=== PATIENT | female | born 1970 ===

== ENCOUNTER 2020-05-31 14:59 | Emergency (ER) | payer OTHER, SELFPAY ==
--- NOTE | 2020-05-31 15:46 | ED.GENADULT ---
HPI - General Adult General Stated complaint: hi bp Time Seen by Provider: 05/31/20 15:46 Related Data Allergies Allergy/AdvReac Type Severity Reaction Status Date / Time Penicillins [PENICILLINS] Allergy Intermediate RE [facility] Unverified 01/28/20 19:25 ING penicillin V Allergy Unknown Verified 01/09/19 00:00 sumatriptan [SUMATRIPTAN] AdvReac Severe PT STATES Unverified 01/28/20 19:25 HEART ATTACK Course Course Course Narrative: 1540-This is a rapid medical exam. 50 yo female to male (transgender) with past medical history of hypertension, intermittent compliance with medications. Since saturday feeling unwell, dizziness, headache, intermittent chest pain, blood pressure running 150-160's and labile at home. Been off hormones for 1 month. Will check labs, EKG, CXR. Additional HPI, ROS, PE to primary provider.
[2020-05-31 15:48] VITALS: BP 144/92; PULSE 70; RESP 18; TEMP 37.1; O2SAT 98; BMI 19.9
--- NOTE | 2020-05-31 15:49 | ECG_ITS ---
Test Reason : CP Blood Pressure : / mmHG Vent. Rate : 055 BPM Atrial Rate : 055 BPM P-R Int : 116 ms QRS Dur : 076 ms QT Int : 394 ms P-R-T Axes : 052 065 048 degrees QTc Int : 376 ms Sinus bradycardia Otherwise normal ECG No previous ECGs available Referred By: Kemi Figueroa Electronically Signed By:MANAS CARRASCO
--- NOTE | 2020-05-31 15:49 | XR_ITS ---
EXAMINATION: XR CHEST CLINICAL INFORMATION: Chest pain COMPARISON: Previous chest x-rays most recent July [address] September 2017 TECHNIQUE: 2 views of the chest were obtained. FINDINGS: The cardiac and mediastinal contours are stable. There is a 7 mm dense nodule at the right lung base that is stable compatible with a calcified granuloma. The lungs are otherwise clear. There is no pleural effusion or pneumothorax. Bony structures are unremarkable. XR/XR chest 2V IMPRESSION: No evidence for acute disease in the chest.
[2020-05-31 16:30] LABS: MANUAL DIFF FLAG NO
[2020-05-31 16:34] LABS: Basophils Absolute Auto 0.1 X10*3/uL (0.0-0.2); Basophils Percent Auto 0.5 % (0-2); Eosinophils Absolute Auto 0.1 X10*3/uL (0.0-0.4); Eosinophils Percent Auto 0.5 % (0-4); Hematocrit 45.8 % (37-47); Hemoglobin 15.5 g/dl (12.0-16.0); Imm Gran Abs Auto 0.03 X10*3/uL (0.00-0.03); Imm Gran Pct Auto 0.2 % (0.0-0.4); Lymphocytes Absolute Auto 4.2 X10*3/uL (1.2-4.9); Lymphocytes Percent Auto 34.1 % (20-40); Mean Corpuscular HGB Conc 33.8 g/dl (31.0-35.0); Mean Corpuscular Hemoglobin 30.6 pg (27.0-33.0); Mean Corpuscular Volume 90.3 fL (80-98); Mean Platelet Volume 9.3 fL (9.4-12.3); Monocytes Absolute Auto 0.8 X10*3/uL (0.1-1.2); Monocytes Percent Auto 6.1 % (2-11); Neutrophils Absolute Auto 7.3 X10*3/uL (2.0-8.3); Neutrophils Percent Auto 58.6 % (45-73); Platelet Count 315 X10*3/uL (160-400); Red Blood Count 5.07 X10*6/uL (4.20-5.50); Red Cell Distribution Width 13.4 % (11.0-16.0); White Blood Count 12.4 X10*3/uL (4.8-10.8)
[2020-05-31 16:37] LABS: INTERNATIONAL NORM RATIO 1.1 (0.9-1.1)
[2020-05-31 17:00] LABS: Anion Gap 13 (12-20); Blood Urea Nitrogen 12 mg/dL (9-16); Calcium 9.6 mg/dL (8.4-10.2); Carbon Dioxide 28 mmol/L (22-29); Chloride 103 mmol/L (96-108); Creatinine Clr Calc Pharmacy 71.7; Estimated Glomerular Filt Rate > 60; Glucose Random 81 mg/dL (60-115); Sodium 140 mmol/L (135-145)
[2020-05-31 17:07] LABS: Troponin-I High Sensitivity < 3.5 ng/L (<3.5-17.0)
== END 2020-05-31 22:38 | disposition left against medical advice (07) ==
PROVIDERS: Nurse Practitioner Family; Emergency Provider Emergency Medicine
DX: I10 Essential (primary) hypertension (principal); R00.2 Palpitations; F64.0 Transsexualism; Z79.899 Other long term (current) drug therapy
CPT/HCPCS: 36415; 71046; 80048; 84484; 85025; 85610; 93005; 99282; 99283

== ENCOUNTER → 2020-08-23 14:08 | Outpatient (BNVA) | payer OTHER, SELFPAY | PROVIDERS: PCP Family Medicine; Visit Provider Student in an Organized Health Care Education/Training Program | DX: M15.4 Erosive (osteo)arthritis (principal); F11.90 Opioid use, unspecified, uncomplicated | CPT/HCPCS: 99212 ==

== ENCOUNTER → 2020-10-17 14:24 | Outpatient (BNVA) | payer OTHER, SELFPAY | PROVIDERS: PCP Family Medicine; Visit Provider Anesthesiology | DX: M15.4 Erosive (osteo)arthritis (principal); F11.90 Opioid use, unspecified, uncomplicated | CPT/HCPCS: 99202 ==

== ENCOUNTER 2021-03-24 12:23 | Outpatient (REF) | payer SELFPAY ==
[2021-03-24 13:54] LABS: COVID-19 Test Negative (Negative)
== END 2021-03-24 12:24 | disposition home or self-care (01) ==
LOC: HO.LAB 12:23
PROVIDERS: Visit Provider Internal Medicine
DX: Z20.822 Contact with and (suspected) exposure to COVID-19 (principal)
CPT/HCPCS: 36415; 87635; C9803

== ENCOUNTER 2021-07-18 14:56 | Outpatient (REF) | payer OTHER, SELFPAY ==
--- NOTE | ~2021-07-18 | XR_ITS ---
EXAMINATION: XR HAND, LEFT CLINICAL INFORMATION: Pain. COMPARISON: None TECHNIQUE: PA, lateral, and oblique views of the left hand. FINDINGS: No fracture or dislocation is seen. There is arthritis at the IP joints, particularly the DIP joints of the 2nd through 5th fingers, PIP joint of the 5th finger and IP joint of the thumb. There is joint space narrowing and osteophyte formation. There may be some erosive changes at the DIP joints of the 2nd and 3rd fingers. There is severe arthritis at the 1st RETIREMENT joint with joint space narrowing and osteophyte formation. There may be ulnar-minus variance. There is slight dorsal angulation of the distal ulna appreciated on the lateral view. Joint spaces are otherwise normal. Soft tissues are normal. XR/XR hand LT min 3V IMPRESSION: Severe osteoarthritis at the IP joints and 1st RETIREMENT joint. There is question of erosive osteoarthritis at the DIP joints of the 2nd and 3rd fingers.
== END 2021-07-18 14:57 | disposition home or self-care (01) ==
LOC: HO.XRAY 14:56
PROVIDERS: Absent Provider Family Medicine; PCP Family Medicine; Visit Provider Nurse Practitioner Primary Care
DX: M19.90 Unspecified osteoarthritis, unspecified site (principal); M79.645 Pain in left finger(s)
CPT/HCPCS: 73130

== ENCOUNTER 2021-07-19 14:30 | Outpatient (REF) | payer OTHER, SELFPAY ==
[2021-07-19 16:46] LABS: TSH reflex Free T4 0.48 uIU/mL (0.32-4.0)
== END 2021-07-19 14:31 | disposition home or self-care (01) ==
LOC: HO.LAB 14:30
PROVIDERS: PCP Family Medicine; Referring Provider Family Medicine; Visit Provider Internal Medicine Cardiovascular Disease
DX: R00.2 Palpitations (principal)
CPT/HCPCS: 36415; 84443; 93005; 99202

== ENCOUNTER → 2021-08-23 13:12 | Outpatient (BNVA) | payer OTHER, SELFPAY | PROVIDERS: PCP Family Medicine; Visit Provider Nurse Practitioner Family | DX: M15.4 Erosive (osteo)arthritis (principal); F11.20 Opioid dependence, uncomplicated | CPT/HCPCS: 99212 ==

== ENCOUNTER → 2021-08-24 08:28 | Outpatient (BNVA) | payer OTHER, SELFPAY | PROVIDERS: PCP Family Medicine; Visit Provider Anesthesiology | DX: F11.20 Opioid dependence, uncomplicated (principal); M15.4 Erosive (osteo)arthritis | CPT/HCPCS: 99212 ==

== ENCOUNTER → 2021-09-04 09:34 | Outpatient (BNVA) | payer OTHER, SELFPAY | PROVIDERS: PCP Physician Assistant; Referring Provider Physician Assistant; Visit Provider Physician Assistant | DX: K21.9 Gastro-esophageal reflux disease without esophagitis (principal); K59.09 Other constipation; R10.9 Unspecified abdominal pain; R13.10 Dysphagia, unspecified; Z90.49 Acquired absence of other specified parts of digestive tract | CPT/HCPCS: 99202 ==

== ENCOUNTER → 2021-09-12 07:31 | Outpatient (REF) | payer OTHER, SELFPAY ==
--- NOTE | 2021-09-12 | HM_ITS ---
TEST PERFORMED: Cardiac event monitoring. REQUESTING PHYSICIAN: Dr. Castanon. ENROLLMENT: 09/12/2021 to 10/12/2021; 30 days. FINDINGS: In the above monitoring period, underlying rhythm was sinus. Heart rates ranged from 67 to 93 beats per minute. There is 1 episode of dizziness described, but that correlated with sinus rhythm. Otherwise, no arrhythmias documented during the above period. CONCLUSION: Study shows sinus rhythm only. No arrhythmias identified. MD SARMAD Tsang/ABDIAZIZ / [id number]
--- NOTE | 2021-09-12 07:37 | CA_ITS ---
Transthoracic Echocardiogram Patient (Last, First, Middle): Harriet Valdez (Deloris), Gender: Female Date of : 1970 Age: 51 Procedure Date: 09/12/2021 Procedure Type: Transthoracic Echocardiogram Location: OP Height: 162.56 cm Weight: 49.9 kg BSA: 1.52 m2 Heart Rate: bpm BP: 124 / 58 mmHg Beverage Manager: SB Referring MD: Fred Castanon MD Symptoms: R00.2 - Palpitations Study Quality: Good ECG Rhythm: Sinus Conclusions: - Normal left ventricular size, thickness, systolic function, and wall motion. The visually estimated ejection fraction is between 55-60%. - Normal right ventricular cavity size and systolic function. Findings Left Ventricle Normal left ventricular size, thickness, systolic function, and wall motion. The visually estimated ejection fraction is between 55-60%. Diastolic function is normal for age. Right Ventricle Normal right ventricular cavity size and systolic function. Atria Both atria are normal in size. Aortic Valve Normal aortic valve structure and function. There is no aortic valve stenosis. There is no aortic valve regurgitation. Mitral Valve Normal mitral valve structure and function. There is no mitral valve regurgitation. There is no mitral valve stenosis. Pulmonic Valve Normal pulmonic valve structure and function. Tricuspid Valve Normal tricuspid valve structure and function. There is no tricuspid valve regurgitation. Normal right atrial pressure. There is no evidence of pulmonary hypertension. Great Vessels All visible segments of the aorta are normal in size. The visualized portions of the pulmonary artery and branches are normal. Venous The inferior vena cava is normal in size and collapses greater than 50% with inspiration. Pericardium/Pleural There is no evidence of pericardial effusion. Prior Study Comparison No significant change compared to prior study dated: 09/17/2017. Measurements 2D Linear Measurements IVSd: 0.55 0.6-0.9/0.6-1.0 cm LVIDd: 4.77 3.9-5.3/4.2-5.9 cm LVIDd Index: 3.14 2.4-3.2/2.2-3.1 cm/m2 LVIDs: 3.32 2.0-3.6 cm LVPWd: 0.58 0.7-1.1 cm LA Diam: 2.60 2.7-3.8/3.0-4.0 cm LAIDs Index: 1.71 1.5-2.3 cm/m2 LV Mass: 100.61 67-162/88-224 g LV Mass Index: 66.19 43-95/49-115 g/m2 LVOT Diam: 2.00 3.0+(-)1.3 cm Mitral Valve MV Pk E: 0.57 MV PK A: 0.75 MV Decel Time: 173.00 E/A: 0.80 E'Lateral: 7.40 E'Medial: 5.11 E/E' Med: 11.10 E/E' Lat: 7.70 PHT: 51.00 MVA PHT: 4.31 Decel Geary: 3.30 Aortic Valve AoV Pk Kiel: 1.24 AoV Mn Kiel: 0.86 AoV VTI: 0.22 AoV Pk Grad: 6.00 Aov Mn Grad: 3.00 SANDI Cont.VTI: 2.48 LVOT LVOT Pk Kiel: 0.91 LVOT Mn Kiel: 0.59 LVOT VTI: 0.17 LVOT Pk Grad: 3.00 LVOT Mn Grad: 2.00 LVOT Diam: 2.00 LVOT Area: 3.14 Diastolic Function MV Pk E: 0.57 MV Pk A: 0.75 E/A: 0.80 E'Medial: 5.11 E/E' Med: 11.10 E' Laterial: 7.40 E/E' Lat: 7.70 Right Ventricle TAPSE (mm): 25.10 TVS' Kiel: 11.70 Tricuspid Valve TR Pk Kiel: 2.00 TR Pk Grad: 16.00 RA Press: 3.00 RVSP: 19.00 Great Vessels Aorta Sinus of Valsalva: 2.63 2.0-3.[address] Ridge: 2.46 1.7-3.4 cm Ao Asc: 2.80 2.1-3.4 cm Pulmonary Veins Pulm Vein S/D 1.70 Pulmonary Valve PV Pk Kiel: 0.75 Peak PV Grad: 2.00 Updated in Other Vendor System with Status of Final Fred Castanon MD electronically signed on 09/17/2021 12:11:55 AM with status of Final
== END ==
LOC: HO.CARD 07:31
PROVIDERS: PCP Physician Assistant; Visit Provider Internal Medicine Cardiovascular Disease
DX: R00.2 Palpitations (principal)
CPT/HCPCS: 93270; 93306

== ENCOUNTER 2021-10-16 07:35 | Outpatient (REF) | payer OTHER, SELFPAY ==
--- NOTE | ~2021-10-16 | MR_ITS ---
EXAMINATION: MR LUMBAR SPINE WITHOUT CONTRAST CLINICAL INFORMATION: 51-year-old with complaints of low back pain and left-sided lumbar radicular symptoms. Spondylosis without myelopathy or radiculopathy. COMPARISON: None TECHNIQUE: MRI of the lumbar spine was obtained using routine sequences without contrast. FINDINGS: Coronal Alignment: Very slight thoracolumbar levocurvature noted. Sagittal Alignment: Normal. Lumbosacral Junction: Normal. 5 nonrib-bearing lumbar-type vertebral bodies. Vertebral Bodies: Normal height. Disc Spaces and Endplates: Moderate disc space height loss at L4-L5 and L3-L4 with mild degrees of spondylosis at these levels. Remaining lumbar intervertebral discs demonstrate normal height and signal. Minimal disc desiccation noted at L4-L5 and L3-L4. Spinal Canal: No abnormal developmental findings. Bone Marrow: No significant marrow-replacing process or bone marrow edema. Conus Medullaris: Terminates at L1-L2. Morphology and signal is normal. Intradural Nerve Roots: Within normal limits. L5-S1: Normal disc contour. Moderate left-sided facet arthropathy. No canal or neuroforaminal stenosis. L4-L5: Mild diffuse disc bulging is noted with a superimposed small central extruded disc herniation with mild caudal migration and mild flattening of the central dural sac. Mild ligamentum flavum thickening is noted. There is a small right foraminal/extra foraminal disc herniation superimposed on disc bulging. No significant spinal canal stenosis. Mild bilateral neuroforaminal narrowing is noted, with right lateral disc protrusion abutting the exiting right L4 nerve root. L3-L4: Mild diffuse disc bulging is noted, with a superimposed left-sided foraminal/extra foraminal disc herniation, which contacts the extra foraminal segment of the exiting left L3 nerve root. Slight flattening of the ventral dural sac is noted with mild facet hypertrophic change on the left without significant central spinal canal stenosis. Mild left-sided neural foraminal narrowing is noted with slight narrowing of the left subarticular zone. L2-L3: No disc bulge or herniation. No significant facet arthrosis, canal or neuroforaminal stenosis. L1-L2: No disc bulge or herniation. No facet arthrosis, canal or neuroforaminal stenosis. T12-L1: Normal disc contour. No facet arthrosis, canal or neuroforaminal stenosis. Paraspinal/Retroperitoneal: The visualized paravertebral soft tissues are grossly unremarkable. MR/MR lumbar spine wo con IMPRESSION: 1. Discogenic degenerative changes at L4-L5 and L3-L4 as discussed above, with mild degrees of spondylosis and disc bulging at these levels, with the right sided foraminal/extraforaminal disc herniation at L4-L5 and small central extruded disc herniation at this level and left-sided foraminal/extra foraminal disc herniation at L3-L4. Slight encroachment on the extraforaminal right L4 nerve root and extraforaminal left L3 nerve root. No significant spinal canal stenosis. 2. Moderate left-sided facet arthropathy at L5-S1 and mild facet arthropathy on the left at L3-L4. Mild left-sided neural foraminal narrowing at L3-L4 and mild bilateral neural foraminal narrowing at L4-L5.
== END 2021-10-16 07:36 | disposition home or self-care (01) ==
LOC: HO.MRI 07:35
PROVIDERS: Visit Provider Anesthesiology
DX: M47.816 Spondylosis without myelopathy or radiculopathy, lumbar region (principal); M51.36 Other intervertebral disc degeneration, lumbar region
CPT/HCPCS: 72148

== ENCOUNTER 2021-10-19 14:00 | Outpatient (RCR) | payer OTHER, SELFPAY ==
--- NOTE | 2021-09-21 09:04 | MHC.OT.EP ---
[address] [phone] Occupational Therapy Plan of Care Date of Evaluation: 09/21/21 Diagnosis: B/L Erosive OA Assessment: 51 yo male (he/him) presents w/ worsening hand pain over the past few months. He has hx of OA and has been seen in OT before in 2019 w/ education and recommendations, but joints have worsened since then and has developed multiple Herberbens and Bouchards nodules on IPs. He reports very high resting pain and this worsens further with movement and even light use of hands. Deloris is very motivated and hopeful to reduce pain. He will benefit from continued OT for further education on joint protecion and activity modification, as well as pain management, edema management and progression of home exercise program. Frequency and Duration: The patient will be seen 2x/wk for 3 weeks Short Term Goals: Ind w/ HEP Ind w/ activity modifications to ease pain with functional use B/L gross grasp >35lb Resting pain <4/10 Pt to demo ease w/ light bimanual tasks (buttons, ties, zippers, etc) Application Assistant Goals: same as above Treatment Plan: Therapeutic Exercise Therapeutic Activity Home Exercise Program Splinting Patient Education Edema Control ADL Training Paraffin Fluidotherapy MHP Cold Packs Joint Mobilization Soft Tissue Mobilization Kinesiotaping Electronically Signed By: Maggie Sanchez OTR/L CHT Please Sign and return to therapist. Thank you once again for your referral.
--- NOTE | 2021-11-07 13:37 | MHC.OT.DC ---
[address] [phone] F: [phone] Occupational Therapy Discharge Note Provider: Thu Chou NP Diagnosis: B/L Erosive OA Date of Evaluation: 09/21/21 Date of Discharge: 11/07/21 Treatments to Date: 5 Cancellations to Date: 2 No Shows to Date: 2 Discharge Status: Independent with HEP Visit Non-compliance Discharge Summary: Deloris has been refered to OT for management of B/L erosive OA. They have done fairly well w/ carry over of joint protection techniques, splinting for comfort and protection, and home exercise to maintain mobility. They have missed their past four appointments and we will be discharging from services at this time. *has compression gloves, home wax unit, CMC orthoses, coban wrap for digits, Volteran cream Electronically Signed By: Maggie Sanchez OTR/L CHT Reviewed/agree with student documentation: Therapist: Please Sign and return to therapist, thank you for your referral.
== END 2021-11-07 13:38 | disposition home or self-care (01) ==
LOC: HO.OT 14:00
PROVIDERS: PCP Family Medicine; Visit Provider Nurse Practitioner Family
DX: M15.4 Erosive (osteo)arthritis (principal)
CPT/HCPCS: 29130; 97018; 97110; 97140; 97165; 97760

== ENCOUNTER 2021-11-24 09:05 | Outpatient (REF) | payer OTHER, SELFPAY ==
--- NOTE | ~2021-11-24 | XR_ITS ---
EXAMINATION: XR HAND, BILATERAL CLINICAL INFORMATION: Hand pain. COMPARISON: 07/18/2021, 09/18/2018, 01/15/2018. TECHNIQUE: 3 views of each hand. FINDINGS: LEFT HAND: There is no evidence of acute fracture or dislocation of the left hand. There is again noted to be severe degenerative change of the 1st carpometacarpal joint with loss of joint space, marginal sclerosis and prominent spurring with subchondral cyst formation. There is severe degenerative change with loss of joint space and articular surface irregularity involving the 2nd through 5th distal interphalangeal joints and the 5th proximal interphalangeal joint. Some spurring is seen about the 1st interphalangeal joint. There is spurring noted about the 4th proximal interphalangeal joint. These findings are unchanged from study of 07/18/2021 but show progression since study of 01/15/2018. RIGHT HAND: Three views of the right hand do not demonstrate any evidence of acute fracture or dislocation. Degenerative change with joint space narrowing and marginal spurring seen involving the 1st carpometacarpal joint. Joint space narrowing with articular irregularity is seen involving the 2nd through 5th proximal interphalangeal joints. There is also noted to be some degenerative spurring about the 5th proximal interphalangeal joint. There is progression in disease involving the 3rd distal interphalangeal joint compared to study of 01/15/2018. XR/XR hand LT min 3V IMPRESSION: Changes of osteoarthritis in both hands as described with primary involvement of the 1st carpometacarpal joint and distal interphalangeal joints.
--- NOTE | ~2021-11-24 | XR_ITS ---
EXAMINATION: XR HAND, BILATERAL CLINICAL INFORMATION: Hand pain. COMPARISON: 07/18/2021, 09/18/2018, 01/15/2018. TECHNIQUE: 3 views of each hand. FINDINGS: LEFT HAND: There is no evidence of acute fracture or dislocation of the left hand. There is again noted to be severe degenerative change of the 1st carpometacarpal joint with loss of joint space, marginal sclerosis and prominent spurring with subchondral cyst formation. There is severe degenerative change with loss of joint space and articular surface irregularity involving the 2nd through 5th distal interphalangeal joints and the 5th proximal interphalangeal joint. Some spurring is seen about the 1st interphalangeal joint. There is spurring noted about the 4th proximal interphalangeal joint. These findings are unchanged from study of 07/18/2021 but show progression since study of 01/15/2018. RIGHT HAND: Three views of the right hand do not demonstrate any evidence of acute fracture or dislocation. Degenerative change with joint space narrowing and marginal spurring seen involving the 1st carpometacarpal joint. Joint space narrowing with articular irregularity is seen involving the 2nd through 5th proximal interphalangeal joints. There is also noted to be some degenerative spurring about the 5th proximal interphalangeal joint. There is progression in disease involving the 3rd distal interphalangeal joint compared to study of 01/15/2018. XR/XR hand RT min 3V IMPRESSION: Changes of osteoarthritis in both hands as described with primary involvement of the 1st carpometacarpal joint and distal interphalangeal joints.
[2021-11-24 12:02] LABS: MANUAL DIFF FLAG NO
[2021-11-24 12:21] LABS: Basophils Percent Auto 0.2 % (0-2); Eosinophils Percent Auto 0.5 % (0-4); Hematocrit 45.5 % (37.0-47.0); Hemoglobin 14.7 g/dl (12.0-16.0); Imm Gran Abs Auto 0.03 X10*3/uL (0.00-0.03); Imm Gran Pct Auto 0.4 % (0.0-0.4); Lymphocytes Absolute Auto 2.1 X10*3/uL (1.2-4.9); Mean Corpuscular HGB Conc 32.3 g/dl (31.0-35.0); Mean Corpuscular Hemoglobin 29.3 pg (27.0-33.0); Mean Corpuscular Volume 90.6 fL (80.0-98.0); Mean Platelet Volume 9.2 fL (9.4-12.3); Monocytes Absolute Auto 0.3 X10*3/uL (0.1-1.2); Monocytes Percent Auto 4.1 % (2-11); Neutrophils Absolute Auto 5.9 x10*3/uL (2.0-8.3); Neutrophils Percent Auto 69.8 % (45-73); Platelet Count 317 X10*3/uL (160-400); Red Blood Count 5.02 X10*6/uL (4.20-5.50); White Blood Count 8.4 X10*3/uL (4.8-10.8)
[2021-11-24 12:36] LABS: Rheumatoid Factor < 15.0 IU/mL (<15.0)
[2021-11-24 12:41] LABS: Alanine Aminotransferase 17 U/L (0-31); Albumin Level 4.4 g/dL (3.5-5.0); Alkaline Phosphatase 78 U/L (39-117); Anion Gap 10 (12-20); Aspartate Amino Transferase 19 U/L (5-31); Bilirubin Total 0.5 mg/dL (0.0-1.0); Blood Urea Nitrogen 12 mg/dL (9-16); C Reactive Protein 0.08 mg/dL (< or = 0.50); Calcium 9.7 mg/dL (8.4-10.2); Carbon Dioxide 29 mmol/L (22-29); Chloride 106 mmol/L (96-108); Estimated Glomerular Filt Rate > 60; Glucose Random 94 mg/dL (60-115); Potassium 4.9 mmol/L (3.3-5.1); Sodium 140 mmol/L (135-145); Total Protein 7.4 g/dL (6.5-8.0)
[2021-11-24 13:06] LABS: Erythrocyte Sedimentation Rate 5 MM/HR (0-20)
[2021-11-28 14:07] LABS: Cyclic Citrullinated Peptide <16 UNITS
== END 2021-11-24 09:06 | disposition home or self-care (01) ==
LOC: HO.LAB 09:05
PROVIDERS: Physician Assistant; PCP Family Medicine; Visit Provider Nurse Practitioner Family
DX: M79.641 Pain in right hand (principal); M79.642 Pain in left hand; M15.4 Erosive (osteo)arthritis; M47.816 Spondylosis without myelopathy or radiculopathy, lumbar region; K21.9 Gastro-esophageal reflux disease without esophagitis; K59.09 Other constipation; R10.9 Unspecified abdominal pain; Z90.49 Acquired absence of other specified parts of digestive tract; K52.9 Noninfective gastroenteritis and colitis, unspecified
CPT/HCPCS: 36415; 73130; 80053; 85025; 85652; 86140; 86200; 86431; 99212

== ENCOUNTER → 2021-12-11 12:25 | Outpatient (BNVA) | payer OTHER, SELFPAY | PROVIDERS: PCP Family Medicine; Visit Provider Nurse Practitioner Family | DX: M15.4 Erosive (osteo)arthritis (principal); M25.512 Pain in left shoulder; M47.816 Spondylosis without myelopathy or radiculopathy, lumbar region | CPT/HCPCS: 99212 ==

== ENCOUNTER 2021-12-28 09:59 | Day surgery (SDC) | payer OTHER, SELFPAY ==
--- NOTE | 2021-12-27 13:03 | HO.ANESPROP2 ---
Documented by User: Soraida Browne NP 12/27/21 13:12 HPI - Anesthesia Eval Consult details Narrative: Deloris TONY transgender (he/him) 51yo M for Upper Endoscopy [facility] Active Problems Active Problems: All Active Problems (Updated 12/25/21 @ 09:23 by Joana Haq, RONALD) Chronic, continuous use of opioids (Acute) Palpitations (Acute) Abdominal pain (Acute) Chronic GERD (Acute) Chronic constipation (Acute) Dysphagia (Acute) History of cholecystectomy (Acute) Disc degeneration, lumbar (Acute) Spondylosis of lumbar spine (Acute) Erosive osteoarthritis of hands, bilateral (Acute) Past Medical History Medical History Arthritis Depression Disc degeneration, lumbar Dysphagia Erosive osteoarthritis of hands, bilateral GERD (gastroesophageal reflux disease) History of palpitations Hyperlipemia Hypertension Past heart attack Spondylosis of lumbar spine Family History Family History Mother Hypertension Breast cancer Maternal Grandmother Myocardial infarct Sister Heart problem Surgical History Surgical History H/O bilateral mastectomy H/O: hysterectomy History of cholecystectomy History of esophagogastroduodenoscopy (EGD) Hx of colonoscopy Social History Social History Alcohol intake: never Patient Tobacco Use Status: Former Tobacco user Use of substances other than those prescribed or required for medical reasons: Yes Substance Use Type: Marijuana Substance Use Frequency: Occasionally Advance Directives: No Advance Directives Information Provided: Yes Patient : No Meds Allergies Allergy/AdvReac Type Severity Reaction Status Date / Time Penicillins [PENICILLINS] Allergy Intermediate HIVES,SWELL Verified 12/11/21 12:35 ING sumatriptan [SUMATRIPTAN] AdvReac Severe PT STATES Verified 12/11/21 12:35 HEART ATTACK Home Medications Medication Instructions Recorded Confirmed Last Taken Type enalapril maleate 10 mg tablet 10 mg PO DAILY 08/23/20 12/11/21 Unknown History omeprazole 20 mg capsule,delayed 20 mg PO DAILY 08/23/20 12/11/21 Unknown History release buspirone 10 mg tablet 10 mg PO TID 12/11/21 12/11/21 Unknown History fluticasone propionate 50 1 spray intranasal DAILY 12/11/21 12/11/21 Unknown History mcg/actuation nasal spray,suspension testosterone cypionate 200 mg/mL 100 mg IM Q2W 12/11/21 12/11/21 Unknown History intramuscular oil Exam Exam Date and Time: December 27, 2021 1303 Pertinent Lab Results Pertinent Lab Results: Laboratory Tests 11/24/21 11/24/21 12:00 12:00 WBC 8.4 Hgb 14.7 Hct 45.5 Plt Count 317 Sodium 140 Potassium 4.9 Chloride 106 Carbon Dioxide 29 BUN 12 Creatinine 0.74 Narrative Narrative: EKG 07/2021 NSR, 67/min, nonspecific T wave abnormality, QTc 412 msec Holter 30 days 09/2021 CONCLUSION:? Study shows sinus rhythm only.? No arrhythmias identified. ECHO 09/2021 Conclusions: - Normal left ventricular size, thickness, systolic function, and wall motion. The visually estimated ejection fraction is between 55-60%.? - Normal right ventricular cavity size and systolic function.? ? Assessment and Plan Assessment Anesthesia Assessment: Chart Reviewed Documented by User: Kasia Hogue MD 12/28/21 12:39 [facility] Past Medical History Medical History Arthritis Depression Disc degeneration, lumbar Dysphagia Erosive osteoarthritis of hands, bilateral GERD (gastroesophageal reflux disease) History of palpitations Hyperlipemia Hypertension Past heart attack Spondylosis of lumbar spine Functional capacity: independent ambulation Patient : No Family History Family History Mother Hypertension Breast cancer Maternal Grandmother Myocardial infarct Sister Heart problem Family history of problems with anesthesia: No Surgical History Surgical History H/O bilateral mastectomy H/O: hysterectomy History of cholecystectomy History of esophagogastroduodenoscopy (EGD) Hx of colonoscopy History of Problems with Anesthesia: No Social History Social History Alcohol intake: never Patient Tobacco Use Status: Former Tobacco user Use of substances other than those prescribed or required for medical reasons: Yes Substance Use Type: Marijuana Substance Use Frequency: Occasionally Advance Directives: No Advance Directives Information Provided: Yes Patient : No Meds Allergies Allergy/AdvReac Type Severity Reaction Status Date / Time Penicillins [PENICILLINS] Allergy Intermediate HIVES,SWELL Verified 12/11/21 12:35 ING sumatriptan [SUMATRIPTAN] AdvReac Severe PT STATES Verified 12/11/21 12:35 HEART ATTACK Home Medications Medication Instructions Recorded Confirmed Last Taken Type enalapril maleate 10 mg tablet 10 mg PO DAILY 08/23/20 12/11/21 Unknown History omeprazole 20 mg capsule,delayed 20 mg PO DAILY 08/23/20 12/11/21 Unknown History release buspirone 10 mg tablet 10 mg PO TID 12/11/21 12/11/21 Unknown History fluticasone propionate 50 1 spray intranasal DAILY 12/11/21 12/11/21 Unknown History mcg/actuation nasal spray,suspension testosterone cypionate 200 mg/mL 100 mg IM Q2W 12/11/21 12/11/21 Unknown History intramuscular oil Exam Airway Mallampati Class: II TM Dist: >3cm Neck ROM: Full Heart: RRR Lungs: CTA Assessment and Plan Final Anesthetic Review Family History of Problems with Anesthesia: No History of Problems with Anesthesia: No ASA Class: II Final Preanesthetic Review: No Changes in Pt Med Stat, Meds/Allgs Chart Reviewed, Consent Obtained/Reviewed and Anes Risks/Benef Reviewed Patient Risk: Low Procedure Risk: Low Anesthetic Plan Anesthetic Plan: MAC: Disposition: Standard PACU
[2021-12-28 10:41] VITALS: BMI 18.3
--- NOTE | 2021-12-28 10:41 | MHC.SHP ---
Pre-Procedural Eval Section A Date of Service: 12/28/21 Section B Chief Complaint: dysphagia Relevant Family History (Specify if Yes): No Relevant Social History: Other (specify) (THC) Present Medications: see Short Stay Collaborative assessment Medical History: Significant History (Arthritis Depression Disc degeneration, lumbar Dysphagia Erosive osteoarthritis of hands, bilateral GERD (gastroesophageal reflux disease) History of palpitations Hyperlipemia Hypertension Past heart attack Spondylosis of lumbar spine) History of Previous Operations: Relevant previous surgery/procedure and date(s) (H/O bilateral mastectomy H/O: hysterectomy History of cholecystectomy History of esophagogastroduodenoscopy (EGD) Hx of colonoscopy) Allergies: Allergies Allergy/AdvReac Type Severity Reaction Status Date / Time Penicillins [PENICILLINS] Allergy Intermediate HIVES,SWELL Verified 12/11/21 12:35 ING sumatriptan [SUMATRIPTAN] AdvReac Severe PT STATES Verified 12/11/21 12:35 HEART ATTACK Review of Systems Sugical H&P ROS: Negative: Constitution, Cardiovascular, Respiratory, Neurological, Psychiatric, Hem-Onc, Allergic/Immunologic, Gastrointestinal, Genitourinary, Musculoskeletal, Integumentary, Endocrine and Eyes/Ears/Nose/Throat Exam Surgical H&P Exam: Normal: HEENT, Normal: Heart, Normal: Lungs, Normal: Extremities, Normal: Abdomen, Normal: Skin and Normal: Neurological Plan Diagnosis/Plan: Unchanged I have reviewed the history and physical and performed a pertinent physical examination on my patient. No changes have occurred unless specified.
[2021-12-28] MEDS: Lactated Ringers 1,000 ML 100 ML IVCONT (10:46)
[2021-12-28 10:48] VITALS: BP 110/70; PULSE 58; RESP 16; TEMP 36.2; O2SAT 99
--- NOTE | 2021-12-28 12:02 | W.PM.OPN ---
Operative Note Operative Note Date of Service: 12/28/21 Narrative: Procedure Description: EGD Indication: dysphagia Anesthesia: MAC FLEXIBLE TRANSORAL UPPER GASTROINTESTINAL ENDOSCOPY UPPER ENDOSCOPY Consent: Indications for the procedure and potential complications of bleeding, perforation, reaction to medications and missed diagnosis were discussed with the patient and informed consent was obtained. Instrument: Olympus GIF H 190 J mid size upper endoscope Monitoring: Vital signs and clinical assessment, continuous EKG monitoring, Pulse oximetry, Carbon Dioxide monitoring and blood pressure monitoring were done throughout the procedure. Procedure: The patient was placed in the left lateral decubitis position and pre-procedure medications were administered and a bite block was placed. The endoscope was inserted into the mouth and advanced under direct vision to the third part of duodenum. A careful inspection was made as the upper endoscope was withdrawn including a retroflexed examination of the proximal stomach; Findings and interventions are described below. Findings: Larynx:normal Esophagus: GE junction at 38 cm, diaphragm hiatus at 38 cm, mild esophagitis. dilation done to 16 mm at LES and UES with resistance felt but no tears seen. Stomach: Patchy gastric erythema. Biopsies were obtained. Grade 2 flap valve on retroflexed examination of the cardia. There was some retained food. The pyloric outlet was tight and dilated to 16 mm where resistance was felt but no tears. Duodenum: Normal bulb and descending duodenum, Intervention: Biopsies as noted above, balloon dilation of esophagus and pylorus Impression/Findings: esophageal dilation pyloric dilation gastritis PLAN: make sure patient is taking PPI, if taking can increase dose and see if helps symptoms
[2021-12-28 12:07] VITALS: BP 82/54; PULSE 86; RESP 16; TEMP 36.3; O2SAT 96
[2021-12-28 12:22] VITALS: BP 107/73; PULSE 55; RESP 16; O2SAT 98
[2021-12-28 12:37] VITALS: BP 117/77; PULSE 58; RESP 18; TEMP 36.3; O2SAT 96
--- NOTE | 2021-12-28 13:26 | HO.POSTANES ---
Post Anesthesia Evaluation Post Anesthesia Evaluation Vital Signs: Vital Signs Temp Pulse Resp BP Pulse Ox O2 Del Method 12/28/21 12:37 97.4 F 58 18 117/77 96 Room Air 12/28/21 12:22 55 16 107/73 98 Room Air 12/28/21 12:07 97.4 F 86 16 82/54 L 96 Room Air 12/28/21 10:48 97.1 F 58 16 110/70 99 Room Air Anesthesia: Monitored Mental Status: Awake Pain Control: Satisfactory Nausea/Vomiting: None Hydration: Adequate Anesthesia-Related Issues: No Anes. Related Issues
== END 2021-12-28 12:45 | disposition home or self-care (01) ==
PROVIDERS: PCP Family Medicine; Visit Provider Internal Medicine Gastroenterology
PROC: 0DJ08ZZ Inspection of Upper Intestinal Tract, Via Natural or Artificial Opening Endoscopic (ICD-10-PCS; CPT 43235; principal; 2021-12-28 11:20)
DX: R13.10 Dysphagia, unspecified (principal); K29.50 Unspecified chronic gastritis without bleeding; K20.80 Other esophagitis without bleeding; K21.9 Gastro-esophageal reflux disease without esophagitis; K44.9 Diaphragmatic hernia without obstruction or gangrene; K31.89 Other diseases of stomach and duodenum; K59.09 Other constipation; E78.5 Hyperlipidemia, unspecified; I10 Essential (primary) hypertension; I25.2 Old myocardial infarction; Z79.899 Other long term (current) drug therapy; Z88.0 Allergy status to penicillin; Z88.8 Allergy status to other drugs, medicaments and biological substances; Z87.891 Personal history of nicotine dependence; F12.90 Cannabis use, unspecified, uncomplicated; Z90.49 Acquired absence of other specified parts of digestive tract
CPT/HCPCS: 43249; 43245; 43239; 88305; 88342; C1726

== ENCOUNTER → 2022-01-22 15:11 | Outpatient (BNVA) | payer OTHER, SELFPAY | PROVIDERS: PCP Family Medicine; Referring Provider Family Medicine; Visit Provider Internal Medicine Cardiovascular Disease | DX: I95.9 Hypotension, unspecified (principal); R00.2 Palpitations | CPT/HCPCS: 93005; 99212 ==

== ENCOUNTER → 2022-02-01 08:43 | Outpatient (BNVA) | payer OTHER, SELFPAY | PROVIDERS: PCP Family Medicine; Referring Provider Family Medicine; Visit Provider Internal Medicine Gastroenterology | DX: Z11.0 Encounter for screening for intestinal infectious diseases (principal) | CPT/HCPCS: 99211 ==

== ENCOUNTER 2022-02-01 19:44 | Outpatient (REF) | payer OTHER, SELFPAY ==
[2022-02-04 14:58] LABS: H Pylori Breath Test Negative (Negative)
== END 2022-02-01 19:45 | disposition home or self-care (01) ==
LOC: HO.LNP 19:44
PROVIDERS: Visit Provider Internal Medicine Gastroenterology
DX: K21.9 Gastro-esophageal reflux disease without esophagitis (principal)
CPT/HCPCS: 83013

== ENCOUNTER → 2022-02-08 09:37 | Outpatient (BNVA) | payer OTHER, SELFPAY | PROVIDERS: PCP Family Medicine; Referring Provider Family Medicine; Visit Provider Physician Assistant | DX: K21.9 Gastro-esophageal reflux disease without esophagitis (principal); K59.09 Other constipation | CPT/HCPCS: 99212 ==

== ENCOUNTER → 2022-04-09 13:59 | Outpatient (BNVA) | payer OTHER, SELFPAY | PROVIDERS: PCP Family Medicine; Referring Provider Family Medicine; Visit Provider Nurse Practitioner Family | DX: M15.4 Erosive (osteo)arthritis (principal); M25.512 Pain in left shoulder; L98.9 Disorder of the skin and subcutaneous tissue, unspecified; M47.816 Spondylosis without myelopathy or radiculopathy, lumbar region | CPT/HCPCS: 99212 ==

== ENCOUNTER → 2022-10-02 14:52 | Outpatient (BNVA) | payer OTHER, SELFPAY | PROVIDERS: PCP Family Medicine; Visit Provider Nurse Practitioner Family | DX: M15.4 Erosive (osteo)arthritis (principal); M47.816 Spondylosis without myelopathy or radiculopathy, lumbar region; M25.561 Pain in right knee; M25.562 Pain in left knee; M51.36 Other intervertebral disc degeneration, lumbar region; M54.50 Low back pain, unspecified | CPT/HCPCS: 99212 ==

== ENCOUNTER 2022-10-11 10:42 | Outpatient (REF) | payer OTHER, SELFPAY ==
--- NOTE | ~2022-10-11 | XR_ITS ---
EXAMINATION: XR KNEE, BILATERAL CLINICAL INFORMATION: Pain. COMPARISON: None available. TECHNIQUE: 3 views of each knee. FINDINGS: RIGHT: Bone alignment is normal. No fracture or dislocation. Small osteophytes at the patellofemoral joint. No joint effusion. Small soft tissue ossifications posterior to the knee joint. Ossified intra-articular loose bodies cannot be excluded. LEFT: Bone alignment is normal. No fracture or dislocation. Small osteophytes at the patellofemoral joint. Small osteophytes at the quadriceps tendon insertion to the patella. No joint effusion. XR/XR knee LT 3V IMPRESSION: Right: Mild degenerative changes at the patellofemoral joint. Question ossified intra-articular loose bodies. No joint effusion. Left: Arthritis at the patellofemoral joint.
--- NOTE | ~2022-10-11 | XR_ITS ---
EXAMINATION: XR KNEE, BILATERAL CLINICAL INFORMATION: Pain. COMPARISON: None available. TECHNIQUE: 3 views of each knee. FINDINGS: RIGHT: Bone alignment is normal. No fracture or dislocation. Small osteophytes at the patellofemoral joint. No joint effusion. Small soft tissue ossifications posterior to the knee joint. Ossified intra-articular loose bodies cannot be excluded. LEFT: Bone alignment is normal. No fracture or dislocation. Small osteophytes at the patellofemoral joint. Small osteophytes at the quadriceps tendon insertion to the patella. No joint effusion. XR/XR knee RT 3V IMPRESSION: Right: Mild degenerative changes at the patellofemoral joint. Question ossified intra-articular loose bodies. No joint effusion. Left: Arthritis at the patellofemoral joint.
== END 2022-10-11 10:43 | disposition home or self-care (01) ==
LOC: HO.XRAY 10:42
PROVIDERS: PCP Family Medicine; Visit Provider Nurse Practitioner Family
DX: M25.561 Pain in right knee (principal); M25.562 Pain in left knee
CPT/HCPCS: 73562

== ENCOUNTER 2022-10-23 15:21 | Outpatient (REF) | payer OTHER, SELFPAY ==
--- NOTE | ~2022-10-23 | US_ITS ---
EXAMINATION: US SOFT TISSUE HEAD/NECK CLINICAL INFORMATION: Dysphagia, submandibular lymphadenopathy. COMPARISON: None available. TECHNIQUE: Linear transducer grayscale and color Doppler examination of the bilateral submandibular area and thyroid. FINDINGS: Sonographic evaluation performed for lymphadenopathy and submandibular region. Right submandibular gland normal with 1.7 x 0.4 x 0.4 cm and 0.8 x 0.3 x 0.4 cm reactive appearing lymph nodes in the vicinity. The left submandibular gland normal. There is single 1.2 x 0.6 x 0.6 cm lymph node adjacent to the gland, reactive appearing. Thyroid gland is unremarkable. US/US soft tiss head and/or neck IMPRESSION: Reactive appearing lymphadenopathy. No abnormalities in the thyroid gland or submandibular glands.
== END 2022-10-23 15:22 | disposition home or self-care (01) ==
LOC: HO.US 15:21
PROVIDERS: PCP Family Medicine; Visit Provider Nurse Practitioner Primary Care
DX: R13.10 Dysphagia, unspecified (principal); R59.0 Localized enlarged lymph nodes
CPT/HCPCS: 76536

== ENCOUNTER 2023-01-01 07:33 | Outpatient (REF) | payer OTHER, SELFPAY ==
--- NOTE | ~2023-01-01 | XR_ITS ---
EXAMINATION: XR LUMBOSACRAL SPINE CLINICAL INFORMATION: Lower back pain and left sciatica. COMPARISON: None available. TECHNIQUE: AP and lateral views of the lumbar spine and lateral view of the lumbosacral junction. FINDINGS: Vertebral body heights are normal. At L3-L4 and L4-L5, there is mild disc space narrowing, with anterior spondylosis. The remaining disc spaces are well-maintained. No acute fracture or spondylolisthesis is seen. There is facet arthropathy at L5-S1. There are aortoiliac atherosclerotic calcifications. A right upper quadrant surgical clip is seen. XR/XR lumbar spine 2-3V IMPRESSION: 1. At L3-L4 and L4-L5, there is mild degenerative disc disease, with spondylosis. 2. There is facet arthropathy at L5-S1.
== END 2023-01-01 07:34 | disposition home or self-care (01) ==
LOC: HO.XRAY 07:33
PROVIDERS: Visit Provider Pediatrics
DX: M54.42 Lumbago with sciatica, left side (principal)
CPT/HCPCS: 72100

== ENCOUNTER 2023-03-22 17:55 | Outpatient (REF) | payer OTHER, SELFPAY ==
[2023-03-25 10:58] LABS: CT PCR NOT DETECTED (Not Detect.); NG PCR NOT DETECTED (Not Detect.)
[2023-03-30 13:43] LABS: HPV mRNA E6/E7 rflx Not Detected (Not Detected)
== END 2023-03-22 17:56 | disposition home or self-care (01) ==
LOC: HO.HHCLNP 17:55
PROVIDERS: Family Medicine; Visit Provider Internal Medicine
DX: Z12.4 Encounter for screening for malignant neoplasm of cervix (principal); Z11.51 Encounter for screening for human papillomavirus (HPV); Z11.3 Encounter for screening for infections with a predominantly sexual mode of transmission
CPT/HCPCS: 0353U; 87480; 87510; 87624; 87660; 88142

== ENCOUNTER 2023-04-13 12:05 | Emergency (ER) | payer OTHER, SELFPAY ==
--- NOTE | 2023-04-13 | ECG_ITS ---
Test Reason : CHEST PAIN Blood Pressure : / mmHG Vent. Rate : 056 BPM Atrial Rate : 061 BPM P-R Int : 000 ms QRS Dur : 086 ms QT Int : 452 ms P-R-T Axes : 027 069 039 degrees QTc Int : 436 ms Normal sinus rhythm with competing junctional rhythm Otherwise normal ECG When compared with ECG of 31-MAY-2020 16:10, Competing junctional rhythm now present QT has lengthened Referred By: Surendra Uribe Electronically Signed By:DAI MCCULLOUGH MD
--- NOTE | ~2023-04-13 | CT_ITS ---
EXAMINATION: CT ABDOMEN AND PELVIS WITH CONTRAST CLINICAL INFORMATION: Left lower quadrant pain COMPARISON: CT abdomen pelvis 01/10/2018., Abdominal ultrasound 09/24/2018. TECHNIQUE: Multidetector volumetric images were obtained from the superior aspect of the liver through the pubic symphysis following administration 85 mL of Omnipaque 350 intravenous contrast. Sagittal and coronal reformatted images were obtained on the technologist's workstation. Oral contrast: No This CT examination was performed using dose optimization techniques as appropriate, variously including the following: *Automated exposure control *Adjustment of mA and/or kV according to patient size (this includes techniques or standardized protocols for targeted exams where dose is matched to indication/reason for exam; i.e. extremities or head) *Use of iterative reconstruction technique DLP: 295 mGy-cm FINDINGS: LUNG BASES: A 5 mm rounded densely calcified nodules present within the right lung base (1500 Hounsfield unit). The basis of dense calcification and in consideration of the Fleischner Society criteria, this finding is benign in appearance and warrants no additional imaging follow-up are LIVER, GALLBLADDER, AND BILIARY TREE: A 7 mm benign calcification is present in the caudate lobe. The liver is normal in size and capsular contour. Cholecystectomy clips are noted. PANCREAS: Unremarkable. SPLEEN: Unremarkable. ADRENAL GLANDS: Unremarkable. KIDNEYS AND URETERS: The kidneys are normal in size, shape, and attenuation. No hydronephrosis, hydroureter, or calculi seen. No perinephric stranding. BLADDER: Unremarkable. GASTROINTESTINAL TRACT: Moderate diverticulosis of the sigmoid colon and descending colon is noted. No colonic inflammatory changes noted. No free intraperitoneal fluid or gas collections visualized. No definitive abnormal mural intestinal mural thickening noted. The appendix is normal in appearance. Normal appearance of the terminal ileum. Normal appearance of the sigmoid and small bowel mesentery is. Normal appearance of the stomach and duodenum. ABDOMINAL WALL: A periumbilical hernia containing omental fat without associated inflammatory changes measures 1.5 cm in diameter. LYMPH NODES: Normal. VASCULAR: Moderate scattered atherosclerosis. PELVIC VISCERA: Uterus is not visualized. Soft tissue density which may represent residual cervix is noted. No adnexal lesions identified. OSSEOUS STRUCTURES: Mild intervertebral disc space narrowing and endplate osteophytosis of L4 and L4-L5 with partial visualization of at least mild posterior broad-based disc bulges at these same levels. CT/CT abdomen pelvis w IV con IMPRESSION: 1. No acute abnormalities identified. 2. Moderate diverticulosis of the descending and sigmoid colon. No evidence of acute diverticulitis. No free intraperitoneal fluid or gas collections. Normal appendix. 3. Status post cholecystectomy.
[2023-04-13 12:11] VITALS: BP 120/81; PULSE 67; RESP 16; TEMP 36.9; O2SAT 99; BMI 19.1
--- NOTE | 2023-04-13 12:11 | ED.ABDPAIN ---
HPI - Abdominal Pain General Chief Complaint: Abdominal Pain Stated Complaint: Abd pain/Nausea/Vomiting Time Seen by Provider: 04/13/23 17:33 Source: patient, RN notes reviewed, old records reviewed and microarray specialist Mode of arrival: ambulatory Limitations: language barrier History of Present Illness HPI narrative: 53-year-old biological l female who identifies as male presents for evaluation of lower abdominal pain, nausea. Patient reports 3 weeks of worsening left lower abdominal pain. He reports taking milk of magnesia with minimal improvement in his discomfort. He has had several small bowel movements. Reports subjective fevers and chills He states that he has seen his primary doctor for this and was reportedly planned for a CT scan which has not been done yet Patient reports a history of cholecystectomy but no other abdominal surgeries Denies any black or bloody stool. Related Data Home Medications Medication Instructions Recorded Confirmed buspirone 10 mg tablet 10 mg PO TID 12/11/21 04/09/22 fluticasone propionate 50 1 spray intranasal DAILY 12/11/21 04/09/22 mcg/actuation nasal spray,suspension testosterone cypionate 200 mg/mL 100 mg IM Q2W 12/11/21 04/09/22 intramuscular oil tramadol 50 mg tablet 50 mg PO TID PRN 04/09/22 04/09/22 baclofen 20 mg tablet 20 mg PO TID 10/02/22 Previous Rx's Medication Instructions Recorded polyethylene glycol 3350 17 17 g PO DAILY #510 grams 09/04/21 gram/dose oral powder (Miralax) dicyclomine 10 mg capsule 10 mg PO ONCE #30 caps 09/28/21 sucralfate 100 mg/mL oral 10 ml PO BID #420 mL 01/16/22 suspension (Carafate) omeprazole 20 mg capsule,delayed 20 mg PO BID 30 days #60 caps 02/08/22 release naproxen 250 mg tablet 250 mg PO BID pain #60 tabs 04/09/22 ondansetron 4 mg disintegrating 4 mg PO Q8H PRN nausea and 04/13/23 tablet vomiting #20 tabs Allergies Allergy/AdvReac Type Severity Reaction Status Date / Time Penicillins [PENICILLINS] Allergy Intermediate HIVES,SWELL Verified 04/13/23 12:11 ING sumatriptan [SUMATRIPTAN] AdvReac Severe PT STATES Verified 04/13/23 12:11 HEART ATTACK Review of Systems Constitutional: Reports chills, Reports fever(s) and Denies headache(s) Eyes: Denies blurry vision Denies headache(s) and Denies sore throat Cardiovascular: Denies chest pain and Denies dyspnea Respiratory: Denies cough and Denies dyspnea Gastrointestinal: Reports abdominal pain, Denies hematochezia, Reports constipation, Reports nausea and Reports vomiting Genitourinary: Denies difficulty voiding Musculoskeletal: Denies back pain Skin/Breast: Denies rash Denies headache(s) [facility] Past Medical History Medical History Arthritis Depression Disc degeneration, lumbar Dysphagia Erosive osteoarthritis of hands, bilateral GERD (gastroesophageal reflux disease) History of palpitations Hyperlipemia Hypertension Past heart attack Spondylosis of lumbar spine Surgical History H/O bilateral mastectomy H/O: hysterectomy History of cholecystectomy History of esophagogastroduodenoscopy (EGD) Hx of colonoscopy Family History Family History Mother Hypertension Breast cancer Maternal Grandmother Myocardial infarct Sister Heart problem Social History Social History Alcohol intake: current Alcohol intake frequency: holidays/special occasions only Patient Tobacco Use Status: Former Tobacco user Smoked in Last 30 Days: No Use of substances other than those prescribed or required for medical reasons: No Substance Use Type: Marijuana Advance Directives: No Advance Directives Information Provided: No Patient : No Physical Exam ED Vital Signs: Vital Signs - 24 hr 04/13/23 12:11 04/13/23 17:24 Temperature 98.5 F 97.7 F Pulse Rate 67 50 Respiratory Rate 16 18 Blood Pressure 120/81 115/79 Pulse Oximetry 99 100 Oxygen Delivery Method Room Air Room Air BMI result Body Mass Index 19.1 Const General: healthy appearing, comfortable, no acute distress, alert and awake Orientation/consciousness: patient oriented x3 HENMT Head: Yes normocephalic and Yes atraumatic Eyes Eyelids: Yes eyelids normal Conjunctivae: conjunctivae normal Sclerae: sclerae normal Corneas: corneas normal Pupils: Equal, round and reactive pupils present EOM: EOMs intact bilaterally Neck Neck: Yes full ROM Resp Effort & Inspection: normal respiratory effort, able to speak in complete sentences and not labored GI Inspection: No distended Palpation (GI): Soft to palpation, not firm, Tenderness to palpation present (GI) in the LLQ, no guarding and not rigid Auscultation: normoactive bowel sounds Skin General skin exam: no rashes or lesions noted and elasticity normal Neuro General: patient oriented x3 Cranial nerves: Yes Equal, round and reactive pupils present and Yes Bilaterally intact EOM present Cognition (Neuro): normal cognition Extrem Other: Moving all extremities well without any obvious deformities Course Course Course Narrative: This is an RME: Additional HPI, ROS, PE not included below will be deferred to primary provider. Patient is a 53-year-old transgender female to male with reported total hysterectomy, who presents emergency department for evaluation of 3 weeks for LLQ intestine pain, nausea, poor appetite. For the past 3 days pain is worse, having a hard time that he is eating and drinking, fevers. He is using medications to allow him to have a bowel movement, but only having very small movements. on exam had LLQ TTP, no rigidity, no guarding Plan: labs, urinalysis 15:30 presented to triage reporting persistent pain, offered Tylenol he however declines, states I need an IV for medicine, and to lay down my doctor says I need and MRI , became agitated and left the triage room. Reevaluation(s) Reevaluation #1: Patient's workup blood she unremarkable including labs and CT scan. She will be discharged to follow-up with GI Time: 20:38 Medical Decision Making Medical Decision Making [facility] Narrative: 53-year-old biological female who identifies as male presents for evaluation of left lower quadrant abdominal pain with nausea and constipation. Patient has a history of chronic constipation, GERD. He reports a history of H pylori which should not explain pain the left lower abdomen. Patient's labs are reassuring, will get a CT scan of the abdomen pelvis to evaluate for colitis/diverticulitis. UA is clear without sign of infection or hematuria Differential Diagnosis Differential Diagnoses: The differential diagnosis associated with the presentation includes Chronic constipation Abdominal pain Colitis Diverticulitis UTI Lab Data [facility] Lab Attestation statement: I reviewed the patient's lab results. No leukocytosis, patient's hemoglobin hematocrit actually slightly elevated at 16.1 48.2 respectively. Normal platelet count. No significant electrolyte abnormalities. 04/13/23 12:25 04/13/23 12:25 Labs: Lab Results 04/13/23 Range/Units 12:25 WBC 8.9 (4.8-10.8) X10*3/uL RBC 5.49 (4.20-5.50) X10*6/uL Hgb 16.1 H (12.0-16.0) g/dl Hct 48.2 H (37.0-47.0) % MCV 87.8 (80.0-98.0) fL MCH 29.3 (27.0-33.0) pg MCHC 33.4 (31.0-35.0) g/dl RDW 13.5 (11.0-16.0) % Plt Count 331 (160-400) X10*3/uL MPV 9.1 L (9.4-12.3) fL Immature Gran % (Auto) 0.2 (0.0-0.4) % Neut % (Auto) 55.6 (45-73) % Lymph % (Auto) 36.6 (20-40) % Trigg % (Auto) 6.3 (2-11) % Eos % (Auto) 0.7 (0-4) % Baso % (Auto) 0.6 (0-2) % Lymph # (Auto) 3.2 (1.2-4.9) X10*3/uL Trigg # (Auto) 0.6 (0.1-1.2) X10*3/uL Eos # (Auto) 0.1 (0.0-0.4) X10*3/uL Baso # (Auto) 0.1 (0.0-0.2) X10*3/uL Abs Immat Gran (auto) 0.02 (0.00-0.03) X10*3/uL Absolute Neuts (auto) 4.9 (2.0-8.3) x10*3/uL Absolute Nucleated RBC 0.000 (0.0-0.012) X10*3/uL Nucleated RBC % (auto) 0.0 (0.0-0.2) /100WBC Sodium 141 (135-145) mmol/L Potassium 4.8 (3.3-5.1) mmol/L Chloride 104 (96-108) mmol/L Carbon Dioxide 30 H (22-29) mmol/L Anion Gap 12 (12-20) BUN 15 (9-16) mg/dL Creatinine 0.87 (0.5-1.4) mg/dL Estim Creat Clear Calc 58.9 Estimated GFR > 60 Random Glucose 96 (60-115) mg/dL Calcium 9.9 (8.4-10.2) mg/dL Total Bilirubin 0.6 (0.0-1.0) mg/dL AST 22 (5-31) U/L ALT 18 (0-31) U/L Alkaline Phosphatase 76 (39-117) U/L Total Protein 8.1 H (6.5-8.0) g/dL Albumin 4.4 (3.5-5.0) g/dL Lipase 56 (8-78) U/L Urine Color Yellow Urine Appearance Clear Urine pH 6.0 (5.0-9.0) Ur Specific [place] 1.020 (1.005-1.025) Urine Protein Negative (Neg-Trace) mg/dL Urine Glucose (UA) Negative (Negative) mg/dL Urine Ketones Negative (Negative) mg/dL Urine Blood Negative (Negative) Urine Nitrite Negative (Negative) Ur Leukocyte Esterase Negative (Negative) Medications Administered Discontinued Medications Generic Name Dose Route Start Last Admin Trade Name Lamineq PRN Reason Stop Dose Admin Sodium Chloride 1,000 mls @ 999 mls/hr 04/13/23 18:00 04/13/23 18:51 Ns IV 04/13/23 19:00 999 mls/hr .Q1H1M KARLI Administration Iohexol 85 ml 04/13/23 19:22 04/13/23 19:22 Iohexol 350 Mg/Ml 100 Ml Infus..Btl IV 04/13/23 19:23 85 ml ONCE ONE Administration Morphine Sulfate 4 mg 04/13/23 17:59 04/13/23 18:51 Morphine Sulfate 4 Mg/Ml Cartridge IVPUSH 04/13/23 18:00 4 mg ONCE ONE Administration Protocol Ondansetron HCl 4 mg 04/13/23 17:59 04/13/23 18:51 Ondansetron Hcl 4 Mg/2 Ml Vial IVPUSH 04/13/23 18:00 4 mg ONCE ONE Administration Discharge Plan Discharge Clinical Impression: Abdominal pain Patient Disposition: Home, Self-Care Instructions: Abdominal Pain (ED) Additional Instructions: Your workup in the emergency room today was reassuring. Next this includes your blood work, CT scan the abdomen pelvis as well as her urine sample that was clear Use Zofran as needed for nausea or vomiting. Follow-up with GI for endoscopy/colonoscopy to evaluate for stomach ulcers Return for new or worsening symptoms Prescriptions: New ondansetron 4 mg tablet,disintegrating 4 mg PO Q8H PRN (Reason: nausea and vomiting) Qty: 20 0RF No Action dicyclomine 10 mg capsule 10 mg PO ONCE Qty: 30 3RF sucralfate [Carafate] 100 mg/mL suspension 10 ml PO BID Qty: 420 0RF buspirone 10 mg tablet 10 mg PO TID testosterone cypionate 200 mg/mL oil 100 mg IM Q2W fluticasone propionate 50 mcg/actuation spray,suspension 1 spray intranasal DAILY tramadol 50 mg tablet 50 mg PO TID PRN naproxen 250 mg tablet 250 mg PO BID Qty: 60 1RF baclofen 20 mg tablet 20 mg PO TID polyethylene glycol 3350 [Miralax] 17 gram/dose powder 17 g PO DAILY Qty: 510 2RF omeprazole 20 mg capsule,delayed release(DR/EC) 20 mg PO BID 30 Days Qty: 60 11RF Referrals: Manish Leone MD [Physician] - (chronic abdominal pain)
[2023-04-13 12:29] LABS: MANUAL DIFF FLAG NO
[2023-04-13 12:34] LABS: Appearance Urine Clear; Color Urine Yellow; Glucose Urine UA Negative (Negative); Leukocyte Esterase Urine Negative (Negative); Nitrite Urine Negative (Negative); Urine Blood Negative (Negative); Urine Ketones Negative (Negative); Urine Protein Negative (Neg-Trace)
[2023-04-13 12:41] LABS: Basophils Absolute Auto 0.1 X10*3/uL (0.0-0.2); Basophils Percent Auto 0.6 % (0-2); Eosinophils Absolute Auto 0.1 X10*3/uL (0.0-0.4); Eosinophils Percent Auto 0.7 % (0-4); Hematocrit 48.2 % (37.0-47.0); Hemoglobin 16.1 g/dl (12.0-16.0); Imm Gran Abs Auto 0.02 X10*3/uL (0.00-0.03); Imm Gran Pct Auto 0.2 % (0.0-0.4); Lymphocytes Absolute Auto 3.2 X10*3/uL (1.2-4.9); Lymphocytes Percent Auto 36.6 % (20-40); Mean Corpuscular HGB Conc 33.4 g/dl (31.0-35.0); Mean Corpuscular Hemoglobin 29.3 pg (27.0-33.0); Mean Corpuscular Volume 87.8 fL (80.0-98.0); Mean Platelet Volume 9.1 fL (9.4-12.3); Monocytes Absolute Auto 0.6 X10*3/uL (0.1-1.2); Monocytes Percent Auto 6.3 % (2-11); Neutrophils Absolute Auto 4.9 x10*3/uL (2.0-8.3); Neutrophils Percent Auto 55.6 % (45-73); Platelet Count 331 X10*3/uL (160-400); Red Blood Count 5.49 X10*6/uL (4.20-5.50); Red Cell Distribution Width 13.5 % (11.0-16.0); White Blood Count 8.9 X10*3/uL (4.8-10.8)
[2023-04-13 12:46] LABS: Alanine Aminotransferase 18 U/L (0-31); Albumin Level 4.4 g/dL (3.5-5.0); Alkaline Phosphatase 76 U/L (39-117); Anion Gap 12 (12-20); Aspartate Amino Transferase 22 U/L (5-31); Bilirubin Total 0.6 mg/dL (0.0-1.0); Blood Urea Nitrogen 15 mg/dL (9-16); Calcium 9.9 mg/dL (8.4-10.2); Carbon Dioxide 30 mmol/L (22-29); Chloride 104 mmol/L (96-108); Creatinine Clr Calc Pharmacy 58.9; Estimated Glomerular Filt Rate > 60; Glucose Random 96 mg/dL (60-115); Lipase 56 U/L (8-78); Potassium 4.8 mmol/L (3.3-5.1); Sodium 141 mmol/L (135-145); Total Protein 8.1 g/dL (6.5-8.0)
--- NOTE | 2023-04-13 16:27 | PC.NURSE ---
pt represented to triage reporting cont'd pain and needing to lie down in a bed, offered tylenol or ibuprofen PO, pt declined.
[2023-04-13 17:24] VITALS: BP 115/79; PULSE 50; RESP 18; TEMP 36.5; O2SAT 100
[2023-04-13] MEDS: ondansetron HCL 4 MG/2 ML VIAL IVPUSH (18:51)
[2023-04-13] MEDS: Morphine Sulfate 4 MG/ML CARTRIDGE IVPUSH (18:51)
[2023-04-13] MEDS: 0.9 % Sodium Chloride 1,000 ML 999 ML IV (18:51)
[2023-04-13] MEDS: iohexoL 350 MG/ML 100 ML INFUS..BTL 85 ML IV (19:22)
--- NOTE | 2023-04-13 19:39 | PC.NURSE ---
pt rang for nurse to ask for water and food; explained that at this time until CT scan results come back unable to provide food and water. pt became very angry yelling at this RN. stating unless you give me something now Im done. I know my body. you guys are doing nothing for me. attempted to speak to patient however he kept yelling over this RN. another staff member entered room and pt was just as verbally aggressive with her. this RN notified PA about what was going on. further explained that due to patient complaint of abd pain, nausea, vomiting and until the results from CT comes back he cannot have anything to eat or drink. pt increase in agitation and yelling at staff. requesting to leave however refused to have IV removed. pt then bypassed this RN and EDT to head for exit. unable to be redirected back to room. security was called however pt went back to room after PA agreed that pt could have ice chip. pt back in his room at this time.
== END 2023-04-13 21:00 | disposition home or self-care (01) ==
PROVIDERS: Nurse Practitioner Family; Emergency Provider Internal Medicine; PCP Family Medicine
DX: R10.32 Left lower quadrant pain (principal); Z90.49 Acquired absence of other specified parts of digestive tract; R11.2 Nausea with vomiting, unspecified; Z87.891 Personal history of nicotine dependence
CPT/HCPCS: 36415; 74177; 80053; 81003; 83690; 85025; 93005; 96374; 96375; 99284; J2270; J2405; Q9967

== ENCOUNTER → 2023-04-13 19:55 | Outpatient (BNV) | payer OTHER, SELFPAY | PROVIDERS: Emergency Provider Internal Medicine; PCP Family Medicine; Visit Provider Internal Medicine Cardiovascular Disease | DX: R07.9 Chest pain, unspecified (principal) | CPT/HCPCS: 93010 ==

== ENCOUNTER 2024-03-18 07:40 | Outpatient (REF) | payer OTHER, SELFPAY ==
[2024-03-18 08:50] LABS: Hematocrit 47.3 % (37.0-47.0); Hemoglobin 16.2 g/dl (12.0-16.0); Mean Corpuscular HGB Conc 34.2 g/dl (31.0-35.0); Mean Corpuscular Hemoglobin 30.3 pg (27.0-33.0); Mean Corpuscular Volume 88.6 fL (80.0-98.0); Mean Platelet Volume 9.5 fL (9.4-12.3); Platelet Count 294 X10*3/uL (160-400); Red Blood Count 5.34 X10*6/uL (4.20-5.50); Red Cell Distribution Width 14.2 % (11.0-16.0); White Blood Count 8.7 X10*3/uL (4.8-10.8)
[2024-03-18 09:43] LABS: Alanine Aminotransferase 23 U/L (0-31); Albumin Level 4.1 g/dL (3.5-5.0); Alkaline Phosphatase 80 U/L (39-117); Aspartate Amino Transferase 24 U/L (5-31); Bilirubin Direct 0.1 mg/dL (0.0-0.5); Bilirubin Total 0.4 mg/dL (0.0-1.0); Cholesterol 169 mg/dL (<200); HDL Cholesterol 56 mg/dL (>40); LDL Cholesterol Calculated 101 mg/dL (<100); Total Protein 7.3 g/dL (6.5-8.0); Triglycerides 61 mg/dL (<150)
[2024-03-18 10:13] LABS: HIV AB/AG Nonreactive (Nonreactive); HIV Num 1 0.05 S/CO (0.00-0.99)
[2024-03-18 10:14] LABS: Syphilis Screen Reactive (Nonreactive)
[2024-03-18 13:58] LABS: CT PCR NOT DETECTED (Not Detect.); NG PCR NOT DETECTED (Not Detect.)
[2024-03-22 15:25] LABS: RPR Quantitative Non-Reactive (Nonreactive); T.Pallidum Particle Agg Test Reactive (Nonreactive)
[2024-03-22 17:49] LABS: Testosterone, Total 1641 ng/dL (2-45)
== END 2024-03-18 07:41 | disposition home or self-care (01) ==
LOC: HO.LAB 07:40
PROVIDERS: PCP Family Medicine; Visit Provider Family Medicine
DX: F64.0 Transsexualism (principal); E78.5 Hyperlipidemia, unspecified; Z11.3 Encounter for screening for infections with a predominantly sexual mode of transmission
CPT/HCPCS: 36415; 80061; 80076; 84403; 85027; 86592; 86780; 87389; 87491; 87591

== ENCOUNTER 2024-04-03 12:54 | Outpatient (REF) | payer OTHER, SELFPAY ==
[2024-04-09 13:03] LABS: Testosterone, Total 142 ng/dL (2-45)
== END 2024-04-03 12:55 | disposition home or self-care (01) ==
LOC: HO.LAB 12:54
PROVIDERS: PCP Family Medicine; Visit Provider Family Medicine
DX: F64.0 Transsexualism (principal)
CPT/HCPCS: 36415; 84403

== ENCOUNTER 2024-04-20 14:11 | Outpatient (REF) | payer OTHER, SELFPAY ==
[2024-04-21 08:38] LABS: HBS Num1 > 1000.00 mIU/mL (0-7.99); HBc Num1 7.27 S/CO (0.00-0.79); HBsAGNum1 0.66 S/CO (0.00-0.99); Hepatitis B Surface Antigen Negative (Negative); ~HepC Num1 2.35 S/CO (0.00-0.79); ~Hepatitis B Surface Antibody REACTIVE (Nonreactive); ~Hepatitis C Antibody Reactive (Nonreactive)
[2024-04-21 13:26] LABS: HBc Num2 7.53 S/CO; HBc Num3 7.17 S/CO; Hepatitis B Core Antibody Reactive (Nonreactive)
[2024-04-21 13:59] LABS: HIV RNA PCR Qn Copies NOT DETECTED copies/mL (NOT DETECTED); HIV RNA PCR Qn Log Copies NOT DETECTED (NOT DETECTED)
[2024-04-24 14:13] LABS: HCV Log PCR <1.18 NOT DETECTED Log IU/mL (NOT DETECTED); HepC Viral Load <15 NOT DETECTED IU/mL (NOT DETECTED)
== END 2024-04-20 14:12 | disposition home or self-care (01) ==
LOC: HO.HHCL 14:11
PROVIDERS: Visit Provider Family Medicine
DX: Z11.4 Encounter for screening for human immunodeficiency virus [HIV] (principal); Z11.3 Encounter for screening for infections with a predominantly sexual mode of transmission; Z79.899 Other long term (current) drug therapy
CPT/HCPCS: 36415; 86704; 86706; 86803; 87340; 87522; 87536

== ENCOUNTER 2024-04-28 08:56 | Outpatient (RCR) | payer OTHER, SELFPAY | END 2024-05-12 15:15 | disposition home or self-care (01) | LOC: HO.PT 08:56 | PROVIDERS: PCP Family Medicine; Visit Provider Family Medicine | DX: M54.42 Lumbago with sciatica, left side (principal) | CPT/HCPCS: 97014; 97110; 97140; 97161 ==

== ENCOUNTER 2024-05-08 07:58 | Outpatient (REF) | payer OTHER, SELFPAY ==
--- NOTE | ~2024-05-08 | CT_ITS ---
CLINICAL HISTORY: Previous CT performed at [facility] showed multiple interdeterminate nodules CT chest without IV contrast. COMPARISON: None FINDINGS: Visualized thyroid is unremarkable. No supraclavicular or axillary lymphadenopathy. Ascending aorta and main pulmonary artery are normal in caliber. Coronary artery calcifications present within the LAD. Aortic annular calcifications. No pericardial effusion. Air-fluid level present within the mid thoracic esophagus. No mediastinal lymphadenopathy. No pleural effusion. No consolidation. Trachea and central airways are clear. No significant bronchial wall thickening. No bronchiectasis. Calcified granulomas present within the right lower lobe and left lower lobe. Mild spondylosis. No acute fracture or suspicious bone lesion. IMPRESSION: 1. No acute intrathoracic findings. Calcified granulomas present bilaterally. No suspicious pulmonary nodule identified. 2. Air-fluid level present within the midthoracic esophagus can be associated with gastroesophageal reflux disease and esophageal dysmotility. 3. Coronary artery atherosclerosis. This document has been electronically signed by: Juan Álvarez MD on 05/11/2024 16:47:03
== END 2024-05-08 07:59 | disposition home or self-care (01) ==
LOC: HO.CT 07:58
PROVIDERS: PCP Family Medicine; Visit Provider Family Medicine
DX: R91.8 Other nonspecific abnormal finding of lung field (principal)
CPT/HCPCS: 71250

== ENCOUNTER → 2024-05-08 08:00 | Outpatient (BNV) | payer OTHER, SELFPAY | PROVIDERS: PCP Family Medicine; Visit Provider Radiology Diagnostic Radiology | DX: J84.10 Pulmonary fibrosis, unspecified (principal) | CPT/HCPCS: 71250 ==

== ENCOUNTER 2024-05-21 15:22 | Outpatient (REF) | payer OTHER, SELFPAY ==
[2024-05-24 13:18] LABS: HIV RNA PCR Qn Copies NOT DETECTED copies/mL (NOT DETECTED); HIV RNA PCR Qn Log Copies NOT DETECTED (NOT DETECTED)
== END 2024-05-21 15:23 | disposition home or self-care (01) ==
LOC: HO.HHCL 15:22
PROVIDERS: Visit Provider Family Medicine
DX: Z79.899 Other long term (current) drug therapy (principal)
CPT/HCPCS: 36415; 87536

== ENCOUNTER 2024-05-26 12:38 | Outpatient (AMB) | payer OTHER, SELFPAY ==
--- NOTE | 2024-05-26 12:44 | A.OFFVIS_ITS ---
Vital Signs 3 05/26/24 12:45 Height 5 ft 4 in Weight 131 lb 13.383 oz BMI 22.6 BP 100/72 Blood Pressure Location Rt brachial Position Sitting Pulse 76 Intake Visit Reasons: Chronic GERD was a [facility] patient 30 mins Intake Note: Patient in office today for chronic GERD. CC: Patient reports that she is swallowing better but everything irritates her stomach. She c/o a lot of acid reflux but is not taking the Omeprazole every day because the Omeprazole is killing the munoz of my stomach . Patient would like to discuss EGD. Product Development Carpenter Required: Yes Product Development Carpenter Language: Algerian Allergies black pepper Allergy (Severe, Verified 05/26/24 12:51) Anaphylaxis Penicillins [PENICILLINS] Allergy (Intermediate, Verified 05/26/24 12:51) HIVES,SWELLING sumatriptan [SUMATRIPTAN] Adverse Reaction (Severe, Verified 05/26/24 12:51) PT STATES HEART ATTACK HPI HPI Chronic GERD was a [facility] patient 30 mins: Details: 54-year-old female here for initial evaluation, although she was seen in the past by Amy Kemp and has not been seen since 2021. Her primary care provider is [facility]. PMX Hypertension High cholesterol Lumbar degenerative disc disease Chronic constipation GERD Continuous use of opioids Erosive osteoarthritis of the hands * SURGICAL HISTORY Cholecystectomy Colonoscopy-2017 Mukesh negative study EGD-2021 her son with dilation; 2018 Mukesh with dilation Bilateral mastectomy Hysterectomy * ALLERGIES Penicillin Triptans * [facility] LABS: Laboratory Tests 03/18/24 08:01 WBC 8.7 Hgb 16.2 H Hct 47.3 H MCV 88.6 MCH 30.3 Plt Count 294 Total Bilirubin 0.4 AST 24 ALT 23 Alkaline Phosphatase 80 AMY LAST NOTE New omeprazole 20 mg PO BID 30 days 60 caps 11RF Patient Instructions: increase omeprazole 20mg bid avoid culprits encourage call questions or concerns EGD Findings: Larynx:normal Esophagus: GE junction at 38 cm, diaphragm hiatus at 38 cm, mild esophagitis. dilation done to 16 mm at LES and UES with resistance felt but no tears seen. Stomach: Patchy gastric erythema. Biopsies were obtained. Grade 2 flap valve on retroflexed examination of the cardia. There was some retained food. The pyloric outlet was tight and dilated to 16 mm where resistance was felt but no tears. Duodenum: Normal bulb and descending duodenum, Intervention: Biopsies as noted above, balloon dilation of esophagus and pylorus Impression/Findings: esophageal dilation pyloric dilation gastritis PLAN: make sure patient is taking PPI, if taking can increase dose and see if helps symptoms Biopsy Received: 12/28/21 Diagnosis Stomach, biopsy: Antral-type and oxyntic mucosa with moderate chronic inactive inflammation; no Helicobacter organisms seen COLONOSCOPY Findings: Terminal Ileum Multiple attempts to intubate the TI were unsuccessful Cecum Normal Ascending Colon Moderate diverticulosis Transverse Colon - Moderate diverticulosis Descending Colon Severe diverticulosis Sigmoid Colon Severe diverticulosis and submucosal brusing noted at 30 cms likely due to scope trauma Rectum Normal Anorectum - Moderate hemorrhoids Colon preparation: Good after flushing and suctioning Impression and Post Procedure Diagnosis: Colonoscopy Findings: No polyps detected Moderate to severe diverticulosis seen in the entire colon Moderate hemorrhoids on retroflexed exam. EGD 03/10/18 Findings: Larynx: Edema of arytenoid cartilages Esophagus: GE junction at 40 cms. No esophagitis or Rojas s. Moderate resistence to passage of the endoscope through LES without obvious stricture - biopsies were obtained. LES was dilated with a CRE Balloon at 15, 16.5 and 18 mm for 16 seconds each. Biopsies obtained from proximal esophagus to check for EOE. Stomach: Mild gastric erythema. Biopsies were obtained. Grade 2 flap valve on retroflexed examination of the cardia. Duodenum: Normal bulb and descending duodenum Intervention: Biopsies and balloon dilation to 53 F as noted above Impression and Post Procedure Diagnosis: Endoscopy Findings: LARYNX: Changes suggestive of LPRD ESOPHAGUS: Dysphagia ? distal esophageal stricture, EOE, motility disorder versus achalasia STOMACH: gastritis DUODENUM: Normal Plan: Await pathology results Continue present medications (Omeprazole at 20 mg PO once daily) BIOPSY 03/10/18 Received: 03/10/18 0 Submitted by: SID HARDEN MD MATERIAL RECEIVED: A. GASTRIC ANTRUM BX'S B. DISTAL ESOPHAGUS BX'S C. PROXIMAL ESOPHAGUS BX'S DIAGNOSIS 0 A. Stomach, antrum, biopsy: Moderate chronic inactive gastritis; no Helicobacter organisms seen. 0 B. Esophagus, distal, biopsy: Squamous epithelium within normal limits. c. Esophagus, proximal, biopsy: Squamous epithelium within normal limits. 0 COMMENT: Diagnostic features of eosinophilic esophagitis are not seen. NOTE: Immunostain for H. pylori is non-reactive. TODAY'S VISIT Algerian #Michelle Jones ([facility] and identifies as male) She initially presented to GI for dysphagia. She says she was told my throat closes involuntarily. She had a dilation that was helpful and this has been sustained. Now she has a very irritated stomach with everything she eats and I have a lot of gases, this is both belching and flatulence. She also has borborygmus. She had trouble gaining weight. She may eat well one day, but then the sx will exacerbate the next day. She has trouble taking the omeprazole r/t the size of the capsule and she feels it increases her nausea although it helps with her HB. Her stools are normal and formed. She has had some relief with the use of bentyl. She says she wants to have an EGD/colonoscopy - but she had an EGD for the same sx in 2018 that was relatively unremarkable, and a colonoscopy that was the same. She says she has a personal history of polyps in [place] and her mother had colon polyps. Her problems seemed to have started in 2013 when she was in [place]. Her sister has similar sx but also has NIDDM. HEr pain is a burning in the epigastrum and esophagus/chest, but in the LLQ she has pain about twice a month with diarrhea - the LLQ pain is described as a squeezing pain. It is helped quite a lot with bentyl, but she was on rx'ed one a day and she would wait until she was in severe pain before taking. She also has extremely good sx control when she was on a short course of sucralfate liquid. This really points towards bile reflux and gastritis. ROV 4 weeks. [facility] Medical History (Updated 05/26/24 @ 13:33 by MIHIR Perez) Chronic GERD Abdominal pain Palpitations Hypotension History of palpitations Dysphagia Disc degeneration, lumbar Spondylosis of lumbar spine Depression Past heart attack Hyperlipemia Erosive osteoarthritis of hands, bilateral Arthritis GERD (gastroesophageal reflux disease) Hypertension Surgical History History of cholecystectomy Hx of colonoscopy History of esophagogastroduodenoscopy (EGD) H/O bilateral mastectomy H/O: hysterectomy Family History Mother Hypertension Breast cancer Maternal Grandmother Myocardial infarct Skin cancer Sister Heart problem Breast cancer Family/Other Esophageal cancer Social History Alcohol intake: current Alcohol intake frequency: holidays/special occasions only Patient Tobacco Use Status: Former Tobacco user Substance Use Type: Marijuana Review of Systems Const Denies fatigue, Denies fever(s), Denies night sweats, Denies poor appetite, Denies weight loss and Reports other (Inability to gain weight) Eyes Details: glasses Reports requires corrective lenses ENT Reports Normal hearing present, Denies dental pain, Denies dysphagia, Denies hearing loss, Denies mouth pain, Denies odynophagia, Denies throat swelling, Denies tongue swelling and Reports other (Dentition adequate) Card Reports no additional complaints Resp Reports no additional complaints GI Details: Reports abdominal pain, Denies melena, Reports bloating, Denies hematochezia, Denies constipation, Denies GI cramping, Denies dysphagia, Denies excessive flatus, Denies early satiety, Reports heartburn, Denies diarrhea, Reports nausea, Denies odynophagia, Denies vomiting and Denies hematemesis Skin/Breast Denies pruritus, Denies lesions, Denies rash and Denies jaundice Neuro Reports Normal hearing present and Denies Abnormal speech present Endo Denies fatigue Aller/Immun Denies throat swelling and Denies tongue swelling Physical Exam Vital Signs: Last Vital Signs Pulse 76 05/26/24 12:45 BP 100/72 05/26/24 12:45 BMI result Body Mass Index 22.6 Const General: cooperative, no acute distress, well developed and well groomed Nutritional Appearance: well nourished and thin Orientation/consciousness: oriented to person, oriented to place and oriented to time Limitations: language barrier HEENT Head: Yes normocephalic and Yes atraumatic Eyes General: appearance normal, both eyes and all related structures Pupils: Equal, round and reactive pupils present Neck Neck: Yes normal visual inspection and Yes no lymphadenopathy Thyroid: Thyroid normal Chest Other: Patient has had gender reassignment surgery with cosmetic breast removal Resp Effort & Inspection: normal respiratory effort and able to speak in complete sentences Auscultation: clear to auscultation bilaterally Cardio Rate: regular rate Rhythm: regular rhythm Heart sounds: Normal, physiologic split S2 sound present Peripheral pulses: radial pulses present and posterior tibial pulses present GI Inspection: No distended and No Abdominal panniculus present Palpation (GI): Soft to palpation, Tenderness to palpation present (GI) in the LLQ, no guarding, not rigid and No hepatosplenomegaly present Percussion: Yes normal to percussion Auscultation: normal bowel sounds Rectal Exam - Female: deferred Abdomen image: 2 1. surgical scar Skin General skin exam: no rashes or lesions noted, turgor normal, skin not dry, no jaundice, No spider nevi and no striae Rashes: no rashes Nails: normal Neuro General: oriented to person, oriented to place and oriented to time Cranial nerves: Yes Equal, round and reactive pupils present and Yes Normal hearing present Speech: No Abnormal speech present Extrem General: Yes normal to inspection, No clubbing, No cyanosis and No edema Psych Appearance: grossly normal and well kempt Mental Status: mental status grossly normal Speech and movement: Normal speech and movement present Affect: normal affect Attitude: cooperative Thought process: Normal thought process present and not confabulating Thought content: Normal thought content present Insight: Fair insight present (Psych) Judgement: Fair judgement present (Psych) Results Reviewed Results Reviewed: Laboratory Tests 03/18/24 08:01 WBC 8.7 Hgb 16.2 H Hct 47.3 H MCV 88.6 MCH 30.3 Plt Count 294 Total Bilirubin 0.4 AST 24 ALT 23 Alkaline Phosphatase 80 AMY LAST NOTE New omeprazole 20 mg PO BID 30 days 60 caps 11RF Patient Instructions: increase omeprazole 20mg bid avoid culprits encourage call questions or concerns EGD Findings: Larynx:normal Esophagus: GE junction at 38 cm, diaphragm hiatus at 38 cm, mild esophagitis. dilation done to 16 mm at LES and UES with resistance felt but no tears seen. Stomach: Patchy gastric erythema. Biopsies were obtained. Grade 2 flap valve on retroflexed examination of the cardia. There was some retained food. The pyloric outlet was tight and dilated to 16 mm where resistance was felt but no tears. Duodenum: Normal bulb and descending duodenum, Intervention: Biopsies as noted above, balloon dilation of esophagus and pylorus Impression/Findings: esophageal dilation pyloric dilation gastritis PLAN: make sure patient is taking PPI, if taking can increase dose and see if helps symptoms Biopsy Received: 12/28/21 Diagnosis Stomach, biopsy: Antral-type and oxyntic mucosa with moderate chronic inactive inflammation; no Helicobacter organisms seen COLONOSCOPY Findings: Terminal Ileum Multiple attempts to intubate the TI were unsuccessful Cecum Normal Ascending Colon Moderate diverticulosis Transverse Colon - Moderate diverticulosis Descending Colon Severe diverticulosis Sigmoid Colon Severe diverticulosis and submucosal brusing noted at 30 cms likely due to scope trauma Rectum Normal Anorectum - Moderate hemorrhoids Colon preparation: Good after flushing and suctioning Impression and Post Procedure Diagnosis: Colonoscopy Findings: No polyps detected Moderate to severe diverticulosis seen in the entire colon Moderate hemorrhoids on retroflexed exam. EGD 03/10/18 Findings: Larynx: Edema of arytenoid cartilages Esophagus: GE junction at 40 cms. No esophagitis or Rojas s. Moderate resistence to passage of the endoscope through LES without obvious stricture - biopsies were obtained. LES was dilated with a CRE Balloon at 15, 16.5 and 18 mm for 16 seconds each. Biopsies obtained from proximal esophagus to check for EOE. Stomach: Mild gastric erythema. Biopsies were obtained. Grade 2 flap valve on retroflexed examination of the cardia. Duodenum: Normal bulb and descending duodenum Intervention: Biopsies and balloon dilation to 53 F as noted above Impression and Post Procedure Diagnosis: Endoscopy Findings: LARYNX: Changes suggestive of LPRD ESOPHAGUS: Dysphagia ? distal esophageal stricture, EOE, motility disorder versus achalasia STOMACH: gastritis DUODENUM: Normal Plan: Await pathology results Continue present medications (Omeprazole at 20 mg PO once daily) BIOPSY 03/10/18 Received: 03/10/18 0 Submitted by: SID HARDEN MD MATERIAL RECEIVED: A. GASTRIC ANTRUM BX'S B. DISTAL ESOPHAGUS BX'S C. PROXIMAL ESOPHAGUS BX'S DIAGNOSIS 0 A. Stomach, antrum, biopsy: Moderate chronic inactive gastritis; no Helicobacter organisms seen. 0 B. Esophagus, distal, biopsy: Squamous epithelium within normal limits. c. Esophagus, proximal, biopsy: Squamous epithelium within normal limits. 0 COMMENT: Diagnostic features of eosinophilic esophagitis are not seen. NOTE: Immunostain for H. pylori is non-reactive. Assessment & Plan Assessment & Plan (1) Bile reflux gastritis: Code(s): K29.60 - Other gastritis without bleeding Category: Medical (2) Bile reflux esophagitis: Code(s): K21.00 - Gastro-esophageal reflux disease with esophagitis, without bleeding Category: Medical (3) Chronic constipation: Code(s): K59.09 - Other constipation Category: Medical (4) Chronic, continuous use of opioids: Code(s): F11.90 - Opioid use, unspecified, uncomplicated Category: Medical Plan Algerian #Michelle Live ([facility] and identifies as male) She initially presented to GI for dysphagia. She says she was told my throat closes involuntarily. She had a dilation that was helpful and this has been sustained. Now she has a very irritated stomach with everything she eats and I have a lot of gases, this is both belching and flatulence. She also has borborygmus. She had trouble gaining weight. She may eat well one day, but then the sx will exacerbate the next day. She has trouble taking the omeprazole r/t the size of the capsule and she feels it increases her nausea although it helps with her HB. Her stools are normal and formed. She has had some relief with the use of bentyl. She says she wants to have an EGD/colonoscopy - but she had an EGD for the same sx in 2018 that was relatively unremarkable, and a colonoscopy that was the same. She says she has a personal history of polyps in [place] and her mother had colon polyps. Her problems seemed to have started in 2013 when she was in [place]. Her sister has similar sx but also has NIDDM. HEr pain is a burning in the epigastrum and esophagus/chest, but in the LLQ she has pain about twice a month with diarrhea - the LLQ pain is described as a squeezing pain. It is helped quite a lot with bentyl, but she was on rx'ed one a day and she would wait until she was in severe pain before taking. She also has extremely good sx control when she was on a short course of sucralfate liquid. This really points towards bile reflux and gastritis. ROV 4 weeks. Medications: New 2 polyethylene glycol 3350 (Miralax) 238 grams PO ONCE 238 grams 0RF colonoscopy prep 1 day bisacodyl (Dulcolax (bisacodyl)) 10 mg (2 x 5 mg) PO BEDTIME 4 tabs 0RF 2 days Changed 2 From dicyclomine 10 mg PO ONCE 30 caps 3RF To dicyclomine 10 mg PO QID 120 caps 3RF From sucralfate (Carafate) 10 mL PO BID 420 mL 0RF K21.00 - Gastro-esophageal reflux disease with esophagitis, without bleeding, K29.60 - Other gastritis without bleeding To sucralfate (Carafate) 20 mL PO QNOON 420 mL 6RF K21.00 - Gastro-esophageal reflux disease with esophagitis, without bleeding, K29.60 - Other gastritis without bleeding Discontinued 2 ondansetron Discontinued Reason: Doctor's Order 4 mg PO Q8H PRN 20 tabs 0RF nausea and vomiting omeprazole Discontinued Reason: Doctor's Order 20 mg PO BID 30 days 60 caps 11RF Coding Level of Care Code Est Pt Level 4 (29698) Diagnoses Bile reflux gastritis K29.60 Bile reflux esophagitis K21.00 Chronic constipation K59.09 Chronic, continuous use of opioids F11.90 Time Spent (min) 40
[2024-05-26 12:45] VITALS: BP 100/72; PULSE 76; BMI 22.6
== END 2024-05-26 13:45 | disposition home or self-care (01) ==
PROVIDERS: PCP Family Medicine; Visit Provider Nurse Practitioner
DX: K29.60 Other gastritis without bleeding (principal); K21.00 Gastro-esophageal reflux disease with esophagitis, without bleeding; K59.09 Other constipation; F11.90 Opioid use, unspecified, uncomplicated
CPT/HCPCS: 99214

== ENCOUNTER → 2024-05-26 12:38 | Outpatient (BNVA) | payer OTHER, SELFPAY | PROVIDERS: PCP Family Medicine; Visit Provider Nurse Practitioner | DX: K29.60 Other gastritis without bleeding (principal); K21.00 Gastro-esophageal reflux disease with esophagitis, without bleeding; K59.09 Other constipation; F11.20 Opioid dependence, uncomplicated | CPT/HCPCS: 99212 ==

== ENCOUNTER 2024-06-04 12:16 | Outpatient (REF) | payer OTHER, SELFPAY ==
--- NOTE | ~2024-06-04 | XR_ITS ---
EXAMINATION: XR HIP, LEFT CLINICAL INFORMATION: chronic left hip pain COMPARISON: None available. TECHNIQUE: Two views of the left hip. FINDINGS: No fracture. Alignment is anatomic. Hip joint space is maintained. Soft tissues are unremarkable. XR/XR hip LT min 2V IMPRESSION: Unremarkable left hip exam Electronically signed by: Jimmy Pedroza MD 06/04/2024 01:04 PM [facility]
== END 2024-06-04 12:17 | disposition home or self-care (01) ==
LOC: HO.HHCX 12:16
PROVIDERS: Visit Provider Family Medicine
DX: M25.552 Pain in left hip (principal); G89.29 Other chronic pain
CPT/HCPCS: 73502

== ENCOUNTER → 2024-06-04 12:17 | Outpatient (BNV) | payer OTHER, SELFPAY | PROVIDERS: Visit Provider Radiology Diagnostic Radiology | DX: M25.552 Pain in left hip (principal) | CPT/HCPCS: 73502 ==

== ENCOUNTER 2024-07-20 09:57 | Outpatient (AMB) | payer OTHER, SELFPAY ==
--- NOTE | 2024-07-20 10:00 | MHC.OFFVIS ---
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, Awning Frame Maker Required: Yes Awning Frame Maker Language: Regulatory Associate Name: Nader/[id number] Accompanied by: Self / Same As Patient Allergies black pepper Allergy (Severe, Verified 05/26/24 12:51) Anaphylaxis Penicillins [PENICILLINS] Allergy (Intermediate, Verified 05/26/24 12:51) HIVES,SWELLING sumatriptan [SUMATRIPTAN] Adverse Reaction (Severe, Verified 05/26/24 12:51) PT STATES HEART ATTACK Medication List - Last Reconciled 07/20/24 by Fred Castanon MD cabotegravir ER (Apretude) 600 mg IM [id number] dicyclomine 10 mg PO QID testosterone cypionate 100 mg IM Q2W HPI Comments Details: 51-year-old transgender male (on Testosterone) who was previously seen in 2021 presenting with a new patient. Deloris was complaining of palpitations and ECHO and cardiac event monitor was normal at that time. There was concern for hypertension and enalapril was stopped at that time. Today Deloris returns for follow-up. He has been experiencing dyspnea on exertion apparently was a CT scan performed in 05/01/2024 which showed coronary calcifications. There were also calcified granulomas present bilaterally. He is a former smoker and quit 9 months ago. Twenty-three pack year smoking. Dyspnea on exertion with activities like going upstairs. No chest discomfort. On antiretrovirals. PENDING SALE TO [facility] Medical History (Updated 07/20/24 @ 10:25 by Fred Castanon MD) Chronic GERD Abdominal pain Palpitations Hypotension History of palpitations Dysphagia Disc degeneration, lumbar Spondylosis of lumbar spine Depression Past heart attack Hyperlipemia Erosive osteoarthritis of hands, bilateral Arthritis GERD (gastroesophageal reflux disease) Hypertension Surgical History History of cholecystectomy Hx of colonoscopy History of esophagogastroduodenoscopy (EGD) H/O bilateral mastectomy H/O: hysterectomy Family History Mother Hypertension Breast cancer Maternal Grandmother Myocardial infarct Skin cancer Sister Heart problem Breast cancer Family/Other Esophageal cancer Social History (Updated 07/20/24 @ 10:06 by Millie Lucas [facility]) Alcohol intake: never Patient Tobacco Use Status: Former Tobacco user Substance Use Type: Marijuana Review of Systems Const Denies chills, Denies fatigue, Denies fever(s), Denies frequent falls, Denies weakness, Denies weight gain and Denies weight loss ENT Denies dizziness Card Denies chest pain, Denies leg edema, Denies lightheadedness, Denies palpitations, Denies dyspnea, Denies dyspnea on exertion and Denies orthopnea Resp Denies cough, Denies dyspnea and Denies dyspnea on exertion GI Denies bloating and Denies change in bowel habits Musc Denies muscle weakness, Denies numbness and Denies tingling Neuro Denies dizziness, Denies frequent falls, Denies numbness, Denies tingling and Denies weakness Endo Denies fatigue and Denies palpitations Physical Exam Vital Signs: Last Vital Signs Pulse 62 07/20/24 10:03 BP 100/62 07/20/24 10:03 BMI result Body Mass Index 19.9 GENERAL APPEARANCE: in no acute distress, pleasant. NECK: no carotid bruit, no jugular venous distention. SKIN: no suspicious lesions, warm and dry. HEART: no murmurs, regular rate and rhythm. LUNGS: clear to auscultation bilaterally. ABDOMEN: soft, nontender. EXTREMITIES: no edema. PERIPHERAL PULSES: equal. NEUROLOGIC: No gross deficits, AAO X 3. Office Procedures EKG Details: Sinus rhythm 62 beats per minute, nonspecific T-wave changes, QTC of 383 milliseconds. [id number], Complete Assessment & Plan Assessment & Plan (1) Coronary artery calcification: Code(s): I25.10 - Atherosclerotic heart disease of [place] coronary artery without angina pectoris Category: Medical (2) LEE (dyspnea on exertion): Code(s): R06.09 - Other forms of dyspnea Category: Medical Plan 54-year-old transgender male here for dyspnea on exertion and coronary calcification noted on CT scan. He has consistent symptoms with activities like going uphill. He is also on antiretrovirals. We will arrange a stress Mibi (baseline ECG is abnormal with nonspecific T-wave changes). We will also arrange a echocardiogram. Will do a fasting lipid panel. We will see him back in 4 months. Thank you for allowing me to participate in the care of your patient. Please feel free to contact me if you have any questions. Orders: Orders NM cardiolite stress test Today R06.09 - Other forms of dyspnea CA echo transthorac w con Today R06.09 - Other forms of dyspnea CA stress test Today R06.09 - Other forms of dyspnea Lipid Panel Today I25.10 - Atherosclerotic heart disease of [place] coronary artery without angina pectoris Coding Level of Care Code New Pt Level 4 (63410) Diagnoses Coronary artery calcification I25.10 LEE (dyspnea on exertion) R06.09 CPT Codes EKG - CPT: 74235-[id number], Complete ([id number])
[2024-07-20 10:03] VITALS: BP 100/62; PULSE 62; BMI 19.9
--- OUTSIDE RECORDS SUMMARY | 2024-07-20 10:57 | XMS_ITS | Encounter Summary ---
Author Organization [employer] Address [address] [facility] [address] 7t [place] [address] Care Team Providers Care Firebrick Layer Name Role Phone [place], Emilie MARISCAL Primary Care Provider +1- [phone] Morales Echavarria Unavailable Unavailable August Unavailable Encounter Details Date Type Department Care Team ([facility] st Contact Info) Description 07/02/2024 Telephone [facility] [address] [place] [address] Medina Lewis RN [address] [place] [address] Social History Tobacco Use Types Packs/Day Years Used Date Smoking Tobacco: Never Passive Smoke Exposure: Never Smokeless Tobacco: Never Alcohol Answer Date Recorded How often do you have a drink containing alcohol ? 1 03/16/2024 Average Number of Drinks Not on file 024 Frequency of Binge Drinking Not on file 08/2023 Depression Answer Date Recorded Patient Health Questionnaire-9 Score 3 04/30/2023 Patient Health Questionnaire-9 Score 3 04/30/2023 Last PHQ-9: Questionnaire Data Not on file 1 07/01/2022 Housing Stability Answer Date Recorded What is your housing situation today? I have brenda ta 03/16/[address] you li ve. Do you have problems with any of the following? None of the above 03/16/2024 Food Insecurity Answer Date Recorded Within the past 12 months, y ou worried that your food would run out before you got money to buy more: Sometimes True 2023 Within the past 12 months,th e food you bought just didn't last and you didn't have enough money to get more: Sometimes True 03/16/2024 Transportation Answer Date Recorded In the past 12 months, has l ack of transportation kept you from medical appts, meetings, work or from getting things needed for daily living? No 03/16/2024 Utilities Answer Date Recorded In the past 12 months, has t he electric, gas, oil or water company threatened to shut off services in your home? 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 RN spoke to Trevor, delivery set up for 07/07/24. documented in this encounter Plan of Treatment Upcoming Encounters Date Type Department Care Team (Late st Contact Info) Description 07/23/2024 1:00 PM EDT Clinical Support [facility] [address] [place] [address] Medina Lewis RN 230 [place] [address] documented as of this encounter Visit Diagnoses Not on filedocumented in this encounter Additional Health Concerns Assessment Noted Time PHQ-9 Depression Total Score: 3 04/30/20 23 9:17 AM EST documented as of this encounter Care Teams Firebrick Layer Relationship Specialty Start Date End Date Emilie Davis MD 230 [place] [address] PCP - General Family Medicine 05/13/18 Morales Echavarria FNP 230 [facility] [place] [address] Nurse Practitioner Family Medicine 04/16/23 Aida Orozco [address] [place] [address] 3rd [place] [address] Gastroenterology 05/26/24 documented as of this encounter
--- OUTSIDE RECORDS SUMMARY | 2024-07-20 10:57 | XMS_ITS | Encounter Summary ---
Author Organization [employer] [facility] Address [address] [facility] 7t [place] [address] Care Team Providers Care Collection Analyst Name Role Phone Emilie Davis MD Primary Care Provider +1- [phone] Morales Echavarria Unavailable Unavailable August Unavailable Reason for Visit * Reason Comments Med Change Request Encounter Details Date Type Department Care Team ([facility] Contact Info) Description 07/08/2024 Refill [facility] 230 [place], [place] [phone] Emilie Davis MD 230 [place], [place] [phone] Social History Tobacco Use Types Packs/Day Years [...] 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 file Not on file documented as of this encounter Plan of Treatment Upcoming Encounters Date Type Department Care Team (Late st Contact Info) Description 07/23/2024 1:00 PM EDT Clinical Support [facility] [address] [place] [address] Medina Lewis RN [address] [place] [address] documented as of this encounter Visit Diagnoses Not on filedocumented in this encounter Additional Health Concerns Assessment Noted Time PHQ-9 Depression Total Score: 3 04/30/20 23 9:17 AM EST documented as of this encounter Care Teams Collection Analyst Relationship Specialty Start Date End Date Emilie Davis MD [address] [place] [address] PCP - General Family Medicine 05/13/18 Morales Echavarria FNP [address] [place] [address] Nurse Practitioner Family Medicine 04/16/23 Pam Aida [address] [place] [address] Drive 3rd [place] [address] Gastroenterology 05/26/24 documented as of this encounter
--- OUTSIDE RECORDS SUMMARY | 2024-07-20 10:57 | XMS_ITS | Encounter Summary ---
Author Organization [employer] Address [address] [facility] 7t [place] [address] Care Team Providers Care Software Testing Specialist Name Role Phone [place], Emilie MARISCAL Primary Care Provider +1- [phone] Morales Echavarria Unavailable Unavailable August Unavailable Reason for Visit * Reason Onset Date Comments Medication Question 07/10/2024 Encounter Details Date Type Department Care Team ([facility] st Contact Info) Description 07/10/[address] 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 Human Development Professor no longer making the multi dose vials that pt was picking up. Pharmacy is requesting that the quantity on pt's prescription be changed to 4mL so that they can fill it properly. All other detailscan remain the same . Queued revised prescription as requested. documented in this encounter Plan of Treatment Upcoming Encounters Date Type Department Care Team (Late st Contact Info) Description 07/23/2024 1:00 PM EDT Clinical Support [facility] 230 [place] [address] Medina Lewis, RN 230 [place] [address] documented as of this encounter Visit Diagnoses Diagnosis Gender dysphoria documented in this encounter Additional Health Concerns Assessment Noted Time PHQ-9 Depression Total Score: 3 04/30/20 23 9:17 AM EST documented as of this encounter Care Teams Software Testing Specialist Relationship Specialty Start Date End Date Emilie Davis MD 230 [place] [address] PCP - General Family Medicine 05/13/18 Morales Echavarria FNP 230 [place] [address] Nurse Practitioner Family Medicine 04/16/23 Pam Aida [address] [place] [address] 3rd [place] [address] Gastroenterology 05/26/24 documented as of this encounter
--- OUTSIDE RECORDS SUMMARY | 2024-07-20 10:57 | XMS_ITS | Encounter Summary ---
Author Organization [employer] Address [address] 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 Pt agrees to POC. documented in this encounter Plan of Treatment Upcoming Encounters Date Type Department Care Team (Late st Contact Info) Description 07/23/2024 1:00 PM EDT Clinical Support [facility] 230 [place] [address] Medina Lewis, RONALD 230 [place] [address] documented as of this encounter Visit Diagnoses Not on filedocumented in this encounter Additional Health Concerns Assessment Noted Time PHQ-9 Depression Total Score: 3 04/30/20 23 9:17 AM EST documented as of this encounter Care Teams Yard Operator Relationship Specialty Start Date End Date Emilie Davis MD 230 [place] [address] PCP - General Family Medicine 05/13/18 Morales Echavarria FNP 230 [place] [address] Nurse Practitioner Family Medicine 04/16/23 Aida Orozco [address] [place] [address] 3rd [place] [address] Gastroenterology 05/26/24 documented as of this encounter
--- OUTSIDE RECORDS SUMMARY | 2024-07-20 10:57 | XMS_ITS | Encounter Summary ---
Author Organization [email or web address] Address [address] [facility] 7t [place] [address] Care Team Providers Care Library Consultant Name Role Phone Emilie Davis MD Primary Care Provider +1- [phone] Morales Echavarria [facility] Unavailable Unavailable August Unavailable Encounter Details Date Type Department Care Team (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 file Not on file documented as of this encounter Plan of Treatment Upcoming Encounters Date Type Department Care Team (Late st Contact Info) Description 07/23/2024 1:00 PM EDT Clinical Support [facility]INE [address] [place] [address] Medina Lewis RN [address] [place] [address] documented as of this encounter Visit Diagnoses Not on filedocumented in this encounter Additional Health Concerns Assessment Noted Time PHQ-9 Depression Total Score: 3 04/30/20 23 9:17 AM EST documented as of this encounter Care Teams Library Consultant Relationship Specialty Start Date End Date Emilie Davis MD [address] [place] [address] PCP - General Family Medicine 05/13/18 Morales Echavarria FNP [address] [place] [address] Nurse Practitioner Family Medicine 04/16/23 Pam August [address] 3rd [place] [address] Gastroenterology 05/26/24 documented as of this encounter
--- OUTSIDE RECORDS SUMMARY | 2024-07-20 10:57 | XMS_ITS | Encounter Summary ---
Author Organization [employer] [facility] Address [address] [place] [address] 7 [place] [address] Care Team Providers Care Client Onboarding Analyst Name Role Phone Emilie Davis MD Primary Care Provider +1- [phone] Morales Echavarria ASPHALT PAVING SUPERVISOR Unavailable Unavailable August Unavailable Reason for Visit * Reason Comments Med Refill Encounter Details Date Type Department Care Team (Late st Contact Info) Description 06/27/2022 Refill [facility] [address] [place] [address] Emilie Davis MD [address] [place] [address] Social History Tobacco Use Types Packs/Day Years Used Date Smoking Tobacco: Never Assessed Comments Unknown Sex and Gender Information Value Date Recorded Sex Assigned at Female 03/12/2022 10:32 AM EDT Legal Sex Male 10:32 AM EDT Gender Identity Transgender Male 03/12/2022 10:3 2 AM EDT Sexual Orientation Choose not to disclose 2021 10:32 AM EDT documented as of this encounter Plan of Treatment Upcoming Encounters Date Type Department Care Team (Late st Contact Info) Description 07/23/2024 1:00 PM EDT Clinical Support [facility] [address] [place] [address] Medina Lewis RN [address] [place] [address] documented as of this encounter Visit Diagnoses Not on filedocumented in this encounter Care Teams Client Onboarding Analyst Relationship Specialty Start Date End Date Emilie Davis MD [address] [place] [address] PCP - General Family Medicine 05/13/18 Morales Echavarria FNP 230 [place] [address] Nurse Practitioner Family Medicine 04/16/23 Aida Orozco [address] [place] [address] 3rd [place] [address] Gastroenterology 05/26/24 documented as of this encounter
--- OUTSIDE RECORDS SUMMARY | 2024-07-20 10:57 | XMS_ITS | Encounter Summary ---
Author Organization [employer] Address 75 [facility] 7t [place] [address] Care Team Providers Care Chemical Engineer Name Role Phone Emilie Davis MD Primary Care Provider +1- [phone] Morales Echavarria [facility] Unavailable Unavailable August Unavailable Encounter Details Date Type Department Care Team ([facility] st Contact Info) Description 03/25/2023 Orders Only [facility] [address] [place], [place] [phone] Emilie Davis MD 230 [place] [address] Social History Tobacco Use Types Packs/Day Years Used Date Smoking Tobacco: Never Passive Smoke Exposure: Never Smokeless Tobacco: Never Depression Answer Date Recorded Patient Health Questionnaire-9 Score 10 02/28/2023 Patient Health Questionnaire-9 Score 10 02/28/2023 Last PHQ-9: Questionnaire Data Not on file 1 Housing Stability Answer Date Recorded What is your housing situation today? I have brenda ta 02/28/[address] you li ve. Do you have problems with any of the following? None of the above 02/28/2023 Food Insecurity Answer Date Recorded Within the past 12 months, y ou worried that your food would run out before you got money to buy more: Never True 02/28/2023 Within the past 12 months,th e food you bought just didn't last and you didn't have enough money to get more: Never True Transportation Answer Date Recorded In the past 12 months, has l ack of transportation kept you from medical appts, meetings, work or from getting things needed for daily living? No 02/28/2023 Utilities Answer Date Recorded In the past 12 months, has t he electric, gas, oil or water company threatened to shut off services in your home? No 02/28/2023 Depression Answer Date Recorded Patient Health Questionnaire-2 Score 4 02/28/2023 Comments Unknown Sex and Gender Information Value [...] Description 07/23/2024 1:00 PM EDT Clinical Support [facility] [address] [place] [address] Medina Lewis, RONALD [address] [place], [place] documented as of this encounter Visit Diagnoses Not on filedocumented in this encounter Additional Health Concerns Assessment Noted Time PHQ-9 Depression Total Score: 10 023 9:08 AM EDT documented as of this encounter Care Teams Chemical Engineer Relationship Specialty Start Date End Date Emilie Davis MD [address] [place] [address] PCP - General Family Medicine 05/13/18 Morales Echavarria FNP [address] [place] [address] Nurse Practitioner Family Medicine 04/16/23August [address] [place] [address] Drive 3rd [place] [address] Gastroenterology 05/26/24 documented as of this encounter
--- OUTSIDE RECORDS SUMMARY | 2024-07-20 10:57 | XMS_ITS | Encounter Summary ---
Author Organization [employer] [facility] Address [address] [place] [address] 7 [place] [address] Care Team Providers Care Tailings Worker Name Role Phone Emilie Davis MD Primary Care Provider +1- [phone] Morales Echavarria WATER TREATMENT OPERATOR Unavailable Unavailable August Unavailable Reason for Visit * Reason Onset Date Comments Referral 07/18/2022 Encounter Details Date Type Department Care Team ([facility] Contact Info) Description 07/18/[address] [facility] [address] [place] [address] Emilie Davis MD 230 [place] [address] Referral Social History Tobacco Use Types Packs/Day Years Used Date Smoking Tobacco: Never Assessed Comments Unknown Sex and Gender Information Value Date Recorded Sex Assigned at Female 03/12/2022 10:32 AM EDT Legal Sex Male 10:32 AM EDT Gender Identity Transgender Male 03/12/2022 10:3 2 AM EDT Sexual Orientation Choose not to disclose 2021 10:32 AM EDT documented as of this encounter Miscellaneous Notes * Telephone Encounter - Yuni Hugo - 07/18/2022 1:44 PM EST Tc from pt requesting a referral for the vision center. Pt states that provider already has done one but referral was sent somewhere else, if Provider could sent it to our vision center. Please contact pt [phone] documented in this encounter Plan of Treatment Upcoming Encounters Date Type Department Care Team ([facility] Contact Info) Description 07/23/2024 1:00 PM EDT Clinical Support [facility] [address] [place] [address] Medina Lewis, RONALD 230 [place] [address] documented as of this encounter Visit Diagnoses Not on filedocumented in this encounter Care Teams Tailings Worker Relationship Specialty Start Date End Date Emilie Davis MD 230 [place] [address] PCP - General Family Medicine 05/13/18 Morales Echavarria FNP [address] [place] [address] Nurse Practitioner Family Medicine 04/16/[address] [place] [address] 3rd [place] [address] Gastroenterology 05/26/24 documented as of this encounter
--- OUTSIDE RECORDS SUMMARY | 2024-07-20 10:57 | XMS_ITS | Encounter Summary ---
Author Organization [employer] [facility] Address [address] [place] [address] 7t [place] [address] Care Team Providers Care Leather Roller Name Role Phone Emilie Davis MD Primary Care Provider +1- [phone] Morales Echavarria TRANSPORT DRIVER Unavailable Unavailable August Unavailable Encounter Details Date Type Department Care Team (Late Contact Info) Description 04/22/2022 Orders Only [facility] [address] [place], [place] [phone] Emilie Davis MD 230 [place] [address] HSV (herpes simplex virus) anogenital infection (Primary Dx) Social History Tobacco Use Types Packs/Day Years [...] Description 07/23/2024 1:00 PM EDT Clinical Support [facility] [address] [place] [address] Medina Lewis, RONALD 230 [place] [address] documented as of this encounter Visit Diagnoses Diagnosis HSV (herpes simplex virus) anogenital infection- Primary Herpes simplex without mention of complication documented in this encounter Care Teams Leather Roller Relationship Specialty Start Date End Date Emilie Davis MD 230 [place] [address] PCP - General Family Medicine 05/13/18 Morales Echavarria FNP [address] [place] [address] Nurse Practitioner Family Medicine 04/16/23 Pam August [address] [place] [address] 3rd [place] [address] Gastroenterology 05/26/24 documented as of this encounter
--- OUTSIDE RECORDS SUMMARY | 2024-07-20 10:57 | XMS_ITS | Encounter Summary ---
Author Organization [employer] Address [address] [facility] [address] 7t [place] [address] Care Team Providers Care Executive Sales Manager Name Role Phone [place], Emilie MARISCAL Primary Care Provider +1- [phone] Morales Echavarria Unavailable Unavailable August Unavailable Encounter Details Date Type Department Care Team ([facility] st Contact Info) Description 07/16/2024 Telephone [facility] MEDICINE 230 [place] [address] Medina Lewis RN [address] [place] [address] Social History Tobacco Use Types Packs/Day Years [...] 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 file Not on file documented as of this encounter Plan of Treatment Upcoming Encounters Date Type Department Care Team (Late st Contact Info) Description 07/23/2024 1:00 PM EDT Clinical Support [facility] MEDICINE [address] [place] [address] Medina Lewis, RONALD [address] [place] [address] documented as of this encounter Visit Diagnoses Not on filedocumented in this encounter Additional Health Concerns Assessment Noted Time PHQ-9 Depression Total Score: 3 04/30/20 23 9:17 AM EST documented as of this encounter Care Teams Executive Sales Manager Relationship Specialty Start Date End Date Emilie Davis MD [address] [place] [address] PCP - General Family Medicine 05/13/18 Morales Echavarria FNP [address] [place] [address] Nurse Practitioner Family Medicine 04/16/23OrozcoAugust [address] [place] [address] Drive 3rd [place] [address] Gastroenterology 05/26/24 documented as of this encounter
--- OUTSIDE RECORDS SUMMARY | 2024-07-20 10:57 | XMS_ITS | Encounter Summary ---
Author Organization [employer] [facility] Address [address] [place] [address] 7 [place] [address] Care Team Providers Care Computational Scientist Name Role Phone Emilie Davis MD Primary Care Provider +1- [phone] Morales Echavarria COAL HIKER Unavailable Unavailable August Unavailable Encounter Details Date Type Department Care Team (Late Contact Info) Description 05/27/2022 Abstract [facility] MEDICINE [address] [place] [address] [phone] Emilie Davis MD [address] [place] [address] [phone] Social History Tobacco Use Types Packs/Day Years [...] Encounters Date Type Department Care Team (Late Contact Info) Description 07/23/2024 1:00 PM EDT Clinical Support [facility] MED[facility]INE [address] [place] [address] [phone] Medina Lewis, RONALD [address] [place] [address] [phone] documented as of this encounter Procedures Procedure Name Priority Date/Time Associated Diagnosis Comments HM COLONOSCOPY Routine 01/30/2018 HPV HIGH RISK PCR Routine 12/06/2017 12: 00 AM EDT PAP SMEAR Routine 12/06/2017 12:00 AM EDT documented in this encounter Results * Hm Colonoscopy (01/30/2018) Colonoscopy normal Historical Provider HEALTH MAINTENANCE Final Result * HPV High Risk PCR (12/06/2017 12:00 AM EDT) Swab Historical Provider LAB MICROBIOLOGY - GENERA L ORDERABLES Final Result IMAGING * Pap Smear (12/06/2017 12:00 AM EDT) Swab Historical Provider LAB CYTOLOGY ORDERABLES F inal Result Performing Organization Address [facility] Co de Phone Number [facility] [address] [place] [address] [phone] documented in this encounter Visit Diagnoses Not on filedocumented in this encounter Care Teams Computational Scientist Relationship Specialty Start Date End Date Emilie Davis MD [address] [place] [address] PCP - General Family Medicine 05/13/18 Morales Echavarria FNP [address] [place] [address] Nurse Practitioner Family Medicine 04/16/[address] 3rd [place] [address] Gastroenterology 05/26/24 documented as of this encounter
--- OUTSIDE RECORDS SUMMARY | 2024-07-20 10:57 | XMS_ITS | Encounter Summary ---
Author Organization [employer] Address [address] [facility] 7t [place] [address] Care Team Providers Care Resident Service Coordinator Name Role Phone Emilie Davis MD Primary Care Provider +1- [phone] Morales Echavarria CUSTOMER SUPPORT REPRESENTATIVE Unavailable Unavailable August Unavailable Reason for Visit * Reason Comments Med Refill Encounter Details Date Type Department Care Team ([facility] st Contact Info) Description 01/17/[address] 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 MEDICINE [address] [place] [phone] Medina Lewis RN [address] [place] [address] documented as of this encounter Visit Diagnoses Diagnosis Gender 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- Primary documented in this encounter Additional Health Concerns Assessment Noted Time PHQ-9 Depression Total Score: 3 04/30/20 23 9:17 AM EST documented as of this encounter Care Teams Resident Service Coordinator Relationship Specialty Start Date End Date Emilie Davis MD [address] [place] [address] PCP - General Family Medicine 05/13/18 Morales Echavarria FNP [address] [place] [address] Nurse Practitioner Family Medicine 04/16/23August [address] [place] [address] [address] [place] [address] Gastroenterology 05/26/24 documented as of this encounter
--- OUTSIDE RECORDS SUMMARY | 2024-07-20 10:57 | XMS_ITS | Encounter Summary ---
Author Organization [employer] Address [address] [facility] 7t [place] [address] Care Team Providers Care Rubber Roller Grinder Name Role Phone Emilie Davis MD Primary Care Provider +1- [phone] Morales Echavarria MACHINE UMBRELLA TIPPER Unavailable Unavailable August Unavailable Reason for Visit * Reason Onset Date Comments May recalls 06/30/2024 Encounter Details Date Type Department Care Team ([facility] st Contact Info) Description 06/30/2024 Telephone [facility] MEDICINE [address] [place] [address] Emilie Davis MD [address] [place] [address] September recalls Social History Tobacco Use Types Packs/Day Years [...] 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 I sent the reminder via mail. documented in this encounter Plan of Treatment Upcoming Encounters Date Type Department Care Team (Late st Contact Info) Description 07/23/2024 1:00 PM EDT Clinical Support [facility] MEDICINE [address] [place] [address] Medina Lewis, RONALD [address] [place] [address] documented as of this encounter Visit Diagnoses Not on filedocumented in this encounter Additional Health Concerns Assessment Noted Time PHQ-9 Depression Total Score: 3 04/30/20 23 9:17 AM EST documented as of this encounter Care Teams Rubber Roller Grinder Relationship Specialty Start Date End Date Emilie Davis MD [address] [place] [address] PCP - General Family Medicine 05/13/18 Morales Echaavrria FNP [address] [place] [address] Nurse Practitioner Family Medicine 04/16/23 Aida Orozco [address] [place] [address] 3rd [place] [address] Gastroenterology 05/26/24 documented as of this encounter
--- OUTSIDE RECORDS SUMMARY | 2024-07-20 10:58 | XMS_ITS | Encounter Summary ---
Author Organization [employer] Address [address] [facility] 7t [place] [address] Care Team Providers Care Car Ferry Captain Name Role Phone Emilie Davis MD Primary Care Provider +1- [phone] Morales Echavarria TOBACCO SAMPLER Unavailable Unavailable August Unavailable Reason for Visit * Reason Onset Date Comments Med Refill 04/22/2024 Encounter Details Date Type Department Care Team ([facility] st Contact Info) Description 04/22/2024 Telephone [facility] MEDICINE [address] [place] [address] Emilie Davis MD [address] [place] [address] Med Refill Social History Tobacco Use Types Packs/Day Years [...] Recorded Patient Health Questionnaire-2 Score 2 04/30/2023 Internet Access Answer Date Recorded Internet Access [...] encounter Miscellaneous Notes * Telephone Encounter - Zoya Perez LPN - 04/22/2024 9:18 AM EST Please review request below.Medication is no longer on current med list * Telephone Encounter - Yasmeen Cordova - 04/22/2024 8:59 AM EST TC from pt requesting medication refill. Medications needing refill : acyclovir (Zovirax) 200 MG/5ML suspension To be sent to: [facility] - [place], [place] - [address] [facility] documented in this encounter Plan of Treatment Upcoming Encounters Date Type Department Care Team ([facility] st Contact Info) Description 07/23/2024 1:00 PM EDT Clinical Support [facility] MEDICINE [address] [place] [address] Medina Lewis, RN [address] [place] [address] documented as of this encounter Visit Diagnoses Not on filedocumented in this encounter Additional Health Concerns Assessment Noted Time PHQ-9 Depression Total Score: 3 04/30/20 23 9:17 AM EST documented as of this encounter Care Teams Car Ferry Captain Relationship Specialty Start Date End Date Emilie Dvais MD [address] [place] [address] PCP - General Family Medicine 05/13/18 Morales Echavarria FNP [address] [place] [address] Nurse Practitioner Family Medicine 04/16/23August [address] [place] [address] 3rd [place] [address] Gastroenterology 05/26/24 documented as of this encounter
--- OUTSIDE RECORDS SUMMARY | 2024-07-20 10:58 | XMS_ITS | Encounter Summary ---
Author Organization [employer] [facility] Address [address] [place] [address] 7t [place] [address] Care Team Providers Care Waste Water Operator Name Role Phone Emilie Davis MD Primary Care Provider +1- [phone] Morales Echavarria MEDICAL RECORD LIBRARIAN Unavailable Unavailable August Unavailable Encounter Details Date Type Department Care Team (Late Contact Info) Description 11/28/2022 Abstract [facility] MEDICINE [address] [place] [phone] Emilie Davis MD [address] [place] [address] [phone] Social History Tobacco Use Types Packs/Day Years Used Date Smoking Tobacco: Never Passive Smoke Exposure: Never Smokeless Tobacco: Never Comments Unknown Sex and Gender Information Value Date Recorded Sex Assigned at Female 03/12/2022 10:32 AM EDT Legal Sex Male 10:32 AM EDT Gender Identity Transgender Male 03/12/2022 10:3 2 AM EDT Sexual Orientation Choose not to disclose 2021 10:32 AM EDT COVID-19 Exposure Response Date Recorded In the last 10 days, have yo u been in contact with someone who was confirmed or suspected to have Coronavirus/COVID-19? No / Unsure 11/19/2022 1:33 PM EDT documented as of this encounter Plan of Treatment Upcoming Encounters Date Type Department Care Team (Late Contact Info) Description 07/23/2024 1:00 PM EDT Clinical Support [facility] MEDICINE [address] [place] [address] Medina Lewis, RONALD [address] [place] [address] documented as of this encounter Visit Diagnoses Not on filedocumented in this encounter Additional Health Concerns Assessment Noted Time PHQ-9 Depression Total Score: 19 023 9:24 AM EDT documented as of this encounter Care Teams Waste Water Operator Relationship Specialty Start Date End Date Emilie Davis MD [address] [place] [address] PCP - General Family Medicine 05/13/18 Morales Echavarria FNP [address] [place] [address] Nurse Practitioner Family Medicine 04/16/23August [address] [place] [address] 3rd [place] [address] Gastroenterology 05/26/24 documented as of this encounter
--- OUTSIDE RECORDS SUMMARY | 2024-07-20 10:58 | XMS_ITS | Encounter Summary ---
Author Organization [employer] [facility] Address [address] [place] [address] 7t [place] [address] Care Team Providers Care Splicing Supervisor Name Role Phone Emilie Davis MD Primary Care Provider +1- [phone] Morales Echavarria Unavailable Unavailable August Unavailable Reason for Visit * Reason Comments Med Refill Encounter Details Date Type Department Care Team ([facility] st Contact Info) Description 01/01/2023 Refill [facility] MEDICINE [address] [place] [address] Emilie Davis MD [address] [place] [address] Social History Tobacco Use Types Packs/Day Years [...] encounter Miscellaneous Notes * Telephone Encounter - Werner Wayne RN - 01/02/2023 8:54 AM EDT T/C to patient via clinical trial educator regarding x-ray result. 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.No fracture.Thanks ----- Message ----- From: Interface, Ris Results In Sent: 01/01/2023 12:03 PM EDT To: Erika Betts MD documented in this encounter Plan of Treatment Upcoming Encounters Date Type Department Care Team (Late st Contact Info) Description 07/23/2024 1:00 PM EDT Clinical Support [facility] MEDICINE [address] [place] [address] Medina Lewis, RONALD [address] [place] [address] documented as of this encounter Visit Diagnoses Not on filedocumented in this encounter Additional Health Concerns Assessment Noted Time PHQ-9 Depression Total Score: 19 023 9:24 AM EDT documented as of this encounter Care Teams Splicing Supervisor Relationship Specialty Start Date End Date Emilie Davis MD [address] [place] [address] PCP - General Family Medicine 05/13/18 Morales Echavarria FNP [address] [place] [address] Nurse Practitioner Family Medicine 04/16/23August [address] [place] [address] 3rd [place] [address] Gastroenterology 05/26/24 documented as of this encounter
--- OUTSIDE RECORDS SUMMARY | 2024-07-20 10:58 | XMS_ITS | Clinical Summary ---
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 communication 04/30/2024 Telephone [facility] [place] [address] Sahil Puente, RN 04/23/2024 Refill [facility] [place] [address] Emilie Davis MD 04/22/2024 Telephone [facility] [address] Sahil Puente, RN PrEP communication 04/22/2024 Orders Only [facility] [place] [address] Emilie Davis MD HSV (herpes simplex virus) anogenital infection 04/22/2024 Telephone [facility] [address] Emilie Davis MD Med Refill from Last 3 Months Immunizations Name Administration Dates Next Due Hep A, Adult 03/16/2024,12/07/2022 Hep B, adult 03/16/2024,01/07/2023,12/07/2022 Influenza injectable quadriv alent IIV4 with preservative 03/31/2018 Influenza injectable quadriv alent preservative free 06/18/2019 Moderna Covid-19 Vaccine 12+ 06/05/2021,10/12/19 21,09/14/2020 Pneumococcal Polysaccharide PPSV23 09/17/2017 Tdap 06/18/2019 Varicella 12/07/2022 Family History Medical History Relation Name Comments Breast cancer Maternal Grandmother Breast cancer Mother Breast cancer Sister 1 Uterine cancer Sister 2 Relation Name Status Comments Maternal Grandmother Mother Sister 1 Sister 2 Alive Social History Tobacco Use Types Packs/Day Years Used Date Smoking Tobacco: Never Passive Smoke Exposure: Never Smokeless Tobacco: Never Tobacco Cessation:Counseling Given: Not Answered Alcohol Answer Date Recorded How often do [...] 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 Not on file Not on file Last Filed Vital Signs Vital Sign Reading Time Taken Comments Blood Pressure 105/73 05/20/2024 4:01 PM EST Pulse 67 05/20/2024 4:01 PM EST Temperature 36.2 ??C (97.1 ??F) 05/20/2024 4:01 PM ES T Respiratory Rate 20 05/20/2024 4:01 PM EST Oxygen Saturation 98% 05/20/2024 4:01 PM EST Inhaled Oxygen Concentration - - Weight 51.2 kg (112 lb 12.8 oz) 05/20/2024 4:01 PM EST Height 161.3 cm (5' 3.5 ) 05/20/2024 4:01 PM EST Body Mass Index 19.67 05/20/2024 4:01 PM EST Plan of Treatment Upcoming Encounters Date Type Department Care Team (Late st Contact Info) Description 07/23/2024 1:00 PM EDT Clinical Support [facility] [address] [place] [address] Medina Lewis, RN [address] [place] [address] Health Maintenance Due Date Last Done Comments CT Colonography 1969 FIT DNA/Cologuard 1970 FIT 1970 FOBT 1970 Sigmoidoscopy 1970 Pneumococcal Vaccine: 50+ Years (2 of 2 - PCV) 09/17/2018 09/17/2017 Colonoscopy 01/30/2023 01/30/2018 Colorectal Cancer Screening 01/30/2023 Zoster Vaccines (1 of 2) 02/01/2023 Influenza Vaccine (#1) 2024 06/18/2019, 2017 Postponed from 01/12/2024 (Patient Refused) COVID-19 Vaccine ( season) 2025 06/05/2021, 10/11/2020, 09/14/2020 Postponed from 01/12/2024 (Patient Refused) SDOH Screening 03/16/2025 03/16/2024 Alcohol/Substance Use Screening 05/20/2025 05/20/2024 Depression Screening 05/20/2025 05/20/2024, 04/30/20 23 Tobacco Screening 05/20/2025 05/20/2024 HPV/Cotest 03/22/2028 03/22/2023, 11/11, 12/06/2017 Pap Smear 03/22/2028 03/22/2023, 12/06/2017 Lipid Panel 03/18/2029 03/18/2024, 12/2022, 05/22/2021 DTaP/Tdap/Td Vaccines (2 - Td or Tdap) 06/18/2029 06/18/2019 RSV Patients and Patients Aged 60 years or older (1 - 1-dose 75+ series) 02/12/2044 Hepatitis A Vaccines Completed 03/16/2024, 12/08/19 23 Hepatitis B Vaccines Completed 03/16/2024, 01/07/2023, 12/07/2022 HIV Screening Completed 05/21/2024, 01/2024, 03/18/2024, Additional history exists HIB Vaccines Aged Out No longer eligi ble based on patient's age to complete this topic HPV Vaccines Aged Out No longer eligi ble based on patient's age to complete this topic IPV Vaccines Aged Out No longer eligi ble based on patient's age to complete this topic Meningococcal Vaccine Aged Out No jose alberto ta eligible based on patient's age to complete this topic RSV under 20 months Aged Out No longe r eligible based on patient's age to complete this topic Rotavirus Vaccines Aged Out No longer eligible based on patient's age to complete this topic Procedures Procedure Name Priority Date/Time Associated Diagnosis Comments XR HIP 2 OR 3 VIEWS LEFT Routine 06/04/2024 12:17 PM EST Chronic left hip pain HIV 1 RNA, QUANTITATIVE REAL TIME PCR Routine 05/21/2024 3:24 PM EST POCT RAPID HIV SCREENING Routine 05/21/2024 3:23 PM EST On pre-exposure prophylaxis for HIV CT CHEST WO CONTRAST Routine 05/11/2024 4:[address] scan, lung LIPID PANEL, STANDARD Routine 03/18/2024 8:01 AM EST Dyslipidemia HPV MRNA E6/E7 REFLEX TO HPV 16, 18/45 Routine 03/22/2023 11:30 AM EST PAP SMEAR Routine 03/22/2023 11:30 AM EST HM COLONOSCOPY Routine 01/30/2018 from Last 3 Months or Most Recently Relevant to Health Maintenance Results * XR Hip 2 or 3 Views Left (06/04/2024 12:17 PM EST) Anatomical Region Laterality Modality Lower Extremities, Hip Left Radiograp hic Imaging 06/04/2024 12:1 7 PM EST Narrative 06/04/2024 1:06 PM EST ?[facility] ?[address] ?[place] [address] ?XRay Report ? Signed ? Patient: Harriet Valdez ?MR#: [id number] ?? [id number] ? : 1970 ?Acct:[id number] ? Age/Sex: 54 / F ?ADM Date: 06/04/24 ? Loc: HO.HHCX ? Attending Dr: Emilie Davis MD ? Ordering Physician: Emilie Davis MD ?? Date of Service: 06/04/24 ?? Procedure(s): XR hip LT min 2V ?? Accession Number(s): [id number] ? cc: Emilie Davis MD ? EXAMINATION: ?? XR HIP, LEFT ? CLINICAL INFORMATION: ?? chronic left hip pain ? COMPARISON: ?? None available. ? TECHNIQUE: ?? Two views of the left hip. ? FINDINGS: ?? No fracture. Alignment is anatomic. Hip joint space is maintained. Soft ?? tissues are unremarkable. ? XR/XR hip LT min 2V ?? IMPRESSION: ?? Unremarkable left hip exam ? Electronically signed by: ??Jimmy Pedroza MD ??06/04/2024 01:04 PM EST RP ? Dictated By: ?Jimmy Pedroza MD ? Signed By: ?<Electronically signed by Jimmy Pedroza MD in OV> ?06/04/24 1304 ? DD/ 1217 ? TD/TT: 06/04/24 1230 ? Nuclear Scientist: MSM ? Procedure Note Donotuseinterpreter, Image - 06/04/2024 [facility] [address] [place] [address] XRay Report Signed Patient: Harriet VadlezMR#: [id number] : 1970Acct:[id number] Age/Sex: 54 / FADM Date: 06/04/24 Loc: HO.HHCX Attending Dr: Emilie Davis MD Ordering Physician: Emilie Davis MD Date of Service: 06/04/24 Procedure(s): XR hip LT min 2V Accession Number(s): [id number] cc: Emilie Davis MD EXAMINATION: XR HIP, LEFT CLINICAL INFORMATION: chronic left hip pain COMPARISON: None available. TECHNIQUE: Two views of the left hip. FINDINGS: No fracture. Alignment is anatomic. Hip joint space is maintained. Soft tissues are unremarkable. XR/XR hip LT min 2V IMPRESSION: Unremarkable left hip exam Electronically signed by: Jimmy Pedroza MD 06/04/2024 01:04 PM EST Dictated By: Jimmy Pedroza MD Signed By: <Electronically signed by Jimmy Pedroza MD in OV> 06/04/24 1304 DD/ 1217 TD/TT: 06/04/24 1230 Nuclear Scientist: MSM Emilie Davis MD IMG XR PROCEDURES Final Re sult * HIV-1 RNA, Quantitative, Real-Time PCR (05/21/2024 3:24 PM EST) HIV RNA PCR Qn Copies NOT DETECTED NOT DETECTED copies/mL [facility] HIV RNA PCR Qn Log Copies NOT DETECTED NOT DETECTED [facility] Comment:Result Units: Log co pies/mLThis test was performed using Real-Time Polymerase ChainReaction.Reportable Range: 20 copies/mL to 10,000,000 copies/mL(1.30 log copies/mL to 7.00 log copies/mL).THIS TEST WAS PERFORMED AT:[facility] [place] [phone] MALDONADO MD 05/21/2024 3:24 PM EST 05/21/2024 4:15 PM EST us Emilie Davis MD LAB BLOOD ORDERABLES Final Result [facility] [address] [place] [phone] * POCT Rapid HIV Screening (05/21/2024 3:23 PM EST) Blood 05/21/2024 3:23 PM EST Narrative Sahil Puente RN - 05/21/2024 3:23 PM EST HIV ag/ab = negative Belkis Rae MD POINT OF CARE TEST ENTER/TRISHA T ORDERABLES Final Result * CT Chest w/o Contrast (05/11/2024 4:47 PM EST) Anatomical Region Laterality Modality Body, Chest Computed Tomogra phy 05/11/2024 4:47 PM EST Narrative 05/11/2024 4:48 PM EST ? [facility] ?[address] ?[place] [address] ? CT Scan Report ? Signed ? Patient: Trace Roberson,Harriet ?MR#: [id number] ?? [id number] ? : 1970 ?Acct:[id number] ? Age/Sex: 54 / F ?ADM Date: 12/27/24 ? Loc: HO.CT ? Attending Dr: Emilie Davis MD ? Ordering Physician: Emilie Davis MD ?? Date of Service: 05/08/24 ?? Procedure(s): CT chest wo IV con ?? Accession Number(s): [id number] ? cc: Emilie Davis MD ? Report Number: ?? [id number]: Total DLP = ?? 80.00 mGy-cm ? CLINICAL HISTORY: Previous CT performed at [facility] showed multiple interdeterminate nodules ? CT chest without IV contrast. ? COMPARISON: None ? FINDINGS: ?? Visualized thyroid is unremarkable. ?? No supraclavicular or axillary lymphadenopathy. ?? Ascending aorta and main pulmonary artery are normal in caliber. Coronary ?? artery calcifications present within the LAD. Aortic annular ?? calcifications. No pericardial effusion. ?? Air-fluid level present within the mid thoracic esophagus. No mediastinal ?? lymphadenopathy. ? No pleural effusion. No consolidation. ?? Trachea and central airways are clear. No significant bronchial wall ?? thickening. No bronchiectasis. ?? Calcified granulomas present within the right lower lobe and left lower ?? lobe. ? Mild spondylosis. No acute fracture or suspicious bone lesion. ? IMPRESSION: ?? 1. No acute intrathoracic findings. Calcified granulomas present ?? bilaterally. No suspicious pulmonary nodule identified. ?? 2. Air-fluid level present within the midthoracic esophagus can be ?? associated with gastroesophageal reflux disease and esophageal ?? dysmotility. ?? 3. Coronary artery atherosclerosis. ? This document has been electronically signed by: Juan Álvarez MD on ?? 05/11/2024 16:47:03 ? Dictated By: ?Juan Álvarez MD ? Signed By: ?<Electronically signed by Juan Álvarez MD in OV> ?05/11/24 1648 ? DD/ 1647 ? TD/TT: 05/11/24 1647 ? Nuclear Scientist: ? Procedure Note Helen, Image - 05/11/[address] [address] [address] Scan Report Signed Patient: Harriet Valdez#: [id number] : 1970Acct:[id number] Age/Sex: 54 / FADM Date: 05/08/24 Loc: HO.CT Attending Dr: Emilie Davis MD Ordering Physician: Emilie Davis MD Date of Service: 05/08/24 Procedure(s): CT chest wo IV con Accession Number(s): [id number] cc: Emilie Davis MD Report Number: [id number]: Total DLP = 80.00 mGy-cm CLINICAL HISTORY: Previous CT performed at [facility] showed multipleinterdeterminate nodules CT chest without IV contrast. COMPARISON: None FINDINGS: Visualized thyroid is unremarkable. No supraclavicular or axillary lymphadenopathy. Ascending aorta and main pulmonary artery are normal in caliber. Coronary artery calcifications present within the LAD. Aortic annular calcifications. No pericardial effusion. Air-fluid level present within the mid thoracic esophagus. No mediastinal lymphadenopathy. No pleural effusion. No consolidation. Trachea and central airways are clear. No significant bronchial wall thickening. No bronchiectasis. Calcified granulomas present within the right lower lobe and left lower lobe. Mild spondylosis. No acute fracture or suspicious bone lesion. IMPRESSION: 1. No acute intrathoracic findings. Calcified granulomas present bilaterally. No suspicious pulmonary nodule identified. 2. Air-fluid level present within the midthoracic esophagus can be associated with gastroesophageal reflux disease and esophageal dysmotility. 3. Coronary artery atherosclerosis. This document has been electronically signed by: Juan Álvarez MD on 05/11/2024 16:47:03 Dictated By: Juan Álvarez MD Signed By: <Electronically signed by Juan Álvarez MD in OV> 05/11/24 1648 DD/ 164 TD/TT: 05/11/241646 Nuclear Scientist: Emilie Davis MD IM CT PROCEDURES Final Re sult * (ABNORMAL) Lipid Panel, Standard (03/18/2024 8:01 AM EST) Triglycerides 61 <150 mg/dL [facility] Comment:Desirable Triglyceri de: less than 150 mg/dLBorderline High Triglyceride 150-199 mg/dLHigh Triglyceride: 200-499 mg/dLVery High Triglyceride: greater than or equal to 5OO mg/dL Cholesterol 169 <200 mg/dL [facility] Comment:Desirable Cholestero l: less than 200 mg/dLBorderline High Cholesterol: 200-239 mg/dLHigh Cholesterol: greater than 239 mg/dL LDL Cholesterol Calculated 101(H) <100 mg/dL [facility] Comment:Desirable LDL: less than 100 mg/dLNear Optimal/Above Optimal LDL: 110- 129 mg/dLBorderline High LDL: 130-159 mg/dLHigh LDL: 160-189 mg/dLVery High LDL: greater than or equal to 190 mg/dL HDL Cholesterol 56 >40 mg/dL [facility] Comment:Desirable HDL: great er than 40 mg/dL Note: This HDL assay may give artificially low results in patients with liver disease. Blood Venous blood specimen / Unknown 03/18/2024 8:01 AM EST 03/18/2024 8:04 AM EST us Emilie Davis MD LAB BLOOD ORDERABLES Final Result [facility] [address] [place] [address] [phone] * HPV mRNA E6/E7 w/Reflex to HPV Genotypes 16, 18/45 (03/22/2023 11:30 AM EST) HPV nRNA E6/E7 Not Detected Not Detected [facility] Comment:Methodology: Transcr iption-Mediated AmplificationThis assay detects E6/E7 viral messenger RNA (mRNA) from 14high-risk HPV types (16,18,31,33,35,39,45,51,52,56,58,59,66,68).Cervical sources are required for HPV testing.If a vaginal source from a patient who has had atotal hysterectomy with removal of cervix wassubmitted, please contact the testing laboratoryfor alternative testing options.For additional information, please refer tohttp://education.Portalarium/faq/WBB949r2(This link if provided for information/educational purposes only.)THIS TEST WAS PERFORMED AT:[facility] [place] [phone] MALDONADO MD HPV mRNA E6/E7 TNP [facility] HPV 16 RNA TNP [facility] HPV 18/45 RNA [facility] 03/22/2023 11:3 0 AM EST 03/25/2023 12:20 PM EST us Emilie Davis MD LAB CYTOLOGY ORDERABLES Fi nal Result [facility] [address] [place] [address] [phone] * Pap Smear (03/22/2023 11:30 AM EST) 03/22/2023 11:3 0 AM EST 03/25/2023 12:20 PM EST Narrative [facility] - 04/11/2023 11:26 AM EST ----- ------- Name: Harriet Valdez ?Age/Sex: 53/F ? : 1970 Unit#: [id number] ?? Attend Dr: RADHA VILLAREAL ?Re03/22/23 ?Status: DEP REF ? Location: HO.HHCLNP ? Disch: ? ----- ------- SPEC : [id number] ?RECD: 03/25/23 ? STATUS: ??SOUT ? REQ NUM: [id number] ? AMBREEN: 03/22/23 ? SUBM DR: Emilie Davis MD ? ENTERED: ??03/25/233154 ?SP TYPE: Pap Smr ?OTHR DR: ? ORDERED: ??Pap Smear ? Interpretation ?? Satisfactory for evaluation. ?? Negative for intraepithelial lesion or malignancy. ?HPV mRNA E6/E7: ?NOT DETECTED ? This assay detects E6/E7 viral messenger RNA (mRNA) from 14 high-risk HPV types (16, 18, ?? 31, 33, 35, 39, 45, 51, 52, 56, 58, 59, 66, 68) ?? HPV testing performed by [facility], [place], [place]. ??See reference laboratory ?? portion of the EMR for entire report. ?Clinical Information LMP: Unknown date Previous PAP test: Unknown date, WNL Other history: Pt on testosterone, surgical post menopause ? Material Received ?? ThinPrep-Cervical ----- ------- Signed (signature on file) SERENA Alejandro ([facility]) 04/11/23 1126 ? ----- ------- ? END OF REPORT ? Emilie Davis MD LAB CYTOLOGY ORDERABLES Fi nal Result [facility] [address] [place] [phone] * Colonoscopy (01/30/2018) Colonoscopy normal Historical Provider HEALTH MAINTENANCE Final Result from Last 3 Months or Most Recently Relevant to Health Maintenance Insurance [facility] * Guarantor: Harriet Valdez Account Type Relation to Patient Date of Phone Billing Address Personal/Family Self Rani [address] [address] * Guarantor: Harriet Valdez Account Type Relation to Patient Date of Phone Billing Address Personal/Family Self Rani [address] [place] [address] * Guarantor: Harriet Valdez Account Type Relation to Patient Date of Phone Billing Address Personal/Family Self Rani [address] Advance Directives Documents on File Type Date Recorded 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
== END 2024-07-20 10:27 | disposition home or self-care (01) ==
PROVIDERS: Visit Provider Internal Medicine Cardiovascular Disease
DX: I25.10 Atherosclerotic heart disease of native coronary artery without angina pectoris (principal); R06.09 Other forms of dyspnea
CPT/HCPCS: 93010; 99214

== ENCOUNTER → 2024-07-20 09:57 | Outpatient (BNVA) | payer OTHER, SELFPAY | PROVIDERS: Visit Provider Internal Medicine Cardiovascular Disease | DX: I25.10 Atherosclerotic heart disease of native coronary artery without angina pectoris (principal); I25.2 Old myocardial infarction; R06.09 Other forms of dyspnea; Z87.891 Personal history of nicotine dependence | CPT/HCPCS: 93005; 99212 ==

== ENCOUNTER 2024-07-24 13:33 | Outpatient (REF) | payer OTHER, SELFPAY ==
--- OUTSIDE RECORDS SUMMARY | 2024-07-24 15:12 | XMS_ITS | Encounter Summary ---
Author Organization [place] Address [address] [facility] 7t [place] [address] Care Team Providers Care Wind Operations Supervisor Name Role Phone Emilie Davis MD Primary Care Provider +1- [phone] Morales Echavarria Unavailable Unavailable August Unavailable Fred Castanon Unavailable Reason for Visit * Reason Comments Med Refill Encounter Details Date Type Department Care Team ([facility] st Contact Info) Description 01/17/2024 Refill [facility] [address] [place] [address] Emilie Davis MD [address] [place], [place] [phone] 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) Social [...] Care Team (Late st Contact Info) Description 09/22/2024 9:00 AM EDT Clinical Support [facility] [address] [place] [address] Medina Lewis RN [address] [place] [address] documented as of this encounter Visit Diagnoses Diagnosis Gender 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- Primary documented in this encounter Additional Health Concerns Assessment Noted Time PHQ-9 Depression Total Score: 3 04/30/20 23 9:17 AM EST documented as of this encounter Care Teams Wind Operations Supervisor Relationship Specialty Start Date End Date Emilie Davis MD [address] [place] [address] PCP - General Family Medicine 05/13/18 Morales Echavarria FNP [address] [place] [address] Nurse Practitioner Family Medicine 04/16/23August [address] [address] Gastroenterology 05/26/24 Fred Castanon [address] [place] [address] 07/21/24 documented as of this encounter
--- OUTSIDE RECORDS SUMMARY | 2024-07-24 15:12 | XMS_ITS | Encounter Summary ---
Author Organization [employer] Address 75 [facility] 7t [place] [address] Care Team Providers Care Production Control Expert Name Role Phone Emilie Davis MD Primary Care Provider +1- [phone] Morales Echavarria Unavailable Unavailable August Unavailable Fred Castanon Unavailable Encounter Details Date Type Department Care Team (Late st Contact Info) Description 03/25/2023 Orders Only [facility] [address] [place], [place] [phone] Emilie Davis MD [address] [place], [place] [phone] Social History Tobacco Use Types Packs/Day Years [...] Description 09/22/2024 9:00 AM EDT Clinical Support [facility] [address] [place] [address] Medina Lewis RN [address] [place] [address] documented as of this encounter Visit Diagnoses Not on filedocumented in this encounter Additional Health Concerns Assessment Noted Time PHQ-9 Depression Total Score: 10 023 9:08 AM EDT documented as of this encounter Care Teams Production Control Expert Relationship Specialty Start Date End Date Emilie Davis MD [address] [place] [phone] PCP - General Family Medicine 05/13/18 Morales Echavarria FNP [address] [place] [address] Nurse Practitioner Family Medicine 04/16/23August [address] [place] [address] Gastroenterology 05/26/24 Fred Castanon [address] [place] [address] 07/21/24 documented as of this encounter
--- OUTSIDE RECORDS SUMMARY | 2024-07-24 15:12 | XMS_ITS | Encounter Summary ---
Author Organization [employer] Address 75 [facility] 7t [place] [address] Care Team Providers Care Lineman Apprentice Name Role Phone Emilie Davis MD Primary Care Provider +1- [phone] 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 Not on file Not on file documented as of this encounter Plan of Treatment Upcoming Encounters Date Type Department Care Team (Late st Contact Info) Description 09/22/2024 9:00 AM EDT Clinical Support [facility] [address] [place] [address] Medina Lewis RN [address] [place] [phone] documented as of this encounter Visit Diagnoses Not on filedocumented in this encounter Additional Health Concerns Assessment Noted Time PHQ-9 Depression Total Score: 3 04/30/20 23 9:17 AM EST documented as of this encounter Care Teams Lineman Apprentice Relationship Specialty Start Date End Date Emilie Davis MD [address] [place] [address] PCP - General Family Medicine 05/13/18 Morales Echavarria FNP [address] [place] [address] Nurse Practitioner Family Medicine 04/16/23 Pam August [address] 3rd [place] [address] Gastroenterology 05/26/24 documented as of this encounter
--- OUTSIDE RECORDS SUMMARY | 2024-07-24 15:12 | XMS_ITS | Encounter Summary ---
Author Organization [employer] [facility] Address [address] [place] [address] 7 [place] [address] Care Team Providers Care Tobacco Sampler Name Role Phone Emilie Davis MD Primary Care Provider +1- [phone] Morales Echavarria Unavailable Unavailable August Unavailable Fred Castanon Unavailable Reason for Visit * Reason Comments Med Refill Encounter Details Date Type Department Care Team (Late st Contact Info) Description 01/01/2023 Refill [facility] MEDICINE [address] [place] [address] Emilie Davis MD 230 [place] [address] Social History Tobacco Use Types Packs/Day Years [...] 8:54 AM EDT T/C to patient via roll winder regarding x-ray result. No answer, message left [...] Description 09/22/2024 9:00 AM EDT Clinical Support [facility] MEDICINE [address] [place] [address] Medina Lewis, RONALD [address] [place] [address] documented as of this encounter Visit Diagnoses Not on filedocumented in this encounter Additional Health Concerns Assessment Noted Time PHQ-9 Depression Total Score: 19 023 9:24 AM EDT documented as of this encounter Care Teams Tobacco Sampler Relationship Specialty Start Date End Date Emilie Davis MD [address] [place] [address] PCP - General Family Medicine 05/13/18 Morales Echavarria FNP [address] [place] [address] Nurse Practitioner Family Medicine 04/16/23August [address] [place] [address] Gastroenterology 05/26/24 Fred Castanon [address] [place] [address] 07/21/24 documented as of this encounter
--- OUTSIDE RECORDS SUMMARY | 2024-07-24 15:12 | XMS_ITS | Encounter Summary ---
Author Organization [employer] [facility] Address [address] [place] [address] 7 [place] [address] Care Team Providers Care Prevention Coordinator Name Role Phone Emilie Davis MD Primary Care Provider +- [phone] Morales Echavarria PLUMBING WAREHOUSE HELPER Unavailable Unavailable August Unavailable Fred Castanon Unavailable Reason for Visit * Reason Comments Med Refill Encounter Details Date Type Department Care Team (Late st Contact Info) Description 06/27/2022 Refill [facility] MEDICINE [address] [place] [address] Emilie Davis MD [address] [place] [address] [phone] Social History Tobacco Use Types Packs/Day Years [...] Description 09/22/2024 9:00 AM EDT Clinical Support [facility] MEDICINE [address] [place] [address] Medina Lewis, RONALD [address] [place] [address] documented as of this encounter Visit Diagnoses Not on filedocumented in this encounter Care Teams Prevention Coordinator Relationship Specialty Start Date End Date Emilie Davis MD 230 [place] [address] PCP - General Family Medicine 05/13/18 Morales Echavarria FNP [address] [place] [address] Nurse Practitioner Family Medicine 04/16/23 Aida Orozco [address] [place] [address] Gastroenterology 05/26/24 Fred Castanon [address] [place] [address] 07/21/24 documented as of this encounter
--- OUTSIDE RECORDS SUMMARY | 2024-07-24 15:12 | XMS_ITS | Encounter Summary ---
Author Organization [facility] Address 75 [facility] 7t [place] [address] Care Team Providers Care Hair Assistant Name Role Phone Emilie Davis MD Primary Care Provider +1- [phone] Morales Echavarria BASIC SCIENCES PROFESSOR Unavailable Unavailable August Unavailable Fred Castanon Unavailable Reason for Visit * Reason Onset Date Comments Med Refill 04/22/2024 Encounter Details Date Type Department Care Team (Late st Contact Info) Description 04/22/2024 Telephone [facility] MEDICINE 230 [place] [address] Emilie Davis MD 230 [place], [place] [phone] Med Refill Social History Tobacco Use Types [...] 200 MG/5ML suspension To be sent to: [facility] - [place], [place] - [address] [facility] documented in this encounter Plan of Treatment Upcoming Encounters Date Type Department Care Team ([facility] st Contact Info) Description 09/22/2024 9:00 AM EDT Clinical Support [facility] MEDICINE 230 [place] [address] Medina Lewis, RONALD 230 [place] [address] documented as of this encounter Visit Diagnoses Not on filedocumented in this encounter Additional Health Concerns Assessment Noted Time PHQ-9 Depression Total Score: 3 04/30/20 23 9:17 AM EST documented as of this encounter Care Teams Hair Assistant Relationship Specialty Start Date End Date Emilie Davis MD [address] [place] [address] PCP - General Family Medicine 05/13/18 Morales Echavarria FNP [address] [place] [address] Nurse Practitioner Family Medicine 04/16/23 Pam Aida [address] [address] Gastroenterology 05/26/24 Fred Castanon [address] [address] 07/21/24 documented as of this encounter
--- OUTSIDE RECORDS SUMMARY | 2024-07-24 15:12 | XMS_ITS | Encounter Summary ---
Author Organization [employer] Address 75 [facility] 7t [place] [address] Care Team Providers Care Pickle Cutter Name Role Phone [place], Emilie MARISCAL Primary Care Provider +1- [phone] Morales Echavarria Unavailable Unavailable August Unavailable Fred Castanon Unavailable Encounter Details Date Type Department Care Team (Latest Contact Info) Description 07/24/2024 1:00 PM EDT Clinical Support [facility] MEDICINE 230 [place] [address] Medina Lewis, RONALD [address] [place] [address] On pre-exposure prophylaxis for HIV (Primary Dx) Social History Tobacco Use Types [...] 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 Reports had R gluteal pain for abouta week after the first injection but wishes to continue. Reviewed and confirmed: Negative 4th generation HIV-1 test within last 7 days. HIV-1 RNA assay test (HIV VL) negative or pending at time of visit. No previous hypersensitivity reaction to cabotegravir. Reviewed medication list; pt is not taking carbamazepine, oxcarbazepine, phenobarbital, phenytoin, rifampin, or rifapentine. Pt weighs over 77 lbs. Pt does not have gluteal implants. Pt is not (or has consulted with a provider). Pt does not have any symptoms of acute HIV (fever, fatigue, myalgia, sore throat, rash). LFTs done within last 6 months, or included in initial labs today. Last LFTs: 03/18/24 Hep B status (if stopping Descovy or Truvada): immune test [if applicable]: N/A pt does not have ovaries or uterus Patient questions answered. Reviewed importance of attending lab and injection appointments. Reviewed that medication is an IM injection in gluteal muscle and cannot be taken out once it is given. 600 mg cabotegravir injected IM into R gluteal muscle. Pt has L hip pain so only wants injections on R side. Pt advised to not rub the injection sites. Pt tolerated well, advised to remain 20 mins after injection, no adverse reaction noted. Pt given phone number for RN and PrEP navigator if they have any questions. Teaching points reviewed: Stop Descovy or Truvada if taking. Importance of adherence to injection and lab monitoring schedule: once monthly for 2 mos, then every 2 mos afterward. Importance of contacting provider/RN for sooner HIV testing: When recent exposures to HIV-1 are suspected or clinical symptoms consistent with acute HIV-1 (eg, fever, fatigue, myalgia, sore throat, rash) are present Upon diagnosis of any other STI Reviewed long ???tail?? effect of medication. Apretude (IM cabotegravir) can be present in the body for up to 12 months after an injection, though not at a level to protect from HIV acquisition. There is a risk that if someone did acquire HIV-1 before, during, or within 12 mos of discontinuation of Apretude, that strain of HIV-1 could be resistant if they are not current on dosing or are not on a different form of PrEP, such as Truvada or Descovy. Counseled on site reaction and side effects (abdominal pain, jaundice, rash, depression etc.) that should be brought to provider attention. PrEP does not protect against STIs other than HIV, or other blood-borne pathogens. If you plan to miss a dose by more than 7 days, let us know as soon as possible so we can plan for this. You can take oral cabotegravir for up to 2 months to cover for 1 missed injection. If you tamela dose by accident, contact us as soon as you can so we can make a plan to re-start PrEP - if desired and appropriate. Plan: PrEP Navigator check - in 1 week Return for HIV, [if applicable] testing in 1 month or 2 months. Ideally this would be less than 7 days from your next injection appointment. It can be done the same day as injection provided 4th gen rapid HIV-1 test is non- reactive before injection and HIV-1 RNA assay has been drawn at lab. Thorough STI testing every other visit (every 4 mos) or sooner if needed in addition to HIV testing. Syphilis done today 07/24/24, swabs 04/20/24. Next due 11/23/24 LFTs 6 months after first injection, then annually: next due 10/16/24 Appointment for 2nd month of injections (1 month and then every 2 mos thereafter w/ 7d russell period): 09/22/24 at 9am documented in this encounter Plan of Treatment Upcoming Encounters Date Type Department Care Team (Late st Contact Info) Description 09/22/2024 9:00 AM EDT Clinical Support [facility] MEDICINE [address] [place] [address] Medina Lewis RN [address] [place] [address] Scheduled Orders Name Type Priority Associated Diagnoses Orde r Schedule HIV-1 RNA, Quantitative, Real-Time PCR Lab Routine On pre-exposure prophylaxis for HIV Expected: 07/24/2024 (Approximate), Expires: 07/24/2025 Syphilis Screen Lab Routine On pre-exposure prophylaxis for HIV Expected: 07/24/2024 (Approximate), Expires: 07/24/2025 documented as of this encounter Procedures Procedure Name Priority Date/Time Associated Diagnosis Comments POCT RAPID HIV SCREENING Routine 07/24/2024 2:17 PM EDT On pre-exposure prophylaxis for HIV documented in this encounter Results * POCT RAPID HIV SCREENING (07/24/2024 2:17 PM EDT) Blood 07/24/2024 2:17 PM EDT Narrative Medina Lewis RN - 07/24/2024 2:17 PM EDT negative Nahun Dyer MD POINT OF CARE TEST ENTER/EDIT ORDERABLES Final Result documented in this encounter Visit Diagnoses Diagnosis On pre-exposure prophylaxis for HIV- Primary documented in this encounter Administered Medications Inactive Administered Medications - up to 3 most recent administrations Medication Order MAR Action Action Date Dose Rate Site Cabotegravir ER Suspension Extended Release 600 mg 600 mg, Intramuscular, Once, On Sat07/24/24 at 1430, For 1 dose, Ventrogluteal.Indication s:On pre-exposure prophylaxis for HIV Given 07/24/2024 2:30 PM EDT 600 mg Left Upper Buttock documented in this encounter Additional Health Concerns Assessment Noted Time PHQ-9 Depression Total Score: 3 04/30/20 23 9:17 AM EST documented as of this encounter Care Teams Pickle Cutter Relationship Specialty Start Date End Date Emilie Davis MD 230 [place] [address] PCP - General Family Medicine 05/13/18 Morales Echavarria FNP [address] [place] [address] Nurse Practitioner Family Medicine 04/16/23August [address] [place] [address] Gastroenterology 05/26/24 Fred Castanon [address] [place] [address] 07/21/24 documented as of this encounter
--- OUTSIDE RECORDS SUMMARY | 2024-07-24 15:12 | XMS_ITS | Encounter Summary ---
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 on file Not on file documented as of this encounter Plan of Treatment Upcoming Encounters Date Type Department Care Team (Late st Contact Info) Description 09/22/2024 9:00 AM EDT Clinical Support [facility] MEDICINE 230 [place] [address] Medina Lewis RN 230 [place] [address] documented as of this encounter Visit Diagnoses Not on filedocumented in this encounter Additional Health Concerns Assessment Noted Time PHQ-9 Depression Total Score: 3 04/30/20 23 9:17 AM EST documented as of this encounter Care Teams Emt/Dispatcher Relationship Specialty Start Date End Date Emilie Davis MD [address] [place] [address] PCP - General Family Medicine 05/13/18 Morales Echavarria FNP [address] [place] [address] Nurse Practitioner Family Medicine 04/16/23 Pam Aida [address] [place] [address] Drive 3rd [place] [address] Gastroenterology 05/26/24 Fred Castanon [address] [place] [address] 07/21/24 documented as of this encounter
--- OUTSIDE RECORDS SUMMARY | 2024-07-24 15:12 | XMS_ITS | Encounter Summary ---
Author Organization [facility] Address [address] [place] [address] 7 [place] [address] Care Team Providers Care Area Safety Manager Name Role Phone Emilie Davis MD Primary Care Provider +- [phone] Morales Echavarria SLAT BASKET MAKER Unavailable Unavailable August Unavailable Fred Castanon Unavailable Encounter Details Date Type Department Care Team (Late st Contact Info) Description 04/22/2022 Orders Only [facility] [address] [place], [place] [phone] Emilie Davis MD [address] [place], [place] [phone] HSV (herpes simplex virus) anogenital infection (Primary [...] Description 09/22/2024 9:00 AM EDT Clinical Support [facility] MEDICINE 230 [place], [place] [phone] Medina Lewis, RONALD [address] [place] [address] documented as of this encounter Visit Diagnoses Diagnosis HSV (herpes simplex virus) anogenital infection- Primary Herpes simplex without mention of complication documented in this encounter Care Teams Area Safety Manager Relationship Specialty Start Date End Date Emilie Davis MD [address] [place] [address] PCP - General Family Medicine 05/13/18 Morales Echavarria FNP [address] [place] [address] Nurse Practitioner Family Medicine 04/16/23 Aida Orozco [address] [place] [address] Gastroenterology 05/26/24 Ferd Castanon [address] [place] [address] 07/21/24 documented as of this encounter
--- OUTSIDE RECORDS SUMMARY | 2024-07-24 15:12 | XMS_ITS | Encounter Summary ---
Author Organization [employer] Address [address] [facility] [address] 7t [place] [address] Care Team Providers Care Manager Community Development Name Role Phone [place], Emilie MARISCAL Primary Care Provider +1- [phone] Morales Echavarria Unavailable Unavailable August Unavailable Encounter Details Date Type Department Care Team (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 file [...] Description 09/22/2024 9:00 AM EDT Clinical Support [facility] MEDICINE [address] [place] [address] Medina Lewis, RONALD [address] [place] [address] documented as of this encounter Visit Diagnoses Not on filedocumented in this encounter Additional Health Concerns Assessment Noted Time PHQ-9 Depression Total Score: 3 04/30/20 23 9:17 AM EST documented as of this encounter Care Teams Manager Community Development Relationship Specialty Start Date End Date Emilie Davis MD [address] [place] [address] PCP - General Family Medicine 05/13/18 Morales Echavarria FNP [address] [place] [address] Nurse Practitioner Family Medicine 04/16/23 Aida Orozco [address] [place] [address] 3rd [place] [address] Gastroenterology 05/26/24 documented as of this encounter
--- OUTSIDE RECORDS SUMMARY | 2024-07-24 15:12 | XMS_ITS | Encounter Summary ---
Author Organization [employer] Address [address] [facility] [address] 7t [place] [address] Care Team Providers Care Php Magento Developer Name Role Phone [place], Emilie MARISCAL Primary Care Provider +1- [phone] Morales EchavarriaP Unavailable Unavailable August Unavailable Encounter Details Date Type Department Care Team ([facility] st Contact Info) Description 07/16/2024 Telephone [facility] MEDICINE 230 [place] [address] Medina Lewis RN 230 [place] [address] Social History Tobacco Use Types Packs/Day Years [...] 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 on file Not on file documented as of this encounter Plan of Treatment Upcoming Encounters Date Type Department Care Team (Late st Contact Info) Description 09/22/2024 9:00 AM EDT Clinical Support [facility] MEDICINE [address] [place] [address] Medina Lewis, RONALD [address] [place] [address] documented as of this encounter Visit Diagnoses Not on filedocumented in this encounter Additional Health Concerns Assessment Noted Time PHQ-9 Depression Total Score: 3 04/30/20 23 9:17 AM EST documented as of this encounter Care Teams Php Magento Developer Relationship Specialty Start Date End Date Emilie Davis MD [address] [place] [address] PCP - General Family Medicine 05/13/18 Morales Echavarria FNP [address] [place] [address] Nurse Practitioner Family Medicine 04/16/23OrozcoAugust [address] [place] [address] Drive 3rd [place] [address] Gastroenterology 05/26/24 documented as of this encounter
--- OUTSIDE RECORDS SUMMARY | 2024-07-24 15:12 | XMS_ITS | Encounter Summary ---
Author Organization [employer] Address 75 [facility] 7t [place] [address] Care Team Providers Care Heel Dipper Name Role Phone Emilie Davis MD Primary Care Provider +1- [phone] Morales Echavarria COUNTERINTELLIGENCE ANALYST Unavailable Unavailable August Unavailable Reason for Visit * Reason Onset Date Comments May recalls 06/30/2024 Encounter Details Date Type Department Care Team (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 file [...] 9:00 AM EDT Clinical Support [facility] MEDICINE 230 [place] [address] Medina Lewis, RONALD [address] [place] [address] documented as of this encounter Visit Diagnoses Not on filedocumented in this encounter Additional Health Concerns Assessment Noted Time PHQ-9 Depression Total Score: 3 04/30/20 23 9:17 AM EST documented as of this encounter Care Teams Heel Dipper Relationship Specialty Start Date End Date Emilie Davis MD [address] [place] [address] PCP - General Family Medicine 05/13/18 Morales Echavarria FNP [address] [place] [address] Nurse Practitioner Family Medicine 04/16/23 Aida Orozco [address] [place] [address] 3rd [place] [address] Gastroenterology 05/26/24 documented as of this encounter
--- OUTSIDE RECORDS SUMMARY | 2024-07-24 15:12 | XMS_ITS | Encounter Summary ---
Author Organization [facility] Address 75 [facility] 7t [place] [address] Care Team Providers Care Manufacturing Millwright Name Role Phone Emilie Davis MD Primary Care Provider +1- [phone] Morales Echavarria Unavailable Unavailable August Unavailable Reason for Visit * Reason Comments Med Change Request Encounter Details Date Type Department Care Team ([facility] Contact Info) Description 07/08/2024 Refill [facility] MEDICINE 230 [place], [place] [phone] Emilie Davis MD 230 [place], [place] [phone] Social History Tobacco Use Types Packs/Day Years [...] 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 Not on file documented as of this encounter Plan of Treatment Upcoming Encounters Date Type Department Care Team (Late st Contact Info) Description 09/22/2024 9:00 AM EDT Clinical Support [facility] MEDICINE [address] [place] [address] Medina Lewis RN [address] [place] [address] documented as of this encounter Visit Diagnoses Not on filedocumented in this encounter Additional Health Concerns Assessment Noted Time PHQ-9 Depression Total Score: 3 04/30/20 23 9:17 AM EST documented as of this encounter Care Teams Manufacturing Millwright Relationship Specialty Start Date End Date Emilie Davis MD [address] [place] [address] PCP - General Family Medicine 05/13/18 Morales Echavarria FNP [address] [place] [address] Nurse Practitioner Family Medicine 04/16/23 Pam Aida [address] [place] [address] Drive 3rd [place] [address] Gastroenterology 05/26/24 documented as of this encounter
--- OUTSIDE RECORDS SUMMARY | 2024-07-24 15:12 | XMS_ITS | Clinical Summary ---
Author Organization [employer] Address [address] [facility] [facility] [address] [place] [address] Care Team Providers Care Field Crop Farming Supervisor Name Role Phone [place]ie moreira MD Primary Care Provider [phone] Morales Echavarria Unavailable Unavailable August Unavailable Fred Castanon Unavailable Allergies Active Allergy Reactions Criticality Noted Date Comments Penicillins Anaphylaxis,Rash High 05/16/2017 Sumatriptan 10/28/2018 Medications * This document contains information received from the source organization and may not represent a complete record from that organization. Needle, Disp, (BD Disp Clear) 25G X 5/8 miscIndication s:Gender 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 USE TO INJECT Testosterone INTRAMUSCULARLY EVERY 2 WEEKS DIRECTED 25 each 3 024 Active Needle, Disp, (BD Hypodermic Needle) 16G [...] adult USE FOR TESTOSTERONE 12 each 3 024 Active omeprazole OTC (PriLOSEC OTC) 20 [...] minutes after 30 capsule 025 2024 Discontinued Hospital, Clinic, or Other Facility Administered Medication Ordered Dose Route Frequency Start Date End Date Status Cabotegravir ER Suspension Extended Release 600 mgIndications:On pre-exposure prophylaxis for HIV 600 mg IM Once 07/24/2024 07/24/2024 Ended Active Problems Problem Noted Date Diagnosed Date [...] XR 05/20/24 Coronary artery disease invo lving [place] heart without angina pectoris 05/20/2024 Acquired syphilis 03/23/2024 Overview (03/23/2024): Lab Results Component Value Date SYPHILISSCRE Reactive (A) 03/18/2024 TREPPALAB Reactive (A) 03/18/2024 RPRQUANT Non-Reactive 03/18/2024 -will call [facility] regarding need for testing 03/23/24 -pt allergic [...] care facilitated by Alessio. -dental home is [facility] -health care proxy filed 03/16/24 Assessment & Plan (03/17/2024 6:12 AM EST): -next physical exam due after 03/16/2025 -eye care facilitated by Alessio. -dental home is [facility] -health care proxy filed 03/16/24 Assessment & Plan (03/22/2023 9:17 AM EST): -next physical exam due after 12/07/2023. -eye care facilitated by Alessio. -dental home is outside of [facility] Assessment & Plan (12/06/2022 10:19 AM EDT): -next physical exam dueafter 12/07/2023. -eye care facilitated by [facility]. -dental home is outside of [facility] Hx of hepatitis C 11/26/2022 Overview (11/26/2022): [...] rays suggests osteoarthritis. Seen by rheumatology in [place]. Ibuprofen and NSAIDs cause gastritis. Minimal relief with acetaminophen. He was referred back to rheumatology in [place] 08/23/2020 but provider left the area. started on Tramadol. Take 3 times per week. He is not taking at this time. Assessment & Plan (03/17/2024 6:08 AM EST): X rays suggests osteoarthritis. Seen by rheumatology in [place]. Ibuprofen and NSAIDs cause gastritis. Minimal relief with acetaminophen. He was referred back to rheumatology in [place] 08/23/2020 but provider left the area. started on Tramadol. Take 3 times per week. He is not taking at this time. Assessment & Plan (03/22/2023 9:15 AM EST): X rays suggests osteoarthritis. Seen by rheumatology in [place]. Ibuprofen and NSAIDs cause gastritis. Minimal relief with acetaminophen. He was referred back to rheumatology in [place] 08/23/2020 but provider left the area. started on Tramadol. Take 3 times per week. Will need COT in the future. Assessment & Plan (12/06/2022 8:54 AM EDT): X rays suggests osteoarthritis. Seen by rheumatology in [place]. Ibuprofen and NSAIDs cause gastritis. Minimal relief with acetaminophen. He was referred back to rheumatology in [place] 08/23/2020 but provider left the area. started on Tramadol. Take 3 times per week. Will need COT in the future. Assessment & Plan (10/11/2022 9:58 AM EDT): X rays suggests osteoarthritis. Seen by rheumatology in [place]. Ibuprofen and NSAIDs cause gastritis. Minimal relief with acetaminophen. He was referred back to rheumatology in [place] 08/23/2020 but provider left the area. started [...] Now with palpitations. 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 Assessment & Plan (03/22/2023 9:16 AM EST): Sinus bradycardia and asymptomatic. Pt states he always has slow heart rate Pt repots heart rate in 40s recorded with home BP monitor with symptoms of dizziness recorded at home. Now with palpitations. 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 Assessment & Plan (12/06/2022 8:54 AM EDT): Sinus bradycardia and asymptomatic. Pt states he always has slow heart rate Pt repots heart rate in 40s recorded with home BP monitor with symptoms of dizziness recorded at home. Now with palpitations. 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 Assessment & Plan (10/11/2022 9:58 AM EDT): Sinus bradycardia and asymptomatic. Pt states he always has slow heart rate Pt repots heart rate in 40s recorded with home BP monitor with symptoms of dizziness recorded at home. Now with palpitations. 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 Generalized abdominal pain 06/25/2021 Overview [...] for GI. Insurance no longer accepted at [facility]. -EGD scheduled for December 2021. Assessment [...] for GI. Insurance no longer accepted at [facility]. -EGD scheduled for December 2021. Assessment [...] for GI. Insurance no longer accepted at [facility]. -EGD scheduled for December 2021. Assessment [...] for GI. Insurance no longer accepted at [facility]. -EGD scheduled for December 2021. Assessment [...] for GI. Insurance no longer accepted at [facility]. -EGD scheduled for December 2021. History of non-ST elevation myocardial infarctio n (NSTEMI) 06/25/2021 Overview (07/21/2024): [place]x NSTE [place] 09/2017 -continue oscar -Stress test without evidence of ischemia 04/08/18 -he held statin and ASA due to GI upset -trial of restarting statin 01/2019 -Recent lung CT on 05/08/24 showed Coronary artery atherosclerosis. Pt wants to get reestablished with cardiology. -seen by William Castanon 07/20/24 a stress Mibi (baseline ECG is abnormal with nonspecific T-wave changes) and echocardiogram ordered, follow up with cardiology 4 months Assessment & Plan (05/20/2024 4:29 PM EST): Hx NSTE [place] 09/2017 -continue oscar -Stress test without evidence of ischemia 04/08/18 -he held statin and ASA due to GI upset -trial of restarting statin 01/[address] on 05/08/24 showed Coronary artery atherosclerosis. Pt wants to get reestablished with cardiology. -referral sent 05/20/24 Assessment & Plan (03/22/2023 9:17 AM EST): Hx NSTE [place] 09/2017 -continue oscar -Stress test without evidence of ischemia 04/08/18 -he held statin and ASA due to GI upset -trial of restarting statin 01/2019 Assessment & Plan (12/06/2022 8:55 AM EDT): Hx NSTE [place] 09/2017 -continue oscar -Stress test without evidence of ischemia 04/08/18 -he held statin and ASA due to GI upset -trial of restarting statin 01/2019 Assessment & Plan (10/11/2022 9:57 AM EDT): Hx NSTE [place] 09/2017 -continue oscar -Stress test without evidence of ischemia 04/08/18 -he held statin and ASA due to GI upset -trial of restarting statin 01/2019 Seasonal allergies 06/25/2021 Gender 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 10/03/2018 Overview (03/26/2024): Pt identifies as male and is changed his name in [place] October 2020. -He restarted testosterone 08/2020 -S/p chest reconstruction 10/2018 -Testosterone was 654 on 10/2022 Lab Results Component Value Date TESTTOTAL 1641 (A) 03/18/2024 HGB 16.2 (H) 03/18/2024 HGB 15.8 10/18/2022 HCT 47.3 (H) 03/18/2024 Goal testosterone levels 350-700ng/dl. Assessment & Plan (03/17/2024 6:12 AM EST): Pt identifies as male and is changing his name in [place] October 2020. He restarted testosterone 08/2020 S/p chest reconstruction 10/2018 Pt would like to switch small needle to subcutaneous instead. 25 gague needles sent 12/06/2022 Testosterone was 654 on 10/2022. Assessment & Plan (03/22/2023 9:16 AM EST): Pt identifies as male and is changing his name in [place] October 2020. He restarted testosterone 08/2020 S/p chest reconstruction 10/2018 Pt would like to switch small needle to subcutaneous instead. 25 gague needles sent 12/06/2022 Testosterone was 654 on 10/2022. Assessment & Plan (12/06/2022 11:18 AM EDT): Pt identifies as male and is changing his name in [place] October 2020. He restarted testosterone 08/2020 S/p chest reconstruction 10/2018 Pt would like to switch small needle to subcutaneous instead. 25 gague needles sent 12/06/2022 Testosterone was 654 on 10/2022. Assessment & Plan (10/11/2022 9:59 AM EDT): Pt identifies as male and is changing his name in [place] October 2020. He restarted testosterone 08/2020 S/p chest reconstruction 10/[address] scan, lung 10/04/2017 Overview (05/20/2024): -Ct scan [facility] on 12/25/2017 showed multiple indeterminate nodules, [...] 11/15/23 and NO SHOW. Pt can call [phone] to schedule mariely. number given to call 03/16/24 -CT 05/08/24 No acute intrathoracic findings. Calcified granulomas present bilaterally. No suspicious pulmonary nodule identified. Air-fluid level present within the midthoracic esophagus can be associated with gastroesophageal reflux disease and esophageal dysmotility. Coronary artery atherosclerosis. Assessment & Plan (05/20/2024 4:05 PM EST): -Ct scan in [place] ER on 12/25/2017 showed multiple indeterminate nodules, [...] 11/15/23 and NO SHOW. Pt can call [phone] to schedule mariely. number given to call 03/16/24 -CT 05/08/24 No acute intrathoracic findings. Calcified granulomas present bilaterally. No suspicious pulmonary nodule identified. Air-fluid level present within the midthoracic esophagus can be associated with gastroesophageal reflux disease and esophageal dysmotility. Coronary artery atherosclerosis. Assessment & Plan (03/17/2024 6:13 AM EST): -Ct scan in [place] ER on 12/25/2017 showed multiple indeterminate nodules, [...] 11/15/23 and NO SHOW. Pt can call [phone] to schedule mariely. number given to call 03/16/24 Assessment & Plan (03/22/2023 9:16 AM EST): -Ct scan in [place] ER on 12/25/2017 showed multiple indeterminate nodules, largest was solid and measured 2mm. -Given that the Pt has a tobacco Hx and quit in 2018 we referrred to pulmonology that was likely distrupted by the pandemic. -Will ordered repeat CT of chest to follow the nodles. Assessment & Plan (12/06/2022 10:18 AM EDT): -Ct scan in [place] ER on 12/25/2017 showed multiple indeterminate nodules, [...] referred for OP services and referral to [facility] Psychopharmacology clinic. Provided Crisis contact number in [...] treatment engagement. PLAN: 1. Follow up with [facility]: Not recommended for follow-up 2. Patient goal is to learn coping mechanisms to manage sxs. 3. Behavioral Recommendations a. Ind. Therapy and Medication Management b. Continue using coping skills c. [facility] support as needed. Mild major depression 06/25/20212023 Encounters Date Type Department Care Team Description 07/24/2024 1:00 PM EDT Clinical Support [address] [address] Medina Lewis, RN On pre-exposure prophylaxis for HIV (Primary Dx) 07/24/2024 Travel 07/20/2024 Orders Only [facility] MEDICINE [address] [place] [phone] Emilie Davis MD Left hip pain (Primary Dx) 07/20/[address] [address] Emilie Davis MD Referral 07/16/2024 Telephone [facility] MEDICINE [address] [place] [phone] Medina Lewis, RONALD 07/13/[address] [address] Medina Lewis, RN 07/10/[address] [address] Bijal Irene, RN Gender dysphoria 07/08/[address] [address] Emilie Davis MD 07/08/2024 Orders Only [facility] [place] [address] Emilie Davis MD 07/02/2024 Telephone [facility] [place] [address] Medina Lewis RN 06/30/2024 Telephone [address] [place] [address] Emilie Davis MD May recalls 06/08/2024 Telephone [facility] [place] [address] Emilie Davis MD 05/21/2024 1:30 PM EST Clinical Support [facility] [place] [address] Sahil Puente, RN On pre-exposure prophylaxis for HIV (Primary Dx) 05/21/2024 Orders Only [facility] [place] [place] [address] Emilie Davis MD 05/21/2024 Refill [facility] [place] [address] Sahil Puente, RONALD Encounter for HIV pre-exposure prophylaxis 05/21/2024 Travel 05/21/2024 Telephone [facility] [place] [address] Emilie Davis MD 05/20/2024 4:00 PM EST Office Visit [facility] [place] [address] Emilie Davis MD Anxiety (Primary Dx); Gender 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; Abnormal CT scan, lung; Family history of breast cancer; Colon cancer screening; History of non-ST elevation myocardial infarction (NSTEMI); Cardiac risk counseling; Coronary artery disease involving [place] heart without angina pectoris, unspecified vessel or lesion type; Chronic left hip pain; Spasm of left trapezius muscle 05/20/2024 Travel 05/04/2024 Telephone [facility] [place] [address] Sahil Puente, RN PrEP communication 04/30/[address] [place] [address] Sahil Puente, RONALD from Last 3 Months Immunizations Name Administration [...] 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 Not on file [...] 9:00 AM EDT Clinical Support [facility] MEDICINE [address] [place] [address] Medina Lewis, RN [address] [place] [address] Health Maintenance Due Date Last Done Comments [...] 05/20/2025 05/20/2024 Depression Screening 05/20/2025 05/20/2024, 04/30/20 Tobacco Screening 05/20/2025 05/20/2024 HPV/Cotest 03/22/2028 03/22/2023, 11/11, 12/06/2017 Pap Smear 03/22/2028 03/22/2023, 12/06/2017 Lipid Panel 03/18/2029 03/18/2024, 06/0 12/2022, 05/22/2021 DTaP/Tdap/Td Vaccines (2 - Td or Tdap) 06/18/2029 06/18/2019 RSV Patients and Patients Aged 60 years or older (1 - 1-dose 75+ series) 02/12/2044 Hepatitis A Vaccines Completed 03/16/2024, 12/08/19 Hepatitis B Vaccines Completed 03/16/2024, 01/07/2023, 12/07/2022 HIV Screening Completed 05/21/2024, 12/0 01/2024, 03/18/2024, Additional history exists HIB Vaccines [...] PM EDT On pre-exposure prophylaxis for HIV XR HIP 2 OR 3 VIEWS LEFT [...] Recently Relevant to Health Maintenance Results * POCT RAPID HIV SCREENING (07/24/2024 2:17 PM EDT) Only the most recent of2 resultswithin the time period is included. Blood 07/24/2024 2:17 PM EDT Narrative Medina Lewis, RONALD - 07/24/2024 2:17 PM EDT negative us Nahun Dyer MD POINT OF CARE TEST ENTER/EDIT ORDERABLES Final Result * XR Hip 2 or 3 Views Left (06/04/2024 12:17 PM EST) Anatomical Region Laterality Modality Lower Extremities, Hip Left Radiograp hic Imaging 06/04/2024 12:1 7 PM EST Narrative 06/04/2024 1:06 PM EST ?[place] [facility] ?[address] ?[place] [address] ?XRay Report ? Signed ? Patient: Trace Roberson,Harriet ?MR#: [id number] ?? [id number] ? : 1970 ?Acct:[id number] ? Age/Sex: 54 / F ?ADM Date: 06/04/24 ? Loc: HO.HHCX ? Attending Dr: Emilie Davis MD ? Ordering Physician: Emilie Davis MD ?? Date of Service: 06/04/24 ?? Procedure(s): XR hip LT min 2V ?? Accession Number(s): [id number] ? cc: Emilie Davis MD ? EXAMINATION: [...] DD/ 1217 ? TD/TT: 06/04/24 1230 ? Operating Theatre Technician: MSM ? Procedure Note Donjose ramon, Image - 06/04/[address] [address] XRay Report Signed Patient: Harriet ValdezMR#: [id number] : 1970Acct:[id number] Age/Sex: 54 / FADM Date: 06/04/24 Loc: HO.HHCX Attending Dr: Emilie Davis MD Ordering Physician: Emilie Davis MD Date of Service: 06/04/24 Procedure(s): XR hip LT min 2V Accession Number(s): [id number] cc: Emilie Davis MD EXAMINATION: XR HIP, LEFT CLINICAL INFORMATION: chronic left hip pain COMPARISON: None available. TECHNIQUE: Two views of the left hip. FINDINGS: No fracture. Alignment is anatomic. Hip joint space is maintained. Soft tissues are unremarkable. XR/XR hip LT min 2V IMPRESSION: Unremarkable left hip exam Electronically signed by: Jimmy Pedroza MD 06/04/2024 01:04 PM EST RP Dictated By: Jimmy Pedroza MD Signed By: <Electronically signed by Jimmy Pedroza MD in OV> 06/04/24 1304 DD/ 1217 TD/TT: 06/04/24 1230 Operating Theatre Technician: [facility] Emilie Davis MD IMG XR PROCEDURES Final Re sult * HIV-1 RNA, Quantitative, Real-Time PCR (05/21/2024 3:24 PM EST) HIV RNA PCR Qn Copies NOT DETECTED NOT DETECTED copies/mL [facility] HIV RNA PCR Qn Log Copies NOT DETECTED NOT DETECTED [facility] Comment:Result Units: Log co pies/mLThis test was performed using Real-Time Polymerase ChainReaction.Reportable Range: 20 copies/mL to 10,000,000 copies/mL(1.30 log copies/mL to 7.00 log copies/mL).THIS TEST WAS PERFORMED AT:[facility] [place] [id number] MALDONADO MD 05/21/2024 3:24 PM EST 05/21/2024 4:15 PM EST Emilie Davis MD LAB BLOOD ORDERABLES Final Result [facility] [address] [place] [phone] * CT Chest w/o Contrast (05/11/2024 4:47 PM EST) Anatomical Region Laterality Modality Body, Chest Computed Tomogra phy 05/11/2024 4:47 PM EST Narrative 05/11/2024 4:48 PM EST ? [facility] ?[address] ?[place] [address] ? CT Scan Report ? Signed ? Patient: Trace Roberson,Harriet ?MR#: [id number] ?? [id number] ? : 1970 ?Acct:[id number] ? Age/Sex: 54 / F ?ADM Date: 05/08/24 ? Loc: HO.CT ? Attending Dr: Emilie Davis MD ? Ordering Physician: Emilie Davis MD ?? Date of Service: 05/08/24 ?? Procedure(s): CT chest wo IV con ?? Accession Number(s): [id number] ? cc: Emilie Davis MD ? Report Number: ?? [id number]: Total DLP = ?? 80.00 mGy-cm ? CLINICAL HISTORY: Previous CT performed at [facility] ER showed multiple interdeterminate [...] signed by Juan Álvarez MD in OV> ?05/11/ 1648 ? DD/DT: 05/11/ 1647 ? TD/TT: 05/11/ 1647 ? Operating Theatre Technician: ? Procedure Note Helen Image - 05/11/[address] [address] [address] Scan Report Signed Patient: Harriet ValdezMR#: [id number] : 1970Acct:[id number] Age/Sex: 54 / FADM Date: 05/08/24 Loc: HO.CT Attending Dr: Emilie Davis MD Ordering Physician: Emilie Davis MD Date of Service: 05/08/24 Procedure(s): CT chest wo IV con Accession Number(s): [id number] cc: Emilie Davis MD Report Number: [id number]: Total DLP = 80.00 mGy-cm CLINICAL HISTORY: Previous CT performed at [facility] ER showed multipleinterdeterminate nodules [...] signed by Juan Álvarez MD in OV> 05/11/241647 DD/ 46 TD/TT: 05/11/241646 Operating Theatre Technician: Emilie Davis MD IMG CT PROCEDURES Final Re sult * (ABNORMAL) Lipid Panel, Standard (03/18/2024 8:01 AM EST) Triglycerides 61 <150 mg/dL [facility] Comment:Desirable Triglyceri de: less than 150 mg/dLBorderline High Triglyceride 150-199 mg/dLHigh Triglyceride: 200-499 mg/dLVery High Triglyceride: greater than or equal to 5OO mg/dL Cholesterol 169 <200 mg/dL [facility] Comment:Desirable Cholestero l: less than 200 mg/dLBorderline High Cholesterol: 200-239 mg/dLHigh Cholesterol: greater than 239 mg/dL LDL Cholesterol Calculated 101(H) <100 mg/dL [facility] Comment:Desirable LDL: less than 100 mg/dLNear Optimal/Above Optimal LDL: 110- 129 mg/dLBorderline High LDL: 130-159 mg/dLHigh LDL: 160-189 mg/dLVery High LDL: greater than or equal to 190 mg/dL HDL Cholesterol 56 >40 mg/dL [facility] Comment:Desirable HDL: great er than 40 mg/dL Note: This HDL assay may give artificially low results in patients with liver disease. Blood Venous blood specimen / Unknown 03/18/2024 8:01 AM EST 03/18/2024 8:04 AM EST Emilie Davis MD LAB BLOOD ORDERABLES Final Result [facility] [address] [place] [phone] * HPV mRNA E6/E7 w/Reflex to HPV Genotypes 16, 18/45 (03/22/2023 11:30 AM EST) HPV nRNA E6/E7 Not Detected Not Detected [facility] Comment:Methodology: Transcr iption-Mediated AmplificationThis assay detects E6/E7 viral messenger RNA (mRNA) from 14high-risk HPV types (16,18,31,33,35,39,45,51,52,56,58,59,66,68).Cervical sources are required for HPV testing.If a vaginal source from a patient who has had atotal hysterectomy with removal of cervix wassubmitted, please contact the testing laboratoryfor alternative testing options.For additional information, please refer tohttp://education.Diary.com/faq/[email or web address](This link if provided for information/educational purposes only.)THIS TEST WAS PERFORMED AT:[facility] [place] [phone] MALDONADO MD HPV mRNA E6/E7 TNP [facility] HPV 16 RNA TNP [facility] HPV 18/45 RNA TNP [facility] 03/22/2023 11:3 0 AM EST 03/25/2023 12:20 PM EST us Emilie Davis MD LAB CYTOLOGY ORDERABLES Fi nal Result Performing Organization Address City/State/[facility] Co de Phone Number [facility] [address] [place] [address] [phone] * Pap Smear (03/22/2023 11:30 AM EST) 03/22/2023 11:3 0 AM EST 03/25/2023 12:20 PM EST Narrative [facility] - 04/11/2023 11:26 AM EST ----- ------- Name: Harriet Valdez ?Age/Sex: 53/F ? : 1970 Unit#: [id number] ?? Attend Dr: RADHA VILLAREAL ?Re03/22/23 ?Status: DEP REF ? Location: HO.HHCLNP ? Disch: ? ----- ------- SPEC : [id number] ?RECD: 03/25/23 ? STATUS: ??SOUT ? REQ NUM: [id number] ? AMBREEN: 03/22/23 ? SUBM DR: Emilie Davis MD ? ENTERED: ??03/25/23-1250 ?SP TYPE: Pap Smr ?OTHR DR: ? ORDERED: ??Pap Smear ? Interpretation ?? Satisfactory for evaluation. ?? Negative for intraepithelial lesion or malignancy. ?HPV mRNA E6/E7: ?NOT DETECTED ? This assay detects E6/E7 viral messenger RNA (mRNA) from 14 high-risk HPV types (16, 18, ?? 31, 33, 35, 39, 45, 51, 52, 56, 58, 59, 66, 68) ?? HPV testing performed by [facility], [place], [place]. ??See reference laboratory ?? portion of the EMR for entire report. ?Clinical Information LMP: Unknown date Previous PAP test: Unknown date, WNL Other history: Pt on testosterone, surgical post menopause ? Material Received ?? ThinPrep-Cervical ----- ------- Signed (signature on file) SERENA Alejandro (ASCP) 04/11/23 1126 ? ----- ------- ? END OF REPORT ? Emilie Davis MD LAB CYTOLOGY ORDERABLES Fi nal Result [facility] [address] [place] [address] [phone] * Hm Colonoscopy (01/30/2018) Colonoscopy normal Historical Provider HEALTH MAINTENANCE Final Result from Last 3 Months or Most Recently Relevant to Health Maintenance Insurance [facility] Advance Directives Documents on File Type Date Recorded Patient Rn Staff Expl anation Advance Directives and Living Will 03/16/2024 Health Care Proxy 03/16/24 Care Teams Field Crop Farming Supervisor Relationship Specialty Start Date End Date [place], [place] Emilie [address] [place] [phone] PCP - General Family Medicine 05/13/18 Morales Echavarria FNP [address] [place] [address] Nurse Practitioner Family Medicine 04/16/23August 11 [facility] [address] [place] [address] Gastroenterology 05/26/24 Fred Castanon [address] [place] [phone] 07/21/24
--- OUTSIDE RECORDS SUMMARY | 2024-07-24 15:12 | XMS_ITS | Encounter Summary ---
Author Organization [employer] Address 75 [facility] 7t [place] [address] Care Team Providers Care Pediatric Care Coordinator Name Role Phone Ray, Emilie MARISCAL Primary Care Provider +1- [phone] Morales Echavarria Unavailable Unavailable August Unavailable Reason for Visit * Reason Onset Date Comments Medication Question 07/10/2024 Encounter Details Date Type Department Care Team ([facility] st Contact Info) Description 07/10/2024 Refill [facility] MED[facility]INE 230 [place] [address] Bijal Irene, RN [address] [place] [address] Gender dysphoria Social History Tobacco Use Types [...] 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 Contact Center Associate no longer making the multi dose vials [...] Description 09/22/2024 9:00 AM EDT Clinical Support [facility]INE [address] [place] [address] Medina Lewis, RN [address] [place] [address] documented as of this encounter Visit Diagnoses Diagnosis Gender dysphoria documented in this encounter Additional Health Concerns Assessment Noted Time PHQ-9 Depression Total Score: 3 04/30/20 23 9:17 AM EST documented as of this encounter Care Teams Pediatric Care Coordinator Relationship Specialty Start Date End Date Emilie Davis MD [address] [place] [address] PCP - General Family Medicine 05/13/18 Morales Echavarria FNP [address] [place] [address] Nurse Practitioner Family Medicine 04/16/23 Pam Aida [address] [place] [address] 3rd [place] [address] Gastroenterology 05/26/24 documented as of this encounter
--- OUTSIDE RECORDS SUMMARY | 2024-07-24 15:12 | XMS_ITS | Encounter Summary ---
Author Organization [employer] Address [address] [facility] 7t [place] [address] Care Team Providers Care Motor Vehicle Or Caravan Salesperson Name Role Phone Ransom, Emilie MARISCAL Primary Care Provider +1- [phone] Morales EchavarriaP Unavailable Unavailable August Unavailable Encounter Details Date Type Department Care Team (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 RN spoke to Trevor, delivery set up for 07/07/24. documented in this encounter Plan of Treatment Upcoming Encounters Date Type Department Care Team (Late st Contact Info) Description 09/22/2024 9:00 AM EDT Clinical Support [facility] [address] [place] [address] Medina Lewis RN [address] [place] [address] documented as of this encounter Visit Diagnoses Not on filedocumented in this encounter Additional Health Concerns Assessment Noted Time PHQ-9 Depression Total Score: 3 04/30/20 23 9:17 AM EST documented as of this encounter Care Teams Motor Vehicle Or Caravan Salesperson Relationship Specialty Start Date End Date Emilie Davis MD 230 [place] [address] PCP - General Family Medicine 05/13/18 Morales Echavarria FNP 230 [place] [address] Nurse Practitioner Family Medicine 04/16/23 Aida Orozco [address] [place] [address] 3rd [place] [address] Gastroenterology 05/26/24 documented as of this encounter
--- OUTSIDE RECORDS SUMMARY | 2024-07-24 15:12 | XMS_ITS | Encounter Summary ---
Author Organization [employer] [facility] Address [address] [place] [address] 7t [place] [address] Care Team Providers Care Supervisor Fusing Room Name Role Phone Emilie Davis MD Primary Care Provider +1- [phone] Morales Echavarria INDUSTRIAL RELATIONS ANALYST Unavailable Unavailable August Unavailable Fred aCstanon Unavailable Encounter Details Date Type Department Care Team (Late st Contact Info) Description 11/28/2022 Abstract [facility] MEDICINE [address] [place] [address] Emilie Davis MD 230 [place] [address] Social History Tobacco Use Types Packs/Day Years [...] Description 09/22/2024 9:00 AM EDT Clinical Support [facility] MEDICINE 230 [place] [address] Medina Lewis RN [address] [place] [address] documented as of this encounter Visit Diagnoses Not on filedocumented in this encounter Additional Health Concerns Assessment Noted Time PHQ-9 Depression Total Score: 19 023 9:24 AM EDT documented as of this encounter Care Teams Supervisor Fusing Room Relationship Specialty Start Date End Date Emilie Davis MD [address] [place] [address] PCP - General Family Medicine 05/13/18 Morales Echavarria FNP [address] [place] [address] Nurse Practitioner Family Medicine 04/16/23 Aida Orozco [address] [place] [address] Gastroenterology 05/26/24 Fred Castanon [address] [place] [address] 07/21/24 documented as of this encounter
--- OUTSIDE RECORDS SUMMARY | 2024-07-24 15:12 | XMS_ITS | Encounter Summary ---
Author Organization [employer] [facility] Address 75 [facility] 7t [place] [address] Care Team Providers Care Camelid Fiber Sorter Name Role Phone Emilie Davis MD Primary Care Provider +1- [phone] Morales Echavarria STORE ASSOCIATE Unavailable Unavailable August Unavailable Fred Castanon Unavailable Reason for Visit * Reason Onset Date Comments Referral 07/20/2024 Encounter Details Date Type Department Care Team (Late st Contact Info) Description 07/20/2024 Telephone [facility] MEDICINE 230 [place] [address] Emilie Davis MD 230 [place] [address] Referral Social History Tobacco Use Types Packs/Day [...] 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 Contact pt at [phone] documented in this encounter Plan of Treatment Upcoming Encounters Date Type Department Care Team (Late st Contact Info) Description 09/22/2024 9:00 AM EDT Clinical Support [facility] MEDICINE 230 [place] [address] Medina Lewis, RONALD 230 [place] [address] documented as of this encounter Visit Diagnoses Not on filedocumented in this encounter Additional Health Concerns Assessment Noted Time PHQ-9 Depression Total Score: 3 04/30/20 23 9:17 AM EST documented as of this encounter Care Teams Camelid Fiber Sorter Relationship Specialty Start Date End Date Emilie Davis MD 230 [place] [address] PCP - General Family Medicine 05/13/18 Morales Echavarria FNP 230 [place] [address] Nurse Practitioner Family Medicine 04/16/[address] [address] Gastroenterology 05/26/24 Fred Castanon [address] [place] [address] 07/21/24 documented as of this encounter
--- OUTSIDE RECORDS SUMMARY | 2024-07-24 15:12 | XMS_ITS | Encounter Summary ---
Author Organization [facility] [facility] Address [address] [place] [address] 7 [place] [address] Care Team Providers Care Geothermal Installer Name Role Phone Emilie Davis MD Primary Care Provider +1- [phone] Morales Echavarria CORPORATE SERVICES MANAGER Unavailable Unavailable August Unavailable Fred Castanon Unavailable Encounter Details Date Type Department Care Team (Late st Contact Info) Description 05/27/2022 Abstract [facility] MEDICINE [address] [place] [address] Emilie Davis MD [address] [place] [address] [phone] Social History Tobacco Use Types Packs/Day Years [...] 9:00 AM EDT Clinical Support [facility] MEDICINE [address] [place] [phone] Medina Lewis, RONALD [address] [place] [address] documented as of this encounter Procedures Procedure [...] ORDERABLES F inal Result Performing Organization Address [facility]/ZIP Co de Phone Number [facility] [address] [place] [address] [phone] documented in this encounter Visit Diagnoses Not on filedocumented in this encounter Care Teams Geothermal Installer Relationship Specialty Start Date End Date Emilie Davis MD 230 [place] [address] PCP - General Family Medicine 05/13/18 Morales Echavarria FNP [address] [place] [address] Nurse Practitioner Family Medicine 04/16/[address] [place] [address] Gastroenterology 05/26/24 Fred Castanon [address] [facility] [address] [place] [address] 07/21/24 documented as of this encounter
--- OUTSIDE RECORDS SUMMARY | 2024-07-24 15:12 | XMS_ITS | Encounter Summary ---
Author Organization [employer] [facility] Address [address] [place] [address] 7 [place] [address] Care Team Providers Care Binder Roller Name Role Phone Emilie Davis MD Primary Care Provider +1- [phone] Morales Echavarria Unavailable Unavailable August Reason for Referral * Consultation (Routine) - Authorized Specialty Diagnoses / Procedures Referred By Contac t Referred To Contact Rheumatology Diagnoses Left hip pain Emilie Davis MD [address] [place] [address] Phone: tel: fax: [facility] [address] [place] [address] Phone: tel: fax: Referral ID Status Reason Start Date Expiration Date Visits Requested Visits Authorized [id number] Authorized Specialty Services Required 07/20/2024 07/20/2025 1 1 Encounter Details Date Type Department Care Team (Late st Contact Info) Description 07/20/2024 Orders Only [facility] MEDICINE [address] [place] [address] [phone] Emilie Davis MD 230 [place] [address] Left hip pain (Primary Dx) Social History Tobacco Use Types [...] 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 on file Not on file documented as of this encounter Plan of Treatment Upcoming Encounters Date Type Department Care Team ([facility] st Contact Info) Description 09/22/2024 9:00 AM EDT Clinical Support [facility]INE 230 [place] [address] Medina Lewis, RONALD 230 [place] [address] Scheduled Referrals Name Type Priority Associated Diagnoses Order Schedule Referral to Rheumatology Outpatient Referral Routine Left hip pain Expected: 07/20/2024 (Approximate), Expires: 07/20/2025 documented as of this encounter Visit Diagnoses Diagnosis Left hip pain- Primary Pain in joint, pelvic region and thigh documented in this encounter Additional Health Concerns Assessment Noted Time PHQ-9 Depression Total Score: 3 04/30/20 23 9:17 AM EST documented as of this encounter Care Teams Binder Roller Relationship Specialty Start Date End Date Emilie Davis MD 230 [place] [address] PCP - General Family Medicine 05/13/18 Morales Echavarria FNP [address] [place] [address] Nurse Practitioner Family Medicine 04/16/23August [address] [place] [address] 3rd [place] [address] Gastroenterology 05/26/24 documented as of this encounter
--- OUTSIDE RECORDS SUMMARY | 2024-07-24 15:12 | XMS_ITS | Encounter Summary ---
Author Organization [employer] [facility] Address [address] [place] [address] 7 [place] [address] Care Team Providers Care Rock Crushing Machine Operator Name Role Phone Emilie Davis MD Primary Care Provider +1- [phone] Morales Echavarria KNITTING MACHINE OPERATOR AUTOMATIC Unavailable Unavailable August Unavailable Fred Castanon Unavailable Reason for Visit * Reason Onset Date Comments Referral 07/18/2022 Encounter Details Date Type Department Care Team (Late st Contact Info) Description 07/18/2022 Telephone [facility] MEDICINE 230 [place] [address] Emilie Davis MD 230 [place] [address] Referral Social History Tobacco Use Types Packs/Day [...] [facility]. Please contact pt [phone] documented in this encounter Plan of Treatment Upcoming Encounters Date Type Department Care Team (Late st Contact Info) Description 09/22/2024 9:00 AM EDT Clinical Support [facility] MEDICINE [address] [place] [address] Medina Lewis, RN [address] [place] [address] documented as of this encounter Visit Diagnoses Not on filedocumented in this encounter Care Teams Rock Crushing Machine Operator Relationship Specialty Start Date End Date Emilie Davis MD [address] [place] [address] PCP - General Family Medicine 05/13/18 Morales Echavarria FNP [address] [place] [address] Nurse Practitioner Family Medicine 04/16/23 Aida Orozco [address] [place] [address] 3rd [place] [address] Gastroenterology 05/26/24 Fred Castanon [address] [place] [address] 07/21/24 documented as of this encounter
[2024-07-24 16:46] LABS: Cholesterol 205 mg/dL (<200); HDL Cholesterol 63 mg/dL (>40); LDL Cholesterol Calculated 114 mg/dL (<100); Triglycerides 141 mg/dL (<150)
[2024-07-25 04:08] LABS: Syphilis Screen Reactive (Nonreactive)
[2024-07-27 15:38] LABS: HIV RNA PCR Qn Copies NOT DETECTED copies/mL (NOT DETECTED); HIV RNA PCR Qn Log Copies NOT DETECTED (NOT DETECTED)
[2024-07-31 13:10] LABS: RPR Quantitative Non-Reactive (Nonreactive); T.Pallidum Particle Agg Test Reactive (Nonreactive)
== END 2024-07-24 13:34 | disposition home or self-care (01) ==
LOC: HO.HHCL 13:33
PROVIDERS: Internal Medicine Cardiovascular Disease; Visit Provider Emergency Medicine
DX: I25.10 Atherosclerotic heart disease of native coronary artery without angina pectoris (principal); Z79.899 Other long term (current) drug therapy
CPT/HCPCS: 36415; 80061; 86592; 86780; 87536

== ENCOUNTER 2024-08-20 12:22 | Outpatient (REF) | payer OTHER, SELFPAY ==
--- NOTE | ~2024-08-20 | XR_ITS ---
EXAMINATION: XR PELVIS CLINICAL INFORMATION: persistent L groin/hip pain COMPARISON: Left hip Radiographs 06/04/2024. TECHNIQUE: AP view of the pelvis. FINDINGS: No fracture, dislocation, or suspicious bone lesion. Normal hip joint alignment. Joint spaces preserved. Femoral heads normal in contour without evidence of AVN. There is amorphous calcification abutting the left greater trochanter, findings suspicious for calcific tendinitis/bursitis. Soft tissues otherwise normal. XR/XR pelvis 1-2V IMPRESSION: 1. Amorphous calcification abutting the left greater trochanter, findings suspicious for calcific tendinitis/bursitis. 2. Otherwise normal examination. Electronically signed by: Micah Hastings MD 08/20/2024 01:42 PM EDT
--- OUTSIDE RECORDS SUMMARY | 2024-08-20 14:51 | XMS_ITS | Encounter Summary ---
Author Organization [employer] [facility] Address [address] [place] [address] 7 [place] [address] Care Team Providers Care Packaging Inspector Name Role Phone Emilie Davis MD Primary Care Provider +- [phone] Morales Echavarria TEASEL GIG OPERATOR Unavailable Unavailable August Unavailable Fred Castanon Unavailable Encounter Details Date Type Department Care Team (Late st Contact Info) Description 04/22/2022 Orders Only [facility] [address] [place], [place] [phone] Emilie Davis MD 230 [place], [place] [phone] HSV (herpes simplex virus) anogenital infection (Primary [...] Description 09/22/2024 9:00 AM EDT Clinical Support [facility]INE 230 [place], [place] [phone] Medina Lewis, RONALD 230 [place] [address] documented as of this encounter Visit Diagnoses Diagnosis HSV (herpes simplex virus) anogenital infection- Primary Herpes simplex without mention of complication documented in this encounter Care Teams Packaging Inspector Relationship Specialty Start Date End Date Emilie Davis MD [address] [place] [address] PCP - General Family Medicine 05/13/18 Morales Echavarria FNP [address] [place] [address] Nurse Practitioner Family Medicine 04/16/23 Aida Orozco [address] [place] [address] Gastroenterology 05/26/24 Fred Castanon [address] [place] [address] 07/21/24 documented as of this encounter
--- OUTSIDE RECORDS SUMMARY | 2024-08-20 14:51 | XMS_ITS | Encounter Summary ---
Author Organization [employer] [facility] Address [address] [place] [address] 7 [place] [address] Care Team Providers Care Ground Operations Crew Member Name Role Phone Emilie Davis MD Primary Care Provider +- [phone] Morales Echavarria DIRECTOR OF STUDENT FINANCIAL AID Unavailable Unavailable August Unavailable Fred Castanon Unavailable Reason for Visit * Reason Comments Med Refill Encounter Details Date Type Department Care Team (Late st Contact Info) Description 06/27/2022 Refill [facility] MEDICINE [address] [place] [address] Emilie Davis MD [address] [place] [address] [phone] Social History Tobacco Use Types Packs/Day Years [...] Description 09/22/2024 9:00 AM EDT Clinical Support [facility] MEDICINE [address] [place] [address] Medina Lewis, RONALD [address] [place] [address] documented as of this encounter Visit Diagnoses Not on filedocumented in this encounter Care Teams Ground Operations Crew Member Relationship Specialty Start Date End Date Emilie Davis MD 230 [place] [address] PCP - General Family Medicine 05/13/18 Morales Echavarria FNP [address] [place] [address] Nurse Practitioner Family Medicine 04/16/23 Aida Orozco [address] [place] [address] Gastroenterology 05/26/24 Fred Castanon [address] [place] [address] 07/21/24 documented as of this encounter
--- OUTSIDE RECORDS SUMMARY | 2024-08-20 14:51 | XMS_ITS | Encounter Summary ---
Author Organization [facility] Address [address] [place] [address] 7 [place] [address] Care Team Providers Care Junior Software Engineer Name Role Phone Emilie Davis MD Primary Care Provider +1- [phone] Morales Echavarria RESIDENT SERVICES MANAGER Unavailable Unavailable August Unavailable Fred Castanon Unavailable Encounter Details Date Type Department Care Team (Late st Contact Info) Description 05/27/2022 Abstract [facility] MEDICINE [address] [place] [address] Emilie Davis MD [address] [place] [address] [phone] Social History Tobacco Use Types Packs/Day Years [...] Description 09/22/2024 9:00 AM EDT Clinical Support [facility] MED[facility]INE [address] [place] [address] Medina Lewis, RONALD [address] [place] [address] documented as of this encounter Procedures Procedure [...] ORDERABLES F inal Result Performing Organization Address [facility]/ZIP Co de Phone Number [facility] [address] [place] [address] [phone] documented in this encounter Visit Diagnoses Not on filedocumented in this encounter Care Teams Junior Software Engineer Relationship Specialty Start Date End Date Emilie Davis MD 230 [place] [address] PCP - General Family Medicine 05/13/18 Morales Echavarria FNP [address] [place] [address] Nurse Practitioner Family Medicine 04/16/[address] [place] [address] Gastroenterology 05/26/24 Fred Castanon [address] [facility] [address] [place] [address] 07/21/24 documented as of this encounter
--- OUTSIDE RECORDS SUMMARY | 2024-08-20 14:51 | XMS_ITS | Encounter Summary ---
Author Organization [employer] Address 75 [facility] 7t [place] [address] Care Team Providers Care Hop Grower Name Role Phone Emilie Davis MD Primary Care Provider +1- [phone] Morales Echavarria Unavailable Unavailable August Unavailable Fred Castanon Unavailable Encounter Details Date Type Department Care Team (Late st Contact Info) Description 03/25/2023 Orders Only [facility] MEDICINE 230 [place], [place] [phone] Emilie Davis MD [address] [place], [place] [phone] Social History Tobacco Use Types Packs/Day Years Used Date Smoking Tobacco: Never Passive Smoke Exposure: Never Smokeless Tobacco: Never Depression Answer Date Recorded Patient Health Questionnaire-9 Score 10 02/28/2023 Patient Health Questionnaire-9 Score 10 02/28/2023 Last PHQ-9: Questionnaire Data Not on file 1 Housing Stability Answer Date Recorded What is your housing situation today? I have rbenda ta 02/28/[address] you [...] Description 09/22/2024 9:00 AM EDT Clinical Support [facility] MEDICINE [address] [place] [address] Medina Lewis RN [address] [place] [address] documented as of this encounter Visit Diagnoses Not on filedocumented in this encounter Additional Health Concerns Assessment Noted Time PHQ-9 Depression Total Score: 10 023 9:08 AM EDT documented as of this encounter Care Teams Hop Grower Relationship Specialty Start Date End Date Emilie Davis MD [address] [place] [address] PCP - General Family Medicine 05/13/18 Morales Echavarria FNP [address] [place] [address] Nurse Practitioner Family Medicine 04/16/23August [address] [place] [address] Gastroenterology 05/26/24 Fred Castanon [address] [place] [address] 07/21/24 documented as of this encounter
--- OUTSIDE RECORDS SUMMARY | 2024-08-20 14:51 | XMS_ITS | Encounter Summary ---
Author Organization [employer] [facility] Address 75 [facility] 7t [place] [address] Care Team Providers Care Home Sales Service Professional Name Role Phone Emilie Davis MD Primary Care Provider +1- [phone] Morales Echavarria SOFTWARE APPLICATIONS DESIGNER Unavailable Unavailable August Unavailable Fred Castanon Unavailable Reason for Visit * Reason Onset Date Comments Referral 07/20/2024 Encounter Details Date Type Department Care Team (Late st Contact Info) Description 07/20/2024 Telephone [facility] MEDICINE [address] [place] [address] Emilie Davis MD 230 [place] [address] Referral Social History Tobacco Use Types Packs/Day [...] 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 Contact pt at [phone] documented in this encounter Plan of Treatment Upcoming Encounters Date Type Department Care Team (Late st Contact Info) Description 09/22/2024 9:00 AM EDT Clinical Support [facility] MEDICINE [address] [place] [address] Medina Lewis, RONALD [address] [place] [address] documented as of this encounter Visit Diagnoses Not on filedocumented in this encounter Additional Health Concerns Assessment Noted Time PHQ-9 Depression Total Score: 3 04/30/20 23 9:17 AM EST documented as of this encounter Care Teams Home Sales Service Professional Relationship Specialty Start Date End Date mEilie Davis MD 230 [place] [address] PCP - General Family Medicine 05/13/18 Morales Echavarria FNP 230 [place] [address] Nurse Practitioner Family Medicine 04/16/23 Aida Orozco [address] [address] Gastroenterology 05/26/24 Fred Castanon [address] [place] [address] 07/21/24 documented as of this encounter
--- OUTSIDE RECORDS SUMMARY | 2024-08-20 14:51 | XMS_ITS | Encounter Summary ---
Author Organization [employer] Address 75 [facility] 7t [place] [address] Care Team Providers Care Pet Care Technician Name Role Phone Emilie Davis MD Primary Care Provider +1- [phone] Morales Echavarria Unavailable Unavailable August Unavailable Fred Castanon Unavailable Reason for Visit * Reason Comments Med Refill Encounter Details Date Type Department Care Team ([facility] st Contact Info) Description 01/17/2024 Refill [facility] MEDICINE [address] [place] [address] Emilie Davis MD 230 [place], [place] [phone] 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) Social [...] 9:00 AM EDT Clinical Support [facility] MEDICINE [address] [place] [address] Medina Lewis RN 230 [place] [address] documented as of this encounter Visit Diagnoses Diagnosis Gender 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- Primary documented in this encounter Additional Health Concerns Assessment Noted Time PHQ-9 Depression Total Score: 3 04/30/20 23 9:17 AM EST documented as of this encounter Care Teams Pet Care Technician Relationship Specialty Start Date End Date Emilie Davis MD [address] [place] [address] PCP - General Family Medicine 05/13/18 Morales Echavarria FNP [address] [place] [address] Nurse Practitioner Family Medicine 04/16/23August [address] [address] Gastroenterology 05/26/24 Fred Castanon [address] [place] [address] 07/21/24 documented as of this encounter
--- OUTSIDE RECORDS SUMMARY | 2024-08-20 14:51 | XMS_ITS | Encounter Summary ---
Author Organization [employer] [facility] Address [address] [place] [address] 7t [place] [address] Care Team Providers Care Hairspring Cutter Name Role Phone Emilie Davis MD Primary Care Provider +1- [phone] Morales Echavarria HISTOLOGY AIDE Unavailable Unavailable August Unavailable Fred Castanon Unavailable Reason for Visit * Reason Onset Date Comments Referral 07/18/2022 Encounter Details Date Type Department Care Team (Late st Contact Info) Description 07/18/[address] [facility] [address] [place] [address] Emilie Davis MD [address] [place] [address] Referral Social History Tobacco Use Types Packs/Day [...] to our [facility]. Please contact pt [phone] documented in this encounter Plan of Treatment Upcoming Encounters Date Type Department Care Team (Late st Contact Info) Description 09/22/2024 9:00 AM EDT Clinical Support [facility] [address] [place] [address] Medina Lewis, RN [address] [place] [address] documented as of this encounter Visit Diagnoses Not on filedocumented in this encounter Care Teams Hairspring Cutter Relationship Specialty Start Date End Date Emilie Davis MD [address] [place] [phone] PCP - General Family Medicine 05/13/18 Morales Echavarria FNP [address] [place] [address] Nurse Practitioner Family Medicine 04/16/23 Aida Orozco [address] [place] [address] [address] [place] [address] Gastroenterology 05/26/24 Fred Castanon [address] [place] [address] 07/21/24 documented as of this encounter
--- OUTSIDE RECORDS SUMMARY | 2024-08-20 14:52 | XMS_ITS | Encounter Summary ---
Author Organization [employer] [facility] Address [address] [facility] 7t [place] [address] Care Team Providers Care Inventory Auditor Name Role Phone Emilie Davis MD Primary Care Provider +1- [phone] Morales Echavarria ASSISTANT LOAN PROCESSOR Unavailable Unavailable August Unavailable Fred Castanon Unavailable Reason for Visit * Reason Onset Date Comments Results 08/20/2024 Encounter Details Date Type Department Care Team (Late st Contact Info) Description 08/20/2024 Telephone [facility] [address] [place] [address] Emilie Davis MD [address] [place] [address] Results Social History Tobacco Use Types Packs/Day Years [...] 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 Advised pt that left hip xray from 05/2024 was normal. Pt reporting severe pain at left hip over the last month, rated it a 20/10 and stated that he can only sleep for 3 hours per night because the pain is so intense. Reports walking with limp. Reports taking tramadol and a cream but these are not helping. Advised pt of need for re-evaluation, informed them of [facility] hours today, pt then reports being at [facility] pharmacy right now, advised ptto go to [facility] now for provider evaluation. Pt in agreement, stated will go to [facility] now. * Telephone Encounter - Yumi Tinajero - 08/20/2024 10:25 AM EDT TC from pt requesting call back regarding Results. Type of results: XR Hip 2 or 3 Views Left Date when done: 06/04/2024 Facility: [facility] documented in this encounter Plan of Treatment Upcoming Encounters Date Type Department Care Team (Late st Contact Info) Description 09/22/2024 9:00 AM EDT Clinical Support [facility] [address] [place] [address] Medina Lewis, RN [address] [place] [address] documented as of this encounter Visit Diagnoses Not on filedocumented in this encounter Additional Health Concerns Assessment Noted Time PHQ-9 Depression Total Score: 3 04/30/20 9:17 AM EST documented as of this encounter Care Teams Inventory Auditor Relationship Specialty Start Date End Date Emilie Davis MD [address] [place] [id number] PCP - General Family Medicine 05/13/18 Morales Echavarria FNP [address] [place] [address] Nurse Practitioner Family Medicine 04/16/23August [address] [place] [address] Gastroenterology 05/26/24 Fred Castanon [address] [place] [address] 07/21/24 documented as of this encounter
--- OUTSIDE RECORDS SUMMARY | 2024-08-20 14:52 | XMS_ITS | Encounter Summary ---
Author Organization [facility] Address [address] [place] [address] 7t [place] [address] Care Team Providers Care Credit Verification Clerk Name Role Phone Emilie Davis MD Primary Care Provider +1- [phone] Morales Echavarria BUSINESS APPLICATIONS DEVELOPER Unavailable Unavailable August Unavailable Fred Castanon Unavailable Encounter Details Date Type Department Care Team (Late st Contact Info) Description 11/28/2022 Abstract [facility] [address] [place] [phone] Emilie Davis MD [address] [place] [address] Social History Tobacco Use Types Packs/Day Years [...] Description 09/22/2024 9:00 AM EDT Clinical Support [facility] [address] [place] [address] Medina Lewis RN [address] [place] [address] documented as of this encounter Visit Diagnoses Not on filedocumented in this encounter Additional Health Concerns Assessment Noted Time PHQ-9 Depression Total Score: 19 023 9:24 AM EDT documented as of this encounter Care Teams Credit Verification Clerk Relationship Specialty Start Date End Date Emilie Davis MD [address] [place] [address] PCP - General Family Medicine 05/13/18 Morales Echavarria FNP [address] [place] [phone] Nurse Practitioner Family Medicine 04/16/23 Aida Orozco [address] [place] [address] Gastroenterology 05/26/24 Fred Castanon [address] [place] [address] 07/21/24 documented as of this encounter
--- OUTSIDE RECORDS SUMMARY | 2024-08-20 14:52 | XMS_ITS | Encounter Summary ---
Author Organization [employer] [facility] Address [address] [facility] 7t [place] [address] Care Team Providers Care Heavy Media Operator Name Role Phone Emilie Davis MD Primary Care Provider +1- [phone] Morales Echavarria NURSE TECHNICIAN Unavailable Unavailable August Unavailable Fred Castanon Unavailable Reason for Visit * Reason Onset Date Comments Med Refill 04/22/2024 Encounter Details Date Type Department Care Team (Late st Contact Info) Description 04/22/2024 Telephone [facility] [address] [place] [address] Emilie Davis MD [address] [place], [place] [phone] Med Refill Social History Tobacco Use Types [...] 200 MG/5ML suspension To be sent to: [facility] - [place], [place] - [address] [facility] documented in this encounter Plan of Treatment Upcoming Encounters Date Type Department Care Team ([facility] st Contact Info) Description 09/22/2024 9:00 AM EDT Clinical Support [facility] [address] [place] [address] Medina Lewis, RONALD [address] [place] [address] documented as of this encounter Visit Diagnoses Not on filedocumented in this encounter Additional Health Concerns Assessment Noted Time PHQ-9 Depression Total Score: 3 04/30/20 23 9:17 AM EST documented as of this encounter Care Teams Heavy Media Operator Relationship Specialty Start Date End Date Emilie Davis MD [address] [place] [address] PCP - General Family Medicine 05/13/18 Morales Echavarria FNP [address] [place] [address] Nurse Practitioner Family Medicine 04/16/23 Pam Aida [address] [address] Gastroenterology 05/26/24 Fred Castanon [address] [address] 07/21/24 documented as of this encounter
--- OUTSIDE RECORDS SUMMARY | 2024-08-20 14:52 | XMS_ITS | Clinical Summary ---
Author Organization [employer] Address [address] [facility] [address] [place] [address] Care Team Providers Care House Piping Inspector Name Role Phone LickingEmilie moreira MD Primary Care Provider [phone] Morales Echavarria Unavailable Unavailable August Unavailable Fred Castanon Unavailable Allergies Active Allergy Reactions Criticality Noted Date Comments Penicillins Anaphylaxis,Rash High 05/16/2017 Sumatriptan 10/28/2018 Medications * This document contains information received from the source organization and may not represent a complete record from that organization. Needle, Disp, (BD Disp [place]) 25G X 5/8 miscIndications :Gender 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 USE TO INJECT Testosterone INTRAMUSCULARLY EVERY 2 WEEKS DIRECTED 25 each 3 03/16/20 24 Active Needle, Disp, (BD Hypodermic Needle) 16G X 1 miscIndications :Gender 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 USE TO DRAW UP testosterone EVERY 2 WEEKS 24 each 1 03/16/20 24 Active Needle, Disp, (B-D HYPODERMIC NEEDLE 22GX1 ) 22G X 1 miscIndications :Gender 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 Use with testosterone 12 each 3 03/16/20 24 Active loratadine (Claritin) 10 MG tabletIndicatio ns:Seasonal allergies Take 1 tablet (10 mg) by mouth if needed each day for allergies. 30 tablet 1 03/16/20 24 Active mirtazapine (Remeron) 15 MG tabletIndicatio ns:Seasonal allergies Take 1 tablet (15 mg) by mouth at bedtime. 90 tablet 1 03/16/20 24 Active BD Plastipak Syringe 3 ML miscIndications :Gender 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 USE FOR TESTOSTERONE 12 each 3 03/16/20 24 Active omeprazole OTC (PriLOSEC OTC) 20 MG EC tabletIndicatio ns:Generalized abdominal pain Take 1 tablet (20 mg) by mouth if needed each day (gerd). Do not crush, chew, or split. 30 tablet 3 03/16/20 24 025 Active Cabotegravir ER (Apretude) 600 MG/3ML Suspension Extended ReleaseIndicati ons:Encounter for HIV pre-exposure prophylaxis Inject monthly IM Ventrogluteal 3 mL 1 04/17/20 24 Active Cabotegravir ER (Apretude) 600 MG/3ML Suspension Extended ReleaseIndicati ons:Encounter for HIV pre-exposure prophylaxis Inject 3 mL every other month IM Ventrogluteal 3 mL 5 05/21/19 25 Active doxycycline (Vibramycin) 100 MG capsule TAKE 2 CAPSULES BY MOUTH DAILY WITHIN 72 HOURS OF unprotected sex. TAKE WITH A FULL GLASS OF WATER AND Do not lie down for 30 minutes after taking. 30 capsule 07/09/19 25 Active testosterone cypionate (Depo-Testoster one) 200 MG/ML injectionIndica tions:Gender dysphoria INJECT 0.5 ML INTRAMUSCULARLY EVERY 2 WEEKS 4 mL 2 07/13/19 25 Active Hospital, Clinic, or Other Facility Administered Medication [...] XR 05/20/24 Coronary artery disease invo lving [place]ahuilla heart without angina pectoris 05/20/2024 Acquired syphilis 03/23/2024 Overview (03/23/2024): Lab Results Component Value Date SYPHILISSCRE Reactive (A) 03/18/2024 TREPPALAB Reactive (A) 03/18/2024 RPRQUANT Non-Reactive 03/18/2024 -will call [facility] regarding need for testing 03/23/24 -pt allergic [...] due after 03/16/2025 -eye care facilitated by [facility]. -dental home is [facility] -health care proxy filed 03/16/24 Assessment & Plan (03/17/2024 6:12 AM EST): -next physical exam due after 03/16/2025 -eye care facilitated by [facility]. -dental home is [facility] -health care proxy filed 03/16/24 Assessment & Plan (03/22/2023 9:17 AM EST): -next physical exam due after 12/07/2023. -eye care facilitated by [facility]. -dental home is outside of [facility] Assessment & Plan (12/06/2022 10:19 AM EDT): -next physical exam dueafter 12/07/2023. -eye care facilitated by [facility]. -dental home is outside of [facility] Hx of hepatitis C 11/26/2022 [...] rays suggests osteoarthritis. Seen by rheumatology in [place]. Ibuprofen and NSAIDs cause gastritis. Minimal relief with acetaminophen. He was referred back to rheumatology in [place] 08/23/2020 but provider left the area. started on Tramadol. Take 3 times per week. He is not taking at this time. Assessment & Plan (03/17/2024 6:08 AM EST): X rays suggests osteoarthritis. Seen by rheumatology in [place]. Ibuprofen and NSAIDs cause gastritis. Minimal relief with acetaminophen. He was referred back to rheumatology in [place] 08/23/2020 but provider left the area. started on Tramadol. Take 3 times per week. He is not taking at this time. Assessment & Plan (03/22/2023 9:15 AM EST): X rays suggests osteoarthritis. Seen by rheumatology in [place]. Ibuprofen and NSAIDs cause gastritis. Minimal relief with acetaminophen. He was referred back to rheumatology in [place] 08/23/2020 but provider left the area. started on Tramadol. Take 3 times per week. Will need COT in the future. Assessment & Plan (12/06/2022 8:54 AM EDT): X rays suggests osteoarthritis. Seen by rheumatology in [place]. Ibuprofen and NSAIDs cause gastritis. Minimal relief with acetaminophen. He was referred back to rheumatology in [place] 08/23/2020 but provider left the area. started on Tramadol. Take 3 times per week. Will need COT in the future. Assessment & Plan (10/11/2022 9:58 AM EDT): X rays suggests osteoarthritis. Seen by rheumatology in [place]. Ibuprofen and NSAIDs cause gastritis. Minimal relief with acetaminophen. He was referred back to rheumatology in [place] 08/23/2020 but provider left the area. started [...] Now with palpitations. Will refer to his motor scooter mechanic for bradycardia. Assessment & Plan (03/22/2023 9:16 AM EST): Sinus bradycardia and asymptomatic. Pt states he always has slow heart rate Pt repots heart rate in 40s recorded with home BP monitor with symptoms of dizziness recorded at home. Now with palpitations. Will refer to his motor scooter mechanic for bradycardia. Assessment & Plan (12/06/2022 8:54 AM EDT): Sinus bradycardia and asymptomatic. Pt states he always has slow heart rate Pt repots heart rate in 40s recorded with home BP monitor with symptoms of dizziness recorded at home. Now with palpitations. Will refer to his motor scooter mechanic for bradycardia. Assessment & Plan (10/11/2022 9:58 AM EDT): Sinus bradycardia and asymptomatic. Pt states he always has slow heart rate Pt repots heart rate in 40s recorded with home BP monitor with symptoms of dizziness recorded at home. Now with palpitations. Will refer to his motor scooter mechanic for bradycardia. Generalized abdominal pain 06/25/2021 Overview [...] for GI. Insurance no longer accepted at [facility]. -EGD scheduled for December 2021. Assessment [...] for GI. Insurance no longer accepted at [facility]. -EGD scheduled for December 2021. Assessment [...] for GI. Insurance no longer accepted at [facility]. -EGD scheduled for December 2021. Assessment [...] for GI. Insurance no longer accepted at [facility]. -EGD scheduled for December 2021. Assessment [...] for GI. Insurance no longer accepted at [facility]. -EGD scheduled for December 2021. History of non-ST elevation myocardial infarctio n (NSTEMI) 06/25/2021 Overview (07/21/2024): Hx NSTE NE 09/2017 -continue oscar -Stress test without evidence [...] Plan (05/20/2024 4:29 PM EST): Hx NSTE NE 09/2017 -continue oscar -Stress test without evidence of ischemia 04/08/18 -he held statin and ASA due to GI upset -trial of restarting statin 01/[address] on 05/08/24 showed Coronary artery atherosclerosis. Pt wants to get reestablished with cardiology. -referral sent 05/20/24 Assessment & Plan (03/22/2023 9:17 AM EST): Hx NSTE NE 09/2017 -continue oscar -Stress test without evidence of ischemia 04/08/18 -he held statin and ASA due to GI upset -trial of restarting statin 01/2019 Assessment & Plan (12/06/2022 8:55 AM EDT): Hx NSTE NE 09/2017 -continue oscar -Stress test without evidence of ischemia 04/08/18 -he held statin and ASA due to GI upset -trial of restarting statin 01/2019 Assessment & Plan (10/11/2022 9:57 AM EDT): Hx NSTE NE 09/2017 -continue oscar -Stress test without evidence of ischemia 04/08/18 -he held statin and ASA due to GI upset -trial of restarting statin 01/2019 Seasonal allergies 06/25/2021 Gender 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 10/03/2018 Overview (03/26/2024): Pt identifies as male and is changed his name in [place] October 2020. -He restarted testosterone 08/2020 -S/p chest reconstruction 10/2018 -Testosterone was 654 on 10/2022 Lab Results Component Value Date TESTTOTAL 1641 (A) 03/18/2024 HGB 16.2 (H) 03/18/2024 HGB 15.8 10/18/2022 HCT 47.3 (H) 03/18/2024 Goal testosterone levels 350-700ng/dl. Assessment & Plan (03/17/2024 6:12 AM EST): Pt identifies as male and is changing his name in [place] October 2020. He restarted testosterone 08/2020 S/p chest reconstruction 10/2018 Pt would like to switch small needle to subcutaneous instead. 25 gague needles sent 12/06/2022 Testosterone was 654 on 10/2022. Assessment & Plan (03/22/2023 9:16 AM EST): Pt identifies as male and is changing his name in [place] October 2020. He restarted testosterone 08/2020 S/p chest reconstruction 10/2018 Pt would like to switch small needle to subcutaneous instead. 25 gague needles sent 12/06/2022 Testosterone was 654 on 10/2022. Assessment & Plan (12/06/2022 11:18 AM EDT): Pt identifies as male and is changing his name in [place] October 2020. He restarted testosterone 08/2020 S/p chest reconstruction 10/2018 Pt would like to switch small needle to subcutaneous instead. 25 gague needles sent 12/06/2022 Testosterone was 654 on 10/2022. Assessment & Plan (10/11/2022 9:59 AM EDT): Pt identifies as male and is changing his name in [place] October 2020. He restarted testosterone 08/2020 S/p chest reconstruction 10/[address] scan, lung 10/04/2017 Overview (05/20/2024): -Ct scan in [facility] on 12/25/2017 showed multiple indeterminate nodules, [...] 11/15/23 and NO SHOW. Pt can call [phone] to schedule mariely. number given to call 03/16/24 -CT 05/08/24 No acute intrathoracic findings. Calcified granulomas present bilaterally. No suspicious pulmonary nodule identified. Air-fluid level present within the midthoracic esophagus can be associated with gastroesophageal reflux disease and esophageal dysmotility. Coronary artery atherosclerosis. Assessment & Plan (05/20/2024 4:05 PM EST): -Ct scan in [place] [facility] on 12/25/2017 showed multiple indeterminate nodules, [...] 11/15/23 and NO SHOW. Pt can call [phone] to schedule mariely. number given to call 03/16/24 -CT 05/08/24 No acute intrathoracic findings. Calcified granulomas present bilaterally. No suspicious pulmonary nodule identified. Air-fluid level present within the midthoracic esophagus can be associated with gastroesophageal reflux disease and esophageal dysmotility. Coronary artery atherosclerosis. Assessment & Plan (03/17/2024 6:13 AM EST): -Ct scan in [place] ER on 12/25/2017 showed multiple indeterminate nodules, [...] 11/15/23 and NO SHOW. Pt can call [phone] to schedule mariely. number given to call 03/16/24 Assessment & Plan (03/22/2023 9:16 AM EST): -Ct scan in [place] ER on 12/25/2017 showed multiple indeterminate nodules, largest was solid and measured 2mm. -Given that the Pt has a tobacco Hx and quit in 2018 we referrred to pulmonology that was likely distrupted by the pandemic. -Will ordered repeat CT of chest to follow the nodles. Assessment & Plan (12/06/2022 10:18 AM EDT): -Ct scan in [place] ER on 12/25/2017 showed multiple indeterminate nodules, [...] referred for OP services and referral to [facility] Psychopharmacology clinic. Provided Crisis contact [...] Therapy and Medication Management. At this time Harrietsalvatore Roberson meets criteria for Visit Diagnoses: Problem List Items Addressed This Visit None Patient ready to address current needs Yes Strengths include vanessa is in action stage of change and the motivation will serve as treatment engagement. PLAN: 1. Follow up with [facility]: Not recommended for follow-up 2. Patient goal is to learn coping mechanisms to manage sxs. 3. Behavioral Recommendations a. Ind. Therapy and Medication Management b. Continue using coping skills c. HC support as needed. Mild major depression 06/25/20212023 Encounters Date Type Department Care Team Description 08/20/2024 11:20 AM EDT Office Visit [facility] [place] [address] Left hip pain (Primary Dx) 08/20/[address] [address] Emilie Davis MD Results 08/04/[address] [address] Nahun Dyer MD 07/24/2024 1:00 PM EDT Clinical Support [address] [address] Medina Lewis, RN On pre-exposure prophylaxis for HIV (Primary Dx) 07/24/2024 Orders Only GENERIC EXTERNAL DATA DEPARTMENT Provider, Generic External Data 07/24/2024 Travel 07/20/2024 Orders Only [address] [address] Emilie Davis MD Left hip pain (Primary Dx) 07/20/[address] [address] Emilie Davis MD Referral 07/16/[address] [address] Medina Lewis, RN 07/13/[address] [address] Medina Lewis, RN 07/10/[address] [address] Bijal Irene, RN Gender dysphoria 07/08/[address] [address] Emilie Davis MD 07/08/2024 Orders Only [facility] MEDICINE [address] [place] [address], [place] [address] Emilie Davis MD 07/02/2024 Telephone [facility] MEDICINE [address] [place] [phone] Medina Lewis RN 06/30/[address] [address] Emilie Davis MD May recalls 06/08/2024 Telephone [facility] MEDICINE [address] [place] [address], [place] [address] Emilie Davis MD from Last 3 Months Immunizations Name Administration [...] Industry Job Start Date Job End Date [employer] Not on file Not on file Not on file Last Filed Vital Signs Vital Sign Reading Time Taken Comments Blood Pressure 94/62 08/20/2024 11:16 AM EDT Pulse 57 08/20/2024 11:16 AM EDT Temperature 36.6 ??C (97.9 ??F) 08/20/2024 11:16 AM E DT Respiratory Rate 17 08/20/2024 11:16 AM EDT Oxygen Saturation 99% 08/20/2024 11:16 AM EDT Inhaled Oxygen Concentration - - Weight 52 kg (114 lb 9.6 oz) 08/20/2024 11:16 AM EDT Height 161.3 cm (5' 3.5 ) 05/20/2024 4:01 PM EST Body Mass Index 19.98 05/20/2024 4:01 PM EST Plan of Treatment Upcoming Encounters Date Type Department Care Team (Late st Contact Info) Description 09/22/2024 9:00 AM EDT Clinical Support [facility] MEDICINE [address] [place] [address] Medina Lewis, RN [address] [place] [address] Health Maintenance Due Date Last Done Comments [...] 11/11, 12/06/2017 Pap Smear 03/22/2028 03/22/2023, 12/06/2017 DTaP/Tdap/Td Vaccines (2 - Td or Tdap) 06/18/2029 06/18/2019 Lipid Panel 07/24/2029 07/24/2024, 10/2023, 10/18/2022, Additional history exists RSV Patients and Patients Aged 60 years or older (1 - 1-dose 75+ series) 02/12/2044 Hepatitis A Vaccines Completed 03/16/2024, 12/08/19 23 Hepatitis B Vaccines Completed 03/16/2024, 01/07/2023, 12/07/2022 HIV Screening Completed 07/24/2024, 01/2025, 04/20/2024, Additional history exists HIB Vaccines Aged Out [...] Name Priority Date/Time Associated Diagnosis Comments XR PELVIS 1-2 VIEWS Routine 08/20/2024 1 2:22 PM EDT Left hip pain POCT RAPID HIV SCREENING Routine 07/24/2024 2:17 PM EDT On pre-exposure prophylaxis for HIV CONFIRMATORY SYPHILIS PROFILE Routine 07/24/2024 1:36 PM EDT HIV 1 RNA, QUANTITATIVE REAL TIME PCR Routine 07/24/2024 1:36 PM EDT SYPHILIS SCREEN Routine 07/24/2024 1:36 PM EDT LIPID PANEL, STANDARD Routine 07/24/2024 1:36 PM EDT XR HIP 2 OR 3 VIEWS LEFT Routine 06/04/2024 12:17 PM EST Chronic left hip pain HPV MRNA E6/E7 REFLEX TO HPV 16, 18/45 Routine 03/22/2023 11:30 AM EST PAP SMEAR Routine 03/22/2023 11:30 AM EST HM COLONOSCOPY Routine 01/30/2018 from Last 3 Months or Most Recently Relevant to Health Maintenance Results * XR Pelvis 1-2 Views (08/20/2024 12:22 PM EDT) Anatomical Region Laterality Modality Body, Pelvis Radiographic Aurora ging 08/20/2024 12:2 2 PM EDT Narrative 08/20/2024 1:45 PM EDT ?[facility] ?[address] ?[place] [address] ?XRay Report ? Signed ? Patient: Trace Roberson,Harriet ?MR#: [id number] ?? [id number] ? : 1970 ?Acct:[id number] ? Age/Sex: 54 / F ?ADM Date: 08/20/24 ? Loc: HO.HHCX ? Attending Dr: Jacquie Garibay DO ? Ordering Physician: Jacquie Garibay DO ?? Date of Service: 08/20/24 ?? Procedure(s): XR pelvis 1-2V ?? Accession Number(s): [id number] ? cc: Jacquie Garibay DO ? EXAMINATION: ?? XR PELVIS ? CLINICAL INFORMATION: ?? persistent L groin/hip pain ? COMPARISON: ?? Left hip Radiographs 06/04/2024. ? TECHNIQUE: ?? AP view of the pelvis. ? FINDINGS: ?? No fracture, dislocation, or suspicious bone lesion. ?? Normal hip joint alignment. ??Joint spaces preserved. Femoral heads ?? normal in contour without evidence of AVN. ?? There is amorphous calcification abutting the left greater trochanter, ?? findings suspicious for calcific tendinitis/bursitis. ? Soft tissues otherwise normal. ? XR/XR pelvis 1-2V ?? IMPRESSION: ?? 1. Amorphous calcification abutting the left greater trochanter, ?? findings suspicious for calcific tendinitis/bursitis. ?? 2. Otherwise normal examination. ? Electronically signed by: ??Micah Hastings MD ??08/20/2024 01:42 PM EDT RP ? Dictated By: ?Micah Hastings MD ? Signed By: ?<Electronically signed by Micah Hastings MD in OV> ?08/20/24 1342 ? DD/ 1222 ? TD/TT: 08/20/24 1256 ? Lawn Care Technician: ? Procedure Note Harvinder Cervantes - 08/20/[address] [facility] [address] [place] [address] XRay Report Signed Patient: Harriet ValdezMR#: [id number] : 1970Acct:[id number] Age/Sex: 54 / FADM Date: 08/20/24 Loc: HO.HHCX Attending Dr: Jacquie Garibay DO Ordering Physician: Jacquie Garibay DO Date of Service: 08/20/24 Procedure(s): XR pelvis 1-2V Accession Number(s): [id number] cc: Jacquie Garibay DO EXAMINATION: XR PELVIS CLINICAL INFORMATION: persistent L groin/hip pain COMPARISON: Left hip Radiographs 06/04/2024. TECHNIQUE: AP view of the pelvis. FINDINGS: No fracture, dislocation, or suspicious bone lesion. Normal hip joint alignment. Joint spaces preserved. Femoral heads normal in contour without evidence of AVN. There is amorphous calcification abutting the left greater trochanter, findings suspicious for calcific tendinitis/bursitis. Soft tissues otherwise normal. XR/XR pelvis 1-2V IMPRESSION: 1. Amorphous calcification abutting the left greater trochanter, findings suspicious for calcific tendinitis/bursitis. 2. Otherwise normal examination. Electronically signed by: Micah Hastings MD 08/20/2024 01:42 PM EDT Dictated By: Micah Hastings MD Signed By: <Electronically signed by Micah Hastings MD in OV> 08/20/24 1342 DD/ 1222 TD/TT: 08/20/24 1256 Lawn Care Technician: us Jacquie Garibay DO IMG XR PROCEDURES Final Resu lt * POCT RAPID HIV SCREENING (07/24/2024 2:17 PM EDT) Blood 07/24/2024 2:17 PM EDT Narrative Medina Lewis RN - 07/24/2024 2:17 PM EDT negative us Nahun Dyer MD POINT OF CARE TEST ENTER/EDIT ORDERABLES Final Result * (ABNORMAL) Confirmatory Syphilis Profile (07/24/2024 1:36 PM EDT) Pathologist [facility] Rapid Plasma Reagin, Quant Non-React jovanny Nonreactive [facility] Treponema pallidum Antibody, Particle Agglutination Reactive( A) Nonreactive [facility] Comment:These results must b e reported by the ordering clinician orclinical facility to the [facility] required by state law.Testing performed at: [address] [address] 07/24/2024 1:36 PM EDT 07/25/2024 4:05 AM EDT Nahun Dyer MD LAB BLOOD ORDERABLES Final Res ult Performing Organization Address City/[facility]/ZIP Co de Phone Number [facility] [address] [place] [phone] * (ABNORMAL) Syphilis Screen (07/24/2024 1:36 PM EDT) [facility] Syphilis Screen Reactive( A) Nonreactive [facility] Comment:Reactive specimens a re sent to the [facility] Labfor confirmatory tests. 07/24/2024 1:36 PM EDT 07/24/2024 4:20 PM EDT Nahun Dyer MD LAB BLOOD ORDERABLES Final Res ult Performing Organization Address City/[facility]/ZIP Co de Phone Number [facility] [address] [place] [phone] * HIV-1 RNA, Quantitative, Real-Time PCR (07/24/2024 1:36 PM EDT) [facility] HIV RNA PCR Qn Copies NOT DETECTED NOT DETECTED copies/mL [facility] HIV RNA PCR Qn Log Copies NOT DETECTED NOT DETECTED [facility] Comment:Result Units: Log co pies/mLThis test was performed using Real-Time Polymerase ChainReaction.Reportable Range: 20 copies/mL to 10,000,000 copies/mL(1.30 log copies/mL to 7.00 log copies/mL).THIS TEST WAS PERFORMED AT:[facility] [place] [phone] MALDONADO MD 07/24/2024 1:36 PM EDT 07/24/2024 4:20 PM EDT Nahun Dyer MD LAB BLOOD ORDERABLES Final Res ult Performing Organization Address [facility] Co de Phone Number [facility] [address] [place] [phone] * (ABNORMAL) Lipid Panel, Standard (07/24/2024 1:36 PM EDT) Triglycerides 141 <150 mg/dL [facility] Comment:Desirable Triglyceri de: less than 150 mg/dLBorderline High Triglyceride 150-199 mg/dLHigh Triglyceride: 200-499 mg/dLVery High Triglyceride: greater than or equal to 5OO mg/dL Cholesterol 205(H) <200 mg/dL [facility] Comment:Desirable Cholestero l: less than 200 mg/dLBorderline High Cholesterol: 200-239 mg/dLHigh Cholesterol: greater than 239 mg/dL LDL Cholesterol Calculated 114(H) <100 mg/dL [facility] Comment:Desirable LDL: less than 100 mg/dLNear Optimal/Above Optimal LDL: 110- 129 mg/dLBorderline High LDL: 130-159 mg/dLHigh LDL: 160-189 mg/dLVery High LDL: greater than or equal to 190 mg/dL HDL Cholesterol 63 >40 mg/dL [facility] Comment:Desirable HDL: great er than 40 mg/dL Note: This HDL assay may give artificially low results in patients with liver disease. 07/24/2024 1:36 PM EDT 07/24/2024 4:20 PM EDT us Generic External Data Provider LAB BLOOD ORDERAB LES Final Result Performing Organization Address [facility]/ZIP Co de Phone Number [facility] [address] [place] [phone] * XR Hip 2 or 3 Views Left (06/04/2024 12:17 PM EST) Anatomical Region Laterality Modality Lower Extremities, Hip Left Radiograp hic Imaging 06/04/2024 12:1 7 PM EST Narrative 06/04/2024 1:06 PM EST ?[facility] ?[address] ?[place] [address] ?XRay Report ? Signed ? Patient: Trace Roberson,Harriet ?MR#: [id number] ?? [id number] ? : 1970 ?Acct:[id number] ? Age/Sex: 54 / F ?ADM Date: 06/04/24 ? Loc: HO.HHCX ? Attending Dr: Emilie Davis MD ? Ordering Physician: Emilie Davis MD ?? Date of Service: 06/04/24 ?? Procedure(s): XR hip LT min 2V ?? Accession Number(s): [id number] ? cc: Emilie Davis MD ? EXAMINATION: [...] 01:04 PM EST RP ? Dictated By: ?Kasia,Jimmy S MD ? Signed By: ?<Electronically signed by Jimmy Pedroza MD in OV> ?06/04/24 1304 ? DD/ 1217 ? TD/TT: 06/04/24 1230 ? Lawn Care Technician: MSM ? Procedure Note Helen, Harvinder - 06/04/[address] [address] XRay Report Signed Patient: Harriet Valdez#: [id number] : 1970Acct:[id number] Age/Sex: 54 / FADM Date: 06/04/24 Loc: HO.HHCX Attending Dr: Emilie Davis MD Ordering Physician: Emilie Davis MD Date of Service: 06/04/24 Procedure(s): XR hip LT min 2V Accession Number(s): [id number] cc: Emilie Davis MD EXAMINATION: XR HIP, [...] 06/04/24 1304 DD/ 1217 TD/TT: 06/04/24 1230 Lawn Care Technician: [facility] Emilie Davis MD IMG XR PROCEDURES Final Re sult * HPV mRNA E6/E7 w/Reflex to HPV Genotypes 16, 18/45 (03/22/2023 11:30 AM EST) HPV nRNA E6/E7 Not Detected Not Detected [facility] Comment:Methodology: Transcr iption-Mediated AmplificationThis assay detects E6/E7 viral messenger RNA (mRNA) from 14high-risk HPV types (16,18,31,33,35,39,45,51,52,56,58,59,66,68).Cervical sources are required for HPV testing.If a vaginal source from a patient who has had atotal hysterectomy with removal of cervix wassubmitted, please contact the testing laboratoryfor alternative testing options.For additional information, please refer tohttp://education.[facility]/faq/UHI211o5(This link if provided for information/educational purposes only.)THIS TEST WAS PERFORMED AT:[facility] [place] [id number] MALDONADO MD HPV mRNA E6/E7 TNP [facility] HPV 16 RNA TNP [facility] HPV 18/45 RNA TNP [facility] 03/22/2023 11:3 0 AM EST 03/25/2023 12:20 PM EST us Emilie Davis MD LAB CYTOLOGY ORDERABLES Fi nal Result [facility] [address] [place] [phone] * Pap Smear (03/22/2023 11:30 AM EST) 03/22/2023 11:3 0 AM EST 03/25/2023 12:20 PM EST Narrative [facility] - 04/11/2023 11:26 AM EST ----- ------- Name: Harriet Valdez ?Age/Sex: 53/F ? : 1970 Unit#: [id number] ?? Attend Dr: RADHA VILLAREAL ?Re03/22/23 ?Status: DEP REF ? Location: HO.HHCLNP ? Disch: ? ----- ------- SPEC : [id number] ?RECD: 03/25/23 ? STATUS: ??SOUT ? REQ NUM: [id number] ? AMBREEN: 03/22/23 ? SUBM DR: Emilie Davis MD ? ENTERED: ??03/25/23 ?SP TYPE: Pap Smr ?OTHR : ? ORDERED: ??Pap Smear ? Interpretation ?? Satisfactory for evaluation. ?? Negative for intraepithelial lesion or malignancy. ?HPV mRNA E6/E7: ?NOT DETECTED ? This assay detects E6/E7 viral messenger RNA (mRNA) from 14 high-risk HPV types (16, 18, ?? 31, 33, 35, 39, 45, 51, 52, 56, 58, 59, 66, 68) ?? HPV testing performed by [facility], [place], [place]. ??See reference laboratory ?? portion of the EMR for entire report. ?Clinical Information LMP: Unknown date Previous PAP test: Unknown date, WNL Other history: Pt on testosterone, surgical post menopause ? Material Received ?? ThinPrep-Cervical ----- ------- Signed (signature on file) SERENA Alejandro ([facility]) 04/11/23 1126 ? ----- ------- ? END OF REPORT ? Emilie Davis MD LAB CYTOLOGY ORDERABLES Fi nal Result [facility] [address] [place] [phone] * Colonoscopy (01/30/2018) Colonoscopy normal Historical Provider HEALTH MAINTENANCE Final Result from Last 3 Months or Most Recently Relevant to Health Maintenance Insurance [facility] Advance Directives Documents on File Type Date Recorded Patient Shaker Tender Expl anation Advance Directives and Living Will 03/16/2024 Health Care Proxy 03/16/24 Care Teams House Piping Inspector Relationship Specialty Start Date End Date [place], MD Emilie [address] [place] [phone] PCP - General Family Medicine 05/13/18 Morales Echavarria FNP [address] [place] [address] Nurse Practitioner Family Medicine 04/16/23 Pam Aida [address] [place] [phone] Gastroenterology 05/26/24 Fred Castanon [address] [place] [phone] 07/21/24
--- OUTSIDE RECORDS SUMMARY | 2024-08-20 14:52 | XMS_ITS | Encounter Summary ---
Author Organization [employer] Address [address] [facility] [address] [place] [address] Care Team Providers Care Electrical Project Engineer Name Role Phone Ryan, Emilie MARSICAL Primary Care Provider [phone] JUSTICE Unavailable Unavailable August Unavailable Fred Castanon Unavailable Reason for Visit * Reason Comments Hip Pain Encounter Details Date Type Department Care Team (Late st Contact Info) Description 08/20/2024 11:20 AM EDT Office Visit [facility] [place] [address] [place] [address] Left hip pain (Primary Dx) Social History [...] your housing situation today? I have brenda at 03/16/[address] you li [...] Job Start Date Job End Date [employer] Not on file Not on file Not on file documented as of this encounter Last Filed Vital Signs Vital Sign Reading [...] 9.6 oz) 08/20/2024 11:16 AM EDT Height - - Body Mass Index 19.98 05/20/2024 4:01 PM EST documented in this encounter Plan of Treatment Upcoming Encounters Date Type Department Care Team (Late st Contact Info) Description 09/22/2024 9:00 AM EDT Clinical Support [facility] [address] [place] [address] Medina Lewis, RN [address] [place] [address] documented as of this encounter Procedures Procedure Name Priority Date/Time Associated Diagnosis Comments XR PELVIS 1-2 VIEWS Routine 08/20/2024 1 2:22 PM EDT Left hip pain documented in this encounter Results * XR Pelvis 1-2 Views (08/20/2024 12:22 PM EDT) Anatomical Region Laterality Modality Body, Pelvis Radiographic Aurora ging 08/20/2024 12:2 2 PM EDT Narrative 08/20/2024 1:45 PM EDT ?[facility] ?[address] ?[place] [address] ?XRay Report ? Signed ? Patient: Harriet Valdez ?MR#: [id number] ?? [id number] ? : 1970 ?Acct:[id number] ? Age/Sex: 54 / F ?ADM Date: 08/20/24 ? Loc: HO.HHCX ? Attending Dr: Jacquie Garibay DO ? Ordering Physician: Jacquie Garibay DO ?? Date of Service: 08/20/24 ?? Procedure(s): XR pelvis 1-2V ?? Accession Number(s): [id number] ? cc: Jacquie Garibay DO ? EXAMINATION: [...] DD/ 1222 ? TD/TT: 08/20/24 1256 ? Emergency Medical Service Coordinator: ? Procedure Note Donotfabienneter, Image - 08/20/2024 [facility] [address] [place] [address] XRay Report Signed Patient: Harriet ValdezMR#: [id number] : 1970Acct:[id number] Age/Sex: 54 / FADM Date: 08/20/24 Loc: HO.HHCX Attending Dr: Jacquie Garibay DO Ordering Physician: Jacquie Garibay DO Date of Service: 08/20/24 Procedure(s): XR pelvis 1-2V Accession Number(s): [id number] cc: Jacquie Garibay DO EXAMINATION: XR PELVIS [...] 08/20/24 1342 DD/ 1222 TD/TT: 08/20/24 1256 Emergency Medical Service Coordinator: Jacquie Garibay DO IMG XR PROCEDURES Final Resu lt documented in this encounter Visit Diagnoses Diagnosis Left hip pain- Primary Pain in joint, pelvic region and thigh documented in this encounter Additional Health Concerns Assessment Noted Time PHQ-9 Depression Total Score: 3 04/30/20 23 9:17 AM EST documented as of this encounter Care Teams Electrical Project Engineer Relationship Specialty Start Date End Date Emilie Davis MD [address] [place] [address] PCP - General Family Medicine 05/13/18 Morales Echavarria FNP [address] [place] [address] Nurse Practitioner Family Medicine 04/16/[address] [place] [address] Gastroenterology 05/26/24 Fred Castanon [address] [place] [phone] 07/21/24 documented as of this encounter
--- OUTSIDE RECORDS SUMMARY | 2024-08-20 14:52 | XMS_ITS | Encounter Summary ---
Author Organization [employer] [facility] Address [address] [place] [address] [address] [place] [address] Care Team Providers Care Park Guide Name Role Phone Emilie Davis MD Primary Care Provider [phone] Morales Echavarria Unavailable Unavailable August Unavailable Fred Castanon Unavailable Reason for Visit * Reason Comments Med Refill Encounter Details Date Type Department Care Team (Late st Contact Info) Description 01/01/2023 Refill [facility] [address] [place] [address] Emilie Davis MD [address] [place] [address] Social History Tobacco Use Types Packs/Day Years [...] 8:54 AM EDT T/C to patient via laboratory cureman regarding x-ray result. No answer, message left [...] EDT Clinical Support [facility] [address] [place] [address] Medina Lewis, RONALD [address] [place] [address] documented as of this encounter Visit Diagnoses Not on filedocumented in this encounter Additional Health Concerns Assessment Noted Time PHQ-9 Depression Total Score: 19 023 9:24 AM EDT documented as of this encounter Care Teams Park Guide Relationship Specialty Start Date End Date Emilie Davis MD [address] [place] [phone] PCP - General Family Medicine 05/13/18 Morales Echavarria FNP [address] [place] [address] Nurse Practitioner Family Medicine 04/16/23August [address] [place] [address] Gastroenterology 05/26/24 Fred Castanon [address] [place] [address] 07/21/24 documented as of this encounter
== END 2024-08-20 12:23 | disposition home or self-care (01) ==
LOC: HO.HHCX 12:22
PROVIDERS: Visit Provider Family Medicine
DX: M25.552 Pain in left hip (principal)
CPT/HCPCS: 72170

== ENCOUNTER → 2024-08-20 12:22 | Outpatient (BNV) | payer OTHER, SELFPAY | PROVIDERS: Visit Provider Radiology Diagnostic Radiology | DX: M61.452 Other calcification of muscle, left thigh (principal) | CPT/HCPCS: 72170 ==

== ENCOUNTER 2024-09-07 10:08 | Emergency (ER) | payer OTHER, SELFPAY ==
--- NOTE | ~2024-09-07 | CT_ITS ---
EXAMINATION: CT HEAD WITHOUT CONTRAST CLINICAL INFORMATION: headache COMPARISON: July 30, 2018. TECHNIQUE: Contiguous axial imaging was performed from the skull base to vertex without intravenous administration of contrast. This CT examination was performed using dose optimization techniques as appropriate, variously including the following: *Automated exposure control *Adjustment of mA and/or kV according to patient size (this includes techniques or standardized protocols for targeted exams where dose is matched to indication/reason for exam; i.e. extremities or head) *Use of iterative reconstruction technique DLP: 518 mGy-cm FINDINGS: There is a 3 mm low position cerebellar tonsils below foramen magnum. No acute intracranial hemorrhage, mass effect or midline shift. No hydrocephalus. Morin-white matter differentiation is normal. Sellar/suprasellar region demonstrated no gross masses or hemorrhage. No air-fluid levels in the paranasal sinuses. Tympanic cavities and mastoid air cells are aerated. 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
[2024-09-07 10:29] VITALS: BP 136/91; PULSE 52; RESP 18; TEMP 36.8; O2SAT 100; BMI 18.6
[2024-09-07 10:54] LABS: MANUAL DIFF FLAG NO
[2024-09-07 11:03] LABS: Basophils Absolute Auto 0.1 X10*3/uL (0.0-0.2); Basophils Percent Auto 0.8 % (0-2); Eosinophils Absolute Auto 0.1 X10*3/uL (0.0-0.4); Eosinophils Percent Auto 0.9 % (0-4); Hemoglobin 15.1 g/dl (12.0-16.0); Imm Gran Abs Auto 0.03 X10*3/uL (0.00-0.03); Imm Gran Pct Auto 0.3 % (0.0-0.4); Lymphocytes Absolute Auto 3.4 X10*3/uL (1.2-4.9); Lymphocytes Percent Auto 36.7 % (20-40); Mean Corpuscular HGB Conc 33.6 g/dl (31.0-35.0); Mean Corpuscular Hemoglobin 29.8 pg (27.0-33.0); Mean Corpuscular Volume 88.9 fL (80.0-98.0); Monocytes Absolute Auto 0.6 X10*3/uL (0.1-1.2); Monocytes Percent Auto 6.5 % (2-11); Neutrophils Absolute Auto 5.1 x10*3/uL (2.0-8.3); Neutrophils Percent Auto 54.8 % (45-73); Platelet Count 338 X10*3/uL (160-400); Red Blood Count 5.06 X10*6/uL (4.20-5.50); Red Cell Distribution Width 13.6 % (11.0-16.0); White Blood Count 9.3 X10*3/uL (4.8-10.8)
[2024-09-07 11:09] LABS: Anion Gap 14 (12-20); Blood Urea Nitrogen 17 mg/dL (9-16); Calcium 9.7 mg/dL (8.4-10.2); Carbon Dioxide 25 mmol/L (22-29); Chloride 107 mmol/L (96-108); Creatinine Clr Calc Pharmacy 66.6; Estimated Glomerular Filt Rate > 60; Glucose Random 85 mg/dL (60-115); Potassium 4.6 mmol/L (3.3-5.1); Sodium 141 mmol/L (135-145)
[2024-09-07 14:02] VITALS: BP 135/77; PULSE 53; RESP 16; TEMP 36.1; O2SAT 100
--- NOTE | 2024-09-07 14:07 | ED_ITS ---
HPI - General Adult General Chief complaint: Headache Stated complaint: headache, eye pain Time Seen by Provider: 09/07/24 16:06 Source: patient, RN notes reviewed and old records reviewed Mode of arrival: ambulatory History of Present Illness ED Provider: Alyssia Noriega PA-C HPI narrative: 54-year-old female with a past medical history GERD, dysphagia, HLD, depression, arthritis, HTN, presenting to the ED complaining of intermittent headache x 1 month worsening yesterday with associated nausea, vomiting, and blurry vision. States pain mostly behind left eye. Admits symptoms are improved at present. Reports generalized fatigue/weakness. Denies vision loss, CP/SOB, headache being maximal at onset, focal weakness, lightheadedness/dizziness. Took Tylenol at home without relief Related Data Home Medications ?Medication ?Instructions ?Recorded ?Confirmed testosterone cypionate 200 mg/mL 100 mg IM Q2W 12/11/21 07/20/24 intramuscular oil cabotegravir 600 mg/3 mL (200 600 mg IM [id number] 05/26/24 07/20/24 mg/mL) IM suspension,extended release (Apretude) Previous Rx's ?Medication ?Instructions ?Recorded dicyclomine 10 mg capsule 10 mg PO QID #120 caps 05/26/24 mxartphovy-yxxvwzbcsyife-qhutcfwo 1 cap PO Q4-6H PRN headache #10 09/07/24 50 mg-300 mg-40 mg capsule caps (Fioricet) Allergies Allergy/AdvReac Type Severity Reaction Status Date / Time black pepper Allergy Severe Anaphylaxis Verified 09/07/24 10:32 Penicillins [PENICILLINS] Allergy Intermediate HIVES,SWELL Verified 09/07/24 10:32 ING sumatriptan [SUMATRIPTAN] AdvReac Severe PT STATES Verified 09/07/24 10:32 HEART ATTACK Review of Systems 2 Review of Systems: Yes all other systems are reviewed and are negative Constitutional: Constitutional: Reports as per HPI Neurologic: Denies Abnormal speech present [facility] Past Medical History Attestation statement: The following information was validated with the patient. Source: old records reviewed Medical History Chronic GERD Abdominal pain Palpitations Hypotension History of palpitations Dysphagia Disc degeneration, lumbar Spondylosis of lumbar spine Depression Past heart attack Hyperlipemia Erosive osteoarthritis of hands, bilateral Arthritis GERD (gastroesophageal reflux disease) Hypertension Surgical History History of cholecystectomy Hx of colonoscopy History of esophagogastroduodenoscopy (EGD) H/O bilateral mastectomy H/O: hysterectomy Family History Family History Mother Hypertension Breast cancer Maternal Grandmother Myocardial infarct Skin cancer Sister Heart problem Breast cancer Family/Other Esophageal cancer Social History Social History Alcohol intake: never Patient Tobacco Use Status: Former Tobacco user Smoked in Last 30 Days: No Use of substances other than those prescribed or required for medical reasons: Yes Substance Use Type: Marijuana Advance Directives: No Advance Directives Information Provided: No Do you have a plan to hurt others: No Plan Patient : No Physical Exam ED Vital Signs: Vital Signs - 24 hr 09/07/24 10:29 09/07/24 14:02 Temperature 98.2 F 97.0 F Pulse Rate 52 53 Respiratory Rate 18 16 Blood Pressure 136/91 H 135/77 Pulse Oximetry 100 100 Oxygen Delivery Method Room Air Room Air BMI result Body Mass Index 18.6 Const General: cooperative, healthy appearing and no acute distress Orientation/consciousness: patient oriented x3 Limitations: no limitations HENMT Head: Yes normal to inspection and Yes atraumatic Ears: hearing grossly normal bilaterally General nose exam: Normal external nose present Face and sinus: Yes normal facial exam Mouth: Normal oral and palatal mucosa present and no drooling Throat: Yes posterior oropharynx normal, Yes tonsils normal and Yes uvula midline Eyes General: appearance normal, both eyes and all related structures Pupils: Equal, round and reactive pupils present EOM: EOMs intact bilaterally Neck Neck: Yes normal visual inspection and Yes no meningeal signs Resp Effort & Inspection: normal respiratory effort, no respiratory distress and no stridor Auscultation: clear to auscultation bilaterally Cardio Rate: regular rate Heart sounds: S1 normal heart sound present and S2 normal heart sound present GI Inspection: Yes normal to inspection Palpation (GI): Soft to palpation, nontender, no guarding and not rigid Skin Rashes: no rashes Wounds: no wounds Neuro General: patient oriented x3, tone normal, moves all extremities, no meningeal signs, no focal motor deficits and CN's II-XI intact bilaterally Cranial nerves: Yes CN's II-XII intact bilaterally, Yes Equal, round and reactive pupils present and Yes Bilaterally intact EOM present Cognition (Neuro): normal cognition Speech: No Abnormal speech present Gait exam (Neuro): Normal gait present Motor exam (neuro): 5/5 motor strength present throughout, Pronator motor function not present and no tremor noted Coordination: uvihal-hy-hfff test normal Romberg Test: Negative Extrem General: Yes normal to inspection Course Course Course Narrative: RME, this is a rapid medical exam performed by Trevor Uribe please refer to primary provider for complete H&P- 54-year-old biological female presents for evaluation of headache. Patient reports history of migraines, has had a CT scan about 9 years ago. Reports that there headaches have been well controlled but yesterday developed a sudden onset headache with ocular aura. Neurologically intact in triage. 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 Viral testing currently pending however will discharge prior to results, will be contacted if results are positive -1800--viral testing negative Results discussed with patient including worrisome signs and symptoms and strict return precautions, and when to return to the emergency department. They verbalized understanding and feel safe for discharge at this time. Medications Administered Discontinued Medications Generic Name Dose Route Start Last Admin Trade Name Lamineq PRN Reason Stop Dose Admin Acetaminophen/Butalbital/Caffeine 1 tab 09/07/24 16:32 09/07/24 16:49 Butalb/Acetamin/Caff 50/325/40 Tablet PO 09/07/24 16:33 1 tab ONCE ONE Administration Ketorolac Tromethamine 30 mg 09/07/24 16:32 09/07/24 16:50 Ketorolac Tromethamine 30 Mg/Ml Vial IM 09/07/24 16:33 30 mg ONCE ONE Administration Medical Decision Making Medical Decision Making [facility] Narrative: 54-year-old female with a past medical history GERD, dysphagia, HLD, depression, arthritis, HTN, presenting to the ED complaining of intermittent headache x 1 month worsening yesterday with associated nausea, vomiting, and blurry vision. Admits symptoms are improved at present. On exam vital signs stable, NAD, nontoxic appearing, no focal neuro deficits, no ataxia. Concern for migraine headache/cluster headache. Lower suspicion for ICH, SAH, CVA/TIA, meningitis/encephalitis. Unlikely CVT. Plan: Labs, head CT, p.o. Fioricet, IM Toradol, re-evaluate Please refer to course for remaining clinical decision making, interpretation of labs/imaging results, and discussions with consultants and/or family members. Differential Diagnosis Differential Diagnoses: The differential diagnosis associated with the presentation includes As above Admission/Observation Consideration of admission/observation: Escalation of care including admission/observation considered Lab Data MDM Lab Attestation statement: I reviewed the patient's lab results. 09/07/24 10:48 09/07/24 10:48 Labs: Lab Results 09/07/24 09/07/24 Range/Units 10:48 17:17 WBC 9.3 (4.8-10.8) X10*3/uL RBC 5.06 (4.20-5.50) X10*6/uL Hgb 15.1 (12.0-16.0) g/dl Hct 45.0 (37.0-47.0) % MCV 88.9 (80.0-98.0) fL MCH 29.8 (27.0-33.0) pg MCHC 33.6 (31.0-35.0) g/dl RDW 13.6 (11.0-16.0) % Plt Count 338 (160-400) X10*3/uL MPV 9.0 L (9.4-12.3) fL Immature Gran % (Auto) 0.3 (0.0-0.4) % Neut % (Auto) 54.8 (45-73) % Lymph % (Auto) 36.7 (20-40) % [place] % (Auto) 6.5 (2-11) % Eos % (Auto) 0.9 (0-4) % Baso % (Auto) 0.8 (0-2) % Lymph # (Auto) 3.4 (1.2-4.9) X10*3/uL [place] # (Auto) 0.6 (0.1-1.2) X10*3/uL Eos # (Auto) 0.1 (0.0-0.4) X10*3/uL Baso # (Auto) 0.1 (0.0-0.2) X10*3/uL Abs Immat Gran (auto) 0.03 (0.00-0.03) X10*3/uL Absolute Neuts (auto) 5.1 (2.0-8.3) x10*3/uL Absolute Nucleated RBC 0.000 (0.0-0.012) X10*3/uL Nucleated RBC % (auto) 0.0 (0.0-0.2) /100WBC Sodium 141 (135-145) mmol/L Potassium 4.6 (3.3-5.1) mmol/L Chloride 107 (96-108) mmol/L Carbon Dioxide 25 (22-29) mmol/L Anion Gap 14 (12-20) BUN 17 H (9-16) mg/dL Creatinine 0.74 (0.5-1.4) mg/dL Estim Creat Clear Calc 66.6 Estimated GFR > 60 Random Glucose 85 (60-115) mg/dL Calcium 9.7 (8.4-10.2) mg/dL Influenza Type A (PCR) NEGATIVE (Negative) Influenza Type B (PCR) NEGATIVE (Negative) RSV RNA Qual (PCR) NEGATIVE (Negative) SARS-CoV-2 RNA (RT-PCR) NEGATIVE (Negative) Independent Interpretation I performed an independent interpretation of an: CT Scan Radiology Impression Discussion of test interpretation with radiology: I have reviewed the radiologist's reading. External Record Review External record reviewed: Inpatient record, Office record, Outpatient record, Prior outpatient labs, Prior outpatient radiology, Primary care record and Outside ED record Tests considered The following testing was considered but not selected: As above Prescription Management I considered prescription management with: Pain Medication Chronic Conditions Patient?s care impacted by: Other Social Determinants Patient?s care significantly limited by Social Determinants of Health including: Other Social Determinant of Health Discharge Plan Discharge Clinical Impression: Headache Patient Disposition: Home, Self-Care Instructions: Acute Headache (DC) Additional Instructions: Your blood work is reassuring. Your head CT shows low position of your cerebellar tonsils, this can cause chronic headaches. You should follow up with your primary care doctor as well as Neurology. Call Neurology to make an appointment You tested negative for COVID, flu, RSV Fioricet is a combination headache medication, take as needed for headaches. Be aware this has Tylenol mixed in, do not exceed 4 g of Tylenol in 1 day If her headache persists, worsens, you have nausea, vomiting, vision change or loss, numbness, tingling or weakness return to the ED Prescriptions: New vlgvuptvxc-adkcrlnzebzky-cgrz [Fioricet] 50-300-40 mg capsule 1 cap PO Q4-6H PRN (Reason: headache) Qty: 10 0RF No Action testosterone cypionate 200 mg/mL oil 100 mg IM Q2W cabotegravir [Apretude] 600 mg/3 mL (200 mg/mL) suspension,extended release 600 mg IM [id number] dicyclomine 10 mg capsule 10 mg PO QID Qty: 120 3RF Referrals: [facility] [place] Group] - 1 week Emilie Davis MD [Primary Care Provider] - 3 days Print Language: Japanese
[2024-09-07] MEDS: Butalb/Acetamin/Caff 50/325/40 TABLET 1 TAB PO (16:49)
[2024-09-07] MEDS: Ketorolac Tromethamine 30 MG/ML VIAL IM (16:50)
[2024-09-07 17:58] LABS: Influenza A PCR NEGATIVE (Negative); Influenza B PCR NEGATIVE (Negative); Resp Syncy Virus RNA Qual PCR NEGATIVE (Negative); SARS COV2 PCR INHOUSE NEGATIVE (Negative)
[2024-09-07 18:06] VITALS: BP 135/77; PULSE 53; RESP 16; TEMP 36.1; O2SAT 100
--- OUTSIDE RECORDS SUMMARY | 2024-09-07 18:27 | XMS_ITS | Encounter Summary ---
Author Organization [facility] Address [address] [place] [address] 7 [place] [address] Care Team Providers Care Program Counselor Name Role Phone Emilie Davis MD Primary Care Provider +- [phone] Morales Echavarria OFFICE SUPPORT SPECIALIST Unavailable Unavailable August Unavailable Fred Castanon Unavailable Encounter Details Date Type Department Care Team (Late st Contact Info) Description 04/22/2022 Orders Only [facility] [address] [place], [place] [id number] Emilie Davis MD [address] [place], [place] [phone] HSV (herpes simplex virus) anogenital infection (Primary [...] Description 09/22/2024 9:00 AM EDT Clinical Support [facility] [address] [place], [place] [phone] Medina Lewis, RONALD [address] [place] [address] documented as of this encounter Visit Diagnoses Diagnosis HSV (herpes simplex virus) anogenital infection- Primary Herpes simplex without mention of complication documented in this encounter Care Teams Program Counselor Relationship Specialty Start Date End Date Emilie Davis MD [address] [place] [address] PCP - General Family Medicine 05/13/18 Morales Echavarria FNP [address] [place] [address] Nurse Practitioner Family Medicine 04/16/23 Aida Orozco [address] [place] [phone] Gastroenterology 05/26/24 Fred Castanon [address] [place] [phone] 07/21/24 documented as of this encounter
--- OUTSIDE RECORDS SUMMARY | 2024-09-07 18:27 | XMS_ITS | Encounter Summary ---
Author Organization [facility] Address [address] [place] [address] [address] [place] [address] Care Team Providers Care Sql Server Architect Name Role Phone Emilie Davis MD Primary Care Provider +1- [phone] Morales Echavarria HOTEL MAINTENANCE ENGINEER Unavailable Unavailable August Unavailable Fred Castanon Unavailable Reason for Visit * Reason Onset Date Comments Referral 07/18/2022 Encounter Details Date Type Department Care Team (Late st Contact Info) Description 07/18/2022 Telephone [facility] [address] [place] [address] Emilie Davis MD [address] [place] [address] Referral Social History Tobacco Use Types Packs/Day [...] to our [facility]. Please contact pt [phone] documented in this encounter Plan of Treatment Upcoming Encounters Date Type Department Care Team (Late st Contact Info) Description 09/22/2024 9:00 AM EDT Clinical Support [facility] [address] [place] [address] Medina Lewis, RN [address] [place] [address] documented as of this encounter Visit Diagnoses Not on filedocumented in this encounter Care Teams Sql Server Architect Relationship Specialty Start Date End Date Emilie Davis MD [address] [place] [phone] PCP - General Family Medicine 05/13/18 Morales Echavarria FNP [address] [place] [phone] Nurse Practitioner Family Medicine 04/16/23 Aida Orozco [address] [place] [address] [address] [place] [address] Gastroenterology 05/26/24 Fred Castanon [address] [place] [phone] 07/21/24 documented as of this encounter
--- OUTSIDE RECORDS SUMMARY | 2024-09-07 18:27 | XMS_ITS | Encounter Summary ---
Author Organization [facility] [employer] [facility] [facility] Address [address] [facility] [address] [place] [address] Care Team Providers Care Office Specialist Name Role Phone Emilie Davis MD Primary Care Provider +1- [phone] Morales Echavarria TECHNICAL SALES SUPPORT MANAGER Unavailable Unavailable August Unavailable Fred Castanon Unavailable Reason for Visit * Reason Onset Date Comments Referral 07/20/2024 Encounter Details Date Type Department Care Team (Late st Contact Info) Description 07/20/2024 Telephone [facility] [address] [place] [address] Emilie Davis MD [address] [place] [address] Referral Social History Tobacco Use Types Packs/Day [...] Industry Job Start Date Job End Date [employer] Not on file Not on file Not on file documented as of this encounter Miscellaneous Notes * Telephone Encounter - Kishore Pichardo - 07/20/2024 11:03 AM EDT Tc from pt requesting a Apt for Rheumatology due to Hip Pain on the Pts left side. Contact pt at [phone] documented in this encounter Plan of Treatment Upcoming Encounters Date Type Department Care Team (Late st Contact Info) Description 09/22/2024 9:00 AM EDT Clinical Support [facility] [address] [place] [address] Medina Lewis, RONALD [address] [place] [address] documented as of this encounter Visit Diagnoses Not on filedocumented in this encounter Additional Health Concerns Assessment Noted Time PHQ-9 Depression Total Score: 3 04/30/20 23 9:17 AM EST documented as of this encounter Care Teams Office Specialist Relationship Specialty Start Date End Date Emilie Davis MD [address] [place] [address] PCP - General Family Medicine 05/13/18 Morales Echavarria FNP [address] [place] [address] Nurse Practitioner Family Medicine 04/16/23 Aida Orozco [address] [address] Gastroenterology 05/26/24 Fred Castanon [address] [place] [id number] 07/21/24 documented as of this encounter
--- OUTSIDE RECORDS SUMMARY | 2024-09-07 18:27 | XMS_ITS | Clinical Summary ---
Author Organization [employer] Address [address] [address] [place] [address] Care Team Providers Care Sack Cleaner Name Role Phone BethelEmilie moreira MD Primary Care Provider [phone] Morales Echavarria Unavailable Unavailable August Unavailable Fred Castanon Unavailable Allergies Active Allergy Reactions Criticality Noted Date Comments Penicillins Anaphylaxis,Rash High 05/16/2017 Sumatriptan 10/28/2018 Medications * This document contains information received from the source organization and may not represent a complete record from that organization. Needle, Disp, (BD Disp Chloride) 25G X 5/8 miscIndication s:Gender dysphoria in [...] INTRAMUSCULARLY EVERY 2 WEEKS 2 mL 2 025 Active testosterone cypionate (Depo-Testoste avi) 200 MG/ML injectionIndic ations:Gender dysphoria INJECT 0.5 ML INTRAMUSCULARLY EVERY 2 WEEKS 4 mL 2 025 2024 Discontinued(R eorder (will not trigger notification to Pharmacy)) testosterone cypionate (Depo-Testoste avi) 200 MG/ML injectionIndic ations:Gender dysphoria INJECT 0.5 ML INTRAMUSCULARLY EVERY 2 WEEKS 1 mL 2 025 2024 Discontinued Active Problems Problem Noted [...] XR 05/20/24 Coronary artery disease invo lving [facility] without angina pectoris 05/20/2024 Acquired syphilis 03/23/2024 Overview (03/23/2024): Lab Results Component Value Date SYPHILISSCRE Reactive (A) 03/18/2024 TREPPALAB Reactive (A) 03/18/2024 RPRQUANT Non-Reactive 03/18/2024 -will call [facility] regarding need for testing 03/23/24 -pt allergic [...] care facilitated by Aless[facility]. -dental home is [facility] -health care proxy filed 03/16/24 Assessment & Plan (03/17/2024 6:12 AM EST): -next physical exam due after 03/16/2025 -eye care facilitated by Alessio. -dental home is [facility] -health care proxy filed 03/16/24 Assessment & Plan (03/22/2023 9:17 AM EST): -next physical exam due after 12/07/2023. -eye care facilitated by [facility]. -dental home is outside of [facility] Assessment & Plan (12/06/2022 10:19 AM EDT): -next physical exam dueafter 12/07/2023. -eye care facilitated by [facility]. -dental home is outside of [facility] Hx of hepatitis C 11/26/2022 [...] rays suggests osteoarthritis. Seen by rheumatology in [place]. Ibuprofen and NSAIDs cause gastritis. Minimal relief with acetaminophen. He was referred back to rheumatology in [place] 08/23/2020 but provider left the area. started on Tramadol. Take 3 times per week. He is not taking at this time. Assessment & Plan (03/17/2024 6:08 AM EST): X rays suggests osteoarthritis. Seen by rheumatology in [place]. Ibuprofen and NSAIDs cause gastritis. Minimal relief with acetaminophen. He was referred back to rheumatology in [place] 08/23/2020 but provider left the area. started on Tramadol. Take 3 times per week. He is not taking at this time. Assessment & Plan (03/22/2023 9:15 AM EST): X rays suggests osteoarthritis. Seen by rheumatology in [place]. Ibuprofen and NSAIDs cause gastritis. Minimal relief with acetaminophen. He was referred back to rheumatology in [place] 08/23/2020 but provider left the area. started on Tramadol. Take 3 times per week. Will need COT in the future. Assessment & Plan (12/06/2022 8:54 AM EDT): X rays suggests osteoarthritis. Seen by rheumatology in [place]. Ibuprofen and NSAIDs cause gastritis. Minimal relief with acetaminophen. He was referred back to rheumatology in [place] 08/23/2020 but provider left the area. started on Tramadol. Take 3 times per week. Will need COT in the future. Assessment & Plan (10/11/2022 9:58 AM EDT): X rays suggests osteoarthritis. Seen by rheumatology in [place]. Ibuprofen and NSAIDs cause gastritis. Minimal relief with acetaminophen. He was referred back to rheumatology in [place] 08/23/2020 but provider left the area. started [...] Now with palpitations. Will refer to his gold stamper for bradycardia. Assessment & Plan (03/22/2023 9:16 AM EST): Sinus bradycardia and asymptomatic. Pt states he always has slow heart rate Pt repots heart rate in 40s recorded with home BP monitor with symptoms of dizziness recorded at home. Now with palpitations. Will refer to his gold stamper for bradycardia. Assessment & Plan (12/06/2022 8:54 AM EDT): Sinus bradycardia and asymptomatic. Pt states he always has slow heart rate Pt repots heart rate in 40s recorded with home BP monitor with symptoms of dizziness recorded at home. Now with palpitations. Will refer to his gold stamper for bradycardia. Assessment & Plan (10/11/2022 9:58 AM EDT): Sinus bradycardia and asymptomatic. Pt states he always has slow heart rate Pt repots heart rate in 40s recorded with home BP monitor with symptoms of dizziness recorded at home. Now with palpitations. Will refer to his gold stamper for bradycardia. Generalized abdominal pain 06/25/2021 Overview [...] for GI. Insurance no longer accepted at [facility]. -EGD scheduled for December 2021. Assessment [...] for GI. Insurance no longer accepted at [facility]. -EGD scheduled for December 2021. Assessment [...] for GI. Insurance no longer accepted at [facility]. -EGD scheduled for December 2021. Assessment [...] for GI. Insurance no longer accepted at [facility]. -EGD scheduled for December 2021. Assessment [...] for GI. Insurance no longer accepted at [facility]. -EGD scheduled for December 2021. History of non-ST elevation myocardial infarctio n (NSTEMI) 06/25/2021 Overview (07/21/2024): Hx NSTE RI 09/2017 -continue oscar -Stress test without evidence [...] Plan (05/20/2024 4:29 PM EST): Hx NSTE RI 09/2017 -continue oscar -Stress test without evidence of ischemia 04/08/18 -he held statin and ASA due to GI upset -trial of restarting statin 01/[address] on 05/08/24 showed Coronary artery atherosclerosis. Pt wants to get reestablished with cardiology. -referral sent 05/20/24 Assessment & Plan (03/22/2023 9:17 AM EST): Hx NSTE RI 09/2017 -continue oscar -Stress test without evidence of ischemia 04/08/18 -he held statin and ASA due to GI upset -trial of restarting statin 01/2019 Assessment & Plan (12/06/2022 8:55 AM EDT): Hx NSTE RI 09/2017 -continue oscar -Stress test without evidence of ischemia 04/08/18 -he held statin and ASA due to GI upset -trial of restarting statin 01/2019 Assessment & Plan (10/11/2022 9:57 AM EDT): Hx NSTE RI 09/2017 -continue oscar -Stress test without evidence of ischemia 04/08/18 -he held statin and ASA due to GI upset -trial of restarting statin 01/2019 Seasonal allergies 06/25/2021 Gender 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 10/03/2018 Overview (03/26/2024): Pt identifies as male and is changed his name in [place] October 2020. -He restarted testosterone 08/2020 -S/p chest reconstruction 10/2018 -Testosterone was 654 on 10/2022 Lab Results Component Value Date TESTTOTAL 1641 (A) 03/18/2024 HGB 16.2 (H) 03/18/2024 HGB 15.8 10/18/2022 HCT 47.3 (H) 03/18/2024 Goal testosterone levels 350-700ng/dl. Assessment & Plan (03/17/2024 6:12 AM EST): Pt identifies as male and is changing his name in [place] October 2020. He restarted testosterone 08/2020 S/p chest reconstruction 10/2018 Pt would like to switch small needle to subcutaneous instead. 25 gague needles sent 12/06/2022 Testosterone was 654 on 10/2022. Assessment & Plan (03/22/2023 9:16 AM EST): Pt identifies as male and is changing his name in [place] October 2020. He restarted testosterone 08/2020 S/p chest reconstruction 10/2018 Pt would like to switch small needle to subcutaneous instead. 25 gague needles sent 12/06/2022 Testosterone was 654 on 10/2022. Assessment & Plan (12/06/2022 11:18 AM EDT): Pt identifies as male and is changing his name in [place] October 2020. He restarted testosterone 08/2020 S/p chest reconstruction 10/2018 Pt would like to switch small needle to subcutaneous instead. 25 gague needles sent 12/06/2022 Testosterone was 654 on 10/2022. Assessment & Plan (10/11/2022 9:59 AM EDT): Pt identifies as male and is changing his name in [place] October 2020. He restarted testosterone 08/2020 S/p chest reconstruction 10/[address] scan, lung 10/04/2017 Overview (05/20/2024): -Ct scan in [facility] on 12/25/2017 showed multiple indeterminate nodules, [...] 11/15/23 and NO SHOW. Pt can call [phone] to schedule mariely. number given to call 03/16/24 -CT 05/08/24 No acute intrathoracic findings. Calcified granulomas present bilaterally. No suspicious pulmonary nodule identified. Air-fluid level present within the midthoracic esophagus can be associated with gastroesophageal reflux disease and esophageal dysmotility. Coronary artery atherosclerosis. Assessment & Plan (05/20/2024 4:05 PM EST): -Ct scan in [place] ER on 12/25/2017 showed multiple indeterminate nodules, [...] 11/15/23 and NO SHOW. Pt can call [phone] to schedule mariely. number given to call 03/16/24 -CT 05/08/24 No acute intrathoracic findings. Calcified granulomas present bilaterally. No suspicious pulmonary nodule identified. Air-fluid level present within the midthoracic esophagus can be associated with gastroesophageal reflux disease and esophageal dysmotility. Coronary artery atherosclerosis. Assessment & Plan (03/17/2024 6:13 AM EST): -Ct scan in [place] ER on 12/25/2017 showed multiple indeterminate nodules, [...] 11/15/23 and NO SHOW. Pt can call [phone] to schedule mariely. number given to call 03/16/24 Assessment & Plan (03/22/2023 9:16 AM EST): -Ct scan in [place] ER on 12/25/2017 showed multiple indeterminate nodules, largest was solid and measured 2mm. -Given that the Pt has a tobacco Hx and quit in 2018 we referrred to pulmonology that was likely distrupted by the pandemic. -Will ordered repeat CT of chest to follow the nodles. Assessment & Plan (12/06/2022 10:18 AM EDT): -Ct scan in [place] ER on 12/25/2017 showed multiple indeterminate nodules, [...] & Plan (10/11/2022 11:32 AM EDT): Assessment: Hiramarielleaparna was engaged with active reflective listening and [...] OP services and referral to [facility] Psychopharmacology clinic. Provided Crisis contact [...] treatment engagement. PLAN: 1. Follow up with [facility]: Not recommended for follow-up 2. Patient goal is to learn coping mechanisms to manage sxs. 3. Behavioral Recommendations a. Ind. Therapy and Medication Management b. Continue using coping skills c. [facility] support as needed. Mild major depression 06/25/20212023 Encounters Date Type Department Care Team Description 09/07/2024 Orders Only GENERIC EXTERNAL DATA DEPARTMENT Provider, Generic External Data 09/07/2024 Telephone [facility] WALK-IN [address] [address] Mike Longo MD 09/02/[address] [address] Emilie Davis MD Gender dysphoria 09/01/2024 Orders Only [address] [address] Emilei Davis MD Gender dysphoria 08/24/[address] [address] Jacquie Garibay DO Results 08/20/2024 11:20 AM EDT Office Visit [facility] WALK-IN [address] [address] Left hip pain (Primary Dx) 08/20/[address] [address] Emilie Davis MD Results 08/04/[address] [address] Nahun Dyer MD 07/24/2024 1:00 PM EDT Clinical Support [address] [address] Medina Lewis, RN On pre-exposure prophylaxis for HIV (Primary Dx) 07/24/2024 Orders Only GENERIC EXTERNAL DATA DEPARTMENT Provider, Generic External Data 07/24/2024 Travel 07/20/2024 Orders Only [facility] MED[facility]INE [address] [facility] [facility] [place] [address] Emilie Davis MD Left hip pain (Primary Dx) 07/20/2024 Telephone [facility] MEDICINE [address] [facility] [place] [address] Emilie Davis MD Referral 07/16/2024 Telephone [facility] MEDICINE [address] [place] [address] Medina Lewis, RONALD 07/13/2024 Telephone [facility] MEDICINE [address] [place] [address] Mednia Lewis, RONALD 07/10/2024 Refill [facility] MEDICINE [address] [place] [address] Bijal Irene RN Gender dysphoria 07/08/2024 Refill [facility] MEDICINE [address] [place] [address] Emilie Davis MD 07/08/2024 Orders Only [facility] MEDICINE [address] [facility] [facility] [place] [address] Emilie Davis MD 07/02/2024 Telephone [facility] MEDICINE [address] [place] [address] Medina Lewis, RONALD 06/30/2024 Telephone [facility] MEDICINE [address] [place] [address] Emilie Davis MD May recalls from Last 3 Months Immunizations Name Administration [...] Industry Job Start Date Job End Date [employer] Not on file Not on file [...] 9:00 AM EDT Clinical Support [facility] MEDICINE [address] [place] [address] Medina Lewis, RN [address] [place] [address] Health Maintenance Due Date Last Done Comments [...] Procedure Name Priority Date/Time Associated Diagnosis Comments SARS COV2/INFLUENZA A/B AND RSV RNA QL NAAT Routine 09/07/2024 5:[address] HEAD WO CONTRAST Routine 09/07/2024 3 :43 PM EDT XR PELVIS 1-2 VIEWS Routine 08/20/2024 1 2:22 PM EDT Left hip pain POCT RAPID HIV SCREENING Routine 07/24/2024 2:17 PM EDT On pre-exposure prophylaxis for HIV CONFIRMATORY SYPHILIS PROFILE Routine 07/24/2024 1:36 PM EDT HIV 1 RNA, QUANTITATIVE REAL TIME PCR Routine 07/24/2024 1:36 PM EDT SYPHILIS SCREEN Routine 07/24/2024 1:36 PM EDT LIPID PANEL, STANDARD Routine 07/24/2024 1:36 PM EDT HPV MRNA E6/E7 REFLEX TO HPV 16, 18/45 Routine 03/22/2023 11:30 AM EST PAP SMEAR Routine 03/22/2023 11:30 AM EST HM COLONOSCOPY Routine 01/30/2018 from Last 3 Months or Most Recently Relevant to Health Maintenance Results * SARS-CoV-2 RNA, Influenza A/B, and RSV RNA, Ql NAAT (09/07/2024 5:17 PM EDT) Influenza A PCR NEGATIVE Negative [facility] Influenza B PCR NEGATIVE Negative [facility] Resp Syncy Virus RNA Qual PCR NEGATIVE Negative [facility] SARS COV2 PCR NEGATIVE Negative [facility] Comment:All test results mus t be correlated with clinical findings.Negative results do not preclude SARS-CoV2, influenza Avirus, influenza B virus and/or RSV infectionand should not be used as the sole basis for treatment orother patient management decisions. Negative results must becombined with clinical observations, patient history, andepidemiological information.This test has not been evaluated for monitoring treatment ofinfection.This test has been authorized by the FDA under an EmergencyUse Authorization (EUA) for use by authorized laboratories.Testing performed on the [employer] GeneXpert utilizingreal-time RT-PCR.All SARS CoV2 and positive influenza A/B results arereported to [facility]. 09/07/2024 5:17 PM EDT 09/07/2024 5:20 PM EDT us Generic External Data Provider LAB MICROBIOLOGY - GENERAL ORDERABLES Final Result [facility] [address] [place] [phone] * CT Head w/o Contrast (09/07/2024 3:43 PM EDT) Anatomical Region Laterality Modality Head, Neck Computed Tomogra phy 09/07/2024 3:43 PM EDT Narrative 09/07/2024 4:06 PM EDT ? [facility] ?[address] ?[place] [address] ? CT Scan Report ? Signed ? Patient: Harriet Valdez ?MR#: [id number] ?? [id number] ? : 1970 ?Acct:[id number] ? Age/Sex: 54 / F ?ADM Date: 09/07/24 ? Loc: HO.ED ? Attending Dr: ? Ordering Physician: Surendra Uribe ?? Date of Service: 09/07/24 ?? Procedure(s): CT head/brain wo IV con ?? Accession Number(s): [id number] ? cc: Emilie Davis MD; Surendra Uribe ? Report Number: ?? [id number]: Total DLP = ??518.00 mGy-cm ?? EXAMINATION: ?? CT HEAD WITHOUT CONTRAST ? CLINICAL INFORMATION: ?? headache ? COMPARISON: ?? July 30, 2018. ? TECHNIQUE: ?? Contiguous axial imaging was performed from the skull base to vertex ?? without intravenous administration of contrast. ? This CT examination was performed using dose optimization techniques as ?? appropriate, variously including the following: ?? *Automated exposure control ?? *Adjustment of mA and/or kV according to patient size (this includes ?? techniques or standardized protocols for targeted exams where dose is ?? matched to indication/reason for exam; i.e. extremities or head) ?? *Use of iterative reconstruction technique ? DLP: ?? 518 mGy-cm ? FINDINGS: ?? There is a 3 mm low position cerebellar tonsils below foramen magnum. ?? No acute intracranial hemorrhage, mass effect or midline shift. No ?? hydrocephalus. ?? Morin-white matter differentiation is normal. ?? Sellar/suprasellar region demonstrated no gross masses or hemorrhage. ?? No air-fluid levels in the paranasal sinuses. Tympanic cavities and ?? mastoid air cells are aerated. ? CT/CT head/brain wo IV con ?? IMPRESSION: ?? 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 Electronically signed by: ??Eric Daley MD ??09/07/2024 04:03 PM ?? EDT RP ? Dictated By: ?Eric Maki MD ? Signed By: ?<Electronically signed by Eric Irene MD in OV> ? 09/07/24 1603 ? DD/ 1543 ? TD/TT: 09/07/24 1557 ? Dredge Pump Operator: ? Procedure Note Helen, Harvinder - 09/07/[address] [place] [address] [address] Scan Report Signed Patient: Harriet ValdezMR#: [id number] : 1970Acct:[id number] Age/Sex: 54 / FADM Date: 09/07/24 Loc: HO.ED Attending Dr: Ordering Physician: Surendra Uribe Date of Service: 09/07/24 Procedure(s): CT head/brain wo IV con Accession Number(s): [id number] cc: Emilie Davis MD; Surendra Uribe Report Number: [id number]: Total DLP = 518.00 mGy-cm EXAMINATION: CT HEAD WITHOUT CONTRAST CLINICAL INFORMATION: headache COMPARISON: July 30, 2018. TECHNIQUE: Contiguous axial imaging was performed from the skull base to vertex without intravenous administration of contrast. This CT examination was performed using dose optimization techniques as appropriate, variously including the following: *Automated exposure control *Adjustment of mA and/or kV according to patient size (this includes techniques or standardized protocols for targeted exams where dose is matched to indication/reason for exam; i.e. extremities or head) *Use of iterative reconstruction technique DLP: 518 mGy-cm FINDINGS: There is a 3 mm low position cerebellar tonsils below foramen magnum. No acute intracranial hemorrhage, mass effect or midline shift. No hydrocephalus. Morin-white matter differentiation is normal. Sellar/suprasellar region demonstrated no gross masses or hemorrhage. No air-fluid levels in the paranasal sinuses. Tympanic cavities and mastoid air cells are aerated. 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 ?[place] [address] ?XRay Report ? Signed ? Patient: Harriet Valdez ?MR#: [id number] ?? [id number] ? : 1970 ?Acct:[id number] ? Age/Sex: 54 / F ?ADM Date: 08/20/24 ? Loc: HO.HHCX ? Attending Dr: Jacquie Garibay DO ? Ordering Physician: Jacquie Garibay DO ?? Date of Service: 08/20/24 ?? Procedure(s): XR pelvis 1-2V ?? Accession Number(s): [id number] ? cc: Jacquie Garibay Dakota DO ? EXAMINATION: ?? XR PELVIS ? [...] DD/ 1222 ? TD/TT: 08/20/24 1256 ? Dredge Pump Operator: ? Procedure Note Donwillardter, Image - 08/20/[address] [address] XRay Report Signed Patient: Harriet ValdezMR#: [id number] : 1970Acct:[id number] Age/Sex: 54 / FADM Date: 08/20/24 Loc: HO.HHCX Attending Dr: Jacquie Garibay DO Ordering Physician: Jacquie Garibay DO Date of Service: 08/20/24 Procedure(s): XR pelvis 1-2V Accession Number(s): [id number] cc: Jacquie Garibay DO EXAMINATION: XR PELVIS [...] Micah Hastings MD 08/20/2024 01:42 PM EDT RP Dictated By: Micah Hastings MD Signed By: <Electronically signed by Micah Hastings MD in OV> 08/20/24 1342 DD/ 1222 TD/TT: 08/20/24 1256 Dredge Pump Operator: Jacquie Garibay DO IMG XR PROCEDURES Final Resu lt * POCT RAPID HIV SCREENING (07/24/2024 2:17 PM EDT) Blood 07/24/2024 2:17 PM EDT Narrative Medina Lewis RN - 07/24/2024 2:17 PM EDT negative Nahun Dyer MD POINT OF CARE TEST ENTER/EDIT ORDERABLES Final Result * (ABNORMAL) Confirmatory Syphilis Profile (07/24/2024 1:36 PM EDT) Pathologist [facility] Rapid Plasma Reagin, Quant Non-React jovanny Nonreactive [facility] Treponema pallidum Antibody, Particle Agglutination Reactive( A) Nonreactive [facility] Comment:These results must b e reported by the ordering clinician orclinical facility to the [facility] required by state law.Testing performed at: [address] [address] 07/24/2024 1:36 PM EDT 07/25/2024 4:05 AM EDT Nahun Dyer MD LAB BLOOD ORDERABLES Final Res ult [facility] [address] [place] [phone] * (ABNORMAL) Syphilis Screen (07/24/2024 1:36 PM EDT) Syphilis Screen Reactive( A) Nonreactive [facility] Comment:Reactive specimens a re sent to the [facility] tests. 07/24/2024 1:36 PM EDT 07/24/2024 4:20 PM EDT Nahun Dyer MD LAB BLOOD ORDERABLES Final Res ult Performing Organization Address [facility]/ZIP Co de Phone Number [facility] [address] [place] [phone] * HIV-1 RNA, Quantitative, Real-Time PCR (07/24/2024 1:36 PM EDT) HIV RNA PCR Qn Copies NOT DETECTED NOT DETECTED copies/mL [facility] HIV RNA PCR Qn Log Copies NOT DETECTED NOT DETECTED [facility] Comment:Result Units: Log co pies/mLThis test was performed using Real-Time Polymerase ChainReaction.Reportable Range: 20 copies/mL to 10,000,000 copies/mL(1.30 log copies/mL to 7.00 log copies/mL).THIS TEST WAS PERFORMED AT:[facility] [place] [phone] MALDONADO MD 07/24/2024 1:36 PM EDT 07/24/2024 4:20 PM EDT Nahun Dyer MD LAB BLOOD ORDERABLES Final Res ult Performing Organization Address [facility] Co de Phone Number [facility] [address] [place] [phone] * (ABNORMAL) Lipid Panel, Standard (07/24/2024 1:36 PM EDT) Triglycerides 141 <150 mg/dL [facility] Comment:Desirable Triglyceri de: less than 150 mg/dLBorderline High Triglyceride 150-199 mg/dLHigh Triglyceride: 200-499 mg/dLVery High Triglyceride: greater than or equal to 5OO mg/dL Cholesterol 205(H) <200 mg/dL [facility] Comment:Desirable Cholestero l: less than 200 mg/dLBorderline High Cholesterol: 200-239 mg/dLHigh Cholesterol: greater than 239 mg/dL LDL Cholesterol Calculated 114(H) <100 mg/dL [facility] Comment:Desirable LDL: less than 100 mg/dLNear Optimal/Above Optimal LDL: 110- 129 mg/dLBorderline High LDL: 130-159 mg/dLHigh LDL: 160-189 mg/dLVery High LDL: greater than or equal to 190 mg/dL HDL Cholesterol 63 >40 mg/dL [facility] Comment:Desirable HDL: great er than 40 mg/dL Note: This HDL assay may give artificially low results in patients with liver disease. 07/24/2024 1:36 PM EDT 07/24/2024 4:20 PM EDT us Generic External Data Provider LAB BLOOD ORDERAB LES Final Result [facility] [address] [place] [phone] * HPV mRNA E6/E7 w/Reflex to HPV Genotypes 16, 18/45 (03/22/2023 11:30 AM EST) HPV nRNA E6/E7 Not Detected Not Detected [facility] Comment:Methodology: Transcr iption-Mediated AmplificationThis assay detects E6/E7 viral messenger RNA (mRNA) from 14high-risk HPV types (16,18,31,33,35,39,45,51,52,56,58,59,66,68).Cervical sources are required for HPV testing.If a vaginal source from a patient who has had atotal hysterectomy with removal of cervix wassubmitted, please contact the testing laboratoryfor alternative testing options.For additional information, please refer tohttp://education.[employer]/faq/DLK408l3(This link if provided for information/educational purposes only.)THIS TEST WAS PERFORMED AT:[facility] [place] [phone] MALDONADO MD HPV mRNA E6/E7 [facility] HPV 16 RNA [facility] HPV 18/45 RNA TNP [facility] 03/22/2023 11:3 0 AM EST 03/25/2023 12:20 PM EST us Emilie Davis MD LAB CYTOLOGY ORDERABLES Fi nal Result [facility] [address] [place] [address] [phone] * Pap Smear (03/22/2023 11:30 AM EST) 03/22/2023 11:3 0 AM EST 03/25/2023 12:20 PM EST Narrative [facility] - 04/11/2023 11:26 AM EST ----- ------- Name: Harriet Valdez ?Age/Sex: 53/F ? : 1970 Unit#: [id number] ?? Attend Dr: RADHA VILLAREAL ?Re03/22/23 ?Status: DEP REF ? Location: HO.HHCLNP ? Disch: ? ----- ------- SPEC : [id number] ?RECD: 03/25/230 ? STATUS: ??SOUT ? REQ NUM: [id number] ? AMBREEN: 03/22/23 ? SUBM DR: Emilie [...] 66, 68) ?? HPV testing performed by [facility], [place], [place]. ??See reference laboratory ?? portion of the EMR for entire report. ?Clinical Information LMP: Unknown date Previous PAP test: Unknown date, WNL Other history: Pt on testosterone, surgical post menopause ? Material Received ?? ThinPrep-Cervical ----- ------- Signed (signature on file) SERENA Alejandro ([facility]) 04/11/23 1126 ? ----- ------- ? END OF REPORT ? Emilie Davis MD LAB CYTOLOGY ORDERABLES Fi nal Result [facility] [address] [place] [phone] * Colonoscopy (01/30/2018) Colonoscopy normal Historical Provider HEALTH MAINTENANCE Final Result from Last 3 Months or Most Recently Relevant to Health Maintenance Insurance [facility] [employer] * Guarantor: Harriet Valdez Account Type Relation to Patient Date of Phone Billing Address Personal/Family Self Rani [address] [place] [address] * Guarantor: Harriet Valdez Account Type Relation to Patient Date of Phone Billing Address Personal/Family Self Rani [address] [place] [address] * Guarantor: Harriet Valdez Account Type Relation to Patient Date of Phone Billing Address Personal/Family Self Rani [address] [place] [address] Advance Directives Documents on File Type Date Recorded 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
--- OUTSIDE RECORDS SUMMARY | 2024-09-07 18:27 | XMS_ITS | Encounter Summary ---
Author Organization [employer] [facility] Address [address] [place] [address] 7 [place] [address] Care Team Providers Care Ct Mri Technologist Name Role Phone Emilie Davis MD Primary Care Provider +1- [phone] Morales Echavarria Unavailable Unavailable August Unavailable Fred Castanon Unavailable Reason for Visit * Reason Comments Med Refill Encounter Details Date Type Department Care Team (Late st Contact Info) Description 01/01/2023 Refill [facility] [address] [place] [address] Emilie Davis MD [address] [place] [address] Social History Tobacco Use Types Packs/Day Years [...] 8:54 AM EDT T/C to patient via science interpreter regarding x-ray result. No answer, message left [...] Description 09/22/2024 9:00 AM EDT Clinical Support [facility] [address] [place] [address] Medina Lewis, RONALD [address] [place] [address] documented as of this encounter Visit Diagnoses Not on filedocumented in this encounter Additional Health Concerns Assessment Noted Time PHQ-9 Depression Total Score: 19 023 9:24 AM EDT documented as of this encounter Care Teams Ct Mri Technologist Relationship Specialty Start Date End Date Emilie Davis MD [address] [place] [address] PCP - General Family Medicine 05/13/18 Morales Echavarria FNP [address] [place] [address] Nurse Practitioner Family Medicine 04/16/23August [address] [place] [address] Gastroenterology 05/26/24 Fred Castanon [address] [place] [address] 07/21/24 documented as of this encounter
--- OUTSIDE RECORDS SUMMARY | 2024-09-07 18:27 | XMS_ITS | Encounter Summary ---
Author Organization [employer] Address 75 [facility] 7t [place] [address] Care Team Providers Care Explosive Operator Bomb Name Role Phone Emilie Davis MD Primary Care Provider +1- [phone] Morales Echavarria Unavailable Unavailable August Unavailable Fred Castanon Unavailable Reason for Visit * Reason Comments Med Refill Encounter Details Date Type Department Care Team ([facility] st Contact Info) Description 01/17/2024 Refill [facility] 230 [place] [address] Emilie Davis MD 230 [place], [place] [phone] 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) Social [...] Clinical Support [facility] 230 [place] [address] Medina Lewis RN 230 [place] [address] documented as of this encounter Visit Diagnoses Diagnosis Gender 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- Primary documented in this encounter Additional Health Concerns Assessment Noted Time PHQ-9 Depression Total Score: 3 04/30/20 23 9:17 AM EST documented as of this encounter Care Teams Explosive Operator Bomb Relationship Specialty Start Date End Date Emilie Davis MD [address] [place] [address] PCP - General Family Medicine 05/13/18 Morales Echavarria FNP [address] [place] [address] Nurse Practitioner Family Medicine 04/16/23August [address] [address] Gastroenterology 05/26/24 Fred Castanon [address] [place] [address] 07/21/24 documented as of this encounter
--- OUTSIDE RECORDS SUMMARY | 2024-09-07 18:27 | XMS_ITS | Encounter Summary ---
Author Organization [employer] [facility] Address [address] [place] [address] 7 [place] [address] Care Team Providers Care Bakery Demonstrator Name Role Phone Emilie Davis MD Primary Care Provider +1- [phone] Morales Echavarria LIFE SKILLS TEACHER Unavailable Unavailable August Unavailable Fred Castanon Unavailable Encounter Details Date Type Department Care Team (Late st Contact Info) Description 05/27/2022 Abstract [facility] MEDICINE [address] [place] [address] Emilie Davis MD [address] [place] [address] [phone] Social History Tobacco Use Types Packs/Day Years [...] 9:00 AM EDT Clinical Support [facility] MEDICINE [address] [place] [address] Medina Lewis, RONALD [address] [place] [address] documented as of this encounter Procedures Procedure [...] ORDERABLES F inal Result Performing Organization Address [facility]/ZIP Co de Phone Number [facility] [address] [place] [address] [phone] documented in this encounter Visit Diagnoses Not on filedocumented in this encounter Care Teams Bakery Demonstrator Relationship Specialty Start Date End Date Emilie Davis MD 230 [place] [address] PCP - General Family Medicine 05/13/18 Morales Echavarria FNP [address] [place] [address] Nurse Practitioner Family Medicine 04/16/[address] [place] [address] Gastroenterology 05/26/24 Fred Castanon [address] [place] [address] 07/21/24 documented as of this encounter
--- OUTSIDE RECORDS SUMMARY | 2024-09-07 18:27 | XMS_ITS | Encounter Summary ---
Author Organization [employer] [facility] Address 75 [facility] 7t [place] [address] Care Team Providers Care Martial Arts Instructor Name Role Phone Emilie Davis MD Primary Care Provider +1- [phone] Morales Echavarria ELECTRICIAN CONSTRUCTOR SUPERVISOR Unavailable Unavailable August Unavailable Fred Castanon Unavailable Reason for Visit * Reason Onset Date Comments Med Refill 04/22/2024 Encounter Details Date Type Department Care Team (Late st Contact Info) Description 04/22/2024 Telephone [facility] MEDICINE [address] [place] [address] Emilie Davis MD 230 [place] [address] Med Refill Social History Tobacco Use Types [...] 200 MG/5ML suspension To be sent to: [facility] [place], [place] - [address] [facility] documented in this encounter Plan of Treatment Upcoming Encounters Date Type Department Care Team ([facility] st Contact Info) Description 09/22/2024 9:00 AM EDT Clinical Support [facility] MEDICINE [address] [place] [address] Medina Lewis, RONALD [address] [place] [address] documented as of this encounter Visit Diagnoses Not on filedocumented in this encounter Additional Health Concerns Assessment Noted Time PHQ-9 Depression Total Score: 3 04/30/20 23 9:17 AM EST documented as of this encounter Care Teams Martial Arts Instructor Relationship Specialty Start Date End Date Emilie Davis MD [address] [place] [address] PCP - General Family Medicine 05/13/18 Morales Echavarria FNP [address] [place] [address] Nurse Practitioner Family Medicine 04/16/23 Pam Aida [address] [address] Gastroenterology 05/26/24 Fred Castanon [address] [address] 07/21/24 documented as of this encounter
--- OUTSIDE RECORDS SUMMARY | 2024-09-07 18:27 | XMS_ITS | Encounter Summary ---
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 Not on file Not on file documented as of this encounter Plan of Treatment Upcoming Encounters Date Type Department Care Team (Late st Contact Info) Description 09/22/2024 9:00 AM EDT Clinical Support [facility] MEDICINE 230 [place] [address] Medina Lewis, RN 230 [place] [address] documented as of this encounter Procedures Procedure Name Priority Date/Time Associated Diagnosis Comments SARS COV2/INFLUENZA A/B AND RSV RNA QL NAAT Routine 09/07/2024 5:17 PM EDT documented in this encounter Results * SARS-CoV-2 RNA, Influenza A/B, and RSV RNA, Ql NAAT (09/07/2024 5:17 PM EDT) Influenza A PCR NEGATIVE Negative [facility] Influenza B PCR NEGATIVE Negative [facility] Resp Syncy Virus RNA Qual PCR NEGATIVE Negative [facility] SARS COV2 PCR NEGATIVE Negative [facility] Comment:All test results mus t [...] use by authorized laboratories.Testing performed on the [employer] GeneXpert utilizingreal-time RT-PCR.All SARS CoV2 and positive influenza A/B results arereported to [facility]. 09/07/2024 5:17 PM EDT 09/07/2024 5:20 PM EDT us Generic External Data Provider LAB MICROBIOLOGY - GENERAL ORDERABLES Final Result [facility] [address] [place] [address] [phone] documented in this encounter Visit Diagnoses Not on filedocumented in this encounter Additional Health Concerns Assessment Noted Time PHQ-9 Depression Total Score: 3 04/30/20 23 9:17 AM EST documented as of this encounter Care Teams Liner Reroll Tender Relationship Specialty Start Date End Date Emilie Davis MD [address] [place] [address] PCP - General Family Medicine 05/13/18 Morales Echavarria FNP [address] [place] [address] Nurse Practitioner Family Medicine 04/16/23 [address] [place] [address] Gastroenterology 05/26/24 Fred Castanon [address] [place] [address] 07/21/24 documented as of this encounter
--- OUTSIDE RECORDS SUMMARY | 2024-09-07 18:27 | XMS_ITS | Encounter Summary ---
Author Organization 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 on file Not on file documented as of this encounter Plan of Treatment Upcoming Encounters Date Type Department Care Team (Late st Contact Info) Description 09/22/2024 9:00 AM EDT Clinical Support [facility] MEDICINE [address] [place] [address] Medina Lewis, RN 230 [place] [address] documented as of this encounter Procedures Procedure Name Priority Date/Time Associated Diagnosis Comments CT HEAD WO CONTRAST Routine 09/07/2024 3 :43 PM EDT documented in this encounter Results * CT Head w/o Contrast (09/07/2024 3:43 PM EDT) Anatomical Region Laterality Modality Head, Neck Computed Tomogra phy 09/07/2024 3:43 PM EDT Narrative 09/07/2024 4:06 PM EDT ? [facility] ?[address] ?[place] [address] ? CT Scan Report ? Signed ? Patient: Trace Roberson,Harriet ?MR#: [id number] ?? [id number] ? : 1970 ?Acct:[id number] ? Age/Sex: 54 / F ?ADM Date: 09/07/24 ? Loc: HO.ED ? Attending Dr: ? Ordering Physician: Surendra Uribe ?? Date of Service: 09/07/24 ?? Procedure(s): CT head/brain wo IV con ?? Accession Number(s): [id number] ? cc: Emilie Davis MD; Surendra Uribe ? Report Number: ?? [id number]: Total DLP = ??518.00 mGy-cm ?? EXAMINATION: [...] by Eric Irene MD in OV> ? 09/07/ 1603 ? DD/DT: 09/07/ 1543 ? TD/TT: 09/07/ 1557 ? Consultant [employer]. Vice President [employer] (Ex ): ? Procedure Note Donotuseinterpreter, Image - 09/07/[address] [address] [address] Scan Report Signed Patient: Harriet ValdezMR#: [id number] : 1970Acct:[id number] Age/Sex: 54 / FADM Date: 09/07/24 Loc: HO.ED Attending Dr: Ordering Physician: Surendra Uribe Date of Service: 09/07/24 Procedure(s): CT head/brain wo IV con Accession Number(s): [id number] cc: Emilie Davis MD; Surendra Uribe Report Number: [id number]: Total DLP = 518.00 mGy-cm EXAMINATION: CT [...] Eric Daley MD 09/07/2024 04:03 PM EDT Dictated By: Eric Maki MD Signed By: <Electronically signed by Eric Irene MDin OV> 09/07/24 1603 DD/ 1543 TD/TT: 09/07/24 1557 Consultant [employer]. Vice President [employer] (Ex ): [facility] External Provider IMG CT PROCEDURES Final Result documented in this encounter Visit Diagnoses Diagnosis Gender dysphoria documented in this encounter Additional Health Concerns Assessment Noted Time PHQ-9 Depression Total Score: 3 04/30/20 23 9:17 AM EST documented as of this encounter Care Teams Adult Literacy Instructor Relationship Specialty Start Date End Date Emilie Davis MD [address] [place] [address] PCP - General Family Medicine 05/13/18 Morales Echavarira FNP [address] [place] [address] Nurse Practitioner Family Medicine 04/16/23 Aida Orozco [address] [place] [address] Gastroenterology 05/26/24 Fred Castanon [address] [place] [address] 07/21/24 documented as of this encounter
--- OUTSIDE RECORDS SUMMARY | 2024-09-07 18:27 | XMS_ITS | Encounter Summary ---
Author Organization [employer] [facility] Address [address] [place] [address] 7 [place] [address] Care Team Providers Care Bobcat Driver/Labor Name Role Phone Emilie Davis MD Primary Care Provider +- [phone] Morales Echavarria PATTERN GENERATOR OPERATOR Unavailable Unavailable August Unavailable Fred Castanon Unavailable Reason for Visit * Reason Comments Med Refill Encounter Details Date Type Department Care Team (Late st Contact Info) Description 06/27/2022 Refill [facility] MEDICINE [address] [place] [address] Emilie Davis MD [address] [place] [address] [phone] Social History Tobacco Use Types Packs/Day Years [...] 9:00 AM EDT Clinical Support [facility] MEDICINE [address] [place] [address] Medina Lewis, RONALD [address] [place] [address] documented as of this encounter Visit Diagnoses Not on filedocumented in this encounter Care Teams Bobcat Driver/Labor Relationship Specialty Start Date End Date Emilie Davis MD 230 [place] [address] PCP - General Family Medicine 05/13/18 Morales Echavarria FNP [address] [place] [address] Nurse Practitioner Family Medicine 04/16/23 Aida Orozco [address] [place] [address] Gastroenterology 05/26/24 Fred Castanon [address] [place] [address] 07/21/24 documented as of this encounter
--- OUTSIDE RECORDS SUMMARY | 2024-09-07 18:27 | XMS_ITS | Encounter Summary ---
Author Organization [employer] [facility] Address [address] [place] [address] 7t [place] [address] Care Team Providers Care Dispute Resolution Analyst Name Role Phone Emilie Davis MD Primary Care Provider +1- [phone] Morales Echavarria OPERATIONS MANAGER/COORDINATOR Unavailable Unavailable August Unavailable Fred Castanon Unavailable Encounter Details Date Type Department Care Team (Late st Contact Info) Description 11/28/2022 Abstract [facility] MEDICINE [address] [place] [address] Emilie Davis MD 230 [place] [address] Social History Tobacco Use Types Packs/Day Years [...] [facility] [address] [place] [address] Medina Lewis RN [address] [place] [address] documented as of this encounter Visit Diagnoses Not on filedocumented in this encounter Additional Health Concerns Assessment Noted Time PHQ-9 Depression Total Score: 19 023 9:24 AM EDT documented as of this encounter Care Teams Dispute Resolution Analyst Relationship Specialty Start Date End Date Emilie Davis MD [address] [place] [address] PCP - General Family Medicine 05/13/18 Morales Echavarria FNP [address] [place] [address] Nurse Practitioner Family Medicine 04/16/23 Aida Orozco [address] [place] [address] Gastroenterology 05/26/24 Fred Castanon [address] [place] [address] 07/21/24 documented as of this encounter
--- OUTSIDE RECORDS SUMMARY | 2024-09-07 18:27 | XMS_ITS | Encounter Summary ---
Author Organization [employer] [facility] Address [address] [place] [address] 7 [place] [address] Care Team Providers Care Family Service Caseworker Name Role Phone Emilie Davis MD Primary Care Provider +1- [phone] Morales Echavarria Unavailable Unavailable August Unavailable Fred Castanon Unavailable Reason for Visit * Reason Comments Med Change Request Encounter Details Date Type Department Care Team (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 Not on file Not on file documented as of this encounter Plan of Treatment Upcoming Encounters Date Type Department Care Team (Late st Contact Info) Description 09/22/2024 9:00 AM EDT Clinical Support [facility] [address] [place] [address] Medina Lewis, RONALD [address] [place] [address] documented as of this encounter Visit Diagnoses Diagnosis Gender dysphoria documented in this encounter Additional Health Concerns Assessment Noted Time PHQ-9 Depression Total Score: 3 04/30/20 23 9:17 AM EST documented as of this encounter Care Teams Family Service Caseworker Relationship Specialty Start Date End Date mEilie Davis MD [address] [place] [address] PCP - General Family Medicine 05/13/18 Morales Echavarria FNP [address] [place] [address] Nurse Practitioner Family Medicine 04/16/[address] [place] [address] Gastroenterology 05/26/24 Fred Castanon [address] [place] [address] Drive 3rd [place] [address] 07/21/24 documented as of this encounter
--- OUTSIDE RECORDS SUMMARY | 2024-09-07 18:27 | XMS_ITS | Encounter Summary ---
Author Organization [employer] Address 75 [facility] 7t [place] [address] Care Team Providers Care Graphic Art Technician Name Role Phone Emilie Davis MD Primary Care Provider +1- [phone] Morales Echavarria Unavailable Unavailable August Unavailable Fred Castanon Unavailable Encounter Details Date Type Department Care Team (Late st Contact Info) Description 03/25/2023 Orders Only [facility] MEDICINE [address] [place], [place] [phone] Emilie Davis MD 230 [place], [place] [phone] Social History Tobacco Use Types Packs/Day Years [...] Clinical Support [facility] MEDICINE [address] [place] [address] Medina Lewis RN [address] [place] [address] documented as of this encounter Visit Diagnoses Not on filedocumented in this encounter Additional Health Concerns Assessment Noted Time PHQ-9 Depression Total Score: 10 023 9:08 AM EDT documented as of this encounter Care Teams Graphic Art Technician Relationship Specialty Start Date End Date Emilie Davis MD [address] [place] [address] PCP - General Family Medicine 05/13/18 Morales Echavarria FNP [address] [place] [address] Nurse Practitioner Family Medicine 04/16/23August [address] [place] [address] Gastroenterology 05/26/24 Fred Castanon [address] [place] [address] 07/21/24 documented as of this encounter
--- OUTSIDE RECORDS SUMMARY | 2024-09-07 18:27 | XMS_ITS | Encounter Summary ---
Author Organization [employer] Address [address] [facility] [address] 7[address] [place] [address] Care Team Providers Care Air Technician Name Role Phone Emilie Davis MD Primary Care Provider +1- [phone] Morales Echavarria Unavailable Unavailable August Unavailable Fred Castanon Unavailable Encounter Details Date Type Department Care Team (Late st Contact Info) Description 09/07/2024 Telephone [facility] [address] [place], [place] [phone] Mike Longo MD 230 [place] [address] Social History Tobacco Use Types Packs/Day Years [...] 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 Pt reporting pain from forehead to left shoulder to left eye that began last night around 9PM when in shower. Pt also reports last night felt dizzy, threw up and laid down. When RN wasinquiring, pt also reporting last night barely breathing ok, tired and slower and left sided tingling. Pt denied chest pain. When RN inquired on current symptoms, pt reported intense pain, left eye heavy...experiencing vision changes, blurry worms moving. No other s/s reported at time of call.Due to pt's medical hx and s/s, RN advised pt to seek medical attention at ED. Pt verbalized understanding and in agreement to go to ED. No further questions at this time. Pt to F/U as needed. RN will forward to PCP as FYI. documented in this encounter Plan of Treatment Upcoming Encounters Date Type Department Care Team (Late st Contact Info) Description 09/22/2024 9:00 AM EDT Clinical Support [facility] [address] [place] [address] Medina Lewis, RONALD [address] [place] [address] documented as of this encounter Visit Diagnoses Not on filedocumented in this encounter Additional Health Concerns Assessment Noted Time PHQ-9 Depression Total Score: 3 04/30/20 23 9:17 AM EST documented as of this encounter Care Teams Air Technician Relationship Specialty Start Date End Date Emilie Davis MD [address] [place] [address] PCP - General Family Medicine 05/13/18 Morales Echavarria FNP [address] [place] [address] Nurse Practitioner Family Medicine 04/16/23August [address] [place] [address] Gastroenterology 05/26/24 Fred Castanon [address] [place] [address] 07/21/24 documented as of this encounter
== END 2024-09-07 18:06 | disposition home or self-care (01) ==
PROVIDERS: Physician Assistant; Emergency Provider Emergency Medicine Emergency Medical Services; PCP Family Medicine
DX: R51.9 Headache, unspecified (principal); R11.2 Nausea with vomiting, unspecified; H53.8 Other visual disturbances; Z03.818 Encounter for observation for suspected exposure to other biological agents ruled out; Z79.899 Other long term (current) drug therapy
CPT/HCPCS: 0241U; 36415; 70450; 80048; 85025; 96372; 99284; J1885

== ENCOUNTER → 2024-09-07 14:06 | Outpatient (BNV) | payer OTHER, SELFPAY | PROVIDERS: Emergency Provider Emergency Medicine Emergency Medical Services; PCP Family Medicine; Visit Provider Radiology Diagnostic Radiology | DX: R51.9 Headache, unspecified (principal); H57.12 Ocular pain, left eye | CPT/HCPCS: 70450 ==

== ENCOUNTER 2024-09-22 09:34 | Outpatient (REF) | payer OTHER, SELFPAY ==
--- OUTSIDE RECORDS SUMMARY | 2024-09-22 10:11 | XMS_ITS | Encounter Summary ---
Author Organization [employer] Address [address] 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 Contact pt at [phone] documented in this encounter Plan of Treatment Not on file documented as of this encounter Visit Diagnoses Not on filedocumented in this encounter Additional Health Concerns Assessment Noted Time PHQ-9 Depression Total Score: 3 04/30/20 23 9:17 AM EST documented as of this encounter Care Teams Hr Receptionist Relationship Specialty Start Date End Date Emilie Davis MD [address] [place] [address] PCP - General Family Medicine 05/13/18 Morales Echavarria FNP [address] [place] [address] Nurse Practitioner Family Medicine 04/16/23OrozcoAugust [address] [facility] 3rd [place] [address] Gastroenterology 05/26/24 Fred Csatanon [address] [place] [address] 3rd [place] [address] 07/21/24 documented as of this encounter
--- OUTSIDE RECORDS SUMMARY | 2024-09-22 10:11 | XMS_ITS | Encounter Summary ---
Author Organization [employer] [facility] Address [address] [facility] 7t [place] [address] Care Team Providers Care Edi Coordinator Name Role Phone Emilie Davis MD Primary Care Provider +1- [phone] Morales Echavarria Unavailable Unavailable August Unavailable Fred Castanon Unavailable Encounter Details Date Type Department Care Team (Late st Contact Info) Description 05/27/2022 Abstract [facility] 230 [place] [address] Emilie Davis MD 230 [place] [address] Social History Tobacco Use Types Packs/Day Years Used Date Smoking Tobacco: Never Assessed Comments Unknown Sex and Gender Information Value Date Recorded Sex Assigned at Female 03/12/2022 10:32 AM EDT Legal Sex Male 10:32 AM EDT Gender Identity Transgender Male 03/12/2022 10:3 2 AM EDT Sexual Orientation Choose not to disclose 2021 10:32 AM EDT documented as of this encounter Plan of Treatment Not on file documented as of this encounter Procedures Procedure Name Priority Date/Time Associated Diagnosis Comments COLONOSCOPY Routine 01/30/2018 HPV HIGH RISK PCR Routine 12/06/2017 12: 00 AM EDT PAP SMEAR Routine 12/06/2017 12:00 AM EDT documented in this encounter Results * Hm Colonoscopy (01/30/2018) Colonoscopy normal Historical Provider HEALTH MAINTENANCE Final Result * HPV High Risk PCR (12/06/2017 12:00 AM EDT) Swab us Historical Provider LAB MICROBIOLOGY - GENERA L ORDERABLES Final Result Performing Organization Address City/[facility]/ZIP Co de Phone Number IMAGING * Pap Smear (12/06/2017 12:00 AM EDT) Swab us Historical Provider MD LAB CYTOLOGY ORDERABLES F inal Result Performing Organization Address City/[facility]/ZIP Co de Phone Number [facility] [address] [place] [address] [phone] documented in this encounter Visit Diagnoses Not on filedocumented in this encounter Care Teams Edi Coordinator Relationship Specialty Start Date End Date Emilie Davis MD [address] [place] [address] PCP - General Family Medicine 05/13/18 Morales Echavarria FNP [address] [place] [address] Nurse Practitioner Family Medicine 04/16/23 Aida Orozco [address] [place] [address] Gastroenterology 05/26/24 Fred Castanon [address] [place] [address] 07/21/24 documented as of this encounter
--- OUTSIDE RECORDS SUMMARY | 2024-09-22 10:11 | XMS_ITS | Encounter Summary ---
Author Organization [employer] Address [address] [facility] 7t [place] [address] Care Team Providers Care Drill Press Set Up Operator Name Role Phone Emilie Davis MD Primary Care Provider + [phone] Morales Echavarria Unavailable Unavailable August Unavailable Fred Castanon Unavailable Encounter Details Date Type Department Care Team (Late st Contact Info) Description 04/22/2022 Orders Only [facility] [address] [place], [place] [phone] Emilie Davis MD [address] [place] [address] [phone] HSV (herpes simplex virus) anogenital infection (Primary [...] complication documented in this encounter Care Teams Drill Press Set Up Operator Relationship Specialty Start Date End Date Emilie Davis MD [address] [place] [address] [phone] PCP - General Family Medicine 05/13/18 Morales Echavarria FNP [address] [place] [address] Nurse Practitioner Family Medicine 04/16/[address] [place] [address] Gastroenterology 05/26/24 Fred Castanon [address] [place] [address] 07/21/24 documented as of this encounter
--- OUTSIDE RECORDS SUMMARY | 2024-09-22 10:11 | XMS_ITS | Encounter Summary ---
Author Organization [employer] Address [address] [facility] 7t [place] [address] Care Team Providers Care Band Singer Name Role Phone Emilie Davis MD Primary Care Provider +1- [phone] Morales Echavarria Unavailable Unavailable August Unavailable Fred Castanon Unavailable Reason for Visit * Reason Comments Med Refill Encounter Details Date Type Department Care Team (Late st Contact Info) Description 01/17/[address] 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
--- OUTSIDE RECORDS SUMMARY | 2024-09-22 10:11 | XMS_ITS | Encounter Summary ---
Author Organization [employer] Address [address] [facility] [address] [facility] [address] 7t [place] [address] Care Team Providers Care Electrical Sign Wirer Name Role Phone Rozel, Emilie MARISCAL Primary Care Provider +1- [phone] Morales Echavarria Unavailable Unavailable August Unavailable Fred Castanon Unavailable Encounter Details Date Type Department Care Team (Latest Contact Info) Description 09/22/2024 9:00 AM EDT Clinical Support [facility] MEDICINE 230 [place] [address] Medina Lewis, RONALD 230 [place] [address] On pre-exposure prophylaxis for HIV Social History Tobacco Use Types Packs/Day Years [...] 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 Gonorrhoeae RNA, TMA, Urogenitial Microbiology Routine On pre-exposure prophylaxis for HIV Ordered: 09/22/2024 Hepatic Function Panel Lab Routine On pre-exposure prophylaxis for HIV Expected: 09/22/2024 (Approximate), Expires: 09/22/2025 documented as of this encounter Procedures Procedure Name Priority Date/Time Associated Diagnosis Comments POCT RAPID HIV SCREENING Routine 09/22/2024 10:10 AM EDT On pre-exposure prophylaxis for HIV documented in this encounter Results * POCT RAPID HIV SCREENING (09/22/2024 10:10 AM EDT) Blood 09/22/2024 10:1 0 AM EDT Narrative Medina Lewis RN - 09/22/2024 10:10 AM EDT NEGATIVE us Nahun Dyer MD POINT OF CARE TEST ENTER/EDIT ORDERABLES Final Result documented in this encounter Visit Diagnoses Diagnosis On pre-exposure prophylaxis for HIV documented in this encounter Administered Medications Inactive Administered Medications - up to 3 most recent administrations Medication Order MAR Action Action Date Dose Rate Site Cabotegravir ER Suspension Extended Release 600 mg 600 mg, Intramuscular, Once, On Sat09/22/24 at 0945, For 1 dose, Ventrogluteal.Indication s:On pre-exposure prophylaxis for HIV Given 09/22/2024 9:45 AM EDT 600 mg Right Upper Buttock documented in this encounter Additional Health Concerns Assessment Noted Time PHQ-9 Depression Total Score: 3 04/30/20 23 9:17 AM EST documented as of this encounter Care Teams Electrical Sign Wirer Relationship Specialty Start Date End Date Emilie Davis MD [address] [place] [address] PCP - General Family Medicine 05/13/18 Morales Echavarria FNP [address] [place] [address] Nurse Practitioner Family Medicine 04/16/23 Pam A[address] [place] [address] Gastroenterology 05/26/24 Fred Castanon [address] [place] [address] 07/21/24 documented as of this encounter
--- OUTSIDE RECORDS SUMMARY | 2024-09-22 10:11 | XMS_ITS | Encounter Summary ---
Author Organization [facility] Address [address] [place] [address] 7t [place] [address] Care Team Providers Care Supervisor Paper Coating Name Role Phone Emilie Davis MD Primary Care Provider + [phone] Morales Echavarria Unavailable Unavailable August Unavailable Fred Castanon Unavailable Reason for Visit * Reason Comments Med Refill Encounter Details Date Type Department Care Team (Late st Contact Info) Description 06/27/2022 Refill [facility] MED[facility] 230 [place] [address] Emilie Davis MD [address] [place], [place] [phone] Social History Tobacco Use Types Packs/Day Years [...] on filedocumented in this encounter Care Teams Supervisor Paper Coating Relationship Specialty Start Date End Date Emilie Davis MD [address] [place], [place] [phone] PCP - General Family Medicine 05/13/18 Morales Echavarria FNP [address] [place] [address] Nurse Practitioner Family Medicine 04/16/23August [address] 3rd Floor [place] [address] Gastroenterology 05/26/[address] 3rd Floor [place] [address] 07/21/24 documented as of this encounter
--- OUTSIDE RECORDS SUMMARY | 2024-09-22 10:11 | XMS_ITS | Encounter Summary ---
Author Organization [employer] [facility] Address 75 [facility] 7t [place] [address] Care Team Providers Care Senior Planning Analyst Name Role Phone Emilie Davis MD Primary Care Provider +1- [phone] Morales Echavarria ONLINE MERCHANDISER Unavailable Unavailable August Unavailable Fred Castanon Unavailable Reason for Visit * Reason Onset Date Comments Referral 07/18/2022 Encounter Details Date Type Department Care Team (Late st Contact Info) Description 07/18/2022 Telephone [facility] 230 [place] [address] Emilie Davis MD 230 [place] [address] Referral Social History Tobacco Use Types Packs/Day [...] [facility]. Please contact pt [phone] documented in this encounter Plan of Treatment Not on file documented as of this encounter Visit Diagnoses Not on filedocumented in this encounter Care Teams Senior Planning Analyst Relationship Specialty Start Date End Date Emilie Davis MD [address] [place] [address] PCP - General Family Medicine 05/13/18 Morales Echavarria FNP [address] [place] [address] Nurse Practitioner Family Medicine 04/16/23August [address] [place] [address] Gastroenterology 05/26/24 Fred Castanon [address] [place] [address] 07/21/24 documented as of this encounter
--- OUTSIDE RECORDS SUMMARY | 2024-09-22 10:11 | XMS_ITS | Encounter Summary ---
Author Organization [employer] Address [address] [facility] [address] 7[address] [place] [address] Care Team Providers Care Compressor Assembler Name Role Phone Emilie Davis MD Primary Care Provider +1- [phone] Morales Echavarria Unavailable Unavailable August Unavailable Fred Castanon Unavailable Encounter Details Date Type Department Care Team (Late st Contact Info) Description 03/25/2023 Orders Only [facility] MEDICINE [address] [place] [address] Emilie Davis MD 230 [place] [address] Social History Tobacco Use Types Packs/Day Years [...] documented as of this encounter Care Teams Compressor Assembler Relationship Specialty Start Date End Date Emilie Davis MD [address] [place] [address] PCP - General Family Medicine 05/13/18 Morales Echavarria FNP [address] [place] [address] Nurse Practitioner Family Medicine 04/16/23August [address] [place] [address] Gastroenterology 05/26/24 Fred Castanon [address] [place] [address] 07/21/24 documented as of this encounter
--- OUTSIDE RECORDS SUMMARY | 2024-09-22 10:12 | XMS_ITS | Encounter Summary ---
Author Organization [employer] [facility] Address [address] [facility] [address] 7t [place] [address] Care Team Providers Care Clipper Machine Name Role Phone Emilie Davis MD Primary Care Provider +1- [phone] Morales Echavarria DEOILING MACHINE OPERATOR Unavailable Unavailable August Unavailable Fred Castanon Unavailable Reason for Visit * Reason Onset Date Comments Med Refill 04/22/2024 Encounter Details Date Type Department Care Team (Late st Contact Info) Description 04/22/2024 Telephone [facility] MEDICINE 230 [place] [address] Emilie Davis MD [address] [place] [address] Med Refill Social History Tobacco Use Types [...] 200 MG/5ML suspension To be sent to: [facility] - [place], [place] - [address] documented in this encounter Plan of Treatment Not on file documented as of this encounter Visit Diagnoses Not on filedocumented in this encounter Additional Health Concerns Assessment Noted Time PHQ-9 Depression Total Score: 3 04/30/20 23 9:17 AM EST documented as of this encounter Care Teams Clipper Machine Relationship Specialty Start Date End Date Emilie Davis MD [address] [place] [address] PCP - General Family Medicine 05/13/18 Morales Echavarria FNP [address] [place] [address] Nurse Practitioner Family Medicine 04/16/23 Aida Orozco [address] [place] [address] Gastroenterology 05/26/24 Fred Castanon [address] [place] [address] 07/21/24 documented as of this encounter
--- OUTSIDE RECORDS SUMMARY | 2024-09-22 10:12 | XMS_ITS | Clinical Summary ---
Author Organization [employer] Address [address] [place] [address] Care Team Providers Care Archives Director Name Role Phone RyanEmilie moreira MD Primary Care Provider [phone] Morales Echavarria Unavailable Unavailable August Unavailable Fred Castanon Unavailable Allergies Active Allergy Reactions Criticality Noted Date Comments Penicillins Anaphylaxis,Rash High 05/16/2017 Sumatriptan 10/28/2018 Medications * This document contains information received from the source organization and may not represent a complete record from that organization. 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 -dental home is [facility] -health care proxy filed 03/16/24 Assessment & Plan (03/17/2024 6:12 AM EST): -next physical exam due after 03/16/2025 -eye care facilitated by Alessio. -dental home is [facility] -health care proxy filed 03/16/24 Assessment & Plan (03/22/2023 9:17 AM EST): -next physical exam due after 12/07/2023. -eye care facilitated by Alessio. -dental home is outside of [facility] Assessment & Plan (12/06/2022 10:19 AM EDT): -next physical exam dueafter 12/07/2023. -eye care facilitated by Alessio. -dental home is outside of [facility] Hx of hepatitis C 11/26/2022 Overview (11/26/2022): [...] rays suggests osteoarthritis. Seen by rheumatology in [place]. Ibuprofen and NSAIDs cause gastritis. Minimal relief with acetaminophen. He was referred back to rheumatology in [place] 08/23/2020 but provider left the area. started on Tramadol. Take 3 times per week. He is not taking at this time. Assessment & Plan (03/17/2024 6:08 AM EST): X rays suggests osteoarthritis. Seen by rheumatology in [place]. Ibuprofen and NSAIDs cause gastritis. Minimal relief with acetaminophen. He was referred back to rheumatology in [place] 08/23/2020 but provider left the area. started on Tramadol. Take 3 times per week. He is not taking at this time. Assessment & Plan (03/22/2023 9:15 AM EST): X rays suggests osteoarthritis. Seen by rheumatology in [place]. Ibuprofen and NSAIDs cause gastritis. Minimal relief with acetaminophen. He was referred back to rheumatology in [place] 08/23/2020 but provider left the area. started on Tramadol. Take 3 times per week. Will need COT in the future. Assessment & Plan (12/06/2022 8:54 AM EDT): X rays suggests osteoarthritis. Seen by rheumatology in [place]. Ibuprofen and NSAIDs cause gastritis. Minimal relief with acetaminophen. He was referred back to rheumatology in [place] 08/23/2020 but provider left the area. started on Tramadol. Take 3 times per week. Will need COT in the future. Assessment & Plan (10/11/2022 9:58 AM EDT): X rays suggests osteoarthritis. Seen by rheumatology in [place]. Ibuprofen and NSAIDs cause gastritis. Minimal relief with acetaminophen. He was referred back to rheumatology in [place] 08/23/2020 but provider left the area. started [...] Now with palpitations. Will refer to his uptwist spinner for bradycardia. Assessment & Plan (03/22/2023 9:16 AM EST): Sinus bradycardia and asymptomatic. Pt states he always has slow heart rate Pt repots heart rate in 40s recorded with home BP monitor with symptoms of dizziness recorded at home. Now with palpitations. Will refer to his uptwist spinner for bradycardia. Assessment & Plan (12/06/2022 8:54 AM EDT): Sinus bradycardia and asymptomatic. Pt states he always has slow heart rate Pt repots heart rate in 40s recorded with home BP monitor with symptoms of dizziness recorded at home. Now with palpitations. Will refer to his uptwist spinner for bradycardia. Assessment & Plan (10/11/2022 9:58 AM EDT): Sinus bradycardia and asymptomatic. Pt states he always has slow heart rate Pt repots heart rate in 40s recorded with home BP monitor with symptoms of dizziness recorded at home. Now with palpitations. Will refer to his uptwist spinner for bradycardia. Generalized abdominal pain 06/25/2021 Overview [...] for GI. Insurance no longer accepted at [facility]. -EGD scheduled for December 2021. Assessment & [...] for GI. Insurance no longer accepted at [facility]. -EGD scheduled for December 2021. Assessment & [...] for GI. Insurance no longer accepted at [facility]. -EGD scheduled for December 2021. Assessment & [...] for GI. Insurance no longer accepted at [facility]. -EGD scheduled for December 2021. Assessment & [...] for GI. Insurance no longer accepted at [facility]. -EGD scheduled for December 2021. History of non-ST elevation myocardial infarctio n (NSTEMI) 06/25/2021 Overview (07/21/2024): Hx NSTE [place] 09/2017 -continue oscar -Stress test without evidence [...] Plan (05/20/2024 4:29 PM EST): Hx NSTE [place] 09/2017 -continue oscar -Stress test without evidence of ischemia 04/08/18 -he held statin and ASA due to GI upset -trial of restarting statin 01/[address] on 05/08/24 showed Coronary artery atherosclerosis. Pt wants to get reestablished with cardiology. -referral sent 05/20/24 Assessment & Plan (03/22/2023 9:17 AM EST): Hx NSTE [place] 09/2017 -continue oscar -Stress test without evidence of ischemia 04/08/18 -he held statin and ASA due to GI upset -trial of restarting statin 01/2019 Assessment & Plan (12/06/2022 8:55 AM EDT): Hx NSTE [place] 09/2017 -continue oscar -Stress test without evidence of ischemia 04/08/18 -he held statin and ASA due to GI upset -trial of restarting statin 01/2019 Assessment & Plan (10/11/2022 9:57 AM EDT): Hx NSTE [place] 09/2017 -continue oscar -Stress test without evidence of ischemia 04/08/18 -he held statin and ASA due to GI upset -trial of restarting statin 01/2019 Seasonal allergies 06/25/2021 Gender 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 10/03/2018 Overview (03/26/2024): Pt identifies as male and is changed his name in [place] October 2020. -He restarted testosterone 08/2020 -S/p chest reconstruction 10/2018 -Testosterone was 654 on 10/2022 Lab Results Component Value Date TESTTOTAL 1641 (A) 03/18/2024 HGB 16.2 (H) 03/18/2024 HGB 15.8 10/18/2022 HCT 47.3 (H) 03/18/2024 Goal testosterone levels 350-700ng/dl. Assessment & Plan (03/17/2024 6:12 AM EST): Pt identifies as male and is changing his name in [place] October 2020. He restarted testosterone 08/2020 S/p chest reconstruction 10/2018 Pt would like to switch small needle to subcutaneous instead. 25 gague needles sent 12/06/2022 Testosterone was 654 on 10/2022. Assessment & Plan (03/22/2023 9:16 AM EST): Pt identifies as male and is changing his name in [place] October 2020. He restarted testosterone 08/2020 S/p chest reconstruction 10/2018 Pt would like to switch small needle to subcutaneous instead. 25 gague needles sent 12/06/2022 Testosterone was 654 on 10/2022. Assessment & Plan (12/06/2022 11:18 AM EDT): Pt identifies as male and is changing his name in [place] October 2020. He restarted testosterone 08/2020 S/p chest reconstruction 10/2018 Pt would like to switch small needle to subcutaneous instead. 25 gague needles sent 12/06/2022 Testosterone was 654 on 10/2022. Assessment & Plan (10/11/2022 9:59 AM EDT): Pt identifies as male and is changing his name in [place] October 2020. He restarted testosterone 08/2020 S/p chest reconstruction 10/[address] scan, lung 10/04/2017 Overview (05/20/2024): -Ct scan in [facility] on 12/25/2017 showed multiple indeterminate nodules, largest [...] 11/15/23 and NO SHOW. Pt can call [phone] to schedule mariely. number given to call 03/16/24 -CT 05/08/24 No acute intrathoracic findings. Calcified granulomas present bilaterally. No suspicious pulmonary nodule identified. Air-fluid level present within the midthoracic esophagus can be associated with gastroesophageal reflux disease and esophageal dysmotility. Coronary artery atherosclerosis. Assessment & Plan (05/20/2024 4:05 PM EST): -Ct scan in [facility] on 12/25/2017 showed multiple indeterminate nodules, largest [...] 11/15/23 and NO SHOW. Pt can call [phone] to schedule mariely. number given to call 03/16/24 -CT 05/08/24 No acute intrathoracic findings. Calcified granulomas present bilaterally. No suspicious pulmonary nodule identified. Air-fluid level present within the midthoracic esophagus can be associated with gastroesophageal reflux disease and esophageal dysmotility. Coronary artery atherosclerosis. Assessment & Plan (03/17/2024 6:13 AM EST): -Ct scan in [place] ER on 12/25/2017 showed multiple indeterminate nodules, [...] 11/15/23 and NO SHOW. Pt can call [phone] to schedule mariely. number given to call 03/16/24 Assessment & Plan (03/22/2023 9:16 AM EST): -Ct scan in [place] ER on 12/25/2017 showed multiple indeterminate nodules, largest was solid and measured 2mm. -Given that the Pt has a tobacco Hx and quit in 2018 we referrred to pulmonology that was likely distrupted by the pandemic. -Will ordered repeat CT of chest to follow the nodles. Assessment & Plan (12/06/2022 10:18 AM EDT): -Ct scan in [place] ER on 12/25/2017 showed multiple indeterminate nodules, [...] referred for OP services and referral to [facility] Psychopharmacology clinic. Provided Crisis contact number in [...] treatment engagement. PLAN: 1. Follow up with [facility]: Not recommended for follow-up 2. Patient goal is to learn coping mechanisms to manage sxs. 3. Behavioral Recommendations a. Ind. Therapy and Medication Management b. Continue using coping skills c. [facility] support as needed. Mild major depression 06/25/20212023 Encounters Date Type Department Care Team Description 09/22/2024 9:00 AM EDT Clinical Support [address] [address] Medina Lewis, RN On pre-exposure prophylaxis for HIV 09/22/2024 Travel 09/09/2024 Orders Only [address] [address] Emilie Davis MD Abnormal brain CT (Primary Dx) 09/09/[address] [address] Emilie Davis MD Referral 09/08/[address] [address] Emilie Davis MD Nurse Triage 09/07/2024 Orders Only GENERIC EXTERNAL DATA DEPARTMENT Provider, Generic External Data 09/07/2024 Telephone [facility] [address] [place] [phone] Mike Longo MD 09/02/2024 Refill [facility] [address] [place] [phone] Emilie Davis MD Gender dysphoria 09/01/2024 Orders Only [facility] [address] [place] [phone] Emilie Davis MD Acute non intractable tension-type headache (Primary Dx); Gender dysphoria 08/24/[address] [address] Jacquie Garibay DO Results 08/20/2024 11:20 AM EDT Office Visit [facility] [address] [place] [phone] Left hip pain (Primary Dx) 08/20/[address] [address] Emiile Davis MD Results 08/04/[address] [address] Nahun Dyer MD 07/24/2024 1:00 PM EDT Clinical Support [address] [address] Medina Lewis, RN On pre-exposure prophylaxis for HIV (Primary Dx) 07/24/2024 Orders Only GENERIC EXTERNAL DATA DEPARTMENT Provider, Generic External Data 07/24/2024 Travel 07/20/2024 Orders Only [address] [address] Emilie Davis MD Left hip pain (Primary Dx) 07/20/[address] [address] Emilie Davis MD Referral 07/16/[address] [address] Medina Lewis, RONALD 07/13/[address] [address] Medina Lewis, RONALD 07/10/[address] [address] Bijal Irene, RN Gender dysphoria 07/08/2024 Refill [facility] [address] [place] [phone] Emilie Davis MD 07/08/2024 Orders Only [facility] [address] [place] [phone] Emilie Davis MD 07/02/[address] [phone] Medina Lewis RN 06/30/[address] [phone] Emilie Davis MD May recalls from Last [...] Industry Job Start Date Job End Date Type [employer] Not on file Not on file [...] 05/20/2024 4:01 PM EST Plan of Treatment Health Maintenance Due Date Last Done Comments CT Colonography 1970 FIT DNA/Cologuard 1970 FIT 1970 FOBT 1970 Sigmoidoscopy 1970 Pneumococcal Vaccine: 50+ Years (2 of 2 - PCV) 09/17/2018 09/17/2017 Colonoscopy 01/30/2023 01/30/2018 Colorectal Cancer Screening 01/30/2023 Zoster Vaccines (1 of 2) 02/01/2023 Influenza Vaccine (#1) 2024 06/18/2019, 2017 Postponed from 01/12/2024 (Patient Refused) COVID-19 Vaccine ( - season) 2025 06/05/2021, 10/11/2020, 09/14/2020 Postponed from [...] AM EDT On pre-exposure prophylaxis for HIV SARS COV2/INFLUENZA A/B AND RSV RNA QL [...] Maintenance Results * POCT RAPID HIV SCREENING (09/22/2024 10:10 AM EDT) Only the most recent of2 resultswithin the time period is included. Blood 09/22/2024 10:1 0 AM EDT Narrative AlfonsoMedina lara, RN - 09/22/2024 10:10 AM EDT NEGATIVE Nahun Dyer MD POINT OF CARE TEST ENTER/EDIT ORDERABLES Final Result * SARS-CoV-2 RNA, Influenza A/B, and RSV RNA, Ql NAAT (09/07/2024 5:17 PM EDT) Influenza A PCR NEGATIVE Negative [facility] Influenza B PCR NEGATIVE Negative [facility] Resp Syncy Virus RNA Qual PCR NEGATIVE Negative [facility] SARS COV2 PCR NEGATIVE Negative [facility] Comment:All test results mus t [...] use by authorized laboratories.Testing performed on the [employer] GeneXpert utilizingreal-time RT-PCR.All SARS CoV2 and positive influenza A/B results arereported to [facility]. 09/07/2024 5:17 PM EDT 09/07/2024 5:20 PM EDT Generic External Data Provider LAB MICROBIOLOGY - GENERAL ORDERABLES Final Result [facility] [address] [place] [phone] * CT Head w/o Contrast (09/07/2024 3:43 PM EDT) Anatomical Region Laterality Modality Head, Neck Computed Tomogra phy 09/07/2024 3:43 PM EDT Narrative 09/07/2024 4:06 PM EDT ? [place] [facility] ?[address] ?[place] [address] ? CT Scan Report ? Signed ? Patient: Trace Roberson,Harriet ?MR#: [id number] ?? [id number] ? : 1970 ?Acct:[id number] ? Age/Sex: 54 / F ?ADM Date: 09/07/24 ? Loc: HO.ED ? Attending Dr: ? Ordering Physician: Surendra Uribe ?? Date of Service: 09/07/24 ?? Procedure(s): CT head/brain wo IV con ?? Accession Number(s): [id number] ? cc: Emilie Davis MD; Surendra Uribe ? Report Number: ?? [id number]: Total DLP = ??518.00 mGy-cm ?? EXAMINATION: [...] DD/ 1543 ? TD/TT: 09/07/24 1557 ? Tavern Keeper: ? Procedure Note Donotuseinterpreter, Image - 09/07/[address] [address] [address] Scan Report Signed Patient: Harriet ValdezMR#: [id number] : 1970Acct:[id number] Age/Sex: 54 / FADM Date: 09/07/24 Loc: HO.ED Attending Dr: Ordering Physician: Surendra Uribe Date of Service: 09/07/24 Procedure(s): CT head/brain wo IV con Accession Number(s): [id number] cc: Emilie Davis MD; Surendra Uribe Report Number: [id number]: Total DLP = 518.00 mGy-cm EXAMINATION: CT [...] Maki MD Signed By: <Electronically signed by Sukhjinder Montilla OV> 09/07/24 1603 DD/ 1543 TD/TT: 09/07/24 1557 Tavern Keeper: [facility] External Provider IMG CT PROCEDURES Final Result * XR Pelvis 1-2 Views (08/20/2024 12:22 PM EDT) Anatomical Region Laterality Modality Body, Pelvis Radiographic Aurora ging 08/20/2024 12:2 2 PM EDT Narrative 08/20/2024 1:45 PM EDT ?[facility] ?[address] ?[place] [address] ?XRay Report ? Signed ? Patient: Trace RobersonHarriet ?MR#: [id number] ?? [id number] ? : 1970 ?Acct:[id number] ? Age/Sex: 54 / F ?ADM Date: 08/20/24 ? Loc: HO.HHCX ? Attending Dr: Jacquie Garibay DO ? Ordering Physician: Jacquie Garibay DO ?? Date of Service: 08/20/24 ?? Procedure(s): XR pelvis 1-2V ?? Accession Number(s): [id number] ? cc: Jacquie Garibay DO ? EXAMINATION: [...] DD/ 1222 ? TD/TT: 08/20/24 1256 ? Tavern Keeper: ? Procedure Note Donotcammieinterpreter, Image - 08/20/[address] [address] XRay Report Signed Patient: Harriet ValdezMR#: [id number] : 1970Acct:[id number] Age/Sex: 54 / FADM Date: 08/20/24 Loc: HO.HHCX Attending Dr: Jacquie Garibay DO Ordering Physician: Jacquie Garibay DO Date of Service: 08/20/24 Procedure(s): XR pelvis 1-2V Accession Number(s): [id number] cc: Jacquie Garibay DO EXAMINATION: XR PELVIS [...] 08/20/24 1342 DD/ 1222 TD/TT: 08/20/24 1256 Tavern Keeper: Jacquie Garibay DO IMG XR PROCEDURES Final Resu lt * (ABNORMAL) Confirmatory Syphilis Profile (07/24/2024 1:36 PM EDT) [facility] Rapid Plasma Reagin, Quant Non-React jovanny Nonreactive [facility] Treponema pallidum Antibody, Particle Agglutination Reactive( A) Nonreactive [facility] Comment:These results must b e reported by the ordering clinician orclinical facility to the [facility] required by state law.Testing performed at: [address] [address] 07/24/2024 1:36 PM EDT 07/25/2024 4:05 AM EDT Nahun Dyer MD LAB BLOOD ORDERABLES Final Res ult [facility] [address] [place] [phone] * (ABNORMAL) Syphilis Screen (07/24/2024 1:36 PM EDT) [facility] Syphilis Screen Reactive( A) Nonreactive [facility] Comment:Reactive specimens a re sent to the [facility] Labfor confirmatory tests. 07/24/2024 1:36 PM EDT 07/24/2024 4:20 PM EDT Nahun Dyer MD LAB BLOOD ORDERABLES Final Res ult [facility] [address] [place] [phone] * HIV-1 RNA, Quantitative, Real-Time PCR (07/24/2024 1:36 PM EDT) [facility] HIV RNA PCR Qn Copies NOT DETECTED NOT DETECTED copies/mL [facility] HIV RNA PCR Qn Log Copies NOT DETECTED NOT DETECTED [facility] Comment:Result Units: Log co pies/mLThis test was performed using Real-Time Polymerase ChainReaction.Reportable Range: 20 copies/mL to 10,000,000 copies/mL(1.30 log copies/mL to 7.00 log copies/mL).THIS TEST WAS PERFORMED AT:[facility] [place] [phone] MALDONADO MD 07/24/2024 1:36 PM EDT 07/24/2024 4:20 PM EDT Nahun Dyer MD LAB BLOOD ORDERABLES Final Res ult Performing Organization Address [facility] Co de Phone Number [facility] [address] [place] [phone] * (ABNORMAL) Lipid Panel, Standard (07/24/2024 1:36 PM EDT) Triglycerides 141 <150 mg/dL [facility] Comment:Desirable Triglyceri de: less than 150 mg/dLBorderline High Triglyceride 150-199 mg/dLHigh Triglyceride: 200-499 mg/dLVery High Triglyceride: greater than or equal to 5OO mg/dL Cholesterol 205(H) <200 mg/dL [facility] Comment:Desirable Cholestero l: less than 200 mg/dLBorderline High Cholesterol: 200-239 mg/dLHigh Cholesterol: greater than 239 mg/dL LDL Cholesterol Calculated 114(H) <100 mg/dL [facility] Comment:Desirable LDL: less than 100 mg/dLNear Optimal/Above Optimal LDL: 110- 129 mg/dLBorderline High LDL: 130-159 mg/dLHigh LDL: 160-189 mg/dLVery High LDL: greater than or equal to 190 mg/dL HDL Cholesterol 63 >40 mg/dL [facility] Comment:Desirable HDL: great er than 40 mg/dL Note: This HDL assay may give artificially low results in patients with liver disease. 07/24/2024 1:36 PM EDT 07/24/2024 4:20 PM EDT us Generic External Data Provider LAB BLOOD ORDERAB LES Final Result Performing Organization Address [facility]/ZIP Co de Phone Number [facility] [address] [place] [phone] * HPV mRNA E6/E7 w/Reflex to HPV Genotypes 16, 18/45 (03/22/2023 11:30 AM EST) HPV nRNA E6/E7 Not Detected Not Detected [facility] Comment:Methodology: Transcr iption-Mediated AmplificationThis assay detects E6/E7 viral messenger RNA (mRNA) from 14high-risk HPV types (16,18,31,33,35,39,45,51,52,56,58,59,66,68).Cervical sources are required for HPV testing.If a vaginal source from a patient who has had atotal hysterectomy with removal of cervix wassubmitted, please contact the testing laboratoryfor alternative testing options.For additional information, please refer tohttp://education.[employer]/faq/TGP803l7(This link if provided for information/educational purposes only.)THIS TEST WAS PERFORMED AT:[facility] [place] [phone] MALDONADO MD HPV mRNA E6/E7 [facility] HPV 16 RNA [facility] HPV 18/45 RNA [facility] 03/22/2023 11:3 0 AM EST 03/25/2023 12:20 PM EST Emilie Davis MD LAB CYTOLOGY ORDERABLES Fi nal Result [facility] [address] [place] [phone] * Pap Smear (03/22/2023 11:30 AM EST) 03/22/2023 11:3 0 AM EST 03/25/2023 12:20 PM EST Narrative [facility] - 04/11/2023 11:26 AM EST ----- ------- Name: Harriet Valdez ?Age/Sex: 53/F ? : 1970 Unit#: [id number] ?? Attend Dr: RADHA VILLAREAL ??MD ?Re03/22/23 ?Status: DEP REF ? [facility] ? Disch: ? ----- ------- SPEC : [id number] ?RECD: 03/25/230 ? STATUS: ??SOUT ? REQ NUM: [id number] ? AMBREEN: 03/22/23 ? SUBM DR: Emilie Davis MD ? ENTERED: ??03/25/23-2854 ?SP TYPE: Pap Smr ?OTHR : ? ORDERED: ??Pap Smear ? Interpretation ?? Satisfactory for evaluation. ?? Negative for intraepithelial lesion or malignancy. ?HPV mRNA E6/E7: ?NOT DETECTED ? This assay detects E6/E7 viral messenger RNA (mRNA) from 14 high-risk HPV types (16, 18, ?? 31, 33, 35, 39, 45, 51, 52, 56, 58, 59, 66, 68) ?? HPV testing performed by [facility], [place], [place]. ??See reference laboratory ?? portion of [...] MD LAB CYTOLOGY ORDERABLES Fi nal Result [facility] [address] [place] [phone] * Colonoscopy (01/30/2018) Colonoscopy normal Historical Provider HEALTH MAINTENANCE Final Result from Last 3 Months or Most Recently Relevant to Health Maintenance Insurance [facility] [id number] [place] Advance Directives Documents on File Type Date Recorded Patient Systems Technologist Expl anation Advance Directives and Living Will 03/16/2024 Health Care Proxy 03/16/24 Care Teams Archives Director Relationship Specialty Start Date End Date Emilie Davis MD [address] [place] [phone] PCP - General Family Medicine 05/13/18 Morales Echavarria FNP [address] [place] [phone] Nurse Practitioner Family Medicine 04/16/23 Aida Orozco [address] [place] [phone] Gastroenterology 05/26/24 Fred Castanon [address] [place] [phone] 07/21/24
--- OUTSIDE RECORDS SUMMARY | 2024-09-22 10:12 | XMS_ITS | Encounter Summary ---
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 Not on file Not on file documented as of this encounter Plan of Treatment Not on file documented as of this encounter Visit Diagnoses Not on filedocumented in this encounter Additional Health Concerns Assessment Noted Time PHQ-9 Depression Total Score: 3 04/30/20 23 9:17 AM EST documented as of this encounter Care Teams Methods Engineer Relationship Specialty Start Date End Date Emilie Davis MD [address] [place] [address] PCP - General Family Medicine 05/13/18 Morales Echavarria FNP [address] [place] [address] Nurse Practitioner Family Medicine 04/16/23August [address] [place] [address] [place] [address] Gastroenterology 05/26/24 Fred Castanon [address] [place] [id number] 07/21/24 documented as of this encounter
--- OUTSIDE RECORDS SUMMARY | 2024-09-22 10:12 | XMS_ITS | Encounter Summary ---
Author Organization [facility] Address [address] [facility] 7t [place] [address] Care Team Providers Care Anodiser Name Role Phone Emilie Davis MD Primary Care Provider [phone]- [phone] Morales Echavarria Unavailable Unavailable August Unavailable Fred Castanon Unavailable Encounter Details Date Type Department Care Team (Late st Contact Info) Description 11/28/2022 Abstract [facility] [address] [place] [address] Emilie Davis MD [address] [place] [address] Social History Tobacco Use Types Packs/Day Years [...] Noted Time PHQ-9 Depression Total Score: 19 10/11/ 023 9:24 AM EDT documented as of this encounter Care Teams Anodiser Relationship Specialty Start Date End Date Emilie Davis MD [address] [place] [address] PCP - General Family Medicine 05/13/18 Morales Echavarria FNP [address] [place] [address] Nurse Practitioner Family Medicine 04/16/23 Pam Aida [address] [address] Gastroenterology 05/26/24 Fred Castanon [address] [place] [phone] 07/21/24 documented as of this encounter
--- OUTSIDE RECORDS SUMMARY | 2024-09-22 10:12 | XMS_ITS | Encounter Summary ---
Author Organization [facility] Address [address] [facility] 7t [place] [address] Care Team Providers Care Insurance Verification Representative Name Role Phone Emilie Davis MD Primary Care Provider [phone]- [phone] Morales Echavarria Unavailable Unavailable August Unavailable Fred Castanon Unavailable Reason for Visit * Reason Comments Med Refill Encounter Details Date Type Department Care Team (Late st Contact Info) Description 01/01/2023 Refill [facility] [address] [place] [address] Emilie Davis MD [address] [place] [address] Social History Tobacco Use Types Packs/Day Years [...] 8:54 AM EDT T/C to patient via medical support specialist regarding x-ray result. No answer, message left [...] documented as of this encounter Care Teams Insurance Verification Representative Relationship Specialty Start Date End Date Emilie Davis MD [address] [place] [id number] PCP - General Family Medicine 05/13/18 Morales Echavarria FNP [address] [place] [address] Nurse Practitioner Family Medicine 04/16/23August [address] [place] [address] Gastroenterology 05/26/24 Fred Castanon [address] [place] [phone] 07/21/24 documented as of this encounter
[2024-09-22 13:02] LABS: Alanine Aminotransferase 18 U/L (0-31); Alkaline Phosphatase 94 U/L (39-117); Aspartate Amino Transferase 22 U/L (5-31); Bilirubin Direct < 0.2 mg/dL (0.0-0.5); Bilirubin Total 0.2 mg/dL (0.0-1.0); Total Protein 7.5 g/dL (6.5-8.0)
[2024-09-22 13:15] LABS: CT PCR NOT DETECTED (Not Detect.); NG PCR NOT DETECTED (Not Detect.)
[2024-09-24 13:13] LABS: HIV RNA PCR Qn Copies NOT DETECTED copies/mL (NOT DETECTED); HIV RNA PCR Qn Log Copies NOT DETECTED (NOT DETECTED)
== END 2024-09-22 09:35 | disposition home or self-care (01) ==
LOC: HO.HHCL 09:34
PROVIDERS: Visit Provider Family Medicine
DX: Z79.899 Other long term (current) drug therapy (principal)
CPT/HCPCS: 80076; 87491; 87536; 87591

== ENCOUNTER 2024-09-23 08:19 | Outpatient (AMB) | payer OTHER, SELFPAY ==
[2024-09-23 08:23] VITALS: BP 110/82; PULSE 72; O2SAT 96; BMI 19.6
--- NOTE | 2024-09-23 08:23 | MHC.OFFVIS ---
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: No Hotel Or Motel Cleaning Supervisor Services: Hotel Or Motel Cleaning Supervisor Offered & Declined Accompanied by: Self / Same As Patient Allergies black pepper Allergy (Severe, Verified 09/23/24 08:27) Anaphylaxis Penicillins [PENICILLINS] Allergy (Intermediate, Verified 09/23/24 08:27) HIVES,SWELLING sumatriptan [SUMATRIPTAN] Adverse Reaction (Severe, Verified 09/23/24 08:27) PT STATES HEART ATTACK Medication List - Last Reconciled 09/24/24 by TRINIDAD Rodríguez atorvastatin 40 mg PO BEDTIME baclofen 20 mg PO TID ygjixljhdm-wofsusciooqgg-yyoc 50-300-40 mg (Fioricet) 1 cap PO Q4-6H PRN cabotegravir ER (Apretude) 600 mg IM [id number] dicyclomine 10 mg PO QID loratadine 10 mg PO DAILY mirtazapine 15 mg PO BEDTIME omeprazole 20 mg PO DAILY testosterone cypionate 100 mg IM Q2W HPI Comments Details: Right-handed 54-yr-old male (born biologically female) presents for new pt evaluation of headache disorder per referral from [facility]. Pt reports he started having a new side lock left-sided headache about a year ago, which he has had a few times. However in the last month, CAD a headache attack which was much more severe and provoked him to go to the ER for evaluation. In the ER,, labs were unremarkable, head CT was unremarkable other than showing low position of cerebellar tonsils. Patient was discharged home on prn Fioricet. Patient states that he otherwise typically does not have headaches. In May 2024, he he developed a holocranial headache (different from the left-sided headache), which was attributed to elevated BP and elevated testosteone level. Thus, his testosterone was been held since May, and his BP has normalized and that headache subsided. He does also endorse a remote history of migraine, which started upon menarche- however has not had this for decades, he is status post hysterectomy. PMH and ROS are notable for:? General: Tiredness Neuro: cognitive difficulties, external spinning and not right in space dizziness. R>L rest tremor- lasts for a few seconds, started about a month ago Musculoskeletal disorders or injury: chronic neck and back and joint pain, leg cramps when standing and at night. Rheumatoid arthritis- not on DMT History of concussion/head injury: many yrs ago- without residual effect Mood d/o: Anxiety, Depression. Feeling more irritable/tinoco in the last few months. Respiratory d/o: denies asthma/copd, but recently some SOBOE CV disease: usually low BP, HLD- tx'd w/ diet Clotting or hematology d/o: denies h/o blood clots, is seeing vascular to consider surgery for LE vein repair Endocrine or metabolic d/o: cold intolerance History of seizure: seizure after . History of syncope: denies : denies GI d/o: Nausea, GERD, Constipation. 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 Has a history of smoking tobacco- stopped within the last year. Exercise:?walking, weight training Employment:?[employer] Headache questionnaire:? Age/time of onset: 1 year ago Preceding causes: Denies preceding infection, accident, travel. Previous work-up: 09/07/2024, head CT without contrast: Low position of the cerebellar tonsils/cerebellar tonsil ectopia Types of headache disorders: 1 Typical headache characteristics: Prodrome symptoms: Aura: Unsure Pain intensity: severe- patient states so severe he wants to hit his head Location, quality, characteristics: Begins as a cold pain running from the left trochlear region up over the head to the left occipital area and becomes a pressure in the left occipital, f/b a stabbing left eye pain. Associated symptoms: blurry vision, swirling and colorful spots and lines, photophobia, osmophobia, N/V, dizziness, left eyelid droop, sweating, restlessness, wanting to hit his head. Postdrome: residual left occipital cold running pain, bilateral temples Triggers: stress Time of day: in the middle of the night, only one occurred during the day. Duration and Frequency: 30-60 minutes How does headache impact your life? During headache patient can not do any usual activities Current acute medication use/interventions: OTC analgesics ineffective Current preventative medication use: None Current non-pharmacological interventions: None [facility] Medical History (Updated 09/24/24 @ 21:29 by TRINIDAD Rodríguez) Chronic, continuous use of opioids Chronic GERD Abdominal pain Palpitations Hypotension History of palpitations Dysphagia Disc degeneration, lumbar Spondylosis of lumbar spine Depression Past heart attack Hyperlipemia Erosive osteoarthritis of hands, bilateral Arthritis GERD (gastroesophageal reflux disease) Hypertension Surgical History History of cholecystectomy Hx of colonoscopy History of esophagogastroduodenoscopy (EGD) H/O bilateral mastectomy H/O: hysterectomy Family History Mother Hypertension Breast cancer Maternal Grandmother Myocardial infarct Skin cancer Sister Heart problem Breast cancer Family/Other Esophageal cancer Social History Alcohol intake: never Patient Tobacco Use Status: Former Tobacco user Substance Use Type: Marijuana Physical Exam Vital Signs: Last Vital Signs Pulse 72 09/23/24 08:23 BP 110/82 09/23/24 08:23 Pulse Ox 96 09/23/24 08:23 Oxygen Delivery Method Room Air 09/23/24 08:23 BMI result Body Mass Index 19.6 Const General: no acute distress Orientation/consciousness: patient oriented x3 HEENT Other: Mallampati stage Resp Effort & Inspection: normal respiratory effort and able to speak in complete sentences Cardio Rate: regular rate Rhythm: regular rhythm Neuro Other: EOM intact but elicits dizziness sensation. Palpable tenderness in left trochlear notch, supraorbital notch, in both left greater and lesser occipital nerve distribution. Bilateral posterior cervical tightness Bilateral Spurling old discomfort from left neck radiating up through occipital region Mild bilateral TMJ tightness without crepitus or disc displacement Signs of lower frontal teeth wearing Mallampati stage IV Sways on Romberg, but no loss of balance. RUE mild postural tremor, more so on wean beat position. Bilateral hands multiple arthritic nodules and deformities. General: patient oriented x3 Cranial nerves: Yes CN's II-XII intact bilaterally Cognition (Neuro): normal cognition Gait exam (Neuro): Normal gait present Motor exam (neuro): 5/5 motor strength present throughout Deep tendon reflexes (DTR's): Right triceps reflex intensity grade: 2+, Left triceps reflex intensity grade: 2+, Rt Biceps (C5, C6): 2+, Left biceps reflex intensity grade: 2+, Right brachioradialis reflex intensity grade: 2+, Left brachioradialis reflex intensity grade: 2+, Right patellar reflex intensity grade: 2+ and Left patellar reflex intensity grade: 2+ Coordination: yakqva-pq-fywa test normal and tandem gait normal Pupils: Normal pupillary reactivity/response: bilateral Psych Appearance: grossly normal Mental Status: mental status grossly normal Speech and movement: Clear speech present Affect: normal affect Attitude: cooperative Thought process: Normal thought process present Assessment & Plan Assessment & Plan (1) Cluster headache: Code(s): G44.009 - Cluster headache syndrome, unspecified, not intractable Category: Medical Qualifiers: Headache chronicity pattern: episodic headache Intractability: not intractable Qualified Code(s): G44.019 - Episodic cluster headache, not intractable (2) Occipital neuralgia of left side: Code(s): M54.81 - Occipital neuralgia Category: Medical (3) Arthritis: Code(s): M19.90 - Unspecified osteoarthritis, unspecified site Category: Medical (4) New onset headache: Code(s): R51.9 - Headache, unspecified Category: Medical (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 Category: Medical (6) Snoring: Code(s): R06.83 - Snoring Category: Medical (7) Sleep difficulties: Code(s): G47.9 - Sleep disorder, unspecified Category: Medical (8) Excessive daytime sleepiness: Comment: ESS 10 Code(s): G47.19 - Other hypersomnia Category: Medical Plan As patient has new onset left-sided side locked headache with autonomic features suggestive of cluster headache phenotype in setting of low cerebellar tonsil seen on recent head CT, it is imperative to assess for secondary mimics/etiologies such as metabolic/hormonal dysfunction, posterior fossa processes, vascular processes, inflammatory process, sleep dysfunction, thus patient is advised to undergo: Lab workup XR C-spine with flexion and extension Brain MRI with and without contrast MR venogram with and without contrast, including MR angiogram without contrast HST to assess for sleep apnea For overall headache management: Optimize good self-care, including but not limited to maintaining a healthy diet, adequate fluid intake, adequate sleep, and engaging in regular physical activity. Track headaches, especially after any treatment regimen changes. Sparks is one of many headache tracking apps. For acute headache treatment: Discussed importance of taking acute medications at the first sign of headache, however stressed importance of avoiding acute medication overuse (especially with combined headache medications). Start home O2 at 15-25 L/min via non-rebreather facemask x's 15-20 minutes at onset of cluster headache attack. ?Patient will require both M tanks and E tanks. Trial Naratriptan 2.5mg tab, 1/2 - 1 tab (1.25-2.5mg) at onset of headache, may repeat in 4 hours. Max of 2 tabs (5mg) per 24 hours. May adjunct with OTC Tylenol 650mg every 4 hours, Ibuprofen (liquigel) 600mg every 6 hours, or Naproxen (liquigel) 440mg every 12 hrs as needed. Potential adverse effects of triptans, include but are not limited to nausea, fatigue, chest tightness/tingling (usually passes within a few minutes), medication overuse headaches. Previous acute headache medication trials: Sumatriptan- cause chest palpitations. Acute migraine headache contraindications: None at this time For headache prevention medication: Start magnesium oxide 400 mg daily at bedtime Previous prevention medication trials: None Headache prevention medication contraindications: Caution with calcium channel blockers due to prone to hypotension. Future considerations: Emgality 300 mg monthly. Pt seen in collaboration w/ Dr Eli Smith. Will follow-up upon review of above and patient to follow-up in clinic in 3 months or sooner prn. Orders: Orders MR cervical spine wo con 09/24/24 E78.5 - Hyperlipidemia, unspecified, G44.009 - Cluster headache syndrome, unspecified, not intractable, I10 - Essential (primary) hypertension, M19.90 - Unspecified osteoarthritis, unspecified site, M54.81 - Occipital neuralgia, Q04.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, R51.9 - Headache, unspecified MR venography head wo/w con 09/24/24 E78.5 - Hyperlipidemia, unspecified, G44.009 - Cluster headache syndrome, unspecified, not intractable, I10 - Essential (primary) hypertension, M19.90 - Unspecified osteoarthritis, unspecified site, 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.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, R51.9 - Headache, unspecified CRISTEL Reflex Titer and Pattern 09/24/24 E78.5 - Hyperlipidemia, unspecified, F32.A - Depression, unspecified, I10 - Essential (primary) hypertension, I25.10 - Atherosclerotic heart disease of [place] coronary artery without angina pectoris, M15.4 - Erosive (osteo)arthritis, R06.09 - Other forms of dyspnea, R51.9 - Headache, unspecified Erythrocyte Sedimentation Rate 09/24/24 E78.5 - Hyperlipidemia, unspecified, F32.A - Depression, unspecified, I10 - Essential (primary) hypertension, I25.10 - Atherosclerotic heart disease of [place] coronary artery without angina pectoris, M15.4 - Erosive (osteo)arthritis, R06.09 - Other forms of dyspnea, R51.9 - Headache, unspecified CRP High Sensitivity 09/24/24 E78.5 - Hyperlipidemia, unspecified, F32.A - Depression, unspecified, I10 - Essential (primary) hypertension, I25.10 - Atherosclerotic heart disease of [place] coronary artery without angina pectoris, M15.4 - Erosive (osteo)arthritis, R06.09 - Other forms of dyspnea, R51.9 - Headache, unspecified Vitamin B12 and Folate 09/24/24 E78.5 - Hyperlipidemia, unspecified, F32.A - Depression, unspecified, I10 - Essential (primary) hypertension, I25.10 - Atherosclerotic heart disease of [place] coronary artery without angina pectoris, M15.4 - Erosive (osteo)arthritis, R06.09 - Other forms of dyspnea, R51.9 - Headache, unspecified Vitamin D 25-OH (D2 and D3) 09/24/24 E78.5 - Hyperlipidemia, unspecified, F32.A - Depression, unspecified, I10 - Essential (primary) hypertension, I25.10 - Atherosclerotic heart disease of [place] coronary artery without angina pectoris, M15.4 - Erosive (osteo)arthritis, R06.09 - Other forms of dyspnea, R51.9 - Headache, unspecified Testosterone, Free/Total 09/24/24 E78.5 - Hyperlipidemia, unspecified, F32.A - Depression, unspecified, I10 - Essential (primary) hypertension, I25.10 - Atherosclerotic heart disease of [place] coronary artery without angina pectoris, M15.4 - Erosive (osteo)arthritis, R06.09 - Other forms of dyspnea, R51.9 - Headache, unspecified MR head/brain wo/w con 09/24/24 E78.5 - Hyperlipidemia, unspecified, G44.009 - Cluster headache syndrome, unspecified, not intractable, I10 - Essential (primary) hypertension, M19.90 - Unspecified osteoarthritis, unspecified site, 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.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, R51.9 - Headache, unspecified XR cervical spine w flex/ext 09/24/24 G44.009 - Cluster headache syndrome, unspecified, not intractable, M54.2 - Cervicalgia, M54.81 - Occipital neuralgia RT home sleep study 09/24/24 G47.19 - Other hypersomnia, G47.9 - Sleep disorder, unspecified, R06.83 - Snoring, R51.9 - Headache, unspecified Rheumatoid Factor 09/24/24 E78.5 - Hyperlipidemia, unspecified, F32.A - Depression, unspecified, I10 - Essential (primary) hypertension, I25.10 - Atherosclerotic heart disease of [place] coronary artery without angina pectoris, M15.4 - Erosive (osteo)arthritis, R06.09 - Other forms of dyspnea, R51.9 - Headache, unspecified TSH reflex Free T4 09/24/24 E78.5 - Hyperlipidemia, unspecified, F32.A - Depression, unspecified, I10 - Essential (primary) hypertension, I25.10 - Atherosclerotic heart disease of [place] coronary artery without angina pectoris, M15.4 - Erosive (osteo)arthritis, R06.09 - Other forms of dyspnea, R51.9 - Headache, unspecified C Reactive Protein 09/24/24 E78.5 - Hyperlipidemia, unspecified, F32.A - Depression, unspecified, I10 - Essential (primary) hypertension, I25.10 - Atherosclerotic heart disease of [place] coronary artery without angina pectoris, M15.4 - Erosive (osteo)arthritis, R06.09 - Other forms of dyspnea, R51.9 - Headache, unspecified Lyme IgG/IgM w/reflex to WB 09/24/24 E78.5 - Hyperlipidemia, unspecified, F32.A - Depression, unspecified, I10 - Essential (primary) hypertension, I25.10 - Atherosclerotic heart disease of [place] coronary artery without angina pectoris, M15.4 - Erosive (osteo)arthritis, R06.09 - Other forms of dyspnea, R51.9 - Headache, unspecified Hemoglobin A1c 09/24/24 E78.5 - Hyperlipidemia, unspecified, F32.A - Depression, unspecified, I10 - Essential (primary) hypertension, I25.10 - Atherosclerotic heart disease of [place] coronary artery without angina pectoris, M15.4 - Erosive (osteo)arthritis, R06.09 - Other forms of dyspnea, R51.9 - Headache, unspecified Medications: New naratriptan take 1/2 - 1 tab at onset of headache; if no relief may repeat 1 tab after at least 4 hrs; max = 2 tabs/24 hrs orally PRN; 30 days 12 tabs 6RF migraine headache Oxygen Home Use Start home O2 at 15-25 L/min via non-rebreather facemask x's 15-20 minutes at onset of cluster headache attack. Patient will require both M tanks and E tanks. 3 ea 0RF G44.009 - Cluster headache syndrome, unspecified, not intractable Oxygen Home Use Start home O2 at 15-25 L/min via non-rebreather facemask x's 15-20 minutes at onset of cluster headache attack. Patient will require both M tanks and E tanks. 3 ea 0RF G44.009 - Cluster headache syndrome, unspecified, not intractable magnesium oxide may hold for loose stools 400 mg PO BEDTIME 30 days 30 tabs 6RF Coding Level of Care Code New Pt Level 4 (83746) Diagnoses Episodic cluster headache, not intractable G44.019 Headache chronicity pattern: episodic headache Intractability: not intractable Occipital neuralgia of left side M54.81 Arthritis M19.90 New onset headache R51.9 Cerebellar tonsillar ectopia Q04.8 Snoring R06.83 Sleep difficulties G47.9 Excessive daytime sleepiness G47.19
--- OUTSIDE RECORDS SUMMARY | 2024-09-23 08:29 | XMS_ITS | Encounter Summary ---
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 GONORRHOEAE RNA, TMA, UROGENITAL Routine 09/22/2024 9:36 AM EDT HEPATIC FUNCTION PANEL Routine 09/22/2024 9:36 AM EDT documented in this encounter Results * Chlamydia/N. Gonorrhoeae RNA, TMA, Urogenitial (09/22/2024 9:36 AM EDT) CT PCR NOT DETECTED Not Detect. [facility] Comment:A not detected test result does not exclude the possibilityof infection because test results can be affected byimproper specimen collection, concurrent antibiotic therapy,or the number of organisms in the specimen which may bebelow the sensitivity of the test. As with many diagnostictests, results from the Xpert CT/NG assay should beinterpreted in conjunction with other laboratory andclinical data available to the clinician.Xpert CT/NG performance has not been evaluated in patientsless than 14 years of age. The assay should not be used forthe evaluationof suspected sexual abuse or for other medico-legalindications. Additional testing is recommended in anycircumstance when false positive or false negative resultscould lead to adverse medical, social or psychologicalconsequences. NG PCR NOT DETECTED Not Detect. [facility] Comment:A not detected test result does not exclude the possibilityof infection because test results can be affected byimproper specimen collection, concurrent antibiotic therapy,or the number of organisms in the specimen which may bebelow the sensitivity of the test. As with many diagnostictests, results from the Xpert CT/NG assay should beinterpreted in conjunction with other laboratory andclinical data available to the clinician.Xpert CT/NG performance has not been evaluated in patientsless than 14 years of age. The assay should not be used forthe evaluationof suspected sexual abuse or for other medico-legalindications. Additional testing is recommended in anycircumstance when false positive or false negative resultscould lead to adverse medical, social or psychologicalconsequences. 09/22/2024 9:36 AM EDT 09/22/2024 11:22 AM EDT Narrative [facility] - 09/22/2024 1:15 PM EDT Urine us Emilie Davis MD LAB MICROBIOLOGY - GENERAL ORDERABLES Final Result [facility] [address] [place] [phone] * Hepatic Function Panel (09/22/2024 9:36 AM EDT) Bilirubin, Total 0.2 0.0 - 1.0 mg/dL [facility] Bilirubin, Direct <0.2 0.0 - 0.5 mg/dL [facility] Aspartate Amino Transferase 22 5 - 31 U/L [facility] Alanine Aminotransferase 18 0 - 31 U/L [facility] Total Protein 7.5 6.5 - 8.0 g/dL [facility] Albumin Level 4.0 3.5 - 5.0 g/dL [facility] Alkaline Phosphatase 94 39 - 117 U/L [facility] 09/22/2024 9:36 AM EDT 09/22/2024 11:23 AM EDT us Emilie Davis MD LAB BLOOD ORDERABLES Final Result [facility] [address] [place] [address] [phone] documented in this encounter Visit Diagnoses Not on filedocumented in this encounter Additional Health Concerns Assessment Noted Time PHQ-9 Depression Total Score: 3 04/30/20 9:17 AM EST documented as of this encounter Care Teams Photo Mask Inspector Relationship Specialty Start Date End Date Emilie Davis MD [address] [place] [address] PCP - General Family Medicine 05/13/18 Morales Echavarria FNP [address] [place] [address] Nurse Practitioner Family Medicine 04/16/23Orozco, Aida [address] [place] [address] Gastroenterology 05/26/24 Fred Castanon [address] [place] [address] 07/21/24 documented as of this encounter
--- OUTSIDE RECORDS SUMMARY | 2024-09-23 08:29 | XMS_ITS | Encounter Summary ---
Author Organization [employer] [facility] Address [address] [facility] 7t [place] [address] Care Team Providers Care Chemical Sales Representative Name Role Phone Emilie Davis MD Primary Care Provider +1- [phone] Morales Echavarria SPECIAL EFFECTS TECHNICIAN Unavailable Unavailable August Unavailable Fred Castanon Unavailable Reason for Visit * Reason Onset Date Comments Referral 07/18/2022 Encounter Details Date Type Department Care Team (Late st Contact Info) Description 07/18/2022 Telephone [facility] MEDICINE [address] [place] [address] Emilie Davis MD [address] [place] [address] Referral Social History Tobacco Use Types Packs/Day [...] [facility]. Please contact pt [phone] documented in this encounter Plan of Treatment Upcoming Encounters Date Type Department Care Team (Late st Contact Info) Description 11/16/2024 1:00 PM EDT Clinical Support [facility] MEDICINE [address] [place] [address] Medina Lewis, RN [address] [place] [address] documented as of this encounter Visit Diagnoses Not on filedocumented in this encounter Care Teams Chemical Sales Representative Relationship Specialty Start Date End Date Emilie Davis MD [address] [place] [address] PCP - General Family Medicine 05/13/18 Morales Echavarria FNP [address] [place] [address] Nurse Practitioner Family Medicine 04/16/23 Aida Orozco [address] [place] [address] 3rd [place] [address] Gastroenterology 05/26/24 Fred Castanon [address] [place] [address] 07/21/24 documented as of this encounter
--- OUTSIDE RECORDS SUMMARY | 2024-09-23 08:29 | XMS_ITS | Encounter Summary ---
Author Organization [employer] Address [address] [facility] 7t [place] [address] Care Team Providers Care Counter Attendant Name Role Phone Emilie Davis MD Primary Care Provider +1- [phone] Morales Echavarria ORTHOTIC FITTER Unavailable Unavailable August Unavailable Fred Castanon Unavailable Encounter Details Date Type Department Care Team (Late st Contact Info) Description 04/22/2022 Orders Only [facility] MED & PEDS [address] [place], [place] [phone] Emilie Davis MD [address], [place] [phone] HSV (herpes simplex virus) anogenital infection (Primary [...] Description 11/16/2024 1:00 PM EDT Clinical Support [facility] MEDICINE [address] [place], [place] [phone] Medina Lewis, RONALD [address] [place] [address] documented as of this encounter Visit Diagnoses Diagnosis HSV (herpes simplex virus) anogenital infection- Primary Herpes simplex without mention of complication documented in this encounter Care Teams Counter Attendant Relationship Specialty Start Date End Date Emilie Davis MD [address] [place] [address] PCP - General Family Medicine 05/13/18 Morales Echavarria FNP [address] [place] [address] Nurse Practitioner Family Medicine 04/16/23 Aida Orozco [address] [place] [address] Gastroenterology 05/26/24 Fred Castanon [address] [place] [address] 07/21/24 documented as of this encounter
--- OUTSIDE RECORDS SUMMARY | 2024-09-23 08:29 | XMS_ITS | Encounter Summary ---
Author Organization [employer] [facility] Address [address] [facility] 7t [place] [address] Care Team Providers Care Mobility Architect Name Role Phone Emilie Davis MD Primary Care Provider +1- [phone] Morales Echavarria MANAGER CASH Unavailable Unavailable August Unavailable Fred Castanon Unavailable Encounter Details Date Type Department Care Team (Late st Contact Info) Description 05/27/2022 Abstract [facility] MEDICINE [address] [place] [address] [phone] Emilie Davis MD [address] [place] [address] [phone] Social History Tobacco Use Types Packs/Day Years [...] Description 11/16/2024 1:00 PM EDT Clinical Support [facility] MEDICINE [address] [place] [address] [phone] Medina Lewis, RONALD [address] [place], [place] [phone] documented as of this encounter Procedures Procedure [...] ORDERABLES F inal Result Performing Organization Address [facility]/ZIP Co de Phone Number [facility] [address] [place] [address] [phone] documented in this encounter Visit Diagnoses Not on filedocumented in this encounter Care Teams Mobility Architect Relationship Specialty Start Date End Date Ryan, MD Emilie [address] [place] [address] PCP - General Family Medicine 05/13/18 Morales Echavarria FNP [address] [place] [address] Nurse Practitioner Family Medicine 04/16/23 Pam Aida [address] [place] [address] [place] [address] Gastroenterology 05/26/24 Fred Castanon [address] [place] [address] [place] [address] 07/21/24 documented as of this encounter
--- OUTSIDE RECORDS SUMMARY | 2024-09-23 08:29 | XMS_ITS | Encounter Summary ---
Author Organization [employer] Address [address] 7t [place] [address] Care Team Providers Care Caterpillar Tractor Operator Name Role Phone Emilie Davis MD Primary Care Provider +1- [phone] Morales Echavarria Unavailable Unavailable August Unavailable Fred Castanon Unavailable Encounter Details Date Type Department Care Team (Late st Contact Info) Description 03/25/2023 Orders Only [facility] MEDICINE [address] [place] [address] Emilie Davis MD [address] [place] [address] Social History Tobacco Use Types Packs/Day Years [...] Description 11/16/2024 1:00 PM EDT Clinical Support [facility] MEDICINE [address] [place] [address] Medina Lewis RN [address] [place] [address] documented as of this encounter Visit Diagnoses Not on filedocumented in this encounter Additional Health Concerns Assessment Noted Time PHQ-9 Depression Total Score: 10 023 9:08 AM EDT documented as of this encounter Care Teams Caterpillar Tractor Operator Relationship Specialty Start Date End Date Emilie Davis MD [address] [place] [address] PCP - General Family Medicine 05/13/18 Morales Echavarria FNP [address] [place] [address] Nurse Practitioner Family Medicine 04/16/23August [address] [place] [address] 3[address] [place] [address] Gastroenterology 05/26/24 Fred Castanon [address] [place] [address] 07/21/24 documented as of this encounter
--- OUTSIDE RECORDS SUMMARY | 2024-09-23 08:29 | XMS_ITS | Encounter Summary ---
Author Organization [facility] Address [address] [facility] 7t [place] [address] Care Team Providers Care Laundry Machine Tender Name Role Phone Emilie Davis MD Primary Care Provider +- [phone] Morales Echavarria KILN WORKER Unavailable Unavailable August Unavailable Fred Castanon Unavailable Reason for Visit * Reason Comments Med Refill Encounter Details Date Type Department Care Team (Late st Contact Info) Description 06/27/2022 Refill [facility] MEDICINE [address] [place] [address] Emilie Davis MD [address] [place] [address] Social History Tobacco Use Types Packs/Day Years [...] Description 11/16/2024 1:00 PM EDT Clinical Support [facility] MEDICINE [address] [place] [address] [phone] Medina Lewis, RONALD [address] [place] [address] documented as of this encounter Visit Diagnoses Not on filedocumented in this encounter Care Teams Laundry Machine Tender Relationship Specialty Start Date End Date Emilie Davis MD [address] [place] [address] PCP - General Family Medicine 05/13/18 Morales Echavarria FNP [address] [place] [address] Nurse Practitioner Family Medicine 04/16/23 Aida Orozco [address] [address] Gastroenterology 05/26/24 Fred Castanon [address] [place] [address] 07/21/24 documented as of this encounter
--- OUTSIDE RECORDS SUMMARY | 2024-09-23 08:30 | XMS_ITS | Encounter Summary ---
Author Organization [employer] Address [address] [facility] [address] 7t [place] [address] Care Team Providers Care Food Products Tester Name Role Phone [place], Emilie MARISCAL Primary Care Provider +1- [phone] Morales Echavarria Unavailable Unavailable August Unavailable Fred Castanon Unavailable Encounter Details Date Type Department Care Team (Latest Contact Info) Description 09/22/2024 9:00 AM EDT Clinical Support [facility] MEDICINE [address] [place] [address] Medina Lewis, RONALD [address] [place] [address] On pre-exposure prophylaxis for HIV Social History [...] 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 Reports had R [...] after first injection, then annually: next due 09/22/25 Appointment for 2nd month of injections (1 month and then every 2 mos thereafter w/ 7d russell period): 11/16/24 @1PM documented in this encounter Plan of Treatment Upcoming Encounters Date Type Department Care Team (Late st Contact Info) Description 11/16/2024 1:00 PM EDT Clinical Support [facility] MEDICINE [address] [place] [address] Medina Lewis, RN [address] [place] [address] Scheduled Orders Name Type Priority Associated Diagnoses [...] 09/22/2024 10:1 0 AM EDT Narrative Medina Lewis, RONALD - 09/22/2024 10:10 AM EDT NEGATIVE Nahun [...] documented as of this encounter Care Teams Food Products Tester Relationship Specialty Start Date End Date Emilie Davis MD [address] [place] [address] PCP - General Family Medicine 05/13/18 Morales Echavarria FNP [address] [place] [address] Nurse Practitioner Family Medicine 04/16/23August [address] [place] [address] Gastroenterology 05/26/24 Fred Castanon [address] [place] [address] 07/21/24 documented as of this encounter
--- OUTSIDE RECORDS SUMMARY | 2024-09-23 08:30 | XMS_ITS | Continuity of Care Document ---
Author Organization [facility] Address [address] [place] [address] [address] [place] [phone] Phone Care Team Providers Care Criminal Justice Faculty Name Role Phone Josue MARISCAL, KATHY, Manish [...] Mi- [place] & [place] [facility], [address] [place] [address] Dr [address], [id number], [place] tel:[phone] CVR - MD - [place] Chronic venous hypertension (idiopathic) without complications of bilateral lower extremityRestle ss legs syndromePruritu s, unspecifiedPain in left legCramp and spasmLocalized edema 5 Josue MARISCAL, KATHY, ANDRE [place]. [address] [facility], [address], [place], [place], [id number] , [place]. tel:[phone] Referring Provider: Emilie Way, [address] [facility], [place], [address]. tel:[phone] [facility], [address], [id number], [place] tel:[phone] CVR - MD - [place] Varicose veins of bilateral lower extremities with pain Josue MARISCAL, RVT, RPVI Manish. [address] [facility], [address], [facility] [place], [id number] , [place]. tel:[phone] Referring Provider: Emilie Way, [address] [place] [address], [place], [address]. tel:[phone] Family History Family Member Type Diagnosis Age At Onset No Information Payers Payer name Insurance type Covered libertarian ID Authormartina patricia(s) [facility] [employer] CI [id number] Social History Type Description Quantity Date Captured [...] Information Instructions Date Instruction Additional Infor mation Pre and post instruc tions reviewed and provided Related to Chronic venous hypertension (idiopathic) without complications of bilateral lower extremity Patient education booklet given Related to Chronic venous hypertension (idiopathic) without complications of bilateral lower extremity Lifestyle education Giving Encouragement to exercise Diet education Assessments Type Assessment Date assessment Localized edema assessment Cramp and spasm assessment Pain in left leg assessment Pruritus, unspecified assessment Chronic venous hyper tension (idiopathic) without complications of bilateral lower extremity assessment Restless legs syndrome Patient Care Teams Name Effective Dates (start - stop) Status Members No Information
--- OUTSIDE RECORDS SUMMARY | 2024-09-23 08:30 | XMS_ITS | Encounter Summary ---
Author Organization [employer] [facility] Address [address] [facility] 7t [place] [address] Care Team Providers Care Commercial Artist Lettering Name Role Phone Emilie Davis MD Primary Care Provider +1- [phone] Morales Echavarria Unavailable Unavailable August Unavailable Fred Castanon Unavailable Reason for Visit * Reason Comments Med Refill Encounter Details Date Type Department Care Team (Late st Contact Info) Description 01/01/2023 Refill [facility] MEDICINE [address] [place] [address] Emilie Davis MD 230 [place] [address] Social History Tobacco Use Types Packs/Day Years [...] 8:54 AM EDT T/C to patient via cow rider regarding x-ray result. No answer, message left [...] Description 11/16/2024 1:00 PM EDT Clinical Support [facility] MEDICINE [address] [place] [address] Medina Lewis, RONALD [address] [place] [address] documented as of this encounter Visit Diagnoses Not on filedocumented in this encounter Additional Health Concerns Assessment Noted Time PHQ-9 Depression Total Score: 19 023 9:24 AM EDT documented as of this encounter Care Teams Commercial Artist Lettering Relationship Specialty Start Date End Date Emilie Davis MD [address] [place] [address] PCP - General Family Medicine 05/13/18 Morales Echavarria FNP [address] [place] [address] Nurse Practitioner Family Medicine 04/16/23August [address] [place] [address] Gastroenterology 05/26/24 Fred Castanon [address] [place] [address] 07/21/24 documented as of this encounter
--- OUTSIDE RECORDS SUMMARY | 2024-09-23 08:30 | XMS_ITS | Encounter Summary ---
Author Organization [employer] Address [address] [facility] [address] 7t [place] [address] Care Team Providers Care Mcat Instructor Name Role Phone Emilie Davis MD Primary Care Provider +1- [phone] Morales Echavarria PARACHUTE FOLDER Unavailable Unavailable August Unavailable Fred Castanon Unavailable Reason for Visit * Reason Onset Date Comments Referral 07/20/2024 Encounter Details Date Type Department Care Team (Late st Contact Info) Description 07/20/2024 Telephone [facility] MEDICINE [address] [place] [address] Emilie Davis MD [address] [place] [address] Referral Social History Tobacco Use Types Packs/Day [...] 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 Contact pt at [phone] documented in this encounter Plan of Treatment Upcoming Encounters Date Type Department Care Team (Late st Contact Info) Description 11/16/2024 1:00 PM EDT Clinical Support [facility] MEDICINE [address] [place] [address] Medina Lewis, RONALD [address] [place] [address] documented as of this encounter Visit Diagnoses Not on filedocumented in this encounter Additional Health Concerns Assessment Noted Time PHQ-9 Depression Total Score: 3 04/30/20 23 9:17 AM EST documented as of this encounter Care Teams Mcat Instructor Relationship Specialty Start Date End Date Emilie Davis MD [address] [place] [address] PCP - General Family Medicine 05/13/18 Morales Echavarria FNP [address] [place] [address] Nurse Practitioner Family Medicine 04/16/23 [facility] [address] [address] Gastroenterology 05/26/24 Fred Castanon [address] [place] [address] 07/21/24 documented as of this encounter
--- OUTSIDE RECORDS SUMMARY | 2024-09-23 08:30 | XMS_ITS | Encounter Summary ---
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 Not on file Not on file documented as of this encounter Plan of Treatment Upcoming Encounters Date Type Department Care Team (Late st Contact Info) Description 11/16/2024 1:00 PM EDT Clinical Support [facility] MEDICINE [address] [place] [address] Medina Lewis, RONALD [address] [place] [address] documented as of this encounter Visit Diagnoses Not on filedocumented in this encounter Additional Health Concerns Assessment Noted Time PHQ-9 Depression Total Score: 3 04/30/20 23 9:17 AM EST documented as of this encounter Care Teams Painter And Decorator Relationship Specialty Start Date End Date Emilie Davis MD [address] [place] [address] PCP - General Family Medicine 05/13/18 Morales Echavarria FNP [address] [place] [address] Nurse Practitioner Family Medicine 04/16/[address] [place] [address] Gastroenterology 05/26/24 Fred Castanon [address] [place] [address] [place] [address] 07/21/24 documented as of this encounter
--- OUTSIDE RECORDS SUMMARY | 2024-09-23 08:30 | XMS_ITS | Encounter Summary ---
Author Organization [employer] [facility] Address [address] [facility] 7t [place] [address] Care Team Providers Care Video Game Programmer Name Role Phone Emilie Davis MD Primary Care Provider +1- [phone] Morales Echavarria CABLE INSTALLATION TECHNICIAN Unavailable Unavailable August Unavailable Fred Castanon Unavailable Encounter Details Date Type Department Care Team (Late Contact Info) Description 11/28/2022 Abstract [facility] MEDICINE [address] [place] [address] Emilie Davis MD 230 [place] [address] Social History Tobacco Use Types Packs/Day Years [...] Department Care Team (Late Contact Info) Description 11/16/2024 1:00 PM EDT Clinical Support [facility] MEDICINE [address] [place] [address] Medina Lewis RN [address] [place] [address] documented as of this encounter Visit Diagnoses Not on filedocumented in this encounter Additional Health Concerns Assessment Noted Time PHQ-9 Depression Total Score: 19 023 9:24 AM EDT documented as of this encounter Care Teams Video Game Programmer Relationship Specialty Start Date End Date Emilie Davis MD [address] [place] [address] PCP - General Family Medicine 05/13/18 Morales Echavarria FNP [address] [place] [address] Nurse Practitioner Family Medicine 04/16/23 Aida Orozco [address] [address] Gastroenterology 05/26/24 Fred Castanon [address] [place] [address] 07/21/24 documented as of this encounter
--- OUTSIDE RECORDS SUMMARY | 2024-09-23 08:30 | XMS_ITS | Clinical Summary ---
Author Organization [employer] Address [address] [facility] [address] [place] [address] Care Team Providers Care Engineer Exhauster Name Role Phone RyanEmilie moreira MD Primary Care Provider [phone] Morales Echavarria Unavailable Unavailable August Unavailable Fred Castanon Unavailable Allergies Active Allergy Reactions Criticality Noted Date Comments Penicillins Anaphylaxis,Rash High 05/16/2017 Sumatriptan 10/28/2018 Medications * This document contains information received from the source organization and may not represent a complete record from that organization. Needle, Disp, (BD Disp Notrees) 25G X 5/8 miscIndication s:Gender dysphoria in [...] XR 05/20/24 Coronary artery disease invo lving eklutna heart without angina pectoris 05/20/2024 Acquired syphilis 03/23/2024 Overview (03/23/2024): Lab Results Component Value Date SYPHILISSCRE Reactive (A) 03/18/2024 TREPPALAB Reactive (A) 03/18/2024 RPRQUANT Non-Reactive 03/18/2024 -[facility] regarding need for testing 03/23/24 -pt allergic [...] care facilitated by Alessio. -dental home is [facility] -health care proxy filed 03/16/24 Assessment & Plan (03/17/2024 6:12 AM EST): -next physical exam due after 03/16/2025 -eye care facilitated by Alessio. -dental home is [facility] -health care proxy filed 03/16/24 Assessment & Plan (03/22/2023 9:17 AM EST): -next physical exam due after 12/07/2023. -eye care facilitated by Alessio. -dental home is outside of [facility] Assessment & Plan (12/06/2022 10:19 AM EDT): -next physical exam dueafter 12/07/2023. -eye care facilitated by Alessio. -dental home is outside of [facility] Hx of hepatitis C 11/26/2022 Overview [...] rays suggests osteoarthritis. Seen by rheumatology in [place]. Ibuprofen and NSAIDs cause gastritis. Minimal relief with acetaminophen. He was referred back to rheumatology in [place] 08/23/2020 but provider left the area. started on Tramadol. Take 3 times per week. He is not taking at this time. Assessment & Plan (03/17/2024 6:08 AM EST): X rays suggests osteoarthritis. Seen by rheumatology in [place]. Ibuprofen and NSAIDs cause gastritis. Minimal relief with acetaminophen. He was referred back to rheumatology in [place] 08/23/2020 but provider left the area. started on Tramadol. Take 3 times per week. He is not taking at this time. Assessment & Plan (03/22/2023 9:15 AM EST): X rays suggests osteoarthritis. Seen by rheumatology in [place]. Ibuprofen and NSAIDs cause gastritis. Minimal relief with acetaminophen. He was referred back to rheumatology in [place] 08/23/2020 but provider left the area. started on Tramadol. Take 3 times per week. Will need COT in the future. Assessment & Plan (12/06/2022 8:54 AM EDT): X rays suggests osteoarthritis. Seen by rheumatology in [place]. Ibuprofen and NSAIDs cause gastritis. Minimal relief with acetaminophen. He was referred back to rheumatology in [place] 08/23/2020 but provider left the area. started on Tramadol. Take 3 times per week. Will need COT in the future. Assessment & Plan (10/11/2022 9:58 AM EDT): X rays suggests osteoarthritis. Seen by rheumatology in [place]. Ibuprofen and NSAIDs cause gastritis. Minimal relief with acetaminophen. He was referred back to rheumatology in [place] 08/23/2020 but provider left the area. started [...] Now with palpitations. Will refer to his delivery coordinator for bradycardia. Assessment & Plan (03/22/2023 9:16 AM EST): Sinus bradycardia and asymptomatic. Pt states he always has slow heart rate Pt repots heart rate in 40s recorded with home BP monitor with symptoms of dizziness recorded at home. Now with palpitations. Will refer to his delivery coordinator for bradycardia. Assessment & Plan (12/06/2022 8:54 AM EDT): Sinus bradycardia and asymptomatic. Pt states he always has slow heart rate Pt repots heart rate in 40s recorded with home BP monitor with symptoms of dizziness recorded at home. Now with palpitations. Will refer to his delivery coordinator for bradycardia. Assessment & Plan (10/11/2022 9:58 AM EDT): Sinus bradycardia and asymptomatic. Pt states he always has slow heart rate Pt repots heart rate in 40s recorded with home BP monitor with symptoms of dizziness recorded at home. Now with palpitations. Will refer to his delivery coordinator for bradycardia. Generalized abdominal pain 06/25/2021 Overview [...] for GI. Insurance no longer accepted at [facility]. -EGD scheduled for December 2021. Assessment [...] for GI. Insurance no longer accepted at [facility]. -EGD scheduled for December 2021. Assessment [...] for GI. Insurance no longer accepted at [facility]. -EGD scheduled for December 2021. Assessment [...] for GI. Insurance no longer accepted at [facility]. -EGD scheduled for December 2021. Assessment [...] for GI. Insurance no longer accepted at [facility]. -EGD scheduled for December 2021. 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 Pt wants to get reestablished with cardiology. 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 -He restarted testosterone 08/2020 -S/p chest reconstruction 10/2018 -Testosterone was 654 on 10/2022 Lab Results Component Value Date TESTTOTAL 1641 (A) 03/18/2024 HGB 16.2 (H) 03/18/2024 HGB 15.8 10/18/2022 HCT 47.3 (H) 03/18/2024 Goal testosterone levels 350-700ng/dl. Assessment & Plan (03/17/2024 6:12 AM EST): Pt identifies as male and is changing his name in [place] October 2020. He restarted testosterone 08/2020 S/p chest reconstruction 10/2018 Pt would like to switch small needle to subcutaneous instead. 25 gague needles sent 12/06/2022 Testosterone was 654 on 10/2022. Assessment & Plan (03/22/2023 9:16 AM EST): Pt identifies as male and is changing his name in [place] October 2020. He restarted testosterone 08/2020 S/p chest reconstruction 10/2018 Pt would like to switch small needle to subcutaneous instead. 25 gague needles sent 12/06/2022 Testosterone was 654 on 10/2022. Assessment & Plan (12/06/2022 11:18 AM EDT): Pt identifies as male and is changing his name in [place] October 2020. He restarted testosterone 08/2020 S/p chest reconstruction 10/2018 Pt would like to switch small needle to subcutaneous instead. 25 gague needles sent 12/06/2022 Testosterone was 654 on 10/2022. Assessment & Plan (10/11/2022 9:59 AM EDT): Pt identifies as male and is changing his name in [place] October 2020. He restarted testosterone 08/2020 S/p chest reconstruction 10/[address] scan, lung 10/04/2017 Overview (05/20/2024): -Ct scan in [facility] on 12/25/2017 showed multiple indeterminate nodules, [...] 11/15/23 and NO SHOW. Pt can call [phone] to schedule mariely. number given to call 03/16/24 -CT 05/08/24 No acute intrathoracic findings. Calcified granulomas present bilaterally. No suspicious pulmonary nodule identified. Air-fluid level present within the midthoracic esophagus can be associated with gastroesophageal reflux disease and esophageal dysmotility. Coronary artery atherosclerosis. Assessment & Plan (05/20/2024 4:05 PM EST): -Ct scan in [facility] on 12/25/2017 showed multiple indeterminate nodules, [...] 11/15/23 and NO SHOW. Pt can call [phone] to schedule mariely. number given to call 03/16/24 -CT 05/08/24 No acute intrathoracic findings. Calcified granulomas present bilaterally. No suspicious pulmonary nodule identified. Air-fluid level present within the midthoracic esophagus can be associated with gastroesophageal reflux disease and esophageal dysmotility. Coronary artery atherosclerosis. Assessment & Plan (03/17/2024 6:13 AM EST): -Ct scan in [place] [facility] on 12/25/2017 showed multiple indeterminate nodules, [...] 11/15/23 and NO SHOW. Pt can call [phone] to schedule mariely. number given to call 03/16/24 Assessment & Plan (03/22/2023 9:16 AM EST): -Ct scan in [place] ER on 12/25/2017 showed multiple indeterminate nodules, largest was solid and measured 2mm. -Given that the Pt has a tobacco Hx and quit in 2018 we referrred to pulmonology that was likely distrupted by the pandemic. -Will ordered repeat CT of chest to follow the nodles. Assessment & Plan (12/06/2022 10:18 AM EDT): -Ct scan in [place] ER on 12/25/2017 showed multiple indeterminate nodules, [...] referred for OP services and referral to [facility] Psychopharmacology clinic. Provided Crisis contact number [...] Description 09/22/2024 9:00 AM EDT Clinical Support [address] [address] Medina Lewis, RN On pre-exposure prophylaxis for HIV 09/22/2024 Orders Only [address] [address] Emilie Davis MD 09/22/2024 Travel 09/09/2024 Orders Only [address] [address] Emilie Davis MD Abnormal brain CT (Primary Dx) 09/09/[address] [place] [address] Emilie Davis MD Referral 09/08/[address] [address] Emilie Davis MD Nurse Triage 09/07/2024 Orders Only GENERIC EXTERNAL DATA DEPARTMENT Provider, Generic External Data 09/07/2024 Telephone [facility]ALK-[facility] [address] [address] Mike Longo MD 09/02/[address] [address] Emilie Davis MD Gender dysphoria 09/01/2024 Orders Only [address] [address] Emilie Davis MD Acute non intractable tension-type headache (Primary Dx); Gender dysphoria 08/24/[address] [address] Jacquie Garibay DO Results 08/20/2024 11:20 AM EDT Office Visit [facility] [address] [address] Left hip pain (Primary Dx) 08/20/[address] [address] Emilie Davis MD Results 08/04/[address] [address] Nahun Dyer MD 07/24/2024 1:00 PM EDT Clinical Support [address] [address] Medina Lewis, RONALD On pre-exposure prophylaxis for HIV (Primary Dx) 07/24/2024 Orders Only GENERIC EXTERNAL DATA DEPARTMENT Provider, Generic External Data 07/24/2024 Travel 07/20/2024 Orders Only [address] [address] Emilie Davis MD Left hip pain (Primary Dx) 07/20/[address] [address] Emilie Davis MD Referral 07/16/[address] [address] Medina Lewis, RN 07/13/[address] [address] Medina Lewis RN 07/10/2024 Refill [facility] [address] [facility] [place] [address] Bijal Irene RN Gender dysphoria 07/08/2024 Refill [facility] [address] [facility] [place] [address] Emilie Davis MD 07/08/2024 Orders Only [facility] [address] [place] [address] Emilie Davis MD 07/02/2024 Telephone [facility] [address] [place] [address] Medina Lewis RN 06/30/2024 Telephone [facility] [address] [place] [address] Emilie Davis MD May recalls from Last 3 Months Immunizations Immunization Administration Dates Next Due Hep A, Adult [...] 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 GONORRHOEAE RNA, TMA, UROGENITAL Routine 09/22/2024 9:36 AM EDT SARS COV2/INFLUENZA A/B AND RSV RNA QL [...] CARE TEST ENTER/EDIT ORDERABLES Final Result * Chlamydia/N. Gonorrhoeae RNA, TMA, Urogenitial (09/22/2024 9:36 AM EDT) Pathologist [facility] CT PCR NOT DETECTED Not Detect. [facility] Comment:A not detected test result [...] psychologicalconsequences. NG PCR NOT DETECTED Not Detect. [facility] Comment:A not detected test result [...] AM EDT 09/22/2024 11:22 AM EDT Narrative [facility] - 09/22/2024 1:15 PM EDT Urine Emilie Davis MD LAB MICROBIOLOGY - GENERAL ORDERABLES Final Result Performing Organization Address City/[facility] Co de Phone Number [facility] [address] [place] [phone] * Hepatic Function Panel (09/22/2024 9:36 AM EDT) Bilirubin, Total 0.2 0.0 - 1.0 mg/dL [facility] Bilirubin, Direct <0.2 0.0 - 0.5 mg/dL [facility] Aspartate Amino Transferase 22 5 - 31 U/L [facility] Alanine Aminotransferase 18 0 - 31 U/L [facility] Total Protein 7.5 6.5 - 8.0 g/dL [facility] Albumin Level 4.0 3.5 - 5.0 g/dL [facility] Alkaline Phosphatase 94 39 - 117 U/L [facility] 09/22/2024 9:36 AM EDT 09/22/2024 11:23 AM EDT Emilie Davis MD LAB BLOOD ORDERABLES Final Result Performing Organization Address City/[facility] de Phone Number [facility] [address] [place] [address] [phone] * SARS-CoV-2 RNA, Influenza A/B, and RSV RNA, Ql NAAT (09/07/2024 5:17 PM EDT) Influenza A PCR NEGATIVE Negative [facility] Influenza B PCR NEGATIVE Negative [facility] Resp Syncy Virus RNA Qual PCR NEGATIVE Negative [facility] SARS COV2 PCR NEGATIVE Negative [facility] Comment:All test results mus t [...] use by authorized laboratories.Testing performed on the [employer] GeneXpert utilizingreal-time RT-PCR.All SARS CoV2 and positive influenza A/B results arereported to [facility]. 09/07/2024 5:17 PM EDT 09/07/2024 5:20 PM EDT Generic External Data Provider LAB MICROBIOLOGY - GENERAL ORDERABLES Final Result Performing Organization Address [facility] de Phone Number [facility] [address] [place] [address] [phone] * CT Head w/o Contrast (09/07/2024 3:43 PM EDT) Anatomical Region Laterality Modality Head, Neck Computed Tomogra phy 09/07/2024 3:43 PM EDT Narrative 09/07/2024 4:06 PM EDT ? [place] [facility] ?[address] ?[place] [address] ? CT Scan Report ? Signed ? Patient: Trace Roberson,Harriet ?MR#: [id number] ?? [id number] ? : 1970 ?Acct:[id number] ? Age/Sex: 54 / F ?ADM Date: 09/07/24 ? Loc: HO.ED ? Attending Dr: ? Ordering Physician: Surendra Uribe ?? Date of Service: 09/07/24 ?? Procedure(s): CT head/brain wo IV con ?? Accession Number(s): [id number] ? cc: Emilie Davis MD; Surendra Uribe ? Report Number: ?? [id number]: Total DLP = ??518.00 mGy-cm ?? EXAMINATION: [...] by Eric Irene MD in OV> ? 28/ 1603 ? DD/DT: /28/25 1543 ? TD/TT: // 1557 ? Website Designer: ? Procedure Note Donotuseinterpreter, Image - 09/07/[address] [address] [address] Scan Report Signed Patient: Harriet ValdezMR#: [id number] : 1970Acct:[id number] Age/Sex: 54 / FADM Date: 09/07/24 Loc: HO.ED Attending Dr: Ordering Physician: Surendra Uribe Date of Service: 09/07/24 Procedure(s): CT head/brain wo IV con Accession Number(s): [id number] cc: Emilie Davis MD; Surendra Uribe Report Number: [id number]: Total DLP = 518.00 mGy-cm EXAMINATION: CT [...] MD Signed By: <Electronically signed by Eric Ireen MDin OV> 09/07/24 1603 DD/ 1543 TD/TT: 09/07/24 1557 Website Designer: us [facility] External Provider IMG CT PROCEDURES Final Result * XR Pelvis 1-2 Views (08/20/2024 12:22 PM EDT) Anatomical Region Laterality Modality Body, Pelvis Radiographic Aurora ging 08/20/2024 12:2 2 PM EDT Narrative 08/20/2024 1:45 PM EDT ?[facility] ?[address] ?[place], [place] [address] ?XRay Report ? Signed ? Patient: Harriet Valdez ?MR#: [id number] ?? [id number] ? : 1970 ?Acct:[id number] ? Age/Sex: 54 / F ?ADM Date: 08/20/24 ? Loc: HO.HHCX ? Attending Dr: Jacquie Garibay DO ? Ordering Physician: Jacquie Garibay DO ?? Date of Service: 08/20/24 ?? Procedure(s): XR pelvis 1-2V ?? Accession Number(s): [id number] ? cc: Jacquie Garibay DO ? EXAMINATION: [...] DD/ 1222 ? TD/TT: 08/20/24 1256 ? Website Designer: ? Procedure Note Donwillardter, Image - 08/20/2024 [facility] [address] [place] [address] XRay Report Signed Patient: Harriet ValdezMR#: [id number] : 1970Acct:[id number] Age/Sex: 54 / FADM Date: 08/20/24 Loc: HO.HHCX Attending Dr: Jacquie Garibay DO Ordering Physician: Jacquie Garibay DO Date of Service: 08/20/24 Procedure(s): XR pelvis 1-2V Accession Number(s): [id number] cc: Jacquie Garibay DO EXAMINATION: XR PELVIS [...] 08/20/24 1342 DD/ 1222 TD/TT: 08/20/24 1256 Website Designer: Jacquie Garibay DO IMG XR PROCEDURES Final Resu lt * (ABNORMAL) Confirmatory Syphilis Profile (07/24/2024 1:36 PM EDT) Rapid Plasma Reagin, Quant Non-React jovanny Nonreactive [facility] Treponema pallidum Antibody, Particle Agglutination Reactive( A) Nonreactive [facility] Comment:These results must b e reported by the ordering clinician orclinical facility to the [facility] required by state law.Testing performed at: [address] [address] 07/24/2024 1:36 PM EDT 07/25/2024 4:05 AM EDT Nahun Dyer MD LAB BLOOD ORDERABLES Final Res ult Performing Organization Address [facility]/ZIP Co de Phone Number [facility] [address] [place] [phone] * (ABNORMAL) Syphilis Screen (07/24/2024 1:36 PM EDT) [facility] Syphilis Screen Reactive( A) Nonreactive [facility] Comment:Reactive specimens a re sent to the [facility] Labfor confirmatory tests. 07/24/2024 1:36 PM EDT 07/24/2024 4:20 PM EDT Nahun Dyer MD LAB BLOOD ORDERABLES Final Res ult Performing Organization Address City/[facility] Co de Phone Number [facility] [address] [place] [phone] * HIV-1 RNA, Quantitative, Real-Time PCR (07/24/2024 1:36 PM EDT) [facility] HIV RNA PCR Qn Copies NOT DETECTED NOT DETECTED copies/mL [facility] HIV RNA PCR Qn Log Copies NOT DETECTED NOT DETECTED [facility] Comment:Result Units: Log co pies/mLThis test was performed using Real-Time Polymerase ChainReaction.Reportable Range: 20 copies/mL to 10,000,000 copies/mL(1.30 log copies/mL to 7.00 log copies/mL).THIS TEST WAS PERFORMED AT:[facility] [address] [id number] MALDONADO MD 07/24/2024 1:36 PM EDT 07/24/2024 4:20 PM EDT us Nahun Dyer MD LAB BLOOD ORDERABLES Final Res ult Performing Organization Address [facility]/ZIP Co de Phone Number [facility] [address] [place] [address] [phone] * (ABNORMAL) Lipid Panel, Standard (07/24/2024 1:36 PM EDT) Triglycerides 141 <150 mg/dL [facility] Comment:Desirable Triglyceri de: less than 150 [...] 190 mg/dL HDL Cholesterol 63 >40 mg/dL [facility] Comment:Desirable HDL: great er than 40 mg/dL Note: This HDL assay may give artificially low results in patients with liver disease. 07/24/2024 1:36 PM EDT 07/24/2024 4:20 PM EDT us Generic External Data Provider LAB BLOOD ORDERAB LES Final Result Performing Organization Address [facility]/ZIP Co de Phone Number [facility] [address] [place] [address] [phone] * HPV mRNA E6/E7 w/Reflex to [...] alternative testing options.For additional information, please refer tohttp://education.[employer]/faq/DKZ981e1(This link if provided for information/educational purposes only.)THIS TEST WAS PERFORMED AT:[facility] [place] [id number] MALDONADO MD HPV mRNA E6/E7 [facility] HPV 16 RNA [facility] HPV 18/45 RNA [facility] 03/22/2023 11:3 0 AM EST 03/25/2023 12:20 PM EST Emilie Davis MD LAB CYTOLOGY ORDERABLES Fi nal Result [facility] [address] [place] [phone] * Pap Smear (03/22/2023 11:30 AM EST) 03/22/2023 11:3 0 AM EST 03/25/2023 12:20 PM EST Narrative [facility] - 04/11/2023 11:26 AM EST ----- ------- Name: Harriet Valdez ?Age/Sex: 53/F ? : 1970 Unit#: [id number] ?? Attend Dr: RADHA VILLAREAL ??MD ?Re03/22/23 ?Status: DEP REF ? Location: HO.HHCLNP ? Disch: ? ----- ------- SPEC : [id number] ?RECD: 03/25/230 ? STATUS: ??SOUT ? REQ NUM: [id number] ? AMBREEN: 03/22/23-5150 ? SUBM DR: Emilie Davis MD ? ENTERED: ??03/25/23-6954 ?SP TYPE: Pap Smr ?OTHR : ? ORDERED: ??Pap Smear ? Interpretation ?? Satisfactory for evaluation. ?? Negative for intraepithelial lesion or malignancy. ?HPV mRNA E6/E7: ?NOT DETECTED ? This assay detects E6/E7 viral messenger RNA (mRNA) from 14 high-risk HPV types (16, 18, ?? 31, 33, 35, 39, 45, 51, 52, 56, 58, 59, 66, 68) ?? HPV testing performed by [facility], [place], [place]. ??See reference laboratory ?? portion of the EMR for entire report. ?Clinical Information LMP: Unknown date Previous PAP test: Unknown date, WNL Other history: Pt on testosterone, surgical post menopause ? Material Received ?? ThinPrep-Cervical ----- ------- Signed (signature on file) SERENA Alejandro (ASCP) 04/11/23 1126 ? ----- ------- ? END OF REPORT ? us Emilie Davis MD LAB CYTOLOGY ORDERABLES Fi nal Result [facility] [address] [place] [phone] [phone] * Hm Colonoscopy (01/30/2018) Colonoscopy normal us Historical Provider HEALTH MAINTENANCE Final Result from Last 3 Months or Most Recently Relevant to Health Maintenance Insurance [employer] Advance Directives Documents on File Type Date Recorded Patient Project Development Coordinator Expl anation Advance Directives and Living Will 03/16/2024 Health Care Proxy 03/16/24 Care Teams Engineer Exhauster Relationship Specialty Start Date End Date Victoria, MD Emilie [address] [place] [address] PCP - General Family Medicine 05/13/18 Morales Echavarria FNP [address] [place] [phone] Nurse Practitioner Family Medicine 04/16/[address] [place] [address] Gastroenterology 05/26/24 Fred Castanon [address] [place] [phone] 07/21/24
--- OUTSIDE RECORDS SUMMARY | 2024-09-23 08:30 | XMS_ITS | Encounter Summary ---
Author Organization [employer] [facility] Address [address] [place] [address] Care Team Providers Care Manufacturing Coordinator Name Role Phone Emilie Davis MD Primary Care Provider +1- [phone] Morales Echavarria DIET CONSULTANT Unavailable Unavailable August Unavailable Fred Castanon Unavailable Reason for Visit * Reason Onset Date Comments Med Refill 04/22/2024 Encounter Details Date Type Department Care Team (Late st Contact Info) Description 04/22/2024 Telephone [facility] MEDICINE [address] [place] [address] Emilie Davis MD [address] [place] [address] Med Refill Social History Tobacco Use Types [...] 200 MG/5ML suspension To be sent to: [facility] - [place], [place] - [address] [facility] documented in this encounter Plan of Treatment Upcoming Encounters Date Type Department Care Team (Late st Contact Info) Description 11/16/2024 1:00 PM EDT Clinical Support [facility] MEDICINE [address] [place] [address] Medina Lewis, RONALD [address] [place] [address] documented as of this encounter Visit Diagnoses Not on filedocumented in this encounter Additional Health Concerns Assessment Noted Time PHQ-9 Depression Total Score: 3 04/30/20 23 9:17 AM EST documented as of this encounter Care Teams Manufacturing Coordinator Relationship Specialty Start Date End Date Emilie Davis MD [address] [place] [id number] PCP - General Family Medicine 05/13/18 Morales Echavarria FNP [address] [place] [address] Nurse Practitioner Family Medicine 04/16/23 Pam Aida [address] [place] [address] Gastroenterology 05/26/24 Fred Castanon [address] [place] [address] 07/21/24 documented as of this encounter
--- OUTSIDE RECORDS SUMMARY | 2024-09-23 08:30 | XMS_ITS | Encounter Summary ---
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) Social [...] Description 11/16/2024 1:00 PM EDT Clinical Support [facility] MEDICINE [address] [place] [address] Medina Lewis RN [address] [place] [address] documented as of this encounter Visit Diagnoses Diagnosis Gender 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- Primary documented in this encounter Additional Health Concerns Assessment Noted Time PHQ-9 Depression Total Score: 3 04/30/20 23 9:17 AM EST documented as of this encounter Care Teams Conference Translator Relationship Specialty Start Date End Date Emilie Davis MD [address] [place] [address] PCP - General Family Medicine 05/13/18 Morales Echavarria FNP [address] [place] [address] Nurse Practitioner Family Medicine 04/16/23August [address] [address] Gastroenterology 05/26/24 Fred Castanon [address] [address] 07/21/24 documented as of this encounter
== END 2024-09-23 09:40 | disposition home or self-care (01) ==
LOC: HO.HSMS 08:19
PROVIDERS: PCP Family Medicine; Visit Provider Nurse Practitioner Family
DX: G44.019 Episodic cluster headache, not intractable (principal); M54.81 Occipital neuralgia; M19.90 Unspecified osteoarthritis, unspecified site; Q04.8 Other specified congenital malformations of brain; R06.83 Snoring; G47.9 Sleep disorder, unspecified; G47.19 Other hypersomnia
CPT/HCPCS: 99204

== ENCOUNTER → 2024-09-23 08:19 | Outpatient (BNVA) | payer OTHER, SELFPAY | PROVIDERS: PCP Family Medicine; Visit Provider Nurse Practitioner Family | DX: G44.019 Episodic cluster headache, not intractable (principal); R51.9 Headache, unspecified; M54.81 Occipital neuralgia; M19.90 Unspecified osteoarthritis, unspecified site; Q04.8 Other specified congenital malformations of brain; R06.83 Snoring; G47.9 Sleep disorder, unspecified; G47.19 Other hypersomnia | CPT/HCPCS: 99202 ==

== ENCOUNTER 2024-09-25 15:01 | Outpatient (AMB) | payer OTHER, SELFPAY ==
--- NOTE | 2024-09-25 15:05 | A.OFFVIS_ITS ---
Vital Signs 09/25/24 15:14 Height 5 ft 4 in Weight 110 lb 3.698 oz BMI 18.9 BMI Reason not done Patient refused/unable Intake Visit Reasons: Follow up dysphagia/GERD Intake Note: Deloris gonzalez in the office as a follow up for GERD and Dysphagia. CC: States that they are still having the issues with the reflux and issues with swallowing. States that there is issues with constipation. Expanded Function Dental Assistant Required: Yes Allergies black pepper Allergy (Severe, Verified 09/25/24 15:15) Anaphylaxis Penicillins [PENICILLINS] Allergy (Intermediate, Verified 09/25/24 15:15) HIVES,SWELLING sumatriptan [SUMATRIPTAN] Adverse Reaction (Severe, Verified 09/25/24 15:15) PT STATES HEART ATTACK Medication List - Last Reconciled 09/25/24 by MIHIR Perez atorvastatin 40 mg PO BEDTIME sonutlgksh-jnihpieoducuv-yxei 50-300-40 mg (Fioricet) 1 cap PO Q4-6H PRN cabotegravir ER (Apretude) 600 mg IM [id number] dicyclomine 10 mg PO QID linaclotide (Linzess) 145 mcg PO QAM loratadine 10 mg PO DAILY magnesium oxide 400 mg PO BEDTIME 30 days mirtazapine 15 mg PO BEDTIME naratriptan take 1/2 - 1 tab at onset of headache; if no relief may repeat 1 tab after at least 4 hrs; max = 2 tabs/24 hrs orally PRN; 30 days Oxygen Home Use Start home O2 at 15-25 L/min via non-rebreather facemask x's 15- 20 minutes at onset of cluster headache attack. Patient will require both M tanks and E tanks. sucralfate 20 mL PO QNOON HPI HPI Follow up dysphagia/GERD: Details: Assessment & Plan (1) Bile reflux gastritis: Code(s): K29.60 - Other gastritis without bleeding Category: Medical (2) Bile reflux esophagitis: Code(s): K21.00 - Gastro-esophageal reflux disease with esophagitis, without bleeding Category: Medical (3) Chronic constipation: Code(s): K59.09 - Other constipation Category: Medical (4) Chronic, continuous use of opioids: Code(s): F11.90 - Opioid use, unspecified, uncomplicated Category: Medical Plan Cymraes #Michelle Live (Jadness and identifies as male) She initially presented to GI for dysphagia. She says she was told my throat closes involuntarily. She had a dilation that was helpful and this has been sustained. Now she has a very irritated stomach with everything she eats and I have a lot of gases, this is both belching and flatulence. She also has borborygmus. She had trouble gaining weight. She may eat well one day, but then the sx will exacerbate the next day. She has trouble taking the omeprazole r/t the size of the capsule and she feels it increases her nausea although it helps with her HB. Her stools are normal and formed. She has had some relief with the use of bentyl. She says she wants to have an EGD/colonoscopy - but she had an EGD for the same sx in 2018 that was relatively unremarkable, and a colonoscopy that was the same. She says she has a personal history of polyps in [place] and her mother had colon polyps. Her problems seemed to have started in 2013 when she was in [place]. Her sister has similar sx but also has NIDDM. HEr pain is a burning in the epigastrum and esophagus/chest, but in the LLQ she has pain about twice a month with diarrhea - the LLQ pain is described as a squeezing pain. It is helped quite a lot with bentyl, but she was on rx'ed one a day and she would wait until she was in severe pain before taking. She also has extremely good sx control when she was on a short course of sucralfate liquid. This really points towards bile reflux and gastritis. ROV 4 weeks. Medications: New polyethylene glycol 3350 (Miralax) 238 grams PO ONCE 238 grams 0RF colonoscopy prep 1 day bisacodyl (Dulcolax (bisacodyl)) 10 mg (2 x 5 mg) PO BEDTIME 4 tabs 0RF 2 days Changed From dicyclomine 10 mg PO ONCE 30 caps 3RF To dicyclomine 10 mg PO QID 120 caps 3RF From sucralfate (Carafate) 10 mL PO BID 420 mL 0RF K21.00 - Gastro-esophageal reflux disease with esophagitis, without bleeding, K29.60 - Other gastritis without bleeding To sucralfate (Carafate) 20 mL PO QNOON 420 mL 6RF K21.00 - Gastro-esophageal reflux disease with esophagitis, without bleeding, K29.60 - Other gastritis without bleeding Discontinued ondansetron Discontinued Reason: Doctor's Order 4 mg PO Q8H PRN 20 tabs 0RF nausea and vomiting omeprazole Discontinued Reason: Doctor's Order 20 mg PO BID 30 days 60 caps 11RF CORRESPONDENCE On 06/09/24 @ 11:23 Aida Orozco Wrote To Aida Orozco (3) I had not ordered any procedures yet as she had and EGD/colonoscopy in the relatively recent past = 2018. Will do this on a future visit. On 06/08/24 @ 15:00 Yasmeen Juarez Wrote To Aida Orozco please advise re: procedure On 06/08/24 @ 14:59 Mayelin Nava Wrote To Aida Orozco (2) patient called today and stated she has a prep for a colonoscopy and she was calling in for instruction for the prep, there is no quick text for this patient to have a colonoscopy done but there is a prep that was sent. Can we please clarify if this patient needs a procedure? She also stated the carafate is in tablet form and she needs it in liquid On 06/03/24 @ 13:28 Yasmeen Juarez Wrote To Aida Orozco sorry, that was my fault! thanks On 06/03/24 @ 13:00 Aida Orozco Wrote To Yasmeen Juarez Oh, good, as I'm not yet certified to do ID consults...... On 06/03/24 @ 12:41 Yasmeen Juarez Wrote To Aida Orozco sorry - yes, its the Carafate. I thought I wrote that on this workload. On 06/03/24 @ 12:36 Aida Orozco Wrote To Rohini Trotter (2) Apretude is an antiviral medication which I would not be ordering. If the medicatioin is carafate, then we can do that, please advise. On 05/28/24 @ 08:35 Yasmeen Juarez Wrote To Aida Orozco spoke w/ pharmacy - they will cover the tablets but not the suspension. please send if you are agreeable TODAY'S VISIT Cymraes #Radha Jones ( idENTIFIES HE) He never received the carafate in the liquid form, this may be insurance driven. He is doing much worse since I last saw him. The chest burning and discomfort continues but he stopped the omeprazole because that made him feel more nauseated and more bloated. We did educate him that he could crush a grind the pill and put it in applesauce or even in juice to make it more palatable since the objection to the pill form was the taste. He has done well in the past on liquid Carafate and that is why we were trying to reinstate this. He is having severe constipation lately. He is using yfrg-rgs-fhsxrxn Dulcolax but even then he is only moving small amounts and having incomplete evacuation. If he did not take anything he would only have a bowel movement every 5 or 6 days and become extremely bloated. While the Dulcolax is moving his bowels a little bit he is having severe cramping with it so this is clearly not an optimal solution. I think will start Linzess 145 micro g and titrate to affect her side effect. This will also help to offset any of the constipating effects of the sucralfate. He is having trouble were food will go down but then will come back up and he will have to vomit it. I am uncertain if this is because it is getting stuck in the esophagus, or whether he might have delayed gastric emptying. While he is not a diabetic this has been going on for some time and there is also something that seems to be contributing to his need for continued esophageal dilation so I think we are going to get both a gastric emptying study and a barium swallow. This will help us see if gastric motility is contributing to the problem and if there is also something like esophageal dysmotility or a large paraesophageal hernia contributing to the dysfunction. He is agreeable to having these tests. He has been researching H pylori as the source of bloating and although all of the upper endoscopies in the past have been negative for this bacteria I will order a stool sample since it is a simple test. I believe that he may have a component of bile gastritis and GERD despite the lack of diarrhea as he is status post cholecystectomy. He says that he is utilizing dicyclomine because he finds that this is helpful with cramping and bloating. He knows it as Bentyl. In the past he had a dilation of both the pyloric outlet and the end of the esophagus with some help with the swallowing. Other than that there was no severe pathology discovered. He says that he has a family history of colon polyps in his mother and that he had a polyp removed when he was in [place] many years ago. Because of this will get an EGD and a colonoscopy. He denies any cardiac or respiratory problems. There are no prior problems with anesthesia or sedation. There are no infectious disease problems. I want to see him back in 3-4 weeks to evaluate the Linzess and titrate it. I will try sending the sucralfate again in the liquid form but if not we will need to send and additional prescription in the tablet form so that he can crush or dissolve it. [facility] Medical History (Updated 09/25/24 @ 15:52 by MIHIR Perez) LEE (dyspnea on exertion) Arthritis Sleep difficulties Occipital neuralgia of left side New onset headache Diverticulosis of colon Chronic, continuous use of opioids Chronic GERD Abdominal pain Palpitations Hypotension History of palpitations Dysphagia Disc degeneration, lumbar Spondylosis of lumbar spine Depression Past heart attack Hyperlipemia Erosive osteoarthritis of hands, bilateral GERD (gastroesophageal reflux disease) Hypertension Surgical History History of cholecystectomy Hx of colonoscopy History of esophagogastroduodenoscopy (EGD) H/O bilateral mastectomy H/O: hysterectomy Family History Mother Hypertension Breast cancer Maternal Grandmother Myocardial infarct Skin cancer Sister Heart problem Breast cancer Family/Other Esophageal cancer Social History Alcohol intake: never Patient Tobacco Use Status: Former Tobacco user Substance Use Type: Marijuana Review of Systems Const Denies fatigue, Denies fever(s), Denies night sweats, Reports poor appetite, Reports snoring and Reports weight loss Eyes Details: glasses Reports requires corrective lenses ENT Reports Normal hearing present, Denies dental pain, Reports dysphagia, Denies hearing loss, Denies mouth pain, Denies odynophagia, Denies throat swelling, Denies tongue swelling and Reports other (Dentition adequate) Card Reports no additional complaints Resp Reports no additional complaints and Reports snoring GI Details: Denies abdominal pain, Denies melena, Reports bloating, Denies hematochezia, Reports constipation, Denies GI cramping, Reports dysphagia, Denies excessive flatus, Reports early satiety, Reports heartburn, Denies diarrhea, Reports nausea, Denies odynophagia, Reports vomiting and Denies hematemesis Musc Reports arthralgias and Reports stiffness Skin/Breast Denies pruritus, Denies lesions, Denies rash and Denies jaundice Neuro Reports Normal hearing present and Denies Abnormal speech present Endo Denies fatigue Aller/Immun Denies throat swelling and Denies tongue swelling Physical Exam Const General: cooperative, no acute distress, well developed and well groomed Nutritional Appearance: well nourished and thin Orientation/consciousness: oriented to person, oriented to place and oriented to time Limitations: language barrier HEENT Head: Yes normocephalic and Yes atraumatic Eyes General: appearance normal, both eyes and all related structures Pupils: Equal, round and reactive pupils present Neck Neck: Yes normal visual inspection and Yes no lymphadenopathy Thyroid: Thyroid normal Resp Effort & Inspection: normal respiratory effort and able to speak in complete sentences Auscultation: clear to auscultation bilaterally Cardio Rate: regular rate Rhythm: regular rhythm Heart sounds: Normal, physiologic split S2 sound present Peripheral pulses: radial pulses present and posterior tibial pulses present GI Inspection: No distended and No Abdominal panniculus present Palpation (GI): Soft to palpation, nontender, no guarding, not rigid and No hepatosplenomegaly present Percussion: Yes normal to percussion Auscultation: normal bowel sounds Rectal Exam - Female: deferred Skin General skin exam: no rashes or lesions noted, turgor normal, skin not dry, no jaundice, No spider nevi and no striae Rashes: no rashes Nails: normal Neuro General: oriented to person, oriented to place and oriented to time Cranial nerves: Yes Equal, round and reactive pupils present and Yes Normal hearing present Speech: No Abnormal speech present Extrem General: Yes normal to inspection, No clubbing, No cyanosis and No edema Psych Appearance: grossly normal and well kempt Mental Status: mental status grossly normal Speech and movement: Normal speech and movement present Affect: normal affect Attitude: cooperative Thought process: Normal thought process present and not confabulating Thought content: Normal thought content present Insight: Limited insight present (Psych) Judgement: Limited judgement present (Psych) Assessment & Plan Assessment & Plan (1) GERD (gastroesophageal reflux disease): Code(s): K21.9 - Gastro-esophageal reflux disease without esophagitis Category: Medical (2) Vomiting: Code(s): R11.10 - Vomiting, unspecified Category: Medical (3) Erosive esophagitis: Code(s): K22.10 - Ulcer of esophagus without bleeding Category: Medical (4) Dysphagia: Comment: History of EGD with dilation x2 Savary(Desilets-2017) dilation as well as balloon dilation(Mukesh-2018) Chew well, eat slowly, EGD possible dilation Code(s): R13.10 - Dysphagia, unspecified Category: Medical (5) Family history of polyps in the colon: Comment: Mother Code(s): Z83.719 - Family history of colon polyps, unspecified Category: Medical (6) Chronic constipation: Code(s): K59.09 - Other constipation Category: Medical (7) Upper abdominal pain: Code(s): R10.10 - Upper abdominal pain, unspecified Category: Medical Plan Cymraes #Radha Jones ( idENTIFIES HE) He never received the carafate in the liquid form, this may be insurance driven. He is doing much worse since I last saw him. The chest burning and discomfort continues but he stopped the omeprazole because that made him feel more nauseated and more bloated. We did educate him that he could crush a grind the pill and put it in applesauce or even in juice to make it more palatable since the objection to the pill form was the taste. He has done well in the past on liquid Carafate and that is why we were trying to reinstate this. He is having severe constipation lately. He is using vosc-lat-[id number] Dulcolax but even then he is only moving small amounts and having incomplete evacuation. If he did not take anything he would only have a bowel movement every 5 or 6 days and become extremely bloated. While the Dulcolax is moving his bowels a little bit he is having severe cramping with it so this is clearly not an optimal solution. I think will start Linzess 145 micro g and titrate to affect her side effect. This will also help to offset any of the constipating effects of the sucralfate. He is having trouble were food will go down but then will come back up and he will have to vomit it. I am uncertain if this is because it is getting stuck in the esophagus, or whether he might have delayed gastric emptying. While he is not a diabetic this has been going on for some time and there is also something that seems to be contributing to his need for continued esophageal dilation so I think we are going to get both a gastric emptying study and a barium swallow. This will help us see if gastric motility is contributing to the problem and if there is also something like esophageal dysmotility or a large paraesophageal hernia contributing to the dysfunction. He is agreeable to having these tests. He has been researching H pylori as the source of bloating and although all of the upper endoscopies in the past have been negative for this bacteria I will o rder a stool sample since it is a simple test. I believe that he may have a component of bile gastritis and GERD despite the lack of diarrhea as he is status post cholecystectomy. He says that he is utilizing dicyclomine because he finds that this is helpful with cramping and bloating. He knows it as Bentyl. In the past he had a dilation of both the pyloric outlet and the end of the esophagus with some help with the swallowing. Other than that there was no severe pathology discovered. He says that he has a family history of colon polyps in his mother and that he had a polyp removed when he was in [place] many years ago. Because of this will get an EGD and a colonoscopy. He denies any cardiac or respiratory problems. There are no prior problems with anesthesia or sedation. There are no infectious disease problems. I want to see him back in 3-4 weeks to evaluate the Linzess and titrate it. I will try sending the sucralfate again in the liquid form but if not we will need to send and additional prescription in the tablet form so that he can crush or dissolve it. Orders: Orders NM gastric emptying study Today K21.9 - Gastro-esophageal reflux disease without esophagitis, R11.10 - Vomiting, unspecified [place] barium swallow Today K21.9 - Gastro-esophageal reflux disease without esophagitis, R11.10 - Vomiting, unspecified H pylori Ag Stool Today R10.10 - Upper abdominal pain, unspecified EGD/Olean Combo - GI Use Only Today R13.10 - Dysphagia, unspecified, Z83.719 - Family history of colon polyps, unspecified Medications: New linaclotide (Linzess) Take first thing in the morning with a full glass of water. 145 mcg PO QAM 30 caps 6RF K58.1 - Irritable bowel syndrome with constipation dicyclomine 10 mg PO QID 120 caps 6RF K21.9 - Gastro-esophageal reflux disease without esophagitis sucralfate 20 mL PO QNOON 1,000 mL 6RF K22.10 - Ulcer of esophagus without bleeding Discontinued dicyclomine Discontinued Reason: Doctor's Order 10 mg PO QID 120 caps 3RF Coding Level of Care Code Est Pt Level 4 (45880) Diagnoses GERD (gastroesophageal reflux disease) K21.9 Vomiting R11.10 Erosive esophagitis K22.10 Dysphagia R13.10 Family history of polyps in the colon Z83.719 Chronic constipation K59.09 Upper abdominal pain R10.10 Time Spent (min) 37
--- OUTSIDE RECORDS SUMMARY | 2024-09-25 15:05 | XMS_ITS | Encounter Summary ---
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) Social [...] EDT Clinical Support [facility] MEDICINE [address] [place] [address] Medina Lewis RN [address] [place] [address] documented as of this encounter Visit Diagnoses Diagnosis Gender 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- Primary documented in this encounter Additional Health Concerns Assessment Noted Time PHQ-9 Depression Total Score: 3 04/30/20 23 9:17 AM EST documented as of this encounter Care Teams Eight Section Blower Relationship Specialty Start Date End Date Emilie Davis MD [address] [place] [phone] PCP - General Family Medicine 05/13/18 Morales Echavarria FNP [address] [place] [address] Nurse Practitioner Family Medicine 04/16/23August [address] [address] Gastroenterology 05/26/24 Fred Castanon [address] [address] 07/21/24 documented as of this encounter
--- OUTSIDE RECORDS SUMMARY | 2024-09-25 15:05 | XMS_ITS | Encounter Summary ---
Author Organization [employer] [facility] Address [address] [facility] 7t [place] [address] Care Team Providers Care Carpet Cleaner Name Role Phone Emilie Davis MD Primary Care Provider +1- [phone] Morales Echavarria CLAIMS DIRECTOR Unavailable Unavailable August Unavailable Fred Castanon Unavailable Reason for Visit * Reason Onset Date Comments Referral 07/18/2022 Encounter Details Date Type Department Care Team (Late st Contact Info) Description 07/18/2022 Telephone [facility] MEDICINE [address] [place] [address] Emilie Davis MD 230 [place] [address] Referral Social History Tobacco Use Types Packs/Day [...] [facility]. Please contact pt [phone] documented in this encounter Plan of Treatment Upcoming Encounters Date Type Department Care Team (Late st Contact Info) Description 11/16/2024 1:00 PM EDT Clinical Support [facility] MEDICINE [address] [place] [address] Medina Lewis, RN [address] [place] [address] documented as of this encounter Visit Diagnoses Not on filedocumented in this encounter Care Teams Carpet Cleaner Relationship Specialty Start Date End Date Emilie Davis MD [address] [place] [address] PCP - General Family Medicine 05/13/18 Morales Echavarria FNP [address] [place] [address] Nurse Practitioner Family Medicine 04/16/23 Aida Orozco [address] [place] [address] 3rd [place] [address] Gastroenterology 05/26/24 Fred Castanon [address] [place] [address] 07/21/24 documented as of this encounter
--- OUTSIDE RECORDS SUMMARY | 2024-09-25 15:05 | XMS_ITS | Encounter Summary ---
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 Not on file Not on file documented as of this encounter Plan of Treatment Upcoming Encounters Date Type Department Care Team (Late st Contact Info) Description 11/16/2024 1:00 PM EDT Clinical Support [facility] MEDICINE [address] [place] [address] Medina Lewis, RONALD [address] [place] [address] documented as of this encounter Visit Diagnoses Not on filedocumented in this encounter Additional Health Concerns Assessment Noted Time PHQ-9 Depression Total Score: 3 04/30/20 23 9:17 AM EST documented as of this encounter Care Teams Party Coordinator Relationship Specialty Start Date End Date Emilie Davis MD [address] [place] [address] PCP - General Family Medicine 05/13/18 Morales Echavarria FNP [address] [place] [address] Nurse Practitioner Family Medicine 04/16/[address] [place] [address] Gastroenterology 05/26/24 Fred Castanon [address] [place] [address] [place] [address] 07/21/24 documented as of this encounter
--- OUTSIDE RECORDS SUMMARY | 2024-09-25 15:05 | XMS_ITS | Clinical Summary ---
Author Organization [employer] Address [address] [place] [address] Care Team Providers Care Activity Manager Name Role Phone RyanEmilie moreira MD Primary Care Provider [phone] Morales Echavarria Unavailable Unavailable August Unavailable Fred Castanon Unavailable Allergies Active Allergy Reactions Criticality Noted Date Comments Penicillins Anaphylaxis,Rash High 05/16/2017 Sumatriptan 10/28/2018 Medications * This document contains information received from the source organization and may not represent a complete record from that organization. Needle, Disp, (BD Disp [place]) 25G X 5/8 miscIndication s:Gender dysphoria in [...] XR 05/20/24 Coronary artery disease invo lving [place] heart without angina pectoris 05/20/2024 Acquired syphilis 03/23/2024 Overview (03/23/2024): Lab Results Component Value Date SYPHILISSCRE Reactive (A) 03/18/2024 TREPPALAB Reactive (A) 03/18/2024 RPRQUANT Non-Reactive 03/18/2024 -will call [facility] regarding need for testing 03/23/24 -pt allergic [...] care facilitated by Alessio. -dental home is [facility] -health care proxy filed 03/16/24 Assessment & Plan (03/17/2024 6:12 AM EST): -next physical exam due after 03/16/2025 -eye care facilitated by Alessio. -dental home is [facility] -health care proxy filed 03/16/24 Assessment & Plan (03/22/2023 9:17 AM EST): -next physical exam due after 12/07/2023. -eye care facilitated by Alessio. -dental home is outside of [facility] Assessment & Plan (12/06/2022 10:19 AM EDT): -next physical exam dueafter 12/07/2023. -eye care facilitated by Alessio. -dental home is outside of [facility] Hx of hepatitis C 11/26/2022 [...] He was referred back to rheumatology in [place] 08/23/2020 but provider left the area. started on Tramadol. Take 3 times per week. He is not taking at this time. Assessment & Plan (03/17/2024 6:08 AM EST): X rays suggests osteoarthritis. Seen by rheumatology in [place]. Ibuprofen and NSAIDs cause gastritis. Minimal relief with acetaminophen. He was referred back to rheumatology in [place] 08/23/2020 but provider left the area. started on Tramadol. Take 3 times per week. He is not taking at this time. Assessment & Plan (03/22/2023 9:15 AM EST): X rays suggests osteoarthritis. Seen by rheumatology in [place]. Ibuprofen and NSAIDs cause gastritis. Minimal relief with acetaminophen. He was referred back to rheumatology in [place] 08/23/2020 but provider left the area. started on Tramadol. Take 3 times per week. Will need COT in the future. Assessment & Plan (12/06/2022 8:54 AM EDT): X rays suggests osteoarthritis. Seen by rheumatology in [place]. Ibuprofen and NSAIDs cause gastritis. Minimal relief with acetaminophen. He was referred back to rheumatology in [place] 08/23/2020 but provider left the area. started on Tramadol. Take 3 times per week. Will need COT in the future. Assessment & Plan (10/11/2022 9:58 AM EDT): X rays suggests osteoarthritis. Seen by rheumatology in [place]. Ibuprofen and NSAIDs cause gastritis. Minimal relief with acetaminophen. He was referred back to rheumatology in [place] 08/23/2020 but provider left the area. started [...] Now with palpitations. Will refer to his jigger artisan for bradycardia. Assessment & Plan (03/22/2023 9:16 AM EST): Sinus bradycardia and asymptomatic. Pt states he always has slow heart rate Pt repots heart rate in 40s recorded with home BP monitor with symptoms of dizziness recorded at home. Now with palpitations. Will refer to his jigger artisan for bradycardia. Assessment & Plan (12/06/2022 8:54 AM EDT): Sinus bradycardia and asymptomatic. Pt states he always has slow heart rate Pt repots heart rate in 40s recorded with home BP monitor with symptoms of dizziness recorded at home. Now with palpitations. Will refer to his jigger artisan for bradycardia. Assessment & Plan (10/11/2022 9:58 AM EDT): Sinus bradycardia and asymptomatic. Pt states he always has slow heart rate Pt repots heart rate in 40s recorded with home BP monitor with symptoms of dizziness recorded at home. Now with palpitations. Will refer to his jigger artisan for bradycardia. Generalized abdominal pain 06/25/2021 Overview [...] for GI. Insurance no longer accepted at [facility]. -EGD scheduled for December 2021. Assessment [...] for GI. Insurance no longer accepted at [facility]. -EGD scheduled for December 2021. Assessment [...] for GI. Insurance no longer accepted at [facility]. -EGD scheduled for December 2021. Assessment [...] for GI. Insurance no longer accepted at [facility]. -EGD scheduled for December 2021. Assessment [...] for GI. Insurance no longer accepted at [facility]. -EGD scheduled for December 2021. History of non-ST elevation myocardial infarctio n (NSTEMI) 06/25/2021 Overview (07/21/2024): Hx NSTE [place] 09/2017 -continue oscar -Stress test without evidence [...] Plan (05/20/2024 4:29 PM EST): Hx NSTE [place] 09/2017 -continue oscar -Stress test without evidence of ischemia 04/08/18 -he held statin and ASA due to GI upset -trial of restarting statin 01/[address] on 05/08/24 showed Coronary artery atherosclerosis. Pt wants to get reestablished with cardiology. -referral sent 05/20/24 Assessment & Plan (03/22/2023 9:17 AM EST): Hx NSTE [place] 09/2017 -continue oscar -Stress test without evidence of ischemia 04/08/18 -he held statin and ASA due to GI upset -trial of restarting statin 01/2019 Assessment & Plan (12/06/2022 8:55 AM EDT): Hx NSTE [place] 09/2017 -continue oscar -Stress test without evidence of ischemia 04/08/18 -he held statin and ASA due to GI upset -trial of restarting statin 01/2019 Assessment & Plan (10/11/2022 9:57 AM EDT): Hx NSTE [place] 09/2017 -continue oscar -Stress test without evidence [...] lung 10/04/2017 Overview (05/20/2024): -Ct scan in [facility] on 12/25/2017 showed multiple indeterminate nodules, [...] 11/15/23 and NO SHOW. Pt can call [phone] to schedule mariely. number given to call 03/16/24 -CT 05/08/24 No acute intrathoracic findings. Calcified granulomas present bilaterally. No suspicious pulmonary nodule identified. Air-fluid level present within the midthoracic esophagus can be associated with gastroesophageal reflux disease and esophageal dysmotility. Coronary artery atherosclerosis. Assessment & Plan (05/20/2024 4:05 PM EST): -Ct scan in [facility] on 12/25/2017 showed multiple indeterminate nodules, [...] 11/15/23 and NO SHOW. Pt can call [phone] to schedule mariely. number given to call 03/16/24 -CT 05/08/24 No acute intrathoracic findings. Calcified granulomas present bilaterally. No suspicious pulmonary nodule identified. Air-fluid level present within the midthoracic esophagus can be associated with gastroesophageal reflux disease and esophageal dysmotility. Coronary artery atherosclerosis. Assessment & Plan (03/17/2024 6:13 AM EST): -Ct scan in [place] ER on 12/25/2017 showed multiple indeterminate nodules, [...] 11/15/23 and NO SHOW. Pt can call [phone] to schedule mariely. number given to call 03/16/24 Assessment & Plan (03/22/2023 9:16 AM EST): -Ct scan in [place] ER on 12/25/2017 showed multiple indeterminate nodules, largest was solid and measured 2mm. -Given that the Pt has a tobacco Hx and quit in 2018 we referrred to pulmonology that was likely distrupted by the pandemic. -Will ordered repeat CT of chest to follow the nodles. Assessment & Plan (12/06/2022 10:18 AM EDT): -Ct scan in [place] ER on 12/25/2017 showed multiple indeterminate nodules, [...] referred for OP services and referral to [facility] Psychopharmacology clinic. Provided Crisis contact [...] treatment engagement. PLAN: 1. Follow up with [facility]: Not recommended for follow-up 2. Patient goal is to learn coping mechanisms to manage sxs. 3. Behavioral Recommendations a. Ind. Therapy and Medication Management b. Continue using coping skills c. [facility] support as needed. Mild major depression 06/25/20212023 Encounters Date Type Department Care Team Description 09/22/2024 9:00 AM EDT Clinical Support [address] [address] Medina Lewis, RN On pre-exposure prophylaxis for HIV 09/22/2024 Orders Only [address] [address] Emilie Davis MD 09/22/2024 Travel 09/09/2024 Orders Only [address] [address] Emilie Davis MD Abnormal brain CT (Primary Dx) 09/09/[address] [place] [address] Emilie Davis MD Referral 09/08/[address] [address] Emilie Davis MD Nurse Triage 09/07/2024 Orders Only GENERIC EXTERNAL DATA DEPARTMENT Provider, Generic External Data 09/07/2024 Telephone [facility] WALK-[facility] [address] [address] Mike Longo MD 09/02/[address] [address] Emilie Davis MD Gender dysphoria 09/01/2024 Orders Only [address] [address] Emilie Davis MD Acute non intractable tension-type headache (Primary Dx); Gender dysphoria 08/24/[address] [address] Jacquie Garibay DO Results 08/20/2024 11:20 AM EDT Office Visit [facility] [address] [address] Left hip pain (Primary Dx) 08/20/[address] [address] Emilie Davis MD Results 08/04/[address] [address] Nahun Dyer MD 07/24/2024 1:00 PM EDT Clinical Support [address] [address] Medina Lewis, RONALD On pre-exposure prophylaxis for HIV (Primary Dx) 07/24/2024 Orders Only GENERIC EXTERNAL DATA DEPARTMENT Provider, Generic External Data 07/24/2024 Travel 07/20/2024 Orders Only [address] [address] Emilie Davis MD Left hip pain (Primary Dx) 07/20/[address] [address] Emilie Davis MD Referral 07/16/[address] [address] Medina Lewis, RN 07/13/[address] [address] Medina Lewis RN 07/10/2024 Refill [facility] MEDIC[facility] [address] [facility] [place] [address] Bijal Irene RN Gender dysphoria 07/08/2024 Refill [facility] MED[facility]INE [address] [facility] [place] [address] Emilie Davis MD 07/08/2024 Orders Only [facility] MED[facility]INE [address] [place] [address] Emilie Davis MD 07/02/2024 Telephone [facility] MEDICINE [address] [place] [address] Medina Lewis RN 06/30/2024 Telephone [facility] MEDICINE [address] [place] [phone] Emilie Davis MD May recalls from Last [...] Industry Job Start Date Job End Date [employer] Not on file Not on file [...] Clinical Support [facility] MEDICINE [address] [place] [address] Medina Lewis, RN [address] [place] [address] Health Maintenance Due Date Last Done Comments [...] Completed 03/16/2024, 01/07/2023, 12/07/2022 HIV Screening Completed 09/22/2024, 07/11, 05/21/2024, Additional history exists HIB Vaccines Aged Out [...] AM EDT On pre-exposure prophylaxis for HIV HIV 1 RNA, QUANTITATIVE REAL TIME PCR Routine 09/22/2024 9:36 AM EDT HEPATIC FUNCTION [...] TMA, Urogenitial (09/22/2024 9:36 AM EDT) Pathologist [facility] CT PCR NOT DETECTED Not Detect. [facility] Comment:A not detected test result [...] psychologicalconsequences. NG PCR NOT DETECTED Not Detect. [facility] Comment:A not detected test result [...] AM EDT 09/22/2024 11:22 AM EDT Narrative [facility] - 09/22/2024 1:15 PM EDT Urine us Emilie Davis MD LAB MICROBIOLOGY - GENERAL ORDERABLES Final Result [facility] [address] [place] [address] [phone] * HIV-1 RNA, Quantitative, Real-Time PCR (09/22/2024 9:36 AM EDT) Only the most recent of2 resultswithin the time period is included. HIV RNA PCR Qn Copies NOT DETECTED NOT DETECTED copies/mL [facility] HIV RNA PCR Qn Log Copies NOT DETECTED NOT DETECTED [facility] Comment:Result Units: Log co pies/mLThis test was performed using Real-Time Polymerase ChainReaction.Reportable Range: 20 copies/mL to 10,000,000 copies/mL(1.30 log copies/mL to 7.00 log copies/mL).THIS TEST WAS PERFORMED AT:[facility] [place] [phone] MALDONADO MD 09/22/2024 9:36 AM EDT 09/22/2024 11:23 AM EDT Emilie Davis MD LAB BLOOD ORDERABLES Final Result Performing Organization Address City/[facility]/ZIP Co de Phone Number [facility] [address] [place] [address] [phone] * Hepatic Function Panel (09/22/2024 9:36 AM EDT) Bilirubin, Total 0.2 0.0 - 1.0 mg/dL [facility] Bilirubin, Direct <0.2 0.0 - 0.5 mg/dL [facility] Aspartate Amino Transferase 22 5 - 31 U/L [facility] Alanine Aminotransferase 18 0 - 31 U/L [facility] Total Protein 7.5 6.5 - 8.0 g/dL [facility] Albumin Level 4.0 3.5 - 5.0 g/dL [facility] Alkaline Phosphatase 94 39 - 117 U/L [facility] 09/22/2024 9:36 AM EDT 09/22/2024 11:23 AM EDT Emilie Davis MD LAB BLOOD ORDERABLES Final Result Performing Organization Address [facility] Co de Phone Number [facility] [address] [place] [phone] * SARS-CoV-2 RNA, Influenza A/B, and RSV RNA, Ql NAAT (09/07/2024 5:17 PM EDT) Influenza A PCR NEGATIVE Negative [facility] Influenza B PCR NEGATIVE Negative [facility] Resp Syncy Virus RNA Qual PCR NEGATIVE Negative [facility] SARS COV2 PCR NEGATIVE Negative [facility] Comment:All test results mus t be [...] use by authorized laboratories.Testing performed on the [facility] GeneXpert utilizingreal-time RT-PCR.All SARS CoV2 and positive influenza A/B results arereported to [facility]. 09/07/2024 5:17 PM EDT 09/07/2024 5:20 PM EDT us Generic External Data Provider LAB MICROBIOLOGY - GENERAL ORDERABLES Final Result [facility] [address] [place] [phone] * CT Head w/o Contrast (09/07/2024 3:43 PM EDT) Anatomical Region Laterality Modality Head, Neck Computed Tomogra phy 09/07/2024 3:43 PM EDT Narrative 09/07/2024 4:06 PM EDT ? [facility] ?[address] ?[place] [address] ? CT Scan Report ? Signed ? Patient: Harriet Valdez ?MR#: [id number] ?? [id number] ? : 1970 ?Acct:[id number] ? Age/Sex: 54 / F ?ADM Date: 09/07/24 ? Loc: HO.ED ? Attending Dr: ? Ordering Physician: Surendra Uribe ?? Date of Service: 09/07/24 ?? Procedure(s): CT head/brain wo IV con ?? Accession Number(s): [id number] ? cc: Emilie Davis MD; Surendra Uribe ? Report Number: ?? [id number]: Total DLP = ??518.00 mGy-cm ?? EXAMINATION: [...] DD/ 1543 ? TD/TT: 09/07/24 1557 ? Human Resources District Manager: ? Procedure Note Helen, Image - 09/07/[address] [place] [address] [address] Scan Report Signed Patient: Harriet ValdezMR#: [id number] : 1970Acct:[id number] Age/Sex: 54 / FADM Date: 09/07/24 Loc: HO.ED Attending Dr: Ordering Physician: Surendra Uribe Date of Service: 09/07/24 Procedure(s): CT head/brain wo IV con Accession Number(s): [id number] cc: Emilie Davis MD; Surendra Uribe Report Number: [id number]: Total DLP = 518.00 mGy-cm EXAMINATION: CT [...] MD Signed By: <Electronically signed by Eric Irnee MDin OV> 09/07/24 1603 DD/ 1543 TD/TT: 09/07/24 1557 Human Resources District Manager: [facility] External Provider IMG CT PROCEDURES Final Result * XR Pelvis 1-2 Views (08/20/2024 12:22 PM EDT) Anatomical Region Laterality Modality Body, Pelvis Radiographic Aurora ging 08/20/2024 12:2 2 PM EDT Narrative 08/20/2024 1:45 PM EDT ?[facility] ?[address] ?[place] [address] ?XRay Report ? Signed ? Patient: Trace Roberson,Harriet ?MR#: [id number] ?? [id number] ? : 1970 ?Acct:[id number] ? Age/Sex: 54 / F ?ADM Date: 04/10/25 ? Loc: HO.HHCX ? Attending Dr: Jacquie Garibay DO ? Ordering Physician: Jacquie Garibay DO ?? Date of Service: 08/20/24 ?? Procedure(s): XR pelvis 1-2V ?? Accession Number(s): [id number] ? cc: Jacquie Garibay DO ? EXAMINATION: [...] DD/ 1222 ? TD/TT: 08/20/24 1256 ? Human Resources District Manager: ? Procedure Note Harvinder Cervantes - 08/20/2024 [facility] [address] [place] [address] XRay Report Signed Patient: Harriet Valdez#: [id number] : 1970Acct:[id number] Age/Sex: 54 / FADM Date: 08/20/24 Loc: HO.HHCX Attending Dr: Jacquie Garibay DO Ordering Physician: Jacquie Garibay DO Date of Service: 08/20/24 Procedure(s): XR pelvis 1-2V Accession Number(s): [id number] cc: Jacquie Garibay DO EXAMINATION: XR PELVIS [...] 08/20/24 1342 DD/ 1222 TD/TT: 08/20/24 1256 Human Resources District Manager: Jacquie Garibay DO IMG XR PROCEDURES Final Resu lt * (ABNORMAL) Confirmatory Syphilis Profile (07/24/2024 1:36 PM EDT) Rapid Plasma Reagin, Quant Non-React jovanny Nonreactive [facility] Treponema pallidum Antibody, Particle Agglutination Reactive( A) Nonreactive [facility] Comment:These results must b e reported by the ordering clinician orclinical facility to the [facility] required by state law.Testing performed at: [address] [address] 07/24/2024 1:3 6 PM EDT 07/25/2024 4:05 AM EDT us Nahun Dyer MD LAB BLOOD ORDERABLES Final Res ult [facility] [address] [place] [phone] * (ABNORMAL) Syphilis Screen (07/24/2024 1:36 PM EDT) Syphilis Screen Reactive( A) Nonreactive [facility] Comment:Reactive specimens a re sent to the [facility] Labfor confirmatory tests. 07/24/2024 1:36 PM EDT 07/24/2024 4:20 PM EDT us Nahun Dyer MD LAB BLOOD ORDERABLES Final Res ult Performing Organization Address City/[facility]/ZIP Co de Phone Number [facility] [address] [place] [address] [phone] * (ABNORMAL) Lipid Panel, Standard (07/24/2024 1:36 PM EDT) Triglycerides 141 <150 mg/dL [facility] Comment:Desirable Triglyceri de: less than 150 mg/dLBorderline High Triglyceride 150-199 mg/dLHigh Triglyceride: 200-499 mg/dLVery High Triglyceride: greater than or equal to 5OO mg/dL Cholesterol 205(H) <200 mg/dL [facility] Comment:Desirable Cholestero l: less than 200 mg/dLBorderline High Cholesterol: 200-239 mg/dLHigh Cholesterol: greater than 239 mg/dL LDL Cholesterol Calculated 114(H) <100 mg/dL [facility] Comment:Desirable LDL: less than 100 mg/dLNear Optimal/Above Optimal LDL: 110- 129 mg/dLBorderline High LDL: 130-159 mg/dLHigh LDL: 160-189 mg/dLVery High LDL: greater than or equal to 190 mg/dL HDL Cholesterol 63 >40 mg/dL [facility] Comment:Desirable HDL: great er than 40 mg/dL Note: This HDL assay may give artificially low results in patients with liver disease. 07/24/2024 1:36 PM EDT 07/24/2024 4:20 PM EDT us Generic External Data Provider LAB BLOOD ORDERAB LES Final Result [facility] [address] [place] [address] [phone] * HPV mRNA E6/E7 w/Reflex to HPV Genotypes 16, 18/45 (03/22/2023 11:30 AM EST) HPV nRNA E6/E7 Not Detected Not Detected [facility] Comment:Methodology: Transcr iption-Mediated AmplificationThis assay detects E6/E7 viral messenger RNA (mRNA) from 14high-risk HPV types (16,18,31,33,35,39,45,51,52,56,58,59,66,68).Cervical sources are required for HPV testing.If a vaginal source from a patient who has had atotal hysterectomy with removal of cervix wassubmitted, please contact the testing laboratoryfor alternative testing options.For additional information, please refer tohttp://education.[employer].com/faq/ZDP123f3(This link if provided for information/educational purposes only.)THIS TEST WAS PERFORMED AT:[facility] [place] [phone] MALDONADO MD HPV mRNA E6/E7 [facility] HPV 16 RNA [facility] HPV 18/45 RNA [facility] 03/22/2023 11:3 0 AM EST 03/25/2023 12:20 PM EST Emilie Davis MD LAB CYTOLOGY ORDERABLES Fi nal Result Performing Organization Address City/[facility]/ZIP Co de Phone Number [facility] [address] [place] [phone] * Pap Smear (03/22/2023 11:30 AM EST) 03/22/2023 11:3 0 AM EST 03/25/2023 12:20 PM EST Narrative [facility] - 04/11/2023 11:26 AM EST ----- ------- Name: Harriet Valdez ?Age/Sex: 53/F ? : 1970 Unit#: [id number] ?? Attend Dr: RADHA VILLAREAL ?Re03/22/23 ?Status: DEP REF ? [facility] ? Disch: ? ----- ------- SPEC : [id number] ?RECD: 03/25/230 ? STATUS: ??SOUT ? REQ NUM: [id number] ? AMBREEN: 03/22/233 ? SUBM DR: Emilie Davis MD ? ENTERED: ??03/25/23-5111 ?SP TYPE: Pap Smr ?OTHR : ? ORDERED: ??Pap Smear ? Interpretation ?? Satisfactory for evaluation. ?? Negative for intraepithelial lesion or malignancy. ?HPV mRNA E6/E7: ?NOT DETECTED ? This assay detects E6/E7 viral messenger RNA (mRNA) from 14 high-risk HPV types (16, 18, ?? 31, 33, 35, 39, 45, 51, 52, 56, 58, 59, 66, 68) ?? HPV testing performed by [facility], [place], [place]. ??See reference laboratory ?? portion of [...] MD LAB CYTOLOGY ORDERABLES Fi nal Result [facility] [address] [place] [address] [phone] * Hm Colonoscopy (01/30/2018) Colonoscopy normal Historical Provider HEALTH MAINTENANCE Final Result from Last 3 Months or Most Recently Relevant to Health Maintenance [facility] Advance Directives Documents on File Type Date Recorded Patient Therapeutic Massage Technician Expl anation Advance Directives and Living Will 03/16/2024 Health Care Proxy 03/16/24 Care Teams Activity Manager Relationship Specialty Start Date End Date Emilie Davis MD [address] [place] [address] PCP - General Family Medicine 05/13/18 Morales Echavarria FNP [address] [place] [address] Nurse Practitioner Family Medicine 04/16/[address] [place] [address] Gastroenterology 05/26/24 Fred Castanon [address] [place] [address] [place] [address] 07/21/24
--- OUTSIDE RECORDS SUMMARY | 2024-09-25 15:05 | XMS_ITS | Encounter Summary ---
Author Organization [employer] [facility] Address [address] [facility] 7t [place] [address] Care Team Providers Care Electrical Installation Supervisor Name Role Phone Emilie Davis MD Primary Care Provider [phone] Morales Echavarria AD SETTER Unavailable Unavailable August Unavailable Fred Castanon Unavailable Reason for Visit * Reason Onset Date Comments Med Refill 04/22/2024 Encounter Details Date Type Department Care Team (Late st Contact Info) Description 04/22/2024 Telephone [facility] MEDICINE [address] [place] [address] Emilie Davis MD [address] [place] [address] Med Refill Social History Tobacco Use Types [...] 200 MG/5ML suspension To be sent to: [facility] [place], [place] - [address] [facility] documented in this encounter Plan of Treatment Upcoming Encounters Date Type Department Care Team (Late st Contact Info) Description 11/16/2024 1:00 PM EDT Clinical Support [facility] MEDICINE [address] [place] [address] Medina Lewis, RONALD [address] [place] [address] documented as of this encounter Visit Diagnoses Not on filedocumented in this encounter Additional Health Concerns Assessment Noted Time PHQ-9 Depression Total Score: 3 04/30/20 23 9:17 AM EST documented as of this encounter Care Teams Electrical Installation Supervisor Relationship Specialty Start Date End Date Emilie Davis MD [address] [place] [address] PCP - General Family Medicine 05/13/18 Morales Echavarria FNP [address] [place] [address] Nurse Practitioner Family Medicine 04/16/23 Pam Aida [address] [place] [address] Gastroenterology 05/26/24 Fred Castanon [address] [place] [address] 07/21/24 documented as of this encounter
--- OUTSIDE RECORDS SUMMARY | 2024-09-25 15:05 | XMS_ITS | Encounter Summary ---
Author Organization [employer] Address [address] [place] [address] Care Team Providers Care Correction Warden Name Role Phone [place], Emilie MARISCAL Primary Care Provider [phone]- [phone] Morales Echavarria Unavailable Unavailable August Unavailable Fred Castanon Unavailable Encounter Details Date Type Department Care Team (Latest Contact Info) Description 09/22/2024 9:00 AM EDT Clinical Support [facility] [address] [place] [address] Medina Lewis, RONALD [address] [place] [address] On pre-exposure prophylaxis for HIV Social History [...] Industry Job Start Date Job End Date [employer] Not on file Not on [...] Description 11/16/2024 1:00 PM EDT Clinical Support [facility] [address] [place] [phone] Medina Lewis, RN [address] [place] [address] Scheduled Orders Name Type Priority Associated Diagnoses [...] documented as of this encounter Care Teams Correction Warden Relationship Specialty Start Date End Date Emilie Davis MD [address] [place] [phone] PCP - General Family Medicine 05/13/18 Morales Echavarria FNP [address] [place] [phone] Nurse Practitioner Family Medicine 04/16/23August [address] [place] [phone] Gastroenterology 05/26/24 Fred Castanon [address] [place] [phone] 07/21/24 documented as of this encounter
--- OUTSIDE RECORDS SUMMARY | 2024-09-25 15:05 | XMS_ITS | Encounter Summary ---
Author Organization [facility] Address [address] [place] [address] Care Team Providers Care Marketing Assistant Manager Name Role Phone Emilie Davis MD Primary Care Provider [phone]- [phone] Morales Echavarria GRID OPERATOR Unavailable Unavailable August Unavailable Fred Castanon Unavailable Encounter Details Date Type Department Care Team (Late st Contact Info) Description 05/27/2022 Abstract [facility] [address] [place] [phone] Emilie Davis MD [address] [place] [address] [phone] Social History Tobacco Use Types Packs/Day Years [...] 1:00 PM EDT Clinical Support [facility] [address] [place] [address] [phone] Medina Lewis, RONALD [address] [place], [place] [phone] documented as of this encounter Procedures Procedure [...] ORDERABLES F inal Result Performing Organization Address [facility]/ZIP Co de Phone Number [facility] [address] [place] [phone] [phone] documented in this encounter Visit Diagnoses Not on filedocumented in this encounter Care Teams Marketing Assistant Manager Relationship Specialty Start Date End Date Ryan, MD Emilie [address] [place] [address] PCP - General Family Medicine 05/13/18 Morales Echavarria FNP [address] [place] [phone] Nurse Practitioner Family Medicine 04/16/23 Pam Aida [address] [place] [address] [place] [phone] Gastroenterology 05/26/24 Fred Castanon [address] [place] [address] [address] [place] [phone] 07/21/24 documented as of this encounter
--- OUTSIDE RECORDS SUMMARY | 2024-09-25 15:05 | XMS_ITS | Encounter Summary ---
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 GONORRHOEAE RNA, TMA, UROGENITAL Routine 09/22/2024 9:36 AM EDT HIV 1 RNA, QUANTITATIVE REAL TIME PCR Routine 09/22/2024 9:36 AM EDT HEPATIC FUNCTION PANEL Routine 09/22/2024 9:36 AM EDT documented in this encounter Results * HIV-1 RNA, Quantitative, Real-Time PCR (09/22/2024 9:36 AM EDT) HIV RNA PCR Qn Copies NOT DETECTED NOT DETECTED copies/mL [facility] HIV RNA PCR Qn Log Copies NOT DETECTED NOT DETECTED [facility] Comment:Result Units: Log co pies/mLThis test was performed using Real-Time Polymerase ChainReaction.Reportable Range: 20 copies/mL to 10,000,000 copies/mL(1.30 log copies/mL to 7.00 log copies/mL).THIS TEST WAS PERFORMED AT:[employer] [place] [phone] MALDONADO MD 09/22/2024 9:36 AM EDT 09/22/2024 11:23 AM EDT Emilie Davis MD LAB BLOOD ORDERABLES Final Result [facility] [address] [place] [address] [phone] * Chlamydia/N. Gonorrhoeae RNA, TMA, Urogenitial (09/22/2024 9:36 AM EDT) CT PCR NOT DETECTED Not Detect. [facility] Comment:A not detected test result does [...] psychologicalconsequences. NG PCR NOT DETECTED Not Detect. [facility] Comment:A not detected test result does [...] AM EDT 09/22/2024 11:22 AM EDT Narrative [facility] - 09/22/2024 1:15 PM EDT Urine Emilie Davis MD LAB MICROBIOLOGY - GENERAL ORDERABLES Final Result Performing Organization Address [facility] Co de Phone Number [facility] [address] [place] [phone] * Hepatic Function Panel (09/22/2024 9:36 AM EDT) Bilirubin, Total 0.2 0.0 - 1.0 mg/dL [facility] Bilirubin, Direct <0.2 0.0 - 0.5 mg/dL [facility] Aspartate Amino Transferase 22 5 - 31 U/L [facility] Alanine Aminotransferase 18 0 - 31 U/L [facility] Total Protein 7.5 6.5 - 8.0 g/dL [facility] Albumin Level 4.0 3.5 - 5.0 g/dL [facility] Alkaline Phosphatase 94 39 - 117 U/L [facility] 09/22/2024 9:36 AM EDT 09/22/2024 11:23 AM EDT Emilie Davis MD LAB BLOOD ORDERABLES Final Result Performing Organization Address [facility] Co de Phone Number [facility] [address] [place] [phone] documented in this encounter Visit Diagnoses Not on filedocumented in this encounter Additional Health Concerns Assessment Noted Time PHQ-9 Depression Total Score: 3 04/30/20 23 9:17 AM EST documented as of this encounter Care Teams Stamp Collector Relationship Specialty Start Date End Date Emilie Davis MD [address] [place] [address] PCP - General Family Medicine 05/13/18 Morales Echavarria FNP [address] [place] [address] Nurse Practitioner Family Medicine 04/16/23August [address] [place] [address] 3[address] [place] [address] Gastroenterology 05/26/24 Fred Castanon [address] [place] [address] 07/21/24 documented as of this encounter
--- OUTSIDE RECORDS SUMMARY | 2024-09-25 15:05 | XMS_ITS | Encounter Summary ---
Author Organization [employer] Address [address] [facility] 7t [place] [address] Care Team Providers Care Actuarial Science Professor Name Role Phone Emilie Davis MD Primary Care Provider +1- [phone] Morales Echavarria EMAIL MARKETING INTERN Unavailable Unavailable August Unavailable Fred Castanon Unavailable Encounter Details Date Type Department Care Team (Late st Contact Info) Description 04/22/2022 Orders Only [facility] [address] [place], [place] [phone] Emilie Davis MD [address] [place], [place] [phone] HSV (herpes simplex virus) anogenital infection (Primary [...] Description 11/16/2024 1:00 PM EDT Clinical Support [facility] MEDICINE 230 [place], [place] [phone] Medina Lewis, RONALD [address] [place] [address] documented as of this encounter Visit Diagnoses Diagnosis HSV (herpes simplex virus) anogenital infection- Primary Herpes simplex without mention of complication documented in this encounter Care Teams Actuarial Science Professor Relationship Specialty Start Date End Date Emilie Davis MD 230 [place] [address] PCP - General Family Medicine 05/13/18 Morales Echavarria FNP [address] [place] [address] Nurse Practitioner Family Medicine 04/16/23 Aida Orozco [address] [place] [address] Gastroenterology 05/26/24 Fred Castanon [address] [place] [address] 07/21/24 documented as of this encounter
--- OUTSIDE RECORDS SUMMARY | 2024-09-25 15:05 | XMS_ITS | Encounter Summary ---
Author Organization [employer] [facility] Address [address] [facility] 7t [place] [address] Care Team Providers Care Redeye Gunner Name Role Phone Emilie Davis MD Primary Care Provider +- [phone] Morales Echavarria CRAFT DEMONSTRATOR Unavailable Unavailable August Unavailable Fred Castanon Unavailable Reason for Visit * Reason Comments Med Refill Encounter Details Date Type Department Care Team (Late st Contact Info) Description 06/27/2022 Refill [facility] MEDICINE [address] [place] [address] Emilie Davis MD [address] [place] [address] Social History Tobacco Use Types Packs/Day Years [...] Description 11/16/2024 1:00 PM EDT Clinical Support [facility] MEDICINE [address] [place] [address] [phone] Medina Lewis, RONALD [address] [place] [address] documented as of this encounter Visit Diagnoses Not on filedocumented in this encounter Care Teams Redeye Gunner Relationship Specialty Start Date End Date Emilie Davis MD 230 [place] [address] PCP - General Family Medicine 05/13/18 Morales Echavarria FNP 230 [place] [address] Nurse Practitioner Family Medicine 04/16/23 Aida Orozco [address] [address] Gastroenterology 05/26/24 Fred Castanon [address] [place] [address] 07/21/24 documented as of this encounter
--- OUTSIDE RECORDS SUMMARY | 2024-09-25 15:05 | XMS_ITS | Encounter Summary ---
Author Organization [employer] [facility] Address [address] [facility] 7t [place] [address] Care Team Providers Care Housing Officer Name Role Phone Emilie Davis MD Primary Care Provider +1- [phone] Morales Echavarria Unavailable Unavailable August Unavailable Fred Castanon Unavailable Reason for Visit * Reason Comments Med Refill Encounter Details Date Type Department Care Team (Late st Contact Info) Description 01/01/2023 Refill [facility] MEDICINE 230 [place] [address] Emilie Davis MD 230 [place] [address] Social History Tobacco Use Types Packs/Day Years [...] 8:54 AM EDT T/C to patient via parakeet raiser regarding x-ray result. No answer, message left [...] Description 11/16/2024 1:00 PM EDT Clinical Support [facility] MEDICINE [address] [place] [address] Medina Lewis, RONALD [address] [place] [address] documented as of this encounter Visit Diagnoses Not on filedocumented in this encounter Additional Health Concerns Assessment Noted Time PHQ-9 Depression Total Score: 19 023 9:24 AM EDT documented as of this encounter Care Teams Housing Officer Relationship Specialty Start Date End Date Emilie Davis MD [address] [place] [address] PCP - General Family Medicine 05/13/18 Morales Echavarria FNP [address] [place] [address] Nurse Practitioner Family Medicine 04/16/23August [address] [place] [address] Gastroenterology 05/26/24 Fred Castanon [address] [place] [address] 07/21/24 documented as of this encounter
--- OUTSIDE RECORDS SUMMARY | 2024-09-25 15:05 | XMS_ITS | Encounter Summary ---
Author Organization [employer] Address [address] [facility] [address] [facility] [address] 7t [place] [address] Care Team Providers Care Concrete Analyst Name Role Phone Emilie Davis MD Primary Care Provider +1- [phone] Morales Echavarria SURGICAL ASSISTANT CERTIFIED Unavailable Unavailable August Unavailable Fred Castanon Unavailable Reason for Visit * Reason Onset Date Comments Referral 07/20/2024 Encounter Details Date Type Department Care Team (Late st Contact Info) Description 07/20/2024 Telephone [facility] MEDICINE 230 [place] [address] Emilie Davis MD [address] [place] [address] Referral Social History Tobacco Use Types Packs/Day [...] 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 Contact pt at [phone] documented in this encounter Plan of Treatment Upcoming Encounters Date Type Department Care Team (Late st Contact Info) Description 11/16/2024 1:00 PM EDT Clinical Support [facility] MEDICINE 230 [place] [address] Medina Lewis, RONALD [address] [place] [address] documented as of this encounter Visit Diagnoses Not on filedocumented in this encounter Additional Health Concerns Assessment Noted Time PHQ-9 Depression Total Score: 3 04/30/20 23 9:17 AM EST documented as of this encounter Care Teams Concrete Analyst Relationship Specialty Start Date End Date Emilie Davis MD 230 [place] [address] PCP - General Family Medicine 05/13/18 Morales Echavarria FNP [address] [place] [address] Nurse Practitioner Family Medicine 04/16/23 [facility] [address] [address] Gastroenterology 05/26/24 Fred Castanon [address] [place] [address] 07/21/24 documented as of this encounter
--- OUTSIDE RECORDS SUMMARY | 2024-09-25 15:05 | XMS_ITS | Continuity of Care Document ---
Author Organization [facility] Address [address] [place] [address] [address] [place] [phone] Phone Care Team Providers Care Oracle Manufacturing Consultant Name Role Phone Josue MARISCAL, KATHY, Manish [...] [place]- [place] & [place] [facility], [address] [place] [address] Dr [address], [id number], [place] tel:[phone] CV[facility] - [place] - [place] Chronic venous hypertension (idiopathic) without complications of bilateral lower extremityRestle ss legs syndromePruritu s, unspecifiedPain in left legCramp and spasmLocalized edema 5 Josue MARISCAL, KATHY, ANDRE Hammond. [address], [address], [place], [place], [id number] , [place]. tel:[phone] Referring Provider: Emilie Wya, [address] [facility], [place], [address]. tel:[phone] [facility], [address], [id number], [place] tel:[phone] [facility] - [place] Varicose veins of bilateral lower extremities with pain Josue MARISCAL, RVT, RPVI Manish. [address], [address], [facility] [place], [id number] , [place]. tel:[phone] Referring Provider: Emilie [place], [address] [place] [address], [place], [address]. tel:[phone] Family History Family Member Type Diagnosis Age At Onset No Information Payers Payer name Insurance type Covered democrat ID Ramiro gomez(s) [facility] [employer] CI [id number] Social History Type Description Quantity Date Captured [...]
--- OUTSIDE RECORDS SUMMARY | 2024-09-25 15:05 | XMS_ITS | Encounter Summary ---
Author Organization [employer] Address [address] [facility] [address] 7t [place] [address] Care Team Providers Care Circuit Board Drafter Name Role Phone Emilie Davis MD Primary Care Provider +1- [phone] Morales Echavarria Unavailable Unavailable August Unavailable Fred Castanon Unavailable Encounter Details Date Type Department Care Team (Late st Contact Info) Description 03/25/2023 Orders Only [facility] MEDICINE [address] [place] [address] Emiile Davis MD 230 [place] [address] Social History Tobacco Use Types Packs/Day Years [...] Description 11/16/2024 1:00 PM EDT Clinical Support [facility] MEDICINE [address] [place] [address] Medina Lewis RN 230 [place] [address] documented as of this encounter Visit Diagnoses Not on filedocumented in this encounter Additional Health Concerns Assessment Noted Time PHQ-9 Depression Total Score: 10 023 9:08 AM EDT documented as of this encounter Care Teams Circuit Board Drafter Relationship Specialty Start Date End Date Emilie Davis MD [address] [place] [address] PCP - General Family Medicine 05/13/18 Morales Echavarria FNP [address] [place] [address] Nurse Practitioner Family Medicine 04/16/23August [address] [place] [address] 3[address] [place] [address] Gastroenterology 05/26/24 Fred Castanon [address] [place] [address] 07/21/24 documented as of this encounter
--- OUTSIDE RECORDS SUMMARY | 2024-09-25 15:05 | XMS_ITS | Encounter Summary ---
Author Organization [facility] Address [address] [facility] 7t [place] [address] Care Team Providers Care Civil Engineering Intern Name Role Phone Emilie Davis MD Primary Care Provider +1- [phone] Morales Echavarria COOK FISH EGGS Unavailable Unavailable August Unavailable Fred Castanon Unavailable Encounter Details Date Type Department Care Team (Late st Contact Info) Description 11/28/2022 Abstract [facility] MEDICINE [address] [place] [address] Emilie Davis MD 230 [place] [address] Social History Tobacco Use Types Packs/Day Years [...] Description 11/16/2024 1:00 PM EDT Clinical Support [facility] MEDICINE [address] [place] [address] Medina Lewis RN [address] [place] [address] documented as of this encounter Visit Diagnoses Not on filedocumented in this encounter Additional Health Concerns Assessment Noted Time PHQ-9 Depression Total Score: 19 023 9:24 AM EDT documented as of this encounter Care Teams Civil Engineering Intern Relationship Specialty Start Date End Date Emilie Davis MD [address] [place] [address] PCP - General Family Medicine 05/13/18 Morales Echavarria FNP [address] [place] [address] Nurse Practitioner Family Medicine 04/16/23 Aida Orozco [address] [address] Gastroenterology 05/26/24 Fred Castanon [address] [place] [address] 07/21/24 documented as of this encounter
[2024-09-25 15:14] VITALS: BMI 18.9
== END 2024-09-25 15:42 | disposition home or self-care (01) ==
LOC: HO.HGI 15:02
PROVIDERS: Visit Provider Nurse Practitioner
DX: K21.9 Gastro-esophageal reflux disease without esophagitis (principal); R11.10 Vomiting, unspecified; K22.10 Ulcer of esophagus without bleeding; R13.10 Dysphagia, unspecified; Z83.719 Family history of colon polyps, unspecified; K59.09 Other constipation; R10.10 Upper abdominal pain, unspecified
CPT/HCPCS: 99214

== ENCOUNTER → 2024-09-25 15:01 | Outpatient (BNVA) | payer OTHER, SELFPAY | PROVIDERS: Visit Provider Nurse Practitioner | DX: K21.9 Gastro-esophageal reflux disease without esophagitis (principal); K22.10 Ulcer of esophagus without bleeding; R11.10 Vomiting, unspecified; K59.09 Other constipation; R13.10 Dysphagia, unspecified; R10.10 Upper abdominal pain, unspecified; Z83.719 Family history of colon polyps, unspecified | CPT/HCPCS: 99212 ==

== ENCOUNTER 2024-09-29 08:15 | Outpatient (RCR) | payer OTHER, SELFPAY | END 2024-12-25 16:24 | disposition home or self-care (01) | LOC: HO.PT 08:15 | PROVIDERS: PCP Family Medicine; Visit Provider Family Medicine | DX: M62.830 Muscle spasm of back (principal) | CPT/HCPCS: 97110; 97161; 97535 ==

== ENCOUNTER 2024-10-02 09:39 | Outpatient (REF) | payer OTHER, SELFPAY ==
--- NOTE | ~2024-10-02 | XR_ITS ---
EXAMINATION: XR ABDOMEN KUB CLINICAL INDICATION: 54 y.u adult with acute left flank pain; concern for renal stone COMPARISON: None available. TECHNIQUE: AP view of the abdomen. FINDINGS: No gross calcifications overlapping the kidney shadow. Vascular clips right upper quadrant abdomen likely related to cholecystectomy. Abundant stool. No intestinal dilatation. Gas throughout the intestine. Multilevel spondylosis, L5-S1. XR/XR KUB IMPRESSION: No obvious calculus, renal shadow. Electronically signed by: Eric Daley MD 10/02/2024 10:34 AM EDT
--- OUTSIDE RECORDS SUMMARY | 2024-10-02 09:53 | XMS_ITS | Encounter Summary ---
Author Organization [facility] Address [address] [facility] 7t [place] [address] Care Team Providers Care Firmware Software Verification Engineer Name Role Phone Emilie Davis MD Primary Care Provider +1- [phone] Morales Echavarria VICE PRESIDENT OF TALENT MANAGEMENT Unavailable Unavailable August Unavailable Fred Castanon Unavailable Reason for Visit * Reason Onset Date Comments Referral 07/18/2022 Encounter Details Date Type Department Care Team (Late st Contact Info) Description 07/18/2022 Telephone [facility] MEDICINE [address] [place] [address] Emilie Davis MD 230 [place] [address] Referral Social History Tobacco Use Types Packs/Day [...] [facility]. Please contact pt [phone] documented in this encounter Plan of Treatment Upcoming Encounters Date Type Department Care Team (Late st Contact Info) Description 11/16/2024 1:00 PM EDT Clinical Support [facility] MEDICINE [address] [place] [address] Medina Lewis, RN [address] [place] [address] documented as of this encounter Visit Diagnoses Not on filedocumented in this encounter Care Teams Firmware Software Verification Engineer Relationship Specialty Start Date End Date Emilie Davis MD [address] [place] [address] PCP - General Family Medicine 05/13/18 Morales Echavarria FNP [address] [place] [address] Nurse Practitioner Family Medicine 04/16/23 Aida Orozco [address] [place] [address] 3rd [place] [address] Gastroenterology 05/26/24 Fred Castanon [address] [place] [address] 07/21/24 documented as of this encounter
[2024-10-02 11:50] LABS: Estimated Average Glucose 111 mg/dL; Hemoglobin A1C 144.4628 umol/L; Hemoglobin A1c % 5.5 % (<6.0); Rheumatoid Factor < 13.0 IU/mL (<15.0)
[2024-10-02 12:06] LABS: C Reactive Protein 0.95 mg/dL (< or = 0.50)
[2024-10-02 12:17] LABS: Erythrocyte Sedimentation Rate 37 MM/HR (0-20)
[2024-10-02 12:25] LABS: TSH reflex Free T4 0.76 uIU/mL (0.32-4.0)
[2024-10-02 12:29] LABS: Vitamin B12 478 pg/mL (200-900)
[2024-10-03 09:19] LABS: Lyme Abs Screen <0.90 index
[2024-10-06 15:28] LABS: CRP High Sensitivity 8.4 mg/L
[2024-10-06 16:22] LABS: Vitamin D 25-OH, D2 <4 ng/mL; Vitamin D 25-OH, D3 25 ng/mL; Vitamin D 25-OH, Total 25 ng/mL (30-100)
== END 2024-10-02 09:40 | disposition home or self-care (01) ==
LOC: HO.HHCX 09:39
PROVIDERS: Nurse Practitioner Family; Visit Provider Registered Nurse
DX: R10.9 Unspecified abdominal pain (principal); M15.4 Erosive (osteo)arthritis; R51.9 Headache, unspecified; R06.09 Other forms of dyspnea; I25.10 Atherosclerotic heart disease of native coronary artery without angina pectoris; E78.5 Hyperlipidemia, unspecified; I10 Essential (primary) hypertension; F32.A Depression, unspecified
CPT/HCPCS: 36415; 74018; 82306; 82607; 82746; 83036; 84402; 84403; 84443; 85652; 86038; 86140; 86141; 86431; 86617; 86618; 87086

== ENCOUNTER → 2024-10-02 09:39 | Outpatient (BNV) | payer OTHER, SELFPAY | PROVIDERS: Visit Provider Radiology Diagnostic Radiology | DX: M47.896 Other spondylosis, lumbar region (principal) | CPT/HCPCS: 74018 ==

== ENCOUNTER 2024-10-02 09:59 | Outpatient (REF) | payer OTHER, SELFPAY | END 2024-10-02 10:00 | disposition home or self-care (01) | LOC: HO.HHCL 09:59 | PROVIDERS: Visit Provider Registered Nurse | DX: Z13.89 Encounter for screening for other disorder (principal) ==

== ENCOUNTER 2024-10-12 16:18 | Outpatient (REF) | payer OTHER, SELFPAY ==
--- NOTE | ~2024-10-12 | MR_ITS ---
CLINICAL HISTORY: R51.9 - Headache, unspecified --- Additional Notes or Special Instructions: Assessi ng for secondary etiologies of new onset left-sided headache c w MR brain with and without IV contrast. COMPARISON: None FINDINGS: No abnormal diffusion restriction in the brain parenchyma or extra-axial spaces. No abnormal enhancement within the brain or meninges. No evidence of mass, mass effect or midline shift. No intracranial hemorrhage or abnormal extra-axial fluid collection. No evidence of hydrocephalus. The basilar cisterns are patent. Few scattered areas of T2/FLAIR hyperintensity within the hernandez radiata in the frontal lobes bilaterally consistent with mild white-matter small-vessel disease. Cerebellar hemispheres and cerebellar vermis are normal. Fourth ventricle is normal. No brainstem abnormality is identified. Intracranial flow voids are patent. The visualized paranasal sinuses and mastoid air-cells are clear. IMPRESSION: 1. No acute intracranial findings. 2. Mild white-matter small-vessel disease. This document has been electronically signed by: Juan Álvarez MD on 10/13/2024 16:52:13
--- NOTE | ~2024-10-12 | MR_ITS ---
CLINICAL HISTORY: R51.9 - Headache, unspecified --- Additional Notes or Special Instructions: Assessi ng for secondary etiologies of new onset left-sided headache c w MR venography of the brain with and without contrast. COMPARISON: MR brain dated 10/12/24 at 16:46 EDT FINDINGS: Normal enhancement within the superior sagittal sinus and straight sinus. There is normal enhancement within the bilateral transverse and sigmoid sinuses. There is normal enhancement within the bilateral proximal internal jugular veins. The visualized cortical venous structures are unremarkable. IMPRESSION: 1. No evidence of dural sinus thrombosis. This document has been electronically signed by: Juan Álvarez MD on 10/13/2024 16:49:41
--- OUTSIDE RECORDS SUMMARY | 2024-10-12 17:07 | XMS_ITS | Encounter Summary ---
Author Organization [employer] [facility] Address [address] [facility] 7t [place] [address] Care Team Providers Care Manager Furniture Name Role Phone Emilie Davis MD Primary Care Provider +1- [phone] Morales Echavarria VALLEZ FILTER OPERATOR Unavailable Unavailable August Unavailable Fred Castanon Unavailable Reason for Visit * Reason Onset Date Comments Referral 07/18/2022 Encounter Details Date Type Department Care Team (Late st Contact Info) Description 07/18/2022 Telephone [facility] MEDICINE 230 [place] [address] Emilie Davis MD 230 [place] [address] Referral Social History Tobacco Use Types Packs/Day [...] to [facility] center. Please contact pt [phone] documented in this encounter Plan of Treatment Upcoming Encounters Date Type Department Care Team (Late st Contact Info) Description 11/16/2024 1:00 PM EDT Clinical Support [facility] MEDICINE [address] [place] [address] Medina Lewis, RN [address] [place] [address] documented as of this encounter Visit Diagnoses Not on filedocumented in this encounter Care Teams Manager Furniture Relationship Specialty Start Date End Date Emilie Davis MD [address] [place] [address] PCP - General Family Medicine 05/13/18 Morales Echavarria FNP [address] [place] [address] Nurse Practitioner Family Medicine 04/16/23 Aida Orozco [address] [place] [address] 3rd [place] [address] Gastroenterology 05/26/24 Fred Castanon [address] [place] [address] 07/21/24 documented as of this encounter
[2024-10-12] MEDS: gadobutroL 10 ML VIAL IVPUSH (17:25)
== END 2024-10-12 16:19 | disposition home or self-care (01) ==
LOC: HO.MRI 16:18
PROVIDERS: PCP Family Medicine; Visit Provider Nurse Practitioner Family
DX: G44.009 Cluster headache syndrome, unspecified, not intractable (principal); I10 Essential (primary) hypertension; E78.5 Hyperlipidemia, unspecified; Q04.8 Other specified congenital malformations of brain
CPT/HCPCS: 70546; 70553; A9585

== ENCOUNTER → 2024-10-12 16:49 | Outpatient (BNV) | payer OTHER, SELFPAY | PROVIDERS: PCP Family Medicine; Visit Provider Radiology Diagnostic Radiology | DX: R51.9 Headache, unspecified (principal) | CPT/HCPCS: 70546; 70553 ==

== ENCOUNTER → 2024-10-13 08:01 | Outpatient (REF) | payer OTHER, SELFPAY ==
--- NOTE | ~2024-10-13 | NM_ITS ---
Lexiscan Myocardial perfusion study Indication: Coronary artery disease Technique: The patient was brought in for a Lexiscan perfusion study on 10/13/2024 and was injected 0.4 mg of Lexiscan intravenously. Within a minute of this injection 25 mCi of sestamibi was given intravenously. Images were obtained using the SPECT gamma camera interlaced with the gating device. Images were obtained in supine position. Resting perfusion study was performed on 10/14/2024. Patient was administered 25 mCi of sestamibi intravenously at rest. Images were then obtained in supine position. Total DLP 64 mGy-cm. Images were processed with the software and compared side to side in short axis, horizontal long axis and vertical long axis views. Findings: Raw aquisition reviewed. The stress perfusion study showed no significant perfusion abnormality. Both uncorrected as well as CT attenuation corrected images were reviewed. The gated study shows normal LV systolic function with calculated LVEF of 49%-visually normal. LV cavity is normal in size. The gated study shows normal wall thickening and contraction of segments. Resting study shows reduced tracer uptake in the distal part of inferior wall. There is improvement with CT attenuation correction and hence suggestive of diaphragmatic attenuation artifact. Gating at rest reveals normal wall motion with ejection fraction at 58%. The findings are consistent with no clear reversible or fixed perfusion defects. NM/NM cardiolite stress test Impression: 1. Myocardial perfusion imaging study shows normal myocardial perfusion. 2. Gated LVEF is 58% during rest; visually normal during stress. 3. Transient ischemic dilatation not present. EKG component of the test reported separately. Electronically signed by: Rasta Gloria MD 10/14/2024 03:53 PM EDT
--- OUTSIDE RECORDS SUMMARY | 2024-10-13 08:05 | XMS_ITS | Encounter Summary ---
Author Organization [facility] Address 75 [facility] 7t [place] [address] Care Team Providers Care Box Covering Machine Operator Name Role Phone Emilie Davis MD Primary Care Provider +1- [phone] Morales Echavarria COMMUNITY SUPPORT SPECIALIST Unavailable Unavailable August Unavailable Fred Castanon Unavailable Reason for Visit * Reason Onset Date Comments Referral 07/18/2022 Encounter Details Date Type Department Care Team (Late st Contact Info) Description 07/18/2022 Telephone [facility] MEDICINE 230 [place] [address] Emilie Davis MD 230 [place] [address] Referral Social History Tobacco Use Types Packs/Day [...] [facility]. Please contact pt [phone] documented in this encounter Plan of Treatment Upcoming Encounters Date Type Department Care Team (Late st Contact Info) Description 11/16/2024 1:00 PM EDT Clinical Support [facility] MEDICINE [address] [place] [address] Medina Lewis, RN [address] [place] [address] documented as of this encounter Visit Diagnoses Not on filedocumented in this encounter Care Teams Box Covering Machine Operator Relationship Specialty Start Date End Date Emilie Davis MD [address] [place] [address] PCP - General Family Medicine 05/13/18 Morales Echavarria FNP [address] [place] [address] Nurse Practitioner Family Medicine 04/16/23 Aida Orozco [address] [place] [address] 3rd [place] [address] Gastroenterology 05/26/24 Fred Castanon [address] [place] [address] 07/21/24 documented as of this encounter
--- NOTE | 2024-10-13 08:08 | CA_ITS ---
Acquisition Time: 2024-10-13 09:39:14 Total Exercise Time: 00:06:15 Test Indications: CAD,Dyspnea Medications: SEE H&P Protocol: MARYANN Max HR: 117 BPM 70% of Pred: 165 BPM Max BP: 132/70 mmHG Max Work Load: 7.3 METS Exercise stress test with exercise 6 mins 15 secs sof Maryann Protocol, achieving 54% MPHR, requesting to stop due to speed. No chest pain. Test switched to Lexiscan. Pharmacological stress test with Lexiscan while pt continued to walk slow on treadmill, with reports of SOB and dizziness, without any arrythmias, with normotensive response to injection. Nondiagnostic EKG for ischemia. In recovery, pt treated with IVP Aminophylline 75 mg to reverse Lexiscan after which pt feeling back to baseline. Nuclear images pending. Test reviewed with Dr. Gloria. Referred By: Fred Castanon Electronically Signed By: Gregg Burgos
--- NOTE | 2024-10-13 08:08 | CA_ITS ---
Transthoracic Echocardiogram Patient (Last, First, Middle): Harriet Valdez, Gender: Female Date of : 1970 Age: 54 Procedure Date: 10/13/2024 Procedure Type: Transthoracic Echocardiogram Location: OP Height: 165.1 cm Weight: 51.71 kg BSA: 1.56 m2 Heart Rate: bpm BP: 110 / 64 mmHg Lunch Cook: TO/RC Referring MD: Fred Castanon MD Symptoms: R06.09 - Other forms of dyspnea Study Quality: Adequate Conclusions: - Normal left ventricular size, thickness, systolic function, and wall motion. The visually estimated ejection fraction is between 55-60%. Diastolic function is normal for age. Normal global longitudinal strain -20%. - Normal right ventricular cavity size and systolic function. - The right atrium is mildly dilated. Findings Left Ventricle Normal left ventricular size, thickness, systolic function, and wall motion. The visually estimated ejection fraction is between 55-60%. Diastolic function is normal for age. Normal global longitudinal strain -20%. Right Ventricle Normal right ventricular cavity size and systolic function. Atria The left atrium is normal in size. The right atrium is mildly dilated. Aortic Valve Normal aortic valve structure and function. There is no aortic valve stenosis. There is no aortic valve regurgitation. Mitral Valve The mitral valve appears normal. There is trace mitral valve regurgitation. There is no mitral valve stenosis. Pulmonic Valve The pulmonic valve is normal. There is trace pulmonic valve regurgitation. Tricuspid Valve Normal tricuspid valve structure. There is trace tricuspid valve regurgitation. Normal right atrial pressure. There is no evidence of pulmonary hypertension. Great Vessels The visualized portions of the pulmonary artery and branches are normal. Venous The inferior vena cava is normal in size and collapses greater than 50% with inspiration. Pericardium/Pleural There is no evidence of pericardial effusion. Prior Study Comparison Changes noted compared to prior study dated: 09/12/2021. RA mildly dilated. Measurements 2D Linear Measurements IVSd: 0.82 0.6-0.9/0.6-1.0 cm LVIDd: 4.31 3.9-5.3/4.2-5.9 cm LVIDd Index: 2.76 2.4-3.2/2.2-3.1 cm/m2 LVIDs: 2.88 2.0-3.6 cm LVPWd: 0.73 0.7-1.1 cm LA Diam: 3.20 2.7-3.8/3.0-4.0 cm LAIDs Index: 2.05 1.5-2.3 cm/m2 LV Mass: 126.66 67-162/88-224 g LV Mass Index: 81.19 43-95/49-115 g/m2 LVOT Diam: 2.00 3.0+(-)1.3 cm 2D Systolic Function EF 4C: 58.40 >55% EF 2C: 55.50 >55% EF BiP: 55.80 >55% Mitral Valve MV Pk E: 0.66 MV PK A: 0.65 MV Decel Time: 304.00 E/A: 1.00 E'Lateral: 8.70 E'Medial: 6.09 E/E' Med: 10.80 E/E' Lat: 7.60 PHT: 89.00 MVA PHT: 2.47 Decel Butts: 2.27 Aortic Valve AoV Pk Kiel: 0.91 AoV Mn Kiel: 0.69 AoV VTI: 0.21 AoV Pk Grad: 3.00 Aov Mn Grad: 2.00 SANDI Cont.VTI: 2.09 LVOT LVOT Pk Kiel: 0.67 LVOT Mn Kiel: 0.43 LVOT VTI: 0.14 LVOT Pk Grad: 2.00 LVOT Mn Grad: 1.00 LVOT Diam: 2.00 LVOT Area: 3.14 Diastolic Function MV Pk E: 0.66 MV Pk A: 0.65 E/A: 1.00 E'Medial: 6.09 E/E' Med: 10.80 E' Laterial: 8.70 E/E' Lat: 7.60 Right Ventricle TAPSE (mm): 22.60 TVS' Kiel: 10.10 Tricuspid Valve TR Pk Kiel: 1.91 TR Pk Grad: 15.00 RA Press: 3.00 RVSP: 18.00 Great Vessels Aorta Sinus of Valsalva: 2.95 2.0-3.5 cm Ao Asc: 3.30 2.1-3.4 cm Updated in Other Vendor System with Status of Final Fred Castanon MD electronically signed on 10/14/2024 1:14:16 PM with status of Final
== END ==
LOC: HO.CARD 08:01
PROVIDERS: PCP Family Medicine; Visit Provider Internal Medicine Cardiovascular Disease
DX: R06.09 Other forms of dyspnea (principal)
CPT/HCPCS: 78452; 93017; 93306; A9500; J0280; J2785

== ENCOUNTER → 2024-10-13 08:08 | Outpatient (BNV) | payer OTHER, SELFPAY | PROVIDERS: PCP Family Medicine | DX: I25.10 Atherosclerotic heart disease of native coronary artery without angina pectoris (principal); R06.02 Shortness of breath | CPT/HCPCS: 78452; 93016; 93018; 93350; 93356 ==

== ENCOUNTER → 2024-10-20 08:06 | Outpatient (REF) | payer OTHER, SELFPAY ==
--- NOTE | ~2024-10-20 | NM_ITS ---
EXAMINATION: NM RADIONUCLIDE SOLID FOOD GASTRIC EMPTYING 4-HOUR STUDY CLINICAL INFORMATION: Vomiting. Right upper quadrant pain. COMPARISON: None TECHNIQUE: A standard meal consisting of 4 oz of Egg Beaters brand tagged with 0.82 microcuries Tc-99m Sulfur Colloid, 8 oz water and 2 slices of toast with jelly was administered orally to the patient. Images were obtained using a dual head gamma camera in the anterior and posterior projections over of the stomach immediately post ingestion and at hourly intervals up to 4 hours post ingestion. The anterior and posterior counts at each time interval were averaged using the geometric mean and expressed as percentage of the immediate post ingestion counts. FINDINGS: There is good visualization of activity in the stomach immediately post ingestion. As the study progresses, there is good clearance of activity from the stomach and visualization of progressively increasing small bowel activity. By the end of the study, there is almost no retention noted in the stomach. Retention in the stomach at each time interval was: 1 hour 87% (normal 37%-90%) 2 hours 58% (normal 30%-60%) 3 hours 16% 4 hours 8% (normal 0%-10%) NM/NM gastric emptying study IMPRESSION: Normal 4-hour solid food gastric emptying study. For solid meal, rapid gastric emptying is less than 30% at 60 minutes. Delayed gastric emptying criteria is more than 60% remaining at 120 minutes or more than 10% at 240 minutes. The 4-hour value is the best discriminator of a normal or abnormal result). Gastric emptying study grading per JNMT Consensus Recommendations in 2008 (https://tech.snmjournals.org/content/36/1/44) Grade 1 (mild retention): 11-20% at 4h Grade 2 (moderate retention): 21-35% at 4h Grade 3 (severe retention): 36-50% at 4h Grade 4 (very severe retention): >50% retention at 4h Electronically signed by: Jimmy Pedroza MD 10/20/2024 01:41 PM EDT
--- OUTSIDE RECORDS SUMMARY | 2024-10-20 08:13 | XMS_ITS | Encounter Summary ---
Author Organization [employer] [facility] Address [address] [place] [address] Care Team Providers Care Lead Furnace Operator Name Role Phone Emilie Davis MD Primary Care Provider [phone] Morales Echavarria ASSISTANT INFANT TODDLER TEACHER Unavailable Unavailable August Unavailable Fred Castanon Unavailable Reason for Visit * Reason Onset Date Comments Referral 07/18/2022 Encounter Details Date Type Department Care Team (Late st Contact Info) Description 07/18/2022 Telephone [facility] [address] [place] [address] Emilie Davis MD [address] [place] [address] Referral Social History Tobacco Use Types Packs/Day [...] to our [facility]. Please contact pt [phone] documented in this encounter Plan of Treatment Upcoming Encounters Date Type Department Care Team (Late st Contact Info) Description 11/16/2024 1:00 PM EDT Clinical Support [facility] [address] [place] [address] Medina Lewis, RN [address] [place] [address] documented as of this encounter Visit Diagnoses Not on filedocumented in this encounter Care Teams Lead Furnace Operator Relationship Specialty Start Date End Date Emilie Davis MD [address] [place] [id number] PCP - General Family Medicine 05/13/18 Morales Echavarria FNP [address] [place] [id number] Nurse Practitioner Family Medicine 04/16/23 Aida Orozco [address] [place] [address] [address] [place] [address] Gastroenterology 05/26/24 Fred Castanon [address] [place] [id number] 07/21/24 documented as of this encounter
== END ==
LOC: HO.NUCMED 08:06
PROVIDERS: PCP Family Medicine; Visit Provider Nurse Practitioner
DX: R10.11 Right upper quadrant pain (principal); K21.9 Gastro-esophageal reflux disease without esophagitis
CPT/HCPCS: 78264; A9541

== ENCOUNTER → 2024-10-20 08:08 | Outpatient (BNV) | payer OTHER, SELFPAY | PROVIDERS: PCP Family Medicine; Visit Provider Radiology Diagnostic Radiology | DX: R11.10 Vomiting, unspecified (principal) | CPT/HCPCS: 78264 ==

== ENCOUNTER 2024-10-22 10:00 | Outpatient (AMB) | payer OTHER, SELFPAY ==
--- NOTE | 2024-10-22 10:04 | MHC.OFFVIS ---
Vital Signs 10/22/24 10:18 Height 5 ft 4 in Weight 114 lb 4 oz BMI 19.6 BP 114/66 Blood Pressure Location Lt brachial Position Sitting Pulse 62 Pulse Source Pulse Oximeter Pulse Oximetry (%) 99 Oxygen Delivery Method Room Air Intake Visit Reasons: eval LInzess, sucralfate Intake Note: Established patient for mgmt of GERD + CIC CC; Pt denies any GI sx or concerns at this time. Comments that they have had a positive response to the new tx. Pv Design And Installation Technician Required: Yes Pv Design And Installation Technician Services: Pv Design And Installation Technician Offered & Declined Accompanied by: Family/Other Allergies black pepper Allergy (Severe, Verified 10/22/24 10:05) Anaphylaxis Penicillins [PENICILLINS] Allergy (Intermediate, Verified 10/22/24 10:05) HIVES,SWELLING sumatriptan [SUMATRIPTAN] Adverse Reaction (Severe, Verified 10/22/24 10:05) PT STATES HEART ATTACK HPI HPI eval LInzess, sucralfate: Details: Assessment & Plan (1) GERD (gastroesophageal reflux disease): Code(s): K21.9 - Gastro-esophageal reflux disease without esophagitis Category: Medical (2) Vomiting: Code(s): R11.10 - Vomiting, unspecified Category: Medical (3) Erosive esophagitis: Code(s): K22.10 - Ulcer of esophagus without bleeding Category: Medical (4) Dysphagia: Comment: History of EGD with dilation x2 Savary(Desilets-2017) dilation as well as balloon dilation(Mukesh-2017) Chew well, eat slowly, EGD possible dilation Code(s): R13.10 - Dysphagia, unspecified Category: Medical (5) Family history of polyps in the colon: Comment: Mother Code(s): Z83.719 - Family history of colon polyps, unspecified Category: Medical (6) Chronic constipation: Code(s): K59.09 - Other constipation Category: Medical (7) Upper abdominal pain: Code(s): R10.10 - Upper abdominal pain, unspecified Category: Medical Plan Vincentian Freddie Jones ( [facility]) He never received the carafate in the liquid form, this may be insurance driven. He is doing much worse since I last saw him. The chest burning and discomfort continues but he stopped the omeprazole because that made him feel more nauseated and more bloated. We did educate him that he could crush a grind the pill and put it in applesauce or even in juice to make it more palatable since the objection to the pill form was the taste. He has done well in the past on liquid Carafate and that is why we were trying to reinstate this. He is having severe constipation lately. He is using [id number] Dulcolax but even then he is only moving small amounts and having incomplete evacuation. If he did not take anything he would only have a bowel movement every 5 or 6 days and become extremely bloated. While the Dulcolax is moving his bowels a little bit he is having severe cramping with it so this is clearly not an optimal solution. I think will start Linzess 145 micro g and titrate to affect her side effect. This will also help to offset any of the constipating effects of the sucralfate. He is having trouble were food will go down but then will come back up and he will have to vomit it. I am uncertain if this is because it is getting stuck in the esophagus, or whether he might have delayed gastric emptying. While he is not a diabetic this has been going on for some time and there is also something that seems to be contributing to his need for continued esophageal dilation so I think we are going to get both a gastric emptying study and a barium swallow. This will help us see if gastric motility is contributing to the problem and if there is also something like esophageal dysmotility or a large paraesophageal hernia contributing to the dysfunction. He is agreeable to having these tests. He has been researching H pylori as the source of bloating and although all of the upper endoscopies in the past have been negative for this bacteria I will order a stool sample since it is a simple test. I believe that he may have a component of bile gastritis and GERD despite the lack of diarrhea as he is status post cholecystectomy. He says that he is utilizing dicyclomine because he finds that this is helpful with cramping and bloating. He knows it as Bentyl. In the past he had a dilation of both the pyloric outlet and the end of the esophagus with some help with the swallowing. Other than that there was no severe pathology discovered. He says that he has a family history of colon polyps in his mother and that he had a polyp removed when he was in [place] many years ago. Because of this will get an EGD and a colonoscopy. He denies any cardiac or respiratory problems. There are no prior problems with anesthesia or sedation. There are no infectious disease problems. I want to see him back in 3-4 weeks to evaluate the Linzess and titrate it. I will try sending the sucralfate again in the liquid form but if not we will need to send and additional prescription in the tablet form so that he can crush or dissolve it. Orders: Orders NM gastric emptying study Today K21.9 - Gastro-esophageal reflux disease without esophagitis, R11.10 - Vomiting, unspecified FL barium swallow Today K21.9 - Gastro-esophageal reflux disease without esophagitis, R11.10 - Vomiting, unspecified H pylori Ag Stool Today R10.10 - Upper abdominal pain, unspecified EGD/Pisek Combo - GI Use Only Today R13.10 - Dysphagia, unspecified, Z83.719 - Family history of colon polyps, unspecified Medications: New linaclotide (Linzess) Take first thing in the morning with a full glass of water. 145 mcg PO QAM 30 caps 6RF K58.1 - Irritable bowel syndrome with constipation dicyclomine 10 mg PO QID 120 caps 6RF K21.9 - Gastro-esophageal reflux disease without esophagitis sucralfate 20 mL PO QNOON 1,000 mL 6RF K22.10 - Ulcer of esophagus without bleeding Discontinued dicyclomine Discontinued Reason: Doctor's Order 10 mg PO QID 120 caps 3RF Labs: THE H PYLORI STOOL HAS NOT BEEN OBTAINED BARIUM SWALLOW 01/14/2025 GASTRIC EMPTYING STUDY 10/20/2024 MPRESSION: Normal 4-hour solid food gastric emptying study. EGD/COLONOSCOPY BIOPSY TODAY'S VISIT Vincentian #[facility] Live He has the LInzess but at 145mcg it is not moving the bowels every day, he was using miralax and (? senna) as well in the interim. I will increase the dose. He is also utilizing the sucralfate about every other day. With this the symptoms of nausea vomiting and severe chest burning are getting much better. In fact he feels greatly relieved. This is very encouraging. I remind him now that the bowels are moving do the H pylori stool. Also the barium swallows coming up in January. The EGD/colonoscopy has not yet been scheduled which is normal for how we are running. Return office visit in 5 weeks to titrate the Linzess. [facility] Medical History LEE (dyspnea on exertion) Arthritis Sleep difficulties Occipital neuralgia of left side New onset headache Diverticulosis of colon Chronic, continuous use of opioids Chronic GERD Abdominal pain Palpitations Hypotension History of palpitations Dysphagia Disc degeneration, lumbar Spondylosis of lumbar spine Depression Past heart attack Hyperlipemia Erosive osteoarthritis of hands, bilateral GERD (gastroesophageal reflux disease) Hypertension Surgical History History of cholecystectomy Hx of colonoscopy History of esophagogastroduodenoscopy (EGD) H/O bilateral mastectomy H/O: hysterectomy Family History Mother Hypertension Breast cancer Maternal Grandmother Myocardial infarct Skin cancer Sister Heart problem Breast cancer Family/Other Esophageal cancer Social History Alcohol intake: never Patient Tobacco Use Status: Former Tobacco user Substance Use Type: Marijuana Review of Systems Const Denies fatigue, Denies fever(s), Denies night sweats, Denies poor appetite and Denies weight loss Eyes Details: Glasses Reports requires corrective lenses ENT Reports Normal hearing present, Denies dental pain, Denies dysphagia, Denies hearing loss, Denies mouth pain, Denies odynophagia, Denies throat swelling, Denies tongue swelling and Reports other (Dentition adequate) Card Reports no additional complaints Resp Reports no additional complaints GI Details: Denies abdominal pain, Denies melena, Denies bloating, Denies hematochezia, Reports constipation, Denies GI cramping, Denies dysphagia, Denies excessive flatus, Denies early satiety, Reports heartburn, Denies diarrhea, Denies nausea, Denies odynophagia, Denies vomiting and Denies hematemesis Skin/Breast Denies pruritus, Denies lesions, Denies rash and Denies jaundice Neuro Reports Normal hearing present and Denies Abnormal speech present Endo Denies fatigue Aller/Immun Denies throat swelling and Denies tongue swelling Physical Exam Vital Signs: Last Vital Signs Pulse 62 10/22/24 10:18 BP 114/66 10/22/24 10:18 Pulse Ox 99 10/22/24 10:18 Oxygen Delivery Method Room Air 10/22/24 10:18 BMI result Body Mass Index 19.6 Const General: cooperative, no acute distress, well developed and well groomed Nutritional Appearance: average body habitus and well nourished Orientation/consciousness: oriented to person, oriented to place and oriented to time Limitations: language barrier HEENT Head: Yes normocephalic and Yes atraumatic Eyes General: appearance normal, both eyes and all related structures Pupils: Equal, round and reactive pupils present Neck Neck: Yes normal visual inspection and Yes no lymphadenopathy Thyroid: Thyroid normal Resp Effort & Inspection: normal respiratory effort and able to speak in complete sentences Auscultation: clear to auscultation bilaterally Cardio Rate: regular rate Rhythm: regular rhythm Heart sounds: Normal, physiologic split S2 sound present Peripheral pulses: radial pulses present and posterior tibial pulses present GI Inspection: No distended and No Abdominal panniculus present Palpation (GI): Soft to palpation, nontender, no guarding, not rigid and No hepatosplenomegaly present Percussion: Yes normal to percussion Auscultation: normal bowel sounds Rectal Exam - Female: deferred Skin General skin exam: no rashes or lesions noted, turgor normal, skin not dry, no jaundice, No spider nevi and no striae Rashes: no rashes Nails: normal Neuro General: oriented to person, oriented to place and oriented to time Cranial nerves: Yes Equal, round and reactive pupils present and Yes Normal hearing present Speech: No Abnormal speech present Extrem General: Yes normal to inspection, No clubbing, No cyanosis and No edema Psych Appearance: grossly normal and well kempt Mental Status: mental status grossly normal Speech and movement: Normal speech and movement present Affect: normal affect Attitude: cooperative Thought process: Normal thought process present and not confabulating Thought content: Normal thought content present Insight: Limited insight present (Psych) Judgement: Limited judgement present (Psych) Results Reviewed Results Reviewed: GASTRIC EMPTYING STUDY 10/20/2024 MPRESSION: Normal 4-hour solid food gastric emptying study. Assessment & Plan Assessment & Plan (1) Chronic constipation: Code(s): K59.09 - Other constipation Category: Medical (2) Upper abdominal pain: Code(s): R10.10 - Upper abdominal pain, unspecified Category: Medical (3) Erosive esophagitis: Code(s): K22.10 - Ulcer of esophagus without bleeding Category: Medical (4) Vomiting: Code(s): R11.10 - Vomiting, unspecified Category: Medical (5) GERD (gastroesophageal reflux disease): Code(s): K21.9 - Gastro-esophageal reflux disease without esophagitis Category: Medical (6) Bile reflux gastritis: Code(s): K29.60 - Other gastritis without bleeding Category: Medical (7) Bile reflux esophagitis: Code(s): K21.00 - Gastro-esophageal reflux disease with esophagitis, without bleeding Category: Medical (8) Dysphagia: Comment: History of EGD with dilation x2 Savary(Alejandro-2017) dilation as well as balloon dilation(Mukesh-2017) Chew well, eat slowly, EGD possible dilation Code(s): R13.10 - Dysphagia, unspecified Category: Medical Plan Vincentian #Michelle Live He has the LInzess but at 145mcg it is not moving the bowels every day, he was using miralax and (? senna) as well in the interim. I will increase the dose. He is also utilizing the sucralfate about every other day. With this the symptoms of nausea vomiting and severe chest burning are getting much better. In fact he feels greatly relieved. This is very encouraging. I remind him now that the bowels are moving do the H pylori stool. Also the barium swallows coming up in January. The EGD/colonoscopy has not yet been scheduled which is normal for how we are running. Return office visit in 5 weeks to titrate the Linzess. Labs: THE H PYLORI STOOL HAS NOT BEEN OBTAINED BARIUM SWALLOW 01/14/2025 EGD/COLONOSCOPY BIOPSY Medications: New linaclotide (Linzess) 290 mcg PO QAM 30 caps 6RF 30 days Discontinued linaclotide (Linzess) Take first thing in the morning with a full glass of water. Discontinued Reason: Doctor's Order 145 mcg PO QAM 30 caps 6RF K58.1 - Irritable bowel syndrome with constipation Coding Level of Care Code Est Pt Level 3 (61156) Diagnoses Chronic constipation K59.09 Upper abdominal pain R10.10 Erosive esophagitis K22.10 Vomiting R11.10 GERD (gastroesophageal reflux disease) K21.9 Bile reflux gastritis K29.60 Bile reflux esophagitis K21.00 Dysphagia R13.10
[2024-10-22 10:18] VITALS: BP 114/66; PULSE 62; O2SAT 99; BMI 19.6
--- OUTSIDE RECORDS SUMMARY | 2024-10-22 11:18 | XMS_ITS | Encounter Summary ---
Author Organization [facility] Address [address] [facility] 7t [place] [address] Care Team Providers Care Air Conditioning Specialist Name Role Phone Emilie Davis MD Primary Care Provider +1- [phone] Morales Echavarria VICE PRESIDENT OF COMPLIANCE Unavailable Unavailable August Unavailable Fred Castanon Unavailable Reason for Visit * Reason Onset Date Comments Referral 07/18/2022 Encounter Details Date Type Department Care Team (Late st Contact Info) Description 07/18/2022 Telephone [facility] MEDICINE [address] [place] [address] Emilie Davis MD [address] [place] [address] Referral Social History Tobacco Use Types Packs/Day [...] to our [facility]. Please contact pt [phone] documented in this encounter Plan of Treatment Upcoming Encounters Date Type Department Care Team (Late st Contact Info) Description 11/16/2024 1:00 PM EDT Clinical Support [facility] MEDICINE [address] [place] [address] Medina Lewis, RN [address] [place] [address] documented as of this encounter Visit Diagnoses Not on filedocumented in this encounter Care Teams Air Conditioning Specialist Relationship Specialty Start Date End Date Emilie Davis MD [address] [place] [address] PCP - General Family Medicine 05/13/18 Morales Echavarria FNP [address] [place] [address] Nurse Practitioner Family Medicine 04/16/23 Aida Orozco [address] [place] [address] 3rd [place] [address] Gastroenterology 05/26/24 Fred Castanon [address] [place] [address] 07/21/24 documented as of this encounter
== END 2024-10-22 10:40 | disposition home or self-care (01) ==
LOC: HO.HGI 10:00
PROVIDERS: PCP Family Medicine; Visit Provider Nurse Practitioner
DX: K59.09 Other constipation (principal); R10.10 Upper abdominal pain, unspecified; K22.10 Ulcer of esophagus without bleeding; R11.10 Vomiting, unspecified; K21.9 Gastro-esophageal reflux disease without esophagitis; K29.60 Other gastritis without bleeding; K21.00 Gastro-esophageal reflux disease with esophagitis, without bleeding; R13.10 Dysphagia, unspecified
CPT/HCPCS: 99213

== ENCOUNTER → 2024-10-22 10:00 | Outpatient (BNVA) | payer OTHER, SELFPAY | PROVIDERS: PCP Family Medicine; Visit Provider Nurse Practitioner | DX: K21.9 Gastro-esophageal reflux disease without esophagitis (principal); R11.10 Vomiting, unspecified; K22.10 Ulcer of esophagus without bleeding; R13.10 Dysphagia, unspecified; Z83.719 Family history of colon polyps, unspecified; K59.09 Other constipation; R10.10 Upper abdominal pain, unspecified | CPT/HCPCS: 99212 ==

== ENCOUNTER 2024-11-26 13:19 | Outpatient (REF) | payer OTHER, SELFPAY ==
--- OUTSIDE RECORDS SUMMARY | 2024-09-07 04:15 | XMS_ITS | Continuity of Care Document ---
Author Organization [facility] Address [address] [place] [address] [address] [place] [address] Phone Care Team Providers Care Patternmaker Wood Name Role Phone Josue MARISCAL, KATHY, Manish [...] Mi- [place] & [place] [facility], [address] [place] [address] Dr [address], [id number], [place] tel:[phone] CVR - [place] - [place] Chronic venous hypertension (idiopathic) without complications of bilateral lower extremityRestle ss legs syndromePruritu s, unspecifiedPain in left legCramp and spasmLocalized edema 5 Josue MARISCAL, KATHY, ANDRE Hammond. [address] [facility], [address], [place], [place], [id number] , [place]. tel:[phone] Referring Provider: Emilie Way, [address] [facility], [place], [address]. tel:[phone] [facility], [address], [id number], [place] tel:[phone] CVR - [place] - [place] Varicose veins of bilateral lower extremities with pain oJsue MARISCAL, RVT, RPVI Manish. [address] [facility], [address], [facility] [place], [id number] , [place]. tel:[phone] Referring Provider: Emilie [place], [address] [place] [address], [place], [address]. tel:[phone] Family History Family Member Type Diagnosis Age At Onset No Information Payers Payer name Insurance type Covered libertarian ID Ramiro gomez(s) [facility] SCO CI [id number] Social History Type Description Quantity Date Captured [...] lower extremity Assessments Type Assessment Date assessment Restless legs syndrome assessment Chronic venous hyper tension (idiopathic) without complications of bilateral lower extremity assessment Pruritus, unspecified assessment Pain in left leg assessment Cramp and spasm assessment Localized edema Patient Care Teams Name Effective Dates (start - stop) Status Members No Information
--- OUTSIDE RECORDS SUMMARY | 2024-11-26 13:49 | XMS_ITS | Encounter Summary ---
Author Organization [facility] Address [address] [facility] 7t [place] [address] Care Team Providers Care Sagger Soak Name Role Phone Emilie Davis MD Primary Care Provider [phone]- [phone] Morales Echavarria FOREIGN LANGUAGE TEACHER Unavailable Unavailable August Unavailable Fred Castanon Unavailable Reason for Visit * Reason Onset Date Comments Referral 07/18/2022 Encounter Details Date Type Department Care Team (Late st Contact Info) Description 07/18/2022 Telephone [facility] MEDICINE [address] [place] [address] Emilie Davis MD [address] [place] [address] Referral Social History Tobacco Use Types Packs/Day [...] to our vision center. Please contact pt [phone] documented in this encounter Plan of Treatment Upcoming Encounters Date Type Department Care Team (Late st Contact Info) Description 01/22/2025 9:00 AM EDT Clinical Support [facility] MEDICINE [address] [place] [address] Medina Lewis, RN [address] [place] [address] documented as of this encounter Visit Diagnoses Not on filedocumented in this encounter Care Teams Sagger Soak Relationship Specialty Start Date End Date Emilie Davis MD [address] [place] [address] PCP - General Family Medicine 05/13/18 Morales Echavarria FNP [address] [place] [address] Nurse Practitioner Family Medicine 04/16/23 Aida Orozco [address] [place] [address] 3rd [place] [address] Gastroenterology 05/26/24 Fred Castanon [address] [place] [phone] 07/21/24 documented as of this encounter
[2024-11-27 03:54] LABS: Syphilis Screen Reactive (Nonreactive)
[2024-11-27 04:19] LABS: ~HepC Num1 1.73 S/CO (0.00-0.79); ~Hepatitis C Antibody Reactive (Nonreactive)
[2024-11-29 10:23] LABS: HIV RNA PCR Qn Copies NOT DETECTED copies/mL (NOT DETECTED); HIV RNA PCR Qn Log Copies NOT DETECTED (NOT DETECTED)
[2024-11-30 12:59] LABS: HCV Log PCR <1.18 NOT DETECTED Log IU/mL (NOT DETECTED); HepC Viral Load <15 NOT DETECTED IU/mL (NOT DETECTED)
[2024-12-02 10:18] LABS: T.Pallidum Particle Agg Test Reactive (Nonreactive)
== END 2024-11-26 13:20 | disposition home or self-care (01) ==
LOC: HO.HHCL 13:19
PROVIDERS: Nurse Practitioner Family; PCP Family Medicine; Visit Provider Family Medicine
DX: Z11.4 Encounter for screening for human immunodeficiency virus [HIV] (principal); E53.8 Deficiency of other specified B group vitamins; Z11.3 Encounter for screening for infections with a predominantly sexual mode of transmission; Z11.59 Encounter for screening for other viral diseases; Z79.899 Other long term (current) drug therapy
CPT/HCPCS: 36415; 83921; 86592; 86780; 86803; 87522; 87536

== ENCOUNTER 2024-12-03 15:47 | Outpatient (AMB) | payer OTHER, SELFPAY ==
--- OUTSIDE RECORDS SUMMARY | 2024-09-07 04:15 | XMS_ITS | Continuity of Care Document ---
Author Organization [facility] Address [address] [place] [address] [address] [place] [address] Phone Care Team Providers Care Sales Architect Name Role Phone Josue MARISCAL, KATHY, Manish POWELL Unavailable U navailable Procedures Procedure Date Offic Cons New/estab Mod 40 Mi- [place] & [place] [facility] CVR Reveal Thigh High Duplex Scan-extrem Veins; Comp- [place] & [place] Advance Directives Directive Yes / No Effective Date File Name No Information Encounters Encounter Description Practice Location Reason(s) For Visit Diagnoses Date Provider Providers Copied on Encounter Offic Cons New/estab Mod 40 Mi- [place] & [place] [facility], [address] [place] [address] Dr [address], [id number], [place] tel:[phone] CVR - [place] - [place] Chronic venous hypertension (idiopathic) without complications of bilateral lower extremityRestle ss legs syndromePruritu s, unspecifiedPain in left legCramp and spasmLocalized edema 5 Josue MARISCAL, KATHY, ANDRE Hammond. [address] [facility], [address], [place], [place], [id number] , [place]. tel:[phone] Referring Provider: Emilie Way, [address] [facility], [place], [address]. tel:[phone] [facility], [address], [id number], [place] tel:[phone] CVR - [place] Varicose veins of bilateral lower extremities with pain Josue MARISCAL, RVT, RPVI Manish. [address] [facility], [address], [facility] [place], [id number] , [place]. tel:[phone] Referring Provider: Emilie [place], [address] [place] [address], [place], [address]. tel:[phone] Family History Family Member Type Diagnosis Age At Onset No Information Payers Payer name Insurance type Covered alliance party ID Ramiro gomez(s) [facility] S[employer] CI [id number] Social History Type Description Quantity Date Captured Comments Alcohol Use Details Unknown Caffeine Use Details Unknown Tobacco Use Status Current non-smoker Smoking Status Never Smoker Non-Smoking Tobacco Use Details : No Details Available : No Details Available Sex Female Gender Identity Male Vital Signs Date / Time: Height Weight BMI Pulse Rate Blood Pressure Temperature Respiratory Rate Body Surface Area Head Circumference Head Circ. Percentile Wt./Lon. Percentile BMI percentile Pulse Ox Inhaled Ox 52.160 kg (115.00 lbs) 19.7 8 kg/m eter (2) 110/72 mm[Hg] Chief Complaint And Reason For Visit No Information Reason For Referral Reason For Referral No Information Plan Of Treatment Date Type Action Status Goal Diet education completed Referral Ordered: Weight management: Referral to physician timeframe: 3 Months ordered Appointment Harriet Woodward BOOKED Appointment Harriet Woodward BOOKED Appointment Harriet Woodward BOOKED Appointment Harriet Woodward BOOKED Appointment Harriet Woodward BOOKED Appointment Harriet Woodward BOOKED Appointment Harriet Woodward BOOKED History Of Present Illness Encounter Date Complaint History Of Prese nt Illness No Information Functional Status Date Functional Assessmen t No Information Instructions Date Instruction Additional Infor mation Diet education Giving Encouragement to exercise Lifestyle education Patient education booklet given Related to Chronic venous hypertension (idiopathic) without complications of bilateral lower extremity Pre and post instruc tions reviewed and provided Related to Chronic venous hypertension (idiopathic) without complications of bilateral lower extremity Assessments Type Assessment Date assessment Localized edema assessment Cramp and spasm assessment Pain in left leg assessment Pruritus, unspecified assessment Chronic venous hyper tension (idiopathic) without complications of bilateral lower extremity assessment Restless legs syndrome Patient Care Teams Name Effective Dates (start - stop) Status Members No Information
--- NOTE | 2024-12-03 15:49 | MHC.OFFVIS ---
Vital Signs 12/03/24 15:56 Height 5 ft 4 in BP 115/73 Blood Pressure Location Lt brachial Position Sitting Pulse 67 Intake Visit Reasons: 5 wks f/u Eval Linzess, CIC Intake Note: Patient in office today in follow up of CIC. Scoring Machine Operator Required: Yes Scoring Machine Operator Language: Mill Operator Name: Nicola Allergies black pepper Allergy (Severe, Verified 12/03/24 15:59) Anaphylaxis Penicillins (PENICILLINS) Allergy (Intermediate, Verified 12/03/24 15:59) HIVES,SWELLING sumatriptan (SUMATRIPTAN) Adverse Reaction (Severe, Verified 12/03/24 15:59) PT STATES HEART ATTACK HPI HPI 5 wks f/u Eval Linzess, CIC: Details: Assessment & Plan (1) Chronic constipation: Code(s): K59.09 - Other constipation Category: Medical (2) Upper abdominal pain: Code(s): R10.10 - Upper abdominal pain, unspecified Category: Medical (3) Erosive esophagitis: Code(s): K22.10 - Ulcer of esophagus without bleeding Category: Medical (4) Vomiting: Code(s): R11.10 - Vomiting, unspecified Category: Medical (5) GERD (gastroesophageal reflux disease): Code(s): K21.9 - Gastro-esophageal reflux disease without esophagitis Category: Medical (6) Bile reflux gastritis: Code(s): K29.60 - Other gastritis without bleeding Category: Medical (7) Bile reflux esophagitis: Code(s): K21.00 - Gastro-esophageal reflux disease with esophagitis, without bleeding Category: Medical (8) Dysphagia: Comment: History of EGD with dilation x2 [place](Desilets-2017) dilation as well as balloon dilation(Mukesh-2018) Chew well, eat slowly, EGD possible dilation Code(s): R13.10 - Dysphagia, unspecified Category: Medical Plan Upper Sorbian #Michelle Live He has the LInzess but at 145mcg it is not moving the bowels every day, he was using miralax and (? senna) as well in the interim. I will increase the dose. He is also utilizing the sucralfate about every other day. With this the symptoms of nausea vomiting and severe chest burning are getting much better. In fact he feels greatly relieved. This is very encouraging. I remind him now that the bowels are moving do the H pylori stool. Also the barium swallows coming up in January. The EGD/colonoscopy has not yet been scheduled which is normal for how we are running. Return office visit in 5 weeks to titrate the Linzess. Medications: New linaclotide (Linzess) 290 mcg PO QAM 30 caps 6RF 30 days Discontinued linaclotide (Linzess) Take first thing in the morning with a full glass of water. Discontinued Reason: Doctor's Order 145 mcg PO QAM 30 caps 6RF K58.1 - Irritable bowel syndrome with constipation Labs: THE H PYLORI STOOL HAS NOT BEEN OBTAINED Ge[facility] 10/2024 IMPRESSION: Normal 4-hour solid food gastric emptying study. BARIUM SWALLOW 01/14/2025 EGD/COLONOSCOPY BIOPSY TODAY'S VISIT AMHARIC #[id number] lIVE He is doing better but the LInzess did not help, instead he is doing metamucil and drinking more water and moving the bowels better. I remind him to get the stool sample. His upper abd pain had improved with better bowel movements and the bentyl. After 01/14 barium swallow [facility] Medical History (Updated 12/03/24 @ 16:28 by MIHIR Perez) Upper abdominal pain Vomiting LEE (dyspnea on exertion) Arthritis Sleep difficulties Occipital neuralgia of left side New onset headache Diverticulosis of colon Chronic, continuous use of opioids Chronic GERD Abdominal pain Palpitations Hypotension History of palpitations Dysphagia Disc degeneration, lumbar Spondylosis of lumbar spine Depression Past heart attack Hyperlipemia Erosive osteoarthritis of hands, bilateral GERD (gastroesophageal reflux disease) Hypertension Surgical History History of cholecystectomy Hx of colonoscopy History of esophagogastroduodenoscopy (EGD) H/O bilateral mastectomy H/O: hysterectomy Family History Mother Hypertension Breast cancer Maternal Grandmother Myocardial infarct Skin cancer Sister Heart problem Breast cancer Family/Other Esophageal cancer Social History Alcohol intake: never Patient Tobacco Use Status: Former Tobacco user Substance Use Type: Marijuana Review of Systems Const Denies fatigue, Denies fever(s), Denies night sweats, Denies poor appetite and Denies weight loss Eyes Details: glasses Reports requires corrective lenses ENT Reports Normal hearing present, Denies dental pain, Denies dysphagia, Denies hearing loss, Denies mouth pain, Denies odynophagia, Denies throat swelling, Denies tongue swelling and Reports other (Dentition adequate) Card Reports no additional complaints Resp Reports no additional complaints GI Details: Denies abdominal pain, Denies melena, Denies bloating, Denies hematochezia, Reports constipation, Denies GI cramping, Denies dysphagia, Denies excessive flatus, Denies early satiety, Reports heartburn, Denies diarrhea, Denies nausea, Denies odynophagia, Denies vomiting and Denies hematemesis Skin/Breast Denies pruritus, Denies lesions, Denies rash and Denies jaundice Neuro Reports Normal hearing present and Denies Abnormal speech present Endo Denies fatigue Aller/Immun Denies throat swelling and Denies tongue swelling Physical Exam Vital Signs: Last Vital Signs Pulse 67 12/03/24 15:56 BP 115/73 12/03/24 15:56 Const General: cooperative, no acute distress, well developed and well groomed Nutritional Appearance: average body habitus and well nourished Orientation/consciousness: oriented to person, oriented to place and oriented to time Limitations: language barrier HEENT Head: Yes normocephalic and Yes atraumatic Eyes General: appearance normal, both eyes and all related structures Pupils: Equal, round and reactive pupils present Neck Neck: Yes normal visual inspection and Yes no lymphadenopathy Thyroid: Thyroid normal Resp Effort & Inspection: normal respiratory effort and able to speak in complete sentences Auscultation: clear to auscultation bilaterally Cardio Rate: regular rate Rhythm: regular rhythm Heart sounds: Normal, physiologic split S2 sound present Peripheral pulses: radial pulses present and posterior tibial pulses present GI Inspection: No distended and No Abdominal panniculus present Palpation (GI): Soft to palpation, nontender, no guarding, not rigid and No hepatosplenomegaly present Percussion: Yes normal to percussion Auscultation: normal bowel sounds Rectal Exam - Female: deferred Skin General skin exam: no rashes or lesions noted, turgor normal, skin not dry, no jaundice, No spider nevi and no striae Rashes: no rashes Nails: normal Neuro General: oriented to person, oriented to place and oriented to time Cranial nerves: Yes Equal, round and reactive pupils present and Yes Normal hearing present Speech: No Abnormal speech present Extrem General: Yes normal to inspection, No clubbing, No cyanosis and No edema Psych Appearance: grossly normal and well kempt Mental Status: mental status grossly normal Speech and movement: Normal speech and movement present Affect: normal affect Attitude: cooperative Thought process: Normal thought process present and not confabulating Thought content: Normal thought content present Insight: Good insight present (Psych) Judgement: Good judgement present (Psych) Assessment & Plan Assessment & Plan (1) GERD (gastroesophageal reflux disease): Code(s): K21.9 - Gastro-esophageal reflux disease without esophagitis Category: Medical (2) Upper abdominal pain: Code(s): R10.10 - Upper abdominal pain, unspecified Category: Medical (3) Bile reflux gastritis: Code(s): K29.60 - Other gastritis without bleeding Category: Medical (4) Bile reflux esophagitis: Code(s): K21.00 - Gastro-esophageal reflux disease with esophagitis, without bleeding Category: Medical (5) Erosive esophagitis: Code(s): K22.10 - Ulcer of esophagus without bleeding Category: Medical (6) Chronic constipation: Code(s): K59.09 - Other constipation Category: Medical Plan AMHARIC #[id number] lIVE He is doing better but the LInzess did not help, instead he is doing metamucil and drinking more water and moving the bowels better. I remind him to get the stool sample. His upper abd pain had improved with better bowel movements and the bentyl. He continues on sucralfate for the erosive/bile esophagitis/gastritis. He also has dicyclomine for cramping. After 01/14 barium swallow Medications: Discontinued linaclotide (Linzess) Discontinued Reason: Patient no longer taking 290 mcg PO QAM 30 days 30 caps 6RF Coding Level of Care Code Est Pt Level 3 (97141) Diagnoses GERD (gastroesophageal reflux disease) K21.9 Upper abdominal pain R10.10 Bile reflux gastritis K29.60 Bile reflux esophagitis K21.00 Erosive esophagitis K22.10 Chronic constipation K59.09
--- OUTSIDE RECORDS SUMMARY | 2024-12-03 15:49 | XMS_ITS | Encounter Summary ---
Author Organization [facility] Address [address] [place] [address] Phone Care Team Providers Care Air Traffic Systems Technician Name Role Phone Emilie Davis MD Primary Care Provi baldomero Encounter Details Date Type Department Care Team (Late st Contact Info) Description 10/28/2018 Procedure Pass OR Admitting Dept - Virtual Department [address] [place] [phone] Social History Tobacco Use Types Packs/Day Years Used Date Smoking Tobacco: Former Cigarettes 2017 Smokeless Tobacco: Current Alcohol Use Standard Drinks/Week Comments Not Currently 0 (1 standard drink = 0.6 oz pur e alcohol) Comments No Sex and Gender Information Value Date Recorded Sex Assigned at Female 08/14/2018 9:54 AM EDT Legal Sex Female 9:17 AM EST Gender Identity Transgender Male 08/14/2018 9:55 AM EDT Sexual Orientation Not on file documented as of this encounter Plan of Treatment Not on file documented as of this encounter Visit Diagnoses Not on filedocumented in this encounter Care Teams Air Traffic Systems Technician Relationship Specialty Start Date End Date Emilie Davis MD [address] [place] [address] PCP - General Family Medicine 06/03/18 documented as of this encounter Additional Source Comments The information contained in this document represents components of the legal health record. It is not the complete legal health record.[facility]
[2024-12-03 15:56] VITALS: BP 115/73; PULSE 67
== END 2024-12-03 16:02 | disposition home or self-care (01) ==
LOC: HO.HGI 15:47
PROVIDERS: PCP Family Medicine; Visit Provider Nurse Practitioner
DX: K21.9 Gastro-esophageal reflux disease without esophagitis (principal); R10.10 Upper abdominal pain, unspecified; K29.60 Other gastritis without bleeding; K21.00 Gastro-esophageal reflux disease with esophagitis, without bleeding; K22.10 Ulcer of esophagus without bleeding; K59.09 Other constipation
CPT/HCPCS: 99213

== ENCOUNTER → 2024-12-03 15:47 | Outpatient (BNVA) | payer OTHER, SELFPAY | PROVIDERS: PCP Family Medicine; Visit Provider Nurse Practitioner | DX: K21.9 Gastro-esophageal reflux disease without esophagitis (principal); R10.10 Upper abdominal pain, unspecified; K29.60 Other gastritis without bleeding; K21.00 Gastro-esophageal reflux disease with esophagitis, without bleeding; K22.10 Ulcer of esophagus without bleeding; K59.09 Other constipation | CPT/HCPCS: 99212 ==

== ENCOUNTER 2024-12-07 09:11 | Outpatient (AMB) | payer OTHER, SELFPAY ==
--- NOTE | 2024-12-07 09:22 | MHC.OFFVIS ---
Vital Signs 12/07/24 09:23 Height 5 ft 4 in Weight 110 lb 3.698 oz BMI 18.9 BP 93/64 Blood Pressure Location Lt brachial Position Sitting Pulse 67 Intake Visit Reasons: 4 mth s/p mibi/ echo/ labs Intake Note: 4 month follow-up after echo and stress feeling good Drive Shaft And Steering Post Repairer Required: Yes Drive Sh[employer] Steering Post Repairer Services: Drive Shaft [employer] Steering Post Repairer Present Drive Shaft [employer] Steering Post Repairer Name: jennifer Louis Sheriff'S Detective: Sheriff'S Detective Present Accompanied by: Friend Allergies black pepper Allergy (Severe, Verified 12/03/24 15:59) Anaphylaxis Penicillins (PENICILLINS) Allergy (Intermediate, Verified 12/03/24 15:59) HIVES,SWELLING sumatriptan (SUMATRIPTAN) Adverse Reaction (Severe, Verified 12/03/24 15:59) PT STATES HEART ATTACK Medication List - Last Reconciled 12/07/24 by Fred Castanon MD atorvastatin 40 mg PO BEDTIME tjakhbjnrb-kqfrlcoiobmry-fggn 50-300-40 mg (Fioricet) 1 cap PO Q4-6H PRN cabotegravir ER (Apretude) 600 mg IM [id number] cholecalciferol (vitamin D3) 1,250 mcg PO QWEEK 12 days dicyclomine 10 mg PO QID loratadine 10 mg PO DAILY magnesium oxide 400 mg PO BEDTIME 30 days mirtazapine 15 mg PO BEDTIME naratriptan take 1/2 - 1 tab at onset of headache; if no relief may repeat 1 tab after at least 4 hrs; max = 2 tabs/24 hrs orally PRN; 30 days Oxygen Home Use Start home O2 at 15-25 L/min via non-rebreather facemask x's 15-20 minutes at onset of cluster headache attack. Patient will require both M tanks and E tanks. sucralfate 20 mL PO QNOON PRN HPI Comments Details: 54-year-old transgender male (on Testosterone) who was previously seen in 2021 presenting with a new patient. Deloris was complaining of palpitations and ECHO and cardiac event monitor was normal at that time. There was concern for hypertension and enalapril was stopped at that time. Today Deloris returns for follow-up. He has been experiencing dyspnea on exertion apparently was a CT scan performed in 05/01/2024 which showed coronary calcifications. There were also calcified granulomas present bilaterally. He is a former smoker and quit 9 months ago. Twenty-three pack year smoking. Dyspnea on exertion with activities like going upstairs. No chest discomfort. On antiretrovirals. 12/07/2024: He is here for follow-up. He underwent stress testing where he was able to exercise for 6 minutes but did not achieve the target heart rate and stopped. He was changed to Lexiscan and is perfusion imaging was normal. Echocardiography also did not show any LV dysfunction, diastolic dysfunction or any valvular disease. He continues to get some shortness of breath with activities. He was a heavy smoker for 20 years and currently smokes marijuana. [facility] Medical History (Updated 12/03/24 @ 16:28 by MIHIR Perez) Upper abdominal pain Vomiting LEE (dyspnea on exertion) Arthritis Sleep difficulties Occipital neuralgia of left side New onset headache Diverticulosis of colon Chronic, continuous use of opioids Chronic GERD Abdominal pain Palpitations Hypotension History of palpitations Dysphagia Disc degeneration, lumbar Spondylosis of lumbar spine Depression Past heart attack Hyperlipemia Erosive osteoarthritis of hands, bilateral GERD (gastroesophageal reflux disease) Hypertension Surgical History History of cholecystectomy Hx of colonoscopy History of esophagogastroduodenoscopy (EGD) H/O bilateral mastectomy H/O: hysterectomy Family History Mother Hypertension Breast cancer Maternal Grandmother Myocardial infarct Skin cancer Sister Heart problem Breast cancer Family/Other Esophageal cancer Social History Alcohol intake: never Patient Tobacco Use Status: Former Tobacco user Substance Use Type: Marijuana Review of Systems Const Denies chills, Denies fatigue, Denies fever(s), Denies frequent falls, Denies weakness, Denies weight gain and Denies weight loss ENT Denies dizziness Card Denies chest pain, Denies leg edema, Denies lightheadedness, Denies palpitations, Denies dyspnea, Denies dyspnea on exertion, Denies orthopnea and Denies other (loss of consciousness) Resp Denies cough, Denies dyspnea and Denies dyspnea on exertion GI Denies hematochezia and Denies change in stool character Musc Denies abnormal gait, Denies muscle weakness, Denies numbness, Denies radiating pain into limb and Denies tingling Neuro Denies abnormal gait, Denies dizziness, Denies frequent falls, Denies numbness, Denies tingling and Denies weakness Endo Denies fatigue and Denies palpitations Physical Exam Vital Signs: Last Vital Signs Pulse 67 12/07/24 09:23 BP 93/64 12/07/24 09:23 BMI result Body Mass Index 18.9 GENERAL APPEARANCE: in no acute distress, pleasant. NECK: no carotid bruit, no jugular venous distention. SKIN: no suspicious lesions, warm and dry. HEART: no murmurs, regular rate and rhythm. LUNGS: clear to auscultation bilaterally. ABDOMEN: soft, nontender. EXTREMITIES: no edema. PERIPHERAL PULSES: equal. NEUROLOGIC: No gross deficits, AAO X 3. Assessment & Plan Assessment & Plan (1) Hypertension: Code(s): I10 - Essential (primary) hypertension Category: Medical (2) Coronary artery calcification: Code(s): I25.10 - Atherosclerotic heart disease of [place] coronary artery without angina pectoris Category: Medical Plan [age] year gentleman who is here for follow-up. He underwent stress testing and echocardiogram. Both are normal currently. He has dyspnea on exertion. He was a heavy smoker and currently smokes marijuana. This also some element of anxiety. He has no anemia on lab work. He will continue to follow up with pulmonology. If dyspnea does not improve or no other cause found then we can consider coronary CTA to rule out any obstructive coronary disease. Currently his workup has not shown any obvious issues in his stress test is normal. Thank you for allowing me to participate in the care of your patient. Please feel free to contact me if you have any questions. Medications: Changed From sucralfate 20 mL PO QNOON 1,000 mL 6RF K22.10 - Ulcer of esophagus without bleeding To sucralfate 20 mL PO QNOON PRN K22.10 - Ulcer of esophagus without bleeding Coding Level of Care Code Est Pt Level 4 (25196) Diagnoses Hypertension I10 Coronary artery calcification I25.10
[2024-12-07 09:23] VITALS: BP 93/64; PULSE 67; BMI 18.9
--- OUTSIDE RECORDS SUMMARY | 2024-12-07 10:10 | XMS_ITS | Encounter Summary ---
Author Organization [facility] Address [address] [place] [address] Phone Care Team Providers Care Occupational Health Manager Name Role Phone Emilie Davis MD Primary Care Provi baldomero Encounter Details Date Type Department Care Team (Late st Contact Info) Description 10/28/2018 Procedure Pass OR Admitting Dept - Virtual Department [address] [place] [address] Social History Tobacco Use Types Packs/Day Years [...] on filedocumented in this encounter Care Teams Occupational Health Manager Relationship Specialty Start Date End Date Emilie Davis MD [address] [place] [address] PCP - General Family Medicine 06/03/18 documented as of this encounter Additional Source Comments The information contained in this document represents components of the legal health record. It is not the complete legal health record.[facility]
--- OUTSIDE RECORDS SUMMARY | 2024-12-07 10:10 | XMS_ITS | Encounter Summary ---
Author Organization [employer] Address [address] [facility] [address] 7[address] [place] [address] Care Team Providers Care Refinery Operator Helper Cracking Unit Name Role Phone Emilie Davis MD Primary Care Provider +1- [phone] Morales Echavarria Unavailable Unavailable August Unavailable Fred Castanon Unavailable Encounter Details Date Type Department Care Team (Late st Contact Info) Description 03/25/2023 Orders Only [facility] MEDICINE [address] [place] [address] Emilie Davis MD [address] [place] [address] Social History Tobacco Use Types Packs/Day Years [...] Description 01/22/2025 9:00 AM EDT Clinical Support [facility] MED[facility]INE [address] [place] [address] Medina Lewis RN [address] [place] [address] documented as of this encounter Visit Diagnoses Not on filedocumented in this encounter Additional Health Concerns Assessment Noted Time PHQ-9 Depression Total Score: 10 023 9:08 AM EDT documented as of this encounter Care Teams Refinery Operator Helper Cracking Unit Relationship Specialty Start Date End Date Emilie Davis MD [address] [place] [address] PCP - General Family Medicine 05/13/18 Morales Echavarrai FNP [address] [place] [address] Nurse Practitioner Family Medicine 04/16/23August [address] [place] [address] [address] [place] [address] Gastroenterology 05/26/24 Fred Castanon [address] [place] [address] 07/21/24 documented as of this encounter
== END 2024-12-07 10:48 | disposition home or self-care (01) ==
LOC: HO.HCS 09:22
PROVIDERS: Visit Provider Internal Medicine Cardiovascular Disease
DX: I10 Essential (primary) hypertension (principal); I25.10 Atherosclerotic heart disease of native coronary artery without angina pectoris
CPT/HCPCS: 99214

== ENCOUNTER → 2024-12-07 09:11 | Outpatient (BNVA) | payer OTHER, SELFPAY | PROVIDERS: Visit Provider Internal Medicine Cardiovascular Disease | DX: I25.10 Atherosclerotic heart disease of native coronary artery without angina pectoris (principal); I10 Essential (primary) hypertension; F12.90 Cannabis use, unspecified, uncomplicated; Z79.899 Other long term (current) drug therapy | CPT/HCPCS: 99212 ==

== ENCOUNTER 2024-12-24 07:13 | Outpatient (AMB) | payer OTHER, SELFPAY ==
--- NOTE | 2024-12-24 07:25 | A.OFFVIS_ITS ---
Vital Signs 12/24/24 07:26 Height 5 ft 4 in Weight 110 lb BMI 18.9 BP 110/70 Blood Pressure Location Rt brachial Position Sitting Pulse 67 Pulse Source Pulse Oximeter Pulse Oximetry (%) 96 Oxygen Delivery Method Room Air Intake Visit Reasons: 3mon follow-up Intake Note: Patient presents follow up headache, MRI's/Labs in chart. No-showed HST 12/02. Patient states migraines differ. 16-20migraines a month. Special Collections Librarian Required: Yes Special Collections Librarian Language: Quill Cleaning Machine Operator Services: Special Collections Librarian Present Special Collections Librarian Name: Lul [id number] Information Interpreted: non-clinical & clinical Accompanied by: Self / Same As Patient Allergies black pepper Allergy (Severe, Verified 12/24/24 07:34) Anaphylaxis Penicillins (PENICILLINS) Allergy (Intermediate, Verified 12/24/24 07:34) HIVES,SWELLING sumatriptan (SUMATRIPTAN) Adverse Reaction (Severe, Verified 12/24/24 07:34) PT STATES HEART ATTACK Medication List - Last Reconciled 12/27/24 by TRINIDAD Rodríguez atorvastatin 40 mg PO BEDTIME wdvzlrssmh-kiqgzixdhfneo-nrtg 50-300-40 mg (Fioricet) 1 cap PO Q4-6H PRN cabotegravir ER (Apretude) 600 mg IM [id number] cholecalciferol (vitamin D3) 1,250 mcg PO QWEEK 12 days dicyclomine 10 mg PO QID loratadine 10 mg PO DAILY magnesium oxide 400 mg PO BEDTIME 30 days mirtazapine 15 mg PO BEDTIME naratriptan take 1/2 - 1 tab at onset of headache; if no relief may repeat 1 tab after at least 4 hrs; max = 2 tabs/24 hrs orally PRN; 30 days Oxygen Home Use Start home O2 at 15-25 L/min via non-rebreather facemask x's 15- 20 minutes at onset of cluster headache attack. Patient will require both M tanks and E tanks. sucralfate 20 mL PO QNOON PRN HPI Comments Details: Right-handed 54-yr-old male (born biologically female) presents for follow-up of headache. 10/13/2024, brain MRI with and without contrast: * No acute intracranial findings. * Mild white-matter small-vessel disease. 10/02/2024, lab results were notable for: ??? Elevated CRP 0.95, CRP high sensitivity 8.4 ??? Low vitamin-D total 25, ??? Normal hemoglobin A1c 5.5%, B12 478, methylmalonic acid level 197, TSH 0.76, total testosterone 7, rheumatoid factor under 13, CRISTEL screen negative Upon review of labs, the patient was started on a vitamin D supplement Patient reports that since the last visit, his headaches have decreased in both frequency and severity. He is now having 2-3 typical headache days per week. He states that naratriptan has been helpful. He did start as needed O2 via a non-rebreather mask; however states he has not had a refill since the initial delivery. He does endorse difficulty sleeping, such as snoring, fatigue, restless sleep, leg cramps, bruxism, and excessive daytime sleepiness. [place] sleepiness scale 10 09/23/2024, initial HPI: Right-handed 54-yr-old male (born biologically female) presents for new pt evaluation of headache disorder per referral from [facility]. Pt reports he started having a new side lock left-sided headache about a year ago, which he has had a few times. However in the last month, CAD a headache attack which was much more severe and provoked him to go to the ER for evaluation. In the ER,, labs were unremarkable, head CT was unremarkable other than showing low position of cerebellar tonsils. Patient was discharged home on prn Fioricet. Patient states that he otherwise typically does not have headaches. In May 2024, he he developed a holocranial headache (different from the left-sided headache), which was attributed to elevated BP and elevated testosteone level. Thus, his testosterone was been held since May, and his BP has normalized and that headache subsided. He does also endorse a remote history of migraine, which started upon menarche- however has not had this for decades, he is status post hysterectomy. PMH and ROS are notable for:? General: Tiredness Neuro: cognitive difficulties, external spinning and not right in space dizziness. R>L rest tremor- lasts for a few seconds, started about a month ago Musculoskeletal disorders or injury: chronic neck and back and joint pain, leg cramps when standing and at night. Rheumatoid arthritis- not on DMT History of concussion/head injury: many yrs ago- without residual effect Mood d/o: Anxiety, Depression. Feeling more irritable/tinoco in the last few months. Respiratory d/o: denies asthma/copd, but recently some SOBOE CV disease: usually low BP, HLD- tx'd w/ diet Clotting or hematology d/o: denies h/o blood clots, is seeing vascular to consi baldomero surgery for LE vein repair Endocrine or metabolic d/o: cold intolerance History of seizure: seizure after . History of syncope: denies : denies GI d/o: Nausea, GERD, Constipation. BACTERIOLOGIST FOOD: hysterectomy 34 yrs ago Family history of migraine or other headache disorder: sister Lifestyle considerations: Sleep routine: Usual bedtime: 11pm and wake-up time: 5pm Sleep difficulties: Endorses: Snoring, Fatigue, Restless sleep, Leg Cramps, Bruxism- not using a mouthguard Caffeine use: 1 cups per day Substance use: Marijuana- once a day. Has a history of smoking tobacco- stopped within the last year. 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 Age/time of onset: 1 year ago Preceding causes: Denies preceding infection, accident, travel. Previous work-up: 09/07/2024, head CT without contrast: Low position of the cerebellar tonsils/cerebellar tonsil ectopia Types of headache disorders: 1 Typical headache characteristics: Prodrome symptoms: Aura: Unsure Pain intensity: severe- patient states so severe he wants to hit his head Location, quality, characteristics: Begins as a cold pain running from the left trochlear region up over the head to the left occipital area and becomes a pressure in the left occipital, f/b a stabbing left eye pain. Associated symptoms: blurry vision, swirling and colorful spots and lines, photophobia, osmophobia, N/V, dizziness, left eyelid droop, sweating, restlessness, wanting to hit his head. Postdrome: residual left occipital cold running pain, bilateral temples Triggers: stress Time of day: in the middle of the night, only one occurred during the day. Duration and Frequency: 30-60 minutes How does headache impact your life? During headache patient can not do any usual activities Current acute medication use/interventions: OTC analgesics ineffective Current preventative medication use: None Current non-pharmacological interventions: None PFSH Medical History Upper abdominal pain Vomiting LEE (dyspnea on exertion) Arthritis Sleep difficulties Occipital neuralgia of left side New onset headache Diverticulosis of colon Chronic, continuous use of opioids Chronic GERD Abdominal pain Palpitations Hypotension History of palpitations Dysphagia Disc degeneration, lumbar Spondylosis of lumbar spine Depression Past heart attack Hyperlipemia Erosive osteoarthritis of hands, bilateral GERD (gastroesophageal reflux disease) Hypertension Surgical History History of cholecystectomy Hx of colonoscopy History of esophagogastroduodenoscopy (EGD) H/O bilateral mastectomy H/O: hysterectomy Family History Mother Hypertension Breast cancer Maternal Grandmother Myocardial infarct Skin cancer Sister Heart problem Breast cancer Family/Other Esophageal cancer Social History Alcohol intake: never Patient Tobacco Use Status: Former Tobacco user Substance Use Type: Marijuana Physical Exam Vital Signs: Last Vital Signs Pulse 67 12/24/24 07:26 BP 110/70 12/24/24 07:26 Pulse Ox 96 12/24/24 07:26 Oxygen Delivery Method Room Air 12/24/24 07:26 BMI result Body Mass Index 18.9 Const General: no acute distress Orientation/consciousness: patient oriented x3 Resp Effort & Inspection: normal respiratory effort and able to speak in complete sentences Cardio Rate: regular rate Rhythm: regular rhythm Neuro General: patient oriented x3 Cranial nerves: Yes CN's II-XII intact bilaterally Cognition (Neuro): normal cognition Gait exam (Neuro): Normal gait present Motor exam (neuro): 5/5 motor strength present throughout Pupils: Normal pupillary reactivity/response: bilateral Psych Appearance: grossly normal Mental Status: mental status grossly normal Speech and movement: Clear speech present Affect: normal affect Attitude: cooperative Thought process: Normal thought process present Assessment & Plan Assessment & Plan (1) Cluster headache: Code(s): G44.009 - Cluster headache syndrome, unspecified, not intractable Category: Medical Qualifiers: Headache chronicity pattern: episodic headache Intractability: not intractable Qualified Code(s): G44.019 - Episodic cluster headache, not intractable (2) Occipital neuralgia of left side: Code(s): M54.81 - Occipital neuralgia Category: Medical (3) Snoring: Code(s): R06.83 - Snoring Category: Medical (4) Sleep difficulties: Code(s): G47.9 - Sleep disorder, unspecified Category: Medical (5) Excessive daytime sleepiness: Comment: ESS 10 Code(s): G47.19 - Other hypersomnia Category: Medical Plan Reviewed 10/13/2024 brain MRI with and without contrast, results showed only nonspecific mild white-matter small-vessel disease, which do not explain patient's left sided side locked headache symptoms. As patient continues to have left-sided side locked headache with autonomic features suggestive of cluster headache phenotype in setting of low cerebellar tonsil seen on recent head CT, it is imperative to assess for secondary mimics/etiologies, thus patient is advised to undergo: * MRA brain without contrast * MRV brain with and without contrast * XR C-spine with flexion and extension as ordered Previous request for MRI C-spine was declined- 6 week trial of PT required. PT eval and treat as ordered Labs to recheck vitamin-D level and inflammatory markers HST to assess for sleep apnea For overall headache management: * Optimize good self-care, including but not limited to maintaining a healthy diet, adequate fluid intake, adequate sleep, and engaging in regular physical activity. * Track headaches, especially after any treatment regimen changes. Migraine [employer] is one of many headache tracking apps. For acute cluster [place] headache treatment: Discussed importance of taking acute medications at the first sign of headache, however stressed importance of avoiding acute medication overuse (especially with combined headache medications). Resume home O2 at 15-25 L/min via non-rebreather facemask x's 15-20 minutes at onset of cluster headache attack. ?Patient will require both M tanks and E tanks. Continue Naratriptan 2.5mg tab, 1/2 - 1 tab (1.25-2.5mg) at onset of headache, may repeat in 4 hours. Max of 2 tabs (5mg) per 24 hours. May adjunct with OTC Tylenol 650mg every 4 hours, Ibuprofen (liquigel) 600mg every 6 hours, or Naproxen (liquigel) 440mg every 12 hrs as needed. Potential adverse effects of triptans, include but are not limited to nausea, fatigue, chest tightness/tingling (usually passes within a few minutes), medication overuse headaches. Previous acute headache medication trials: Sumatriptan- cause chest palpitations. Acute migraine headache contraindications: None at this time For cluster headache prevention medication: Continue magnesium oxide 400 mg daily at bedtime Start Emgality 300mg (3 100 mg/ml syringes) via subcutaneous injection in 3 different sites, monthly until cluster headache cycle breaks, and resume upon return of cluster headache cycle. * Patient requests injection training once Emgality available. * Important considerations: * Emgality will likely require insurance prior authorization prior to receiving it from the pharmacy. * Potential side effects include allergic reaction and injection site reactions. * Emgality injection training educational video is available to view on [employer] * Store Emgality in the refrigerator in it's original packaging in order to protect from light. * Remove Emgality at least 1 hour prior to taking the injection. * Emgality can be left out of the fridge for?up to 7 days at a temperature not above 86?F. If either of these conditions are exceeded, then Emgality must be thrown away. * Once Emgality has been stored out of refrigeration, do not place it back in the refrigerator. Previous prevention medication trials: None Headache prevention medication contraindications: He is not a candidate to try, verapamil or other calcium channel blockers due to risk for hypotension. Will follow-up upon review of above and patient to follow-up in clinic in 3 months or sooner prn. Orders: Orders C Reactive Protein Today E55.9 - Vitamin D deficiency, unspecified, R70.0 - Elevated erythrocyte sedimentation rate, R79.82 - Elevated C-reactive protein (CRP) Vitamin D 25-OH (D2 and D3) Today E55.9 - Vitamin D deficiency, unspecified, R70.0 - Elevated erythrocyte sedimentation rate, R79.82 - Elevated C-reactive protein (CRP) RT home sleep study Today G47.19 - Other hypersomnia, G47.9 - Sleep disorder, unspecified, R06.83 - Snoring Erythrocyte Sedimentation Rate Today E55.9 - Vitamin D deficiency, unspecified, R70.0 - Elevated erythrocyte sedimentation rate, R79.82 - Elevated C-reactive protein (CRP) Medications: New galcanezumab-gnlm (Emgality) administer as three 100 mg injections at separate sites 300 mg (3 mL) subcut QMONTH 3 mL 3RF 30 days G44.019 - Episodic cluster headache, not intractable Coding Level of Care Code Est Pt Level 4 (36749) Diagnoses Episodic cluster headache, not intractable G44.019 Headache chronicity pattern: episodic headache Intractability: not intractable Occipital neuralgia of left side M54.81 Snoring R06.83 Sleep difficulties G47.9 Excessive daytime sleepiness G47.19
[2024-12-24 07:26] VITALS: BP 110/70; PULSE 67; O2SAT 96; BMI 18.9
== END 2024-12-24 08:10 | disposition home or self-care (01) ==
PROVIDERS: PCP Family Medicine; Visit Provider Nurse Practitioner Family
DX: G44.019 Episodic cluster headache, not intractable (principal); M54.81 Occipital neuralgia; R06.83 Snoring; G47.9 Sleep disorder, unspecified; G47.19 Other hypersomnia
CPT/HCPCS: 99214

== ENCOUNTER → 2024-12-24 07:13 | Outpatient (BNVA) | payer OTHER, SELFPAY | PROVIDERS: PCP Family Medicine; Visit Provider Nurse Practitioner Family | DX: G44.019 Episodic cluster headache, not intractable (principal); M54.81 Occipital neuralgia; R06.83 Snoring; G47.9 Sleep disorder, unspecified; G47.19 Other hypersomnia; R40.0 Somnolence | CPT/HCPCS: 99212 ==

== ENCOUNTER 2024-12-29 09:42 | Inpatient (IN) | payer OTHER, SELFPAY ==
--- NOTE | ~2024-12-29 | CT_ITS ---
EXAMINATION: CT ABDOMEN PELVIS WITH IV CONTRAST HISTORY: abdominal pain COMPARISON: There is an is made with the prior examination dated 04/13/2023. TECHNIQUE: CT scan of the abdomen and pelvis was performed following administration of 85 mL Omnipaque 350 using standard departmental protocol. Coronal and sagittal reformatted images were generated and reviewed. Oral contrast material was not administered at the request of the referring physician. This CT exam was performed with one or more of the following dose reduction techniques: automated exposure control, adjustment of the mA and/or kV according to patient size, use of iterative reconstruction technique. DLP: 296 mGy-cm FINDINGS: LOWER CHEST: The visualized lung bases are clear. There is no pleural effusion. CARDIOVASCULATURE: The heart is normal in size. There is no pericardial effusion. LIVER: The liver is normal in size and contour. Tiny subcentimeter hypodensities are noted at the dome of the liver which are too small to accurately characterize. The hepatic and portal veins are patent. GALLBLADDER / BILE DUCTS: The gallbladder is surgically absent. There is no intra or extrahepatic biliary ductal dilatation. SPLEEN: The spleen is normal in size. No focal splenic lesion is identified. PANCREAS: The pancreas is unremarkable in appearance. ADRENAL GLANDS: Within normal limits. KIDNEYS/RETROPERITONEUM: No renal calculi are identified. There is no hydronephrosis. No renal masses are identified. LYMPH NODES: No abdominal or pelvic lymphadenopathy. VASCULATURE: The abdominal aorta is normal in caliber. MESENTERY/PERITONEUM: No free fluid. No masses. There is no free intraperitoneal gas. STOMACH: The stomach is collapsed, limiting evaluation. SMALL BOWEL: The small bowel is normal in caliber. COLON: There is a large amount of stool throughout the colon. There is diverticulosis of the descending and sigmoid colon, without evidence of diverticulitis. APPENDIX: Normal. URINARY BLADDER/PELVIC ORGANS: The urinary bladder is unremarkable. The patient is status post hysterectomy. BONES / SOFT TISSUES: No suspicious bony or soft tissue abnormalities. CT/CT abdomen pelvis w IV con IMPRESSION: Large amount of stool throughout the colon. Diverticulosis of the descending and sigmoid colon, without evidence of diverticulitis. Electronically signed by: Manish Deras MD 12/29/2024 01:40 PM EDT RP
[2024-12-29 09:46] VITALS: BP 170/92; PULSE 100; RESP 18; TEMP 36.1; O2SAT 98; BMI 18.7
[2024-12-29 10:04] LABS: MANUAL DIFF FLAG NO
[2024-12-29 10:10] LABS: Hematocrit 43.0 % (37.0-47.0); Hemoglobin 14.4 g/dl (12.0-16.0); Imm Gran Abs Auto 0.04 X10*3/uL (0.00-0.03); Imm Gran Pct Auto 0.4 % (0.0-0.4); Lymphocytes Absolute Auto 3.3 X10*3/uL (1.2-4.9); Mean Corpuscular HGB Conc 33.5 g/dl (31.0-35.0); Mean Corpuscular Hemoglobin 29.8 pg (27.0-33.0); Mean Corpuscular Volume 89.0 fL (80.0-98.0); NRBC Abs Auto 0.000 X10*3/uL (0.0-0.012); NRBC Pct Auto 0.0 /100WBC (0.0-0.2); Platelet Count 340 X10*3/uL (160-400); Red Blood Count 4.83 X10*6/uL (4.20-5.50); White Blood Count 10.1 X10*3/uL (4.8-10.8)
[2024-12-29 10:42] LABS: Alanine Aminotransferase 19 U/L (0-31); Albumin Level 4.4 g/dL (3.5-5.0); Alkaline Phosphatase 90 U/L (39-117); Anion Gap 9 (12-20); Aspartate Amino Transferase 26 U/L (5-31); Blood Urea Nitrogen 10 mg/dL (9-16); Calcium 9.3 mg/dL (8.4-10.2); Carbon Dioxide 30 mmol/L (22-29); Chloride 107 mmol/L (96-108); Creatinine Clr Calc Pharmacy 66.2; Estimated Glomerular Filt Rate > 60; Lipase 2196 U/L (8-78); Potassium 4.0 mmol/L (3.3-5.1); Sodium 142 mmol/L (135-145); Total Protein 7.6 g/dL (6.5-8.0)
--- NOTE | 2024-12-29 12:16 | ED.GENADULT ---
HPI - General Adult General Chief complaint: Abdominal Pain Stated complaint: Vomiting Time Seen by Provider: 12/29/24 12:16 Source: patient Mode of arrival: ambulatory Limitations: no limitations History of Present Illness ED Provider: Dr. Cobb HPI narrative: This is a 54-year-old transgender female to male preferred to be called [facility] presented to the ER today for sudden onset of epigastric pain radiating to the left upper quadrant. Patient stated that this started around 05:00 this morning. He is having some nausea and vomiting. Patient state he does have history of cholecystectomy in the past. Denies any diarrhea. He does have history of pancreatitis in the past as well. Denies any fever. Denies any history of alcohol usage, denies smoking history. Related Data Home Medications ?Medication ?Instructions ?Recorded ?Confirmed cabotegravir 600 mg/3 mL (200 600 mg IM [id number] 05/26/24 12/27/24 mg/mL) IM suspension,extended release (Apretude) atorvastatin 40 mg tablet 40 mg PO BEDTIME 09/16/24 12/27/24 loratadine 10 mg tablet 10 mg PO DAILY 09/16/24 12/27/24 mirtazapine 15 mg tablet 15 mg PO BEDTIME 09/16/24 12/27/24 sucralfate 100 mg/mL oral 20 ml PO QNOON PRN 12/07/24 12/27/24 suspension Previous Rx's ?Medication ?Instructions ?Recorded ceoqoordht-opywneurumlgu-iexakyen 1 cap PO Q4-6H PRN headache #10 09/07/24 50 mg-300 mg-40 mg capsule caps (Fioricet) Oxygen Home Use #3 ea 09/24/24 naratriptan 2.5 mg tablet See Rx Instructions PO .COMPLEX 09/24/24 PRN migraine headache 30 days #12 tabs dicyclomine 10 mg capsule 10 mg PO QID #120 caps 09/25/24 magnesium oxide 400 mg (241.3 mg 400 mg PO BEDTIME 30 days #30 tabs 09/25/24 magnesium) tablet cholecalciferol (vitamin D3) 1,250 1,250 mcg PO QWEEK 12 days #12 caps 10/16/24 mcg (50,000 unit) capsule galcanezumab-gnlm 300 mg/3 mL (100 300 mg (3 mL) subcut QMONTH 30 12/27/24 mg/mL x 3) subcutaneous syringe days #3 mL (Emgality) Allergies Allergy/AdvReac Type Severity Reaction Status Date / Time black pepper Allergy Severe Anaphylaxis Verified 12/29/24 09:50 Penicillins (PENICILLINS) Allergy Intermediate RE DUKE Verified 12/29/24 09:50 ING sumatriptan (SUMATRIPTAN) AdvReac Severe PT STATES Verified 12/29/24 09:50 HEART ATTACK Review of Systems Review of Systems: Review of system as mentioned in HPI all other review of system are negative. [facility] Past Medical History [facility] Narrative: As mentioned in HPI Medical History (Updated 12/29/24 @ 14:56 by Cheryl Cobb DO) Sleep difficulties Upper abdominal pain Vomiting LEE (dyspnea on exertion) Arthritis Occipital neuralgia of left side New onset headache Diverticulosis of colon Chronic, continuous use of opioids Chronic GERD Abdominal pain Palpitations Hypotension History of palpitations Dysphagia Disc degeneration, lumbar Spondylosis of lumbar spine Depression Past heart attack Hyperlipemia Erosive osteoarthritis of hands, bilateral GERD (gastroesophageal reflux disease) Hypertension Surgical History History of cholecystectomy Hx of colonoscopy History of esophagogastroduodenoscopy (EGD) H/O bilateral mastectomy H/O: hysterectomy Family History Family History Mother Hypertension Breast cancer Maternal Grandmother Myocardial infarct Skin cancer Sister Heart problem Breast cancer Family/Other Esophageal cancer Social History Social History Alcohol intake: never Patient Tobacco Use Status: Former Tobacco user Smoked in Last 30 Days: No Use of substances other than those prescribed or required for medical reasons: No Substance Use Type: Marijuana Advance Directives: No Advance Directives Information Provided: Yes Do you have a plan to hurt others: No Plan Patient : No Physical Exam ED Exam Exam: General: Appears uncomfortable and nauseous. Head: Normacephalic, atraumatic ENT: oral mucosa moist, neck supple, no tracheal deviation Cardiovascular: regular rate, regular rhythm, no murmurs, rubbing, gallops Respiratory: CTAB, no wheeze, rales, rhonchi Gastrointestinal: Epigastric tenderness on palpation of left upper quadrant tenderness on palpation. Neurological: Awake and alert, no facial droop noted Skin: Warm and dry Psychiatric: Appropriate mood and thoughts Vital Signs: Vital Signs - 24 hr 12/29/24 09:46 12/29/24 13:47 Temperature 97 F 98.3 F Pulse Rate 100 50 Respiratory Rate 18 18 Blood Pressure 170/92 H 114/69 Pulse Oximetry 98 100 Oxygen Delivery Method Room Air Room Air BMI result Body Mass Index 18.7 Medications Administered Discontinued Medications Generic Name Dose Route Start Last Admin Trade Name Gamal PRN Reason Stop Dose Admin Lactated Ringer's 1,000 mls @ 999 mls/hr 12/29/24 12:30 12/29/24 13:27 Lr IV 12/29/24 13:30 Infused .Q1H1M KARLI Infusion Morphine Sulfate 4 mg 12/29/24 12:37 12/29/24 13:09 Morphine Sulfate 4 Mg/Ml Cartridge IVPUSH 12/29/24 12:38 4 mg ONCE ONE Administration Protocol Ondansetron HCl 4 mg 12/29/24 09:52 12/29/24 09:55 Ondansetron Odt 4 Mg Tab.Rapdis TRANSLINGU 12/29/24 09:53 4 mg ONCE ONE Administration Ondansetron HCl 4 mg 12/29/24 12:38 12/29/24 13:09 Ondansetron Hcl 4 Mg/2 Ml Vial IVPUSH 12/29/24 12:39 4 mg ONCE ONE Administration Medical Decision Making Medical Decision Making [facility] Narrative: 54-year-old transgender female to male transition history of cholecystectomy, pancreatitis presented hospital today for epigastric pain and left upper quadrant pain. Patient had abdominal lab work performed. No sign of leukocytosis. He does have elevated lipase at 2196 I suspect patient has pancreatitis. We will plan to give patient some IV morphine IV fluid and IV Zofran for his symptoms. Given patient's presentation we will obtain a CT abdomen and pelvis as well to rule out any other Don pathology. Patient does appear to be uncomfortable at this time. Patient's CT abdomen and pelvis shows large stool burden and colon he also has fine of diverticulosis. No diverticulitis. Patient is still complaining of some pain. The pain has improved with IV morphine. We will plan to give patient some IV Reglan, additional dose IV morphine, additional bolus IV fluid. Patient will be admitted to the hospital for pancreatitis. He will need pain control bowel rest. Patient has finding of large stool burden. We will plan to give patient a dose of MiraLax here. Differential Diagnosis Differential Diagnoses: The differential diagnosis associated with the presentation includes Gastritis, pancreatitis, colitis, perforated gastrum Consult Healthcare Provider Management of the patient was discussed with: Hospitalist Lab Data MDM Lab Attestation statement: I reviewed the patient's lab results. 12/29/24 10:00 12/29/24 10:00 Labs: Lab Results 12/29/24 12/29/24 Range/Units 10:00 13:09 WBC 10.1 (4.8-10.8) X10*3/uL RBC 4.83 (4.20-5.50) X10*6/uL Hgb 14.4 (12.0-16.0) g/dl Hct 43.0 (37.0-47.0) % MCV 89.0 (80.0-98.0) fL MCH 29.8 (27.0-33.0) pg MCHC 33.5 (31.0-35.0) g/dl RDW 14.2 (11.0-16.0) % Plt Count 340 (160-400) X10*3/uL MPV 9.0 L (9.4-12.3) fL Immature Gran % (Auto) 0.4 (0.0-0.4) % Neut % (Auto) 60.1 (45-73) % Lymph % (Auto) 32.8 (20-40) % [place] % (Auto) 4.9 (2-11) % Eos % (Auto) 1.2 (0-4) % Baso % (Auto) 0.6 (0-2) % Lymph # (Auto) 3.3 (1.2-4.9) X10*3/uL [place] # (Auto) 0.5 (0.1-1.2) X10*3/uL Eos # (Auto) 0.1 (0.0-0.4) X10*3/uL Baso # (Auto) 0.1 (0.0-0.2) X10*3/uL Abs Immat Gran (auto) 0.04 H (0.00-0.03) X10*3/uL Absolute Neuts (auto) 6.1 (2.0-8.3) x10*3/uL Absolute Nucleated RBC 0.000 (0.0-0.012) X10*3/uL Nucleated RBC % (auto) 0.0 (0.0-0.2) /100WBC Sodium 142 (135-145) mmol/L Potassium 4.0 (3.3-5.1) mmol/L Chloride 107 (96-108) mmol/L Carbon Dioxide 30 H (22-29) mmol/L Anion Gap 9 L (12-20) BUN 10 (9-16) mg/dL Creatinine 0.75 (0.5-1.4) mg/dL Estim Creat Clear Calc 66.2 Estimated GFR > 60 Random Glucose 117 H (60-115) mg/dL Calcium 9.3 (8.4-10.2) mg/dL Total Bilirubin 0.4 (0.0-1.0) mg/dL Direct Bilirubin 0.1 (0.0-0.5) mg/dL AST 26 (5-31) U/L ALT 19 (0-31) U/L Alkaline Phosphatase 90 (39-117) U/L Total Protein 7.6 (6.5-8.0) g/dL Albumin 4.4 (3.5-5.0) g/dL Lipase 2196 H (8-78) U/L Urine Color Yellow Urine Appearance Clear Urine pH 8.0 (5.0-9.0) Ur Specific [place] 1.015 (1.005-1.025) Urine Protein Negative (Neg-Trace) mg/dL Urine Glucose (UA) Negative (Negative) mg/dL Urine Ketones Negative (Negative) mg/dL Urine Blood Negative (Negative) Urine Nitrite Negative (Negative) Ur Leukocyte Esterase Negative (Negative) Urine Opiates Screen Not Detected (Not Detect) Ur Buprenorphine Scrn Not Detected (Not Detect) ng/mL Ur Oxycodone Screen Not Detected (Not Detect) ng/mL Urine Methadone Screen Not Detected (Not Detect) ng/mL Urine Fentanyl Screen Not Detected (Not Detect) Ur Barbiturates Screen Not Detected (Not Detect) Ur Phencyclidine Scrn Not Detected (Not Detect) Ur Amphetamines Screen Not Detected (Not Detect) U Benzodiazepines Scrn Not Detected (Not Detect) Urine Cocaine Screen Not Detected (Not Detect) U Marijuana (THC) Screen POSITIVE H (Not Detect) Independent Interpretation I performed an independent interpretation of an: CT Scan Radiology Impression Discussion of test interpretation with radiology: I have reviewed the radiologist's reading. Discharge Plan Discharge Clinical Impression: Pancreatitis Patient Disposition: Admitted As Inpatient Print Language: Slovenian
[2024-12-29] MEDS: Lactated Ringers 1,000 ML 999 ML IV (12:26)
[2024-12-29 13:20] LABS: Appearance Urine Clear; Glucose Urine UA Negative (Negative); PH 8.0 (5.0-9.0); Specific Gravity - Urine 1.015 (1.005-1.025)
[2024-12-29 13:34] LABS: Cannabinoid Screen Urine POSITIVE (Not Detect)
[2024-12-29 13:47] VITALS: BP 114/69; PULSE 50; RESP 18; TEMP 36.8; O2SAT 100
--- OUTSIDE RECORDS SUMMARY | 2024-12-29 13:56 | XMS_ITS | Encounter Summary ---
Author Organization [employer] [facility] Address [address] [place] [address] Care Team Providers Care Electrical And Instrumentation Manager Name Role Phone Emilie Davis MD Primary Care Provider [phone] Morales Echavarria CLIENT EXECUTIVE Unavailable Unavailable August Unavailable Fred Castanon Unavailable Reason for Visit * Reason Onset Date Comments Referral 07/18/2022 Encounter Details Date Type Department Care Team (Late st Contact Info) Description 07/18/2022 Telephone [facility] [address] [place] [address] Emilie Davis MD [address] [place] [address] Referral Social History Tobacco Use Types Packs/Day [...] to our [facility]. Please contact pt [phone] documented in this encounter Plan of Treatment Upcoming Encounters Date Type Department Care Team (Late st Contact Info) Description 01/22/2025 9:00 AM EDT Clinical Support [facility] [address] [place] [address] Medina Lewis, RN [address] [place] [address] documented as of this encounter Visit Diagnoses Not on filedocumented in this encounter Care Teams Electrical And Instrumentation Manager Relationship Specialty Start Date End Date Emilie Davis MD [address] [place] [phone] PCP - General Family Medicine 05/13/18 Morales Echavarria FNP [address] [place] [phone] Nurse Practitioner Family Medicine 04/16/23 Aida Orozco [address] [place] [address] [address] [place] [address] Gastroenterology 05/26/24 Fred Castanon [address] [place] [phone] 07/21/24 documented as of this encounter
--- NOTE | 2024-12-29 15:23 | PM.IMHP ---
History of Present Illness Date of Service: 12/29/24 Chief Complaint: epigastric pain, n/v 54 transmale H migraines, esophogeal and pyloric stenosis, chronic gastritis, GERD, presented with epigastric pain, nasuea and vomiting, patient reports feeling well 2 days prior to presentation. On day prior to presentation started to feel dull epigastric pain but was still tolerating solids. On day of presentation patient to woke up at about 03:00 with severe epigastric sharp twisting pain radiating to left upper quadrant associated with nausea and vomiting nonbloody material. Denies fever, shortness of breath, diarrhea. No change in meds recently. In ED CT abdomen unremarkable. Labs with mild metabolic alkalosis and lipase of 2196, otherwise LFTs normal. Review of Systems Review of Systems: Yes all other systems are reviewed and are negative [facility] Medical History Sleep difficulties Upper abdominal pain Vomiting LEE (dyspnea on exertion) Arthritis Occipital neuralgia of left side New onset headache Diverticulosis of colon Chronic, continuous use of opioids Chronic GERD Abdominal pain Palpitations Hypotension History of palpitations Dysphagia Disc degeneration, lumbar Spondylosis of lumbar spine Depression Past heart attack Hyperlipemia Erosive osteoarthritis of hands, bilateral GERD (gastroesophageal reflux disease) Hypertension Family History Mother Hypertension Breast cancer Maternal Grandmother Myocardial infarct Skin cancer Sister Heart problem Breast cancer Family/Other Esophageal cancer Surgical History History of cholecystectomy Hx of colonoscopy History of esophagogastroduodenoscopy (EGD) H/O bilateral mastectomy H/O: hysterectomy Social History Alcohol intake: never Patient Tobacco Use Status: Former Tobacco user Smoked in Last 30 Days: No Use of substances other than those prescribed or required for medical reasons: No Substance Use Type: Marijuana Advance Directives: No Advance Directives Information Provided: Yes Do you have a plan to hurt others: No Plan Patient : No Meds Allergies Allergy/AdvReac Type Severity Reaction Status Date / Time black pepper Allergy Severe Anaphylaxis Verified 12/29/24 09:50 Penicillins (PENICILLINS) Allergy Intermediate HIVSHAE,SWELL Verified 12/29/24 09:50 ING sumatriptan (SUMATRIPTAN) AdvReac Severe PT STATES Verified 12/29/24 09:50 HEART ATTACK Active Medications: Current Medications Acetaminophen (Acetaminophen 325 Mg Tablet) 650 mg PO Q6H PRN PRN Reason: Pain, Mild 1-3,fever,headache Calcium Carbonate (Calcium Carbonate 750 Mg Tab.Chew) 750 mg PO Q4H PRN PRN Reason: Heartburn Enoxaparin Sodium (Enoxaparin Sodium 40 Mg/0.4 Ml Syringe) 40 mg SUBCUT Q24H [facility] Hydromorphone HCl (Hydromorphone Hcl 0.5 Mg/0.5 Ml Syringe) 0.5 mg IVPUSH Q4H PRN; Protocol PRN Reason: Pain, Severe (Pain Scale 7-10) Sodium Chloride (Ns) 1,000 mls @ 999 mls/hr IV .Q1H1M KARLI Stop: 12/29/24 16:00 Last Admin: 12/29/24 15:01 Dose: 999 mls/hr Lactated Ringer's (Lr) 1,000 mls @ 100 mls/hr IVCONT .Q10H [facility] Magnesium Hydroxide (Milk Of Magnesia 30 Ml Oral.Susp) 30 ml PO DAILY PRN PRN Reason: Constipation Melatonin (Melatonin 3 Mg Tablet) 6 mg PO BEDTIME PRN PRN Reason: Insomnia Metoclopramide HCl (Metoclopramide Hcl 10 Mg/2 Ml Vial) 5 mg IVPUSH Q6H PRN PRN Reason: Nausea and Vomiting Pantoprazole Sodium (Pantoprazole Sodium 40 Mg/10 Ml Vial) 40 mg IVPUSH BID@0630,1630 [facility] Sodium Chloride (0.9 % Sodium Chloride Flush 3 Ml Syringe) 3 ml IVFLUSH QSHIFT [facility] Sucralfate (Sucralfate Oral Suspension 1 Gm/10 Ml Oral.Susp) 1 gm PO QIDACHS [facility] Home Medications ?Medication ?Instructions ?Recorded ?Confirmed ?Last Taken ?Type cabotegravir 600 mg/3 mL (200 600 mg IM [id number] 05/26/24 12/27/24 Unknown History mg/mL) IM suspension,extended release (Apretude) atorvastatin 40 mg tablet 40 mg PO BEDTIME 09/16/24 12/27/24 Unknown History loratadine 10 mg tablet 10 mg PO DAILY 09/16/24 12/27/24 Unknown History mirtazapine 15 mg tablet 15 mg PO BEDTIME 09/16/24 12/27/24 Unknown History sucralfate 100 mg/mL oral 20 ml PO QNOON PRN 12/07/24 12/27/24 Unknown History suspension Physical Exam Vital Signs and Narrative: Vital Signs: Last Vital Signs Temp 98.3 F 12/29/24 13:47 Pulse 50 12/29/24 13:47 Resp 18 12/29/24 13:47 BP 114/69 12/29/24 13:47 Pulse Ox 100 12/29/24 13:47 O2 Del Method Room Air 12/29/24 13:47 BMI result Body Mass Index 18.7 General: AO X 3, no acute distress Resp: CTA bilateral, no accessory muscles used CVS: S1,S2,RRR GI: soft, non tender, non distended Neuro: motor grossly intact, alert Psych: appropriate affect, appropriate insight Results Labs 12/29/24 10:00 12/29/24 10:00 Labs: Laboratory Results - last 24 hr 12/29/24 12/29/24 10:00 13:09 MCV 89.0 MCH 29.8 MCHC 33.5 RDW 14.2 Plt Count 340 MPV 9.0 L Immature Gran % (Auto) 0.4 Neut % (Auto) 60.1 Lymph % (Auto) 32.8 [place] % (Auto) 4.9 Eos % (Auto) 1.2 Baso % (Auto) 0.6 Lymph # (Auto) 3.3 [place] # (Auto) 0.5 Eos # (Auto) 0.1 Baso # (Auto) 0.1 Abs Immat Gran (auto) 0.04 H Absolute Neuts (auto) 6.1 Absolute Nucleated RBC 0.000 Nucleated RBC % (auto) 0.0 Anion Gap 9 L Estim Creat Clear Calc 66.2 Estimated GFR > 60 Random Glucose 117 H Calcium 9.3 Total Bilirubin 0.4 Direct Bilirubin 0.1 AST 26 ALT 19 Alkaline Phosphatase 90 Total Protein 7.6 Albumin 4.4 Lipase 2196 H Urine Color Yellow Urine Appearance Clear Urine pH 8.0 Ur Specific [place] 1.015 Urine Protein Negative Urine Glucose (UA) Negative Urine Ketones Negative Urine Blood Negative Urine Nitrite Negative Ur Leukocyte Esterase Negative Urine Opiates Screen Not Detected Ur Buprenorphine Scrn Not Detected Ur Oxycodone Screen Not Detected Urine Methadone Screen Not Detected Urine Fentanyl Screen Not Detected Ur Barbiturates Screen Not Detected Ur Phencyclidine Scrn Not Detected Ur Amphetamines Screen Not Detected U Benzodiazepines Scrn Not Detected Urine Cocaine Screen Not Detected U Marijuana (THC) Screen POSITIVE H Imaging Radiologist's Impressions: Impressions Abdomen/Pelvis CT 12/29/24 12:55 IMPRESSION: Large amount of stool throughout the colon. Diverticulosis of the descending and sigmoid colon, without evidence of diverticulitis. Electronically signed by: Manish Deras MD 12/29/2024 01:40 PM EDT RP Assessment and Plan (1) Erosive esophagitis: Status: Acute Plan 54 transmale PMH migraines, esophogeal and pyloric stenosis, chronic gastritis, GERD, presented with epigastric pain, nasuea and vomiting Epigastric abdominal pain with nausea and vomiting gastritis/esophagitis versus pancreatitis IV hydration, Carafate, IV ppi, clear liquids, GI eval Antiemetics Monitor lipase, BMP DVT prophylaxis with Lovenox Full Code Quality Stroke Does the patient have a stroke diagnosis?: No VTE Prior VTE?: No VTE Risk Level:: Medical - moderate - high VTE Device Contraindication: Treatment Not Indicated VTE Drug Contraindication: N/A - Med Ordered
[2024-12-29] MEDS: Sucralfate Oral Suspension 1 GM/10 ML ORAL.SUSP PO ×2 (15:47→22:21)
[2024-12-29] MEDS: 0.9 % Sodium Chloride Flush 3 ML SYRINGE IVFLUSH (15:48)
[2024-12-29] MEDS: Lactated Ringers 1,000 ML 100 ML IVCONT ×2 (15:48→22:23)
[2024-12-29 17:10] VITALS: BP 133/65; PULSE 54; RESP 12; TEMP 36.6; O2SAT 98
[2024-12-29 19:42] VITALS: BP 117/60; PULSE 44; RESP 15; TEMP 36.9; O2SAT 100
--- NOTE | 2024-12-29 19:54 | PHA.MEDREC ---
Addendum entered by Richard Conde, PharmD 12/29/24 21:11: MED REC CHECKED BY [facility] Original Note: Pharmacy Consult ? Medication Reconciliation Pharmacy has completed the medication reconciliation. Spoke with pt and she confirmed her medications. Pt confirmed her Apretude injection once every 2 months (pt last got it about 1 month ago) and Emgality once a month (pt confirmed she got it ~3 weeks ago and is due in January) and confirmed she gets it from her Dr. Pt takes Vitamin D3 50,000 unit once every 2 weeks on either or and took it last 2 weeks ago.
[2024-12-29 21:51] VITALS: BMI 18.7
[2024-12-30 04:00] VITALS: BP 145/76; PULSE 52; RESP 16; TEMP 36.1; O2SAT 99
[2024-12-30 06:13] LABS: Anion Gap 9 (12-20); Blood Urea Nitrogen 7 mg/dL (9-16); Calcium 8.6 mg/dL (8.4-10.2); Carbon Dioxide 28 mmol/L (22-29); Chloride 109 mmol/L (96-108); Cholesterol 160 mg/dL (<200); Creatinine Clr Calc Pharmacy 80.1; Estimated Glomerular Filt Rate > 60; HDL Cholesterol 47 mg/dL (>40); Lipase 139 U/L (8-78); Magnesium 1.7 mg/dL (1.6-2.6); Potassium 4.4 mmol/L (3.3-5.1); Sodium 142 mmol/L (135-145); Triglycerides 65 mg/dL (<150)
[2024-12-30 06:25] LABS: Hematocrit 36.9 % (37.0-47.0); Hemoglobin 12.4 g/dl (12.0-16.0); Mean Corpuscular HGB Conc 33.6 g/dl (31.0-35.0); Mean Corpuscular Hemoglobin 29.5 pg (27.0-33.0); Mean Corpuscular Volume 87.9 fL (80.0-98.0); NRBC Abs Auto 0.000 X10*3/uL (0.0-0.012); NRBC Pct Auto 0.0 /100WBC (0.0-0.2); Platelet Count 248 X10*3/uL (160-400); Red Blood Count 4.20 X10*6/uL (4.20-5.50); White Blood Count 6.2 X10*3/uL (4.8-10.8)
[2024-12-30 07:28] VITALS: BP 109/64; PULSE 60; RESP 12; TEMP 36.5; O2SAT 98
[2024-12-30] MEDS: Sucralfate Oral Suspension 1 GM/10 ML ORAL.SUSP PO ×4 (07:34→20:36)
[2024-12-30] MEDS: Milk of Magnesia 30 ML ORAL.SUSP PO (07:34)
[2024-12-30 11:19] VITALS: BMI 18.7
--- NOTE | 2024-12-30 11:32 | MHC.CLN ---
NUTRITION DIET=CLEAR LIQUIDS. PATIENT IS TRANSGENDER MALE. APPEARS THIN, BUT DOES NOT APPEAR TO BE MALNOURISHED. REVIEW OF WEIGHT HX SHOWS USUAL BODY WEIGHT RANGE 49-53 KG. DISCUSSED FOOD INTOLERANCES WITH PATIENT. DINING SERVICES ALERTED. WILL TRY ENSURE CLEAR TID. PROVIDES 720 KCALS , 24 G PROTEIN. THIN BUT NOT MALNOURISHED. HX CHRONIC GASTRITIS AND DX EROSIVE ESOPHAGITIS IMPACTING PO INTAKE. FOLLOW FOR DIET ADVANCEMENT AND PO TOLERANCE. SEE CLINICAL NUTRITION ASSESSMENT 12/30/24.
--- NOTE | 2024-12-30 14:06 | MHC.CM.PN ---
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
[2024-12-30 15:20] VITALS: BP 129/75; PULSE 54; RESP 18; TEMP 36.6; O2SAT 100
--- NOTE | 2024-12-30 16:03 | PM.GICN ---
History of Present Illness Data of Consult Service Date: 12/30/24 Requesting physician: Frantz Aguillon Primary Care Provider: MD ELENA Valenzuela Reason for consult: Acute interstitial pancreatitis This is a 54-year-old female -> male (preferred pronouns he/him), who presented to the hospital yesterday for sudden onset abdominal pain with nausea and vomiting. Patient seen with the help of translator interpreter. Patient reports that he has had similar episodes at least 2-3 times in the past. Most recent episode of pancreatitis was 2 years ago. Before this he was hospitalized in early for pancreatitis and also had his GB removed during that hospitalization. He does not report drinking alcohol. He is status post cholecystectomy. No family history of pancreatic cancer. Calcium and triglycerides are normal. Initial CT abd/pel without any pancreatic inflammation but initial lipase >2000. Pain is very typical, midepigastrium radiating to his back. Gets worse with food. Patient is sticking to a liquid diet for now. CT personally reviewed- possibly has uncinate process cyst. Review of Systems Review of Systems: Yes all other systems are reviewed and are negative PMFSH Past Medical History Medical History Sleep difficulties Upper abdominal pain Vomiting LEE (dyspnea on exertion) Arthritis Occipital neuralgia of left side New onset headache Diverticulosis of colon Chronic, continuous use of opioids Chronic GERD Abdominal pain Palpitations Hypotension History of palpitations Dysphagia Disc degeneration, lumbar Spondylosis of lumbar spine Depression Past heart attack Hyperlipemia Erosive osteoarthritis of hands, bilateral GERD (gastroesophageal reflux disease) Hypertension Family History Family History Mother Hypertension Breast cancer Maternal Grandmother Myocardial infarct Skin cancer Sister Heart problem Breast cancer Family/Other Esophageal cancer Surgical History Surgical History History of cholecystectomy Hx of colonoscopy History of esophagogastroduodenoscopy (EGD) H/O bilateral mastectomy H/O: hysterectomy Social History Social History Household Members: Family Housing: Apartment Alcohol intake: never Patient Tobacco Use Status: Former Tobacco user Substance Use Type: Marijuana service: No Meds Allergies Allergy/AdvReac Type Severity Reaction Status Date / Time black pepper Allergy Severe Anaphylaxis Verified 12/29/24 09:50 Penicillins (PENICILLINS) Allergy Intermediate HIVES,SWELL Verified 12/29/24 09:50 ING sumatriptan (SUMATRIPTAN) AdvReac Severe PT STATES Verified 12/29/24 09:50 HEART ATTACK Active Medications: Current Medications Acetaminophen (Acetaminophen 325 Mg Tablet) 650 mg PO Q6H PRN PRN Reason: Pain, Mild 1-3,fever,headache Acetaminophen/Butalbital/Caffeine (Butalb/Acetamin/Caff 50/325/40 Tablet) 1 tab PO Q4H PRN PRN Reason: Headache Calcium Carbonate (Calcium Carbonate 750 Mg Tab.Chew) 750 mg PO Q4H PRN PRN Reason: Heartburn Enoxaparin Sodium (Enoxaparin Sodium 40 Mg/0.4 Ml Syringe) 40 mg SUBCUT Q24H FOR[facility]LY [facility], 1928–1983 Last Admin: 12/30/24 11:23 Dose: 40 mg Hydromorphone HCl (Hydromorphone Hcl 0.5 Mg/0.5 Ml Syringe) 0.5 mg IVPUSH Q4H PRN; Protocol PRN Reason: Pain, Severe (Pain Scale 7-10) Last Admin: 12/30/24 03:58 Dose: 0.5 mg Lactated Ringer's (Lr) 1,000 mls @ 100 mls/hr IVCONT .Q10H JODY Last Admin: 12/30/24 12:06 Dose: Not Given Magnesium Hydroxide (Milk Of Magnesia 30 Ml Oral.Susp) 30 ml PO DAILY PRN PRN Reason: Constipation Last Admin: 12/30/24 07:34 Dose: 30 ml Magnesium Oxide (Magnesium Oxide 400 Mg Tablet) 400 mg PO BEDTIME [facility], [facility] Melatonin (Melatonin 3 Mg Tablet) 6 mg PO BEDTIME PRN PRN Reason: Insomnia Last Admin: 12/29/24 22:21 Dose: 6 mg Metoclopramide HCl (Metoclopramide Hcl 10 Mg/2 Ml Vial) 5 mg IVPUSH Q6H PRN PRN Reason: Nausea and Vomiting Last Admin: 12/29/24 23:10 Dose: 5 mg Ondansetron HCl (Ondansetron Hcl 4 Mg/2 Ml Vial) 4 mg IVPUSH Q6H PRN PRN Reason: Nausea and Vomiting Last Admin: 12/30/24 04:35 Dose: 4 mg Pantoprazole Sodium (Pantoprazole Sodium 40 Mg/10 Ml Vial) 40 mg IVPUSH BID@0630,1630 [facility], [facility] Last Admin: 12/30/24 05:30 Dose: 40 mg Sodium Chloride (0.9 % Sodium Chloride Flush 3 Ml Syringe) 3 ml IVFLUSH QSHIFT [facility], [facility] Last Admin: 12/30/24 07:33 Dose: Not Given Sucralfate (Sucralfate Oral Suspension 1 Gm/10 Ml Oral.Susp) 1 gm PO QIDACHS [facility], [facility] Last Admin: 12/30/24 12:06 Dose: 1 gm Home Medications ?Medication ?Instructions ?Recorded ?Confirmed ?Last Taken ?Type cabotegravir 600 mg/3 mL (200 600 mg IM [id number] 05/26/24 12/29/24 1 Month Ago History mg/mL) IM suspension,extended ~11/28/24 release (Apretude) sucralfate 100 mg/mL oral 20 ml PO DAILY PRN ULCERS 12/07/24 12/29/24 Unknown History suspension cholecalciferol (vitamin D3) 1,250 1,250 mcg PO Q2W 12/29/24 12/29/24 2 Weeks Ago History mcg (50,000 unit) capsule ~12/15/24 linaclotide 145 mcg capsule 145 mcg PO DAILY 12/29/24 12/29/24 12/28/24 History (Linzess) omeprazole 20 mg tablet,delayed 20 mg PO DAILY@0630 12/29/24 12/29/24 12/29/24 History release Physical Exam Exam: Exam: Middle-aged gentleman No acute distress Abdomen soft, tender, mildly distended, no guarding No overt respiratory distress No lower extremity edema Vital Signs: Vital Signs: Last Vital Signs Temp 97.8 F 12/30/24 15:20 Pulse 54 12/30/24 15:20 Resp 18 12/30/24 15:20 BP 129/75 12/30/24 15:20 Pulse Ox 100 12/30/24 15:20 O2 Del Method Room Air 12/30/24 15:20 BMI result Body Mass Index 18.7 Results Labs 12/30/24 05:45 12/30/24 05:45 Labs: Short CBC 12/30/24 Range/Units 05:45 WBC 6.2 (4.8-10.8) X10*3/uL Hgb 12.4 (12.0-16.0) g/dl Hct 36.9 L (37.0-47.0) % Plt Count 248 D (160-400) X10*3/uL [facility] 12/30/24 05:45 Sodium 142 Potassium 4.4 Chloride 109 H Carbon Dioxide 28 BUN 7 L Creatinine 0.62 Calcium 8.6 D Assessment and Plan (1) Pancreatitis: Status: Acute Plan Patient presenting with acute interstitial pancreatitis. This is a background of cholecystectomy, no alcohol use, normal triglycerides and calcium. Differentials for etiology for underlying pancreatitis PD obstruction from panc cyst, panc divisum, PD stricture, autoimmune pancreatitis. Based on normal LFTs and nondilated CBD, does not appear to be biliary pancreatitis. Plan: - Cont clears - Advance as tolerated to low fat diet - Pain control with jody tylenol 650 TID and PRN oxy 5 mg TID - Monitor BG and avoid hyperglycemia - Check CRISTEL and IgG4 for autoimmune panc - MRI pancreas protocol Thank you for allowing me to participate in his care. Please do not hesitate to reach out for any questions or concerns. UPDATE - Recv'd msg from Dr Pedroza that unable to do MRI due to [facility] constraints. Will obtain this as outpatient in 1-2 weeks post discharge. Procedures Date of Service Date of Service: 12/30/24
[2024-12-30] MEDS: 0.9 % Sodium Chloride Flush 3 ML SYRINGE IVFLUSH (16:50)
[2024-12-30 19:41] VITALS: BP 135/75; PULSE 56; RESP 16; TEMP 36.4; O2SAT 100
[2024-12-30] MEDS: Butalb/Acetamin/Caff 50/325/40 TABLET 1 TAB PO (21:55)
[2024-12-30] MEDS: Lactated Ringers 1,000 ML 100 ML IVCONT (21:58)
[2024-12-31 03:13] VITALS: BP 109/59; PULSE 51; RESP 17; TEMP 36.3; O2SAT 99
[2024-12-31] MEDS: Lactated Ringers 1,000 ML 100 ML IVCONT (06:16)
[2024-12-31 07:21] VITALS: BP 144/77; PULSE 51; RESP 12; TEMP 36; O2SAT 99
[2024-12-31] MEDS: Sucralfate Oral Suspension 1 GM/10 ML ORAL.SUSP PO ×3 (07:35→15:35)
--- NOTE | 2024-12-31 13:53 | P.PNGI_ITS ---
Subjective Subjective Date of Service: 12/31/24 Interval History: Seen and evaluated at bedside. Reports improvement in pain. Has tolerated solid diet today without any issues. No nausea and vomiting. Critical Care Time (minutes): 0 Physical Exam 2 Exam: Exam: Alert and oriented x3 Abdomen soft, nontender, nondistended, no guarding No respiratory distress Vital Signs: Vital Signs: Last Vital Signs Temp 96.8 F 12/31/24 07:21 Pulse 51 12/31/24 07:21 Resp 12 12/31/24 07:21 BP 144/77 H 12/31/24 07:21 Pulse Ox 99 12/31/24 07:21 O2 Del Method Room Air 12/31/24 07:21 BMI result Body Mass Index 18.7 Objective Data Labs 12/30/24 05:45 12/30/24 05:45 Procedures Date of Service Date of Service: 12/31/24 Progress Note: A&P Assessment and plan (1) Pancreatitis: Status: Acute (2) Abdominal pain: Status: Acute Plan Meets criteria for acute pancreatitis given typical abdominal pain with elevated lipase. Clinically progressing well. Tolerating solid diet today. Differentials for etiology for underlying pancreatitis PD obstruction from panc cyst, panc divisum, PD stricture, autoimmune pancreatitis. Plan: - Stay on low fat diet x 4 weeks - CRISTEL and IgG pending - Outpatient MRI abd pancreas protocol will be ordered. Time Spent With Patient Time: Total time managing care of this patient today ____ minutes. Quality Stroke Does the patient have a stroke diagnosis?: No VTE Prior VTE?: No VTE Risk Level:: Medical - moderate - high VTE Device Contraindication: Treatment Not Indicated VTE Drug Contraindication: N/A - Med Ordered
--- NOTE | 2024-12-31 15:41 | P.DS_ITS ---
DS: Providers Provider Date of Service: 12/31/24 Date of admission: 12/29/24 14:54 Date of discharge: 12/31/24 Primary care physician: Emilie Davis MD Consults: 12/29/24 15:20 Consult to Gastroenterology Routine Consulting Provider: [facility] Reason for consultation: n/v epigastric pain, elevated lipase DS: Diagnosis Discharge Diagnosis (1) Pancreatitis: Status: Acute (2) Abdominal pain: Status: Acute DS: Summary Hospital Course Hospital Course: 54 transmale PMH migraines, esophogeal and pyloric stenosis, chronic gastritis, GERD, presented with epigastric pain, nasuea and vomiting, patient reports feeling well 2 days prior to presentation. On day prior to presentation started to feel dull epigastric pain but was still tolerating solids. On day of presentation patient to woke up at about 03:00 with severe epigastric sharp twisting pain radiating to left upper quadrant associated with nausea and vomiting nonbloody material. Denies fever, shortness of breath, diarrhea. No change in meds recently. In ED CT abdomen unremarkable. Labs with mild metabolic alkalosis and lipase of 2196, otherwise LFTs normal. Hospital Course Patient admitted to general medical floor and kept NPO with IV narcotics. Seen in consultation by GI who recommended advance to low-fat diet for the next 4 weeks. CRISTEL and IgG4 were ordered. MRI of pancreas pancreas protocol we will be done as an outpatient. Patient tolerated advancement of diet and on the day of discharge was tolerating diet without pain. He will be discharged home advance diet as scheduled and follow up with Dr. Mills in the office Time Attestation Discharge Coordination Time (in mins): 35 Quality: Safe Use of Opioids Does Pt have an Active Cancer Diagnosis on the Problem List?: No Quality: Stroke Does the patient have a stroke diagnosis?: No Physical Exam Vital Signs: Vital Signs: Last Vital Signs Temp 96.8 F 12/31/24 07:21 Pulse 51 12/31/24 07:21 Resp 12 12/31/24 07:21 BP 144/77 H 12/31/24 07:21 Pulse Ox 99 12/31/24 07:21 O2 Del Method Room Air 12/31/24 07:21 BMI result Body Mass Index 18.7 Const: Other: Awake alert no acute distress Resp: Other: Clear to auscultation bilaterally no rales rhonchi or wheezes Cardio: Other: No S4; positive S1-S2; no S3 murmurs rubs or gallops GI: Other: Soft nontender nondistended normoactive bowel sounds Extrem: Other: No edema bilaterally Discharge Plan Discharge Anticipated Discharge Date/Time: 12/31/24 15:38 Patient Disposition: Home, Self-Care Discharge Diagnosis: Acute pancreatitis Referrals: Emilie Davis MD [Primary Care Provider, [facility]] - 1 Week Discharge Medications: Continued sjijfekicn-jhqpgcdirscvt-wkoe [Fioricet] 50-300-40 mg capsule 1 cap PO Q4-6H PRN (Reason: headache) Qty: 10 0RF omeprazole 20 mg Tablet,Delayed Release (Dr/Ec) 20 mg PO DAILY@0630 Linzess 145 mcg capsule 145 mcg PO DAILY cholecalciferol (vitamin D3) 1,250 mcg (50,000 unit) capsule 1,250 mcg PO Q2W Rx Instructions: PT TAKES ON Wednesdays OR THURSDAYS naratriptan 2.5 mg tablet See Rx Instructions PO .COMPLEX PRN (Reason: migraine headache) 30 Days Qty: 12 6RF Rx Instructions: take 1/2 - 1 tab at onset of headache; if no relief may repeat 1 tab after at least 4 hrs; max = 2 tabs/24 hrs orally PRN; (DME) Oxygen Home Use Kit See Rx Instructions .Route Qty: 3 0RF Rx Instructions: Start home O2 at 15-25 L/min via non-rebreather facemask x's 15-20 minutes at onset of cluster headache attack. Patient will require both M tanks and E tanks. magnesium oxide 400 mg (241.3 mg magnesium) tablet 400 mg PO BEDTIME 30 Days Qty: 30 6RF Rx Instructions: may hold for loose stools Emgality Syringe 300 mg/3 mL (100 mg/mL x 3) syringe 300 mg subcut QMONTH 30 Days Qty: 3 3RF Rx Instructions: administer as three 100 mg injections at separate sites cabotegravir [Apretude] 600 mg/3 mL (200 mg/mL) suspension,extended release 600 mg IM [id number] sucralfate 100 mg/mL suspension 20 ml PO DAILY PRN (Reason: ULCERS) Discharge Orders: Discharge Order (Routine); Ordered 12/31/24 Ordered By: Julien Hagan Diet: Low fat, low cholesterol Activity on Discharge: As tolerated Stand Alone Forms: Patient Portal Discharge page Print Language: Welsh Care Plan Goals: Resume all meds as taken prior to hospitalization Health Concerns: Low-fat diet for 4 weeks Plan of Treatment: Follow up with Dr. Mills; her office will call with the appointment Assessment: See discharge summary
[2024-12-31 15:43] VITALS: BP 145/78; PULSE 51; RESP 16; TEMP 36.3; O2SAT 100
--- NOTE | 2024-12-31 15:55 | MHC.CM.PN ---
PT TO DC HOME TODAY WITH NO SERVICES VIA PRIVATE TRANSPORT
[2025-01-01 12:28] LABS: Immunoglobulin G Subclass 1 750 mg/dL (382-929); Immunoglobulin G Subclass 2 221 mg/dL (241-700); Immunoglobulin G Subclass 3 54 mg/dL (22-178); Immunoglobulin G Subclass 4 25.4 mg/dL (4-86); Immunoglobulin G Total 1099 mg/dL (600-1640)
[2025-01-04 11:08] LABS: Anti Nuclear Antibody Screen NEGATIVE (NEGATIVE)
== END 2024-12-31 16:20 | disposition home or self-care (01) | DRG 282 ==
LOC: HO.ED 14:56 → HO.EDOVER 15:07 → HO.S3 19:28
PROVIDERS: Internal Medicine; Admitting Provider Internal Medicine; Emergency Provider Student in an Organized Health Care Education/Training Program; PCP Family Medicine; Visit Provider Hospitalist
DX: K85.90 Acute pancreatitis without necrosis or infection, unspecified (principal); E87.3 Alkalosis; Z99.81 Dependence on supplemental oxygen; F64.0 Transsexualism; Z79.899 Other long term (current) drug therapy
CPT/HCPCS: 36415; 74177; 80048; 80061; 80076; 80307; 81003; 82784; 83690; 83735; 85025; 85027; 86038; 99221; 99285; J1171; J1650; J2270; J2405; J2470; J2765; J7120

== ENCOUNTER → 2024-12-29 12:38 | Outpatient (BNV) | payer OTHER, SELFPAY | PROVIDERS: Emergency Provider Student in an Organized Health Care Education/Training Program; PCP Family Medicine; Visit Provider Radiology Diagnostic Radiology | DX: K57.30 Diverticulosis of large intestine without perforation or abscess without bleeding (principal) | CPT/HCPCS: 74177 ==

== ENCOUNTER → 2024-12-29 14:54 | Outpatient (BNV) | payer OTHER, SELFPAY | PROVIDERS: Admitting Provider Internal Medicine; Emergency Provider Student in an Organized Health Care Education/Training Program; PCP Family Medicine; Visit Provider Internal Medicine | DX: K22.10 Ulcer of esophagus without bleeding (principal) | CPT/HCPCS: 99222; 99239 ==

== ENCOUNTER → 2024-12-29 14:54 | Outpatient (BNV) | payer OTHER, SELFPAY | PROVIDERS: Admitting Provider Internal Medicine; Emergency Provider Student in an Organized Health Care Education/Training Program; PCP Family Medicine; Visit Provider Internal Medicine | DX: K85.90 Acute pancreatitis without necrosis or infection, unspecified (principal); R10.9 Unspecified abdominal pain | CPT/HCPCS: 99232 ==

== ENCOUNTER 2025-01-08 09:04 | Outpatient (AMB) | payer OTHER, SELFPAY ==
--- NOTE | 2025-01-08 09:05 | A.OFFVIS_ITS ---
Vital Signs 01/08/25 09:07 Height 5 ft 4 in Weight 113 lb BMI 19.4 BP 105/81 Respiration 16 Pulse 60 Pulse Oximetry (%) 99 Intake Visit Reasons: Bile reflux esophagitis Intake Note: c/o of constipation x 1mo. Vehicle Assembler Required: Yes Vehicle Assembler Language: Safety Aide Services: Vehicle Assembler Present (inn person) Vehicle Assembler Name: Eunice ARENAS Information Interpreted: non-clinical & clinical Accompanied by: Self / Same As Patient Allergies black pepper Allergy (Severe, Verified 02/09/25 13:15) Anaphylaxis Penicillins (PENICILLINS) Allergy (Intermediate, Verified 02/09/25 13:15) HIVES,SWELLING sumatriptan (SUMATRIPTAN) Adverse Reaction (Severe, Verified 02/09/25 13:15) PT STATES HEART ATTACK Post menopausal: Yes HPI HPI Bile reflux esophagitis: Details: Assessment & Plan (1) GERD (gastroesophageal reflux disease): Code(s): K21.9 - Gastro-esophageal reflux disease without esophagitis Category: Medical (2) Upper abdominal pain: Code(s): R10.10 - Upper abdominal pain, unspecified Category: Medical (3) Bile reflux gastritis: Code(s): K29.60 - Other gastritis without bleeding Category: Medical (4) Bile reflux esophagitis: Code(s): K21.00 - Gastro-esophageal reflux disease with esophagitis, without bleeding Category: Medical (5) Erosive esophagitis: Code(s): K22.10 - Ulcer of esophagus without bleeding Category: Medical (6) Chronic constipation: Code(s): K59.09 - Other constipation Category: Medical Plan [place]IZ[id number] He is doing better but the LInzess did not help, instead he is doing metamucil and drinking more water and moving the bowels better. I remind him to get the stool sample. His upper abd pain had improved with better bowel movements and the bentyl. He continues on sucralfate for the erosive/bile esophagitis/gastritis. He also has dicyclomine for cramping. After 01/14 barium swallow Medications: Discontinued linaclotide (Linzess) Discontinued Reason: Patient no longer taking 290 mcg PO QAM 30 days 30 caps 6RF REVIEW OF HOSPITAL ADMISSION FOR PANCREATITIS 12/31/2024 Meets criteria for acute pancreatitis given typical abdominal pain with elevated lipase. Clinically progressing well. Tolerating solid diet today. Differentials for etiology for underlying pancreatitis PD obstruction from panc cyst, panc divisum, PD stricture, autoimmune pancreatitis. Plan: - Stay on low fat diet x 4 weeks - CRISTEL and IgG pending - Outpatient MRI abd pancreas protocol will be ordered. CT ABDOMEN AND PELVIS 12/29/2024 FINDINGS: LOWER CHEST: The visualized lung bases are clear. There is no pleural effusion. CARDIOVASCULATURE: The heart is normal in size. There is no pericardial effusion. LIVER: The liver is normal in size and contour. Tiny subcentimeter hypodensities are noted at the dome of the liver which are too small to accurately characterize. The hepatic and portal veins are patent. GALLBLADDER / BILE DUCTS: The gallbladder is surgically absent. There is no intra or extrahepatic biliary ductal dilatation. SPLEEN: The spleen is normal in size. No focal splenic lesion is identified. PANCREAS: The pancreas is unremarkable in appearance. ADRENAL GLANDS: Within normal limits. KIDNEYS/RETROPERITONEUM: No renal calculi are identified. There is no hydronephrosis. No renal masses are identified. LYMPH NODES: No abdominal or pelvic lymphadenopathy. VASCULATURE: The abdominal aorta is normal in caliber. MESENTERY/PERITONEUM: No free fluid. No masses. There is no free intraperitoneal gas. STOMACH: The stomach is collapsed, limiting evaluation. SMALL BOWEL: The small bowel is normal in caliber. COLON: There is a large amount of stool throughout the colon. There is diverticulosis of the descending and sigmoid colon, without evidence of diverticulitis. APPENDIX: Normal. URINARY BLADDER/PELVIC ORGANS: The urinary bladder is unremarkable. The patient is status post hysterectomy. BONES / SOFT TISSUES: No suspicious bony or soft tissue abnormalities. CT/CT abdomen pelvis w IV con IMPRESSION: Large amount of stool throughout the colon. Diverticulosis of the descending and sigmoid colon, without evidence of diverticulitis. CORRESPONDENCE On 01/05/25 @ 11:12 Cha Mills Wrote To Aida Orozco Jae Parra Saw him inpt for acute pancreatitis. Auto immune labs are negative. MRI ordered as jody for early next month. Happy to answer any questions, thanks On 01/04/25 @ 11:42 System Wrote To Cha Mills Results added. Task updated.le Laboratory Tests 11/26/24 12/29/24 12/30/24 13:24 10:00 05:45 WBC 6.2 Hgb 12.4 Hct 36.9 L MCV 87.9 MCH 29.5 Plt Count 248 D Estimated GFR > 60 Calcium 8.6 D Total Bilirubin 0.4 Direct Bilirubin 0.1 AST 26 ALT 19 Alkaline Phosphatase 90 Triglycerides 65 Lipase 2196 H 139 H Methylmalonic Acid 197 CRISTEL Screen Hepatitis C Ab (EIA) Reactive H Hep C Viral Load <15 NOT DETECTED Hep C Viral Load Log <1.18 NOT DETECTED HIV-1 RNA copies/mL NOT DETECTED 12/31/24 08:09 WBC Hgb Hct MCV MCH Plt Count Estimated GFR Calcium Total Bilirubin Direct Bilirubin AST ALT Alkaline Phosphatase Triglycerides Lipase Methylmalonic Acid CRISTEL Screen NEGATIVE Hepatitis C Ab (EIA) Hep C Viral Load Hep C Viral Load Log HIV-1 RNA copies/mL SPEP was normal [facility] Medical History (Updated 02/03/25 @ 09:20 by MIHIR Perez) Pancreatic mass Erosive esophagitis Abdominal pain Sleep difficulties Upper abdominal pain Vomiting LEE (dyspnea on exertion) Arthritis Occipital neuralgia of left side New onset headache Diverticulosis of colon Chronic, continuous use of opioids Chronic GERD Palpitations Hypotension History of palpitations Dysphagia Disc degeneration, lumbar Spondylosis of lumbar spine Depression Past heart attack Hyperlipemia Erosive osteoarthritis of hands, bilateral GERD (gastroesophageal reflux disease) Hypertension Surgical History History of cholecystectomy Hx of colonoscopy History of esophagogastroduodenoscopy (EGD) H/O bilateral mastectomy H/O: hysterectomy Family History Mother Hypertension Breast cancer Maternal Grandmother Myocardial infarct Skin cancer Sister Heart problem Breast cancer Family/Other Esophageal cancer Social History Household Members: Family Housing: Apartment Are you a primary resident care manager to a significant other at home: No Do you presently have visiting nurse or other home services: No Alcohol intake: never Patient Tobacco Use Status: Former Tobacco user Substance Use Type: Marijuana service: No Review of Systems Const Denies fatigue, Denies fever(s), Denies night sweats, Denies poor appetite and Reports weight loss Eyes Details: glasses Reports requires corrective lenses ENT Reports Normal hearing present, Denies dental pain, Denies dysphagia, Denies hearing loss, Denies mouth pain, Denies odynophagia, Denies throat swelling, Denies tongue swelling and Reports other (Dentition adequate) Card Reports chest pain Resp Reports no additional complaints GI Details: Reports abdominal pain, Denies melena, Reports bloating, Denies hematochezia, Reports constipation, Denies GI cramping, Denies dysphagia, Denies excessive flatus, Denies early satiety, Reports heartburn, Denies diarrhea, Reports nausea, Denies odynophagia, Denies vomiting and Denies hematemesis Skin/Breast Denies pruritus, Denies lesions, Denies rash and Denies jaundice Neuro Reports Normal hearing present and Denies Abnormal speech present Psych Reports anxiety Endo Denies fatigue Aller/Immun Denies throat swelling and Denies tongue swelling Physical Exam Vital Signs: Last Vital Signs Pulse 60 01/08/25 09:07 Resp 16 01/08/25 09:07 BP 105/81 01/08/25 09:07 Pulse Ox 99 01/08/25 09:07 BMI result Body Mass Index 19.4 Const General: cooperative, no acute distress, well developed and well groomed Nutritional Appearance: average body habitus and well nourished Orientation/consciousness: oriented to person, oriented to place and oriented to time Limitations: language barrier HEENT Head: Yes normocephalic and Yes atraumatic Eyes General: appearance normal, both eyes and all related structures Pupils: Equal, round and reactive pupils present Neck Neck: Yes normal visual inspection and Yes no lymphadenopathy Thyroid: Thyroid normal Resp Effort & Inspection: normal respiratory effort and able to speak in complete sentences Auscultation: clear to auscultation bilaterally Cardio Rate: regular rate Rhythm: regular rhythm Heart sounds: Normal, physiologic split S2 sound present Peripheral pulses: radial pulses present and posterior tibial pulses present GI Inspection: No distended and No Abdominal panniculus present Palpation (GI): Soft to palpation, Tenderness to palpation present (GI) in the epigastrum and periumbilically, no guarding, not rigid and No hepatosplenomegaly present Percussion: Yes normal to percussion Auscultation: Hypoactive bowel sounds present Rectal Exam - Female: deferred Skin General skin exam: no rashes or lesions noted, turgor normal, skin not dry, no jaundice, No spider nevi and no striae Rashes: no rashes Nails: normal Neuro General: oriented to person, oriented to place and oriented to time Cranial nerves: Yes Equal, round and reactive pupils present and Yes Normal hearing present Speech: No Abnormal speech present Extrem General: Yes normal to inspection, No clubbing, No cyanosis and No edema Psych Appearance: grossly normal and well kempt Mental Status: mental status grossly normal Speech and movement: Normal speech and movement present Affect: Anxious affect present Attitude: cooperative Thought process: Normal thought process present and not confabulating Thought content: Normal thought content present Insight: Limited insight present (Psych) Judgement: Limited judgement present (Psych) Results Reviewed Results Reviewed: REVIEW OF HOSPITAL ADMISSION FOR PANCREATITIS 12/31/2024 Meets criteria for acute pancreatitis given typical abdominal pain with elevated lipase. Clinically progressing well. Tolerating solid diet today. Differentials for etiology for underlying pancreatitis PD obstruction from panc cyst, panc divisum, PD stricture, autoimmune pancreatitis. Plan: - Stay on low fat diet x 4 weeks - CRISTEL and IgG pending - Outpatient MRI abd pancreas protocol will be ordered. CT ABDOMEN AND PELVIS 12/29/2024 FINDINGS: LOWER CHEST: The visualized lung bases are clear. There is no pleural effusion. CARDIOVASCULATURE: The heart is normal in size. There is no pericardial effusion. LIVER: The liver is normal in size and contour. Tiny subcentimeter hypodensities are noted at the dome of the liver which are too small to accurately characterize. The hepatic and portal veins are patent. GALLBLADDER / BILE DUCTS: The gallbladder is surgically absent. There is no intra or extrahepatic biliary ductal dilatation. SPLEEN: The spleen is normal in size. No focal splenic lesion is identified. PANCREAS: The pancreas is unremarkable in appearance. ADRENAL GLANDS: Within normal limits. KIDNEYS/RETROPERITONEUM: No renal calculi are identified. There is no hydronephrosis. No renal masses are identified. LYMPH NODES: No abdominal or pelvic lymphadenopathy. VASCULATURE: The abdominal aorta is normal in caliber. MESENTERY/PERITONEUM: No free fluid. No masses. There is no free intraperitoneal gas. STOMACH: The stomach is collapsed, limiting evaluation. SMALL BOWEL: The small bowel is normal in caliber. COLON: There is a large amount of stool throughout the colon. There is diverticulosis of the descending and sigmoid colon, without evidence of diverticulitis. APPENDIX: Normal. URINARY BLADDER/PELVIC ORGANS: The urinary bladder is unremarkable. The patient is status post hysterectomy. BONES / SOFT TISSUES: No suspicious bony or soft tissue abnormalities. CT/CT abdomen pelvis w IV con IMPRESSION: Large amount of stool throughout the colon. Diverticulosis of the descending and sigmoid colon, without evidence of diverticulitis. CORRESPONDENCE On 01/05/25 @ 11:12 Cha Mills Wrote To Aida Orozco Jae Parra Saw him inpt for acute pancreatitis. Auto immune labs are negative. MRI ordered as jody for early next month. Happy to answer any questions, thanks On 01/04/25 @ 11:42 System Wrote To Cha Mills Results added. Task updated.le Laboratory Tests 11/26/24 12/29/24 12/30/24 13:24 10:00 05:45 WBC 6.2 Hgb 12.4 Hct 36.9 L MCV 87.9 MCH 29.5 Plt Count 248 D Estimated GFR > 60 Calcium 8.6 D Total Bilirubin 0.4 Direct Bilirubin 0.1 AST 26 ALT 19 Alkaline Phosphatase 90 Triglycerides 65 Lipase 2196 H 139 H Methylmalonic Acid 197 CRISTEL Screen Hepatitis C Ab (EIA) Reactive H Hep C Viral Load <15 NOT DETECTED Hep C Viral Load Log <1.18 NOT DETECTED HIV-1 RNA copies/mL NOT DETECTED 12/31/24 08:09 WBC Hgb Hct MCV MCH Plt Count Estimated GFR Calcium Total Bilirubin Direct Bilirubin AST ALT Alkaline Phosphatase Triglycerides Lipase Methylmalonic Acid CRISTEL Screen NEGATIVE Hepatitis C Ab (EIA) Hep C Viral Load Hep C Viral Load Log HIV-1 RNA copies/mL SPEP was normal Assessment & Plan Assessment & Plan (1) Dysphagia: Comment: History of EGD with dilation x2 Savary(Desilets-2018) dilation as well as balloon dilation(Mukesh-2018) Chew well, eat slowly, EGD possible dilation Code(s): R13.10 - Dysphagia, unspecified Category: Medical (2) Bile reflux gastritis: Code(s): K29.60 - Other gastritis without bleeding Category: Medical (3) Bile reflux esophagitis: Code(s): K21.00 - Gastro-esophageal reflux disease with esophagitis, without bleeding Category: Medical (4) GERD (gastroesophageal reflux disease): Code(s): K21.9 - Gastro-esophageal reflux disease without esophagitis Category: Medical (5) Acute pancreatitis: Code(s): K85.90 - Acute pancreatitis without necrosis or infection, unspecified Category: Medical (6) Chronic constipation: Code(s): K59.09 - Other constipation Category: Medical Plan [place] #Tri Her current GI regimen consists of famotidine, bisacodyl, Linzess 145 micro g and Creon - The patient is a 54-year-old female presenting after an inpatient hospitalization for acute pancreatitis seen by Dr. Mills and also for her severe constipation, GERD and dysphagia. - Acute pancreatitis involved severe abdominal pain and vomiting for three days, and its etiology remains unidentified after ruling out common causes. - Constipation has been persistent and worsening over the last month, with limited relief from medications like Linzess 145 micro g and milk of magnesia. - although the abdominal pain has lessened she continues to have severe heartburn/GERD and severe constipation. She is aware that we have ordered an MRI for further investigation since her pancreatitis is not tied to alcohol consumption nor medications nor gallstones that we can tell. - Surgical history includes recent vein surgery, along with associated narcotic use that may have aggravated bowel symptoms. - Current investigations include an MRI to explore pancreatic duct causes and a barium swallow to diagnose swallowing difficulties. At this point she has a constellation of severe symptoms that I can not entirely explain. I am going to check her amylase and lipase to make sure the pancreatitis is not again exacerbating. I also want to get an x-ray of the abdomen to see if small-bowel obstruction is a possibility. Because she did not have any relief with omeprazole we will stop it, she felt better using famotidine so we will continue this. I am going to start Creon to see if we can support her pancreas until we know an underlying pathology. Because her constipation is so severe I think we should stop her sucralfate. Return office visit in 2 weeks Orders: Orders Amylase 01/08/25 K85.90 - Acute pancreatitis without necrosis or infection, unspecified Lipase 01/08/25 K85.90 - Acute pancreatitis without necrosis or infection, unspecified Medications: New linaclotide (Linzess) 290 mcg PO QAM 30 caps 0RF 30 days tboeii-mrciyzio-leaguvm 3,000-9,500- 15,000 unit (Creon) do not exceed 10,000 unit/kg lipase per 24 hrs 2 caps PO BID 120 caps 6RF 30 days K59.04 - Chronic idiopathic constipation famotidine (Pepcid) 40 mg PO BEDTIME 30 tabs 6RF Patient Instructions: 1. Suspenda el omeprazol. 2. Comience con famotidina antes de acostarse. 3. Aumente la dosis de Linzess a 290 mcg. Por favor, cons?gala en la farmacia y comience. 4. Suspenda el sucralfato. 5. Vaya hoy mismo al laboratorio para an?lisis de georgina y a arelis radiograf?a abdominal. 6. Galeano degluci?n con bario es 01/14 y galeano resonancia magn?shira es 01/19. Por favor, consiga los horarios a mi personal. 7. Comience con arelis nueva medcidina llamada Creon para apoyar el p?ncreas. Louise 2 c?psulas dos veces al d?a. Puede abrirlas y espolvorearlas sobre la comida, postre, etc.8. Quiero verle en 2 semanas Coding Level of Care Code Est Pt Level 4 (40813) Diagnoses Dysphagia R13.10 Bile reflux gastritis K29.60 Bile reflux esophagitis K21.00 GERD (gastroesophageal reflux disease) K21.9 Acute pancreatitis K85.90 Chronic constipation K59.09 Time Spent (min) 38
[2025-01-08 09:07] VITALS: BP 105/81; PULSE 60; RESP 16; O2SAT 99; BMI 19.4
--- OUTSIDE RECORDS SUMMARY | 2025-01-08 09:56 | XMS_ITS | Encounter Summary ---
Author Organization [employer] [facility] Address 75 [facility] 7t [place] [address] Care Team Providers Care Economic Development Director Name Role Phone Emilie Davis MD Primary Care Provider +- [phone] Morales Echavarria POLICY CHANGE CLERK Unavailable Unavailable August Unavailable Fred Castanon Unavailable Encounter Details Date Type Department Care Team (Late st Contact Info) Description 05/27/[address] [address] Emilie Davis MD [address] [place] [address] [phone] Social History Tobacco Use Types Packs/Day Years [...] Care Team (Late st Contact Info) Description 01/12/2025 9:30 AM EDT Office Visit [address] [phone] Lauren Borrero FNP 230 [place], [place] [phone] 01/22/2025 9:00 AM EDT Clinical Support [address] [phone] Medina Lewis, RONALD 230 [place] [address] documented as of this encounter Procedures Procedure Name Priority Date/Time Associated Diagnosis Comments COLONOSCOPY Routine 01/30/2018 HPV HIGH RISK PCR Routine 12/06/2017 12: 00 AM EDT PAP SMEAR Routine 12/06/2017 12:00 AM EDT documented in this encounter Results * Colonoscopy (01/30/2018) Colonoscopy normal Historical Provider HEALTH MAINTENANCE Final Result * HPV High Risk PCR (12/06/2017 12:00 AM EDT) [facility] Provider LAB MICROBIOLOGY - GENERA L ORDERABLES Final Result IMAGING * Pap Smear (12/06/2017 12:00 AM EDT) Swab Historical Provider LAB CYTOLOGY ORDERABLES F inal Result [facility] [address] [place] [phone] documented in this encounter Visit Diagnoses Not on filedocumented in this encounter Care Teams Economic Development Director Relationship Specialty Start Date End Date Emilie Davis MD [address] [place] [address] PCP - General Family Medicine 05/13/18 Morales Echavarria FNP [address] [place] [address] 89263 Nurse Practitioner Family Medicine 04/16/[address] [place] [address] [place] [address] Gastroenterology 05/26/24 Fred Castanon [address] [place] [address] [place] [address] 07/21/24 documented as of this encounter
--- OUTSIDE RECORDS SUMMARY | 2025-01-08 09:56 | XMS_ITS | Encounter Summary ---
Author Organization [employer] Address [address] [facility] [address] 7t [place] [address] Care Team Providers Care Choir Member Name Role Phone Emilie Davis MD Primary Care Provider +1- [phone] Morales Echavarria Unavailable Unavailable August Unavailable Fred Castanon Unavailable Encounter Details Date Type Department Care Team (Late st Contact Info) Description 03/25/2023 Orders Only [facility] 230 [place] [address] Emilie Davis MD 230 [place] [address] Social History Tobacco Use Types Packs/Day Years [...] Description 01/12/2025 9:30 AM EDT Office Visit [facility] MEDICINE [address] [place] [address] Lauren Borrero FNP [address] [place] [address] 01/22/2025 9:00 AM EDT Clinical Support [facility] [address] [place] [address] Medina Lewis, RONALD [address] [place] [address] documented as of this encounter Visit Diagnoses Not on filedocumented in this encounter Additional Health Concerns Assessment Noted Time PHQ-9 Depression Total Score: 10 023 9:08 AM EDT documented as of this encounter Care Teams Choir Member Relationship Specialty Start Date End Date Emilie Davis MD [address] [place] [address] PCP - General Family Medicine 05/13/18 Morales Echavarria FNP [address] [place] [address] 19787 Nurse Practitioner Family Medicine 04/16/[address] 3rd [place] [address] Gastroenterology 05/26/24 Fred Castanon [address] 3rd [place] [address] 07/21/24 documented as of this encounter
--- OUTSIDE RECORDS SUMMARY | 2025-01-08 09:56 | XMS_ITS | Encounter Summary ---
Author Organization [employer] [facility] Address 75 [facility] 7t [place] [address] Care Team Providers Care Spanish Moss Picker Name Role Phone Emilie Davis MD Primary Care Provider +- [phone] Morales Echavarria SAUSAGE STUFFER Unavailable Unavailable August Unavailable Fred Castanon Unavailable Reason for Visit * Reason Comments Med Refill Encounter Details Date Type Department Care Team (Late st Contact Info) Description 06/27/2022 Refill [facility] [address] [place] [address] Emilie Davis MD [address] [place] [address] [phone] Social History Tobacco Use Types Packs/Day Years [...] Description 01/12/2025 9:30 AM EDT Office Visit [facility] [address] [place] [address] [phone] Lauren Borrero FNP 230 [place] [address] 01/22/2025 9:00 AM EDT Clinical Support [address] [address] Medina Lewis, RN 230 [place] [address] documented as of this encounter Visit Diagnoses Not on filedocumented in this encounter Care Teams Spanish Moss Picker Relationship Specialty Start Date End Date Emilie Davis MD [address] [place] [address] PCP - General Family Medicine 05/13/18 Morales Echavarria FNP [address] [place] [address] 25196 Nurse Practitioner Family Medicine 04/16/[address] [place] [address] Gastroenterology 05/26/24 Fred Castanon [address] [place] [address] 07/21/24 documented as of this encounter
--- OUTSIDE RECORDS SUMMARY | 2025-01-08 09:56 | XMS_ITS | Encounter Summary ---
Author Organization [employer] Address 75 [facility] 7t [place] [address] Care Team Providers Care Liquor Rectifier Name Role Phone Emilie Davis MD Primary Care Provider +- [phone] Morales Echavarria ENGAGEMENT EXECUTIVE Unavailable Unavailable August Unavailable Fred Castanon Unavailable Encounter Details Date Type Department Care Team (Late st Contact Info) Description 04/22/2022 Orders Only [facility] [address] [place], [place] [phone] Emilie Davis MD [address] [place] [address] [phone] HSV (herpes simplex virus) anogenital infection (Primary [...] Description 01/12/2025 9:30 AM EDT Office Visit [facility] [address] [place] [address] [phone] Lauren Borrero FNP 230 [place], [place] [phone] 01/22/2025 9:00 AM EDT Clinical Support [facility] 230 [place] [address] Medina Lewis, RN 230 [place] [address] documented as of this encounter Visit Diagnoses Diagnosis HSV (herpes simplex virus) anogenital infection- Primary Herpes simplex without mention of complication documented in this encounter Care Teams Liquor Rectifier Relationship Specialty Start Date End Date Emilie Davis MD [address] [place] [address] PCP - General Family Medicine 05/13/18 Morales Echavarria FNP [address] [place] [address] 17387 Nurse Practitioner Family Medicine 04/16/23 Aida Orozco [address] [place] [address] Gastroenterology 05/26/24 Fred Castanon [address] [place] [address] 07/21/24 documented as of this encounter
--- OUTSIDE RECORDS SUMMARY | 2025-01-08 09:56 | XMS_ITS | Encounter Summary ---
Author Organization [employer] Address 75 [facility] 7t [place] [address] Care Team Providers Care Integrated Marketing Intern Name Role Phone Emilie Davis MD Primary Care Provider +1- [phone] Morales Echavarria COATING AND BAKING OPERATOR Unavailable Unavailable August Unavailable Fred Castanon Unavailable Reason for Visit * Reason Onset Date Comments Hospital Follow-up 01/04/2025 Encounter Details Date Type Department Care Team (Late st Contact Info) Description 01/04/2025 Telephone [facility] 230 [place] [address] Emilie Davis MD 230 [place], [place] [phone] Hospital Follow-up Social History Tobacco Use Types Packs/Day Years [...] 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 Hospital: [facility] Date of admission: 12/29 Discharge date: 12/31 Diagnosed: Gastritis and inflammation of the pancreas *Send message to [place] Clinical Care Coordinators documented in this encounter Plan of Treatment Upcoming Encounters Date Type Department Care Team (Late st Contact Info) Description 01/12/2025 9:30 AM EDT Office Visit [facility] [address] [place] [address] Lauren Borrero FNP 230 [place] [address] 01/22/2025 9:00 AM EDT Clinical Support [facility] 230 [place] [address] Medina Lewis, RN 230 [place] [address] documented as of this encounter Visit Diagnoses Not on filedocumented in this encounter Additional Health Concerns Assessment Noted Time PHQ-9 Depression Total Score: 3 04/30/20 23 9:17 AM EST documented as of this encounter Care Teams Integrated Marketing Intern Relationship Specialty Start Date End Date Emilie Davis MD [address] [place] [address] PCP - General Family Medicine 05/13/18 Morales Echavarria FNP [address] [place] [address] 97193 Nurse Practitioner Family Medicine 04/16/23 Aida Orozco [address] [place] [address] Gastroenterology 05/26/24 Fred Castanon [address] [place] [address] 07/21/24 documented as of this encounter
--- OUTSIDE RECORDS SUMMARY | 2025-01-08 09:56 | XMS_ITS | Encounter Summary ---
Author Organization [employer] Address [address] [facility] [address] 7t [place] [address] Care Team Providers Care Cigarette Filter Inspector Name Role Phone Emilie Davis MD Primary Care Provider +1- [phone] Morales Echavarria SALES FLOOR TEAM LEADER Unavailable Unavailable August Unavailable Fred Castanon Unavailable Reason for Visit * Reason Onset Date Comments Appointment Request 11/26/2024 Encounter Details Date Type Department Care Team (Late st Contact Info) Description 11/26/2024 Telephone [facility] 230 [place] [address] Emilie Davis MD 230 [place] [address] Appointment Request Social History Tobacco Use Types Packs/Day Years [...] 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 on file Not on file documented as of this encounter Miscellaneous Notes * Telephone Encounter - Ernie Curry - 11/26/2024 9:25 AM EDT Tc from pt requesting to reschedule todays apt 11/26 Contact pt at [phone] (belarusian) documented in this encounter Plan of Treatment Upcoming Encounters Date Type Department Care Team (Late st Contact Info) Description 01/12/2025 9:30 AM EDT Office Visit [facility] [address] [place] [address] Lauren Borrero FNP 230 [place] [address] 01/22/2025 9:00 AM EDT Clinical Support [facility] 230 [place] [address] Medina Lewis, RN 230 [place] [address] documented as of this encounter Visit Diagnoses Not on filedocumented in this encounter Additional Health Concerns Assessment Noted Time PHQ-9 Depression Total Score: 3 04/30/20 23 9:17 AM EST documented as of this encounter Care Teams Cigarette Filter Inspector Relationship Specialty Start Date End Date Emilie Davis MD [address] [place] [address] PCP - General Family Medicine 05/13/18 Morales Echavarria FNP [address] [place] [address] 8[address]10 Nurse Practitioner Family Medicine 04/16/23 Aida Orozco [address] [place] [address] Gastroenterology 05/26/24 Fred Castanon [address] [place] [address] 07/21/24 documented as of this encounter
--- OUTSIDE RECORDS SUMMARY | 2025-01-08 09:56 | XMS_ITS | Clinical Summary ---
Author Organization [facility] Address [address] [address] Phone Care Team Providers Care Senior Accounting Specialist Name Role Phone Emilie Davis MD Primary Care Provi baldomero Allergies Active Allergy Reactions Criticality Noted Date Comments Penicillins Anaphylaxis High 10/03/2018 Sumatriptan 10/28/2018 Medications aspirin 81 MG EC tablet Take 81 mg by mouth daily. 5 07/10/19 19 Active atorvastatin (LIPITOR) 80 MG tablet Take 80 mg by mouth nightly at bedtime. at bedtime. 5 07/10/19 19 Active busPIRone (BUSPAR) 5 MG tablet TAKE 2 TABLETS BY MOUTH THREE TIMES DAILY 3 07/10/19 19 Active enalapril (VASOTEC) 10 MG tablet Take 10 mg by mouth daily. 5 07/10/19 19 Active omeprazole (PRILOSEC) 20 MG capsule Take 20 mg by mouth. 4 07/10/19 19 Active simethicone (MYLICON) 125 MG chewable tablet TAKE 1 TABLET AFTER MEALS AND AT BEDTIME NEEDED FOUR TIMES A DAY 6 07/29/19 19 Active testosterone cypionate (DEPO-TESTOTER ONE) 200 mg/mL IM injection INJECT 0.5 ML INTRAMUSCULARLY EVERY 2 WEEKS 3 08/14/19 19 Active zolpidem (AMBIEN) 10 mg tablet Take 10 mg by mouth nightly at bedtime as needed for sleep. Active oxyCODONE-acet aminophen (PERCOCET) 5-325 mg per tablet Take 1 tablet by mouth every 4 (four) hours as needed for pain (specific location in comments). Partial fill ok. Dx: post op pain 16 tablet 10/30/19 19 Active Active Problems Problem Noted Date Diagnosed Date Gender 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 10/03/2018 Family History Medical History Relation Comments Diabetes Father Heart disease Father Heart disease Mother Relation Status Comments Father Mother Social History Tobacco Use Types Packs/Day Years Used Date Smoking Tobacco: Former Cigarettes 1 2017 Smokeless Tobacco: Current Alcohol Use Standard Drinks/Week Comments Not Currently 0 (1 standard drink = 0.6 oz pur e alcohol) Education Answer Date Recorded Are you interested in more education? Not on ryan e 09/07/2022 Are you concerned about learning? Not on file 09/07/2022 No 09/07/2022 No 09/07/2022 Digital Access Answer Date Recorded No 10/06/2022 No 10/06/2022 No 10/06/2022 Reliable internet access at home? Not on file 10/06/2022 Device with a working camera? Not on file Comments No Sex and Gender Information Value Date Recorded Sex Assigned at Female 08/14/2018 9:54 AM EDT Legal Sex Female 9:17 AM EST Gender Identity Transgender Male 08/14/2018 9:55 AM EDT Sexual Orientation Not on file Last Filed Vital Signs Vital Sign Reading Time Taken Comments Blood Pressure 142/79 10/28/2018 4:15 PM EDT Pulse 58 10/28/2018 4:15 PM EDT Temperature 36.4 C (97.5 F) 10/28/2018 2:45 PM EDT Respiratory Rate 16 10/28/2018 4:15 PM EDT Oxygen Saturation 99% 10/28/2018 4:15 PM EDT Inhaled Oxygen Concentration - - Weight 43.5 kg (96 lb) 08/25/2018 9:37 AM EDT Height 162.6 cm (5' 4 ) 08/25/2018 9:37 AM EDT Body Mass Index 16.48 08/25/2018 9:37 AM EDT Plan of Treatment Health Maintenance Due Date Last Done Comments CREATININE LEVEL 1969 LIPID PANEL 1969 POTASSIUM LEVEL 1969 DEPRESSION SCREENING 1981 SMOKING Hx and SMOKELESS TOB ACCO SCREENING 1982 HEPATITIS C SCREENING 1987 HIV ONE-TIME SCREENING (18-6 5 YEARS) 1987 PAP SMEAR 1990 MAMMOGRAM 2009 COLOGUARD 2014 COLONOSCOPY 2014 COLORECTAL CANCER SCREENING 2014 FIT TEST 2014 FOBT 2014 SIGMOIDOSCOPY 2014 VIRTUAL COLONOSCOPY 2014 PNEUMOCOCCAL VACCINES (50+ y ears) (2 of 2 - PCV) 2019 09/17/2017 ZOSTER VACCINES (1 of 2) 2019 COVID-19 VACCINE (2 - 2023-2 5 season) 2024 09/14/2020 Adult Td,Tdap Booster 06/18/2029 06/18/2019 HEPATITIS A VACCINES Aged Out No long er eligible based on patient's age to complete this topic HIB VACCINES Aged Out No longer eligi ble based on patient's age to complete this topic MENINGOCOCCAL VACCINES (ACWY) Aged Out No longer eligible based on patient's age to complete this topic MENINGOCOCCAL VACCINES (B) Aged Out N o longer eligible based on patient's age to complete this topic Medical Devices Not on file Insurance C3 ACO C3 ACO C3 ACO C3 ACO C3 ACO C3 ACO C[address] [place] [address] [place] [address] C3 ACO [facility] C3 ACO Rani [address] [address] [employer] Advance Directives For more information, please contact: [phone] (9AM - 5PM [facility], Saturday-Saturday) * Full Code (Presumed) (Latest Code Status on File) Date Activated Date Inactivated Comments 10/28/2018 9:51 AM 10/28/2018 7:25 PM Care Teams Senior Accounting Specialist Relationship Specialty Start Date End Date Ryan, Emilie Way MD [address] [place] [address] PCP - General Family Medicine 06/03/18 Additional Source Comments The information contained in this document represents components of the legal health record. It is not the complete legal health record.[facility]
--- OUTSIDE RECORDS SUMMARY | 2025-01-08 09:56 | XMS_ITS | Encounter Summary ---
Author Organization [facility] Address [address] [place] [address] Phone Care Team Providers Care System Archive Analyst Name Role Phone Emilie Davis MD Primary Care Provi baldomero Encounter Details Date Type Department Care Team (Late st Contact Info) Description 10/28/2018 Procedure Pass [place] Admitting Dept - Virtual Department [address] [place] [address] Social History Tobacco Use Types Packs/Day Years [...] on filedocumented in this encounter Care Teams System Archive Analyst Relationship Specialty Start Date End Date Emilie Davis MD [address] [place] [address] PCP - General Family Medicine 06/03/18 documented as of this encounter Additional Source Comments The information contained in this document represents components of the legal health record. It is not the complete legal health record.[facility]
--- OUTSIDE RECORDS SUMMARY | 2025-01-08 09:56 | XMS_ITS | Encounter Summary ---
Author Organization [employer] Address 75 [facility] 7t [place] [address] Care Team Providers Care Fringing Machine Operator Name Role Phone Emilie Davis MD Primary Care Provider +1- [phone] Morales Echavarria Unavailable Unavailable August Unavailable Fred Castanon Unavailable Reason for Visit * Reason Comments Med Refill Encounter Details Date Type Department Care Team (Late st Contact Info) Description 01/01/2023 Refill [facility] 230 [place] [address] Emilie Davis MD 230 [place] [address] Social History Tobacco Use Types Packs/Day Years [...] 8:54 AM EDT T/C to patient via tableau developer regarding x-ray result. No answer, message left [...] Description 01/12/2025 9:30 AM EDT Office Visit [facility] [address] [place] [address] Lauren Borrero FNP [address] [place] [address] 01/22/2025 9:00 AM EDT Clinical Support [facility] [address] [place] [address] Medina Lewis, RONALD [address] [place] [address] documented as of this encounter Visit Diagnoses Not on filedocumented in this encounter Additional Health Concerns Assessment Noted Time PHQ-9 Depression Total Score: 19 023 9:24 AM EDT documented as of this encounter Care Teams Fringing Machine Operator Relationship Specialty Start Date End Date Emilie Davis MD [address] [place] [address] PCP - General Family Medicine 05/13/18 Morales Echavarria FNP [address] [place] [address]61 Nurse Practitioner Family Medicine 04/16/23August [address] [place] [address] 3[address] [place] [address] Gastroenterology 05/26/24 Fred Castanon [address]rd [place] [address] 07/21/24 documented as of this encounter
--- OUTSIDE RECORDS SUMMARY | 2025-01-08 09:56 | XMS_ITS | Encounter Summary ---
Author Organization [facility] Address 75 [facility] 7t [place] [address] Care Team Providers Care Capacity Manager Name Role Phone Emilie Davis MD Primary Care Provider +1- [phone] Morales Echavarria Unavailable Unavailable August Unavailable Fred Castanon Unavailable Encounter Details Date Type Department Care Team (Late st Contact Info) Description 11/28/2022 Abstract [facility] MEDICINE [address] [place] [address] Emilie Davis MD 230 [place] [address] Social History Tobacco Use Types Packs/Day Years [...] Description 01/12/2025 9:30 AM EDT Office Visit [facility] 230 [place] [address] Lauren Borrero FNP 230 [place] [address] 01/22/2025 9:00 AM EDT Clinical Support [facility]INE [address] [place] [address] Medina Lewis, RN 230 [place] [address] documented as of this encounter Visit Diagnoses Not on filedocumented in this encounter Additional Health Concerns Assessment Noted Time PHQ-9 Depression Total Score: 19 023 9:24 AM EDT documented as of this encounter Care Teams Capacity Manager Relationship Specialty Start Date End Date Emilie Davis MD [address] [place] [address] PCP - General Family Medicine 05/13/18 Morales Echavarria FNP [address] [place] [address] Nurse Practitioner Family Medicine 04/16/23August [address] [place] [address] 3rd [place] [address] Gastroenterology 05/26/24 Fred Castanon [address] [place] [address] 3[address] [place] [address] 07/21/24 documented as of this encounter
--- OUTSIDE RECORDS SUMMARY | 2025-01-08 09:56 | XMS_ITS | Encounter Summary ---
Author Organization [employer] [facility] Address 75 [facility] 7t [place] [address] Care Team Providers Care Recycle Worker Name Role Phone Emilie Davis MD Primary Care Provider +1- [phone] Morales Echavarria RESIDENTIAL INTERIOR DESIGNER Unavailable Unavailable August Unavailable Fred Castanon Unavailable Reason for Visit * Reason Onset Date Comments Referral 07/18/2022 Encounter Details Date Type Department Care Team (Late st Contact Info) Description 07/18/2022 Telephone [facility] 230 [place] [address] Emilie Davis MD 230 [place] [address] Referral Social History Tobacco Use Types Packs/Day [...] [facility]. Please contact pt [phone] documented in this encounter Plan of Treatment Upcoming Encounters Date Type Department Care Team (Late st Contact Info) Description 01/12/2025 9:30 AM EDT Office Visit [address] [address] Lauren Borrero FNP 230 [place] [address] 01/22/2025 9:00 AM EDT Clinical Support [address] [address] Medina Lewis, RN [address] [place] [address] documented as of this encounter Visit Diagnoses Not on filedocumented in this encounter Care Teams Recycle Worker Relationship Specialty Start Date End Date Emilie Davis MD [address] [place] [address] PCP - General Family Medicine 05/13/18 Morales Echavarria FNP [address] [place] [address] Nurse Practitioner Family Medicine 04/16/23August [address] [place] [address] 3rd [place] [address] Gastroenterology 05/26/24 Fred Castanon [address] [place] [address] 07/21/24 documented as of this encounter
--- OUTSIDE RECORDS SUMMARY | 2025-01-08 09:56 | XMS_ITS | Encounter Summary ---
Author Organization [employer] Address [address] [place] [address] Care Team Providers Care Flight/Transport Nurse Name Role Phone Emilie Davis MD Primary Care Provider [phone]- [phone] Morales Echavarria Unavailable Unavailable August Unavailable Fred Castanon Unavailable Reason for Visit * Reason Onset Date Comments Call Back Request 01/07/2025 Injectable PrEP Communication 01/07/2025 Encounter Details Date Type Department Care Team (Late st Contact Info) Description 01/07/2025 Telephone [facility] [address] [place] [address] Emilie Davis MD [address] [place], [place] [phone] Call Back Request; Injectable PrEP Communication Social History Tobacco Use Types Packs/Day Years [...] the past 12 months, has t he [employer], gas, oil or water company threatened to [...] 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 Apretude scheduled to be delivered 01/18/25. Pt is scheduled for injection 01/22/25. * Telephone Encounter - Ernie Curry - 01/07/2025 3:02 PM EDT Tc from Ellyn at [facility] requesting a call back to discuss delivery of Apretude toophysician office. Contact Ellyn at [phone] documented in this encounter Plan of Treatment Upcoming Encounters Date Type Department Care Team (Late st Contact Info) Description 01/12/2025 9:30 AM EDT Office Visit [facility] [address] [place] [address] Lauren Borrero FNP [address] [place] [address] 01/22/2025 9:00 AM EDT Clinical Support [facility] [address] [place] [address] Medina Lewis, RONALD [address] [place] [address] documented as of this encounter Visit Diagnoses Not on filedocumented in this encounter Additional Health Concerns Assessment Noted Time PHQ-9 Depression Total Score: 3 04/30/20 9:17 AM EST documented as of this encounter Care Teams Flight/Transport Nurse Relationship Specialty Start Date End Date Emilie Davis MD [address] [place] [address] PCP - General Family Medicine 05/13/18 Morales Echavarria FNP [address] [place] [address] Nurse Practitioner Family Medicine 04/16/23August [address] [place] [address] Gastroenterology 05/26/24 Fred Castanon [address] [place] [address] 07/21/24 documented as of this encounter
--- OUTSIDE RECORDS SUMMARY | 2025-01-08 09:56 | XMS_ITS | Encounter Summary ---
Author Organization [facility] [facility] Address [address] [facility] [address] [place] [address] Care Team Providers Care Duplex Trimmer Name Role Phone Emilie Davis MD Primary Care Provider +1- [phone] Morales Echavarria [employer] ASS[employer] Unavailable Unavailable August Unavailable Fred Castanon Unavailable Reason for Visit * Reason Comments Transition Of Care (Tcm) HDF unscheduled Encounter Details Date Type Department Care Team (Late st Contact Info) Description 01/04/2025 Patient Outreach [facility] [address] [place] [address] Emilie Davis MD [address] [place] [address] Transition Of Care (Tcm) (HDF unscheduled) Social History Tobacco Use Types Packs/Day Years [...] the past 12 months, has t he [employer], gas, oil or water Responsys threatened to shut off services in your [...] 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 Not on file Not on file documented as of this encounter Miscellaneous Notes * Significant Event - Luz Elena Cordova - 01/04/2025 9:48 AM EDT 01/04/25 0947 Hospital Discharges and Admission for [facility] Type of Visit Hospital Admission Date of Admission/Visit 12/29/24 Date of Discharge 12/31/24 [facility] Diagnosis Gastritis Disposition Discharged Home Follow-Up Actions Follow-Up Needed Provider appointment Follow-Up Outcome No Answer/No VM Initial Contact Date 01/04/25 RASHAWN Laguna placed outbound call to patient after internal message was sent patient called for an HDFfollowing an inpatient visit at [facility]. RASHAWN placing call to offer patient with an HDF appointment with provider. No answer at this time. Patient's name and were not confirmed. RASHAWN was unable to leave a voicemail at this time. Will place an additional outreach call within 2-5 business days. [facility] discharge summary has been scanned into patient chart. documented in this encounter Plan of Treatment Upcoming Encounters Date Type Department Care Team (Late st Contact Info) Description 01/12/2025 9:30 AM EDT Office Visit [facility] [address] [place] [address] Lauren Borrero FNP [address] [place] [address] 01/22/2025 9:00 AM EDT Clinical Support [facility] [address] [place] [address] Medina Lewis, RONALD [address] [place] [address] documented as of this encounter Visit Diagnoses Not on filedocumented in this encounter Additional Health Concerns Assessment Noted Time PHQ-9 Depression Total Score: 3 04/30/20 23 9:17 AM EST documented as of this encounter Care Teams Duplex Trimmer Relationship Specialty Start Date End Date Emilie Davis MD [address] [place] [phone] PCP - General Family Medicine 05/13/18 Morales Echavarria FNP [address] [place] [address] Nurse Practitioner Family Medicine 04/16/23August [address] [place] [address] Gastroenterology 05/26/24 Fred Castanon [address] [place] [address] 07/21/24 documented as of this encounter
--- OUTSIDE RECORDS SUMMARY | 2025-01-08 09:56 | XMS_ITS | Encounter Summary ---
Author Organization [employer] Address [address] [facility] 7t [place] [address] Care Team Providers Care Substation Technician Name Role Phone Emilie Davis MD Primary Care Provider +1- [phone] Morales Echavarria Unavailable Unavailable August Unavailable Fred Castanon Unavailable Reason for Visit * Reason Comments Med Refill Encounter Details Date Type Department Care Team (Late st Contact Info) Description 01/17/[address] 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) Social [...] Description 01/12/2025 9:30 AM EDT Office Visit [address] [address] Lauren Borrero FNP [address] [place] [address] 01/22/2025 9:00 AM EDT Clinical Support [address] [address] Medina Lewis, RONALD [address] [place] [address] documented as of this encounter Visit Diagnoses Diagnosis Gender 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- Primary documented in this encounter Additional Health Concerns Assessment Noted Time PHQ-9 Depression Total Score: 3 04/30/20 23 9:17 AM EST documented as of this encounter Care Teams Substation Technician Relationship Specialty Start Date End Date Emilie Davis MD [address] [place] [address] PCP - General Family Medicine 05/13/18 Morales Echavarria FNP [address] [place] [address] Nurse Practitioner Family Medicine 04/16/23 Pam Aida [address] [place] [address] 3rd [place] [address] Gastroenterology 05/26/24 Fred Castanon [address] 3rd Floor BRITTANI Ramirez [phone] 07/21/24 documented as of this encounter
--- OUTSIDE RECORDS SUMMARY | 2025-01-08 09:56 | XMS_ITS | Clinical Summary ---
Author Organization [employer] Address [address] [place] [address] Care Team Providers Care Pediatric Physician Assistant Name Role Phone Emilie Davis MD Primary Care Provider [phone] Morales Echavarria Unavailable Unavailable August Unavailable Fred Castanon Unavailable Allergies Active Allergy Reactions Criticality Noted Date Comments Penicillins Anaphylaxis,Rash High 05/16/2017 Sumatriptan 10/28/2018 Medications * This document contains information received from the source organization and may not represent a complete record from that organization. Needle, Disp, (BD Disp [place]) 25G X 5/8 miscIndication s:Gender 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 USE TO INJECT Testosterone INTRAMUSCULARLY EVERY 2 WEEKS DIRECTED 25 each 3 Active Needle, Disp, (BD Hypodermic Needle) 16G X 1 miscIndication s:Gender 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 USE TO DRAW UP testosterone EVERY 2 WEEKS 24 each 1 Active loratadine (Claritin) 10 MG tabletIndicati ons:Seasonal allergies Take 1 tablet (10 mg) by mouth if needed each day for allergies. 30 tablet 1 Active mirtazapine (Remeron) 15 MG tabletIndicati ons:Seasonal allergies Take 1 tablet (15 mg) by mouth at bedtime. 90 tablet 1 Active BD Plastipak Syringe 3 ML miscIndication s:Gender 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 USE FOR TESTOSTERONE 12 each 3 Active omeprazole OTC (PriLOSEC OTC) 20 MG [...] 2 WEEKS 2 mL 2 025 Active tamsulosin (Flomax) 0.4 MG 24 hr capsuleIndicat ions:Acute left flank pain Take 1 capsule (0.4 mg) by mouth Once per day. 30 capsule 025 Active cholecalcifero l (Vitamin D-3) 1.25 MG (96573 UT) capsule Take 1 capsule by mouth 1 (one) time per week. 025 Active sucralfate (Carafate) 1 GM/10ML suspension Take 20 mL by mouth Once per day. At noon 025 Active magnesium oxide (Mag-Ox) 400 (240 Mg) MG tablet Take 1 tablet by mouth at bedtime. Hold for loose stools 025 Active linaCLOtide (Linzess) 145 MCG capsule Take 145 mcg by mouth Once per day. 025 Active Needle, Disp, (B-D HYPODERMIC NEEDLE 22GX1 ) 22G X 1 miscIndication s:Gender 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 Use with testosterone 12 each 3 024 2024 Discontinued(D uplicate order (will not trigger notification to Pharmacy)) Cabotegravir ER (Apretude) 600 MG/3ML Suspension Extended ReleaseIndicat ions:Encounter for HIV pre-exposure prophylaxis Inject monthly IM Ventrogluteal 3 mL 1 024 2024 Discontinued(D uplicate order (will not trigger notification to Pharmacy)) Active Problems Problem Noted Date Diagnosed Date Idiopathic acute pancreatitis without infection or necrosis 12/31/2024 Overview (12/31/2024): -dx at [facility] 12/2024 Patient admitted to general medical floor and kept NPO with IV narcotics. Seen in consultation by GI who recommended advance to low-fat diet for the next 4 weeks. CRISTEL and IgG4 were ordered. MRI of pancreas pancreas protocol we will be done as an outpatient. Acute non intractable tension-type headache 08/13 Overview (10/14/2024): -head CT in ER 09/07/24 IMPRESSION: Low position of the cerebellar tonsils/cerebellar tonsil ectopia -seen by flor Rodriguez, TRINIDAD 09/24/24 As patient has new onset left-sided side locked headache with autonomic features suggestive of cluster headache phenotype in setting of low cerebellar tonsil seen on recent head CT, it is imperative to assess for secondary mimics/etiologies such as metabolic/hormonal dysfunction, posterior fossa processes, vascular processes, inflammatory process, sleep dysfunction, thus patient is advised to undergo: Lab workup XR C-spine with flexion and extension Brain MRI with and without contrast MR venogram with and without contrast, including MR angiogram without contrast HST to assess for sleep apnea -CT in Er 10/13/25 IMPRESSION: 1. No acute intracranial findings. 2. Mild white-matter small-vessel disease. Family history of breast cancer 05/20/2024 Overview (05/20/2024): Strong Fhx of breast cancer, sister, mom and maternal grandmother. -referred to Genetics for testing 05/20/24 Assessment & Plan (05/20/2024 4:15 PM EST): Strong Fhx of breast cancer, sister, mom and maternal grandmother. -referred to Genetics for testing 05/20/24 Chronic left hip pain 05/20/2024 Overview (06/05/2024): Chronic left hip pain with acute flare. -ordered XR 05/20/24 XR/XR hip LT min 2V IMPRESSION: Unremarkable left hip exam Assessment & Plan (05/20/2024 4:27 PM EST): Chronic left hip pain with acute flare. -ordered XR 05/20/24 Coronary artery disease invo lving ely shoshone heart without angina pectoris 05/20/2024 Overview (10/15/2024): Hx NSTE NC 09/2017 -continue oscar -Stress test without evidence [...] ordered, follow up with cardiology 4 months -NM/NM cardiolite stress test 10/14/24Impression: Myocardial perfusion imaging study shows normal myocardial perfusion.Gated LVEF is 58% during rest; visually normal during stress. Transient ischemic dilatation not present. EKG component of the test reported separately. Acquired syphilis 03/23/2024 Overview (03/23/2024): Lab Results Component Value Date SYPHILISSCRE Reactive (A) 03/18/2024 TREPPALAB Reactive (A) 03/18/2024 RPRQUANT Non-Reactive 03/18/2024 -will call [facility] regarding need for testing 03/23/24 [...] care facilitated by Alessio. -dental home is [facility] -health care proxy filed 03/16/24 Assessment & Plan (03/17/2024 6:12 AM EST): -next physical exam due after 03/16/2025 -eye care facilitated by Alessio. -dental home is [facility] -health care proxy filed 03/16/24 Assessment & Plan (03/22/2023 9:17 AM EST): -next physical exam due after 12/07/2023. -eye care facilitated by Alessio. -dental home is outside of [facility] Assessment & Plan (12/06/2022 10:19 AM EDT): -next physical exam dueafter 12/07/2023. -eye care facilitated by Alessio. -dental home is outside of [facility] Hx of hepatitis C 11/26/2022 [...] of November. -He agrees with the plan. Acute bilateral [...] rays suggests osteoarthritis. Seen by rheumatology in [place]. Ibuprofen and NSAIDs cause gastritis. Minimal relief with acetaminophen. He was referred back to rheumatology in [place] 08/23/2020 but provider left the area. started on Tramadol. Take 3 times per week. He is not taking at this time. Assessment & Plan (03/17/2024 6:08 AM EST): X rays suggests osteoarthritis. Seen by rheumatology in [place]. Ibuprofen and NSAIDs cause gastritis. Minimal relief with acetaminophen. He was referred back to rheumatology in [place] 08/23/2020 but provider left the area. started on Tramadol. Take 3 times per week. He is not taking at this time. Assessment & Plan (03/22/2023 9:15 AM EST): X rays suggests osteoarthritis. Seen by rheumatology in [place]. Ibuprofen and NSAIDs cause gastritis. Minimal relief with acetaminophen. He was referred back to rheumatology in [place] 08/23/2020 but provider left the area. started on Tramadol. Take 3 times per week. Will need COT in the future. Assessment & Plan (12/06/2022 8:54 AM EDT): X rays suggests osteoarthritis. Seen by rheumatology in [place]. Ibuprofen and NSAIDs cause gastritis. Minimal relief with acetaminophen. He was referred back to rheumatology in [place] 08/23/2020 but provider left the area. started on Tramadol. Take 3 times per week. Will need COT in the future. Assessment & Plan (10/11/2022 9:58 AM EDT): X rays suggests osteoarthritis. Seen by rheumatology in [place]. Ibuprofen and NSAIDs cause gastritis. Minimal relief with acetaminophen. He was referred back to rheumatology in [place] 08/23/2020 but provider left the area. started [...] Now with palpitations. Will refer to his furnace roaster for bradycardia. Assessment & Plan (03/22/2023 9:16 AM EST): Sinus bradycardia and asymptomatic. Pt states he always has slow heart rate Pt repots heart rate in 40s recorded with home BP monitor with symptoms of dizziness recorded at home. Now with palpitations. Will refer to his furnace roaster for bradycardia. Assessment & Plan (12/06/2022 8:54 AM EDT): Sinus bradycardia and asymptomatic. Pt states he always has slow heart rate Pt repots heart rate in 40s recorded with home BP monitor with symptoms of dizziness recorded at home. Now with palpitations. Will refer to his furnace roaster for bradycardia. Assessment & Plan (10/11/2022 9:58 AM EDT): Sinus bradycardia and asymptomatic. Pt states he always has slow heart rate Pt repots heart rate in 40s recorded with home BP monitor with symptoms of dizziness recorded at home. Now with palpitations. Will refer to his furnace roaster for bradycardia. Generalized abdominal pain 06/25/2021 Overview (12/05/2024): Pt reports weight loss, loss of appetite, [...] for GI. Insurance no longer accepted at [facility]. -EGD scheduled for December 2021. -10/19/24 IMPRESSION: Normal 4-hour solid food gastric emptying study. -note from August10/21/24 reveiwed NM gastric emptying study [place] barium swallow H pylori Ag Stool ordered -note from August12/04/24 Kaushik almeida Assessment & Plan (03/17/2024 6:08 AM EST): [...] for GI. Insurance no longer accepted at [facility]. -EGD scheduled for December 2021. Assessment [...] for GI. Insurance no longer accepted at [facility]. -EGD scheduled for December 2021. Assessment [...] for GI. Insurance no longer accepted at [facility]. -EGD scheduled for December 2021. Assessment & Plan (10/11/2022 9:58 AM EDT): Pt reports weight loss, loss of appetite, abdominal discomfort and gas. He is on omeprazole 20mg daily. Hx colonoscopy 2018 with diverticulosis, no polyps Hx EGD 2018 with mild reflux gastritis and GE stricture, dilated Pt feels it may be related to anxiety and it can localize to LLQ c/w IBS H.pylori negative 05/2021 He requests new referral for GI. Insurance no longer accepted at [facility]. -EGD scheduled for December 2021. History of non-ST elevation myocardial infarctio n (NSTEMI) 06/25/2021 Overview (10/15/2024): Hx NSTE NC 09/2017. See CAD for plan. Assessment & Plan (05/20/2024 4:29 PM EST): Hx NSTE NC 09/2017 -continue oscar -Stress test without evidence of ischemia 04/08/18 -he held statin and ASA due to GI upset -trial of restarting statin 01/[address] on 05/08/24 showed Coronary artery atherosclerosis. Pt wants to get reestablished with cardiology. -referral sent 05/20/24 Assessment & Plan (03/22/2023 9:17 AM EST): Hx NSTE NC 09/2017 -continue oscar -Stress test without evidence of ischemia 04/08/18 -he held statin and ASA due to GI upset -trial of restarting statin 01/2019 Assessment & Plan (12/06/2022 8:55 AM EDT): Hx NSTE NC 09/2017 -continue oscar -Stress test without evidence of ischemia 04/08/18 -he held statin and ASA due to GI upset -trial of restarting statin 01/2019 Assessment & Plan (10/11/2022 9:57 AM EDT): Hx NSTE NC 09/2017 -continue oscar -Stress test without evidence of ischemia 04/08/18 -he held statin and ASA due to GI upset -trial of restarting statin 01/2019 Seasonal allergies 06/25/2021 Gender 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 10/03/2018 Overview (03/26/2024): Pt identifies as male and is changed his name in [place] October 2020. -He restarted testosterone 08/2020 -S/p chest reconstruction 10/2018 -Testosterone was 654 on 10/2022 Lab Results Component Value Date TESTTOTAL 1641 (A) 03/18/2024 HGB 16.2 (H) 03/18/2024 HGB 15.8 10/18/2022 HCT 47.3 (H) 03/18/2024 Goal testosterone levels 350-700ng/dl. Assessment & Plan (03/17/2024 6:12 AM EST): Pt identifies as male and is changing his name in [place] October 2020. He restarted testosterone 08/2020 S/p chest reconstruction 10/2018 Pt would like to switch small needle to subcutaneous instead. 25 gague needles sent 12/06/2022 Testosterone was 654 on 10/2022. Assessment & Plan (03/22/2023 9:16 AM EST): Pt identifies as male and is changing his name in [place] October 2020. He restarted testosterone 08/2020 S/p chest reconstruction 10/2018 Pt would like to switch small needle to subcutaneous instead. 25 gague needles sent 12/06/2022 Testosterone was 654 on 10/2022. Assessment & Plan (12/06/2022 11:18 AM EDT): Pt identifies as male and is changing his name in [place] October 2020. He restarted testosterone 08/2020 S/p chest reconstruction 10/2018 Pt would like to switch small needle to subcutaneous instead. 25 gague needles sent 12/06/2022 Testosterone was 654 on 10/2022. Assessment & Plan (10/11/2022 9:59 AM EDT): Pt identifies as male and is changing his name in [place] October 2020. He restarted testosterone 08/2020 S/p chest reconstruction 10/[address] scan, lung 10/04/2017 Overview (05/20/2024): -Ct scan in [facility] on 12/25/2017 showed multiple indeterminate [...] 11/15/23 and NO SHOW. Pt can call [phone] to schedule mariely. number given to call 03/16/24 -CT 05/08/24 No acute intrathoracic findings. Calcified granulomas present bilaterally. No suspicious pulmonary nodule identified. Air-fluid level present within the midthoracic esophagus can be associated with gastroesophageal reflux disease and esophageal dysmotility. Coronary artery atherosclerosis. Assessment & Plan (05/20/2024 4:05 PM EST): -Ct scan in [place] [facility] on 12/25/2017 showed multiple indeterminate nodules, [...] 11/15/23 and NO SHOW. Pt can call [phone] to schedule mariely. number given to call 03/16/24 -CT 05/08/24 No acute intrathoracic findings. Calcified granulomas present bilaterally. No suspicious pulmonary nodule identified. Air-fluid level present within the midthoracic esophagus can be associated with gastroesophageal reflux disease and esophageal dysmotility. Coronary artery atherosclerosis. Assessment & Plan (03/17/2024 6:13 AM EST): -Ct scan in [place] ER on 12/25/2017 showed multiple indeterminate nodules, [...] 11/15/23 and NO SHOW. Pt can call [phone] to schedule mariely. number given to call 03/16/24 Assessment & Plan (03/22/2023 9:16 AM EST): -Ct scan in [place] ER on 12/25/2017 showed multiple indeterminate nodules, largest was solid and measured 2mm. -Given that the Pt has a tobacco Hx and quit in 2018 we referrred to pulmonology that was likely distrupted by the pandemic. -Will ordered repeat CT of chest to follow the nodles. Assessment & Plan (12/06/2022 10:18 AM EDT): -Ct scan in [place] ER on 12/25/2017 showed multiple indeterminate nodules, largest was solid and measured 2mm. -Given that the Pt has a tobacco Hx and quit in 2017 we referrred to pulmonology that was likely distrupted by the pandemic. -Will ordered repeat CT of chest to follow the nodles. Resolved Problems Problem Noted Date Diagnosed Date Resolved Date Spasm of left trapezius muscle 05/20/2024 10/15/2024 Overview (05/20/2024): -referred to PT 05/20/24 Assessment & Plan (05/20/2024 4:27 PM EST): -referred to PT 05/20/24 Diarrhea 03/22/2023 05/07/2024 Overview (03/22/2023): Likely due [...] and frequency. Emotions were normalized and validated. Hiramarielleaparna identified dancing as coping mechanisms and protective [...] referred for OP services and referral to [facility] Psychopharmacology clinic. Provided Crisis contact [...] Encounters Date Type Department Care Team Description 01/07/[address] [phone] Emilie Davis MD Call Back Request; Injectable PrEP Communication 01/04/2025 Patient Outreach [address] [address] Emilie Davis MD Transition Of Care (Tcm) (HDF unscheduled) 01/04/[address] [address] Emilie Davis MD Nurse Triage 01/04/[address] [address] Emilie Davis MD Hospital Follow-up 12/29/2024 Orders Only GENERIC EXTERNAL DATA DEPARTMENT Provider, Generic External Data 11/26/2024 9:30 AM EDT Clinical Support [address] [address] Medina Lewis, RN On pre-exposure prophylaxis for HIV (Primary Dx) 11/26/2024 Orders Only [address] [address] Emilie Davis MD 11/26/2024 Travel 11/26/2024 Telephone [facility] [address] [facility] [place] [address] Emilie Davis MD Appointment Request 11/25/2024 Telephone [facility] [address] [facility] [place] [address] Emilie Davis MD February11/16/2024 Telephone [facility] MED[facility] [address] [facility] [place] [address] Medina Lewis RN 10/20/2024 Orders Only [facility] External Provider, [facility] Generalized abdominal pain (Primary Dx) 10/13/2024 Orders Only [facility] External Provider, [facility] History of non-ST elevation myocardial infarction (NSTEMI) (Primary Dx); Coronary artery disease involving ely shoshone coronary artery of ely shoshone heart without angina pectoris 10/12/2024 Orders Only [facility] External Provider, [facility] Acute non intractable tension-type headache (Primary Dx) from Last 3 Months Immunizations Immunization Administration [...] 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 Not on file Not on file Last Filed Vital Signs Vital Sign Reading Time Taken Comments Blood Pressure 103/75 10/02/2024 8:50 AM EDT Pulse 90 10/02/2024 8:50 AM EDT Temperature 36.6 C (97.9 F) 10/02/2024 8:50 AM EDT Respiratory Rate 19 10/02/2024 8:50 AM EDT Oxygen Saturation 99% 08/20/2024 11:16 AM EDT Inhaled Oxygen Concentration - - Weight 52.3 kg (115 lb 6.4 oz) 10/02/2024 8:50 A M EDT Height 161.3 cm (5' 3.5 ) 10/02/2024 8:50 AM EDT Body Mass Index 20.12 10/02/2024 8:50 AM EDT Plan of Treatment Upcoming Encounters Date Type Department Care Team (Late st Contact Info) Description 01/12/2025 9:30 AM EDT Office Visit [facility] MEDICINE [address] [place] [address] Lauren Borrero FNP [address] [place] [address] 01/22/2025 9:00 AM EDT Clinical Support [facility] MEDICINE [address] [place] [address] Medina Lewis, RN [address] [place] [address] Health Maintenance Due Date Last Done Comments CT Colonography 1969 FIT DNA/Cologuard 1969 FIT 1969 FOBT 1969 Sigmoidoscopy 1969 Disability Screening 1969 Pneumococcal Vaccine: 50+ Years (2 of 2 - PCV) 09/17/2018 09/17/2017 Colonoscopy 01/30/2023 01/30/2018 Colorectal Cancer Screening 01/30/2023 Zoster Vaccines (1 of 2) 02/01/2023 Influenza Vaccine (#1) 2025 06/18/2019, 2017 COVID-19 Vaccine ( season) 2025 06/05/2021, 10/11/2020, 09/14/2020 Postponed from 01/12/2024 (Patient Refused) SDOH Screening 03/16/2025 03/16/2024 Alcohol/Substance Use Screening 05/20/2025 05/20/2024 Depression Screening 05/20/2025 05/20/2024, 04/30/20 23 Tobacco Screening 10/02/2025 10/02/2024 HPV/Cotest 03/22/2028 03/22/2023, 11/11, 12/06/2017 Pap Smear 03/22/2028 03/22/2023, 12/06/2017 DTaP/Tdap/Td Vaccines (2 - Td or Tdap) 06/18/2029 06/18/2019 Lipid Panel 07/24/2029 07/24/2024, 11/0 10/2023, 10/18/2022, Additional history exists RSV Patients and Patients Aged 60 years or older (1 - 1-dose 75+ series) 02/12/2044 Hepatitis A Vaccines Completed 03/16/2024, 12/08/19 Hepatitis B Vaccines Completed 03/16/2024, 01/07/2023, 12/07/2022 HIV Screening Completed 11/26/2024, 09/10, 07/24/2024, Additional history exists HIB Vaccines Aged Out [...] Procedure Name Priority Date/Time Associated Diagnosis Comments DRUG MONITOR, PANEL 1, SCREEN, URINE Routine 12/29/2024 1:09 PM EDT URINALYSIS WITH REFLEX MICROSCOPIC Routine 12/29/2024 1:[address] ABDOMEN PELVIS W CONTRAST Routine 12/29/2024 12:55 PM EDT LIPASE Routine 12/29/2024 10:00 AM EDT BASIC METABOLIC PANEL Routine 12/29/2024 10:00 AM EDT HEPATIC FUNCTION PANEL Routine 10:00 AM EDT CBC WITH AUTO DIFFERENTIAL Routine 12/29/2024 10:00 AM EDT CONFIRMATORY SYPHILIS PROFILE Routine 11/26/2024 1:24 PM EDT HEPATITIS C VIRAL RNA, QUANTITATIVE, REAL-TIME PCR Routine 11/26/2024 1:24 PM EDT METHYLMALONIC ACID Routine 11/26/2024 1: 24 PM EDT HIV 1 RNA, QUANTITATIVE REAL TIME PCR Routine 11/26/2024 1:24 PM EDT RPR (MONITOR) W/REFL TITER Routine 11/26/2024 1:24 PM EDT HEPATITIS C AB W/REFL TO HCV RNA, QN, PCR Routine 11/26/2024 1:24 PM EDT SYPHILIS SCREEN Routine 11/26/2024 1:24 PM EDT POCT RAPID HIV SCREENING Routine 11/26/2024 10:08 AM EDT On pre-exposure prophylaxis for HIV NM GASTRIC EMPTYING SOLID Routine 10/20/2024 8:15 AM EDT MR BRAIN W AND WO CONTRAST Routine 10/13/2024 4:52 PM EDT MR VENOGRAPHY HEAD WO/W CON Routine 10/13/2024 4:49 PM EDT STRESS TEST WITH MYOCARDIAL PERFUSION Routine 10/13/2024 10:01 AM EDT LIPID PANEL, STANDARD Routine 07/24/2024 1:36 PM EDT HPV MRNA E6/E7 REFLEX TO HPV 16, 18/45 Routine 03/22/2023 11:30 AM EST PAP SMEAR Routine 03/22/2023 11:30 AM EST HM COLONOSCOPY Routine 01/30/2018 from Last 3 Months or Most Recently Relevant to Health Maintenance Results * (ABNORMAL) Drug Monitoring, Panel 1, Screen, Urine (12/29/2024 1:09 PM EDT) Opiate Screen Urine Not Detected Not Detect [facility] Comment:Opiate cut-off is 30 0 ng/mL.Positive results are unconfirmed and should not be used fornon-medical purposes. Barbiturates, Urine Not Detected Not Detect [facility] Comment:Barbiturate cut-off is 200 ng/mL.Positive results are unconfirmed and should not be used fornon-medical purposes. Phencyclidine Screen Urine Not Detected Not Detect [facility] Comment:Phencyclidine cut-of f is 25 ng/mL.Positive results are unconfirmed and should not be used fornon-medical purposes. Amphetamine Screen Urine Not Detected Not Detect [facility] Comment:Amphetamine cut-off is 1000 ng/mL.Positive results are unconfirmed and should not be used fornon-medical purposes. Benzodiazepines Screen Urine Not Detected Not Detect [facility] Comment:Benzodiazepine cut-o ff is 200 ng/mL.Positive results are unconfirmed and should not be used fornon-medical purposes. Cocaine Screen Urine Not Detected Not Detect [facility] Comment:Cocaine cut-off is 3 00 ng/mL.Positive results are unconfirmed and should not be used fornon-medical purposes. Cannabinoid Screen Urine POSITIVE(A) Not Detect [facility] Comment:Cannabinoid cut-off is 50 ng/mL.Positive results are unconfirmed and should not be used fornon-medical purposes. Methadone Screen, Urine Not Detected Not Detect ng/mL [facility] Comment:Methadone cut-off is 300 ng/mL.Positive results are unconfirmed and should not be used fornon-medical purposes. FENTANYL URINE Not Detected Not Detect [facility] Comment:Fentanyl cut-off is 1 ng/mL.Positive results are unconfirmed and should not be used fornon-medical purposes. Oxycodone Urine Screen Not Detected Not Detect ng/mL [facility] Comment:Oxycodone cut-off is 100 ng/mL.Positive results are unconfirmed and should not be used fornon-medical purposes. Buprenorphine Screen Not Detected Not Detect ng/mL [facility] Comment:Buprenorphine cut-of f is 5 ng/mL.Positive results are unconfirmed and should not be used fornon-medical purposes. 12/29/2024 1:09 PM EDT 12/29/2024 1:16 PM EDT Generic External Data Provider LAB URINE ORDERAB LES Final Result Performing Organization Address City/[facility]/ZIP Co de Phone Number [facility] [address] [place] [address] [phone] * Urinalysis w/reflex microscopic (12/29/2024 1:09 PM EDT) Color Urine Yellow [facility] Appearance Urine Clear [facility] PH 8.0 5.0 - 9.0 [facility] Glucose Urine UA Negative Negative mg/dL [facility] Urine Blood Negative Negative [facility] Specific [place] - Urine 1.015 1.005 - 1.025 [facility] Urine Protein Negative Neg-Trace mg/dL [facility] Urine Ketones Negative Negative mg/dL [facility] Nitrite Urine Negative Negative [facility] Leukocyte Esterase Urine Negative Negative [facility] 12/29/2024 1:09 PM EDT 12/29/2024 1:16 PM EDT Narrative [facility] - 12/29/2024 1:22 PM EDT Urine, Clean Catch Generic External Data Provider LAB URINE ORDERAB LES Final Result Performing Organization Address [facility] Co de Phone Number [facility] [address] [place] [address] [phone] * CT Abdomen Pelvis w/ Contrast (12/29/2024 12:55 PM EDT) Anatomical Region Laterality Modality Body, Pelvis, Abdomen Computed T omography 12/29/2024 12:5 5 PM EDT Narrative 12/29/2024 1:42 PM EDT [place] [address] CT Scan Report Signed Patient: Harriet Valdez MR#: [id number] : 1970 Acct:[id number] Age/Sex: 54 / F ADM Date: 12/29/24 Loc: HO.ED Attending Dr: Ordering Physician: Cheryl Cobb DO Date of Service: 12/29/24 Procedure(s): CT abdomen pelvis w IV con Accession Number(s): [id number] cc: Emilie Davis MD; Cheryl Cobb DO Report Number: [id number]: Total DLP = 296.00 mGy-cm EXAMINATION: CT ABDOMEN PELVIS WITH IV CONTRAST HISTORY: abdominal pain COMPARISON: There is an is made with the prior examination dated 04/13/2023. TECHNIQUE: CT scan of the abdomen and pelvis was performed following administration of 85 mL Omnipaque 350 using standard departmental protocol. Coronal and sagittal reformatted images were generated and reviewed. Oral contrast material was not administered at the request of the referring physician. This CT exam was performed with one or more of the following dose reduction techniques: automated exposure control, adjustment of the mA and/or kV according to patient size, use of iterative reconstruction technique. DLP: 296 mGy-cm FINDINGS: LOWER CHEST: The visualized lung bases are clear. There is no pleural effusion. CARDIOVASCULATURE: The heart is normal in size. There is no pericardial effusion. LIVER: The liver is normal in size and contour. Tiny subcentimeter hypodensities are noted at the dome of the liver which are too small to accurately characterize. The hepatic and portal veins are patent. GALLBLADDER / BILE DUCTS: The gallbladder is surgically absent. There is no intra or extrahepatic biliary ductal dilatation. SPLEEN: The spleen is normal in size. No focal splenic lesion is identified. PANCREAS: The pancreas is unremarkable in appearance. ADRENAL GLANDS: Within normal limits. KIDNEYS/RETROPERITONEUM: No renal calculi are identified. There is no hydronephrosis. No renal masses are identified. LYMPH NODES: No abdominal or pelvic lymphadenopathy. VASCULATURE: The abdominal aorta is normal in caliber. MESENTERY/PERITONEUM: No free fluid. No masses. There is no free intraperitoneal gas. STOMACH: The stomach is collapsed, limiting evaluation. SMALL BOWEL: The small bowel is normal in caliber. COLON: There is a large amount of stool throughout the colon. There is diverticulosis of the descending and sigmoid colon, without evidence of diverticulitis. APPENDIX: Normal. URINARY BLADDER/PELVIC ORGANS: The urinary bladder is unremarkable. The patient is status post hysterectomy. BONES / SOFT TISSUES: No suspicious bony or soft tissue abnormalities. CT/CT abdomen pelvis w IV con IMPRESSION: Large amount of stool throughout the colon. Diverticulosis of the descending and sigmoid colon, without evidence of diverticulitis. Electronically signed by: Manish Deras MD 12/29/2024 01:40 PM EDT RP Dictated By: Manish Deras MD Signed By: <Electronically signed by Manish Deras MD in OV> 12/29/24 1340 DD/ 1255 TD/TT: 12/29/24 1329 Truck Caterer: Procedure Note Donotuseinterpreter, Image - 12/29/[address] [place] [address] [address] Scan Report Signed Patient: Harriet ValdezMR#: [id number] : 1970Acct:[id number] Age/Sex: 54 / FADM Date: 12/29/24 Loc: HO.ED Attending Dr: Ordering Physician: Cheryl Cobb DO Date of Service: 12/29/24 Procedure(s): CT abdomen pelvis w IV con Accession Number(s): [id number] cc: Emilie Davis MD; Cheryl Cobb DO Report Number: [id number]: Total DLP = 296.00 mGy-cm EXAMINATION: CT ABDOMEN PELVIS WITH IV CONTRAST HISTORY: abdominal pain COMPARISON: There is an is made with the prior examination dated 04/13/2023. TECHNIQUE: CT scan of the abdomen and pelvis was performed following administration of 85 mL Omnipaque 350 using standard departmental protocol. Coronal and sagittal reformatted images were generated and reviewed. Oral contrast material was not administered at the request of the referring physician. This CT exam was performed with one or more of the following dose reduction techniques: automated exposure control, adjustment of the mA and/or kV according to patient size, use of iterative reconstruction technique. DLP: 296 mGy-cm FINDINGS: LOWER CHEST: The visualized lung bases are clear. There is no pleural effusion. CARDIOVASCULATURE: The heart is normal in size. There is no pericardial effusion. LIVER: The liver is normal in size and contour. Tiny subcentimeter hypodensities are noted at the dome of the liver which are too small to accurately characterize. The hepatic and portal veins are patent. GALLBLADDER / BILE DUCTS: The gallbladder is surgically absent. There is no intra or extrahepatic biliary ductal dilatation. SPLEEN: The spleen is normal in size. No focal splenic lesion is identified. PANCREAS: The pancreas is unremarkable in appearance. ADRENAL GLANDS: Within normal limits. KIDNEYS/RETROPERITONEUM: No renal calculi are identified. There is no hydronephrosis. No renal masses are identified. LYMPH NODES: No abdominal or pelvic lymphadenopathy. VASCULATURE: The abdominal aorta is normal in caliber. MESENTERY/PERITONEUM: No free fluid. No masses. There is no free intraperitoneal gas. STOMACH: The stomach is collapsed, limiting evaluation. SMALL BOWEL: The small bowel is normal in caliber. COLON: There is a large amount of stool throughout the colon. There is diverticulosis of the descending and sigmoid colon, without evidence of diverticulitis. APPENDIX: Normal. URINARY BLADDER/PELVIC ORGANS: The urinary bladder is unremarkable. The patient is status post hysterectomy. BONES / SOFT TISSUES: No suspicious bony or soft tissue abnormalities. CT/CT abdomen pelvis w IV con IMPRESSION: Large amount of stool throughout the colon. Diverticulosis of the descending and sigmoid colon, without evidence of diverticulitis. Electronically signed by: Manish Deras MD 12/29/2024 01:40 PM EDT Dictated By: Manish Deras MD Signed By: <Electronically signed by Manish Deras MD in OV> 12/29/24 1340 DD/ 1255 TD/TT: 12/29/24 1329 Truck Caterer: [facility] External Provider IMG CT PROCEDURES Final Result * (ABNORMAL) CBC auto differential (12/29/2024 10:00 AM EDT) White Blood Count 10.1 4.8 - 10.8 X10*3/uL [facility] Red Blood Count 4.83 4.20 - 5.50 X10*6/uL [facility] Hemoglobin 14.4 12.0 - 16.0 g/dl [facility] Hematocrit 43.0 37.0 - 47.0 % [facility] Mean Corpuscular Volume 89.0 80.0 - 98.0 fL [facility] Mean Corpuscular Hemoglobin 29.8 27.0 - 33.0 pg [facility] Mean Corpuscular HGB Conc 33.5 31.0 - 35.0 g/dl [facility] Red Cell Distribution Width 14.2 11.0 - 16.0 % [facility] Platelet Count 340 160 - 400 X10*3/uL [facility] Mean Platelet Volume 9.0(L) 9.4 - 12.3 fL [facility] Neutrophils Percent Auto 60.1 45 - 73 % [facility] Imm Gran Pct Auto 0.4 0.0 - 0.4 % [facility] Lymphocytes Percent Auto 32.8 20 - 40 % [facility] Monocytes Percent Auto 4.9 2 - 11 % [facility] Eosinophils Percent Auto 1.2 0 - 4 % [facility] Basophils Percent Auto 0.6 0 - 2 % [facility] NRBC Pct Auto 0.0 0.0 - 0.2 /100WBC [facility] Neutrophils Absolute Auto 6.1 2.0 - 8.3 x10*3/uL [facility] Imm Gran Abs Auto 0.04(H) 0.00 - 0.03 X10*3/uL [facility] Lymphocytes Absolute Auto 3.3 1.2 - 4.9 X10*3/uL [facility] Monocytes Absolute Auto 0.5 0.1 - 1.2 X10*3/uL [facility] Eosinophils Absolute Auto 0.1 0.0 - 0.4 X10*3/uL [facility] Basophils Absolute Auto 0.1 0.0 - 0.2 X10*3/uL [facility] NRBC Abs Auto 0.000 0.0 - 0.012 X10*3/uL [facility] 12/29/2024 10:0 0 AM EDT 12/29/2024 10:02 AM EDT Generic External Data Provider LAB BLOOD ORDERAB LES Final Result Performing Organization Address [facility]/ZIP Co de Phone Number [facility] [address] [place] [phone] * (ABNORMAL) Lipase (12/29/2024 10:00 AM EDT) Lipase 2,196(H) 8 - 78 U/L [facility] 12/29/2024 10:0 0 AM EDT 12/29/2024 10:02 AM EDT Generic External Data Provider LAB BLOOD ORDERAB LES Final Result Performing Organization Address [facility] Co de Phone Number [facility] [address] [place] [phone] * Hepatic Function Panel (12/29/2024 10:00 AM EDT) Bilirubin, Total 0.4 0.0 - 1.0 mg/dL [facility] Bilirubin, Direct 0.1 0.0 - 0.5 mg/dL [facility] Aspartate Amino Transferase 26 5 - 31 U/L [facility] Alanine Aminotransferase 19 0 - 31 U/L [facility] Total Protein 7.6 6.5 - 8.0 g/dL [facility] Albumin Level 4.4 3.5 - 5.0 g/dL [facility] Alkaline Phosphatase 90 39 - 117 U/L [facility] 12/29/2024 10:0 0 AM EDT 12/29/2024 10:02 AM EDT us Generic External Data Provider LAB BLOOD ORDERAB LES Final Result [facility] [address] [place] [address] [phone] * (ABNORMAL) Basic Metabolic Panel (12/29/2024 10:00 AM EDT) Sodium 142 135 - 145 mmol/L [facility] Potassium 4.0 3.3 - 5.1 mmol/L [facility] Chloride 107 96 - 108 mmol/L [facility] Carbon Dioxide 30(H) 22 - 29 mmol/L [facility] Anion Gap 9(L) 12 - 20 [facility] Urea Nitrogen (BUN) 10 9 - 16 mg/dL [facility] Creatinine, Serum 0.75 0.5 - 1.4 mg/dL [facility] Creatinine Clr Calc Pharmacy 66.2 [facility] Comment:Provided height and weight: 162.56 cm,49.5 kg.eGFR (calculated from the MDRD study equation) and eCrCl(calculated from the Cockcroft-Gault equation) are based ondifferent parameters and may not yield comparable results.If eCrCl result is absurd, please check patient'sheight/weight. Estimated Glomerular Filt Rate >60 [facility] Comment:Chronic Kidney Disea se: Estimated GFR < 60 mL/min/1.78p1Gwfvhv Kidney Disease: Estimated GFR < 15 mL/min/1.73m2 Glucose 117(H) 60 - 115 mg/dL [facility] Calcium 9.3 8.4 - 10.2 mg/dL [facility] 12/29/2024 10:0 0 AM EDT 12/29/2024 10:02 AM EDT us Generic External Data Provider LAB BLOOD ORDERAB LES Final Result Performing Organization Address [facility] Co de Phone Number [facility] [address] [place] [phone] * (ABNORMAL) Confirmatory Syphilis Profile (11/26/2024 1:24 PM EDT) [facility] Rapid Plasma Reagin, Quant Non-React darren Nonreactive [facility] Treponema pallidum Antibody, Particle Agglutination Reactive( A) Nonreactive [facility] Comment:These results must b e reported by the ordering clinician orclinical facility [facility] required by state law.Testing performed at: [address] [address] 11/26/2024 1:24 PM EDT 11/27/2024 3:54 AM EDT Emilie Davis MD LAB BLOOD ORDERABLES Final Result Performing Organization Address [facility] Co de Phone Number [facility] [address] [place] [phone] * (ABNORMAL) Syphilis Screen (11/26/2024 1:24 PM EDT) [facility] Syphilis Screen Reactive( A) Nonreactive [facility] Comment:Reactive specimens a re sent to the [facility] Labfor confirmatory tests. 11/26/2024 1:24 PM EDT 11/26/2024 4:06 PM EDT Emilie Davis MD LAB BLOOD ORDERABLES Final Result Performing Organization Address [facility] Co de Phone Number [facility] [address] [place] [phone] * Hepatitis C Viral RNA, Quantitative, Real-Time PCR (11/26/2024 1:24 PM EDT) [facility] Hepatitis C Viral Load <15 NOT DETECTED NOT DETECTED IU/mL [facility] HCV Log PCR <1.18 NOT DETECTED NOT DETECTED Log IU/mL [facility] Comment:For additional infor nura, please refer tohttp://education.WITOI/faq/KXZ96v8(This link is being provided for informational/educational purposes only.)THIS TEST WAS PERFORMED AT:[employer] [place] [phone] MALDONADO MD 11/26/2024 1:24 PM EDT 11/27/2024 2:28 PM EDT Emilie Davis MD LAB BLOOD ORDERABLES Final Result Performing Organization Address [facility]/ZIP Co de Phone Number [facility] [address] [place] [phone] * (ABNORMAL) Hepatitis C Antibody with Reflex to HCV, RNA, Quantitative, Real- Time PCR (11/26/2024 1:24 PM EDT) Hepatitis C Antibody Reactive( A) Nonreactive [facility] Comment:Presumptive evidence of antibodies to HCV. 11/26/2024 1:24 PM EDT 11/26/2024 4:06 PM EDT Emilie Davis MD LAB BLOOD ORDERABLES Final Result Performing Organization Address [facility] Co de Phone Number [facility] [address] [place] [phone] * Methylmalonic Acid (11/26/2024 1:24 PM EDT) Methylmalonic Acid 197 55 - 335 nmol/L [facility] Comment: Serum methylmalonic acid (MMA) levels are used todiagnose and monitor several rare inborn errors ofmetabolism, including methylmalonic aciduria. Theenzymatic conversion of MMA to succinic acid requiresvitamin B12 (adenosyl-cobalamin) as a cofactor. SerumMMA levels are also used for assessing functionalvitamin B12 deficiency. Vitamin B12 is essential forfetal neurodevelopment, particularly early inpregnancy. Undiagnosed maternal vitamin B12 deficiencymay be associated with adverse / outcomes,such as neural tube defects and intrauterine growthrestriction.Warp 9 utilized Multi-Modal Decomposition(MMD) analysis to establish first and second trimester-specific MMA reference intervals in , as givenbelow:MMA, First trimester (<13 wks gestation): 58-167 nmol/LMMA, Second trimester (13-23 wks gestation):63-241 nmol/LThis test was developed and its analytical performancecharacteristics have been determined by [employer]. It has not been cleared or approved by theFDA. This assay has been validated pursuant to the CLIAregulations and is used for clinical purposes.THIS TEST WAS PERFORMED AT:[employer] [place] [phone] ESTEVEZ MD,PHD 11/26/2024 1:24 PM EDT 11/26/2024 4:06 PM EDT Generic External Data Provider LAB BLOOD ORDERAB LES Final Result [facility] [address] [place] [phone] * HIV-1 RNA, Quantitative, Real-Time PCR (11/26/2024 1:24 PM EDT) HIV RNA PCR Qn Copies NOT DETECTED NOT DETECTED copies/mL [facility] HIV RNA PCR Qn Log Copies NOT DETECTED NOT DETECTED [facility] Comment:Result Units: Log co pies/mLThis test was performed using Real-Time Polymerase ChainReaction.Reportable Range: 20 copies/mL to 10,000,000 copies/mL(1.30 log copies/mL to 7.00 log copies/mL).THIS TEST WAS PERFORMED AT:[employer] [address] [id number] MALDONADO MD 11/26/2024 1:24 PM EDT 11/26/2024 4:06 PM EDT Emilie Davis MD LAB BLOOD ORDERABLES Final Result Performing Organization Address [facility] Co de Phone Number [facility] [address] [place] [phone] * RPR (Monitor) with Reflex to??Titer (11/26/2024 1:24 PM EDT) RPR (Monitor) w/Refl Titer NON-REACTI VE NON-REACT DARREN [facility] Comment:THIS TEST WAS PERFOR MED AT:[employer] [place] [phone] MALDONADO MD Rapid Plasma Reagin Ab Titer TNP [facility] 11/26/2024 1:24 PM EDT 11/26/2024 4:06 PM EDT Emilie Davis MD LAB BLOOD ORDERABLES Final Result Performing Organization Address [facility] Co de Phone Number [facility] [address] [place] [phone] * POCT RAPID HIV SCREENING (11/26/2024 10:08 AM EDT) Blood 11/26/2024 10:0 8 AM EDT Narrative Medina Lewis RN - 11/26/2024 10:08 AM EDT Negative Emilie Davis MD POINT OF CARE TEST ENTER/E DIT ORDERABLES Final Result * NM Gastric Emptying Solid (10/20/2024 8:15 AM EDT) Anatomical Region Laterality Modality Body Nuclear Medicine 10/20/2024 8:15 AM EDT Narrative 10/20/2024 1:44 PM EDT [address] [address] Nuclear Medicine Report Signed Patient: Harriet Valdez MR#: [id number] : 1970 Acct:[id number] Age/Sex: 54 / F ADM Date: 10/20/24 Loc: ANJU Attending Dr: Aida ASH Ordering Physician: Aida Orozco Date of Service: 10/20/24 Procedure(s): GA gastric emptying study Accession Number(s): [id number] cc: Emilie Davis MD; Aida Orozco EXAMINATION: GA RADIONUCLIDE SOLID FOOD GASTRIC EMPTYING 4-HOUR STUDY CLINICAL INFORMATION: Vomiting. Right upper quadrant pain. COMPARISON: None TECHNIQUE: A standard meal consisting of 4 oz of Egg Beaters brand tagged with 0.82 microcuries Tc-99m Sulfur Colloid, 8 oz water and 2 slices of toast with jelly was administered orally to the patient. Images were obtained using a dual head gamma camera in the anterior and posterior projections over of the stomach immediately post ingestion and at hourly intervals up to 4 hours post ingestion. The anterior and posterior counts at each time interval were averaged using the geometric mean and expressed as percentage of the immediate post ingestion counts. FINDINGS: There is good visualization of activity in the stomach immediately post ingestion. As the study progresses, there is good clearance of activity from the stomach and visualization of progressively increasing small bowel activity. By the end of the study, there is almost no retention noted in the stomach. Retention in the stomach at each time interval was: 1 hour 87% (normal 37%-90%) 2 hours 58% (normal 30%-60%) 3 hours 16% 4 hours 8% (normal 0%-10%) GA/GA gastric emptying study IMPRESSION: Normal 4-hour solid food gastric emptying study. For solid meal, rapid gastric emptying is less than 30% at 60 minutes. Delayed gastric emptying criteria is more than 60% remaining at 120 minutes or more than 10% at 240 minutes. The 4-hour value is the best discriminator of a normal or abnormal result). Gastric emptying study grading per JNMT Consensus Recommendations in 2008 (https://tech.snmjournals.org/content/36/1/44) Grade 1 (mild retention): 11-20% at 4h Grade 2 (moderate retention): 21-35% at 4h Grade 3 (severe retention): 36-50% at 4h Grade 4 (very severe retention): >50% retention at 4h Electronically signed by: Jimmy Pedroza MD 10/20/2024 01:41 PM EDT RP Dictated By: Jimmy Pedroza MD Signed By: <Electronically signed by Jimmy Pedroza MD in OV> 10/20/24 1341 DD/ 0815 TD/TT: 10/20/24 1235 Truck Caterer: MADINA Procedure Note Donotuseinterpreter, Image - 10/20/[address] [address] Nuclear Medicine Report Signed Patient: Harriet ValdezMR#: [id number] : 1970Acct:[id number] Age/Sex: 54 / FADM Date: 10/20/24 Loc: ANJU Attending Dr: Aida ASH Ordering Physician: Aida Orozoc Date of Service: 10/20/24 Procedure(s): NM gastric emptying study Accession Number(s): [id number] cc: Emilie Davis MD; Aida Orozco EXAMINATION: NM RADIONUCLIDE SOLID FOOD GASTRIC EMPTYING 4-HOUR STUDY CLINICAL INFORMATION: Vomiting. Right upper quadrant pain. COMPARISON: None TECHNIQUE: A standard meal consisting of 4 oz of Egg Beaters brand tagged with 0.82 microcuries Tc-99m Sulfur Colloid, 8 oz water and 2 slices of toast with jelly was administered orally to the patient. Images were obtained using a dual head gamma camera in the anterior and posterior projections over of the stomach immediately post ingestion and at hourly intervals up to 4 hours post ingestion. The anterior and posterior counts at each time interval were averaged using the geometric mean and expressed as percentage of the immediate post ingestion counts. FINDINGS: There is good visualization of activity in the stomach immediately post ingestion. As the study progresses, there is good clearance of activity from the stomach and visualization of progressively increasing small bowel activity. By the end of the study, there is almost no retention noted in the stomach. Retention in the stomach at each time interval was: 1 hour 87% (normal 37%-90%) 2 hours 58% (normal 30%-60%) 3 hours 16% 4 hours 8% (normal 0%-10%) NM/NM gastric emptying study IMPRESSION: Normal 4-hour solid food gastric emptying study. For solid meal, rapid gastric emptying is less than 30% at 60 minutes. Delayed gastric emptying criteria is more than 60% remaining at 120 minutes or more than 10% at 240 minutes. The 4-hour value is the best discriminator of a normal or abnormal result). Gastric emptying study grading per JNMT Consensus Recommendations in 2008 (https://tech.snmjournals.org/content/36/44) Grade 1 (mild retention): 11-20% at 4h Grade 2 (moderate retention): 21-35% at 4h Grade 3 (severe retention): 36-50% at 4h Grade 4 (very severe retention): >50% retention at 4h Electronically signed by: Jimmy Pedrzoa MD 10/20/2024 01:41 PM EDT Dictated By: Jimmy Pedroza MD Signed By: <Electronically signed by Jimmy Pedroza MD in OV> 10/20/24 1341 DD/ 0815 TD/TT: 10/20/24 1235 Truck Caterer: MADINA [facility] External Provider IMG NM PROCEDURES Final Result * Mr Brain w/ and w/o Contrast (10/13/2024 4:52 PM EDT) Anatomical Region Laterality Modality Brain Magnetic Resonan ce 10/13/2024 4:52 PM EDT Narrative 10/13/2024 4:54 PM EDT [place] [address] Magnetic Resonance Report Signed Patient: Harriet Valdez MR#: [id number] : 1970 Acct:[id number] Age/Sex: 54 / F ADM Date: 10/12/24 Loc: HO.MRI Attending Dr: Suha ABDI Ordering Physician: Suha Rodriguez Date of Service: 10/12/24 Procedure(s): MR head/brain wo/w con Accession Number(s): [id number] cc: Emilie Davis MD; Suha Rodriguez CLINICAL HISTORY: R51.9 - Headache, unspecified --- Additional Notes or Special Instructions: Assessing for secondary etiologies of new onset left-sided headache c w MR brain with and without IV contrast. COMPARISON: None FINDINGS: No abnormal diffusion restriction in the brain parenchyma or extra-axial spaces. No abnormal enhancement within the brain or meninges. No evidence of mass, mass effect or midline shift. No intracranial hemorrhage or abnormal extra-axial fluid collection. No evidence of hydrocephalus. The basilar cisterns are patent. Few scattered areas of T2/FLAIR hyperintensity within the hernandez radiata in the frontal lobes bilaterally consistent with mild white-matter small-vessel disease. Cerebellar hemispheres and cerebellar vermis are normal. Fourth ventricle is normal. No brainstem abnormality is identified. Intracranial flow voids are patent. The visualized paranasal sinuses and mastoid air-cells are clear. IMPRESSION: 1. No acute intracranial findings. 2. Mild white-matter small-vessel disease. This document has been electronically signed by: Juan Álvarez MD on 10/13/2024 16:52:13 Dictated By: Juan Álvarez MD Signed By: <Electronically signed by Juan Álvarez MD in OV> 10/13/24 1653 DD/ 165 TD/TT: 10/13/24 165 Truck Caterer: Procedure Note Donotuseinterpreter, Image - 10/13/2024 [place] [address] Magnetic Resonance Report Signed Patient: Harriet Valdez#: [id number] : 1970Acct:[id number] Age/Sex: 54 / FADM Date: 10/12/24 Loc: HO.MRI Attending Dr: Suha ABDI Ordering Physician: Suha Rodriguez Date of Service: 10/12/24 Procedure(s): MR head/brain wo/w con Accession Number(s): [id number] cc: Emilie Davis MD; Suha Rodriguez CLINICAL HISTORY: R51.9 - Headache, unspecified --- Additional Notes orSpecial Instructions: Assessing for secondary etiologies of new onset left-sided headache c w MR brain with and without IV contrast. COMPARISON: None FINDINGS: No abnormal diffusion restriction in the brain parenchyma or extra-axial spaces. No abnormal enhancement within the brain or meninges. No evidence of mass, mass effect or midline shift. No intracranial hemorrhage or abnormal extra-axial fluid collection. No evidence of hydrocephalus. The basilar cisterns are patent. Few scattered areas of T2/FLAIR hyperintensity within the hernandez radiata in the frontal lobes bilaterally consistent with mild white-matter small-vessel disease. Cerebellar hemispheres and cerebellar vermis are normal. Fourth ventricle is normal. No brainstem abnormality is identified. Intracranial flow voids are patent. The visualized paranasal sinuses and mastoid air-cells are clear. IMPRESSION: 1. No acute intracranial findings. 2. Mild white-matter small-vessel disease. This document has been electronically signed by: Juan Álvarez MD on 10/13/2024 16:52:13 Dictated By: Juan Álvarez MD Signed By: <Electronically signed by Juan Álvarez MD in OV> 10/13/241652 DD/ 51 TD/TT: 10/13/241651 Truck Caterer: [facility] External Provider IMG MRI PROCEDURES Final Result * MR VENOGRAPHY HEAD WO/W CON (10/13/2024 4:49 PM EDT) Anatomical Region Laterality Modality Upper Extremities, Wrist Left Magneti c Resonance 10/13/2024 4:49 PM EDT Narrative 10/13/2024 4:51 PM EDT [place] [address] Magnetic Resonance Report Signed Patient: Harriet Valdez MR#: [id number] : 1970 Acct:[id number] Age/Sex: 54 / F ADM Date: 10/12/24 Loc: HO.MRI Attending Dr: Suha ABDI Ordering Physician: Suha Rodriguez Date of Service: 10/12/24 Procedure(s): MR venography head wo/w con Accession Number(s): [id number] cc: Emilie Davis MD; Suha Rodriguez CLINICAL HISTORY: R51.9 - Headache, unspecified --- Additional Notes or Special Instructions: Assessing for secondary etiologies of new onset left-sided headache c w MR venography of the brain with and without contrast. COMPARISON: MR brain dated 10/12/24 at 16:46 EDT FINDINGS: Normal enhancement within the superior sagittal sinus and straight sinus. There is normal enhancement within the bilateral transverse and sigmoid sinuses. There is normal enhancement within the bilateral proximal internal jugular veins. The visualized cortical venous structures are unremarkable. IMPRESSION: 1. No evidence of dural sinus thrombosis. This document has been electronically signed by: Juan Álvarez MD on 10/13/2024 16:49:41 Dictated By: Juan Álvarez MD Signed By: <Electronically signed by Juan Álvarez MD in OV> 10/13/24 165 DD/ 164 TD/TT: 10/13/241648 Truck Caterer: Procedure Note Donotuseinterpreter, Image - 10/13/2024 [place] [address] Magnetic Resonance Report Signed Patient: Harriet Valdez#: [id number] : 1970Acct:[id number] Age/Sex: 54 / FADM Date: 10/12/24 Loc: HO.MRI Attending Dr: Suha ABDI Ordering Physician: Suha Rodriguez Date of Service: 10/12/24 Procedure(s): MR venography head wo/w con Accession Number(s): [id number] cc: Emilie Davis MD; Suha Rodriguez CLINICAL HISTORY: R51.9 - Headache, unspecified --- Additional Notes orSpecial Instructions: Assessing for secondary etiologies of new onset left-sided headache c w MR venography of the brain with and without contrast. COMPARISON: MR brain dated 10/12/24 at 16:46 EDT FINDINGS: Normal enhancement within the superior sagittal sinus and straight sinus. There is normal enhancement within the bilateral transverse and sigmoid sinuses. There is normal enhancement within the bilateral proximal internal jugular veins. The visualized cortical venous structures are unremarkable. IMPRESSION: 1. No evidence of dural sinus thrombosis. This document has been electronically signed by: Juan Álvarez MD on 10/13/2024 16:49:41 Dictated By: Juan Álvarez MD Signed By: <Electronically signed by Juan Álvarez MD in OV> 10/13/241649 DD/ 48 TD/TT: 10/13/241648 Truck Caterer: [facility] External Provider IMG MRI PROCEDURES Final Result * Stress test with myocardial perfusion (10/13/2024 10:01 AM EDT) 10/13/2024 10:0 1 AM EDT Narrative [facility] - 10/14/2024 3:56 PM EDT [address] [address] Nuclear Medicine Report Signed Patient: Harriet Valdez MR#: [id number] : 1970 Acct:[id number] Age/Sex: 54 / F ADM Date: 10/13/24 Loc: [place] Attending Dr: Fred Castanon MD Ordering Physician: Fred Castanon MD Date of Service: 10/13/24 Procedure(s): NM cardiolite stress test Accession Number(s): [id number] cc: Emilie Davis MD; Fred Castanon MD Lexiscan Myocardial perfusion study Indication: Coronary artery disease Technique: The patient was brought in for a Lexiscan perfusion study on 10/13/2024 and was injected 0.4 mg of Lexiscan intravenously. Within a minute of this injection 25 mCi of sestamibi was given intravenously. Images were obtained using the SPECT gamma camera interlaced with the gating device. Images were obtained in supine position. Resting perfusion study was performed on 10/14/2024. Patient was administered 25 mCi of sestamibi intravenously at rest. Images were then obtained in supine position. Total DLP 64 mGy-cm. Images were processed with the software and compared side to side in short axis, horizontal long axis and vertical long axis views. Findings: Raw aquisition reviewed. The stress perfusion study showed no significant perfusion abnormality. Both uncorrected as well as CT attenuation corrected images were reviewed. The gated study shows normal LV systolic function with calculated LVEF of 49%-visually normal. LV cavity is normal in size. The gated study shows normal wall thickening and contraction of segments. Resting study shows reduced tracer uptake in the distal part of inferior wall. There is improvement with CT attenuation correction and hence suggestive of diaphragmatic attenuation artifact. Gating at rest reveals normal wall motion with ejection fraction at 58%. The findings are consistent with no clear reversible or fixed perfusion defects. NM/NM cardiolite stress test Impression: 1. Myocardial perfusion imaging study shows normal myocardial perfusion. 2. Gated LVEF is 58% during rest; visually normal during stress. 3. Transient ischemic dilatation not present. EKG component of the test reported separately. Electronically signed by: Rasta Gloria MD 10/14/2024 03:53 PM EDT Dictated By: Rasta Gloria MD Signed By: <Electronically signed by Rasta Gloria MD in OV> 10/14/24 1553 DD/ 1001 TD/TT: 10/14/24 1015 Truck Caterer: Procedure Note Donotuseinterpreter, Image - 10/14/2024 [place] [address] Nuclear Medicine Report Signed Patient: Harriet Valdez#: [id number] : 1970Acct:[id number] Age/Sex: 54 / FADM Date: 10/13/24 Loc: [facility] Attending Dr: Fred Castanon MD Ordering Physician: Fred Castanon MD Date of Service: 10/13/24 Procedure(s): NM cardiolite stress test Accession Number(s): [id number] cc: Emilie Davis MD; Fred Castanon MD Lexiscan Myocardial perfusion study Indication: Coronary artery disease Technique: The patient was brought in for a Lexiscan perfusion study on 10/13/2024 and was injected 0.4 mg of Lexiscan intravenously. Within a minute of this injection 25 mCi of sestamibi was given intravenously. Images were obtained using the SPECT gamma camera interlaced with the gating device. Images were obtained in supine position. Resting perfusion study was performed on 10/14/2024. Patient was administered 25 mCi of sestamibi intravenously at rest. Images were then obtained in supine position. Total DLP 64 mGy-cm. Images were processed with the software and compared side to side in short axis, horizontal long axis and vertical long axis views. Findings: Raw aquisition reviewed. The stress perfusion study showed no significant perfusion abnormality. Both uncorrected as well as CT attenuation corrected images were reviewed. The gated study shows normal LV systolic function with calculated LVEF of 49%-visually normal. LV cavity is normal in size. The gated study shows normal wall thickening and contraction of segments. Resting study shows reduced tracer uptake in the distal part of inferior wall. There is improvement with CT attenuation correction and hence suggestive of diaphragmatic attenuation artifact. Gating at rest reveals normal wall motion with ejection fraction at 58%. The findings are consistent with no clear reversible or fixed perfusion defects. NM/NM cardiolite stress test Impression: 1. Myocardial perfusion imaging study shows normal myocardial perfusion. 2. Gated LVEF is 58% during rest; visually normal during stress. 3. Transient ischemic dilatation not present. EKG component of the test reported separately. Electronically signed by: Rasta Gloria MD 10/14/2024 03:53 PM EDT Dictated By: Rasta Gloria MD Signed By: <Electronically signed by Rasta Gloria MD inOV> 10/14/24 1553 DD/ 1001 TD/TT: 10/14/24 1015 Truck Caterer: us [facility] External Provider CV STRE SS PROCEDURES Final Result [facility] [address] [place] [address] * (ABNORMAL) Lipid Panel, Standard (07/24/2024 1:36 PM EDT) Triglycerides 141 <150 mg/dL [facility] Comment:Desirable Triglyceri de: less than 150 mg/dLBorderline High Triglyceride 150-199 mg/dLHigh Triglyceride: 200-499 mg/dLVery High Triglyceride: greater than or equal to 5OO mg/dL Cholesterol 205(H) <200 mg/dL [facility] Comment:Desirable Cholestero l: less than 200 mg/dLBorderline High Cholesterol: 200-239 mg/dLHigh Cholesterol: greater than 239 mg/dL LDL Cholesterol Calculated 114(H) <100 mg/dL [facility] Comment:Desirable LDL: less than 100 mg/dLNear Optimal/Above Optimal LDL: 110- 129 mg/dLBorderline High LDL: 130-159 mg/dLHigh LDL: 160-189 mg/dLVery High LDL: greater than or equal to 190 mg/dL HDL Cholesterol 63 >40 mg/dL [facility] Comment:Desirable HDL: great er than 40 mg/dL Note: This HDL assay may give artificially low results in patients with liver disease. 07/24/2024 1:36 PM EDT 07/24/2024 4:20 PM EDT us Generic External Data Provider LAB BLOOD ORDERAB LES Final Result [facility] [address] [place] [phone] * HPV mRNA E6/E7 w/Reflex to HPV Genotypes 16, 18/45 (03/22/2023 11:30 AM EST) HPV nRNA E6/E7 Not Detected Not Detected [facility] Comment:Methodology: Transcr iption-Mediated AmplificationThis assay detects E6/E7 viral messenger RNA (mRNA) from 14high-risk HPV types (16,18,31,33,35,39,45,51,52,56,58,59,66,68).Cervical sources are required for HPV testing.If a vaginal source from a patient who has had atotal hysterectomy with removal of cervix wassubmitted, please contact the testing laboratoryfor alternative testing options.For additional information, please refer tohttp://education.WITOI/faq/ART786w6(This link if provided for information/educational purposes only.)THIS TEST WAS PERFORMED AT:[employer] [place] [phone] MALDONADO MD HPV mRNA E6/E7 TNP [facility] HPV 16 RNA TNP [facility] HPV 18/45 RNA TNP [facility] 03/22/2023 11:3 0 AM EST 03/25/2023 12:20 PM EST us Emilie Davis MD LAB CYTOLOGY ORDERABLES Fi nal Result [facility] [address] [place] [phone] * Pap Smear (03/22/2023 11:30 AM EST) 03/22/2023 11:3 0 AM EST 03/25/2023 12:20 PM EST Narrative [facility] - 04/11/2023 11:26 AM EST ----- ------- Name: Trace RobersonHarriet do Age/Sex: 53/F : 1970 Unit#: [id number] Attend Dr: RADHA VILLAREAL MD Re03/22/23 Status: DEP REF Location: HO.HHCLNP Disch: ----- ------- SPEC : [id number] RECD: 03/25/231220 STATUS: JANIE DUNLAP NUM: [id number] AMBREEN: 03/22/23-[address]: Emilie Davis MD ENTERED: 03/25/23-6144 SP TYPE: Pap Smr OTHR DR: ORDERED: Pap Smear Interpretation Satisfactory for evaluation. Negative for intraepithelial lesion or malignancy. HPV mRNA E6/E7: NOT DETECTED This assay detects E6/E7 viral messenger RNA (mRNA) from 14 high-risk HPV types (16, 18, 31, 33, 35, 39, 45, 51, 52, 56, 58, 59, 66, 68) HPV testing performed by [facility], [place], [place]. See reference laboratory portion of the EMR for entire report. Clinical Information LMP: Unknown date Previous PAP test: Unknown date, WNL Other history: Pt on testosterone, surgical post menopause Material Received ThinPrep-Cervical ----- ------- Signed (signature on file) SERENA Alejandro (ASCP) 04/11/23 1126 ----- ------- END OF REPORT Emilie Davis MD LAB CYTOLOGY ORDERABLES Fi nal Result [facility] [address] [place] [phone] * Colonoscopy (01/30/2018) Colonoscopy normal Historical Provider HEALTH MAINTENANCE Final Result from Last 3 Months or Most Recently Relevant to Health Maintenance Insurance [facility] [address] [place] [address] Advance Directives Documents on File Type Date Recorded Patient Bottom Bleacher Expl anation Advance Directives and Living Will 03/16/2024 Health Care Proxy 03/16/24 Care Teams Pediatric Physician Assistant Relationship Specialty Start Date End Date [place], MD Emilie [address] [place] [address] PCP - General Family Medicine 05/13/18 Mroales Echavarria FNP [address] [place] [address] Nurse Practitioner Family Medicine 04/16/23 Aida Orozco [address]rd [place] [address] Gastroenterology 05/26/24 Fred Castanon [address] [place] [address] 3[address] [place] [address] 07/21/24
--- OUTSIDE RECORDS SUMMARY | 2025-01-08 09:56 | XMS_ITS | Encounter Summary ---
Author Organization [employer] Address [address] [place] [address] Care Team Providers Care Industrial Hygiene Technician Name Role Phone Emilie Davis MD Primary Care Provider +1- [phone] Morales Echavarria CHIEF DIVERSITY OFFICER Unavailable Unavailable August Unavailable Fred Castanon Unavailable Reason for Visit * Reason Onset Date Comments Referral 07/20/2024 Encounter Details Date Type Department Care Team (Late st Contact Info) Description 07/20/2024 Telephone [facility] [address] [place] [address] Emilie Davis MD [address] [place] [address] Referral Social History Tobacco Use Types Packs/Day [...] 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 Contact pt at [phone] documented in this encounter Plan of Treatment Upcoming Encounters Date Type Department Care Team (Late st Contact Info) Description 01/12/2025 9:30 AM EDT Office Visit [facility] [address] [place] [phone] Lauren Borrero FNP [address] [place] [address] 01/22/2025 9:00 AM EDT Clinical Support [facility] [address] [place] [phone] Medina Leiws, RONALD [address] [place] [phone] documented as of this encounter Visit Diagnoses Not on filedocumented in this encounter Additional Health Concerns Assessment Noted Time PHQ-9 Depression Total Score: 3 04/30/20 23 9:17 AM EST documented as of this encounter Care Teams Industrial Hygiene Technician Relationship Specialty Start Date End Date Emilie Davis MD [address] [place] [phone] PCP - General Family Medicine 05/13/18 Morales Echavarria FNP [address] [place] [address] Nurse Practitioner Family Medicine 04/16/23August [address] [place] [address] Gastroenterology 05/26/24 Fred Castanon [address] [place] [phone] 07/21/24 documented as of this encounter
--- OUTSIDE RECORDS SUMMARY | 2025-01-08 09:56 | XMS_ITS | Encounter Summary ---
Author Organization [employer] [facility] Address [address] [place] [address] Care Team Providers Care Neurosurgical Nurse Name Role Phone Emilie Davis MD Primary Care Provider +1- [phone] Morales Echavarria FARM MECHANIC APPRENTICE Unavailable Unavailable August Unavailable Fred Castanon Unavailable Reason for Visit * Reason Onset Date Comments Nurse Triage 01/04/2025 Encounter Details Date Type Department Care Team (Late st Contact Info) Description 01/04/2025 Telephone [facility] [address] [place] [address] Emilie Davis MD [address] [place] [address] Nurse Triage Social History Tobacco Use Types Packs/Day Years [...] 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 Pt to follow up with Dr. Mills for GI. Low fat diet x 4 weeks. No new meds. Resume all meds as prescribed prior to hospitalization. Call returned to Deloris Roberson to triage below at [phone]. Reports having sx of nausea and vomiting. Denies any blood in vomit, green bile or coffee ground emesis. Pt following low fat diet. Has not yet called [facility]. Pt states was told that has a lot of stool build up and needs GI follow up. Pt advised to call GI office and booked HDF appt with team provider soonest available with FNPresident. Reviewed home care advise, ER precautions and reasons to call back. Protocol Used: Post-Hospitalization Follow-up Call (Adult) Protocol-Based Disposition: Callback or Video Visit by PCP Today Override (Final) Disposition: See in Office or Video Visit within 2 Weeks Override Reason: Organization policy Future Appointments Date Time Provider Department Center 01/12/2025 9:30 AM TRINIDAD Grace MEDICINE [facility] 01/22/2025 9:00 AM Medina Lewis RN [facility] Insurance verified as active per Real Time Eligibility in Epic. Video visit offer not recorded Positive Triage Question: * Condition / symptoms SAME (not improving) * All higher-acuity triage questions were negative Care Advice Discussed: * Continue Treatment * Reasons To Call Back - Fever occurs - You become worse * Telephone Encounter - Jayleen Giron - 01/04/2025 8:27 AM EDT Symptoms: Nausea But No Vomiting, Headache, Vomiting, Back Pain - Not From Injury, Constipation Outcome: Talk to a nurse or provider within 15 minutes Reason: Trouble walking The caller accepted this outcome. Contact pt at [phone] Need academic intern documented in this encounter Plan of Treatment Upcoming Encounters Date Type Department Care Team (Late st Contact Info) Description 01/12/2025 9:30 AM EDT Office Visit [facility] [address] [place] [phone] Lauren Borrero FNP [address] [place] [phone] 01/22/2025 9:00 AM EDT Clinical Support [address] [address] Medina Lewis, RONALD [address] [place] [phone] documented as of this encounter Visit Diagnoses Not on filedocumented in this encounter Additional Health Concerns Assessment Noted Time PHQ-9 Depression Total Score: 3 04/30/20 23 9:17 AM EST documented as of this encounter Care Teams Neurosurgical Nurse Relationship Specialty Start Date End Date Emilie Davis MD [address] [place] [address] PCP - General Family Medicine 05/13/18 Morales Echavarria FNP [address] [place] [address] Nurse Practitioner Family Medicine 04/16/23 Aida Orozco [address] [address] Gastroenterology 05/26/24 Fred Castanon [address] [place] [phone] 07/21/24 documented as of this encounter
--- OUTSIDE RECORDS SUMMARY | 2025-01-08 09:57 | XMS_ITS | Encounter Summary ---
Author Organization [email or web address] [facility] Address [address] [place] [address] Care Team Providers Care Superintendent [employer] Name Role Phone Emilie Davis MD Primary Care Provider +1- [phone] Morales Echavarria [employer] MK1 OPERATOR Unavailable Unavailable August Unavailable Fred Castanon Unavailable Reason for Visit * Reason Onset Date Comments Med Refill 04/22/2024 Encounter Details Date Type Department Care Team (Late st Contact Info) Description 04/22/2024 Telephone [facility] [address] [place] [address] Emilie Davis MD [address] [place] [address] Med Refill Social History Tobacco Use Types [...] 200 MG/5ML suspension To be sent to: [facility] - [place], [place] - [address] [facility] documented in this encounter Plan of Treatment Upcoming Encounters Date Type Department Care Team (Late st Contact Info) Description 01/12/2025 9:30 AM EDT Office Visit [facility] [address] [place] [address] Lauren Borrero FNP [address] [place] [address] 01/22/2025 9:00 AM EDT Clinical Support [facility] [address] [place] [address] Medina Lewis, RN [address] [place] [address] documented as of this encounter Visit Diagnoses Not on filedocumented in this encounter Additional Health Concerns Assessment Noted Time PHQ-9 Depression Total Score: 3 04/30/20 9:17 AM EST documented as of this encounter Care Teams Superintendent [employer] Relationship Specialty Start Date End Date Emilie Davis MD [address] [place] [address] PCP - General Family Medicine 05/13/18 Morales Echavarria FNP [address] [place] [phone] Nurse Practitioner Family Medicine 04/16/[address] [place] [address] [address] [place] [address] Gastroenterology 05/26/24 Fred Castanon [address] [place] [address] 07/21/24 documented as of this encounter
== END 2025-01-08 10:00 | disposition home or self-care (01) ==
LOC: HO.HGI 09:05
PROVIDERS: PCP Family Medicine; Visit Provider Nurse Practitioner
DX: R13.10 Dysphagia, unspecified (principal); K29.60 Other gastritis without bleeding; K21.00 Gastro-esophageal reflux disease with esophagitis, without bleeding; K21.9 Gastro-esophageal reflux disease without esophagitis; K85.90 Acute pancreatitis without necrosis or infection, unspecified; K59.09 Other constipation
CPT/HCPCS: 99214

== ENCOUNTER 2025-01-08 09:04 | Outpatient (REF) | payer OTHER, SELFPAY ==
--- OUTSIDE RECORDS SUMMARY | 2025-01-07 05:15 | XMS_ITS | Continuity of Care Document ---
Author Organization [facility] Address [address] [place] [address] [address] [place] [phone] Phone Care Team Providers Care Second Miller Name Role Phone Josue MARISCAL, KATHY, Manish [...] Providers Copied on Encounter [facility], [address] [place] [address] [address], [place], [id number], [place] tel:[phone] CVR - [place] - [place] Varicose veins of right lower extremity with other complications Josue MARISCAL, KATHY, ANDRE Hammond. [address] [facility], [address], [facility] [id number] , [place]. tel:[phone] Referring Provider: Emilie Way, [address] [place] [address], [place], [address]. tel:[phone] [facility], [address] [place] [address] Dr [address] [place] Strong [place], [id number], [place] tel:[phone] [facility] No Information 5 Josue MARISCAL RVT, ANDRE Hammond. [address] [address], [place], [place], [id number] , [place]. tel:[phone] Offic/outpt E&m Estab 5 Min Trial- Telemedicine CT & [place] [facility], [address] [place] [address] Dr [address] [place] Strong [place], [id number], [place] tel:[phone] [facility] venous hypertension (idiopathic) with other complications of bilateral lower extremity 5 Josue MARISCAL RVT, ANDRE Hammond. [facility] [address], [place], [place], [id number] , [place]. tel:[phone] Referring Provider: Emilie Way, [address] [place] [address], [place], [address]. tel:[phone] Offic Cons New/estab Mod 40 Mi- CT & [place] [facility], [address] [place] [address] Dr [address] 1000[facility] [place], [id number], [place] tel:[phone] [facility] Chronic venous hypertension (idiopathic) without complications of bilateral lower extremityRestl ess legs syndromePrurit us, unspecifiedPai n in left legCramp and spasmLocalized edema 5 Josue MARISCAL RVT, ANDRE Hammond. [facility] [address], [place], [place], [id number] , [place]. tel:[phone] Referring Provider: Emilie Way, [address] [place] [address], [place], [address]. tel:[phone] [place] [facility], [address] [place] [address] Dr [address] [place] Strong [place], [id number], [place] tel:[phone] [facility] Varicose veins of bilateral lower extremities with pain Josue MARISCAL, RVT, RPVI Manish. [address] [facility], [address], [facility], [place], [id number] , [place]. tel:[phone] Referring Provider: Emilie [place], [address] [place] [address], [place], [address]. tel:[phone] Family History Family Member Type Diagnosis Age At Onset No Information Payers Payer name Insurance type Covered democrat ID Authormartina patricia(s) [facility] [id number] 25 [id number] Social History Type Description Quantity Date Captured [...] with other complications of bilateral lower extremity Patient education [...] exercise Diet education Assessments Type Assessment Date No Information Patient Care Teams Name Effective Dates (start - stop) Status Members No Information
--- NOTE | ~2025-01-08 | XR_ITS ---
EXAMINATION: XR ABDOMEN 2 VIEWS SUPINE ERECT HISTORY: K59.09 - Other constipation COMPARISON: Comparison is made with the prior examination dated 10/02/2024. FINDINGS: Supine and upright views of the abdomen are submitted. The bowel gas pattern is unremarkable, without evidence of mechanical obstruction. There is no free intraperitoneal gas. There is a large amount stool throughout the colon. There is a surgical clip in the right upper quadrant. There is a calcified granuloma at the right lung base. There are no abnormal soft tissue masses. The bones are intact. XR/XR abdomen min 2V IMPRESSION: Large amount of stool throughout the colon. Electronically signed by: Manish Deras MD 01/08/2025 12:23 PM EDT
[2025-01-08 12:18] LABS: Lipase 33 U/L (8-78)
[2025-01-08 12:27] LABS: Amylase 114 U/L (28-100)
[2025-01-13 16:12] LABS: Vitamin D 25-OH, D2 <4 ng/mL; Vitamin D 25-OH, D3 28 ng/mL; Vitamin D 25-OH, Total 28 ng/mL (30-100)
== END 2025-01-08 09:05 | disposition home or self-care (01) ==
LOC: HO.XRAY 09:04
PROVIDERS: Nurse Practitioner Family; PCP Family Medicine; Visit Provider Nurse Practitioner
DX: K21.00 Gastro-esophageal reflux disease with esophagitis, without bleeding (principal); K85.90 Acute pancreatitis without necrosis or infection, unspecified; R70.0 Elevated erythrocyte sedimentation rate; K29.60 Other gastritis without bleeding; K59.04 Chronic idiopathic constipation; E55.9 Vitamin D deficiency, unspecified; R79.82 Elevated C-reactive protein (CRP); R13.10 Dysphagia, unspecified; Z79.899 Other long term (current) drug therapy
CPT/HCPCS: 36415; 74019; 74021; 82150; 82306; 83690; 85652; 86140; 99212

== ENCOUNTER → 2025-01-08 10:48 | Outpatient (BNV) | payer OTHER, SELFPAY | PROVIDERS: PCP Family Medicine; Visit Provider Radiology Diagnostic Radiology | DX: K59.09 Other constipation (principal) | CPT/HCPCS: 74019 ==

== ENCOUNTER 2025-01-12 07:57 | Outpatient (AMB) | payer OTHER, SELFPAY ==
--- OUTSIDE RECORDS SUMMARY | 2025-01-07 05:15 | XMS_ITS | Continuity of Care Document ---
Author Organization [facility] Address [address] [place] [address] [address] [place] [id number] Phone Care Team Providers Care Military Personnel Specialist Name Role Phone Josue MARISCAL, KATHY, Manish [...] Providers Copied on Encounter [facility], [address] [place] [address] [address], [place], [id number], [place] tel:[phone] CVR - [place] - [place] Varicose veins of right lower extremity with other complications Josue MARISCAL, KATHY, ANDRE Hammond. [address] [facility], [address], [facility] [id number] , [place]. tel:[phone] Referring Provider: Emilie Way, [address] [place] [address], [place], [address]. tel:[phone] [facility], [address] [place] [address] Dr [address] [place] Strong [place], [id number], [place] tel:[phone] [facility] No Information 5 Josue MARISCAL RVT, ANDRE Hammond. [address] [address], [place], [place], [id number] , [place]. tel:[phone] Offic/outpt E&m Estab 5 Min Trial- Telemedicine [place] & [place] [facility], [address] [place] [address] Dr [address] [place], [id number], [place] tel:[phone] [facility] hypertension (idiopathic) with other complications of bilateral lower extremity 5 Josue MARISCAL RVT, ANDRE Hammond. [facility] [address], [place], [place], [id number] , [place]. tel:[phone] Referring Provider: Emilie Way, [address] [place] [address], [place], [address]. tel:[phone] Offic Cons New/estab Mod 40 Mi- CT & [place] [facility], [address] [place] [address] Dr [address] [place], [id number], [place] tel:[phone] [facility] Chronic venous hypertension (idiopathic) without complications of bilateral lower extremityRestl ess legs syndromePrurit us, unspecifiedPai n in left legCramp and spasmLocalized edema 5 Josue MARISCAL RVT, ANDRE Hammond. [facility] [address], [place], [place], [id number] , [place]. tel:[phone] Referring Provider: Emilie Way, [address] [place] [address], [place], [address]. tel:[phone] Line [place] [facility], [address] [place] [address] Dr [address] [place] Strong [place], [id number], [place] tel:[phone] [facility] Varicose veins of bilateral lower extremities with pain Josue MARISCAL, RVT, RPVI Manish. [address] [facility], [address], [facility] [place], [id number] , [place]. tel:[phone] Referring Provider: Emilie [place], [address] [facility], [place], [address]. tel:[phone] Family History Family Member Type Diagnosis Age At Onset No Information Payers Payer name Insurance type Covered alliance party ID Authorchela gomez(s) [facility] [id number] 25 [id number] Social History Type Description Quantity Date Captured [...]
[2025-01-12 08:01] VITALS: BMI 19.4
--- NOTE | 2025-01-12 08:01 | A.OFFVIS_ITS ---
Vital Signs 01/12/25 08:01 Height 5 ft 4 in Weight 113 lb BMI 19.4 Intake Visit Reasons: New Patient-left hip pain, Low back pain Intake Note: Harriet Jimenez) is a 54 year old male who presents with complaints of progressively worsening low back pain which radiates down his left leg to his left foot. He also has intermittent left groin pain. The patient states that he 1st injured his low back approximately ?30 years ago? while living in [place]. He did not undergo back surgery at that time. He also reports intermittent weakness in his left leg. He has been to formal physical therapy which gave him minimal relief. He has also tried Tylenol and anti-inflammatory medicines which gave him minimal relief. He has failed the last 6 weeks of conservative treatment. The patient states that his low back pain is now interfering with his activities of daily living and his ability to sleep well through the night. today as a new patient for left hip pain. Patient was referred by [facility] 10/12/24, at their visit he was referred to physical therapy and had x rays. Patient reports ongoing pain for about 1 year now. Flag Maker Required: Yes Flag Maker Language: Dovetail Machine Operator Name: Michelle Cevallos - [id number] Allergies black pepper Allergy (Severe, Verified 01/12/25 08:02) Anaphylaxis Penicillins (PENICILLINS) Allergy (Intermediate, Verified 01/12/25 08:02) HIVES,SWELLING sumatriptan (SUMATRIPTAN) Adverse Reaction (Severe, Verified 01/12/25 08:02) PT STATES HEART ATTACK Medication List - Last Reconciled 01/12/25 by Nakul Velasco MD djkiydfnjf-zewglseecwsqp-kmzm 50-300-40 mg (Fioricet) 1 cap PO Q4-6H PRN cabotegravir ER (Apretude) 600 mg IM [id number] cholecalciferol (vitamin D3) 1,250 mcg PO Q2W famotidine (Pepcid) 40 mg PO BEDTIME galcanezumab-gnlm (Emgality) 300 mg (3 mL) subcut QMONTH 30 days linaclotide (Linzess) 290 mcg PO QAM 30 days fcbuyl-omifbalk-tbaizux 3,000-9,500- 15,000 unit (Creon) 2 caps PO BID 30 days magnesium oxide 400 mg PO BEDTIME 30 days naratriptan take 1/2 - 1 tab at onset of headache; if no relief may repeat 1 tab after at least 4 hrs; max = 2 tabs/24 hrs orally PRN; 30 days Oxygen Home Use Start home O2 at 15-25 L/min via non-rebreather facemask x's 15- 20 minutes at onset of cluster headache attack. Patient will require both M tanks and E tanks. sucralfate 20 mL PO DAILY PRN PFSH Medical History Erosive esophagitis Abdominal pain Sleep difficulties Upper abdominal pain Vomiting LEE (dyspnea on exertion) Arthritis Occipital neuralgia of left side New onset headache Diverticulosis of colon Chronic, continuous use of opioids Chronic GERD Palpitations Hypotension History of palpitations Dysphagia Disc degeneration, lumbar Spondylosis of lumbar spine Depression Past heart attack Hyperlipemia Erosive osteoarthritis of hands, bilateral GERD (gastroesophageal reflux disease) Hypertension Surgical History History of cholecystectomy Hx of colonoscopy History of esophagogastroduodenoscopy (EGD) H/O bilateral mastectomy H/O: hysterectomy Family History Mother Hypertension Breast cancer Maternal Grandmother Myocardial infarct Skin cancer Sister Heart problem Breast cancer Family/Other Esophageal cancer Social History Household Members: Family Housing: Apartment Alcohol intake: never Patient Tobacco Use Status: Former Tobacco user Substance Use Type: Marijuana service: No Physical Exam Vital Signs: BMI result Body Mass Index 19.4 Const Other: Well-nourished well-developed very friendly male awake alert and oriented x3 in no acute distress Back/Spine/Pelvis Other: Low back examination shows left-sided paraspinal muscle tenderness, pain with range of motion, positive straight leg raise test on the left at 70 degrees, 4/5 strength with testing of his left hip flexors and knee extensors when compared to 5/5 strength on his right side Extrem Other: Left hip examination shows full range of motion when compared to his right hip, mild tenderness over his bursa, no overlying skin lesions Results Reviewed Results Reviewed: X-rays of the patient's left hip show mild diffuse degenerative changes as well as a small calcium deposit just superior to the greater trochanter, no acute bony abnormalities Assessment & Plan Assessment & Plan (1) Low back pain radiating to left leg: Code(s): M54.50 - Low back pain, unspecified; M79.605 - Pain in left leg Category: Medical Plan Deloris presents with progressively worsening low back pain which radiates down his left leg to his left foot as well as associated left leg weakness possibly due to lumbar stenosis or a disc herniation. Thus, I will send the patient for an MRI of his lumbar spine for further evaluation. I will see him back once the MRI is completed to discuss the findings and treatment options. Feel free to call me at any time should questions regarding his orthopedic management arise. I spent 22 minutes in reviewing the patient's records and imaging studies, seeing the patient and documenting in the medical record. Orders: Orders MR lumbar spine wo con 01/13/25 M54.50 - Low back pain, unspecified, M79.605 - Pain in left leg Coding Level of Care Code New Pt Level 3 (40223) Complex EM visit Add On G2211 Diagnoses Low back pain radiating to left leg M54.50; M79.605
--- OUTSIDE RECORDS SUMMARY | 2025-01-12 08:03 | XMS_ITS | Encounter Summary ---
Author Organization [employer] Address [address] [place] [address] Care Team Providers Care Pin Machine Operator Name Role Phone Emilie Davis MD Primary Care Provider +1- [phone] Morales Echavarria SLURRY TANK OPERATOR Unavailable Unavailable August Unavailable Fred Castanon Unavailable Reason for Visit * Reason Onset Date Comments Referral 07/20/2024 Encounter Details Date Type Department Care Team (Late st Contact Info) Description 07/20/2024 Telephone [facility] [address] [place] [address] Emilie Davis MD 230 [place] [address] Referral Social History Tobacco Use Types Packs/Day [...] 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 Contact pt at [phone] documented in this encounter Plan of Treatment Upcoming Encounters Date Type Department Care Team (Late st Contact Info) Description 01/12/2025 9:30 AM EDT Office Visit [facility] [address] [place] [address] Lauren Borrero FNP [address] [place] [address] 01/22/2025 9:00 AM EDT Clinical Support [facility] [address] [place] [address] Medina Lewis, RONALD [address] [place] [address] documented as of this encounter Visit Diagnoses Not on filedocumented in this encounter Additional Health Concerns Assessment Noted Time PHQ-9 Depression Total Score: 3 04/30/20 23 9:17 AM EST documented as of this encounter Care Teams Pin Machine Operator Relationship Specialty Start Date End Date Emilie Davis MD [address] [place] [address] PCP - General Family Medicine 05/13/18 Morales Echavarria FNP [address] [place] [address] Nurse Practitioner Family Medicine 04/16/23August [address] [place] [address] Gastroenterology 05/26/24 Fred Castanon [address] [place] [address] 07/21/24 documented as of this encounter
--- OUTSIDE RECORDS SUMMARY | 2025-01-12 08:03 | XMS_ITS | Encounter Summary ---
Author Organization [facility] Address [address] [place] [address] Phone Care Team Providers Care Fourdrinier Tender Name Role Phone Emilie Davsi MD Primary Care Provi baldomero Encounter Details Date Type Department Care Team (Late st Contact Info) Description 10/28/2018 Procedure Pass OR Admitting Dept - Virtual Department [address] [place] [address] Social History Tobacco Use Types Packs/Day Years [...] on filedocumented in this encounter Care Teams Fourdrinier Tender Relationship Specialty Start Date End Date Emilie Davis MD [address] [place] [address] PCP - General Family Medicine 06/03/18 documented as of this encounter Additional Source Comments The information contained in this document represents components of the legal health record. It is not the complete legal health record.[facility]
--- OUTSIDE RECORDS SUMMARY | 2025-01-12 08:03 | XMS_ITS | Encounter Summary ---
Author Organization [employer] Address [address] [place] [address] Care Team Providers Care Lower School Spanish Teacher Name Role Phone Emilie Davis MD Primary Care Provider +1- [phone] Morales Echavarria Unavailable Unavailable August Unavailable Fred Castanon Unavailable Reason for Visit * Reason Onset Date Comments Call Back Request 01/07/2025 Injectable PrEP Communication 01/07/2025 Encounter Details Date Type Department Care Team (Late st Contact Info) Description 01/07/2025 Telephone [facility] [address] [place] [address] Emilie Davis MD 230 [place], [place] [phone] Call Back Request; Injectable PrEP Communication Social [...] the past 12 months, has t he [employer], gas, oil or water company threatened to [...] 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 Apretude scheduled to be delivered 01/18/25. Pt is scheduled for injection 01/22/25. * Telephone Encounter - Ernie Curry - 01/07/2025 3:02 PM EDT Tc from Ellyn at [facility] requesting a call back to discuss delivery of Apretude toophysician office. Contact Ellyn at [phone] documented in this encounter Plan of Treatment Upcoming Encounters Date Type Department Care Team (Late st Contact Info) Description 01/12/2025 9:30 AM EDT Office Visit [facility] [address] [place] [address] Lauren Borrero FNP 230 [place] [address] 01/22/2025 9:00 AM EDT Clinical Support [facility] [address] [place] [address] Medina Lewis, RONALD [address] [place] [address] documented as of this encounter Visit Diagnoses Not on filedocumented in this encounter Additional Health Concerns Assessment Noted Time PHQ-9 Depression Total Score: 3 04/30/20 9:17 AM EST documented as of this encounter Care Teams Lower School Spanish Teacher Relationship Specialty Start Date End Date Emilie Davis MD [address] [place] [address] PCP - General Family Medicine 05/13/18 Morales Echavarria FNP [address] [place] [address] Nurse Practitioner Family Medicine 04/16/23August [address] [place] [address] Gastroenterology 05/26/24 Fred Castanon [address] [place] [address] 07/21/24 documented as of this encounter
--- OUTSIDE RECORDS SUMMARY | 2025-01-12 08:03 | XMS_ITS | Clinical Summary ---
Author Organization [facility] Address [address] [address] Phone Care Team Providers Care Rehab Care Assistant Name Role Phone Emilie Davis MD [...] DEPRESSION SCREENING 1981 SMOKING Hx and SMOKELESS TOBACCO SCREENING 1982 HEPATITIS C SCREENING 1987 HIV ONE-TIME SCREENING (18-6 5 YEARS) 1987 PAP SMEAR 1990 MAMMOGRAM 2009 COLOGUARD 2014 COLONOSCOPY 2014 COLORECTAL CANCER SCREENING 2014 FIT TEST 2014 FOBT 2014 SIGMOIDOSCOPY 2014 VIRTUAL COLONOSCOPY 2014 PNEUMOCOCCAL VACCINES (50+ years) (2 of 2 - PCV) 2019 09/17/2017 ZOSTER VACCINES (1 of 2) 2019 INFLUENZA VACCINE (#1) 2024 0, 03/31/2018 COVID-19 VACCINE (2 - 2024-2 6 season) 2025 09/14/2020 Adult Td,Tdap Booster 06/18/2029 06/18/2019 HEPATITIS [...] ACO C3 ACO C3 ACO C3 ACO [facility] C3 ACO [employer] Advance Directives For more information, please contact: [phone] (9AM - 5PM [facility], Saturday-Saturday) * Full Code (Presumed) (Latest Code Status on File) Date Activated Date Inactivated Comments 10/28/2018 9:51 AM 10/28/2018 7:25 PM Care Teams Rehab Care Assistant Relationship Specialty Start Date End Date Bowie, Emilie Way MD [address] [place] [address] PCP - General Family Medicine 06/03/18 Additional Source Comments The information contained in this document represents components of the legal health record. It is not the complete legal health record.[facility]
--- OUTSIDE RECORDS SUMMARY | 2025-01-12 08:03 | XMS_ITS | Encounter Summary ---
Author Organization [employer] Address 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 Not on file Not on file documented as of this encounter Plan of Treatment Upcoming Encounters Date Type Department Care Team (Late st Contact Info) Description 01/12/2025 9:30 AM EDT Office Visit [facility] [address] [place] [address] Lauren Borrero FNP [address] [place] [address] 01/22/2025 9:00 AM EDT Clinical Support [facility] [address] [place] [address] Medina Lewis, RN 230 [place] [address] documented as of this encounter Procedures Procedure Name Priority Date/Time Associated Diagnosis Comments XR ABDOMEN 2V+ Routine 01/08/2025 10:50 AM EDT SED RATE BY MODIFIED WESTERGREN Routine 01/08/2025 10:47 AM EDT C-REACTIVE PROTEIN Routine 01/08/2025 10 :47 AM EDT LIPASE Routine 01/08/2025 10:47 AM EDT AMYLASE Routine 01/08/2025 10:47 AM EDT documented in this encounter Results * XR Abdomen 2 View minimum (01/08/2025 10:50 AM EDT) Anatomical Region Laterality Modality Abdomen Radiographic Aurora ging 01/08/2025 10:5 0 AM EDT Narrative 01/08/2025 12:26 PM EDT [address] [address] XRay Report Signed Patient: Harriet Valdez MR#: [id number] : 1970 Acct:[id number] Age/Sex: 54 / F ADM Date: 01/08/25 Loc: JACQUELYN.ABIGAIL Attending Dr: Aida LEMOS-Cristina Ordering Physician: Aida Orozco Date of Service: 01/08/25 Procedure(s): XR abdomen min 2V Accession Number(s): [id number] cc: Emilie Davis MD; Aida Orozco EXAMINATION: XR ABDOMEN 2 VIEWS SUPINE ERECT HISTORY: K59.09 - Other constipation COMPARISON: Comparison is made with the prior examination dated 10/02/2024. FINDINGS: Supine and upright views of the abdomen are submitted. The bowel gas pattern is unremarkable, without evidence of mechanical obstruction. There is no free intraperitoneal gas. There is a large amount stool throughout the colon. There is a surgical clip in the right upper quadrant. There is a calcified granuloma at the right lung base. There are no abnormal soft tissue masses. The bones are intact. XR/XR abdomen min 2V IMPRESSION: Large amount of stool throughout the colon. Electronically signed by: Manish Deras MD 01/08/2025 12:23 PM EDT Dictated By: Manish Deras MD Signed By: <Electronically signed by Manish Deras MD in OV> 01/08/25 1223 DD/ 1050 TD/TT: 01/08/25 1057 Comparison Shopper: Procedure Note Donotuseinterpreter, Image - 01/08/[address] [address] XRay Report Signed Patient: Harriet ValdezMR#: [id number] : 1970Acct:[id number] Age/Sex: 54 / FADM Date: 01/08/25 Loc: HO.XRAY Attending Dr: Aida ASH Ordering Physician: Aida Orozco Date of Service: 01/08/25 Procedure(s): XR abdomen min 2V Accession Number(s): [id number] cc: Emilie Davis MD; Aida Orozco EXAMINATION: XR ABDOMEN 2 VIEWS SUPINE ERECT HISTORY: K59.09 - Other constipation COMPARISON: Comparison is made with the prior examination dated 10/02/2024. FINDINGS: Supine and upright views of the abdomen are submitted. The bowel gas pattern is unremarkable, without evidence of mechanical obstruction. There is no free intraperitoneal gas. There is a large amount stool throughout the colon. There is a surgical clip in the right upper quadrant. There is a calcified granuloma at the right lung base. There are no abnormal soft tissue masses. The bones are intact. XR/XR abdomen min 2V IMPRESSION: Large amount of stool throughout the colon. Electronically signed by: Manish Deras MD 01/08/2025 12:23 PM EDT Dictated By: Manish Deras MD Signed By: <Electronically signed by Manish Deras MD in OV> 01/08/25 1223 DD/ 1050 TD/TT: 01/08/25 1057 Comparison Shopper: us [facility] External Provider IMG XR PROCEDURES Edited Result - Final * (ABNORMAL) Amylase (01/08/2025 10:47 AM EDT) Amylase 114(H) 28 - 100 U/L [facility] 01/08/2025 10:4 7 AM EDT 01/08/2025 10:47 AM EDT Generic External Data Provider LAB BLOOD ORDERAB LES Final Result [facility] [address] [place] [address] [phone] * Lipase (01/08/2025 10:47 AM EDT) Lipase 33 8 - 78 U/L [facility] 01/08/2025 10:4 7 AM EDT 01/08/2025 10:47 AM EDT us Generic External Data Provider LAB BLOOD ORDERAB LES Final Result Performing Organization Address [facility] Co de Phone Number [facility] [address] [place] [phone] * C-reactive Protein (01/08/2025 10:47 AM EDT) Pathologist [facility] C Reactive Protein <0.10 < or = 0.50 mg/dL [facility] 01/08/2025 10:4 7 AM EDT 01/08/2025 10:47 AM EDT Generic External Data Provider LAB BLOOD ORDERAB LES Final Result Performing Organization Address [facility] Co de Phone Number [facility] [address] [place] [phone] * Sed Rate by Modified Marcela (01/08/2025 10:47 AM EDT) Pathologist [facility] Erythrocyte Sedimentation Rate 9 0 - 20 MM/HR [facility] Comment:Patients with polycy themia and many hemoglobin abnormalitiesmay have depressed sed rates whereas patients with anemiamay have elevated sed rates. 01/08/2025 10:4 7 AM EDT 01/08/2025 10:47 AM EDT Generic External Data Provider LAB BLOOD ORDERAB LES Final Result Performing Organization Address [facility]/ZIP Co de Phone Number [facility] [address] [place] [phone] documented in this encounter Visit Diagnoses Not on filedocumented in this encounter Additional Health Concerns Assessment Noted Time PHQ-9 Depression Total Score: 3 04/30/20 23 9:17 AM EST documented as of this encounter Care Teams Pet Care Attendant Relationship Specialty Start Date End Date Emilie Davis MD [address] [place] [address] PCP - General Family Medicine 05/13/18 Morales Echavarria FNP [address] [place] [address] Nurse Practitioner Family Medicine 04/16/23Orozco, August [address] [address] Gastroenterology 05/26/24 Fred Castanon [address] [place] [address] 07/21/24 documented as of this encounter
--- OUTSIDE RECORDS SUMMARY | 2025-01-12 08:03 | XMS_ITS | Encounter Summary ---
Author Organization [employer] [facility] Address [address] [facility] [address] 7t [place] [address] Care Team Providers Care Satellite Television Installer Name Role Phone Emilie Davis MD Primary Care Provider +1- [phone] Morales Echavarria CARBONATING STONE CLEANER Unavailable Unavailable August Unavailable Fred Castanon Unavailable Reason for Visit * Reason Onset Date Comments Referral 07/18/2022 Encounter Details Date Type Department Care Team (Late st Contact Info) Description 07/18/2022 Telephone [facility] [address] [place] [address] Emilie Davis MD [address] [place] [address] Referral Social History Tobacco Use Types Packs/Day [...] [facility]. Please contact pt [phone] documented in this encounter Plan of Treatment Upcoming Encounters Date Type Department Care Team (Late st Contact Info) Description 01/12/2025 9:30 AM EDT Office Visit [address] [address] Lauren Borrero FNP [address] [place] [address] 01/22/2025 9:00 AM EDT Clinical Support [address] [address] Medina Lewis, RN [address] [place] [address] documented as of this encounter Visit Diagnoses Not on filedocumented in this encounter Care Teams Satellite Television Installer Relationship Specialty Start Date End Date Emilie Davis MD [address] [place] [address] PCP - General Family Medicine 05/13/18 Morales Echavarria FNP [address] [place] [address] Nurse Practitioner Family Medicine 04/16/23August [address] [place] [address] [address] [place] [address] Gastroenterology 05/26/24 Fred Castanon [address] [place] [address] 07/21/24 documented as of this encounter
--- OUTSIDE RECORDS SUMMARY | 2025-01-12 08:03 | XMS_ITS | Encounter Summary ---
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) Social [...] Description 01/12/2025 9:30 AM EDT Office Visit [address] [address] Lauren Borrero FNP [address] [place] [address] 01/22/2025 9:00 AM EDT Clinical Support [address] [address] Medina Lewis, RONALD [address] [place] [address] documented as of this encounter Visit Diagnoses Diagnosis Gender 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- Primary Encounter for immunization- Primary documented in this encounter Additional Health Concerns Assessment Noted Time PHQ-9 Depression Total Score: 3 04/30/20 23 9:17 AM EST documented as of this encounter Care Teams Residential Specialist Relationship Specialty Start Date End Date Emilie Davis MD [address] [place] [address] PCP - General Family Medicine 05/13/18 Morales Echavarria FNP [address] [place] [address] Nurse Practitioner Family Medicine 04/16/23 Pam Aida [address] 3rd [place] [address] Gastroenterology 05/26/24 Fred Castanon [address] 3rd [place] [address] 07/21/24 documented as of this encounter
--- OUTSIDE RECORDS SUMMARY | 2025-01-12 08:03 | XMS_ITS | Encounter Summary ---
Author Organization [employer] [facility] Address [address] [facility] 7t [place] [address] Care Team Providers Care Bridge Engineer Name Role Phone Emilie Davis MD Primary Care Provider +- [phone] Morales Echavarria Unavailable Unavailable August Unavailable Fred Castanon Unavailable Encounter Details Date Type Department Care Team (Late st Contact Info) Description 05/27/[address] [address] Emilie Davis MD [address] [place] [address] [phone] Social History Tobacco Use Types Packs/Day Years [...] Description 01/12/2025 9:30 AM EDT Office Visit [address] [phone] Lauren Borrero FNP 230 [place], [place] [phone] 01/22/2025 9:00 AM EDT Clinical Support [address] [phone] Medina Lewis, RONALD 230 [place] [address] documented as of this encounter Procedures Procedure Name Priority Date/Time Associated Diagnosis Comments COLONOSCOPY Routine 01/30/2018 HPV HIGH RISK PCR Routine 12/06/2017 12: 00 AM EDT PAP SMEAR Routine 12/06/2017 12:00 AM EDT documented in this encounter Results * Colonoscopy (01/30/2018) Colonoscopy normal Historical Provider HEALTH MAINTENANCE Final Result * HPV High Risk PCR (12/06/2017 12:00 AM EDT) Swab [facility] Provider LAB MICROBIOLOGY - GENERA L ORDERABLES Final Result IMAGING * Pap Smear (12/06/2017 12:00 AM EDT) Swab Historical Provider LAB CYTOLOGY ORDERABLES F inal Result [facility] [address] [place] [phone] documented in this encounter Visit Diagnoses Not on filedocumented in this encounter Care Teams Bridge Engineer Relationship Specialty Start Date End Date Emilie Davis MD [address] [place] [phone] PCP - General Family Medicine 05/13/18 Morales Echavarria FNP [address] [place] [address] 68165 Nurse Practitioner Family Medicine 04/16/[address] [place] [address] [place] [address] Gastroenterology 05/26/24 Fred Castanon [address] [place] [address] [address] [place] [address] 07/21/24 documented as of this encounter
--- OUTSIDE RECORDS SUMMARY | 2025-01-12 08:03 | XMS_ITS | Encounter Summary ---
Author Organization [employer] [facility] Address 75 [facility] 7t [place] [address] Care Team Providers Care Director Oracle Database Name Role Phone Emilie Davis MD Primary Care Provider +- [phone] Morales Echavarria SEWAGE RETICULATION DRAFTING OFFICER Unavailable Unavailable August Unavailable Fred Castanon Unavailable Reason for Visit * Reason Comments Med Refill Encounter Details Date Type Department Care Team (Late st Contact Info) Description 06/27/2022 Refill [facility] [address] [place] [address] Emilie Davis MD [address] [place] [address] [phone] Social History Tobacco Use Types Packs/Day Years [...] Description 01/12/2025 9:30 AM EDT Office Visit [facility] [address] [place] [address] [phone] Lauren Borrero FNP 230 [place] [address] 01/22/2025 9:00 AM EDT Clinical Support [address] [address] Medina Lewis, RN 230 [place] [address] documented as of this encounter Visit Diagnoses Not on filedocumented in this encounter Care Teams Director Oracle Database Relationship Specialty Start Date End Date Emilie Davis MD [address] [place] [phone] PCP - General Family Medicine 05/13/18 Morales Echavarria FNP [address] [place] [address]37 Nurse Practitioner Family Medicine 04/16/[address] [place] [address] Gastroenterology 05/26/24 Fred Castanon [address] [place] [address] 07/21/24 documented as of this encounter
--- OUTSIDE RECORDS SUMMARY | 2025-01-12 08:03 | XMS_ITS | Encounter Summary ---
Author Organization [employer] [facility] Address 75 [facility] 7t [place] [address] Care Team Providers Care Immunologist Name Role Phone Emilie Davis MD Primary Care Provider +1- [phone] Morales Echavarria Unavailable Unavailable August Unavailable Fred Castanon Unavailable Encounter Details Date Type Department Care Team (Late st Contact Info) Description 11/28/2022 Abstract [facility] [address] [place] [address] Emilie Davis MD 230 [place] [address] Social History Tobacco Use Types Packs/Day Years [...] 9:30 AM EDT Office Visit [facility] [address] [place] [address] Lauren Borrero FNP 230 [place] [address] 01/22/2025 9:00 AM EDT Clinical Support [facility] [address] [place] [address] Medina Lewis, RN 230 [place] [address] documented as of this encounter Visit Diagnoses Not on filedocumented in this encounter Additional Health Concerns Assessment Noted Time PHQ-9 Depression Total Score: 19 023 9:24 AM EDT documented as of this encounter Care Teams Immunologist Relationship Specialty Start Date End Date Emilie Davis MD [address] [place] [address] PCP - General Family Medicine 05/13/18 Morales Echavarria FNP [address] [place] [address] 97[address] Nurse Practitioner Family Medicine 04/16/23August [address] [place] [address] 3rd [place] [address] Gastroenterology 05/26/24 Fred Castanon [address] [place] [address] 3[address] [place] [address] 07/21/24 documented as of this encounter
--- OUTSIDE RECORDS SUMMARY | 2025-01-12 08:03 | XMS_ITS | Encounter Summary ---
Author Organization [employer] Address 75 [facility] 7t [place] [address] Care Team Providers Care Supervisor Tank House Name Role Phone Emilie Davis MD Primary Care Provider +1- [phone] Morales Echavarria Unavailable Unavailable August Unavailable Fred Castanon Unavailable Reason for Visit * Reason Onset Date Comments Hospital Follow-up 01/04/2025 Encounter Details Date Type Department Care Team (Late st Contact Info) Description 01/04/2025 Telephone [facility] 230 [place] [address] Emilie Davis MD 230 [place], [place] [phone] Hospital Follow-up Social History Tobacco Use Types [...] Industry Job Start Date Job End Date [employer] Not on file Not on file Not on file documented as of this encounter Miscellaneous Notes * Telephone Encounter - Jayleen Giron - 01/04/2025 8:24 AM EDT Tc from pt requesting a HDF appt. Hospital: [facility] Date of admission: 12/29 Discharge date: 12/31 Diagnosed: Gastritis and inflammation of the pancreas *Send message to [facility] Clinical Care Coordinators documented in this encounter Plan of Treatment Upcoming Encounters Date Type Department Care Team (Late st Contact Info) Description 01/12/2025 9:30 AM EDT Office Visit [facility] [address] [place] [phone] Lauren Borrero FNP 230 [place] [address] 01/22/2025 9:00 AM EDT Clinical Support [facility] 230 [place] [address] Medina Lewis, RN 230 [place] [address] documented as of this encounter Visit Diagnoses Not on filedocumented in this encounter Additional Health Concerns Assessment Noted Time PHQ-9 Depression Total Score: 3 04/30/20 23 9:17 AM EST documented as of this encounter Care Teams Supervisor Tank House Relationship Specialty Start Date End Date Emilie Davis MD [address] [place] [address] PCP - General Family Medicine 05/13/18 Morales Echavarria FNP [address] [place] [address] 51287 Nurse Practitioner Family Medicine 04/16/23 Aida Orozco [address] [place] [address] Gastroenterology 05/26/24 Fred Castanon [address] [place] [address] 07/21/24 documented as of this encounter
--- OUTSIDE RECORDS SUMMARY | 2025-01-12 08:03 | XMS_ITS | Encounter Summary ---
Author Organization [employer] Address 75 [facility] 7t [place] [address] Care Team Providers Care Emergency Registrar Name Role Phone Emilie Davis MD Primary Care Provider +- [phone] Morales Echavarria HAIR BOILER Unavailable Unavailable August Unavailable Fred Castanon Unavailable Encounter Details Date Type Department Care Team (Late st Contact Info) Description 04/22/2022 Orders Only [facility] [address] [place], [place] [phone] Emilie Davis MD [address] [place] [address] [phone] HSV (herpes simplex virus) anogenital infection (Primary [...] Description 01/12/2025 9:30 AM EDT Office Visit [facility] [address] [place] [address] [phone] Lauren Borrero FNP 230 [place], [place] [phone] 01/22/2025 9:00 AM EDT Clinical Support [facility] 230 [place] [address] Medina Lewis, RN 230 [place] [address] documented as of this encounter Visit Diagnoses Diagnosis HSV (herpes simplex virus) anogenital infection- Primary Herpes simplex without mention of complication Encounter for immunization- Primary documented in this encounter Care Teams Emergency Registrar Relationship Specialty Start Date End Date Emilie Davis MD [address] [place] [address] PCP - General Family Medicine 05/13/18 Morales Echavarria FNP [address] [place] [address] Nurse Practitioner Family Medicine 04/16/23 Aida Orozco [address] [place] [address] Gastroenterology 05/26/24 Fred Castanon [address] [place] [address] 07/21/24 documented as of this encounter
--- OUTSIDE RECORDS SUMMARY | 2025-01-12 08:03 | XMS_ITS | Encounter Summary ---
Author Organization [employer] Address 75 [facility] 7t [place] [address] Care Team Providers Care Developmental Training Counselor Name Role Phone Emilie Davis MD Primary Care Provider +1- [phone] Morales Echavarria Unavailable Unavailable August Unavailable Fred Castanon Unavailable Reason for Visit * Reason Comments Med Refill Encounter Details Date Type Department Care Team (Late st Contact Info) Description 01/01/[address] [facility] 230 [place] [address] Emilie Davis MD 230 [place] [address] Social History Tobacco Use Types Packs/Day Years [...] 8:54 AM EDT T/C to patient via career technical education instructor regarding x-ray result. No answer, message left on voicemail to callRN team * Telephone Encounter - Werner Wayne RN - 01/02/2023 8:54 AM EDT ----- Message from Eriak Betts MD sent at 01/01/2023 8:32 PM [...] Description 01/12/2025 9:30 AM EDT Office [address] [facility] [address] [place] [phone] Lauren Borrero FNP [address] [place] [address] 01/22/2025 9:00 AM EDT Clinical Support [facility] [address] [place] [address] Medina Lewis, RONALD [address] [place] [address] documented as of this encounter Visit Diagnoses Not on filedocumented in this encounter Additional Health Concerns Assessment Noted Time PHQ-9 Depression Total Score: 19 023 9:24 AM EDT documented as of this encounter Care Teams Developmental Training Counselor Relationship Specialty Start Date End Date Emilie Davis MD [address] [place] [address] PCP - General Family Medicine 05/13/18 Morales Echavarria FNP [address] [place] [address] Nurse Practitioner Family Medicine 04/16/23August [address] [place] [address] [address] [place] [address] Gastroenterology 05/26/24 Fred Castanon [address] 3rd [place] [address] 07/21/24 documented as of this encounter
--- OUTSIDE RECORDS SUMMARY | 2025-01-12 08:03 | XMS_ITS | Encounter Summary ---
Author Organization [employer] Address [address] [facility] [address] 7t [place] [address] Care Team Providers Care Mortgage Collector Name Role Phone Emilie Davis MD Primary Care Provider +1- [phone] Morales Echavarria CHECK OUT CASHIER Unavailable Unavailable August Unavailable Fred Castanon Unavailable Reason for Visit * Reason Onset Date Comments Appointment Request 11/26/2024 Encounter Details Date Type Department Care Team (Late st Contact Info) Description 11/26/2024 Telephone [facility] 230 [place] [address] Emilie Davis MD 230 [place] [address] Appointment Request Social History Tobacco Use Types [...] 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 file Not on file Not on file documented as of this encounter Miscellaneous Notes * Telephone Encounter - Ernie Curry - 11/26/2024 9:25 AM EDT Tc from pt requesting to reschedule todays apt 11/26 Contact pt at [phone] (afghan) documented in this encounter Plan of Treatment Upcoming Encounters Date Type Department Care Team (Late st Contact Info) Description 01/12/2025 9:30 AM EDT Office Visit [facility] [address] [place] [address] Lauren Borrero FNP 230 [place] [address] 01/22/2025 9:00 AM EDT Clinical Support [facility] 230 [place] [address] Medina Lewis, RN 230 [place] [address] documented as of this encounter Visit Diagnoses Not on filedocumented in this encounter Additional Health Concerns Assessment Noted Time PHQ-9 Depression Total Score: 3 04/30/20 23 9:17 AM EST documented as of this encounter Care Teams Mortgage Collector Relationship Specialty Start Date End Date Emilie Davis MD [address] [place] [address] PCP - General Family Medicine 05/13/18 Morales Echavarria FNP [address] [place] [address] Nurse Practitioner Family Medicine 04/16/23 Aida Orozco [address] [place] [address] Gastroenterology 05/26/24 Fred Castanon [address] [place] [address] 07/21/24 documented as of this encounter
--- OUTSIDE RECORDS SUMMARY | 2025-01-12 08:03 | XMS_ITS | Encounter Summary ---
Author Organization [employer] Address [address] [facility] [address] 7t [place] [address] Care Team Providers Care Scaler Packer Name Role Phone Emilie Davis MD Primary Care Provider +1- [phone] Morales Echavarria Unavailable Unavailable August Unavailable Fred Castanon Unavailable Encounter Details Date Type Department Care Team (Late st Contact Info) Description 03/25/2023 Orders Only [facility] 230 [place] [address] Emilie Davis MD 230 [place] [address] Social History Tobacco Use Types Packs/Day Years [...] Description 01/12/2025 9:30 AM EDT Office Visit [facility] [address] [place] [address] Lauren Borrero FNP [address] [place] [address] 01/22/2025 9:00 AM EDT Clinical Support [facility] [address] [place] [address] Medina Lewis, RONALD [address] [place] [address] documented as of this encounter Visit Diagnoses Not on filedocumented in this encounter Additional Health Concerns Assessment Noted Time PHQ-9 Depression Total Score: 10 023 9:08 AM EDT documented as of this encounter Care Teams Scaler Packer Relationship Specialty Start Date End Date Emilie Davis MD [address] [place] [address] PCP - General Family Medicine 05/13/18 Morales Echavarria FNP [address] [place] [address] Nurse Practitioner Family Medicine 04/16/[address] 3rd [place] [address] Gastroenterology 05/26/24 Fred Castanon [address] 3rd [place] [address] 07/21/24 documented as of this encounter
--- OUTSIDE RECORDS SUMMARY | 2025-01-12 08:04 | XMS_ITS | Clinical Summary ---
Author Organization [employer] Address [address] [place] [address] Care Team Providers Care Photographic Process Worker Name Role Phone Emilie Davis MD Primary Care Provider [phone] Morales Echavarria Unavailable Unavailable August Unavailable Fred Castanon Unavailable Allergies Active Allergy Reactions Criticality Noted Date Comments Penicillins Anaphylaxis,Rash High 05/16/2017 Sumatriptan 10/28/2018 Medications * This document contains information received from the source organization and may not represent a complete record from that organization. Needle, Disp, (BD Disp [place]) 25G X 5/8 miscIndication s:Gender dysphoria in [...] Active cholecalcifero l (Vitamin D-3) 1.25 MG (43300 UT) capsule Take 1 capsule by mouth [...] or necrosis 12/31/2024 Overview (12/31/2024): -dx at [facility] 12/2024 Patient admitted to general medical floor [...] XR 05/20/24 Coronary artery disease invo lving chickahominy indian tribe heart without angina pectoris 05/20/2024 Overview (10/15/2024): Hx NSTE [place] 09/2017 -continue oscar -Stress test without evidence [...] (A) 03/18/2024 RPRQUANT Non-Reactive 03/18/2024 -will call [facility] regarding need for testing 03/23/24 [...] care facilitated by Al[facility]. -dental home is [facility] -health care proxy filed 03/16/24 Assessment & Plan (03/17/2024 6:12 AM EST): -next physical exam due after 03/16/2025 -eye care facilitated by [facility]. -dental home is [facility] -health care proxy filed 03/16/24 Assessment & Plan (03/22/2023 9:17 AM EST): -next physical exam due after 12/07/2023. -eye care facilitated by Aless[facility]. -dental home is outside of [facility] Assessment & Plan (12/06/2022 10:19 AM EDT): -next physical exam dueafter 12/07/2023. -eye care facilitated by Alessio. -dental home is outside of [facility] Hx of hepatitis C 11/26/2022 Overview [...] rays suggests osteoarthritis. Seen by rheumatology in [place]. Ibuprofen and NSAIDs cause gastritis. Minimal relief with acetaminophen. He was referred back to rheumatology in [place] 08/23/2020 but provider left the area. started on Tramadol. Take 3 times per week. He is not taking at this time. Assessment & Plan (03/17/2024 6:08 AM EST): X rays suggests osteoarthritis. Seen by rheumatology in [place]. Ibuprofen and NSAIDs cause gastritis. Minimal relief with acetaminophen. He was referred back to rheumatology in [place] 08/23/2020 but provider left the area. started on Tramadol. Take 3 times per week. He is not taking at this time. Assessment & Plan (03/22/2023 9:15 AM EST): X rays suggests osteoarthritis. Seen by rheumatology in [place]. Ibuprofen and NSAIDs cause gastritis. Minimal relief with acetaminophen. He was referred back to rheumatology in [place] 08/23/2020 but provider left the area. started on Tramadol. Take 3 times per week. Will need COT in the future. Assessment & Plan (12/06/2022 8:54 AM EDT): X rays suggests osteoarthritis. Seen by rheumatology in [place]. Ibuprofen and NSAIDs cause gastritis. Minimal relief with acetaminophen. He was referred back to rheumatology in [place] 08/23/2020 but provider left the area. started on Tramadol. Take 3 times per week. Will need COT in the future. Assessment & Plan (10/11/2022 9:58 AM EDT): X rays suggests osteoarthritis. Seen by rheumatology in [place]. Ibuprofen and NSAIDs cause gastritis. Minimal relief with acetaminophen. He was referred back to rheumatology in [place] 08/23/2020 but provider left the area. started [...] Now with palpitations. Will refer to his telephone instrument supervisor for bradycardia. Assessment & Plan (03/22/2023 9:16 AM EST): Sinus bradycardia and asymptomatic. Pt states he always has slow heart rate Pt repots heart rate in 40s recorded with home BP monitor with symptoms of dizziness recorded at home. Now with palpitations. Will refer to his telephone instrument supervisor for bradycardia. Assessment & Plan (12/06/2022 8:54 AM EDT): Sinus bradycardia and asymptomatic. Pt states he always has slow heart rate Pt repots heart rate in 40s recorded with home BP monitor with symptoms of dizziness recorded at home. Now with palpitations. Will refer to his telephone instrument supervisor for bradycardia. Assessment & Plan (10/11/2022 9:58 AM EDT): Sinus bradycardia and asymptomatic. Pt states he always has slow heart rate Pt repots heart rate in 40s recorded with home BP monitor with symptoms of dizziness recorded at home. Now with palpitations. Will refer to his telephone instrument supervisor for bradycardia. Generalized abdominal pain 06/25/2021 Overview [...] for GI. Insurance no longer accepted at [facility]. -EGD scheduled for December 2021. -10/19/24 [...] for GI. Insurance no longer accepted at [facility]. -EGD scheduled for December 2021. Assessment [...] for GI. Insurance no longer accepted at [facility]. -EGD scheduled for December 2021. Assessment [...] for GI. Insurance no longer accepted at [facility]. -EGD scheduled for December 2021. Assessment [...] for GI. Insurance no longer accepted at [facility]. -EGD scheduled for December 2021. History of non-ST elevation myocardial infarctio n (NSTEMI) 06/25/2021 Overview (10/15/2024): Hx [place]STE [place] 09/[place]. See CAD for plan. Assessment & Plan (05/20/2024 4:29 PM EST): Hx [place]STE [place] 09/[place] -continue oscar -Stress test without evidence of ischemia 04/08/18 -he held statin and ASA due to GI upset -trial of restarting statin 01/[address] on 05/08/24 showed Coronary artery atherosclerosis. Pt wants to get reestablished with cardiology. -referral sent 05/20/24 Assessment & Plan (03/22/2023 9:17 AM EST): Hx NSTE [place] 09/[place] -continue oscar -Stress test without evidence of ischemia 04/08/18 -he held statin and ASA due to GI upset -trial of restarting statin 01/2019 Assessment & Plan (12/06/2022 8:55 AM EDT): Hx NSTE [place] 09/2017 -continue oscar -Stress test without evidence of ischemia 04/08/18 -he held statin and ASA due to GI upset -trial of restarting statin 01/2019 Assessment & Plan (10/11/2022 9:57 AM EDT): Hx NSTE [place] 09/2017 -continue oscar -Stress test without evidence of ischemia 04/08/18 -he held statin and ASA due to GI upset -trial of restarting statin 01/2019 Seasonal allergies 06/25/2021 Gender 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 10/03/2018 Overview (03/26/2024): Pt identifies as male and is changed his name in [place] October 2020. -He restarted testosterone 08/2020 -S/p chest reconstruction 10/2018 -Testosterone was 654 on 10/2022 Lab Results Component Value Date TESTTOTAL 1641 (A) 03/18/2024 HGB 16.2 (H) 03/18/2024 HGB 15.8 10/18/2022 HCT 47.3 (H) 03/18/2024 Goal testosterone levels 350-700ng/dl. Assessment & Plan (03/17/2024 6:12 AM EST): Pt identifies as male and is changing his name in [place] October 2020. He restarted testosterone 08/2020 S/p chest reconstruction 10/2018 Pt would like to switch small needle to subcutaneous instead. 25 gague needles sent 12/06/2022 Testosterone was 654 on 10/2022. Assessment & Plan (03/22/2023 9:16 AM EST): Pt identifies as male and is changing his name in [place] October 2020. He restarted testosterone 08/2020 S/p chest reconstruction 10/2018 Pt would like to switch small needle to subcutaneous instead. 25 gague needles sent 12/06/2022 Testosterone was 654 on 10/2022. Assessment & Plan (12/06/2022 11:18 AM EDT): Pt identifies as male and is changing his name in [place] October 2020. He restarted testosterone 08/2020 S/p chest reconstruction 10/2018 Pt would like to switch small needle to subcutaneous instead. 25 gague needles sent 12/06/2022 Testosterone was 654 on 10/2022. Assessment & Plan (10/11/2022 9:59 AM EDT): Pt identifies as male and is changing his name in [place] October 2020. He restarted testosterone 08/2020 S/p chest reconstruction 10/[address] scan, lung 10/04/2017 Overview (05/20/2024): -Ct scan in [facility] on 12/25/2017 showed multiple indeterminate nodules, [...] 11/15/23 and NO SHOW. Pt can call [phone] to schedule mariely. number given to call 03/16/24 -CT 05/08/24 No acute intrathoracic findings. Calcified granulomas present bilaterally. No suspicious pulmonary nodule identified. Air-fluid level present within the midthoracic esophagus can be associated with gastroesophageal reflux disease and esophageal dysmotility. Coronary artery atherosclerosis. Assessment & Plan (05/20/2024 4:05 PM EST): -Ct scan in [place] [facility] on 12/25/2017 showed multiple indeterminate nodules, [...] 11/15/23 and NO SHOW. Pt can call [phone] to schedule mariely. number given to call 03/16/24 -CT 05/08/24 No acute intrathoracic findings. Calcified granulomas present bilaterally. No suspicious pulmonary nodule identified. Air-fluid level present within the midthoracic esophagus can be associated with gastroesophageal reflux disease and esophageal dysmotility. Coronary artery atherosclerosis. Assessment & Plan (03/17/2024 6:13 AM EST): -Ct scan in [place] [facility] on 12/25/2017 showed multiple indeterminate nodules, [...] 11/15/23 and NO SHOW. Pt can call [phone] to schedule mariely. number given to call 03/16/24 Assessment & Plan (03/22/2023 9:16 AM EST): -Ct scan in [place] [facility] on 12/25/2017 showed multiple indeterminate nodules, largest was solid and measured 2mm. -Given that the Pt has a tobacco Hx and quit in 2018 we referrred to pulmonology that was likely distrupted by the pandemic. -Will ordered repeat CT of chest to follow the nodles. Assessment & Plan (12/06/2022 10:18 AM EDT): -Ct scan in [place] [facility] on 12/25/2017 showed multiple indeterminate nodules, [...] referred for OP services and referral to [facility] Psychopharmacology clinic. Provided Crisis contact number [...] Encounters Date Type Department Care Team Description 01/08/2025 Orders Only GENERIC EXTERNAL DATA DEPARTMENT Provider, Generic External Data 01/07/[address] [address] Emilie Davis MD Call Back Request; Injectable PrEP Communication 01/04/2025 Patient Outreach [address] [address] Emilie Davis MD Transition Of Care (Tcm) (HDF unscheduled) 01/04/[address] [address] Emilie Davis MD Nurse Triage 01/04/[address] [address] Emilie Davis MD Hospital Follow-up 12/29/2024 Orders Only GENERIC EXTERNAL DATA DEPARTMENT Provider, Generic External Data 11/26/2024 9:30 AM EDT Clinical Support [address] [address] Medina Lewis, RN On pre-exposure prophylaxis for HIV (Primary Dx) 11/26/2024 Orders Only [facility] [address] [facility] [place] [address] Emilie Davis MD 11/26/2024 Travel 11/26/2024 Telephone [facility] [place] [address] Eimlie Davis MD Appointment Request 11/25/2024 Telephone [facility] [place] [address] Emilie Davis MD February11/16/2024 Telephone [facility] [place] [address] Medina Lewis RN 10/20/2024 Orders Only [facility] External Provider, [facility] Generalized abdominal pain (Primary Dx) 10/13/2024 Orders Only [facility] External Provider, [facility] History of non-ST elevation myocardial infarction (NSTEMI) (Primary Dx); Coronary artery disease involving chickahominy indian tribe coronary artery of chickahominy indian tribe heart without angina pectoris 10/12/2024 Orders Only [facility] External Provider, [facility] Acute non intractable tension-type headache (Primary Dx) [...] 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 Not on [...] Description 01/12/2025 9:30 AM EDT Office Visit [facility] [address] [place] [address] Lauren Borrero FNP [address] [place] [address] 01/22/2025 9:00 AM EDT Clinical Support [facility] [address] [place] [address] Medina Lewis, RN [address] [place] [address] Health Maintenance Due Date Last Done Comments CT Colonography 1970 FIT DNA/Cologuard 1970 FIT 1970 FOBT 1970 Sigmoidoscopy 1970 Disability Screening 1970 Pneumococcal Vaccine: 50+ Years (2 of 2 - PCV) 09/17/2018 09/17/2017 Colonoscopy 01/30/2023 01/30/2018 Colorectal Cancer Screening 01/30/2023 Zoster Vaccines (1 of 2) 02/01/2023 COVID-19 Vaccine (4 - season) 2025 06/05/2021, 10/11/2020, 09/14/2020 Influenza Vaccine (#1) 2025 06/18/2019, 2017 SDOH Screening 03/16/2025 03/16/2024 Alcohol/Substance Use Screening 05/20/2025 05/20/2024 Depression Screening 05/20/2025 05/20/2024, 04/30/20 23 Tobacco Screening 10/02/2025 10/02/2024 HPV/Cotest 03/22/2028 03/22/2023, 0711/2017, 12/06/2017 Pap Smear 03/22/2028 03/22/2023, 12/06/2017 DTaP/Tdap/Td [...] ABDOMEN 2V+ Routine 01/08/2025 10:50 AM EDT AMYLASE Routine 01/08/2025 10:47 AM EDT LIPASE Routine 01/08/2025 10:47 AM EDT C-REACTIVE PROTEIN Routine 01/08/2025 10 :47 AM EDT SED RATE BY MODIFIED WESTERGREN Routine 01/08/2025 10:47 AM EDT DRUG MONITOR, PANEL 1, SCREEN, URINE Routine [...] Relevant to Health Maintenance Results * XR Abdomen 2 View minimum (01/08/2025 10:50 AM EDT) Anatomical Region Laterality Modality Abdomen Radiographic Aurora ging 01/08/2025 10:5 0 AM EDT Narrative 01/08/2025 12:26 PM EDT [place] [address] XRay Report Signed Patient: Harriet Valdez MR#: [id number] : 1970 Acct:[id number] Age/Sex: 54 / F ADM Date: 01/08/25 Loc: HO.XRAY Attending Dr: Aida ASH Ordering Physician: Aida Orozco Date of Service: 01/08/25 Procedure(s): XR abdomen min 2V Accession Number(s): [id number] cc: Emilie Davis MD; Aida Orozco EXAMINATION: [...] Manish Deras MD 01/08/2025 12:23 PM EDT RP Dictated By: Manish Deras MD Signed By: <Electronically signed by Manish Deras MD in OV> 01/08/25 1223 DD/ 1050 TD/TT: 01/08/25 1057 Supervisor Paint Department: Procedure Note Donotuseinterpreter, Image - 01/08/2025 [place] [address] XRay Report Signed Patient: Ayaka Valdez#: [id number] : 1970Acct:[id number] Age/Sex: 54 / FADM Date: 01/08/25 Loc: HODEANGELO Attending Dr: Aida LEMOS-Cristina Ordering Physician: Aida Orozco Date of Service: 01/08/25 Procedure(s): XR abdomen min 2V Accession Number(s): [id number] cc: Emilie Davis MD; Aida Orozco EXAMINATION: [...] Manish Deras MD 01/08/2025 12:23 PM EDT RP Dictated By: Manish Deras MD Signed By: <Electronically signed by Manish Deras MD in OV> 01/08/25 1223 DD/ 1050 TD/TT: 01/08/25 1057 Supervisor Paint Department: [facility] External Provider IMG XR PROCEDURES Edited Result - Final * Sed Rate by Modified Marcela (01/08/2025 10:47 AM EDT) Erythrocyte Sedimentation Rate 9 0 - 20 MM/HR [facility] Comment:Patients with polycy themia and many hemoglobin abnormalitiesmay have depressed sed rates whereas patients with anemiamay have elevated sed rates. 01/08/2025 10:4 7 AM EDT 01/08/2025 10:47 AM EDT Generic External Data Provider LAB BLOOD ORDERAB LES Final Result Performing Organization Address [facility] Co de Phone Number [facility] [address] [place] [phone] * C-reactive Protein (01/08/2025 10:47 AM EDT) C Reactive Protein <0.10 < or = 0.50 mg/dL [facility] 01/08/2025 10:4 7 AM EDT 01/08/2025 10:47 AM EDT Generic External Data Provider LAB BLOOD ORDERAB LES Final Result Performing Organization Address [facility] Co de Phone Number [facility] [address] [place] [phone] * Lipase (01/08/2025 10:47 AM EDT) Only the most recent of2 resultswithin the time period is included. Lipase 33 8 - 78 U/L [facility] 01/08/2025 10:4 7 AM EDT 01/08/2025 10:47 AM EDT Generic External Data Provider LAB BLOOD ORDERAB LES Final Result Performing Organization Address City/[facility] Co de Phone Number [facility] [address] [place] [phone] * (ABNORMAL) Amylase (01/08/2025 10:47 AM EDT) Amylase 114(H) 28 - 100 U/L [facility] 01/08/2025 10:4 7 AM EDT 01/08/2025 10:47 AM EDT us Generic External Data Provider LAB BLOOD ORDERAB LES Final Result Performing Organization Address [facility] Co de Phone Number [facility] [address] [place] [phone] * (ABNORMAL) Drug Monitoring, Panel 1, Screen, Urine (12/29/2024 1:09 PM EDT) Opiate Screen Urine Not Detected Not Detect [facility] Comment:Opiate cut-off is 30 0 ng/mL.Positive results are unconfirmed and should not be used fornon-medical purposes. Barbiturates, Urine Not Detected Not Detect [facility] Comment:Barbiturate cut-off is 200 ng/mL.Positive results are unconfirmed and should not be used fornon-medical purposes. Phencyclidine Screen Urine Not Detected Not Detect [facility] Comment:Phencyclidine cut-of f is 25 ng/mL.Positive results are unconfirmed and should not be used fornon-medical purposes. Amphetamine Screen Urine Not Detected Not Detect [facility] Comment:Amphetamine cut-off is 1000 ng/mL.Positive results are unconfirmed and should not be used fornon-medical purposes. Benzodiazepines Screen Urine Not Detected Not Detect [facility] Comment:Benzodiazepine cut-o ff is 200 ng/mL.Positive results are unconfirmed and should not be used fornon-medical purposes. Cocaine Screen Urine Not Detected Not Detect [facility] Comment:Cocaine cut-off is 3 00 ng/mL.Positive results are unconfirmed and should not be used fornon-medical purposes. Cannabinoid Screen Urine POSITIVE(A) Not Detect [facility] Comment:Cannabinoid cut-off is 50 ng/mL.Positive results are unconfirmed and should not be used fornon-medical purposes. Methadone Screen, Urine Not Detected Not Detect ng/mL [facility] Comment:Methadone cut-off is 300 ng/mL.Positive results are unconfirmed and should not be used fornon-medical purposes. FENTANYL URINE Not Detected Not Detect [facility] Comment:Fentanyl cut-off is 1 ng/mL.Positive results are unconfirmed and should not be used fornon-medical purposes. Oxycodone Urine Screen Not Detected Not Detect ng/mL [facility] Comment:Oxycodone cut-off is 100 ng/mL.Positive results are unconfirmed and should not be used fornon-medical purposes. Buprenorphine Screen Not Detected Not Detect ng/mL [facility] Comment:Buprenorphine cut-of f is 5 ng/mL.Positive results are unconfirmed and should not be used fornon-medical purposes. 12/29/2024 1:09 PM EDT 12/29/2024 1:16 PM EDT us Generic External Data Provider LAB URINE ORDERAB LES Final Result Performing Organization Address City/State/[facility] Co de Phone Number [facility] [address] [place] [phone] * Urinalysis w/reflex microscopic (12/29/2024 1:09 PM EDT) Color Urine Yellow [facility] Appearance Urine Clear [facility] PH 8.0 5.0 - 9.0 [facility] Glucose Urine UA Negative Negative mg/dL [facility] Urine Blood Negative Negative [facility] Specific [place] - Urine 1.015 1.005 - 1.025 [facility] Urine Protein Negative Neg-Trace mg/dL [facility] Urine Ketones Negative Negative mg/dL [facility] Nitrite Urine Negative Negative [facility] Leukocyte Esterase Urine Negative Negative [facility] 12/29/2024 1:09 PM EDT 12/29/2024 1:16 PM EDT Narrative [facility] - 12/29/2024 1:22 PM EDT Urine, Clean Catch us Generic External Data Provider LAB URINE ORDERAB LES Final Result [facility] [address] [place] [phone] * CT Abdomen Pelvis w/ Contrast (12/29/2024 12:55 PM EDT) Anatomical Region Laterality Modality Body, Pelvis, Abdomen Computed T omography 12/29/2024 12:5 5 PM EDT Narrative 12/29/2024 1:42 PM EDT [address] [address] [address] Scan Report Signed Patient: Harriet Valdez MR#: [id number] : 1970 Acct:[id number] Age/Sex: 54 / F ADM Date: 12/29/24 Loc: .ED Attending Dr: Ordering Physician: Cheryl Cobb DO Date of Service: 12/29/24 Procedure(s): CT abdomen pelvis w IV con Accession Number(s): [id number] cc: Emilie aDvis MD; Cheryl Cobb DO Report Number: [id number]: Total DLP = 296.00 mGy-cm EXAMINATION: CT [...] 12/29/24 1340 DD/ 1255 TD/TT: 12/29/24 1329 Supervisor Paint Department: Procedure Note Donotuseinterpreter, Image - 12/29/[address] [address] [address] Scan Report Signed Patient: Harriet Valdez#: [id number] : 1970Acct:[id number] Age/Sex: 54 / FADM Date: 12/29/24 Loc: HO.ED Attending Dr: Ordering Physician: Cheryl Cobb DO Date of Service: 12/29/24 Procedure(s): CT abdomen pelvis w IV con Accession Number(s): [id number] cc: Emilie Davis MD; Cheryl Cobb Hardy [facility] Report Number: [id number]: Total DLP = 296.00 mGy-cm EXAMINATION: CT [...] 12/29/24 1340 DD/ 1255 TD/TT: 12/29/24 1329 Supervisor Paint Department: [facility] External Provider IMG CT PROCEDURES Final Result * (ABNORMAL) CBC auto differential (12/29/2024 10:00 AM EDT) White Blood Count 10.1 4.8 - 10.8 X10*3/uL [facility] Red Blood Count 4.83 4.20 - 5.50 X10*6/uL [facility] Hemoglobin 14.4 12.0 - 16.0 g/dl [facility] Hematocrit 43.0 37.0 - 47.0 % [facility] Mean Corpuscular Volume 89.0 80.0 - 98.0 fL [facility] Mean Corpuscular Hemoglobin 29.8 27.0 - 33.0 pg [facility] Mean Corpuscular HGB Conc 33.5 31.0 - 35.0 g/dl [facility] Red Cell Distribution Width 14.2 11.0 - 16.0 % [facility] Platelet Count 340 160 - 400 X10*3/uL [facility] Mean Platelet Volume 9.0(L) 9.4 - 12.3 fL [facility] Neutrophils Percent Auto 60.1 45 - 73 % [facility] Imm Gran Pct Auto 0.4 0.0 - 0.4 % [facility] Lymphocytes Percent Auto 32.8 20 - 40 % [facility] Monocytes Percent Auto 4.9 2 - 11 % [facility] Eosinophils Percent Auto 1.2 0 - 4 % [facility] Basophils Percent Auto 0.6 0 - 2 % [facility] NRBC Pct Auto 0.0 0.0 - 0.2 /100WBC [facility] Neutrophils Absolute Auto 6.1 2.0 - 8.3 x10*3/uL [facility] Imm Gran Abs Auto 0.04(H) 0.00 - 0.03 X10*3/uL [facility] Lymphocytes Absolute Auto 3.3 1.2 - 4.9 X10*3/uL [facility] Monocytes Absolute Auto 0.5 0.1 - 1.2 X10*3/uL [facility] Eosinophils Absolute Auto 0.1 0.0 - 0.4 X10*3/uL [facility] Basophils Absolute Auto 0.1 0.0 - 0.2 X10*3/uL [facility] NRBC Abs Auto 0.000 0.0 - 0.012 X10*3/uL [facility] 12/29/2024 10:0 0 AM EDT 12/29/2024 10:02 AM EDT us Generic External Data Provider LAB BLOOD ORDERAB LES Final Result [facility] [address] [place] [address] [phone] * Hepatic Function Panel (12/29/2024 10:00 AM EDT) Bilirubin, Total 0.4 0.0 - 1.0 mg/dL [facility] Bilirubin, Direct 0.1 0.0 - 0.5 mg/dL [facility] Aspartate Amino Transferase 26 5 - 31 U/L [facility] Alanine Aminotransferase 19 0 - 31 U/L [facility] Total Protein 7.6 6.5 - 8.0 g/dL [facility] Albumin Level 4.4 3.5 - 5.0 g/dL [facility] Alkaline Phosphatase 90 39 - 117 U/L [facility] 12/29/2024 10:0 0 AM EDT 12/29/2024 10:02 AM EDT us Generic External Data Provider LAB BLOOD ORDERAB LES Final Result [facility] [address] [place] [phone] * (ABNORMAL) Basic Metabolic Panel (12/29/2024 10:00 AM EDT) Sodium 142 135 - 145 mmol/L [facility] Potassium 4.0 3.3 - 5.1 mmol/L [facility] Chloride 107 96 - 108 mmol/L [facility] Carbon Dioxide 30(H) 22 - 29 mmol/L [facility] Anion Gap 9(L) 12 - 20 [facility] Urea Nitrogen (BUN) 10 9 - 16 mg/dL [facility] Creatinine, Serum 0.75 0.5 - 1.4 mg/dL [facility] Creatinine Clr Calc Pharmacy 66.2 [facility] Comment:Provided height and weight: 162.56 cm,49.5 kg.eGFR (calculated from the MDRD study equation) and eCrCl(calculated from the Cockcroft-Gault equation) are based ondifferent parameters and may not yield comparable results.If eCrCl result is absurd, please check patient'sheight/weight. Estimated Glomerular Filt Rate >60 [facility] Comment:Chronic Kidney Disea se: Estimated GFR < 60 mL/min/1.39i2Kxnrwm Kidney Disease: Estimated GFR < 15 mL/min/1.73m2 Glucose 117(H) 60 - 115 mg/dL [facility] Calcium 9.3 8.4 - 10.2 mg/dL [facility] 12/29/2024 10:0 0 AM EDT 12/29/2024 10:02 AM EDT us Generic External Data Provider LAB BLOOD ORDERAB LES Final Result Performing Organization Address [facility] Co de Phone Number [facility] [address] [place] [address] [phone] * (ABNORMAL) Confirmatory Syphilis Profile (11/26/2024 1:24 PM EDT) [facility] Rapid Plasma Reagin, Quant Non-React darren Nonreactive [facility] Treponema pallidum Antibody, Particle Agglutination Reactive( A) Nonreactive [facility] Comment:These results must b e reported by the ordering clinician orclinical facility to the [facility] required by state law.Testing performed at: [address] [address] 11/26/2024 1:24 PM EDT 11/27/2024 3:54 AM EDT Emilie Davis MD LAB BLOOD ORDERABLES Final Result Performing Organization Address [facility] Co de Phone Number [facility] [address] [place] [phone] * (ABNORMAL) Syphilis Screen (11/26/2024 1:24 PM EDT) [facility] Syphilis Screen Reactive( A) Nonreactive [facility] Comment:Reactive specimens a re sent to the [facility] Labfor confirmatory tests. 11/26/2024 1:24 PM EDT 11/26/2024 4:06 PM EDT Emilie Davis MD LAB BLOOD ORDERABLES Final Result Performing Organization Address [facility] Co de Phone Number [facility] [address] [place] [address] [phone] * Hepatitis C Viral RNA, Quantitative, Real-Time PCR (11/26/2024 1:24 PM EDT) [facility] Hepatitis C Viral Load <15 NOT DETECTED NOT DETECTED IU/mL [facility] HCV Log PCR <1.18 NOT DETECTED NOT DETECTED Log IU/mL [facility] Comment:For additional infor nura, please refer tohttp://education.OzVision/faq/TGU87o0(This link is being provided for informational/educational purposes only.)THIS TEST WAS PERFORMED AT:[facility] [place] [phone] MALDONADO MD 11/26/2024 1:24 PM EDT 11/27/2024 2:28 PM EDT Emilie Davis MD LAB BLOOD ORDERABLES Final Result Performing Organization Address [facility]/ZIP Co de Phone Number [facility] [address] [place] [phone] * (ABNORMAL) Hepatitis C Antibody with Reflex to HCV, RNA, Quantitative, Real- Time PCR (11/26/2024 1:24 PM EDT) Hepatitis C Antibody Reactive( A) Nonreactive [facility] Comment:Presumptive evidence of antibodies to HCV. 11/26/2024 1:24 PM EDT 11/26/2024 4:06 PM EDT Emilie Davis MD LAB BLOOD ORDERABLES Final Result Performing Organization Address [facility] Co de Phone Number [facility] [address] [place] [phone] * Methylmalonic Acid (11/26/2024 1:24 PM EDT) Methylmalonic Acid 197 55 - 335 nmol/L [facility] Comment: Serum methylmalonic acid [...] outcomes,such as neural tube defects and intrauterine growthrestriction.[facility] utilized Multi-Modal Decomposition(MMD) analysis to establish first and second trimester-specific MMA reference intervals in , as givenbelow:MMA, First trimester (<13 wks gestation): 58-167 nmol/LMMA, Second trimester (13-23 wks gestation):63-241 nmol/LThis test was developed and its analytical performancecharacteristics have been determined by [employer]. It has not been cleared or approved by theA. This assay has been validated pursuant to the CLIAregulations and is used for clinical purposes.THIS TEST WAS PERFORMED AT:[facility] [place] [phone] ESTEVEZ MD,PHD 11/26/2024 1:24 PM EDT 11/26/2024 4:06 PM EDT us Generic External Data Provider LAB BLOOD ORDERAB LES Final Result [facility] [address] [place] [phone] * HIV-1 RNA, Quantitative, Real-Time PCR (11/26/2024 1:24 PM EDT) HIV RNA PCR Qn Copies NOT DETECTED NOT DETECTED copies/mL [facility] HIV RNA PCR Qn Log Copies NOT DETECTED NOT DETECTED [facility] Comment:Result Units: Log co pies/mLThis test was performed using Real-Time Polymerase ChainReaction.Reportable Range: 20 copies/mL to 10,000,000 copies/mL(1.30 log copies/mL to 7.00 log copies/mL).THIS TEST WAS PERFORMED AT:[facility] [place] [phone] MALDONADO MD 11/26/2024 1:24 PM EDT 11/26/2024 4:06 PM EDT us Emilie Davis MD LAB BLOOD ORDERABLES Final Result Performing Organization Address [facility] Co de Phone Number [facility] [address] [place] [phone] * RPR (Monitor) with Reflex to??Titer (11/26/2024 1:24 PM EDT) RPR (Monitor) w/Refl Titer NON-REACTI VE NON-REACT DARREN [facility] Comment:THIS TEST WAS PERFOR MED AT:[facility] [place] [phone] MALDONADO MD Rapid Plasma Reagin Ab Titer TNP [facility] 11/26/2024 1:24 PM EDT 11/26/2024 4:06 PM EDT Emilie Davis MD LAB BLOOD ORDERABLES Final Result Performing Organization Address [facility] Co de Phone Number [facility] [address] [place] [phone] * POCT RAPID HIV SCREENING (11/26/2024 10:08 AM EDT) Blood 11/26/2024 10:0 8 AM EDT Narrative Medina Lewis RN - 11/26/2024 10:08 AM EDT Negative Emilie Davis MD POINT OF CARE TEST ENTER/E DIT ORDERABLES Final Result * NM Gastric Emptying Solid (10/20/2024 8:15 AM EDT) Anatomical Region Laterality Modality Body Nuclear Medicine 10/20/2024 8:15 AM EDT Narrative 10/20/2024 1:44 PM EDT [address] [address] Nuclear Medicine Report Signed Patient: Harriet Valdez MR#: [id number] : 1970 Acct:[id number] Age/Sex: 54 / F ADM Date: 10/20/24 Loc: HO.NUCMED Attending Dr: Aida ASH Ordering Physician: Aida Orozco Date of Service: 10/20/24 Procedure(s): HI gastric emptying study Accession Number(s): [id number] cc: Emilie Davis MD; Aida Orozco EXAMINATION: HI RADIONUCLIDE SOLID FOOD GASTRIC EMPTYING 4-HOUR STUDY [...] hours 16% 4 hours 8% (normal 0%-10%) HI/HI gastric emptying study IMPRESSION: Normal 4-hour solid [...] Jimmy Pedroza MD 10/20/2024 01:41 PM EDT Dictated By: Jimmy Pedroza MD Signed By: <Electronically signed by Jimmy Pedroza MD in OV> 10/20/24 1341 DD/ 0815 TD/TT: 10/20/24 1235 Supervisor Paint Department: MADINA Procedure Note Donotuseinterpreter, Image - 10/20/[address] [address] Nuclear Medicine Report Signed Patient: Harriet ValdezMR#: [id number] : 1970Acct:[id number] Age/Sex: 54 / FADM Date: 10/20/24 Loc: AJNU Attending Dr: Aida ASH Ordering Physician: Aida Orozco Date of Service: 10/20/24 Procedure(s): NM gastric emptying study Accession Number(s): [id number] cc: Emilie Davis MD; Aida Orozco EXAMINATION: [...] grading per JNMT Consensus Recommendations in 2008 (https://tech.snmjournals.org/content/3644) Grade 1 (mild retention): 11-20% at 4h Grade 2 (moderate retention): 21-35% at 4h Grade 3 (severe retention): 36-50% at 4h Grade 4 (very severe retention): >50% retention at 4h Electronically signed by: Jimmy Pedroza MD 10/20/2024 01:41 PM EDT Dictated By: Jimmy Pedroza MD Signed By: <Electronically signed by Jimmy Pedroza MD in OV> 10/20/24 1341 DD/ 0815 TD/TT: 10/20/24 1235 Supervisor Paint Department: MADINA [facility] External Provider IMG NM PROCEDURES Final Result * Mr Brain w/ and w/o Contrast (10/13/2024 4:52 PM EDT) Anatomical Region Laterality Modality Brain Magnetic Resonan ce 10/13/2024 4:52 PM EDT Narrative 10/13/2024 4:54 PM EDT [place] [address] Magnetic Resonance Report Signed Patient: Harriet Valdez MR#: [id number] : 1970 Acct:[id number] Age/Sex: 54 / F ADM Date: 10/12/24 Loc: HO.MRI Attending Dr: Suha ABDI Ordering Physician: Suha Rodriguez Date of Service: 10/12/24 Procedure(s): MR head/brain wo/w con Accession Number(s): [id number] cc: Emilie Davis MD; Suha Rodriguez CLINICAL [...] in OV> 10/13/24 1653 DD/ 165 TD/TT: 10/13/241651 Supervisor Paint Department: Procedure Note Donotuseinterpreter, Image - 10/13/2024 [place] [address] Magnetic Resonance Report Signed Patient: Harriet Valdez#: [id number] : 1970Acct:[id number] Age/Sex: 54 / FADM Date: 10/12/24 Loc: HO.MRI Attending Dr: Suha ABDI Ordering Physician: Suha Rodriguez Date of Service: 10/12/24 Procedure(s): MR head/brain wo/w con Accession Number(s): [id number] cc: Emilie Davis MD; Suha Rodriguez CLINICAL [...] in OV> 10/13/241652 DD/ 51 TD/TT: 10/13/241651 Supervisor Paint Department: [facility] External Provider IMG MRI PROCEDURES Final Result * MR VENOGRAPHY HEAD WO/W CON (10/13/2024 4:49 PM EDT) Anatomical Region Laterality Modality Upper Extremities, Wrist Left Magneti c Resonance 10/13/2024 4:49 PM EDT Narrative 10/13/2024 4:51 PM EDT [place] [address] Magnetic Resonance Report Signed Patient: Harriet Valdez MR#: [id number] : 1970 Acct:[id number] Age/Sex: 54 / F ADM Date: 10/12/24 Loc: HO.MRI Attending Dr: Suha ABDI Ordering Physician: Suha Rodriguez Date of Service: 10/12/24 Procedure(s): MR venography head wo/w con Accession Number(s): [id number] cc: Emilie Davis MD; Suha Rodriguez CLINICAL [...] OV> 10/13/24 165 DD/ 164 TD/TT: 10/13/241648 Supervisor Paint Department: Procedure Note Donotuseinterpreter, Image - 10/13/2024 [place] [address] Magnetic Resonance Report Signed Patient: Harriet Valdez#: [id number] : 1970Acct:[id number] Age/Sex: 54 / FADM Date: 10/12/24 Loc: HO.MRI Attending Dr: Suha Rodriguez AVIATION NEUROPSYCHOLOGIST Ordering Physician: Suha Rodriguez Date of Service: 10/12/24 Procedure(s): MR venography head wo/w con Accession Number(s): [id number] cc: Emilie Davis MD; Suha Rodriguez CLINICAL [...] Álvarez MD in OV> 10/13/24 165 DD/ 48 TD/TT: 10/13/241648 Supervisor Paint Department: [facility] External Provider IMG MRI PROCEDURES Final Result * Stress test with myocardial perfusion (10/13/2024 10:01 AM EDT) 10/13/2024 10:0 1 AM EDT Narrative [facility] - 10/14/2024 3:56 PM EDT [address] [address] Nuclear Medicine Report Signed Patient: Harriet Valdez MR#: [id number] : 1970 Acct:[id number] Age/Sex: 54 / F ADM Date: 10/13/24 Loc: EDD Attending Dr: Fred Castanon MD Ordering Physician: Fred Castanon MD Date of Service: 10/13/24 Procedure(s): NM cardiolite stress test Accession Number(s): [id number] cc: Emilie Davis MD; Fred Castanon MD [...] Rasta Gloria MD 10/14/2024 03:53 PM EDT RP Dictated By: Rasta Gloria MD Signed By: <Electronically signed by Rasta Gloria MD in OV> 10/14/24 1553 DD/ 1001 TD/TT: 10/14/24 1015 Supervisor Paint Department: Procedure Note Donotuseinterpreter, Image - 10/14/2024 [place] [address] Nuclear Medicine Report Signed Patient: Harriet Valdez#: [id number] : 1970Acct:[id number] Age/Sex: 54 / FADM Date: 10/13/24 Loc: [facility] Attending Dr: Fred Castanon MD Ordering Physician: Fred Castanon MD Date of Service: 10/13/24 Procedure(s): NM cardiolite stress test Accession Number(s): [id number] cc: Emilie Davis MD; Fred Castanon MD [...] 10/14/24 1553 DD/ 1001 TD/TT: 10/14/24 1015 Supervisor Paint Department: us [facility] External Provider CV STRE SS PROCEDURES Final Result [facility] [address] [place] [phone] * (ABNORMAL) Lipid Panel, Standard (07/24/2024 1:36 PM EDT) Triglycerides 141 <150 mg/dL [facility] Comment:Desirable Triglyceri de: less than 150 mg/dLBorderline High Triglyceride 150-199 mg/dLHigh Triglyceride: 200-499 mg/dLVery High Triglyceride: greater than or equal to 5OO mg/dL Cholesterol 205(H) <200 mg/dL [facility] Comment:Desirable Cholestero l: less than 200 mg/dLBorderline High Cholesterol: 200-239 mg/dLHigh Cholesterol: greater than 239 mg/dL LDL Cholesterol Calculated 114(H) <100 mg/dL [facility] Comment:Desirable LDL: less than [...] Provider LAB BLOOD ORDERAB LES Final Result [facility] [address] [place] [phone] * HPV mRNA E6/E7 w/Reflex to HPV Genotypes 16, 18/45 (03/22/2023 11:30 AM EST) HPV nRNA E6/E7 Not Detected Not Detected [facility] Comment:Methodology: Transcr iption-Mediated AmplificationThis assay detects E6/E7 viral messenger RNA (mRNA) from 14high-risk HPV types (16,18,31,33,35,39,45,51,52,56,58,59,66,68).Cervical sources are required for HPV testing.If a vaginal source from a patient who has had atotal hysterectomy with removal of cervix wassubmitted, please contact the testing laboratoryfor alternative testing options.For additional information, please refer tohttp://education.OzVision/faq/MAF441j3(This link if provided for information/educational purposes only.)THIS TEST WAS PERFORMED AT:[facility] [place] [phone] MALDONADO MD HPV mRNA E6/E7 TNP [facility] HPV 16 RNA TNP [facility] HPV 18/45 RNA TNP [facility] 03/22/2023 11:3 0 AM EST 03/25/2023 12:20 PM EST us Emilie Davis MD LAB CYTOLOGY ORDERABLES Fi nal Result [facility] [address] [place] [phone] * Pap Smear (03/22/2023 11:30 AM EST) 03/22/2023 11:3 0 AM EST 03/25/2023 12:20 PM EST Narrative [facility] - 04/11/2023 11:26 AM EST ----- ------- Name: Trace RobersonHarriet do Age/Sex: 53/F : 1970 Unit#: [id number] Attend Dr: RADHA VILLAREAL MD Re03/22/23 Status: DEP REF Location: HO.HHCLNP Disch: ----- ------- SPEC : [id number] RECD: 03/25/23 STATUS: JANIE DUNLAP NUM: [id number] AMBREEN: 03/22/23-[address]: Emilie Davis MD ENTERED: 03/25/23-7239 SP TYPE: Pap Smr OTHR DR: ORDERED: Pap Smear Interpretation Satisfactory for evaluation. Negative for intraepithelial lesion or malignancy. HPV mRNA E6/E7: NOT DETECTED This assay detects E6/E7 viral messenger RNA (mRNA) from 14 high-risk HPV types (16, 18, 31, 33, 35, 39, 45, 51, 52, 56, 58, 59, 66, 68) HPV testing performed by [facility], [place], [place]. See reference laboratory portion of the EMR for entire report. Clinical Information LMP: Unknown date Previous PAP test: Unknown date, WNL Other history: Pt on testosterone, surgical post menopause Material Received ThinPrep-Cervical ----- ------- Signed (signature on file) SERENA Alejandro (ASCP) 04/11/23 1126 ----- ------- END OF REPORT Emilie Davis MD LAB CYTOLOGY ORDERABLES Fi nal Result [facility] [address] [place] [phone] * Colonoscopy (01/30/2018) Colonoscopy normal Historical Provider HEALTH MAINTENANCE Final Result from Last 3 Months or Most Recently Relevant to Health Maintenance Insurance [facility] 3 Advance Directives Documents on File Type Date Recorded Patient Inspector Multifocal Lens Expl anation Advance Directives and Living Will 03/16/2024 Health Care Proxy 03/16/24 Care Teams Photographic Process Worker Relationship Specialty Start Date End Date Cos Cob, MD Emilie [address] [place] [address] PCP - General Family Medicine 05/13/18 Morales Echavarria FNP [address] [place] [address] Nurse Practitioner Family Medicine 04/16/[address] [place] [address] Gastroenterology 05/26/24 Fred Castanon [address] [place] [address] 3rd [place] [address] 07/21/24
--- OUTSIDE RECORDS SUMMARY | 2025-01-12 08:04 | XMS_ITS | Encounter Summary ---
Author Organization [facility] Address [address] [facility] [address] [facility] 7t [place] [address] Care Team Providers Care Supervisor Electrolytic Tinning Name Role Phone Emilie Davis MD Primary Care Provider [phone] Morales Echavarria EXPLOSIVE OPERATOR Unavailable Unavailable August Unavailable Fred Castanon Unavailable Reason for Visit * Reason Onset Date Comments Med Refill 04/22/2024 Encounter Details Date Type Department Care Team (Late st Contact Info) Description 04/22/2024 Telephone [facility] [address] [place] [address] Emilie Davis MD [address] [place] [address] Med Refill Social History Tobacco Use Types [...] 200 MG/5ML suspension To be sent to: [facility] - [place], [place] - [address] [facility] documented in this encounter Plan of Treatment Upcoming Encounters Date Type Department Care Team (Late st Contact Info) Description 01/12/2025 9:30 AM EDT Office Visit [facility] [address] [place] [address] Lauren Borrero FNP [address] [place] [address] 01/22/2025 9:00 AM EDT Clinical Support [facility] [address] [place] [address] Medina Lewis, RN [address] [place] [address] documented as of this encounter Visit Diagnoses Not on filedocumented in this encounter Additional Health Concerns Assessment Noted Time PHQ-9 Depression Total Score: 3 04/30/20 9:17 AM EST documented as of this encounter Care Teams Supervisor Electrolytic Tinning Relationship Specialty Start Date End Date Emilie Davis MD [address] [place] [address] PCP - General Family Medicine 05/13/18 Morales Echavarria FNP [address] [place] [phone] Nurse Practitioner Family Medicine 04/16/[address] [place] [address] [address] [place] [address] Gastroenterology 05/26/24 Fred Castanon [address] [place] [phone] 07/21/24 documented as of this encounter
== END 2025-01-12 08:12 | disposition home or self-care (01) ==
LOC: HO.HOS 07:58
PROVIDERS: Visit Provider Orthopaedic Surgery
DX: M54.50 Low back pain, unspecified (principal); M79.605 Pain in left leg
CPT/HCPCS: 99203

== ENCOUNTER → 2025-01-12 07:57 | Outpatient (BNVA) | payer OTHER, SELFPAY | PROVIDERS: Visit Provider Orthopaedic Surgery | DX: M79.605 Pain in left leg (principal); M54.50 Low back pain, unspecified | CPT/HCPCS: 99202 ==

== ENCOUNTER 2025-01-14 09:31 | Outpatient (REF) | payer OTHER, SELFPAY ==
--- OUTSIDE RECORDS SUMMARY | 2025-01-07 05:15 | XMS_ITS | Continuity of Care Document ---
Author Organization [facility] Address [address] [place] [address] [address] [place] [address] Phone Care Team Providers Care Engra[employer] Name Role Phone Josue MARISCAL, KATHY, Manish [...] Providers Copied on Encounter [facility], [address] [place] [address] [address], [place], [id number], [place] tel:[phone] CVR - [place] - [place] Varicose veins of right lower extremity with other complications Josue MARISCAL, KATHY, ANDRE Hammond. [address] [facility], [address], [facility] [id number] , [place]. tel:[phone] Referring Provider: Emilie Way, [address] [place] [address], [place], [address]. tel:[phone] [facility], [address] [place] [address] Dr [address] [place] Strong [place], [id number], [place] tel:[phone] [facility] No Information 5 Josue MARISCAL RVT, ANDRE Hammond. [address] [address], [place], [place], [id number] , [place]. tel:[phone] Offic/outpt E&m Estab 5 Min Trial- Telemedicine CT & [place] [facility], [address] [place] [address] [address] [place], [id number], [place] tel:[phone] [facility] venous hypertension (idiopathic) with other complications of bilateral lower extremity 5 Josue MARISCAL RVT, ANDRE Hammond. [facility] [address], [place], [place], [id number] , [place]. tel:[phone] Referring Provider: Emilie Way, [address] [place] [address], [place], [address]. tel:[phone] Offic Cons New/estab Mod 40 Mi- CT & [place] [facility], [address] [place] [address] Dr [address] [place], [id number], [place] tel:[phone] [facility] Chronic venous hypertension (idiopathic) without complications of bilateral lower extremityRestl ess legs syndromePrurit us, unspecifiedPai n in left legCramp and spasmLocalized edema 5 Josue MARISCAL RVT, ANDRE Hammond. [facility] [address], [place], [place], [id number] , [place]. tel:[phone] Referring Provider: Emilie Way, [address] [place] [address], [place], [address]. tel:[phone] [facility] [facility], [address] [place] [address] [address] [place], [id number], [place] tel:[phone] [facility] Varicose veins of bilateral lower extremities with pain Josue MARISCAL, RVT, RPVI Manish. [address] [facility], [address], [facility] [place], [id number] , [place]. tel:[phone] Referring Provider: Emilie [place], [address] [facility], [place], [address]. tel:[phone] Family History Family Member Type Diagnosis Age At Onset No Information Payers Payer name Insurance type Covered republican ID Authorchela gomez(s) [facility] [id number] Social History Type Description Quantity Date Captured [...]
--- NOTE | ~2025-01-14 | FL_ITS ---
EXAMINATION: XR BARIUM SWALLOW CLINICAL INFORMATION: Vomiting difficulty swallowing. COMPARISON: Gastric emptying study 10/20/2024. CT abdomen 12/29/2024 TECHNIQUE: Barium swallow was performed in upright view following oral administration of thick barium and barium coated saltine crackers. FINDINGS: Following oral administration of thick barium in upright view and different positions there is normal propagation bolus from the oral cavity through the pharynx into the esophagus. There is a high-grade stenosis at the distal esophagus/GE junction resulting in moderate retention of solid barium and food in the mid esophagus. There is clears much better following oral administration of water. FLUOROSCOPY TIME: 2.06 minutes. 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 Results were called to referring physician via tiger text at 11:17 AM on 01/14/2025 Electronically signed by: Jimmy Pedroza MD 01/14/2025 11:20 AM EDT
--- OUTSIDE RECORDS SUMMARY | 2025-01-14 10:17 | XMS_ITS | Encounter Summary ---
Author Organization [employer] Address [address] 7[address] [place] [address] Care Team Providers Care Director Of Marketing [employer]ds Name Role Phone Emilie Davis MD Primary Care Provider [phone]- [phone] Morales Echavarria FEATHER TRIMMER Unavailable Unavailable August Unavailable Fred Castanon Unavailable Reason for Visit * Reason Onset Date Comments Referral 07/20/2024 Encounter Details Date Type Department Care Team (Late st Contact Info) Description 07/20/2024 Telephone [facility] [address] [place] [address] Emilie Davis MD [address] [place] [address] Referral Social History Tobacco Use Types Packs/Day [...] 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 Contact pt at [phone] documented in this encounter Plan of Treatment Upcoming Encounters Date Type Department Care Team (Late st Contact Info) Description 01/22/2025 9:00 AM EDT Clinical Support [facility] [address] [place] [phone] Medina Lewis RN [address] [place] [phone] 03/03/2025 9:30 AM EDT Office Visit [facility] [address] [place] [phone] Emilie Davis MD [address] [place] [phone] documented as of this encounter Visit Diagnoses Not on filedocumented in this encounter Additional Health Concerns Assessment Noted Time PHQ-9 Depression Total Score: 3 04/30/20 23 9:17 AM EST documented as of this encounter Care Teams Director Of Marketing [employer] Relationship Specialty Start Date End Date Emilie Davis MD [address] [place] [phone] PCP - General Family Medicine 05/13/18 Morales Echavarria FNP [address] [place] [address] Nurse Practitioner Family Medicine 04/16/23August [address] [place] [address] Gastroenterology 05/26/24 Fred Castanon [address] [place] [phone] 07/21/24 documented as of this encounter
--- OUTSIDE RECORDS SUMMARY | 2025-01-14 10:17 | XMS_ITS | Encounter Summary ---
Author Organization [employer] Address [address] 7[address] [place] [address] Care Team Providers Care Brass And Wind Instrument Repairer Name Role Phone Emilie Davis MD Primary Care Provider +1- [phone] Morales Echavarria Unavailable Unavailable August Unavailable Fred Castanon Unavailable Encounter Details Date Type Department Care Team (Late st Contact Info) Description 03/25/2023 Orders Only [facility] [address] [place] [address] Emilie Davis MD [address] [place] [address] Social History Tobacco Use Types Packs/Day Years [...] Description 01/22/2025 9:00 AM EDT Clinical Support [facility] [address] [place] [phone] Meidna Lewis, RONALD [address] [place] [phone] 03/03/2025 9:30 AM EDT Office Visit [facility] [address] [place] [phone] Emilie Davis MD [address] [place] [phone] documented as of this encounter Visit Diagnoses Not on filedocumented in this encounter Additional Health Concerns Assessment Noted Time PHQ-9 Depression Total Score: 10 023 9:08 AM EDT documented as of this encounter Care Teams Brass And Wind Instrument Repairer Relationship Specialty Start Date End Date Emilie Davis MD [address] [place] [phone] PCP - General Family Medicine 05/13/18 Morales Echavarria FNP [address] [place] [address] Nurse Practitioner Family Medicine 04/16/23August [address] [place] [address] 3rd [place] [address] Gastroenterology 05/26/24 Fred Castanon [address] 3rd [place] [address] 07/21/24 documented as of this encounter
--- OUTSIDE RECORDS SUMMARY | 2025-01-14 10:17 | XMS_ITS | Encounter Summary ---
Author Organization [facility] Address [address] [facility] 7t [place] [address] Care Team Providers Care General Activities Therapist Name Role Phone Emilie Davis MD Primary Care Provider +1- [phone] Morales Echavarria MACHINIST TOOL AND DIE Unavailable Unavailable August Unavailable Fred Castanon Unavailable Reason for Visit * Reason Onset Date Comments Med Refill 04/22/2024 Encounter Details Date Type Department Care Team (Late st Contact Info) Description 04/22/2024 Telephone [facility] MED[facility]INE [address] [place] [address] Emilie Davis MD 230 [place] [address] Med Refill Social History Tobacco Use Types [...] 200 MG/5ML suspension To be sent to: [facility] - [place], [place] - [address] [facility] documented in this encounter Plan of Treatment Upcoming Encounters Date Type Department Care Team (Late st Contact Info) Description 01/22/2025 9:00 AM EDT Clinical Support [facility] [address] [place] [address] Medina Lewis, RONALD [address] [place] [address] 03/03/2025 9:30 AM EDT Office Visit [facility] [address] [place] [address] Emilie Davis MD [address] [place] [address] documented as of this encounter Visit Diagnoses Not on filedocumented in this encounter Additional Health Concerns Assessment Noted Time PHQ-9 Depression Total Score: 3 04/30/20 9:17 AM EST documented as of this encounter Care Teams General Activities Therapist Relationship Specialty Start Date End Date Emilie Davis MD [address] [place] [address] PCP - General Family Medicine 05/13/18 Morales Echavarria FNP [address] [place] [address] 67656 Nurse Practitioner Family Medicine 04/16/[address] [place] [address] 9[address] Gastroenterology 05/26/24 Fred Castanon [address] [place] [address] 07/21/24 documented as of this encounter
--- OUTSIDE RECORDS SUMMARY | 2025-01-14 10:17 | XMS_ITS | Encounter Summary ---
Author Organization [facility] Address [address] [facility] 7t [place] [address] Care Team Providers Care Route Salesman Name Role Phone Emilie Davis MD Primary Care Provider +1- [phone] Morales Echavarria Unavailable Unavailable August Unavailable Fred Castanon Unavailable Encounter Details Date Type Department Care Team (Late st Contact Info) Description 05/27/2022 Abstract [facility] MED[facility]INE [address] [place] [address] [phone] Emilie Davis MD [address] [place] [address] [phone] Social History Tobacco Use Types Packs/Day Years [...] Description 01/22/2025 9:00 AM EDT Clinical Support [facility] [address] [place] [address] [phone] Medina Lewis, RONALD [address] [place] [address] 03/03/2025 9:30 AM EDT Office Visit [facility] [address] [place] [address] [phone] Emilie Davis MD [address] [place] [address], [place] [address] documented as of this encounter Procedures Procedure Name Priority Date/Time Associated Diagnosis Comments COLONOSCOPY Routine 01/30/2018 HPV HIGH RISK PCR Routine 12/06/2017 12: 00 AM EDT PAP SMEAR Routine 12/06/2017 12:00 AM EDT documented in this encounter Results * Colonoscopy (01/30/2018) Colonoscopy normal Historical Provider HEALTH MAINTENANCE Final Result * HPV High Risk PCR (12/06/2017 12:00 AM EDT) [facility] Provider LAB MICROBIOLOGY - GENERA L ORDERABLES Final Result IMAGING * Pap Smear (12/06/2017 12:00 AM EDT) [facility] Provider LAB CYTOLOGY ORDERABLES F inal Result [facility] [address] [place] [address] [phone] documented in this encounter Visit Diagnoses Not on filedocumented in this encounter Care Teams Route Salesman Relationship Specialty Start Date End Date Emilie Davis MD [address] [place] [address] PCP - General Family Medicine 05/13/18 Morales Echavarria FNP [address] [place] [address] 17491 Nurse Practitioner Family Medicine 04/16/[address] [place] [address] Gastroenterology 05/26/24 Fred Castanon [address] [place] [address] [place] [address] 07/21/24 documented as of this encounter
--- OUTSIDE RECORDS SUMMARY | 2025-01-14 10:17 | XMS_ITS | Encounter Summary ---
Author Organization [email or web address] Address [address] [address] [facility] [address] 7t [place] [address] Care Team Providers Care Pilot Fuel Engineer Name Role Phone Emilie Davis MD Primary Care Provider +1- [phone] Morales Echavarria FIREWOOD CUTTER Unavailable Unavailable August Unavailable Fred Castanon Unavailable Reason for Visit * Reason Onset Date Comments Appointment Request 11/26/2024 Encounter Details Date Type Department Care Team (Late st Contact Info) Description 11/26/2024 Telephone [facility] MEDICINE 230 [place] [address] Emilie Davis MD 230 [place] [address] Appointment Request Social History Tobacco Use Types [...] 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 Not on file Not on file documented as of this encounter Miscellaneous Notes * Telephone Encounter - Ernie Curry - 11/26/2024 9:25 AM EDT Tc from pt requesting to reschedule todays apt 11/26 Contact pt at [phone] (libyan) documented in this encounter Plan of Treatment Upcoming Encounters Date Type Department Care Team (Late st Contact Info) Description 01/22/2025 9:00 AM EDT Clinical Support [facility]INE [address] [place] [address] Medina Lewis RN 230 [place] [address] 03/03/2025 9:30 AM EDT Office Visit [facility] [address] [place] [address] Emilie Davis MD 230 [place] [address] documented as of this encounter Visit Diagnoses Not on filedocumented in this encounter Additional Health Concerns Assessment Noted Time PHQ-9 Depression Total Score: 3 04/30/20 23 9:17 AM EST documented as of this encounter Care Teams Pilot Fuel Engineer Relationship Specialty Start Date End Date Emilie Davis MD [address] [place] [address] PCP - General Family Medicine 05/13/18 Morales Echavarria FNP [address] [place] [address] 10656 Nurse Practitioner Family Medicine 04/16/23 Aida Orozco [address] [place] [address] 08[address] Gastroenterology 05/26/24 Fred Castanon [address] [place] [address] 07/21/24 documented as of this encounter
--- OUTSIDE RECORDS SUMMARY | 2025-01-14 10:17 | XMS_ITS | Encounter Summary ---
Author Organization [facility] Address [address] [facility] 7t [place] [address] Care Team Providers Care Smoking Pipe Driller And Threader Name Role Phone Emilie Davis MD Primary Care Provider +1- [phone] Morales Echavarria Unavailable Unavailable August Unavailable Fred Castanon Unavailable Encounter Details Date Type Department Care Team (Late st Contact Info) Description 11/28/2022 Abstract [facility] MEDICINE [address] [place] [address] Emilie Davis MD 230 [place] [address] Social History Tobacco Use Types Packs/Day Years [...] Department Care Team (Late Contact Info) Description 01/22/2025 9:00 AM EDT Clinical Support [facility] 230 [place] [address] Medina Lewis RN 230 [place] [address] 03/03/2025 9:30 AM EDT Office Visit [facility] [address] [place] [address] Emilie Davis MD 230 [place] [address] documented as of this encounter Visit Diagnoses Not on filedocumented in this encounter Additional Health Concerns Assessment Noted Time PHQ-9 Depression Total Score: 19 023 9:24 AM EDT documented as of this encounter Care Teams Smoking Pipe Driller And Threader Relationship Specialty Start Date End Date Emilie Davis MD [address] [place] [address] 34[address] PCP - General Family Medicine 05/13/18 Morales Echavarria FNP [address] [place] [address] Nurse Practitioner Family Medicine 04/16/23August [address] [place] [address] 3[address] [place] [address] Gastroenterology 05/26/24 Fred Castanon [address] [place] [address] 07/21/24 documented as of this encounter
--- OUTSIDE RECORDS SUMMARY | 2025-01-14 10:17 | XMS_ITS | Encounter Summary ---
Author Organization [facility] Address [address] [facility] 7t [place] [address] Care Team Providers Care In Home Aide Name Role Phone Emilei Davis MD Primary Care Provider +1- [phone] Morales Echavarria OFFICE INSPECTOR Unavailable Unavailable August Unavailable Fred Castanon Unavailable Reason for Visit * Reason Comments Med Refill Encounter Details Date Type Department Care Team (Late st Contact Info) Description 06/27/[address] [facility] MEDICINE [address] [place] [address] Emilie Davis MD [address] [place] [address] [phone] Social History Tobacco Use Types Packs/Day Years [...] Description 01/22/2025 9:00 AM EDT Clinical Support [facility] [address] [place] [address] [phone] Medina Lewis, RONALD [address] [place] [address] 03/03/2025 9:30 AM EDT Office Visit [facility] [address] [place] [address] [phone] Emilie Davis MD [address] [place] [address] documented as of this encounter Visit Diagnoses Not on filedocumented in this encounter Care Teams In Home Aide Relationship Specialty Start Date End Date Emilie Davis MD [address] [place] [address] 09646 PCP - General Family Medicine 05/13/18 Morales Echavarria FNP [address] [place] [address] 68030 Nurse Practitioner Family Medicine 04/16/23August [address] [place] [address] Gastroenterology 05/26/24 Fred Castanon [address] [place] [address] 07/21/24 documented as of this encounter
--- OUTSIDE RECORDS SUMMARY | 2025-01-14 10:17 | XMS_ITS | Encounter Summary ---
Author Organization [employer] Address [address] [facility] 7t [place] [address] Care Team Providers Care Dump Grounds Checker Name Role Phone Emilie Davis MD Primary Care Provider +1- [phone] Morales Echavarria ELECTRIC MOTOR REBUILDER Unavailable Unavailable August Unavailable Fred Castanon Unavailable Reason for Visit * Reason Onset Date Comments Hospital Follow-up 01/04/2025 No Show 01/04/2025 Pt no show for h df Encounter Details Date Type Department Care Team (Late st Contact Info) Description 01/04/2025 Telephone [facility] MED[facility]INE 230 [place], [place] [phone] Emilie Davis MD 230 [place], [place] [phone] Hospital Follow-up; No Show (Pt no show for hdf ) Social History Tobacco Use Types Packs/Day Years [...] 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 Hospital: [facility] Date of admission: 12/29 Discharge date: 12/31 Diagnosed: Gastritis and inflammation of the pancreas *Send message to [place] Clinical Care Coordinators documented in this encounter Plan of Treatment Upcoming Encounters Date Type Department Care Team (Late st Contact Info) Description 01/22/2025 9:00 AM EDT Clinical Support [facility] MED[facility]INE [address] [place] [address] Medina Lewis, RN [address] [place] [address] 03/03/2025 9:30 AM EDT Office Visit [facility] [address] [place] [address] Emilie Davis MD [address] [place] [address] documented as of this encounter Visit Diagnoses Not on filedocumented in this encounter Additional Health Concerns Assessment Noted Time PHQ-9 Depression Total Score: 3 04/30/20 9:17 AM EST documented as of this encounter Care Teams Dump Grounds Checker Relationship Specialty Start Date End Date Emilie Dvais MD [address] [place] [address]61 PCP - General Family Medicine 05/13/18 Morales Echavarria FNP [address] [place] [address] 18876 Nurse Practitioner Family Medicine 04/16/[address] [place] [address] 58661 Gastroenterology 05/26/24 Fred Castanon [address] [place] [address] 07/21/24 documented as of this encounter
--- OUTSIDE RECORDS SUMMARY | 2025-01-14 10:17 | XMS_ITS | Encounter Summary ---
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) Social [...] Description 01/22/2025 9:00 AM EDT Clinical Support [facility] MEDICINE [address] [place] [address] Medina Lewis RN [address] [place] [address] 03/03/2025 9:30 AM EDT Office Visit [facility] MEDICINE [address] [place] [address] Emilie Davis MD [address] [place] [address]698 documented as of this encounter Visit Diagnoses Diagnosis Gender 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- Primary documented in this encounter Additional Health Concerns Assessment Noted Time PHQ-9 Depression Total Score: 3 04/30/20 9:17 AM EST documented as of this encounter Care Teams Note Taker Relationship Specialty Start Date End Date Emilie Davis MD [address] [place] [address] 30854 PCP - General Family Medicine 05/13/18 Morales Echavarria FNP [address] [place] [address] 77891 Nurse Practitioner Family Medicine 04/16/23 Pam August [address] [place] [address] 3[address] [place] [address] Gastroenterology 05/26/24 Fred Castanon [address] 3rd Floor BRITTANI Ramirez [address] 07/21/24 documented as of this encounter
--- OUTSIDE RECORDS SUMMARY | 2025-01-14 10:17 | XMS_ITS | Clinical Summary ---
Author Organization [facility] Address [address] [address] Phone Care Team Providers Care River Captain Name Role Phone Emilie Davis MD Primary Care Provi baldoemro Allergies Active Allergy Reactions Criticality Noted Date [...] ACO C3 ACO C3 ACO C3 ACO [facility] C3 ACO [employer] Advance Directives For more information, please contact: [phone] (9AM - 5PM [facility], Saturday-Saturday) * Full Code (Presumed) (Latest Code Status on File) Date Activated Date Inactivated Comments 10/28/2018 9:51 AM 10/28/2018 7:25 PM Care Teams River Captain Relationship Specialty Start Date End Date [place], Emilie Way MD [address] [place] [address] PCP - General Family Medicine 06/03/18 Additional Source Comments The information contained in this document represents components of the legal health record. It is not the complete legal health record.[facility]
--- OUTSIDE RECORDS SUMMARY | 2025-01-14 10:17 | XMS_ITS | Encounter Summary ---
Author Organization [employer] Address 75 [facility] 7t [place] [address] Care Team Providers Care Chair And Couch Maker Name Role Phone Emilie Davis MD Primary Care Provider +1- [phone] Morales Echavarria SALES TECHNICIAN Unavailable Unavailable August Unavailable Fred Castanon Unavailable Encounter Details Date Type Department Care Team (Late st Contact Info) Description 04/22/2022 Orders Only [facility] [address] [place], [place] [phone] Emilie Davis MD 230 [place], [place] [phone] HSV (herpes simplex virus) anogenital infection (Primary [...] Description 01/22/2025 9:00 AM EDT Clinical Support [address] [phone] Medina Lewis, RONALD 230 [place] [address] 03/03/2025 9:30 AM EDT Office Visit [address] [address] Emilie Davis MD [address] [place] [address] documented as of this encounter Visit Diagnoses Diagnosis HSV (herpes simplex virus) anogenital infection- Primary Herpes simplex without mention of complication documented in this encounter Care Teams Chair And Couch Maker Relationship Specialty Start Date End Date Emilie Davis MD [address] [place] [address]92 PCP - General Family Medicine 05/13/18 Morales Echavarria FNP [address] [place] [address] 19810 Nurse Practitioner Family Medicine 04/16/23 Pam Aida [address] [place] [address] Gastroenterology 05/26/24 Fred Castanon [address] [place] [address] 18273 07/21/24 documented as of this encounter
--- OUTSIDE RECORDS SUMMARY | 2025-01-14 10:17 | XMS_ITS | Encounter Summary ---
Author Organization [facility] Address [address] [facility] 7t [place] [address] Care Team Providers Care Medical Coding Auditor Name Role Phone Emilie Davis MD Primary Care Provider +1- [phone] Morales Echavarria OPERATIONS MANAGER Unavailable Unavailable August Unavailable Fred Castanon Unavailable Reason for Visit * Reason Onset Date Comments Referral 07/18/2022 Encounter Details Date Type Department Care Team (Late st Contact Info) Description 07/18/2022 Telephone [facility] MEDICINE 230 [place] [address] Emilie Davis MD 230 [place] [address] Referral Social History Tobacco Use Types Packs/Day [...] [facility]. Please contact pt [phone] documented in this encounter Plan of Treatment Upcoming Encounters Date Type Department Care Team (Late st Contact Info) Description 01/22/2025 9:00 AM EDT Clinical Support [address] [address] Medina Lewis, RN 230 [place] [address] 03/03/2025 9:30 AM EDT Office Visit [address] [address] Emilie Davis MD [address] [place] [address] documented as of this encounter Visit Diagnoses Not on filedocumented in this encounter Care Teams Medical Coding Auditor Relationship Specialty Start Date End Date Emilie Davis MD [address] [place] [address] 51052 PCP - General Family Medicine 05/13/18 Morales Echavarria FNP [address] [place] [address] 71096 Nurse Practitioner Family Medicine 04/16/23August [address] [place] [address]121 Gastroenterology 05/26/24 Fred Castanon [address] [place] [address] 07/21/24 documented as of this encounter
--- OUTSIDE RECORDS SUMMARY | 2025-01-14 10:17 | XMS_ITS | Encounter Summary ---
Author Organization [employer] Address [address] [facility] 7t [place] [address] Care Team Providers Care Tank Officer Name Role Phone Emilie Davis MD Primary Care Provider +1- [phone] Morales Echavarria Unavailable Unavailable August Unavailable Fred Castanon Unavailable Reason for Visit * Reason Comments Med Refill Encounter Details Date Type Department Care Team (Late st Contact Info) Description 01/01/2023 Refill [facility] 230 [place] [address] Emilie Davis MD 230 [place] [address] Social History Tobacco Use Types Packs/Day Years [...] 8:54 AM EDT T/C to patient via interpreter deaf regarding x-ray result. No answer, message left [...] Description 01/22/2025 9:00 AM EDT Clinical Support [facility] [address] [place] [address] Medina Lewis, RN [address] [place] [address] 03/03/2025 9:30 AM EDT Office Visit [facility] [address] [place] [address] Emilie Davis MD [address] [place] [address] documented as of this encounter Visit Diagnoses Not on filedocumented in this encounter Additional Health Concerns Assessment Noted Time PHQ-9 Depression Total Score: 19 023 9:24 AM EDT documented as of this encounter Care Teams Tank Officer Relationship Specialty Start Date End Date Emilie Davis MD [address] [place] [address] PCP - General Family Medicine 05/13/18 Morales Echavarria FNP [address] [place] [address] 40073 Nurse Practitioner Family Medicine 04/16/23August [address] [place] [address] 3rd [place] [address] Gastroenterology 05/26/24 Fred Castanon [address] 3rd [place] [address] 07/21/24 documented as of this encounter
--- OUTSIDE RECORDS SUMMARY | 2025-01-14 10:17 | XMS_ITS | Clinical Summary ---
Author Organization [facility] Address [address] [place] [address] Care Team Providers [employer] Project Engineer Name Role Phone Emilie [place] MD Primary Care Provider [phone] Morales Echavarria Unavailable Unavailable August Unavailable Fred Castanon Unavailable Allergies Active Allergy Reactions Criticality Noted Date Comments Penicillins Anaphylaxis,Rash High 05/16/2017 Sumatriptan 10/28/2018 Medications * This document contains information received from the source organization and may not represent a complete record from that organization. 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 -dental home is [facility] -health care proxy filed 03/16/24 Assessment & Plan (03/17/2024 6:12 AM EST): -next physical exam due after 03/16/2025 -eye care facilitated by Alessio. -dental home is [facility] -health care proxy filed 03/16/24 Assessment & Plan (03/22/2023 9:17 AM EST): -next physical exam due after 12/07/2023. -eye care facilitated by Alessio. -dental home is outside of [facility] Assessment & Plan (12/06/2022 10:19 AM EDT): -next physical exam dueafter 12/07/2023. -eye care facilitated by Alessio. -dental home is outside of [facility] Hx of hepatitis C 11/26/2022 Overview [...] rays suggests osteoarthritis. Seen by rheumatology in [place]. Ibuprofen and NSAIDs cause gastritis. Minimal relief with acetaminophen. He was referred back to rheumatology in [place] 08/23/2020 but provider left the area. started on Tramadol. Take 3 times per week. He is not taking at this time. Assessment & Plan (03/17/2024 6:08 AM EST): X rays suggests osteoarthritis. Seen by rheumatology in [place]. Ibuprofen and NSAIDs cause gastritis. Minimal relief with acetaminophen. He was referred back to rheumatology in [place] 08/23/2020 but provider left the area. started on Tramadol. Take 3 times per week. He is not taking at this time. Assessment & Plan (03/22/2023 9:15 AM EST): X rays suggests osteoarthritis. Seen by rheumatology in [place]. Ibuprofen and NSAIDs cause gastritis. Minimal relief with acetaminophen. He was referred back to rheumatology in [place] 08/23/2020 but provider left the area. started on Tramadol. Take 3 times per week. Will need COT in the future. Assessment & Plan (12/06/2022 8:54 AM EDT): X rays suggests osteoarthritis. Seen by rheumatology in [place]. Ibuprofen and NSAIDs cause gastritis. Minimal relief with acetaminophen. He was referred back to rheumatology in [place] 08/23/2020 but provider left the area. started on Tramadol. Take 3 times per week. Will need COT in the future. Assessment & Plan (10/11/2022 9:58 AM EDT): X rays suggests osteoarthritis. Seen by rheumatology in [place]. Ibuprofen and NSAIDs cause gastritis. Minimal relief with acetaminophen. He was referred back to rheumatology in [place] 08/23/2020 but provider left the area. started [...] with palpitations. Will refer to his jigger machine operator for bradycardia. Assessment & Plan (03/22/2023 9:16 AM EST): Sinus bradycardia and asymptomatic. Pt states he always has slow heart rate Pt repots heart rate in 40s recorded with home BP monitor with symptoms of dizziness recorded at home. Now with palpitations. Will refer to his jigger machine operator for bradycardia. Assessment & Plan (12/06/2022 8:54 AM EDT): Sinus bradycardia and asymptomatic. Pt states he always has slow heart rate Pt repots heart rate in 40s recorded with home BP monitor with symptoms of dizziness recorded at home. Now with palpitations. Will refer to his jigger machine operator for bradycardia. Assessment & Plan (10/11/2022 9:58 AM EDT): Sinus bradycardia and asymptomatic. Pt states he always has slow heart rate Pt repots heart rate in 40s recorded with home BP monitor with symptoms of dizziness recorded at home. Now with palpitations. Will refer to his jigger machine operator for bradycardia. Generalized abdominal pain 06/25/2021 Overview [...] for GI. Insurance no longer accepted at [facility]. -EGD scheduled for December 2021. -10/19/24 IMPRESSION: [...] for GI. Insurance no longer accepted at [facility]. -EGD scheduled for December 2021. Assessment & [...] for GI. Insurance no longer accepted at [facility]. -EGD scheduled for December 2021. Assessment & [...] for GI. Insurance no longer accepted at [facility]. -EGD scheduled for December 2021. Assessment & [...] for GI. Insurance no longer accepted at [facility]. -EGD scheduled for December 2021. History of non-ST elevation myocardial infarctio n (NSTEMI) 06/25/2021 Overview (10/15/2024): Hx NSTE MT 09/2017. See CAD for plan. Assessment & Plan (05/20/2024 4:29 PM EST): Hx NSTE MT 09/2017 -continue oscar -Stress test without evidence of ischemia 04/08/18 -he held statin and ASA due to GI upset -trial of restarting statin 01/[address] on 05/08/24 showed Coronary artery atherosclerosis. Pt wants to get reestablished with cardiology. -referral sent 05/20/24 Assessment & Plan (03/22/2023 9:17 AM EST): Hx NSTE MT 09/2017 -continue oscar -Stress test without evidence of ischemia 04/08/18 -he held statin and ASA due to GI upset -trial of restarting statin 01/2019 Assessment & Plan (12/06/2022 8:55 AM EDT): Hx NSTE MT 09/2017 -continue oscar -Stress test without evidence of ischemia 04/08/18 -he held statin and ASA due to GI upset -trial of restarting statin 01/2019 Assessment & Plan (10/11/2022 9:57 AM EDT): Hx NSTE MT 09/2017 -continue oscar -Stress test without evidence of ischemia 04/08/18 -he held statin and ASA due to GI upset -trial of restarting statin 01/2019 Seasonal allergies 06/25/2021 Gender 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 10/03/2018 Overview (03/26/2024): Pt identifies as male and is changed his name in [place] October 2020. -He restarted testosterone 08/2020 -S/p chest reconstruction 10/2018 -Testosterone was 654 on 10/2022 Lab Results Component Value Date TESTTOTAL 1641 (A) 03/18/2024 HGB 16.2 (H) 03/18/2024 HGB 15.8 10/18/2022 HCT 47.3 (H) 03/18/2024 Goal testosterone levels 350-700ng/dl. Assessment & Plan (03/17/2024 6:12 AM EST): Pt identifies as male and is changing his name in [place] October 2020. He restarted testosterone 08/2020 S/p chest reconstruction 10/2018 Pt would like to switch small needle to subcutaneous instead. 25 gague needles sent 12/06/2022 Testosterone was 654 on 10/2022. Assessment & Plan (03/22/2023 9:16 AM EST): Pt identifies as male and is changing his name in [place] October 2020. He restarted testosterone 08/2020 S/p chest reconstruction 10/2018 Pt would like to switch small needle to subcutaneous instead. 25 gague needles sent 12/06/2022 Testosterone was 654 on 10/2022. Assessment & Plan (12/06/2022 11:18 AM EDT): Pt identifies as male and is changing his name in [place] October 2020. He restarted testosterone 08/2020 S/p chest reconstruction 10/2018 Pt would like to switch small needle to subcutaneous instead. 25 gague needles sent 12/06/2022 Testosterone was 654 on 10/2022. Assessment & Plan (10/11/2022 9:59 AM EDT): Pt identifies as male and is changing his name in [place] October 2020. He restarted testosterone 08/2020 S/p chest reconstruction 10/[address] scan, lung 10/04/2017 Overview (05/20/2024): -Ct [facility] on 12/25/2017 showed multiple indeterminate nodules, [...] 11/15/23 and NO SHOW. Pt can call [phone] to schedule mariely. number given to call 03/16/24 -CT 05/08/24 No acute intrathoracic findings. Calcified granulomas present bilaterally. No suspicious pulmonary nodule identified. Air-fluid level present within the midthoracic esophagus can be associated with gastroesophageal reflux disease and esophageal dysmotility. Coronary artery atherosclerosis. Assessment & Plan (05/20/2024 4:05 PM EST): -Ct scan in [place] [facility] on 12/25/2017 showed multiple indeterminate nodules, [...] 11/15/23 and NO SHOW. Pt can call [phone] to schedule mariely. number given to call 03/16/24 -CT 05/08/24 No acute intrathoracic findings. Calcified granulomas present bilaterally. No suspicious pulmonary nodule identified. Air-fluid level present within the midthoracic esophagus can be associated with gastroesophageal reflux disease and esophageal dysmotility. Coronary artery atherosclerosis. Assessment & Plan (03/17/2024 6:13 AM EST): -Ct scan in [place] ER on 12/25/2017 showed multiple indeterminate nodules, [...] 11/15/23 and NO SHOW. Pt can call [phone] to schedule mariely. number given to call 03/16/24 Assessment & Plan (03/22/2023 9:16 AM EST): -Ct scan in [place] ER on 12/25/2017 showed multiple indeterminate nodules, largest was solid and measured 2mm. -Given that the Pt has a tobacco Hx and quit in 2018 we referrred to pulmonology that was likely distrupted by the pandemic. -Will ordered repeat CT of chest to follow the nodles. Assessment & Plan (12/06/2022 10:18 AM EDT): -Ct scan in [place] ER on 12/25/2017 showed multiple indeterminate nodules, [...] referred for OP services and referral to [facility] Psychopharmacology clinic. Provided Crisis contact number [...] treatment engagement. PLAN: 1. Follow up with [facility]: Not recommended for follow-up 2. Patient goal is to learn coping mechanisms to manage sxs. 3. Behavioral Recommendations a. Ind. Therapy and Medication Management b. Continue using coping skills c. [facility] support as needed. Mild major depression 06/25/20212023 Encounters Date Type Department Care Team Description 01/08/2025 Orders Only GENERIC EXTERNAL DATA DEPARTMENT Provider, Generic External Data 01/07/[address] [address] Emilie [place] MD Call Back Request; Injectable PrEP Communication 01/04/2025 Patient Outreach [address] [address] Emilie [place] MD Transition Of Care (Tcm) (HDF unscheduled) 01/04/[address] [address] Emilie [place] MD Nurse Triage 01/04/[address] [address] Emilie [place] MD Hospital Follow-up; No Show (Pt no show for hdf ) 12/29/2024 Orders Only GENERIC EXTERNAL DATA DEPARTMENT Provider, Generic External Data 11/26/2024 9:30 AM EDT Clinical Support [address] [address] Medina Lewis, RN On pre-exposure prophylaxis for HIV (Primary Dx) 11/26/2024 Orders Only 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 [address] [place] [phone] Medina Lewis, RN [address] [place] [address] 03/03/2025 9:30 AM EDT Office Visit [facility] [address] [place] [phone] Emilie [place] MD [address] [place] [address] Health Maintenance Due Date Last Done Comments CT Colonography 1970 FIT DNA/Cologuard 1970 FIT 1970 FOBT 1970 Sigmoidoscopy 1970 Disability Screening 1970 Pneumococcal Vaccine: 50+ Years (2 of 2 - PCV) 09/17/2018 09/17/2017 Colonoscopy 01/30/2023 01/30/2018 Colorectal Cancer Screening 01/30/2023 Zoster Vaccines (1 of 2) 02/01/2023 COVID-19 Vaccine ( season) 2025 06/05/2021, 10/11/2020, 09/14/2020 Influenza Vaccine (#1) 2025 06/18/2019, 2017 SDOH Screening 03/16/2025 03/16/2024 Alcohol/Substance Use Screening 05/20/2025 05/20/2024 Depression Screening 05/20/2025 05/20/2024, 04/30/20 23 Tobacco Screening 10/02/2025 10/02/2024 HPV/Cotest 03/22/2028 03/22/2023, 11/11, 12/06/2017 Pap Smear 03/22/2028 03/22/2023, 12/06/2017 DTaP/Tdap/Td Vaccines (2 - Td or Tdap) 06/18/2029 06/18/2019 Lipid Panel 07/24/2029 07/24/2024, 1110/2023, 10/18/2022, Additional history exists RSV Patients and [...] ABDOMEN 2V+ Routine 01/08/2025 10:50 AM EDT VITAMIN D 25-OH (D2 AND D3) Routine 01/08/2025 10:47 AM EDT AMYLASE Routine [...] EMPTYING SOLID Routine 10/20/2024 8:15 AM EDT LIPID PANEL, STANDARD Routine 07/24/2024 1:36 PM EDT HPV MRNA E6/E7 REFLEX TO HPV 16, 18/45 Routine 03/22/2023 11:30 AM EST PAP SMEAR Routine 03/22/2023 11:30 AM EST COLONOSCOPY Routine 01/30/2018 from Last 3 Months or Most Recently Relevant to Health Maintenance Results * XR Abdomen 2 View minimum (01/08/2025 10:50 AM EDT) Anatomical Region Laterality Modality Abdomen Radiographic [facility] 01/08/2025 10:5 0 AM EDT Narrative 01/08/2025 12:26 PM EDT [address] [address] XRay Report Signed Patient: Harriet Valdez MR#: [id number] : 1970 Acct:[id number] Age/Sex: 54 / F ADM Date: 01/08/25 Loc: [facility] Attending Dr: Aida ASH Ordering Physician: Aida Orozco Date of Service: 01/08/25 Procedure(s): XR abdomen min 2V Accession Number(s): [id number] cc: Emilie [place] MD; Aida Orozco EXAMINATION: [...] 01/08/25 1223 DD/ 1050 TD/TT: 01/08/25 1057 [employer] Supervisor: Procedure Note Donotuseinterpreter, Image - 01/08/[address] [address] XRay Report Signed Patient: Harriet ValdezMR#: [id number] : 1970Acct:[id number] Age/Sex: 54 / FADM Date: 01/08/25 Loc: [facility] Attending Dr: Aida ASH Ordering Physician: Aida Orozco Date of Service: 01/08/25 Procedure(s): XR abdomen min 2V Accession Number(s): [id number] cc: Emilie [place] MD; Aida Orozco EXAMINATION: [...] 01/08/25 1223 DD/ 1050 TD/TT: 01/08/25 1057 [employer] Supervisor: [facility] External Provider IMG XR PROCEDURES Edited Result - Final * (ABNORMAL) VITAMIN D 25-OH (D2 AND D3) (01/08/2025 10:47 AM EDT) Vitamin D, 25-OH, D2 <4 ng/mL [facility] Comment:This test was sinan turner and its analytical performancecharacteristics have been determined by [employer], [place]. It hasnot been cleared or approved by the U.S. Food and DrugAdministration. This assay has been validated pursuantto the CLIA regulations and is used for clinicalpurposes.THIS TEST WAS PERFORMED AT:[employer] [id number] [place] [address]NLZZPKIMARCI ESTEVEZ MD,PHD Vitamin D, 25-OH, D3 28 ng/mL [facility] Comment:This test was develo ped and its analytical performancecharacteristics have been determined by [employer], [place]. It hasnot been cleared or approved by the U.S. Food and DrugAdministration. This assay has been validated pursuantto the CLIA regulations and is used for clinicalpurposes. Vitamin D, 25-OH, Total 28(A) 30 - 100 ng/mL [facility] Comment:Vitamin D, 25-Hydrox y reports concentrations of twocommon forms, 25-OHD2 and 25-OHD3. 25-OHD3 indicatesboth endogenous production and supplementation.25-OHD2 is an indicator of exogenous sources such asdiet or supplementation. Therapy is based onmeasurement of Total 25-OHD, with levels <20 ng/mLindicative of Vitamin D deficiency, while levelsbetween 20 ng/mL and 30 ng/mL suggest insufficiency.Optimal levels are > or = 30 ng/mL.For additional information, please refer tohttp://education.[employer]/faq/EDM928(This link is being provided for informational/educational purposes only.) 01/08/2025 10:4 7 AM EDT 01/08/2025 10:47 AM EDT us Generic External Data Provider LAB BLOOD ORDERAB LES Final Result [facility] [address] [place] [phone] * Sed Rate by Modified Marcela (01/08/2025 10:47 AM EDT) Erythrocyte Sedimentation Rate 9 0 - 20 MM/HR [facility] Comment:Patients with polycy themia and many hemoglobin abnormalitiesmay have depressed sed rates whereas patients with anemiamay have elevated sed rates. 01/08/2025 10:4 7 AM EDT 01/08/2025 10:47 AM EDT us Generic External Data Provider LAB BLOOD ORDERAB LES Final Result Performing Organization Address [facility] de Phone Number [facility] [address] [place] [phone] * C-reactive Protein (01/08/2025 10:47 AM EDT) C Reactive Protein <0.10 < or = 0.50 mg/dL [facility] 01/08/2025 10:4 7 AM EDT 01/08/2025 10:47 AM EDT Generic External Data Provider LAB BLOOD ORDERAB LES Final Result Performing Organization Address [facility] Phone Number [facility] [address] [place] [phone] * Lipase (01/08/2025 10:47 AM EDT) Only the most recent of2 resultswithin the time period is included. Lipase 33 8 - 78 U/L [facility] 01/08/2025 10:4 7 AM EDT 01/08/2025 10:47 AM EDT Generic External Data Provider LAB BLOOD ORDERAB LES Final Result Performing Organization Address [facility] de Phone Number [facility] [address] [place] [phone] * (ABNORMAL) Amylase (01/08/2025 10:47 AM EDT) Amylase 114(H) 28 - 100 U/L [facility] 01/08/2025 10:4 7 AM EDT 01/08/2025 10:47 AM EDT us Generic External Data Provider LAB BLOOD ORDERAB LES Final Result [facility] [address] [place] [phone] * (ABNORMAL) Drug Monitoring, Panel 1, Screen, Urine (12/29/2024 1:09 PM EDT) Opiate Screen Urine Not Detected Not Detect [facility] Comment:Opiate cut-off is 30 0 ng/mL.Positive results are unconfirmed and should not be used fornon-medical purposes. Barbiturates, Urine Not Detected Not Detect [facility] Comment:Barbiturate cut-off is 200 ng/mL.Positive results are unconfirmed and should not be used fornon-medical purposes. Phencyclidine Screen Urine Not Detected Not Detect [facility] Comment:Phencyclidine cut-of f is 25 ng/mL.Positive results are unconfirmed and should not be used fornon-medical purposes. Amphetamine Screen Urine Not Detected Not Detect [facility] Comment:Amphetamine cut-off is 1000 ng/mL.Positive results are unconfirmed and should not be used fornon-medical purposes. Benzodiazepines Screen Urine Not Detected Not Detect [facility] Comment:Benzodiazepine cut-o ff is 200 ng/mL.Positive results are unconfirmed and should not be used fornon-medical purposes. Cocaine Screen Urine Not Detected Not Detect [facility] Comment:Cocaine cut-off is 3 00 ng/mL.Positive results are unconfirmed and should not be used fornon-medical purposes. Cannabinoid Screen Urine POSITIVE(A) Not Detect [facility] Comment:Cannabinoid cut-off is 50 ng/mL.Positive results are unconfirmed and should not be used fornon-medical purposes. Methadone Screen, Urine Not Detected Not Detect ng/mL [facility] Comment:Methadone cut-off is 300 ng/mL.Positive results are unconfirmed and should not be used fornon-medical purposes. FENTANYL URINE Not Detected Not Detect [facility] Comment:Fentanyl cut-off is 1 ng/mL.Positive results are unconfirmed and should not be used fornon-medical purposes. Oxycodone Urine Screen Not Detected Not Detect ng/mL [facility] Comment:Oxycodone cut-off is 100 ng/mL.Positive results are unconfirmed and should not be used fornon-medical purposes. Buprenorphine Screen Not Detected Not Detect ng/mL [facility] Comment:Buprenorphine cut-of f is 5 ng/mL.Positive results are unconfirmed and should not be used fornon-medical purposes. 12/29/2024 1:09 PM EDT 12/29/2024 1:16 PM EDT Generic External Data Provider LAB URINE ORDERAB LES Final Result Performing Organization Address [facility] Co de Phone Number [facility] [address] [place] [phone] * Urinalysis w/reflex microscopic (12/29/2024 1:09 PM EDT) Color Urine Yellow [facility] Appearance Urine Clear [facility] PH 8.0 5.0 - 9.0 [facility] Glucose Urine UA Negative Negative mg/dL [facility] Urine Blood Negative Negative [facility] Specific [place] - Urine 1.015 1.005 - 1.025 [facility] Urine Protein Negative Neg-Trace mg/dL [facility] Urine Ketones Negative Negative mg/dL [facility] Nitrite Urine Negative Negative [facility] Leukocyte Esterase Urine Negative Negative [facility] 12/29/2024 1:09 PM EDT 12/29/2024 1:16 PM EDT Narrative [facility] - 12/29/2024 1:22 PM EDT Urine, Clean Catch Generic External Data Provider LAB URINE ORDERAB LES Final Result Performing Organization Address [facility] Co de Phone Number [facility] [address] [place] [phone] * CT Abdomen Pelvis w/ Contrast (12/29/2024 12:55 PM EDT) Anatomical Region Laterality Modality Body, Pelvis, Abdomen Computed T omography 12/29/2024 12:5 5 PM EDT Narrative 12/29/2024 1:42 PM EDT [address] [address] [address] Scan Report Signed Patient: Harriet Valdez MR#: [id number] : 1970 Acct:[id number] Age/Sex: 54 / F ADM Date: 12/29/24 Loc: HO.ED Attending Dr: Ordering Physician: Cheryl Cobb DO Date of Service: 12/29/24 Procedure(s): CT abdomen pelvis w IV con Accession Number(s): [id number] cc: Emilie [place] MD; Cheryl Cobb DO Report Number: [id number]: Total DLP = 296.00 mGy-cm EXAMINATION: CT [...] 12/29/24 1340 DD/ 1255 TD/TT: 12/29/24 1329 [employer] Supervisor: Procedure Note Donotuseinterpreter, Image - 12/29/[address] [place] [address] [address] Scan Report Signed Patient: Harriet ValdezMR#: [id number] : 1970Acct:[id number] Age/Sex: 54 / FADM Date: 12/29/24 Loc: HO.ED Attending Dr: Ordering Physician: Cheryl Cobb DO Date of Service: 12/29/24 Procedure(s): CT abdomen pelvis w IV con Accession Number(s): [id number] cc: Emilie [place] MD; Cheryl Cobb DO Report Number: [id number]: Total DLP = 296.00 mGy-cm EXAMINATION: CT [...] 12/29/24 1340 DD/ 1255 TD/TT: 12/29/24 1329 [employer] Supervisor: [facility] External Provider IMG CT PROCEDURES Final Result * (ABNORMAL) CBC auto differential (12/29/2024 10:00 AM EDT) White Blood Count 10.1 4.8 - 10.8 X10*3/uL [facility] Red Blood Count 4.83 4.20 - 5.50 X10*6/uL [facility] Hemoglobin 14.4 12.0 - 16.0 g/dl [facility] Hematocrit 43.0 37.0 - 47.0 % [facility] Mean Corpuscular Volume 89.0 80.0 - 98.0 fL [facility] Mean Corpuscular Hemoglobin 29.8 27.0 - 33.0 pg [facility] Mean Corpuscular HGB Conc 33.5 31.0 - 35.0 g/dl [facility] Red Cell Distribution Width 14.2 11.0 - 16.0 % [facility] Platelet Count 340 160 - 400 X10*3/uL [facility] Mean Platelet Volume 9.0(L) 9.4 - 12.3 fL [facility] Neutrophils Percent Auto 60.1 45 - 73 % [facility] Imm Gran Pct Auto 0.4 0.0 - 0.4 % [facility] Lymphocytes Percent Auto 32.8 20 - 40 % [facility] Monocytes Percent Auto 4.9 2 - 11 % [facility] Eosinophils Percent Auto 1.2 0 - 4 % [facility] Basophils Percent Auto 0.6 0 - 2 % [facility] NRBC Pct Auto 0.0 0.0 - 0.2 /100WBC [facility] Neutrophils Absolute Auto 6.1 2.0 - 8.3 x10*3/uL [facility] Imm Gran Abs Auto 0.04(H) 0.00 - 0.03 X10*3/uL [facility] Lymphocytes Absolute Auto 3.3 1.2 - 4.9 X10*3/uL [facility] Monocytes Absolute Auto 0.5 0.1 - 1.2 X10*3/uL [facility] Eosinophils Absolute Auto 0.1 0.0 - 0.4 X10*3/uL [facility] Basophils Absolute Auto 0.1 0.0 - 0.2 X10*3/uL [facility] NRBC Abs Auto 0.000 0.0 - 0.012 X10*3/uL [facility] 12/29/2024 10:0 0 AM EDT 12/29/2024 10:02 AM EDT us Generic External Data Provider LAB BLOOD ORDERAB LES Final Result Performing Organization Address City/[facility] Co de Phone Number [facility] [address] [place] [phone] * Hepatic Function Panel (12/29/2024 10:00 AM EDT) Bilirubin, Total 0.4 0.0 - 1.0 mg/dL [facility] Bilirubin, Direct 0.1 0.0 - 0.5 mg/dL [facility] Aspartate Amino Transferase 26 5 - 31 U/L [facility] Alanine Aminotransferase 19 0 - 31 U/L [facility] Total Protein 7.6 6.5 - 8.0 g/dL [facility] Albumin Level 4.4 3.5 - 5.0 g/dL [facility] Alkaline Phosphatase 90 39 - 117 U/L [facility] 12/29/2024 10:0 0 AM EDT 12/29/2024 10:02 AM EDT us Generic External Data Provider LAB BLOOD ORDERAB LES Final Result [facility] [address] [place] [phone] [phone] * (ABNORMAL) Basic Metabolic Panel (12/29/2024 10:00 AM EDT) Pathologist [facility] Sodium 142 135 - 145 mmol/L [facility] Potassium 4.0 3.3 - 5.1 mmol/L [facility] Chloride 107 96 - 108 mmol/L [facility] Carbon Dioxide 30(H) 22 - 29 mmol/L [facility] Anion Gap 9(L) 12 - 20 [facility] Urea Nitrogen (BUN) 10 9 - 16 mg/dL [facility] Creatinine, Serum 0.75 0.5 - 1.4 mg/dL [facility] Creatinine Clr Calc Pharmacy 66.2 [facility] Comment:Provided height and weight: 162.56 cm,49.5 kg.eGFR (calculated from the MDRD study equation) and eCrCl(calculated from the Cockcroft-Gault equation) are based ondifferent parameters and may not yield comparable results.If eCrCl result is absurd, please check patient'sheight/weight. Estimated Glomerular Filt Rate >60 [facility] Comment:Chronic Kidney Disea se: Estimated GFR < 60 mL/min/1.81r4Vemdyn Kidney Disease: Estimated GFR < 15 mL/min/1.73m2 Glucose 117(H) 60 - 115 mg/dL [facility] Calcium 9.3 8.4 - 10.2 mg/dL [facility] 12/29/2024 10:0 0 AM EDT 12/29/2024 10:02 AM EDT us Generic External Data Provider LAB BLOOD ORDERAB LES Final Result Performing Organization Address City/[facility]/ZIP Co de Phone Number [facility] [address] [place] [address] [phone] * (ABNORMAL) Confirmatory Syphilis Profile (11/26/2024 1:24 PM EDT) Rapid Plasma Reagin, Quant Non-React darren Nonreactive [facility] Treponema pallidum Antibody, Particle Agglutination Reactive( A) Nonreactive [facility] Comment:These results must b e reported by the ordering clinician orclinical facility to the [facility] required by state law.Testing performed at: [address] [address] 11/26/2024 1:24 PM EDT 11/27/2024 3:54 AM EDT Emilie Davis MD LAB BLOOD ORDERABLES Final Result [facility] [address] [place] [phone] * (ABNORMAL) Syphilis Screen (11/26/2024 1:24 PM EDT) Pathologist [facility] Syphilis Screen Reactive( A) Nonreactive [facility] Comment:Reactive specimens a re sent to the [facility]for confirmatory tests. 11/26/2024 1:24 PM EDT 11/26/2024 4:06 PM EDT Emilie Davis MD LAB BLOOD ORDERABLES Final Result Performing Organization Address City/[facility]/ZIP Co de Phone Number [facility] [address] [place] [phone] * Hepatitis C Viral RNA, Quantitative, Real-Time PCR (11/26/2024 1:24 PM EDT) [facility] Hepatitis C Viral Load <15 NOT DETECTED NOT DETECTED IU/mL [facility] HCV Log PCR <1.18 NOT DETECTED NOT DETECTED Log IU/mL [facility] Comment:For additional infor nura, please refer tohttp://education.IForem/faq/MZW63s3(This link is being provided for informational/educational purposes only.)THIS TEST WAS PERFORMED AT:[facility] [place] [phone] MALDONADO MD 11/26/2024 1:24 PM EDT 11/27/2024 2:28 PM EDT Emilie Davis MD LAB BLOOD ORDERABLES Final Result Performing Organization Address [facility]/ZIP Co de Phone Number [facility] [address] [place] [phone] * (ABNORMAL) Hepatitis C Antibody with Reflex to HCV, RNA, Quantitative, Real- Time PCR (11/26/2024 1:24 PM EDT) Hepatitis C Antibody Reactive( A) Nonreactive [facility] Comment:Presumptive evidence of antibodies to HCV. 11/26/2024 1:24 PM EDT 11/26/2024 4:06 PM EDT Emilie Davis MD LAB BLOOD ORDERABLES Final Result Performing Organization Address [facility] de Phone Number [facility] [address] [place] [phone] * Methylmalonic Acid (11/26/2024 1:24 PM EDT) Methylmalonic Acid 197 55 - 335 nmol/L [facility] Comment: Serum methylmalonic acid (MMA) levels [...] outcomes,such as neural tube defects and intrauterine growthrestriction.[facility] utilized Multi-Modal Decomposition(MMD) analysis to establish first and second trimester-specific MMA reference intervals in , as givenbelow:MMA, First trimester (<13 wks gestation): 58-167 nmol/LMMA, Second trimester (13-23 wks gestation):63-241 nmol/LThis test was developed and its analytical performancecharacteristics have been determined by [employer]. It has not been cleared or approved by theA. This assay has been validated pursuant to the CLIAregulations and is used for clinical purposes.THIS TEST WAS PERFORMED AT:[facility]JSW[facility] [place] [address]NQXAOZUMARCI ESTEVEZ MD,PHD 11/26/2024 1:24 PM EDT 11/26/2024 4:06 PM EDT us Generic External Data Provider LAB BLOOD ORDERAB LES Final Result Performing Organization Address [facility]/ZIP Co de Phone Number [facility] [address] [place] [phone] * HIV-1 RNA, Quantitative, Real-Time PCR (11/26/2024 1:24 PM EDT) Pathologist [facility] HIV RNA PCR Qn Copies NOT DETECTED NOT DETECTED copies/mL [facility] HIV RNA PCR Qn Log Copies NOT DETECTED NOT DETECTED [facility] Comment:Result Units: Log co pies/mLThis test was performed using Real-Time Polymerase ChainReaction.Reportable Range: 20 copies/mL to 10,000,000 copies/mL(1.30 log copies/mL to 7.00 log copies/mL).THIS TEST WAS PERFORMED AT:[facility] [address] [phone] MALDONADO MD 11/26/2024 1:24 PM EDT 11/26/2024 4:06 PM EDT Emilie Davis MD LAB BLOOD ORDERABLES Final Result Performing Organization Address [facility] Co de Phone Number [facility] [address] [place] [phone] * RPR (Monitor) with Reflex to??Titer (11/26/2024 1:24 PM EDT) RPR (Monitor) w/Refl Titer NON-REACTI VE NON-REACT DARREN [facility] Comment:THIS TEST WAS PERFOR MED AT:[facility] [place] [phone] MALDONADO MD Rapid Plasma Reagin Ab Titer TNP [facility] 11/26/2024 1:24 PM EDT 11/26/2024 4:06 PM EDT Emilie Davis MD LAB BLOOD ORDERABLES Final Result [facility] [address] [place] [phone] * POCT RAPID HIV SCREENING (11/26/2024 10:08 AM EDT) Blood 11/26/2024 10:0 8 AM EDT Narrative Medina Lewis RN - 11/26/2024 10:08 AM EDT Negative Emilie Davis MD POINT OF CARE TEST ENTER/E DIT ORDERABLES Final Result * NM Gastric Emptying Solid (10/20/2024 8:15 AM EDT) Anatomical Region Laterality Modality Body Nuclear Medicine 10/20/2024 8:15 AM EDT Narrative 10/20/2024 1:44 PM EDT [address] [address] Nuclear Medicine Report Signed Patient: Harriet Valdez MR#: [id number] : 1970 Acct:[id number] Age/Sex: 54 / F ADM Date: 10/20/24 Loc: ANJU Attending Dr: Aida ASH Ordering Physician: Aida Orozco Date of Service: 10/20/24 Procedure(s): NM gastric emptying study Accession Number(s): [id number] cc: Emilie Davis MD; Aida Orozco EXAMINATION: [...] 10/20/24 1341 DD/ 0815 TD/TT: 10/20/24 1235 [employer] Supervisor: [facility] Procedure Note Donotuseinterpreter, Image - 10/20/[address] [address] Nuclear Medicine Report Signed Patient: Harriet ValdezMR#: [id number] : 1970Acct:[id number] Age/Sex: 54 / FADM Date: 10/20/24 Loc: ANJU Attending Dr: Aida ASH Ordering Physician: Aida Orozco Date of Service: 10/20/24 Procedure(s): NM gastric emptying study Accession Number(s): [id number] cc: Emilie Davis MD; Aida Orozco EXAMINATION: [...] grading per JNMT Consensus Recommendations in 2008 (https://tech.snmjournals.org/content/44) Grade 1 (mild retention): 11-20% at 4h Grade 2 (moderate retention): 21-35% at 4h Grade 3 (severe retention): 36-50% at 4h Grade 4 (very severe retention): >50% retention at 4h Electronically signed by: Jimmy Pedroza MD 10/20/2024 01:41 PM EDT RP Dictated By: Jimmy Pedroza MD Signed By: <Electronically signed by Jimmy Pedroza MD in OV> 10/20/24 1341 DD/ 0815 TD/TT: 10/20/24 1235 [employer] Supervisor: [facility] External Provider IMG NM PROCEDURES Final Result * (ABNORMAL) Lipid Panel, Standard (07/24/2024 1:36 PM EDT) Triglycerides 141 <150 mg/dL [facility] Comment:Desirable Triglyceri de: less than 150 mg/dLBorderline High Triglyceride 150-199 mg/dLHigh Triglyceride: 200-499 mg/dLVery High Triglyceride: greater than or equal to 5OO mg/dL Cholesterol 205(H) <200 mg/dL [facility] Comment:Desirable Cholestero l: less than 200 mg/dLBorderline High Cholesterol: 200-239 mg/dLHigh Cholesterol: greater than 239 mg/dL LDL Cholesterol Calculated 114(H) <100 mg/dL [facility] Comment:Desirable LDL: less than 100 mg/dLNear Optimal/Above Optimal LDL: 110- 129 mg/dLBorderline High LDL: 130-159 mg/dLHigh LDL: 160-189 mg/dLVery High LDL: greater than or equal to 190 mg/dL HDL Cholesterol 63 >40 mg/dL [facility] Comment:Desirable HDL: great er than 40 mg/dL Note: This HDL assay may give artificially low results in patients with liver disease. 07/24/2024 1:36 PM EDT 07/24/2024 4:20 PM EDT Generic External Data Provider LAB BLOOD ORDERAB LES Final Result Performing Organization Address [facility]/ZIP Co de Phone Number [facility] [address] [place] [phone] * HPV mRNA E6/E7 w/Reflex to HPV Genotypes 16, 18/45 (03/22/2023 11:30 AM EST) HPV nRNA E6/E7 Not Detected Not Detected [facility] Comment:Methodology: Transcr iption-Mediated AmplificationThis assay detects E6/E7 viral messenger RNA (mRNA) from 14high-risk HPV types (16,18,31,33,35,39,45,51,52,56,58,59,66,68).Cervical sources are required for HPV testing.If a vaginal source from a patient who has had atotal hysterectomy with removal of cervix wassubmitted, please contact the testing laboratoryfor alternative testing options.For additional information, please refer tohttp://education.IForem/faq/GQW461g5(This link if provided for information/educational purposes only.)THIS TEST WAS PERFORMED AT:[facility] [place] [phone] MALDONADO MD HPV mRNA E6/E7 [facility] HPV 16 RNA [facility] HPV 18/45 RNA [facility] 03/22/2023 11:3 0 AM EST 03/25/2023 12:20 PM EST Emilie Davis MD LAB CYTOLOGY ORDERABLES Fi nal Result [facility] [address] [place] [phone] [phone] * Pap Smear (03/22/2023 11:30 AM EST) 03/22/2023 11:3 0 AM EST 03/25/2023 12:20 PM EST Narrative [facility] - 04/11/2023 11:26 AM EST ----- ------- Name: Harriet Valdez Age/Sex: 53/F : 1970 Unit#: [id number] Attend Dr: RADHA VILLAREAL MD Re03/22/23 Status: DEP [facility] ----- ------- SPEC : [id number] RECD: 03/25/23-0 STATUS: JANIE DUNLAP NUM: [id number] AMBREEN: 03/22/23 [facility] [address]: Emilie Davis MD ENTERED: 03/25/23-6610 SP TYPE: Pap Smr [facility] DR: ORDERED: Pap Smear Interpretation Satisfactory for evaluation. Negative for intraepithelial lesion or malignancy. HPV mRNA E6/E7: NOT DETECTED This assay detects E6/E7 viral messenger RNA (mRNA) from 14 high-risk HPV types (16, 18, 31, 33, 35, 39, 45, 51, 52, 56, 58, 59, 66, 68) HPV testing performed by [facility], [place], [place]. See reference laboratory portion of the EMR for entire report. Clinical Information LMP: Unknown date Previous PAP test: Unknown date, WNL Other history: Pt on testosterone, surgical post menopause Material Received ThinPrep-Cervical ----- ------- Signed (signature on file) SERENA Alejandro ([facility]) 04/11/23 1126 ----- ------- END OF REPORT Emilie Davis MD LAB CYTOLOGY ORDERABLES Fi nal Result [facility] [address] [place] [phone] * Colonoscopy (01/30/2018) Colonoscopy normal Historical Provider HEALTH MAINTENANCE Final Result from Last 3 Months or Most Recently Relevant to Health Maintenance Insurance [facility] [address] [place] [address] * Guarantor: Harriet Valdez Account Type Relation to Patient Date of Phone Billing Address Personal/Family Self [facility] [address] * Guarantor: Harriet Valdez Account Type Relation to Patient Date of Phone Billing Address Personal/Family Self [facility] [place] [address] Advance Directives Documents on File Type Date Recorded 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 Mechanic Expl 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
--- OUTSIDE RECORDS SUMMARY | 2025-01-14 10:17 | XMS_ITS | Encounter Summary ---
Author Organization [facility] Address [address] [place] [phone] Phone Care Team Providers Care Two Way Radio Installer Name Role Phone Emilie Davis MD Primary Care Provi baldomero Encounter Details Date Type Department Care Team (Late st Contact Info) Description 10/28/2018 Procedure Pass OR Admitting Dept - Virtual Department [address] [place] [phone] Social History Tobacco Use Types Packs/Day Years [...] on filedocumented in this encounter Care Teams Two Way Radio Installer Relationship Specialty Start Date End Date Emilie Davis MD [address] [place] [phone] PCP - General Family Medicine 06/03/18 documented as of this encounter Additional Source Comments The information contained in this document represents components of the legal health record. It is not the complete legal health record.[facility]
== END 2025-01-14 09:32 | disposition home or self-care (01) ==
LOC: HO.XRAY 09:31
PROVIDERS: PCP Family Medicine; Visit Provider Nurse Practitioner
DX: R11.10 Vomiting, unspecified (principal); K21.9 Gastro-esophageal reflux disease without esophagitis
CPT/HCPCS: 74220

== ENCOUNTER → 2025-01-14 09:33 | Outpatient (BNV) | payer OTHER, SELFPAY | PROVIDERS: PCP Family Medicine; Visit Provider Radiology Diagnostic Radiology | DX: R13.10 Dysphagia, unspecified (principal) | CPT/HCPCS: 74220 ==

== ENCOUNTER 2025-01-14 15:22 | Emergency (ER) | payer OTHER, SELFPAY ==
--- OUTSIDE RECORDS SUMMARY | 2025-01-07 05:15 | XMS_ITS | Continuity of Care Document ---
Author Organization [facility] Address [address] [place] [address] [address] [place] [address] Phone Care Team Providers Care [employer] Name Role Phone Josue MARISCAL, KATHY, Manish POWELL Unavailable U navailable Allergies, Adverse Reactions, Alerts Substance Reaction Status Criticality PENICILLIN Active No Information Procedures Procedure Date Endovenous Laser, 1st Vein- CT & [place] Offic/outpt E&m Estab 5 Min Trial- Telem edicine CT & [place] Offic Cons New/estab Mod 40 Mi- CT & [place] Surgical Stockings CVR Reveal Thigh High Duplex Scan-extrem Veins; Comp- CT & [place] Advance Directives Directive Yes / No Effective Date File Name No Information Encounters Encounter Description Practice Location Reason(s) For Visit Diagnoses Date Provider Providers Copied on Encounter [facility], [address] [place] [address] [address], [place], [id number], [place] tel:[phone] CV[place] - [place] Varicose veins of right lower extremity with other complications Josue MARISCAL, KATHY, ANDRE Hammond. [address] [facility], [address], [facility] [id number] , [place]. tel:[phone] Referring Provider: Emilie Way, [address] [place] [address], [place], [address]. tel:[phone] [facility], [address] [place] [address] Dr [address]Suite [place] Strong [place], [id number], [place] tel:[phone] [facility] No Information 5 Josue MARISCAL RVT, ANDRE Hammond. [address] [address], [place], [place], [id number] , [place]. tel:[phone] Offic/outpt E&m Estab 5 Min Trial- Telemedicine CT & [place] [facility], [address] [place] [address] Dr [address] [place], [id number], [place] tel:[phone] [facility] venous hypertension (idiopathic) with other complications of bilateral lower extremity 5 Josue MARISCAL RVT, ANDRE Hammond. [facility] [address], [place], [place], [id number] , [place]. tel:[phone] Referring Provider: Emilie Way, [address] [place] [address], [place], [address]. tel:[phone] Offic Cons New/estab Mod 40 Mi- CT & [place] [facility], [address] [place] [address] Dr [address] [place], [id number], [place] tel:[phone] [facility] Chronic venous hypertension (idiopathic) without complications of bilateral lower extremityRestl ess legs syndromePrurit us, unspecifiedPai n in left legCramp and spasmLocalized edema 5 Josue MARISCAL RVT, ANDRE Hammond. [facility] [address], [place], [place], [id number] , [place]. tel:[phone] Referring Provider: Emilie Way, [address] [place] [address], [place], [address]. tel:[phone] [facility], [address] [place] [address] [address] [place], [id number], [place] tel:[phone] [facility] Varicose veins of bilateral lower extremities with pain Josue MARISCAL, RVT, RPVI Manish. [address] [facility], [address], [facility] [place], [id number] , [place]. tel:[phone] Referring Provider: Emilie [place], [address] [facility], [place], [address]. tel:[phone] Family History Family Member Type Diagnosis Age At Onset No Information Payers Payer name Insurance type Covered democrat ID Authorchela gomez(s) [facility] CI [id number] Social History Type Description Quantity Date Captured Comments Sex Female Smoking Status No Information Gender Identity Male Chief Complaint And Reason For Visit No [...] Information Instructions Date Instruction Additional Infor mation Patient education booklet given Related to Chronic venous hypertension (idiopathic) with other complications of bilateral lower extremity Pre and post instruc tions reviewed and provided Related to Chronic venous hypertension (idiopathic) with other complications of bilateral lower extremity Diet education Giving Encouragement to exercise Lifestyle education Patient education booklet given Related to Chronic venous hypertension (idiopathic) without complications of bilateral lower extremity Pre and post instruc tions reviewed and provided Related to Chronic venous hypertension (idiopathic) without complications of bilateral lower extremity Assessments Type Assessment Date No Information Patient Care Teams Name Effective Dates (start - stop) Status Members No Information
[2025-01-14 15:25] VITALS: BP 107/59; PULSE 72; RESP 16; TEMP 36.3; O2SAT 97; BMI 21.2
--- NOTE | 2025-01-14 15:27 | ED_ITS ---
HPI - General Adult General Chief complaint: Recheck/Abnormal Lab/Rx Stated complaint: abnormal barium swallow test Time Seen by Provider: 01/14/25 19:17 Source: patient Mode of arrival: ambulatory Limitations: no limitations History of Present Illness ED Provider: DEO PARKER narrative: 54 yo patient with PMH of GERD, depression, pancreatitis, HLD, constipation, HTN here with c/o having barium swallow today and being told to come to ED. He notes he can swallow water and eat pureed foods. He has no pain. He does sometimes vomit but he can keep water down. He has no fevers. FL/FL barium swallow IMPRESSION: High-grade stenosis/narrowing distal esophagus likely junction resulting in ballooning of mid and distal esophagus with thick barium and solid food which clears following oral administration of water. MD complaint: abnormal barium swallow Location: neck Radiation: non-radiation Severity: mild Relieving factors: none Exacerbating factors: eating Associated symptoms: nausea/vomiting Treatments prior to arrival: none Related Data Home Medications ?Medication ?Instructions ?Recorded ?Confirmed cabotegravir 600 mg/3 mL (200 600 mg IM [id number] 05/2601/12/25 mg/mL) IM suspension,extended release (Apretude) sucralfate 100 mg/mL oral 20 ml PO DAILY PRN ULCERS 01/12/25 suspension cholecalciferol (vitamin D3) 1,250 1,250 mcg PO Q2W 01/12/25 mcg (50,000 unit) capsule Previous Rx's ?Medication ?Instructions ?Recorded nozlqxwrqi-qtaelcqyueahd-dlmplkhs 1 cap PO Q4-6H PRN h eadache #10 09/07/24 50 mg-300 mg-40 mg capsule caps (Fioricet) Oxygen Home Use #3 ea 09/24/24 naratriptan 2.5 mg tablet See Rx Instructions PO .COMP ABBEY 09/24/24 PRN migraine headache 30 days #12 tabs magnesium oxide 400 mg (241.3 mg 400 mg PO BEDTIME 30 days #30 tabs 09/25/24 magnesium) tablet galcanezumab-gnlm 300 mg/3 mL (100 300 mg (3 mL) subcu t QMONTH 30 12/27/24 mg/mL x 3) subcutaneous syringe days #3 mL (Emgality) famotidine 40 mg tablet (Pepcid) 40 mg PO BEDTIME #30 tabs 01/08/25 linaclotide 290 mcg capsule 290 mcg PO QAM 30 days #30 caps 01/08/25 (Linzess) ottlcf-ciqbwwnw-bbvsazy 2 cap PO BID 30 days #120 ca ps 01/08/25 3,000-9,500-15,000 unit capsule, delayed rel (Creon) Allergies Allergy/AdvReac Type Severity Reaction Status Date / Time black pepper Allergy Severe Anaphylaxis Verified 01/14/25 15:26 Penicillins (PENICILLINS) Allergy Intermediate HIVES,SWELL Verified 01/14/25 15:26 ING sumatriptan (SUMATRIPTAN) AdvReac Severe PT STATES Verified 01/14/25 15:26 HEART ATTACK Review of Systems 2 Review of Systems: Constitutional : No Fever, No Chills, No Fatigue ENT/Mouth : No sore throat, No Rhinorrhea Eyes: No Eye Pain, No Swelling, No Redness Cardiovascular : No Chest Pain, No SOB, No Dyspnea on Exertion Respiratory : No Cough, No Sputum Gastrointestinal : pos Nausea, pos Vomiting, No Diarrhea, No abdominal Pain Genitourinary : No Dysuria, No Urinary Frequency, No Hematuria, Musculoskeletal : No joint pain, No Myalgias, No Joint Swelling Skin : No Skin Lesions, No rash Neuro : No Weakness, No Numbness, No Dizziness, no headache All other systems reviewed and are negative [facility] Past Medical History Attestation statement: The following information was validated with the patient. Source: old records reviewed Medical History Erosive esophagitis Abdominal pain Sleep difficulties Upper abdominal pain Vomiting LEE (dyspnea on exertion) Arthritis Occipital neuralgia of left side New onset headache Diverticulosis of colon Chronic, continuous use of opioids Chronic GERD Palpitations Hypotension History of palpitations Dysphagia Disc degeneration, lumbar Spondylosis of lumbar spine Depression Past heart attack Hyperlipemia Erosive osteoarthritis of hands, bilateral GERD (gastroesophageal reflux disease) Hypertension Surgical History History of cholecystectomy Hx of colonoscopy History of esophagogastroduodenoscopy (EGD) H/O bilateral mastectomy H/O: hysterectomy Family History Family History Mother Hypertension Breast cancer Maternal Grandmother Myocardial infarct Skin cancer Sister Heart problem Breast cancer Family/Other Esophageal cancer Social History Social History Household Members: Family Housing: Apartment Alcohol intake: never Patient Tobacco Use Status: Former Tobacco user Substance Use Type: Marijuana Advance Directives: No Advance Directives Information Provided: Yes service: No Physical Exam ED Vital Signs: Vital Signs - 24 hr 01/14/25 15:25 01/14/25 18:48 01/14/25 20:06 Temperature 97.4 F 97.7 F 98.3 F Pulse Rate 72 50 56 Respiratory Rate 16 16 16 Blood Pressure 107/59 L 117/76 122/78 Pulse Oximetry 97 100 98 Oxygen Delivery Method Room Air Room Air BMI result Body Mass Index 21.2 Appearance: Alert. Oriented X3. No acute distress. Eyes: Pupils equal, round and reactive to light. ENT: Pharynx normal. MMM Neck: Normal inspection. Neck supple. CVS: Normal heart rate and rhythm. Pulses normal. Respiratory: No respiratory distress. Breath sounds normal. Abdomen: Soft and nontender. Skin: Skin warm and dry. Normal skin color. Normal skin turgor. Extremities: No lower extremity edema. Neuro: Oriented X 3. No motor deficit. No sensory deficit. CN2-12 intact Course Course Course Narrative: This is a rapid medical exam performed by Harmony Lucio NP: Additional HPI, ROS, PE not included below will be deferred to primary provider. Patient is a 54-year-old assigned female at referred to the ED by Aida Orozco after abnormal barium swallow, sent here for esophageal dilation, told patient to come in emergently. Barium study showing high-grade stenosis. Plan: will order pre-procedural EKG and labs Medical Decision Making Medical Decision Making MDM Narrative: 54 yo patient with PMH of GERD, depression, pancreatitis, HLD, constipation, HTN here with c/o abnormal barium swallow he is well hydrated he has no pain no vomiting he did eat and drink today - I am going to consult GI to discuss plan of care. He is tolerating saliva has normal voice and is not vomiting Differential Diagnosis Differential Diagnoses: The differential diagnosis associated with the presentation includes dysphagia, abnormal BS, dehydration Admission/Observation Consideration of admission/observation: Escalation of care including admission/observation considered he wants to go home and come back he does not want to stay he refuses IV Consult Healthcare Provider Management of the patient was discussed with: Party Planner Mukesh - follow up tomorrow 1230pm for EGD, NPO at 1230am Lab Data MDM Lab Attestation statement: I reviewed the patient's lab results. 01/14/25 15:40 01/14/25 15:40 Labs: Lab Results 01/14/25 Range/Units 15:40 WBC 9.0 (4.8-10.8) X10*3/uL RBC 4.50 (4.20-5.50) X10*6/uL Hgb 13.3 (12.0-16.0) g/dl Hct 39.1 (37.0-47.0) % MCV 86.9 (80.0-98.0) fL MCH 29.6 (27.0-33.0) pg MCHC 34.0 (31.0-35.0) g/dl RDW 13.8 (11.0-16.0) % Plt Count 312 D (160-400) X10*3/uL MPV 8.9 L (9.4-12.3) fL Immature Gran % (Auto) 0.2 (0.0-0.4) % Neut % (Auto) 57.2 (45-73) % Lymph % (Auto) 34.6 (20-40) % Maries % (Auto) 6.5 (2-11) % Eos % (Auto) 1.1 (0-4) % Baso % (Auto) 0.4 (0-2) % Lymph # (Auto) 3.1 (1.2-4.9) X10*3/uL Maries # (Auto) 0.6 (0.1-1.2) X10*3/uL Eos # (Auto) 0.1 (0.0-0.4) X10*3/uL Baso # (Auto) 0.0 (0.0-0.2) X10*3/uL Abs Immat Gran (auto) 0.02 (0.00-0.03) X10*3/uL Absolute Neuts (auto) 5.1 (2.0-8.3) x10*3/uL Absolute Nucleated RBC 0.000 (0.0-0.012) X10*3/uL Nucleated RBC % (auto) 0.0 (0.0-0.2) /100WBC PT 11.7 (10.9-12.4) SEC INR 1.0 (0.9-1.1) Sodium 139 (135-145) mmol/L Potassium 4.2 (3.3-5.1) mmol/L Chloride 105 (96-108) mmol/L Carbon Dioxide 27 (22-29) mmol/L Anion Gap 11 L (12-20) BUN 12 (9-16) mg/dL Creatinine 0.79 (0.5-1.4) mg/dL Estim Creat Clear Calc 72.3 Estimated GFR > 60 Random Glucose 80 (60-115) mg/dL Calcium 9.1 (8.4-10.2) mg/dL Total Bilirubin 0.3 (0.0-1.0) mg/dL AST 26 (5-31) U/L ALT 17 (0-31) U/L Alkaline Phosphatase 73 (39-117) U/L Total Protein 7.2 (6.5-8.0) g/dL Albumin 4.2 (3.5-5.0) g/dL Independent Interpretation I performed an independent interpretation of an: EKG Interpretation: Rate: 56 Rhythm: SB [place]on: normal Normal P waves. Normal KAM. Normal QRS complex. ST T wave : no KAYLYN qTC: normal prior studies: no acute ischemia The study has been interpreted contemporaneously by me. . External Record Review External record reviewed: Outpatient record, Prior outpatient labs and Prior outpatient radiology Discharge Plan Discharge Clinical Impression: Dysphagia Patient Disposition: Home, Self-Care Instructions: Dysphagia (ED) Additional Instructions: follow up tomorrow arrive 1230pm for the OR main entrance of the hospital. nothing to eat or drink after 1230 tonight you were offered IVF in the ED but declined stay hydrated up until 1230am tonight Prescriptions: No Action hnpjcxeukd-oeliivdeuujvf-nelf [Fioricet] 50-300-40 mg capsule 1 cap PO Q4-6H PRN (Reason: headache) Qty: 10 0RF cholecalciferol (vitamin D3) 1,250 mcg (50,000 unit) capsule 1,250 mcg PO Q2W Rx Instructions: PT TAKES ON Wednesdays OR THURSDAYS naratriptan 2.5 mg tablet See Rx Instructions PO .COMPLEX PRN (Reason: migraine headache) 30 Days Qty: 12 6RF Rx Instructions: take 1/2 - 1 tab at onset of headache; if no relief may repeat 1 tab after at least 4 hrs; max = 2 tabs/24 hrs orally PRN; (DME) Oxygen Home Use Kit See Rx Instructions .Route Qty: 3 0RF Rx Instructions: Start home O2 at 15-25 L/min via non-rebreather facemask x's 15-20 minutes at onset of cluster headache attack. Patient will require both M tanks and E tanks. magnesium oxide 400 mg (241.3 mg magnesium) tablet 400 mg PO BEDTIME 30 Days Qty: 30 6RF Rx Instructions: may hold for loose stools Emgality Syringe 300 mg/3 mL (100 mg/mL x 3) syringe 300 mg subcut QMONTH 30 Days Qty: 3 3RF Rx Instructions: administer as three 100 mg injections at separate sites cabotegravir [Apretude] 600 mg/3 mL (200 mg/mL) suspension,extended release 600 mg IM [id number] sucralfate 100 mg/mL suspension 20 ml PO DAILY PRN (Reason: ULCERS) Linzess 290 mcg capsule 290 mcg PO QAM 30 Days Qty: 30 0RF Creon 3,000-9,500- 15,000 unit capsule,delayed release(DR/EC) 2 cap PO BID 30 Days Qty: 120 6RF Rx Instructions: do not exceed 10,000 unit/kg lipase per 24 hrs famotidine [Pepcid] 40 mg tablet 40 mg PO BEDTIME Qty: 30 6RF Print Language: Belarusian
--- NOTE | 2025-01-14 15:29 | ECG_ITS ---
Test Reason : pre procedure Blood Pressure : */* mmHG Vent. Rate : 56 BPM Atrial Rate : 56 BPM P-R Int : 120 ms QRS Dur : 80 ms QT Int : 412 ms P-R-T Axes : 8 14 11 degrees QTcB Int : 397 ms Sinus bradycardia Otherwise normal ECG When compared with ECG of 13-Apr-2023 19:55, Previous ECG has undetermined rhythm, needs review Referred By: Tran Lucio Electronically Signed By: Fred Castanon
[2025-01-14 15:54] LABS: MANUAL DIFF FLAG NO
[2025-01-14 15:55] LABS: Hematocrit 39.1 % (37.0-47.0); Hemoglobin 13.3 g/dl (12.0-16.0); Imm Gran Abs Auto 0.02 X10*3/uL (0.00-0.03); Imm Gran Pct Auto 0.2 % (0.0-0.4); Lymphocytes Absolute Auto 3.1 X10*3/uL (1.2-4.9); Mean Corpuscular HGB Conc 34.0 g/dl (31.0-35.0); Mean Corpuscular Hemoglobin 29.6 pg (27.0-33.0); Mean Corpuscular Volume 86.9 fL (80.0-98.0); NRBC Abs Auto 0.000 X10*3/uL (0.0-0.012); NRBC Pct Auto 0.0 /100WBC (0.0-0.2); Platelet Count 312 X10*3/uL (160-400); Red Blood Count 4.50 X10*6/uL (4.20-5.50); White Blood Count 9.0 X10*3/uL (4.8-10.8)
[2025-01-14 16:00] LABS: INTERNATIONAL NORM RATIO 1.0 (0.9-1.1); Prothrombin Time 11.7 SEC (10.9-12.4)
[2025-01-14 16:14] LABS: Alanine Aminotransferase 17 U/L (0-31); Albumin Level 4.2 g/dL (3.5-5.0); Alkaline Phosphatase 73 U/L (39-117); Anion Gap 11 (12-20); Aspartate Amino Transferase 26 U/L (5-31); Blood Urea Nitrogen 12 mg/dL (9-16); Calcium 9.1 mg/dL (8.4-10.2); Carbon Dioxide 27 mmol/L (22-29); Chloride 105 mmol/L (96-108); Creatinine Clr Calc Pharmacy 72.3; Estimated Glomerular Filt Rate > 60; Potassium 4.2 mmol/L (3.3-5.1); Sodium 139 mmol/L (135-145); Total Protein 7.2 g/dL (6.5-8.0)
[2025-01-14 18:48] VITALS: BP 117/76; PULSE 50; RESP 16; TEMP 36.5; O2SAT 100
--- OUTSIDE RECORDS SUMMARY | 2025-01-14 18:49 | XMS_ITS | Encounter Summary ---
Author Organization [employer] Address [address] [place] [address] Care Team Providers Care Solar Installation Foreman Name Role Phone Emilie Davis MD Primary Care Provider +1- [phone] Morales Echavarria Unavailable Unavailable August Unavailable Fred Castanon Unavailable Encounter Details Date Type Department Care Team (Late st Contact Info) Description 03/25/2023 Orders Only [facility] [address] [place] [address] Emilie Davis MD [address] [place] [address] Social History Tobacco Use Types Packs/Day Years [...] Description 01/22/2025 9:00 AM EDT Clinical Support [facility] [address] [place] [phone] Medina Lewis, RONALD [address] [place] [phone] 03/03/2025 9:30 AM EDT Office Visit [facility] [address] [place] [address] Emilie Davis MD [address] [place] [address] documented as of this encounter Visit Diagnoses Not on filedocumented in this encounter Additional Health Concerns Assessment Noted Time PHQ-9 Depression Total Score: 10 023 9:08 AM EDT documented as of this encounter Care Teams Solar Installation Foreman Relationship Specialty Start Date End Date Emilie Davis MD [address] [place] [address] PCP - General Family Medicine 05/13/18 Morales Echavarria FNP [address] [place] [address] Nurse Practitioner Family Medicine 04/16/23August [address] [place] [address] 3rd [place] [address] Gastroenterology 05/26/24 Fred Castanon [address] 3rd [place] [address] 07/21/24 documented as of this encounter
--- OUTSIDE RECORDS SUMMARY | 2025-01-14 18:49 | XMS_ITS | Encounter Summary ---
Author Organization [employer] Address [address] [place] [address] Care Team Providers Care Mail Messenger Name Role Phone Emilie Davis MD Primary Care Provider +1- [phone] Morales Echavarria COMPOSITION TEACHER Unavailable Unavailable August Unavailable Fred Castanon Unavailable Reason for Visit * Reason Onset Date Comments Appointment Request 11/26/2024 Encounter Details Date Type Department Care Team (Late st Contact Info) Description 11/26/2024 Telephone [facility] [address] [place] [address] Emilie Davis MD [address] [place] [address] Appointment Request Social History Tobacco Use Types [...] 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 Not on file Not on file documented as of this encounter Miscellaneous Notes * Telephone Encounter - Ernie Curry - 11/26/2024 9:25 AM EDT Tc from pt requesting to reschedule todays apt 11/26 Contact pt at [phone] (lithuanian) documented in this encounter Plan of Treatment Upcoming Encounters Date Type Department Care Team (Late st Contact Info) Description 01/22/2025 9:00 AM EDT Clinical Support [facility] [address] [place] [address] Medina Lewis RN [address] [place] [address] 03/03/2025 9:30 AM EDT Office Visit [facility] [address] [place] [address] Emilie Davis MD [address] [place] [address] documented as of this encounter Visit Diagnoses Not on filedocumented in this encounter Additional Health Concerns Assessment Noted Time PHQ-9 Depression Total Score: 3 04/30/20 23 9:17 AM EST documented as of this encounter Care Teams Mail Messenger Relationship Specialty Start Date End Date Emilie Davis MD [address] [place] [phone] PCP - General Family Medicine 05/13/18 Morales Echavarria FNP [address] [place] [address] Nurse Practitioner Family Medicine 04/16/23 Aida Orozco [address] [place] [address] Gastroenterology 05/26/24 Fred Castanon [address] [place] [address] 07/21/24 documented as of this encounter
--- OUTSIDE RECORDS SUMMARY | 2025-01-14 18:49 | XMS_ITS | Encounter Summary ---
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) Social [...] Description 01/22/2025 9:00 AM EDT Clinical Support [facility] [address] [place] [address] Medina Lewis RN [address] [place] [address] 03/03/2025 9:30 AM EDT Office Visit [facility] [address] [place] [address] Emilie Davis MD [address] [place] [address] documented as of this encounter Visit Diagnoses Diagnosis Gender 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- Primary documented in this encounter Additional Health Concerns Assessment Noted Time PHQ-9 Depression Total Score: 3 04/30/20 9:17 AM EST documented as of this encounter Care Teams Cloth Piecer Relationship Specialty Start Date End Date Emilie Davis MD [address] [place] [address] PCP - General Family Medicine 05/13/18 Morales Echavarria FNP [address] [place] [address] Nurse Practitioner Family Medicine 04/16/23 Pam August [address] [place] [address] [address] [place] [address] Gastroenterology 05/26/24 Fred Castanon [address] 3rd Floor BRITTANI Ramirez [address] 07/21/24 documented as of this encounter
--- OUTSIDE RECORDS SUMMARY | 2025-01-14 18:49 | XMS_ITS | Encounter Summary ---
Author Organization [employer] Address [address] [place] [address] Care Team Providers Care Assistant Finance Manager Name Role Phone Emilie Davis MD Primary Care Provider +1- [phone] Morales Echavarria PEST MANAGEMENT SUPERVISOR Unavailable Unavailable August Unavailable Fred Castanon Unavailable Reason for Visit * Reason Onset Date Comments Referral 07/20/2024 Encounter Details Date Type Department Care Team (Late st Contact Info) Description 07/20/2024 Telephone [facility] [address] [place] [address] Emilie Davis MD [address] [place] [address] Referral Social History Tobacco Use Types Packs/Day [...] 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 Contact pt at [phone] documented in this encounter Plan of Treatment Upcoming Encounters Date Type Department Care Team (Late st Contact Info) Description 01/22/2025 9:00 AM EDT Clinical Support [facility] [address] [place] [address] Medina Lewis RN [address] [place] [address] 03/03/2025 9:30 AM EDT Office Visit [facility] [address] [place] [address] Emilie Davis MD [address] [place] [address] documented as of this encounter Visit Diagnoses Not on filedocumented in this encounter Additional Health Concerns Assessment Noted Time PHQ-9 Depression Total Score: 3 04/30/20 23 9:17 AM EST documented as of this encounter Care Teams Assistant Finance Manager Relationship Specialty Start Date End Date Emilie Davis MD [address] [place] [address] PCP - General Family Medicine 05/13/18 Morales Echavarria FNP [address] [place] [address] Nurse Practitioner Family Medicine 04/16/23August [address] [place] [address] Gastroenterology 05/26/24 Fred Castanon [address] [place] [address] 07/21/24 documented as of this encounter
--- OUTSIDE RECORDS SUMMARY | 2025-01-14 18:49 | XMS_ITS | Encounter Summary ---
Author Organization [employer] Address [address] [facility] [address] [place] [address] Care Team Providers Care Local City Driver Name Role Phone Emilie Davis MD Primary Care Provider +1- [phone] Morales Echavarria PLASTIC BOAT BUFFER Unavailable Unavailable August Unavailable Fred Castanon Unavailable Reason for Visit * Reason Onset Date Comments Hospital Follow-up 01/04/2025 No Show 01/04/2025 Pt no show for h df Encounter Details Date Type Department Care Team (Late st Contact Info) Description 01/04/2025 Telephone [facility] [address] [place], [place] [phone] Emilie Davis MD [address] [place], [place] [phone] Hospital Follow-up; No Show (Pt no show [...] 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 Hospital: [facility] Date of admission: 12/29 Discharge date: 12/31 Diagnosed: Gastritis and inflammation of the pancreas *Send message to [facility] [place] Clinical Care Coordinators documented in this encounter Plan of Treatment Upcoming Encounters Date Type Department Care Team (Late st Contact Info) Description 01/22/2025 9:00 AM EDT Clinical Support [facility] [address] [place] [phone] Medina Lewis, RN [address] [place] [address] 03/03/2025 9:30 AM EDT Office Visit [facility] [address] [place] [address] Emilie Davis MD [address] [place] [address] documented as of this encounter Visit Diagnoses Not on filedocumented in this encounter Additional Health Concerns Assessment Noted Time PHQ-9 Depression Total Score: 3 04/30/20 9:17 AM EST documented as of this encounter Care Teams Local City Driver Relationship Specialty Start Date End Date Emilie Davis MD [address] [place] [address] PCP - General Family Medicine 05/13/18 Morales Echavarria FNP [address] [place] [address] Nurse Practitioner Family Medicine 04/16/[address] [place] [address] Gastroenterology 05/26/24 Fred Castanon [address] [place] [address] 07/21/24 documented as of this encounter
--- OUTSIDE RECORDS SUMMARY | 2025-01-14 18:49 | XMS_ITS | Encounter Summary ---
Author Organization [facility] Address [address] [place] [phone] Phone Care Team Providers Care Food And Drug Inspector Name Role Phone Emilie Davis MD Primary Care Provi baldomero Encounter Details Date Type Department Care Team (Late st Contact Info) Description 10/28/2018 Procedure Pass OR Admitting Dept - Virtual Department [address] [place] [address] Social History Tobacco Use Types Packs/Day Years [...] on filedocumented in this encounter Care Teams Food And Drug Inspector Relationship Specialty Start Date End Date Emilie Davis MD [address] [place] [address] PCP - General Family Medicine 06/03/18 documented as of this encounter Additional Source Comments The information contained in this document represents components of the legal health record. It is not the complete legal health record.[facility]
--- OUTSIDE RECORDS SUMMARY | 2025-01-14 18:50 | XMS_ITS | Encounter Summary ---
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 file Not on file documented as of this encounter Plan of Treatment Upcoming Encounters Date Type Department Care Team (Late st Contact Info) Description 01/22/2025 9:00 AM EDT Clinical Support [facility] [address] [place] [phone] Medina Lewis, RN [address] [place] [phone] 03/03/2025 9:30 AM EDT Office Visit [facility] [address] [place] [phone] Emilie Davis MD [address] [place] [phone] documented as of this encounter Procedures Procedure Name Priority Date/Time Associated Diagnosis Comments CBC WITH AUTO DIFFERENTIAL Routine 01/14/2025 3:40 PM EDT Generalized abdominal pain PROTHROMBIN TIME-INR Routine 01/14/2025 3:40 PM EDT Generalized abdominal pain COMPREHENSIVE METABOLIC PANEL Routine 01/14/2025 3:40 PM EDT Generalized abdominal pain FL ESOPHAGUS BARIUM SWALLOW Routine 01/14/2025 9:40 AM EDT documented in this encounter Results * (ABNORMAL) Comprehensive Metabolic Panel (01/14/2025 3:40 PM EDT) Sodium 139 135 - 145 mmol/L [facility] Potassium 4.2 3.3 - 5.1 mmol/L [facility] Comment:Slight Hemolysis.Int erpret result with caution. Chloride 105 96 - 108 mmol/L [facility] Carbon Dioxide 27 22 - 29 mmol/L [facility] Anion Gap 11(L) 12 - 20 [facility] Urea Nitrogen (BUN) 12 9 - 16 mg/dL [facility] Creatinine, Serum 0.79 0.5 - 1.4 mg/dL [facility] Creatinine Clr Calc Pharmacy 72.3 [facility] Comment:Provided height and weight: 165.1 cm,57.9 kg.eGFR (calculated from the MDRD study equation) and eCrCl(calculated from the Cockcroft-Gault equation) are based ondifferent parameters and may not yield comparable results.If eCrCl result is absurd, please check patient'sheight/weight. Estimated Glomerular Filt Rate >60 [facility] Comment:Chronic Kidney Disea se: Estimated GFR < 60 mL/min/1.39n8Rmmpbq Kidney Disease: Estimated GFR < 15 mL/min/1.73m2 Glucose 80 60 - 115 mg/dL [facility] Calcium 9.1 8.4 - 10.2 mg/dL [facility] Bilirubin, Total 0.3 0.0 - 1.0 mg/dL [facility] Aspartate Amino Transferase 26 5 - 31 U/L [facility] Comment:Slight Hemolysis.Int erpret result with caution. Alanine Aminotransferase 17 0 - 31 U/L [facility] Total Protein 7.2 6.5 - 8.0 g/dL [facility] Albumin Level 4.2 3.5 - 5.0 g/dL [facility] Alkaline Phosphatase 73 39 - 117 U/L [facility] 01/14/2025 3:40 PM EDT 01/14/2025 3:52 PM EDT us Generic External Data Provider LAB BLOOD ORDERAB LES Final Result Performing Organization Address [facility]/ZIP Co de Phone Number [facility] [address] [place] [phone] * Prothrombin Time-INR (01/14/2025 3:40 PM EDT) [facility] Prothrombin Time 11.7 10.9 - 12.4 SEC [facility] INTERNATIONAL NORM RATIO 1.0 0.9 - 1.1 [facility] Comment:INTERNATIONAL NORMAL IZED RATIO (INR) REFERENCE RANGES Reference RangeFor patients not on anticoagulant therapy: 0.9 - 1.1INR ranges for oral anticoagulanttherapy:For prevention and treatment of venous thrombosis and pulmonary embolism: 2.0 - 3.0For acute myocardial infarction with aspirin therapy: 2.0 - 3.0For acute myocardial infarction without aspirin therapy: 3.0 - 4.0For patients with mechanical prosthetic heart valves: 2.5 - 3.5 01/14/2025 3:40 PM EDT 01/14/2025 3:52 PM EDT Generic External Data Provider LAB BLOOD ORDERAB LES Final Result Performing Organization Address [facility] Co de Phone Number [facility] [address] [place] [phone] * (ABNORMAL) CBC auto differential (01/14/2025 3:40 PM EDT) [facility] White Blood Count 9.0 4.8 - 10.8 X10*3/uL [facility] Red Blood Count 4.50 4.20 - 5.50 X10*6/uL [facility] Hemoglobin 13.3 12.0 - 16.0 g/dl [facility] Hematocrit 39.1 37.0 - 47.0 % [facility] Mean Corpuscular Volume 86.9 80.0 - 98.0 fL [facility] Mean Corpuscular Hemoglobin 29.6 27.0 - 33.0 pg [facility] Mean Corpuscular HGB Conc 34.0 31.0 - 35.0 g/dl [facility] Red Cell Distribution Width 13.8 11.0 - 16.0 % [facility] Platelet Count 312 160 - 400 X10*3/uL [facility] Mean Platelet Volume 8.9(L) 9.4 - 12.3 fL [facility] Neutrophils Percent Auto 57.2 45 - 73 % [facility] Imm Gran Pct Auto 0.2 0.0 - 0.4 % [facility] Lymphocytes Percent Auto 34.6 20 - 40 % [facility] Monocytes Percent Auto 6.5 2 - 11 % [facility] Eosinophils Percent Auto 1.1 0 - 4 % [facility] Basophils Percent Auto 0.4 0 - 2 % [facility] NRBC Pct Auto 0.0 0.0 - 0.2 /100WBC [facility] Neutrophils Absolute Auto 5.1 2.0 - 8.3 x10*3/uL [facility] Imm Gran Abs Auto 0.02 0.00 - 0.03 X10*3/uL [facility] Lymphocytes Absolute Auto 3.1 1.2 - 4.9 X10*3/uL [facility] Monocytes Absolute Auto 0.6 0.1 - 1.2 X10*3/uL [facility] Eosinophils Absolute Auto 0.1 0.0 - 0.4 X10*3/uL [facility] Basophils Absolute Auto 0.0 0.0 - 0.2 X10*3/uL [facility] NRBC Abs Auto 0.000 0.0 - 0.012 X10*3/uL [facility] 01/14/2025 3:40 PM EDT 01/14/2025 3:52 PM EDT us Generic External Data Provider LAB BLOOD ORDERAB LES Final Result [facility] [address] [place] [phone] * FL Esophagus Barium Swallow (01/14/2025 9:40 AM EDT) Anatomical Region Laterality Modality Head, Neck Radiographic Aurora ging 01/14/2025 9:40 AM EDT Narrative 01/14/2025 11:23 AM EDT [address] [address] Fluoroscopy Report Signed Patient: Harriet Valdez MR#: [id number] : 1970 Acct:[id number] Age/Sex: 54 / F ADM Date: 01/14/25 Loc: HO.XRAY Attending Dr: Aida LEMOS-C Ordering Physician: Aida Orozco Date of Service: 01/14/25 Procedure(s): FL barium swallow Accession Number(s): [id number] cc: Emilie Davis MD; Aida Orozco Reason for Exam: R11.10 - Vomiting, unspecified EXAMINATION: XR BARIUM SWALLOW CLINICAL INFORMATION: Vomiting difficulty swallowing. COMPARISON: Gastric emptying study 10/20/2024. CT abdomen 12/29/2024 TECHNIQUE: Barium swallow was performed in upright view following oral administration of thick barium and barium coated saltine crackers. FINDINGS: Following oral administration of thick barium in upright view and different positions there is normal propagation bolus from the oral cavity through the pharynx into the esophagus. There is a high-grade stenosis at the distal esophagus/GE junction resulting in moderate retention of solid barium and food in the mid esophagus. There is clears much better following oral administration of water. FLUOROSCOPY TIME: 2.06 minutes. 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 Results were called to referring physician via tiger text at 11:17 AM on 01/14/2025 Electronically signed by: Jimmy Pedroza MD 01/14/2025 11:20 AM EDT Dictated By: Jimmy Pedroza MD Signed By: <Electronically signed by Jimmy Pedroza MD in OV> 01/14/25 1120 DD/ 9 TD/TT: 01/14/25 0955 Motor Vehicle Field Representative: MADINA Procedure Note Donotuseinterpreter, Image - 01/14/[address] [address] Fluoroscopy Report Signed Patient: Harriet ValdezMR#: [id number] : 1970Acct:[id number] Age/Sex: 54 / FADM Date: 01/14/25 Loc: HO.XRAY Attending Dr: Aida LEMOS-C Ordering Physician: Aida Orozoc Date of Service: 01/14/25 Procedure(s): FL barium swallow Accession Number(s): [id number] cc: Emilie Davis MD; Aida Orozco Reason for Exam: R11.10 - Vomiting, unspecified EXAMINATION: XR BARIUM SWALLOW CLINICAL INFORMATION: Vomiting difficulty swallowing. COMPARISON: Gastric emptying study 10/20/2024. CT abdomen 12/29/2024 TECHNIQUE: Barium swallow was performed in upright view following oral administration of thick barium and barium coated saltine crackers. FINDINGS: Following oral administration of thick barium in upright view and different positions there is normal propagation bolus from the oral cavity through the pharynx into the esophagus. There is a high-grade stenosis at the distal esophagus/GE junction resulting in moderate retention of solid barium and food in the mid esophagus. There is clears much better following oral administration of water. FLUOROSCOPY TIME: 2.06 minutes. 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 Results were called to referring physician via tiger text at 11:17 AM on 01/14/2025 Electronically signed by: Jimmy Pedroza MD 01/14/2025 11:20 AM EDT Dictated By: Jimmy Pedroza MD Signed By: <Electronically signed by Jimmy Pedroza MD in OV> 01/14/25 1120 DD/ 0940 TD/TT: 01/14/25 0955 Motor Vehicle Field Representative: MADINA [facility] External Provider IMG FLU OROSCOPY PROCEDURES Final Result documented in this encounter Visit Diagnoses Diagnosis Generalized abdominal pain- Primary Abdominal pain, generalized documented in this encounter Additional Health Concerns Assessment Noted Time PHQ-9 Depression Total Score: 3 04/30/20 23 9:17 AM EST documented as of this encounter Care Teams Loading And Unloading Supervisor Relationship Specialty Start Date End Date Emilie Davis MD [address] [place] [phone] PCP - General Family Medicine 05/13/18 Morales Echavarria FNP [address] [place] [phone] Nurse Practitioner Family Medicine 04/16/23 Aida Orozco [address] [place] [address] [address] [place] [address] Gastroenterology 05/26/24 Fred Castanon [address] [place] [phone] 07/21/24 documented as of this encounter
--- OUTSIDE RECORDS SUMMARY | 2025-01-14 18:50 | XMS_ITS | Encounter Summary ---
Author Organization [employer] Address [address] [facility] 7t [place] [address] Care Team Providers Care Insurance Sales Agent Name Role Phone Emilie Davis MD Primary Care Provider [phone]- [phone] Morales Echavarria Unavailable Unavailable August Unavailable Fred Castanon Unavailable Reason for Visit * Reason Comments Med Refill Encounter Details Date Type Department Care Team (Late st Contact Info) Description 01/01/2023 Refill [facility] [address] [place] [address] Emilie Davis MD [address] [place] [address] Social History Tobacco Use Types Packs/Day Years [...] 8:54 AM EDT T/C to patient via marker hand regarding x-ray result. No answer, message left [...] Description 01/22/2025 9:00 AM EDT Clinical Support [facility] [address] [place] [phone] Medina Lewis, RN [address] [place] [phone] 03/03/2025 9:30 AM EDT Office Visit [facility] [address] [place] [phone] Emilie Davis MD [address] [place] [phone] documented as of this encounter Visit Diagnoses Not on filedocumented in this encounter Additional Health Concerns Assessment Noted Time PHQ-9 Depression Total Score: 19 023 9:24 AM EDT documented as of this encounter Care Teams Insurance Sales Agent Relationship Specialty Start Date End Date Emilie Davis MD [address] [place] [phone] PCP - General Family Medicine 05/13/18 Morales Echavarria FNP [address] [place] [phone] Nurse Practitioner Family Medicine 04/16/23August [address] [place] [address] [address] [place] [address] Gastroenterology 05/26/24 Fred Castanon [address] [place] [address] 07/21/24 documented as of this encounter
--- OUTSIDE RECORDS SUMMARY | 2025-01-14 18:50 | XMS_ITS | Encounter Summary ---
Author Organization [facility] Address [address] [facility] 7t [place] [address] Care Team Providers Care Frame Wirer Name Role Phone Emilie Davis MD Primary Care Provider [phone]- [phone] Morales Echavarria Unavailable Unavailable August Unavailable Fred Castanon Unavailable Encounter Details Date Type Department Care Team (Late st Contact Info) Description 05/27/[address] [facility] [address] [place] [address] [phone] Emilie Davis MD [address] [place] [address] [phone] Social History Tobacco Use Types Packs/Day Years [...] AM EDT Clinical Support [facility] [address] [place] [address] [phone] Medina Lewis, RONALD [address] [place] [phone] 03/03/2025 9:30 AM EDT Office Visit [facility] [address] [place] [address] [phone] Emilie Davis MD [address] [place] [address], [place] [phone] documented as of this encounter Procedures Procedure Name Priority Date/Time Associated Diagnosis Comments COLONOSCOPY Routine 01/30/2018 HPV HIGH RISK PCR Routine 12/06/2017 12: 00 AM EDT PAP SMEAR Routine 12/06/2017 12:00 AM EDT documented in this encounter Results * Colonoscopy (01/30/2018) Colonoscopy normal Historical Provider HEALTH MAINTENANCE Final Result * HPV High Risk PCR (12/06/2017 12:00 AM EDT) [facility] Provider LAB MICROBIOLOGY - GENERA L ORDERABLES Final Result IMAGING * Pap Smear (12/06/2017 12:00 AM EDT) [facility] Provider LAB CYTOLOGY ORDERABLES F inal Result [facility] [address] [place] [phone] documented in this encounter Visit Diagnoses Not on filedocumented in this encounter Care Teams Frame Wirer Relationship Specialty Start Date End Date Emilie Davis MD [address] [place] [phone] PCP - General Family Medicine 05/13/18 Morales Echavarria FNP [address] [place] [phone] Nurse Practitioner Family Medicine 04/16/[address] [place] [phone] Gastroenterology 05/26/24 Fred Castanon [address] [place] [address] [place] [phone] 07/21/24 documented as of this encounter
--- OUTSIDE RECORDS SUMMARY | 2025-01-14 18:50 | XMS_ITS | Clinical Summary ---
Author Organization [employer] Address [address] [place] [address] Care Team Providers Care Finger Lift Operator Name Role Phone Emilie Davis MD Primary Care Provider [phone] Morales Echavarria Unavailable Unavailable August Unavailable Fred Castanon Unavailable Allergies Active Allergy Reactions Criticality Noted Date Comments Penicillins Anaphylaxis,Rash High 05/16/2017 Sumatriptan 10/28/2018 Medications * This document contains information received from the source organization and may not represent a complete record from that organization. 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 -dental home is [facility] -health care proxy filed 03/16/24 Assessment & Plan (03/17/2024 6:12 AM EST): -next physical exam due after 03/16/2025 -eye care facilitated by Alessio. -dental home is [facility] -health care proxy filed 03/16/24 Assessment & Plan (03/22/2023 9:17 AM EST): -next physical exam due after 12/07/2023. -eye care facilitated by Alessio. -dental home is outside of [facility] Assessment & Plan (12/06/2022 10:19 AM EDT): -next physical exam dueafter 12/07/2023. -eye care facilitated by Alessio. -dental home is outside of [facility] Hx of hepatitis C 11/26/2022 Overview [...] rays suggests osteoarthritis. Seen by rheumatology in [place]. Ibuprofen and NSAIDs cause gastritis. Minimal relief with acetaminophen. He was referred back to rheumatology in [place] 08/23/2020 but provider left the area. started on Tramadol. Take 3 times per week. He is not taking at this time. Assessment & Plan (03/17/2024 6:08 AM EST): X rays suggests osteoarthritis. Seen by rheumatology in [place]. Ibuprofen and NSAIDs cause gastritis. Minimal relief with acetaminophen. He was referred back to rheumatology in [place] 08/23/2020 but provider left the area. started on Tramadol. Take 3 times per week. He is not taking at this time. Assessment & Plan (03/22/2023 9:15 AM EST): X rays suggests osteoarthritis. Seen by rheumatology in [place]. Ibuprofen and NSAIDs cause gastritis. Minimal relief with acetaminophen. He was referred back to rheumatology in [place] 08/23/2020 but provider left the area. started on Tramadol. Take 3 times per week. Will need COT in the future. Assessment & Plan (12/06/2022 8:54 AM EDT): X rays suggests osteoarthritis. Seen by rheumatology in [place]. Ibuprofen and NSAIDs cause gastritis. Minimal relief with acetaminophen. He was referred back to rheumatology in [place] 08/23/2020 but provider left the area. started on Tramadol. Take 3 times per week. Will need COT in the future. Assessment & Plan (10/11/2022 9:58 AM EDT): X rays suggests osteoarthritis. Seen by rheumatology in [place]. Ibuprofen and NSAIDs cause gastritis. Minimal relief with acetaminophen. He was referred back to rheumatology in [place] 08/23/2020 but provider left the area. started [...] Now with palpitations. Will refer to his clinical nurse occupational medicine for bradycardia. Assessment & Plan (03/22/2023 9:16 AM EST): Sinus bradycardia and asymptomatic. Pt states he always has slow heart rate Pt repots heart rate in 40s recorded with home BP monitor with symptoms of dizziness recorded at home. Now with palpitations. Will refer to his clinical nurse occupational medicine for bradycardia. Assessment & Plan (12/06/2022 8:54 AM EDT): Sinus bradycardia and asymptomatic. Pt states he always has slow heart rate Pt repots heart rate in 40s recorded with home BP monitor with symptoms of dizziness recorded at home. Now with palpitations. Will refer to his clinical nurse occupational medicine for bradycardia. Assessment & Plan (10/11/2022 9:58 AM EDT): Sinus bradycardia and asymptomatic. Pt states he always has slow heart rate Pt repots heart rate in 40s recorded with home BP monitor with symptoms of dizziness recorded at home. Now with palpitations. Will refer to his clinical nurse occupational medicine for bradycardia. Generalized abdominal pain 06/25/2021 Overview (01/14/2025): Pt reports weight loss, loss of appetite, [...] for GI. Insurance no longer accepted at [facility]. -EGD scheduled for December 2021. -10/19/24 IMPRESSION: Normal 4-hour solid food gastric emptying study. -note from August10/21/24 reveiwed NM gastric emptying study FL barium swallow H pylori Ag Stool ordered -note from August12/04/24 reviewed, Kaushik increased -esophageal barium swallow 01/13/25 ordered by GI, Aida Orozco IMPRESSION: High- grade stenosis/narrowing distal esophagus likely junction resulting in ballooning of mid and distal esophagus with thick barium and solid food which clears following oral administration of water. Assessment & Plan (03/17/2024 6:08 AM EST): [...] for GI. Insurance no longer accepted at [facility]. -EGD scheduled for December 2021. Assessment [...] for GI. Insurance no longer accepted at [facility]. -EGD scheduled for December 2021. Assessment [...] for GI. Insurance no longer accepted at [facility]. -EGD scheduled for December 2021. Assessment [...] for GI. Insurance no longer accepted at [facility]. -EGD scheduled for December 2021. History of non-ST elevation myocardial infarctio n (NSTEMI) 06/25/2021 Overview (10/15/2024): Hx NSTE UT 09/2017. See CAD for plan. Assessment & Plan (05/20/2024 4:29 PM EST): Hx NSTE UT 09/2017 -continue oscar -Stress test without evidence of ischemia 04/08/18 -he held statin and ASA due to GI upset -trial of restarting statin 01/[address] on 05/08/24 showed Coronary artery atherosclerosis. Pt wants to get reestablished with cardiology. -referral sent 05/20/24 Assessment & Plan (03/22/2023 9:17 AM EST): Hx NSTE UT 09/2017 -continue oscar -Stress test without evidence of ischemia 04/08/18 -he held statin and ASA due to GI upset -trial of restarting statin 01/2019 Assessment & Plan (12/06/2022 8:55 AM EDT): Hx NSTE UT 09/2017 -continue oscar -Stress test without evidence of ischemia 04/08/18 -he held statin and ASA due to GI upset -trial of restarting statin 01/2019 Assessment & Plan (10/11/2022 9:57 AM EDT): Hx NSTE UT 09/2017 -continue oscar -Stress test without evidence of ischemia 04/08/18 -he held statin and ASA due to GI upset -trial of restarting statin 01/2019 Seasonal allergies 06/25/2021 Gender 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 10/03/2018 Overview (03/26/2024): Pt identifies as male and is changed his name in [place] October 2020. -He restarted testosterone 08/2020 -S/p chest reconstruction 10/2018 -Testosterone was 654 on 10/2022 Lab Results Component Value Date TESTTOTAL 1641 (A) 03/18/2024 HGB 16.2 (H) 03/18/2024 HGB 15.8 10/18/2022 HCT 47.3 (H) 03/18/2024 Goal testosterone levels 350-700ng/dl. Assessment & Plan (03/17/2024 6:12 AM EST): Pt identifies as male and is changing his name in [place] October 2020. He restarted testosterone 08/2020 S/p chest reconstruction 10/2018 Pt would like to switch small needle to subcutaneous instead. 25 gague needles sent 12/06/2022 Testosterone was 654 on 10/2022. Assessment & Plan (03/22/2023 9:16 AM EST): Pt identifies as male and is changing his name in [place] October 2020. He restarted testosterone 08/2020 S/p chest reconstruction 10/2018 Pt would like to switch small needle to subcutaneous instead. 25 gague needles sent 12/06/2022 Testosterone was 654 on 10/2022. Assessment & Plan (12/06/2022 11:18 AM EDT): Pt identifies as male and is changing his name in [place] October 2020. He restarted testosterone 08/2020 S/p chest reconstruction 10/2018 Pt would like to switch small needle to subcutaneous instead. 25 gague needles sent 12/06/2022 Testosterone was 654 on 10/2022. Assessment & Plan (10/11/2022 9:59 AM EDT): Pt identifies as male and is changing his name in [place] October 2020. He restarted testosterone 08/2020 S/p chest reconstruction 10/[address] scan, lung 10/04/2017 Overview (05/20/2024): -Ct scan in [place] ER on 12/25/2017 showed multiple indeterminate nodules, [...] 11/15/23 and NO SHOW. Pt can call [phone] to schedule mariely. number given to call 03/16/24 -CT 05/08/24 No acute intrathoracic findings. Calcified granulomas present bilaterally. No suspicious pulmonary nodule identified. Air-fluid level present within the midthoracic esophagus can be associated with gastroesophageal reflux disease and esophageal dysmotility. Coronary artery atherosclerosis. Assessment & Plan (05/20/2024 4:05 PM EST): -Ct scan in [place] ER on 12/25/2017 showed multiple indeterminate nodules, [...] 11/15/23 and NO SHOW. Pt can call [phone] to schedule mariely. number given to call 03/16/24 -CT 05/08/24 No acute intrathoracic findings. Calcified granulomas present bilaterally. No suspicious pulmonary nodule identified. Air-fluid level present within the midthoracic esophagus can be associated with gastroesophageal reflux disease and esophageal dysmotility. Coronary artery atherosclerosis. Assessment & Plan (03/17/2024 6:13 AM EST): -Ct scan in [place] ER on 12/25/2017 showed multiple indeterminate nodules, [...] 11/15/23 and NO SHOW. Pt can call [phone] to schedule mariely. number given to call 03/16/24 Assessment & Plan (03/22/2023 9:16 AM EST): -Ct scan in [place] ER on 12/25/2017 showed multiple indeterminate nodules, largest was solid and measured 2mm. -Given that the Pt has a tobacco Hx and quit in 2018 we referrred to pulmonology that was likely distrupted by the pandemic. -Will ordered repeat CT of chest to follow the nodles. Assessment & Plan (12/06/2022 10:18 AM EDT): -Ct scan in [place] ER on 12/25/2017 showed multiple indeterminate nodules, [...] & Plan (10/11/2022 11:32 AM EDT): Assessment: Deloris was engaged with active reflective listening and open-ended questions. Assessed symptoms, risks, and social supports with direct questions. Discussed current symptoms intensity and frequency. Emotions were normalized and validated. Deloris identified dancing as coping mechanisms and protective factors. Provided psychoeducation around depression coping skills. Discussed OP therapy and Medication Management. Provided education around integrated medicine and the options of follow up BE's as needed. Provided contact information should questions or concerns arise. Plan: Deloris will continue to engage in effective coping mechanisms that has work for they, also will try to implement depressive coping skills. They will be referred for OP services and referral to [facility] Psychopharmacology clinic. Provided Crisis contact number [...] to address current needs Yes Strengths include toyinarielleaparna is in action stage of change and the motivation will serve as treatment engagement. PLAN: 1. Follow up with [facility]: Not recommended for follow-up 2. Patient goal is to learn coping mechanisms to manage sxs. 3. Behavioral Recommendations a. Ind. Therapy and Medication Management b. Continue using coping skills c. [facility] support as needed. Mild major depression 06/25/20212023 Encounters Date Type Department Care Team Description 01/14/2025 Orders Only [facility] External Provider, [facility] Generalized abdominal pain (Primary Dx) 01/08/2025 Orders Only GENERIC EXTERNAL DATA DEPARTMENT Provider, Generic External Data 01/07/[address] [address] Emilie Davis MD Call Back Request; Injectable PrEP Communication 01/04/2025 Patient Outreach [address] [address] Emilie Davis MD Transition Of Care (Tcm) (HDF unscheduled) 01/04/[address] [address] Emilie Davis MD Nurse Triage 01/04/[address] [address] Emilie Davis MD Hospital Follow-up; No Show (Pt no show for hdf ) 12/29/2024 Orders Only GENERIC EXTERNAL DATA DEPARTMENT Provider, Generic External Data 11/26/2024 9:30 AM EDT Clinical Support [address] [address] Medina Lewis, RN On pre-exposure prophylaxis for HIV (Primary Dx) 11/26/2024 Orders Only [address] [address] Emilie Davis MD 11/26/2024 Travel 11/26/[address] [address] Emilie Davis MD Appointment Request 11/25/[address] [address] Emilie aDvis MD February11/16/[address] [address] Medina Lewis, RN 10/20/2024 Orders Only [facility] External Provider, [facility] Generalized abdominal pain (Primary Dx) from Last [...] Industry Job Start Date Job End Date [employer] Not on file Not on file [...] Description 01/22/2025 9:00 AM EDT Clinical Support [facility] [address] [place] [phone] Medina Lewis, RON[address] [place] [address] 03/03/2025 9:30 AM EDT Office Visit [facility] [address] [place] [phone] Emilie Davis MD [address] [place] [phone] Health Maintenance Due Date Last Done Comments CT Colonography 1970 FIT DNA/Cologuard 1970 FIT 1970 FOBT 1970 Sigmoidoscopy 1970 Disability Screening 1970 Pneumococcal Vaccine: 50+ Years (2 of 2 - PCV) 09/17/2018 09/17/2017 Colonoscopy 01/30/2023 01/30/2018 Colorectal Cancer Screening 01/30/2023 Zoster Vaccines (1 of 2) 02/01/2023 COVID-19 Vaccine ( - season) 2025 06/05/2021, 10/11/2020, 09/14/2020 Influenza Vaccine (#1) 2025 06/18/2019, 2017 SDOH Screening 03/16/2025 03/16/2024 Alcohol/Substance Use Screening 05/20/2025 05/20/2024 Depression Screening 05/20/2025 05/20/2024, 04/30/20 Tobacco Screening 10/02/2025 10/02/2024 HPV/Cotest 03/22/2028 03/22/2023, [...] Procedure Name Priority Date/Time Associated Diagnosis Comments COMPREHENSIVE METABOLIC PANEL Routine 01/14/2025 3:40 PM EDT Generalized abdominal pain PROTHROMBIN TIME-INR Routine 01/14/2025 3:40 PM EDT Generalized abdominal pain CBC WITH AUTO DIFFERENTIAL Routine 01/14/2025 3:40 PM EDT Generalized abdominal pain FL ESOPHAGUS BARIUM SWALLOW Routine 01/14/2025 9:40 AM EDT XR ABDOMEN 2V+ Routine 01/08/2025 10:50 AM [...] Relevant to Health Maintenance Results * (ABNORMAL) CBC auto differential (01/14/2025 3:40 PM EDT) Only the most recent of2 resultswithin the time period is included. White Blood Count 9.0 4.8 - 10.8 X10*3/uL [facility] Red Blood Count 4.50 4.20 - 5.50 X10*6/uL [facility] Hemoglobin 13.3 12.0 - 16.0 g/dl [facility] Hematocrit 39.1 37.0 - 47.0 % [facility] Mean Corpuscular Volume 86.9 80.0 - 98.0 fL [facility] Mean Corpuscular Hemoglobin 29.6 27.0 - 33.0 pg [facility] Mean Corpuscular HGB Conc 34.0 31.0 - 35.0 g/dl [facility] Red Cell Distribution Width 13.8 11.0 - 16.0 % [facility] Platelet Count 312 160 - 400 X10*3/uL [facility] Mean Platelet Volume 8.9(L) 9.4 - 12.3 fL [facility] Neutrophils Percent Auto 57.2 45 - 73 % [facility] Imm Gran Pct Auto 0.2 0.0 - 0.4 % [facility] Lymphocytes Percent Auto 34.6 20 - 40 % [facility] Monocytes Percent Auto 6.5 2 - 11 % [facility] Eosinophils Percent Auto 1.1 0 - 4 % [facility] Basophils Percent Auto 0.4 0 - 2 % [facility] NRBC Pct Auto 0.0 0.0 - 0.2 /100WBC [facility] Neutrophils Absolute Auto 5.1 2.0 - 8.3 x10*3/uL [facility] Imm Gran Abs Auto 0.02 0.00 - 0.03 X10*3/uL [facility] Lymphocytes Absolute Auto 3.1 1.2 - 4.9 X10*3/uL [facility] Monocytes Absolute Auto 0.6 0.1 - 1.2 X10*3/uL [facility] Eosinophils Absolute Auto 0.1 0.0 - 0.4 X10*3/uL [facility] Basophils Absolute Auto 0.0 0.0 - 0.2 X10*3/uL [facility] NRBC Abs Auto 0.000 0.0 - 0.012 X10*3/uL [facility] 01/14/2025 3:40 PM EDT 01/14/2025 3:52 PM EDT us Generic External Data Provider LAB BLOOD ORDERAB LES Final Result [facility] [address], [place] [phone] * Prothrombin Time-INR (01/14/2025 3:40 PM EDT) Prothrombin Time 11.7 10.9 - 12.4 SEC [facility] INTERNATIONAL NORM RATIO 1.0 0.9 - 1.1 [facility] Comment:INTERNATIONAL NORMAL IZED RATIO (INR) [...] Provider LAB BLOOD ORDERAB LES Final Result [facility] [address] [place] [phone] * (ABNORMAL) Comprehensive Metabolic Panel (01/14/2025 3:40 PM EDT) Sodium 139 135 - 145 mmol/L [facility] Potassium 4.2 3.3 - 5.1 mmol/L [facility] Comment:Slight Hemolysis.Int erpret result with caution. Chloride 105 96 - 108 mmol/L [facility] Carbon Dioxide 27 22 - 29 mmol/L [facility] Anion Gap 11(L) 12 - 20 [facility] Urea Nitrogen (BUN) 12 9 - 16 mg/dL [facility] Creatinine, Serum 0.79 0.5 - 1.4 mg/dL [facility] Creatinine Clr Calc Pharmacy 72.3 [facility] Comment:Provided height and weight: 165.1 cm,57.9 kg.eGFR (calculated from the MDRD study equation) and eCrCl(calculated from the Cockcroft-Gault equation) are based ondifferent parameters and may not yield comparable results.If eCrCl result is absurd, please check patient'sheight/weight. Estimated Glomerular Filt Rate >60 [facility] Comment:Chronic Kidney Disea se: Estimated GFR < 60 mL/min/1.91d2Hxgyha Kidney Disease: Estimated GFR < 15 mL/min/1.73m2 Glucose 80 60 - 115 mg/dL [facility] Calcium 9.1 8.4 - 10.2 mg/dL [facility] Bilirubin, Total 0.3 0.0 - 1.0 mg/dL [facility] Aspartate Amino Transferase 26 5 - 31 U/L [facility] Comment:Slight Hemolysis.Int erpret result with caution. Alanine Aminotransferase 17 0 - 31 U/L [facility] Total Protein 7.2 6.5 - 8.0 g/dL [facility] Albumin Level 4.2 3.5 - 5.0 g/dL [facility] Alkaline Phosphatase 73 39 - 117 U/L [facility] 01/14/2025 3:40 PM EDT 01/14/2025 3:52 PM EDT us Generic External Data Provider LAB BLOOD ORDERAB LES Final Result Performing Organization Address City/State/[facility] Co de Phone Number [facility] [address] [place] [address] [phone] * FL Esophagus Barium Swallow (01/14/2025 9:40 AM EDT) Anatomical Region Laterality Modality Head, Neck Radiographic Aurora ging 01/14/2025 9:40 AM EDT Narrative 01/14/2025 11:23 AM EDT [place] [address] Fluoroscopy Report Signed Patient: Harriet Valdez MR#: [id number] : 1970 Acct:[id number] Age/Sex: 54 / F ADM Date: 01/14/25 Loc: HO.SHANNONAY Attending Dr: Aida ASH Ordering Physician: Aida Orozco Date of Service: 01/14/25 Procedure(s): FL barium swallow Accession Number(s): [id number] cc: Emilie Davis MD; Aida Orozco Reason [...] Jimmy Pedroza MD 01/14/2025 11:20 AM EDT RP Dictated By: Jimmy Pedroza MD Signed By: <Electronically signed by Jimmy Pedroza MD in [place]> 01/14/25 1120 DD/ 0940 TD/TT: 01/14/25 0955 Tank Insulator Rubber: [facility] Procedure Note Donotuseinterpreter, Image - 01/14/2025 [place] [address] Fluoroscopy Report Signed Patient: Harriet Valdez#: [id number] : 1970Acct:[id number] Age/Sex: 54 / FADM Date: 01/14/25 Loc: HO.XRAY Attending Dr: Aida ASH Ordering Physician: Aida Orozco Date of Service: 01/14/25 Procedure(s): FL barium swallow Accession Number(s): [id number] cc: Emilie Davis MD; Aida Orozco Reason [...] Jimmy Pedroza MD 01/14/2025 11:20 AM EDT RP Dictated By: Jimmy Pedroza MD Signed By: <Electronically signed by Jimmy Pedroza MD in OV> 01/14/25 1120 DD/ 0940 TD/TT: 01/14/25 0955 Tank Insulator Rubber: [facility] External Provider IMG FLU OROSCOPY PROCEDURES Final Result * XR Abdomen 2 View minimum (01/08/2025 10:50 AM EDT) Anatomical Region Laterality Modality Abdomen Radiographic Aurora ging 01/08/2025 10:5 0 AM EDT Narrative 01/08/2025 12:26 PM EDT [address] [address] XRay Report Signed Patient: Harriet Valdez MR#: [id number] : 1970 Acct:[id number] Age/Sex: 54 / F ADM Date: 01/08/25 Loc: HO.XRAY Attending Dr: Aida ASH Ordering Physician: Aida Orozco Date of Service: 01/08/25 Procedure(s): XR abdomen min 2V Accession Number(s): [id number] cc: Emilie Davis MD; Aida Orozco EXAMINATION: [...] 01/08/25 1223 DD/ 1050 TD/TT: 01/08/25 1057 Tank Insulator [employer]ber: Procedure Note Donotuseinterpreter, Image - 01/08/2025 [place] [address] XRay Report Signed Patient: Harriet ValdezMR#: [id number] : 1970Acct:[id number] Age/Sex: 54 / FADM Date: 01/08/25 Loc: [facility] Attending Dr: Aida ASH Ordering Physician: Aida Orozco Date of Service: 01/08/25 Procedure(s): XR abdomen min 2V Accession Number(s): [id number] cc: Emilie Davis MD; Aida Orozco EXAMINATION: [...] 01/08/25 1223 DD/ 1050 TD/TT: 01/08/25 1057 Tank Insulator Rubber: [facility] External Provider IMG XR PROCEDURES Edited Result - Final * (ABNORMAL) VITAMIN D 25-OH (D2 AND D3) (01/08/2025 10:47 AM EDT) Vitamin D, 25-OH, D2 <4 ng/mL [facility] Comment:This test was develo ped and its analytical performancecharacteristics have been determined by [place]. It hasnot been cleared or approved by the U.S. Food and DrugAdministration. This assay has been validated pursuantto the CLIA regulations and is used for clinicalpurposes.THIS TEST WAS PERFORMED AT:[employer] [id number] [place] [address]WTASVXHMARCI ESTEVEZ MD,PHD Vitamin D, 25-OH, D3 28 ng/mL [facility] Comment:This test was develo ped and its analytical performancecharacteristics have been determined by [employer] [place], [place]. It hasnot been cleared or approved by the U.S. Food and DrugAdministration. This assay has been validated pursuantto the CLIA regulations and is used for clinicalpurposes. Vitamin D, 25-OH, Total 28(A) 30 - 100 ng/mL [facility] Comment:Vitamin D, 25-Hydrox y reports [...] = 30 ng/mL.For additional information, please refer tohttp://education.[employer]/faq/EHM796(This link is being provided for informational/educational purposes only.) 01/08/2025 10:4 7 AM EDT 01/08/2025 10:47 AM EDT Generic External Data Provider LAB BLOOD ORDERAB LES Final Result Performing Organization Address [facility] Co de Phone Number [facility] [address] [place] [phone] * Sed Rate by Modified Westergren (01/08/2025 10:47 AM EDT) Erythrocyte Sedimentation Rate 9 0 - 20 MM/HR [facility] Comment:Patients with polycy themia and many hemoglobin abnormalitiesmay have depressed sed rates whereas patients with anemiamay have elevated sed rates. 01/08/2025 10:4 7 AM EDT 01/08/2025 10:47 AM EDT Generic External Data Provider LAB BLOOD ORDERAB LES Final Result Performing Organization Address [facility] Co de Phone Number [facility] [address] [place] [phone] * C-reactive Protein (01/08/2025 10:47 AM EDT) C Reactive Protein <0.10 < or = 0.50 mg/dL [facility] 01/08/2025 10:4 7 AM EDT 01/08/2025 10:47 AM EDT Generic External Data Provider LAB BLOOD ORDERAB LES Final Result Performing Organization Address City/[facility]/ZIP Co de Phone Number [facility] [address] [place] [address] [phone] * Lipase (01/08/2025 10:47 AM EDT) Only the most recent of2 resultswithin the time period is included. Lipase 33 8 - 78 U/L [facility] 01/08/2025 10:4 7 AM EDT 01/08/2025 10:47 AM EDT Generic External Data Provider LAB BLOOD ORDERAB LES Final Result Performing Organization Address [facility] Co de Phone Number [facility] [address] [place] [address] [phone] * (ABNORMAL) Amylase (01/08/2025 10:47 AM EDT) Amylase 114(H) 28 - 100 U/L [facility] 01/08/2025 10:4 7 AM EDT 01/08/2025 10:47 AM EDT Generic External Data Provider LAB BLOOD ORDERAB LES Final Result Performing Organization Address [facility] Co de Phone Number [facility] [address] [place] [address] [phone] * (ABNORMAL) Drug Monitoring, Panel 1, Screen, Urine (12/29/2024 1:09 PM EDT) Opiate Screen Urine Not Detected Not Detect [facility] Comment:Opiate cut-off is 30 0 ng/mL.Positive results are unconfirmed and should not be used fornon-medical purposes. Barbiturates, Urine Not Detected Not Detect [facility] Comment:Barbiturate cut-off is 200 ng/mL.Positive results are unconfirmed and should not be used fornon-medical purposes. Phencyclidine Screen Urine Not Detected Not Detect [facility] Comment:Phencyclidine cut-of f is 25 ng/mL.Positive results are unconfirmed and should not be used fornon-medical purposes. Amphetamine Screen Urine Not Detected Not Detect [facility] Comment:Amphetamine cut-off is 1000 ng/mL.Positive results are unconfirmed and should not be used fornon-medical purposes. Benzodiazepines Screen Urine Not Detected Not Detect [facility] Comment:Benzodiazepine cut-o ff is 200 ng/mL.Positive results are unconfirmed and should not be used fornon-medical purposes. Cocaine Screen Urine Not Detected Not Detect [facility] Comment:Cocaine cut-off is 3 00 ng/mL.Positive results are unconfirmed and should not be used fornon-medical purposes. Cannabinoid Screen Urine POSITIVE(A) Not Detect [facility] Comment:Cannabinoid cut-off is 50 ng/mL.Positive results are unconfirmed and should not be used fornon-medical purposes. Methadone Screen, Urine Not Detected Not Detect ng/mL [facility] Comment:Methadone cut-off is 300 ng/mL.Positive results are unconfirmed and should not be used fornon-medical purposes. FENTANYL URINE Not Detected Not Detect [facility] Comment:Fentanyl cut-off is 1 ng/mL.Positive results are unconfirmed and should not be used fornon-medical purposes. Oxycodone Urine Screen Not Detected Not Detect ng/mL [facility] Comment:Oxycodone cut-off is 100 ng/mL.Positive results are unconfirmed and should not be used fornon-medical purposes. Buprenorphine Screen Not Detected Not Detect ng/mL [facility] Comment:Buprenorphine cut-of f is 5 ng/mL.Positive results are unconfirmed and should not be used fornon-medical purposes. 12/29/2024 1:09 PM EDT 12/29/2024 1:16 PM EDT us Generic External Data Provider LAB URINE ORDERAB LES Final Result [facility] [address] [place] [address] [phone] * Urinalysis w/reflex microscopic (12/29/2024 1:09 PM EDT) Color Urine Yellow [facility] Appearance Urine Clear [facility] PH 8.0 5.0 - 9.0 [facility] Glucose Urine UA Negative Negative mg/dL [facility] Urine Blood Negative Negative [facility] Specific [place] - Urine 1.015 1.005 - 1.025 [facility] Urine Protein Negative Neg-Trace mg/dL [facility] Urine Ketones Negative Negative mg/dL [facility] Nitrite Urine Negative Negative [facility] Leukocyte Esterase Urine Negative Negative [facility] 12/29/2024 1:09 PM EDT 12/29/2024 1:16 PM EDT Narrative [facility] - 12/29/2024 1:22 PM EDT Urine, Clean Catch us Generic External Data Provider LAB URINE ORDERAB LES Final Result Performing Organization Address City/State/[facility] Co de Phone Number [facility] [address] [place] [phone] * CT Abdomen Pelvis w/ Contrast (12/29/2024 12:55 PM EDT) Anatomical Region Laterality Modality Body, Pelvis, Abdomen Computed T omography 12/29/2024 12:5 5 PM EDT Narrative 12/29/2024 1:42 PM EDT [address] [address] [address] Scan Report Signed Patient: Harriet Valdez MR#: [id number] : 1970 Acct:[id number] Age/Sex: 54 / F ADM Date: 12/29/24 Loc: HO.ED Attending Dr: Ordering Physician: Cheryl Cobb DO Date of Service: 12/29/24 Procedure(s): CT abdomen pelvis w IV con Accession Number(s): [id number] cc: Emilie Davis MD; Cheryl Cobb DO Report Number: [id number]: Total DLP = 296.00 mGy-cm EXAMINATION: CT [...] 12/29/24 1340 DD/ 1255 TD/TT: 12/29/24 1329 [employer]: Procedure Note Donotuseinterpreter, Image - 12/29/[address] [address] [address] Scan Report Signed Patient: Harriet ValdezMR#: [id number] : 1970Acct:[id number] Age/Sex: 54 / FADM Date: 12/29/24 Loc: .ED Attending Dr: Ordering Physician: Cheryl Cobb DO Date of Service: 12/29/24 Procedure(s): CT abdomen pelvis w IV con Accession Number(s): [id number] cc: Emilie Davis MD; Cheryl Cobb DO Report Number: [id number]: Total DLP = 296.00 mGy-cm EXAMINATION: CT [...] 12/29/24 1340 DD/ 1255 TD/TT: 12/29/24 1329 [employer]: [facility] External Provider IMG CT PROCEDURES Final Result * Hepatic Function Panel (12/29/2024 10:00 AM EDT) Bilirubin, Total 0.4 0.0 - 1.0 mg/dL [facility] Bilirubin, Direct 0.1 0.0 - 0.5 mg/dL [facility] Aspartate Amino Transferase 26 5 - 31 U/L [facility] Alanine Aminotransferase 19 0 - 31 U/L [facility] Total Protein 7.6 6.5 - 8.0 g/dL [facility] Albumin Level 4.4 3.5 - 5.0 g/dL [facility] Alkaline Phosphatase 90 39 - 117 U/L [facility] 12/29/2024 10:0 0 AM EDT 12/29/2024 10:02 AM EDT us Generic External Data Provider LAB BLOOD ORDERAB LES Final Result [facility] [address] [place] [phone] [phone] * (ABNORMAL) Basic Metabolic Panel (12/29/2024 10:00 AM EDT) Sodium 142 135 - 145 mmol/L [facility] Potassium 4.0 3.3 - 5.1 mmol/L [facility] Chloride 107 96 - 108 mmol/L [facility] Carbon Dioxide 30(H) 22 - 29 mmol/L [facility] Anion Gap 9(L) 12 - 20 [facility] Urea Nitrogen (BUN) 10 9 - 16 mg/dL [facility] Creatinine, Serum 0.75 0.5 - 1.4 mg/dL [facility] Creatinine Clr Calc Pharmacy 66.2 [facility] Comment:Provided height and weight: 162.56 cm,49.5 kg.eGFR (calculated from the MDRD study equation) and eCrCl(calculated from the Cockcroft-Gault equation) are based ondifferent parameters and may not yield comparable results.If eCrCl result is absurd, please check patient'sheight/weight. Estimated Glomerular Filt Rate >60 [facility] Comment:Chronic Kidney Disea se: Estimated GFR < 60 mL/min/[id number] Kidney Disease: Estimated GFR < 15 mL/min/1.73m2 Glucose 117(H) 60 - 115 mg/dL [facility] Calcium 9.3 8.4 - 10.2 mg/dL [facility] 12/29/2024 10:0 0 AM EDT 12/29/2024 10:02 AM EDT Generic External Data Provider LAB BLOOD ORDERAB LES Final Result Performing Organization Address [facility] Co de Phone Number [facility] [address] [place] [phone] * (ABNORMAL) Confirmatory Syphilis Profile (11/26/2024 1:24 PM EDT) [facility] Rapid Plasma Reagin, Quant Non-React darren Nonreactive [facility] Treponema pallidum Antibody, Particle Agglutination Reactive( A) Nonreactive [facility] Comment:These results must b e reported by the ordering clinician orclinical facility to the [facility] required by state law.Testing performed at: [address] [address] 11/26/2024 1:24 PM EDT 11/27/2024 3:54 AM EDT Emilie Davis MD LAB BLOOD ORDERABLES Final Result Performing Organization Address [facility] Co de Phone Number [facility] [address] [place] [address] [phone] * (ABNORMAL) Syphilis Screen (11/26/2024 1:24 PM EDT) [facility] Syphilis Screen Reactive( A) Nonreactive [facility] Comment:Reactive specimens a re sent to the [facility] Labfor confirmatory tests. 11/26/2024 1:24 PM EDT 11/26/2024 4:06 PM EDT Emilie Davis MD LAB BLOOD ORDERABLES Final Result Performing Organization Address [facility] Co de Phone Number [facility] [address] [place] [phone] * Hepatitis C Viral RNA, Quantitative, Real-Time PCR (11/26/2024 1:24 PM EDT) [facility] Hepatitis C Viral Load <15 NOT DETECTED NOT DETECTED IU/mL [facility] HCV Log PCR <1.18 NOT DETECTED NOT DETECTED Log IU/mL [facility] Comment:For additional infor nura, please refer tohttp://education.[facility]/faq/QIX98o4(This link is being provided for informational/educational purposes only.)THIS TEST WAS PERFORMED AT:[facility] [place] [id number] MALDONADO MD 11/26/2024 1:24 PM EDT 11/27/2024 2:28 PM EDT Emilie Davis MD LAB BLOOD ORDERABLES Final Result Performing Organization Address [facility] Co de Phone Number [facility] [address] [place] [phone] * (ABNORMAL) Hepatitis C Antibody with Reflex to HCV, RNA, Quantitative, Real- Time PCR (11/26/2024 1:24 PM EDT) Hepatitis C Antibody Reactive( A) Nonreactive [facility] Comment:Presumptive evidence of antibodies to HCV. 11/26/2024 1:24 PM EDT 11/26/2024 4:06 PM EDT Emilie Davis MD LAB BLOOD ORDERABLES Final Result Performing Organization Address [facility] Co de Phone Number [facility] [address] [place] [phone] * Methylmalonic Acid (11/26/2024 1:24 PM EDT) Methylmalonic Acid 197 55 - 335 nmol/L [facility] Comment: Serum methylmalonic acid (MMA) [...] outcomes,such as neural tube defects and intrauterine growthrestriction.[employer] utilized Multi-Modal Decomposition(MMD) analysis to establish first and second trimester-specific MMA reference intervals in , as givenbelow:MMA, First trimester (<13 wks gestation): 58-167 nmol/LMMA, Second trimester (13-23 wks gestation):63-241 nmol/LThis test was developed and its analytical performancecharacteristics have been determined by [employer]. It has not been cleared or approved by theA. This assay has been validated pursuant to the CLIAregulations and is used for clinical purposes.THIS TEST WAS PERFORMED AT:[facility]/[id number] [place] [address]OGCPIOAMARCI ESTEVEZ MD,PHD 11/26/2024 1:24 PM EDT 11/26/2024 4:06 PM EDT us Generic External Data Provider LAB BLOOD ORDERAB LES Final Result [facility] [address] [place] [phone] * HIV-1 RNA, Quantitative, Real-Time PCR (11/26/2024 1:24 PM EDT) HIV RNA PCR Qn Copies NOT DETECTED NOT DETECTED copies/mL [facility] HIV RNA PCR Qn Log Copies NOT DETECTED NOT DETECTED [facility] Comment:Result Units: Log co pies/mLThis test was performed using Real-Time Polymerase ChainReaction.Reportable Range: 20 copies/mL to 10,000,000 copies/mL(1.30 log copies/mL to 7.00 log copies/mL).THIS TEST WAS PERFORMED AT:[facility] [address] [id number] MALDONADO MD 11/26/2024 1:24 PM EDT 11/26/2024 4:06 PM EDT Emilie Davis MD LAB BLOOD ORDERABLES Final Result Performing Organization Address [facility] Co de Phone Number [facility] [address] [place] [phone] * RPR (Monitor) with Reflex to??Titer (11/26/2024 1:24 PM EDT) RPR (Monitor) w/Refl Titer NON-REACTI VE NON-REACT DARREN [facility] Comment:THIS TEST WAS PERFOR MED AT:[facility] [place] [id number] MALDONADO MD Rapid Plasma Reagin Ab Titer TNP [facility] 11/26/2024 1:24 PM EDT 11/26/2024 4:06 PM EDT Emilie Davis MD LAB BLOOD ORDERABLES Final Result Performing Organization Address [facility] Co de Phone Number [facility] [address] [place] [phone] * POCT RAPID HIV SCREENING (11/26/2024 10:08 AM EDT) Blood 11/26/2024 10:0 8 AM EDT Narrative Medina Lewis RN - 11/26/2024 10:08 AM EDT Negative Emilie Davis MD POINT OF CARE TEST ENTER/E DIT ORDERABLES Final Result * NM Gastric Emptying Solid (10/20/2024 8:15 AM EDT) Anatomical Region Laterality Modality Body Nuclear Medicine 10/20/2024 8:15 AM EDT Narrative 10/20/2024 1:44 PM EDT [address] [address] Nuclear Medicine Report Signed Patient: Harriet Valdez MR#: [id number] : 1970 Acct:[id number] Age/Sex: 54 / F ADM Date: 10/20/24 Loc: ANJU Attending Dr: Aida ASH Ordering Physician: Aida Orozco Date of Service: 10/20/24 Procedure(s): NM gastric emptying study Accession Number(s): [id number] cc: Emilie Davis MD; Aida Orozco EXAMINATION: NE RADIONUCLIDE SOLID FOOD GASTRIC EMPTYING 4-HOUR STUDY [...] hours 16% 4 hours 8% (normal 0%-10%) NE/NE gastric emptying study IMPRESSION: Normal 4-hour solid [...] 10/20/24 1341 DD/ 0815 TD/TT: 10/20/24 1235 [employer]: [facility] Procedure Note Donotuseinterpreter, Image - 10/20/[address] [address] Nuclear Medicine Report Signed Patient: Harriet Valdez#: [id number] : 1970Acct:[id number] Age/Sex: 54 / FADM Date: 10/20/24 Loc: ANJU Attending Dr: Aida ASH Ordering Physician: Aida Orozco Date of Service: 10/20/24 Procedure(s): NM gastric emptying study Accession Number(s): [id number] cc: Emilie Davis MD; Aida Orozco EXAMINATION: [...] 10/20/24 1341 DD/ 0815 TD/TT: 10/20/24 1235 [employer]: MAD[facility] External Provider IMG NM PROCEDURES Final Result * (ABNORMAL) Lipid Panel, Standard (07/24/2024 1:36 PM EDT) Triglycerides 141 <150 mg/dL [facility] Comment:Desirable Triglyceri de: less than 150 mg/dLBorderline High Triglyceride 150-199 mg/dLHigh Triglyceride: 200-499 mg/dLVery High Triglyceride: greater than or equal to 5OO mg/dL Cholesterol 205(H) <200 mg/dL [facility] Comment:Desirable Cholestero l: less than 200 mg/dLBorderline High Cholesterol: 200-239 mg/dLHigh Cholesterol: greater than 239 mg/dL LDL Cholesterol Calculated 114(H) <100 mg/dL [facility] Comment:Desirable LDL: less than 100 mg/dLNear Optimal/Above Optimal LDL: 110- 129 mg/dLBorderline High LDL: 130-159 mg/dLHigh LDL: 160-189 mg/dLVery High LDL: greater than or equal to 190 mg/dL HDL Cholesterol 63 >40 mg/dL [facility] Comment:Desirable HDL: great er than 40 mg/dL Note: This HDL assay may give artificially low results in patients with liver disease. 07/24/2024 1:36 PM EDT 07/24/2024 4:20 PM EDT Generic External Data Provider LAB BLOOD ORDERAB LES Final Result Performing Organization Address [facility] Co de Phone Number [facility] [address] [place] [phone] * HPV mRNA E6/E7 w/Reflex to HPV Genotypes 16, 18/45 (03/22/2023 11:30 AM EST) HPV nRNA E6/E7 Not Detected Not Detected [facility] Comment:Methodology: Transcr iption-Mediated AmplificationThis assay detects E6/E7 viral messenger RNA (mRNA) from 14high-risk HPV types (16,18,31,33,35,39,45,51,52,56,58,59,66,68).Cervical sources are required for HPV testing.If a vaginal source from a patient who has had atotal hysterectomy with removal of cervix wassubmitted, please contact the testing laboratoryfor alternative testing options.For additional information, please refer tohttp://education.[facility]/faq/KGK869s4(This link if provided for information/educational purposes only.)THIS TEST WAS PERFORMED AT:[facility] [place] [phone] MALDONADO MD HPV mRNA E6/E7 TNP [facility] HPV 16 RNA [facility] HPV 18/45 RNA [facility] 03/22/2023 11:3 0 AM EST 03/25/2023 12:20 PM EST Emilie Davis MD LAB CYTOLOGY ORDERABLES Fi nal Result Performing Organization Address [facility]/ZIP Co de Phone Number [facility] [address] [place] [phone] * Pap Smear (03/22/2023 11:30 AM EST) 03/22/2023 11:3 0 AM EST 03/25/2023 12:20 PM EST Heath [facility] - 04/11/2023 11:26 AM EST ----- ------- Name: Harriet Valdez Age/Sex: 53/F : 1970 Unit#: [id number] Attend Dr: RADHA VILLAREAL MD Re03/22/23 Status: DEP REF Location: HO.HHCLNP Disch: ----- ------- SPEC : [id number] RECD: 03/25/23 STATUS: JANIE DUNLAP NUM: [id number] AMBREEN: 03/22/[address] [facility] [address]: Emilie Davis MD ENTERED: 03/25/232611 SP TYPE: Pap Smr OTHR : ORDERED: Pap Smear Interpretation Satisfactory for evaluation. Negative for intraepithelial lesion or malignancy. HPV mRNA E6/E7: NOT DETECTED This assay detects E6/E7 viral messenger RNA (mRNA) from 14 high-risk HPV types (16, 18, 31, 33, 35, 39, 45, 51, 52, 56, 58, 59, 66, 68) HPV testing performed by [employer], [place], [place]. See reference laboratory portion of the EMR for entire report. Clinical Information LMP: Unknown date Previous PAP test: Unknown date, WNL Other history: Pt on testosterone, surgical post menopause Material Received ThinPrep-Cervical ----- ------- Signed (signature on file) SERENA Alejandro (ASCP) 04/11/23 1126 ----- ------- END OF REPORT Emilie Davis MD LAB CYTOLOGY ORDERABLES Fi nal Result [facility] [address] [place] [phone] * Colonoscopy (01/30/2018) Colonoscopy normal Historical Provider HEALTH MAINTENANCE Final Result from Last 3 Months or Most Recently Relevant to Health Maintenance Insurance [facility] [employer] 3 Advance Directives Documents on File Type Date Recorded 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
--- OUTSIDE RECORDS SUMMARY | 2025-01-14 18:50 | XMS_ITS | Encounter Summary ---
Author Organization [facility] Address [address] [facility] 7[address] [place] [address] Care Team Providers Care Estimator Printing Name Role Phone Emilie Davis MD Primary Care Provider [phone] Morales Echavarria Unavailable Unavailable August Unavailable Fred Castanon Unavailable Encounter Details Date Type Department Care Team (Late st Contact Info) Description 11/28/2022 Abstract [facility] [address] [place] [phone] Emilie Davis MD [address] [place] [address] Social History Tobacco Use Types Packs/Day Years [...] Description 01/22/2025 9:00 AM EDT Clinical Support [facility] [address] [place] [address] Medina Lewis RN [address] [place] [address] 03/03/2025 9:30 AM EDT Office Visit [facility] [address] [place] [address] Emilie Davis MD [address] [place] [address] documented as of this encounter Visit Diagnoses Not on filedocumented in this encounter Additional Health Concerns Assessment Noted Time PHQ-9 Depression Total Score: 19 023 9:24 AM EDT documented as of this encounter Care Teams Estimator Printing Relationship Specialty Start Date End Date Emilie Davis MD [address] [place] [phone] PCP - General Family Medicine 05/13/18 Morales Echavarria FNP [address] [place] [phone] Nurse Practitioner Family Medicine 04/16/23August [address] [place] [address] [address] [place] [address] Gastroenterology 05/26/24 Fred Castanon [address] [place] [phone] 07/21/24 documented as of this encounter
--- OUTSIDE RECORDS SUMMARY | 2025-01-14 18:50 | XMS_ITS | Encounter Summary ---
Author Organization [employer] Address [address] [facility] 7t [place] [address] Care Team Providers Care Key Punch Operator Name Role Phone Emilie Davis MD Primary Care Provider [phone] Morales Echavarria PNEUMATIC TOOL REPAIRER Unavailable Unavailable August Unavailable Fred Castanon Unavailable Encounter Details Date Type Department Care Team (Late st Contact Info) Description 04/22/2022 Orders Only [facility] [address] [place], [place] [phone] Emilie Davis MD [address] [place], [place] [phone] HSV (herpes simplex virus) anogenital infection (Primary [...] Description 01/22/2025 9:00 AM EDT Clinical Support [address] [phone] Medina Lewis, RONALD [address] [place] [address] 03/03/2025 9:30 AM EDT Office Visit [address] [address] Emilie Davis MD [address] [place] [phone] documented as of this encounter Visit Diagnoses Diagnosis HSV (herpes simplex virus) anogenital infection- Primary Herpes simplex without mention of complication documented in this encounter Care Teams Key Punch Operator Relationship Specialty Start Date End Date Emilie Davis MD [address] [place] [phone] PCP - General Family Medicine 05/13/18 Morales Echavarria FNP [address] [place] [address] Nurse Practitioner Family Medicine 04/16/23 Pam Iada [address] [place] [address] Gastroenterology 05/26/24 Fred Castanon [address] [place] [phone] 07/21/24 documented as of this encounter
--- OUTSIDE RECORDS SUMMARY | 2025-01-14 18:50 | XMS_ITS | Clinical Summary ---
Author Organization [facility] Address [address] [address] Phone Care Team Providers Care Airplane Pilot Commercial Name Role Phone Emilie Davis MD Primary [...] ACO C3 ACO C3 ACO C3 ACO [facility] C3 ACO [employer] Advance Directives For more information, please contact: [phone] (9AM - 5PM [facility], Saturday-Saturday) * Full Code (Presumed) (Latest Code Status on File) Date Activated Date Inactivated Comments 10/28/2018 9:51 AM 10/28/2018 7:25 PM Care Teams Airplane Pilot Commercial Relationship Specialty Start Date End Date [place], Emilie Way MD [address] [place] [address] PCP - General Family Medicine 06/03/18 Additional Source Comments The information contained in this document represents components of the legal health record. It is not the complete legal health record.[facility]
--- OUTSIDE RECORDS SUMMARY | 2025-01-14 18:50 | XMS_ITS | Encounter Summary ---
Author Organization [facility] Address [address] [facility] 7t [place] [address] Care Team Providers Care Reference Test Clerk Name Role Phone Emilie Davis MD Primary Care Provider +1- [phone] Morales Echavarria OPERATIONS RESEARCH MANAGER Unavailable Unavailable August Unavailable Fred Castanon Unavailable Reason for Visit * Reason Onset Date Comments Referral 07/18/2022 Encounter Details Date Type Department Care Team (Late st Contact Info) Description 07/18/2022 Telephone [facility] MEDICINE [address] [place] [address] Emilie Davis MD [address] [place] [address] Referral Social History Tobacco Use Types Packs/Day [...] to our [facility]. Please contact pt [phone] documented in this encounter Plan of Treatment Upcoming Encounters Date Type Department Care Team (Late st Contact Info) Description 01/22/2025 9:00 AM EDT Clinical Support [address] [address] Medina Lewis, RN [address] [place] [address] 03/03/2025 9:30 AM EDT Office Visit [address] [address] Emilie Davis MD [address] [place] [address] documented as of this encounter Visit Diagnoses Not on filedocumented in this encounter Care Teams Reference Test Clerk Relationship Specialty Start Date End Date Emilie Davis MD [address] [place] [address] PCP - General Family Medicine 05/13/18 Morales Echavarria FNP [address] [place] [address] Nurse Practitioner Family Medicine 04/16/23August [address] [place] [address] Gastroenterology 05/26/24 Fred Castanon [address] [place] [address] 07/21/24 documented as of this encounter
--- OUTSIDE RECORDS SUMMARY | 2025-01-14 18:50 | XMS_ITS | Encounter Summary ---
Author Organization [facility] Address [address] [facility] 7t [place] [address] Care Team Providers Care Metalsmith Helper Name Role Phone Emilie Davis MD Primary Care Provider +1- [phone] Morales Echavarria EGG BREAKER Unavailable Unavailable August Unavailable Fred Castanon Unavailable Reason for Visit * Reason Onset Date Comments Med Refill 04/22/2024 Encounter Details Date Type Department Care Team (Late st Contact Info) Description 04/22/2024 Telephone [facility] MEDICINE [address] [place] [address] Emilie Davis MD [address] [place] [address] Med Refill Social History Tobacco Use Types [...] 200 MG/5ML suspension To be sent to: [facility] - [place], [place] - [address] [facility] documented in this encounter Plan of Treatment Upcoming Encounters Date Type Department Care Team (Late st Contact Info) Description 01/22/2025 9:00 AM EDT Clinical Support [facility] MEDICINE [address] [place] [address] Medina Lewis, RONALD [address] [place] [address] 03/03/2025 9:30 AM EDT Office Visit [facility] MEDICINE [address] [place] [address] Emilie Davis MD [address] [place] [address] documented as of this encounter Visit Diagnoses Not on filedocumented in this encounter Additional Health Concerns Assessment Noted Time PHQ-9 Depression Total Score: 3 04/30/20 9:17 AM EST documented as of this encounter Care Teams Metalsmith Helper Relationship Specialty Start Date End Date Emilie Davis MD [address] [place] [address] PCP - General Family Medicine 05/13/18 Morales Echavarria FNP [address] [place] [address] Nurse Practitioner Family Medicine 04/16/[address] [place] [address] Gastroenterology 05/26/24 Fred Castanon [address] [place] [address] 07/21/24 documented as of this encounter
--- OUTSIDE RECORDS SUMMARY | 2025-01-14 18:50 | XMS_ITS | Encounter Summary ---
Author Organization [employer] [facility] Address [address] [facility] 7[address] [place] [address] Care Team Providers Care Senior Software Quality Engineer Name Role Phone Emilie Davis MD Primary Care Provider [phone]- [phone] Morales Echavarria ACID BATH MIXER Unavailable Unavailable August Unavailable Fred Castanon Unavailable Reason for Visit * Reason Comments Med Refill Encounter Details Date Type Department Care Team (Late st Contact Info) Description 06/27/2022 Refill [facility] MEDICINE [address] [place] [address] Emilie Davis MD [address] [place] [address] [phone] Social History Tobacco Use Types Packs/Day Years [...] Description 01/22/2025 9:00 AM EDT Clinical Support [facility] MEDICINE [address] [place] [address] [phone] Medina Lewis, RONALD [address] [place] [address] 03/03/2025 9:30 AM EDT Office Visit [facility] MEDICINE [address] [place] [address] [phone] Emilie Davis MD [address] [place] [address] documented as of this encounter Visit Diagnoses Not on filedocumented in this encounter Care Teams Senior Software Quality Engineer Relationship Specialty Start Date End Date Emilie Davis MD [address] [place] [address] PCP - General Family Medicine 05/13/18 Morales Echavarria FNP [address] [place] [address] Nurse Practitioner Family Medicine 04/16/23August [address] [place] [address] Gastroenterology 05/26/24 Fred Castanon [address] [place] [address] 07/21/24 documented as of this encounter
[2025-01-14 20:06] VITALS: BP 122/78; PULSE 56; RESP 16; TEMP 36.8; O2SAT 98
[2025-01-14 20:39] VITALS: BP 122/78; PULSE 56; RESP 16; TEMP 36.8; O2SAT 98
== END 2025-01-14 20:35 | disposition home or self-care (01) ==
PROVIDERS: Registered Nurse Emergency; Emergency Provider Emergency Medicine; PCP Family Medicine
DX: R13.10 Dysphagia, unspecified (principal); R79.89 Other specified abnormal findings of blood chemistry; R11.2 Nausea with vomiting, unspecified; R00.1 Bradycardia, unspecified; Z79.899 Other long term (current) drug therapy; Z87.891 Personal history of nicotine dependence
CPT/HCPCS: 36415; 80053; 85025; 85610; 93005; 99283; 99284

== ENCOUNTER → 2025-01-14 15:29 | Outpatient (BNV) | payer OTHER, SELFPAY | PROVIDERS: Emergency Provider Emergency Medicine; PCP Family Medicine; Visit Provider Internal Medicine Cardiovascular Disease | DX: R00.1 Bradycardia, unspecified (principal) | CPT/HCPCS: 93010 ==

== ENCOUNTER 2025-01-15 13:16 | Day surgery (SDC) | payer OTHER, SELFPAY ==
--- OUTSIDE RECORDS SUMMARY | 2025-01-15 06:00 | XMS_ITS | Continuity of Care Document ---
Author Organization [facility] Address [address] [place] [address] Dr [address] [place] [address] Phone Care Team Providers Care Tractor Operator Helper Name Role Phone Josue MARISCAL, KATHY, Manish POWELL Unavailable U navailable Allergies, Adverse Reactions, Alerts Substance Reaction Status Criticality PENICILLIN Active No Information Procedures Procedure Date Duplex Scan-extrem Veins; Uni/ CT & [place] S Endovenous Laser, 1st Vein- CT & [place] [...] Providers Copied on Encounter [facility], [address] [place] [address] [address], [place], [id number], [place] tel:[phone] CVR - [facility] Encounter for follow-up examination after completed treatment for conditions other than malignant neoplasmChroni c venous hypertension (idiopathic) with other complications of right lower extremity Sep-0 - 5 Josue MARISCAL, KATHY, ANDRE Hammond. [address] [facility], [address], [place], [place], [id number] , [place]. tel:[phone] Referring Provider: Emilie Way, [address] [facility], [place], [address]. tel:[phone] [facility] MD [place]O, [address] [place] [address] Dr [address] [place], [id number], [place] tel:[phone] CVR - [place] Varicose veins of right lower extremity with other complications 5 Josue MARISCAL RVT, RPVI Robert. [address] [place] [address], [place], [place], [id number] , [place]. tel:[phone] Referring Provider: Emilie Way, [address] [facility], [place], [address]. tel:[phone] [facility] MD [place]O, [address] [place] [address] Dr Elliott [address], [id number], [place] tel:[phone] CVR - [place] No Information 5 Josue MARISCAL RVT, RPVI Robert. [address] [place] [address], [place], [place], [id number] , [place]. tel:[phone] Offic/outpt E&m Estab 5 Min Trial- Telemedicine [place] & [place] [facility] MD [place]O, [address] [place] [address] Dr [address] [place], [id number], [place] tel:[phone] CVR - [facility] Chronic venous hypertension (idiopathic) with other complications of bilateral lower extremity 5 Josue MARISCAL RVT, RPVI Robert. [address] [place] [address], [place], [place], [id number] , [place]. tel:[phone] Referring Provider: Emilie Way, [address] [facility], [place], [address]. tel:[phone] Offic Cons New/estab Mod 40 Mi- [place] & [place] [facility] MD [place]O, [address] [place] [address] Dr Elliott [address]Su[place], [id number], [place] tel:[phone] CVR - [place] Chronic venous hypertension (idiopathic) without complications of bilateral lower extremityRestl ess legs syndromePrurit us, unspecifiedPai n in left legCramp and spasmLocalized edema 5 Josue MARISCAL RVT, ANDRE Hammond. [address] [facility] [place] [address], [place], [place], [id number] , [place]. tel:[phone] Referring Provider: Emilie Way, [address] [facility], [place], [address]. tel:[phone] [facility], [address] [facility] [address], [place], [id number], [place] tel:[phone] CVR - [facility] Varicose veins of bilateral lower extremities with pain 5 Josue MARISCAL RVT, ANDRE Hammond. [address] [place] [address], [place], [place], [id number] , [place]. tel:[phone] Referring Provider: Emilie Way, [address] [facility], [place], [address]. tel:[phone] Family History Family Member Type Diagnosis Age At Onset No Information Payers Payer name Insurance type Covered green party ID Authoriza tion(s) [facility] [id number] Social History Type Description Quantity Date Captured [...]
--- OUTSIDE RECORDS SUMMARY | 2025-01-15 10:57 | XMS_ITS | Encounter Summary ---
Author Organization [employer] Address [address] [facility] [address] 7t [place] [address] Care Team Providers Care Report Specialist Name Role Phone Emilie Davis MD Primary Care Provider +1- [phone] Morales Echavarrai DRY FOLDER CLOTH Unavailable Unavailable August Unavailable Fred Castanon Unavailable Reason for Visit * Reason Onset Date Comments Referral 07/20/2024 Encounter Details Date Type Department Care Team (Late st Contact Info) Description 07/20/2024 Telephone [facility] MEDICINE [address] [place] [address] Emilie Davis MD [address] [place] [address] Referral Social History Tobacco Use Types Packs/Day [...] 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 Contact pt at [phone] documented in this encounter Plan of Treatment Upcoming Encounters Date Type Department Care Team (Late st Contact Info) Description 01/22/2025 9:00 AM EDT Clinical Support [facility] MEDICINE [address] [place] [address] Medina Lewis RN [address] [place] [address] 03/03/2025 9:30 AM EDT Office Visit [facility] MEDICINE [address] [place] [address] Emilie Davis MD [address] [place] [address] 06/04/2025 3:00 PM EST Office Visit [facility] OPTOMETRY [address] [place] [address] Merissa Donis, GINA [address] [place] [address] documented as of this encounter Visit Diagnoses Not on filedocumented in this encounter Additional Health Concerns Assessment Noted Time PHQ-9 Depression Total Score: 3 04/30/20 9:17 AM EST documented as of this encounter Care Teams Report Specialist Relationship Specialty Start Date End Date Emilie Davis MD [address] [place] [address] PCP - General Family Medicine 05/13/18 Morales Echavarria FNP [address] [place] [address] Nurse Practitioner Family Medicine 04/16/23 Aida Orozco [address] [address] Gastroenterology 05/26/24 Fred Castanon [address] [place] [address] 07/21/24 documented as of this encounter
--- OUTSIDE RECORDS SUMMARY | 2025-01-15 10:57 | XMS_ITS | Encounter Summary ---
Author Organization [employer] Address [address] [facility] 7t [place] [address] Care Team Providers Care Corporate Strategy Analyst Name Role Phone Emilie Davis MD Primary Care Provider +1- [phone] Morales Echavarria CESSATION SYSTEMS OUTREACH SPECIALIST Unavailable Unavailable August Unavailable Fred Castanon Unavailable Reason for Visit * Reason Onset Date Comments Hospital Follow-up 01/04/2025 No Show 01/04/2025 Pt no show for h df Encounter Details Date Type Department Care Team (Late st Contact Info) Description 01/04/2025 Telephone [facility] MEDICINE [address] [place], [place] [phone] Emilie Davis MD [address] [place], [place] [phone] Hospital Follow-up; No Show (Pt no show [...] 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 Hospital: [facility] Date of admission: 12/29 Discharge date: 12/31 Diagnosed: Gastritis and inflammation of the pancreas *Send message to Bryce Clinical Care Coordinators documented in this encounter Plan of Treatment Upcoming Encounters Date Type Department Care Team (Late st Contact Info) Description 01/22/2025 9:00 AM EDT Clinical Support [facility] MEDICINE [address] [place] [address] Medina Lewis, RONALD [address] [place] [address] 03/03/2025 9:30 AM EDT Office Visit [facility] MEDICINE [address] [place] [address] Emilie Davis MD [address] [place] [address] 06/04/2025 3:00 PM EST Office Visit [facility] OPTOMETRY [address] [place] [address] Merissa Donis, OD [address] [place] [address] documented as of this encounter Visit Diagnoses Not on filedocumented in this encounter Additional Health Concerns Assessment Noted Time PHQ-9 Depression Total Score: 3 04/30/20 9:17 AM EST documented as of this encounter Care Teams Corporate Strategy Analyst Relationship Specialty Start Date End Date Emilie Davis MD [address] [place] [address] PCP - General Family Medicine 05/13/18 Morales Echavarria FNP [address] [place] [address] Nurse Practitioner Family Medicine 04/16/[address] [place] [address] Gastroenterology 05/26/[address] [place] [address] 07/21/24 documented as of this encounter
--- OUTSIDE RECORDS SUMMARY | 2025-01-15 10:57 | XMS_ITS | Encounter Summary ---
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 on file Not on file documented as of this encounter Plan of Treatment Upcoming Encounters Date Type Department Care Team (Late st Contact Info) Description 01/22/2025 9:00 AM EDT Clinical Support [facility] MEDIC[facility] [address] [place] [address] Medina Lewis, RONALD [address] [place] [address] 03/03/2025 9:30 AM EDT Office Visit [facility] MEDICINE [address] [place] [address] Emilie Davis MD 230 [place] [address] 06/04/2025 3:00 PM EST Office Visit [facility] OPTOMETRY [address] [place] [address] Merissa Donis, OD 230 [place] [address] documented as of this encounter Procedures Procedure [...] EDT) Sodium 139 135 - 145 mmol/L [facility] Potassium 4.2 3.3 - 5.1 mmol/L [facility] Comment:Slight Hemolysis.Int erpret result with caution. Chloride 105 96 - 108 mmol/L [facility] Carbon Dioxide 27 22 - 29 mmol/L [facility] Anion Gap 11(L) 12 - 20 [facility] Urea Nitrogen (BUN) 12 9 - 16 mg/dL [facility] Creatinine, Serum 0.79 0.5 - 1.4 mg/dL [facility] Creatinine Clr Calc Pharmacy 72.3 [facility] Comment:Provided height and weight: 165.1 cm,57.9 kg.eGFR (calculated from the MDRD study equation) and eCrCl(calculated from the Cockcroft-Gault equation) are based ondifferent parameters and may not yield comparable results.If eCrCl result is absurd, please check patient'sheight/weight. Estimated Glomerular Filt Rate >60 [facility] Comment:Chronic Kidney Disea se: Estimated GFR < 60 mL/min/1.15v6Wekqbw Kidney Disease: Estimated GFR < 15 mL/min/1.73m2 Glucose 80 60 - 115 mg/dL [facility] Calcium 9.1 8.4 - 10.2 mg/dL [facility] Bilirubin, Total 0.3 0.0 - 1.0 mg/dL [facility] Aspartate Amino Transferase 26 5 - 31 U/L [facility] Comment:Slight Hemolysis.Int erpret result with caution. Alanine Aminotransferase 17 0 - 31 U/L [facility] Total Protein 7.2 6.5 - 8.0 g/dL [facility] Albumin Level 4.2 3.5 - 5.0 g/dL [facility] Alkaline Phosphatase 73 39 - 117 U/L [facility] 01/14/2025 3:40 PM EDT 01/14/2025 3:52 PM EDT Generic External Data Provider LAB BLOOD ORDERAB LES Final Result Performing Organization Address [facility] Co de Phone Number [facility] [address] [place] [phone] * Prothrombin Time-INR (01/14/2025 3:40 PM EDT) Pathologist [facility] Prothrombin Time 11.7 10.9 - 12.4 SEC [facility] INTERNATIONAL NORM RATIO 1.0 0.9 - 1.1 [facility] Comment:INTERNATIONAL NORMAL IZED RATIO (INR) [...] ORDERAB LES Final Result Performing Organization Address [facility] Co de Phone Number [facility] [address] [place] [phone] * (ABNORMAL) CBC auto differential (01/14/2025 3:40 PM EDT) White Blood Count 9.0 4.8 - 10.8 X10*3/uL [facility] Red Blood Count 4.50 4.20 - 5.50 X10*6/uL [facility] Hemoglobin 13.3 12.0 - 16.0 g/dl [facility] Hematocrit 39.1 37.0 - 47.0 % [facility] Mean Corpuscular Volume 86.9 80.0 - 98.0 fL [facility] Mean Corpuscular Hemoglobin 29.6 27.0 - 33.0 pg [facility] Mean Corpuscular HGB Conc 34.0 31.0 - 35.0 g/dl [facility] Red Cell Distribution Width 13.8 11.0 - 16.0 % [facility] Platelet Count 312 160 - 400 X10*3/uL [facility] Mean Platelet Volume 8.9(L) 9.4 - 12.3 fL [facility] Neutrophils Percent Auto 57.2 45 - 73 % [facility] Imm Gran Pct Auto 0.2 0.0 - 0.4 % [facility] Lymphocytes Percent Auto 34.6 20 - 40 % [facility] Monocytes Percent Auto 6.5 2 - 11 % [facility] Eosinophils Percent Auto 1.1 0 - 4 % [facility] Basophils Percent Auto 0.4 0 - 2 % [facility] NRBC Pct Auto 0.0 0.0 - 0.2 /100WBC [facility] Neutrophils Absolute Auto 5.1 2.0 - 8.3 x10*3/uL [facility] Imm Gran Abs Auto 0.02 0.00 - 0.03 X10*3/uL [facility] Lymphocytes Absolute Auto 3.1 1.2 - 4.9 X10*3/uL [facility] Monocytes Absolute Auto 0.6 0.1 - 1.2 X10*3/uL [facility] Eosinophils Absolute Auto 0.1 0.0 - 0.4 X10*3/uL [facility] Basophils Absolute Auto 0.0 0.0 - 0.2 X10*3/uL [facility] NRBC Abs Auto 0.000 0.0 - 0.012 X10*3/uL [facility] 01/14/2025 3:40 PM EDT 01/14/2025 3:52 PM EDT us Generic External Data Provider LAB BLOOD ORDERAB LES Final Result [facility] [address] [place] [phone] * FL Esophagus Barium Swallow (01/14/2025 9:40 AM EDT) Anatomical Region Laterality Modality Head, Neck Radiographic Aurora ging 01/14/2025 9:40 AM EDT Narrative 01/14/2025 11:23 AM EDT [address] [address] Fluoroscopy Report Signed Patient: Harriet Valdez MR#: [id number] : 1970 Acct:[id number] Age/Sex: 54 / F ADM Date: 01/14/25 Loc: [facility] Attending Dr: Aida ASH Ordering Physician: Aida Orozco Date of Service: 01/14/25 Procedure(s): FL barium swallow Accession Number(s): [id number] cc: Emilie Davis MD; Aida Orozco Reason [...] 01/14/25 1120 DD/ 0940 TD/TT: 01/14/25 0955 Tour Escort: [facility] Procedure Note Donotuseinterpreter, Image - 01/14/[address] [address] Fluoroscopy Report Signed Patient: Harriet ValdezMR#: [id number] : 1970Acct:[id number] Age/Sex: 54 / FADM Date: 01/14/25 Loc: [facility] Attending Dr: Aida ASH Ordering Physician: Aida Orozco Date of Service: 01/14/25 Procedure(s): FL barium swallow Accession Number(s): [id number] cc: Emilie Davis MD; Aida Orozco Reason [...] 01/14/25 1120 DD/ 0940 TD/TT: 01/14/25 0955 Tour Escort: [facility] External Provider IMG FLU OROSCOPY PROCEDURES Final Result documented in this encounter Visit Diagnoses Diagnosis Generalized abdominal pain- Primary Abdominal pain, generalized documented in this encounter Additional Health Concerns Assessment Noted Time PHQ-9 Depression Total Score: 3 04/30/20 9:17 AM EST documented as of this encounter Care Teams Chief Gauger Relationship Specialty Start Date End Date Emilie Davis MD [address] [place] [address] PCP - General Family Medicine 05/13/18 Morales Echavarria FNP [address] [place] [address] Nurse Practitioner Family Medicine 04/16/23August [address] [place] [address] Gastroenterology 05/26/24 Fred Castanon [address] [place] [address] 07/21/24 documented as of this encounter
--- OUTSIDE RECORDS SUMMARY | 2025-01-15 10:57 | XMS_ITS | Encounter Summary ---
Author Organization [employer] [facility] Address [address] [facility] 7t [place] [address] Care Team Providers Care Sweat Band Sewer Name Role Phone Emilie Davis MD Primary Care Provider +1- [phone] Morales Echavarria SHOP ROUTER Unavailable Unavailable August Unavailable Fred Castanon Unavailable Reason for Visit * Reason Onset Date Comments Referral 07/18/2022 Encounter Details Date Type Department Care Team (Late st Contact Info) Description 07/18/2022 Telephone [facility] MEDICINE [address] [place] [address] Emilie Davis MD [address] [place] [address] Referral Social History Tobacco Use Types Packs/Day [...] to our [facility]. Please contact pt [phone] documented in this encounter Plan of Treatment Upcoming Encounters Date Type Department Care Team (Late st Contact Info) Description 01/22/2025 9:00 AM EDT Clinical Support [facility] MEDICINE [address] [place] [address] Medina Lewis, RN [address] [place] [address] 03/03/2025 9:30 AM EDT Office Visit [facility] MEDICINE [address] [place] [address] Emilie Davis MD [address] [place] [address] 06/04/2025 3:00 PM EST Office Visit [facility] OPTOMETRY [address] [place] [address] GagandeepMerissa santos, OD 230 [place] [address] documented as of this encounter Visit Diagnoses Not on filedocumented in this encounter Care Teams Sweat Band Sewer Relationship Specialty Start Date End Date Emilie Davis MD [address] [place] [address] PCP - General Family Medicine 05/13/18 Morales Echavarria FNP [address] [place] [address] Nurse Practitioner Family Medicine 04/16/23 Aida Orozco [address] [place] [address] [address] [place] [address] Gastroenterology 05/26/24 Fred Castanon [address] [place] [address] 07/21/24 documented as of this encounter
--- OUTSIDE RECORDS SUMMARY | 2025-01-15 10:57 | XMS_ITS | Encounter Summary ---
Author Organization [employer] [facility] Address [address] [facility] 7t [place] [address] Care Team Providers Care Supervisor Pipeline Name Role Phone Emilie Davis MD Primary Care Provider +1- [phone] Morales Echavarria Unavailable Unavailable August Unavailable Fred Castanon Unavailable Encounter Details Date Type Department Care Team (Late st Contact Info) Description 05/27/2022 Abstract [facility] MEDICINE [address] [place] [address] [phone] Emilie Davis MD [address] [place] [address] [phone] Social History Tobacco Use Types Packs/Day Years [...] Support [facility] MEDICINE [address] [place] [address] [phone] Medina Lewis, RONALD [address] [place] [address] 03/03/2025 9:30 AM EDT Office Visit [facility] MEDICINE [address] [place] [address] [phone] Emilie Davis MD [address] [place] [address], [place] [address] 06/04/2025 3:00 PM EST Office Visit [facility] OPTOMETRY [address] [place] [address] Merissa Donis, OD [address] [place] [address] documented as of this encounter Procedures Procedure [...] ORDERABLES F inal Result Performing Organization Address City/[facility]/ZIP Co de Phone Number [facility] [address] [place] [address] [phone] documented in this encounter Visit Diagnoses Not on filedocumented in this encounter Care Teams Supervisor Pipeline Relationship Specialty Start Date End Date Emilie Davis MD [address] [place] [address] PCP - General Family Medicine 05/13/18 Morales Echavarria FNP [address] [place] [address] Nurse Practitioner Family Medicine 04/16/23 Aida Orozco [address] [place] [address] [place] [address] Gastroenterology 05/26/24 Fred Castanon [address] [place] [address] [address]rd [place] [address] 07/21/24 documented as of this encounter
--- OUTSIDE RECORDS SUMMARY | 2025-01-15 10:57 | XMS_ITS | Encounter Summary ---
Author Organization [employer] Address 75 [facility] 7t [place] [address] Care Team Providers Care Qm Consultant Name Role Phone Emilie Davis MD Primary Care Provider +1- [phone] Morales Echavarria SENIOR DEVELOPER Unavailable Unavailable August Unavailable Fred Castanon Unavailable Encounter Details Date Type Department Care Team (Late st Contact Info) Description 04/22/2022 Orders Only [facility] [address] [place], [place] [phone] Emilie Davis MD 230 [place], [place] [phone] HSV (herpes simplex virus) anogenital infection (Primary [...] Description 01/22/2025 9:00 AM EDT Clinical Support [address] [phone] Medina Lewis, RONALD 230 [place] [address] 03/03/2025 9:30 AM EDT Office Visit [address] [address] Emilie Davis MD [address] [place] [address] 06/04/2025 3:00 PM EST Office Visit [facility] OPTOMETRY [address] [place] [address] Gagandeep, Merissa, OD [address] [place] [address] documented as of this encounter Visit Diagnoses Diagnosis HSV (herpes simplex virus) anogenital infection- Primary Herpes simplex without mention of complication documented in this encounter Care Teams Qm Consultant Relationship Specialty Start Date End Date Emilie Davis MD [address] [place] [address] PCP - General Family Medicine 05/13/18 Morales Echavarria FNP [address] [place] [address] Nurse Practitioner Family Medicine 04/16/23August [address] [place] [address] Gastroenterology 05/26/24 Fred Castanon [address] [place] [address] 07/21/24 documented as of this encounter
--- OUTSIDE RECORDS SUMMARY | 2025-01-15 10:57 | XMS_ITS | Encounter Summary ---
Author Organization [employer] [facility] Address 75 [facility] 7t [place] [address] Care Team Providers Care News Copy Editor Name Role Phone Emilie Davis MD Primary Care Provider +1- [phone] Morales Echavarria Unavailable Unavailable August Unavailable Fred Castanon Unavailable Encounter Details Date Type Department Care Team (Late st Contact Info) Description 11/28/2022 Abstract [facility] MEDICINE [address] [place] [address] Emilie Davis MD 230 [place] [address] Social History Tobacco Use Types Packs/Day Years [...] Description 01/22/2025 9:00 AM EDT Clinical Support [facility] MEDICINE [address] [place] [address] Medina Lewis RN 230 [place] [address] 03/03/2025 9:30 AM EDT Office Visit [facility] MEDICINE [address] [place] [address] Emilie Davis MD [address] [place] [address] 06/04/2025 3:00 PM EST Office Visit [facility] OPTOMETRY [address] [place] [address] Gagandeep, Merissa, OD [address] [place] [address] documented as of this encounter Visit Diagnoses Not on filedocumented in this encounter Additional Health Concerns Assessment Noted Time PHQ-9 Depression Total Score: 19 023 9:24 AM EDT documented as of this encounter Care Teams News Copy Editor Relationship Specialty Start Date End Date Emilie Davis MD [address] [place] [address] PCP - General Family Medicine 05/13/18 Morales Echavarria FNP [address] [place] [address] Nurse Practitioner Family Medicine 04/16/23 Aida Orozco [address] [place] [address] Gastroenterology 05/26/24 Fred Castanon [address] [place] [address] 07/21/24 documented as of this encounter
--- OUTSIDE RECORDS SUMMARY | 2025-01-15 10:57 | XMS_ITS | Encounter Summary ---
Author Organization [employer] Address [address] [facility] [address] 7t [place] [address] Care Team Providers Care Neurodiagnostic Technologist Name Role Phone Emilie Davis MD Primary Care Provider +1- [phone] Morales Echavarria [employer] TOWER LOADER Unavailable Unavailable August Unavailable Fred Castanon Unavailable Reason for Visit * Reason Onset Date Comments Appointment Request 11/26/2024 Encounter Details Date Type Department Care Team (Late st Contact Info) Description 11/26/2024 Telephone [facility] MEDICINE [address] [place] [address] Emilie Davis MD [address] [place] [address] Appointment Request Social History Tobacco Use Types [...] 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 file Not on file Not on file documented as of this encounter Miscellaneous Notes * Telephone Encounter - Ernie Curry - 11/26/2024 9:25 AM EDT Tc from pt requesting to reschedule todays apt 11/26 Contact pt at [phone] (maldivian) documented in this encounter Plan of Treatment Upcoming Encounters Date Type Department Care Team (Late st Contact Info) Description 01/22/2025 9:00 AM EDT Clinical Support [facility] MEDICINE [address] [place] [address] Medina Lewis RN [address] [place] [address] 03/03/2025 9:30 AM EDT Office Visit [facility] MEDICINE [address] [place] [address] Emilie Davis MD [address] [place] [address] 06/04/2025 3:00 PM EST Office Visit [facility] OPTOMETRY [address] [place] [address] Merissa Donis, OD [address] [place] [address] documented as of this encounter Visit Diagnoses Not on filedocumented in this encounter Additional Health Concerns Assessment Noted Time PHQ-9 Depression Total Score: 3 04/30/20 23 9:17 AM EST documented as of this encounter Care Teams Neurodiagnostic Technologist Relationship Specialty Start Date End Date Emilie Davis MD [address] [place] [address] PCP - General Family Medicine 05/13/18 Morales Echavarria FNP [address] [place] [address] Nurse Practitioner Family Medicine 04/16/23August [address] [place] [address] 3[address] [place] [address] Gastroenterology 05/26/24 Fred Castanon [address] [place] [address] 07/21/24 documented as of this encounter
--- OUTSIDE RECORDS SUMMARY | 2025-01-15 10:57 | XMS_ITS | Encounter Summary ---
Author Organization [employer] Address [address] [facility] [address] 7[address] [place] [address] Care Team Providers Care Heel Washer Stringing Machine Operator Name Role Phone Emilie Davis MD Primary Care Provider +1- [phone] Morales Echavarria Unavailable Unavailable August Unavailable Fred Castanon Unavailable Encounter Details Date Type Department Care Team (Late st Contact Info) Description 03/25/2023 Orders Only [facility] MEDICINE [address] [place] [address] Emilie Davis MD [address] [place] [address] Social History Tobacco Use Types Packs/Day Years [...] 9:00 AM EDT Clinical Support [facility] MEDICINE [address] [place] [address] Medina Lewis, RONALD [address] [place] [address] 03/03/2025 9:30 AM EDT Office Visit [facility] MEDICINE [address] [place] [address] Emilie Davis MD [address] [place] [address] 06/04/2025 3:00 PM EST Office Visit [facility] OPTOMETRY [address] [place] [address] Merissa Donis, OD [address] [place] [address] documented as of this encounter Visit Diagnoses Not on filedocumented in this encounter Additional Health Concerns Assessment Noted Time PHQ-9 Depression Total Score: 10 023 9:08 AM EDT documented as of this encounter Care Teams Heel Washer Stringing Machine Operator Relationship Specialty Start Date End Date Emilie Davis MD [address] [place] [address] PCP - General Family Medicine 05/13/18 Morales Echavarria FNP [address] [place] [address] Nurse Practitioner Family Medicine 04/16/[address] [place] [address] Gastroenterology 05/26/24 Fred Castanon [address] [place] [address] 07/21/24 documented as of this encounter
--- OUTSIDE RECORDS SUMMARY | 2025-01-15 10:57 | XMS_ITS | Clinical Summary ---
Author Organization [employer] Address [address] [place] [address] Care Team Providers Care Crane Ladle Person Name Role Phone Emilie Davis MD Primary Care Provider [phone] Morales Echavarria Unavailable Unavailable August Unavailable Fred Castanon Unavailable Allergies Active Allergy Reactions Criticality Noted Date Comments Penicillins Anaphylaxis,Rash High 05/16/2017 Sumatriptan 10/28/2018 Medications * This document contains information received from the source organization and may not represent a complete record from that organization. Needle, Disp, (BD Disp [place]) 25G X 5/8 miscIndication s:Gender dysphoria in [...] Active cholecalcifero l (Vitamin D-3) 1.25 MG (04646 UT) capsule Take 1 capsule by mouth [...] or necrosis 12/31/2024 Overview (12/31/2024): -dx at [facility] 12/2024 Patient admitted to general medical floor [...] XR 05/20/24 Coronary artery disease invo lving [facility] without angina pectoris 05/20/2024 Overview (10/15/2024): Hx NSTE CO 09/2017 -continue oscar -Stress test without evidence [...] (A) 03/18/2024 RPRQUANT Non-Reactive 03/18/2024 -will call [facility] regarding need for testing 03/23/24 -pt [...] care facilitated by Alessio. -dental home is [facility] -health care proxy filed 03/16/24 Assessment & Plan (03/17/2024 6:12 AM EST): -next physical exam due after 03/16/2025 -eye care facilitated by Alessio. -dental home is [facility] -health care proxy filed 03/16/24 Assessment & Plan (03/22/2023 9:17 AM EST): -next physical exam due after 12/07/2023. -eye care facilitated by Alessio. -dental home is outside of [facility] Assessment & Plan (12/06/2022 10:19 AM EDT): -next physical exam dueafter 12/07/2023. -eye care facilitated by Alessio. -dental home is outside of [facility] Hx of hepatitis C 11/26/2022 [...] rays suggests osteoarthritis. Seen by rheumatology in [place]. Ibuprofen and NSAIDs cause gastritis. Minimal relief with acetaminophen. He was referred back to rheumatology in [place] 08/23/2020 but provider left the area. started on Tramadol. Take 3 times per week. He is not taking at this time. Assessment & Plan (03/17/2024 6:08 AM EST): X rays suggests osteoarthritis. Seen by rheumatology in [place]. Ibuprofen and NSAIDs cause gastritis. Minimal relief with acetaminophen. He was referred back to rheumatology in [place] 08/23/2020 but provider left the area. started on Tramadol. Take 3 times per week. He is not taking at this time. Assessment & Plan (03/22/2023 9:15 AM EST): X rays suggests osteoarthritis. Seen by rheumatology in [place]. Ibuprofen and NSAIDs cause gastritis. Minimal relief with acetaminophen. He was referred back to rheumatology in [place] 08/23/2020 but provider left the area. started on Tramadol. Take 3 times per week. Will need COT in the future. Assessment & Plan (12/06/2022 8:54 AM EDT): X rays suggests osteoarthritis. Seen by rheumatology in [place]. Ibuprofen and NSAIDs cause gastritis. Minimal relief with acetaminophen. He was referred back to rheumatology in [place] 08/23/2020 but provider left the area. started on Tramadol. Take 3 times per week. Will need COT in the future. Assessment & Plan (10/11/2022 9:58 AM EDT): X rays suggests osteoarthritis. Seen by rheumatology in [place]. Ibuprofen and NSAIDs cause gastritis. Minimal relief with acetaminophen. He was referred back to rheumatology in [place] 08/23/2020 but provider left the area. started [...] Now with palpitations. 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 Assessment & Plan (03/22/2023 9:16 AM EST): Sinus bradycardia and asymptomatic. Pt states he always has slow heart rate Pt repots heart rate in 40s recorded with home BP monitor with symptoms of dizziness recorded at home. Now with palpitations. 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 Assessment & Plan (12/06/2022 8:54 AM EDT): Sinus bradycardia and asymptomatic. Pt states he always has slow heart rate Pt repots heart rate in 40s recorded with home BP monitor with symptoms of dizziness recorded at home. Now with palpitations. 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 Assessment & Plan (10/11/2022 9:58 AM EDT): Sinus bradycardia and asymptomatic. Pt states he always has slow heart rate Pt repots heart rate in 40s recorded with home BP monitor with symptoms of dizziness recorded at home. Now with palpitations. 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 Generalized abdominal pain 06/25/2021 Overview [...] for GI. Insurance no longer accepted at [facility]. -EGD scheduled for December 2021. -10/19/24 [...] for GI. Insurance no longer accepted at [facility]. -EGD scheduled for December 2021. Assessment [...] for GI. Insurance no longer accepted at [facility]. -EGD scheduled for December 2021. Assessment [...] for GI. Insurance no longer accepted at [facility]. -EGD scheduled for December 2021. Assessment [...] for GI. Insurance no longer accepted at [facility]. -EGD scheduled for December 2021. History of non-ST elevation myocardial infarctio n (NSTEMI) 06/25/2021 Overview (10/15/2024): Hx NSTE CO 09/2017. See CAD for plan. Assessment & Plan (05/20/2024 4:29 PM EST): Hx NSTE CO 09/2017 -continue oscar -Stress test without evidence of ischemia 04/08/18 -he held statin and ASA due to GI upset -trial of restarting statin 01/[address] on 05/08/24 showed Coronary artery atherosclerosis. Pt wants to get reestablished with cardiology. -referral sent 05/20/24 Assessment & Plan (03/22/2023 9:17 AM EST): Hx NSTE CO 09/2017 -continue oscar -Stress test without evidence of ischemia 04/08/18 -he held statin and ASA due to GI upset -trial of restarting statin 01/2019 Assessment & Plan (12/06/2022 8:55 AM EDT): Hx NSTE CO 09/2017 -continue oscar -Stress test without evidence of ischemia 04/08/18 -he held statin and ASA due to GI upset -trial of restarting statin 01/2019 Assessment & Plan (10/11/2022 9:57 AM EDT): Hx NSTE CO 09/2017 -continue oscar -Stress test without evidence of ischemia 04/08/18 -he held statin and ASA due to GI upset -trial of restarting statin 01/2019 Seasonal allergies 06/25/2021 Gender 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 10/03/2018 Overview (03/26/2024): Pt identifies as male and is changed his name in [place] October 2020. -He restarted testosterone 08/2020 -S/p chest reconstruction 10/2018 -Testosterone was 654 on 10/2022 Lab Results Component Value Date TESTTOTAL 1641 (A) 03/18/2024 HGB 16.2 (H) 03/18/2024 HGB 15.8 10/18/2022 HCT 47.3 (H) 03/18/2024 Goal testosterone levels 350-700ng/dl. Assessment & Plan (03/17/2024 6:12 AM EST): Pt identifies as male and is changing his name in [place] October 2020. He restarted testosterone 08/2020 S/p chest reconstruction 10/2018 Pt would like to switch small needle to subcutaneous instead. 25 gague needles sent 12/06/2022 Testosterone was 654 on 10/2022. Assessment & Plan (03/22/2023 9:16 AM EST): Pt identifies as male and is changing his name in [place] October 2020. He restarted testosterone 08/2020 S/p chest reconstruction 10/2018 Pt would like to switch small needle to subcutaneous instead. 25 gague needles sent 12/06/2022 Testosterone was 654 on 10/2022. Assessment & Plan (12/06/2022 11:18 AM EDT): Pt identifies as male and is changing his name in [place] October 2020. He restarted testosterone 08/2020 S/p chest reconstruction 10/2018 Pt would like to switch small needle to subcutaneous instead. 25 gague needles sent 12/06/2022 Testosterone was 654 on 10/2022. Assessment & Plan (10/11/2022 9:59 AM EDT): Pt identifies as male and is changing his name in [place] October 2020. He restarted testosterone 08/2020 S/p chest reconstruction 10/[address] scan, lung 10/04/2017 Overview (05/20/2024): -Ct scan in [place] ER on 12/25/2017 showed multiple indeterminate nodules, [...] 11/15/23 and NO SHOW. Pt can call [phone] to schedule mariely. number given to call 03/16/24 -CT 05/08/24 No acute intrathoracic findings. Calcified granulomas present bilaterally. No suspicious pulmonary nodule identified. Air-fluid level present within the midthoracic esophagus can be associated with gastroesophageal reflux disease and esophageal dysmotility. Coronary artery atherosclerosis. Assessment & Plan (05/20/2024 4:05 PM EST): -Ct scan in [place] ER on 12/25/2017 showed multiple indeterminate nodules, [...] 11/15/23 and NO SHOW. Pt can call [phone] to schedule mariely. number given to call 03/16/24 -CT 05/08/24 No acute intrathoracic findings. Calcified granulomas present bilaterally. No suspicious pulmonary nodule identified. Air-fluid level present within the midthoracic esophagus can be associated with gastroesophageal reflux disease and esophageal dysmotility. Coronary artery atherosclerosis. Assessment & Plan (03/17/2024 6:13 AM EST): -Ct scan in [place] ER on 12/25/2017 showed multiple indeterminate nodules, [...] 11/15/23 and NO SHOW. Pt can call [phone] to schedule mariely. number given to call 03/16/24 Assessment & Plan (03/22/2023 9:16 AM EST): -Ct scan in [place] ER on 12/25/2017 showed multiple indeterminate nodules, largest was solid and measured 2mm. -Given that the Pt has a tobacco Hx and quit in 2018 we referrred to pulmonology that was likely distrupted by the pandemic. -Will ordered repeat CT of chest to follow the nodles. Assessment & Plan (12/06/2022 10:18 AM EDT): -Ct scan in [place] ER on 12/25/2017 showed multiple indeterminate nodules, [...] referred for OP services and referral to [facility] Psychopharmacology clinic. Provided Crisis contact [...] treatment engagement. PLAN: 1. Follow up with [facility] [place]: Not recommended for follow-up 2. Patient goal is to learn coping mechanisms to manage sxs. 3. Behavioral Recommendations a. Ind. Therapy and Medication Management b. Continue using coping skills c. [facility] support as needed. Mild major depression 06/25/20212023 Encounters Date Type Department Care Team Description 01/14/2025 Orders Only [facility] External Provider, [facility] Generalized abdominal pain (Primary Dx) 01/08/2025 Orders Only GENERIC EXTERNAL DATA DEPARTMENT Provider, Generic External Data 01/07/[address] [address] Emilie Davis MD Call Back Request; Injectable PrEP Communication 01/04/2025 Patient Outreach [address] [address] Emilie Davis MD Transition Of Care (Tcm) (HDF unscheduled) 01/04/[address] [address] Emilie Davis MD Nurse Triage 01/04/[address] [address] Emilie Davis MD Hospital Follow-up; No Show (Pt no show for hdf ) 12/29/2024 Orders Only GENERIC EXTERNAL DATA DEPARTMENT Provider, Generic External Data 11/26/2024 9:30 AM EDT Clinical Support [address] [address] Medina Lewis, RN On pre-exposure prophylaxis for HIV (Primary Dx) 11/26/2024 Orders Only [address] [address] Emilie Davis MD 11/26/2024 Travel 11/26/[address] [address] Emilie Davis MD Appointment Request 11/25/[address] [address] Emilie Davis MD February11/16/[address] [address] Medina Lewis, RN 10/20/2024 Orders Only [facility] External Provider, [facility] Generalized abdominal pain (Primary Dx) from Last [...] Industry Job Start Date Job End Date [employer] Not on file Not on [...] Description 01/22/2025 9:00 AM EDT Clinical Support [facility] MEDICINE [address] [place] [address] Medina Lewis, RONALD [address] [place] [address] 03/03/2025 9:30 AM EDT Office Visit [facility] MEDICINE [address] [place] [address] Emilie Davis MD [address] [place] [address] 06/04/2025 3:00 PM EST Office Visit [facility] OPTOMETRY [address] [place] [address] Merissa Donis, OD [address] [place] [address] Health Maintenance Due Date Last Done Comments [...] Blood Count 9.0 4.8 - 10.8 X10*3/uL [facility] Red Blood Count 4.50 4.20 - 5.50 X10*6/uL [facility] Hemoglobin 13.3 12.0 - 16.0 g/dl [facility] Hematocrit 39.1 37.0 - 47.0 % [facility] Mean Corpuscular Volume 86.9 80.0 - 98.0 fL [facility] Mean Corpuscular Hemoglobin 29.6 27.0 - 33.0 pg [facility] Mean Corpuscular HGB Conc 34.0 31.0 - 35.0 g/dl [facility] Red Cell Distribution Width 13.8 11.0 - 16.0 % [facility] Platelet Count 312 160 - 400 X10*3/uL [facility] Mean Platelet Volume 8.9(L) 9.4 - 12.3 fL [facility] Neutrophils Percent Auto 57.2 45 - 73 % [facility] Imm Gran Pct Auto 0.2 0.0 - 0.4 % [facility] Lymphocytes Percent Auto 34.6 20 - 40 % [facility] Monocytes Percent Auto 6.5 2 - 11 % [facility] Eosinophils Percent Auto 1.1 0 - 4 % [facility] Basophils Percent Auto 0.4 0 - 2 % [facility] NRBC Pct Auto 0.0 0.0 - 0.2 /100WBC [facility] Neutrophils Absolute Auto 5.1 2.0 - 8.3 x10*3/uL [facility] Imm Gran Abs Auto 0.02 0.00 - 0.03 X10*3/uL [facility] Lymphocytes Absolute Auto 3.1 1.2 - 4.9 X10*3/uL [facility] Monocytes Absolute Auto 0.6 0.1 - 1.2 X10*3/uL [facility] Eosinophils Absolute Auto 0.1 0.0 - 0.4 X10*3/uL [facility] Basophils Absolute Auto 0.0 0.0 - 0.2 X10*3/uL [facility] NRBC Abs Auto 0.000 0.0 - 0.012 X10*3/uL [facility] 01/14/2025 3:40 PM EDT 01/14/2025 3:52 PM EDT us Generic External Data Provider LAB BLOOD ORDERAB LES Final Result [facility] [address] [place] [address] [phone] * Prothrombin Time-INR (01/14/2025 3:40 PM EDT) Prothrombin Time 11.7 10.9 - 12.4 SEC [facility] INTERNATIONAL NORM RATIO 1.0 0.9 - 1.1 [facility] Comment:INTERNATIONAL NORMAL IZED RATIO (INR) [...] ORDERAB LES Final Result Performing Organization Address City/State/[facility] Co de Phone Number [facility] [address] [place] [phone] * (ABNORMAL) Comprehensive Metabolic Panel (01/14/2025 3:40 PM EDT) Pathologist [facility] Sodium 139 135 - 145 mmol/L [facility] Potassium 4.2 3.3 - 5.1 mmol/L [facility] Comment:Slight Hemolysis.Int erpret result with caution. Chloride 105 96 - 108 mmol/L [facility] Carbon Dioxide 27 22 - 29 mmol/L [facility] Anion Gap 11(L) 12 - 20 [facility] Urea Nitrogen (BUN) 12 9 - 16 mg/dL [facility] Creatinine, Serum 0.79 0.5 - 1.4 mg/dL [facility] Creatinine Clr Calc Pharmacy 72.3 [facility] Comment:Provided height and weight: 165.1 cm,57.9 kg.eGFR (calculated from the MDRD study equation) and eCrCl(calculated from the Cockcroft-Gault equation) are based ondifferent parameters and may not yield comparable results.If eCrCl result is absurd, please check patient'sheight/weight. Estimated Glomerular Filt Rate >60 [facility] Comment:Chronic Kidney Disea se: Estimated GFR < 60 mL/min/1.29w5Cosega Kidney Disease: Estimated GFR < 15 mL/min/1.73m2 Glucose 80 60 - 115 mg/dL [facility] Calcium 9.1 8.4 - 10.2 mg/dL [facility] Bilirubin, Total 0.3 0.0 - 1.0 mg/dL [facility] Aspartate Amino Transferase 26 5 - 31 U/L [facility] Comment:Slight Hemolysis.Int erpret result with caution. Alanine Aminotransferase 17 0 - 31 U/L [facility] Total Protein 7.2 6.5 - 8.0 g/dL [facility] Albumin Level 4.2 3.5 - 5.0 g/dL [facility] Alkaline Phosphatase 73 39 - 117 U/L [facility] 01/14/2025 3:40 PM EDT 01/14/2025 3:52 PM EDT us Generic External Data Provider LAB BLOOD ORDERAB LES Final Result Performing Organization Address City/State/[facility] Co de Phone Number [facility] [address] [place] [address] [phone] * [place] Esophagus Barium Swallow (01/14/2025 9:40 AM EDT) Anatomical Region Laterality Modality Head, Neck Radiographic Aurora ging 01/14/2025 9:40 AM EDT Narrative 01/14/2025 11:23 AM EDT [place] [address] Fluoroscopy Report Signed Patient: Harriet Valdez MR#: [id number] : 1970 Acct:[id number] Age/Sex: 54 / F ADM Date: 01/14/25 Loc: [facility] Attending Dr: Aida ASH Ordering Physician: Aida Orozco Date of Service: 01/14/25 Procedure(s): FL barium swallow Accession Number(s): [id number] cc: Emilie Davis MD; Aida Orozco Reason [...] 01/14/25 1120 DD/ 0940 TD/TT: 01/14/25 0955 Miniature Set Designer: [facility] Procedure Note Donotuseinterpreter, Image - 01/14/[address] [address] Fluoroscopy Report Signed Patient: Harriet Valdez#: [id number] : 1970Acct:[id number] Age/Sex: 54 / FADM Date: 01/14/25 Loc: HO.XRAY Attending Dr: Aida ASH Ordering Physician: Aida Orozco Date of Service: 01/14/25 Procedure(s): FL barium swallow Accession Number(s): [id number] cc: Emilie Davis MD; Orozco ANP-C Reason for Exam: R11.10 - Vomiting, unspecified [...] 01/14/25 1120 DD/ 0940 TD/TT: 01/14/25 0955 Miniature Set Designer: MADINA [facility] External Provider IMG FLU OROSCOPY PROCEDURES Final Result * XR Abdomen 2 View minimum (01/08/2025 10:50 AM EDT) Anatomical Region Laterality Modality Abdomen Radiographic Aurora ging 01/08/2025 10:5 0 AM EDT Narrative 01/08/2025 12:26 PM EDT [address] [address] XRay Report Signed Patient: Harriet Valdez MR#: [id number] : 1970 Acct:[id number] Age/Sex: 54 / F ADM Date: 01/08/25 Loc: [facility] Attending Dr: Aida ASH Ordering Physician: Aida Orozco Date of Service: 01/08/25 Procedure(s): XR abdomen min 2V Accession Number(s): [id number] cc: Emilie Davis MD; Aida Orozco EXAMINATION: [...] 01/08/25 1223 DD/ 1050 TD/TT: 01/08/25 1057 Miniature Set Designer: Procedure Note Donotuseinterpreter, Image - 01/08/2025 [place] [address] XRay Report Signed Patient: Harriet ValdezMR#: [id number] : 1970Acct:[id number] Age/Sex: 54 / FADM Date: 01/08/25 Loc: [facility] Attending Dr: Aida ASH Ordering Physician: Aida Orozco Date of Service: 01/08/25 Procedure(s): XR abdomen min 2V Accession Number(s): [id number] cc: Emilie Davis MD; Aida Orozco EXAMINATION: [...] 01/08/25 1223 DD/ 1050 TD/TT: 01/08/25 1057 Miniature Set Designer: [facility] External Provider IMG XR PROCEDURES Edited Result - Final * (ABNORMAL) VITAMIN D 25-OH (D2 AND D3) (01/08/2025 10:47 AM EDT) Vitamin D, 25-OH, D2 <4 ng/mL [facility] Comment:This test was develo ped and its analytical performancecharacteristics have been determined by [facility], [place]. It hasnot been cleared or approved by the U.S. Food and DrugAdministration. This assay has been validated pursuantto the CLIA regulations and is used for clinicalpurposes.THIS TEST WAS PERFORMED AT:[facility] [id number] [place] [address]KFWCLFMMARCI ESTEVEZ MD,PHD Vitamin D, 25-OH, D3 28 ng/mL [facility] Comment:This test was develo ped and its analytical performancecharacteristics have been determined by [employer] [place], [place]. It hasnot been cleared or approved by the U.S. Food and DrugAdministration. This assay has been validated pursuantto the CLIA regulations and is used for clinicalpurposes. Vitamin D, 25-OH, Total 28(A) 30 - 100 ng/mL [facility] Comment:Vitamin D, 25-Hydrox y reports [...] = 30 ng/mL.For additional information, please refer tohttp://education.[employer] Pharm[employer]/faq/MEB663(This link is being provided for informational/educational purposes only.) 01/08/2025 10:4 7 AM EDT 01/08/2025 10:47 AM EDT us Generic External Data Provider LAB BLOOD ORDERAB LES Final Result Performing Organization Address City/[facility]/ZIP Co de Phone Number [facility] [address] [place] [phone] * Sed Rate by Modified Marianren (01/08/2025 10:47 AM EDT) Erythrocyte Sedimentation Rate 9 0 - 20 MM/HR [facility] Comment:Patients with polycy themia and many hemoglobin abnormalitiesmay have depressed sed rates whereas patients with anemiamay have elevated sed rates. 01/08/2025 10:4 7 AM EDT 01/08/2025 10:47 AM EDT us Generic External Data Provider LAB BLOOD ORDERAB LES Final Result Performing Organization Address City/[facility]/ZIP Co de Phone Number [facility] [address] [place] [phone] * C-reactive Protein (01/08/2025 10:47 AM EDT) [facility] C Reactive Protein <0.10 < or = 0.50 mg/dL [facility] 01/08/2025 10:4 7 AM EDT 01/08/2025 10:47 AM EDT Generic External Data Provider LAB BLOOD ORDERAB LES Final Result Performing Organization Address [facility] de Phone Number [facility] [address] [place] [phone] * Lipase (01/08/2025 10:47 AM EDT) Only the most recent of2 resultswithin the time period is included. [facility] Lipase 33 8 - 78 U/L [facility] 01/08/2025 10:4 7 AM EDT 01/08/2025 10:47 AM EDT Generic External Data Provider LAB BLOOD ORDERAB LES Final Result Performing Organization Address [facility] de Phone Number [facility] [address] [place] [phone] * (ABNORMAL) Amylase (01/08/2025 10:47 AM EDT) [facility] Amylase 114(H) 28 - 100 U/L [facility] 01/08/2025 10:4 7 AM EDT 01/08/2025 10:47 AM EDT Generic External Data Provider LAB BLOOD ORDERAB LES Final Result Performing Organization Address [facility] de Phone Number [facility] [address] [place] [phone] * (ABNORMAL) Drug Monitoring, Panel 1, Screen, Urine (12/29/2024 1:09 PM EDT) [facility] Opiate Screen Urine Not Detected Not Detect [facility] Comment:Opiate cut-off is 30 0 ng/mL.Positive results are unconfirmed and should not be used fornon-medical purposes. Barbiturates, Urine Not Detected Not Detect [facility] Comment:Barbiturate cut-off is 200 ng/mL.Positive results are unconfirmed and should not be used fornon-medical purposes. Phencyclidine Screen Urine Not Detected Not Detect [facility] Comment:Phencyclidine cut-of f is 25 ng/mL.Positive results are unconfirmed and should not be used fornon-medical purposes. Amphetamine Screen Urine Not Detected Not Detect [facility] Comment:Amphetamine cut-off is 1000 ng/mL.Positive results are unconfirmed and should not be used fornon-medical purposes. Benzodiazepines Screen Urine Not Detected Not Detect [facility] Comment:Benzodiazepine cut-o ff is 200 ng/mL.Positive results are unconfirmed and should not be used fornon-medical purposes. Cocaine Screen Urine Not Detected Not Detect [facility] Comment:Cocaine cut-off is 3 00 ng/mL.Positive results are unconfirmed and should not be used fornon-medical purposes. Cannabinoid Screen Urine POSITIVE(A) Not Detect [facility] Comment:Cannabinoid cut-off is 50 ng/mL.Positive results are unconfirmed and should not be used fornon-medical purposes. Methadone Screen, Urine Not Detected Not Detect ng/mL [facility] Comment:Methadone cut-off is 300 ng/mL.Positive results are unconfirmed and should not be used fornon-medical purposes. FENTANYL URINE Not Detected Not Detect [facility] Comment:Fentanyl cut-off is 1 ng/mL.Positive results are unconfirmed and should not be used fornon-medical purposes. Oxycodone Urine Screen Not Detected Not Detect ng/mL [facility] Comment:Oxycodone cut-off is 100 ng/mL.Positive results are unconfirmed and should not be used fornon-medical purposes. Buprenorphine Screen Not Detected Not Detect ng/mL [facility] Comment:Buprenorphine cut-of f is 5 ng/mL.Positive results are unconfirmed and should not be used fornon-medical purposes. 12/29/2024 1:09 PM EDT 12/29/2024 1:16 PM EDT us Generic External Data Provider LAB URINE ORDERAB LES Final Result Performing Organization Address [facility] Co de Phone Number [facility] [address] [place] [phone] * Urinalysis w/reflex microscopic (12/29/2024 1:09 PM EDT) Color Urine Yellow [facility] Appearance Urine Clear [facility] PH 8.0 5.0 - 9.0 [facility] Glucose Urine UA Negative Negative mg/dL [facility] Urine Blood Negative Negative [facility] Specific [place] - Urine 1.015 1.005 - 1.025 [facility] Urine Protein Negative Neg-Trace mg/dL [facility] Urine Ketones Negative Negative mg/dL [facility] Nitrite Urine Negative Negative [facility] Leukocyte Esterase Urine Negative Negative [facility] 12/29/2024 1:09 PM EDT 12/29/2024 1:16 PM EDT Narrative [facility] - 12/29/2024 1:22 PM EDT Urine, Clean Catch us Generic External Data Provider LAB URINE ORDERAB LES Final Result Performing Organization Address City/[facility] Co de Phone Number [facility] [address] [place] [phone] * CT Abdomen Pelvis w/ Contrast (12/29/2024 12:55 PM EDT) Anatomical Region Laterality Modality Body, Pelvis, Abdomen Computed T omography 12/29/2024 12:5 5 PM EDT Narrative 12/29/2024 1:42 PM EDT [address] [address] [address] Scan Report Signed Patient: Harriet Valdez MR#: [id number] : 1970 Acct:[id number] Age/Sex: 54 / F ADM Date: 12/29/24 Loc: .ED Attending Dr: Ordering Physician: Cheryl Cobb DO Date of Service: 12/29/24 Procedure(s): CT abdomen pelvis w IV con Accession Number(s): [id number] cc: Emilie Davis MD; Cheryl Cobb DO Report Number: [id number]: Total DLP = 296.00 mGy-cm EXAMINATION: CT [...] 12/29/24 1340 DD/ 1255 TD/TT: 12/29/24 1329 Miniature Set Designer: Procedure Note Donotuseinterpreter, Image - 12/29/[address] [place] [address] [address] Scan Report Signed Patient: Harriet ValdezMR#: [id number] : 1970Acct:[id number] Age/Sex: 54 / FADM Date: 12/29/24 Loc: .ED Attending Dr: Ordering Physician: Cheryl Cobb DO Date of Service: 12/29/24 Procedure(s): CT abdomen pelvis w IV con Accession Number(s): [id number] cc: Emilie Davis MD; Cheryl Cobb DO Report Number: [id number]: Total DLP = 296.00 mGy-cm EXAMINATION: CT [...] 12/29/24 1340 DD/ 1255 TD/TT: 12/29/24 1329 Miniature Set Designer: [facility] External Provider IMG CT PROCEDURES Final Result * Hepatic Function Panel (12/29/2024 10:00 AM EDT) Bilirubin, Total 0.4 0.0 - 1.0 mg/dL [facility] Bilirubin, Direct 0.1 0.0 - 0.5 mg/dL [facility] Aspartate Amino Transferase 26 5 - 31 U/L [facility] Alanine Aminotransferase 19 0 - 31 U/L [facility] Total Protein 7.6 6.5 - 8.0 g/dL [facility] Albumin Level 4.4 3.5 - 5.0 g/dL [facility] Alkaline Phosphatase 90 39 - 117 U/L [facility] 12/29/2024 10:0 0 AM EDT 12/29/2024 10:02 AM EDT us Generic External Data Provider LAB BLOOD ORDERAB LES Final Result [facility] [address] [place] [address] [phone] * (ABNORMAL) Basic Metabolic Panel (12/29/2024 10:00 AM EDT) Sodium 142 135 - 145 mmol/L [facility] Potassium 4.0 3.3 - 5.1 mmol/L [facility] Chloride 107 96 - 108 mmol/L [facility] Carbon Dioxide 30(H) 22 - 29 mmol/L [facility] Anion Gap 9(L) 12 - 20 [facility] Urea Nitrogen (BUN) 10 9 - 16 mg/dL [facility] Creatinine, Serum 0.75 0.5 - 1.4 mg/dL [facility] Creatinine Clr Calc Pharmacy 66.2 [facility] Comment:Provided height and weight: 162.56 cm,49.5 kg.eGFR (calculated from the MDRD study equation) and eCrCl(calculated from the Cockcroft-Gault equation) are based ondifferent parameters and may not yield comparable results.If eCrCl result is absurd, please check patient'sheight/weight. Estimated Glomerular Filt Rate >60 [facility] Comment:Chronic Kidney Disea se: Estimated GFR < 60 mL/min/1.92n6Prrxft Kidney Disease: Estimated GFR < 15 mL/min/1.73m2 Glucose 117(H) 60 - 115 mg/dL [facility] Calcium 9.3 8.4 - 10.2 mg/dL [facility] 12/29/2024 10:0 0 AM EDT 12/29/2024 10:02 AM EDT Generic External Data Provider LAB BLOOD ORDERAB LES Final Result Performing Organization Address [facility] Co de Phone Number [facility] [address] [place] [phone] * (ABNORMAL) Confirmatory Syphilis Profile (11/26/2024 1:24 PM EDT) Pathologist [facility] Rapid Plasma Reagin, Quant Non-React darren Nonreactive [facility] Treponema pallidum Antibody, Particle Agglutination Reactive( A) Nonreactive [facility] Comment:These results must b e reported by the ordering clinician orclinical facility to the [facility] required by state law.Testing performed at: [address] [address] 11/26/2024 1:24 PM EDT 11/27/2024 3:54 AM EDT Emilie Davis MD LAB BLOOD ORDERABLES Final Result Performing Organization Address [facility] de Phone Number [facility] [address] [place] [phone] * (ABNORMAL) Syphilis Screen (11/26/2024 1:24 PM EDT) Syphilis Screen Reactive( A) Nonreactive [facility] Comment:Reactive specimens a re sent to the [facility] Labfor confirmatory tests. 11/26/2024 1:24 PM EDT 11/26/2024 4:06 PM EDT Emilie Davis MD LAB BLOOD ORDERABLES Final Result Performing Organization Address [facility] Co de Phone Number [facility] [address] [place] [phone] * Hepatitis C Viral RNA, Quantitative, Real-Time PCR (11/26/2024 1:24 PM EDT) [facility] Hepatitis C Viral Load <15 NOT DETECTED NOT DETECTED IU/mL [facility] HCV Log PCR <1.18 NOT DETECTED NOT DETECTED Log IU/mL [facility] Comment:For additional infor nura, please refer tohttp://education.Touchtalent/faq/FEI07y0(This link is being provided for informational/educational purposes only.)THIS TEST WAS PERFORMED AT:[facility] [place] [id number] MALDONADO MD 11/26/2024 1:24 PM EDT 11/27/2024 2:28 PM EDT Emilie Davis MD LAB BLOOD ORDERABLES Final Result Performing Organization Address City/[facility]/ZIP Co de Phone Number [facility] [address] [place] [address] [phone] * (ABNORMAL) Hepatitis C Antibody with Reflex to HCV, RNA, Quantitative, Real- Time PCR (11/26/2024 1:24 PM EDT) [facility] Hepatitis C Antibody Reactive( A) Nonreactive [facility] Comment:Presumptive evidence of antibodies to HCV. 11/26/2024 1:24 PM EDT 11/26/2024 4:06 PM EDT Emilie Davis MD LAB BLOOD ORDERABLES Final Result Performing Organization Address [facility]/ZIP Co de Phone Number [facility] [address] [place] [phone] * Methylmalonic Acid (11/26/2024 1:24 PM EDT) [facility] Methylmalonic Acid 197 55 - 335 nmol/L [facility] Comment: Serum methylmalonic acid (MMA) [...] outcomes,such as neural tube defects and intrauterine growthrestriction.[email or web address] utilized Multi-Modal Decomposition(MMD) analysis to establish first and second trimester-specific MMA reference intervals in , as givenbelow:MMA, First trimester (<13 wks gestation): 58-167 nmol/LMMA, Second trimester (13-23 wks gestation):63-241 nmol/LThis test was developed and its analytical performancecharacteristics have been determined by [employer] It has not been cleared or approved by theFDA. This assay has been validated pursuant to the CLIAregulations and is used for clinical purposes.THIS TEST WAS PERFORMED AT:[facility] [place] [address]WXXLGATMARCI ESTEVEZ MD,PHD 11/26/2024 1:24 PM EDT 11/26/2024 4:06 PM EDT us Generic External Data Provider LAB BLOOD ORDERAB LES Final Result [facility] [address] [place] [phone] * HIV-1 RNA, Quantitative, Real-Time PCR (11/26/2024 1:24 PM EDT) HIV RNA PCR Qn Copies NOT DETECTED NOT DETECTED copies/mL [facility] HIV RNA PCR Qn Log Copies NOT DETECTED NOT DETECTED [facility] Comment:Result Units: Log co pies/mLThis test was performed using Real-Time Polymerase ChainReaction.Reportable Range: 20 copies/mL to 10,000,000 copies/mL(1.30 log copies/mL to 7.00 log copies/mL).THIS TEST WAS PERFORMED AT:[facility] [address] [id number] MALDONADO MD 11/26/2024 1:24 PM EDT 11/26/2024 4:06 PM EDT Emilie Davis MD LAB BLOOD ORDERABLES Final Result Performing Organization Address [facility] Phone Number [facility] [address] [place] [phone] * RPR (Monitor) with Reflex to??Titer (11/26/2024 1:24 PM EDT) RPR (Monitor) w/Refl Titer NON-REACTI VE NON-REACT DARREN [facility] Comment:THIS TEST WAS PERFOR MED AT:[facility] [address] [id number] MALDONADO MD Rapid Plasma Reagin Ab Titer TNP [facility] 11/26/2024 1:24 PM EDT 11/26/2024 4:06 PM EDT Emilie Davis MD LAB BLOOD ORDERABLES Final Result Performing Organization Address [facility] de Phone Number [facility] [address] [place] [phone] * POCT RAPID HIV SCREENING (11/26/2024 10:08 AM EDT) Blood 11/26/2024 10:0 8 AM EDT Narrative Medina Lewis RN - 11/26/2024 10:08 AM EDT Negative Emilie Davis MD POINT OF CARE TEST ENTER/E DIT ORDERABLES Final Result * NM Gastric Emptying Solid (10/20/2024 8:15 AM EDT) Anatomical Region Laterality Modality Body Nuclear Medicine 10/20/2024 8:15 AM EDT Narrative 10/20/2024 1:44 PM EDT [place] [address] Nuclear Medicine Report Signed Patient: Harriet Valdez MR#: [id number] : 1970 Acct:[id number] Age/Sex: 54 / F ADM Date: 10/20/24 Loc: ANJU Attending Dr: Aida ASH Ordering Physician: Aida Orozco Date of Service: 10/20/24 Procedure(s): NM gastric emptying study Accession Number(s): [id number] cc: Emilie Davis MD; Aida Orozco EXAMINATION: OK RADIONUCLIDE SOLID FOOD GASTRIC EMPTYING 4-HOUR STUDY [...] hours 16% 4 hours 8% (normal 0%-10%) NM/OK gastric emptying study IMPRESSION: Normal 4-hour solid [...] grading per JNMT Consensus Recommendations in 2008 (https://tech.snmjournals.org/content/36//44) Grade 1 (mild retention): 11-20% at 4h Grade 2 (moderate retention): 21-35% at 4h Grade 3 (severe retention): 36-50% at 4h Grade 4 (very severe retention): >50% retention at 4h Electronically signed by: Jimmy Pedroza MD 10/20/2024 01:41 PM EDT RP Dictated By: Jimmy Pedroza MD Signed By: <Electronically signed by Jimmy Pedroza MD in OV> 10/20/24 1341 DD/ 0815 TD/TT: 10/20/24 1235 Miniature Set Designer: [facility] Procedure Note Donotuseinterpreter, Image - 10/20/2024 [place] [address] Nuclear Medicine Report Signed Patient: Harriet Valdez#: [id number] : 1970Acct:[id number] Age/Sex: 54 / FADM Date: 10/20/24 Loc: ANJU Attending Dr: Aida ASH Ordering Physician: Aida Orozco Date of Service: 10/20/24 Procedure(s): NM gastric emptying study Accession Number(s): [id number] cc: Emilie Davis MD; Aida Orozco EXAMINATION: [...] 10/20/24 1341 DD/ 0815 TD/TT: 10/20/24 1235 Miniature Set Designer: [facility] External Provider IM NM PROCEDURES Final Result * (ABNORMAL) Lipid Panel, Standard (07/24/2024 1:36 PM EDT) Triglycerides 141 <150 mg/dL [facility] Comment:Desirable Triglyceri de: less than 150 mg/dLBorderline High Triglyceride 150-199 mg/dLHigh Triglyceride: 200-499 mg/dLVery High Triglyceride: greater than or equal to 5OO mg/dL Cholesterol 205(H) <200 mg/dL [facility] Comment:Desirable Cholestero l: less than 200 mg/dLBorderline High Cholesterol: 200-239 mg/dLHigh Cholesterol: greater than 239 mg/dL LDL Cholesterol Calculated 114(H) <100 mg/dL [facility] Comment:Desirable LDL: less than 100 mg/dLNear Optimal/Above Optimal LDL: 110- 129 mg/dLBorderline High LDL: 130-159 mg/dLHigh LDL: 160-189 mg/dLVery High LDL: greater than or equal to 190 mg/dL HDL Cholesterol 63 >40 mg/dL [facility] Comment:Desirable HDL: great er than 40 mg/dL Note: This HDL assay may give artificially low results in patients with liver disease. 07/24/2024 1:36 PM EDT 07/24/2024 4:20 PM EDT us Generic External Data Provider LAB BLOOD ORDERAB LES Final Result [facility] [address] [place] [phone] * HPV mRNA E6/E7 w/Reflex to HPV Genotypes 16, 18/45 (03/22/2023 11:30 AM EST) HPV nRNA E6/E7 Not Detected Not Detected [facility] Comment:Methodology: Transcr iption-Mediated AmplificationThis assay detects E6/E7 viral messenger RNA (mRNA) from 14high-risk HPV types (16,18,31,33,35,39,45,51,52,56,58,59,66,68).Cervical sources are required for HPV testing.If a vaginal source from a patient who has had atotal hysterectomy with removal of cervix wassubmitted, please contact the testing laboratoryfor alternative testing options.For additional information, please refer tohttp://education.Touchtalent/faq/BGE769s9(This link if provided for information/educational purposes only.)THIS TEST WAS PERFORMED AT:[facility] [place] [id number] MALDONADO MD HPV mRNA E6/E7 TNP [facility] HPV 16 RNA VTP [facility] HPV 18/45 RNA [facility] 03/22/2023 11:3 0 AM EST 03/25/2023 12:20 PM EST Emilie Davis MD LAB CYTOLOGY ORDERABLES nal Result [facility] [address] [place] [phone] * Pap Smear (03/22/2023 11:30 AM EST) 03/22/2023 11:3 0 AM EST 03/25/2023 12:20 PM EST Narrative [facility] - 04/11/2023 11:26 AM EST ----- ------- Name: Harriet Valdez Age/Sex: 53/F : 1970 Unit#: [id number] Attend Dr: RADHA VILLAREAL MD Re03/22/23 Status: DEP REF Location: HO.HHCLNP Disch: ----- ------- SPEC : [id number] RECD: 03/25/23 STATUS: JANIE DUNLAP NUM: [id number] AMBREEN: 03/22/23-[address]: Emilie Davis MD ENTERED: 03/25/23-7624 SP TYPE: Pap Smr OTHR DR: ORDERED: Pap Smear Interpretation Satisfactory for evaluation. Negative for intraepithelial lesion or malignancy. HPV mRNA E6/E7: NOT DETECTED This assay detects E6/E7 viral messenger RNA (mRNA) from 14 high-risk HPV types (16, 18, 31, 33, 35, 39, 45, 51, 52, 56, 58, 59, 66, 68) HPV testing performed by [email or web address], [place], [place]. See reference laboratory portion of the EMR for entire report. Clinical Information LMP: Unknown date Previous PAP test: Unknown date, WNL Other history: Pt on testosterone, surgical post menopause Material Received ThinPrep-Cervical ----- ------- Signed (signature on file) SERENA Alejandro (ASCP) 04/11/23 1126 ----- ------- END OF REPORT Emilie Davis MD LAB CYTOLOGY ORDERABLES Fi nal Result [facility] [address] [place] [phone] * Colonoscopy (01/30/2018) Colonoscopy normal Sammy Provider HEALTH MAINTENANCE Final Result from Last 3 Months or Most Recently Relevant to Health Maintenance Insurance [facility] 3 Advance Directives Documents on File Type Date 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
--- OUTSIDE RECORDS SUMMARY | 2025-01-15 10:57 | XMS_ITS | Encounter Summary ---
Author Organization [employer] [facility] Address [address] [facility] [address] [place] [address] Care Team Providers Care Warehouse Supervisor Name Role Phone Emilie Davis MD Primary Care Provider [phone] Morales Echavarria TOOL GRINDING TECHNICIAN Unavailable Unavailable August Unavailable Fred Castanon Unavailable Reason for Visit * Reason Comments Med Refill Encounter Details Date Type Department Care Team (Late st Contact Info) Description 06/27/2022 Refill [facility] MEDICINE [address] [place] [phone] Emilie Davis MD [address] [place] [address] [phone] Social History Tobacco Use Types Packs/Day Years [...] Description 01/22/2025 9:00 AM EDT Clinical Support [facility] MEDICINE [address] [place] [address] [phone] Medina Lewis, RONALD [address] [place] [phone] 03/03/2025 9:30 AM EDT Office Visit [facility] MEDICINE [address] [place] [address] [phone] Emilie Davis MD [address] [place] [address] 06/04/2025 3:00 PM EST Office Visit [facility] OPTOMETRY [address] [place] [address] Gagandeep Merissa, OD [address] [place] [address] documented as of this encounter Visit Diagnoses Not on filedocumented in this encounter Care Teams Warehouse Supervisor Relationship Specialty Start Date End Date Emilie Davis MD [address] [place] [address] PCP - General Family Medicine 05/13/18 Morales Echavarria FNP [address] [place] [phone] Nurse Practitioner Family Medicine 04/16/23 Aida Orozco [address] [place] [address] [address] [place] [address] Gastroenterology 05/26/24 Fred Castanon [address] [place] [phone] 07/21/24 documented as of this encounter
--- OUTSIDE RECORDS SUMMARY | 2025-01-15 10:57 | XMS_ITS | Encounter Summary ---
Author Organization [employer] [facility] Address [address] [facility] [address]t [place] [address] Care Team Providers Care Finance Controller Name Role Phone Emilie Davis MD Primary Care Provider [phone] Morales Echavarria DIPPER FISH Unavailable Unavailable August Unavailable Fred Castanon Unavailable Reason for Visit * Reason Onset Date Comments Med Refill 04/22/2024 Encounter Details Date Type Department Care Team (Late st Contact Info) Description 04/22/2024 Telephone [facility] MEDICINE [address] [place] [address] Emilie Davis MD [address] [place] [address] Med Refill Social History Tobacco Use Types [...] 200 MG/5ML suspension To be sent to: [facility] - [place], [place] - [address] [facility] documented in this encounter Plan of Treatment Upcoming Encounters Date Type Department Care Team (Late st Contact Info) Description 01/22/2025 9:00 AM EDT Clinical Support [facility] MEDICINE [address] [place] [address] Medina Lewis, RONALD [address] [place] [address] 03/03/2025 9:30 AM EDT Office Visit [facility] MEDICINE [address] [place] [address] Emilie Davis MD [address] [place] [address] 06/04/2025 3:00 PM EST Office Visit [facility] OPTOMETRY [address] [place] [address] Gagandeep, Merissa, OD [address] [place] [address] documented as of this encounter Visit Diagnoses Not on filedocumented in this encounter Additional Health Concerns Assessment Noted Time PHQ-9 Depression Total Score: 3 04/30/20 9:17 AM EST documented as of this encounter Care Teams Finance Controller Relationship Specialty Start Date End Date Emilie Davis MD [address] [place] [address] PCP - General Family Medicine 05/13/18 Morales Echavarria FNP [address] [place] [address] Nurse Practitioner Family Medicine 04/16/23 Pam Aida [address] [place] [phone] Gastroenterology 05/26/24 Fred Castanon [address] [place] [phone] 07/21/24 documented as of this encounter
--- OUTSIDE RECORDS SUMMARY | 2025-01-15 10:57 | XMS_ITS | Encounter Summary ---
Author Organization [employer] Address [address] [facility] 7[address] [place] [address] Care Team Providers Care Orange Picker Name Role Phone Emilie Davis MD Primary Care Provider [phone]- [phone] Morales Echavarria Unavailable Unavailable August Unavailable Fred Castanon Unavailable Reason for Visit * Reason Comments Med Refill Encounter Details Date Type Department Care Team (Late st Contact Info) Description 01/01/2023 Refill [facility] MEDICINE [address] [place] [address] Emilie Davis MD [address] [place] [address] Social History Tobacco Use Types Packs/Day Years [...] Description 01/22/2025 9:00 AM EDT Clinical Support [facility] MEDICINE [address] [place] [phone] Medina Lewis, RONALD [address] [place] [address] 03/03/2025 9:30 AM EDT Office Visit [facility] MEDICINE [address] [place] [address] Emilie Davis MD [address] [place] [address] 06/04/2025 3:00 PM EST Office Visit [facility] OPTOMETRY [address] [place] [address] Merissa Donis, OD [address] [place] [address] documented as of this encounter Visit Diagnoses Not on filedocumented in this encounter Additional Health Concerns Assessment Noted Time PHQ-9 Depression Total Score: 19 023 9:24 AM EDT documented as of this encounter Care Teams Orange Picker Relationship Specialty Start Date End Date Emilie Davis MD [address] [place] [phone] PCP - General Family Medicine 05/13/18 Morales Echavarria FNP [address] [place] [address] Nurse Practitioner Family Medicine 04/16/[address] [place] [address] Gastroenterology 05/26/24 Fred Castanon [address] [place] [phone] 07/21/24 documented as of this encounter
--- OUTSIDE RECORDS SUMMARY | 2025-01-15 10:57 | XMS_ITS | Encounter Summary ---
Author Organization [employer] 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) Social [...] Description 01/22/2025 9:00 AM EDT Clinical Support [facility] [address] [place] [address] Medina Lewis RN [address] [place] [address] 03/03/2025 9:30 AM EDT Office Visit [facility] [address] [place] [address] Emilie Davis MD [address] [place] [address] 06/04/2025 3:00 PM EST Office Visit [facility] [address] [place] [address] Merissa Donis, OD [address] [place] [address] documented as of this encounter Visit Diagnoses Diagnosis Gender 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- Primary documented in this encounter Additional Health Concerns Assessment Noted Time PHQ-9 Depression Total Score: 3 04/30/20 23 9:17 AM EST documented as of this encounter Care Teams Animal Physiologist Relationship Specialty Start Date End Date Emilie Davis MD [address] [place] [phone] PCP - General Family Medicine 05/13/18 Morales Echavarria FNP [address] [place] [address] Nurse Practitioner Family Medicine 04/16/23 Aida Orozco [address] [place] [address] Gastroenterology 05/26/24 Fred Castanon [address] [place] [address] 07/21/24 documented as of this encounter
[2025-01-15 13:41] VITALS: BP 106/77; PULSE 62; RESP 12; TEMP 36.6; O2SAT 99; BMI 17.0
[2025-01-15] MEDS: Lactated Ringers 1,000 ML 80 ML IVCONT (13:47)
--- NOTE | 2025-01-15 14:15 | HO.ANESPROP2 ---
Documented by User: Alyssia Ace NP 01/15/25 10:34 HPI - Anesthesia Eval Consult details Narrative: 54 yr old female (identifies as male) for upper endoscopy with balloon dilitation H/O NSTEMI in 2018: [place] [facility] [place] had neg cardiolite stress test 10/2024, echo updated 10/2024, see below [facility] Active Problems Active Problems: All Active Problems (Updated 01/15/25 @ 00:01 by Jhonny Newsome) Low back pain radiating to left leg (Acute) Acute pancreatitis (Acute) Sleep difficulties (Acute) Elevated C-reactive protein (CRP) (Acute) Elevated erythrocyte sedimentation rate (Acute) Cervicalgia (Acute) Vitamin D deficiency (Acute) Low serum vitamin B12 (Acute) Family history of polyps in the colon (Acute) GERD (gastroesophageal reflux disease) (Acute) Depression (Acute) Excessive daytime sleepiness (Acute) Snoring (Acute) Cerebellar tonsillar ectopia (Acute) Cluster headache (Acute) Coronary artery calcification (Acute) Bile reflux esophagitis (Acute) Bile reflux gastritis (Acute) Hyperlipemia (Acute) Hypertension (Acute) Chronic constipation (Acute) Dysphagia (Acute) Disc degeneration, lumbar (Acute) Spondylosis of lumbar spine (Acute) Erosive osteoarthritis of hands, bilateral (Acute) Past Medical History Medical History Erosive esophagitis Abdominal pain Sleep difficulties Upper abdominal pain Vomiting LEE (dyspnea on exertion) Arthritis Occipital neuralgia of left side New onset headache Diverticulosis of colon Chronic, continuous use of opioids Chronic GERD Palpitations Hypotension History of palpitations Dysphagia Disc degeneration, lumbar Spondylosis of lumbar spine Depression Past heart attack Hyperlipemia Erosive osteoarthritis of hands, bilateral GERD (gastroesophageal reflux disease) Hypertension Family History Family History Mother Hypertension Breast cancer Maternal Grandmother Myocardial infarct Skin cancer Sister Heart problem Breast cancer Family/Other Esophageal cancer Family history of problems with anesthesia: No Surgical History Surgical History History of cholecystectomy Hx of colonoscopy History of esophagogastroduodenoscopy (EGD) H/O bilateral mastectomy H/O: hysterectomy History of Problems with Anesthesia: No Social History Social History Household Members: Family Housing: Apartment Are you a primary healthcare financial analyst to a significant other at home: No Do you presently have visiting nurse or other home services: No Alcohol intake: never Patient Tobacco Use Status: Former Tobacco user Use of substances other than those prescribed or required for medical reasons: No Substance Use Type: Marijuana Substance Use Frequency: Daily Have you been hit, kicked, punched, or otherwise hurt by someone within the past year? If so, by whom?: No Are you DNR?: No Advance Directives: No Advance Directives Information Provided: Yes Patient : No : No Poor oral hygiene: No service: No Meds Allergies Allergy/AdvReac Type Severity Reaction Status Date / Time black pepper Allergy Severe Anaphylaxis Verified 01/15/25 13:25 Penicillins (PENICILLINS) Allergy Intermediate HIVES,SWELL Verified 01/15/25 13:25 ING sumatriptan (SUMATRIPTAN) AdvReac Severe PT STATES Verified 01/15/25 13:25 HEART ATTACK Home Medications ?Medication ?Instructions ?Recorded ?Confirmed ?Last Taken ?Type cabotegravir 600 mg/3 mL (200 600 mg IM [id number] 05/26/24 01/12/25 1 Month Ago History mg/mL) IM suspension,extended ~11/28/24 release (Apretude) sucralfate 100 mg/mL oral 20 ml PO DAILY PRN ULCERS 12/07/24 01/12/25 Unknown History suspension cholecalciferol (vitamin D3) 1,250 1,250 mcg PO Q2W 12/29/24 01/12/25 2 Weeks Ago History mcg (50,000 unit) capsule ~12/15/24 Exam Pertinent Lab Results Pertinent Lab Results: Laboratory Tests 01/14/25 15:40 WBC 9.0 RBC 4.50 Hgb 13.3 Hct 39.1 Plt Count 312 D Sodium 139 Potassium 4.2 BUN 12 Creatinine 0.79 Narrative Narrative: Echo 10/2024 Conclusions: - Normal left ventricular size, thickness, systolic function, and wall motion. The visually estimated ejection fraction is between 55-60%. Diastolic function is normal for age. Normal global longitudinal strain -20%. - Normal right ventricular cavity size and systolic function. - The right atrium is mildly dilated. Cardiolite stress test 10/2024 Impression: 1. Myocardial perfusion imaging study shows normal myocardial perfusion. 2. Gated LVEF is 58% during rest; visually normal during stress. 3. Transient ischemic dilatation not present. EKG 01/14/25 Vent. Rate : 56 BPM Atrial Rate : 56 BPM P-R Int : 120 ms QRS Dur : 80 ms QT Int : 412 ms P-R-T Axes : 8 14 11 degrees QTcB Int : 397 ms Sinus bradycardia Otherwise normal ECG When compared with ECG of 13-Apr-2023 19:55, Previous ECG has undetermined rhythm, needs review Assessment and Plan Final Anesthetic Review Family History of Problems with Anesthesia: No History of Problems with Anesthesia: No Documented by User: Niurka Michaud DO 01/15/25 14:20 HPI - Anesthesia Eval Consult details Narrative: 54 yr old female (identifies as male) for upper endoscopy with balloon dilitation. Had previous dilations in the past. Went to the ED on 01/14/25 with nausea and vomiting after a barium swallow; subsequently discharged home with plans for EGD today. Currently denies any nausea or vomiting. Appropriately NPO. H/O NSTEMI in 2018: [place] [facility] [place], had neg cardiolite stress test 10/2024, echo updated 10/2024, see below [facility] Past Medical History Medical History Erosive esophagitis Abdominal pain Sleep difficulties Upper abdominal pain Vomiting LEE (dyspnea on exertion) Arthritis Occipital neuralgia of left side New onset headache Diverticulosis of colon Chronic, continuous use of opioids Chronic GERD Palpitations Hypotension History of palpitations Dysphagia Disc degeneration, lumbar Spondylosis of lumbar spine Depression Past heart attack Hyperlipemia Erosive osteoarthritis of hands, bilateral GERD (gastroesophageal reflux disease) Hypertension Family History Family History Mother Hypertension Breast cancer Maternal Grandmother Myocardial infarct Skin cancer Sister Heart problem Breast cancer Family/Other Esophageal cancer Family history of problems with anesthesia: No Surgical History Surgical History History of cholecystectomy Hx of colonoscopy History of esophagogastroduodenoscopy (EGD) H/O bilateral mastectomy H/O: hysterectomy History of Problems with Anesthesia: No Social History Social History Household Members: Family Housing: Apartment Are you a primary healthcare financial analyst to a significant other at home: No Do you presently have visiting nurse or other home services: No Alcohol intake: never Patient Tobacco Use Status: Former Tobacco user Use of substances other than those prescribed or required for medical reasons: No Substance Use Type: Marijuana Substance Use Frequency: Daily Have you been hit, kicked, punched, or otherwise hurt by someone within the past year? If so, by whom?: No Are you DNR?: No Advance Directives: No Advance Directives Information Provided: Yes Patient : No : No Poor oral hygiene: No service: No Meds Allergies Allergy/AdvReac Type Severity Reaction Status Date / Time black pepper Allergy Severe Anaphylaxis Verified 01/15/25 13:25 Penicillins (PENICILLINS) Allergy Intermediate HIVES,SWELL Verified 01/15/25 13:25 ING sumatriptan (SUMATRIPTAN) AdvReac Severe PT STATES Verified 01/15/25 13:25 HEART ATTACK Home Medications ?Medication ?Instructions ?Recorded ?Confirmed ?Last Taken ?Type cabotegravir 600 mg/3 mL (200 600 mg IM [id number] 05/26/24 01/12/25 1 Month Ago History mg/mL) IM suspension,extended ~11/28/24 release (Apretude) sucralfate 100 mg/mL oral 20 ml PO DAILY PRN ULCERS 12/07/24 01/12/25 Unknown History suspension cholecalciferol (vitamin D3) 1,250 1,250 mcg PO Q2W 12/29/24 01/12/25 2 Weeks Ago History mcg (50,000 unit) capsule ~12/15/24 Exam Exam Date and Time: 01/15/25 1400 Height,Weight and Vital Signs: Height 5 ft 5 in Weight 46.266 kg Vital Signs Temperature 97.8 F 01/15/25 13:41 Pulse Rate 62 01/15/25 13:41 Respiratory Rate 12 01/15/25 13:41 Blood Pressure 106/77 01/15/25 13:41 Pulse Oximetry 99 01/15/25 13:41 Oxygen Delivery Method Room Air 01/15/25 13:41 Temperature 97.8 F 01/15/25 13:41 Pulse Rate 62 01/15/25 13:41 Respiratory Rate 12 01/15/25 13:41 Blood Pressure 106/77 01/15/25 13:41 Pulse Oximetry 99 01/15/25 13:41 Oxygen Delivery Method Room Air 01/15/25 13:41 Airway Mallampati Class: II TM Dist: >3cm Neck ROM: Full Loose/Missing/Broken Teeth: No (patient denies any loose or broken teeth) Heart: S1S2 Lungs: CTAB Assessment and Plan Assessment Anesthesia Assessment: Anesthesia Plan Discussed and Chart Reviewed Final Anesthetic Review Family History of Problems with Anesthesia: No History of Problems with Anesthesia: No NPO: Yes ASA Class: II Final Preanesthetic Review: No Changes in Pt Med Stat, Meds/Allgs Chart Reviewed, Consent Obtained/Reviewed (analytical lab technician at bedside for translation) and Anes Risks/Benef Reviewed Patient Risk: Low Procedure Risk: Low Anesthetic Plan Anesthetic Plan: MAC: (discussed with patient about converting to GA with ETT if residual food seen in stomach; patient verbalized understanding of the plan) and Agree w/ Assess. and Plan Disposition: Standard PACU
--- NOTE | 2025-01-15 14:31 | MHC.SHP ---
Pre-Procedural Eval Section A - 24 Hr Update-Section A only Date of Service: 01/15/25 The patient is an INPATIENT: No Changes since office visit: Yes Patient answered all questions; No Cold of Flu in the past 2 weeks, No New Medical Problems and No Changes in Medication The patient has been examined within 24 hours of the surgical procedure. The History & Physical has been completed within 30 days and I have reviewed it.: Yes Section B - Complete if H&P > 30 days Chief Complaint: Dysphagia, abnormal barium swallow Allergies: Allergies Allergy/AdvReac Type Severity Reaction Status Date / Time black pepper Allergy Severe Anaphylaxis Verified 01/15/25 13:25 Penicillins (PENICILLINS) Allergy Intermediate HIVES,SWELL Verified 01/15/25 13:25 ING sumatriptan (SUMATRIPTAN) AdvReac Severe PT STATES Verified 01/15/25 13:25 HEART ATTACK Plan Diagnosis/Plan: Change (proceed with EGD and dilation) I have reviewed the history and physical and performed a pertinent physical examination on my patient. No changes have occurred unless specified. Time Spent With Patient Time: Total time managing care of this patient today ____ minutes.
[2025-01-15 15:39] VITALS: BP 81/48; PULSE 70; RESP 20; TEMP 36.2; O2SAT 97
--- NOTE | 2025-01-15 15:39 | P.OP_ITS ---
Operative Note Operative Note Date of Service: 01/15/25 Narrative: FLEXIBLE TRANSORAL UPPER ESOPHAGOSCOPY WITH BIOPSIES AND ESOPHAGEAL BALLOON DILATION Pre-op diagnosis: Dysphagia, abdominal barium swallow Post-op diagnosis: GERD, Gastritis, Endoscopist:? Mary Alice Mayorga MD Anesthesia:?MAC UPPER ENDOSCOPY Consent: Indications for the procedure and potential complications of bleeding, perforation, reaction to medications and missed diagnosis were discussed with the patient and informed consent was obtained. Instrument: Olympus GIF H 190 mid size upper endoscope Monitoring: Vital signs and clinical assessment, continuous EKG monitoring, Pulse oximetry, Carbon Dioxide monitoring and blood pressure monitoring were done throughout the procedure. Procedure: The patient was placed in the left lateral decubitis position and pre-procedure medications were administered and a bite block was placed. The endoscope was inserted into the mouth and advanced under direct vision to the third part of duodenum. A careful inspection was made as the upper endoscope was withdrawn including a retroflexed examination of the proximal stomach; Findings and interventions are described below. Findings: Larynx: Normal Esophagus: GE junction at 38 cms. Mildly tortuous esophagus with decreased peristalsis No obvious stricture noted and endoscope was passed into the stomach with minimal resistance Balloon dilation was performed with 16.5 mm Stomach: Contained a large amount of undigested food and was not examined. Duodenum: Not examined Intervention: Biopsies as noted above Impression and Post Procedure Diagnosis: Endoscopy Findings: ESOPHAGUS: Mildly tortuous esophagus with decreased peristalsis No obvious stricture noted and endoscope was passed into the stomach with minimal resistance Balloon dilation was performed with 16.5 mm (49.5 F) STOMACH: Not examined due to large amount of undigested food DUODENUM: Not examined Plan: Pt advised a liquid diet tonight and advance to a soft diet in the am Pt has a FU appointment on 01/28/25 with Aida Orozco NP. Recommend further evaluation with esophageal manometry to rule out achalasia. (Of note - pt had two EGDs at [facility] [place] for evaluation of dysphagia and no stricture was seen) Above findings were reviewed with the patient and relevant handouts were given and the discharge area. BIOPSIES SHOWED: A. Esophagus, distal, biopsy: Squamous mucosa within normal limits; negative for inflammation (including intraepithelial eosinophils), fungal organisms, intestinal metaplasia and dysplasia. B. Esophagus, proximal, biopsy: Squamous mucosa within normal limits; negative for inflammation (including intraepithelial eosinophils), fungal organisms, intestinal metaplasia and dysplasia.
[2025-01-15 15:54] VITALS: BP 102/61; PULSE 67; RESP 20; O2SAT 99
[2025-01-15 16:09] VITALS: BP 106/76; PULSE 69; RESP 20; TEMP 36.9; O2SAT 97
== END 2025-01-15 16:29 | disposition home or self-care (01) ==
PROVIDERS: PCP Family Medicine; Visit Provider Internal Medicine Gastroenterology
PROC: (CPT 43249; principal; 2025-01-15 15:50)
DX: R13.10 Dysphagia, unspecified (principal); R19.2 Visible peristalsis; K29.50 Unspecified chronic gastritis without bleeding; K21.9 Gastro-esophageal reflux disease without esophagitis; I10 Essential (primary) hypertension; E78.5 Hyperlipidemia, unspecified; I25.2 Old myocardial infarction; K20.80 Other esophagitis without bleeding; M54.81 Occipital neuralgia; F11.20 Opioid dependence, uncomplicated; Z88.0 Allergy status to penicillin; Z88.8 Allergy status to other drugs, medicaments and biological substances; Z87.891 Personal history of nicotine dependence; Z79.899 Other long term (current) drug therapy
CPT/HCPCS: 43249; 43239; 88305; 88313; C1726; J2003; J2704

== ENCOUNTER → 2025-01-15 13:16 | Outpatient (BNV) | payer OTHER, SELFPAY | PROVIDERS: PCP Family Medicine; Visit Provider Internal Medicine Gastroenterology | DX: R13.10 Dysphagia, unspecified (principal); K21.9 Gastro-esophageal reflux disease without esophagitis; K29.70 Gastritis, unspecified, without bleeding | CPT/HCPCS: 43239; 43249 ==

== ENCOUNTER 2025-01-19 10:31 | Outpatient (REF) | payer OTHER, SELFPAY ==
--- NOTE | ~2025-01-19 | MR_ITS ---
CLINICAL HISTORY: K85.90 - Acute pancreatitis without necrosis or infection, unspecified Exam: MRCP without IV contrast, MRI abdomen without and with IV contrast Comparison: CT/SR - CT ABDOMEN PELVIS WITH IV CONTRAST - 12/29/24 12:55 EDT Findings: Hypoenhancing predominantly solid mass 2.5 x 2.1 x 2.7 cm (TRX AP X cc) of pancreatic head/uncinate process dorsally, series 5, image 26, hypointense on T1, mildly hyperintense relative to remainder pancreatic parenchyma on T2, postcontrast images demonstrates delayed hypoenhancement, slightly elongated cystic foci 2 mm and 5 mm within the mass, it is compressing on the distal CBD and causing moderate to severe stenosis about 1.5 cm above duodenal insertion, the upstream extrahepatic and intrahepatic ducts are mildly dilated, cystic duct remnant is also dilated. MPD is not dilated. The mass is also mildly compressing on the IVC, close to SMV with preserved tissue plane, no apparent involvement of SMA, celiac or SMV. Status post cholecystectomy. Liver is normal in size, no steatosis. 6 mm T2 bright lesion of the right hepatic dome segment 8, hypointense on T1 with early peripheral discontinuous nodular enhancement and gradual centripetal contrast filling, consistent with hemangioma, adjacent segment 8 3 mm nonenhancing cystic focus. Patent hepatic and portal veins. Spleen, adrenal glands, kidneys are unremarkable. Diverticulosis of the colon, negative for acute diverticulitis, remaining GI tract is unremarkable. Unremarkable vasculature. No bulky lymph nodes. No ascites. Unremarkable lung bases. No acute osseous abnormality or suspicious osseous lesion. Impression: 1. Pancreatic mass of dorsal head/uncinate process is compressing on distal CBD and causing moderate to severe stenosis, mild upstream intrahepatic and extrahepatic bile duct dilatation, concerning for malignancy. Recommend bog worker consultation, ERCP and tissue sampling. 2. Subcentimeter right hepatic hemangioma and cyst. 3. Diverticulosis coli. This document has been electronically signed by: Yumiko Jones MD on 01/20/2025 16:03:51
--- OUTSIDE RECORDS SUMMARY | 2025-01-19 12:22 | XMS_ITS | Encounter Summary ---
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) Social [...] AM EDT Clinical Support [facility] [address] [place] [address] Medina Lewis RN [address] [place] [address] 03/03/2025 9:30 AM EDT Office Visit [facility] [address] [place] [address] Emilie Davis MD [address] [place] [address] 06/04/2025 3:00 PM EST Office Visit [facility] [address] [place] [address] Merissa Donis, OD [address] [place] [address] documented as of this encounter Visit Diagnoses Diagnosis Gender 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- Primary documented in this encounter Additional Health Concerns Assessment Noted Time PHQ-9 Depression Total Score: 3 04/30/20 23 9:17 AM EST documented as of this encounter Care Teams Computer Network And Systems Engineer Relationship Specialty Start Date End Date Emilie Davis MD [address] [place] [address] PCP - General Family Medicine 05/13/18 Morales Echavarria FNP [address] [place] [address] Nurse Practitioner Family Medicine 04/16/23 Aida Orozco [address] [place] [address] Gastroenterology 05/26/24 Fred Castanon [address] [place] [address] 07/21/24 documented as of this encounter
--- OUTSIDE RECORDS SUMMARY | 2025-01-19 12:22 | XMS_ITS | Encounter Summary ---
Author Organization [employer] Address [address] [facility] 7t [place] [address] Care Team Providers Care Zanjero Name Role Phone Emilie Davis MD Primary Care Provider +1- [phone] Morales Echavarria [employer]GE[employer] OF [employer]ERS Unavailable Unavailable August Unavailable Fred Castanon Unavailable Encounter Details Date Type Department Care Team (Late st Contact Info) Description 04/22/2022 Orders Only [facility] [address] [place], [place] [phone] Emilie Davis MD [address] [place], [place] [phone] HSV (herpes simplex virus) anogenital infection (Primary [...] Description 01/22/2025 9:00 AM EDT Clinical Support [address] [phone] Medina Lewis, RONALD [address] [place] [address] 03/03/2025 9:30 AM EDT Office Visit [address] [address] Emilie Davis MD [address] [place] [address] 06/04/2025 3:00 PM EST Office Visit [facility] [address] [place] [address] Gagandeep, Merissa, OD [address] [place] [address] documented as of this encounter Visit Diagnoses Diagnosis HSV (herpes simplex virus) anogenital infection- Primary Herpes simplex without mention of complication documented in this encounter Care Teams Zanjero Relationship Specialty Start Date End Date Emilie Davis MD [address] [place] [address] PCP - General Family Medicine 05/13/18 Morales Echavarria FNP [address] [place] [address] Nurse Practitioner Family Medicine 04/16/23August [address] [place] [address] Gastroenterology 05/26/24 Fred Castanon [address] [place] [address] 07/21/24 documented as of this encounter
--- OUTSIDE RECORDS SUMMARY | 2025-01-19 12:22 | XMS_ITS | Encounter Summary ---
Author Organization [employer] Address [address] [place] [address] Care Team Providers Care Food And Beverage Checker Name Role Phone Emilie Davis MD Primary Care Provider +1- [phone] Morales Echavarria SENIOR RELATIONSHIP MANAGER Unavailable Unavailable August Unavailable Fred Castanon Unavailable Reason for Visit * Reason Onset Date Comments Referral 07/20/2024 Encounter Details Date Type Department Care Team (Late st Contact Info) Description 07/20/2024 Telephone [facility] MEDICINE [address] [place] [address] Emilie Davis MD [address] [place] [address] Referral Social History Tobacco Use Types Packs/Day [...] Industry Job Start Date Job End Date [employer] Not on file Not on file Not on file documented as of this encounter Miscellaneous Notes * Telephone Encounter - Kishore Pichardo - 07/20/2024 11:03 AM EDT Tc from pt requesting a Apt for Rheumatology due to Hip Pain on the Pts left side. Contact pt at [phone] documented in this encounter Plan of Treatment Upcoming Encounters Date Type Department Care Team (Late st Contact Info) Description 01/22/2025 9:00 AM EDT Clinical Support [facility] MEDICINE [address] [place] [phone] Medina Lewis RN [address] [place] [phone] 03/03/2025 9:30 AM EDT Office Visit [facility] MEDICINE [address] [place] [phone] Emilie Davis MD [address] [place] [phone] 06/04/2025 3:00 PM EST Office Visit [facility] OPTOMETRY [address] [place] [address] Merissa Donis, GINA [address] [place] [address] documented as of this encounter Visit Diagnoses Not on filedocumented in this encounter Additional Health Concerns Assessment Noted Time PHQ-9 Depression Total Score: 3 04/30/20 9:17 AM EST documented as of this encounter Care Teams Food And Beverage Checker Relationship Specialty Start Date End Date Emilie Davis MD [address] [place] [address] PCP - General Family Medicine 05/13/18 Morales Echavarria FNP [address] [place] [address] Nurse Practitioner Family Medicine 04/16/23 Aida Orozco [address] [address] Gastroenterology 05/26/24 Fred Castanon [address] [place] [phone] 07/21/24 documented as of this encounter
--- OUTSIDE RECORDS SUMMARY | 2025-01-19 12:22 | XMS_ITS | Encounter Summary ---
Author Organization [employer] [facility] Address [address] [facility] [address] [place] [address] Care Team Providers Care Managed Security Sales Consultant Name Role Phone Emilie Davis MD Primary Care Provider +1- [phone] Morales Echavarria Unavailable Unavailable August Unavailable Fred Castanon Unavailable Encounter Details Date Type Department Care Team (Late st Contact Info) Description 05/27/2022 Abstract [facility] MEDICINE [address] [place] [address] [phone] Emilie Davis MD [address] [place] [address] [phone] Social History Tobacco Use Types Packs/Day Years [...] 9:00 AM EDT Clinical Support [facility] MEDICINE [address] [place] [address] [phone] Medina Lewis, RONALD [address] [place] [phone] 03/03/2025 9:30 AM EDT Office Visit [facility] MEDICINE [address] [place] [address] [phone] Emilie Davis MD [address] [place] [address], [place] [address] 06/04/2025 3:00 PM EST Office Visit [facility] OPTOMETRY [address] [place] [address] Merissa Donis, OD [address] [place] [address] documented as of this encounter Procedures Procedure [...] ORDERABLES F inal Result Performing Organization Address City/[facility]/ZIP Co de Phone Number [facility] [address] [place] [address] [phone] documented in this encounter Visit Diagnoses Not on filedocumented in this encounter Care Teams Managed Security Sales Consultant Relationship Specialty Start Date End Date Emilie Davis MD [address] [place] [phone] PCP - General Family Medicine 05/13/18 Morales Echavarria FNP [address] [place] [phone] Nurse Practitioner Family Medicine 04/16/23 Aida Orozco [address] [place] [address] [place] [address] Gastroenterology 05/26/24 Fred Castanon [address] [place] [address] [address] [place] [address] 07/21/24 documented as of this encounter
--- OUTSIDE RECORDS SUMMARY | 2025-01-19 12:22 | XMS_ITS | Encounter Summary ---
Author Organization [facility] Address [address] [facility] [address] [place] [address] Care Team Providers Care Plastic Welder Name Role Phone Emilie Davis MD Primary Care Provider +1- [phone] Morales Echavarria Unavailable Unavailable August Unavailable Fred Castanon Unavailable Encounter Details Date Type Department Care Team (Late st Contact Info) Description 11/28/2022 Abstract [facility] MEDICINE [address] [place] [phone] Emilie Davis MD [address] [place] [address] Social History Tobacco Use Types Packs/Day Years [...] 9:00 AM EDT Clinical Support [facility] MEDICINE [address] [place] [address] Medina Lewis RN [address] [place] [address] 03/03/2025 9:30 AM EDT Office Visit [facility] MEDICINE [address] [place] [address] Emilie Davis MD [address] [place] [address] 06/04/2025 3:00 PM EST Office Visit [facility] OPTOMETRY [address] [place] [address] Gagandeep, Merissa, OD [address] [place] [address] documented as of this encounter Visit Diagnoses Not on filedocumented in this encounter Additional Health Concerns Assessment Noted Time PHQ-9 Depression Total Score: 19 023 9:24 AM EDT documented as of this encounter Care Teams Plastic Welder Relationship Specialty Start Date End Date Emilie Davis MD [address] [place] [phone] PCP - General Family Medicine 05/13/18 Morales Echavarria FNP [address] [place] [address] Nurse Practitioner Family Medicine 04/16/23 Aida Orozco [address] [place] [address] Gastroenterology 05/26/24 Fred Castanon [address] [place] [phone] 07/21/24 documented as of this encounter
--- OUTSIDE RECORDS SUMMARY | 2025-01-19 12:22 | XMS_ITS | Clinical Summary ---
Author Organization [employer] Address [address] [place] [address] Care Team Providers Care Rehabilitation Engineer Name Role Phone Emilie Davis MD Primary Care Provider [phone] Morales Echavarria Unavailable Unavailable August Unavailable Fred Castanon Unavailable Allergies Active Allergy Reactions Criticality Noted Date Comments Penicillins Anaphylaxis,Rash High 05/16/2017 Sumatriptan 10/28/2018 Medications * This document contains information received from the source organization and may not represent a complete record from that organization. Needle, Disp, (BD Disp [place]) 25G X 5/8 miscIndication s:Gender dysphoria in [...] Active cholecalcifero l (Vitamin D-3) 1.25 MG (87498 UT) capsule Take 1 capsule by mouth [...] or necrosis 12/31/2024 Overview (12/31/2024): -dx at [facility] 12/2024 Patient admitted to general medical [...] XR 05/20/24 Coronary artery disease invo lving sauk-suiattle heart without angina pectoris 05/20/2024 Overview (10/15/2024): Hx NSTE OR 09/2017 -continue oscar -Stress test without evidence [...] RPRQUANT Non-Reactive 03/18/2024 -will call [facility] regarding need for testing 03/23/24 -pt allergic [...] care facilitated by Alessio. -dental home is [facility] -health care proxy filed 03/16/24 Assessment & Plan (03/17/2024 6:12 AM EST): -next physical exam due after 03/16/2025 -eye care facilitated by Alessio. -dental home is [facility] -health care proxy filed 03/16/24 Assessment & Plan (03/22/2023 9:17 AM EST): -next physical exam due after 12/07/2023. -eye care facilitated by Alessio. -dental home is outside of [facility] Assessment & Plan (12/06/2022 10:19 AM EDT): -next physical exam dueafter 12/07/2023. -eye care facilitated by Alessio. -dental home is outside of [facility] Hx of hepatitis C 11/26/2022 [...] He was referred back to rheumatology in [place] 08/23/2020 but provider left the area. started on Tramadol. Take 3 times per week. He is not taking at this time. Assessment & Plan (03/17/2024 6:08 AM EST): X rays suggests osteoarthritis. Seen by rheumatology in [place]. Ibuprofen and NSAIDs cause gastritis. Minimal relief with acetaminophen. He was referred back to rheumatology in [place] 08/23/2020 but provider left the area. started on Tramadol. Take 3 times per week. He is not taking at this time. Assessment & Plan (03/22/2023 9:15 AM EST): X rays suggests osteoarthritis. Seen by rheumatology in [place]. Ibuprofen and NSAIDs cause gastritis. Minimal relief with acetaminophen. He was referred back to rheumatology in [place] 08/23/2020 but provider left the area. started on Tramadol. Take 3 times per week. Will need COT in the future. Assessment & Plan (12/06/2022 8:54 AM EDT): X rays suggests osteoarthritis. Seen by rheumatology in [place]. Ibuprofen and NSAIDs cause gastritis. Minimal relief with acetaminophen. He was referred back to rheumatology in [place] 08/23/2020 but provider left the area. started on Tramadol. Take 3 times per week. Will need COT in the future. Assessment & Plan (10/11/2022 9:58 AM EDT): X rays suggests osteoarthritis. Seen by rheumatology in [place]. Ibuprofen and NSAIDs cause gastritis. Minimal relief with acetaminophen. He was referred back to rheumatology in [place] 08/23/2020 but provider left the area. started [...] Now with palpitations. Will refer to his [facility] ascp consultant for bradycardia. Assessment & Plan (03/22/2023 9:16 AM EST): Sinus bradycardia and asymptomatic. Pt states he always has slow heart rate Pt repots heart rate in 40s recorded with home BP monitor with symptoms of dizziness recorded at home. Now with palpitations. Will refer to his [facility] ascp consultant for bradycardia. Assessment & Plan (12/06/2022 8:54 AM EDT): Sinus bradycardia and asymptomatic. Pt states he always has slow heart rate Pt repots heart rate in 40s recorded with home BP monitor with symptoms of dizziness recorded at home. Now with palpitations. Will refer to his [facility] ascp consultant for bradycardia. Assessment & Plan (10/11/2022 9:58 AM EDT): Sinus bradycardia and asymptomatic. Pt states he always has slow heart rate Pt repots heart rate in 40s recorded with home BP monitor with symptoms of dizziness recorded at home. Now with palpitations. Will refer to his [facility] ascp consultant for bradycardia. Generalized abdominal pain 06/25/2021 Overview [...] for GI. Insurance no longer accepted at [facility]. -EGD scheduled for December 2021. -10/19/24 [...] for GI. Insurance no longer accepted at [facility]. -EGD scheduled for December 2021. Assessment [...] for GI. Insurance no longer accepted at [facility]. -EGD scheduled for December 2021. Assessment [...] for GI. Insurance no longer accepted at [facility]. -EGD scheduled for December 2021. Assessment [...] for GI. Insurance no longer accepted at [facility]. -EGD scheduled for December 2021. History of non-ST elevation myocardial infarctio n (NSTEMI) 06/25/2021 Overview (10/15/2024): Hx NSTE OR 09/2017. See CAD for plan. Assessment & Plan (05/20/2024 4:29 PM EST): Hx NSTE OR 09/2017 -continue oscar -Stress test without evidence of ischemia 04/08/18 -he held statin and ASA due to GI upset -trial of restarting statin 01/[address] on 05/08/24 showed Coronary artery atherosclerosis. Pt wants to get reestablished with cardiology. -referral sent 05/20/24 Assessment & Plan (03/22/2023 9:17 AM EST): Hx NSTE OR 09/2017 -continue oscar -Stress test without evidence of ischemia 04/08/18 -he held statin and ASA due to GI upset -trial of restarting statin 01/2019 Assessment & Plan (12/06/2022 8:55 AM EDT): Hx NSTE OR 09/2017 -continue oscar -Stress test without evidence of ischemia 04/08/18 -he held statin and ASA due to GI upset -trial of restarting statin 01/2019 Assessment & Plan (10/11/2022 9:57 AM EDT): Hx NSTE OR 09/2017 -continue oscar -Stress test without evidence [...] lung 10/04/2017 Overview (05/20/2024): -Ct scan in [place] ER on 12/25/2017 showed multiple indeterminate nodules, [...] 11/15/23 and NO SHOW. Pt can call [phone] to schedule mariely. number given to call 03/16/24 -CT 05/08/24 No acute intrathoracic findings. Calcified granulomas present bilaterally. No suspicious pulmonary nodule identified. Air-fluid level present within the midthoracic esophagus can be associated with gastroesophageal reflux disease and esophageal dysmotility. Coronary artery atherosclerosis. Assessment & Plan (05/20/2024 4:05 PM EST): -Ct scan in [place] ER on 12/25/2017 showed multiple indeterminate nodules, [...] 11/15/23 and NO SHOW. Pt can call [phone] to schedule mariely. number given to call 03/16/24 -CT 05/08/24 No acute intrathoracic findings. Calcified granulomas present bilaterally. No suspicious pulmonary nodule identified. Air-fluid level present within the midthoracic esophagus can be associated with gastroesophageal reflux disease and esophageal dysmotility. Coronary artery atherosclerosis. Assessment & Plan (03/17/2024 6:13 AM EST): -Ct scan in [place] ER on 12/25/2017 showed multiple indeterminate nodules, [...] 11/15/23 and NO SHOW. Pt can call [phone] to schedule mariely. number given to call 03/16/24 Assessment & Plan (03/22/2023 9:16 AM EST): -Ct scan in [place] ER on 12/25/2017 showed multiple indeterminate nodules, largest was solid and measured 2mm. -Given that the Pt has a tobacco Hx and quit in 2018 we referrred to pulmonology that was likely distrupted by the pandemic. -Will ordered repeat CT of chest to follow the nodles. Assessment & Plan (12/06/2022 10:18 AM EDT): -Ct scan in [place] ER on 12/25/2017 showed multiple indeterminate nodules, [...] for OP services and referral to [facility] Psychopharmacology clinic. Provided Crisis contact [...] engagement. PLAN: 1. Follow up with [facility]: Not recommended for follow-up 2. Patient goal is to learn coping mechanisms to manage sxs. 3. Behavioral Recommendations a. Ind. Therapy and Medication Management b. Continue using coping skills c. [facility] support as needed. Mild major depression 06/25/20212023 Encounters Date Type Department Care Team Description 01/15/2025 Orders Only GENERIC EXTERNAL DATA DEPARTMENT Provider, Generic External Data 01/14/2025 Orders Only [facility] External Provider, [facility] Generalized abdominal pain (Primary Dx) 01/08/2025 Orders Only GENERIC EXTERNAL DATA DEPARTMENT Provider, Generic External Data 01/07/[address] [address] Emilie Davis MD Call Back Request; Injectable PrEP Communication 01/04/2025 Patient Outreach [address] [address] Emilie Davis MD Transition Of Care (Tcm) (HDF unscheduled) 01/04/[address] [address] Emilie Davis MD Nurse Triage 01/04/[address] [address] Emilie Davis MD Hospital Follow-up; No Show (Pt no show for hdf ) 12/29/2024 Orders Only GENERIC EXTERNAL DATA DEPARTMENT Provider, Generic External Data 11/26/2024 9:30 AM EDT Clinical Support [facility] [place] [address] Medina Lewis, RN On pre-exposure prophylaxis for HIV (Primary Dx) 11/26/2024 Orders Only [address] [address] Emilie Davis MD 11/26/2024 Travel 11/26/[address] [address] Emilie Davis MD Appointment Request 11/25/[address] [address] Emilie Davis MD February11/16/[address] [address] Medina Lewis, RONALD 10/20/2024 Orders Only [facility] External Provider, [facility] Generalized abdominal pain (Primary Dx) from [...] your housing situation today? I have brenda cely 03/16/[address] you li [...] Industry Job Start Date Job End Date [employer] Not on file Not on file [...] Description 01/22/2025 9:00 AM EDT Clinical Support [facility] MEDICINE [address] [place] [address] Medina Lewis, RONALD [address] [place] [address] 03/03/2025 9:30 AM EDT Office Visit [facility] MEDICINE [address] [place] [address] Emilie Davis MD [address] [place] [address] 06/04/2025 3:00 PM EST Office Visit [facility] OPTOMETRY [address] [place] [address] Merissa Donis, OD [address] [place] [address] Health Maintenance Due Date Last Done Comments [...] Procedure Name Priority Date/Time Associated Diagnosis Comments HEMATOXYLIN AND EOSIN STAIN Routine 01/15/2025 3:32 PM EDT COMPREHENSIVE METABOLIC PANEL Routine 01/14/2025 3:40 PM [...] Recently Relevant to Health Maintenance Results * Hematoxylin and Eosin Stain (01/15/2025 3:32 PM EDT) 01/15/2025 3:32 PM EDT 01/18/2025 7:08 AM EDT [facility] - 01/19/2025 12:19 PM EDT ----- ------- Name: Harriet Valdez Age/Sex: 54/F : 1970 [facility]#: [id number] Unit#: [id number] Attend Dr: Mary Alice Mayorga MD Re01/15/25 Status: [facility] Location: [facility] Disch: ----- ------- SPEC : [id number] RECD: 01/18/25-707 STATUS: JANIE DUNLAP NUM: [id number] AMBREEN: 01/15/25-[address] [facility] [address]: Mary Alice Mayorga MD ENTERED: 01/18/25-729 SP TYPE: Surgical OTHR DR: Emilie Davis MD ORDERED: HE Stain/6, Gross Micro L4/2, Special st. 2/2, AB/PAS/2 Diagnosis A. Esophagus, distal, biopsy: Squamous mucosa within normal limits; negative for inflammation (including intraepithelial eosinophils), fungal organisms, intestinal metaplasia and dysplasia. B. Esophagus, proximal, biopsy: Squamous mucosa within normal limits; negative for inflammation (including intraepithelial eosinophils), fungal organisms, intestinal metaplasia and dysplasia. Clinical History Dysphagia Microscopic Description A-B. Microscopic sections reviewed. The special stain for AB/PAS is negative for fungal organisms. Material Received A. Distal esophagus bx's B. Proximal esophagus bx's Gross Description Received in two parts. Part A: Received in formalin labeled distal esophagus bx's insert (sic) is a 0.35 cm bhakta-white thin and delicate rectangular tissue fragment, submitted in toto in a cassette labeled A. Part B: Received in formalin labeled proximal esophagus bx's (sic) is a 0.3 cm bhakta-white thin and delicate rectangular tissue fragment, submitted in toto in a cassette labeled B. CEDS Special stains ordered and performed: AB/PAS on A-B. IHC S/NG Disclaimer NOTE: Unless otherwise stated, all tissue is formalin-fixed and paraffin-embedded. Some or all of the immunohistochemical tests reported herein may have been developed and their performance characteristics determined by [facility]. They have not been cleared or approved by the U.S. Food and Drug Administration (FDA). However, the FDA CONTINUED ON NEXT PAGE ----- ------- Name: Trace RobersonHarriet Age/Sex: 54/F : 1970 Unit#: [id number] Attend Dr: Mary Alice Mayorga MD Re01/15/25 Status: [facility] Location: [facility] Disch: ----- ------- SPEC : [id number] RECD: 01/18/25 STATUS: JANIE DUNLAP NUM: [id number] AMBREEN: 01/15/251532 [facility] DR: Mary Alice Mayorga MD ENTERED: 01/18/25 SP TYPE: Surgical OTHR DR: Emilie Davis MD ORDERED: HE Stain/6, Gross Micro L4/2, Special st. 2/2, AB/PAS/2 IHC S/NG Disclaimer (Continued) has determined that such clearance or approval is not necessary. This laboratory is certified under the Clinical Laboratory Improvement Amendments of 1988 (CLIA) as qualified to perform high complexity clinical laboratory testing. Copies To: Emilie Davis MD [facility] [address] [place] [address] Mary Alice Mayorga MD [facility] [place] [facility] [address] [place] [address] ----- ------- Signed (signature on file) Yara Dodson MD 01/19/25 1219 ----- ------- END OF REPORT us Generic External Data Provider LAB BLOOD ORDERAB LES Final Result [facility] [address] [place] [address] [phone] * (ABNORMAL) CBC auto differential (01/14/2025 3:40 PM EDT) Only the most recent of2 resultswithin the time period is included. White Blood Count 9.0 4.8 - 10.8 X10*3/uL [facility] Red Blood Count 4.50 4.20 - 5.50 X10*6/uL [facility] Hemoglobin 13.3 12.0 - 16.0 g/dl [facility] Hematocrit 39.1 37.0 - 47.0 % [facility] Mean Corpuscular Volume 86.9 80.0 - 98.0 fL [facility] Mean Corpuscular Hemoglobin 29.6 27.0 - 33.0 pg [facility] Mean Corpuscular HGB Conc 34.0 31.0 - 35.0 g/dl [facility] Red Cell Distribution Width 13.8 11.0 - 16.0 % [facility] Platelet Count 312 160 - 400 X10*3/uL [facility] Mean Platelet Volume 8.9(L) 9.4 - 12.3 fL [facility] Neutrophils Percent Auto 57.2 45 - 73 % [facility] Imm Gran Pct Auto 0.2 0.0 - 0.4 % [facility] Lymphocytes Percent Auto 34.6 20 - 40 % [facility] Monocytes Percent Auto 6.5 2 - 11 % [facility] Eosinophils Percent Auto 1.1 0 - 4 % [facility] Basophils Percent Auto 0.4 0 - 2 % [facility] NRBC Pct Auto 0.0 0.0 - 0.2 /100WBC [facility] Neutrophils Absolute Auto 5.1 2.0 - 8.3 x10*3/uL [facility] Imm Gran Abs Auto 0.02 0.00 - 0.03 X10*3/uL [facility] Lymphocytes Absolute Auto 3.1 1.2 - 4.9 X10*3/uL [facility] Monocytes Absolute Auto 0.6 0.1 - 1.2 X10*3/uL [facility] Eosinophils Absolute Auto 0.1 0.0 - 0.4 X10*3/uL [facility] Basophils Absolute Auto 0.0 0.0 - 0.2 X10*3/uL [facility] NRBC Abs Auto 0.000 0.0 - 0.012 X10*3/uL [facility] 01/14/2025 3:40 PM EDT 01/14/2025 3:52 PM EDT us Generic External Data Provider LAB BLOOD ORDERAB LES Final Result [facility] [address] [place] [address] [phone] * Prothrombin Time-INR (01/14/2025 3:40 PM EDT) Pathologist [facility] Prothrombin Time 11.7 10.9 - 12.4 SEC [facility] INTERNATIONAL NORM RATIO 1.0 0.9 - 1.1 [facility] Comment:INTERNATIONAL NORMAL IZED RATIO (INR) [...] Provider LAB BLOOD ORDERAB LES Final Result [facility] [address] [place] [address] [phone] * (ABNORMAL) Comprehensive Metabolic Panel (01/14/2025 3:40 PM EDT) [facility] Sodium 139 135 - 145 mmol/L [facility] Potassium 4.2 3.3 - 5.1 mmol/L [facility] Comment:Slight Hemolysis.Int erpret result with caution. Chloride 105 96 - 108 mmol/L [facility] Carbon Dioxide 27 22 - 29 mmol/L [facility] Anion Gap 11(L) 12 - 20 [facility] Urea Nitrogen (BUN) 12 9 - 16 mg/dL [facility] Creatinine, Serum 0.79 0.5 - 1.4 mg/dL [facility] Creatinine Clr Calc Pharmacy 72.3 [facility] Comment:Provided height and weight: 165.1 cm,57.9 kg.eGFR (calculated from the MDRD study equation) and eCrCl(calculated from the Cockcroft-Gault equation) are based ondifferent parameters and may not yield comparable results.If eCrCl result is absurd, please check patient'sheight/weight. Estimated Glomerular Filt Rate >60 [facility] Comment:Chronic Kidney Disea se: Estimated GFR < 60 mL/min/1.31w4Hmbebm Kidney Disease: Estimated GFR < 15 mL/min/1.73m2 Glucose 80 60 - 115 mg/dL [facility] Calcium 9.1 8.4 - 10.2 mg/dL [facility] Bilirubin, Total 0.3 0.0 - 1.0 mg/dL [facility] Aspartate Amino Transferase 26 5 - 31 U/L [facility] Comment:Slight Hemolysis.Int erpret result with caution. Alanine Aminotransferase 17 0 - 31 U/L [facility] Total Protein 7.2 6.5 - 8.0 g/dL [facility] Albumin Level 4.2 3.5 - 5.0 g/dL [facility] Alkaline Phosphatase 73 39 - 117 U/L [facility] 01/14/2025 3:40 PM EDT 01/14/2025 3:52 PM EDT us Generic External Data Provider LAB BLOOD ORDERAB LES Final Result [facility] [address] [place] [address] [phone] * FL Esophagus Barium Swallow (01/14/2025 9:40 AM EDT) Anatomical Region Laterality Modality Head, Neck Radiographic Aurora ging 01/14/2025 9:40 AM EDT Narrative 01/14/2025 11:23 AM EDT [address] [address] Fluoroscopy Report Signed Patient: Harriet Valdez MR#: [id number] : 1970 Acct:[id number] Age/Sex: 54 / F ADM Date: 01/14/25 Loc: [facility] Attending Dr: Aida Orozco ANP-C Ordering Physician: Aida Orozco Date of Service: 01/14/25 Procedure(s): FL barium swallow Accession Number(s): [id number] cc: Emilie Davis MD; Aida Orozco Reason [...] 01/14/25 1120 DD/ 0940 TD/TT: 01/14/25 0955 Pattern Painter: [facility] [place] Procedure Note Donotuseinterpreter, Image - 01/14/[address] [address] Fluoroscopy Report Signed Patient: Harriet ValdezMR#: [id number] : 1970Acct:[id number] Age/Sex: 54 / FADM Date: 01/14/25 Loc: [facility] Attending Dr: Aida ASH Ordering Physician: Aida Orozco Date of Service: 01/14/25 Procedure(s): FL barium swallow Accession Number(s): [id number] cc: Emilie Daivs MD; Aida Orozco Reason for Exam: R11.10 [...] 01/14/25 1120 DD/ 0940 TD/TT: 01/14/25 0955 Pattern Painter: MADINA [facility] External Provider IMG FLU OROSCOPY PROCEDURES Final Result * XR Abdomen 2 View minimum (01/08/2025 10:50 AM EDT) Anatomical Region Laterality Modality Abdomen Radiographic Aurora ging 01/08/2025 10:5 0 AM EDT Narrative 01/08/2025 12:26 PM EDT [address] [address] XRay Report Signed Patient: Harriet Valdez MR#: [id number] : 1970 Acct:[id number] Age/Sex: 54 / F ADM Date: 01/08/25 Loc: HO.XRAY Attending Dr: Aida ASH Ordering Physician: Aida Orozco Date of Service: 01/08/25 Procedure(s): XR abdomen min 2V Accession Number(s): [id number] cc: Emilie Davis MD; Aida Orozco EXAMINATION: [...] 01/08/25 1223 DD/ 1050 TD/TT: 01/08/25 1057 Pattern Painter: Procedure Note Donotuseinterpreter, Image - 01/08/[address] [address] XRay Report Signed Patient: Harriet ValdezMR#: [id number] : 1970Acct:[id number] Age/Sex: 54 / FADM Date: 01/08/25 Loc: HO.XRAY Attending Dr: Aida ASH Ordering Physician: Aida Orozco Date of Service: 01/08/25 Procedure(s): XR abdomen min 2V Accession Number(s): [id number] cc: Emilie Davis MD; Orozco ANP-C EXAMINATION: XR ABDOMEN 2 VIEWS SUPINE ERECT [...] 01/08/25 1223 DD/ 1050 TD/TT: 01/08/25 1057 Pattern Painter: [facility] External Provider IMG XR PROCEDURES Edited Result - Final * (ABNORMAL) VITAMIN D 25-OH (D2 AND D3) (01/08/2025 10:47 AM EDT) Vitamin D, 25-OH, D2 <4 ng/mL [facility] Comment:This test was develo ped and its analytical performancecharacteristics have been determined by [employer] [place], [place]. It hasnot been cleared or approved by the U.S. Food and DrugAdministration. This assay has been validated pursuantto the CLIA regulations and is used for clinicalpurposes.THIS TEST WAS PERFORMED AT:[employer] [id number] [place] [id number] ESTEVEZ MD,PHD Vitamin D, 25-OH, D3 28 ng/mL [facility] Comment:This test was develo ped and its analytical performancecharacteristics have been determined by [employer] [place] [place]. It hasnot been cleared or approved by the U.S. Food and DrugAdministration. This assay has been validated pursuantto the CLIA regulations and is used for clinicalpurposes. Vitamin D, 25-OH, Total 28(A) 30 - 100 ng/mL [facility] Comment:Vitamin D, 25-Hydrox y reports [...] = 30 ng/mL.For additional information, please refer tohttp://education.g4interactive/faq/LYU063(This link is being provided for informational/educational purposes only.) 01/08/2025 10:4 7 AM EDT 01/08/2025 10:47 AM EDT us Generic External Data Provider LAB BLOOD ORDERAB LES Final Result Performing Organization Address City/[facility]/ZIP Co de Phone Number [facility] [address] [place] [phone] * Sed Rate by Modified Marianren (01/08/2025 10:47 AM EDT) Erythrocyte Sedimentation Rate 9 0 - 20 MM/HR [facility] Comment:Patients with polycy themia and many hemoglobin abnormalitiesmay have depressed sed rates whereas patients with anemiamay have elevated sed rates. 01/08/2025 10:4 7 AM EDT 01/08/2025 10:47 AM EDT us Generic External Data Provider LAB BLOOD ORDERAB LES Final Result Performing Organization Address [facility]/ZIP Co de Phone Number [facility] [address] [place] [phone] * C-reactive Protein (01/08/2025 10:47 AM EDT) C Reactive Protein <0.10 < or = 0.50 mg/dL [facility] 01/08/2025 10:4 7 AM EDT 01/08/2025 10:47 AM EDT Generic External Data Provider LAB BLOOD ORDERAB LES Final Result Performing Organization Address City/[facility] Co de Phone Number [facility] [address] [place] [phone] * Lipase (01/08/2025 10:47 AM EDT) Only the most recent of2 resultswithin the time period is included. Lipase 33 8 - 78 U/L [facility] 01/08/2025 10:4 7 AM EDT 01/08/2025 10:47 AM EDT Generic External Data Provider LAB BLOOD ORDERAB LES Final Result Performing Organization Address [facility] de Phone Number [facility] [address] [place] [phone] * (ABNORMAL) Amylase (01/08/2025 10:47 AM EDT) Amylase 114(H) 28 - 100 U/L [facility] 01/08/2025 10:4 7 AM EDT 01/08/2025 10:47 AM EDT Generic External Data Provider LAB BLOOD ORDERAB LES Final Result Performing Organization Address [facility] de Phone Number [facility] [address] [place] [phone] * (ABNORMAL) Drug Monitoring, Panel 1, Screen, Urine (12/29/2024 1:09 PM EDT) Opiate Screen Urine Not Detected Not Detect [facility] Comment:Opiate cut-off is 30 0 ng/mL.Positive results are unconfirmed and should not be used fornon-medical purposes. Barbiturates, Urine Not Detected Not Detect [facility] LABS Comment:Barbiturate cut-off is 200 ng/mL.Positive results are unconfirmed and should not be used fornon-medical purposes. Phencyclidine Screen Urine Not Detected Not Detect [facility] Comment:Phencyclidine cut-of f is 25 ng/mL.Positive results are unconfirmed and should not be used fornon-medical purposes. Amphetamine Screen Urine Not Detected Not Detect [facility] Comment:Amphetamine cut-off is 1000 ng/mL.Positive results are unconfirmed and should not be used fornon-medical purposes. Benzodiazepines Screen Urine Not Detected Not Detect [facility] Comment:Benzodiazepine cut-o ff is 200 ng/mL.Positive results are unconfirmed and should not be used fornon-medical purposes. Cocaine Screen Urine Not Detected Not Detect [facility] Comment:Cocaine cut-off is 3 00 ng/mL.Positive results are unconfirmed and should not be used fornon-medical purposes. Cannabinoid Screen Urine POSITIVE(A) Not Detect [facility] Comment:Cannabinoid cut-off is 50 ng/mL.Positive results are unconfirmed and should not be used fornon-medical purposes. Methadone Screen, Urine Not Detected Not Detect ng/mL [facility] Comment:Methadone cut-off is 300 ng/mL.Positive results are unconfirmed and should not be used fornon-medical purposes. FENTANYL URINE Not Detected Not Detect [facility] Comment:Fentanyl cut-off is 1 ng/mL.Positive results are unconfirmed and should not be used fornon-medical purposes. Oxycodone Urine Screen Not Detected Not Detect ng/mL [facility] Comment:Oxycodone cut-off is 100 ng/mL.Positive results are unconfirmed and should not be used fornon-medical purposes. Buprenorphine Screen Not Detected Not Detect ng/mL [facility] Comment:Buprenorphine cut-of f is 5 ng/mL.Positive results are unconfirmed and should not be used fornon-medical purposes. 12/29/2024 1:09 PM EDT 12/29/2024 1:16 PM EDT us Generic External Data Provider LAB URINE ORDERAB LES Final Result Performing Organization Address [facility] Co de Phone Number [facility] [address] [place] [phone] * Urinalysis w/reflex microscopic (12/29/2024 1:09 PM EDT) Color Urine Yellow [facility] Appearance Urine Clear [facility] PH 8.0 5.0 - 9.0 [facility] Glucose Urine UA Negative Negative mg/dL [facility] Urine Blood Negative Negative [facility] Specific [place] - Urine 1.015 1.005 - 1.025 [facility] Urine Protein Negative Neg-Trace mg/dL [facility] Urine Ketones Negative Negative mg/dL [facility] Nitrite Urine Negative Negative [facility] Leukocyte Esterase Urine Negative Negative [facility] 12/29/2024 1:09 PM EDT 12/29/2024 1:16 PM EDT Narrative [facility] - 12/29/2024 1:22 PM EDT Urine, Clean Catch us Generic External Data Provider LAB URINE ORDERAB LES Final Result Performing Organization Address [facility] Co de Phone Number [facility] [address] [place] [phone] * CT Abdomen Pelvis w/ Contrast (12/29/2024 12:55 PM EDT) Anatomical Region Laterality Modality Body, Pelvis, Abdomen Computed T omography 12/29/2024 12:5 5 PM EDT Narrative 12/29/2024 1:42 PM EDT [address] [address] [address] Scan Report Signed Patient: Harriet Valdez MR#: [id number] : 1970 Acct:[id number] Age/Sex: 54 / F ADM Date: 12/29/24 Loc: HO.ED Attending Dr: Ordering Physician: Cheryl Cobb DO Date of Service: 12/29/24 Procedure(s): CT abdomen pelvis w IV con Accession Number(s): [id number] cc: Emilie Davis MD; RezaCheryl Hardy WEINSTEIN Report Number: [id number]: Total DLP = 296.00 mGy-cm EXAMINATION: CT [...] 12/29/24 1340 DD/ 1255 TD/TT: 12/29/24 1329 Pattern Painter: Procedure Note Donotuseinterpreter, Image - 12/29/[address] [place] [address] [address] Scan Report Signed Patient: Harriet ValdezMR#: [id number] : 1970Acct:[id number] Age/Sex: 54 / FADM Date: 12/29/24 Loc: .ED Attending Dr: Ordering Physician: Cheryl Cobb DO Date of Service: 12/29/24 Procedure(s): CT abdomen pelvis w IV con Accession Number(s): [id number] cc: Emilie Davis MD; Cheryl Cobb DO Report Number: [id number]: Total DLP = 296.00 mGy-cm EXAMINATION: CT [...] 12/29/24 1340 DD/ 1255 TD/TT: 12/29/24 1329 Pattern Painter: [facility] External Provider IMG CT PROCEDURES Final Result * Hepatic Function Panel (12/29/2024 10:00 AM EDT) Bilirubin, Total 0.4 0.0 - 1.0 mg/dL [facility] Bilirubin, Direct 0.1 0.0 - 0.5 mg/dL [facility] Aspartate Amino Transferase 26 5 - 31 U/L [facility] Alanine Aminotransferase 19 0 - 31 U/L [facility] Total Protein 7.6 6.5 - 8.0 g/dL [facility] Albumin Level 4.4 3.5 - 5.0 g/dL [facility] Alkaline Phosphatase 90 39 - 117 U/L [facility] 12/29/2024 10:0 0 AM EDT 12/29/2024 10:02 AM EDT us Generic External Data Provider LAB BLOOD ORDERAB LES Final Result [facility] [address] [place] [phone] * (ABNORMAL) Basic Metabolic Panel (12/29/2024 10:00 AM EDT) Pathologist [facility] Sodium 142 135 - 145 mmol/L [facility] Potassium 4.0 3.3 - 5.1 mmol/L [facility] Chloride 107 96 - 108 mmol/L [facility] Carbon Dioxide 30(H) 22 - 29 mmol/L [facility] Anion Gap 9(L) 12 - 20 [facility] Urea Nitrogen (BUN) 10 9 - 16 mg/dL [facility] Creatinine, Serum 0.75 0.5 - 1.4 mg/dL [facility] Creatinine Clr Calc Pharmacy 66.2 [facility] Comment:Provided height and weight: 162.56 cm,49.5 kg.eGFR (calculated from the MDRD study equation) and eCrCl(calculated from the Cockcroft-Gault equation) are based ondifferent parameters and may not yield comparable results.If eCrCl result is absurd, please check patient'sheight/weight. Estimated Glomerular Filt Rate >60 [facility] Comment:Chronic Kidney Disea se: Estimated GFR < 60 mL/min/1.81a5Bjyihk Kidney Disease: Estimated GFR < 15 mL/min/1.73m2 Glucose 117(H) 60 - 115 mg/dL [facility] Calcium 9.3 8.4 - 10.2 mg/dL [facility] 12/29/2024 10:0 0 AM EDT 12/29/2024 10:02 AM EDT Generic External Data Provider LAB BLOOD ORDERAB LES Final Result Performing Organization Address [facility] Co de Phone Number [facility] [address] [place] [phone] * (ABNORMAL) Confirmatory Syphilis Profile (11/26/2024 1:24 PM EDT) Rapid Plasma Reagin, Quant Non-React darren Nonreactive [facility] Treponema pallidum Antibody, Particle Agglutination Reactive( A) Nonreactive [facility] Comment:These results must b e reported by the ordering clinician orclinical facility to the [facility] required by state law.Testing performed at: [address] [address] 11/26/2024 1:24 PM EDT 11/27/2024 3:54 AM EDT Emilie Davis MD LAB BLOOD ORDERABLES Final Result Performing Organization Address [facility] Co de Phone Number [facility] [address] [place] [phone] * (ABNORMAL) Syphilis Screen (11/26/2024 1:24 PM EDT) Syphilis Screen Reactive( A) Nonreactive [facility] Comment:Reactive specimens a re sent to the [facility] Labfor confirmatory tests. 11/26/2024 1:24 PM EDT 11/26/2024 4:06 PM EDT Emilie Davis MD LAB BLOOD ORDERABLES Final Result Performing Organization Address [facility]/ZIP Co de Phone Number [facility] [address] [place] [phone] * Hepatitis C Viral RNA, Quantitative, Real-Time PCR (11/26/2024 1:24 PM EDT) [facility] Hepatitis C Viral Load <15 NOT DETECTED NOT DETECTED IU/mL [facility] HCV Log PCR <1.18 NOT DETECTED NOT DETECTED Log IU/mL [facility] Comment:For additional infor mation, please refer tohttp://education.NeXeption/faq/XDI43g8(This link is being provided for informational/educational purposes only.)THIS TEST WAS PERFORMED AT:[facility] [place] [phone] MALDONADO MD 11/26/2024 1:24 PM EDT 11/27/2024 2:28 PM EDT Emilie Davis MD LAB BLOOD ORDERABLES Final Result Performing Organization Address [facility] Co de Phone Number [facility] [address] [place] [phone] * (ABNORMAL) Hepatitis C Antibody with Reflex to HCV, RNA, Quantitative, Real- Time PCR (11/26/2024 1:24 PM EDT) [facility] Hepatitis C Antibody Reactive( A) Nonreactive [facility] Comment:Presumptive evidence of antibodies to HCV. 11/26/2024 1:24 PM EDT 11/26/2024 4:06 PM EDT Emilie Davis MD LAB BLOOD ORDERABLES Final Result Performing Organization Address [facility]/ZIP Co de Phone Number [facility] [address] [place] [phone] * Methylmalonic Acid (11/26/2024 1:24 PM EDT) Pathologist [facility] Methylmalonic Acid 197 55 - 335 nmol/L [facility] Comment: Serum methylmalonic acid (MMA) [...] outcomes,such as neural tube defects and intrauterine growthrestriction.[facility] utilized Multi-Modal Decomposition(MMD) analysis to establish first and second trimester-specific MMA reference intervals in , as givenbelow:MMA, First trimester (<13 wks gestation): 58-167 nmol/LMMA, Second trimester (13-23 wks gestation):63-241 nmol/LThis test was developed and its analytical performancecharacteristics have been determined by [employer]. It has not been cleared or approved by theFDA. This assay has been validated pursuant to the CLIAregulations and is used for clinical purposes.THIS TEST WAS PERFORMED AT:[facility] [place] [phone] ESTEVEZ MD,PHD 11/26/2024 1:24 PM EDT 11/26/2024 4:06 PM EDT us Generic External Data Provider LAB BLOOD ORDERAB LES Final Result [facility] [address] [place] [phone] * HIV-1 RNA, Quantitative, Real-Time PCR (11/26/2024 1:24 PM EDT) [facility] HIV RNA PCR Qn Copies NOT DETECTED NOT DETECTED copies/mL [facility] HIV RNA PCR Qn Log Copies NOT DETECTED NOT DETECTED [facility] Comment:Result Units: Log co pies/mLThis test was performed using Real-Time Polymerase ChainReaction.Reportable Range: 20 copies/mL to 10,000,000 copies/mL(1.30 log copies/mL to 7.00 log copies/mL).THIS TEST WAS PERFORMED AT:[facility] [place] [phone] MALDONADO MD 11/26/2024 1:24 PM EDT 11/26/2024 4:06 PM EDT Emilie Davis MD LAB BLOOD ORDERABLES Final Result Performing Organization Address [facility] de Phone Number [facility] [address] [place] [phone] * RPR (Monitor) with Reflex to??Titer (11/26/2024 1:24 PM EDT) RPR (Monitor) w/Refl Titer NON-REACTI VE NON-REACT DARREN [facility] Comment:THIS TEST WAS PERFOR MED AT:[facility] [address] [phone] MALDONADO MD Rapid Plasma Reagin Ab Titer TNP [facility] 11/26/2024 1:24 PM EDT 11/26/2024 4:06 PM EDT Emilie Davis MD LAB BLOOD ORDERABLES Final Result Performing Organization Address [facility] de Phone Number [facility] [address] [place] [phone] * POCT RAPID HIV SCREENING (11/26/2024 10:08 AM EDT) Blood 11/26/2024 10:0 8 AM EDT Narrative Medina Lewis RN - 11/26/2024 10:08 AM EDT Negative Emilie Davis MD POINT OF CARE TEST ENTER/E DIT ORDERABLES Final Result * NM Gastric Emptying Solid (10/20/2024 8:15 AM EDT) Anatomical Region Laterality Modality Body Nuclear Medicine 10/20/2024 8:15 AM EDT Narrative 10/20/2024 1:44 PM EDT [address] [address] Nuclear Medicine Report Signed Patient: Harriet Valdez MR#: [id number] : 1970 Acct:[id number] Age/Sex: 54 / F ADM Date: 10/20/24 Loc: ANJU Attending Dr: Aida LEMOS-Cristina Ordering Physician: Aida Orozco Date of Service: 10/20/24 Procedure(s): NM gastric emptying study Accession Number(s): [id number] cc: Emilie Davis MD; Aida Orozco EXAMINATION: [...] 10/20/24 1341 DD/ 0815 TD/TT: 10/20/24 1235 Pattern Painter: [facility] Procedure Note Donotuseinterpreter, Image - 10/20/2024 [place] [address] Nuclear Medicine Report Signed Patient: Harriet Valdez#: [id number] : 1970Acct:[id number] Age/Sex: 54 / FADM Date: 10/20/24 Loc: ANJU Attending Dr: Aida ASH Ordering Physician: Aida Orozco Date of Service: 10/20/24 Procedure(s): NM gastric emptying study Accession Number(s): [id number] cc: Emilie Davis MD; Aida Orozco EXAMINATION: [...] 10/20/24 1341 DD/ 0815 TD/TT: 10/20/24 1235 Pattern Painter: MADINA [facility] External Provider IMG NM PROCEDURES Final Result * (ABNORMAL) Lipid Panel, Standard (07/24/2024 1:36 PM EDT) Triglycerides 141 <150 mg/dL [facility] Comment:Desirable Triglyceri de: less than 150 mg/dLBorderline High Triglyceride 150-199 mg/dLHigh Triglyceride: 200-499 mg/dLVery High Triglyceride: greater than or equal to 5OO mg/dL Cholesterol 205(H) <200 mg/dL [facility] Comment:Desirable Cholestero l: less than 200 mg/dLBorderline High Cholesterol: 200-239 mg/dLHigh Cholesterol: greater than 239 mg/dL LDL Cholesterol Calculated 114(H) <100 mg/dL [facility] Comment:Desirable LDL: less than 100 mg/dLNear Optimal/Above Optimal LDL: 110- 129 mg/dLBorderline High LDL: 130-159 mg/dLHigh LDL: 160-189 mg/dLVery High LDL: greater than or equal to 190 mg/dL HDL Cholesterol 63 >40 mg/dL [facility] Comment:Desirable HDL: grea ter than 40 mg/dL Note: This HDL assay may give artificially low results in patients with liver disease. 07/24/2024 1:36 PM EDT 07/24/2024 4:20 PM EDT us Generic External Data Provider LAB BLOOD ORDERAB LES Final Result [facility] [address] [place] [phone] * HPV mRNA E6/E7 w/Reflex to HPV Genotypes 16, 18/45 (03/22/2023 11:30 AM EST) HPV nRNA E6/E7 Not Detected Not Detected [facility] Comment:Methodology: Transcr iption-Mediated AmplificationThis assay detects E6/E7 viral messenger RNA (mRNA) from 14high-risk HPV types (16,18,31,33,35,39,45,51,52,56,58,59,66,68).Cervical sources are required for HPV testing.If a vaginal source from a patient who has had atotal hysterectomy with removal of cervix wassubmitted, please contact the testing laboratoryfor alternative testing options.For additional information, please refer tohttp://education.NeXeption/faq/OVU691q5(This link if provided for information/educational purposes only.)THIS TEST WAS PERFORMED AT:[facility] [place] [phone] MALDONADO MD HPV mRNA E6/E7 [facility] HPV 16 RNA [facility] HPV 18/45 RNA TNP [facility] 03/22/2023 11:3 0 AM EST 03/25/2023 12:20 PM EST us Emilie Davis MD LAB CYTOLOGY ORDERABLES Fi nal Result [facility] [address] [place] [phone] * Pap Smear (03/22/2023 11:30 AM EST) 03/22/2023 11:3 0 AM EST 03/25/2023 12:20 PM EST Narrative [facility] - 04/11/2023 11:26 AM EST ----- ------- Name: Harriet Valdez Age/Sex: 53/F : 1970 Unit#: [id number] Attend Dr: RADHA VILLAREAL MD Re03/22/23 Status: DEP REF Location: HO.HHCLNP Disch: ----- ------- SPEC : [id number] RECD: 03/25/23 STATUS: JANIE DUNLAP NUM: [id number] AMBREEN: 03/22/[address] [facility] [address]: Emilie Davis MD ENTERED: 03/25/23-5363 SP TYPE: Pap Smr OTHR TAPIA: ORDERED: Pap Smear Interpretation Satisfactory for evaluation. Negative for intraepithelial lesion or malignancy. HPV mRNA E6/E7: NOT DETECTED This assay detects E6/E7 viral messenger RNA (mRNA) from 14 high-risk HPV types (16, 18, 31, 33, 35, 39, 45, 51, 52, 56, 58, 59, 66, 68) HPV testing performed by [employer], [place], [place]. See reference laboratory portion of the EMR for entire report. Clinical Information LMP: Unknown date Previous PAP test: Unknown date, WNL Other history: Pt on testosterone, surgical post menopause Material Received ThinPrep-Cervical ----- ------- Signed (signature on file) SERENA Alejandro (ASCP) 04/11/23 1126 ----- ------- END OF REPORT Emilie Davis MD LAB CYTOLOGY ORDERABLES Fi nal Result [facility] [address] [place] [phone] * Colonoscopy (01/30/2018) Colonoscopy normal Historical Provider HEALTH MAINTENANCE Final Result from Last 3 Months or Most Recently Relevant to Health Maintenance Insurance [facility] [address] [place] [address] Advance Directives Documents on File Type Date Recorded Patient Mfts Expl anation Advance Directives and Living Will 03/16/2024 Health Care Proxy 03/16/24 Care Teams Rehabilitation Engineer Relationship Specialty Start Date End Date Ryan, MD Emilie [address] [place] [phone] PCP - General Family Medicine 05/13/18 Morales Echavarria FNP [address] [place] [address] Nurse Practitioner Family Medicine 04/16/23August [address] [place] [address] [address] [place] [address] Gastroenterology 05/26/24 Fred Castanon [address] [place] [address] Drive [address] [place] [address] 07/21/24
--- OUTSIDE RECORDS SUMMARY | 2025-01-19 12:22 | XMS_ITS | Encounter Summary ---
Author Organization [employer] Address [address] [facility] 7t [place] [address] Care Team Providers Care Cell Installer Name Role Phone Emilie Davis MD Primary Care Provider [phone]- [phone] TECHNOLOGIST Unavailable Unavailable August Unavailable Fred Castanon Unavailable Reason for Visit * Reason Onset Date Comments Hospital Follow-up 01/04/2025 No Show 01/04/2025 Pt no show for h df Encounter Details Date Type Department Care Team (Late st Contact Info) Description 01/04/2025 Telephone [facility] [address] [place], [place] [phone] Emilie Davis MD [address] [place], [place] [phone] Hospital Follow-up; No Show (Pt no show [...] 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 Hospital: [facility] Date of admission: 12/29 Discharge date: 12/31 Diagnosed: Gastritis and inflammation of the pancreas *Send message to [place] Clinical Care Coordinators documented in this encounter Plan of Treatment Upcoming Encounters Date Type Department Care Team (Late st Contact Info) Description 01/22/2025 9:00 AM EDT Clinical Support [facility] [address] [place] [address] Medina Lewis, RONALD [address] [place] [address] 03/03/2025 9:30 AM EDT Office Visit [facility] [address] [place] [address] Emilie Davis MD [address] [place] [address] 06/04/2025 3:00 PM EST Office Visit [facility] [address] [place] [address] Merissa Donis, OD [address] [place] [address] documented as of this encounter Visit Diagnoses Not on filedocumented in this encounter Additional Health Concerns Assessment Noted Time PHQ-9 Depression Total Score: 3 04/30/20 9:17 AM EST documented as of this encounter Care Teams Cell Installer Relationship Specialty Start Date End Date Emilie Davis MD [address] [place] [address] PCP - General Family Medicine 05/13/18 Morales Echavarria FNP [address] [place] [phone] Nurse Practitioner Family Medicine 04/16/[address] [place] [address] Gastroenterology 05/26/[address] [place] [address] 07/21/24 documented as of this encounter
--- OUTSIDE RECORDS SUMMARY | 2025-01-19 12:22 | XMS_ITS | Encounter Summary ---
Author Organization [facility] [facility] Address [address] [facility] 7t [place] [address] Care Team Providers Care Lead Android Developer Name Role Phone Emilie Davis MD Primary Care Provider [phone]- [phone] Morales Echavarria GROCERY TEAM MEMBER Unavailable Unavailable August Unavailable Fred Castanon Unavailable Reason for Visit * Reason Onset Date Comments Med Refill 04/22/2024 Encounter Details Date Type Department Care Team (Late st Contact Info) Description 04/22/2024 Telephone [facility] [address] [place] [address] Emilie Davis MD [address] [place] [address] Med Refill Social History Tobacco Use Types [...] 200 MG/5ML suspension To be sent to: [facility] [place], [place] - [address] [facility] documented in this encounter Plan of Treatment Upcoming Encounters Date Type Department Care Team (Late st Contact Info) Description 01/22/2025 9:00 AM EDT Clinical Support [facility] [address] [place] [address] Medina Lewis, RONALD [address] [place] [address] 03/03/2025 9:30 AM EDT Office Visit [facility] [address] [place] [address] Emilie Davis MD [address] [place] [address] 06/04/2025 3:00 PM EST Office Visit [facility] [address] [place] [address] Gagandeep, Merissa, OD [address] [place] [address] documented as of this encounter Visit Diagnoses Not on filedocumented in this encounter Additional Health Concerns Assessment Noted Time PHQ-9 Depression Total Score: 3 04/30/20 9:17 AM EST documented as of this encounter Care Teams Lead Android Developer Relationship Specialty Start Date End Date Emilie Davis MD [address] [place] [address] PCP - General Family Medicine 05/13/18 Morales Echavarria FNP [address] [place] [address] Nurse Practitioner Family Medicine 04/16/23 Pam Aida [address] [place] [phone] Gastroenterology 05/26/24 Fred Castanon [address] [place] [phone] 07/21/24 documented as of this encounter
--- OUTSIDE RECORDS SUMMARY | 2025-01-19 12:22 | XMS_ITS | Encounter Summary ---
Author Organization [employer] Address [address] [facility] 7t [place] [address] Care Team Providers Care Inspector Circuitry Negative Name Role Phone Emilie Davis MD Primary Care Provider +1- [phone] Morales Echavarria Unavailable Unavailable August Unavailable Fred Castanon Unavailable Reason for Visit * Reason Comments Med Refill Encounter Details Date Type Department Care Team (Late st Contact Info) Description 01/01/2023 Refill [facility] MEDICINE [address] [place] [address] Emilie Davis MD 230 [place] [address] Social History Tobacco Use Types Packs/Day Years [...] 8:54 AM EDT T/C to patient via cloth trimmer hand regarding x-ray result. No answer, message [...] EDT Clinical Support [facility] MEDICINE [address] [place] [address] Medina Lewis, RONALD [address] [place] [address] 03/03/2025 9:30 AM EDT Office Visit [facility] MEDICINE [address] [place] [address] Emilie Davis MD 230 [place] [address] 06/04/2025 3:00 PM EST Office Visit [facility] OPTOMETRY [address] [place] [address] Merissa Donis, OD [address] [place] [address] documented as of this encounter Visit Diagnoses Not on filedocumented in this encounter Additional Health Concerns Assessment Noted Time PHQ-9 Depression Total Score: 19 023 9:24 AM EDT documented as of this encounter Care Teams Inspector Circuitry Negative Relationship Specialty Start Date End Date Emilie Davis MD [address] [place] [address] PCP - General Family Medicine 05/13/18 Morales Echavarria FNP [address] [place] [address] Nurse Practitioner Family Medicine 04/16/[address] [place] [address] Gastroenterology 05/26/24 Fred Castanon [address] [place] [address] 07/21/24 documented as of this encounter
--- OUTSIDE RECORDS SUMMARY | 2025-01-19 12:22 | XMS_ITS | Encounter Summary ---
Author Organization [employer] [facility] Address [address] [facility] 7t [place] [address] Care Team Providers Care Certified Credit Counselor Name Role Phone Emilie Davis MD Primary Care Provider +1- [phone] Morales Echavarria RAILROAD OPERATOR Unavailable Unavailable August Unavailable Fred Castanon Unavailable Reason for Visit * Reason Comments Med Refill Encounter Details Date Type Department Care Team (Late st Contact Info) Description 06/27/2022 Refill [facility] MEDICINE [address] [place] [phone] Emilie Davis MD [address] [place] [address] [phone] Social History Tobacco Use Types Packs/Day Years [...] Description 01/22/2025 9:00 AM EDT Clinical Support [facility] MEDICINE [address] [place] [address] [phone] Medina Lewis, RONALD [address] [place] [address] 03/03/2025 9:30 AM EDT Office Visit [facility] MEDICINE [address] [place] [address] [phone] Emilie Davis MD 230 [place] [address] 06/04/2025 3:00 PM EST Office Visit [facility] OPTOMETRY [address] [place] [address] Gagandeep Merissa, OD 230 [place] [address] documented as of this encounter Visit Diagnoses Not on filedocumented in this encounter Care Teams Certified Credit Counselor Relationship Specialty Start Date End Date Emilie Davis MD 230 [place] [address] PCP - General Family Medicine 05/13/18 Morales Echavarria FNP [address] [place] [address] Nurse Practitioner Family Medicine 04/16/23 Aida Orozco [address] [place] [address] 3[address] [place] [address] Gastroenterology 05/26/24 Fred Castanon [address] [place] [address] 07/21/24 documented as of this encounter
--- OUTSIDE RECORDS SUMMARY | 2025-01-19 12:22 | XMS_ITS | Encounter Summary ---
Author Organization [facility] Address [address] [place] [address] Phone Care Team Providers Care Corporate Compliance Director Name Role Phone Emilie Davis MD Primary Care Provi baldomero Encounter Details Date Type Department Care Team (Late st Contact Info) Description 10/28/2018 Procedure Pass OR Admitting Dept - Virtual Department [address] [place] [address] Social History Tobacco Use Types Packs/Day Years [...] on filedocumented in this encounter Care Teams Corporate Compliance Director Relationship Specialty Start Date End Date Emilie Davis MD [address] [place] [address] PCP - General Family Medicine 06/03/18 documented as of this encounter Additional Source Comments The information contained in this document represents components of the legal health record. It is not the complete legal health record.[facility]
--- OUTSIDE RECORDS SUMMARY | 2025-01-19 12:22 | XMS_ITS | Clinical Summary ---
Author Organization [facility] Address [address] [address] Phone Care Team Providers Care Real Estate Associate Name Role Phone Emilie Davis MD Primary [...] ACO C3 ACO C3 ACO C3 ACO [facility] C3 ACO [employer] Advance Directives For more information, please contact: [phone] (9AM - 5PM [facility], Saturday-Saturday) * Full Code (Presumed) (Latest Code Status on File) Date Activated Date Inactivated Comments 10/28/2018 9:51 AM 10/28/2018 7:25 PM Care Teams Real Estate Associate Relationship Specialty Start Date End Date [place], Emilie Way MD [address] [place] [address] PCP - General Family Medicine 06/03/18 Additional Source Comments The information contained in this document represents components of the legal health record. It is not the complete legal health record.[facility]
--- OUTSIDE RECORDS SUMMARY | 2025-01-19 12:22 | XMS_ITS | Encounter Summary ---
Author Organization [employer] Address [address] [facility] [address] [facility] [address] 7t [place] [address] Care Team Providers Care Interface Designer Name Role Phone Emilie Davis MD Primary Care Provider +1- [phone] Morales Echavarria COMPUTER ASSEMBLER Unavailable Unavailable August Unavailable Fred Castanon Unavailable Reason for Visit * Reason Onset Date Comments Appointment Request 11/26/2024 Encounter Details Date Type Department Care Team (Late st Contact Info) Description 11/26/2024 Telephone [facility] MEDICINE 230 [place] [address] Emilie Davis MD 230 [place] [address] Appointment Request Social History Tobacco Use Types [...] 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 Not on file Not on file documented as of this encounter Miscellaneous Notes * Telephone Encounter - Ernie Curry - 11/26/2024 9:25 AM EDT Tc from pt requesting to reschedule todays apt 11/26 Contact pt at [phone] ([place]) documented in this encounter Plan of Treatment Upcoming Encounters Date Type Department Care Team (Late st Contact Info) Description 01/22/2025 9:00 AM EDT Clinical Support [facility] MEDICINE [address] [place] [address] Medina Lewis RN 230 [place] [address] 03/03/2025 9:30 AM EDT Office Visit [facility] MEDICINE [address] [place] [address] Emilie Davis MD 230 [place] [address] 06/04/2025 3:00 PM EST Office Visit [facility] OPTOMETRY [address] [place] [address] Merissa Donis, OD 230 [place] [address] documented as of this encounter Visit Diagnoses Not on filedocumented in this encounter Additional Health Concerns Assessment Noted Time PHQ-9 Depression Total Score: 3 04/30/20 23 9:17 AM EST documented as of this encounter Care Teams Interface Designer Relationship Specialty Start Date End Date Emilie Davis MD 230 [place] [address] PCP - General Family Medicine 05/13/18 Morales Echavarria FNP [address] [place] [address] Nurse Practitioner Family Medicine 04/16/23August [address] [place] [address] 3[address] [place] [address] Gastroenterology 05/26/24 Fred Castanon [address] [place] [address] 07/21/24 documented as of this encounter
--- OUTSIDE RECORDS SUMMARY | 2025-01-19 12:22 | XMS_ITS | Encounter Summary ---
Author Organization [employer] Address [address] [facility] [address] 7t [place] [address] Care Team Providers Care Line Lead Name Role Phone CampEmilie MD Primary Care Provider +1- [phone] Morales Echavarria Unavailable Unavailable August Unavailable Fred Castanon Unavailable Encounter Details Date Type Department Care Team (Late st Contact Info) Description 01/14/2025 Orders Only [facility] External Provider, [facility] Generalized abdominal pain (Primary Dx) Social [...] 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 on file Not on file documented as of this encounter Plan of Treatment Upcoming Encounters Date Type Department Care Team (Late st Contact Info) Description 01/22/2025 9:00 AM EDT Clinical Support [facility] MEDICINE 230 [place] [address] Medina Lewis, RONALD [address] [place] [address] 03/03/2025 9:30 AM EDT Office Visit [facility] MEDICINE 230 [place] [address] Emilie Davis MD 230 [place] [address] 06/04/2025 3:00 PM EST Office Visit [facility] OPTOMETRY [address] [place] [address] Merissa Donis, OD 230 [place] [address] documented as of this encounter Procedures Procedure [...] EDT) Sodium 139 135 - 145 mmol/L [facility] Potassium 4.2 3.3 - 5.1 mmol/L [facility] Comment:Slight Hemolysis.Int erpret result with caution. Chloride 105 96 - 108 mmol/L [facility] Carbon Dioxide 27 22 - 29 mmol/L [facility] Anion Gap 11(L) 12 - 20 [facility] Urea Nitrogen (BUN) 12 9 - 16 mg/dL [facility] Creatinine, Serum 0.79 0.5 - 1.4 mg/dL [facility] Creatinine Clr Calc Pharmacy 72.3 [facility] Comment:Provided height and weight: 165.1 cm,57.9 kg.eGFR (calculated from the MDRD study equation) and eCrCl(calculated from the Cockcroft-Gault equation) are based ondifferent parameters and may not yield comparable results.If eCrCl result is absurd, please check patient'sheight/weight. Estimated Glomerular Filt Rate >60 [facility] Comment:Chronic Kidney Disea se: Estimated GFR < 60 mL/min/1.75f3Qvscsw Kidney Disease: Estimated GFR < 15 mL/min/1.73m2 Glucose 80 60 - 115 mg/dL [facility] Calcium 9.1 8.4 - 10.2 mg/dL [facility] Bilirubin, Total 0.3 0.0 - 1.0 mg/dL [facility] Aspartate Amino Transferase 26 5 - 31 U/L [facility] Comment:Slight Hemolysis.Int erpret result with caution. Alanine Aminotransferase 17 0 - 31 U/L [facility] Total Protein 7.2 6.5 - 8.0 g/dL [facility] Albumin Level 4.2 3.5 - 5.0 g/dL [facility] Alkaline Phosphatase 73 39 - 117 U/L [facility] 01/14/2025 3:40 PM EDT 01/14/2025 3:52 PM EDT Generic External Data Provider LAB BLOOD ORDERAB LES Final Result Performing Organization Address [facility] Co de Phone Number [facility] [address] [place] [phone] * Prothrombin Time-INR (01/14/2025 3:40 PM EDT) Pathologist [facility] Prothrombin Time 11.7 10.9 - 12.4 SEC [facility] INTERNATIONAL NORM RATIO 1.0 0.9 - 1.1 [facility] Comment:INTERNATIONAL NORMAL IZED RATIO (INR) REFERENCE [...] ORDERAB LES Final Result Performing Organization Address [facility] Co de Phone Number [facility] [address] [place] [phone] * (ABNORMAL) CBC auto differential (01/14/2025 3:40 PM EDT) White Blood Count 9.0 4.8 - 10.8 X10*3/uL [facility] Red Blood Count 4.50 4.20 - 5.50 X10*6/uL [facility] Hemoglobin 13.3 12.0 - 16.0 g/dl [facility] Hematocrit 39.1 37.0 - 47.0 % [facility] Mean Corpuscular Volume 86.9 80.0 - 98.0 fL [facility] Mean Corpuscular Hemoglobin 29.6 27.0 - 33.0 pg [facility] Mean Corpuscular HGB Conc 34.0 31.0 - 35.0 g/dl [facility] Red Cell Distribution Width 13.8 11.0 - 16.0 % [facility] Platelet Count 312 160 - 400 X10*3/uL [facility] Mean Platelet Volume 8.9(L) 9.4 - 12.3 fL [facility] Neutrophils Percent Auto 57.2 45 - 73 % [facility] Imm Gran Pct Auto 0.2 0.0 - 0.4 % [facility] Lymphocytes Percent Auto 34.6 20 - 40 % [facility] Monocytes Percent Auto 6.5 2 - 11 % [facility] Eosinophils Percent Auto 1.1 0 - 4 % [facility] Basophils Percent Auto 0.4 0 - 2 % [facility] NRBC Pct Auto 0.0 0.0 - 0.2 /100WBC [facility] Neutrophils Absolute Auto 5.1 2.0 - 8.3 x10*3/uL [facility] Imm Gran Abs Auto 0.02 0.00 - 0.03 X10*3/uL [facility] Lymphocytes Absolute Auto 3.1 1.2 - 4.9 X10*3/uL [facility] Monocytes Absolute Auto 0.6 0.1 - 1.2 X10*3/uL [facility] Eosinophils Absolute Auto 0.1 0.0 - 0.4 X10*3/uL [facility] Basophils Absolute Auto 0.0 0.0 - 0.2 X10*3/uL [facility] NRBC Abs Auto 0.000 0.0 - 0.012 X10*3/uL [facility] 01/14/2025 3:40 PM EDT 01/14/2025 3:52 PM EDT us Generic External Data Provider LAB BLOOD ORDERAB LES Final Result [facility] [address] [place] [phone] * FL Esophagus Barium Swallow (01/14/2025 9:40 AM EDT) Anatomical Region Laterality Modality Head, Neck Radiographic [place] ging 01/14/2025 9:40 AM EDT Narrative 01/14/2025 11:23 AM EDT [address] [address] Fluoroscopy Report Signed Patient: Harriet Valdez MR#: [id number] : 1970 Acct:[id number] Age/Sex: 54 / F ADM Date: 01/14/25 Loc: [facility] Attending Dr: Aida ASH Ordering Physician: Aida Orozco Date of Service: 01/14/25 Procedure(s): FL barium swallow Accession Number(s): [id number] cc: Emilie Davis MD; Aida Orozco Reason [...] 01/14/25 1120 DD/ 0940 TD/TT: 01/14/25 0955 Shipping Team Leader: [facility] Procedure Note Donotuseinterpreter, Image - 01/14/[address] [address] Fluoroscopy Report Signed Patient: Harriet ValdezMR#: [id number] : 1970Acct:[id number] Age/Sex: 54 / FADM Date: 01/14/25 Loc: [facility] Attending Dr: Aida ASH Ordering Physician: Aida Orozco Date of Service: 01/14/25 Procedure(s): FL barium swallow Accession Number(s): [id number] cc: Emilie Davis MD; Aida Orozco Reason [...] AM on 01/14/2025 Electronically signed by: Jimmy Perdoza MD 01/14/2025 11:20 AM EDT RP Dictated By: Jimmy Pedroza MD Signed By: <Electronically signed by Jimmy Pedroza MD in OV> 01/14/25 1120 DD/ 0940 TD/TT: 01/14/25 0955 Shipping Team Leader: MAD[facility] External Provider IMG FLU OROSCOPY PROCEDURES Final Result documented in this encounter Visit Diagnoses Diagnosis Generalized abdominal pain- Primary Abdominal pain, generalized documented in this encounter Additional Health Concerns Assessment Noted Time PHQ-9 Depression Total Score: 3 04/30/20 9:17 AM EST documented as of this encounter Care Teams Line Lead Relationship Specialty Start Date End Date Emilie Davis MD [address] [place] [address] PCP - General Family Medicine 05/13/18 Morales Echavarria FNP [address] [place] [address] Nurse Practitioner Family Medicine 04/16/23August [address] [place] [address] Gastroenterology 05/26/24 Fred Castanon [address] [place] [address] 07/21/24 documented as of this encounter
--- OUTSIDE RECORDS SUMMARY | 2025-01-19 12:22 | XMS_ITS | Encounter Summary ---
Author Organization [employer] Address [address] [facility] [address] 7t [place] [address] Care Team Providers Care Loan Officer Assistant Name Role Phone Emilie Davis MD Primary Care Provider +1- [phone] Morales Echavarria Unavailable Unavailable August Unavailable Fred Castanon Unavailable Encounter Details Date Type Department Care Team (Late st Contact Info) Description 03/25/2023 Orders Only [facility] MEDICINE [address] [place] [address] Emilie Davis MD [address] [place] [address] Social History Tobacco Use Types Packs/Day Years [...] Description 01/22/2025 9:00 AM EDT Clinical Support [facility] MEDICINE [address] [place] [address] Medina Lewis, RONALD 230 [place] [address] 03/03/2025 9:30 AM EDT Office Visit [facility] MEDICINE [address] [place] [address] Emilie Davis MD 230 [place] [address] 06/04/2025 3:00 PM EST Office Visit [facility] OPTOMETRY [address] [place] [address] Merissa Donis, OD 230 [place] [address] documented as of this encounter Visit Diagnoses Not on filedocumented in this encounter Additional Health Concerns Assessment Noted Time PHQ-9 Depression Total Score: 10 023 9:08 AM EDT documented as of this encounter Care Teams Loan Officer Assistant Relationship Specialty Start Date End Date Emilie Davis MD [address] [place] [address] PCP - General Family Medicine 05/13/18 Morales Echavarria FNP [address] [place] [address] Nurse Practitioner Family Medicine 04/16/[address] [place] [address] Gastroenterology 05/26/24 Fred Castanon [address] [place] [address] 07/21/24 documented as of this encounter
--- OUTSIDE RECORDS SUMMARY | 2025-01-19 12:22 | XMS_ITS | Encounter Summary ---
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 file Not on file documented as of this encounter Plan of Treatment Upcoming Encounters Date Type Department Care Team (Late st Contact Info) Description 01/22/2025 9:00 AM EDT Clinical Support [facility] MEDICINE [address] [place] [address] Medina Lewis, RONALD 230 [place] [address] 03/03/2025 9:30 AM EDT Office Visit [facility] MEDICINE [address] [place] [address] Emilie Davis MD 230 [place] [address] 06/04/2025 3:00 PM EST Office Visit [facility] OPTOMETRY [address] [place] [address] Merissa Donis, OD 230 [place] [address] documented as of this encounter Procedures Procedure Name Priority Date/Time Associated Diagnosis Comments HEMATOXYLIN AND EOSIN STAIN Routine 01/15/2025 3:32 PM EDT documented in this encounter Results * Hematoxylin and Eosin Stain (01/15/2025 3:32 PM EDT) 01/15/2025 3:32 PM EDT 01/18/2025 7:08 AM EDT [facility] - 01/19/2025 12:19 PM EDT ----- ------- Name: Trace RobersonHarriet Age/Sex: 54/F : 1970 Unit#: [id number] Attend Dr: Mary Alice Mayorga MD Re01/15/25 Status: [facility] Location: [facility] Disch: ----- ------- SPEC : [id number] RECD: 01/18/25 STATUS: JANIE DUNLAP NUM: [id number] AMBREEN: 01/15/25-1532 [facility] DR: Mary Alice Mayorga MD ENTERED: 01/18/25 [...] developed and their performance characteristics determined by [facility]. They have not been cleared or approved by the U.S. Food and Drug Administration (FDA). However, the FDA CONTINUED ON NEXT PAGE ----- ------- Name: Harriet Valdez Age/Sex: 54/F : 1970 Unit#: [id number] Attend Dr: Mary Alice Mayorga MD Re01/15/25 Status: [facility] Location: [facility] Disch: ----- ------- SPEC : [id number] RECD: 01/18/25-707 STATUS: JANIE DUNLAP NUM: [id number] AMBREEN: 01/15/25-153 [facility] DR: Mary Alice Mayorga MD ENTERED: 01/18/25 [...] laboratory testing. Copies To: Emilie Davis MD [address] [id number] Mary Alice Mayorga MD [facility] [address] [place] [address] [phone] ----- ------- Signed (signature on file) Yara Dodson MD 01/19/25 1219 ----- ------- END OF REPORT us Generic External Data Provider LAB BLOOD ORDERAB LES Final Result [facility] [address] [place], [place] [phone] documented in this encounter Visit Diagnoses Not on filedocumented in this encounter Additional Health Concerns Assessment Noted Time PHQ-9 Depression Total Score: 3 04/30/20 23 9:17 AM EST documented as of this encounter Care Teams Coin Machine Collector Supervisor Relationship Specialty Start Date End Date Emilie Davis MD [address] [place] [address] PCP - General Family Medicine 05/13/18 Morales Echavarria FNP [address] [place] [address] Nurse Practitioner Family Medicine 04/16/23 Pam Aida [address] [place] [address] Gastroenterology 05/26/24 Fred Castanon [address] [place] [address] 07/21/24 documented as of this encounter
--- OUTSIDE RECORDS SUMMARY | 2025-01-19 12:22 | XMS_ITS | Encounter Summary ---
Author Organization [employer] [facility] Address [address] [facility] 7t [place] [address] Care Team Providers Care Plant Etiologist Name Role Phone Emilie Davis MD Primary Care Provider +1- [phone] [place]ales Echavarria MOTOR TEACHER Unavailable Unavailable August Unavailable Fred Castanon Unavailable Reason for Visit * Reason Onset Date Comments Referral 07/18/2022 Encounter Details Date Type Department Care Team (Late st Contact Info) Description 07/18/2022 Telephone [facility] [address] [place] [address] Emilie Davis MD 230 [place] [address] Referral Social History Tobacco Use Types Packs/Day [...] to our [facility]. Please contact pt [phone] documented in this encounter Plan of Treatment Upcoming Encounters Date Type Department Care Team (Late st Contact Info) Description 01/22/2025 9:00 AM EDT Clinical Support [facility] [address] [place] [address] Medina Lewis, RN [address] [place] [address] 03/03/2025 9:30 AM EDT Office Visit [facility] [address] [place] [address] Emilie Davis MD 230 [place] [address] 06/04/2025 3:00 PM EST Office Visit [facility] [address] [place] [address] GagandeepMerissa santos, OD 230 [place] [address] documented as of this encounter Visit Diagnoses Not on filedocumented in this encounter Care Teams Plant Etiologist Relationship Specialty Start Date End Date Emilie Davis MD [address] [place] [address] PCP - General Family Medicine 05/13/18 [place]ales Echavarria FNP [address] [place] [address] Nurse Practitioner Family Medicine 04/16/23 Aida Orozco [address] [place] [address] 3[address] [place] [address] Gastroenterology 05/26/24 Fred Castanon [address] [place] [address] 07/21/24 documented as of this encounter
== END 2025-01-19 10:32 | disposition home or self-care (01) ==
LOC: HO.MRI 10:31
PROVIDERS: PCP Family Medicine; Visit Provider Internal Medicine
DX: K85.90 Acute pancreatitis without necrosis or infection, unspecified (principal)
CPT/HCPCS: 74183; A9585

== ENCOUNTER → 2025-01-19 10:43 | Outpatient (BNV) | payer OTHER, SELFPAY | PROVIDERS: PCP Family Medicine; Visit Provider Radiology Diagnostic Radiology | DX: K57.30 Diverticulosis of large intestine without perforation or abscess without bleeding (principal); K86.89 Other specified diseases of pancreas | CPT/HCPCS: 74183 ==

== ENCOUNTER 2025-01-27 11:23 | Outpatient (REF) | payer OTHER, SELFPAY ==
--- OUTSIDE RECORDS SUMMARY | 2025-01-27 11:00 | XMS_ITS | Encounter Summary ---
Author Organization [employer] Address [address] [facility] [address] 7t [place] [address] Care Team Providers Care Shear Tender Name Role Phone [place], Emilie MARISCAL Primary Care Provider +1- [phone] [place] Echavarria Unavailable Unavailable August Unavailable Fred Castanon Unavailable Encounter Details Date Type Department Care Team (Latest Contact Info) Description 01/27/2025 11:00 AM EDT Clinical Support [facility] [address] [place] [address] Medina Lewis, RONALD 230 [place] [address] On pre-exposure prophylaxis for HIV (Primary Dx) [...] 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 Reports had R gluteal pain for about aweek after the first injection but wishes to [...] given. 600 mg cabotegravir injected IM into Left gluteal muscle. Pt has L hip pain so only wants injections on R side. Pt advised to not rub the injection sites. Pt tolerated well,. Pt given phone number for RN and [...] testing. Syphilis done today 07/24/24, swabs 04/20/24. Last done today Next due 04/25/25 LFTs 6 months after first injection, then annually: next due 09/22/25 Appointment for 2nd month of injections (1 month and then every 2 mos thereafter w/ 7d russell period): 03/24/25 @11am documented in this encounter Plan of Treatment Upcoming Encounters Date Type Department Care Team (Late st Contact Info) Description 03/03/2025 9:30 AM EDT Office Visit [facility] [address] [place] [address] Emilie Davis MD 230 [place] [address] 03/24/2025 11:00 AM EST Clinical Support [facility] [address] [place] [address] Medina Lewis RN 230 [place] [address] 06/04/2025 3:00 PM EST Office Visit [facility] [address] [place] [address] Gagandeep, Merissa, OD 230 [place] [address] Scheduled Orders Name Type Priority Associated Diagnoses Orde r Schedule HIV-1 RNA, Quantitative, Real-Time PCR Lab Routine On pre-exposure prophylaxis for HIV Expected: 01/27/2025 (Approximate), Expires: 01/27/2026 CBC auto differential Lab Routine On pre-exposure prophylaxis for HIV Expected: 01/27/2025 (Approximate), Expires: 01/27/2026 Comprehensive Metabolic Panel Lab Routine On pre-exposure prophylaxis for HIV Expected: 01/27/2025 (Approximate), Expires: 01/27/2026 documented as of this encounter Procedures Procedure Name Priority Date/Time Associated Diagnosis Comments POCT RAPID HIV SCREENING Routine 01/27/2025 1:50 PM EDT On pre-exposure prophylaxis for HIV documented in this encounter Results * POCT Rapid HIV Screening (01/27/2025 1:50 PM EDT) Blood 01/27/2025 1:50 PM EDT Narrative Medina Lewis, RONALD - 01/27/2025 1:50 PM EDT negative Emilie Davis MD POINT OF CARE TEST ENTER/E DIT ORDERABLES Final Result documented in this encounter Visit Diagnoses Diagnosis On pre-exposure prophylaxis for HIV- Primary documented in this encounter Administered Medications Inactive Administered Medications - up to 3 most recent administrations Medication Order MAR Action Action Date Dose Rate Site Cabotegravir ER Suspension Extended Release 600 mg 600 mg, Intramuscular, Once, On Sat01/27/25 at 1400, For 1 dose, Ventrogluteal.Indication s:On pre-exposure prophylaxis for HIV Given 01/27/2025 2:00 PM EDT 600 mg Right Upper Buttock documented in this encounter Additional Health Concerns Assessment Noted Time PHQ-9 Depression Total Score: 3 04/30/20 23 9:17 AM EST documented as of this encounter Care Teams Shear Tender Relationship Specialty Start Date End Date Emilie Davis MD [address] [place] [address] PCP - General Family Medicine 05/13/18 [place] Echavarria FNP [address] [place] [address] Nurse Practitioner Family Medicine 04/16/23OrozcoAugust [address] [place] [address] Gastroenterology 05/26/24 Fred Castanon [address] [place] [address] 07/21/24 documented as of this encounter
[2025-01-27 13:22] LABS: MANUAL DIFF FLAG NO
[2025-01-27 13:29] LABS: Hematocrit 43.2 % (37.0-47.0); Hemoglobin 14.2 g/dl (12.0-16.0); Imm Gran Abs Auto 0.02 X10*3/uL (0.00-0.03); Imm Gran Pct Auto 0.2 % (0.0-0.4); Lymphocytes Absolute Auto 2.7 X10*3/uL (1.2-4.9); Mean Corpuscular HGB Conc 32.9 g/dl (31.0-35.0); Mean Corpuscular Hemoglobin 29.4 pg (27.0-33.0); Mean Corpuscular Volume 89.4 fL (80.0-98.0); NRBC Abs Auto 0.000 X10*3/uL (0.0-0.012); NRBC Pct Auto 0.0 /100WBC (0.0-0.2); Platelet Count 329 X10*3/uL (160-400); Red Blood Count 4.83 X10*6/uL (4.20-5.50); White Blood Count 8.0 X10*3/uL (4.8-10.8)
[2025-01-27 13:55] LABS: Alanine Aminotransferase 18 U/L (0-31); Albumin Level 4.2 g/dL (3.5-5.0); Alkaline Phosphatase 79 U/L (39-117); Anion Gap 9 (12-20); Aspartate Amino Transferase 22 U/L (5-31); Blood Urea Nitrogen 13 mg/dL (9-16); Calcium 9.1 mg/dL (8.4-10.2); Carbon Dioxide 30 mmol/L (22-29); Chloride 108 mmol/L (96-108); Estimated Glomerular Filt Rate > 60; Potassium 3.8 mmol/L (3.3-5.1); Sodium 143 mmol/L (135-145); Total Protein 7.2 g/dL (6.5-8.0)
--- OUTSIDE RECORDS SUMMARY | 2025-01-27 14:46 | XMS_ITS | Encounter Summary ---
Author Organization [facility] Address [address] [facility] 7t [place] [address] Care Team Providers Care Cardiac Cath Technician Name Role Phone Emilie Davis MD Primary Care Provider +1- [phone] [place] Echavarria DELI DEPARTMENT MANAGER Unavailable Unavailable August Unavailable Fred Castanon Unavailable Encounter Details Date Type Department Care Team (Late st Contact Info) Description 05/27/[address] [phone] Emilie Davis MD [address] [place] [address] [phone] Social History Tobacco Use Types Packs/Day Years [...] Description 03/03/2025 9:30 AM EDT Office Visit [address] [phone] Emilie Davis MD [address] [place] [address] [phone] 03/24/2025 11:00 AM EST Clinical Support [address] [phone] Medina Lewis RONALD 230 [place] [address] 06/04/2025 3:00 PM EST Office Visit [facility] [address] [place] [address] Merissa Donis, OD 230 [place] [address] documented as of this encounter Procedures Procedure [...] ORDERABLES F inal Result Performing Organization Address City/[facility]/ZIP Co de Phone Number [facility] [address] [place] [address] [phone] documented in this encounter Visit Diagnoses Not on filedocumented in this encounter Care Teams Cardiac Cath Technician Relationship Specialty Start Date End Date Emilie Davis MD 230 [place] [address] PCP - General Family Medicine 05/13/18 [place] Echavarria FNP [address] [place] [address] Nurse Practitioner Family Medicine 04/16/23 Aida Orozco [address] [place] [address] 3rd [place] [address] Gastroenterology 05/26/24 Fred Castanon [address] [place] [address] 3rd [place] [address] 07/21/24 documented as of this encounter
--- OUTSIDE RECORDS SUMMARY | 2025-01-27 14:46 | XMS_ITS | Encounter Summary ---
Author Organization [employer] [facility] Address [address] [facility] 7t [place] [address] Care Team Providers Care Associate Sales Name Role Phone Emilie Davis MD Primary Care Provider +- [phone] [place] Echavarria EXECUTIVE PILOT Unavailable Unavailable August Unavailable Fred Castanon Unavailable Reason for Visit * Reason Comments Med Refill Encounter Details Date Type Department Care Team (Late st Contact Info) Description 06/27/2022 Refill [facility] [address] [place] [address] [phone] Emilie Davis MD [address] [place] [address] [phone] Social History Tobacco Use Types Packs/Day Years [...] Description 03/03/2025 9:30 AM EDT Office Visit [facility] [address] [place] [address] [phone] Emilie Davis MD [address] [place] [address] [phone] 03/24/2025 11:00 AM EST Clinical Support [address] [address] Medina Lewis, RN 230 [place] [address] 06/04/2025 3:00 PM EST Office Visit [facility] [address] [place] [address] Merissa Donis, OD 230 [place] [address] documented as of this encounter Visit Diagnoses Not on filedocumented in this encounter Care Teams Associate Sales Relationship Specialty Start Date End Date Mcgrann, MD Emilie 230 [place] [address] PCP - General Family Medicine 05/13/18 [place] Echavarria FNP 230 [place] [address] Nurse Practitioner Family Medicine 04/16/23 Aida Orozco [address] [place] [address] 3[address] [place] [address] Gastroenterology 05/26/24 Fred Castanon [address] [place] [address] 07/21/24 documented as of this encounter
--- OUTSIDE RECORDS SUMMARY | 2025-01-27 14:46 | XMS_ITS | Encounter Summary ---
Author Organization [employer] Address [address] [facility] [address] 7t [place] [address] Care Team Providers Care Furnace Feeder Name Role Phone Emilie Davis MD Primary Care Provider +1- [phone] [place] Echavarria Unavailable Unavailable August Unavailable Fred Castanon Unavailable Encounter Details Date Type Department Care Team (Late st Contact Info) Description 03/25/2023 Orders Only [facility] [address] [place] [address] Emilie Davis MD [address] [place] [address] Social History Tobacco Use Types Packs/Day Years [...] Description 03/03/2025 9:30 AM EDT Office Visit [facility] [address] [place] [address] Emilie Davis MD [address] [place] [address] 03/24/2025 11:00 AM EST Clinical Support [facility] [address] [place] [address] Medina Lewis, RONALD [address] [place] [address] 06/04/2025 3:00 PM EST Office Visit [facility] [address] [place] [address] Merissa Donis, OD 230 [place] [address] documented as of this encounter Visit Diagnoses Not on filedocumented in this encounter Additional Health Concerns Assessment Noted Time PHQ-9 Depression Total Score: 10 023 9:08 AM EDT documented as of this encounter Care Teams Furnace Feeder Relationship Specialty Start Date End Date Emilie Davis MD [address] [place] [address] PCP - General Family Medicine 05/13/18 [place] Echavarria FNP [address] [place] [address] Nurse Practitioner Family Medicine 04/16/23OrozcoAugust [address] [place] [address] Gastroenterology 05/26/24 Fred Castanon [address] [place] [address] 07/21/24 documented as of this encounter
--- OUTSIDE RECORDS SUMMARY | 2025-01-27 14:46 | XMS_ITS | Encounter Summary ---
Author Organization [facility] Address [address] [place] [address] Phone Care Team Providers Care Shop Teacher Name Role Phone Emilie Davis MD Primary Care Provi baldomero Encounter Details Date Type Department Care Team (Late st Contact Info) Description 10/28/2018 Procedure Pass OR Admitting Dept - Virtual Department [address] [place] [address] Social History Tobacco Use Types Packs/Day Years [...] on filedocumented in this encounter Care Teams Shop Teacher Relationship Specialty Start Date End Date Emilie Davis MD [address] [place] [address] PCP - General Family Medicine 06/03/18 documented as of this encounter Additional Source Comments The information contained in this document represents components of the legal health record. It is not the complete legal health record.[facility]
--- OUTSIDE RECORDS SUMMARY | 2025-01-27 14:46 | XMS_ITS | Encounter Summary ---
Author Organization [employer] Address [address] [facility] [address] 7t [place] [address] Care Team Providers Care Property Officer Name Role Phone Emilie Davis MD Primary Care Provider +1- [phone] [place] Echavarria EDITOR DEPARTMENT Unavailable Unavailable August Unavailable Fred Castanon Unavailable Reason for Visit * Reason Onset Date Comments Referral 07/20/2024 Encounter Details Date Type Department Care Team (Late st Contact Info) Description 07/20/2024 Telephone [facility] 230 [place] [address] Emilie Davis MD 230 [place] [address] Referral Social History Tobacco Use Types Packs/Day [...] 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 Contact pt at [phone] documented in this encounter Plan of Treatment Upcoming Encounters Date Type Department Care Team (Late st Contact Info) Description 03/03/2025 9:30 AM EDT Office Visit [facility] [address] [place] [phone] Emilie Davis MD [address] [place] [address] 03/24/2025 11:00 AM EST Clinical Support [facility] [address] [place] [address] Medina Lewis, RONALD [address] [place] [address] 06/04/2025 3:00 PM EST Office Visit [facility] [address] [place] [address] Merissa Donis, GINA 230 [place] [address] documented as of this encounter Visit Diagnoses Not on filedocumented in this encounter Additional Health Concerns Assessment Noted Time PHQ-9 Depression Total Score: 3 04/30/20 9:17 AM EST documented as of this encounter Care Teams Property Officer Relationship Specialty Start Date End Date Emilie Davis MD 230 [place] [address] PCP - General Family Medicine 05/13/18 [place] Echavarria FNP [address] [place] [address] Nurse Practitioner Family Medicine 04/16/23 Aida Orozco [address] [place] [address] Gastroenterology 05/26/24 Fred Castanon [address] [place] [address] 07/21/24 documented as of this encounter
--- OUTSIDE RECORDS SUMMARY | 2025-01-27 14:46 | XMS_ITS | Encounter Summary ---
Author Organization [employer] [facility] Address [address] [facility] 7t [place] [address] Care Team Providers Care Manager Security And Safety Name Role Phone Emilie Davis MD Primary Care Provider +1- [phone] [place] Echavarria Unavailable Unavailable August Unavailable Ferd Castanon Unavailable Encounter Details Date Type Department Care Team (Late st Contact Info) Description 11/28/2022 Abstract [facility] [address] [place] [address] Emilie Davis MD [address] [place], [place] [phone] Social History Tobacco Use Types Packs/Day Years [...] Description 03/03/2025 9:30 AM EDT Office Visit [facility] [address] [place] [address] [phone] Emilie Davis MD [address] [place] [address] [place] [address] 03/24/2025 11:00 AM EST Clinical Support [facility] [address] [place] [address] Medina Lewis, RONALD 230 [place] [address] 06/04/2025 3:00 PM EST Office Visit [facility] [address] [place] [address] Merissa Donis, OD 230 [place] [address] documented as of this encounter Visit Diagnoses Not on filedocumented in this encounter Additional Health Concerns Assessment Noted Time PHQ-9 Depression Total Score: 19 023 9:24 AM EDT documented as of this encounter Care Teams Manager Security And Safety Relationship Specialty Start Date End Date Emilie Davis MD [address] [place] [address] PCP - General Family Medicine 05/13/18 [place] Echavarria FNP [address] [place] [address] Nurse Practitioner Family Medicine 04/16/23 Aida Orozco [address] [place] [address] Gastroenterology 05/26/24 Fred Castanon [address] [place] [address] 07/21/24 documented as of this encounter
--- OUTSIDE RECORDS SUMMARY | 2025-01-27 14:46 | XMS_ITS | Encounter Summary ---
Author Organization [employer] Address [address] [place] [address] Care Team Providers Care Safe Deposit Box Rental Clerk Name Role Phone Emilie Davis MD Primary Care Provider +1- [phone] Morales Echavarria Unavailable Unavailable August Unavailable Fred Castanon Unavailable Encounter Details Date Type Department Care Team (Late st Contact Info) Description 01/27/2025 Orders Only [facility] MEDICINE [address] [place], [place] [phone] Emilie Davis MD [address] [place] [address] Social History Tobacco Use Types Packs/Day Years [...] Industry Job Start Date Job End Date [employer] Not on file Not on file Not on file documented as of this encounter Plan of Treatment Upcoming Encounters Date Type Department Care Team (Late st Contact Info) Description 03/03/2025 9:30 AM EDT Office Visit [facility] MEDICINE [address] [place] [phone] Emilie Davis MD [address] [place] [address] 03/24/2025 11:00 AM EST Clinical Support [facility] MEDICINE [address] [place] [address] Medina Lewis, RONALD [address] [place] [address] 06/04/2025 3:00 PM EST Office Visit [facility] OPTOMETRY [address] [place] [address] Merissa Donis, GINA [address] [place] [address] documented as of this encounter Procedures Procedure Name Priority Date/Time Associated Diagnosis Comments CBC WITH AUTO DIFFERENTIAL Routine 01/27/2025 11:53 AM EDT COMPREHENSIVE METABOLIC PANEL Routine 01/27/2025 11:53 AM EDT documented in this encounter Results * (ABNORMAL) Comprehensive Metabolic Panel (01/27/2025 11:53 AM EDT) Sodium 143 135 - 145 mmol/L [facility] Potassium 3.8 3.3 - 5.1 mmol/L [facility] Chloride 108 96 - 108 mmol/L [facility] Carbon Dioxide 30(H) 22 - 29 mmol/L [facility] Anion Gap 9(L) 12 - 20 [facility] Urea Nitrogen (BUN) 13 9 - 16 mg/dL [facility] Creatinine, Serum 0.79 0.5 - 1.4 mg/dL [facility] Estimated Glomerular Filt Rate >60 [facility] Comment:Chronic Kidney Disea se: Estimated GFR < 60 mL/min/[id number] Kidney Disease: Estimated GFR < 15 mL/min/1.73m2 Glucose 78 60 - 115 mg/dL [facility] Calcium 9.1 8.4 - 10.2 mg/dL [facility] Bilirubin, Total 0.2 0.0 - 1.0 mg/dL [facility] Aspartate Amino Transferase 22 5 - 31 U/L [facility] Alanine Aminotransferase 18 0 - 31 U/L [facility] Total Protein 7.2 6.5 - 8.0 g/dL [facility] Albumin Level 4.2 3.5 - 5.0 g/dL [facility] Alkaline Phosphatase 79 39 - 117 U/L [facility] 01/27/2025 11:5 3 AM EDT 01/27/2025 1:16 PM EDT us Emilie Davis MD LAB BLOOD ORDERABLES Final Result [facility] [address] [place] [address] [phone] * CBC auto differential (01/27/2025 11:53 AM EDT) White Blood Count 8.0 4.8 - 10.8 X10*3/uL [facility] Red Blood Count 4.83 4.20 - 5.50 X10*6/uL [facility] Hemoglobin 14.2 12.0 - 16.0 g/dl [facility] Hematocrit 43.2 37.0 - 47.0 % [facility] Mean Corpuscular Volume 89.4 80.0 - 98.0 fL [facility] Mean Corpuscular Hemoglobin 29.4 27.0 - 33.0 pg [facility] Mean Corpuscular HGB Conc 32.9 31.0 - 35.0 g/dl [facility] Red Cell Distribution Width 14.6 11.0 - 16.0 % [facility] Platelet Count 329 160 - 400 X10*3/uL [facility] Mean Platelet Volume 9.6 9.4 - 12.3 fL [facility] Neutrophils Percent Auto 58.2 45 - 73 % [facility] Imm Gran Pct Auto 0.2 0.0 - 0.4 % [facility] Lymphocytes Percent Auto 33.1 20 - 40 % [facility] Monocytes Percent Auto 6.1 2 - 11 % [facility] Eosinophils Percent Auto 1.9 0 - 4 % [facility] Basophils Percent Auto 0.5 0 - 2 % [facility] NRBC Pct Auto 0.0 0.0 - 0.2 /100WBC [facility] Neutrophils Absolute Auto 4.7 2.0 - 8.3 x10*3/uL [facility] Imm Gran Abs Auto 0.02 0.00 - 0.03 X10*3/uL [facility] Lymphocytes Absolute Auto 2.7 1.2 - 4.9 X10*3/uL [facility] Monocytes Absolute Auto 0.5 0.1 - 1.2 X10*3/uL [facility] Eosinophils Absolute Auto 0.2 0.0 - 0.4 X10*3/uL [facility] Basophils Absolute Auto 0.0 0.0 - 0.2 X10*3/uL [facility] NRBC Abs Auto 0.000 0.0 - 0.012 X10*3/uL [facility] 01/27/2025 11:5 3 AM EDT 01/27/2025 1:16 PM EDT Emilie Davis MD LAB BLOOD ORDERABLES Final Result [facility] [address] [place] [phone] documented in this encounter Visit Diagnoses Not on filedocumented in this encounter Additional Health Concerns Assessment Noted Time PHQ-9 Depression Total Score: 3 04/30/20 23 9:17 AM EST documented as of this encounter Care Teams Safe Deposit Box Rental Clerk Relationship Specialty Start Date End Date Emilie Davis MD [address] [place] [phone] PCP - General Family Medicine 05/13/18 Morales Echavarria FNP [address] [place] [phone] Nurse Practitioner Family Medicine 04/16/23August [address] [place] [phone] Gastroenterology 05/26/24 Fred Castanon [address] [place] [phone] 07/21/24 documented as of this encounter
--- OUTSIDE RECORDS SUMMARY | 2025-01-27 14:46 | XMS_ITS | Encounter Summary ---
Author Organization [employer] [facility] Address [address] [facility] [address] [place] [address] Care Team Providers Care Manager Sterile Processing Name Role Phone Emilie Davis MD Primary Care Provider +1- [phone] Morales Echavarria OUTREACH COORDINATOR Unavailable Unavailable August Unavailable Fred Castanon Unavailable Reason for Visit * Reason Onset Date Comments Referral 07/18/2022 Encounter Details Date Type Department Care Team (Late st Contact Info) Description 07/18/2022 Telephone [facility] MEDICINE [address] [place] [address] Emilie Davis MD [address] [place] [address] Referral Social History Tobacco Use Types Packs/Day [...] [facility]. Please contact pt [phone] documented in this encounter Plan of Treatment Upcoming Encounters Date Type Department Care Team (Late st Contact Info) Description 03/03/2025 9:30 AM EDT Office Visit [facility] MEDICINE [address] [place] [address] Emilie Davis MD [address] [place] [address] 03/24/2025 11:00 AM EST Clinical Support [facility] MEDICINE [address] [place] [address] Medina Lewis, RONALD [address] [place] [address] 06/04/2025 3:00 PM EST Office Visit [facility] OPTOMETRY [address] [place] [address] Merissa Donis, OD [address] [place] [address] documented as of this encounter Visit Diagnoses Not on filedocumented in this encounter Care Teams Manager Sterile Processing Relationship Specialty Start Date End Date Emilie Davis MD [address] [place] [phone] PCP - General Family Medicine 05/13/18 Morales Echavarria FNP [address] [place] [phone] Nurse Practitioner Family Medicine 04/16/23 Aida Orozco [address] [place] [address] [address] [place] [address] Gastroenterology 05/26/24 Fred Castanon [address] [place] [phone] 07/21/24 documented as of this encounter
--- OUTSIDE RECORDS SUMMARY | 2025-01-27 14:46 | XMS_ITS | Clinical Summary ---
Author Organization [facility] Address [address] [address] Phone Care Team Providers Care Accounts Receivable Coordinator Name Role Phone Emilie Davis MD [...] ACO C3 ACO C3 ACO C3 ACO [facility] C3 [employer]CO [employer] Advance Directives For more information, please contact: [phone] (9AM - 5PM [facility] Saturday-Saturday) * Full Code (Presumed) (Latest Code Status on File) Date Activated Date Inactivated Comments 10/28/2018 9:51 AM 10/28/2018 7:25 PM Care Teams Accounts Receivable Coordinator Relationship Specialty Start Date End Date Cameron, Emilie Way MD [address] [place] [phone] PCP - General Family Medicine 06/03/18 Additional Source Comments The information contained in this document represents components of the legal health record. It is not the complete legal health record.[facility]
--- OUTSIDE RECORDS SUMMARY | 2025-01-27 14:46 | XMS_ITS | Clinical Summary ---
Author Organization [employer] Address [address] [place] [address] Care Team Providers Care Credit Card Interviewer Name Role Phone Emilie Davis MD Primary Care Provider [phone] Morales Echavarria Unavailable Unavailable August Unavailable Fred Castanon Unavailable Allergies Active Allergy Reactions Criticality Noted Date Comments Penicillins Anaphylaxis,Rash High 05/16/2017 Sumatriptan 10/28/2018 Medications * This document contains information received from the source organization and may not represent a complete record from that organization. Needle, Disp, (BD Disp [address]) 25G X 5/8 miscIndication s:Gender dysphoria in [...] Active cholecalcifero l (Vitamin D-3) 1.25 MG (79420 UT) capsule Take 1 capsule by mouth [...] order (will not trigger notification to Pharmacy)) Hospital, Clinic, or Other Facility Administered Medication Ordered Dose Route Frequency Start Date End Date Status Cabotegravir ER Suspension Extended Release 600 mgIndications:On pre-exposure prophylaxis for HIV 600 mg IM Once 01/27/2025 01/27/2025 Ended Active Problems Problem Noted Date Diagnosed Date Pancreatic mass 01/21/2025 Overview (01/21/2025): -MRI done in ER 01/21/25 Impression: Pancreatic mass of dorsal head/uncinate process is compressing on distal CBD and causing moderate to severe stenosis, mild upstream intrahepatic and extrahepatic bile duct dilatation, concerning for malignancy. Recommend taffy candy maker consultation, ERCP and tissue sampling. Idiopathic acute pancreatitis without infection or necrosis 12/31/2024 Overview (12/31/2024): -dx at [facility] 12/2024 Patient admitted to general medical [...] tonsils/cerebellar tonsil ectopia -seen by flor Rodriguez, ATTRACTIONS ASSOCIATE 09/24/24 As patient has new onset left-sided [...] XR 05/20/24 Coronary artery disease invo lving [place] heart without angina pectoris 05/20/2024 Overview (10/15/2024): [...] (A) 03/18/2024 RPRQUANT Non-Reactive 03/18/2024 -will call [facility] regarding need for testing 03/23/24 -pt allergic [...] care facilitated by Alessio. -dental home is [facility] -health care proxy filed 03/16/24 Assessment & Plan (03/17/2024 6:12 AM EST): -next physical exam due after 03/16/2025 -eye care facilitated by Alessio. -dental home is [facility] -health care proxy filed 03/16/24 Assessment & Plan (03/22/2023 9:17 AM EST): -next physical exam due after 12/07/2023. -eye care facilitated by Alessio. -dental home is outside of [facility] Assessment & Plan (12/06/2022 10:19 AM EDT): -next physical exam dueafter 12/07/2023. -eye care facilitated by Alessio. -dental home is outside of [facility] Hx of hepatitis C 11/26/2022 Overview [...] He was referred back to rheumatology in [place] 08/23/2020 but provider left the area. started on Tramadol. Take 3 times per week. He is not taking at this time. Assessment & Plan (03/17/2024 6:08 AM EST): X rays suggests osteoarthritis. Seen by rheumatology in [place]. Ibuprofen and NSAIDs cause gastritis. Minimal relief with acetaminophen. He was referred back to rheumatology in [place] 08/23/2020 but provider left the area. started on Tramadol. Take 3 times per week. He is not taking at this time. Assessment & Plan (03/22/2023 9:15 AM EST): X rays suggests osteoarthritis. Seen by rheumatology in [place]. Ibuprofen and NSAIDs cause gastritis. Minimal relief with acetaminophen. He was referred back to rheumatology in [place] 08/23/2020 but provider left the area. started on Tramadol. Take 3 times per week. Will need COT in the future. Assessment & Plan (12/06/2022 8:54 AM EDT): X rays suggests osteoarthritis. Seen by rheumatology in [place]. Ibuprofen and NSAIDs cause gastritis. Minimal relief with acetaminophen. He was referred back to rheumatology in [place] 08/23/2020 but provider left the area. started on Tramadol. Take 3 times per week. Will need COT in the future. Assessment & Plan (10/11/2022 9:58 AM EDT): X rays suggests osteoarthritis. Seen by rheumatology in [place]. Ibuprofen and NSAIDs cause gastritis. Minimal relief with acetaminophen. He was referred back to rheumatology in [place] 08/23/2020 but provider left the area. started [...] Now with palpitations. Will refer to his financial brokers for bradycardia. Assessment & Plan (03/22/2023 9:16 AM EST): Sinus bradycardia and asymptomatic. Pt states he always has slow heart rate Pt repots heart rate in 40s recorded with home BP monitor with symptoms of dizziness recorded at home. Now with palpitations. Will refer to his financial brokers for bradycardia. Assessment & Plan (12/06/2022 8:54 AM EDT): Sinus bradycardia and asymptomatic. Pt states he always has slow heart rate Pt repots heart rate in 40s recorded with home BP monitor with symptoms of dizziness recorded at home. Now with palpitations. Will refer to his financial brokers for bradycardia. Assessment & Plan (10/11/2022 9:58 AM EDT): Sinus bradycardia and asymptomatic. Pt states he always has slow heart rate Pt repots heart rate in 40s recorded with home BP monitor with symptoms of dizziness recorded at home. Now with palpitations. Will refer to his financial brokers for bradycardia. Generalized abdominal pain 06/25/2021 Overview [...] for GI. Insurance no longer accepted at [facility]. -EGD scheduled for December 2021. -10/19/24 IMPRESSION: Normal 4-hour solid food gastric emptying study. -note from August Pam 10/21/24 reveiwed [place] gastric emptying study [place] barium swallow H pylori Ag Stool ordered -note from Augusters 12/04/24 reviewed, Kaushik increased -esophageal barium swallow 01/13/25 [...] for GI. Insurance no longer accepted at [facility]. -EGD scheduled for December 2021. Assessment & [...] for GI. Insurance no longer accepted at [facility]. -EGD scheduled for December 2021. Assessment & [...] for GI. Insurance no longer accepted at [facility]. -EGD scheduled for December 2021. Assessment & [...] for GI. Insurance no longer accepted at [facility]. -EGD scheduled for December 2021. History of [...] lung 10/04/2017 Overview (05/20/2024): -Ct scan in [facility] on 12/25/2017 showed multiple indeterminate nodules, largest [...] 11/15/23 and NO SHOW. Pt can call [phone] to schedule mariely. number given to call 03/16/24 -CT 05/08/24 No acute intrathoracic findings. Calcified granulomas present bilaterally. No suspicious pulmonary nodule identified. Air-fluid level present within the midthoracic esophagus can be associated with gastroesophageal reflux disease and esophageal dysmotility. Coronary artery atherosclerosis. Assessment & Plan (05/20/2024 4:05 PM EST): -Ct scan in [place] ER on 12/25/2017 showed multiple indeterminate nodules, [...] 11/15/23 and NO SHOW. Pt can call [phone] to schedule mariely. number given to call 03/16/24 -CT 05/08/24 No acute intrathoracic findings. Calcified granulomas present bilaterally. No suspicious pulmonary nodule identified. Air-fluid level present within the midthoracic esophagus can be associated with gastroesophageal reflux disease and esophageal dysmotility. Coronary artery atherosclerosis. Assessment & Plan (03/17/2024 6:13 AM EST): -Ct scan in [place] ER on 12/25/2017 showed multiple indeterminate nodules, [...] 11/15/23 and NO SHOW. Pt can call [phone] to schedule mariely. number given to call 03/16/24 Assessment & Plan (03/22/2023 9:16 AM EST): -Ct scan in [place] ER on 12/25/2017 showed multiple indeterminate nodules, largest was solid and measured 2mm. -Given that the Pt has a tobacco Hx and quit in 2018 we referrred to pulmonology that was likely distrupted by the pandemic. -Will ordered repeat CT of chest to follow the nodles. Assessment & Plan (12/06/2022 10:18 AM EDT): -Ct scan in [place] ER on 12/25/2017 showed multiple indeterminate nodules, [...] OP services and referral to [facility] Psychopharmacology clinic. Provided Crisis contact number [...] engagement. PLAN: 1. Follow up with [facility]: Not recommended for follow-up 2. Patient goal is to learn coping mechanisms to manage sxs. 3. Behavioral Recommendations a. Ind. Therapy and Medication Management b. Continue using coping skills c. [facility] support as needed. Mild major depression 06/25/20212023 Encounters Date Type Department Care Team Description 01/27/2025 11:00 AM EDT Clinical Support [address] [address] Medina Lewis RN On pre-exposure prophylaxis for HIV (Primary Dx) 01/27/2025 Orders Only [facility] [address] [place] [address] Emilie Davis MD 01/27/2025 Travel 01/21/2025 Travel 01/19/2025 Orders Only [facility] External Provider, [facility] Pancreatic mass (Primary Dx) 01/15/2025 Orders Only GENERIC EXTERNAL DATA DEPARTMENT Provider, Generic External Data 01/14/2025 Orders Only [facility] External Provider, [facility] Generalized abdominal pain (Primary Dx) 01/08/2025 Orders Only GENERIC EXTERNAL DATA DEPARTMENT Provider, Generic External Data 01/07/[address] [address] Emilie Davis MD Call Back Request; Injectable PrEP Communication 01/04/2025 Patient Outreach [address] [address] Emilie Davis MD Transition Of Care (Tcm) (HDF unscheduled) 01/04/[address] [address] Emilie Davis MD Nurse Triage 01/04/[address] [address] Emilie Davis MD Hospital Follow-up; No Show (Pt no show for hdf ) 12/29/2024 Orders Only GENERIC EXTERNAL DATA DEPARTMENT Provider, Generic External Data 11/26/2024 9:30 AM EDT Clinical Support [address] [address] Medina Lewis, RN On pre-exposure prophylaxis for HIV (Primary Dx) 11/26/2024 Orders Only [address] [address] Emilie Davis MD 11/26/2024 Travel 11/26/[address] [address] Emilie Davis MD Appointment Request 11/25/[address] [address] Emilie Davis MD February11/16/2024 Telephone [facility] [address] [place] [address] Medina Lewis RN from Last 3 Months Immunizations Immunization Administration [...] Industry Job Start Date Job End Date [employer] Not on file Not on [...] Description 03/03/2025 9:30 AM EDT Office Visit [facility] MEDICINE [address] [place] [phone] Emilie Davis MD [address] [place] [phone] 03/24/2025 11:00 AM EST Clinical Support [facility]INE [address] [place] [phone] Medina Lewis, RONALD [address] [place] [phone] 06/04/2025 3:00 PM EST Office Visit [facility] OPTOMETRY [address] [place] [address] Merissa Donis, OD [address] [place] [address] Health Maintenance Due Date Last Done Comments [...] PM EDT On pre-exposure prophylaxis for HIV COMPREHENSIVE METABOLIC PANEL Routine 01/27/2025 11:53 AM EDT CBC WITH AUTO DIFFERENTIAL Routine 01/27/2025 11:53 AM EDT MR ABDOMEN W AND WO CONTRAST Routine 01/20/2025 4:03 PM EDT HEMATOXYLIN AND EOSIN STAIN Routine 01/15/2025 3:32 [...] AM EDT On pre-exposure prophylaxis for HIV LIPID PANEL, STANDARD Routine 07/24/2024 1:36 PM EDT HPV MRNA E6/E7 REFLEX TO HPV 16, 18/45 Routine 03/22/2023 11:30 AM EST PAP SMEAR Routine 03/22/2023 11:30 AM EST HM COLONOSCOPY Routine 01/30/2018 from Last 3 Months or Most Recently Relevant to Health Maintenance Results * POCT Rapid HIV Screening (01/27/2025 1:50 PM EDT) Only the most recent of2 resultswithin the time period is included. Blood 01/27/2025 1:50 PM EDT Narrative Medina Lewis RN - 01/27/2025 1:50 PM EDT negative Emilie Davis MD POINT OF CARE TEST ENTER/E DIT ORDERABLES Final Result * CBC auto differential (01/27/2025 11:53 AM EDT) Only the most recent of3 resultswithin the time period is included. White Blood Count 8.0 4.8 - 10.8 X10*3/uL [facility] Red Blood Count 4.83 4.20 - 5.50 X10*6/uL [facility] Hemoglobin 14.2 12.0 - 16.0 g/dl [facility] Hematocrit 43.2 37.0 - 47.0 % [facility] Mean Corpuscular Volume 89.4 80.0 - 98.0 fL [facility] Mean Corpuscular Hemoglobin 29.4 27.0 - 33.0 pg [facility] Mean Corpuscular HGB Conc 32.9 31.0 - 35.0 g/dl [facility] Red Cell Distribution Width 14.6 11.0 - 16.0 % [facility] Platelet Count 329 160 - 400 X10*3/uL [facility] Mean Platelet Volume 9.6 9.4 - 12.3 fL [facility] Neutrophils Percent Auto 58.2 45 - 73 % [facility] Imm Gran Pct Auto 0.2 0.0 - 0.4 % [facility] Lymphocytes Percent Auto 33.1 20 - 40 % [facility] Monocytes Percent Auto 6.1 2 - 11 % [facility] Eosinophils Percent Auto 1.9 0 - 4 % [facility] Basophils Percent Auto 0.5 0 - 2 % [facility] NRBC Pct Auto 0.0 0.0 - 0.2 /100WBC [facility] Neutrophils Absolute Auto 4.7 2.0 - 8.3 x10*3/uL [facility] Imm Gran Abs Auto 0.02 0.00 - 0.03 X10*3/uL [facility] Lymphocytes Absolute Auto 2.7 1.2 - 4.9 X10*3/uL [facility] Monocytes Absolute Auto 0.5 0.1 - 1.2 X10*3/uL [facility] Eosinophils Absolute Auto 0.2 0.0 - 0.4 X10*3/uL [facility] Basophils Absolute Auto 0.0 0.0 - 0.2 X10*3/uL [facility] NRBC Abs Auto 0.000 0.0 - 0.012 X10*3/uL [facility] 01/27/2025 11:5 3 AM EDT 01/27/2025 1:16 PM EDT us Emilie Davis MD LAB BLOOD ORDERABLES Final Result [facility] [address] [place] [address] [phone] * (ABNORMAL) Comprehensive Metabolic Panel (01/27/2025 11:53 AM EDT) Only the most recent of2 resultswithin the time period is included. Sodium 143 135 - 145 mmol/L [facility] Potassium 3.8 3.3 - 5.1 mmol/L [facility] Chloride 108 96 - 108 mmol/L [facility] Carbon Dioxide 30(H) 22 - 29 mmol/L [facility] Anion Gap 9(L) 12 - 20 [facility] Urea Nitrogen (BUN) 13 9 - 16 mg/dL [facility] Creatinine, Serum 0.79 0.5 - 1.4 mg/dL [facility] Estimated Glomerular Filt Rate >60 [facility] Comment:Chronic Kidney Disea se: Estimated GFR < 60 mL/min/[id number] Kidney Disease: Estimated GFR < 15 mL/min/1.73m2 Glucose 78 60 - 115 mg/dL [facility] Calcium 9.1 8.4 - 10.2 mg/dL [facility] Bilirubin, Total 0.2 0.0 - 1.0 mg/dL [facility] Aspartate Amino Transferase 22 5 - 31 U/L [facility] Alanine Aminotransferase 18 0 - 31 U/L [facility] Total Protein 7.2 6.5 - 8.0 g/dL [facility] Albumin Level 4.2 3.5 - 5.0 g/dL [facility] Alkaline Phosphatase 79 39 - 117 U/L [facility] 01/27/2025 11:5 3 AM EDT 01/27/2025 1:16 PM EDT us Emilie Davis MD LAB BLOOD ORDERABLES Final Result [facility] [address] [place] [phone] * MR Abdomen w/ and w/o Contrast (01/20/2025 4:03 PM EDT) Anatomical Region Laterality Modality Abdomen Magnetic Resonan ce 01/20/2025 4:03 PM EDT Narrative 01/20/2025 4:05 PM EDT [address] [address] Magnetic Resonance Report Signed with Addenda Patient: Harriet Valdez MR#: [id number] : 1970 Acct:[id number] Age/Sex: 54 / F ADM Date: 01/19/25 Loc: HO.MRI Attending Dr: Cha Mills MD Ordering Physician: Cha Mills MD Date of Service: 01/19/25 Procedure(s): MR abdomen wo/w con Accession Number(s): [id number] cc: Emilie Davis MD; Cha Mills MD Reason for Exam: K85.90 - Acute pancreatitis without necrosis or infection, unspecified ADDENDUM This document has been electronically signed by: Yumiko Jones MD on 01/20/2025 16:03:51 ADDENDUM: Receipt of this report by the clinical staff was confirmed with Kylie Trotter MA on Jan 20, 2025 16:26:00 EDT. This document has been electronically signed by: Radha Meek on 01/20/2025 16:27:15 Addendum Dictated By: Yumiko Jones MD Addendum Signed By: <Electronically signed by Yumiko Jones MD in OV> 01/20/251626 Addendum Cosigned By: DD/ /06/1603 TD/TT: 01/20/2503/06/1627 CLINICAL HISTORY: K85.90 - Acute pancreatitis without necrosis or infection, unspecified Exam: MRCP without IV contrast, MRI abdomen without and with IV contrast Comparison: CT/SR - CT ABDOMEN PELVIS WITH IV CONTRAST - 12/29/24 12:55 EDT Findings: Hypoenhancing predominantly solid mass 2.5 x 2.1 x 2.7 cm (TRX AP X cc) of pancreatic head/uncinate process dorsally, series 5, image 26, hypointense on T1, mildly hyperintense relative to remainder pancreatic parenchyma on T2, postcontrast images demonstrates delayed hypoenhancement, slightly elongated cystic foci 2 mm and 5 mm within the mass, it is compressing on the distal CBD and causing moderate to severe stenosis about 1.5 cm above duodenal insertion, the upstream extrahepatic and intrahepatic ducts are mildly dilated, cystic duct remnant is also dilated. MPD is not dilated. The mass is also mildly compressing on the IVC, close to SMV with preserved tissue plane, no apparent involvement of SMA, celiac or SMV. Status post cholecystectomy. Liver is normal in size, no steatosis. 6 mm T2 bright lesion of the right hepatic dome segment 8, hypointense on T1 with early peripheral discontinuous nodular enhancement and gradual centripetal contrast filling, consistent with hemangioma, adjacent segment 8 3 mm nonenhancing cystic focus. Patent hepatic and portal veins. Spleen, adrenal glands, kidneys are unremarkable. Diverticulosis of the colon, negative for acute diverticulitis, remaining GI tract is unremarkable. Unremarkable vasculature. No bulky lymph nodes. No ascites. Unremarkable lung bases. No acute osseous abnormality or suspicious osseous lesion. Impression: 1. Pancreatic mass of dorsal head/uncinate process is compressing on distal CBD and causing moderate to severe stenosis, mild upstream intrahepatic and extrahepatic bile duct dilatation, concerning for malignancy. Recommend taffy candy maker consultation, ERCP and tissue sampling. 2. Subcentimeter right hepatic hemangioma and cyst. 3. Diverticulosis coli. This document has been electronically signed by: Yumiko Jones MD on 01/20/2025 16:03:51 Dictated By: Yumiko Jones MD Signed By: <Electronically signed by Yumiko Jones MD in OV> 01/20/25 1605 DD/ 1603 TD/TT: 01/20/25 1603 Labor Relations Analyst: Procedure Note Donotuseinterpreter, Image - 01/20/[address] [address] Magnetic Resonance Report Signed with Addenda Patient: Harriet ValdezMR#: [id number] : 1970Acct:[id number] Age/Sex: 54 / FADM Date: 01/19/25 Loc: HO.MRI Attending Dr: Cha Mills MD Ordering Physician: Cha Mills MD Date of Service: 01/19/25 Procedure(s): MR abdomen wo/w con Accession Number(s): [id number] cc: Emilie Davis MD; Cha Mills MD Reason for Exam: K85.90 - Acute pancreatitis without necrosis orinfection, unspecified ADDENDUM This document has been electronically signed by: Yumiko Jones MD on 01/20/2025 16:03:51 ADDENDUM: Receipt of this report by the clinical staff was confirmed with Kylie Trotter MA on Jan 20, 2025 16:26:00 EDT. This document has been electronically signed by: Radha Meek on 01/20/2025 16:27:15 Addendum Dictated By: Yumiko Jones MD Addendum Signed By: <Electronically signed by Yumiko Jones MD inOV> 01/20/251626 Addendum Cosigned By: DD/ /06/1603 TD/TT: 01/20/2503/06/1627 CLINICAL HISTORY: K85.90 - Acute pancreatitis without necrosis orinfection, unspecified Exam: MRCP without IV contrast, MRI abdomen without and with IV contrast Comparison: CT/SR - CT ABDOMEN PELVIS WITH IV CONTRAST - 12/29/24 12:55 EDT Findings: Hypoenhancing predominantly solid mass 2.5 x 2.1 x 2.7 cm (TRX AP X cc) of pancreatic head/uncinate process dorsally, series 5, image 26, hypointense on T1, mildly hyperintense relative to remainder pancreatic parenchyma on T2, postcontrast images demonstrates delayed hypoenhancement, slightly elongated cystic foci 2 mm and 5 mm within the mass, it is compressing on the distal CBD and causing moderate to severe stenosis about 1.5 cm above duodenal insertion, the upstream extrahepatic and intrahepatic ducts are mildly dilated, cystic duct remnant is also dilated. MPD is not dilated. The mass is also mildly compressing on the IVC, close to SMV with preserved tissue plane, no apparent involvement of SMA, celiac or SMV. Status post cholecystectomy. Liver is normal in size, no steatosis. 6 mm T2 bright lesion of the right hepatic dome segment 8, hypointense on T1 with early peripheral discontinuous nodular enhancement and gradual centripetal contrast filling, consistent with hemangioma, adjacent segment 8 3 mm nonenhancing cystic focus. Patent hepatic and portal veins. Spleen, adrenal glands, kidneys are unremarkable. Diverticulosis of the colon, negative for acute diverticulitis, remaining GI tract is unremarkable. Unremarkable vasculature. No bulky lymph nodes. No ascites. Unremarkable lung bases. No acute osseous abnormality or suspicious osseous lesion. Impression: 1. Pancreatic mass of dorsal head/uncinate process is compressing on distal CBD and causing moderate to severe stenosis, mild upstream intrahepatic and extrahepatic bile duct dilatation, concerning for malignancy. Recommend taffy candy maker consultation, ERCP and tissue sampling. 2. Subcentimeter right hepatic hemangioma and cyst. 3. Diverticulosis coli. This document has been electronically signed by: Yumiko Jones MD on 01/20/2025 16:03:51 Dictated By: Yumiko Jones MD Signed By: <Electronically signed by Yumiko Jones MD in OV> 01/20/25 160 DD/ 02 TD/TT: 01/20/251602 Labor Relations Analyst: [facility] External Provider IMG MRI PROCEDURES Edited Result - Final * Hematoxylin and Eosin Stain (01/15/2025 3:32 PM EDT) 01/15/2025 3:32 PM EDT 01/18/2025 7:08 AM EDT [facility] - 01/19/2025 12:19 PM EDT ----- ------- Name: Harriet Valdez Age/Sex: 54/F : 1970 Unit#: [id number] Attend Dr: Mary Alice Mayorga MD Re01/15/25 Status: [facility] Location: [facility] Disch: ----- ------- SPEC : [id number] RECD: 01/18/25 STATUS: JANIE DUNLAP NUM: [id number] AMBREEN: 01/15/25-[address] [facility] [address]: Mary Alice Mayorga MD ENTERED: [...] developed and their performance characteristics determined by [facility]. They have not been cleared or approved by the U.S. Food and Drug Administration (FDA). However, the FDA CONTINUED ON NEXT PAGE ----- ------- Name: Harriet Valdez Age/Sex: 54/F : 1970 Unit#: [id number] Attend Dr: Mary Alice Mayorga MD Re01/15/25 Status: [facility] Location: [facility] Disch: ----- ------- SPEC : [id number] RECD: 01/18/25 STATUS: [facility] NUM: [id number] AMBREEN: 01/15/25-[address] [facility] [address]: Mary Alice Mayorga MD ENTERED: [...] laboratory testing. Copies To: Emilie Davis MD [address] [address] Mary Alice Mayorga MD [facility] [address] [place] [phone] ----- ------- Signed (signature on file) Yara Dodson MD 01/19/25 1219 ----- ------- END OF REPORT Generic External Data Provider LAB BLOOD ORDERAB LES Final Result Performing Organization Address [facility] de Phone Number [facility] [address] [place] [phone] * Prothrombin Time-INR (01/14/2025 3:40 PM EDT) Prothrombin Time 11.7 10.9 - 12.4 SEC [facility] INTERNATIONAL NORM RATIO 1.0 0.9 - 1.1 [facility] Comment:INTERNATIONAL NORMAL IZED RATIO (INR) REFERENCE [...] 3:40 PM EDT 01/14/2025 3:52 PM EDT [employer] External Data Provider LAB BLOOD ORDERAB LES Final Result Performing Organization Address [facility] de Phone Number [facility] [facility] [address] [place] [phone] * FL Esophagus Barium Swallow (01/14/2025 9:40 AM EDT) Anatomical Region Laterality Modality Head, Neck Radiographic Aurora ging 01/14/2025 9:40 AM EDT Narrative 01/14/2025 11:23 AM EDT [address] [address] Fluoroscopy Report Signed Patient: Harriet Valdez MR#: [id number] : 1970 Acct:[id number] Age/Sex: 54 / F ADM Date: 01/14/25 Loc: HO.XRAY Attending Dr: Aida ASH Ordering Physician: Aida Orozco Date of Service: 01/14/25 Procedure(s): FL barium swallow Accession Number(s): [id number] cc: Emilie Davis MD; Aida Orozco Reason [...] 01/14/25 1120 DD/ 0940 TD/TT: 01/14/25 0955 Labor Relations Analyst: MADINA Procedure Note Donotuseinterpreter, Image - 01/14/[address] [address] Fluoroscopy Report Signed Patient: Harriet ValdezMR#: [id number] : 1970Acct:[id number] Age/Sex: 54 / FADM Date: 01/14/25 Loc: HO.SHANNONAY Attending Dr: Aida ASH Ordering Physician: Aida Orozco Date of Service: 01/14/25 Procedure(s): FL barium swallow Accession Number(s): [id number] cc: Emilie Davis MD; Aida Orozco Reason [...] 01/14/25 1120 DD/ 0940 TD/TT: 01/14/25 0955 Labor Relations Analyst: MADINA [facility] External Provider IMG FLU OROSCOPY PROCEDURES Final Result * XR Abdomen 2 View minimum (01/08/2025 10:50 AM EDT) Anatomical Region Laterality Modality Abdomen Radiographic Aurroa ging 01/08/2025 10:5 0 AM EDT Narrative 01/08/2025 12:26 PM EDT [address] [address] XRay Report Signed Patient: Harriet Valdez MR#: [id number] : 1970 Acct:[id number] Age/Sex: 54 / F ADM Date: 01/08/25 Loc: MARINO Attending Dr: Aida LEMOS-Cristina Ordering Physician: Aida Orozco Date of Service: 01/08/25 Procedure(s): XR abdomen min 2V Accession Number(s): [id number] cc: Emilie Davis MD; Aida Orozco EXAMINATION: [...] 01/08/25 1223 DD/ 1050 TD/TT: 01/08/25 1057 Labor Relations Analyst: Procedure Note Donotuseinterpreter, Image - 01/08/[address] [address] XRay Report Signed Patient: Harriet ValdezMR#: [id number] : 1970Acct:[id number] Age/Sex: 54 / FADM Date: 01/08/25 Loc: HO.XRANASTASIIA Attending Dr: Aida CAMACHOC Ordering Physician: Aida Orozco Date of Service: 01/08/25 Procedure(s): XR abdomen min 2V Accession Number(s): [id number] cc: Emilie Davis MD; Aida Orozco EXAMINATION: [...] 01/08/25 1223 DD/ 1050 TD/TT: 01/08/25 1057 Labor Relations Analyst: [facility] External Provider IMG XR PROCEDURES Edited Result - Final * (ABNORMAL) VITAMIN D 25-OH (D2 AND D3) (01/08/2025 10:47 AM EDT) Vitamin D, 25-OH, D2 <4 ng/mL [facility] Comment:This test was sinan turner and its analytical performancecharacteristics have been determined by [employer] [place]. It hasnot been cleared or approved by the U.S. Food and DrugAdministration. This assay has been validated pursuantto the CLIA regulations and is used for clinicalpurposes.THIS TEST WAS PERFORMED AT:[facility] [place] [address]EZITTROMARCI ESTEVEZ MD,PHD Vitamin D, 25-OH, D3 28 ng/mL [facility] Comment:This test was develo ped and its analytical performancecharacteristics have been determined by [facility] [place], [place]. It hasnot been cleared or approved by the U.S. Food and DrugAdministration. This assay has been validated pursuantto the CLIA regulations and is used for clinicalpurposes. Vitamin D, 25-OH, Total 28(A) 30 - 100 ng/mL [facility] Comment:Vitamin D, 25-Hydrox y reports concentrations [...] = 30 ng/mL.For additional information, please refer tohttp://education.YooDeal/faq/CQF117(This link is being provided for informational/educational purposes only.) 01/08/2025 10:4 7 AM EDT 01/08/2025 10:47 AM EDT us Generic External Data Provider LAB BLOOD ORDERAB LES Final Result [facility] [address] [place] [phone] * Sed Rate by Modified Marcela (01/08/2025 10:47 AM EDT) Erythrocyte Sedimentation Rate 9 0 - 20 MM/HR [facility] Comment:Patients with polycy themia and many hemoglobin abnormalitiesmay have depressed sed rates whereas patients with anemiamay have elevated sed rates. 01/08/2025 10:4 7 AM EDT 01/08/2025 10:47 AM EDT Generic External Data Provider LAB BLOOD ORDERAB LES Final Result Performing Organization Address [facility] de Phone Number [facility] [address] [place] [phone] * C-reactive Protein (01/08/2025 10:47 AM EDT) C Reactive Protein <0.10 < or = 0.50 mg/dL [facility] 01/08/2025 10:4 7 AM EDT 01/08/2025 10:47 AM EDT Generic External Data Provider LAB BLOOD ORDERAB LES Final Result Performing Organization Address [facility] de Phone Number [facility] [address] [place] [phone] * Lipase (01/08/2025 10:47 AM EDT) Only the most recent of2 resultswithin the time period is included. Lipase 33 8 - 78 U/L [facility] 01/08/2025 10:4 7 AM EDT 01/08/2025 10:47 AM EDT Generic External Data Provider LAB BLOOD ORDERAB LES Final Result Performing Organization Address [facility] de Phone Number [facility] [address] [place] [phone] * (ABNORMAL) Amylase (01/08/2025 10:47 AM EDT) Amylase 114(H) 28 - 100 U/L [facility] 01/08/2025 10:4 7 AM EDT 01/08/2025 10:47 AM EDT us Generic External Data Provider LAB BLOOD ORDERAB LES Final Result [facility] [address] [place] [phone] * (ABNORMAL) Drug Monitoring, Panel 1, Screen, Urine (12/29/2024 1:09 PM EDT) Pathologist [facility] Opiate Screen Urine Not Detected Not Detect [facility] Comment:Opiate cut-off is 30 0 ng/mL.Positive results are unconfirmed and should not be used fornon-medical purposes. Barbiturates, Urine Not Detected Not Detect [facility] Comment:Barbiturate cut-off is 200 ng/mL.Positive results are unconfirmed and should not be used fornon-medical purposes. Phencyclidine Screen Urine Not Detected Not Detect [facility] Comment:Phencyclidine cut-of f is 25 ng/mL.Positive results are unconfirmed and should not be used fornon-medical purposes. Amphetamine Screen Urine Not Detected Not Detect [facility] Comment:Amphetamine cut-off is 1000 ng/mL.Positive results are unconfirmed and should not be used fornon-medical purposes. Benzodiazepines Screen Urine Not Detected Not Detect [facility] Comment:Benzodiazepine cut-o ff is 200 ng/mL.Positive results are unconfirmed and should not be used fornon-medical purposes. Cocaine Screen Urine Not Detected Not Detect [facility] Comment:Cocaine cut-off is 3 00 ng/mL.Positive results are unconfirmed and should not be used fornon-medical purposes. Cannabinoid Screen Urine POSITIVE(A) Not Detect [facility] Comment:Cannabinoid cut-off is 50 ng/mL.Positive results are unconfirmed and should not be used fornon-medical purposes. Methadone Screen, Urine Not Detected Not Detect ng/mL [facility] Comment:Methadone cut-off is 300 ng/mL.Positive results are unconfirmed and should not be used fornon-medical purposes. FENTANYL URINE Not Detected Not Detect [facility] Comment:Fentanyl cut-off is 1 ng/mL.Positive results are unconfirmed and should not be used fornon-medical purposes. Oxycodone Urine Screen Not Detected Not Detect ng/mL [facility] Comment:Oxycodone cut-off is 100 ng/mL.Positive results are unconfirmed and should not be used fornon-medical purposes. Buprenorphine Screen Not Detected Not Detect ng/mL [facility] Comment:Buprenorphine cut-of f is 5 ng/mL.Positive results are unconfirmed and should not be used fornon-medical purposes. 12/29/2024 1:09 PM EDT 12/29/2024 1:16 PM EDT us Generic External Data Provider LAB URINE ORDERAB LES Final Result Performing Organization Address [facility] Co de Phone Number [facility] [address] [place] [phone] * Urinalysis w/reflex microscopic (12/29/2024 1:09 PM EDT) Color Urine Yellow [facility] Appearance Urine Clear [facility] PH 8.0 5.0 - 9.0 [facility] Glucose Urine UA Negative Negative mg/dL [facility] Urine Blood Negative Negative [facility] Specific [place] - Urine 1.015 1.005 - 1.025 [facility] Urine Protein Negative Neg-Trace mg/dL [facility] Urine Ketones Negative Negative mg/dL [facility] Nitrite Urine Negative Negative [facility] Leukocyte Esterase Urine Negative Negative [facility] 12/29/2024 1:09 PM EDT 12/29/2024 1:16 PM EDT Narrative [facility] - 12/29/2024 1:22 PM EDT Urine, Clean Catch us Generic External Data Provider LAB URINE ORDERAB LES Final Result Performing Organization Address [facility]/ZIP Co de Phone Number [facility] [address] [place] [phone] * CT Abdomen Pelvis w/ Contrast (12/29/2024 12:55 PM EDT) Anatomical Region Laterality Modality Body, Pelvis, Abdomen Computed T omography 12/29/2024 12:5 5 PM EDT Narrative 12/29/2024 1:42 PM EDT [place] [address] [address] Scan Report Signed Patient: Harriet Valdez MR#: [id number] : 1970 Acct:[id number] Age/Sex: 54 / F ADM Date: 12/29/24 Loc: HO.ED Attending Dr: Ordering Physician: Cheryl Cobb DO Date of Service: 12/29/24 Procedure(s): CT abdomen pelvis w IV con Accession Number(s): [id number] cc: Emilie Davis MD; Cheryl Cobb DO Report Number: [id number]: Total DLP = 296.00 mGy-cm EXAMINATION: CT [...] 12/29/24 1340 DD/ 1255 TD/TT: 12/29/24 1329 Labor Relations Analyst: Procedure Note Donotuseinterpreter, Image - 12/29/[address] [place] [address] [address] Scan Report Signed Patient: Harriet Valdez#: [id number] : 1970Acct:[id number] Age/Sex: 54 / FADM Date: 12/29/24 Loc: HO.ED Attending Dr: Ordering Physician: Cheryl Cobb DO Date of Service: 12/29/24 Procedure(s): CT abdomen pelvis w IV con Accession Number(s): [id number] cc: Emilie Davis MD; Cheryl Cobb DO Report Number: [id number]: Total DLP = 296.00 mGy-cm EXAMINATION: CT [...] 12/29/24 1340 DD/ 1255 TD/TT: 12/29/24 1329 Labor Relations Analyst: [facility] External Provider IMG CT PROCEDURES Final Result * Hepatic Function Panel (12/29/2024 10:00 AM EDT) Pathologist [facility] Bilirubin, Total 0.4 0.0 - 1.0 mg/dL [facility] Bilirubin, Direct 0.1 0.0 - 0.5 mg/dL [facility] Aspartate Amino Transferase 26 5 - 31 U/L [facility] Alanine Aminotransferase 19 0 - 31 U/L [facility] Total Protein 7.6 6.5 - 8.0 g/dL [facility] Albumin Level 4.4 3.5 - 5.0 g/dL [facility] Alkaline Phosphatase 90 39 - 117 U/L [facility] 12/29/2024 10:0 0 AM EDT 12/29/2024 10:02 AM EDT Generic External Data Provider LAB BLOOD ORDERAB LES Final Result [facility] [address], [place] [phone] * (ABNORMAL) Basic Metabolic Panel (12/29/2024 10:00 AM EDT) Sodium 142 135 - 145 mmol/L [facility] Potassium 4.0 3.3 - 5.1 mmol/L [facility] Chloride 107 96 - 108 mmol/L [facility] Carbon Dioxide 30(H) 22 - 29 mmol/L [facility] Anion Gap 9(L) 12 - 20 [facility] Urea Nitrogen (BUN) 10 9 - 16 mg/dL [facility] Creatinine, Serum 0.75 0.5 - 1.4 mg/dL [facility] Creatinine Clr Calc Pharmacy 66.2 [facility] Comment:Provided height and weight: 162.56 cm,49.5 kg.eGFR (calculated from the MDRD study equation) and eCrCl(calculated from the Cockcroft-Gault equation) are based ondifferent parameters and may not yield comparable results.If eCrCl result is absurd, please check patient'sheight/weight. Estimated Glomerular Filt Rate >60 [facility] Comment:Chronic Kidney Disea se: Estimated GFR < 60 mL/min/1.20p2Oyjgif Kidney Disease: Estimated GFR < 15 mL/min/1.73m2 Glucose 117(H) 60 - 115 mg/dL [facility] Calcium 9.3 8.4 - 10.2 mg/dL [facility] 12/29/2024 10:0 0 AM EDT 12/29/2024 10:02 AM EDT us Generic External Data Provider LAB BLOOD ORDERAB LES Final Result Performing Organization Address [facility]/ZIP Co de Phone Number [facility] [address] [place] [phone] * (ABNORMAL) Confirmatory Syphilis Profile (11/26/2024 1:24 PM EDT) Rapid Plasma Reagin, Quant Non-React darren Nonreactive [facility] Treponema pallidum Antibody, Particle Agglutination Reactive( A) Nonreactive [facility] Comment:These results must b e reported by the ordering clinician orclinical facility to the [facility] required by state law.Testing performed at: [address] [address] 11/26/2024 1:24 PM EDT 11/27/2024 3:54 AM EDT Emilie Davis MD LAB BLOOD ORDERABLES Final Result Performing Organization Address [facility]/ZIP Co de Phone Number [facility] [address] [place] [phone] * (ABNORMAL) Syphilis Screen (11/26/2024 1:24 PM EDT) Pathologist [facility] Syphilis Screen Reactive( A) Nonreactive [facility] Comment:Reactive specimens a re sent to the [facility] Labfor confirmatory tests. 11/26/2024 1:24 PM EDT 11/26/2024 4:06 PM EDT Emilie Davis MD LAB BLOOD ORDERABLES Final Result Performing Organization Address [facility] Co de Phone Number [facility] [address] [place] [phone] * Hepatitis C Viral RNA, Quantitative, Real-Time PCR (11/26/2024 1:24 PM EDT) [facility] Hepatitis C Viral Load <15 NOT DETECTED NOT DETECTED IU/mL [facility] HCV Log PCR <1.18 NOT DETECTED NOT DETECTED Log IU/mL [facility] Comment:For additional infor mation, please refer tohttp://education.Shopgate/faq/NDF89f3(This link is being provided for informational/educational purposes only.)THIS TEST WAS PERFORMED AT:[facility] [place] [phone] MALDONADO MD 11/26/2024 1:24 PM EDT 11/27/2024 2:28 PM EDT Emilie Davis MD LAB BLOOD ORDERABLES Final Result Performing Organization Address [facility] Co de Phone Number [facility] [address] [place] [phone] * (ABNORMAL) Hepatitis C Antibody with Reflex to HCV, RNA, Quantitative, Real- Time PCR (11/26/2024 1:24 PM EDT) Pathologist [facility] Hepatitis C Antibody Reactive( A) Nonreactive [facility] Comment:Presumptive evidence of antibodies to HCV. 11/26/2024 1:24 PM EDT 11/26/2024 4:06 PM EDT us Emilie Davis MD LAB BLOOD ORDERABLES Final Result Performing Organization Address City/[facility]/ZIP Co de Phone Number [facility] [address] [place] [phone] * Methylmalonic Acid (11/26/2024 1:24 PM EDT) Methylmalonic Acid 197 55 - 335 nmol/L [facility] Comment: Serum methylmalonic acid (MMA) levels [...] outcomes,such as neural tube defects and intrauterine growthrestriction.[facility] utilized Multi-Modal Decomposition(MMD) analysis to establish first and second trimester-specific MMA reference intervals in , as givenbelow:MMA, First trimester (<13 wks gestation): 58-167 nmol/LMMA, Second trimester (13-23 wks gestation):63-241 nmol/LThis test was developed and its analytical performancecharacteristics have been determined by [facility]. It has not been cleared or approved by theFDA. This assay has been validated pursuant to the CLIAregulations and is used for clinical purposes.THIS TEST WAS PERFORMED AT:[facility] [place] [address]RGUTRHBMARCI ESTEVEZ MD,PHD 11/26/2024 1:24 PM EDT 11/26/2024 4:06 PM EDT us Generic External Data Provider LAB BLOOD ORDERAB LES Final Result Performing Organization Address City/[facility]/ZIP Co de Phone Number [facility] [address] [place] [address] [place] [phone] * HIV-1 RNA, Quantitative, Real-Time PCR (11/26/2024 1:24 PM EDT) Pathologist [facility] HIV RNA PCR Qn Copies NOT DETECTED NOT DETECTED copies/mL [facility] HIV RNA PCR Qn Log Copies NOT DETECTED NOT DETECTED [facility] Comment:Result Units: Log co pies/mLThis test was performed using Real-Time Polymerase ChainReaction.Reportable Range: 20 copies/mL to 10,000,000 copies/mL(1.30 log copies/mL to 7.00 log copies/mL).THIS TEST WAS PERFORMED AT:[facility] [address] [phone] MALDONADO MD 11/26/2024 1:24 PM EDT 11/26/2024 4:06 PM EDT Emilie Davis MD LAB BLOOD ORDERABLES Final Result Performing Organization Address City/[facility]/ZIP Co de Phone Number [facility] [address] [place] [phone] * RPR (Monitor) with Reflex to??Titer (11/26/2024 1:24 PM EDT) Pathologist [facility] RPR (Monitor) w/Refl Titer NON-REACTI VE NON-REACT DARREN [facility] Comment:THIS TEST WAS PERFOR MED AT:[facility] [address] [phone] MALDONADO MD Rapid Plasma Reagin Ab Titer TNP [facility] 11/26/2024 1:24 PM EDT 11/26/2024 4:06 PM EDT Emilie Davis MD LAB BLOOD ORDERABLES Final Result Performing Organization Address City/[facility]/ZIP Co de Phone Number [facility] [address] [place] [phone] * (ABNORMAL) Lipid Panel, Standard (07/24/2024 1:36 PM EDT) Triglycerides 141 <150 mg/dL [facility] Comment:Desirable Triglyceri de: less than 150 mg/dLBorderline High Triglyceride 150-199 mg/dLHigh Triglyceride: 200-499 mg/dLVery High Triglyceride: greater than or equal to 5OO mg/dL Cholesterol 205(H) <200 mg/dL [facility] Comment:Desirable Cholestero l: less than 200 mg/dLBorderline High Cholesterol: 200-239 mg/dLHigh Cholesterol: greater than 239 mg/dL LDL Cholesterol Calculated 114(H) <100 mg/dL [facility] Comment:Desirable LDL: less than 100 mg/dLNear Optimal/Above Optimal LDL: 110- 129 mg/dLBorderline High LDL: 130-159 mg/dLHigh LDL: 160-189 mg/dLVery High LDL: greater than or equal to 190 mg/dL HDL Cholesterol 63 >40 mg/dL [facility] Comment:Desirable HDL: great er than 40 mg/dL Note: This HDL assay may give artificially low results in patients with liver disease. 07/24/2024 1:36 PM EDT 07/24/2024 4:20 PM EDT us Generic External Data Provider LAB BLOOD ORDERAB LES Final Result [facility] [address] [place] [phone] * HPV mRNA E6/E7 w/Reflex to HPV Genotypes 16, 18/45 (03/22/2023 11:30 AM EST) HPV nRNA E6/E7 Not Detected Not Detected [facility] Comment:Methodology: Transcr iption-Mediated AmplificationThis assay detects E6/E7 viral messenger RNA (mRNA) from 14high-risk HPV types (16,18,31,33,35,39,45,51,52,56,58,59,66,68).Cervical sources are required for HPV testing.If a vaginal source from a patient who has had atotal hysterectomy with removal of cervix wassubmitted, please contact the testing laboratoryfor alternative testing options.For additional information, please refer tohttp://education.Shopgate/faq/ESP748k5(This link if provided for information/educational purposes only.)THIS TEST WAS PERFORMED AT:[facility] [place] [phone] MALDONADO MD HPV mRNA E6/E7 TNP [facility] HPV 16 RNA TNP [facility] HPV 18/45 RNA TNP [facility] 03/22/2023 11:3 0 AM EST 03/25/2023 12:20 PM EST Emilie Davis MD LAB CYTOLOGY ORDERABLES nal Result [facility] [address] [place] [phone] * Pap Smear (03/22/2023 11:30 AM EST) 03/22/2023 11:3 0 AM EST 03/25/2023 12:20 PM EST Narrative [facility] - 04/11/2023 11:26 AM EST ----- ------- Name: Harriet Valdez Age/Sex: 53/F : 1970 [id number] Unit#: [id number] Attend Dr: RADHA VILLAREAL MD Re03/22/23 Status: DEP [facility]ch: ----- ------- SPEC : [id number] RECD: 03/25/23 STATUS: JANIE DUNLAP NUM: [id number] AMBREEN: 03/22/[address] [facility] [address]: Emilie Davis MD ENTERED: 03/25/236929 SP TYPE: Pap Smr OT DR: ORDERED: Pap Smear Interpretation Satisfactory for evaluation. Negative for intraepithelial lesion or malignancy. HPV mRNA E6/E7: NOT DETECTED This assay detects E6/E7 viral messenger RNA (mRNA) from 14 high-risk HPV types (16, 18, 31, 33, 35, 39, 45, 51, 52, 56, 58, 59, 66, 68) HPV testing performed by [facility], [place], [place]. See reference laboratory portion of the EMR for entire report. Clinical Information LMP: Unknown date Previous PAP test: Unknown date, WNL Other history: Pt on testosterone, surgical post menopause Material Received ThinPrep-Cervical ----- ------- Signed (signature on file) SERENA Alejandro (ASCP) 04/11/23 1126 ----- ------- END OF REPORT Emilie Davis MD LAB CYTOLOGY ORDERABLES Fi nal Result [facility] [address] [place] [phone] * Colonoscopy (01/30/2018) Colonoscopy normal Historical Provider HEALTH MAINTENANCE Final Result from Last 3 Months or Most Recently Relevant to Health Maintenance Insurance [facility] [email or web address] Advance Directives Documents on File Type Date Recorded Patient Tire Spotter Expl anation Advance Directives and Living Will 03/16/2024 Health Care Proxy 03/16/24 Care Teams Credit Card Interviewer Relationship Specialty Start Date End Date Emilie Davis MD [address] [place] [phone] PCP - General Family Medicine 05/13/18 Morales Echavarria FNP [address] [place] [phone] Nurse Practitioner Family Medicine 04/16/23 Aida Orozco [address] [place] [phone] Gastroenterology 05/26/24 Fred Castanon [address] [place] [phone] 07/21/24
--- OUTSIDE RECORDS SUMMARY | 2025-01-27 14:46 | XMS_ITS | Encounter Summary ---
Author Organization [employer] [facility] Address [address] [facility] 7t [place] [address] Care Team Providers Care Motion Graphics Designer Name Role Phone Emilie Davis MD Primary Care Provider +1- [phone] Morales Echavarria PLYWOOD PATCHER Unavailable Unavailable August Unavailable Fred Castanon Unavailable Reason for Visit * Reason Onset Date Comments Med Refill 04/22/2024 Encounter Details Date Type Department Care Team (Late st Contact Info) Description 04/22/2024 Telephone [facility] [address] [place] [address] Emilie Davis MD [address] [place] [address] Med Refill Social History Tobacco Use Types [...] 200 MG/5ML suspension To be sent to: [facility] - [place], [place] - [address] [facility] documented in this encounter Plan of Treatment Upcoming Encounters Date Type Department Care Team (Late st Contact Info) Description 03/03/2025 9:30 AM EDT Office Visit [facility] [address] [place] [address] Emilie Davis MD [address] [place] [address] 03/24/2025 11:00 AM EST Clinical Support [facility] [address] [place] [address] Medina Lewis, RN [address] [place], [place] 06/04/2025 3:00 PM EST Office Visit [facility] [address] [place] [address] Merissa Donis, OD [address] [place] [address] documented as of this encounter Visit Diagnoses Not on filedocumented in this encounter Additional Health Concerns Assessment Noted Time PHQ-9 Depression Total Score: 3 04/30/20 9:17 AM EST documented as of this encounter Care Teams Motion Graphics Designer Relationship Specialty Start Date End Date Emilie Davis MD [address] [place] [address] PCP - General Family Medicine 05/13/18 Morales Echavarria FNP [address] [place] [address] Nurse Practitioner Family Medicine 04/16/23August [address] [place] [address] Gastroenterology 05/26/24 Fred Castanon [address] [place] [address] 07/21/24 documented as of this encounter
--- OUTSIDE RECORDS SUMMARY | 2025-01-27 14:46 | XMS_ITS | Encounter Summary ---
Author Organization [employer] Address [address] [facility] 7t [place] [address] Care Team Providers Care Porter Sample Case Name Role Phone Emilie Davis MD Primary Care Provider +1- [phone] Morales Echavarria Unavailable Unavailable August Unavailable Fred Castanon Unavailable Reason for Visit * Reason Comments Med Refill Encounter Details Date Type Department Care Team (Late st Contact Info) Description 01/01/2023 Refill [facility] [address] [place] [address] Emilie Davis MD [address] [place] [address] Social History Tobacco Use Types Packs/Day Years [...] 8:54 AM EDT T/C to patient via grounds keeper regarding x-ray result. No answer, message left [...] Description 03/03/2025 9:30 AM EDT Office Visit [facility] [address] [place] [address] Emilie Davis MD [address] [place] [address] 03/24/2025 11:00 AM EST Clinical Support [facility] [address] [place] [address] Medina Lewis, RONALD [address] [place] [address] 06/04/2025 3:00 PM EST Office Visit [facility] [address] [place] [address] Merissa Donis, OD [address] [place] [address] documented as of this encounter Visit Diagnoses Not on filedocumented in this encounter Additional Health Concerns Assessment Noted Time PHQ-9 Depression Total Score: 19 023 9:24 AM EDT documented as of this encounter Care Teams Porter Sample Case Relationship Specialty Start Date End Date Emilie Davis MD [address] [place] [address] PCP - General Family Medicine 05/13/18 Morales Echavarria FNP [address] [place] [address] Nurse Practitioner Family Medicine 04/16/[address] [place] [address] Gastroenterology 05/26/24 Fred Castanon [address] [place] [address] 07/21/24 documented as of this encounter
--- OUTSIDE RECORDS SUMMARY | 2025-01-27 14:46 | XMS_ITS | Encounter Summary ---
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 on file Not on file Not on file documented as of this encounter Plan of Treatment Upcoming Encounters Date Type Department Care Team ([facility] st Contact Info) Description 03/03/2025 9:30 AM EDT Office Visit [facility] [address] [place] [address] Emilie Davis MD [address] [place] [address] 03/24/2025 11:00 AM EST Clinical Support [facility] [address] [place] [address] Medina Lewis, RONALD [address] [place] [address] 06/04/2025 3:00 PM EST Office Visit [facility] [address] [place] [address] Merissa Donis, OD [address] [place] [address] documented as of this encounter Visit Diagnoses Not on filedocumented in this encounter Additional Health Concerns Assessment Noted Time PHQ-9 Depression Total Score: 3 04/30/20 23 9:17 AM EST documented as of this encounter Care Teams Label Designer Relationship Specialty Start Date End Date Emilie Davis MD [address] [place] [address] PCP - General Family Medicine 05/13/18 Morales Echavarria FNP [address] [place] [address] Nurse Practitioner Family Medicine 04/16/23 Aida Orozco [address] [place] [address] Gastroenterology 05/26/24 Fred Castanon [address] [place] [address] 07/21/24 documented as of this encounter
--- OUTSIDE RECORDS SUMMARY | 2025-01-27 14:46 | XMS_ITS | Encounter Summary ---
Author Organization [employer] Address [address] [facility] 7t [place] [address] Care Team Providers Care Machine Pie Maker Name Role Phone Emilie Davis MD Primary Care Provider +- [phone] Morales Echavarria CLINICAL PSYCHIATRIST Unavailable Unavailable August Unavailable Fred Castanon Unavailable Encounter Details Date Type Department Care Team (Late st Contact Info) Description 04/22/2022 Orders Only [facility] [address] [place], [place] [phone] Emilie Davis MD [address] [place] [address] [phone] HSV (herpes simplex virus) anogenital infection (Primary [...] Description 03/03/2025 9:30 AM EDT Office Visit [address] [phone] Emilie Davis MD [address] [place] [address] [phone] 03/24/2025 11:00 AM EST Clinical Support [address] [place] [address] Medina Lewis, RN 230 [place] [address] 06/04/2025 3:00 PM EST Office Visit [facility] [address] [place] [address] Merissa Donis, OD [address] [place] [address] documented as of this encounter Visit Diagnoses Diagnosis HSV (herpes simplex virus) anogenital infection- Primary Herpes simplex without mention of complication documented in this encounter Care Teams Machine Pie Maker Relationship Specialty Start Date End Date Emilie Davis MD [address] [place] [address] PCP - General Family Medicine 05/13/18 Morales Echavarria FNP [address] [place] [address] Nurse Practitioner Family Medicine 04/16/23August [address] [place] [address] [address] [place] [address] Gastroenterology 05/26/24 Fred Castanon [address] [place] [address] 07/21/24 documented as of this encounter
--- OUTSIDE RECORDS SUMMARY | 2025-01-27 14:46 | XMS_ITS | Encounter Summary ---
Author Organization [employer] Address [address] [facility] 7t [place] [address] Care Team Providers Care Insurance Broker Name Role Phone Emilie Davis MD Primary Care Provider +1- [phone] Morales Echavarria CRUSHER Unavailable Unavailable August Unavailable Fred Castanon Unavailable Reason for Visit * Reason Onset Date Comments Hospital Follow-up 01/04/2025 No Show 01/04/2025 Pt no show for h df Encounter Details Date Type Department Care Team (Late st Contact Info) Description 01/04/2025 Telephone [facility] [address] [place], [place] [phone] Emilie Davis MD [address] [place], [place] [phone] Hospital Follow-up; No Show (Pt no show [...] 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 Hospital: [facility] Date of admission: 12/29 Discharge date: 12/31 Diagnosed: Gastritis and inflammation of the pancreas *Send message to [place] Clinical Care Coordinators documented in this encounter Plan of Treatment Upcoming Encounters Date Type Department Care Team (Late st Contact Info) Description 03/03/2025 9:30 AM EDT Office Visit [facility] [address] [place] [address] Emilie Davis MD [address] [place] [address] 03/24/2025 11:00 AM EST Clinical Support [facility] [address] [place] [address] Medina Lewis, RONALD [address] [place] [address] 06/04/2025 3:00 PM EST Office Visit [facility] [address] [place] [address] Merissa Donis, GINA [address] [place] [address] documented as of this encounter Visit Diagnoses Not on filedocumented in this encounter Additional Health Concerns Assessment Noted Time PHQ-9 Depression Total Score: 3 04/30/20 9:17 AM EST documented as of this encounter Care Teams Insurance Broker Relationship Specialty Start Date End Date Emilie Davis MD [address] [place] [address] PCP - General Family Medicine 05/13/18 Morales Echavarria FNP [address] [place] [address] Nurse Practitioner Family Medicine 04/16/[address] [place] [address] Gastroenterology 05/26/[address] [place] [address] 07/21/24 documented as of this encounter
--- OUTSIDE RECORDS SUMMARY | 2025-01-27 14:46 | XMS_ITS | Encounter Summary ---
Author Organization [employer] Address [address] [facility] 7t [place] [address] Care Team Providers Care Area Coordinator Name Role Phone Emilie Davis MD Primary Care Provider +1- [phone] Morales Echavarria Unavailable Unavailable August Unavailable Fred Castanon Unavailable Reason for Visit * Reason Comments Med Refill Encounter Details Date Type Department Care Team (Late st Contact Info) Description 01/17/[address] [facility] [address] [place] [address] Emilie Davis MD [address] [place], [place] [phone] 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) Social [...] Description 03/03/2025 9:30 AM EDT Office Visit [facility] [address] [place] [address] Emilie Davis MD [address] [place] [address] 03/24/2025 11:00 AM EST Clinical Support [facility] [address] [place] [address] Medina Lewis, RN [address] [place] [address] 06/04/2025 3:00 PM EST Office Visit [facility] [address] [place] [address] Merissa Donis, OD [address] [place] [address] documented as of this encounter Visit Diagnoses Diagnosis Gender 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- Primary documented in this encounter Additional Health Concerns Assessment Noted Time PHQ-9 Depression Total Score: 3 04/30/20 23 9:17 AM EST documented as of this encounter Care Teams Area Coordinator Relationship Specialty Start Date End Date Emilie Davis MD [address] [place] [address] PCP - General Family Medicine 05/13/18 Morales Echavarria FNP [address] [place] [address] Nurse Practitioner Family Medicine 04/16/23 Aida Orozco [address] [place] [address] Gastroenterology 05/26/24 Fred Castanon [address] [place] [address] 07/21/24 documented as of this encounter
[2025-01-28 16:54] LABS: HIV RNA PCR Qn Copies NOT DETECTED copies/mL (NOT DETECTED); HIV RNA PCR Qn Log Copies NOT DETECTED (NOT DETECTED)
== END 2025-01-27 11:24 | disposition home or self-care (01) ==
LOC: HO.HHCL 11:23
PROVIDERS: PCP Family Medicine; Referring Provider Nurse Practitioner Family; Visit Provider Family Medicine
DX: Z11.4 Encounter for screening for human immunodeficiency virus [HIV] (principal); Z79.899 Other long term (current) drug therapy
CPT/HCPCS: 36415; 80053; 85025; 87536

== ENCOUNTER 2025-01-28 15:07 | Outpatient (AMB) | payer OTHER, SELFPAY ==
--- OUTSIDE RECORDS SUMMARY | 2025-01-27 11:00 | XMS_ITS | Encounter Summary ---
Author Organization [employer] Address [address] [facility] [address] 7t [place] [address] Care Team Providers Care Veneer Jointer Operator Name Role Phone [place], Emilie MARISCAL Primary Care Provider +1- [phone] [place] Echavarria Unavailable Unavailable August Unavailable Fred Castanon Unavailable Encounter Details Date Type Department Care Team (Latest Contact Info) Description 01/27/2025 11:00 AM EDT Clinical Support [facility] 230 [place] [address] Medina Lewis, RONALD 230 [place] [address] On pre-exposure prophylaxis for HIV (Primary Dx) [...] Industry Job Start Date Job End Date 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] documented as of this encounter Care Teams Veneer Jointer Operator Relationship Specialty Start Date End Date Emilie Davis MD [address] [place] [address] PCP - General Family Medicine 05/13/18 [place] Echavarria FNP [address] [place] [address] Nurse Practitioner Family Medicine 04/16/23OrozcoAugust [address] [place] [address] Gastroenterology 05/26/24 Fred Castanon [address] [place] [address] 07/21/24 documented as of this encounter
--- NOTE | 2025-01-28 15:10 | MHC.OFFVIS ---
Vital Signs 01/28/25 15:11 Height 5 ft 5 in Weight 107 lb 2.314 oz BMI 17.8 BP 105/71 Blood Pressure Location Lt brachial Position Sitting Pulse 75 Intake Visit Reasons: EGD with dilation Intake Note: Patient in office today in follow up s/p EGD with dilation. CC: Patient reports that he was told today that a recent imaging done showed a mass on his pancreas. Pt states that the esophagus feels better since after the EGD with dilation but it still feels a little bit tight from the throat. Online Merchandising Specialist Required: No Accompanied by: Self / Same As Patient Allergies black pepper Allergy (Severe, Verified 01/28/25 15:26) Anaphylaxis Penicillins (PENICILLINS) Allergy (Intermediate, Verified 01/28/25 15:26) HIVES,SWELLING sumatriptan (SUMATRIPTAN) Adverse Reaction (Severe, Verified 01/28/25 15:26) PT STATES HEART ATTACK HPI HPI EGD with dilation: Details: Assessment & Plan (1) Dysphagia: Comment: History of EGD with dilation x2 Savary(Desilejose-2017) dilation as well as balloon dilation(Mukesh-2018) Chew well, eat slowly, EGD possible dilation Code(s): R13.10 - Dysphagia, unspecified Category: Medical (2) Bile reflux gastritis: Code(s): K29.60 - Other gastritis without bleeding Category: Medical (3) Bile reflux esophagitis: Code(s): K21.00 - Gastro-esophageal reflux disease with esophagitis, without bleeding Category: Medical (4) GERD (gastroesophageal reflux disease): Code(s): K21.9 - Gastro-esophageal reflux disease without esophagitis Category: Medical (5) Acute pancreatitis: Code(s): K85.90 - Acute pancreatitis without necrosis or infection, unspecified Category: Medical (6) Chronic constipation: Code(s): K59.09 - Other constipation Category: Medical Orders: Orders Amylase Today K85.90 - Acute pancreatitis without necrosis or infection, unspecified Lipase Today K85.90 - Acute pancreatitis without necrosis or infection, unspecified XR abdomen w decubitus Today K59.09 - Other constipation Medications: New linaclotide (Linzess) 290 mcg PO QAM 30 caps 0RF 30 days [id number] 3,000-9,500- 15,000 unit (Creon) do not exceed 10,000 unit/kg lipase per 24 hrs 2 caps PO BID 120 caps 6RF 30 days K59.04 - Chronic idiopathic constipation famotidine (Pepcid) 40 mg PO BEDTIME 30 tabs 6RF Patient Instructions: 1. Suspenda el omeprazol. 2. Comience con famotidina antes de acostarse. 3. Aumente la dosis de Linzess a 290 mcg. Por favor, cons?gala en la farmacia y comience. 4. Suspenda el sucralfato. 5. Vaya hoy mismo al laboratorio para an?lisis de georgina y a arelis radiograf?a abdominal. 6. Galeano degluci?n con bario es 01/14 y galeano resonancia magn?shira es 01/19. Por favor, consiga los horarios a mi personal. 7. Comience con arelis nueva medcidina llamada Creon para apoyar el p?ncreas. [place] 2 c?psulas dos veces al d?a. Puede abrirlas y espolvorearlas sobre la comida, postre, etc.8. Quiero verle en 2 semanas Laboratory Tests 01/08/25 10:47 C-Reactive Protein < 0.10 Amylase 114 H Lipase 33 25-OH Vitamin D Total 28 L X-RAY OF THE ABDOMEN 01/08/2025 FINDINGS: Supine and upright views of the abdomen are submitted. The bowel gas pattern is unremarkable, without evidence of mechanical obstruction. There is no free intraperitoneal gas. There is a large amount stool throughout the colon. There is a surgical clip in the right upper quadrant. There is a calcified granuloma at the right lung base. There are no abnormal soft tissue masses. The bones are intact. XR/XR abdomen min 2V IMPRESSION: Large amount of stool throughout the colon. EGD 01/15/2025 Findings: Larynx: Normal Esophagus: GE junction at 38 cms. Mildly tortuous esophagus with decreased peristalsis No obvious stricture noted and endoscope was passed into the stomach with minimal resistance Balloon dilation was performed with 16.5 mm Stomach: Contained a large amount of undigested food and was not examined. Duodenum: Not examined Intervention: Biopsies as noted above Impression and Post Procedure Diagnosis: Endoscopy Findings: ESOPHAGUS: Mildly tortuous esophagus with decreased peristalsis No obvious stricture noted and endoscope was passed into the stomach with minimal resistance Balloon dilation was performed with 16.5 mm (49.5 F) STOMACH: Not examined due to large amount of undigested food DUODENUM: Not examined Plan: Pt advised a liquid diet tonight and advance to a soft diet in the am Pt has a FU appointment on 01/28/25 with Aida Orozco NP. Recommend further evaluation with esophageal manometry to rule out achalasia. (Of note - pt had two EGDs at [facility] in 2018 for evaluation of dysphagia and no stricture was seen) Above findings were reviewed with the patient and relevant handouts were given and the discharge area. BIOPSIES SHOWED: A. Esophagus, distal, biopsy: Squamous mucosa within normal limits; negative for inflammation (including intraepithelial eosinophils), fungal organisms, intestinal metaplasia and dysplasia. B. Esophagus, proximal, biopsy: Squamous mucosa within normal limits; negative for inflammation (including intraepithelial eosinophils), fungal organisms, intestinal metaplasia and dysplasia. MRCP 01/20/2025 Findings: Hypoenhancing predominantly solid mass 2.5 x 2.1 x 2.7 cm (TRX AP X cc) of pancreatic head/uncinate process dorsally, series 5, image 26, hypointense on T1, mildly hyperintense relative to remainder pancreatic parenchyma on T2, postcontrast images demonstrates delayed hypoenhancement, slightly elongated cystic foci 2 mm and 5 mm within the mass, it is compressing on the distal CBD and causing moderate to severe stenosis about 1.5 cm above duodenal insertion, the upstream extrahepatic and intrahepatic ducts are mildly dilated, cystic duct remnant is also dilated. MPD is not dilated. The mass is also mildly compressing on the IVC, close to SMV with preserved tissue plane, no apparent involvement of SMA, celiac or SMV. Status post cholecystectomy. Liver is normal in size, no steatosis. 6 mm T2 bright lesion of the right hepatic dome segment 8, hypointense on T1 with early peripheral discontinuous nodular enhancement and gradual centripetal contrast filling, consistent with hemangioma, adjacent segment 8 3 mm nonenhancing cystic focus. Patent hepatic and portal veins. Spleen, adrenal glands, kidneys are unremarkable. Diverticulosis of the colon, negative for acute diverticulitis, remaining GI tract is unremarkable. Unremarkable vasculature. No bulky lymph nodes. No ascites. Unremarkable lung bases. No acute osseous abnormality or suspicious osseous lesion. Impression: 1. Pancreatic mass of dorsal head/uncinate process is compressing on distal CBD and causing moderate to severe stenosis, mild upstream intrahepatic and extrahepatic bile duct dilatation, concerning for malignancy. Recommend parachute repairer consultation, ERCP and tissue sampling. 2. Subcentimeter right hepatic hemangioma and cyst. 3. Diverticulosis coli. TODAY'S VISIT [facility] Medical History (Updated 01/28/25 @ 15:50 by MIHIR Perez) Pancreatic mass Erosive esophagitis Abdominal pain Sleep difficulties Upper abdominal pain Vomiting LEE (dyspnea on exertion) Arthritis Occipital neuralgia of left side New onset headache Diverticulosis of colon Chronic, continuous use of opioids Chronic GERD Palpitations Hypotension History of palpitations Dysphagia Disc degeneration, lumbar Spondylosis of lumbar spine Depression Past heart attack Hyperlipemia Erosive osteoarthritis of hands, bilateral GERD (gastroesophageal reflux disease) Hypertension Surgical History History of cholecystectomy Hx of colonoscopy History of esophagogastroduodenoscopy (EGD) H/O bilateral mastectomy H/O: hysterectomy Family History Mother Hypertension Breast cancer Maternal Grandmother Myocardial infarct Skin cancer Sister Heart problem Breast cancer Family/Other Esophageal cancer Social History Household Members: Family Housing: Apartment Are you a primary hospice care sales consultant to a significant other at home: No Do you presently have visiting nurse or other home services: No Alcohol intake: never Patient Tobacco Use Status: Former Tobacco user Substance Use Type: Marijuana service: No Review of Systems Const Denies fatigue, Denies fever(s), Denies night sweats, Reports poor appetite and Reports weight loss Eyes Details: glasses Reports requires corrective lenses ENT Reports Normal hearing present, Denies dental pain, Reports dysphagia, Denies hearing loss, Denies mouth pain, Denies odynophagia, Denies throat swelling, Denies tongue swelling and Reports other (Dentition adequate) Card Reports no additional complaints Resp Reports no additional complaints GI Details: Reports abdominal pain, Denies melena, Reports bloating, Denies hematochezia, Reports constipation, Denies GI cramping, Reports dysphagia, Denies excessive flatus, Reports early satiety, Reports heartburn, Denies diarrhea, Denies nausea, Denies odynophagia, Denies vomiting and Denies hematemesis Skin/Breast Denies pruritus, Denies lesions, Denies rash and Denies jaundice Neuro Reports Normal hearing present and Denies Abnormal speech present Endo Denies fatigue Aller/Immun Denies throat swelling and Denies tongue swelling Physical Exam Vital Signs: Last Vital Signs Pulse 75 01/28/25 15:11 BP 105/71 01/28/25 15:11 BMI result Body Mass Index 17.8 Const General: cooperative, no acute distress, well developed and well groomed Nutritional Appearance: well nourished and thin Orientation/consciousness: oriented to person, oriented to place and oriented to time Limitations: language barrier HEENT Head: Yes normocephalic and Yes atraumatic Eyes General: appearance normal, both eyes and all related structures Pupils: Equal, round and reactive pupils present Neck Neck: Yes normal visual inspection and Yes no lymphadenopathy Thyroid: Thyroid normal Resp Effort & Inspection: normal respiratory effort and able to speak in complete sentences Auscultation: clear to auscultation bilaterally Cardio Rate: regular rate Rhythm: regular rhythm Heart sounds: Normal, physiologic split S2 sound present Peripheral pulses: radial pulses present and posterior tibial pulses present GI Inspection: No distended and No Abdominal panniculus present Palpation (GI): Soft to palpation, Tenderness to palpation present (GI) in the RUQ, no guarding, not rigid and No hepatosplenomegaly present Percussion: Yes normal to percussion Auscultation: normal bowel sounds Rectal Exam - Female: deferred Skin General skin exam: no rashes or lesions noted, turgor normal, skin not dry, no jaundice, No spider nevi and no striae Rashes: no rashes Nails: normal Neuro General: oriented to person, oriented to place and oriented to time Cranial nerves: Yes Equal, round and reactive pupils present and Yes Normal hearing present Speech: No Abnormal speech present Extrem General: Yes normal to inspection, No clubbing, No cyanosis and No edema Psych Appearance: grossly normal and well kempt Mental Status: mental status grossly normal Speech and movement: Normal speech and movement present Affect: normal affect Attitude: cooperative Thought process: Normal thought process present and not confabulating Thought content: Normal thought content present Insight: Good insight present (Psych) Judgement: Good judgement present (Psych) Results Reviewed Results Reviewed: Laboratory Tests 01/08/25 10:47 C-Reactive Protein < 0.10 Amylase 114 H Lipase 33 25-OH Vitamin D Total 28 L X-RAY OF THE ABDOMEN 01/08/2025 FINDINGS: Supine and upright views of the abdomen are submitted. The bowel gas pattern is unremarkable, without evidence of mechanical obstruction. There is no free intraperitoneal gas. There is a large amount stool throughout the colon. There is a surgical clip in the right upper quadrant. There is a calcified granuloma at the right lung base. There are no abnormal soft tissue masses. The bones are intact. XR/XR abdomen min 2V IMPRESSION: Large amount of stool throughout the colon. EGD 01/15/2025 Findings: Larynx: Normal Esophagus: GE junction at 38 cms. Mildly tortuous esophagus with decreased peristalsis No obvious stricture noted and endoscope was passed into the stomach with minimal resistance Balloon dilation was performed with 16.5 mm Stomach: Contained a large amount of undigested food and was not examined. Duodenum: Not examined Intervention: Biopsies as noted above Impression and Post Procedure Diagnosis: Endoscopy Findings: ESOPHAGUS: Mildly tortuous esophagus with decreased peristalsis No obvious stricture noted and endoscope was passed into the stomach with minimal resistance Balloon dilation was performed with 16.5 mm (49.5 F) STOMACH: Not examined due to large amount of undigested food DUODENUM: Not examined Plan: Pt advised a liquid diet tonight and advance to a soft diet in the am Pt has a FU appointment on 01/28/25 with Aida Orozco NP. Recommend further evaluation with esophageal manometry to rule out achalasia. (Of note - pt had two EGDs at [facility] in 2018 for evaluation of dysphagia and no stricture was seen) Above findings were reviewed with the patient and relevant handouts were given and the discharge area. BIOPSIES SHOWED: A. Esophagus, distal, biopsy: Squamous mucosa within normal limits; negative for inflammation (including intraepithelial eosinophils), fungal organisms, intestinal metaplasia and dysplasia. B. Esophagus, proximal, biopsy: Squamous mucosa within normal limits; negative for inflammation (including intraepithelial eosinophils), fungal organisms, intestinal metaplasia and dysplasia. MRCP 01/20/2025 Findings: Hypoenhancing predominantly solid mass 2.5 x 2.1 x 2.7 cm (TRX AP X cc) of pancreatic head/uncinate process dorsally, series 5, image 26, hypointense on T1, mildly hyperintense relative to remainder pancreatic parenchyma on T2, postcontrast images demonstrates delayed hypoenhancement, slightly elongated cystic foci 2 mm and 5 mm within the mass, it is compressing on the distal CBD and causing moderate to severe stenosis about 1.5 cm above duodenal insertion, the upstream extrahepatic and intrahepatic ducts are mildly dilated, cystic duct remnant is also dilated. MPD is not dilated. The mass is also mildly compressing on the IVC, close to SMV with preserved tissue plane, no apparent involvement of SMA, celiac or SMV. Status post cholecystectomy. Liver is normal in size, no steatosis. 6 mm T2 bright lesion of the right hepatic dome segment 8, hypointense on T1 with early peripheral discontinuous nodular enhancement and gradual centripetal contrast filling, consistent with hemangioma, adjacent segment 8 3 mm nonenhancing cystic focus. Patent hepatic and portal veins. Spleen, adrenal glands, kidneys are unremarkable. Diverticulosis of the colon, negative for acute diverticulitis, remaining GI tract is unremarkable. Unremarkable vasculature. No bulky lymph nodes. No ascites. Unremarkable lung bases. No acute osseous abnormality or suspicious osseous lesion. Impression: 1. Pancreatic mass of dorsal head/uncinate process is compressing on distal CBD and causing moderate to severe stenosis, mild upstream intrahepatic and extrahepatic bile duct dilatation, concerning for malignancy. Recommend parachute repairer consultation, ERCP and tissue sampling. 2. Subcentimeter right hepatic hemangioma and cyst. 3. Diverticulosis coli Barium swallow 01/14/2025 IMPRESSION: High-grade stenosis/narrowing distal esophagus likely junction resulting in ballooning of mid and distal esophagus with thick barium and solid food which clears following oral administration of water. 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 The patient is still is experiencing significant constipation despite Linzess 290. I suggest that we add bisacodyl 2 at nighttime and will continue to titrate this treatment. He continues to have significant feeling of pressure and bloating at times with certain foods. This severe chest pain/pressure has been alleviate and since the endoscopy. This was ordered emergently because chest x-ray showed possible esophageal achalasia with ballooning of the esophagus. After the hospitalization for acute pancreatitis an MRI was ordered. Sadly, this study shows a mass at the head of the pancreas that is putting pressure on the bile ducts and has a potential contribution to the swallowing problems. I advise him of the findings and that we need to get him urgently to a tertiary facility where they can do either an endoscopic ultrasound or an ERCP biopsy to determine the nature of the mass. I hope that it is not pancreatic cancer. He confirms that he would be able to make it to [facility] if we can get him in there and I think that is the better facility for the director long term care treatment plan. They also would be a quick to do an esophageal manometry to tease out potential achalasia. Endoscopies have never show any stricture or reason for the dysphagia but there does appear to be a significant esophageal movement problem. He is appreciative of all we have done and is hopeful of a good recovery but is aware that the mass could be a very serious diagnosis. Return office visit in 3 weeks to adjust the constipation treatment Orders: Orders Carbohydrate Antigen 19-9 Today K86.89 - Other specified diseases of pancreas Referrals Gastroenterology Referral K22.0 - Achalasia of cardia, K86.89 - Other specified diseases of pancreas, R63.4 - Abnormal weight loss Medications: New bisacodyl (Dulcolax (bisacodyl)) 10 mg (2 x 5 mg) PO BEDTIME 60 tabs 6RF 30 days Coding Level of Care Code Est Pt Level 4 (66720) Diagnoses Pancreatic mass K86.89 Abnormal weight loss R63.4 Achalasia K22.0 Time Spent (min) 38
[2025-01-28 15:11] VITALS: BP 105/71; PULSE 75; BMI 17.8
--- OUTSIDE RECORDS SUMMARY | 2025-01-28 16:42 | XMS_ITS | Encounter Summary ---
Author Organization [employer] [facility] Address [address] [place] [address] Care Team Providers Care Paint Stock Clerk Name Role Phone Emilie Davis MD Primary Care Provider [phone]- [phone] Morales Echavarria GAS AND OIL CHECKER Unavailable Unavailable August Unavailable Fred Castanon Unavailable Reason for Visit * Reason Onset Date Comments Med Refill 04/22/2024 Encounter Details Date Type Department Care Team (Late st Contact Info) Description 04/22/2024 Telephone [facility] [address] [place] [address] Emilie Davis MD [address] [place] [address] Med Refill Social History Tobacco Use Types [...] 200 MG/5ML suspension To be sent to: [facility] - [place], [place] - [address] [facility] documented in this encounter Plan of Treatment Upcoming Encounters Date Type Department Care Team (Late st Contact Info) Description 03/03/2025 9:30 AM EDT Office Visit [facility] [address] [place] [address] Emilie Davis MD [address] [place] [address] 03/24/2025 11:00 AM EST Clinical Support [facility] [address] [place] [address] Medina Lewis, RN [address] [place], [place] 06/04/2025 3:00 PM EST Office Visit [facility] [address] [place] [address] Merissa Donis, OD [address] [place] [address] documented as of this encounter Visit Diagnoses Not on filedocumented in this encounter Additional Health Concerns Assessment Noted Time PHQ-9 Depression Total Score: 3 04/30/20 9:17 AM EST documented as of this encounter Care Teams Paint Stock Clerk Relationship Specialty Start Date End Date Emilie Davis MD [address] [place] [id number] PCP - General Family Medicine 05/13/18 Morales Echavarria FNP [address] [place] [address] Nurse Practitioner Family Medicine 04/16/23August [address] [place] [address] Gastroenterology 05/26/24 Fred Castanon [address] [place] [phone] 07/21/24 documented as of this encounter
--- OUTSIDE RECORDS SUMMARY | 2025-01-28 16:42 | XMS_ITS | Encounter Summary ---
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 file Not on file Not on file documented as of this encounter Plan of Treatment Upcoming Encounters Date Type Department Care Team ([facility] st Contact Info) Description 03/03/2025 9:30 AM EDT Office Visit [facility] [address] [place] [phone] Emliie Davis MD [address] [place] [address] 03/24/2025 11:00 AM EST Clinical Support [facility] [address] [place] [address] Medina Lewis, RONALD [address] [place] [address] 06/04/2025 3:00 PM EST Office Visit [facility] [address] [place] [address] Merissa Donis, OD [address] [place] [address] documented as of this encounter Visit Diagnoses Not on filedocumented in this encounter Additional Health Concerns Assessment Noted Time PHQ-9 Depression Total Score: 3 04/30/20 23 9:17 AM EST documented as of this encounter Care Teams Police Booking Officer Relationship Specialty Start Date End Date Emilie Davis MD [address] [place] [phone] PCP - General Family Medicine 05/13/18 Morales Echavarria FNP [address] [place] [address] Nurse Practitioner Family Medicine 04/16/23 Aida Orozco [address] [place] [address] Gastroenterology 05/26/24 Fred Castanon [address] [place] [address] 07/21/24 documented as of this encounter
--- OUTSIDE RECORDS SUMMARY | 2025-01-28 16:42 | XMS_ITS | Encounter Summary ---
Author Organization [employer] [facility] Address [address] [facility] [address] [place] [address] Care Team Providers Care Manager Cardiology Name Role Phone Emilie Davis MD Primary Care Provider [phone]- [phone] Morales Echavarria [employer] Unavailable Unavailable August Unavailable Fred Castanon Unavailable Encounter Details Date Type Department Care Team (Late st Contact Info) Description 05/27/[address] [phone] Emilie Davis MD [address] [place] [address] [phone] Social History Tobacco Use Types Packs/Day Years [...] Description 03/03/2025 9:30 AM EDT Office Visit [address] [phone] Emilie Davis MD [address] [place] [address] [phone] 03/24/2025 11:00 AM EST Clinical Support [address] [phone] Medina Lewis RONALD [address] [place] [address] 06/04/2025 3:00 PM EST Office Visit [facility] [address] [place] [address] Merissa Donis, OD [address] [place] [address] documented as of this encounter Procedures Procedure [...] ORDERABLES F inal Result Performing Organization Address City/[facility]/ZIP Co de Phone Number [facility] [address] [place] [address] [phone] documented in this encounter Visit Diagnoses Not on filedocumented in this encounter Care Teams Manager Cardiology Relationship Specialty Start Date End Date Emilie Davis MD [address] [place] [address] PCP - General Family Medicine 05/13/18 Morales Echavarria FNP [address] [place] [phone] Nurse Practitioner Family Medicine 04/16/23 Aida Orozco [address] [place] [address] [address] [place] [address] Gastroenterology 05/26/24 Fred Castanon [address] [place] [address] [address] [place] [address] 07/21/24 documented as of this encounter
--- OUTSIDE RECORDS SUMMARY | 2025-01-28 16:42 | XMS_ITS | Clinical Summary ---
Author Organization [employer] Address [address] [place] [address] Care Team Providers Care Rn Recruitment Name Role Phone Emilie Davis MD Primary Care Provider [phone] Morales Echavarria Unavailable Unavailable August Unavailable Fred Castanon Unavailable Allergies Active Allergy Reactions Criticality Noted Date Comments Penicillins Anaphylaxis,Rash High 05/16/2017 Sumatriptan 10/28/2018 Medications * This document contains information received from the source organization and may not represent a complete record from that organization. Needle, Disp, (BD Disp [place]) 25G X 5/8 miscIndication s:Gender dysphoria in [...] Active cholecalcifero l (Vitamin D-3) 1.25 MG (95050 UT) capsule Take 1 capsule by mouth [...] bile duct dilatation, concerning for malignancy. Recommend service administrator consultation, ERCP and tissue sampling. 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 -dental home is [facility] -health care proxy filed 03/16/24 Assessment & Plan (03/17/2024 6:12 AM EST): -next physical exam due after 03/16/2025 -eye care facilitated by Alessio. -dental home is [facility] -health care proxy filed 03/16/24 Assessment & Plan (03/22/2023 9:17 AM EST): -next physical exam due after 12/07/2023. -eye care facilitated by Alessio. -dental home is outside of [facility] Assessment & Plan (12/06/2022 10:19 AM EDT): -next physical exam dueafter 12/07/2023. -eye care facilitated by Alessio. -dental home is outside of [facility] Hx of hepatitis C 11/26/2022 Overview [...] rays suggests osteoarthritis. Seen by rheumatology in [place]. Ibuprofen and NSAIDs cause gastritis. Minimal relief with acetaminophen. He was referred back to rheumatology in [place] 08/23/2020 but provider left the area. started on Tramadol. Take 3 times per week. He is not taking at this time. Assessment & Plan (03/17/2024 6:08 AM EST): X rays suggests osteoarthritis. Seen by rheumatology in [place]. Ibuprofen and NSAIDs cause gastritis. Minimal relief with acetaminophen. He was referred back to rheumatology in [place] 08/23/2020 but provider left the area. started on Tramadol. Take 3 times per week. He is not taking at this time. Assessment & Plan (03/22/2023 9:15 AM EST): X rays suggests osteoarthritis. Seen by rheumatology in [place]. Ibuprofen and NSAIDs cause gastritis. Minimal relief with acetaminophen. He was referred back to rheumatology in [place] 08/23/2020 but provider left the area. started on Tramadol. Take 3 times per week. Will need COT in the future. Assessment & Plan (12/06/2022 8:54 AM EDT): X rays suggests osteoarthritis. Seen by rheumatology in [place]. Ibuprofen and NSAIDs cause gastritis. Minimal relief with acetaminophen. He was referred back to rheumatology in [place] 08/23/2020 but provider left the area. started on Tramadol. Take 3 times per week. Will need COT in the future. Assessment & Plan (10/11/2022 9:58 AM EDT): X rays suggests osteoarthritis. Seen by rheumatology in [place]. Ibuprofen and NSAIDs cause gastritis. Minimal relief with acetaminophen. He was referred back to rheumatology in [place] 08/23/2020 but provider left the area. started [...] Now with palpitations. Will refer to his cloth examiner machine for bradycardia. Assessment & Plan (03/22/2023 9:16 AM EST): Sinus bradycardia and asymptomatic. Pt states he always has slow heart rate Pt repots heart rate in 40s recorded with home BP monitor with symptoms of dizziness recorded at home. Now with palpitations. Will refer to his cloth examiner machine for bradycardia. Assessment & Plan (12/06/2022 8:54 AM EDT): Sinus bradycardia and asymptomatic. Pt states he always has slow heart rate Pt repots heart rate in 40s recorded with home BP monitor with symptoms of dizziness recorded at home. Now with palpitations. Will refer to his cloth examiner machine for bradycardia. Assessment & Plan (10/11/2022 9:58 AM EDT): Sinus bradycardia and asymptomatic. Pt states he always has slow heart rate Pt repots heart rate in 40s recorded with home BP monitor with symptoms of dizziness recorded at home. Now with palpitations. Will refer to his cloth examiner machine for bradycardia. Generalized abdominal pain 06/25/2021 Overview (01/28/2025): Pt reports weight loss, loss of appetite, [...] food gastric emptying study. -note from August Orozco 10/21/24 reveiwed NM gastric emptying study FL barium swallow H pylori Ag Stool ordered -note from August Orozco 12/04/24 reviewed, Kaushik increased -esophageal barium swallow 01/13/25 ordered by GI, Aida Orozco IMPRESSION: High- grade stenosis/narrowing distal esophagus likely junction resulting in ballooning of mid and distal esophagus with thick barium and solid food which clears following oral administration of water. 01/26/[address] 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 See CAD for plan. 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 Pt wants to get reestablished with cardiology. 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 -He restarted testosterone 08/2020 -S/p chest reconstruction 10/2018 -Testosterone was 654 on 10/2022 Lab Results Component Value Date TESTTOTAL 1641 (A) 03/18/2024 HGB 16.2 (H) 03/18/2024 HGB 15.8 10/18/2022 HCT 47.3 (H) 03/18/2024 Goal testosterone levels 350-700ng/dl. Assessment & Plan (03/17/2024 6:12 AM EST): Pt identifies as male and is changing his name in [place] October 2020. He restarted testosterone 08/2020 S/p chest reconstruction 10/2018 Pt would like to switch small needle to subcutaneous instead. 25 gague needles sent 12/06/2022 Testosterone was 654 on 10/2022. Assessment & Plan (03/22/2023 9:16 AM EST): Pt identifies as male and is changing his name in [place] October 2020. He restarted testosterone 08/2020 S/p chest reconstruction 10/2018 Pt would like to switch small needle to subcutaneous instead. 25 gague needles sent 12/06/2022 Testosterone was 654 on 10/2022. Assessment & Plan (12/06/2022 11:18 AM EDT): Pt identifies as male and is changing his name in [place] October 2020. He restarted testosterone 08/2020 S/p chest reconstruction 10/2018 Pt would like to switch small needle to subcutaneous instead. 25 gague needles sent 12/06/2022 Testosterone was 654 on 10/2022. Assessment & Plan (10/11/2022 9:59 AM EDT): Pt identifies as male and is changing his name in [place] October 2020. He restarted testosterone 08/2020 S/p chest reconstruction 10/[address] scan, lung 10/04/2017 Overview (05/20/2024): -Ct scan in [facility] on 12/25/2017 showed multiple indeterminate nodules, [...] 11/15/23 and NO SHOW. Pt can call [phone] to schedule mariely. number given to call 03/16/24 -CT 05/08/24 No acute intrathoracic findings. Calcified granulomas present bilaterally. No suspicious pulmonary nodule identified. Air-fluid level present within the midthoracic esophagus can be associated with gastroesophageal reflux disease and esophageal dysmotility. Coronary artery atherosclerosis. Assessment & Plan (05/20/2024 4:05 PM EST): -Ct scan in [facility] on 12/25/2017 showed multiple indeterminate nodules, [...] 11/15/23 and NO SHOW. Pt can call [phone] to schedule mariely. number given to call 03/16/24 -CT 05/08/24 No acute intrathoracic findings. Calcified granulomas present bilaterally. No suspicious pulmonary nodule identified. Air-fluid level present within the midthoracic esophagus can be associated with gastroesophageal reflux disease and esophageal dysmotility. Coronary artery atherosclerosis. Assessment & Plan (03/17/2024 6:13 AM EST): -Ct scan in [place] [facility] on 12/25/2017 showed multiple indeterminate nodules, [...] 11/15/23 and NO SHOW. Pt can call [phone] to schedule mariely. number given to call 03/16/24 Assessment & Plan (03/22/2023 9:16 AM EST): -Ct scan in [place] ER on 12/25/2017 showed multiple indeterminate nodules, largest was solid and measured 2mm. -Given that the Pt has a tobacco Hx and quit in 2018 we referrred to pulmonology that was likely distrupted by the pandemic. -Will ordered repeat CT of chest to follow the nodles. Assessment & Plan (12/06/2022 10:18 AM EDT): -Ct scan in [place] ER on 12/25/2017 showed multiple indeterminate nodules, [...] information should questions or concerns arise. Plan: Vanesas will continue to engage in effective coping mechanisms that has work for they, also will try to implement depressive coping skills. They will be referred for OP services and referral to [facility] Psychopharmacology clinic. Provided Crisis contact number [...] Description 01/27/2025 11:00 AM EDT Clinical Support [address] [phone] Medina Lewis RN On pre-exposure prophylaxis for HIV (Primary Dx) 01/27/2025 Orders Only [address] [address] Emilie Davis MD 01/27/2025 Travel 01/21/2025 Travel 01/19/2025 Orders Only [facility] External Provider, [facility] Pancreatic mass (Primary Dx) 01/15/2025 Orders Only GENERIC EXTERNAL DATA DEPARTMENT Provider, Generic External Data 01/14/2025 Orders Only [facility] External Provider, [facility] Generalized abdominal pain (Primary Dx) 01/08/2025 Orders Only GENERIC EXTERNAL DATA DEPARTMENT Provider, Generic External Data 01/07/[address] [address] Emilie Davis MD Call Back Request; Injectable PrEP Communication 01/04/2025 Patient Outreach [address] [address] Emilie Davis MD Transition Of Care (Tcm) (HDF unscheduled) 01/04/[address] [address] Emilie Davis MD Nurse Triage 01/04/[address] [address] Emilie Davis MD Hospital Follow-up; No Show (Pt no show for hdf ) 12/29/2024 Orders Only GENERIC EXTERNAL DATA DEPARTMENT Provider, Generic External Data 11/26/2024 9:30 AM EDT Clinical Support [address] [address] Medina Lewis, RONALD On pre-exposure prophylaxis for HIV (Primary Dx) 11/26/2024 Orders Only [address] [address] Emilie Davis MD 11/26/2024 Travel 11/26/[address] [address] Emilie Davis MD Appointment Request 11/25/[address] [address] Emilie Davis MD February11/16/2024 Telephone [facility] [address] [place] [address] Medina Lewis RN from Last 3 Months [...] Industry Job Start Date Job End Date [employer] Not on file Not [...] EDT Office Visit [facility] [address] [place] [phone] Emilie Davis MD [address] [place] [address] 03/24/2025 11:00 AM EST Clinical Support [facility] [address] [place] [phone] Medina Lewis, RN [address] [place] [address] 06/04/2025 3:00 PM EST Office Visit [facility] [address] [place] [address] Merissa Donis, OD [address] [place] [address] Health Maintenance Due Date Last Done Comments [...] Blood Count 8.0 4.8 - 10.8 X10*3/uL [facility] Red Blood Count 4.83 4.20 - 5.50 X10*6/uL [facility] Hemoglobin 14.2 12.0 - 16.0 g/dl [facility] Hematocrit 43.2 37.0 - 47.0 % [facility] Mean Corpuscular Volume 89.4 80.0 - 98.0 fL [facility] Mean Corpuscular Hemoglobin 29.4 27.0 - 33.0 pg [facility] Mean Corpuscular HGB Conc 32.9 31.0 - 35.0 g/dl [facility] Red Cell Distribution Width 14.6 11.0 - 16.0 % [facility] Platelet Count 329 160 - 400 X10*3/uL [facility] Mean Platelet Volume 9.6 9.4 - 12.3 fL [facility] Neutrophils Percent Auto 58.2 45 - 73 % [facility] Imm Gran Pct Auto 0.2 0.0 - 0.4 % [facility] Lymphocytes Percent Auto 33.1 20 - 40 % [facility] Monocytes Percent Auto 6.1 2 - 11 % [facility] Eosinophils Percent Auto 1.9 0 - 4 % [facility] Basophils Percent Auto 0.5 0 - 2 % [facility] NRBC Pct Auto 0.0 0.0 - 0.2 /100WBC [facility] Neutrophils Absolute Auto 4.7 2.0 - 8.3 x10*3/uL [facility] Imm Gran Abs Auto 0.02 0.00 - 0.03 X10*3/uL [facility] Lymphocytes Absolute Auto 2.7 1.2 - 4.9 X10*3/uL [facility] Monocytes Absolute Auto 0.5 0.1 - 1.2 X10*3/uL [facility] Eosinophils Absolute Auto 0.2 0.0 - 0.4 X10*3/uL [facility] Basophils Absolute Auto 0.0 0.0 - 0.2 X10*3/uL [facility] NRBC Abs Auto 0.000 0.0 - 0.012 X10*3/uL [facility] 01/27/2025 11:5 3 AM EDT 01/27/2025 1:16 PM EDT us Emilie Davis MD LAB BLOOD ORDERABLES Final Result [facility] [address] [place] [address] [phone] * (ABNORMAL) Comprehensive Metabolic Panel (01/27/2025 11:53 AM EDT) Only the most recent of2 resultswithin the time period is included. Sodium 143 135 - 145 mmol/L [facility] Potassium 3.8 3.3 - 5.1 mmol/L [facility] Chloride 108 96 - 108 mmol/L [facility] Carbon Dioxide 30(H) 22 - 29 mmol/L [facility] Anion Gap 9(L) 12 - 20 [facility] Urea Nitrogen (BUN) 13 9 - 16 mg/dL [facility] Creatinine, Serum 0.79 0.5 - 1.4 mg/dL [facility] Estimated Glomerular Filt Rate >60 [facility] Comment:Chronic Kidney Disea se: Estimated GFR < 60 mL/min/1.82n2Oixedn Kidney Disease: Estimated GFR < 15 mL/min/1.73m2 Glucose 78 60 - 115 mg/dL [facility] Calcium 9.1 8.4 - 10.2 mg/dL [facility] Bilirubin, Total 0.2 0.0 - 1.0 mg/dL [facility] Aspartate Amino Transferase 22 5 - 31 U/L [facility] Alanine Aminotransferase 18 0 - 31 U/L [facility] Total Protein 7.2 6.5 - 8.0 g/dL [facility] Albumin Level 4.2 3.5 - 5.0 g/dL [facility] Alkaline Phosphatase 79 39 - 117 U/L [facility] 01/27/2025 11:5 3 AM EDT 01/27/2025 1:16 PM EDT Emilie Davis MD LAB BLOOD ORDERABLES Final Result [facility] [address] [facility] [place] [address] [phone] * MR Abdomen w/ and w/o Contrast (01/20/2025 4:03 PM EDT) Anatomical Region Laterality Modality Abdomen Magnetic Resonan ce 01/20/2025 4:03 PM EDT Narrative 01/20/2025 4:05 PM EDT [address] [address] Magnetic Resonance Report Signed with Steve Patient: Harriet Valdez MR#: [id number] : 1970 Acct:[id number] Age/Sex: 54 / F ADM Date: 01/19/25 Loc: HO.MRI Attending Dr: Cha Mills MD Ordering Physician: Cha Mills MD Date of Service: 01/19/25 Procedure(s): MR abdomen wo/w con Accession Number(s): [id number] cc: Emilie Davis MD; Cha Mills MD [...] bile duct dilatation, concerning for malignancy. Recommend service administrator consultation, ERCP and tissue sampling. 2. Subcentimeter right hepatic hemangioma and cyst. 3. Diverticulosis coli. This document has been electronically signed by: Yumiko Jones MD on 01/20/2025 16:03:51 Dictated By: Yumiko Jones MD Signed By: <Electronically signed by Yumiko Jones MD in OV> 01/20/25 1605 DD/ 1603 TD/TT: 01/20/25 1603 Direct Support Specialist: Procedure Note Donotuseinterpreter, Image - 01/20/[address] [address] Magnetic Resonance Report Signed with Addenda Patient: Harriet Valdez#: [id number] : 1970Acct:[id number] Age/Sex: 54 / FADM Date: 01/19/25 Loc: HO.MRI Attending Dr: Cha Mills MD Ordering Physician: Cha Mills MD Date of Service: 01/19/25 Procedure(s): MR abdomen wo/w con Accession Number(s): [id number] cc: Emilie Davis MD; Cha Mills MD [...] bile duct dilatation, concerning for malignancy. Recommend service administrator consultation, ERCP and tissue sampling. 2. Subcentimeter right hepatic hemangioma and cyst. 3. Diverticulosis coli. This document has been electronically signed by: Yumiko Jones MD on 01/20/2025 16:03:51 Dictated By: Yumiko Jones MD Signed By: <Electronically signed by Yumiko Jones MD in OV> 01/20/251604 DD/ 02 TD/TT: 01/20/251602 Direct Support Specialist: [facility] External Provider IMG MRI PROCEDURES Edited Result - Final * Hematoxylin and Eosin Stain (01/15/2025 3:32 PM EDT) 01/15/2025 3:32 PM EDT 01/18/2025 7:08 AM EDT [facility] - 01/19/2025 12:19 PM EDT ----- ------- Name: Trace ScottHarriet do Age/Sex: 54/F : 1970 Unit#: [id number] Attend Dr: Mary Alice Mayorga MD Re01/15/25 Status: [facility] Location: [facility] Disch: ----- ------- SPEC : [id number] RECD: 01/18/25 STATUS: JANIE DUNLAP NUM: [id number] AMBREEN: 01/15/25 [facility] DR: Mary Alice [...] developed and their performance characteristics determined by [facility]. They have not been cleared or approved by the U.S. Food and Drug Administration (FDA). However, the FDA CONTINUED ON NEXT PAGE ----- ------- Name: Harriet Valdez Age/Sex: 54/F : 1970 Unit#: [id number] Attend Dr: Mary Alice Mayorga MD Re01/15/25 [place] [facility] [place] [facility] Disch: ----- ------- SPEC : [id number] RECD: 01/18/25 STATUS: JANIE DUNLAP NUM: [id number] AMBREEN: 01/15/25-1531 [facility] DR: Mary Alice [...] laboratory testing. Copies To: Emilie Davis MD [address] [address] Mary Alice Mayorga MD [facility] [address] [place] [phone] ----- ------- Signed (signature on file) Yara Dodson MD 01/19/25 1219 ----- ------- END OF REPORT [employer] External Data Provider LAB BLOOD ORDERAB LES Final Result Performing Organization Address [facility] Co de Phone Number [facility] [address] [place] [phone] * Prothrombin Time-INR (01/14/2025 3:40 PM EDT) Prothrombin Time 11.7 10.9 - 12.4 SEC [facility] INTERNATIONAL NORM RATIO 1.0 0.9 - 1.1 [facility] Comment:INTERNATIONAL NORMAL IZED RATIO (INR) [...] 3:40 PM EDT 01/14/2025 3:52 PM EDT [employer] External Data Provider LAB BLOOD ORDERAB LES Final Result Performing Organization Address [facility] de Phone Number [facility] [address] [place] [phone] * FL Esophagus Barium Swallow (01/14/2025 9:40 AM EDT) Anatomical Region Laterality Modality Head, Neck Radiographic Aurora ging 01/14/2025 9:40 AM EDT Narrative 01/14/2025 11:23 AM EDT [address] [address] Fluoroscopy Report Signed Patient: Harriet Valdez MR#: [id number] : 1970 Acct:[id number] Age/Sex: 54 / F ADM Date: 01/14/25 Loc: HO.XRAY Attending Dr: Aida ASH Ordering Physician: Aida Orozco Date of Service: 01/14/25 Procedure(s): FL barium swallow Accession Number(s): [id number] cc: Emilie Davis MD; Aida Orozco Reason [...] 01/14/25 1120 DD/ 0940 TD/TT: 01/14/25 0955 Direct Support Specialist: [facility] Procedure Note Donotuseinterpreter, Image - 01/14/[address] [address] Fluoroscopy Report Signed Patient: Harriet ValdezMR#: [id number] : 1970Acct:[id number] Age/Sex: 54 / FADM Date: 01/14/25 Loc: HO.XRAY Attending Dr: Aida ASH Ordering Physician: Aida Orozco Date of Service: 01/14/25 Procedure(s): FL barium swallow Accession Number(s): [id number] cc: Emilie Davis MD; Aida Orozco Reason [...] 01/14/25 1120 DD/ 0940 TD/TT: 01/14/25 0955 Direct Support Specialist: MADINA us [facility] External Provider IMG FLU OROSCOPY PROCEDURES Final Result * XR Abdomen 2 View minimum (01/08/2025 10:50 AM EDT) Anatomical Region Laterality Modality Abdomen Radiographic Aurora ging 01/08/2025 10:5 0 AM EDT Narrative 01/08/2025 12:26 PM EDT [address] [address] XRay Report Signed Patient: Harriet Valdez MR#: [id number] : 1970 Acct:[id number] Age/Sex: 54 / F ADM Date: 01/08/25 Loc: HO.XRAY Attending Dr: Aida LEMOS-C Ordering Physician: Aida Orozco Date of Service: 01/08/25 Procedure(s): XR abdomen min 2V Accession Number(s): [id number] cc: Emilie Davis MD; Aida Orozco-Cristina EXAMINATION: XR ABDOMEN 2 VIEWS SUPINE ERECT [...] 01/08/25 1223 DD/ 1050 TD/TT: 01/08/25 1057 Direct Support Specialist: Procedure Note Donotuseinterpreter, Image - 01/08/[address] [address] XRay Report Signed Patient: Harriet ValdezMR#: [id number] : 1970Acct:[id number] Age/Sex: 54 / FADM Date: 01/08/25 Loc: HO.XRAY Attending Dr: Aida ASH Ordering Physician: Aida Orozco Date of Service: 01/08/25 Procedure(s): XR abdomen min 2V Accession Number(s): [id number] cc: Emilie Davis MD; Aida Orozco EXAMINATION: [...] 01/08/25 1223 DD/ 1050 TD/TT: 01/08/25 1057 Direct Support Specialist: [facility] External Provider IMG XR PROCEDURES Edited Result - Final * (ABNORMAL) VITAMIN D 25-OH (D2 AND D3) (01/08/2025 10:47 AM EDT) Vitamin D, 25-OH, D2 <4 ng/mL [facility] Comment:This test was devcarloso ped and its analytical performancecharacteristics have been determined by [facility] [place], [place]. It hasnot been cleared or approved by the U.S. Food and DrugAdministration. This assay has been validated pursuantto the CLIA regulations and is used for clinicalpurposes.THIS TEST WAS PERFORMED AT:[employer] [place] [address]QYFOFSRMARCI ESTEVEZ MD,PHD Vitamin D, 25-OH, D3 28 ng/mL [facility] Comment:This test was develo ped and its analytical performancecharacteristics have been determined by [facility] [place], [place]. It hasnot been cleared or approved by the U.S. Food and DrugAdministration. This assay has been validated pursuantto the CLIA regulations and is used for clinicalpurposes. Vitamin D, 25-OH, Total 28(A) 30 - 100 ng/mL [facility] Comment:Vitamin D, 25-Hydrox y reports [...] = 30 ng/mL.For additional information, please refer tohttp://education.[employer]/faq/ZBF495(This link is being provided for informational/educational purposes only.) 01/08/2025 10:4 7 AM EDT 01/08/2025 10:47 AM EDT us Generic External Data Provider LAB BLOOD ORDERAB LES Final Result [facility] [address] [place] [phone] * Sed Rate by Modified Marcela (01/08/2025 10:47 AM EDT) Erythrocyte Sedimentation Rate 9 0 - 20 MM/HR [facility] Comment:Patients with polycy themia and many hemoglobin abnormalitiesmay have depressed sed rates whereas patients with anemiamay have elevated sed rates. 01/08/2025 10:4 7 AM EDT 01/08/2025 10:47 AM EDT Generic External Data Provider LAB BLOOD ORDERAB LES Final Result Performing Organization Address [facility] de Phone Number [facility] [address] [place] [phone] * C-reactive Protein (01/08/2025 10:47 AM EDT) C Reactive Protein <0.10 < or = 0.50 mg/dL [facility] 01/08/2025 10:4 7 AM EDT 01/08/2025 10:47 AM EDT Generic External Data Provider LAB BLOOD ORDERAB LES Final Result Performing Organization Address [facility] de Phone Number [facility] [address] [place] [address] [phone] * Lipase (01/08/2025 10:47 AM EDT) Only the most recent of2 resultswithin the time period is included. Lipase 33 8 - 78 U/L [facility] 01/08/2025 10:4 7 AM EDT 01/08/2025 10:47 AM EDT Generic External Data Provider LAB BLOOD ORDERAB LES Final Result Performing Organization Address [facility] de Phone Number [facility] [address] [place] [address] [phone] * (ABNORMAL) Amylase (01/08/2025 10:47 AM EDT) Amylase 114(H) 28 - 100 U/L [facility] 01/08/2025 10:4 7 AM EDT 01/08/2025 10:47 AM EDT us Generic External Data Provider LAB BLOOD ORDERAB LES Final Result [facility] [address] [place] [address] [phone] * (ABNORMAL) Drug Monitoring, Panel 1, Screen, Urine (12/29/2024 1:09 PM EDT) Opiate Screen Urine Not Detected Not Detect [facility] Comment:Opiate cut-off is 30 0 ng/mL.Positive results are unconfirmed and should not be used fornon-medical purposes. Barbiturates, Urine Not Detected Not Detect [facility] Comment:Barbiturate cut-off is 200 ng/mL.Positive results are unconfirmed and should not be used fornon-medical purposes. Phencyclidine Screen Urine Not Detected Not Detect [facility] Comment:Phencyclidine cut-of f is 25 ng/mL.Positive results are unconfirmed and should not be used fornon-medical purposes. Amphetamine Screen Urine Not Detected Not Detect [facility] Comment:Amphetamine cut-off is 1000 ng/mL.Positive results are unconfirmed and should not be used fornon-medical purposes. Benzodiazepines Screen Urine Not Detected Not Detect [facility] Comment:Benzodiazepine cut-o ff is 200 ng/mL.Positive results are unconfirmed and should not be used fornon-medical purposes. Cocaine Screen Urine Not Detected Not Detect [facility] Comment:Cocaine cut-off is 3 00 ng/mL.Positive results are unconfirmed and should not be used fornon-medical purposes. Cannabinoid Screen Urine POSITIVE(A) Not Detect [facility] Comment:Cannabinoid cut-off is 50 ng/mL.Positive results are unconfirmed and should not be used fornon-medical purposes. Methadone Screen, Urine Not Detected Not Detect ng/mL [facility] Comment:Methadone cut-off is 300 ng/mL.Positive results are unconfirmed and should not be used fornon-medical purposes. FENTANYL URINE Not Detected Not Detect [facility] Comment:Fentanyl cut-off is 1 ng/mL.Positive results are unconfirmed and should not be used fornon-medical purposes. Oxycodone Urine Screen Not Detected Not Detect ng/mL [facility] Comment:Oxycodone cut-off is 100 ng/mL.Positive results are unconfirmed and should not be used fornon-medical purposes. Buprenorphine Screen Not Detected Not Detect ng/mL [facility] Comment:Buprenorphine cut-of f is 5 ng/mL.Positive results are unconfirmed and should not be used fornon-medical purposes. 12/29/2024 1:09 PM EDT 12/29/2024 1:16 PM EDT us Generic External Data Provider LAB URINE ORDERAB LES Final Result Performing Organization Address [facility]/ZIP Co de Phone Number [facility] [address] [place] [phone] * Urinalysis w/reflex microscopic (12/29/2024 1:09 PM EDT) Color Urine Yellow [facility] Appearance Urine Clear [facility] PH 8.0 5.0 - 9.0 [facility] Glucose Urine UA Negative Negative mg/dL [facility] Urine Blood Negative Negative [facility] Specific [place] - Urine 1.015 1.005 - 1.025 [facility] Urine Protein Negative Neg-Trace mg/dL [facility] Urine Ketones Negative Negative mg/dL [facility] Nitrite Urine Negative Negative [facility] Leukocyte Esterase Urine Negative Negative [facility] 12/29/2024 1:09 PM EDT 12/29/2024 1:16 PM EDT Narrative [facility] - 12/29/2024 1:22 PM EDT Urine, Clean Catch us Generic External Data Provider LAB URINE ORDERAB LES Final Result Performing Organization Address [facility]/ZIP Co de Phone Number [facility] [address] [place] [phone] * CT Abdomen Pelvis w/ Contrast (12/29/2024 12:55 PM EDT) Anatomical Region Laterality Modality Body, Pelvis, Abdomen Computed T omography 12/29/2024 12:5 5 PM EDT Narrative 12/29/2024 1:42 PM EDT [place] [address] [address] Scan Report Signed Patient: Harriet Valdez MR#: [id number] : 1970 Acct:[id number] Age/Sex: 54 / F ADM Date: 12/29/24 Loc: HO.ED Attending Dr: Ordering Physician: Cheryl Cobb DO Date of Service: 12/29/24 Procedure(s): CT abdomen pelvis w IV con Accession Number(s): [id number] cc: Emilie Davis MD; Cheryl Cobb DO Report Number: [id number]: Total DLP = 296.00 mGy-cm EXAMINATION: CT [...] 12/29/24 1340 DD/ 1255 TD/TT: 12/29/24 1329 Direct Support Specialist: Procedure Note Donotuseinterpreter, Image - 12/29/[address] [place] [address] [address] Scan Report Signed Patient: Harriet Valdez#: [id number] : 1970Acct:[id number] Age/Sex: 54 / FADM Date: 12/29/24 Loc: .ED Attending Dr: Ordering Physician: Cheryl Cobb DO Date of Service: 12/29/24 Procedure(s): CT abdomen pelvis w IV con Accession Number(s): [id number] cc: Emilie Davis MD; Cheryl Cobb DO Report Number: [id number]: Total DLP = 296.00 mGy-cm EXAMINATION: CT [...] 12/29/24 1340 DD/ 1255 TD/TT: 12/29/24 1329 Direct Support Specialist: [facility] External Provider IMG CT PROCEDURES Final Result * Hepatic Function Panel (12/29/2024 10:00 AM EDT) Bilirubin, Total 0.4 0.0 - 1.0 mg/dL [facility] Bilirubin, Direct 0.1 0.0 - 0.5 mg/dL [facility] Aspartate Amino Transferase 26 5 - 31 U/L [facility] Alanine Aminotransferase 19 0 - 31 U/L [facility] Total Protein 7.6 6.5 - 8.0 g/dL [facility] Albumin Level 4.4 3.5 - 5.0 g/dL [facility] Alkaline Phosphatase 90 39 - 117 U/L [facility] 12/29/2024 10:0 0 AM EDT 12/29/2024 10:02 AM EDT Generic External Data Provider LAB BLOOD ORDERAB LES Final Result [facility] [address] [place] [address] [phone] * (ABNORMAL) Basic Metabolic Panel (12/29/2024 10:00 AM EDT) Sodium 142 135 - 145 mmol/L [facility] Potassium 4.0 3.3 - 5.1 mmol/L [facility] Chloride 107 96 - 108 mmol/L [facility] Carbon Dioxide 30(H) 22 - 29 mmol/L [facility] Anion Gap 9(L) 12 - 20 [facility] Urea Nitrogen (BUN) 10 9 - 16 mg/dL [facility] Creatinine, Serum 0.75 0.5 - 1.4 mg/dL [facility] Creatinine Clr Calc Pharmacy 66.2 [facility] Comment:Provided height and weight: 162.56 cm,49.5 kg.eGFR (calculated from the MDRD study equation) and eCrCl(calculated from the Cockcroft-Gault equation) are based ondifferent parameters and may not yield comparable results.If eCrCl result is absurd, please check patient'sheight/weight. Estimated Glomerular Filt Rate >60 [facility] Comment:Chronic Kidney Disea se: Estimated GFR < 60 mL/min/1.34n1Hzxzww Kidney Disease: Estimated GFR < 15 mL/min/1.73m2 Glucose 117(H) 60 - 115 mg/dL [facility] Calcium 9.3 8.4 - 10.2 mg/dL [facility] 12/29/2024 10:0 0 AM EDT 12/29/2024 10:02 AM EDT us Generic External Data Provider LAB BLOOD ORDERAB LES Final Result Performing Organization Address City/[facility]/ZIP Co de Phone Number [facility] [address] [place] [phone] * (ABNORMAL) Confirmatory Syphilis Profile (11/26/2024 1:24 PM EDT) Rapid Plasma Reagin, Quant Non-React darren Nonreactive [facility] Treponema pallidum Antibody, Particle Agglutination Reactive( A) Nonreactive [facility] Comment:These results must b e reported by the ordering clinician orclinical facility [facility] required by state law.Testing performed at: [address] [address] 11/26/2024 1:24 PM EDT 11/27/2024 3:54 AM EDT us Emilie Davis MD LAB BLOOD ORDERABLES Final Result Performing Organization Address City/[facility]/ZIP Co de Phone Number [facility] [address] [place] [address] [phone] * (ABNORMAL) Syphilis Screen (11/26/2024 1:24 PM EDT) [facility] Syphilis Screen Reactive( A) Nonreactive [facility] Comment:Reactive specimens a re sent to the [facility] Labfor confirmatory tests. 11/26/2024 1:24 PM EDT 11/26/2024 4:06 PM EDT Emilie Davis MD LAB BLOOD ORDERABLES Final Result Performing Organization Address [facility] Co de Phone Number [facility] [address] [place] [address] [phone] * Hepatitis C Viral RNA, Quantitative, Real-Time PCR (11/26/2024 1:24 PM EDT) [facility] Hepatitis C Viral Load <15 NOT DETECTED NOT DETECTED IU/mL [facility] HCV Log PCR <1.18 NOT DETECTED NOT DETECTED Log IU/mL [facility] Comment:For additional infor mation, please refer tohttp://education.[employer]/faq/TLV01l0(This link is being provided for informational/educational purposes only.)THIS TEST WAS PERFORMED AT:[facility] [place] [id number] MALDONADO MD 11/26/2024 1:24 PM EDT 11/27/2024 2:28 PM EDT Emilie Davis MD LAB BLOOD ORDERABLES Final Result Performing Organization Address [facility]/ZIP Co de Phone Number [facility] [address] [place] [phone] * (ABNORMAL) Hepatitis C Antibody with Reflex to HCV, RNA, Quantitative, Real- Time PCR (11/26/2024 1:24 PM EDT) [facility] Hepatitis C Antibody Reactive( A) Nonreactive [facility] Comment:Presumptive evidence of antibodies to HCV. 11/26/2024 1:24 PM EDT 11/26/2024 4:06 PM EDT us Emilie Davis MD LAB BLOOD ORDERABLES Final Result Performing Organization Address City/[facility]/ZIP Co de Phone Number [facility] [address] [place] [phone] * Methylmalonic Acid (11/26/2024 1:24 PM EDT) Methylmalonic Acid 197 55 - 335 nmol/L [facility] Comment: Serum methylmalonic acid (MMA) [...] outcomes,such as neural tube defects and intrauterine growthrestriction.[facility] utilized Multi-Modal Decomposition(MMD) analysis to establish first and second trimester-specific MMA reference intervals in , as givenbelow:MMA, First trimester (<13 wks gestation): 58-167 nmol/LMMA, Second trimester (13-23 wks gestation):63-241 nmol/LThis test was developed and its analytical performancecharacteristics have been determined by [employer]. It has not been cleared or approved by theFDA. This assay has been validated pursuant to the CLIAregulations and is used for clinical purposes.THIS TEST WAS PERFORMED AT:[id number] [place] [phone] ESTEVEZ MD,PHD 11/26/2024 1:24 PM EDT 11/26/2024 4:06 PM EDT us Generic External Data Provider LAB BLOOD ORDERAB LES Final Result [facility] [address] [place] [phone] * HIV-1 RNA, Quantitative, Real-Time PCR (11/26/2024 1:24 PM EDT) HIV RNA PCR Qn Copies NOT DETECTED NOT DETECTED copies/mL [facility] HIV RNA PCR Qn Log Copies NOT DETECTED NOT DETECTED [facility] Comment:Result Units: Log co pies/mLThis test was performed using Real-Time Polymerase ChainReaction.Reportable Range: 20 copies/mL to 10,000,000 copies/mL(1.30 log copies/mL to 7.00 log copies/mL).THIS TEST WAS PERFORMED AT:[facility] [place] [phone] MALDONADO MD 11/26/2024 1:24 PM EDT 11/26/2024 4:06 PM EDT Emilie Davis MD LAB BLOOD ORDERABLES Final Result Performing Organization Address [facility] Co de Phone Number [facility] [address] [place] [phone] * RPR (Monitor) with Reflex to??Titer (11/26/2024 1:24 PM EDT) RPR (Monitor) w/Refl Titer NON-REACTI VE NON-REACT DARREN [facility] Comment:THIS TEST WAS PERFOR MED AT:[facility] [place] [id number] MALDONADO MD Rapid Plasma Reagin Ab Titer TNP [facility] 11/26/2024 1:24 PM EDT 11/26/2024 4:06 PM EDT Emilie Davis MD LAB BLOOD ORDERABLES Final Result Performing Organization Address [facility] Co de Phone Number [facility] [address] [place] [phone] * (ABNORMAL) Lipid Panel, Standard (07/24/2024 1:36 PM EDT) Triglycerides 141 <150 mg/dL [facility] Comment:Desirable Triglyceri de: less than 150 mg/dLBorderline High Triglyceride 150-199 mg/dLHigh Triglyceride: 200-499 mg/dLVery High Triglyceride: greater than or equal to 5OO mg/dL Cholesterol 205(H) <200 mg/dL [facility] Comment:Desirable Cholestero l: less than 200 mg/dLBorderline High Cholesterol: 200-239 mg/dLHigh Cholesterol: greater than 239 mg/dL LDL Cholesterol Calculated 114(H) <100 mg/dL [facility] Comment:Desirable LDL: less than 100 mg/dLNear Optimal/Above Optimal LDL: 110- 129 mg/dLBorderline High LDL: 130-159 mg/dLHigh LDL: 160-189 mg/dLVery High LDL: greater than or equal to 190 mg/dL HDL Cholesterol 63 >40 mg/dL [facility] Comment:Desirable HDL: great er than 40 mg/dL Note: This HDL assay may give artificially low results in patients with liver disease. 07/24/2024 1:36 PM EDT 07/24/2024 4:20 PM EDT us Generic External Data Provider LAB BLOOD ORDERAB LES Final Result [facility] [address] [place] [phone] * HPV mRNA E6/E7 w/Reflex to HPV Genotypes 16, 18/45 (03/22/2023 11:30 AM EST) HPV nRNA E6/E7 Not Detected Not Detected [facility] Comment:Methodology: Transcr iption-Mediated AmplificationThis assay detects E6/E7 viral messenger RNA (mRNA) from 14high-risk HPV types (16,18,31,33,35,39,45,51,52,56,58,59,66,68).Cervical sources are required for HPV testing.If a vaginal source from a patient who has had atotal hysterectomy with removal of cervix wassubmitted, please contact the testing laboratoryfor alternative testing options.For additional information, please refer tohttp://education.[employer]/faq/JGY570a4(This link if provided for information/educational purposes only.)THIS TEST WAS PERFORMED AT:[facility] [place] [id number] MALDONADO MD HPV mRNA E6/E7 TNP [facility] HPV 16 RNA TNP [facility] HPV 18/45 [facility] 03/22/2023 11:3 0 AM EST 03/25/2023 12:20 PM EST Emilie Davis MD LAB CYTOLOGY ORDERABLES Fi nal Result [facility] [address] [place] [address] [phone] * Pap Smear (03/22/2023 11:30 AM EST) 03/22/2023 11:3 0 AM EST 03/25/2023 12:20 PM EST Narrative [facility] - 04/11/2023 11:26 AM EST ----- ------- Name: Harriet Valdez Age/Sex: 53/F : 1970 Unit#: [id number] Attend Dr: RADHA VILLAREAL MD Re03/22/23 Status: DEP [facility] ------- SPEC : [id number] RECD: 03/25/23 STATUS: JANIE DUNLAP NUM: [id number] AMBREEN: 03/22/23 [facility] DR: Emilie Davis MD ENTERED: 03/25/234864 SP TYPE: Pap Smr OT DR: ORDERED: Pap Smear Interpretation Satisfactory for evaluation. Negative for intraepithelial lesion or malignancy. HPV mRNA E6/E7: NOT DETECTED This assay detects E6/E7 viral messenger RNA (mRNA) from 14 high-risk HPV types (16, 18, 31, 33, 35, 39, 45, 51, 52, 56, 58, 59, 66, 68) HPV testing performed by [facility], [place], [place]. See reference laboratory portion of the EMR for entire report. Clinical Information LMP: Unknown date Previous PAP test: Unknown date, WNL Other history: Pt on testosterone, surgical post menopause Material Received ThinPrep-Cervical ----- ------- Signed (signature on file) SERENA Alejandro (ASC) 04/11/23 1126 ----- ------- END OF REPORT Emilie Davis MD LAB CYTOLOGY ORDERABLES Fi nal Result [facility] [address] [place] [phone] * Colonoscopy (01/30/2018) Colonoscopy normal Historical Provider HEALTH MAINTENANCE Final Result from Last 3 Months or Most Recently Relevant to Health Maintenance Insurance [facility] [employer] 3 Advance Directives Documents on File Type Date Recorded Patient Gore Stitcher Expl anation Advance Directives and Living Will 03/16/2024 Health Care Proxy 03/16/24 Care Teams Rn Recruitment Relationship Specialty Start Date End Date Emilie Davis MD [address] [place] [phone] PCP - General Family Medicine 05/13/18 Morales Echavarria FNP [address] [place] [phone] Nurse Practitioner Family Medicine 04/16/23 Pam Aida [address] [place] [phone] Gastroenterology 05/26/24 Fred Castanon [address] [place] [phone] 07/21/24
--- OUTSIDE RECORDS SUMMARY | 2025-01-28 16:42 | XMS_ITS | Encounter Summary ---
Author Organization [employer] Address [address] [facility] [address] [place] [address] Care Team Providers Care Mutual Fund Manager Name Role Phone Emilie Davis MD Primary Care Provider [phone] Morales Echavarria Unavailable Unavailable August Unavailable Fred Castanon Unavailable Reason for Visit * Reason Comments Med Refill Encounter Details Date Type Department Care Team (Late st Contact Info) Description 01/01/2023 Refill [facility] [address] [place] [address] Emilie Davis MD [address] [place] [address] Social History Tobacco Use Types Packs/Day Years [...] 8:54 AM EDT T/C to patient via oil paint shader regarding x-ray result. No answer, message left [...] 03/03/2025 9:30 AM EDT Office Visit [facility] [address] [place] [phone] Emilie Davis MD [address] [place] [phone] 03/24/2025 11:00 AM EST Clinical Support [facility] [address] [place] [address] Medina Lewis, RONALD [address] [place] [address] 06/04/2025 3:00 PM EST Office Visit [facility] [address] [place] [address] Merissa Donis, OD [address] [place] [address] documented as of this encounter Visit Diagnoses Not on filedocumented in this encounter Additional Health Concerns Assessment Noted Time PHQ-9 Depression Total Score: 19 023 9:24 AM EDT documented as of this encounter Care Teams Mutual Fund Manager Relationship Specialty Start Date End Date Emilie Davis MD [address] [place] [phone] PCP - General Family Medicine 05/13/18 Morales Echavarria FNP [address] [place] [address] Nurse Practitioner Family Medicine 04/16/[address] [place] [phone] Gastroenterology 05/26/24 Fred Castanon [address] [place] [phone] 07/21/24 documented as of this encounter
--- OUTSIDE RECORDS SUMMARY | 2025-01-28 16:42 | XMS_ITS | Encounter Summary ---
Author Organization [facility] Address [address] [facility] [address] [place] [address] Care Team Providers Care Storyboard Artist Name Role Phone Emilie Davis MD Primary Care Provider [phone]- [phone] Morales Echavarria WEB FEEDER Unavailable Unavailable August Unavailable Fred Castanon Unavailable Reason for Visit * Reason Onset Date Comments Referral 07/18/2022 Encounter Details Date Type Department Care Team (Late st Contact Info) Description 07/18/2022 Telephone [facility] [address] [place] [address] Emilie Davis MD [address] [place] [address] Referral Social History Tobacco Use Types Packs/Day [...] to our [facility]. Please contact pt [phone] documented in this encounter Plan of Treatment Upcoming Encounters Date Type Department Care Team (Late st Contact Info) Description 03/03/2025 9:30 AM EDT Office Visit [facility] [address] [place] [address] Emilie Davis MD [address] [place] [address] 03/24/2025 11:00 AM EST Clinical Support [facility] [address] [place] [address] Medina Lewis, RONALD [address] [place] [address] 06/04/2025 3:00 PM EST Office Visit [facility] [address] [place] [address] Merissa Donis, OD [address] [place] [address] documented as of this encounter Visit Diagnoses Not on filedocumented in this encounter Care Teams Storyboard Artist Relationship Specialty Start Date End Date Emilie Davis MD [address] [place] [phone] PCP - General Family Medicine 05/13/18 Morales Echavarria FNP [address] [place] [phone] Nurse Practitioner Family Medicine 04/16/23 Aida Orozco [address] [place] [address] [address] [place] [address] Gastroenterology 05/26/24 Fred Castanon [address] [place] [phone] 07/21/24 documented as of this encounter
--- OUTSIDE RECORDS SUMMARY | 2025-01-28 16:42 | XMS_ITS | Encounter Summary ---
Author Organization [employer] Address [address] [facility] [address]t [place] [address] Care Team Providers Care Tombstone Carver Name Role Phone Emilie Davis MD Primary Care Provider +1- [phone] Morales Echavarria REQUIREMENTS ANALYST Unavailable Unavailable August Unavailable Fred Castanon Unavailable Reason for Visit * Reason Onset Date Comments Referral 07/20/2024 Encounter Details Date Type Department Care Team (Late st Contact Info) Description 07/20/2024 Telephone [facility] [address] [place] [address] Emilie Davis MD 230 [place] [address] Referral Social History Tobacco Use Types Packs/Day [...] 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 Contact pt at [phone] documented in this encounter Plan of Treatment Upcoming Encounters Date Type Department Care Team (Late st Contact Info) Description 03/03/2025 9:30 AM EDT Office Visit [facility] [address] [place] [address] Emilie Davis MD [address] [place] [address] 03/24/2025 11:00 AM EST Clinical Support [facility] [address] [place] [address] Medina Lewis, RONALD [address] [place] [address] 06/04/2025 3:00 PM EST Office Visit [facility] [address] [place] [address] Merissa Donis, GINA [address] [place] [address] documented as of this encounter Visit Diagnoses Not on filedocumented in this encounter Additional Health Concerns Assessment Noted Time PHQ-9 Depression Total Score: 3 04/30/20 9:17 AM EST documented as of this encounter Care Teams Tombstone Carver Relationship Specialty Start Date End Date Emilie Davis MD 230 [place] [address] PCP - General Family Medicine 05/13/18 Morales Echavarria FNP [address] [place] [address] Nurse Practitioner Family Medicine 04/16/23 Aida Orozco [address] [place] [address] Gastroenterology 05/26/24 Fred Castanon [address] [place] [address] 07/21/24 documented as of this encounter
--- OUTSIDE RECORDS SUMMARY | 2025-01-28 16:42 | XMS_ITS | Encounter Summary ---
Author Organization [employer] Address 75 [facility] 7t [place] [address] Care Team Providers Care Deputy Clerk Name Role Phone Emilie Davis MD Primary Care Provider +- [phone] Morales Echavarria DIRECTOR OF HEMOPHILIA Unavailable Unavailable August Unavailable Fred Castanon Unavailable Encounter Details Date Type Department Care Team (Late st Contact Info) Description 04/22/2022 Orders Only [facility] [address] [place], [place] [phone] Emilie Davis MD [address] [place] [address] [phone] HSV (herpes simplex virus) anogenital infection (Primary [...] Description 03/03/2025 9:30 AM EDT Office Visit [address] [phone] Emilie Davis MD [address] [place] [address] [phone] 03/24/2025 11:00 AM EST Clinical Support [address] [place] [address] Medina Lewis, RN 230 [place] [address] 06/04/2025 3:00 PM EST Office Visit [facility] [address] [place] [address] Merissa Donis, OD 230 [place] [address] documented as of this encounter Visit Diagnoses Diagnosis HSV (herpes simplex virus) anogenital infection- Primary Herpes simplex without mention of complication documented in this encounter Care Teams Deputy Clerk Relationship Specialty Start Date End Date Emilie Davis MD [address] [place] [address] PCP - General Family Medicine 05/13/18 Morales Echavarria FNP [address] [place] [address] Nurse Practitioner Family Medicine 04/16/23August [address] [place] [address] [address] [place] [address] Gastroenterology 05/26/24 Fred Castanon [address] [place] [address] 07/21/24 documented as of this encounter
--- OUTSIDE RECORDS SUMMARY | 2025-01-28 16:42 | XMS_ITS | Encounter Summary ---
Author Organization [employer] Address 75 [facility] 7t [place] [address] Care Team Providers Care Conference Services Director Name Role Phone Emilie Davis MD Primary Care Provider +1- [phone] Morales Echavarria 911 OPERATOR Unavailable Unavailable August Unavailable Fred Castanon Unavailable Reason for Visit * Reason Onset Date Comments Hospital Follow-up 01/04/2025 No Show 01/04/2025 Pt no show for h df Encounter Details Date Type Department Care Team (Late st Contact Info) Description 01/04/2025 Telephone [facility] [address] [place], [place] [phone] Emilie Davis MD 230 [place], [place] [phone] Hospital Follow-up; No Show (Pt no show [...] 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 Hospital: [facility] Date of admission: 12/29 Discharge date: 12/31 Diagnosed: Gastritis and inflammation of the pancreas *Send message to [facility] Clinical Care Coordinators documented in this encounter Plan of Treatment Upcoming Encounters Date Type Department Care Team (Late st Contact Info) Description 03/03/2025 9:30 AM EDT Office Visit [facility] [address] [place] [address] Emilie Davis MD 230 [place] [address] 03/24/2025 11:00 AM EST Clinical Support [facility] [address] [place] [address] Medina Lewis, RONALD [address] [place] [address] 06/04/2025 3:00 PM EST Office Visit [facility] 267 [place] [address] Merissa Donis, GINA 230 [place] [address] documented as of this encounter Visit Diagnoses Not on filedocumented in this encounter Additional Health Concerns Assessment Noted Time PHQ-9 Depression Total Score: 3 04/30/20 9:17 AM EST documented as of this encounter Care Teams Conference Services Director Relationship Specialty Start Date End Date Emilie Davis MD 230 [place] [address] PCP - General Family Medicine 05/13/18 Morales Echavarria FNP [address] [place] [address] Nurse Practitioner Family Medicine 04/16/[address] [place] [address] Gastroenterology 05/26/[address] [place] [address] 07/21/24 documented as of this encounter
--- OUTSIDE RECORDS SUMMARY | 2025-01-28 16:42 | XMS_ITS | Encounter Summary ---
Author Organization [employer] Address 75 [facility] 7t [place] [address] Care Team Providers Care Electric Switch Tester Name Role Phone Emilie Davis MD Primary Care Provider +1- [phone] Morales Echavarria Unavailable Unavailable August Unavailable Fred Castanon Unavailable Reason for Visit * Reason Comments Med Refill Encounter Details Date Type Department Care Team (Late st Contact Info) Description 01/17/2024 Refill [facility] [address] [place] [address] Emilie Davis MD [address] [place], [place] [phone] 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) Social [...] Description 03/03/2025 9:30 AM EDT Office Visit [facility] [address] [place] [address] Emilie Davis MD [address] [place] [address] 03/24/2025 11:00 AM EST Clinical Support [facility] [address] [place] [address] Medina Lewis, RN 230 [place] [address] 06/04/2025 3:00 PM EST Office Visit [facility] [address] [place] [address] Merissa Donis, OD 230 [place] [address] documented as of this encounter Visit Diagnoses Diagnosis Gender 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- Primary documented in this encounter Additional Health Concerns Assessment Noted Time PHQ-9 Depression Total Score: 3 04/30/20 23 9:17 AM EST documented as of this encounter Care Teams Electric Switch Tester Relationship Specialty Start Date End Date Emilie Davis MD [address] [place] [address] PCP - General Family Medicine 05/13/18 Morales Echavarria FNP [address] [place] [address] Nurse Practitioner Family Medicine 04/16/23 Aida Orozco [address] [place] [address] Gastroenterology 05/26/24 Fred Castanon [address] [place] [address] 07/21/24 documented as of this encounter
--- OUTSIDE RECORDS SUMMARY | 2025-01-28 16:42 | XMS_ITS | Clinical Summary ---
Author Organization [facility] Address [address] [address] Phone Care Team Providers Care Battery Checker Name Role Phone Emilie Davis MD [...] ACO C3 ACO C3 ACO C3 ACO [facility] C3 ACO [employer] Advance Directives For more information, please contact: [phone] (9AM - 5PM [facility], Saturday-Saturday) * Full Code (Presumed) (Latest Code Status on File) Date Activated Date Inactivated Comments 10/28/2018 9:51 AM 10/28/2018 7:25 PM Care Teams Battery Checker Relationship Specialty Start Date End Date [place], Emilie Way MD [address] [place] [address] PCP - General Family Medicine 06/03/18 Additional Source Comments The information contained in this document represents components of the legal health record. It is not the complete legal health record.[facility]
--- OUTSIDE RECORDS SUMMARY | 2025-01-28 16:42 | XMS_ITS | Encounter Summary ---
Author Organization [facility] Address [address] [place] [address] Phone Care Team Providers Care Digital Account Director Name Role Phone Emilie Davis MD Primary Care Provi baldomero Encounter Details Date Type Department Care Team (Late st Contact Info) Description 10/28/2018 Procedure Pass OR Admitting Dept - Virtual Department [address] [place] [address] Social History Tobacco Use Types Packs/Day Years [...] on filedocumented in this encounter Care Teams Digital Account Director Relationship Specialty Start Date End Date Emilie Davis MD [address] [place] [address] PCP - General Family Medicine 06/03/18 documented as of this encounter Additional Source Comments The information contained in this document represents components of the legal health record. It is not the complete legal health record.[facility]
--- OUTSIDE RECORDS SUMMARY | 2025-01-28 16:42 | XMS_ITS | Encounter Summary ---
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 on file Not on file documented as of this encounter Plan of Treatment Upcoming Encounters Date Type Department Care Team (Late st Contact Info) Description 03/03/2025 9:30 AM EDT Office Visit [facility] [address] [place] [address] Emilie Davis MD 230 [place] [address] 03/24/2025 11:00 AM EST Clinical Support [facility] [address] [place] [address] Medina Lewis, RONALD [address] [place] [address] 06/04/2025 3:00 PM EST Office Visit [facility] [address] [place] [address] Merissa Donis, GINA [address] [place] [address] documented as of this encounter Procedures Procedure Name Priority Date/Time Associated Diagnosis Comments CBC WITH AUTO DIFFERENTIAL Routine 01/27/2025 11:53 AM EDT COMPREHENSIVE METABOLIC PANEL Routine 01/27/2025 11:53 AM EDT documented in this encounter Results * (ABNORMAL) Comprehensive Metabolic Panel (01/27/2025 11:53 AM EDT) Sodium 143 135 - 145 mmol/L [facility] Potassium 3.8 3.3 - 5.1 mmol/L [facility] Chloride 108 96 - 108 mmol/L [facility] Carbon Dioxide 30(H) 22 - 29 mmol/L [facility] Anion Gap 9(L) 12 - 20 [facility] Urea Nitrogen (BUN) 13 9 - 16 mg/dL [facility] Creatinine, Serum 0.79 0.5 - 1.4 mg/dL [facility] Estimated Glomerular Filt Rate >60 [facility] Comment:Chronic Kidney Disea se: Estimated GFR < 60 mL/min/[id number] Kidney Disease: Estimated GFR < 15 mL/min/1.73m2 Glucose 78 60 - 115 mg/dL [facility] Calcium 9.1 8.4 - 10.2 mg/dL [facility] Bilirubin, Total 0.2 0.0 - 1.0 mg/dL [facility] Aspartate Amino Transferase 22 5 - 31 U/L [facility] Alanine Aminotransferase 18 0 - 31 U/L [facility] Total Protein 7.2 6.5 - 8.0 g/dL [facility] Albumin Level 4.2 3.5 - 5.0 g/dL [facility] Alkaline Phosphatase 79 39 - 117 U/L [facility] 01/27/2025 11:5 3 AM EDT 01/27/2025 1:16 PM EDT us Emilie Davis MD LAB BLOOD ORDERABLES Final Result [facility] [address] [place] [address] [phone] * CBC auto differential (01/27/2025 11:53 AM EDT) White Blood Count 8.0 4.8 - 10.8 X10*3/uL [facility] Red Blood Count 4.83 4.20 - 5.50 X10*6/uL [facility] Hemoglobin 14.2 12.0 - 16.0 g/dl [facility] Hematocrit 43.2 37.0 - 47.0 % [facility] Mean Corpuscular Volume 89.4 80.0 - 98.0 fL [facility] Mean Corpuscular Hemoglobin 29.4 27.0 - 33.0 pg [facility] Mean Corpuscular HGB Conc 32.9 31.0 - 35.0 g/dl [facility] Red Cell Distribution Width 14.6 11.0 - 16.0 % [facility] Platelet Count 329 160 - 400 X10*3/uL [facility] Mean Platelet Volume 9.6 9.4 - 12.3 fL [facility] Neutrophils Percent Auto 58.2 45 - 73 % [facility] Imm Gran Pct Auto 0.2 0.0 - 0.4 % [facility] Lymphocytes Percent Auto 33.1 20 - 40 % [facility] Monocytes Percent Auto 6.1 2 - 11 % [facility] Eosinophils Percent Auto 1.9 0 - 4 % [facility] Basophils Percent Auto 0.5 0 - 2 % [facility] NRBC Pct Auto 0.0 0.0 - 0.2 /100WBC [facility] Neutrophils Absolute Auto 4.7 2.0 - 8.3 x10*3/uL [facility] Imm Gran Abs Auto 0.02 0.00 - 0.03 X10*3/uL [facility] Lymphocytes Absolute Auto 2.7 1.2 - 4.9 X10*3/uL [facility] Monocytes Absolute Auto 0.5 0.1 - 1.2 X10*3/uL [facility] Eosinophils Absolute Auto 0.2 0.0 - 0.4 X10*3/uL [facility] Basophils Absolute Auto 0.0 0.0 - 0.2 X10*3/uL [facility] NRBC Abs Auto 0.000 0.0 - 0.012 X10*3/uL [facility] 01/27/2025 11:5 3 AM EDT 01/27/2025 1:16 PM EDT Emilie Davis MD LAB BLOOD ORDERABLES Final Result [facility] [address] [place] [address] [phone] documented in this encounter Visit Diagnoses Not on filedocumented in this encounter Additional Health Concerns Assessment Noted Time PHQ-9 Depression Total Score: 3 04/30/20 23 9:17 AM EST documented as of this encounter Care Teams Paid Search Manager Relationship Specialty Start Date End Date Emilie Davis MD [address] [place] [address] PCP - General Family Medicine 05/13/18 Morales Echavarria FNP [address] [place] [address] Nurse Practitioner Family Medicine 04/16/23August [address] [place] [address] Gastroenterology 05/26/24 Fred Castanon [address] [place] [address] 07/21/24 documented as of this encounter
--- OUTSIDE RECORDS SUMMARY | 2025-01-28 16:42 | XMS_ITS | Encounter Summary ---
Author Organization [employer] [facility] Address 75 [facility] 7t [place] [address] Care Team Providers Care Sumac Tanner Name Role Phone Emilie Davis MD Primary Care Provider +- [phone] Morales Echavarria MARGARINE MAKER Unavailable Unavailable August Unavailable Fred Castanon Unavailable Reason for Visit * Reason Comments Med Refill Encounter Details Date Type Department Care Team (Late st Contact Info) Description 06/27/2022 Refill [facility] [address] [place] [address] [phone] Emilie Davis MD [address] [place] [address] [phone] Social History Tobacco Use Types Packs/Day Years [...] Description 03/03/2025 9:30 AM EDT Office Visit [facility] [address] [place] [address] [phone] Emilie Davis MD [address] [place] [address] [phone] 03/24/2025 11:00 AM EST Clinical Support [address] [address] Medina Lewis, RN 230 [place] [address] 06/04/2025 3:00 PM EST Office Visit [facility] [address] [place] [address] Merissa Donis, OD 230 [place] [address] documented as of this encounter Visit Diagnoses Not on filedocumented in this encounter Care Teams Sumac Tanner Relationship Specialty Start Date End Date Girard, MD Emilie 230 [place] [address] PCP - General Family Medicine 05/13/18 Morales Echavarria FNP [address] [place] [address] Nurse Practitioner Family Medicine 04/16/23 Aida Orozco [address] [place] [address] 3[address] [place] [address] Gastroenterology 05/26/24 Fred Castanon [address] [place] [address] 07/21/24 documented as of this encounter
--- OUTSIDE RECORDS SUMMARY | 2025-01-28 16:42 | XMS_ITS | Encounter Summary ---
Author Organization [employer] [facility] Address 75 [facility] 7t [place] [address] Care Team Providers Care Manufacturing Maintenance Technician Name Role Phone Emilie Davis MD Primary Care Provider +1- [phone] Morales Echavarria Unavailable Unavailable August Unavailable Fred Castanon Unavailable Encounter Details Date Type Department Care Team (Late st Contact Info) Description 11/28/2022 Abstract [facility] MEDICINE [address] [place] [address] Emilie Davis MD 230 [place], [place] [phone] Social History Tobacco Use Types Packs/Day Years [...] 03/03/2025 9:30 AM EDT Office Visit [facility] [address] [place] [address] [phone] Emilie Davis MD [address] [place] [address] [place] [address] 03/24/2025 11:00 AM EST Clinical Support [facility] [address] [place] [address] Medina Lewis, RONALD [address] [place] [address] 06/04/2025 3:00 PM EST Office Visit [facility] OPTOMETRY [address] [place] [address] Merissa Donis, OD 230 [place] [address] documented as of this encounter Visit Diagnoses Not on filedocumented in this encounter Additional Health Concerns Assessment Noted Time PHQ-9 Depression Total Score: 19 023 9:24 AM EDT documented as of this encounter Care Teams Manufacturing Maintenance Technician Relationship Specialty Start Date End Date Emilie Davis MD [address] [place] [address] PCP - General Family Medicine 05/13/18 Morales Echavarria FNP [address] [place] [address] Nurse Practitioner Family Medicine 04/16/23 Aida Orozco [address] [place] [address] Gastroenterology 05/26/24 Fred Castanon [address] [place] [address] 07/21/24 documented as of this encounter
--- OUTSIDE RECORDS SUMMARY | 2025-01-28 16:42 | XMS_ITS | Encounter Summary ---
Author Organization [employer] Address 75 [facility] [address]t [place] [address] Care Team Providers Care Schedule Planning Manager Name Role Phone Emilie Davis MD Primary Care Provider +1- [phone] Morales Echavarria Unavailable Unavailable August Unavailable Fred Castanon Unavailable Encounter Details Date Type Department Care Team (Late st Contact Info) Description 03/25/2023 Orders Only [facility]ICINE [address] [place] [address] Emilie Davis MD 230 [place] [address] Social History Tobacco Use Types Packs/Day Years [...] Description 03/03/2025 9:30 AM EDT Office Visit [facility] [address] [place] [address] Emilie Davis MD [address] [place] [address] 03/24/2025 11:00 AM EST Clinical Support [facility] [address] [place] [address] Medina Lewis, RONALD [address] [place] [address] 06/04/2025 3:00 PM EST Office Visit [facility] OPTOMETRY [address] [place] [address] Merissa Donis, OD 230 [place] [address] documented as of this encounter Visit Diagnoses Not on filedocumented in this encounter Additional Health Concerns Assessment Noted Time PHQ-9 Depression Total Score: 10 023 9:08 AM EDT documented as of this encounter Care Teams Schedule Planning Manager Relationship Specialty Start Date End Date Emilie Davis MD [address] [place] [address] PCP - General Family Medicine 05/13/18 Morales Echavarria FNP [address] [place] [address] Nurse Practitioner Family Medicine 04/16/23OrozcoAugust [address] [place] [address] Gastroenterology 05/26/24 Fred Castanon [address] [place] [place] [address] 07/21/24 documented as of this encounter
== END 2025-01-28 16:56 | disposition home or self-care (01) ==
LOC: HO.HGI 15:07
PROVIDERS: PCP Family Medicine; Visit Provider Nurse Practitioner
DX: K86.89 Other specified diseases of pancreas (principal); R63.4 Abnormal weight loss; K22.0 Achalasia of cardia
CPT/HCPCS: 99214

== ENCOUNTER → 2025-01-28 15:07 | Outpatient (BNVA) | payer OTHER, SELFPAY | PROVIDERS: PCP Family Medicine; Visit Provider Nurse Practitioner | DX: K86.89 Other specified diseases of pancreas (principal); K22.0 Achalasia of cardia; R63.4 Abnormal weight loss | CPT/HCPCS: 99212 ==

== ENCOUNTER 2025-02-01 11:42 | Outpatient (REF) | payer OTHER, SELFPAY ==
--- OUTSIDE RECORDS SUMMARY | 2025-01-27 11:00 | XMS_ITS | Encounter Summary ---
Author Organization [employer] Address [address] [facility] [address] 7t [place] [address] Care Team Providers Care Ground Instructor Basic Name Role Phone [place], Emilie MARISCAL Primary Care Provider +1- [phone] [place] Echavarria Unavailable Unavailable August Unavailable Fred Castanon Unavailable Encounter Details Date Type Department Care Team (Latest Contact Info) Description 01/27/2025 11:00 AM EDT Clinical Support [facility] 230 [place] [address] Medina Lewis, RONALD [address] [place] [address] On pre-exposure prophylaxis for HIV (Primary Dx) [...] 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 file [...] Description 03/03/2025 9:30 AM EDT Office Visit [facility] [address] [place] [address] Emilie Davis MD 230 [place] [address] 03/24/2025 11:00 AM EST Clinical Support [facility] [address] [place] [address] Medina Lewis RN 230 [place] [address] 06/04/2025 3:00 PM EST Office Visit [facility] [address] [place] [address] Gagandeep, Merissa, OD 230 [place] [address] Scheduled Orders Name Type Priority Associated Diagnoses [...] documented as of this encounter Care Teams Ground Instructor Basic Relationship Specialty Start Date End Date Emilie Davis MD [address] [place] [address] PCP - General Family Medicine 05/13/18 [place] Echavarria FNP [address] [place] [address] Nurse Practitioner Family Medicine 04/16/23OrozcoAugust [address] [place] [address] Gastroenterology 05/26/24 Fred Castanon [address] [place] [address] 07/21/24 documented as of this encounter
--- OUTSIDE RECORDS SUMMARY | 2025-02-01 14:24 | XMS_ITS | Encounter Summary ---
Author Organization [employer] Address [address] [facility] [address] 7t [place] [address] Care Team Providers Care Supervisor Mirror Fabrication Name Role Phone Emilie Davis MD Primary Care Provider +1- [phone] Morales Echavarria HEEL SORTER Unavailable Unavailable August Unavailable Fred Castanon Unavailable Reason for Visit * Reason Onset Date Comments Referral 07/20/2024 Encounter Details Date Type Department Care Team (Late st Contact Info) Description 07/20/2024 Telephone [facility]INE [address] [place] [address] Emilie Davis MD 230 [place] [address] Referral Social History Tobacco Use Types Packs/Day [...] 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 Contact pt at [phone] documented in this encounter Plan of Treatment Upcoming Encounters Date Type Department Care Team (Late st Contact Info) Description 03/03/2025 9:30 AM EDT Office Visit [facility] [address] [place] [address] Emilie Davis MD [address] [place] [address] 03/24/2025 11:00 AM EST Clinical Support [facility] [address] [place] [address] Medina Lewis, RONALD [address] [place] [address] 06/04/2025 3:00 PM EST Office Visit [facility] OPT[facility]RY [address] [place] [address] Merissa Donis, GINA [address] [place] [address] documented as of this encounter Visit Diagnoses Not on filedocumented in this encounter Additional Health Concerns Assessment Noted Time PHQ-9 Depression Total Score: 3 04/30/20 9:17 AM EST documented as of this encounter Care Teams Supervisor Mirror Fabrication Relationship Specialty Start Date End Date Emilie Davis MD 230 [place] [address] PCP - General Family Medicine 05/13/18 Morales Echavarria FNP [address] [place] [address] Nurse Practitioner Family Medicine 04/16/23 Aida Orozco [address] [place] [address] Gastroenterology 05/26/24 Fred Castanon [address] [place] [address] 07/21/24 documented as of this encounter
--- OUTSIDE RECORDS SUMMARY | 2025-02-01 14:24 | XMS_ITS | Encounter Summary ---
Author Organization [employer] Address [address] [facility] [address] 7t [place] [address] Care Team Providers Care Visual Basic .Net Developer Name Role Phone Emilie Davis MD Primary Care Provider +1- [phone] Morales Echavarria Unavailable Unavailable August Unavailable Fred Castanon Unavailable Encounter Details Date Type Department Care Team (Late st Contact Info) Description 03/25/2023 Orders Only [facility] MEDICINE [address] [place] [address] Emilie Davis MD 230 [place] [address] Social History Tobacco Use Types Packs/Day Years [...] Description 03/03/2025 9:30 AM EDT Office Visit [facility] MED[facility]INE [address] [place] [address] Emilie Davis MD [address] [place] [address] 03/24/2025 11:00 AM EST Clinical Support [facility] [address] [place] [address] Medina Lewis, RONALD [address] [place] [address] 06/04/2025 3:00 PM EST Office Visit [facility] OPTOMETRY [address] [place] [address] Merissa Donis, OD 230 [place] [address] documented as of this encounter Visit Diagnoses Not on filedocumented in this encounter Additional Health Concerns Assessment Noted Time PHQ-9 Depression Total Score: 10 023 9:08 AM EDT documented as of this encounter Care Teams Visual Basic .Net Developer Relationship Specialty Start Date End Date Emilie Davis MD [address] [place] [address] PCP - General Family Medicine 05/13/18 Morales Echavarria FNP [address] [place] [address] Nurse Practitioner Family Medicine 04/16/23OrozcoAugust [address] [place] [address] Gastroenterology 05/26/24 Fred Castanon [address] [place] [address] 07/21/24 documented as of this encounter
--- OUTSIDE RECORDS SUMMARY | 2025-02-01 14:24 | XMS_ITS | Encounter Summary ---
Author Organization [employer] [facility] Address 75 [facility] 7t [place] [address] Care Team Providers Care Economics Instructor Name Role Phone Emilie Davis MD Primary Care Provider +1- [phone] Morales Echavarria RESTAURANT MANAGING PARTNER Unavailable Unavailable August Unavailable Fred Castanon Unavailable Reason for Visit * Reason Onset Date Comments Referral 07/18/2022 Encounter Details Date Type Department Care Team (Late st Contact Info) Description 07/18/2022 Telephone [facility] MEDICINE [address] [place] [address] Emilie Davis MD 230 [place] [address] Referral Social History Tobacco Use Types Packs/Day [...] to our [facility]. Please contact pt [phone] documented in this encounter Plan of Treatment Upcoming Encounters Date Type Department Care Team (Late st Contact Info) Description 03/03/2025 9:30 AM EDT Office Visit [facility] MEDICINE [address] [place] [address] Emilie Davis MD 230 [place] [address] 03/24/2025 11:00 AM EST Clinical Support [facility] MEDICINE [address] [place] [address] Medina Lewis, RONALD 230 [place] [address] 06/04/2025 3:00 PM EST Office Visit [facility] OPTOMETRY [address] [place] [address] Merissa Donis, OD 230 [place] [address] documented as of this encounter Visit Diagnoses Not on filedocumented in this encounter Care Teams Economics Instructor Relationship Specialty Start Date End Date Emilie Davis MD [address] [place] [address] PCP - General Family Medicine 05/13/18 Morales Echavarria FNP [address] [place] [address] Nurse Practitioner Family Medicine 04/16/23 Aida Orozco [address] [place] [address] Drive [address] [place] [address] Gastroenterology 05/26/24 Fred Castanon [address] [place] [address] 07/21/24 documented as of this encounter
--- OUTSIDE RECORDS SUMMARY | 2025-02-01 14:24 | XMS_ITS | Encounter Summary ---
Author Organization [facility] Address [address] [place] [address] Phone Care Team Providers Care Encephalographer Name Role Phone Emilie Davis MD Primary Care Provi baldomero Encounter Details Date Type Department Care Team (Late st Contact Info) Description 10/28/2018 Procedure Pass OR Admitting Dept - Virtual Department [address] [place] [address] Social History Tobacco Use Types Packs/Day Years [...] on filedocumented in this encounter Care Teams Encephalographer Relationship Specialty Start Date End Date Emilie Davis MD [address] [place] [address] PCP - General Family Medicine 06/03/18 documented as of this encounter Additional Source Comments The information contained in this document represents components of the legal health record. It is not the complete legal health record.[facility]
--- OUTSIDE RECORDS SUMMARY | 2025-02-01 14:24 | XMS_ITS | Encounter Summary ---
Author Organization [facility] Address 75 [facility] 7t [place] [address] Care Team Providers Care Poultry Culler Name Role Phone Emilie Davis MD Primary Care Provider +- [phone] Morales Echavarria EDGER AUTOMATIC Unavailable Unavailable August Unavailable Fred Castanon Unavailable Reason for Visit * Reason Comments Med Refill Encounter Details Date Type Department Care Team (Late st Contact Info) Description 06/27/2022 Refill [facility] MEDICINE [address] [place] [address] [phone] Emilie Davis MD [address] [place] [address] [phone] Social History Tobacco Use Types Packs/Day Years [...] Description 03/03/2025 9:30 AM EDT Office Visit [facility] MEDICINE [address] [place] [address] [phone] Emilie Davis MD [address] [place] [address] [phone] 03/24/2025 11:00 AM EST Clinical Support [address] [address] Medina Lewis, RN 230 [place] [address] 06/04/2025 3:00 PM EST Office Visit [facility] OPTOMETRY [address] [place] [address] Merissa Donis, OD 230 [place] [address] documented as of this encounter Visit Diagnoses Not on filedocumented in this encounter Care Teams Poultry Culler Relationship Specialty Start Date End Date Woodrow, MD Eimlie 230 [place] [address] PCP - General Family Medicine 05/13/18 Morales Echavarria FNP 230 [place] [address] Nurse Practitioner Family Medicine 04/16/23 Aida Orozco [address] [place] [address] 3[address] [place] [address] Gastroenterology 05/26/24 Fred Castanon [address] [place] [address] 07/21/24 documented as of this encounter
--- OUTSIDE RECORDS SUMMARY | 2025-02-01 14:24 | XMS_ITS | Encounter Summary ---
Author Organization [employer] Address 75 [facility] 7t [place] [address] Care Team Providers Care Information Clerk Automobile Club Name Role Phone Emilie Davis MD Primary Care Provider +1- [phone] Morales Echavarria Unavailable Unavailable August Unavailable Fred Castanon Unavailable Reason for Visit * Reason Comments Med Refill Encounter Details Date Type Department Care Team (Late st Contact Info) Description 01/01/2023 Refill [facility] MEDICINE 230 [place] [address] Emilie Davis MD 230 [place] [address] Social History Tobacco Use Types Packs/Day Years [...] 8:54 AM EDT T/C to patient via cash applications manager regarding x-ray result. No answer, message left [...] Description 03/03/2025 9:30 AM EDT Office Visit [facility] MEDICINE [address] [place] [address] Emilie Davis MD [address] [place] [address] 03/24/2025 11:00 AM EST Clinical Support [facility] MEDICINE [address] [place] [address] Medina Lewis, RONALD 230 [place] [address] 06/04/2025 3:00 PM EST Office Visit [facility] OPTOMETRY [address] [place] [address] Merissa Donis, OD 230 [place] [address] documented as of this encounter Visit Diagnoses Not on filedocumented in this encounter Additional Health Concerns Assessment Noted Time PHQ-9 Depression Total Score: 19 023 9:24 AM EDT documented as of this encounter Care Teams Information Clerk Automobile Club Relationship Specialty Start Date End Date Emilie Davis MD [address] [place] [address] PCP - General Family Medicine 05/13/18 Morales Echavarria FNP 230 [place] [address] Nurse Practitioner Family Medicine 04/16/[address] [place] [address] Gastroenterology 05/26/24 Fred Castanon [address] [place] [address] 07/21/24 documented as of this encounter
--- OUTSIDE RECORDS SUMMARY | 2025-02-01 14:24 | XMS_ITS | Encounter Summary ---
Author Organization [facility] Address 75 [facility] 7t [place] [address] Care Team Providers Care Corporate Treasury Analyst Name Role Phone Emilie Davis MD Primary Care Provider +1- [phone] Morales Echavarria PALS SPECIALIST Unavailable Unavailable August Unavailable Fred Castanon Unavailable Encounter Details Date Type Department Care Team (Late st Contact Info) Description 05/27/[address] [phone] Emilie Davis MD [address] [place] [address] [phone] Social History Tobacco Use Types Packs/Day Years [...] Description 03/03/2025 9:30 AM EDT Office Visit [address] [phone] Emilie Davis MD [address] [place] [address] [phone] 03/24/2025 11:00 AM EST Clinical Support [address] [phone] Medina Lewis RONALD 230 [place] [address] 06/04/2025 3:00 PM EST Office Visit [facility] OPTOMETRY [address] [place] [address] Merissa Donis, OD 230 [place] [address] documented as of this encounter Procedures Procedure [...] ORDERABLES F inal Result Performing Organization Address City/[facility]/ZIP Co de Phone Number [facility] [address] [place] [address] [phone] documented in this encounter Visit Diagnoses Not on filedocumented in this encounter Care Teams Corporate Treasury Analyst Relationship Specialty Start Date End Date Emilie Davis MD 230 [place] [address] PCP - General Family Medicine 05/13/18 Morales Echavarria FNP [address] [place] [address] Nurse Practitioner Family Medicine 04/16/23 Aida Orozco [address] [place] [address] 3rd [place] [address] Gastroenterology 05/26/24 Fred Castanon [address] [place] [address] 3rd [place] [address] 07/21/24 documented as of this encounter
--- OUTSIDE RECORDS SUMMARY | 2025-02-01 14:24 | XMS_ITS | Encounter Summary ---
Author Organization [employer] Address 75 [facility] 7t [place] [address] Care Team Providers Care Explosives Detonator Name Role Phone Emilie Davis MD Primary Care Provider +1- [phone] Morales Echavarria Unavailable Unavailable August Unavailable Fred Castanon Unavailable Reason for Visit * Reason Comments Med Refill Encounter Details Date Type Department Care Team (Late st Contact Info) Description 01/17/2024 Refill [facility] MEDICINE [address] [place] [address] Emilie Davis MD 230 [place], [place] [phone] 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) Social [...] Description 03/03/2025 9:30 AM EDT Office Visit [facility] MEDICINE [address] [place] [address] Emilie Davis MD 230 [place] [address] 03/24/2025 11:00 AM EST Clinical Support [facility] MEDICINE [address] [place] [address] Medina Lewis, RN 230 [place] [address] 06/04/2025 3:00 PM EST Office Visit [facility] OPTOMETRY [address] [place] [address] Merissa Donis, OD 230 [place] [address] documented as of this encounter Visit Diagnoses Diagnosis Gender 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- Primary documented in this encounter Additional Health Concerns Assessment Noted Time PHQ-9 Depression Total Score: 3 04/30/20 23 9:17 AM EST documented as of this encounter Care Teams Explosives Detonator Relationship Specialty Start Date End Date Emilie Davis MD 230 [place] [address] PCP - General Family Medicine 05/13/18 Morales Echavarria FNP [address] [place] [address] Nurse Practitioner Family Medicine 04/16/23 Aida Orozco [address] [place] [address] Gastroenterology 05/26/24 Fred Castanon [address] [place] [address] 07/21/24 documented as of this encounter
--- OUTSIDE RECORDS SUMMARY | 2025-02-01 14:24 | XMS_ITS | Encounter Summary ---
Author Organization [employer] Address 75 [facility] 7t [place] [address] Care Team Providers Care Data Deliverables Manager Name Role Phone Emilie Davis MD Primary Care Provider +- [phone] Morales Echavarria LICENSED PROFESSIONAL COUNSELOR Unavailable Unavailable August Unavailable Fred Castanon Unavailable Encounter Details Date Type Department Care Team (Late st Contact Info) Description 04/22/2022 Orders Only [facility] [address] [place], [place] [phone] Emilie Davis MD [address] [place] [address] [phone] HSV (herpes simplex virus) anogenital infection (Primary [...] Description 03/03/2025 9:30 AM EDT Office Visit [address] [phone] Emilie Davis MD [address] [place] [address] [phone] 03/24/2025 11:00 AM EST Clinical Support [address] [place] [address] Medina Lewis, RN 230 [place] [address] 06/04/2025 3:00 PM EST Office Visit [facility] OPTOMETRY [address] [place] [address] Merissa Donis, OD 230 [place] [address] documented as of this encounter Visit Diagnoses Diagnosis HSV (herpes simplex virus) anogenital infection- Primary Herpes simplex without mention of complication documented in this encounter Care Teams Data Deliverables Manager Relationship Specialty Start Date End Date Emilie Davis MD [address] [place] [address] PCP - General Family Medicine 05/13/18 Morales Echavarria FNP [address] [place] [address] Nurse Practitioner Family Medicine 04/16/23August [address] [place] [address] 3[address] [place] [address] Gastroenterology 05/26/24 Fred Castanon [address] [place] [address] 07/21/24 documented as of this encounter
--- OUTSIDE RECORDS SUMMARY | 2025-02-01 14:24 | XMS_ITS | Encounter Summary ---
Author Organization [employer] [facility] Address 75 [facility] 7t [place] [address] Care Team Providers Care Steel Division Supervisor Name Role Phone Emilie Davis MD Primary Care Provider +1- [phone] Morales Echavarria Unavailable Unavailable August Unavailable Fred Castanon Unavailable Encounter Details Date Type Department Care Team (Late st Contact Info) Description 11/28/2022 Abstract [facility] MEDICINE [address] [place] [address] Emilie Davis MD 230 [place], [place] [phone] Social History Tobacco Use Types Packs/Day Years [...] Description 03/03/2025 9:30 AM EDT Office Visit [facility] MEDICINE [address] [place] [address] [phone] Emilie Davis MD [address] [place] [address] [place] [address] 03/24/2025 11:00 AM EST Clinical Support [facility] MEDICINE 230 [place] [address] Medina Lewis, RONALD 230 [place] [address] 06/04/2025 3:00 PM EST Office Visit [facility] OPTOMETRY [address] [place] [address] Merissa Donis, OD 230 [place] [address] documented as of this encounter Visit Diagnoses Not on filedocumented in this encounter Additional Health Concerns Assessment Noted Time PHQ-9 Depression Total Score: 19 023 9:24 AM EDT documented as of this encounter Care Teams Steel Division Supervisor Relationship Specialty Start Date End Date Emilie Davis MD [address] [place] [address] PCP - General Family Medicine 05/13/18 Morales Echavarria FNP [address] [place] [address] Nurse Practitioner Family Medicine 04/16/23 Aida Orozco [address] [place] [address] Gastroenterology 05/26/24 Fred Castanon [address] [place] [address] 07/21/24 documented as of this encounter
--- OUTSIDE RECORDS SUMMARY | 2025-02-01 14:24 | XMS_ITS | Encounter Summary ---
Author Organization [employer] Address 75 [facility] 7t [place] [address] Care Team Providers Care Mortgage Loan Funder Name Role Phone Emilie Davis MD Primary Care Provider +1- [phone] Morales Echavarria QA SOFTWARE TEST ENGINEER Unavailable Unavailable August Unavailable Fred Castanon Unavailable Reason for Visit * Reason Onset Date Comments Hospital Follow-up 01/04/2025 No Show 01/04/2025 Pt no show for h df Encounter Details Date Type Department Care Team (Late st Contact Info) Description 01/04/2025 Telephone [facility] MEDICINE [address] [place], [place] [phone] Emilie Davis MD 230 [place], [place] [phone] Hospital Follow-up; No Show (Pt no show [...] 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 Hospital: [facility] Date of admission: 12/29 Discharge date: 12/31 Diagnosed: Gastritis and inflammation of the pancreas *Send message to [facility] Clinical Care Coordinators documented in this encounter Plan of Treatment Upcoming Encounters Date Type Department Care Team (Late st Contact Info) Description 03/03/2025 9:30 AM EDT Office Visit [facility] MEDICINE [address] [place] [address] Emilie Davis MD [address] [place] [address] 03/24/2025 11:00 AM EST Clinical Support [facility] MEDICINE [address] [place] [address] Medina Lewis, RONALD [address] [place] [address] 06/04/2025 3:00 PM EST Office Visit [facility] OPTOMETRY [address] [place] [address] Merissa Donis, GINA 230 [place] [address] documented as of this encounter Visit Diagnoses Not on filedocumented in this encounter Additional Health Concerns Assessment Noted Time PHQ-9 Depression Total Score: 3 04/30/20 9:17 AM EST documented as of this encounter Care Teams Mortgage Loan Funder Relationship Specialty Start Date End Date Emilie Davis MD 230 [place] [address] PCP - General Family Medicine 05/13/18 Morales Echavarria FNP [address] [place] [address] Nurse Practitioner Family Medicine 04/16/[address] [place] [address] Gastroenterology 05/26/[address] [place] [address] 07/21/24 documented as of this encounter
--- OUTSIDE RECORDS SUMMARY | 2025-02-01 14:25 | XMS_ITS | Clinical Summary ---
Author Organization [facility] Address [address] [address] Phone Care Team Providers Care Communications Media Professor Name Role Phone Emilie Davis MD [...] ACO C3 ACO C3 ACO C3 ACO [facility] C3 ACO [employer] Advance Directives For more information, please contact: [phone] (9AM - 5PM [facility], Saturday-Saturday) * Full Code (Presumed) (Latest Code Status on File) Date Activated Date Inactivated Comments 10/28/2018 9:51 AM 10/28/2018 7:25 PM Care Teams Communications Media Professor Relationship Specialty Start Date End Date [place], Emilie Way MD [address] [place] [address] PCP - General Family Medicine 06/03/18 Additional Source Comments The information contained in this document represents components of the legal health record. It is not the complete legal health record.[facility]
--- OUTSIDE RECORDS SUMMARY | 2025-02-01 14:25 | XMS_ITS | Clinical Summary ---
Author Organization [employer] Address [address] [facility] [address] [place] [address] Care Team Providers Care Vp Medical Name Role Phone Emilie Davis MD Primary Care Provider [phone] Morales Echavarria Unavailable Unavailable August Unavailable Fred Castanon Unavailable Allergies Active Allergy Reactions Criticality Noted Date Comments Penicillins Anaphylaxis,Rash High 05/16/2017 Sumatriptan 10/28/2018 Medications * This document contains information received from the source organization and may not represent a complete record from that organization. Needle, Disp, (BD Disp Liberty) 25G X 5/8 miscIndication s:Gender dysphoria in [...] Active cholecalcifero l (Vitamin D-3) 1.25 MG (57417 UT) capsule Take 1 capsule by mouth [...] bile duct dilatation, concerning for malignancy. Recommend lockstitch sleeve setter consultation, ERCP and tissue sampling. Idiopathic acute pancreatitis without infection or necrosis 12/31/2024 Overview (12/31/2024): -dx at [facility] 12/2024 Patient admitted to general medical [...] tonsils/cerebellar tonsil ectopia -seen by flor Rodriguez, RN ELIGIBILITY 09/24/24 As patient has new onset left-sided [...] XR 05/20/24 Coronary artery disease invo lving jamul heart without angina pectoris 05/20/2024 Overview (10/15/2024): Hx NSTE [place] 09/2017 -continue oscar -Stress test without evidence [...] (A) 03/18/2024 RPRQUANT Non-Reactive 03/18/2024 -will call [facility] regarding need for testing 03/23/24 -pt allergic [...] care facilitated by Alessio. -dental home is [facility] -health care proxy filed 03/16/24 Assessment & Plan (03/17/2024 6:12 AM EST): -next physical exam due after 03/16/2025 -eye care facilitated by Alessio. -dental home is [facility] -health care proxy filed 03/16/24 Assessment [...] rays suggests osteoarthritis. Seen by rheumatology in [place]. Ibuprofen and NSAIDs cause gastritis. Minimal relief with acetaminophen. He was referred back to rheumatology in [place] 08/23/2020 but provider left the area. started on Tramadol. Take 3 times per week. He is not taking at this time. Assessment & Plan (03/17/2024 6:08 AM EST): X rays suggests osteoarthritis. Seen by rheumatology in [place]. Ibuprofen and NSAIDs cause gastritis. Minimal relief with acetaminophen. He was referred back to rheumatology in [place] 08/23/2020 but provider left the area. started on Tramadol. Take 3 times per week. He is not taking at this time. Assessment & Plan (03/22/2023 9:15 AM EST): X rays suggests osteoarthritis. Seen by rheumatology in [place]. Ibuprofen and NSAIDs cause gastritis. Minimal relief with acetaminophen. He was referred back to rheumatology in [place] 08/23/2020 but provider left the area. started on Tramadol. Take 3 times per week. Will need COT in the future. Assessment & Plan (12/06/2022 8:54 AM EDT): X rays suggests osteoarthritis. Seen by rheumatology in [place]. Ibuprofen and NSAIDs cause gastritis. Minimal relief with acetaminophen. He was referred back to rheumatology in [place] 08/23/2020 but provider left the area. started on Tramadol. Take 3 times per week. Will need COT in the future. Assessment & Plan (10/11/2022 9:58 AM EDT): X rays suggests osteoarthritis. Seen by rheumatology in [place]. Ibuprofen and NSAIDs cause gastritis. Minimal relief with acetaminophen. He was referred back to rheumatology in [place] 08/23/2020 but provider left the area. started [...] Now with palpitations. Will refer to his experimental welder for bradycardia. Assessment & Plan (03/22/2023 9:16 AM EST): Sinus bradycardia and asymptomatic. Pt states he always has slow heart rate Pt repots heart rate in 40s recorded with home BP monitor with symptoms of dizziness recorded at home. Now with palpitations. Will refer to his experimental welder for bradycardia. Assessment & Plan (12/06/2022 8:54 AM EDT): Sinus bradycardia and asymptomatic. Pt states he always has slow heart rate Pt repots heart rate in 40s recorded with home BP monitor with symptoms of dizziness recorded at home. Now with palpitations. Will refer to his experimental welder for bradycardia. Assessment & Plan (10/11/2022 9:58 AM EDT): Sinus bradycardia and asymptomatic. Pt states he always has slow heart rate Pt repots heart rate in 40s recorded with home BP monitor with symptoms of dizziness recorded at home. Now with palpitations. Will refer to his experimental welder for bradycardia. Generalized abdominal pain 06/25/2021 Overview [...] for GI. Insurance no longer accepted at [facility]. -EGD scheduled for December 2021. [...] for GI. Insurance no longer accepted at [facility]. -EGD scheduled for December 2021. [...] for GI. Insurance no longer accepted at [facility]. -EGD scheduled for December 2021. [...] for GI. Insurance no longer accepted at [facility]. -EGD scheduled for December 2021. [...] for GI. Insurance no longer accepted at [facility]. -EGD scheduled for December 2021. History of non-ST elevation myocardial infarctio n (NSTEMI) 06/25/2021 Overview (10/15/2024): Hx NSTE [place] 09/2017. See CAD for plan. Assessment & Plan (05/20/2024 4:29 PM EST): Hx NSTE [place] 09/2017 -continue oscar -Stress test without evidence of ischemia 04/08/18 -he held statin and ASA due to GI upset -trial of restarting statin 01/[address] on 05/08/24 showed Coronary artery atherosclerosis. Pt wants to get reestablished with cardiology. -referral sent 05/20/24 Assessment & Plan (03/22/2023 9:17 AM EST): Hx NSTE [place] 09/2017 -continue oscar -Stress test without evidence of ischemia 04/08/18 -he held statin and ASA due to GI upset -trial of restarting statin 01/2019 Assessment & Plan (12/06/2022 8:55 AM EDT): Hx NSTE [place] 09/2017 -continue oscar -Stress test without evidence of ischemia 04/08/18 -he held statin and ASA due to GI upset -trial of restarting statin 01/2019 Assessment & Plan (10/11/2022 9:57 AM EDT): Hx NSTE [place] 09/2017 -continue oscar -Stress test without evidence of ischemia 04/08/18 -he held statin and ASA due to GI upset -trial of restarting statin 01/2019 Seasonal allergies 06/25/2021 Gender 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 10/03/2018 Overview (03/26/2024): Pt identifies as male and is changed his name in [place] October 2020. -He restarted testosterone 08/2020 -S/p chest reconstruction 10/2018 -Testosterone was 654 on 10/2022 Lab Results Component Value Date TESTTOTAL 1641 (A) 03/18/2024 HGB 16.2 (H) 03/18/2024 HGB 15.8 10/18/2022 HCT 47.3 (H) 03/18/2024 Goal testosterone levels 350-700ng/dl. Assessment & Plan (03/17/2024 6:12 AM EST): Pt identifies as male and is changing his name in [place] October 2020. He restarted testosterone 08/2020 S/p chest reconstruction 10/2018 Pt would like to switch small needle to subcutaneous instead. 25 gague needles sent 12/06/2022 Testosterone was 654 on 10/2022. Assessment & Plan (03/22/2023 9:16 AM EST): Pt identifies as male and is changing his name in [place] October 2020. He restarted testosterone 08/2020 S/p chest reconstruction 10/2018 Pt would like to switch small needle to subcutaneous instead. 25 gague needles sent 12/06/2022 Testosterone was 654 on 10/2022. Assessment & Plan (12/06/2022 11:18 AM EDT): Pt identifies as male and is changing his name in [place] October 2020. He restarted testosterone 08/2020 S/p chest reconstruction 10/2018 Pt would like to switch small needle to subcutaneous instead. 25 gague needles sent 12/06/2022 Testosterone was 654 on 10/2022. Assessment & Plan (10/11/2022 9:59 AM EDT): Pt identifies as male and is changing his name in [place] October 2020. He restarted testosterone 08/2020 S/p chest reconstruction 10/[address] scan, lung 10/04/2017 Overview (05/20/2024): -Ct scan in [facility] on 12/25/2017 showed multiple indeterminate [...] 11/15/23 and NO SHOW. Pt can call [phone] to schedule mariely. number given to call 03/16/24 -CT 05/08/24 No acute intrathoracic findings. Calcified granulomas present bilaterally. No suspicious pulmonary nodule identified. Air-fluid level present within the midthoracic esophagus can be associated with gastroesophageal reflux disease and esophageal dysmotility. Coronary artery atherosclerosis. Assessment & Plan (05/20/2024 4:05 PM EST): -Ct scan in [facility] on 12/25/2017 showed multiple indeterminate [...] 11/15/23 and NO SHOW. Pt can call [phone] to schedule mariely. number given to call 03/16/24 -CT 05/08/24 No acute intrathoracic findings. Calcified granulomas present bilaterally. No suspicious pulmonary nodule identified. Air-fluid level present within the midthoracic esophagus can be associated with gastroesophageal reflux disease and esophageal dysmotility. Coronary artery atherosclerosis. Assessment & Plan (03/17/2024 6:13 AM EST): -Ct scan in [place] ER on 12/25/2017 showed multiple indeterminate nodules, [...] 11/15/23 and NO SHOW. Pt can call [phone] to schedule mariely. number given to call 03/16/24 Assessment & Plan (03/22/2023 9:16 AM EST): -Ct scan in [place] ER on 12/25/2017 showed multiple indeterminate nodules, largest was solid and measured 2mm. -Given that the Pt has a tobacco Hx and quit in 2018 we referrred to pulmonology that was likely distrupted by the pandemic. -Will ordered repeat CT of chest to follow the nodles. Assessment & Plan (12/06/2022 10:18 AM EDT): -Ct scan in [place] ER on 12/25/2017 showed multiple indeterminate nodules, [...] treatment engagement. PLAN: 1. Follow up with [facility]: Not recommended for follow-up 2. Patient goal is to learn coping mechanisms to manage sxs. 3. Behavioral Recommendations a. Ind. Therapy and Medication Management b. Continue using coping skills c. [facility] support as needed. Mild major depression 06/25/20212023 Encounters Date Type Department Care Team Description 01/27/2025 11:00 AM EDT Clinical Support [address] [phone] Medina Lewis RN On pre-exposure prophylaxis for HIV (Primary Dx) 01/27/2025 Orders Only [address] [address] Emilie Davis MD 01/27/2025 Travel 01/21/2025 Travel 01/19/2025 Orders Only [facility] External Provider, [facility] Pancreatic mass (Primary Dx) 01/15/2025 Orders Only GENERIC EXTERNAL DATA DEPARTMENT Provider, Generic External Data 01/14/2025 Orders Only [facility] External Provider, [facility] Generalized abdominal pain (Primary Dx) 01/08/2025 Orders Only GENERIC EXTERNAL DATA DEPARTMENT Provider, Generic External Data 01/07/[address] [address] Emilie Davis MD Call Back Request; Injectable PrEP Communication 01/04/2025 Patient Outreach [address] [address] Emilie Davis MD Transition Of Care (Tcm) (HDF unscheduled) 01/04/[address] [address] Emilie Davis MD Nurse Triage 01/04/[address] [address] Emilie Davis MD Hospital Follow-up; No Show (Pt no show for hdf ) 12/29/2024 Orders Only GENERIC EXTERNAL DATA DEPARTMENT Provider, Generic External Data 11/26/2024 9:30 AM EDT Clinical Support [address] [address] Medina Lewis, RONALD On pre-exposure prophylaxis for HIV (Primary Dx) 11/26/2024 Orders Only [address] [address] Emilie Davis MD 11/26/2024 Travel 11/26/[address] [address] Emilie Davis MD Appointment Request 11/25/[address] [address] Emilie Davis MD February11/16/2024 Telephone [facility] MEDICINE [address] [place] [address] Medina Lewis RN from Last 3 Months [...] Industry Job Start Date Job End Date [employer] Not on file Not on file [...] Description 03/03/2025 9:30 AM EDT Office Visit [facility] MEDICINE [address] [place] [phone] Emilie Davis MD [address] [place] [address] 03/24/2025 11:00 AM EST Clinical Support [facility] MEDICINE [address] [place] [phone] Medina Lewis, RN [address] [place] [address] 06/04/2025 3:00 PM EST Office Visit [facility] OPTOMETRY [address] [place] [address] Merissa Donis, OD [address] [place] [address] Health Maintenance Due Date Last Done Comments [...] Completed 03/16/2024, 01/07/2023, 12/07/2022 HIV Screening Completed 01/27/2025, 11/10, 09/22/2024, Additional history exists HIB Vaccines Aged Out [...] PM EDT On pre-exposure prophylaxis for HIV HIV 1 RNA, QUANTITATIVE REAL TIME PCR Routine 01/27/2025 11:53 AM EDT COMPREHENSIVE METABOLIC [...] Blood Count 8.0 4.8 - 10.8 X10*3/uL [facility] Red Blood Count 4.83 4.20 - 5.50 X10*6/uL [facility] Hemoglobin 14.2 12.0 - 16.0 g/dl [facility] Hematocrit 43.2 37.0 - 47.0 % [facility] Mean Corpuscular Volume 89.4 80.0 - 98.0 fL [facility] Mean Corpuscular Hemoglobin 29.4 27.0 - 33.0 pg [facility] Mean Corpuscular HGB Conc 32.9 31.0 - 35.0 g/dl [facility] Red Cell Distribution Width 14.6 11.0 - 16.0 % [facility] Platelet Count 329 160 - 400 X10*3/uL [facility] Mean Platelet Volume 9.6 9.4 - 12.3 fL [facility] Neutrophils Percent Auto 58.2 45 - 73 % [facility] Imm Gran Pct Auto 0.2 0.0 - 0.4 % [facility] Lymphocytes Percent Auto 33.1 20 - 40 % [facility] Monocytes Percent Auto 6.1 2 - 11 % [facility] Eosinophils Percent Auto 1.9 0 - 4 % [facility] Basophils Percent Auto 0.5 0 - 2 % [facility] NRBC Pct Auto 0.0 0.0 - 0.2 /100WBC [facility] Neutrophils Absolute Auto 4.7 2.0 - 8.3 x10*3/uL [facility] Imm Gran Abs Auto 0.02 0.00 - 0.03 X10*3/uL [facility] Lymphocytes Absolute Auto 2.7 1.2 - 4.9 X10*3/uL [facility] Monocytes Absolute Auto 0.5 0.1 - 1.2 X10*3/uL [facility] Eosinophils Absolute Auto 0.2 0.0 - 0.4 X10*3/uL [facility] Basophils Absolute Auto 0.0 0.0 - 0.2 X10*3/uL [facility] NRBC Abs Auto 0.000 0.0 - 0.012 X10*3/uL [facility] 01/27/2025 11:5 3 AM EDT 01/27/2025 1:16 PM EDT us Emilie Davis MD LAB BLOOD ORDERABLES Final Result Performing Organization Address [facility]/ZIP Co de Phone Number [facility] [address] [place] [phone] * HIV-1 RNA, Quantitative, Real-Time PCR (01/27/2025 11:53 AM EDT) Only the most recent of2 resultswithin the time period is included. Pathologist [facility] HIV RNA PCR Qn Copies NOT DETECTED NOT DETECTED copies/mL [facility] HIV RNA PCR Qn Log Copies NOT DETECTED NOT DETECTED [facility] Comment:Result Units: Log co pies/mLThis test was performed using Real-Time Polymerase ChainReaction.Reportable Range: 20 copies/mL to 10,000,000 copies/mL(1.30 log copies/mL to 7.00 log copies/mL).THIS TEST WAS PERFORMED AT:[facility] [place] [phone] MALDONADO MD 01/27/2025 11:5 3 AM EDT 01/27/2025 1:16 PM EDT Emilie Davis MD LAB BLOOD ORDERABLES Final Result Performing Organization Address [facility] de Phone Number [facility] [address] [place] [phone] * (ABNORMAL) Comprehensive Metabolic Panel (01/27/2025 11:53 AM EDT) Only the most recent of2 resultswithin the time period is included. Pathologist [facility] Sodium 143 135 - 145 mmol/L [facility] Potassium 3.8 3.3 - 5.1 mmol/L [facility] Chloride 108 96 - 108 mmol/L [facility] Carbon Dioxide 30(H) 22 - 29 mmol/L [facility] Anion Gap 9(L) 12 - 20 [facility] Urea Nitrogen (BUN) 13 9 - 16 mg/dL [facility] Creatinine, Serum 0.79 0.5 - 1.4 mg/dL [facility] Estimated Glomerular Filt Rate >60 [facility] Comment:Chronic Kidney Disea se: Estimated GFR < 60 mL/min/1.65y7Wwrftp Kidney Disease: Estimated GFR < 15 mL/min/1.73m2 Glucose 78 60 - 115 mg/dL [facility] Calcium 9.1 8.4 - 10.2 mg/dL [facility] Bilirubin, Total 0.2 0.0 - 1.0 mg/dL [facility] Aspartate Amino Transferase 22 5 - 31 U/L [facility] Alanine Aminotransferase 18 0 - 31 U/L [facility] Total Protein 7.2 6.5 - 8.0 g/dL [facility] Albumin Level 4.2 3.5 - 5.0 g/dL [facility] Alkaline Phosphatase 79 39 - 117 U/L [facility] 01/27/2025 11:5 3 AM EDT 01/27/2025 1:16 PM EDT Emilie Davis MD LAB BLOOD ORDERABLES Final Result [facility] [address] [place] [phone] * MR Abdomen w/ and w/o Contrast (01/20/2025 4:03 PM EDT) Anatomical Region Laterality Modality Abdomen Magnetic Resonan ce 01/20/2025 4:03 PM EDT Narrative 01/20/2025 4:05 PM EDT [address] [address] Magnetic Resonance Report Signed with Steve Patient: Harriet Valdez MR#: [id number] : 1970 Acct:[id number] Age/Sex: 54 / F ADM Date: 01/19/25 Loc: HO.MRI Attending Dr: Cha Mills MD Ordering Physician: Cha Mills MD Date of Service: 01/19/25 Procedure(s): MR abdomen wo/w con Accession Number(s): [id number] cc: Emilie Davis MD; Cha Mills MD [...] bile duct dilatation, concerning for malignancy. Recommend lockstitch sleeve setter consultation, ERCP and tissue sampling. 2. Subcentimeter right hepatic hemangioma and cyst. 3. Diverticulosis coli. This document has been electronically signed by: Yumiko Jones MD on 01/20/2025 16:03:51 Dictated By: Yumiko Jones MD Signed By: <Electronically signed by Yumiko Jones MD in OV> 01/20/25 160 DD/ 160 TD/TT: 01/20/25 160 [employer] Upholsterer: Procedure Note Donotuseinterpreter, Image - 01/20/2025 [place] [address] Magnetic Resonance Report Signed with Addenda Patient: Harriet ValdezMR#: [id number] : 1970Acct:[id number] Age/Sex: 54 / FADM Date: 01/19/25 Loc: HO.MRI Attending Dr: Cha Mills MD Ordering Physician: Cha Mills MD Date of Service: 01/19/25 Procedure(s): MR abdomen wo/w con Accession Number(s): [id number] cc: Emilie Davis MD; Cha Mills MD [...] By: <Electronically signed by Yumiko Jones MD inO> 01/20/25 5547 Addendum Cosigned By: DD/ /06/1603 TD/TT: 01/20/2503/06/1627 [...] bile duct dilatation, concerning for malignancy. Recommend lockstitch sleeve setter consultation, ERCP and tissue sampling. 2. Subcentimeter right hepatic hemangioma and cyst. 3. Diverticulosis coli. This document has been electronically signed by: Yumiko Jones MD on 01/20/2025 16:03:51 Dictated By: Yumiko Jones MD Signed By: <Electronically signed by Yumiko Jones MD in OV> 01/20/251604 DD/ 02 TD/TT: 01/20/251602 [employer]phol[employer]rer: [facility] External Provider IMG MRI PROCEDURES Edited Result - Final * Hematoxylin and Eosin Stain (01/15/2025 3:32 PM EDT) 01/15/2025 3:32 PM EDT 01/18/2025 7:08 AM EDT [facility] - 01/19/2025 12:19 PM EDT ----- ------- Name: Harriet Valdez Age/Sex: 54/F : 1970 Unit#: [id number] Attend Dr: Mary Alice Mayorga MD Re01/15/25 Status: [facility] Location: .[facility] Disch: ----- ------- SPEC : [id number] RECD: 01/18/25 STATUS: JANIE REJacqueline NUM: [id number] AMBREEN: 01/15/[address] [facility] [address]: Mary Alice Mayorga MD ENTERED: 01/18/25 SP TYPE: Surgical OTHR DR: Emilie Davsi MD ORDERED: HE Stain/6, Gross Micro L4/2, [...] developed and their performance characteristics determined by [facility]. They have not been cleared or approved by the U.S. Food and Drug Administration (FDA). However, the FDA CONTINUED ON NEXT PAGE ----- ------- Name: Trace Roberson,Harriet Age/Sex: 54/F : 1970 Unit#: [id number] Attend Dr: Mary Alice Mayorga MD Re01/15/25 Status: [facility] Location: [facility] Disch: ----- ------- SPEC : [id number] RECD: 01/18/25 STATUS: JANIE DUNLAP NUM: [id number] AMBREEN: 01/15/25-[address] [facility] [address]: Mary Alice Mayorga MD ENTERED: [...] testing. Copies To: Emilie Davis MD [address] [phone] Mary Alice Mayorga MD [facility] [address] [place] [phone] ----- ------- Signed (signature on file) Yara Dodson MD 01/19/25 1219 ----- ------- END OF REPORT us Generic External Data Provider LAB BLOOD ORDERAB LES Final Result [facility] [address] [place] [phone] * Prothrombin Time-INR (01/14/2025 3:40 PM EDT) Prothrombin Time 11.7 10.9 - 12.4 SEC [facility] INTERNATIONAL NORM RATIO 1.0 0.9 - 1.1 [facility] Comment:INTERNATIONAL NORMAL IZED RATIO (INR) [...] Provider LAB BLOOD ORDERAB LES Final Result [facility] [address] [place] [phone] * FL Esophagus Barium Swallow (01/14/2025 9:40 AM EDT) Anatomical Region Laterality Modality Head, Neck Radiographic Auroar ging 01/14/2025 9:40 AM EDT Narrative 01/14/2025 11:23 AM EDT [address] [address] Fluoroscopy Report Signed Patient: Harriet Valdez MR#: [id number] : 1970 Acct:[id number] Age/Sex: 54 / F ADM Date: 01/14/25 Loc: MARINO Attending Dr: Aida ASH Ordering Physician: Aida Orozco Date of Service: 01/14/25 Procedure(s): FL barium swallow Accession Number(s): [id number] cc: Emilie Davis MD; Aida Orozco Reason [...] 01/14/25 1120 DD/ 0940 TD/TT: 01/14/25 0955 [employer]rer: [facility] Procedure Note Donotuseinterpreter, Image - 01/14/2025 [place] [address] Fluoroscopy Report Signed Patient: Harriet ValdezMR#: [id number] : 1970Acct:[id number] Age/Sex: 54 / FADM Date: 01/14/25 Loc: HODEANGELO Attending Dr: Aida ASH Ordering Physician: Aida Orozco Date of Service: 01/14/25 Procedure(s): FL barium swallow Accession Number(s): [id number] cc: Emilie Davis MD; Orozco,Aida ANP-C Reason for Exam: R11.10 - Vomiting, [...] 01/14/25 1120 DD/ 0940 TD/TT: 01/14/25 0955 [employer]ol[employer]rer: MADINA [facility] External Provider IMG FLU OROSCOPY PROCEDURES Final Result * XR Abdomen 2 View minimum (01/08/2025 10:50 AM EDT) Anatomical Region Laterality Modality Abdomen Radiographic Aurora ging 01/08/2025 10:5 0 AM EDT Narrative 01/08/2025 12:26 PM EDT [address] [address] XRay Report Signed Patient: Harriet Valdez MR#: [id number] : 1970 Acct:[id number] Age/Sex: 54 / F ADM Date: 01/08/25 Loc: MARINO Attending Dr: Aida ASH Ordering Physician: Aida Orozco Date of Service: 01/08/25 Procedure(s): XR abdomen min 2V Accession Number(s): [id number] cc: Emilie Davis MD; Aida Orozco EXAMINATION: [...] 01/08/25 1223 DD/ 1050 TD/TT: 01/08/25 1057 [employer]phol[employer]rer: Procedure Note Donotuseinterpreter, Image - 01/08/2025 [place] [address] XRay Report Signed Patient: Harriet ValdezMR#: [id number] : 1970Acct:[id number] Age/Sex: 54 / FADM Date: 01/08/25 Loc: MARINO Attending Dr: Aida ASH Ordering Physician: Aida Orozco Date of Service: 01/08/25 Procedure(s): XR abdomen min 2V Accession Number(s): [id number] cc: Emilie Davis MD; Aida Orozco EXAMINATION: [...] 01/08/25 1223 DD/ 1050 TD/TT: 01/08/25 1057 [employer] Upholsterer: [facility] External Provider IMG XR PROCEDURES Edited Result - Final * (ABNORMAL) VITAMIN D 25-OH (D2 AND D3) (01/08/2025 10:47 AM EDT) Vitamin D, 25-OH, D2 <4 ng/mL [facility] Comment:This test was develo ped and its analytical performancecharacteristics have been determined by [employer] [place], [place]. It hasnot been cleared or approved by the U.S. Food and DrugAdministration. This assay has been validated pursuantto the CLIA regulations and is used for clinicalpurposes.THIS TEST WAS PERFORMED AT:[employer] [id number] [place] [phone] ESTEVEZ MD,PHD Vitamin D, 25-OH, D3 28 ng/mL [facility] [facility] Comment:This test was develo ped and its analytical performancecharacteristics have been determined by [employer] [place], [place]. It hasnot been cleared or approved by the U.S. Food and DrugAdministration. This assay has been validated pursuantto the CLIA regulations and is used for clinicalpurposes. Vitamin D, 25-OH, Total 28(A) 30 - 100 ng/mL [facility] Comment:Vitamin D, 25-Hydrox y reports [...] = 30 ng/mL.For additional information, please refer tohttp://education.VIAP/faq/DKJ355(This link is being provided for informational/educational purposes only.) 01/08/2025 10:4 7 AM EDT 01/08/2025 10:47 AM EDT Generic External Data Provider LAB BLOOD ORDERAB LES Final Result Performing Organization Address City/[facility] Co de Phone Number [facility] [address] [place] [address] [phone] * Sed Rate by Modified Westergren (01/08/2025 10:47 AM EDT) Pathologist [facility] Erythrocyte Sedimentation Rate 9 0 - 20 MM/HR [facility] Comment:Patients with polycy themia and many hemoglobin abnormalitiesmay have depressed sed rates whereas patients with anemiamay have elevated sed rates. 01/08/2025 10:4 7 AM EDT 01/08/2025 10:47 AM EDT Generic External Data Provider LAB BLOOD ORDERAB LES Final Result Performing Organization Address [facility] Co de Phone Number [facility] [address] [place] [address] [phone] * C-reactive Protein (01/08/2025 10:47 AM EDT) Pathologist [facility] C Reactive Protein <0.10 < or = 0.50 mg/dL [facility] 01/08/2025 10:4 7 AM EDT 01/08/2025 10:47 AM EDT Generic External Data Provider LAB BLOOD ORDERAB LES Final Result Performing Organization Address [facility]/ZIP Co de Phone Number [facility] [address] [place] [phone] * Lipase (01/08/2025 10:47 AM EDT) Only the most recent of2 resultswithin the time period is included. Lipase 33 8 - 78 U/L [facility] 01/08/2025 10:4 7 AM EDT 01/08/2025 10:47 AM EDT Generic External Data Provider LAB BLOOD ORDERAB LES Final Result Performing Organization Address [facility] Co de Phone Number [facility] [address] [place] [phone] * (ABNORMAL) Amylase (01/08/2025 10:47 AM EDT) Pathologist [facility] Amylase 114(H) 28 - 100 U/L [facility] 01/08/2025 10:4 7 AM EDT 01/08/2025 10:47 AM EDT Generic External Data Provider LAB BLOOD ORDERAB LES Final Result Performing Organization Address [facility] de Phone Number [facility] [address] [place] [address] [phone] * (ABNORMAL) Drug Monitoring, Panel 1, Screen, Urine (12/29/2024 1:09 PM EDT) Opiate Screen Urine Not Detected Not Detect [facility] Comment:Opiate cut-off is 30 0 ng/mL.Positive results are unconfirmed and should not be used fornon-medical purposes. Barbiturates, Urine Not Detected Not Detect [facility] Comment:Barbiturate cut-off is 200 ng/mL.Positive results are unconfirmed and should not be used fornon-medical purposes. Phencyclidine Screen Urine Not Detected Not Detect [facility] Comment:Phencyclidine cut-of f is 25 ng/mL.Positive results are unconfirmed and should not be used fornon-medical purposes. Amphetamine Screen Urine Not Detected Not Detect [facility] Comment:Amphetamine cut-off is 1000 ng/mL.Positive results are unconfirmed and should not be used fornon-medical purposes. Benzodiazepines Screen Urine Not Detected Not Detect [facility] Comment:Benzodiazepine cut-o ff is 200 ng/mL.Positive results are unconfirmed and should not be used fornon-medical purposes. Cocaine Screen Urine Not Detected Not Detect [facility] Comment:Cocaine cut-off is 3 00 ng/mL.Positive results are unconfirmed and should not be used fornon-medical purposes. Cannabinoid Screen Urine POSITIVE(A) Not Detect [facility] Comment:Cannabinoid cut-off is 50 ng/mL.Positive results are unconfirmed and should not be used fornon-medical purposes. Methadone Screen, Urine Not Detected Not Detect ng/mL [facility] Comment:Methadone cut-off is 300 ng/mL.Positive results are unconfirmed and should not be used fornon-medical purposes. FENTANYL URINE Not Detected Not Detect [facility] Comment:Fentanyl cut-off is 1 ng/mL.Positive results are unconfirmed and should not be used fornon-medical purposes. Oxycodone Urine Screen Not Detected Not Detect ng/mL [facility] Comment:Oxycodone cut-off is 100 ng/mL.Positive results are unconfirmed and should not be used fornon-medical purposes. Buprenorphine Screen Not Detected Not Detect ng/mL [facility] Comment:Buprenorphine cut-of f is 5 ng/mL.Positive results are unconfirmed and should not be used fornon-medical purposes. 12/29/2024 1:09 PM EDT 12/29/2024 1:16 PM EDT Generic External Data Provider LAB URINE ORDERAB LES Final Result Performing Organization Address [facility] Co de Phone Number [facility] [address] [place] [address] [phone] * Urinalysis w/reflex microscopic (12/29/2024 1:09 PM EDT) Color Urine Yellow [facility] Appearance Urine Clear [facility] PH 8.0 5.0 - 9.0 [facility] Glucose Urine UA Negative Negative mg/dL [facility] Urine Blood Negative Negative [facility] Specific [place] - Urine 1.015 1.005 - 1.025 [facility] Urine Protein Negative Neg-Trace mg/dL [facility] Urine Ketones Negative Negative mg/dL [facility] Nitrite Urine Negative Negative [facility] Leukocyte Esterase Urine Negative Negative [facility] 12/29/2024 1:09 PM EDT 12/29/2024 1:16 PM EDT Narrative [facility] - 12/29/2024 1:22 PM EDT Urine, Clean Catch us Generic External Data Provider LAB URINE ORDERAB LES Final Result Performing Organization Address [facility] Co de Phone Number [facility] [address] [place] [phone] * CT Abdomen Pelvis w/ Contrast (12/29/2024 12:55 PM EDT) Anatomical Region Laterality Modality Body, Pelvis, Abdomen Computed T omography 12/29/2024 12:5 5 PM EDT Narrative 12/29/2024 1:42 PM EDT [address] [address] [address] Scan Report Signed Patient: Harriet Valdez MR#: [id number] : 1970 Acct:[id number] Age/Sex: 54 / F ADM Date: 12/29/24 Loc: .ED Attending Dr: Ordering Physician: Cheryl Cobb DO Date of Service: 12/29/24 Procedure(s): CT abdomen pelvis w IV con Accession Number(s): [id number] cc: Emilie Davis MD; Cheryl Cobb DO Report Number: [id number]: Total DLP = 296.00 mGy-cm EXAMINATION: CT [...] 12/29/24 1340 DD/ 1255 TD/TT: 12/29/24 1329 [employer]rer: Procedure Note Donotuseinterpreter, Image - 12/29/[address] [place] [address] [address] Scan Report Signed Patient: Harriet ValdezMR#: [id number] : 1970Acct:[id number] Age/Sex: 54 / FADM Date: 12/29/24 Loc: HO.ED Attending Dr: Ordering Physician: Cheryl Cobb DO Date of Service: 12/29/24 Procedure(s): CT abdomen pelvis w IV con Accession Number(s): [id number] cc: Emilie Davsi MD; Cheryl Cobb DO Report Number: [id number]: Total DLP = 296.00 mGy-cm EXAMINATION: CT [...] 12/29/24 1340 DD/ 1255 TD/TT: 12/29/24 1329 [employer]rer: us [facility] External Provider IMG CT PROCEDURES Final Result * Hepatic Function Panel (12/29/2024 10:00 AM EDT) Bilirubin, Total 0.4 0.0 - 1.0 mg/dL [facility] Bilirubin, Direct 0.1 0.0 - 0.5 mg/dL [facility] Aspartate Amino Transferase 26 5 - 31 U/L [facility] Alanine Aminotransferase 19 0 - 31 U/L [facility] Total Protein 7.6 6.5 - 8.0 g/dL [facility] Albumin Level 4.4 3.5 - 5.0 g/dL [facility] Alkaline Phosphatase 90 39 - 117 U/L [facility] 12/29/2024 10:0 0 AM EDT 12/29/2024 10:02 AM EDT us Generic External Data Provider LAB BLOOD ORDERAB LES Final Result [facility] [address] [place] [phone] * (ABNORMAL) Basic Metabolic Panel (12/29/2024 10:00 AM EDT) Sodium 142 135 - 145 mmol/L [facility] Potassium 4.0 3.3 - 5.1 mmol/L [facility] Chloride 107 96 - 108 mmol/L [facility] Carbon Dioxide 30(H) 22 - 29 mmol/L [facility] Anion Gap 9(L) 12 - 20 [facility] Urea Nitrogen (BUN) 10 9 - 16 mg/dL [facility] Creatinine, Serum 0.75 0.5 - 1.4 mg/dL [facility] Creatinine Clr Calc Pharmacy 66.2 [facility] Comment:Provided height and weight: 162.56 cm,49.5 kg.eGFR (calculated from the MDRD study equation) and eCrCl(calculated from the Cockcroft-Gault equation) are based ondifferent parameters and may not yield comparable results.If eCrCl result is absurd, please check patient'sheight/weight. Estimated Glomerular Filt Rate >60 [facility] Comment:Chronic Kidney Disea se: Estimated GFR < 60 mL/min/1.32w7Gbvdqr Kidney Disease: Estimated GFR < 15 mL/min/1.73m2 Glucose 117(H) 60 - 115 mg/dL [facility] Calcium 9.3 8.4 - 10.2 mg/dL [facility] 12/29/2024 10:0 0 AM EDT 12/29/2024 10:02 AM EDT Generic External Data Provider LAB BLOOD ORDERAB LES Final Result Performing Organization Address [facility] Co de Phone Number [facility] [address] [place] [address] [phone] * (ABNORMAL) Confirmatory Syphilis Profile (11/26/2024 1:24 PM EDT) Pathologist [facility] Rapid Plasma Reagin, Quant Non-React darren Nonreactive [facility] Treponema pallidum Antibody, Particle Agglutination Reactive( A) Nonreactive [facility] Comment:These results must b e reported by the ordering clinician orclinical facility to the [facility] required by state law.Testing performed at: [address] [address] 11/26/2024 1:24 PM EDT 11/27/2024 3:54 AM EDT Emilie Davis MD LAB BLOOD ORDERABLES Final Result Performing Organization Address [facility] de Phone Number [facility] [address] [place] [address] [phone] * (ABNORMAL) Syphilis Screen (11/26/2024 1:24 PM EDT) Syphilis Screen Reactive( A) Nonreactive [facility] Comment:Reactive specimens a re sent to the [facility]for confirmatory tests. 11/26/2024 1:24 PM EDT 11/26/2024 4:06 PM EDT Emilie Davis MD LAB BLOOD ORDERABLES Final Result Performing Organization Address [facility] Co de Phone Number [facility] [address] [place] [phone] * Hepatitis C Viral RNA, Quantitative, Real-Time PCR (11/26/2024 1:24 PM EDT) Pathologist [facility] Hepatitis C Viral Load <15 NOT DETECTED NOT DETECTED IU/mL [facility] HCV Log PCR <1.18 NOT DETECTED NOT DETECTED Log IU/mL [facility] Comment:For additional infor nura, please refer tohttp://education.InStaff/faq/GYP55s0(This link is being provided for informational/educational purposes only.)THIS TEST WAS PERFORMED AT:[facility] [place] [phone] MALDONADO MD 11/26/2024 1:24 PM EDT 11/27/2024 2:28 PM EDT Emilie Davis MD LAB BLOOD ORDERABLES Final Result Performing Organization Address [facility]/ZIP Co de Phone Number [facility] [address] [place] [phone] * (ABNORMAL) Hepatitis C Antibody with Reflex to HCV, RNA, Quantitative, Real- Time PCR (11/26/2024 1:24 PM EDT) [facility] Hepatitis C Antibody Reactive( A) Nonreactive [facility] Comment:Presumptive evidence of antibodies to HCV. 11/26/2024 1:24 PM EDT 11/26/2024 4:06 PM EDT Emilie Davis MD LAB BLOOD ORDERABLES Final Result Performing Organization Address [facility] Co de Phone Number [facility] [address] [place] [phone] * Methylmalonic Acid (11/26/2024 1:24 PM EDT) [facility] Methylmalonic Acid 197 55 - 335 nmol/L [facility] Comment: Serum methylmalonic acid (MMA) [...] outcomes,such as neural tube defects and intrauterine growthrestriction.[facility] utilized Multi-Modal Decomposition(MMD) analysis to establish first and second trimester-specific MMA reference intervals in , as givenbelow:MMA, First trimester (<13 wks gestation): 58-167 nmol/LMMA, Second trimester (13-23 wks gestation):63-241 nmol/LThis test was developed and its analytical performancecharacteristics have been determined by [facility]. It has not been cleared or approved by theA. This assay has been validated pursuant to the CLIAregulations and is used for clinical purposes.THIS TEST WAS PERFORMED AT:[facility]ANW[facility]NN[address] [place] [phone] ESTEVEZ MD,PHD 11/26/2024 1:24 PM EDT 11/26/2024 4:06 PM EDT us Generic External Data Provider LAB BLOOD ORDERAB LES Final Result [facility] [address] [place] [phone] * RPR (Monitor) with Reflex to??Titer (11/26/2024 1:24 PM EDT) RPR (Monitor) w/Refl Titer NON-REACTI VE NON-REACT DARREN [facility] Comment:THIS TEST WAS PERFOR MED AT:[facility] [address] [phone] MALDONADO MD Rapid Plasma Reagin Ab Titer TNP [facility] 11/26/2024 1:24 PM EDT 11/26/2024 4:06 PM EDT us Emilie Davis MD LAB BLOOD ORDERABLES Final Result Performing Organization Address City/[facility]/ZIP Co de Phone Number [facility] [address] [place] [phone] * (ABNORMAL) Lipid Panel, Standard (07/24/2024 1:36 PM EDT) Triglycerides 141 <150 mg/dL [facility] Comment:Desirable Triglyceri de: less than 150 mg/dLBorderline High Triglyceride 150-199 mg/dLHigh Triglyceride: 200-499 mg/dLVery High Triglyceride: greater than or equal to 5OO mg/dL Cholesterol 205(H) <200 mg/dL [facility] Comment:Desirable Cholestero l: less than 200 mg/dLBorderline High Cholesterol: 200-239 mg/dLHigh Cholesterol: greater than 239 mg/dL LDL Cholesterol Calculated 114(H) <100 mg/dL [facility] Comment:Desirable LDL: less than 100 mg/dLNear Optimal/Above Optimal LDL: 110- 129 mg/dLBorderline High LDL: 130-159 mg/dLHigh LDL: 160-189 mg/dLVery High LDL: greater than or equal to 190 mg/dL HDL Cholesterol 63 >40 mg/dL [facility] Comment:Desirable HDL: great er than 40 mg/dL Note: This HDL assay may give artificially low results in patients with liver disease. 07/24/2024 1:36 PM EDT 07/24/2024 4:20 PM EDT us Generic External Data Provider LAB BLOOD ORDERAB LES Final Result Performing Organization Address City/[facility]/ZIP Co de Phone Number [facility] [address] [place] [address] [phone] * HPV mRNA E6/E7 w/Reflex to HPV Genotypes 16, 18/45 (03/22/2023 11:30 AM EST) HPV nRNA E6/E7 Not Detected Not Detected [facility] Comment:Methodology: Transcr iption-Mediated AmplificationThis assay detects E6/E7 viral messenger RNA (mRNA) from 14high-risk HPV types (16,18,31,33,35,39,45,51,52,56,58,59,66,68).Cervical sources are required for HPV testing.If a vaginal source from a patient who has had atotal hysterectomy with removal of cervix wassubmitted, please contact the testing laboratoryfor alternative testing options.For additional information, please refer tohttp://education.InStaff/faq/CND255j5(This link if provided for information/educational purposes only.)THIS TEST WAS PERFORMED AT:[facility] [place] [phone] MALDONADO MD HPV mRNA E6/E7 [facility] HPV 16 RNA [facility] HPV 18/45 RNA [facility] 03/22/2023 11:3 0 AM EST 03/25/2023 12:20 PM EST Emilie Davis MD LAB CYTOLOGY ORDERABLES Fi nal Result [facility] [address] [place] [phone] * Pap Smear (03/22/2023 11:30 AM EST) 03/22/2023 11:3 0 AM EST 03/25/2023 12:20 PM EST Narrative [facility] - 04/11/2023 11:26 AM EST ----- ------- Name: Harriet Valdez Age/Sex: 53/F : 1970 Unit#: [id number] Attend Dr: RADHA VILLAREAL MD Re03/22/23 Status: DEP [facility] ----- ------- SPEC : [id number] RECD: 03/25/23 STATUS: JANIE DUNLAP NUM: [id number] AMBREEN: 03/22/[address] [facility] [address]: Emilie Davis MD ENTERED: 03/25/237503 SP TYPE: Pap Smr OT DR: ORDERED: Pap Smear Interpretation Satisfactory for evaluation. Negative for intraepithelial lesion or malignancy. HPV mRNA E6/E7: NOT DETECTED This assay detects E6/E7 viral messenger RNA (mRNA) from 14 high-risk HPV types (16, 18, 31, 33, 35, 39, 45, 51, 52, 56, 58, 59, 66, 68) HPV testing performed by [facility], [place], [place]. See reference laboratory portion of the EMR for entire report. Clinical Information LMP: Unknown date Previous PAP test: Unknown date, WNL Other history: Pt on testosterone, surgical post menopause Material Received ThinPrep-Cervical ----- ------- Signed (signature on file) SERENA Alejandro (ASCP) 04/11/23 1126 ----- ------- END OF REPORT Emilie Davis MD LAB CYTOLOGY ORDERABLES Fi nal Result [facility] [address] [place] [phone] [phone] * Colonoscopy (01/30/2018) Colonoscopy normal Historical Provider HEALTH MAINTENANCE Final Result from Last 3 Months or Most Recently Relevant to Health Maintenance Insurance [facility] [employer] 3 Advance Directives Documents on File Type Date Recorded 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
--- OUTSIDE RECORDS SUMMARY | 2025-02-01 14:25 | XMS_ITS | Encounter Summary ---
Author Organization [employer] Address [address] [facility] [place] [address] Care Team Providers Care Sales Operations Lead Name Role Phone Emilie Davis MD Primary Care Provider [phone] Morales Echavarria Unavailable Unavailable August Unavailable Fred [...] Industry Job Start Date Job End Date [employer] Not on file Not on file Not on file documented as of this encounter Plan of Treatment Upcoming Encounters Date Type Department Care Team ([facility] st Contact Info) Description 03/03/2025 9:30 AM EDT Office Visit [facility] [address] [place] [phone] Emilie Davis MD [address] [place] [address] 03/24/2025 11:00 AM EST Clinical Support [facility] [address] [place] [address] Medina Lewis, RONALD [address] [place] [address] 06/04/2025 3:00 PM EST Office Visit [facility] [address] [place] [address] Merissa Donis, OD [address] [place] [address] documented as of this encounter Visit Diagnoses Not on filedocumented in this encounter Additional Health Concerns Assessment Noted Time PHQ-9 Depression Total Score: 3 04/30/20 23 9:17 AM EST documented as of this encounter Care Teams Sales Operations Lead Relationship Specialty Start Date End Date Emilie Davis MD [address] [place] [phone] PCP - General Family Medicine 05/13/18 Morales Echavarria FNP [address] [place] [phone] Nurse Practitioner Family Medicine 04/16/23 Aida Orozco [address] [place] [phone] Gastroenterology 05/26/24 Fred Castanon [address] [place] [phone] 07/21/24 documented as of this encounter
--- OUTSIDE RECORDS SUMMARY | 2025-02-01 14:25 | XMS_ITS | Encounter Summary ---
Author Organization [employer] [facility] Address [address] [facility] [address] [place] [address] Care Team Providers Care Director Video Name Role Phone Emilie Davis MD Primary Care Provider [phone] Morales Echavarria CAMP DINING ROOM ATTENDANT Unavailable Unavailable August Unavailable Fred Castanon Unavailable Reason for Visit * Reason Onset Date Comments Med Refill 04/22/2024 Encounter Details Date Type Department Care Team (Late st Contact Info) Description 04/22/2024 Telephone [facility] [address] [place] [address] Emilie Davis MD [address] [place] [phone] Med Refill Social History Tobacco Use Types [...] 200 MG/5ML suspension To be sent to: [facility] [place], [place] - [address] [facility] documented in this encounter Plan of Treatment Upcoming Encounters Date Type Department Care Team (Late st Contact Info) Description 03/03/2025 9:30 AM EDT Office Visit [facility] [address] [place] [address] Emilie Davis MD [address] [place] [address] 03/24/2025 11:00 AM EST Clinical Support [facility] [address] [place] [address] Medina Lewis, RN [address] [place], [place] 06/04/2025 3:00 PM EST Office Visit [facility] [address] [place] [address] Merissa Donis, OD [address] [place] [address] documented as of this encounter Visit Diagnoses Not on filedocumented in this encounter Additional Health Concerns Assessment Noted Time PHQ-9 Depression Total Score: 3 04/30/20 9:17 AM EST documented as of this encounter Care Teams Director Video Relationship Specialty Start Date End Date Emilie Davis MD [address] [place] [phone] PCP - General Family Medicine 05/13/18 Morales Echavarria FNP [address] [place] [address] Nurse Practitioner Family Medicine 04/16/23August [address] [place] [phone] Gastroenterology 05/26/24 Fred Castanon [address] [place] [phone] 07/21/24 documented as of this encounter
--- OUTSIDE RECORDS SUMMARY | 2025-02-01 14:25 | XMS_ITS | Encounter Summary ---
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 Not on file Not on file documented as of this encounter Plan of Treatment Upcoming Encounters Date Type Department Care Team (Late st Contact Info) Description 03/03/2025 9:30 AM EDT Office Visit [facility] [address] [place] [phone] Emilie Davis MD [address] [place] [address] 03/24/2025 11:00 AM EST Clinical Support [facility] [address] [place] [address] Medina Lewis, RONALD [address] [place] [address] 06/04/2025 3:00 PM EST Office Visit [facility] [address] [place] [address] Merissa Donis, GINA [address] [place] [address] documented as of this encounter Procedures Procedure Name Priority Date/Time Associated Diagnosis Comments CBC WITH AUTO DIFFERENTIAL Routine 01/27/2025 11:53 AM EDT HIV 1 RNA, QUANTITATIVE REAL TIME PCR Routine 01/27/2025 11:53 AM EDT COMPREHENSIVE METABOLIC PANEL Routine 01/27/2025 11:53 AM EDT documented in this encounter Results * HIV-1 RNA, Quantitative, Real-Time PCR (01/27/2025 11:53 AM EDT) HIV RNA PCR Qn Copies NOT DETECTED NOT DETECTED copies/mL [facility] HIV RNA PCR Qn Log Copies NOT DETECTED NOT DETECTED [facility] Comment:Result Units: Log co pies/mLThis test was performed using Real-Time Polymerase ChainReaction.Reportable Range: 20 copies/mL to 10,000,000 copies/mL(1.30 log copies/mL to 7.00 log copies/mL).THIS TEST WAS PERFORMED AT:[facility] [place] [id number] MALDONADO MD 01/27/2025 11:5 3 AM EDT 01/27/2025 1:16 PM EDT Emilie Davis MD LAB BLOOD ORDERABLES Final Result [facility] [address] [place] [address] [phone] * (ABNORMAL) Comprehensive Metabolic Panel (01/27/2025 11:53 AM EDT) Pathologist [facility] Sodium 143 135 - 145 mmol/L [facility] Potassium 3.8 3.3 - 5.1 mmol/L [facility] Chloride 108 96 - 108 mmol/L [facility] Carbon Dioxide 30(H) 22 - 29 mmol/L [facility] Anion Gap 9(L) 12 - 20 [facility] Urea Nitrogen (BUN) 13 9 - 16 mg/dL [facility] Creatinine, Serum 0.79 0.5 - 1.4 mg/dL [facility] Estimated Glomerular Filt Rate >60 [facility] Comment:Chronic Kidney Disea se: Estimated GFR < 60 mL/min/1.95u3Orwtbc Kidney Disease: Estimated GFR < 15 mL/min/1.73m2 Glucose 78 60 - 115 mg/dL [facility] Calcium 9.1 8.4 - 10.2 mg/dL [facility] Bilirubin, Total 0.2 0.0 - 1.0 mg/dL [facility] Aspartate Amino Transferase 22 5 - 31 U/L [facility] Alanine Aminotransferase 18 0 - 31 U/L [facility] Total Protein 7.2 6.5 - 8.0 g/dL [facility] Albumin Level 4.2 3.5 - 5.0 g/dL [facility] Alkaline Phosphatase 79 39 - 117 U/L [facility] 01/27/2025 11:5 3 AM EDT 01/27/2025 1:16 PM EDT us Emilie Davis MD LAB BLOOD ORDERABLES Final Result [facility] [address] [place] [phone] * CBC auto differential (01/27/2025 11:53 AM EDT) White Blood Count 8.0 4.8 - 10.8 X10*3/uL [facility] Red Blood Count 4.83 4.20 - 5.50 X10*6/uL [facility] Hemoglobin 14.2 12.0 - 16.0 g/dl [facility] Hematocrit 43.2 37.0 - 47.0 % [facility] Mean Corpuscular Volume 89.4 80.0 - 98.0 fL [facility] Mean Corpuscular Hemoglobin 29.4 27.0 - 33.0 pg [facility] Mean Corpuscular HGB Conc 32.9 31.0 - 35.0 g/dl [facility] Red Cell Distribution Width 14.6 11.0 - 16.0 % [facility] Platelet Count 329 160 - 400 X10*3/uL [facility] Mean Platelet Volume 9.6 9.4 - 12.3 fL [facility] Neutrophils Percent Auto 58.2 45 - 73 % [facility] Imm Gran Pct Auto 0.2 0.0 - 0.4 % [facility] Lymphocytes Percent Auto 33.1 20 - 40 % [facility] Monocytes Percent Auto 6.1 2 - 11 % [facility] Eosinophils Percent Auto 1.9 0 - 4 % [facility] Basophils Percent Auto 0.5 0 - 2 % [facility] NRBC Pct Auto 0.0 0.0 - 0.2 /100WBC [facility] Neutrophils Absolute Auto 4.7 2.0 - 8.3 x10*3/uL [facility] Imm Gran Abs Auto 0.02 0.00 - 0.03 X10*3/uL [facility] Lymphocytes Absolute Auto 2.7 1.2 - 4.9 X10*3/uL [facility] Monocytes Absolute Auto 0.5 0.1 - 1.2 X10*3/uL [facility] Eosinophils Absolute Auto 0.2 0.0 - 0.4 X10*3/uL [facility] Basophils Absolute Auto 0.0 0.0 - 0.2 X10*3/uL [facility] NRBC Abs Auto 0.000 0.0 - 0.012 X10*3/uL [facility] 01/27/2025 11:5 3 AM EDT 01/27/2025 1:16 PM EDT us Emilie Davis MD LAB BLOOD ORDERABLES Final Result [facility] [address] [place] [phone] [phone] documented in this encounter Visit Diagnoses Not on filedocumented in this encounter Additional Health Concerns Assessment Noted Time PHQ-9 Depression Total Score: 3 04/30/ 23 9:17 AM EST documented as of this encounter Care Teams High School Chemistry Teacher Relationship Specialty Start Date End Date Emilie Davis MD [address] [place] [address] PCP - General Family Medicine 05/13/18 Morales Echavarria FNP [address] [place] [address] Nurse Practitioner Family Medicine 04/16/23 Pam Aida [address] [place] [address] [address] [place] [address] Gastroenterology 05/26/24 Fred Castanon [address] [place] [phone] 07/21/24 documented as of this encounter
[2025-02-03 01:02] LABS: HIV RNA PCR Qn Copies NOT DETECTED copies/mL (NOT DETECTED); HIV RNA PCR Qn Log Copies NOT DETECTED (NOT DETECTED)
== END 2025-02-01 11:43 | disposition home or self-care (01) ==
LOC: HO.LAB 11:42
PROVIDERS: Nurse Practitioner Family; PCP Family Medicine; Visit Provider Nurse Practitioner
DX: K86.89 Other specified diseases of pancreas (principal); E53.8 Deficiency of other specified B group vitamins; Z79.899 Other long term (current) drug therapy
CPT/HCPCS: 36415; 83090; 86301; 87536

== ENCOUNTER 2025-02-09 13:04 | Outpatient (AMB) | payer OTHER, SELFPAY ==
--- NOTE | 2025-02-09 13:10 | MHC.OFFVIS ---
Vital Signs 02/09/25 13:15 Height 5 ft 5 in Weight 107 lb 2.314 oz BMI 17.8 BP 90/60 Blood Pressure Location Lt brachial Position Sitting Pulse 64 Pulse Source Pulse Oximeter Pulse Oximetry (%) 98 Oxygen Delivery Method Room Air Intake Visit Reasons: OA/hip pain Intake Note: Patient presents for OA/hip pain follow up. Cloth Desizing Range Operator Chief Required: Yes Cloth Desizing Range Operator Chief Language: Station Captain Services: Cloth Desizing Range Operator Chief Present Cloth Desizing Range Operator Chief Name: Leonides [email or web address] Information Interpreted: non-clinical & clinical Allergies black pepper Allergy (Severe, Verified 02/09/25 13:15) Anaphylaxis Penicillins (PENICILLINS) Allergy (Intermediate, Verified 02/09/25 13:15) HIVES,SWELLING sumatriptan (SUMATRIPTAN) Adverse Reaction (Severe, Verified 02/09/25 13:15) PT STATES HEART ATTACK Medication List - Last Reconciled 02/09/25 by Marina Brown MD bisacodyl (Dulcolax (bisacodyl)) 10 mg (2 x 5 mg) PO BEDTIME 30 days kwkhbjvakc-irougdsjtyieu-mned 50-300-40 mg (Fioricet) 1 cap PO Q4-6H PRN cabotegravir ER (Apretude) 600 mg IM [id number] cholecalciferol (vitamin D3) 1,250 mcg PO Q2W famotidine (Pepcid) 40 mg PO BEDTIME galcanezumab-gnlm (Emgality) 300 mg (3 mL) subcut QMONTH 30 days linaclotide (Linzess) 290 mcg PO QAM 30 days bxgbxe-equrjyxw-dtqocnj 3,000-9,500- 15,000 unit (Creon) 2 caps PO BID 30 days magnesium oxide 400 mg PO BEDTIME 30 days naratriptan take 1/2 - 1 tab at onset of headache; if no relief may repeat 1 tab after at least 4 hrs; max = 2 tabs/24 hrs orally PRN; 30 days Oxygen Home Use Start home O2 at 15-25 L/min via non-rebreather facemask x's 15-20 minutes at onset of cluster headache attack. Patient will require both M tanks and E tanks. 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 Chou - Not on any DMARDs - Chronic bilateral hand pain - Conservative management Today - Not on any DMARDs - Feels that he has a lot of pain in his bones - Uses tramadol but it causes dizziness - Uses a cream that numbs the hands - States that he is weary of taking any additional medications due to problems with his pancreas - Currently complaining of pain to the left hip, bilateral knees and bilateral calves Rheumatologic History: History: CRISTEL and RF negative. Xrays of bilateral hands with advanced OA, erosive changes in the DIPs in R hand.MRI of bilateral hands with erosive OA, no signs of inflammatory arthritis. Current Rheumatology Medication(s): REPLACED BY [facility] Medical History (Updated 02/03/25 @ 09:20 by MIHIR Perez) Pancreatic mass Erosive esophagitis Abdominal pain Sleep difficulties Upper abdominal pain Vomiting LEE (dyspnea on exertion) Arthritis Occipital neuralgia of left side New onset headache Diverticulosis of colon Chronic, continuous use of opioids Chronic GERD Palpitations Hypotension History of palpitations Dysphagia Disc degeneration, lumbar Spondylosis of lumbar spine Depression Past heart attack Hyperlipemia Erosive osteoarthritis of hands, bilateral GERD (gastroesophageal reflux disease) Hypertension Surgical History History of cholecystectomy Hx of colonoscopy History of esophagogastroduodenoscopy (EGD) H/O bilateral mastectomy H/O: hysterectomy Family History Mother Hypertension Breast cancer Maternal Grandmother Myocardial infarct Skin cancer Sister Heart problem Breast cancer Family/Other Esophageal cancer Social History Household Members: Family Housing: Apartment Are you a primary campground caretaker to a significant other at home: No Do you presently have visiting nurse or other home services: No Alcohol intake: never Patient Tobacco Use Status: Former Tobacco user Substance Use Type: Marijuana service: No Review of Systems Const Details: Review of Systems Constitutional: Denies fever, chill ENT: Denies vision changes, eye pain or eye redness, dental caries, dry mouth GI: Denies nausea, vomiting, diarrhea, abdominal pain, change in BM Pulm: Denies SOB, LEE, hemoptysis, wheezing Cards: Denies chest pain, palpitations Skin: Denies Raynaud's, rash, nail changes, photosensitivity, CATTLE TRADER: Denies headaches, weakness, paresthesias, recurrent falls MSK: as per HPI All other systems reviewed and are unremarkable except noted above Physical Exam Exam Exam: Vital signs reviewed Physical Examination CONSTITUITIONAL Patient alert and cooperative. Cachectic with bitemporal wasting MSK Hands Right Hand: Able to make a fist. No swelling or tenderness to palpation of the MCPs, PIPs or DIPs. Left Hand: Able to make a fist. No swelling or tenderness to palpation of the MCPs, PIPs or DIPs. Significant Herbedens and Bouchards nodes noted bilaterally with deformities bilateral squarring of the 1st CMC Wrists Right Wrist: Full ROM to flexion and extension. No swelling or TTP Left Wrist: Full ROM to flexion and extension. No swelling or TTP Elbows Right Elbow: Full ROM. No swelling or TTP. No TTP of the medial epicondyle. No TTP of the lateral epicondyle Left Elbow: Full ROM. No swelling or TTP. No TTP of the medial epicondyle. No TTP of the lateral epicondyle Shoulders Right shoulder: Full ROM. No swelling noted. No TTP of the AC joint. No TTP of the subacromial bursa. No TTP of the posterior shoulder Left shoulder: Full ROM. No swelling noted. No TTP of the AC joint. No TTP of the subacromial bursa. No TTP of the posterior shoulder Hips Right hip: Good ROM. No groin pain elicited with hip flexion/internal rotation/external rotation Left hip: Good ROM. No groin pain elicited with hip flexion/internal rotation/external rotation Hip bursa: TTP on the left Knees Right knee: Full ROM. No swelling noted. No TTP of the knee joint line. TTP of pes anserine bursa Left knee: Full ROM. No swelling noted. No TTP of the knee joint line. TTP of pes anserine bursa. Crepitations felt bilaterally Ankles Right ankle: Good ankle dorsiflexion and plantar flexion. No swelling. No TTP of the ankle joint Left ankle: Good ankle dorsiflexion and plantar flexion. No swelling. No TTP of the ankle joint Feet Right foot: Negative squeeze test Left foot: Negative squeeze test Tender points? No tenderness to palpation of the bilateral trapezius, supraspinatus, anterior costochondral junctions, bilateral suboccipital muscle insertions SKIN No rashes Vital Signs: Last Vital Signs Pulse 64 02/09/25 13:15 BP 90/60 02/09/25 13:15 Pulse Ox 98 02/09/25 13:15 Oxygen Delivery Method Room Air 02/09/25 13:15 BMI result Body Mass Index 17.8 Office Procedures AMB Joint Injection/Aspiration Joint Injection/Aspiration Details: Procedure was explained to the patient and informed consent was obtained. ? Risks associated with the procedure were discussed with the patient including but not limited to bleeding, infection, drug reactions and reactions to the topical anesthetic. Patient made aware of signs to look out for infectious complications. The area of interest was identified and confirmed with patient. ?This was subsequently cleaned with chlorhexidine x 2. ? The area was then anesthetized using ethyl chloride spray. 40 mg Kenalog with 1 cc 1% lidocaine was injected without issue. ?Minimal to no bleeding. ?Patient tolerated procedure. Primary Site: other (left greater trochanter) Prep: site was prepped using aseptic technique and ethochloride spray was applied Injected: 40 mg of, Kenalog, with 1 mL of and 1% plain lidocaine Procedure: The patient tolerated the procedure well Coding 93489 - Glenohumeral/Tronchanteric Bursa/Intraarticular Procedure code (CPT) selection complete Office Meds lidocaine (PF) 10 mg/mL (1 %) injection solution Performing Provider: Marina Brown MD Performing Location: [facility] Administered by: Michelle Ayoub RN on 02/09/25 15:17 Dose Route Admin Location Dispensed Lot Number Expiration Date [facility] Freight Forwarder 1 mL Infiltration left greater trochanter 2 mL [id number] 08/10/26 78708-388-20 [employer] Total Dispensed Waste 2 mL 50 % Kenalog 40 mg/mL suspension for injection Performing Provider: Marina Brown MD Performing Location: [facility] Administered by: Michelle Ayoub RN on 02/09/25 15:17 Dose Route Admin Location Dispensed Lot Number Expiration Date [facility] Freight Forwarder 40 mg intrabursal left greater trochanter 1 mL [id number] 12/10/25 [address]-2 [employer] Total Dispensed Waste 1 mL 0 % Results Reviewed Results Reviewed: Laboratory Tests 01/08/25 01/27/25 10:47 11:53 WBC 8.0 RBC 4.83 Hgb 14.2 Hct 43.2 Plt Count 329 ESR 9 Sodium 143 Potassium 3.8 Chloride 108 Carbon Dioxide 30 H BUN 13 Creatinine 0.79 AST 22 ALT 18 C-Reactive Protein < 0.10 25-OH Vitamin D Total 28 L Laboratory Tests 11/24/21 10/02/24 12:00 10:04 Rheumatoid Factor < 13.0 Cycl Citrul Peptide IgG <16 CRISTEL Screen NEGATIVE XR L Spine 12/2022 FINDINGS: Vertebral body heights are normal. At L3-L4 and L4-L5, there is mild disc space narrowing, with anterior spondylosis. The remaining disc spaces are well-maintained. No acute fracture or spondylolisthesis is seen. There is facet arthropathy at L5-S1. There are aortoiliac atherosclerotic calcifications. A right upper quadrant surgical clip is seen. IMPRESSION: 1. At L3-L4 and L4-L5, there is mild degenerative disc disease, with spondylosis. 2. There is facet arthropathy at L5-S1. Assessment & Plan Assessment & Plan (1) Erosive osteoarthritis of hands, bilateral: Code(s): M15.4 - Erosive (osteo)arthritis Category: Medical Plan: #Erosive OA Patient is a 54 y.o. Transgender male with erosive OA here today for follow up Discussed with patient that erosive OA is a more aggressive form of OA that there is unfortunately no treatment for Exam not showing active disease today and main complain is left lateral hip pain Of note patient looks cachetic and is currently being evaluated for pancreatic cancer Recommended he continue with his topical ointments Plan - No DMARDs at this time - Continue with topical ointment (2) Greater trochanteric bursitis of left hip: Code(s): M70.62 - Trochanteric bursitis, left hip Plan: #Left greater trochanteric bursitis s/p steroid injection Plan I spent 25 minutes reviewing the record and labs, taking a history, examining the patient, discussing the treatment plan, ordering diagnostic work up and documenting in the medical record Orders: Orders AMB Joint Injection/Aspiration Today M70.62 - Trochanteric bursitis, left hip Coding Level of Care Code Est Pt Level 3 (64663) Complex EM visit Add On G2211 Diagnoses Erosive osteoarthritis of hands, bilateral M15.4 Greater trochanteric bursitis of left hip M70.62 CPT Codes Coding - Joint 7: 02300 - Glenohumeral/Tronchanteric Bursa/Intraarticular ([id number])
[2025-02-09 13:15] VITALS: BP 90/60; PULSE 64; O2SAT 98; BMI 17.8
--- OUTSIDE RECORDS SUMMARY | 2025-02-09 14:16 | XMS_ITS | Encounter Summary ---
Author Organization [email or web address] Address [address] [facility] 7t [place] [address] Care Team Providers Care Rug Layer Name Role Phone Emilie Davis MD Primary Care Provider +1- [phone] Morales Echavarria OFFAL SEPARATOR Unavailable Unavailable August Unavailable Fred Castanon Unavailable Reason for Visit * Reason Onset Date Comments Hospital Follow-up 01/04/2025 No Show 01/04/2025 Pt no show for h df Encounter Details Date Type Department Care Team (Late st Contact Info) Description 01/04/2025 Telephone [facility] [address] [place], [place] [phone] Emilie Davis MD [address] [place], [place] [phone] Hospital Follow-up; No Show (Pt no show [...] 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 Hospital: [facility] Date of admission: 12/29 Discharge date: 12/31 Diagnosed: Gastritis and inflammation of the pancreas *Send message to [place] Clinical Care Coordinators documented in this encounter Plan of Treatment Upcoming Encounters Date Type Department Care Team (Late st Contact Info) Description 03/03/2025 9:30 AM EDT Office Visit [facility] [address] [place] [address] Emilie Davis MD [address] [place] [address] 03/24/2025 11:00 AM EST Clinical Support [facility] [address] [place] [address] Medina Lewis, RONALD [address] [place] [address] 06/04/2025 3:00 PM EST Office Visit [facility] OPT[facility]RY [address] [place] [address] Merissa Donis, GINA [address] [place] [address] documented as of this encounter Visit Diagnoses Not on filedocumented in this encounter Additional Health Concerns Assessment Noted Time PHQ-9 Depression Total Score: 3 04/30/20 9:17 AM EST documented as of this encounter Care Teams Rug Layer Relationship Specialty Start Date End Date Emilie Davis MD [address] [place] [address] PCP - General Family Medicine 05/13/18 Morales Echavarria FNP [address] [place] [address] Nurse Practitioner Family Medicine 04/16/[address] [place] [address] Gastroenterology 05/26/[address] [place] [address] 07/21/24 documented as of this encounter
--- OUTSIDE RECORDS SUMMARY | 2025-02-09 14:16 | XMS_ITS | Encounter Summary ---
Author Organization [employer] Address [address] [facility] [address] [place] [address] Care Team Providers Care Rope Tow Operator Name Role Phone Emilie Davis MD Primary Care Provider +1- [phone] Morales Echavarria Unavailable Unavailable August Unavailable Fred Castanon Unavailable Reason for Visit * Reason Comments Med Refill Encounter Details Date Type Department Care Team (Late st Contact Info) Description 01/01/[address] [facility] MEDICINE [address] [place] [address] Emilie Davis MD [address] [place] [address] Social History Tobacco Use Types Packs/Day Years [...] Miscellaneous Notes * Telephone Encounter - Werner Wayen RN - 01/02/2023 8:54 AM EDT T/C to patient via inpatient care manager rn regarding x-ray result. No answer, message left [...] 9:30 AM EDT Office Visit [facility] MEDICINE [address] [place] [address] Emilie Davis MD [address] [place] [address] 03/24/2025 11:00 AM EST Clinical Support [facility] MEDICINE [address] [place] [address] Medina Lewis, RONALD [address] [place] [address] 06/04/2025 3:00 PM EST Office Visit [facility] OPTOMETRY [address] [place] [address] Merissa Donis, OD [address] [place] [address] documented as of this encounter Visit Diagnoses Not on filedocumented in this encounter Additional Health Concerns Assessment Noted Time PHQ-9 Depression Total Score: 19 023 9:24 AM EDT documented as of this encounter Care Teams Rope Tow Operator Relationship Specialty Start Date End Date Emilie Davis MD [address] [place] [address] PCP - General Family Medicine 05/13/18 Morales Echavarria FNP [address] [place] [address] Nurse Practitioner Family Medicine 04/16/[address] [place] [address] Gastroenterology 05/26/24 Fred Castanon [address] [place] [address] 07/21/24 documented as of this encounter
--- OUTSIDE RECORDS SUMMARY | 2025-02-09 14:16 | XMS_ITS | Encounter Summary ---
Author Organization [employer] Address [address] [place] [address] Care Team Providers Care Sales Vendor Name Role Phone Emilie Davis MD Primary Care Provider [phone]- [phone] Morales Echavarria Unavailable Unavailable August Unavailable Fred Castanon Unavailable Reason for Visit * Reason Onset Date Comments Care Coordination 02/04/2025 Referral 02/04/2025 Encounter Details Date Type Department Care Team (Late st Contact Info) Description 02/04/[address] [facility] MEDICINE [address] [place] [address] Emilie Davis MD [address], [place] [phone] Care Coordination; Referral Social History Tobacco Use Types Packs/Day [...] Industry Job Start Date Job End Date [employer] Not on file Not on file Not on file documented as of this encounter Miscellaneous Notes * Telephone Encounter - Moira Cruz RN - 02/04/2025 1:14 PM EDT Combined this note with other encounter dated 02/04/25, please refer to that encounter. * Telephone Encounter - Emilie Davis MD - 02/04/2025 12:23 PM EDT GI note from 01/28/25 there is mention that pt has a pancreatic mass that is possibly cancer. They referred him to [facility]. Can you please confirm pt has apt for ass that is within 1-2 weeks, if not, please call GI to ask where he was referred and if they can expedite. Thank you. documented in this encounter Plan of Treatment Upcoming Encounters Date Type Department Care Team (Late st Contact Info) Description 03/03/2025 9:30 AM EDT Office Visit [facility] MEDICINE [address] [place] [phone] Emilie Davis MD [address] [place] [address] 03/24/2025 11:00 AM EST Clinical Support [facility] MEDICINE [address] [place] [address] Medina Lewis, RONALD [address] [place] [address] 06/04/2025 3:00 PM EST Office Visit [facility] OPTOMETRY [address] [place] [address] Merissa Donis, OD [address] [place] [address] documented as of this encounter Visit Diagnoses Not on filedocumented in this encounter Additional Health Concerns Assessment Noted Time PHQ-9 Depression Total Score: 3 04/30/20 9:17 AM EST documented as of this encounter Care Teams Sales Vendor Relationship Specialty Start Date End Date Emilie Davis MD [address] [place] [id number] PCP - General Family Medicine 05/13/18 Morales Echavarria FNP [address] [place] [address] Nurse Practitioner Family Medicine 04/16/23August [address] [place] [id number] Gastroenterology 05/26/24 Fred Castanon [address] [place] [id number] 07/21/24 documented as of this encounter
--- OUTSIDE RECORDS SUMMARY | 2025-02-09 14:16 | XMS_ITS | Clinical Summary ---
Author Organization [employer] Address [address] [place] [address] Care Team Providers Care Supervisor Assembly And Packing Name Role Phone Emilie Davis MD Primary Care Provider [phone] Morales Echavarria Unavailable Unavailable August Unavailable Fred Csatanon Unavailable Allergies Active Allergy Reactions Criticality Noted Date Comments Penicillins Anaphylaxis,Rash High 05/16/2017 Sumatriptan 10/28/2018 Medications * This document contains information received from the source organization and may not represent a complete record from that organization. Needle, Disp, (BD Disp [place]) 25G X 5/8 miscIndications :Gender 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 USE TO INJECT Testosterone INTRAMUSCULARLY EVERY 2 WEEKS DIRECTED 25 each 3 03/16/20 24 Active Needle, Disp, (BD Hypodermic Needle) 16G X 1 miscIndications :Gender 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 USE TO DRAW UP testosterone EVERY 2 WEEKS 24 each 1 03/16/20 24 Active loratadine (Claritin) 10 MG [...] INTRAMUSCULARLY EVERY 2 WEEKS 2 mL 2 09/04/19 25 Active tamsulosin (Flomax) 0.4 MG 24 hr capsuleIndicati ons:Acute left flank pain Take 1 capsule (0.4 mg) by mouth Once per day. 30 capsule 10/03/19 25 Active cholecalciferol (Vitamin D-3) 1.25 MG (34024 UT) capsule Take 1 capsule by mouth 1 (one) time per week. 12/30/19 25 Active sucralfate (Carafate) 1 GM/10ML suspension Take 20 mL by mouth Once per day. At noon 12/08/19 25 Active magnesium oxide (Mag-Ox) 400 (240 Mg) MG tablet Take 1 tablet by mouth at bedtime. Hold for loose stools 09/26/19 25 Active linaCLOtide (Linzess) 145 MCG capsule Take 145 mcg by mouth Once per day. 12/30/19 25 Active Hospital, Clinic, or Other Facility Administered Medication Ordered Dose Route Frequency Start Date End Date Status Cabotegravir ER Suspension Extended Release 600 mgIndications:On pre-exposure prophylaxis for HIV 600 mg IM Once 01/27/2025 01/27/2025 Ended Active Problems Problem Noted Date Diagnosed Date Pancreatic mass 01/21/2025 Overview (02/04/2025): -MRI done in ER 01/21/25 Impression: Pancreatic mass of dorsal head/uncinate process is compressing on distal CBD and causing moderate to severe stenosis, mild upstream intrahepatic and extrahepatic bile duct dilatation, concerning for malignancy. Recommend associate automation engineer consultation, ERCP and tissue sampling. -GI note 01/28/25 After the hospitalization for acute pancreatitis an MRI was ordered. Sadly, this study shows a mass at the head of the pancreas that is putting pressure on the bile ducts and has a potential contribution to the swallowing problems. I advise him of the findings and that we need to get him urgently to a tertiary facility where they can do either an endoscopic ultrasound or an ERCP biopsy to determine the nature of the mass. I hope that it is not pancreatic cancer. He confirms that he would be able to make it to [facility] if we can get him in there and I think that is the better facility for the mcfp treatment plan. They also would be a quick to do an esophageal manometry to tease out potential achalasia. Endoscopies have never show any stricture or reason for the dysphagia but there does appear to be a significant esophageal movement problem. 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 -dental home is [facility] -health care proxy filed 03/16/24 Assessment & Plan (03/17/2024 6:12 AM EST): -next physical exam due after 03/16/2025 -eye care facilitated by Alessio. -dental home is [facility] -health care proxy filed 03/16/24 Assessment & Plan (03/22/2023 9:17 AM EST): -next physical exam due after 12/07/2023. -eye care facilitated by Alessio. -dental home is outside of [facility] Assessment & Plan (12/06/2022 10:19 AM EDT): -next physical exam dueafter 12/07/2023. -eye care facilitated by Alessio. -dental home is outside of [facility] Hx of hepatitis C 11/26/2022 Overview (11/26/2022): [...] He was referred back to rheumatology in [place] 08/23/2020 but provider left the area. started on Tramadol. Take 3 times per week. He is not taking at this time. Assessment & Plan (03/17/2024 6:08 AM EST): X rays suggests osteoarthritis. Seen by rheumatology in [place]. Ibuprofen and NSAIDs cause gastritis. Minimal relief with acetaminophen. He was referred back to rheumatology in [place] 08/23/2020 but provider left the area. started on Tramadol. Take 3 times per week. He is not taking at this time. Assessment & Plan (03/22/2023 9:15 AM EST): X rays suggests osteoarthritis. Seen by rheumatology in [place]. Ibuprofen and NSAIDs cause gastritis. Minimal relief with acetaminophen. He was referred back to rheumatology in [place] 08/23/2020 but provider left the area. started on Tramadol. Take 3 times per week. Will need COT in the future. Assessment & Plan (12/06/2022 8:54 AM EDT): X rays suggests osteoarthritis. Seen by rheumatology in [place]. Ibuprofen and NSAIDs cause gastritis. Minimal relief with acetaminophen. He was referred back to rheumatology in [place] 08/23/2020 but provider left the area. started on Tramadol. Take 3 times per week. Will need COT in the future. Assessment & Plan (10/11/2022 9:58 AM EDT): X rays suggests osteoarthritis. Seen by rheumatology in [place]. Ibuprofen and NSAIDs cause gastritis. Minimal relief with acetaminophen. He was referred back to rheumatology in [place] 08/23/2020 but provider left the area. started [...] Now with palpitations. Will refer to his waistline joiner lockstitch for bradycardia. Assessment & Plan (03/22/2023 9:16 AM EST): Sinus bradycardia and asymptomatic. Pt states he always has slow heart rate Pt repots heart rate in 40s recorded with home BP monitor with symptoms of dizziness recorded at home. Now with palpitations. Will refer to his waistline joiner lockstitch for bradycardia. Assessment & Plan (12/06/2022 8:54 AM EDT): Sinus bradycardia and asymptomatic. Pt states he always has slow heart rate Pt repots heart rate in 40s recorded with home BP monitor with symptoms of dizziness recorded at home. Now with palpitations. Will refer to his waistline joiner lockstitch for bradycardia. Assessment & Plan (10/11/2022 9:58 AM EDT): Sinus bradycardia and asymptomatic. Pt states he always has slow heart rate Pt repots heart rate in 40s recorded with home BP monitor with symptoms of dizziness recorded at home. Now with palpitations. Will refer to his waistline joiner lockstitch for bradycardia. Generalized abdominal pain 06/25/2021 Overview [...] for GI. Insurance no longer accepted at [facility]. -EGD scheduled for December 2021. -10/19/24 IMPRESSION: Normal 4-hour solid food gastric emptying study. -note from Aida Orozco 10/21/24 reveiwed NM gastric emptying study [place] barium swallow H pylori Ag Stool ordered -note from Aida Orozco 12/04/24 reviewed, Kaushik increased -esophageal barium [...] for GI. Insurance no longer accepted at [facility]. -EGD scheduled for December 2021. Assessment [...] for GI. Insurance no longer accepted at [facility]. -EGD scheduled for December 2021. Assessment [...] for GI. Insurance no longer accepted at [facility]. -EGD scheduled for December 2021. Assessment [...] for GI. Insurance no longer accepted at [facility]. -EGD scheduled for December 2021. 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 See CAD for plan. 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 Pt wants to get reestablished with cardiology. 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 Pt can call [phone] to schedule mariely. number given to call 03/16/24 -CT 05/08/24 No acute intrathoracic findings. Calcified granulomas present bilaterally. No suspicious pulmonary nodule identified. Air-fluid level present within the midthoracic esophagus can be associated with gastroesophageal reflux disease and esophageal dysmotility. Coronary artery atherosclerosis. Assessment & Plan (05/20/2024 4:05 PM EST): -Ct scan in [facility] on 12/25/2017 showed multiple indeterminate nodules, largest [...] 11/15/23 and NO SHOW. Pt can call [phone] to schedule mariely. number given to call 03/16/24 -CT 05/08/24 No acute intrathoracic findings. Calcified granulomas present bilaterally. No suspicious pulmonary nodule identified. Air-fluid level present within the midthoracic esophagus can be associated with gastroesophageal reflux disease and esophageal dysmotility. Coronary artery atherosclerosis. Assessment & Plan (03/17/2024 6:13 AM EST): -Ct scan in [facility] on 12/25/2017 showed multiple indeterminate nodules, largest [...] 11/15/23 and NO SHOW. Pt can call [phone] to schedule mariely. number given to call 03/16/24 Assessment & Plan (03/22/2023 9:16 AM EST): -Ct scan in [facility] on 12/25/2017 showed multiple indeterminate nodules, largest was solid and measured 2mm. -Given that the Pt has a tobacco Hx and quit in 2018 we referrred to pulmonology that was likely distrupted by the pandemic. -Will ordered repeat CT of chest to follow the nodles. Assessment & Plan (12/06/2022 10:18 AM EDT): -Ct scan in [facility] on 12/25/2017 showed multiple indeterminate nodules, largest [...] referred for OP services and referral to [facility] Psychopharmacology clinic. Provided Crisis contact number in [...] as needed. Mild major depression 06/25/20212023 Encounters * This document contains information received from the source organization and may not represent a complete record from that organization. Date Type Department Care Team Description 02/05/2025 Orders Only [facility] [place] [address] Emilie Davis MD Depression, unspecified depression type (Primary Dx) 02/04/2025 Telephone [facility] [place] [address] Emilie Davis MD Care Coordination; Referral 02/04/[address] [address] Emilie Davis MD Referral; Care Coordination 02/02/2025 Orders Only [address] [address] Kayla Sellers RN 02/01/2025 Orders Only GENERIC EXTERNAL DATA DEPARTMENT Provider, Generic External Data 01/27/2025 11:00 AM EDT Clinical Support [address] [address] Medina Lewis, RN On pre-exposure prophylaxis for HIV (Primary Dx) 01/27/2025 Orders Only [address] [address] Emilie Davis MD 01/27/2025 Travel 01/21/2025 Travel 01/19/2025 Orders Only [facility] External Provider, [facility] Pancreatic mass (Primary Dx) 01/15/2025 Orders Only GENERIC EXTERNAL DATA DEPARTMENT Provider, Generic External Data 01/14/2025 Orders Only [facility] External Provider, [facility] Generalized abdominal pain (Primary Dx) 01/08/2025 Orders Only GENERIC EXTERNAL DATA DEPARTMENT Provider, Generic External Data 01/07/2025 Telephone [facility] [place] [address] Emilie Davis MD Call Back Request; Injectable PrEP Communication 01/04/2025 Patient Outreach [facility] [place] [address] Emilie Davis MD Transition Of Care (Tcm) (HDF unscheduled) 01/04/2025 Telephone [facility] [place] [address] Emilie Davis MD Nurse Triage 01/04/2025 Telephone [facility] [place] [address] Emilie Davis MD Hospital Follow-up; No Show (Pt no show for hdf ) 12/29/2024 Orders Only GENERIC EXTERNAL DATA DEPARTMENT Provider, Generic External Data 11/26/2024 9:30 AM EDT Clinical Support [facility] [place] [address] Medina Lewis, RN On pre-exposure prophylaxis for HIV (Primary Dx) 11/26/2024 Orders Only [facility] [place] [address] Emilie Davis MD 11/26/2024 Travel 11/26/[address] [address] Emilie Davis MD Appointment Request 11/25/[address] [address] Emilie Davis MD October recall 11/16/[address] [address] Medina Lewis, RN from Last 3 Months Immunizations Immunization [...] Job Start Date Job End Date [employer] Not on file Not on file [...] Description 03/03/2025 9:30 AM EDT Office Visit [facility] MEDICINE [address] [place] [address] Emilie Davis MD [address] [place] [address] 03/24/2025 11:00 AM EST Clinical Support [facility] [address] [place] [address] Medina Lewis, RONALD [address] [place] [address] 06/04/2025 3:00 PM EST Office Visit [facility] OPTOMETRY [address] [place] [address] Merissa Donis, OD [address] [place] [address] Health Maintenance Due Date Last Done Comments [...] Completed 03/16/2024, 01/07/2023, 12/07/2022 HIV Screening Completed 02/01/2025, 01/11, 11/26/2024, Additional history exists HIB Vaccines Aged Out [...] Procedure Name Priority Date/Time Associated Diagnosis Comments HIV 1 RNA, QUANTITATIVE REAL TIME PCR Routine 02/01/2025 11:57 AM EDT HOMOCYSTEINE Routine 02/01/2025 11:57 AM EDT CA 19-9 Routine 02/01/2025 11:57 AM EDT POCT RAPID HIV SCREENING Routine 01/27/2025 1:50 PM EDT On pre-exposure prophylaxis for HIV HIV 1 RNA, QUANTITATIVE REAL TIME PCR Routine 01/27/2025 11:53 AM EDT COMPREHENSIVE METABOLIC PANEL Routine 01/27/2025 11:53 AM EDT CBC WITH AUTO DIFFERENTIAL Routine 01/27/2025 11:53 AM EDT CHLAMYDIA/GONORRHEA THROAT SWAB ([place] [facility]) Routine 01/27/2025 MR ABDOMEN W AND WO CONTRAST Routine [...] Relevant to Health Maintenance Results * (ABNORMAL) CA 19-9 (02/01/2025 11:57 AM EDT) CA 19-9 671(A) <34 U/mL [facility] Comment:This test was perfor med using the Siemenschemiluminescent method. Values obtained fromdifferent assay methods cannot be usedinterchangeably. CA 19-9 levels, regardless ofvalue, should not be interpreted as absoluteevidence of the presence or absence of disease.THIS TEST WAS PERFORMED AT:[facility] [place] [phone] MALDONADO MD 02/01/2025 11:5 7 AM EDT 02/01/2025 11:57 AM EDT us Generic External Data Provider LAB BLOOD ORDERAB LES Final Result [facility] [address] [place] [phone] * HIV-1 RNA, Quantitative, Real-Time PCR (02/01/2025 11:57 AM EDT) Only the most recent of3 resultswithin the time period is included. HIV RNA PCR Qn Copies NOT DETECTED NOT DETECTED copies/mL [facility] HIV RNA PCR Qn Log Copies NOT DETECTED NOT DETECTED [facility] Comment:Result Units: Log co pies/mLThis test was performed using Real-Time Polymerase ChainReaction.Reportable Range: 20 copies/mL to 10,000,000 copies/mL(1.30 log copies/mL to 7.00 log copies/mL).THIS TEST WAS PERFORMED AT:[facility] [place] [phone] MALDONADO MD 02/01/2025 11:5 7 AM EDT 02/01/2025 11:57 AM EDT Emilie Davis MD LAB BLOOD ORDERABLES Final Result Performing Organization Address [facility] de Phone Number [facility] [address] [place] [phone] * Homocysteine (02/01/2025 11:57 AM EDT) Homocysteine 7.4 < or = 13.4 umol/L [facility] Comment:Homocysteine is incr eased by functional deficiency offolate or vitamin B12. Testing for methylmalonic aciddifferentiates between these deficiencies. Other causesof increased homocysteine include renal failure, folateantagonists such as methotrexate and phenytoin, andexposure to nitrous oxide.Salvador Stevens, et al., Caitlyn Coffee Attendant Med. 1999;131(5):331-9.THIS TEST WAS PERFORMED AT:[employer] [address] [phone] MALDONADO MD 02/01/2025 11:5 7 AM EDT 02/01/2025 11:57 AM EDT Generic External Data Provider LAB BLOOD ORDERAB LES Final Result Performing Organization Address [facility] de Phone Number [facility] [address] [place] [phone] * POCT Rapid HIV Screening (01/27/2025 1:50 [...] Blood Count 8.0 4.8 - 10.8 X10*3/uL [facility] Red Blood Count 4.83 4.20 - 5.50 X10*6/uL [facility] Hemoglobin 14.2 12.0 - 16.0 g/dl [facility] Hematocrit 43.2 37.0 - 47.0 % [facility] Mean Corpuscular Volume 89.4 80.0 - 98.0 fL [facility] Mean Corpuscular Hemoglobin 29.4 27.0 - 33.0 pg [facility] Mean Corpuscular HGB Conc 32.9 31.0 - 35.0 g/dl [facility] Red Cell Distribution Width 14.6 11.0 - 16.0 % [facility] Platelet Count 329 160 - 400 X10*3/uL [facility] Mean Platelet Volume 9.6 9.4 - 12.3 fL [facility] Neutrophils Percent Auto 58.2 45 - 73 % [facility] Imm Gran Pct Auto 0.2 0.0 - 0.4 % [facility] Lymphocytes Percent Auto 33.1 20 - 40 % [facility] Monocytes Percent Auto 6.1 2 - 11 % [facility] Eosinophils Percent Auto 1.9 0 - 4 % [facility] Basophils Percent Auto 0.5 0 - 2 % [facility] NRBC Pct Auto 0.0 0.0 - 0.2 /100WBC [facility] Neutrophils Absolute Auto 4.7 2.0 - 8.3 x10*3/uL [facility] Imm Gran Abs Auto 0.02 0.00 - 0.03 X10*3/uL [facility] Lymphocytes Absolute Auto 2.7 1.2 - 4.9 X10*3/uL [facility] Monocytes Absolute Auto 0.5 0.1 - 1.2 X10*3/uL [facility] Eosinophils Absolute Auto 0.2 0.0 - 0.4 X10*3/uL [facility] Basophils Absolute Auto 0.0 0.0 - 0.2 X10*3/uL [facility] NRBC Abs Auto 0.000 0.0 - 0.012 X10*3/uL [facility] 01/27/2025 11:5 3 AM EDT 01/27/2025 1:16 PM EDT us Emilie Davis MD LAB BLOOD ORDERABLES Final Result [facility] [address] [place] [phone] * (ABNORMAL) Comprehensive Metabolic Panel (01/27/2025 11:53 AM EDT) Only the most recent of2 resultswithin the time period is included. Sodium 143 135 - 145 mmol/L [facility] Potassium 3.8 3.3 - 5.1 mmol/L [facility] Chloride 108 96 - 108 mmol/L [facility] Carbon Dioxide 30(H) 22 - 29 mmol/L [facility] Anion Gap 9(L) 12 - 20 [facility] Urea Nitrogen (BUN) 13 9 - 16 mg/dL [facility] Creatinine, Serum 0.79 0.5 - 1.4 mg/dL [facility] Estimated Glomerular Filt Rate >60 [facility] Comment:Chronic Kidney Disea se: Estimated GFR < 60 mL/min/1.98t1Ptrauj Kidney Disease: Estimated GFR < 15 mL/min/1.73m2 Glucose 78 60 - 115 mg/dL [facility] Calcium 9.1 8.4 - 10.2 mg/dL [facility] Bilirubin, Total 0.2 0.0 - 1.0 mg/dL [facility] Aspartate Amino Transferase 22 5 - 31 U/L [facility] Alanine Aminotransferase 18 0 - 31 U/L [facility] Total Protein 7.2 6.5 - 8.0 g/dL [facility] Albumin Level 4.2 3.5 - 5.0 g/dL [facility] Alkaline Phosphatase 79 39 - 117 U/L [facility] 01/27/2025 11:5 3 AM EDT 01/27/2025 1:16 PM EDT Emilie Davis MD LAB BLOOD ORDERABLES Final Result [facility] [address] [place] [phone] * Chlamydia/Gonorrhea Throat Swab ([facility]) (01/27/2025) Chlamydia Throat Swab Negative Gonorrhea Throat Swab Negative Swab 01/27/2025 Historical Provider LAB MICROBIOLOGY - GENERA L ORDERABLES Final Result * MR Abdomen w/ and w/o Contrast (01/20/2025 4:03 PM EDT) Anatomical Region Laterality Modality Abdomen Magnetic Resonan ce 01/20/2025 4:03 PM EDT Narrative 01/20/2025 4:05 PM EDT [address] [address] Magnetic Resonance Report Signed with Addenda Patient: Harriet Valdez MR#: [id number] : 1970 Acct:[id number] Age/Sex: 54 / F ADM Date: 01/19/25 Loc: HO.MRI Attending Dr: Cha Mills MD Ordering Physician: Cha Mills MD Date of Service: 01/19/25 Procedure(s): MR abdomen wo/w con Accession Number(s): [id number] cc: Emilie Davis MD; Cha Mills MD [...] bile duct dilatation, concerning for malignancy. Recommend associate automation engineer consultation, ERCP and tissue sampling. 2. Subcentimeter right hepatic hemangioma and cyst. 3. Diverticulosis coli. This document has been electronically signed by: Yumiko Jones MD on 01/20/2025 16:03:51 Dictated By: Yumiko Jones MD Signed By: <Electronically signed by Yumiko Jones MD in OV> 01/20/251604 DD/ 02 TD/TT: 01/20/251602 Chemical Technician: Procedure Note Donotuseinterpreter, Image - 01/20/[address] [address] Magnetic Resonance Report Signed with Addenda Patient: Harriet ValdezMR#: [id number] : 1970Acct:[id number] Age/Sex: 54 / FADM Date: 01/19/25 Loc: HO.MRI Attending Dr: Cha Mills MD Ordering Physician: Cha Mills MD Date of Service: 01/19/25 Procedure(s): MR abdomen wo/w con Accession Number(s): [id number] cc: Emilie Davis MD; Cha Mills MD [...] <Electronically signed by Yumiko Jones MD inO> 01/20/251626 Addendum Cosigned By: DD/ /06/1603 TD/TT: [...] bile duct dilatation, concerning for malignancy. Recommend associate automation engineer consultation, ERCP and tissue sampling. 2. Subcentimeter right hepatic hemangioma and cyst. 3. Diverticulosis coli. This document has been electronically signed by: Yumiko Jones MD on 01/20/2025 16:03:51 Dictated By: Yumiko Jones MD Signed By: <Electronically signed by Yumiko Jones MD in OV> 01/20/25 1605 DD/ 160 TD/TT: 01/20/25 160 Chemical Technician: [facility] External Provider IM MRI PROCEDURES Edited Result - Final * Hematoxylin and Eosin Stain (01/15/2025 3:32 PM EDT) 01/15/2025 3:32 PM EDT 01/18/2025 7:08 AM EDT [facility] - 01/19/2025 12:19 PM EDT ----- ------- Name: Trace RobersonHarriet Age/Sex: 54/F : 1970 Unit#: [id number] Attend Dr: Mary Alice Mayorga MD Re01/15/25 Status: [facility] Location: [facility] Disch: ----- ------- SPEC : [id number] RECD: 01/18/25 STATUS: JANIE DUNLAP NUM: [id number] AMBREEN: 01/15/25-15[address] [facility] [address]: Mary Alice Mayorga MD ENTERED: [...] developed and their performance characteristics determined by [facility]. They have not been cleared or approved by the U.S. Food and Drug Administration (FDA). However, the FDA CONTINUED ON NEXT PAGE ----- ------- Name: Harriet Valdez Age/Sex: 54/F : 1970 Unit#: [id number] Attend Dr: Mary Alice Mayorga MD Re01/15/25 Status: [facility] Location: [facility] Disch: ----- ------- SPEC : [id number] RECD: 01/18/25-707 STATUS: JANIE DUNLAP NUM: [id number] AMBREEN: 01/15/25-15[address] [facility] [address]: Mary Alice Mayorga MD ENTERED: [...] laboratory testing. Copies To: Emilie Davis MD [address] [address] Mary Alice Mayorga MD [facility] [address] [place] [address] [phone] ----- ------- Signed (signature on file) Yara Dodson MD 01/19/25 1219 ----- ------- END OF REPORT us Generic External Data Provider LAB BLOOD ORDERAB LES Final Result [facility] [address] [place] [phone] * Prothrombin Time-INR (01/14/2025 3:40 PM EDT) Prothrombin Time 11.7 10.9 - 12.4 SEC [facility] INTERNATIONAL NORM RATIO 1.0 0.9 - 1.1 [facility] Comment:INTERNATIONAL NORMAL IZED RATIO [...] ORDERAB LES Final Result Performing Organization Address City/State/[facility] de Phone Number [facility] [address] [place] [address] [phone] * [place] Esophagus Barium Swallow (01/14/2025 9:40 AM EDT) Anatomical Region Laterality Modality Head, Neck Radiographic Aurora ging 01/14/2025 9:40 AM EDT Narrative 01/14/2025 11:23 AM EDT [address] [address] Fluoroscopy Report Signed Patient: Harriet Valdez MR#: [id number] : 1970 Acct:[id number] Age/Sex: 54 / F ADM Date: 01/14/25 Loc: HORAMONAAY Attending Dr: Aida ASH Ordering Physician: Aida Orozco Date of Service: 01/14/25 Procedure(s): FL barium swallow Accession Number(s): [id number] cc: Emilie Davis MD; Aida Orozco Reason [...] 01/14/25 1120 DD/ 0940 TD/TT: 01/14/25 0955 Chemical Technician: [facility] Procedure Note Donotuseinterpreter, Image - 01/14/2025 [place] [address] Fluoroscopy Report Signed Patient: Harriet Valdez#: [id number] : 1970Acct:[id number] Age/Sex: 54 / FADM Date: 01/14/25 Loc: HO.XRAY Attending Dr: Aida ASH Ordering Physician: Aida Orozco Date of Service: 01/14/25 Procedure(s): FL barium swallow Accession Number(s): [id number] cc: Emilie Davis MD; Aida Orozco Reason [...] 01/14/25 1120 DD/ 0940 TD/TT: 01/14/25 0955 Chemical Technician: MADINA [facility] External Provider IMG FLU OROSCOPY PROCEDURES Final Result * XR Abdomen 2 View minimum (01/08/2025 10:50 AM EDT) Anatomical Region Laterality Modality Abdomen Radiographic Aurora ging 01/08/2025 10:5 0 AM EDT Narrative 01/08/2025 12:26 PM EDT [address] [address] XRay Report Signed Patient: Harriet Valdez MR#: [id number] : 1970 Acct:[id number] Age/Sex: 54 / F ADM Date: 01/08/25 Loc: HO.XRAY Attending Dr: Aida ASH Ordering Physician: Aida Orozco Date of Service: 01/08/25 Procedure(s): XR abdomen min 2V Accession Number(s): [id number] cc: Emilie Davis MD; Aida Orozco EXAMINATION: [...] 01/08/25 1223 DD/ 1050 TD/TT: 01/08/25 1057 Chemical Technician: Procedure Note Donotuseinterpreter, Image - 01/08/2025 [place] [address] XRay Report Signed Patient: Harriet ValdezMR#: [id number] : 1970Acct:[id number] Age/Sex: 54 / FADM Date: 01/08/25 Loc: MARINO Attending Dr: Aida ASH Ordering Physician: Aida Orozco Date of Service: 01/08/25 Procedure(s): XR abdomen min 2V Accession Number(s): [id number] cc: Emilie Davis MD; Aida Orozco EXAMINATION: [...] 01/08/25 1223 DD/ 1050 TD/TT: 01/08/25 1057 Chemical Technician: [facility] External Provider IMG XR PROCEDURES Edited Result - Final * (ABNORMAL) VITAMIN D 25-OH (D2 AND D3) (01/08/2025 10:47 AM EDT) Vitamin D, 25-OH, D2 <4 ng/mL [facility] Comment:This test was develo ped and its analytical performancecharacteristics have been determined by [facility] [place]. It hasnot been cleared or approved by the U.S. Food and DrugAdministration. This assay has been validated pursuantto the CLIA regulations and is used for clinicalpurposes.THIS TEST WAS PERFORMED AT:[employer] [id number] [place] [address]IZIETLVMARCI ESTEVEZ MD,PHD Vitamin D, 25-OH, D3 28 ng/mL [facility] Comment:This test was develo ped and its analytical performancecharacteristics have been determined by [employer] [place], [place]. It hasnot been cleared or approved by the U.S. Food and DrugAdministration. This assay has been validated pursuantto the CLIA regulations and is used for clinicalpurposes. Vitamin D, 25-OH, Total 28(A) 30 - 100 ng/mL [facility] Comment:Vitamin D, 25-Hydrox y [...] = 30 ng/mL.For additional information, please refer tohttp://education.Biomoti/faq/MLG139(This link is being provided for informational/educational purposes only.) 01/08/2025 10:4 7 AM EDT 01/08/2025 10:47 AM EDT Generic External Data Provider LAB BLOOD ORDERAB LES Final Result Performing Organization Address [facility] Co de Phone Number [facility] [address] [place] [phone] * Sed Rate by Modified Westergren (01/08/2025 10:47 AM EDT) Erythrocyte Sedimentation Rate 9 0 - 20 MM/HR [facility] Comment:Patients with polycy themia and many hemoglobin abnormalitiesmay have depressed sed rates whereas patients with anemiamay have elevated sed rates. 01/08/2025 10:4 7 AM EDT 01/08/2025 10:47 AM EDT us Generic External Data Provider LAB BLOOD ORDERAB LES Final Result Performing Organization Address [facility] Co de Phone Number [facility] [address] [place] [phone] * C-reactive Protein (01/08/2025 10:47 AM EDT) C Reactive Protein <0.10 < or = 0.50 mg/dL [facility] 01/08/2025 10:4 7 AM EDT 01/08/2025 10:47 AM EDT Generic External Data Provider LAB BLOOD ORDERAB LES Final Result Performing Organization Address [facility] Co de Phone Number [facility] [address] [place] [phone] * Lipase (01/08/2025 10:47 AM EDT) Only the most recent of2 resultswithin the time period is included. Lipase 33 8 - 78 U/L [facility] 01/08/2025 10:4 7 AM EDT 01/08/2025 10:47 AM EDT Generic External Data Provider LAB BLOOD ORDERAB LES Final Result Performing Organization Address [facility] de Phone Number [facility] [address] [place] [phone] * (ABNORMAL) Amylase (01/08/2025 10:47 AM EDT) Pathologist [facility] Amylase 114(H) 28 - 100 U/L [facility] 01/08/2025 10:4 7 AM EDT 01/08/2025 10:47 AM EDT Generic External Data Provider LAB BLOOD ORDERAB LES Final Result Performing Organization Address [facility] de Phone Number [facility] [address] [place] [phone] * (ABNORMAL) Drug Monitoring, Panel 1, Screen, Urine (12/29/2024 1:09 PM EDT) Pathologist [facility] Opiate Screen Urine Not Detected Not Detect [facility] Comment:Opiate cut-off is 30 0 ng/mL.Positive results are unconfirmed and should not be used fornon-medical purposes. Barbiturates, Urine Not Detected Not Detect [facility] Comment:Barbiturate cut-off is 200 ng/mL.Positive results are unconfirmed and should not be used fornon-medical purposes. Phencyclidine Screen Urine Not Detected Not Detect [facility] Comment:Phencyclidine cut-of f is 25 ng/mL.Positive results are unconfirmed and should not be used fornon-medical purposes. Amphetamine Screen Urine Not Detected Not Detect [facility] Comment:Amphetamine cut-off is 1000 ng/mL.Positive results are unconfirmed and should not be used fornon-medical purposes. Benzodiazepines Screen Urine Not Detected Not Detect [facility] Comment:Benzodiazepine cut-o ff is 200 ng/mL.Positive results are unconfirmed and should not be used fornon-medical purposes. Cocaine Screen Urine Not Detected Not Detect [facility] Comment:Cocaine cut-off is 3 00 ng/mL.Positive results are unconfirmed and should not be used fornon-medical purposes. Cannabinoid Screen Urine POSITIVE(A) Not Detect [facility] Comment:Cannabinoid cut-off is 50 ng/mL.Positive results are unconfirmed and should not be used fornon-medical purposes. Methadone Screen, Urine Not Detected Not Detect ng/mL [facility] Comment:Methadone cut-off is 300 ng/mL.Positive results are unconfirmed and should not be used fornon-medical purposes. FENTANYL URINE Not Detected Not Detect [facility] Comment:Fentanyl cut-off is 1 ng/mL.Positive results are unconfirmed and should not be used fornon-medical purposes. Oxycodone Urine Screen Not Detected Not Detect ng/mL [facility] Comment:Oxycodone cut-off is 100 ng/mL.Positive results are unconfirmed and should not be used fornon-medical purposes. Buprenorphine Screen Not Detected Not Detect ng/mL [facility] Comment:Buprenorphine cut-of f is 5 ng/mL.Positive results are unconfirmed and should not be used fornon-medical purposes. 12/29/2024 1:09 PM EDT 12/29/2024 1:16 PM EDT us Generic External Data Provider LAB URINE ORDERAB LES Final Result [facility] [address] [place] [phone] * Urinalysis w/reflex microscopic (12/29/2024 1:09 PM EDT) Color Urine Yellow [facility] Appearance Urine Clear [facility] PH 8.0 5.0 - 9.0 [facility] Glucose Urine UA Negative Negative mg/dL [facility] Urine Blood Negative Negative [facility] Specific [place] - Urine 1.015 1.005 - 1.025 [facility] Urine Protein Negative Neg-Trace mg/dL [facility] Urine Ketones Negative Negative mg/dL [facility] Nitrite Urine Negative Negative [facility] Leukocyte Esterase Urine Negative Negative [facility] 12/29/2024 1:09 PM EDT 12/29/2024 1:16 PM EDT Narrative [facility] - 12/29/2024 1:22 PM EDT Urine, Clean Catch us Generic External Data Provider LAB URINE ORDERAB LES Final Result Performing Organization Address City/State/[facility] Co de Phone Number [facility] [address] [place] [phone] * CT Abdomen Pelvis w/ Contrast (12/29/2024 12:55 PM EDT) Anatomical Region Laterality Modality Body, Pelvis, Abdomen Computed T omography 12/29/2024 12:5 5 PM EDT Narrative 12/29/2024 1:42 PM EDT [address] [address] [address] Scan Report Signed Patient: Harriet Valdez MR#: [id number] : 1970 Acct:[id number] Age/Sex: 54 / F ADM Date: 12/29/24 Loc: .ED Attending Dr: Ordering Physician: Cheryl Cobb DO Date of Service: 12/29/24 Procedure(s): CT abdomen pelvis w IV con Accession Number(s): [id number] cc: Emilie Davis MD; Cheryl Cobb DO Report Number: [id number]: Total DLP = 296.00 mGy-cm EXAMINATION: CT [...] 12/29/24 1340 DD/ 1255 TD/TT: 12/29/24 1329 Chemical Technician: Procedure Note Donotuseinterpreter, Image - 12/29/[address] [address] [address] Scan Report Signed Patient: Harriet ValdezMR#: [id number] : 1970Acct:[id number] Age/Sex: 54 / FADM Date: 12/29/24 Loc: HO.ED Attending Dr: Ordering Physician: Cheryl Cobb DO Date of Service: 12/29/24 Procedure(s): CT abdomen pelvis w IV con Accession Number(s): [id number] cc: Emilie Davis MD; Cheryl Cobb DO Report Number: [id number]: Total DLP = 296.00 mGy-cm EXAMINATION: CT [...] 12/29/24 1340 DD/ 1255 TD/TT: 12/29/24 1329 Chemical Technician: [facility] External Provider IMG CT PROCEDURES Final Result * Hepatic Function Panel (12/29/2024 10:00 AM EDT) Bilirubin, Total 0.4 0.0 - 1.0 mg/dL [facility] Bilirubin, Direct 0.1 0.0 - 0.5 mg/dL [facility] Aspartate Amino Transferase 26 5 - 31 U/L [facility] Alanine Aminotransferase 19 0 - 31 U/L [facility] Total Protein 7.6 6.5 - 8.0 g/dL [facility] Albumin Level 4.4 3.5 - 5.0 g/dL [facility] Alkaline Phosphatase 90 39 - 117 U/L [facility] 12/29/2024 10:0 0 AM EDT 12/29/2024 10:02 AM EDT us Generic External Data Provider LAB BLOOD ORDERAB LES Final Result [facility] [address] [place] [address] [phone] * (ABNORMAL) Basic Metabolic Panel (12/29/2024 10:00 AM EDT) Sodium 142 135 - 145 mmol/L [facility] Potassium 4.0 3.3 - 5.1 mmol/L [facility] Chloride 107 96 - 108 mmol/L [facility] Carbon Dioxide 30(H) 22 - 29 mmol/L [facility] Anion Gap 9(L) 12 - 20 [facility] Urea Nitrogen (BUN) 10 9 - 16 mg/dL [facility] Creatinine, Serum 0.75 0.5 - 1.4 mg/dL [facility] Creatinine Clr Calc Pharmacy 66.2 [facility] Comment:Provided height and weight: 162.56 cm,49.5 kg.eGFR (calculated from the MDRD study equation) and eCrCl(calculated from the Cockcroft-Gault equation) are based ondifferent parameters and may not yield comparable results.If eCrCl result is absurd, please check patient'sheight/weight. Estimated Glomerular Filt Rate >60 [facility] Comment:Chronic Kidney Disea se: Estimated GFR < 60 mL/min/1.06d3Llkmcr Kidney Disease: Estimated GFR < 15 mL/min/1.73m2 Glucose 117(H) 60 - 115 mg/dL [facility] Calcium 9.3 8.4 - 10.2 mg/dL [facility] 12/29/2024 10:0 0 AM EDT 12/29/2024 10:02 AM EDT us Generic External Data Provider LAB BLOOD ORDERAB LES Final Result Performing Organization Address [facility] Co de Phone Number [facility] [address] [place] [phone] * (ABNORMAL) Confirmatory Syphilis Profile (11/26/2024 1:24 PM EDT) [facility] Rapid Plasma Reagin, Quant Non-React darren Nonreactive [facility] Treponema pallidum Antibody, Particle Agglutination Reactive( A) Nonreactive [facility] Comment:These results must b e reported by the ordering clinician orclinical facility to the [facility] required by state law.Testing performed at: [address] [address] 11/26/2024 1:24 PM EDT 11/27/2024 3:54 AM EDT Emilie Davis MD LAB BLOOD ORDERABLES Final Result Performing Organization Address [facility] Co de Phone Number [facility] [address] [place] [phone] * (ABNORMAL) Syphilis Screen (11/26/2024 1:24 PM EDT) [facility] Syphilis Screen Reactive( A) Nonreactive [facility] Comment:[facility]. 11/26/2024 1:24 PM EDT 11/26/2024 4:06 PM EDT Emilie Davis MD LAB BLOOD ORDERABLES Final Result Performing Organization Address [facility] Co de Phone Number [facility] [address] [place] [phone] * Hepatitis C Viral RNA, Quantitative, Real-Time PCR (11/26/2024 1:24 PM EDT) [facility] Hepatitis C Viral Load <15 NOT DETECTED NOT DETECTED IU/mL [facility] HCV Log PCR <1.18 NOT DETECTED NOT DETECTED Log IU/mL [facility] Comment:For additional infor nura, please refer tohttp://education.Protecode/faq/LCE90z3(This link is being provided for informational/educational purposes only.)THIS TEST WAS PERFORMED AT:[employer] [place] [phone] MALDONADO MD 11/26/2024 1:24 PM EDT 11/27/2024 2:28 PM EDT Emilie Davis MD LAB BLOOD ORDERABLES Final Result Performing Organization Address [facility]/ZIP Co de Phone Number [facility] [address] [place] [phone] * (ABNORMAL) Hepatitis C Antibody with Reflex to HCV, RNA, Quantitative, Real- Time PCR (11/26/2024 1:24 PM EDT) Hepatitis C Antibody Reactive( A) Nonreactive [facility] Comment:Presumptive evidence of antibodies to HCV. 11/26/2024 1:24 PM EDT 11/26/2024 4:06 PM EDT Emilie Davis MD LAB BLOOD ORDERABLES Final Result Performing Organization Address [facility]/ZIP Co de Phone Number [facility] [address] [place] [phone] * Methylmalonic Acid (11/26/2024 1:24 PM EDT) Methylmalonic Acid 197 55 - 335 nmol/L [facility] Comment: Serum methylmalonic acid [...] outcomes,such as neural tube defects and intrauterine growthrestriction.[facility] utilized Multi-Modal Decomposition(MMD) analysis to establish first and second trimester-specific MMA reference intervals in , as givenbelow:MMA, First trimester (<13 wks gestation): 58-167 nmol/LMMA, Second trimester (13-23 wks gestation):63-241 nmol/LThis test was developed and its analytical performancecharacteristics have been determined by [employer]. It has not been cleared or approved by theA. This assay has been validated pursuant to the CLIAregulations and is used for clinical purposes.THIS TEST WAS PERFORMED AT:[employer]/[id number] [place] [phone] ESTEVEZ MD,PHD 11/26/2024 1:24 PM EDT 11/26/2024 4:06 PM EDT us Generic External Data Provider LAB BLOOD ORDERAB LES Final Result Performing Organization Address [facility]/ZIP Co de Phone Number [facility] [address] [place] [address] [phone] * RPR (Monitor) with Reflex to??Titer (11/26/2024 1:24 PM EDT) RPR (Monitor) w/Refl Titer NON-REACTI VE NON-REACT DARREN [facility] Comment:THIS TEST WAS PERFOR MED AT:[employer] [address] [phone] MALDONADO MD Rapid Plasma Reagin Ab Titer TNP [facility] 11/26/2024 1:24 PM EDT 11/26/2024 4:06 PM EDT us Emilie Davis MD LAB BLOOD ORDERABLES Final Result Performing Organization Address [facility]/ZIP Co de Phone Number [facility] [address] [place] [address] [place] [phone] * (ABNORMAL) Lipid Panel, Standard (07/24/2024 1:36 PM EDT) Triglycerides 141 <150 mg/dL [facility] Comment:Desirable Triglyceri de: less than 150 mg/dLBorderline High Triglyceride 150-199 mg/dLHigh Triglyceride: 200-499 mg/dLVery High Triglyceride: greater than or equal to 5OO mg/dL Cholesterol 205(H) <200 mg/dL [facility] Comment:Desirable Cholestero l: less than 200 mg/dLBorderline High Cholesterol: 200-239 mg/dLHigh Cholesterol: greater than 239 mg/dL LDL Cholesterol Calculated 114(H) <100 mg/dL [facility] Comment:Desirable LDL: less than 100 mg/dLNear Optimal/Above Optimal LDL: 110- 129 mg/dLBorderline High LDL: 130-159 mg/dLHigh LDL: 160-189 mg/dLVery High LDL: greater than or equal to 190 mg/dL HDL Cholesterol 63 >40 mg/dL [facility] Comment:Desirable HDL: great er than 40 mg/dL Note: This HDL assay may give artificially low results in patients with liver disease. 07/24/2024 1:36 PM EDT 07/24/2024 4:20 PM EDT us Generic External Data Provider LAB BLOOD ORDERAB LES Final Result [facility] [address] [place] [phone] * HPV mRNA E6/E7 w/Reflex to HPV Genotypes 16, 18/45 (03/22/2023 11:30 AM EST) HPV nRNA E6/E7 Not Detected Not Detected [facility] Comment:Methodology: Transcr iption-Mediated AmplificationThis assay detects E6/E7 viral messenger RNA (mRNA) from 14high-risk HPV types (16,18,31,33,35,39,45,51,52,56,58,59,66,68).Cervical sources are required for HPV testing.If a vaginal source from a patient who has had atotal hysterectomy with removal of cervix wassubmitted, please contact the testing laboratoryfor alternative testing options.For additional information, please refer tohttp://education.Protecode/faq/NLS709z8(This link if provided for information/educational purposes only.)THIS TEST WAS PERFORMED AT:[employer] [place] [phone] MALDONADO MD HPV mRNA E6/E7 [facility] HPV 16 RNA [facility] HPV 18/45 RNA [facility] 03/22/2023 11:3 0 AM EST 03/25/2023 12:20 PM EST us Emilie Davis MD LAB CYTOLOGY ORDERABLES nal Result [facility] [address] [place] [phone] * Pap Smear (03/22/2023 11:30 AM EST) 03/22/2023 11:3 0 AM EST 03/25/2023 12:20 PM EST Narrative [facility] - 04/11/2023 11:26 AM EST ----- ------- Name: Harriet Valdez Age/Sex: 53/F : 1970 Unit#: [id number] Attend Dr: RADHA VILLAREAL MD Re03/22/23 Status: DEP REF Location: [facility] Disch: ----- ------- SPEC : [id number] RECD: 03/25/23 STATUS: JANIE DUNLAP NUM: [id number] AMBREEN: 03/22/[address] [facility] [address]: Emilie Davis MD ENTERED: 03/25/230492 SP TYPE: Pap Smr OTHR DR: ORDERED: Pap Smear Interpretation Satisfactory for evaluation. Negative for intraepithelial lesion or malignancy. HPV mRNA E6/E7: NOT DETECTED This assay detects E6/E7 viral messenger RNA (mRNA) from 14 high-risk HPV types (16, 18, 31, 33, 35, 39, 45, 51, 52, 56, 58, 59, 66, 68) HPV testing performed by [facility], [place], [place]. See reference laboratory portion of the EMR for entire report. Clinical Information LMP: Unknown date Previous PAP test: Unknown date, WNL Other history: Pt on testosterone, surgical post menopause Material Received ThinPrep-Cervical ----- ------- Signed (signature on file) SERENA Alejandro (ASC) 04/11/23 1126 ----- ------- END OF REPORT Emilie Davis MD LAB CYTOLOGY ORDERABLES Fi nal Result [facility] [address] [place] [phone] * Colonoscopy (01/30/2018) [facility] Signature Colonoscopy normal Historical Provider HEALTH MAINTENANCE Final Result from Last 3 Months or Most Recently Relevant to Health Maintenance Insurance [facility] Forrst 3 Advance Directives Documents on File Type Date Recorded Patient Infusion Nurse Expl anation Advance Directives and Living Will 03/16/2024 Health Care Proxy 03/16/24 Care Teams Supervisor Assembly And Packing Relationship Specialty Start Date End Date Emilie Davis MD [address] [place] [address] PCP - General Family Medicine 05/13/18 Morales Echavarria FNP [address] [place] [phone] Nurse Practitioner Family Medicine 04/16/[address] [place] [address] Gastroenterology 05/26/24 Fred Castanon [address] [place] [address] [place] [phone] 07/21/24
--- OUTSIDE RECORDS SUMMARY | 2025-02-09 14:16 | XMS_ITS | Encounter Summary ---
Author Organization [employer] Address [address] 7t [place] [address] Care Team Providers Care Ocean Export Account Manager Name Role Phone Emilie Davis MD Primary Care Provider +1- [phone] Morales Echavarria Unavailable Unavailable August Unavailable Fred Castanon Unavailable Reason for Visit * Reason Onset Date Comments Referral 02/04/2025 Care Coordination 02/04/2025 Encounter Details Date Type Department Care Team (Late st Contact Info) Description 02/04/2025 Telephone [facility] [address] [place] [address] Emilie Davis MD [address] [place], [place] [phone] Referral; Care Coordination Social History Tobacco Use Types Packs/Day Years [...] 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 She said it can take several days for them to review. Will task to call back for update. * Telephone Encounter - Bijal Irene RN - 02/08/2025 2:09 PM EDT Telephone call placed to [facility] regarding below messages. Spoke with Jacquie who reports referral was marked as, received by the nurses and that they are pending the notes being scanned in, then they will call pt to book appointment. Appointment not yet able to be scheduled. * Telephone Encounter - Moira Cruz RN - 02/05/2025 2:02 PM EDT Incoming call from Shahbaz at [facility] who works with Aida Orozco NP. She said that due to [facility] not taking the pt's insurance, pt was referred STAT to [facility] on 02/03/25. Shahbaz called [facility] this morning and was told the providers typically take 1-2 days to review STAT referrals and was advised to call back [facility] on Saturday02/08/25 for information on appointment/procedure, etc. Prosthetics Technician asked for [facility] to call back nurses RYANNE with exact information, Shahbaz verbalized understanding. Called pt via [employer] [phone] and explained situation above, encouraged him to contact [facility] on Saturday and ask for update on referral to [facility] however also advised him if we hear anything we will call him to inform. Advised pt [facility] may contact him directly as well. Pt verbalized understanding. * Telephone Encounter - Moira Cruz RN - 02/05/2025 8:48 AM EDT Called [facility], left detailed messages on nurse line and provider line for call back regarding referral. * Telephone Encounter - Moira Cruz RN - 02/04/2025 12:11 PM EDT Per 01/28/25 [facility]astroenterology note from Aida Orozco, pt was to be referred to [facility] for speciality care for possible pancreatic mass. Spoke with pt via [employer] [phone]. Pt states he got call yesterday from [facility] stating they wont accept his insurance. Advised him will speak with [facility] and Dr Davis to see if referral can be sent elsewhere. Called [facility], they said second refe rral already made to [facility]. Asked for letter to be sent to pt with referral info, they will send. Called pt to advise of this and give phone number ([phone]). Called [facility], they have no referral on file for pt. Spoke to Dr. Davis who would like to clarify referral - to [facility] or oncology? Left follow up message with [facility] asking for callback [phone]. 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 They referred him to [facility]. Can you please confirm pt has apt for [facility] that is within 1-2 weeks, if not, please call GI to ask where he was referred and if they can expedite. Thank you. * Telephone Encounter - Ha Varma - 02/04/2025 8:37 AM EDT Tc from pt requesting to be referred to GI that takes his insurance. Any questions contact pt at [phone] documented in this encounter Plan of Treatment Upcoming Encounters Date Type Department Care Team (Late st Contact Info) Description 03/03/2025 9:30 AM EDT Office Visit [address] [address] Emilie Davis MD [address] [place] [address] 03/24/2025 11:00 AM EST Clinical Support [address] [address] Medina Lewis, RONALD [address] [place] [address] 06/04/2025 3:00 PM EST Office Visit [facility] OPTOM[facility]RY [address] [place] [address] Merissa Donis, GINA [address] [place] [address] documented as of this encounter Visit Diagnoses Not on filedocumented in this encounter Additional Health Concerns Assessment Noted Time PHQ-9 Depression Total Score: 3 04/30/20 9:17 AM EST documented as of this encounter Care Teams Ocean Export Account Manager Relationship Specialty Start Date End Date Emilie Davis MD 230 [place] [address] PCP - General Family Medicine 05/13/18 Morales Echavarria FNP [address] [place] [address] Nurse Practitioner Family Medicine 04/16/23 Aida Orozco [address] [place] [address] Gastroenterology 05/26/24 Fred Castanon [address] [place] [address] 07/21/24 documented as of this encounter
--- OUTSIDE RECORDS SUMMARY | 2025-02-09 14:16 | XMS_ITS | Encounter Summary ---
Author Organization [employer] Address [address] [facility] 7t [place] [address] Care Team Providers Care Auto Inspection Specialist Name Role Phone Emilie Davis MD Primary Care Provider +1- [phone] Morales Echavarria CHILD AND ADOLESCENT PSYCHIATRIST Unavailable Unavailable August Unavailable Fred Castanon Unavailable Encounter Details Date Type Department Care Team (Late st Contact Info) Description 04/22/2022 Orders Only [facility] [address] [place], [place] [phone] Emilie Davis MD [address] [place] [address] [phone] HSV (herpes simplex virus) anogenital infection (Primary [...] Description 03/03/2025 9:30 AM EDT Office Visit [address] [phone] Emilie Davis MD [address] [place] [address] [phone] 03/24/2025 11:00 AM EST Clinical Support [address] [place] [address] Medina Lewis, RN 230 [place] [address] 06/04/2025 3:00 PM EST Office Visit [facility] OPTOMETRY [address] [place] [address] Merissa Donis, OD 230 [place] [address] documented as of this encounter Visit Diagnoses Diagnosis HSV (herpes simplex virus) anogenital infection- Primary Herpes simplex without mention of complication documented in this encounter Care Teams Auto Inspection Specialist Relationship Specialty Start Date End Date Emilie Davis MD [address] [place] [address] PCP - General Family Medicine 05/13/18 Morales Echavarria FNP [address] [place] [address] Nurse Practitioner Family Medicine 04/16/23August [address] [place] [address] [address] [place] [address] Gastroenterology 05/26/24 Fred Castanon [address] [place] [address] 07/21/24 documented as of this encounter
--- OUTSIDE RECORDS SUMMARY | 2025-02-09 14:16 | XMS_ITS | Encounter Summary ---
Author Organization [employer] Address [address] [facility] [address] 7t [place] [address] Care Team Providers Care Territory Sales Representative Name Role Phone Emilie Davis MD Primary Care Provider +1- [phone] Morales Echavarria Unavailable Unavailable August Unavailable Fred Castanon Unavailable Encounter Details Date Type Department Care Team (Late st Contact Info) Description 03/25/2023 Orders Only [facility] 230 [place] [address] Emilie Davis MD 230 [place] [address] Social History Tobacco Use Types Packs/Day Years [...] Description 03/03/2025 9:30 AM EDT Office Visit [facility] [address] [place] [address] Emilie Davis MD [address] [place] [address] 03/24/2025 11:00 AM EST Clinical Support [facility] [address] [place] [address] Medina Lewis, RONALD 230 [place] [address] 06/04/2025 3:00 PM EST Office Visit [facility] OPTOM[facility] [address] [place] [address] Merissa Donis, OD 230 [place] [address] documented as of this encounter Visit Diagnoses Not on filedocumented in this encounter Additional Health Concerns Assessment Noted Time PHQ-9 Depression Total Score: 10 023 9:08 AM EDT documented as of this encounter Care Teams Territory Sales Representative Relationship Specialty Start Date End Date Emilie Davis MD [address] [place] [address] PCP - General Family Medicine 05/13/18 Morales Echavarria FNP [address] [place] [address] Nurse Practitioner Family Medicine 04/16/23OrozcoAugust [address] [place] [address] Gastroenterology 05/26/24 Fred Castanon [address] [place] [address] 07/21/24 documented as of this encounter
--- OUTSIDE RECORDS SUMMARY | 2025-02-09 14:16 | XMS_ITS | Encounter Summary ---
Author Organization [employer] [facility] Address [address] [facility] 7t [place] [address] Care Team Providers Care Wrong Address Clerk Name Role Phone Emilie Davis MD Primary Care Provider +1- [phone] Morales Echavarria RECYCLABLE MATERIALS DISTRIBUTOR Unavailable Unavailable August Unavailable Fred Castanon Unavailable Encounter Details Date Type Department Care Team (Late st Contact Info) Description 05/27/[address] [phone] Emilie Davis MD [address] [place] [address] [phone] Social History Tobacco Use Types Packs/Day Years [...] Description 03/03/2025 9:30 AM EDT Office Visit [address] [phone] Emilie Davis MD [address] [place] [address] [phone] 03/24/2025 11:00 AM EST Clinical Support [address] [phone] Medina Lewis RONALD 230 [place] [address] 06/04/2025 3:00 PM EST Office Visit [facility] OPTOMETRY [address] [place] [address] Merissa Donis, OD 230 [place] [address] documented as of this encounter Procedures Procedure [...] ORDERABLES F inal Result Performing Organization Address City/[facility]/ZIP Co de Phone Number [facility] [address] [place] [address] [phone] documented in this encounter Visit Diagnoses Not on filedocumented in this encounter Care Teams Wrong Address Clerk Relationship Specialty Start Date End Date Emilie Davis MD 230 [place] [address] PCP - General Family Medicine 05/13/18 Morales Echavarria FNP [address] [place] [address] Nurse Practitioner Family Medicine 04/16/23 Aida Orozco [address] [place] [address] 3rd [place] [address] Gastroenterology 05/26/24 Fred Castanon [address] [place] [address] 3rd [place] [address] 07/21/24 documented as of this encounter
--- OUTSIDE RECORDS SUMMARY | 2025-02-09 14:16 | XMS_ITS | Encounter Summary ---
Author Organization [employer] Address [address] [facility] 7t [place] [address] Care Team Providers Care Footwear Sales Leader Name Role Phone Emilie Davis MD Primary Care Provider +1- [phone] Morales Echavarria Unavailable Unavailable August Unavailable Fred Castanon Unavailable Reason for Visit * Reason Comments Med Refill Encounter Details Date Type Department Care Team (Late st Contact Info) Description 01/17/2024 Refill [facility] [address] [place] [address] mEilie Davis MD 230 [place], [place] [phone] 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) Social [...] Description 03/03/2025 9:30 AM EDT Office Visit [facility] [address] [place] [address] Emilie Davis MD 230 [place] [address] 03/24/2025 11:00 AM EST Clinical Support [facility] [address] [place] [address] Medina Lewis, RN 230 [place] [address] 06/04/2025 3:00 PM EST Office Visit [facility] OPTOMETRY [address] [place] [address] Merissa Donis, OD 230 [place] [address] documented as of this encounter Visit Diagnoses Diagnosis Gender 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- Primary documented in this encounter Additional Health Concerns Assessment Noted Time PHQ-9 Depression Total Score: 3 04/30/20 23 9:17 AM EST documented as of this encounter Care Teams Footwear Sales Leader Relationship Specialty Start Date End Date Emilie Davis MD 230 [place] [address] PCP - General Family Medicine 05/13/18 Morales Echavarria FNP 230 [place] [address] Nurse Practitioner Family Medicine 04/16/23 Aida Orozco [address] [place] [address] Gastroenterology 05/26/24 Fred Castanon [address] [place] [address] 07/21/24 documented as of this encounter
--- OUTSIDE RECORDS SUMMARY | 2025-02-09 14:16 | XMS_ITS | Encounter Summary ---
Author Organization [employer] [facility] Address [address] [facility] 7t [place] [address] Care Team Providers Care Vegetable Tester Name Role Phone Emilie Davis MD Primary Care Provider +1- [phone] Morales Echvaarria LEATHER GRADER Unavailable Unavailable August Unavailable Fred Castanon Unavailable Reason for Visit * Reason Onset Date Comments Med Refill 04/22/2024 Encounter Details Date Type Department Care Team (Late st Contact Info) Description 04/22/2024 Telephone [facility] 230 [place] [address] Emilie Davis MD 230 [place] [address] Med Refill Social History Tobacco Use Types [...] 200 MG/5ML suspension To be sent to: [facility] [place], [place] - [address] [facility] documented in this encounter Plan of Treatment Upcoming Encounters Date Type Department Care Team (Late st Contact Info) Description 03/03/2025 9:30 AM EDT Office Visit [facility] 230 [place] [address] Emilie Davis MD 230 [place] [address] 03/24/2025 11:00 AM EST Clinical Support [facility] 230 [place] [address] Medina Lewis, RN 230 [place] 06/04/2025 3:00 PM EST Office Visit [facility] OPTOMETRY 267 [place] [address] Merissa Donis, OD 230 [place] [address] documented as of this encounter Visit Diagnoses Not on filedocumented in this encounter Additional Health Concerns Assessment Noted Time PHQ-9 Depression Total Score: 3 04/30/20 9:17 AM EST documented as of this encounter Care Teams Vegetable Tester Relationship Specialty Start Date End Date Emilie Davis MD [address] [place] [address] PCP - General Family Medicine 05/13/18 Morales Echavarria FNP [address] [place] [address] Nurse Practitioner Family Medicine 04/16/23August [address] [place] [address] Gastroenterology 05/26/24 Fred Castanon [address] [place] [address] 07/21/24 documented as of this encounter
--- OUTSIDE RECORDS SUMMARY | 2025-02-09 14:16 | XMS_ITS | Encounter Summary ---
Author Organization [employer] [facility] Address [address] [facility] 7t [place] [address] Care Team Providers Care Log Roper Name Role Phone Emilie Davis MD Primary Care Provider +1- [phone] Morales Echavarria Unavailable Unavailable August Unavailable Fred Castanon Unavailable Reason for Referral * Consultation (Urgent) - Closed Specialty Diagnoses / Procedures Referred By Contac t Referred To Contact Behavioral Health Diagnoses Depression, unspecified depression type Emilie Davis MD [address] [place] [address] Phone: tel: fax: Referral ID Status Reason Start Date Expiration Date V isits Requested Visits Authorized [id number] Closed Specialty Services Required 02/05/2025 02/05/2026 1 1 Encounter Details Date Type Department Care Team (Late st Contact Info) Description 02/05/[address] 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INE [address] [place] [address] Emilie Davis MD [address] [place] [address] 03/24/2025 11:00 AM EST Clinical Support [facility] 230 [place] [address] Medina Lewis, RN 230 [place] [address] 06/04/2025 3:00 PM EST Office Visit [facility] OPTOMETRY [address] [place] [address] Merissa Donis, OD 230 [place] [address] Scheduled Referrals Name Type Priority Associated Diagnoses Orde r Schedule Referral to Behavioral Health Outpatient Referral Routine Depression, unspecified depression type Expected: 02/05/2025 (Approximate), Expires: 08/05/2026 documented as of this encounter Visit Diagnoses Diagnosis Depression, unspecified depression type- Primary documented in this encounter Additional Health Concerns Assessment Noted Time PHQ-9 Depression Total Score: 3 04/30/20 23 9:17 AM EST documented as of this encounter Care Teams Log Roper Relationship Specialty Start Date End Date Emilie Davis MD [address] [place] [address] PCP - General Family Medicine 05/13/18 Morales Echavarria FNP [address] [place] [address] Nurse Practitioner Family Medicine 04/16/23August [address] [place] [address] Gastroenterology 05/26/24 Fred Castanon [address] [place] [address] 07/21/24 documented as of this encounter
--- OUTSIDE RECORDS SUMMARY | 2025-02-09 14:16 | XMS_ITS | Encounter Summary ---
Author Organization [employer] [facility] Address [address] [facility] 7t [place] [address] Care Team Providers Care Painter Helper Sign Name Role Phone Emilie Davis MD Primary Care Provider +- [phone] Morales Echavarria ELECTRIC ORGAN ASSEMBLER Unavailable Unavailable August Unavailable Fred Castanon Unavailable Reason for Visit * Reason Comments Med Refill Encounter Details Date Type Department Care Team (Late st Contact Info) Description 06/27/2022 Refill [facility] MED[facility]INE [address] [place] [address] [phone] Emilie Davis MD [address] [place] [address] [phone] Social History Tobacco Use Types Packs/Day Years [...] 03/03/2025 9:30 AM EDT Office Visit [facility] [address] [place] [address] [phone] Emilie Davis MD [address] [place] [address] [phone] 03/24/2025 11:00 AM EST Clinical Support [address] [address] Medina Lewis, RN 230 [place] [address] 06/04/2025 3:00 PM EST Office Visit [facility] OPTOMETRY [address] [place] [address] Merissa Donis, OD 230 [place] [address] documented as of this encounter Visit Diagnoses Not on filedocumented in this encounter Care Teams Painter Helper Sign Relationship Specialty Start Date End Date [place], [place] Emilie 230 [place] [address] PCP - General Family Medicine 05/13/18 Morales Echavarria FNP [address] [place] [address] Nurse Practitioner Family Medicine 04/16/23 Aida Orozco [address] [place] [address] 3[address] [place] [address] Gastroenterology 05/26/24 Fred Castanon [address] [place] [address] 07/21/24 documented as of this encounter
--- OUTSIDE RECORDS SUMMARY | 2025-02-09 14:16 | XMS_ITS | Encounter Summary ---
Author Organization [employer] [facility] Address [address] [facility] 7t [place] [address] Care Team Providers Care Coating Mixer Name Role Phone Emilie Davis MD Primary Care Provider +1- [phone] Morales Echavarria Unavailable Unavailable August Unavailable Fred Castanon Unavailable Encounter Details Date Type Department Care Team (Late st Contact Info) Description 11/28/2022 Abstract [facility] [address] [place] [address] Emilie Davis MD 230 [place], [place] [phone] Social History Tobacco Use Types Packs/Day Years [...] 03/03/2025 9:30 AM EDT Office Visit [facility] [address] [place] [address] [phone] Emilie Davis MD [address] [place] [address] [place] [address] 03/24/2025 11:00 AM EST Clinical Support [facility] 230 [place] [address] Medina Lewis, RONALD 230 [place] [address] 06/04/2025 3:00 PM EST Office Visit [facility] OPTOMETRY [address] [place] [address] Merissa Donis, OD 230 [place] [address] documented as of this encounter Visit Diagnoses Not on filedocumented in this encounter Additional Health Concerns Assessment Noted Time PHQ-9 Depression Total Score: 19 023 9:24 AM EDT documented as of this encounter Care Teams Coating Mixer Relationship Specialty Start Date End Date Emilie Davis MD [address] [place] [address] PCP - General Family Medicine 05/13/18 Morales Echavarria FNP [address] [place] [address] Nurse Practitioner Family Medicine 04/16/23 Aida Orozco [address] [place] [address] Gastroenterology 05/26/24 Fred Castanon [address] [place] [address] 07/21/24 documented as of this encounter
--- OUTSIDE RECORDS SUMMARY | 2025-02-09 14:16 | XMS_ITS | Encounter Summary ---
Author Organization [employer] Address [address] [facility] [address] 7t [place] [address] Care Team Providers Care Personnel Administrator Name Role Phone Emilie Davis MD Primary Care Provider +1- [phone] ASSOCIATE JUSTICE Unavailable Unavailable August Unavailable Fred Castanon Unavailable Reason for Visit * Reason Onset Date Comments Referral 07/20/2024 Encounter Details Date Type Department Care Team (Late st Contact Info) Description 07/20/2024 Telephone [facility] MEDICINE 230 [place] [address] Emilie Davis MD 230 [place] [address] Referral Social History Tobacco Use Types Packs/Day [...] 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 Contact pt at [phone] documented in this encounter Plan of Treatment Upcoming Encounters Date Type Department Care Team (Late st Contact Info) Description 03/03/2025 9:30 AM EDT Office Visit [facility] MEDICINE [address] [place] [address] Emilie Davis MD [address] [place] [address] 03/24/2025 11:00 AM EST Clinical Support [facility] MEDICINE [address] [place] [address] Medina Lewis, RONALD [address] [place] [address] 06/04/2025 3:00 PM EST Office Visit [facility] OPTOMETRY [address] [place] [address] Merissa Donis, GINA 230 [place] [address] documented as of this encounter Visit Diagnoses Not on filedocumented in this encounter Additional Health Concerns Assessment Noted Time PHQ-9 Depression Total Score: 3 04/30/20 9:17 AM EST documented as of this encounter Care Teams Personnel Administrator Relationship Specialty Start Date End Date Emilie Davis MD 230 [place] [address] PCP - General Family Medicine 05/13/18 Morales Echavarria FNP [address] [place] [address] Nurse Practitioner Family Medicine 04/16/23 Aida Orozco [address] [place] [address] Gastroenterology 05/26/24 Fred Castanon [address] [place] [address] 07/21/24 documented as of this encounter
--- OUTSIDE RECORDS SUMMARY | 2025-02-09 14:16 | XMS_ITS | Clinical Summary ---
Author Organization [facility] Address [address] [address] Phone Care Team Providers Care Security Officer Supervisor Name Role Phone Emilie Davis MD [...] ACO C3 ACO C3 ACO C3 ACO [facility] C3 ACO [employer] Advance Directives For more information, please contact: [phone] (9AM - 5PM [facility], Saturday-Saturday) * Full Code (Presumed) (Latest Code Status on File) Date Activated Date Inactivated Comments 10/28/2018 9:51 AM 10/28/2018 7:25 PM Care Teams Security Officer Supervisor Relationship Specialty Start Date End Date Goliad, Emilie Way MD [address] [place] [address] PCP - General Family Medicine 06/03/18 Additional Source Comments The information contained in this document represents components of the legal health record. It is not the complete legal health record.[facility]
--- OUTSIDE RECORDS SUMMARY | 2025-02-09 14:16 | XMS_ITS | Encounter Summary ---
Author Organization [facility] Address [address] [place] [address] Phone Care Team Providers Care Orthopedic Cast Specialist Name Role Phone Emilie Daivs MD Primary Care Provi baldomero Encounter Details Date Type Department Care Team (Late st Contact Info) Description 10/28/2018 Procedure Pass OR Admitting Dept - Virtual Department [address] [place] [id number] Social History Tobacco Use Types Packs/Day Years [...] on filedocumented in this encounter Care Teams Orthopedic Cast Specialist Relationship Specialty Start Date End Date Emilie Davis MD [address] [place] [id number] PCP - General Family Medicine 06/03/18 documented as of this encounter Additional Source Comments The information contained in this document represents components of the legal health record. It is not the complete legal health record.[facility]
--- OUTSIDE RECORDS SUMMARY | 2025-02-09 14:16 | XMS_ITS | Encounter Summary ---
Author Organization [facility] Address [address] [facility] [address] [place] [address] Care Team Providers Care Compounder Sterile Products Name Role Phone Emilie Davis MD Primary Care Provider [phone] Morales Echavarria PRESS ROOM SUPERVISOR Unavailable Unavailable August Unavailable Fred Castanon Unavailable Reason for Visit * Reason Onset Date Comments Referral 07/18/2022 Encounter Details Date Type Department Care Team (Late st Contact Info) Description 07/18/2022 Telephone [facility] [address] [place] [address] Emilie Davis MD [address] [place] [address] Referral Social History Tobacco Use Types Packs/Day [...] to our [facility]. Please contact pt [phone] documented in this encounter Plan of Treatment Upcoming Encounters Date Type Department Care Team (Late st Contact Info) Description 03/03/2025 9:30 AM EDT Office Visit [facility] [address] [place] [address] Emilie Davis MD [address] [place] [address] 03/24/2025 11:00 AM EST Clinical Support [facility] [address] [place] [address] Medina Lewis, RONALD [address] [place] [address] 06/04/2025 3:00 PM EST Office Visit [facility] OPTOMETRY [address] [place] [address] Merissa Donis, OD [address] [place] [address] documented as of this encounter Visit Diagnoses Not on filedocumented in this encounter Care Teams Compounder Sterile Products Relationship Specialty Start Date End Date Emilie Davis MD [address] [place] [address] PCP - General Family Medicine 05/13/18 Morales Echavarria FNP [address] [place] [address] Nurse Practitioner Family Medicine 04/16/23 Aida Orozco [address] [place] [address] Drive [address] [place] [address] Gastroenterology 05/26/24 Fred Castanon [address] [place] [address] 07/21/24 documented as of this encounter
== END 2025-02-09 14:27 | disposition home or self-care (01) ==
LOC: HO.RHES 13:05
PROVIDERS: PCP Family Medicine; Visit Provider Student in an Organized Health Care Education/Training Program
DX: M15.4 Erosive (osteo)arthritis (principal); M70.62 Trochanteric bursitis, left hip
CPT/HCPCS: 20610; 99213

== ENCOUNTER → 2025-02-09 18:15 | Outpatient (BNV) | payer OTHER, SELFPAY | PROVIDERS: PCP Family Medicine; Visit Provider Radiology Diagnostic Radiology | DX: M47.816 Spondylosis without myelopathy or radiculopathy, lumbar region (principal); M51.26 Other intervertebral disc displacement, lumbar region | CPT/HCPCS: 72148 ==

== ENCOUNTER 2025-02-09 18:22 | Outpatient (REF) | payer OTHER, SELFPAY ==
--- NOTE | ~2025-02-09 | MR_ITS ---
EXAMINATION: MR LUMBAR SPINE WITHOUT CONTRAST CLINICAL INFORMATION: M 54.50. Low back pain, unspecified. COMPARISON: October 16, 2021. TECHNIQUE: MRI of the lumbar spine was obtained using routine sequences without contrast. FINDINGS: Last rib-bearing vertebra labeled T12. Bone marrow STIR signal in the superior endplate of L5. Multilevel disc desiccation throughout the axial skeleton pronounced at L3-4 and L4-5. Normal alignment. Conus medullaris ends at the inferior endplate of L1 with normal signal. 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 No tethered cord. T11-12: No herniated disc. No neuroforamina stenosis. T12-L1: No disc herniation. No neuroforamina stenosis. L1-2: Broad-based disc bulging. Facet joint and ligamentum flavum hypertrophy. No compression upon neural elements. L2-3: Broad-based left foraminal disc herniation resulting in left neuroforamina narrowing, abutting the left L2 exiting nerve root. Bilateral facet joint hypertrophy as well as ligamentum flavum. No central spinal canal stenosis. L3-4: Broad-based left subarticular and foraminal disc herniation resulting in left neuroforamina stenosis encroaching the left L3 exiting nerve root. Bilateral facet joint and ligamentum flavum hypertrophy producing the AP diameter of the thecal sac. L4-5: Broad-based disc bulging abutting the L5 nerve roots on the lateral recesses. Bilateral facet joint and ligamentum flavum hypertrophy producing the AP diameter of the thecal sac. Bilateral neuroforamina narrowing. L5-S1: Broad-based disc bulging. Bilateral facet joint hypertrophy. Reduced AP diameter of the thecal sac. Bilateral neuroforamina narrowing, left greater than the right side likely encroaching the left L5 exiting nerve root. No prevertebral compartment hematoma, mass or fluid collection. MR/MR lumbar spine wo con IMPRESSION: Multilevel lumbar spondylosis, L2-3 to L5-S1 pronounced at L3-4 and L4-5. Broad-based left subarticular and foraminal herniated disc at L3-4 and to a lesser extent L2-3 encroaching the exiting nerve roots. Overall slight worsening at L2-3 levels Electronically signed by: Eric Daley MD 02/10/2025 07:15 AM EDT RP
== END 2025-02-09 18:23 | disposition home or self-care (01) ==
LOC: HO.MRI 18:22
PROVIDERS: PCP Family Medicine; Visit Provider Orthopaedic Surgery
DX: M54.50 Low back pain, unspecified (principal); M79.605 Pain in left leg; M15.4 Erosive (osteo)arthritis; M70.62 Trochanteric bursitis, left hip
CPT/HCPCS: 20610; 72148; 99212; J2003; J3301

== ENCOUNTER 2025-02-18 14:17 | Outpatient (AMB) | payer OTHER, SELFPAY ==
--- NOTE | 2025-02-18 14:20 | MHC.OFFVIS ---
Vital Signs 02/18/25 14:22 Height 5 ft 5 in Weight 105 lb BMI 17.5 BP 168/81 H Blood Pressure Location Rt brachial Position Sitting Pulse 53 Intake Visit Reasons: Follow up 3 weeks Intake Note: Patient in office today in follow up of pancreatic mass. CC: Patient reports that he had the EUS done today and has a lot of epigastric pain. Enterostomal Therapy Nurse Required: Yes Accompanied by: Self / Same As Patient Allergies black pepper Allergy (Severe, Verified 03/31/25 15:40) Anaphylaxis Penicillins (PENICILLINS) Allergy (Intermediate, Verified 03/31/25 15:40) HIVES,SWELLING sumatriptan (SUMATRIPTAN) Adverse Reaction (Severe, Verified 03/31/25 15:40) PT STATES HEART ATTACK berries Allergy (Unknown, Uncoded 03/30/25 15:02) Anaphylaxis HPI HPI Follow up 3 weeks: Details: Assessment & Plan (1) Pancreatic mass: Code(s): K86.89 - Other specified diseases of pancreas Category: Medical (2) Abnormal weight loss: Code(s): R63.4 - Abnormal weight loss Category: Medical (3) 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 The patient is still is experiencing significant constipation despite Linzess 290. I suggest that we add bisacodyl 2 at nighttime and will continue to titrate this treatment. He continues to have significant feeling of pressure and bloating at times with certain foods. This severe chest pain/pressure has been alleviate and since the endoscopy. This was ordered emergently because chest x-ray showed possible esophageal achalasia with ballooning of the esophagus. After the hospitalization for acute pancreatitis an MRI was ordered. Sadly, this study shows a mass at the head of the pancreas that is putting pressure on the bile ducts and has a potential contribution to the swallowing problems. I advise him of the findings and that we need to get him urgently to a tertiary facility where they can do either an endoscopic ultrasound or an ERCP biopsy to determine the nature of the mass. I hope that it is not pancreatic cancer. 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 They also would be a quick to do an esophageal manometry to tease out potential achalasia. Endoscopies have never show any stricture or reason for the dysphagia but there does appear to be a significant esophageal movement problem. He is appreciative of all we have done and is hopeful of a good recovery but is aware that the mass could be a very serious diagnosis. Return office visit in 3 weeks to adjust the constipation treatment Orders: Orders Carbohydrate Antigen 19-9 Today K86.89 - Other specified diseases of pancreas Referrals Gastroenterology Referral K22.0 - Achalasia of cardia, K86.89 - Other specified diseases of pancreas, R63.4 - Abnormal weight loss Medications: New bisacodyl (Dulcolax (bisacodyl)) 10 mg (2 x 5 mg) PO BEDTIME 60 tabs 6RF 30 days [place] # PFSH Medical History (Updated 04/02/25 @ 08:32 by Yolis Scott [facility]) Pancreatic adenocarcinoma Elevated LFTs Pancreatic mass Acute pancreatitis Pancreatic mass Upper abdominal pain Erosive esophagitis Abdominal pain Sleep difficulties Vomiting LEE (dyspnea on exertion) Arthritis Occipital neuralgia of left side New onset headache Diverticulosis of colon Chronic, continuous use of opioids Chronic GERD Palpitations Hypotension History of palpitations Dysphagia Disc degeneration, lumbar Spondylosis of lumbar spine Depression Past heart attack Hyperlipemia Erosive osteoarthritis of hands, bilateral GERD (gastroesophageal reflux disease) Hypertension Surgical History History of cholecystectomy Hx of colonoscopy History of esophagogastroduodenoscopy (EGD) H/O bilateral mastectomy H/O: hysterectomy Family History Mother Hypertension Breast cancer Maternal Grandmother Myocardial infarct Skin cancer Sister Heart problem Breast cancer Family/Other Esophageal cancer Social History Household Members: None Housing: Apartment Are you a primary palliative care nurse practitioner to a significant other at home: No Do you presently have visiting nurse or other home services: No Alcohol intake: never Patient Tobacco Use Status: Former Tobacco user Second Hand Smoke Exposure: No Substance Use Type: Marijuana service: No Review of Systems Const Denies fatigue, Denies fever(s), Reports lethargy, Reports malaise, Denies night sweats, Denies poor appetite and Reports weight loss ENT Reports Normal hearing present, Denies dental pain, Reports dysphagia, Denies hearing loss, Denies mouth pain, Denies odynophagia, Denies throat swelling, Denies tongue swelling and Reports other (Dentition adequate) Card Reports no additional complaints Resp Reports no additional complaints GI Details: Reports abdominal pain, Denies melena, Reports bloating, Denies hematochezia, Reports constipation, Denies GI cramping, Reports dysphagia, Denies excessive flatus, Denies early satiety, Reports heartburn, Denies diarrhea, Denies nausea, Denies odynophagia, Denies vomiting and Denies hematemesis Skin/Breast Denies pruritus, Denies lesions, Denies rash and Denies jaundice Neuro Reports Normal hearing present and Denies Abnormal speech present Endo Denies fatigue Aller/Immun Denies throat swelling and Denies tongue swelling Physical Exam Vital Signs: Last Vital Signs Pulse 53 02/18/25 14:22 BP 168/81 H 02/18/25 14:22 BMI result Body Mass Index 17.5 Const General: cooperative, no acute distress, well developed and well groomed Nutritional Appearance: well nourished and thin Orientation/consciousness: oriented to person, oriented to place and oriented to time Limitations: language barrier HEENT Head: Yes normocephalic and Yes atraumatic Eyes General: appearance normal, both eyes and all related structures Pupils: Equal, round and reactive pupils present Neck Neck: Yes normal visual inspection and Yes no lymphadenopathy Thyroid: Thyroid normal Resp Effort & Inspection: normal respiratory effort and able to speak in complete sentences Auscultation: clear to auscultation bilaterally Cardio Rate: regular rate Rhythm: regular rhythm Heart sounds: Normal, physiologic split S2 sound present Peripheral pulses: radial pulses present and posterior tibial pulses present GI Inspection: No distended and No Abdominal panniculus present Palpation (GI): Soft to palpation, Tenderness to palpation present (GI) in the epigastrum and periumbilically, no guarding, not rigid and No hepatosplenomegaly present Percussion: Yes normal to percussion Auscultation: normal bowel sounds Rectal Exam - Female: deferred Skin General skin exam: no rashes or lesions noted, turgor normal, skin not dry, no jaundice, No spider nevi and no striae Rashes: no rashes Nails: normal Neuro General: oriented to person, oriented to place and oriented to time Cranial nerves: Yes Equal, round and reactive pupils present and Yes Normal hearing present Speech: No Abnormal speech present Extrem General: Yes normal to inspection, No clubbing, No cyanosis and No edema Psych Appearance: grossly normal and well kempt Mental Status: mental status grossly normal Speech and movement: Normal speech and movement present Affect: normal affect Attitude: cooperative Thought process: Normal thought process present and not confabulating Thought content: Normal thought content present Insight: Good insight present (Psych) Judgement: Good judgement present (Psych) Assessment & Plan Assessment & Plan (1) Acute pancreatitis: Code(s): K85.90 - Acute pancreatitis without necrosis or infection, unspecified Category: Medical (2) Pancreatic mass: Code(s): K86.89 - Other specified diseases of pancreas Category: Medical (3) Upper abdominal pain: Code(s): R10.10 - Upper abdominal pain, unspecified Category: Medical Plan His current GI regimen consists of Linzess 290 micro g, famotidine 40 mg at night, sucralfate once a day, and Creon. - The patient is a 55-year-old female presenting with abdominal pain. She had unexplained pancreatitis and a CAT scan showed a mass that was very concerning for pancreatic cancer. - Clinical History: The patient describes persistent, severe abdominal pain, like squeezing in the epigastric region, affecting her breathing. This pain mirrors past pancreatitis episodes. - Recent Changes: The pain acutely intensified following a recent biopsy procedure and potential pancreatic stent placement aimed at addressing an obstructive issue. - Associated Symptoms: Reporting white stools, raising concern for obstructive jaundice or biliary involvement. - Gastrointestinal History: Past episodes of pancreatitis necessitated hospitalization. Swallowing difficulty emerged, gradually worsening over time, further complicating oral medication administration. - Bowel Management: Currently able to have daily bowel movements with dietary and medication intervention; however, recent changes in pain management may influence bowel regularity. I extensively discussed the evaluation of her abdominal pain, focusing on managing her symptoms to prevent further complications from pancreatitis. We addressed her swallowing difficulties, outlining the approach to medication administration using crushable or liquid forms. I emphasized the importance of obtaining expedited biopsy results to confirm a possible pancreatic cancer diagnosis. I noted the high-risk nature of the condition and the plans to act swiftly upon confirmation. We discussed the planned follow-up, with emphasis on keeping open communication lines for any emerging symptoms or changes. She was advised on the potential outcomes and the need for further tests to precisely delineate the causes of her symptoms. I ensured she understands the balance of managing the pain while monitoring for adverse effects of medications used. Return office visit next week to evaluate her stooling. Extensive time was spent educating her about the possibility of pancreatic cancer, the fact that it usually has a poor prognosis and time is of the essence. Orders: Orders Amylase 02/18/25 K85.90 - Acute pancreatitis without necrosis or infection, unspecified, R10.10 - Upper abdominal pain, unspecified Lipase 02/18/25 K85.90 - Acute pancreatitis without necrosis or infection, unspecified, R10.10 - Upper abdominal pain, unspecified Lactate Dehydrogenase 02/18/25 K85.90 - Acute pancreatitis without necrosis or infection, unspecified, R10.10 - Upper abdominal pain, unspecified Complete Blood Count Auto Diff 02/18/25 K85.90 - Acute pancreatitis without necrosis or infection, unspecified, R10.10 - Upper abdominal pain, unspecified Medications: New morphine Partial Fill upon patient request. 15 mg PO Q4H PRN 14 tabs 0RF pain K86.89 - Other specified diseases of pancreas, K85.90 - Acute pancreatitis without necrosis or infection, unspecified Coding Level of Care Code Est Pt Level 4 (94039) Diagnoses Acute pancreatitis K85.90 Pancreatic mass K86.89 Upper abdominal pain R10.10
[2025-02-18 14:22] VITALS: BP 168/81; PULSE 53; BMI 17.5
== END 2025-02-18 15:11 | disposition home or self-care (01) ==
LOC: HO.HGI 14:18
PROVIDERS: PCP Family Medicine; Visit Provider Nurse Practitioner
DX: K85.90 Acute pancreatitis without necrosis or infection, unspecified (principal); K86.89 Other specified diseases of pancreas; R10.10 Upper abdominal pain, unspecified
CPT/HCPCS: 99214

== ENCOUNTER 2025-02-18 14:17 | Outpatient (REF) | payer OTHER, SELFPAY ==
[2025-02-18 15:29] LABS: MANUAL DIFF FLAG NO
[2025-02-18 15:46] LABS: Hematocrit 44.9 % (37.0-47.0); Hemoglobin 14.7 g/dl (12.0-16.0); Imm Gran Abs Auto 0.07 X10*3/uL (0.00-0.03); Imm Gran Pct Auto 0.4 % (0.0-0.4); Lymphocytes Absolute Auto 2.2 X10*3/uL (1.2-4.9); Mean Corpuscular HGB Conc 32.7 g/dl (31.0-35.0); Mean Corpuscular Hemoglobin 28.9 pg (27.0-33.0); Mean Corpuscular Volume 88.4 fL (80.0-98.0); NRBC Abs Auto 0.000 X10*3/uL (0.0-0.012); NRBC Pct Auto 0.0 /100WBC (0.0-0.2); Platelet Count 364 X10*3/uL (160-400); Red Blood Count 5.08 X10*6/uL (4.20-5.50); White Blood Count 16.6 X10*3/uL (4.8-10.8)
[2025-02-18 16:38] LABS: Amylase 113 U/L (28-100); Lipase 40 U/L (8-78)
== END 2025-02-18 14:18 | disposition home or self-care (01) ==
LOC: HO.LAB 14:17
PROVIDERS: PCP Family Medicine; Visit Provider Nurse Practitioner
DX: K85.90 Acute pancreatitis without necrosis or infection, unspecified (principal); K86.89 Other specified diseases of pancreas; R10.10 Upper abdominal pain, unspecified; K59.00 Constipation, unspecified
CPT/HCPCS: 36415; 82150; 83615; 83690; 85025; 99212

== ENCOUNTER 2025-02-18 17:12 | Inpatient (IN) | payer OTHER, SELFPAY ==
--- NOTE | ~2025-02-18 | CT_ITS ---
CLINICAL HISTORY: ad pain severe CT abdomen and pelvis with contrast Comparison: MR - MR ABDOMEN WO/W CON - 01/19/25 10:[address]/SR - CT ABDOMEN PELVIS WITH IV CONTRAST - 12/29/24 12:55 EDT Findings: The lung bases are clear. Calcified granuloma in the posterior right lower lobe. Status post cholecystectomy. Mild intrahepatic biliary tree dilation, more pronounced on the left, progressed from 12/29/2024 CT but accounting for differences in modality, essentially stable from 01/19/2025 MRI. The common bile duct is distended to 1.7 cm. It measured 1 cm on 01/19/2025 MRI. No radiopaque biliary stones are seen. As noted on MRI of the abdomen, there is a 2.7 x 1.6 cm mass near the head of the pancreas /uncinate processthat may be part of the pancreas or alternatively a peripancreatic lymph node (series 3, image 32). Pancreatic duct is not significantly dilated. The portal mesenteric venous confluence is compressed by the mass but the portal, mesenteric, and splenic veins are patent. Other solid organs are unremarkable. No bowel obstruction, pneumoperitoneum, or pneumatosis. Colonic diverticulosis without evidence of diverticulitis. Normal appendix. Urinary bladder is underdistended limiting evaluation. The uterus appears surgically absent. the bones are intact. IMPRESSION: 2.7 x 1.6 cm mass near the head of the pancreas/uncinate process that may be part of the pancreas or a large peripancreatic lymph node resulting in mild intrahepatic biliary tree dilation and severe dilation of the common bile duct, which measures 1.7 cm, increased from 01/19/2025 MRI. Again advise GI consultation for consideration of ERCP /EUS guided biopsy of pancreatic mass/peripancreatic lymph node. The portal mesenteric venous confluence is compressed by the mass but the portal, mesenteric, and splenic veins are patent. This document has been electronically signed by: Que Colon MD on 02/18/2025 21:22:17
[2025-02-18 17:16] VITALS: BP 170/80; PULSE 52
[2025-02-18 17:23] VITALS: BP 183/86; PULSE 51; RESP 16; TEMP 36.8; O2SAT 100; BMI 17.5
[2025-02-18 18:15] VITALS: RESP 20
[2025-02-18 18:16] LABS: MANUAL DIFF FLAG NO
[2025-02-18 18:17] VITALS: BP 183/90; PULSE 50; RESP 20
[2025-02-18 18:18] LABS: Hematocrit 47.4 % (37.0-47.0); Hemoglobin 15.7 g/dl (12.0-16.0); Imm Gran Abs Auto 0.07 X10*3/uL (0.00-0.03); Imm Gran Pct Auto 0.4 % (0.0-0.4); Lymphocytes Absolute Auto 1.7 X10*3/uL (1.2-4.9); Mean Corpuscular HGB Conc 33.1 g/dl (31.0-35.0); Mean Corpuscular Hemoglobin 29.1 pg (27.0-33.0); Mean Corpuscular Volume 87.8 fL (80.0-98.0); NRBC Abs Auto 0.000 X10*3/uL (0.0-0.012); NRBC Pct Auto 0.0 /100WBC (0.0-0.2); Platelet Count 374 X10*3/uL (160-400); Red Blood Count 5.40 X10*6/uL (4.20-5.50); White Blood Count 17.9 X10*3/uL (4.8-10.8)
[2025-02-18 18:35] LABS: Lipase 46 U/L (8-78)
[2025-02-18 18:43] LABS: Alanine Aminotransferase 851 U/L (0-31); Albumin Level 4.8 g/dL (3.5-5.0); Alkaline Phosphatase 190 U/L (39-117); Anion Gap 15 (12-20); Aspartate Amino Transferase 1244 U/L (5-31); Blood Urea Nitrogen 10 mg/dL (9-16); Calcium 9.9 mg/dL (8.4-10.2); Carbon Dioxide 27 mmol/L (22-29); Chloride 103 mmol/L (96-108); Creatinine Clr Calc Pharmacy 77.5; Estimated Glomerular Filt Rate > 60; Potassium 4.8 mmol/L (3.3-5.1); Sodium 140 mmol/L (135-145); Total Protein 8.4 g/dL (6.5-8.0)
--- NOTE | 2025-02-18 19:30 | PC.NURSE ---
assumed care of pt, pt sleeping, respirations even and unlabored, awaiting CT scan to be done. pt wristband confirmed as correct pt in the room.
--- NOTE | 2025-02-18 19:43 | ED_ITS ---
HPI - General Adult General Chief complaint: Nausea/Vomiting/Diarrhea Stated complaint: abd pain,vomiting endoscopy this am. Time Seen by Provider: 02/18/25 18:51 History of Present Illness ED Provider: Dr. Lutz HPI narrative: 55 y/o patient; PMH achalasia, hx pancreatic mass, GERD, HLD, HTN; presents via EMS from home with report of 10 epigastric abdominal pain associated with NBNB nausea/vomiting. The patient reports planned endoscopy this morning for biopsy on pancreatic mass. Otherwise denies: fever or chills, SOB, cough/congestion, chest pain. Related Data Home Medications ?Medication ?Instructions ?Recorded ?Confirmed cabotegravir 600 mg/3 mL (200 600 mg IM [id number] 05/2602/09/25 mg/mL) IM suspension,extended release (Apretude) sucralfate 100 mg/mL oral 20 ml PO DAILY PRN ULCERS 02/09/25 suspension cholecalciferol (vitamin D3) 1,250 1,250 mcg PO Q2W 02/09/25 mcg (50,000 unit) capsule Previous Rx's ?Medication ?Instructions ?Recorded xsdkigcebp-olfvvlmqxgcml-[id number] 1 cap PO Q4-6H PRN h eadache #10 09/07/24 50 mg-300 mg-40 mg capsule caps (Fioricet) Oxygen Home Use #3 ea 09/24/24 naratriptan 2.5 mg tablet See Rx Instructions PO .COMP ABBEY 09/24/24 PRN migraine headache 30 days #12 tabs magnesium oxide 400 mg (241.3 mg 400 mg PO BEDTIME 30 days #30 tabs 09/25/24 magnesium) tablet galcanezumab-gnlm 300 mg/3 mL (100 300 mg (3 mL) subcu t QMONTH 30 12/27/24 mg/mL x 3) subcutaneous syringe days #3 mL (Emgality) famotidine 40 mg tablet (Pepcid) 40 mg PO BEDTIME #30 tabs 01/08/25 linaclotide 290 mcg capsule 290 mcg PO QAM 30 days #30 caps 01/08/25 (Linzess) ixrddx-bvcnoari-inylegw 2 cap PO BID 30 days #120 ca ps 01/08/25 3,000-9,500-15,000 unit capsule, delayed rel (Creon) bisacodyl 5 mg tablet,delayed 10 mg (2 x 5 mg) PO BEDT PAULA 30 01/28/25 release (Dulcolax (bisacodyl)) days #60 tabs morphine 15 mg immediate release 15 mg PO Q4H PRN pain #14 tabs 02/18/25 tablet Allergies Allergy/AdvReac Type Severity Reaction Status Date / Time black pepper Allergy Severe Anaphylaxis Verified 02/18/25 17:31 Penicillins (PENICILLINS) Allergy Intermediate HIVES,SWELL Verified 02/18/25 17:31 ING sumatriptan (SUMATRIPTAN) AdvReac Severe PT STATES Verified 02/18/25 17:31 HEART ATTACK Review of Systems 2 Review of Systems: Yes all other systems are reviewed and are negative [facility] Past Medical History Attestation statement: The following information was validated with the patient. Source: old records reviewed Medical History Upper abdominal pain Pancreatic mass Erosive esophagitis Abdominal pain Sleep difficulties Vomiting LEE (dyspnea on exertion) Arthritis Occipital neuralgia of left side New onset headache Diverticulosis of colon Chronic, continuous use of opioids Chronic GERD Palpitations Hypotension History of palpitations Dysphagia Disc degeneration, lumbar Spondylosis of lumbar spine Depression Past heart attack Hyperlipemia Erosive osteoarthritis of hands, bilateral GERD (gastroesophageal reflux disease) Hypertension Surgical History History of cholecystectomy Hx of colonoscopy History of esophagogastroduodenoscopy (EGD) H/O bilateral mastectomy H/O: hysterectomy Family History Family History Mother Hypertension Breast cancer Maternal Grandmother Myocardial infarct Skin cancer Sister Heart problem Breast cancer Family/Other Esophageal cancer Social History Social History Household Members: Family Housing: Apartment Are you a primary healthcare interpreter to a significant other at home: No Do you presently have visiting nurse or other home services: No Alcohol intake: never Patient Tobacco Use Status: Former Tobacco user Smoked in Last 30 Days: No Use of substances other than those prescribed or required for medical reasons: No Substance Use Type: Marijuana Advance Directives: No Advance Directives Information Provided: No Patient : No service: No Physical Exam ED Vital Signs: Vital Signs - 24 hr 02/18/25 17:23 02/18/25 18:15 02/18/25 18:17 Temperature 98.2 F Pulse Rate 51 50 Respiratory Rate 16 20 20 Blood Pressure 183/86 H 183/90 H Pulse Oximetry 100 Oxygen Delivery Method Room Air BMI result Body Mass Index 17.5 Patient is afebrile and hemodynamically stable Const General: cooperative HENMT Head: Yes normal to inspection and Yes atraumatic Eyes Pupils: Equal, round and reactive pupils present EOM: EOMs intact bilaterally Neck Neck: Yes normal visual inspection, Yes full ROM, Yes supple and No tender Chest Chest palpation & inspection: normal inspection of the chest and normal palpation of entire chest wall Resp Effort & Inspection: normal respiratory effort, able to speak in complete sentences and no cough Auscultation: clear to auscultation bilaterally Cardio Rate: regular rate Rhythm: regular rhythm Peripheral pulses: Peripheral pulses 2+ throughout GI Inspection: Yes normal to inspection, No Abdominal wall edema and No distended Palpation (GI): Soft to palpation, not firm, nontender, no guarding and not rigid Auscultation: normal bowel sounds Back/Spine/Pelvis Back: No back tenderness Neuro Cranial nerves: Yes Equal, round and reactive pupils present Course Course Course Narrative: Patient is afebrile and hemodynamically stable. Reviewed triage ordered labs and CT Abdomen/Pelvis. Had received symptom control prior to my assessment with Morphine 4mg IV, Reglan 10mg IV, and Benadryl 25mg IV. Labs with leukocytosis 17.9. No significant anemia. Total bilirubin 1.4, AST 1244, ALT 851, alk phos 190. Lipase is not elevated. These abnormalities are new compared to 01/27/2025. Given leukocytosis and new transaminitis following EGD with biopsy I did add on blood cultures x1 and LA. Has a history of PCN allergy so treated with Cefepime and Flagyl. CT consistent with 2.7 by 1.6cm mass near the head of the pancreas/uncinate process with severe dilation of the CBS (measuring 1.7cm and increased from 01/19 MRI) with portal mesenteric venous confluence compressed by mass but portal, mesenteric, splenic veins patent. GI consulted. Plan: Admit to hospitalist Condition: Stable Medications Administered Discontinued Medications Generic Name Dose Route Start Last Admin Trade Name Gamal PRN Reason Stop Dose Admin Diphenhydramine HCl 25 mg 02/18/25 18:05 02/18/25 18:15 Diphenhydramine Hcl 50 Mg/Ml Vial IVPUSH 02/18/25 18:06 25 mg ONCE ONE Administration Metronidazole 500 mg in 100 mls @ 100 mls/hr 02/18/25 20:03 02/18/25 20:55 Flagyl IV 02/18/25 21:02 100 mls/hr ONCE ONE Administration Cefepime HCl 2 gm in 50 mls @ 100 mls/hr 02/18/25 20:03 02/18/25 20:56 Maxipime IV 02/18/25 20:32 Infused ONCE ONE Infusion Iohexol 100 ml 02/18/25 19:54 02/18/25 19:54 Iohexol 350 Mg/Ml 100 Ml Infus..Btl IV 02/18/25 19:55 85 ml ONCE ONE Administration Metoclopramide HCl 10 mg 02/18/25 18:05 02/18/25 18:14 Metoclopramide Hcl 10 Mg/2 Ml Vial IVPUSH 02/18/25 18:06 10 mg ONCE ONE Administration Morphine Sulfate 4 mg 02/18/25 18:05 02/18/25 18:15 Morphine Sulfate 4 Mg/Ml Cartridge IVPUSH 02/18/25 18:06 4 mg ONCE ONE Administration Protocol Medical Decision Making Lab Data 02/18/25 18:14 02/18/25 18:14 Labs: Lab Results 02/18/25 02/18/25 Range/Units 18:14 20:25 WBC 17.9 H (4.8-10.8) X10*3/uL RBC 5.40 (4.20-5.50) X10*6/uL Hgb 15.7 (12.0-16.0) g/dl Hct 47.4 H (37.0-47.0) % MCV 87.8 (80.0-98.0) fL MCH 29.1 (27.0-33.0) pg MCHC 33.1 (31.0-35.0) g/dl RDW 14.3 (11.0-16.0) % Plt Count 374 (160-400) X10*3/uL MPV 8.9 L (9.4-12.3) fL Immature Gran % (Auto) 0.4 (0.0-0.4) % Neut % (Auto) 84.7 H (45-73) % Lymph % (Auto) 9.3 L (20-40) % [place] % (Auto) 5.2 (2-11) % Eos % (Auto) 0.1 (0-4) % Baso % (Auto) 0.3 (0-2) % Lymph # (Auto) 1.7 (1.2-4.9) X10*3/uL [place] # (Auto) 0.9 (0.1-1.2) X10*3/uL Eos # (Auto) 0.0 (0.0-0.4) X10*3/uL Baso # (Auto) 0.1 (0.0-0.2) X10*3/uL Abs Immat Gran (auto) 0.07 H (0.00-0.03) X10*3/uL Absolute Neuts (auto) 15.2 H (2.0-8.3) x10*3/uL Absolute Nucleated RBC 0.000 (0.0-0.012) X10*3/uL Nucleated RBC % (auto) 0.0 (0.0-0.2) /100WBC Sodium 140 (135-145) mmol/L Potassium 4.8 D (3.3-5.1) mmol/L Chloride 103 (96-108) mmol/L Carbon Dioxide 27 (22-29) mmol/L Anion Gap 15 (12-20) BUN 10 (9-16) mg/dL Creatinine 0.61 (0.5-1.4) mg/dL Estim Creat Clear Calc 77.5 Estimated GFR > 60 Random Glucose 152 H (60-115) mg/dL Lactic Acid 0.9 (0.5-2.0) mmol/L Calcium 9.9 D (8.4-10.2) mg/dL Total Bilirubin 1.4 H (0.0-1.0) mg/dL AST 1244 H (5-31) U/L ALT 851 H (0-31) U/L Alkaline Phosphatase 190 H (39-117) U/L Total Protein 8.4 H (6.5-8.0) g/dL Albumin 4.8 (3.5-5.0) g/dL Lipase 46 (8-78) U/L Radiology Impression Discussion of test interpretation with radiology: I have reviewed the radiologist's reading. Radiologist Impression: CLINICAL HISTORY: ad pain severe CT abdomen and pelvis with contrast Comparison: MR - MR ABDOMEN WO/W CON - 01/19/25 10:[address]/SR - CT ABDOMEN PELVIS WITH IV CONTRAST - 12/29/24 12:55 EDT Findings: The lung bases are clear. Calcified granuloma in the posterior right lower lobe. Status post cholecystectomy. Mild intrahepatic biliary tree dilation, more pronounced on the left, progressed from 12/29/2024 CT but accounting for differences in modality, essentially stable from 01/19/2025 MRI. The common bile duct is distended to 1.7 cm. It measured 1 cm on 01/19/2025 MRI. No radiopaque biliary stones are seen. As noted on MRI of the abdomen, there is a 2.7 x 1.6 cm mass near the head of the pancreas /uncinate processthat may be part of the pancreas or alternatively a peripancreatic lymph node (series 3, image 32). Pancreatic duct is not significantly dilated. The portal mesenteric venous confluence is compressed by the mass but the portal, mesenteric, and splenic veins are patent. Other solid organs are unremarkable. No bowel obstruction, pneumoperitoneum, or pneumatosis. Colonic diverticulosis without evidence of diverticulitis. Normal appendix. Urinary bladder is underdistended limiting evaluation. The uterus appears surgically absent. the bones are intact. IMPRESSION: 2.7 x 1.6 cm mass near the head of the pancreas/uncinate process that may be part of the pancreas or a large peripancreatic lymph node resulting in mild intrahepatic biliary tree dilation and severe dilation of the common bile duct, which measures 1.7 cm, increased from 01/19/2025 MRI. Again advise GI consultation for consideration of ERCP /EUS guided biopsy of pancreatic mass/peripancreatic lymph node. The portal mesenteric venous confluence is compressed by the mass but the portal, mesenteric, and splenic veins are patent. This document has been electronically signed by: Que Colon MD on 02/18/2025 21:22:17 Discharge Plan Discharge Clinical Impression: Nausea & vomiting, Pancreatic mass, Transaminitis, Leukocytosis Patient Disposition: Admitted As Inpatient Print Language: Ecuadorean
[2025-02-18] MEDS: iohexoL 350 MG/ML 100 ML INFUS..BTL IV (19:54)
[2025-02-18] MEDS: cefEPime HCl/D5W 2 GM/50 ML PIGGYBACK IV (20:32)
--- NOTE | 2025-02-18 20:37 | PC.NURSE ---
1st antibiotic hung after 1st set of blood cultures as pt was a difficult stick. second set of cultures collected immediately after. both sets sent down to lab. Pt grateful for use of butterfly needle.
[2025-02-18] MEDS: metroNIDAZOLE/NS 500 MG/100 ML PIGGYBACK 100 MG IV (20:55)
--- NOTE | 2025-02-18 22:27 | PHA.MEDREC ---
Addendum entered by Richard Conde, PharmD 02/18/25 22:53: MED REC CHECKED BY [facility] Original Note: Pharmacy Consult ? Medication Reconciliation Pharmacy has completed the medication reconciliation. Spoke to patient through educational interpreter service to confirm med list. Patient states she is no longer taking Fioricet, Nartriptan 2.5 mg and Sucralfate 100mg/ml. Patient confirmed Apretude 600 mg [id number], last dose 3 weeks ago, Vitamin D3 1,250 mcg every Saturday, hasn't had in a few weeks, Emgality 300 mg every month, last dose was a month ago. Patient last had her medications yesterday.
[2025-02-19] VITALS (9 sets, daily range): BP systolic 102–156; BP diastolic 52–97; PULSE 45–65; RESP 16–20; TEMP 36.3–37.2; O2SAT 96–99; BMI 17.6; BMI 17.2; BMI 17.7
--- NOTE | 2025-02-19 01:10 | PC.NURSE ---
pt ambulated to bathroom with syeady gate.
--- NOTE | 2025-02-19 02:16 | P.HPHOSP_ITS ---
History of Present Illness Date of Service: 02/19/25 Chief Complaint: Abd pain 55-year-old male with a past medical history of HTN, HLD, GERD, pancreatitis, pancreatic mass; presented to the hospital with a chief complaint of abdominal pain. Patient mentioned that he had biopsy done at [facility] yesterday and following he had severe pain in his abdomen subsequently came to the ER for further evaluation. Has had nausea and vomiting. Denies any signs of bleeding. Patient denies any chest pain or palpitations. Review of all other systems is negative except mentioned above ER course: For ER team, patient noted to have epigastric tenderness; lipase within normal limits; CT abdomen pelvis showed slightly increased pancreatic mass size with the intrahepatic and extrahepatic biliary ductal dilation; patient also noted to have elevated liver enzymes. ER team discussed with Dr. Mills from Gastroenterology who suggested admission to the hospital and pain control for now [facility] Medical History Upper abdominal pain Pancreatic mass Erosive esophagitis Abdominal pain Sleep difficulties Vomiting LEE (dyspnea on exertion) Arthritis Occipital neuralgia of left side New onset headache Diverticulosis of colon Chronic, continuous use of opioids Chronic GERD Palpitations Hypotension History of palpitations Dysphagia Disc degeneration, lumbar Spondylosis of lumbar spine Depression Past heart attack Hyperlipemia Erosive osteoarthritis of hands, bilateral GERD (gastroesophageal reflux disease) Hypertension Family History Mother Hypertension Breast cancer Maternal Grandmother Myocardial infarct Skin cancer Sister Heart problem Breast cancer Family/Other Esophageal cancer Surgical History History of cholecystectomy Hx of colonoscopy History of esophagogastroduodenoscopy (EGD) H/O bilateral mastectomy H/O: hysterectomy Social History Household Members: Family Housing: Apartment Are you a primary reproductive healthcare assistant to a significant other at home: No Do you presently have visiting nurse or other home services: No Alcohol intake: never Patient Tobacco Use Status: Former Tobacco user Smoked in Last 30 Days: No Use of substances other than those prescribed or required for medical reasons: No Substance Use Type: Marijuana Advance Directives: No Advance Directives Information Provided: No Nutrition Risks: No Nutritional Risk Patient : No service: No Meds Allergies Allergy/AdvReac Type Severity Reaction Status Date / Time black pepper Allergy Severe Anaphylaxis Verified 02/18/25 17:31 Penicillins (PENICILLINS) Allergy Intermediate HIVES,SWELL Verified 02/18/25 17:31 ING sumatriptan (SUMATRIPTAN) AdvReac Severe PT STATES Verified 02/18/25 17:31 HEART ATTACK Active Medications: Current Medications Acetaminophen (Acetaminophen 325 Mg Tablet) 650 mg PO Q6H PRN PRN Reason: Pain, Mild 1-3,fever,headache Calcium Carbonate (Calcium Carbonate 750 Mg Tab.Chew) 750 mg PO Q4H PRN PRN Reason: Heartburn Enoxaparin Sodium (Enoxaparin Sodium 40 Mg/0.4 Ml Syringe) 40 mg SUBCUT Q24H KARLI Hydromorphone HCl (Hydromorphone Hcl 0.5 Mg/0.5 Ml Syringe) 0.5 mg IVPUSH Q4H PRN; Protocol PRN Reason: Pain, Severe (Pain Scale 7-10) Dextrose/Sodium Chloride (D51/2ns) 1,000 mls @ 100 mls/hr IVCONT .Q10H KARLI Magnesium Hydroxide (Milk Of Magnesia 30 Ml Oral.Susp) 30 ml PO DAILY PRN PRN Reason: Constipation Melatonin (Melatonin 3 Mg Tablet) 6 mg PO BEDTIME PRN PRN Reason: Insomnia Sodium Chloride (0.9 % Sodium Chloride Flush 3 Ml Syringe) 3 ml IVFLUSH QSHIFT KARLI Home Medications ?Medication ?Instructions ?Recorded ?Confirmed ?Last Taken ?Type cabotegravir 600 mg/3 mL (200 600 mg IM [id number] 02/1802/18/25 02/04/25 History mg/mL) IM suspension,extended release (Apretude) cholecalciferol (vitamin D3) 1,250 1,250 mcg PO MO 02/0402/18/25 Unknown History mcg (50,000 unit) capsule linaclotide 290 mcg capsule 290 mcg PO DAILY 02/18/25 02/18/25 02/17/25 History (Linzess) ndrigq-kpzqaktz-fnknime 2 cap PO BID 02/18/2502/17/25 History 3,000-9,500-15,000 unit capsule, delayed rel (Creon) Physical Exam 2 Vital Signs and Narrative: Vital Signs: Last Vital Signs Temp 98.2 F 02/18/25 17:23 Pulse 50 02/18/25 18:17 Resp 20 02/18/25 18:17 BP 183/90 H 02/18/25 18:17 Pulse Ox 100 02/18/25 17:23 O2 Del Method Room Air 02/18/25 17:23 BMI result Body Mass Index 17.5 Gen: Appears be in no acute distress HEENT: NCAT, Moist mucosa. Pulmonary: Vesicular breath sounds, fair air entry CVS: Normal S1-S2 Abdomen: BS+, Soft, Nontender Extremities: Warm well perfused Neuro: Alert and awake. Results Labs 02/19/25 05:44 02/19/25 05:44 Labs: Laboratory Results - last 24 hr 02/18/25 02/18/25 18:14 20:25 MCV 87.8 MCH 29.1 MCHC 33.1 RDW 14.3 Plt Count 374 MPV 8.9 L Immature Gran % (Auto) 0.4 Neut % (Auto) 84.7 H Lymph % (Auto) 9.3 L Edmunds % (Auto) 5.2 Eos % (Auto) 0.1 Baso % (Auto) 0.3 Lymph # (Auto) 1.7 Edmunds # (Auto) 0.9 Eos # (Auto) 0.0 Baso # (Auto) 0.1 Abs Immat Gran (auto) 0.07 H Absolute Neuts (auto) 15.2 H Absolute Nucleated RBC 0.000 Nucleated RBC % (auto) 0.0 Anion Gap 15 Estim Creat Clear Calc 77.5 Estimated GFR > 60 Random Glucose 152 H Lactic Acid 0.9 Calcium 9.9 D Total Bilirubin 1.4 H AST 1244 H ALT 851 H Alkaline Phosphatase 190 H Total Protein 8.4 H Albumin 4.8 Lipase 46 Assessment and Plan (1) Upper abdominal pain: Status: Acute Plan 55-year-old male with a past medical history of HTN, HLD, GERD, pancreatitis, pancreatic mass; presented to the hospital with a chief complaint of abdominal pain. Abdominal pain: Pancreatic mass: Status post ERCP: Transaminitis: Dilated biliary ducts: Patient is status post ERCP at [facility] yesterday. Will defer to day team to obtain records from the [facility]. Patient developed pain post ERCP. Pain control NPO Gentle IV fluids Gastroenterology consult was notified Trend liver enzymes Patient received empiric antibiotics in the ER. Leukocytosis likely reactive. Follow fever curve. Low threshold to continue antibiotics. Pancreatic mass: Patient found to have pancreatic mass measuring 1.6 mm in January 2025. At that time patient had an episode of pancreatitis. Patient follow with Dr. Orozco as outpatient and the has had ERCP done for tissue biopsy at [facility]. CA 19 9 elevated Oncology follow-up Med reconciliation: Will defer to pharmacy in a.m.. Quality Stroke Does the patient have a stroke diagnosis?: No VTE Prior VTE?: No VTE Risk Level:: Medical - moderate - high VTE Device Contraindication: Treatment Not Indicated VTE Drug Contraindication: N/A - Med Ordered
[2025-02-19] MEDS: Dextrose 5 % and 0.45 % NaCl 1,000 ML 100 ML IVCONT ×2 (02:42→13:32)
--- NOTE | 2025-02-19 02:46 | PC.NURSE ---
pt resting in bed, denies pain right now. Medicated per JUL.
[2025-02-19 05:52] LABS: Hematocrit 41.3 % (37.0-47.0); Hemoglobin 13.9 g/dl (12.0-16.0); Imm Gran Abs Auto 0.05 X10*3/uL (0.00-0.03); Imm Gran Pct Auto 0.4 % (0.0-0.4); Lymphocytes Absolute Auto 2.7 X10*3/uL (1.2-4.9); MANUAL DIFF FLAG NO; Mean Corpuscular HGB Conc 33.7 g/dl (31.0-35.0); Mean Corpuscular Hemoglobin 29.4 pg (27.0-33.0); Mean Corpuscular Volume 87.5 fL (80.0-98.0); NRBC Abs Auto 0.000 X10*3/uL (0.0-0.012); NRBC Pct Auto 0.0 /100WBC (0.0-0.2); Platelet Count 325 X10*3/uL (160-400); Red Blood Count 4.72 X10*6/uL (4.20-5.50); White Blood Count 13.0 X10*3/uL (4.8-10.8)
[2025-02-19 06:12] LABS: Anion Gap 10 (12-20); Blood Urea Nitrogen 8 mg/dL (9-16); Calcium 9.1 mg/dL (8.4-10.2); Carbon Dioxide 29 mmol/L (22-29); Chloride 106 mmol/L (96-108); Creatinine Clr Calc Pharmacy 75.1; Estimated Glomerular Filt Rate > 60; Potassium 4.5 mmol/L (3.3-5.1); Sodium 140 mmol/L (135-145)
--- NOTE | 2025-02-19 09:50 | MHC.CM.PN ---
Patient's preferred name is Deloris. CM met with Patient at bedside, with the assist of a [facility]. 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 Home/self care is Patient's goal and CM has initiated and will follow for dc planning. PCP is Dr. Emilie Davis and Patient will arrange his own transport to home at dc. Patient did not request to complete a HCP.
--- NOTE | 2025-02-19 12:15 | MHC.CLN ---
CONSULT PT IS MODERATELY MALNOURISHED-QUALIFIES FOR NON-SEVERE MALNUTRITION IN CONTEXT OF ACUTE ILLNESS PT WITH CHRONIC POOR PO INTAKE R/T ACUTE ILLNESS HX PANCREATITIS AND ESOPHAGITIS IN ADDITION TO NONSIGNIFICANT WT LOSS X6 MONTHS AND MILDLY DEPLETED SUBCUTANEOUS FAT AND MUSCLE MASS WITH LOW BMI. 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
[2025-02-19] MEDS: 0.9 % Sodium Chloride Flush 3 ML SYRINGE IVFLUSH ×2 (13:35→23:27)
--- NOTE | 2025-02-19 13:39 | P.CNGI_ITS ---
History of Present Illness Data of Consult Service Date: 02/19/25 Requesting physician: Arnoldo Gerardo Primary Care Provider: Emilie Davis MD [facility] Reason for consult: abd pain, elevated LFTs This is a 54-year-old female -> male (preferred pronouns he/him), who presented to the hospital yesterday for severe abd pain with nausea and vomiting after EUS guided pancreatic mass biopsy 02/18 (Dr. Deutsch - [facility]). Patient Pt seen with the help of hourly sign language interpreter. Pt was seen by [facility] on 02/18 for EGD with esophageal stricture dilation (18 mm to 19.5 mm) and EUS: 2.2 x 2.9 cm panc head mass with infiltration of CBD and mass effect on IVC but no invasion. No evidence of locoregional spread. Path pending. 4-6 hours after the procedure, patient developed severe abdominal pain that radiated to his back with nausea and vomiting. Pain was severe that he could not even get up from the bed. Unable to tolerate anything by mouth. He therefore called the EMS to be transported to the hospital. No fevers, chills, in the emergency room, he was noted to have mild hypertension. Labs with white count of 18,000, stable H&H, Chem 7 with elevated LFTs, AST 1200, ALT 851, normal bilirubin. Both of these have trended down today. Lipase was normal. Patient was started on empiric Zosyn. On bedside assessment today, he reports significant improvement in pain. No nausea or vomiting. Appetite is back. Has been passing reasonable urine output. CT imaging without any signs of perf. Panc head mass with double duct sign noted. Review of Systems 2 Review of Systems: Yes all other systems are reviewed and are negative [facility] Past Medical History Medical History Upper abdominal pain Pancreatic mass Erosive esophagitis Abdominal pain Sleep difficulties Vomiting LEE (dyspnea on exertion) Arthritis Occipital neuralgia of left side New onset headache Diverticulosis of colon Chronic, continuous use of opioids Chronic GERD Palpitations Hypotension History of palpitations Dysphagia Disc degeneration, lumbar Spondylosis of lumbar spine Depression Past heart attack Hyperlipemia Erosive osteoarthritis of hands, bilateral GERD (gastroesophageal reflux disease) Hypertension Family History Family History Mother Hypertension Breast cancer Maternal Grandmother Myocardial infarct Skin cancer Sister Heart problem Breast cancer Family/Other Esophageal cancer Surgical History Surgical History History of cholecystectomy Hx of colonoscopy History of esophagogastroduodenoscopy (EGD) H/O bilateral mastectomy H/O: hysterectomy Social History Social History Household Members: Family Housing: Apartment Are you a primary director of career services to a significant other at home: No Do you presently have visiting nurse or other home services: No Alcohol intake: never Patient Tobacco Use Status: Former Tobacco user Substance Use Type: Marijuana service: No Meds Allergies Allergy/AdvReac Type Severity Reaction Status Date / Time black pepper Allergy Severe Anaphylaxis Verified 02/18/25 17:31 Penicillins (PENICILLINS) Allergy Intermediate HIVES,SWELL Verified 02/18/25 17:31 ING sumatriptan (SUMATRIPTAN) AdvReac Severe PT STATES Verified 02/18/25 17:31 HEART ATTACK Active Medications: Current Medications Acetaminophen (Acetaminophen 325 Mg Tablet) 650 mg PO Q6H PRN PRN Reason: Pain, Mild 1-3,fever,headache Bisacodyl (Bisacodyl 5 Mg Tablet.Dr) 10 mg PO BEDTIME JODY Calcium Carbonate (Calcium Carbonate 750 Mg Tab.Chew) 750 mg PO Q4H PRN PRN Reason: Heartburn Enoxaparin Sodium (Enoxaparin Sodium 40 Mg/0.4 Ml Syringe) 40 mg SUBCUT Q24H JODY Last Admin: 02/19/25 02:41 Dose: 40 mg Famotidine (Famotidine 20 Mg Tablet) 40 mg PO BEDTIME JODY Hydromorphone HCl (Hydromorphone Hcl 0.5 Mg/0.5 Ml Syringe) 0.5 mg IVPUSH Q4H PRN; Protocol PRN Reason: Pain, Severe (Pain Scale 7-10) Last Admin: 02/19/25 13:35 Dose: 0.5 mg Dextrose/Sodium Chloride (D51/2ns) 1,000 mls @ 100 mls/hr IVCONT .Q10H JODY Last Admin: 02/19/25 13:32 Dose: 100 mls/hr Magnesium Hydroxide (Milk Of Magnesia 30 Ml Oral.Susp) 30 ml PO DAILY PRN PRN Reason: Constipation Magnesium Oxide (Magnesium Oxide 400 Mg Tablet) 400 mg PO BEDTIME JODY Melatonin (Melatonin 3 Mg Tablet) 6 mg PO BEDTIME PRN PRN Reason: Insomnia Morphine Sulfate (Morphine Sulfate Immed Release 15 Mg Tablet) 15 mg PO Q4H PRN PRN Reason: Pain, Moderate(Pain Scale 4-6) Non-Formulary Medication (Cholecalciferol (Vitamin D3)) 1,250 mcg PO MO JODY Non-Formulary Medication (Linaclotide [Linzess]) 290 mcg PO DAILY JODY Non-Formulary Medication (Mqujcz-Uheydcnv-Maoydfi (Pork) [Creon]) 2 cap PO BID JODY Sodium Chloride (0.9 % Sodium Chloride Flush 3 Ml Syringe) 3 ml IVFLUSH QSHIFT [facility] Last Admin: 02/19/25 13:35 Dose: 3 ml Home Medications ?Medication ?Instructions ?Recorded ?Confirmed ?Last Taken ?Type cabotegravir 600 mg/3 mL (200 600 mg IM [id number] 02/1802/18/25 02/04/25 History mg/mL) IM suspension,extended release (Apretude) cholecalciferol (vitamin D3) 1,250 1,250 mcg PO MO 02/0402/18/25 Unknown History mcg (50,000 unit) capsule linaclotide 290 mcg capsule 290 mcg PO DAILY 02/18/25 02/18/25 02/17/25 History (Linzess) bfjvtr-vtoartvk-qxcoycy (pork) 2 cap PO BID 02/18/25 1 02/17/25 History 3,000-9,500-15,000 unit capsule,del rel (Creon) Physical Exam 2 Exam: Exam: No acute distress Nonicteric Under nourished Abdomen soft, mildly tender, nondistended, no guarding No overt respiratory distress No lower extremity edema Vital Signs: Vital Signs: Last Vital Signs Temp 98.7 F 02/19/25 11:02 Pulse 55 02/19/25 11:02 Resp 20 02/19/25 11:02 BP 147/69 H 02/19/25 11:02 Pulse Ox 99 02/19/25 11:02 O2 Del Method Room Air 02/19/25 11:02 BMI result Body Mass Index 17.7 Results Labs 02/19/25 05:44 02/19/25 05:44 Labs: Short CBC 02/18/25 02/19/25 Range/Units 18:14 05:44 WBC 17.9 H 13.0 H (4.8-10.8) X10*3/uL Hgb 15.7 13.9 (12.0-16.0) g/dl Hct 47.4 H 41.3 (37.0-47.0) % Plt Count 374 325 (160-400) X10*3/uL BMP 02/18/25 02/19/25 18:14 05:44 Sodium 140 140 Potassium 4.8 D 4.5 Chloride 103 106 Carbon Dioxide 27 29 BUN 10 8 L Creatinine 0.61 0.63 Calcium 9.9 D 9.1 D Liver Function 02/18/25 Range/Units 18:14 Total Bilirubin 1.4 H (0.0-1.0) mg/dL AST 1244 H (5-31) U/L ALT 851 H (0-31) U/L Alkaline Phosphatase 190 H (39-117) U/L Albumin 4.8 (3.5-5.0) g/dL Assessment and Plan (1) Nausea & vomiting: Status: Acute (2) Pancreatic mass: Status: Acute (3) Elevated LFTs: Status: Acute Plan Patient with post procedure abdominal pain, nausea and vomiting. This has now improved, without any further nausea and vomiting. Patient is eager to eat. In terms of LFTs, panc mass with known CBD infiltration. No obstruction based on current labs but will likely need ERCP for stent placement and biliary drainage in the near future. Plan: - Ok to advance diet - Abx can be switched to PO cipro+ flagyl; or levaquin and completed x 5 days - Pain management with tylenol 675 TID jody x 2-3 days. OK to give tramadol or oxy short term for break through pain in the next 2-3 days - LFTs to be monitored as outpatient as pt at risk of biliary obstruction - Path results from [facility] pending Thank you for allowing me to participate in his care. Please do not hesitate to reach out for any questions or concerns. Procedures Date of Service Date of Service: 02/19/25
--- NOTE | 2025-02-19 14:01 | P.CNHO_ITS ---
Subjective - Subjective Chief complaint: Pancreatic mass worrisome for malignancy Patient: new to practice Consult date: 02/19/25 Primary Care Provider: Emilie Davis MD Data Processing Systems Consultant Utilized?: Yes - Contact Lens Polisher HPI - Consult Narrative Reason for consult: Probable malignancy Narrative: Harriet Roberson is a 55 year old male, transitioning from female with multiple medical problems including migraines, esophogeal and pyloric stenosis, chronic gastritis, GERD, who is admitted for abdominal discomfort and elevated transaminases after undergoing endoscopy and biopsy at [facility] on 02/18/2025. Patient has been undergoing GI evaluation since May 2024 for complaints of acid reflux. Her previous EGD/colonoscopy was in 2018. He has had chronic problems with dysphagia and undergone previous dilatation of pylorus and esophagus. Last EGD was performed by Dr. Mayorga on 01/15/2025. Patient had MRI abdomen on 01/2025 for acute pancreatitis. This revealed hypoenhancing solid mass measuring 2.5 x 2.7 cm in the pancreatic head/uncinate process which was compressing the distal CBD and causing moderate to severe stenosis. Upstream extrahepatic and intrahepatic ducts were mildly dilated. Status post cholecystectomy. This was read as concerning for malignancy. ERCP and tissue sampling was recommended. Patient underwent endoscopic ultrasound and biopsy of this mass at [facility] on 02/18/2025. She presents today with complaints of epigastric discomfort, nausea and vomiting. Blood work showed acute elevation in transaminases. LDH is elevated at 743. Lipase is normal. CA 19-9 elevated at 671 units/mL on 02/01/2025. No history of excessive weight loss. No history of jaundice, change in bowel habits. She is chronically constipated. She does not consume alcohol or smoke. She was diagnosed with hepatitis-A has a kit. Hepatitis-C antibody positive, viral load not detected in 2023 in 2024. Negative for HIV. Review of Systems - Constitutional Reports as per HPI, Reports fatigue, Reports malaise, Reports poor appetite - Cardiovascular Reports no additional cardiovascular complaints - Respiratory Reports no additional respiratory complaints - Gastrointestinal Reports no additional gastrointestinal complaints [facility] Medical History: Medical History (Last Reviewed 02/19/25 @ 10:09 by Amanda Hamilton RN) Abdominal pain Arthritis Chronic GERD Chronic, continuous use of opioids Depression Disc degeneration, lumbar Diverticulosis of colon LEE (dyspnea on exertion) Dysphagia Erosive esophagitis Erosive osteoarthritis of hands, bilateral GERD (gastroesophageal reflux disease) History of palpitations Hyperlipemia Hypertension Hypotension New onset headache Occipital neuralgia of left side Palpitations Pancreatic mass Past heart attack Sleep difficulties Spondylosis of lumbar spine Upper abdominal pain Vomiting Family History: Family History (Last Reviewed 02/19/25 @ 10:09 by Amanda Hamilton RN) Mother Hypertension Breast cancer Maternal Grandmother Myocardial infarct Skin cancer Sister Heart problem Breast cancer Family/Other Esophageal cancer Surgical History: Surgical History (Last Reviewed 02/19/25 @ 10:09 by Amanda Hamilton RN) H/O bilateral mastectomy H/O: hysterectomy History of cholecystectomy History of esophagogastroduodenoscopy (EGD) Hx of colonoscopy Social History: Social History (Last Reviewed 02/19/25 @ 10:09 by Amanda Hamilton RN) Living Situation History: Household Members: Family Housing: Apartment Are you a primary cattle care worker to a significant other at home: No Do you presently have visiting nurse or other home services: No Alcohol History Details: 1. How often do you have a drink containing alcohol?: a. Never AUDIT-C Alcohol total score: 0 Currently Displaying Signs/Symptoms of Alcohol Withdrawal: No Tobacco History: Patient Tobacco Use Status: Former Tobacco user Smoked in Last 30 Days: No Substance Use History: Use of substances other than those prescribed or required for medical reasons : No Substance Use Type: Marijuana Currently Displaying Signs/Symptoms of Drug Intoxication Withdrawal: No Domestic Abuse History: Have you been hit, kicked, punched, or otherwise hurt by someone within the past year? If so, by whom?: No Do you feel safe in your current relationship?: Yes Is there a partner from a previous relationship who is making you feel unsafe now?: No Are you made to feel afraid or neglected: No Advance Directives: Advance Directives: No Advance Directives Information Provided: No Advance Directives on File: No Homicidal Assessment: Do you have a plan to hurt others: No Plan Nutrition Assessment: Recently lost weight without trying: Unsure How much weight loss: Unsure Eating poorly because of decreased appetite: No Nutrition screen score: 4 Nutrition Risks: No Nutritional Risk Patient : No Occupation Assessmet: service: No Home Medications and Allergies Current Medications: Current Medications Acetaminophen (Acetaminophen 325 Mg Tablet) 650 mg PO Q6H PRN PRN Reason: Pain, Mild 1-3,fever,headache Bisacodyl (Bisacodyl 5 Mg Tablet.Dr) 10 mg PO BEDTIME [facility] Calcium Carbonate (Calcium Carbonate 750 Mg Tab.Chew) 750 mg PO Q4H PRN PRN Reason: Heartburn Enoxaparin Sodium (Enoxaparin Sodium 40 Mg/0.4 Ml Syringe) 40 mg SUBCUT Q24H [facility] Last Admin: 02/19/25 02:41 Dose: 40 mg Famotidine (Famotidine 20 Mg Tablet) 40 mg PO BEDTIME KAR[facility] Hydromorphone HCl (Hydromorphone Hcl 0.5 Mg/0.5 Ml Syringe) 0.5 mg IVPUSH Q4H PRN; Protocol PRN Reason: Pain, Severe (Pain Scale 7-10) Last Admin: 02/19/25 13:35 Dose: 0.5 mg Dextrose/Sodium Chloride (D51/2ns) 1,000 mls @ 100 mls/hr IVCONT .Q10H [facility] Last Admin: 02/19/25 13:32 Dose: 100 mls/hr Magnesium Hydroxide (Milk Of Magnesia 30 Ml Oral.Susp) 30 ml PO DAILY PRN PRN Reason: Constipation Magnesium Oxide (Magnesium Oxide 400 Mg Tablet) 400 mg PO BEDTIME KARLI Melatonin (Melatonin 3 Mg Tablet) 6 mg PO BEDTIME PRN PRN Reason: Insomnia Morphine Sulfate (Morphine Sulfate Immed Release 15 Mg Tablet) 15 mg PO Q4H PRN PRN Reason: Pain, Moderate(Pain Scale 4-6) Non-Formulary Medication (Cholecalciferol (Vitamin D3)) 1,250 mcg PO MO [facility] Non-Formulary Medication (Linaclotide [Linzess]) 290 mcg PO DAILY [facility] Non-Formulary Medication (Yxtxau-Vodekoxp-Nmbxmdb (Pork) [Creon]) 2 cap PO BID [facility] Sodium Chloride (0.9 % Sodium Chloride Flush 3 Ml Syringe) 3 ml IVFLUSH QSHIFT [facility] Last Admin: 02/19/25 13:35 Dose: 3 ml Home Medications ?Medication ?Instructions ?Recorded ?Confirmed ?Type cabotegravir 600 mg/3 mL (200 600 mg IM [id number] 02/18/25 02/18/25 His tory mg/mL) IM suspension,extended release (Apretude) cholecalciferol (vitamin D3) 1,250 1,250 mcg PO MO 02/18/25 02/18/25 Histor y mcg (50,000 unit) capsule linaclotide 290 mcg capsule 290 mcg PO DAILY 02/18/25 02/18/25 Histo ry (Linzess) tmugtm-cojolqlv-cthqunm (pork) 2 cap PO BID 02/18/25 02/18/25 History 3,000-9,500-15,000 unit capsule,del rel (Creon) Allergies Allergy/AdvReac Type Severity Reaction Status Date / Time black pepper Allergy Severe Anaphylaxis Verified 02/18/25 17:31 Penicillins (PENICILLINS) Allergy Intermediate HIVES,SWELL Verified 02/18/25 17:31 ING sumatriptan (SUMATRIPTAN) AdvReac Severe PT STATES Verified 02/18/25 17:31 HEART ATTACK Physical Exam Vital signs: Vital Signs Temp 98.7 F 02/19/25 11:02 Pulse 55 02/19/25 11:02 Resp 20 02/19/25 11:02 BP 147/69 H 02/19/25 11:02 Pulse Ox 99 02/19/25 11:02 O2 Del Method Room Air 02/19/25 11:02 Intake & Output 02/18/25 02/19/25 02/19/25 18:59 06:59 18:59 Intake Total 150 / 150 1000 / 1000 Balance 150 / 150 1000 / 1000 Intake: Intake, IV Amount 150 / 150 1000 / 1000 cefEPime HCl/D5W 2 gm In 50 ml 50 / 50 @ 100 mls/hr IV ONCE ONE Rx#: [id number] metroNIDAZOLE/NS 500 mg In 100 100 / 100 ml @ 100 mls/hr IV ONCE ONE Rx# :[id number] Dextrose 5 % and 0.45 % NaCl 1, 1000 / 1000 000 ml @ 100 mls/hr IVCONT . Q10H [facility] Rx#:[id number] Other: Weight 47.7 kg 46.9 kg Weight in Grams 10549 Weight 46.9 kg - Constitutional Present: no acute distress - Routine HEENT Exam Head: Present: normal inspection Eye: Present: EOMI - Routine Neck Exam Present: supple. Absent: lymphadenopathy - Routine Respiratory Exam Present: CTAB. Absent: accessory muscle use - Routine Cardiovascular Exam Cardiovascular: Present: S1, S2 - Routine Abdominal Exam Present: soft - Routine Extremities Exam Present: pulses intact Hem/Onc Consult Result - Labs CBC & Chem 7: 02/19/25 05:44 02/19/25 05:44 Labs: Short CBC 02/18/25 02/19/25 Range/Units 18:14 05:44 WBC 17.9 H 13.0 H (4.8-10.8) X10*3/uL Hgb 15.7 13.9 (12.0-16.0) g/dl Hct 47.4 H 41.3 (37.0-47.0) % Plt Count 374 325 (160-400) X10*3/uL BMP 02/18/25 02/19/25 18:14 05:44 Sodium 140 140 Potassium 4.8 D 4.5 Chloride 103 106 Carbon Dioxide 27 29 BUN 10 8 L Creatinine 0.61 0.63 Calcium 9.9 D 9.1 D Liver Function 02/18/25 Range/Units 18:14 Total Bilirubin 1.4 H (0.0-1.0) mg/dL AST 1244 H (5-31) U/L ALT 851 H (0-31) U/L Alkaline Phosphatase 190 H (39-117) U/L Albumin 4.8 (3.5-5.0) g/dL Assessment and Plan Patient Active problem list reviewed?: Yes (1) Pancreatic mass Status: Acute Assessment and plan: 1. This is a 55-year-old male (transitioning) with chronic dysphagia, abdominal pain who has been diagnosed with pancreatic mass. CA 19 9 is elevated. MRI abdomen on 01/2025 for acute pancreatitis. This revealed hypoenhancing solid mass measuring 2.5 x 2.7 cm in the pancreatic head/uncinate process which was compressing the distal CBD and causing moderate to severe stenosis. Upstream extrahepatic and intrahepatic ducts were mildly dilated. Status post cholecystectomy. This was read as concerning for malignancy. ERCP and tissue sampling was recommended. Patient underwent endoscopic ultrasound and biopsy of this mass at [facility] on 02/18/2025. She presents today with complaints of epigastric discomfort, nausea and vomiting. Blood work showed acute elevation in transaminases. He had another CT abdomen/pelvis with contrast on 02/18/2025 which shows 2.7 x 1.6 cm mass near the head of pancreas/uncinate process that may be part of pancreas or a large peripancreatic lymph node resulting in mild intrahepatic biliary tree dilatation and severe dilatation of the common bile duct which measures 1.7 cm. Patient came in because of abdominal pain/nausea and emesis after procedure at [facility] yesterday. He is feeling much better now with antiemetics and pain management. I discussed that we have to wait for biopsy to make further recommendations. If liver enzymes improve, patient can be discharged and follow up with oncology as outpatient. Thank you for the consultation. - Time Spent With Patient Time Spent with Patient (in minutes): 25 Additional Coding: - Additional E/M codes Complex E/M visit Add On: CPT G2211
[2025-02-19 14:37] LABS: Alanine Aminotransferase 910 U/L (0-31); Albumin Level 3.8 g/dL (3.5-5.0); Alkaline Phosphatase 164 U/L (39-117); Aspartate Amino Transferase 664 U/L (5-31); Total Protein 6.7 g/dL (6.5-8.0)
--- NOTE | 2025-02-19 16:11 | HO.PM.IMPN ---
Subjective Subjective Date of Service: 02/19/25 Interval History: Nausea and abdominal pain better controlled Has been able to tolerate some liquids Overall feels better than at presentation Review of Systems Review of Systems: Yes all other systems are reviewed and are negative Physical Exam Exam: Exam: General: AOx3, no acute distress. Appears thin, slightly cachectic Resp: CTA bilaterally CVS: S1, S2, RRR GI: +BS, no distention, central abd tenderness Skin: Warm, dry Neuro: Cranial nerves II-XII grossly intact bilaterally. Motor grossly intact bilaterally Extremities: No edema Psych: Appropriate affect Vital Signs: Vital Signs: Last Vital Signs Temp 97.4 F 02/19/25 15:45 Pulse 52 02/19/25 15:45 Resp 20 02/19/25 15:45 BP 103/56 L 02/19/25 15:45 Pulse Ox 99 02/19/25 15:45 O2 Del Method Room Air 02/19/25 15:45 BMI result Body Mass Index 17.7 Objective Data Active Medications Acetaminophen (Acetaminophen 325 Mg Tablet) 650 mg PO Q6H PRN PRN Reason: Pain, Mild 1-3,fever,headache Bisacodyl (Bisacodyl 5 Mg Tablet.Dr) 10 mg PO BEDTIME [facility] Calcium Carbonate (Calcium Carbonate 750 Mg Tab.Chew) 750 mg PO Q4H PRN PRN Reason: Heartburn Enoxaparin Sodium (Enoxaparin Sodium 40 Mg/0.4 Ml Syringe) 40 mg SUBCUT Q24H [facility] Last Admin: 02/19/25 02:41 Dose: 40 mg Documented By: TEE Famotidine (Famotidine 20 Mg Tablet) 40 mg PO BEDTIME [facility] Hydromorphone HCl (Hydromorphone Hcl 0.5 Mg/0.5 Ml Syringe) 0.5 mg IVPUSH Q4H PRN; Protocol PRN Reason: Pain, Severe (Pain Scale 7-10) Last Admin: 02/19/25 13:35 Dose: 0.5 mg Documented By: JOSESITO Dextrose/Sodium Chloride (D51/2ns) 1,000 mls @ 100 mls/hr IVCONT .Q10H [facility] Last Admin: 02/19/25 13:32 Dose: 100 mls/hr Documented By: JOSESITO Magnesium Hydroxide (Milk Of Magnesia 30 Ml Oral.Susp) 30 ml PO DAILY PRN PRN Reason: Constipation Magnesium Oxide (Magnesium Oxide 400 Mg Tablet) 400 mg PO BEDTIME [facility] Melatonin (Melatonin 3 Mg Tablet) 6 mg PO BEDTIME PRN PRN Reason: Insomnia Morphine Sulfate (Morphine Sulfate Immed Release 15 Mg Tablet) 15 mg PO Q4H PRN PRN Reason: Pain, Moderate(Pain Scale 4-6) Non-Formulary Medication (Cholecalciferol (Vitamin D3)) 1,250 mcg PO MO [facility] Non-Formulary Medication (Linaclotide [Linzess]) 290 mcg PO DAILY [facility] Non-Formulary Medication (Laepqx-Middirwq-Ehyqzlh (Pork) [Creon]) 2 cap PO BID [facility] Sodium Chloride (0.9 % Sodium Chloride Flush 3 Ml Syringe) 3 ml IVFLUSH QSHIFT [facility] Last Admin: 02/19/25 13:35 Dose: 3 ml Documented By: JOSESITO Labs 02/19/25 05:44 02/19/25 05:44 Labs: Laboratory Results - last 24 hr 02/18/25 02/18/25 02/19/25 18:14 20:25 05:44 MCV 87.8 87.5 MCH 29.1 29.4 MCHC 33.1 33.7 RDW 14.3 14.2 Plt Count 374 325 MPV 8.9 L 8.8 L Immature Gran % (Auto) 0.4 0.4 Neut % (Auto) 84.7 H 73.2 H Lymph % (Auto) 9.3 L 21.0 [place] % (Auto) 5.2 4.7 Eos % (Auto) 0.1 0.5 Baso % (Auto) 0.3 0.2 Lymph # (Auto) 1.7 2.7 [place] # (Auto) 0.9 0.6 Eos # (Auto) 0.0 0.1 Baso # (Auto) 0.1 0.0 Abs Immat Gran (auto) 0.07 H 0.05 H Absolute Neuts (auto) 15.2 H 9.5 H Absolute Nucleated RBC 0.000 0.000 Nucleated RBC % (auto) 0.0 0.0 Anion Gap 15 10 L Estim Creat Clear Calc 77.5 75.1 Estimated GFR > 60 > 60 Random Glucose 152 H 107 Lactic Acid 0.9 Calcium 9.9 D 9.1 D Total Bilirubin 1.4 H 0.8 Direct Bilirubin 0.3 AST 1244 H 664 H ALT 851 H 910 H Alkaline Phosphatase 190 H 164 H Total Protein 8.4 H 6.7 Albumin 4.8 3.8 Lipase 46 Assessment and Plan (1) Transaminitis: Status: Acute (2) Intractable abdominal pain: Status: Acute Plan 55-year-old male with a past medical history of HTN, HLD, GERD, pancreatitis, pancreatic mass; presented to the hospital with a chief complaint of abdominal pain. Intractable abdominal pain with N/V and transaminitis Pt developed pain post ERCP with pancrease biopsy at [facility] on 02/18 CT of abdomen/pelvis redemonstrated pancreatic mass with intrahepatic biliary tree dilation and severe dilation of CBD, increased from MRI of 01/19/2025 Initial LFTs with T bili 1.4, AST 1244, ALT 851, alk-phos 190; repeat with T bili WNL, AST 664, ALT 19, alk-phos 164 Pain control Low-fat diet Continue IV fluids for now until has sufficient po intake GI consult, recommend cefuroxime and metronidazole x5 days Trend liver enzymes Pancreatic mass: Patient found to have pancreatic mass measuring 1.6 mm in January 2025. At that time patient had an episode of pancreatitis. Patient follow with Aida Orozco as outpatient and the has had ERCP done for tissue biopsy at [facility]. CA 19 9 elevated Oncology follow-up Pt requires continued hospitalization for pain and nausea control, as well as trending LFTs. If pt is able to tolerate sufficient p.o. intake and LFTs continued to trend down, pt will be able to be discharged tomorrow. Quality Stroke Does the patient have a stroke diagnosis?: No VTE Prior VTE?: No VTE Risk Level:: Medical - moderate - high VTE Device Contraindication: Treatment Not Indicated VTE Drug Contraindication: N/A - Med Ordered
[2025-02-20] MEDS: Dextrose 5 % and 0.45 % NaCl 1,000 ML 100 ML IVCONT ×3 (00:27→18:18)
[2025-02-20 08:00] VITALS: BP 131/74; PULSE 59; RESP 18; TEMP 36.7; O2SAT 97
[2025-02-20 08:16] LABS: Hematocrit 44.3 % (37.0-47.0); Hemoglobin 14.7 g/dl (12.0-16.0); Mean Corpuscular HGB Conc 33.2 g/dl (31.0-35.0); Mean Corpuscular Hemoglobin 29.2 pg (27.0-33.0); Mean Corpuscular Volume 88.1 fL (80.0-98.0); NRBC Abs Auto 0.000 X10*3/uL (0.0-0.012); NRBC Pct Auto 0.0 /100WBC (0.0-0.2); Platelet Count 295 X10*3/uL (160-400); Red Blood Count 5.03 X10*6/uL (4.20-5.50); White Blood Count 10.9 X10*3/uL (4.8-10.8)
[2025-02-20] MEDS: 0.9 % Sodium Chloride Flush 3 ML SYRINGE IVFLUSH (08:36)
[2025-02-20 08:42] LABS: Alanine Aminotransferase 594 U/L (0-31); Albumin Level 4.0 g/dL (3.5-5.0); Alkaline Phosphatase 151 U/L (39-117); Anion Gap 11 (12-20); Aspartate Amino Transferase 182 U/L (5-31); Blood Urea Nitrogen 7 mg/dL (9-16); Calcium 9.0 mg/dL (8.4-10.2); Carbon Dioxide 28 mmol/L (22-29); Chloride 105 mmol/L (96-108); Creatinine Clr Calc Pharmacy 73.8; Estimated Glomerular Filt Rate > 60; Potassium 3.7 mmol/L (3.3-5.1); Sodium 140 mmol/L (135-145); Total Protein 6.9 g/dL (6.5-8.0)
[2025-02-20 11:11] VITALS: BP 141/84; PULSE 54; RESP 18; TEMP 36.6; O2SAT 96
--- NOTE | 2025-02-20 15:44 | P.PNIM_ITS ---
Subjective Subjective Date of Service: 02/20/25 Interval History: Feeling worse this morning after experiencing nausea and vomiting last night Believes caused by both antibiotics and receiving his medications all at once rather than spread out individually over a longer period of time Upper abdominal pain 10/20 He has not been able to tolerate food this morning Review of Systems Review of Systems: Yes all other systems are reviewed and are negative Physical Exam 2 Exam: Exam: General: AOx3, looks uncomfortable, overall weak Resp: CTA bilaterally CVS: S1, S2, RRR GI: +BS, soft, no distention, upper abd tenderness Skin: Warm, dry Neuro: Cranial nerves II-XII grossly intact bilaterally. Motor grossly intact bilaterally Extremities: No edema Psych: Appropriate affect Vital Signs: Vital Signs: Last Vital Signs Temp 97.8 F 02/20/25 11:11 Pulse 54 02/20/25 11:11 Resp 18 02/20/25 11:11 BP 141/84 H 02/20/25 11:11 Pulse Ox 96 02/20/25 11:11 O2 Del Method Room Air 02/20/25 11:11 BMI result Body Mass Index 17.7 Objective Data Active Medications Acetaminophen (Acetaminophen 325 Mg Tablet) 650 mg PO Q6H PRN PRN Reason: Pain, Mild 1-3,fever,headache Bisacodyl (Bisacodyl 5 Mg Tablet.Dr) 10 mg PO BEDTIME [facility] Last Admin: 02/19/25 22:16 Dose: 10 mg Documented By: PATRICIO Calcium Carbonate (Calcium Carbonate 750 Mg Tab.Chew) 750 mg PO Q4H PRN PRN Reason: Heartburn Cefuroxime Axetil (Cefuroxime Axetil 500 Mg Tablet) 500 mg PO BID [facility] Last Admin: 02/20/25 08:35 Dose: 500 mg Documented By: KIYA Enoxaparin Sodium (Enoxaparin Sodium 40 Mg/0.4 Ml Syringe) 40 mg SUBCUT Q24H [facility] Last Admin: 02/20/25 02:48 Dose: 40 mg Documented By: PASTOR Famotidine (Famotidine 20 Mg Tablet) 40 mg PO BEDTIME [facility] Last Admin: 02/19/25 22:16 Dose: 40 mg Documented By: PATRICIO Dextrose/Sodium Chloride (D51/2ns) 1,000 mls @ 100 mls/hr IVCONT .Q10H [facility] Last Admin: 02/20/25 08:38 Dose: 100 mls/hr Documented By: KIYA Magnesium Hydroxide (Milk Of Magnesia 30 Ml Oral.Susp) 30 ml PO DAILY PRN PRN Reason: Constipation Magnesium Oxide (Magnesium Oxide 400 Mg Tablet) 400 mg PO BEDTIME [facility] Last Admin: 02/19/25 22:16 Dose: 400 mg Documented By: PATRICIO Melatonin (Melatonin 3 Mg Tablet) 6 mg PO BEDTIME PRN PRN Reason: Insomnia Metronidazole (Metronidazole 500 Mg Tablet) 500 mg PO Q8H [facility] Last Admin: 02/20/25 08:35 Dose: 500 mg Documented By: KIYA Morphine Sulfate (Morphine Sulfate Immed Release 15 Mg Tablet) 15 mg PO Q4H PRN PRN Reason: Pain, Moderate(Pain Scale 4-6) Morphine Sulfate (Morphine Sulfate 4 Mg/Ml Cartridge) 4 mg IVPUSH Q4H PRN; Protocol PRN Reason: Pain, Severe (Pain Scale 7-10) Last Admin: 02/20/25 13:40 Dose: 4 mg Documented By: KIYA Non-Formulary Medication (Linaclotide [Linzess]) 290 mcg PO DAILY [facility] Non-Formulary Medication (Pnfgyd-Bzrgwbek-Itcqzru (Pork) [Creon]) 2 cap PO BID [facility] Ondansetron HCl (Ondansetron Hcl 4 Mg/2 Ml Vial) 4 mg IVPUSH Q8H PRN PRN Reason: Nausea and Vomiting Last Admin: 02/20/25 11:14 Dose: 4 mg Documented By: KIYA Prochlorperazine Edisylate (Prochlorperazine Edisylate 10 Mg/2 Ml Vial) 5 mg IVPUSH Q4H PRN PRN Reason: Nausea and Vomiting Last Admin: 02/20/25 13:40 Dose: 5 mg Documented By: KIYA Sodium Chloride (0.9 % Sodium Chloride Flush 3 Ml Syringe) 3 ml IVFLUSH QSHIFT [facility] Last Admin: 02/20/25 08:36 Dose: 3 ml Documented By: KIYA Labs 02/20/25 06:44 02/20/25 06:44 Labs: Laboratory Results - last 24 hr 02/20/25 06:44 MCV 88.1 MCH 29.2 MCHC 33.2 RDW 14.4 Plt Count 295 MPV 10.4 Absolute Nucleated RBC 0.000 Nucleated RBC % (auto) 0.0 Anion Gap 11 L Estim Creat Clear Calc 73.8 Estimated GFR > 60 Random Glucose 95 Calcium 9.0 Total Bilirubin 0.7 AST 182 H ALT 594 H Alkaline Phosphatase 151 H Total Protein 6.9 Albumin 4.0 Microbiology Microbiology Results: Microbiology 02/18/25 20:34 Blood Culture - Preliminary Blood - Venous No growth after 24 hours. 02/18/25 20:25 Blood Culture - Preliminary Blood - Venous No growth after 24 hours. Assessment and Plan (1) Transaminitis: Status: Acute (2) Intractable abdominal pain: Status: Acute Plan 55-year-old male with a past medical history of HTN, HLD, GERD, pancreatitis, pancreatic mass; presented to the hospital with a chief complaint of abdominal pain. Intractable abdominal pain with N/V and transaminitis Pt developed pain post ERCP with pancreas biopsy at [facility] on 02/18 CT of abdomen/pelvis redemonstrated pancreatic mass with intrahepatic biliary tree dilation and severe dilation of CBD, increased from MRI of 01/19/2025 Initial LFTs with T bili 1.4, AST 1244, ALT 851, alk-phos 190; now trending down Analgesics and antiemetics Low-fat diet Continue IV fluids for now until has sufficient po intake GI consulted Will d/c cefuroxime and metronidazole as pt now with stomach upset and no clear indication of abd infection; leukocytosis likely reactionary, and now downtrending Trend liver enzymes Pancreatic mass: Patient found to have pancreatic mass measuring 1.6 mm in January 2025. At that time patient had an episode of pancreatitis. Patient follow with Aida Orozco as outpatient and the has had ERCP done for tissue biopsy at [facility]. CA 19 9 elevated Oncology follow-up Pt requires continued hospitalization for pain and nausea control, as well as trending LFTs. Pt has been unable to have sufficient p.o. intake today. Will attempt to discharge pt home tomorrow if he is feeling better. Quality Stroke Does the patient have a stroke diagnosis?: No VTE Prior VTE?: No VTE Risk Level:: Medical - moderate - high VTE Device Contraindication: Treatment Not Indicated VTE Drug Contraindication: N/A - Med Ordered
[2025-02-20 15:45] VITALS: BP 115/71; PULSE 57; RESP 16; TEMP 36.7; O2SAT 100
[2025-02-20 19:41] VITALS: BP 123/72; PULSE 53; RESP 16; TEMP 36.7; O2SAT 99
[2025-02-20 23:39] VITALS: BP 137/77; PULSE 57; RESP 16; TEMP 36.7; O2SAT 97
[2025-02-21] MEDS: Dextrose 5 % and 0.45 % NaCl 1,000 ML 100 ML IVCONT (01:58)
[2025-02-21 04:00] VITALS: BP 110/68; PULSE 52; RESP 16; TEMP 36.7; O2SAT 100
[2025-02-21 07:20] VITALS: BP 131/67; PULSE 48; RESP 18; TEMP 36.2; O2SAT 97
--- NOTE | 2025-02-21 10:55 | PM.DS ---
DS: Providers Provider Date of Service: 02/21/25 Date of admission: 02/19/25 02:13 Date of discharge: 02/21/25 Primary care physician: Emilie Davis MD Consults: 02/19/25 02:20 Consult to Gastroenterology Routine Consulting Provider: [facility] Reason for consultation: pancreatic mass; ERCP; abd pain 02/19/25 06:32 Consult to Hematology / Oncology Routine Consulting Provider: [facility] Reason for consultation: Pancreatic mass DS: Diagnosis Discharge Diagnosis (1) Transaminitis: Status: Acute (2) Intractable abdominal pain: Status: Acute DS: Summary Hospital Course Hospital Course: From admission HPI: Date of Service: 02/19/25 Chief Complaint: Abd pain 55-year-old male with a past medical history of HTN, HLD, GERD, pancreatitis, pancreatic mass; presented to the hospital with a chief complaint of abdominal pain. Patient mentioned that he had biopsy done at [facility] yesterday and following he had severe pain in his abdomen subsequently came to the ER for further evaluation. Has had nausea and vomiting. Denies any signs of bleeding. Patient denies any chest pain or palpitations. Review of all other systems is negative except mentioned above ER course: For ER team, patient noted to have epigastric tenderness; lipase within normal limits; CT abdomen pelvis showed slightly increased pancreatic mass size with the intrahepatic and extrahepatic biliary ductal dilation; patient also noted to have elevated liver enzymes. ER team discussed with Dr. Mills from Gastroenterology who suggested admission to the hospital and pain control for now. Hospital course Pt was admitted to the hospital for intractable abdominal pain and transaminitis in the setting of ERCP pancreatic mass biopsy at [facility] the day prior. Pt was treated with IVF, IV analgesics, and antiemetics. Pt was also seen and evaluated by both Hematology/Oncology and GI. Was initially started on empiric antibiotics, but pt was unable to tolerate them as they developed nausea and vomiting. Patient's leukocytosis likely reactionary and trended down with repeat labs, and pt remained afebrile throughout; antibiotics were thus stopped and patient's symptoms resolved. LFTs were closely monitored and also trended down, especially AST: 1244-->182. Pt was seen and evaluated this morning where they were resting comfortably in bed. Abdominal pain, nausea, and vomiting subsided. Pt was able to eat a solid diet and felt back to baseline. pt wished to be discharged home. They should resume all of their home medications. They should follow up with GI for biopsy results, as well as Dr. Mar in oncology as necessary pending on biopsy results. Time Attestation Discharge Coordination Time (in mins): 33 Quality: Safe Use of Opioids Does Pt have an Active Cancer Diagnosis on the Problem List?: No Quality: Stroke Does the patient have a stroke diagnosis?: No Physical Exam Exam: Exam: General: AOx3, no acute distress. Appears frail, cachetic Resp: CTA bilaterally CVS: S1, S2, RRR GI: +BS, NT, no distention Skin: Warm, dry Neuro: Cranial nerves II-XII grossly intact bilaterally. Motor grossly intact bilaterally Extremities: No edema Psych: Appropriate affect Vital Signs: Vital Signs: Last Vital Signs Temp 97.2 F 02/21/25 07:20 Pulse 48 L 02/21/25 07:20 Resp 18 02/21/25 07:20 BP 131/67 02/21/25 07:20 Pulse Ox 97 02/21/25 07:20 O2 Del Method Room Air 02/21/25 07:20 BMI result Body Mass Index 17.7 DS: Data Data Completed and Pending Labs on day of discharge: Preliminary micro results at discharge 02/18/25 20:34 Blood Culture - Preliminary Blood - Venous No growth after 48 hours. 02/18/25 20:25 Blood Culture - Preliminary Blood - Venous No growth after 48 hours. Discharge Plan Discharge Anticipated Discharge Date/Time: 02/21/25 10:56 Patient Disposition: Home, Self-Care Discharge Diagnosis: Intractable abdominal pain with transaminitis Referrals: Emilie Davis MD [Primary Care Provider, Family Practice] - 1 Week Aida Orozco ANP-C [Nurse Practitioner, Gastroenterology] - 1 Week Referral Note: The pt recently admitted for intractable abdominal pain and transaminitis after pancreatic mass biopsy Ele Mar MD [Physician, Hematology & Oncology] - 1 Week Referral Note: Pt being worked up for pancreatic mass. Had ERCP biopsy at [facility] [place] Discharge Medications: New ondansetron 4 mg tablet,disintegrating 4 mg PO Q8H PRN (Reason: nausea and vomiting) Qty: 30 0RF Continued cholecalciferol (vitamin D3) 1,250 mcg (50,000 unit) capsule 1,250 mcg PO MO Creon 3,000-9,500- 15,000 unit capsule,delayed release(DR/EC) 2 cap PO BID Linzess 290 mcg capsule 290 mcg PO DAILY cabotegravir [Apretude] 600 mg/3 mL (200 mg/mL) suspension,extended release 600 mg IM [id number] (DME) Oxygen Home Use Kit See Rx Instructions .Route Qty: 3 0RF Rx Instructions: Start home O2 at 15-25 L/min via non-rebreather facemask x's 15-20 minutes at onset of cluster headache attack. Patient will require both M tanks and E tanks. magnesium oxide 400 mg (241.3 mg magnesium) tablet 400 mg PO BEDTIME 30 Days Qty: 30 6RF Rx Instructions: may hold for loose stools Emgality Syringe 300 mg/3 mL (100 mg/mL x 3) syringe 300 mg subcut QMONTH 30 Days Qty: 3 3RF Rx Instructions: administer as three 100 mg injections at separate sites famotidine [Pepcid] 40 mg tablet 40 mg PO BEDTIME Qty: 30 6RF bisacodyl [Dulcolax (bisacodyl)] 5 mg tablet,delayed release (DR/EC) 10 mg PO BEDTIME 30 Days Qty: 60 6RF morphine 15 mg tablet 15 mg PO Q4H PRN (Reason: pain) Qty: 14 0RF Rx Instructions: Partial Fill upon patient request. Discharge Orders: Discharge Order (Routine); Ordered 02/21/25 Ordered By: Aman Genao Activity on Discharge: As tolerated Stand Alone Forms: Patient Portal Discharge page Print Language: Tamazight Care Plan Goals: See below Health Concerns: Intractable abdominal pain Intractable nausea, vomiting Transaminitis Pancreatic mass Plan of Treatment: You were admitted to the hospital for intractable abdominal pain and elevated liver enzymes after undergoing a pancreatic mass biopsy at [facility] the day prior. You were treated with IVF, IV analgesics, and antiemetics. You were also initially started on empiric antibiotics per GI suggestion, but were unable to tolerate them as you developed nausea and vomiting. Your WBCs trending lower and you never had a fever, so antibiotics were stopped and your nausea and vomiting subsided. Your liver enzymes were also monitored amd they too trended down. This morning you were seen and evaluated and felt well, with abdominal pain and nausea and vomiting controlled. You were able to eat a solid diet and feel well enough to be discharged home. -- take ondansetron 4 mg tablets every 8 hours as necessary for nausea -- resume all of your home medications -- follow up with GI for biopsy results -- follow up with Dr. Mar in oncology as necessary Assessment: See discharge summary
--- NOTE | 2025-02-21 12:04 | MHC.CM.PN ---
PT WILL DC HOME TODAY WITH NO SERVICES VIA PRIVATE TRANSPORT
== END 2025-02-21 13:58 | disposition home or self-care (01) | DRG 282 ==
LOC: HO.ED 21:48 → HO.EDOVER 02-19 02:53 → HO.IMC 02-19 07:35
PROVIDERS: Internal Medicine; Physician Assistant; Admitting Provider Hospitalist; Emergency Provider Emergency Medicine; PCP Family Medicine; Visit Provider Student in an Organized Health Care Education/Training Program
DX: K86.9 Disease of pancreas, unspecified (principal); Z99.81 Dependence on supplemental oxygen; F64.0 Transsexualism; R10.9 Unspecified abdominal pain; Z79.899 Other long term (current) drug therapy
CPT/HCPCS: 36415; 74177; 80048; 80053; 80076; 83605; 83690; 85025; 85027; 87040; 99285; J0692; J0737; J1171; J1200; J1650; J1836; J2270; J2405; J2765; Q9967

== ENCOUNTER → 2025-02-18 18:05 | Outpatient (BNV) | payer OTHER, SELFPAY | PROVIDERS: Emergency Provider Emergency Medicine; PCP Family Medicine; Visit Provider Student in an Organized Health Care Education/Training Program | DX: K83.8 Other specified diseases of biliary tract (principal) | CPT/HCPCS: 74177 ==

== ENCOUNTER → 2025-02-19 02:13 | Outpatient (BNV) | payer OTHER, SELFPAY | PROVIDERS: Admitting Provider Hospitalist; Emergency Provider Emergency Medicine; PCP Family Medicine; Visit Provider Internal Medicine | DX: D49.0 Neoplasm of unspecified behavior of digestive system (principal); R94.5 Abnormal results of liver function studies | CPT/HCPCS: 99222 ==

== ENCOUNTER → 2025-02-19 02:13 | Outpatient (BNV) | payer OTHER, SELFPAY | PROVIDERS: Admitting Provider Hospitalist; Emergency Provider Emergency Medicine; PCP Family Medicine; Visit Provider Student in an Organized Health Care Education/Training Program | DX: R10.10 Upper abdominal pain, unspecified (principal) | CPT/HCPCS: 99223 ==

== ENCOUNTER → 2025-02-19 02:13 | Outpatient (BNV) | payer OTHER, SELFPAY | PROVIDERS: Admitting Provider Hospitalist; Emergency Provider Emergency Medicine; PCP Family Medicine; Visit Provider Internal Medicine | DX: R11.2 Nausea with vomiting, unspecified (principal); K86.89 Other specified diseases of pancreas; R79.89 Other specified abnormal findings of blood chemistry | CPT/HCPCS: 99223 ==

== ENCOUNTER 2025-02-23 14:59 | Outpatient (AMB) | payer OTHER, SELFPAY ==
--- NOTE | 2025-02-23 15:03 | MHC.OFFVIS ---
Vital Signs 02/23/25 15:05 Height 5 ft 4 in Weight 102 lb 4.712 oz BMI 17.6 BP 107/79 Blood Pressure Location Lt brachial Position Sitting Pulse 77 Intake Visit Reasons: Follow up pancreatic mass path Intake Note: Patient in office today in follow up of pancreatic mass pathology. CC: Patient states that she was called by [facility] yesterday for path results and would like to discuss tx plan. Material Requisitioner Required: Yes Accompanied by: Self / Same As Patient Allergies black pepper Allergy (Severe, Verified 02/23/25 15:09) Anaphylaxis Penicillins (PENICILLINS) Allergy (Intermediate, Verified 02/23/25 15:09) HIVES,SWELLING sumatriptan (SUMATRIPTAN) Adverse Reaction (Severe, Verified 02/23/25 15:09) PT STATES HEART ATTACK HPI HPI Follow up pancreatic mass path: Details: Assessment and Plan (1) Nausea & vomiting: Status: Acute (2) Pancreatic mass: Status: Acute (3) Elevated LFTs: Status: Acute Plan Patient with post procedure abdominal pain, nausea and vomiting. This has now improved, without any further nausea and vomiting. Patient is eager to eat. In terms of LFTs, panc mass with known CBD infiltration. No obstruction based on current labs but will likely need ERCP for stent placement and biliary drainage in the near future. Plan: - Ok to advance diet - Abx can be switched to PO cipro+ flagyl; or levaquin and completed x 5 days - Pain management with tylenol 675 TID jody x 2-3 days. OK to give tramadol or oxy short term for break through pain in the next 2-3 days - LFTs to be monitored as outpatient as pt at risk of biliary obstruction - Path results from [facility] pending Thank you for allowing me to participate in his care. Please do not hesitate to reach out for any questions or concerns. todays visit [employer] #Bina Jones [facility] Medical History Upper abdominal pain Pancreatic mass Erosive esophagitis Abdominal pain Sleep difficulties Vomiting LEE (dyspnea on exertion) Arthritis Occipital neuralgia of left side New onset headache Diverticulosis of colon Chronic, continuous use of opioids Chronic GERD Palpitations Hypotension History of palpitations Dysphagia Disc degeneration, lumbar Spondylosis of lumbar spine Depression Past heart attack Hyperlipemia Erosive osteoarthritis of hands, bilateral GERD (gastroesophageal reflux disease) Hypertension Surgical History History of cholecystectomy Hx of colonoscopy History of esophagogastroduodenoscopy (EGD) H/O bilateral mastectomy H/O: hysterectomy Family History Mother Hypertension Breast cancer Maternal Grandmother Myocardial infarct Skin cancer Sister Heart problem Breast cancer Family/Other Esophageal cancer Social History Household Members: Family Housing: Apartment Are you a primary childcare teacher to a significant other at home: No Do you presently have visiting nurse or other home services: No Alcohol intake: never Patient Tobacco Use Status: Former Tobacco user Substance Use Type: Marijuana service: No Review of Systems Const Denies fatigue, Denies fever(s), Denies night sweats, Denies poor appetite and Denies weight loss Eyes Details: Glasses Reports requires corrective lenses ENT Reports Normal hearing present, Denies dental pain, Reports dysphagia, Denies hearing loss, Denies mouth pain, Denies odynophagia, Denies throat swelling, Denies tongue swelling and Reports other (Dentition adequate) Card Reports no additional complaints Resp Reports no additional complaints GI Details: Reports abdominal pain, Denies melena, Denies bloating, Denies hematochezia, Denies constipation, Denies GI cramping, Reports dysphagia, Denies excessive flatus, Denies early satiety, Reports heartburn, Denies diarrhea, Reports nausea, Denies odynophagia, Denies vomiting and Denies hematemesis Skin/Breast Denies pruritus, Denies lesions, Denies rash and Denies jaundice Neuro Reports Normal hearing present and Denies Abnormal speech present Endo Denies fatigue Aller/Immun Denies throat swelling and Denies tongue swelling Physical Exam Vital Signs: Last Vital Signs Pulse 77 02/23/25 15:05 BP 107/79 02/23/25 15:05 BMI result Body Mass Index 17.6 Const General: cooperative, no acute distress, well developed and well groomed Nutritional Appearance: well nourished and thin Orientation/consciousness: oriented to person, oriented to place and oriented to time Limitations: language barrier HEENT Head: Yes normocephalic and Yes atraumatic Eyes General: appearance normal, both eyes and all related structures Pupils: Equal, round and reactive pupils present Neck Neck: Yes normal visual inspection and Yes no lymphadenopathy Thyroid: Thyroid normal Resp Effort & Inspection: normal respiratory effort and able to speak in complete sentences Auscultation: clear to auscultation bilaterally Cardio Rate: regular rate Rhythm: regular rhythm Heart sounds: Normal, physiologic split S2 sound present Peripheral pulses: radial pulses present and posterior tibial pulses present GI Inspection: No distended and No Abdominal panniculus present Palpation (GI): Soft to palpation, nontender, no guarding, not rigid and No hepatosplenomegaly present Percussion: Yes normal to percussion Auscultation: normal bowel sounds Rectal Exam - Female: deferred Skin General skin exam: no rashes or lesions noted, turgor normal, skin not dry, no jaundice, No spider nevi and no striae Rashes: no rashes Nails: normal Neuro General: oriented to person, oriented to place and oriented to time Cranial nerves: Yes Equal, round and reactive pupils present and Yes Normal hearing present Speech: No Abnormal speech present Extrem General: Yes normal to inspection, No clubbing, No cyanosis and No edema Psych Appearance: grossly normal and well kempt Mental Status: mental status grossly normal Speech and movement: Normal speech and movement present Affect: normal affect Attitude: cooperative Thought process: Normal thought process present and not confabulating Thought content: Normal thought content present Insight: Fair insight present (Psych) Judgement: Fair judgement present (Psych) Assessment & Plan Assessment & Plan (1) Pancreatic adenocarcinoma: Code(s): C25.9 - Malignant neoplasm of pancreas, unspecified Category: Medical (2) Elevated CA 19-9 level: Code(s): R97.8 - Other abnormal tumor markers Category: Medical Plan He had received a call from [facility] so she was aware of the finding of pancreatic cancer. Apparently the provider over there ordered a chest CT to aid with a workup at told her ?year GI and your oncology providers we will manage you over there. ? I explained that this is not entirely true since I do not believe we have surgical oncology as a resource at the [facility]. With this in mind I have given him urgent referrals both to [facility] Surgical Oncology and to our Oncology/Hematology team. We discussed generally the prognosis a pancreatic cancer. While it is difficult to discuss these things, I did make him aware that this is generally considered an aggressive cancer. The 5 year survival rate tends to max at about 15%. However I know there have been new treatments and I am not the most up-to-date since I am not an oncologist. I let him know that I am giving her what is indicated in the general literature and of course his individual prognosis we will vary depending on a multitude of factors that we have yet to ascertain. However, I think he probably needs debulking at the very least of the tumor since it seems to be putting pressure on his bile ducts and causing pain and even her dysphagia. After her endoscopic ultrasound he develops severe pain, and since he was unable to drive and had not yet picked up the morphine I had prescribed he called an ambulance and presented to the emergency department. He was subsequently admitted for pain management. At that time he was seen by Oncology and Gastroenterology, however it does not appear the biopsy results from [facility] were yet back for them to review. Apparently he has been trying to call our Oncology Department to make an appointment but has not yet succeeded in touching base. Return office visit in 6 weeks to touch base. Orders: Referrals Hematology & Oncology Referral C25.9 - Malignant neoplasm of pancreas, unspecified, R97.8 - Other abnormal tumor markers Coding Level of Care Code Est Pt Level 4 (80748) Diagnoses Pancreatic adenocarcinoma C25.9 Elevated CA 19-9 level R97.8 Time Spent (min) 35
[2025-02-23 15:05] VITALS: BP 107/79; PULSE 77; BMI 17.6
--- OUTSIDE RECORDS SUMMARY | 2025-02-23 17:54 | XMS_ITS | Encounter Summary ---
Author Organization [employer] Address [address] [place] [address] Care Team Providers Care Personal Financial Planner Name Role Phone Emilie Davis MD Primary Care Provider [phone] Morales Echavarria Unavailable Unavailable August Unavailable Fred Castanon Unavailable Ele Mar MD Unavailable [phone] Reason for Visit * Reason Comments Pre-visit Planning Pre-visit planning - LVM Encounter Details Date Type Department Care Team (Late st Contact Info) Description 02/23/2025 Patient Outreach [facility] [address] [place] [address] Emilie Davis MD [address] [place] [address] Pre-visit Planning (Pre-visit planning - LVM ) Social History Tobacco Use Types Packs/Day [...] t he electric, gas, oil or water [employer] threatened to shut off services in your [...] Industry Job Start Date Job End Date [employer] Not on file Not on file Not on file documented as of this encounter Progress Notes * Catie Tejada - 02/23/2025 3:07 PM EDT RASHAWN Hawk placed outbound call to patient to complete pre-visit planning. No answer at this time. Patient name and were not confirmed. CC left voicemail requesting return call. Direct contact information provided. documented in this encounter Plan of Treatment Upcoming Encounters Date Type Department Care Team (Late st Contact Info) Description 03/03/2025 9:30 AM EDT Office Visit [facility] [address] [place] [address] Emilie Davis MD [address] [place], [place] [phone] 03/24/2025 11:00 AM EST Clinical Support [facility] [address] [place] [address] Medina Lewis, RN [address] [place] [address] 06/04/2025 3:00 PM EST Office Visit [facility] [address] [place] [address] Merissa Donis, OD [address] [place] [address] documented as of this encounter Visit Diagnoses Not on filedocumented in this encounter Additional Health Concerns Assessment Noted Time PHQ-9 Depression Total Score: 3 04/30/20 9:17 AM EST documented as of this encounter Care Teams Personal Financial Planner Relationship Specialty Start Date End Date Emilie Davis MD [address] [place] [address] PCP - General Family Medicine 05/13/18 Morales Echavarria FNP [address] [place] [address] Nurse Practitioner Family Medicine 04/16/23August [address] [address] Gastroenterology 05/26/24 Fred Castanon [address] [place] [address] 07/21/24 Ele Mar MD [address] [place] [address] Hematology and Oncology 02/22/25 Marina Brown MD Rheumatology 02/10/25 documented as of this encounter
--- OUTSIDE RECORDS SUMMARY | 2025-02-23 17:54 | XMS_ITS | Encounter Summary ---
Author Organization [employer] [facility] Address [address] [facility] 7t [place] [address] Care Team Providers Care Law Enforcement Instructor Name Role Phone Emilie Davis MD Primary Care Provider Morales Echavarria Unavailable Unavailable August Unavailable Fred Castanon Unavailable Ele Mar MD Unavailable [phone] Reason for Visit * Reason Comments Med Refill Encounter Details Date Type Department Care Team (Late st Contact Info) Description 06/27/2022 Refill [facility] [address] [place] [address] [phone] Emilie Dvais MD [address] [place] [address] [phone] Social History Tobacco Use Types Packs/Day Years [...] EDT Office Visit [facility] [address] [place] [address] [phone] Emilie Davis MD [address] [place] [address] [phone] 03/24/2025 11:00 AM EST Clinical Support [facility] [address] [place] [address] Medina Lewis, RN [address] [place] [address] 06/04/2025 3:00 PM EST Office Visit [facility] [address] [place] [address] Merissa Donsi, OD [address] [place] [address] documented as of this encounter Visit Diagnoses Not on filedocumented in this encounter Care Teams Law Enforcement Instructor Relationship Specialty Start Date End Date Ryan, MD Emilie [address] [place] [address] PCP - General Family Medicine 05/13/18 Morales Echavarria FNP [address] [place] [address] Nurse Practitioner Family Medicine 04/16/23August [address] [place] [address] [address] [place] [address] Gastroenterology 05/26/24 Fred Castanon [address] [place] [phone] 07/21/24 Ele Mar MD [address] [place] [address] Hematology and Oncology 02/22/25 Marina Brown MD Rheumatology 02/10/25 documented as of this encounter
--- OUTSIDE RECORDS SUMMARY | 2025-02-23 17:54 | XMS_ITS | Encounter Summary ---
Author Organization [employer] [facility] Address [address] [facility] [address] [place] [address] Care Team Providers Care Churn Driller Name Role Phone Emilie Davis MD Primary Care Provider [phone] Morales Echavarria Unavailable Unavailable August Unavailable Fred Castanon Unavailable Ele Mar MD Unavailable [phone] Encounter Details Date Type Department Care Team ([facility] Contact Info) Description 11/28/2022 Abstract [facility] [address] [place] [phone] Emilie Davis MD [address] [place] [address] [phone] Social History Tobacco Use Types Packs/Day Years [...] Department Care Team (Late Contact Info) Description 03/03/2025 9:30 AM EDT Office Visit [facility] [address] [place] [address] Emilie Davis MD [address] [place] [address] 03/24/2025 11:00 AM EST Clinical Support [facility] [address] [place] [address] Medina Lewis, RN [address] [place] [address] 06/04/2025 3:00 PM EST Office Visit [facility] [address] [place] [address] GagandeepMerissa santos, OD [address] [place] [address] documented as of this encounter Visit Diagnoses Not on filedocumented in this encounter Additional Health Concerns Assessment Noted Time PHQ-9 Depression Total Score: 19 023 9:24 AM EDT documented as of this encounter Care Teams Churn Driller Relationship Specialty Start Date End Date Emilie Davis MD [address] [place] [address] PCP - General Family Medicine 05/13/18 Morales Echavarria FNP [address] [place] [address] Nurse Practitioner Family Medicine 04/16/23 Pam Aida [address] [place] [address] Gastroenterology 05/26/24 Fred Castanon [address] [address] 07/21/24 Ele Mar MD [address] [place] [address] Hematology and Oncology 02/22/25 Marina Brown MD Rheumatology 02/10/25 documented as of this encounter
--- OUTSIDE RECORDS SUMMARY | 2025-02-23 17:54 | XMS_ITS | Encounter Summary ---
Author Organization [employer] [facility] Address [address] [facility] 7t [place] [address] Care Team Providers Care Business Objects Developer Name Role Phone Emilie Davis MD Primary Care Provider +1- [phone] Morales Echavarria Unavailable Unavailable August Unavailable Fred Castanon Unavailable Ele Mar MD Unavailable [phone] Reason for Visit * Reason Comments Med Refill Encounter Details Date Type Department Care Team (Late st Contact Info) Description 01/01/2023 Refill [facility] [address] [place] [address] Emilie Davis MD 230 [place], [place] [phone] Social History Tobacco Use Types Packs/Day Years [...] 8:54 AM EDT T/C to patient via reimbursement representative regarding x-ray result. No answer, message left [...] Description 03/03/2025 9:30 AM EDT Office Visit [facility] [address] [place] [address] Emilie Davis MD 230 [place] [address] 03/24/2025 11:00 AM EST Clinical Support [facility] [address] [place] [address] Medina Lewis, RONALD 230 [place] [address] 06/04/2025 3:00 PM EST Office Visit [facility] [address] [place] [address] Merissa Donis, OD 230 [place] [address] documented as of this encounter Visit Diagnoses Not on filedocumented in this encounter Additional Health Concerns Assessment Noted Time PHQ-9 Depression Total Score: 19 023 9:24 AM EDT documented as of this encounter Care Teams Business Objects Developer Relationship Specialty Start Date End Date Emilie Davis MD 230 [place] [address] PCP - General Family Medicine 05/13/18 Morales Echavarria FNP 230 [place] [address] Nurse Practitioner Family Medicine 04/16/23 Aida Orozco [address] [place] [address] Gastroenterology 05/26/24 Fred Castanon [address] [place] [address] 07/21/24 Ele Mar MD 575 [place] [address] Hematology and Oncology 02/22/25 Marina Brown MD Rheumatology 02/10/25 documented as of this encounter
--- OUTSIDE RECORDS SUMMARY | 2025-02-23 17:54 | XMS_ITS | Encounter Summary ---
Author Organization [employer] Address 75 [facility] 7t [place] [address] Care Team Providers Care Vp Director Of Creative Strategy Name Role Phone RyanEmilie MD Primary Care Provider +1- [phone] Morales Echavarria Unavailable Unavailable August Unavailable Fred Castanon Unavailable Ele Mar MD Unavailable [phone] Encounter Details Date Type Department Care Team (Late st Contact Info) Description 02/19/2025 Orders Only [facility] 230 [place] [address] Provider, MD Sammy Social History Tobacco Use Types Packs/Day Years [...] 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 on file Not on file documented as of this encounter Plan of Treatment Upcoming Encounters Date Type Department Care Team (Late st Contact Info) Description 03/03/2025 9:30 AM EDT Office Visit [facility] [address] [place] [address] Emilie Davis MD 230 [place] [address] 03/24/2025 11:00 AM EST Clinical Support [facility] [address] [place] [address] Medina Lewis, RONALD 230 [place] [address] 06/04/2025 3:00 PM EST Office Visit [facility] [address] [place] [address] Merissa Donis OD 230 [place] [address] documented as of this encounter Procedures Procedure Name Priority Date/Time Associated Diagnosis Comments EGD Routine 02/18/2025 2:59 PM EDT documented in this encounter Results * EGD (02/18/2025 2:59 PM EDT) Anatomical Region Laterality Modality Endoscopy us Historical Provider ENDOSCOPY PROCEDURE ORDER TATUM Final Result documented in this encounter Visit Diagnoses Not on filedocumented in this encounter Additional Health Concerns Assessment Noted Time PHQ-9 Depression Total Score: 3 04/30/20 23 9:17 AM EST documented as of this encounter Care Teams Vp Director Of Creative Strategy Relationship Specialty Start Date End Date Emilie Davis MD [address] [place] [address] PCP - General Family Medicine 05/13/18 Morales Echavarria FNP [address] [place] [address] Nurse Practitioner Family Medicine 04/16/23OrozcoAugust [address] [place] [address] Gastroenterology 05/26/24 Fred Castanon [address] [place] [address] 07/21/24 Ele Mar MD [address] [place] [address] Hematology and Oncology 02/22/25 Marina Brown MD Rheumatology 02/10/25 documented as of this encounter
--- OUTSIDE RECORDS SUMMARY | 2025-02-23 17:54 | XMS_ITS | Encounter Summary ---
Author Organization [employer] Address [address] [facility] [address] 7t [place] [address] Care Team Providers Care Branding Specialist Name Role Phone Emilie Davis MD Primary Care Provider [phone]- [phone] Morales Echavarria Unavailable Unavailable August Unavailable Fred Castanon Unavailable Encounter Details Date Type Department Care Team ([facility] st Contact Info) Description 02/19/2025 Telephone [facility] [address] [place] [address] Emilie Davis MD [address] [place] [address] Social History Tobacco Use Types Packs/Day Years [...] 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 yesterday. Please check [facility] and make sure it was done. Thank you. documented in this encounter Plan of Treatment Upcoming Encounters Date Type Department Care Team (Late st Contact Info) Description 03/03/2025 9:30 AM EDT Office Visit [facility] [address] [place] [address] Emilie Davis MD [address] [place] [address] 03/24/2025 11:00 AM EST Clinical Support [facility] [address] [place] [address] Medina Lewis, RN 230 [place] [address] 06/04/2025 3:00 PM EST Office Visit [facility] [address] [place] [address] Merissa Donis, OD 230 [place] [address] documented as of this encounter Visit Diagnoses Not on filedocumented in this encounter Additional Health Concerns Assessment Noted Time PHQ-9 Depression Total Score: 3 04/30/20 9:17 AM EST documented as of this encounter Care Teams Branding Specialist Relationship Specialty Start Date End Date Emilie Davis MD [address] [place] [address] PCP - General Family Medicine 05/13/18 Morales Echavarria FNP [address] [place] [address] Nurse Practitioner Family Medicine 04/16/23 Pam Aida [address] [place] [address] [address] [place] [address] Gastroenterology 05/26/24 Fred Castanon [address] [place] [address] 07/21/24 Marina Brown MD Rheumatology 02/10/25 documented as of this encounter
--- OUTSIDE RECORDS SUMMARY | 2025-02-23 17:54 | XMS_ITS | Encounter Summary ---
Author Organization [employer] [facility] Address 75 [facility] 7t [place] [address] Care Team Providers Care Visualizer Name Role Phone Emilie Davis MD Primary Care Provider [phone]- [phone] Morales Echavarria Unavailable Unavailable August Unavailable Fred Castanon Unavailable Ele Mar MD Unavailable [phone] Encounter Details Date Type Department Care Team (Late st Contact Info) Description 04/22/2022 Orders Only [facility] [address] [place], [place] [phone] Emilie Davis MD [address] [place] [address] [phone] HSV (herpes simplex virus) anogenital infection (Primary [...] EDT Office Visit [facility] [address] [place] [phone] Emilie Davis MD 230 [place], [place] [phone] 03/24/2025 11:00 AM EST Clinical Support [facility] 230 [place] [address] Medina eLwis, RONALD 230 [place] [address] 06/04/2025 3:00 PM EST Office Visit [facility] [address] [place] [address] Merissa Donis, OD 230 [place] [address] documented as of this encounter Visit Diagnoses Diagnosis HSV (herpes simplex virus) anogenital infection- Primary Herpes simplex without mention of complication Pancreatic mass- Primary Unspecified disease of pancreas documented in this encounter Care Teams Visualizer Relationship Specialty Start Date End Date Emilie Davis MD [address] [place] [address] PCP - General Family Medicine 05/13/18 Morales Echavarria FNP [address] [place] [address] Nurse Practitioner Family Medicine 04/16/23August [address] [place] [address] Gastroenterology 05/26/24 Fred Castanon [address] [place] [address] 07/21/24 Ele Mar MD [address] [place] [address] Hematology and Oncology 02/22/25 Marina Brown MD Rheumatology 02/10/25 documented as of this encounter
--- OUTSIDE RECORDS SUMMARY | 2025-02-23 17:54 | XMS_ITS | Encounter Summary ---
Author Organization [employer] Address [address] [facility] [address] 7t [place] [address] Care Team Providers Care Educational Resource Coordinator Name Role Phone Emilie Davis MD Primary Care Provider [phone]- [phone] Morales Echavarria Unavailable Unavailable August Unavailable Fred Castanon Unavailable Ele Mar MD Unavailable [phone] Encounter Details Date Type Department Care Team (Late st Contact Info) Description 03/25/2023 Orders Only [facility] [address] [place] [address] Emilie Davis MD 230 [place], [place] [phone] Social History Tobacco Use Types Packs/Day Years [...] 9:30 AM EDT Office Visit [facility] [address] [place] [address] Emilie Davis MD 230 [place] [address] 03/24/2025 11:00 AM EST Clinical Support [facility] [address] [place] [address] Medina Lewis, RN 230 [place] [address] 06/04/2025 3:00 PM EST Office Visit [facility] [address] [place] [address] Merissa Donis, OD 230 [place] [address] documented as of this encounter Visit Diagnoses Not on filedocumented in this encounter Additional Health Concerns Assessment Noted Time PHQ-9 Depression Total Score: 10 023 9:08 AM EDT documented as of this encounter Care Teams Educational Resource Coordinator Relationship Specialty Start Date End Date Emilie Davis MD 230 [place] [address] PCP - General Family Medicine 05/13/18 Morales Echavarria FNP 230 [place] [address] Nurse Practitioner Family Medicine 04/16/23 Aida Orozco [address] [place] [address] Gastroenterology 05/26/24 Fred Castanon [address] [place] [address] 07/21/24 Ele Mar MD [address] [place] [address] Hematology and Oncology 02/22/25 Marina Brown MD Rheumatology 02/10/25 documented as of this encounter
--- OUTSIDE RECORDS SUMMARY | 2025-02-23 17:54 | XMS_ITS | Encounter Summary ---
Author Organization [employer] [facility] Address [address] [facility] 7t [place] [address] Care Team Providers Care Chemical Handler Name Role Phone Emilie Davis MD Primary Care Provider [phone]- [phone] Morales Echavarria Unavailable Unavailable August Unavailable Fred Castanon Unavailable Ele Mar MD Unavailable [phone] Reason for Referral * Consultation (Urgent) - Closed Specialty Diagnoses / Procedures Referred By Contac t Referred To Contact Behavioral Health Diagnoses Depression, unspecified depression type Emilie Davis MD [address] [place] [address] Phone: tel: fax: Referral ID Status Reason Start Date Expiration Date V isits Requested Visits Authorized [id number] Closed Specialty Services Required 02/05/2025 02/05/2026 1 1 Encounter Details Date Type Department Care Team (Late st Contact Info) Description 02/05/2025 Orders Only [facility] [address] [place] [address] [phone] Emilie Davis MD 230 [place], [place] [phone] Depression, unspecified depression type (Primary Dx) Social [...] 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 Not on file documented as of this encounter Plan of Treatment Upcoming Encounters Date Type Department Care Team (Late st Contact Info) Description 03/03/2025 9:30 AM EDT Office Visit [facility] [address] [place] [address] Emilie Davis MD 230 [place] [address] 03/24/2025 11:00 AM EST Clinical Support [facility] [address] [place] [address] Medina Lewis, RN 230 [place] [address] 06/04/2025 3:00 PM EST Office Visit [facility] [address] [place] [address] Merissa Donis, OD 230 [place] [address] Scheduled Referrals Name Type Priority Associated Diagnoses Orde r Schedule Referral to Behavioral Health Outpatient Referral Routine Depression, unspecified depression type Expected: 02/05/2025 (Approximate), Expires: 08/05/2026 documented as of this encounter Visit Diagnoses Diagnosis Depression, unspecified depression type- Primary Pancreatic mass- Primary Unspecified disease of pancreas documented in this encounter Additional Health Concerns Assessment Noted Time PHQ-9 Depression Total Score: 3 04/30/20 9:17 AM EST documented as of this encounter Care Teams Chemical Handler Relationship Specialty Start Date End Date Emilie Davis MD 230 [place] [address] PCP - General Family Medicine 05/13/18 Morales Echavarria FNP [address] [place] [address] Nurse Practitioner Family Medicine 04/16/23 Pma Aida [address] [place] [address] 3[address] [place] [address] Gastroenterology 05/26/24 Fred Castanon [address] [address] 07/21/24 Ele Mar MD [address] [place] [address] Hematology and Oncology 02/22/25 Marina Brown MD Rheumatology 02/10/25 documented as of this encounter
--- OUTSIDE RECORDS SUMMARY | 2025-02-23 17:54 | XMS_ITS | Encounter Summary ---
Author Organization [employer] Address [address] [facility] [address] 7t [place] [address] Care Team Providers Care Enrobing Machine Corder Name Role Phone Emilie Davis MD Primary Care Provider [phone]- [phone] Morales Echavarria Unavailable Unavailable August Unavailable Fred Castanon Unavailable Ele Mar MD Unavailable [phone] Reason for Visit * Reason Onset Date Comments Med Refill 04/22/2024 Encounter Details Date Type Department Care Team (Late st Contact Info) Description 04/22/2024 Telephone [facility] 230 [place], [place] [phone] Emilie Davis MD 230 [place] [address] Med Refill Social History Tobacco Use Types [...] 200 MG/5ML suspension To be sent to: [facility] - [place], [place] - [address] [facility] documented in this encounter Plan of Treatment Upcoming Encounters Date Type Department Care Team ([facility] st Contact Info) Description 03/03/2025 9:30 AM EDT Office Visit [facility] 230 [place] [address] Emilie Davis MD 230 [place] [address] 03/24/2025 11:00 AM EST Clinical Support [facility] 230 [place] [address] Medina Lewis, RN 230 [place] [address] 06/04/2025 3:00 PM EST Office Visit [facility] [address] [place] [address] GagandeepMerissa santos, OD 230 [place] [address] documented as of this encounter Visit Diagnoses Not on filedocumented in this encounter Additional Health Concerns Assessment Noted Time PHQ-9 Depression Total Score: 3 04/30/20 9:17 AM EST documented as of this encounter Care Teams Enrobing Machine Corder Relationship Specialty Start Date End Date Emilie Davis MD [address] [place] [address] PCP - General Family Medicine 05/13/18 Morales Echavarria FNP [address] [place] [address] Nurse Practitioner Family Medicine 04/16/23August [address] [place] [address] Gastroenterology 05/26/24 Fred Castanon [address] [place] [address] 07/21/24 Ele Mar MD [address] [place] [address] Hematology and Oncology 02/22/25 Marina Brown MD Rheumatology 02/10/25 documented as of this encounter
--- OUTSIDE RECORDS SUMMARY | 2025-02-23 17:54 | XMS_ITS | Encounter Summary ---
Author Organization [facility] Address [address] [place] [address] Phone Care Team Providers Care Legislators Name Role Phone Emilie Davis MD Primary Care Provi baldomero Encounter Details Date Type Department Care Team (Late st Contact Info) Description 10/28/2018 Procedure Pass OR Admitting Dept - Virtual Department [address] [place] [address] Social History Tobacco Use Types Packs/Day Years [...] on filedocumented in this encounter Care Teams Legislators Relationship Specialty Start Date End Date Emilie Davis MD [address] [place] [address] PCP - General Family Medicine 06/03/18 documented as of this encounter Additional Source Comments The information contained in this document represents components of the legal health record. It is not the complete legal health record.[facility]
--- OUTSIDE RECORDS SUMMARY | 2025-02-23 17:54 | XMS_ITS | Encounter Summary ---
Author Organization [employer] Address [address] [facility] [address] 7t [place] [address] Care Team Providers Care Skin Peeling Machine Operator Name Role Phone Emilie Davis MD Primary Care Provider [phone]- [phone] Morlaes Echavarria Unavailable Unavailable August Unavailable Fred Castanon Unavailable Ele Mar MD Unavailable [phone] Reason for Visit * Reason Comments Med Refill Encounter Details Date Type Department Care Team (Late st Contact Info) Description 01/17/[address] [facility] 230 [place], [place] [phone] Emilie Davis MD 230 [place], [place] [phone] 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) Social History Tobacco Use Types Packs/Day Years Used Date Smoking Tobacco: Never Passive Smoke Exposure: Never Smokeless Tobacco: Never Depression Answer Date Recorded Patient Health Questionnaire-9 Score 3 04/30/2023 Patient Health Questionnaire-9 Score 3 04/30/2023 Last PHQ-9: Questionnaire Data Not on file 1 07/01/2022 Housing Stability Answer Date Recorded What is your housing situation today? I have brendajanina ta 02/28/[address] you [...] Description 03/03/2025 9:30 AM EDT Office Visit [facility] [address] [place] [address] Emilie Davis MD 230 [place] [address] 03/24/2025 11:00 AM EST Clinical Support [facility] 230 [place] [address] Medina Lewis, RN 230 [place] [address] 06/04/2025 3:00 PM EST Office Visit [facility] [address] [place] [address] Merissa Donis, OD 230 [place] [address] documented as of this encounter Visit Diagnoses Diagnosis Gender 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- Primary Pancreatic mass- Primary Unspecified disease of pancreas documented in this encounter Additional Health Concerns Assessment Noted Time PHQ-9 Depression Total Score: 3 04/30/20 23 9:17 AM EST documented as of this encounter Care Teams Skin Peeling Machine Operator Relationship Specialty Start Date End Date Emilie Davis MD 230 [place] [address] PCP - General Family Medicine 05/13/18 Morales Echavarria FNP 230 [place] [address] Nurse Practitioner Family Medicine 04/16/23 Pam Aida [address] [place] [address] Gastroenterology 05/26/24 Frde Castanon [address] [place] [address] 07/21/24 Ele Mar MD [address] [place] [address] Hematology and Oncology 02/22/25 Marina Brown MD Rheumatology 02/10/25 documented as of this encounter
--- OUTSIDE RECORDS SUMMARY | 2025-02-23 17:54 | XMS_ITS | Encounter Summary ---
Author Organization [employer] Address [address] [facility] [address] [place] [address] Care Team Providers Care Professional Application Designer Name Role Phone Emilie Davis MD Primary Care Provider [phone] Morales Echavarria Unavailable Unavailable August Unavailable Fred Castanon Unavailable Ele Mar MD Unavailable [phone] Reason for Visit * Reason Onset Date Comments Referral 07/20/2024 Encounter Details Date Type Department Care Team (Late st Contact Info) Description 07/20/2024 Telephone [facility] 230 [place], [place] [phone] Emilie Davis MD 230 [place], [place] [phone] Referral Social History Tobacco Use Types Packs/Day [...] 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 Contact pt at [phone] documented in this encounter Plan of Treatment Upcoming Encounters Date Type Department Care Team (Late st Contact Info) Description 03/03/2025 9:30 AM EDT Office Visit [facility] [address] [place] [address] Emilie Davis MD [address] [place] [address] 03/24/2025 11:00 AM EST Clinical Support [facility] [address] [place] [address] Medina Lewis, RN 230 [place] [address] 06/04/2025 3:00 PM EST Office Visit [facility] [address] [place] [address] Merissa Donis, OD 230 [place] [address] documented as of this encounter Visit Diagnoses Not on filedocumented in this encounter Additional Health Concerns Assessment Noted Time PHQ-9 Depression Total Score: 3 04/30/20 9:17 AM EST documented as of this encounter Care Teams Professional Application Designer Relationship Specialty Start Date End Date Emilie Davis MD 230 [place] [address] PCP - General Family Medicine 05/13/18 Morales Echavarria FNP [address] [place] [address] Nurse Practitioner Family Medicine 04/16/23August [address] [place] [address] Gastroenterology 05/26/24 Fred Castanon [address] [place] [address] 07/21/24 Ele Mar MD [address] [place] [address] Hematology and Oncology 02/22/25 Marina Brown MD Rheumatology 02/10/25 documented as of this encounter
--- OUTSIDE RECORDS SUMMARY | 2025-02-23 17:54 | XMS_ITS | Clinical Summary ---
Author Organization [facility] Address [address] [employer] [address] [address] Phone Care Team Providers Care Snowboarding Instructor Name Role Phone Emilie Davis MD [...] 2025 09/14/2020 Adult Td,Tdap Booster 06/18/2029 06/18/2019 RSV VACCINE (1 - 1-dose 75+ series) 02/12/2044 HEPATITIS A VACCINES Aged Out No long [...] ACO C3 ACO C3 ACO C[address] [facility] [place] [address] [employer] Advance Directives For more information, please contact: [phone] (9AM - 5PM [facility], Saturday-Saturday) * Full Code (Presumed) (Latest Code Status on File) Date Activated Date Inactivated Comments 10/28/2018 9:51 AM 10/28/2018 7:25 PM Care Teams Snowboarding Instructor Relationship Specialty Start Date End Date [place], Emilie Way MD [address] [place] [address] PCP - General Family Medicine 06/03/18 Additional Source Comments The information contained in this document represents components of the legal health record. It is not the complete legal health record.[facility]
--- OUTSIDE RECORDS SUMMARY | 2025-02-23 17:54 | XMS_ITS | Encounter Summary ---
Author Organization [employer] Address [address] [place] [address] Care Team Providers Care Fat Purification Worker Name Role Phone Emilie Davis MD Primary Care Provider [phone] Morales Echavarria Unavailable Unavailable August Unavailable Fred Castanon Unavailable Ele Mar MD Unavailable [phone] Reason for Visit * Reason Comments Transition Of Care (Tcm) Unscheduled Encounter Details Date Type Department Care Team (Late st Contact Info) Description 02/22/2025 Patient Outreach [facility] [address] [place] [address] Emilie Davis MD [address] [place] [phone] Transition Of Care (Tcm) (Unscheduled ) Social History Tobacco Use Types Packs/Day [...] t he electric, gas, oil or water [employer] threatened to shut off services in your [...] 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 Called [facility] andleft detailed message asking for callback to [phone] regarding if pt has appointment in next week. Called [facility], spoke with Ely who states: - Dr. eDutsch reached out to pt x1, did not reach them , will attempt to call back again to discuss result. Dr. Deutsch reached out to Dr. Deleon ([facility] surgical oncology) about result and plans to refer pt there. Dr. Deutsch ordered additional imaging as well. Nursing attempted to reach out to pt and Dr. Deutsch plans to reach out again to discuss diagnosis and plan. Will send FYI to PCP to clarify on plan for oncology ([facility] vs [facility]). * Moira Cruz RN - 02/22/2025 1:17 PM EDT Spoke with Dr. Davis who states pt to follow with [facility] surgical oncology. Faxed FYI to [facility] to make aware, confirmation received. * Moira Cruz RN - 02/22/2025 1:17 PM EDT Incoming call from Princess at [facility] hematology, Dr. Mar aware of result, ticket writer explained to her that pt will be following with [facility] at this point. documented in this encounter Miscellaneous Notes * Significant Event - Shanthi Haji - 02/22/2025 2:31 PM EDT 02/22/25 1327 Hospital Discharges and Admission for [facility] Type of Visit Hospital Admission Date of Admission/Visit 02/18/25 Date of Discharge 02/21/25 Facility [facility] Diagnosis Pancreatic Cancer Disposition Discharged Home Follow-Up Actions Follow-Up Needed Provider appointment Follow-Up Outcome Spoke to Patient Initial Contact Date 02/22/25 CC contacted patient for an HDF. Patient was admitted to [facility] on 02/18/2025 and discharged on 02/21/2025 with diagnosis Pancreatic Cancer. Patient was advised to follow up with provider as soon as possible, unfortunately Dr. Davis has no availability. CC attempted to offer appointment with different provider but soonest available was on 03/03 and patient already has a Follow up with provider onthat day. Please assist on contacting patient as he seems concerned. CC scanned discharge summary into patient's chart. documented in this encounter Plan of Treatment Upcoming Encounters Date Type Department Care Team (Late st Contact Info) Description 03/03/2025 9:30 AM EDT Office Visit [facility] MEDICINE [address] [place] [address] Emilie Davis MD [address] [place] [address] 03/24/2025 11:00 AM EST Clinical Support [facility] MEDICINE [address] [place] [address] Medina Lewis, RONALD [address] [place] [address] 06/04/2025 3:00 PM EST Office Visit [facility] OPTOMETRY [address] [place] [address] Merissa Donis OD [address] [place] [address] documented as of this encounter Visit Diagnoses Not on filedocumented in this encounter Additional Health Concerns Assessment Noted Time PHQ-9 Depression Total Score: 3 04/30/20 9:17 AM EST documented as of this encounter Care Teams Fat Purification Worker Relationship Specialty Start Date End Date Emilie Davis MD [address] [place] [address] PCP - General Family Medicine 05/13/18 Morales Echavarria FNP [address] [place] [address] Nurse Practitioner Family Medicine 04/16/23 Aida Orozco [address] [place] [address] Gastroenterology 05/26/24 Fred Castanon [address] [place] [address] 07/21/24 Ele Mar MD [address] [place] [address] Hematology and Oncology 02/22/25 Marina Brown MD Rheumatology 02/10/25 documented as of this encounter
--- OUTSIDE RECORDS SUMMARY | 2025-02-23 17:54 | XMS_ITS | Encounter Summary ---
Author Organization [employer] Address [address] [place] [address] Care Team Providers Care Cancer Center Director Name Role Phone Emilie Davis MD Primary Care Provider [phone] Morales Echavarria Unavailable Unavailable August Unavailable Fred Castanon Unavailable Ele Mar MD Unavailable [phone] Reason for Visit * Reason Onset Date Comments Hospital Follow-up 02/22/2025 Encounter Details Date Type Department Care Team (Late st Contact Info) Description 02/22/[address] 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 Hospital: [facility] Date of admission: 02/18 Discharge date: 02/21 Diagnosed: pt did a biopsy and they injured his pancreas *Send message to [facility] Coordinators Contact pt at [phone] documented in this encounter Plan of Treatment Upcoming Encounters Date Type Department Care Team (Late st Contact Info) Description 03/03/2025 9:30 AM EDT Office Visit [facility] MEDICINE [address] [place] [address] Emilie Davis MD [address] [place], [place] [phone] 03/24/2025 11:00 AM EST Clinical Support [facility] [address] [place] [address] Medina Lewis, RN [address] [place] [address] 06/04/2025 3:00 PM EST Office Visit [facility] OPTOMETRY [address] [place] [address] Merissa Donis, OD [address] [place] [address] documented as of this encounter Visit Diagnoses Not on filedocumented in this encounter Additional Health Concerns Assessment Noted Time PHQ-9 Depression Total Score: 3 04/30/20 9:17 AM EST documented as of this encounter Care Teams Cancer Center Director Relationship Specialty Start Date End Date Emilie Davis MD [address] [place] [address] PCP - General Family Medicine 05/13/18 Morales Echavarria FNP [address] [place] [address] Nurse Practitioner Family Medicine 04/16/23August [address] [address] Gastroenterology 05/26/24 Ferd Castanon [address] [place] [phone] 07/21/24 Ele Mar MD [address] [place] [address] Hematology and Oncology 02/22/25 Marina Brown MD Rheumatology 02/10/25 documented as of this encounter
--- OUTSIDE RECORDS SUMMARY | 2025-02-23 17:54 | XMS_ITS | Encounter Summary ---
Author Organization [employer] [facility] Address [address] [place] [address] Care Team Providers Care Serology Technician Name Role Phone Emilie Davis MD Primary Care Provider [phone] Morales Echavarria Unavailable Unavailable August Unavailable Fred Castanon Unavailable Ele Mar MD Unavailable [phone] Reason for Visit * Reason Onset Date Comments Referral 07/18/2022 Encounter Details Date Type Department Care Team (Late st Contact Info) Description 07/18/2022 Telephone [facility] MEDICINE [address] [place] [address] Emilie Davis MD [address] [place] [address] Referral Social History Tobacco Use Types Packs/Day [...] [facility]. Please contact pt [phone] documented in this encounter Plan of Treatment Upcoming Encounters Date Type Department Care Team (Late st Contact Info) Description 03/03/2025 9:30 AM EDT Office Visit [facility] MEDICINE [address] [place] [address] Emilie Davis MD [address] [place] [address] 03/24/2025 11:00 AM EST Clinical Support [facility] MEDICINE [address] [place] [address] Medina Lewis, RONALD [address] [place] [address] 06/04/2025 3:00 PM EST Office Visit [facility] OPTOMETRY [address] [place] [address] Merissa Donis, OD [address] [place] [address] documented as of this encounter Visit Diagnoses Not on filedocumented in this encounter Care Teams Serology Technician Relationship Specialty Start Date End Date Emilie Davis MD [address] [place] [address] PCP - General Family Medicine 05/13/18 Morales Echavarria FNP [address] [place] [address] Nurse Practitioner Family Medicine 04/16/23August [address] [place] [address] Gastroenterology 05/26/24 Fred Castanon [address] [place] [address] 07/21/24 Ele Mar MD [address] [place] [address] Hematology and Oncology 02/22/25 Marina Brown MD Rheumatology 02/10/25 documented as of this encounter
--- OUTSIDE RECORDS SUMMARY | 2025-02-23 17:54 | XMS_ITS | Encounter Summary ---
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 Not on file Not on file documented as of this encounter Plan of Treatment Upcoming Encounters Date Type Department Care Team (Late st Contact Info) Description 03/03/2025 9:30 AM EDT Office Visit [facility] MEDICINE [address] [place] [address] Emilie Davis MD [address] [place] [address] 03/24/2025 11:00 AM EST Clinical Support [facility] MEDICINE [address] [place] [address] Medina Lewis, RONALD [address] [place] [address] 06/04/2025 3:00 PM EST Office Visit [facility] OPTOMETRY [address] [place] [address] Merissa Donis, OD [address] [place] [address] documented as of this encounter Procedures Procedure Name Priority Date/Time Associated Diagnosis Comments CT ABDOMEN PELVIS W CONTRAST Routine 02/18/2025 9:22 PM EDT LACTIC ACID Routine 02/18/2025 8:25 PM EDT CBC WITH AUTO DIFFERENTIAL Routine 02/18/2025 3:28 PM EDT LIPASE Routine 02/18/2025 3:28 PM EDT LD Routine 02/18/2025 3:28 PM EDT AMYLASE Routine 02/18/2025 3:28 PM EDT documented in this encounter Results * CT Abdomen Pelvis w/ Contrast (02/18/2025 9:22 PM EDT) Anatomical Region Laterality Modality Body, Pelvis, Abdomen Computed T omography 02/18/2025 9:22 PM EDT Narrative 02/18/2025 9:23 PM EDT [place] [address] [address] Scan Report Signed Patient: Harriet Valdez MR#: [id number] : 1970 Acct:[id number] Age/Sex: 55 / F ADM Date: 02/18/25 Loc: HO.ED Attending Dr: Ordering Physician: Bradford Rojas Date of Service: 02/18/25 Procedure(s): CT abdomen pelvis w IV con Accession Number(s): [id number] cc: Emilie Davis MD; Bradford Rojas Report Number: [id number]: Total DLP = 284.00 mGy-cm Reason for Exam: ad pain severe CLINICAL HISTORY: ad pain severe CT abdomen and pelvis with contrast Comparison: MR - MR ABDOMEN WO/W CON - 01/19/25 10:[address]/SR - CT ABDOMEN PELVIS WITH IV CONTRAST - 12/29/24 12:55 EDT Findings: The lung bases are clear. Calcified granuloma in the posterior right lower lobe. Status post cholecystectomy. Mild intrahepatic biliary tree dilation, more pronounced on the left, progressed from 12/29/2024 CT but accounting for differences in modality, essentially stable from 01/19/2025 MRI. The common bile duct is distended to 1.7 cm. It measured 1 cm on 01/19/2025 MRI. No radiopaque biliary stones are seen. As noted on MRI of the abdomen, there is a 2.7 x 1.6 cm mass near the head of the pancreas /uncinate processthat may be part of the pancreas or alternatively a peripancreatic lymph node (series 3, image 32). Pancreatic duct is not significantly dilated. The portal mesenteric venous confluence is compressed by the mass but the portal, mesenteric, and splenic veins are patent. Other solid organs are unremarkable. No bowel obstruction, pneumoperitoneum, or pneumatosis. Colonic diverticulosis without evidence of diverticulitis. Normal appendix. Urinary bladder is underdistended limiting evaluation. The uterus appears surgically absent. the bones are intact. IMPRESSION: 2.7 x 1.6 cm mass near the head of the pancreas/uncinate process that may be part of the pancreas or a large peripancreatic lymph node resulting in mild intrahepatic biliary tree dilation and severe dilation of the common bile duct, which measures 1.7 cm, increased from 01/19/2025 MRI. Again advise GI consultation for consideration of ERCP /EUS guided biopsy of pancreatic mass/peripancreatic lymph node. The portal mesenteric venous confluence is compressed by the mass but the portal, mesenteric, and splenic veins are patent. This document has been electronically signed by: Que Colon MD on 02/18/2025 21:22:17 Dictated By: Que Colon MD Signed By: <Electronically signed by Que Colon MD in OV> 02/18/252121 DD/ 21 TD/TT: 02/18/252121 Wire Threader: Procedure Note Donotuseinterpreter, Image - 02/18/[address] [place] [address] [address] Scan Report Signed Patient: Harriet Valdez#: [id number] : 1970Acct:[id number] Age/Sex: 55 / FADM Date: 02/18/25 Loc: HO.ED Attending Dr: Ordering Physician: Bradford Rojas Date of Service: 02/18/25 Procedure(s): CT abdomen pelvis w IV con Accession Number(s): [id number] cc: Emilie Davis MD; Bradford Rojas Report Number: [id number]: Total DLP = 284.00 mGy-cm Reason for Exam: ad pain severe CLINICAL HISTORY: ad pain severe CT abdomen and pelvis with contrast Comparison: MR - MR ABDOMEN WO/W CON - 01/19/25 10:[address]/SR - CT ABDOMEN PELVIS WITH IV CONTRAST - 12/29/24 12:55 EDT Findings: The lung bases are clear. Calcified granuloma in the posterior right lower lobe. Status post cholecystectomy. Mild intrahepatic biliary tree dilation, more pronounced on the left, progressed from 12/29/2024 CT but accounting for differences in modality, essentially stable from 01/19/2025 MRI. The common bile duct is distended to 1.7 cm. It measured 1 cm on 01/19/2025 MRI. No radiopaque biliary stones are seen. As noted on MRI of the abdomen, there is a 2.7 x 1.6 cm mass near the head of the pancreas /uncinate processthat may be part of the pancreas or alternatively a peripancreatic lymph node (series 3, image 32). Pancreatic duct is not significantly dilated. The portal mesenteric venous confluence is compressed by the mass but the portal, mesenteric, and splenic veins are patent. Other solid organs are unremarkable. No bowel obstruction, pneumoperitoneum, or pneumatosis. Colonic diverticulosis without evidence of diverticulitis. Normal appendix. Urinary bladder is underdistended limiting evaluation. The uterus appears surgically absent. the bones are intact. IMPRESSION: 2.7 x 1.6 cm mass near the head of the pancreas/uncinate process that may be part of the pancreas or a large peripancreatic lymph node resulting in mild intrahepatic biliary tree dilation and severe dilation of the common bile duct, which measures 1.7 cm, increased from 01/19/2025 MRI. Again advise GI consultation for consideration of ERCP /EUS guided biopsy of pancreatic mass/peripancreatic lymph node. The portal mesenteric venous confluence is compressed by the mass but the portal, mesenteric, and splenic veins are patent. This document has been electronically signed by: Que Colon MD on 02/18/2025 21:22:17 Dictated By: Que Colon MD Signed By: <Electronically signed by Que Colon MD in OV> 02/18/252121 DD/ 21 TD/TT: 02/18/252121 Wire Threader: [facility] External Provider IMG CT PROCEDURES Edited Result - Final * Lactic Acid (02/18/2025 8:25 PM EDT) Lactic Acid 0.9 0.5 - 2.0 mmol/L [facility] 02/18/2025 8:25 PM EDT 02/18/2025 8:28 PM EDT Generic External Data Provider LAB BLOOD ORDERAB LES Final Result Performing Organization Address [facility]/ZIP Co de Phone Number [facility] [address] [place] [phone] * Lipase (02/18/2025 3:28 PM EDT) Lipase 40 8 - 78 U/L [facility] 02/18/2025 3:28 PM EDT 02/18/2025 3:28 PM EDT Generic External Data Provider LAB BLOOD ORDERAB LES Final Result Performing Organization Address [facility] Co de Phone Number [facility] [address] [place] [phone] * (ABNORMAL) Amylase (02/18/2025 3:28 PM EDT) Amylase 113(H) 28 - 100 U/L [facility] 02/18/2025 3:28 PM EDT 02/18/2025 3:28 PM EDT Generic External Data Provider LAB BLOOD ORDERAB LES Final Result Performing Organization Address [facility] Co de Phone Number [facility] [address] [place] [phone] * (ABNORMAL) Lactate Dehydrogenase (LD) (02/18/2025 3:28 PM EDT) Lactate Dehydrogenase 743(H) 122 - 220 U/L [facility] 02/18/2025 3:28 PM EDT 02/18/2025 3:28 PM EDT us Generic External Data Provider LAB BLOOD ORDERAB LES Final Result Performing Organization Address City/State/[facility] Co de Phone Number [facility] [address] [place] [phone] * (ABNORMAL) CBC auto differential (02/18/2025 3:28 PM EDT) Pathologist [facility] White Blood Count 16.6(H) 4.8 - 10.8 X10*3/uL [facility] Red Blood Count 5.08 4.20 - 5.50 X10*6/uL [facility] Hemoglobin 14.7 12.0 - 16.0 g/dl [facility] Hematocrit 44.9 37.0 - 47.0 % [facility] Mean Corpuscular Volume 88.4 80.0 - 98.0 fL [facility] Mean Corpuscular Hemoglobin 28.9 27.0 - 33.0 pg [facility] Mean Corpuscular HGB Conc 32.7 31.0 - 35.0 g/dl [facility] Red Cell Distribution Width 14.3 11.0 - 16.0 % [facility] Platelet Count 364 160 - 400 X10*3/uL [facility] Mean Platelet Volume 8.9(L) 9.4 - 12.3 fL [facility] Neutrophils Percent Auto 80.6(H) 45 - 73 % [facility] Imm Gran Pct Auto 0.4 0.0 - 0.4 % [facility] Lymphocytes Percent Auto 13.1(L) 20 - 40 % [facility] Monocytes Percent Auto 5.5 2 - 11 % [facility] Eosinophils Percent Auto 0.2 0 - 4 % [facility] Basophils Percent Auto 0.2 0 - 2 % [facility] NRBC Pct Auto 0.0 0.0 - 0.2 /100WBC [facility] Neutrophils Absolute Auto 13.3(H) 2.0 - 8.3 x10*3/uL [facility] Imm Gran Abs Auto 0.07(H) 0.00 - 0.03 X10*3/uL [facility] Lymphocytes Absolute Auto 2.2 1.2 - 4.9 X10*3/uL [facility] Monocytes Absolute Auto 0.9 0.1 - 1.2 X10*3/uL [facility] Eosinophils Absolute Auto 0.0 0.0 - 0.4 X10*3/uL [facility] Basophils Absolute Auto 0.0 0.0 - 0.2 X10*3/uL [facility] NRBC Abs Auto 0.000 0.0 - 0.012 X10*3/uL [facility] 02/18/2025 3:28 PM EDT 02/18/2025 3:28 PM EDT us Generic External Data Provider LAB BLOOD ORDERAB LES Final Result Performing Organization Address City/State/[facility] Co de Phone Number [facility] [address] [place] [phone] documented in this encounter Visit Diagnoses Not on filedocumented in this encounter Additional Health Concerns Assessment Noted Time PHQ-9 Depression Total Score: 3 04/30/20 23 9:17 AM EST documented as of this encounter Care Teams Instructional Aide Relationship Specialty Start Date End Date Emilie Davis MD [address] [place] [phone] PCP - General Family Medicine 05/13/18 Morales Echavarria FNP [address] [place] [address] Nurse Practitioner Family Medicine 04/16/[address]rd [place] [address] Gastroenterology 05/26/24 Fred Catsanon [address] [place] [address] 07/21/24 Marina Brown MD Rheumatology 02/10/25 documented as of this encounter
--- OUTSIDE RECORDS SUMMARY | 2025-02-23 17:54 | XMS_ITS | Clinical Summary ---
Author Organization [employer] Address [address] [place] [address] Care Team Providers Care Hired Hand Name Role Phone Emilie Davis MD Primary Care Provider [phone] Morales Echavarria Unavailable Unavailable August Unavailable Fred Castanon Unavailable Ele Mar MD Unavailable [phone] Allergies Active Allergy Reactions Criticality Noted Date Comments Penicillins Anaphylaxis,Rash High 05/16/2017 Sumatriptan 10/28/2018 Medications * This document contains information received from the source organization and may not represent a complete record from that organization. Needle, Disp, (BD Disp [place]) 25G X 5/8 miscIndications :Gender dysphoria in [...] 25 Active cholecalciferol (Vitamin D-3) 1.25 MG (21501 UT) capsule Take 1 capsule by mouth [...] Active Problems Problem Noted Date Diagnosed Date Chronic bilateral low back pain 02/10/2025 Overview (02/10/2025): -MRI 02/09/25 MR/MR lumbar spine wo con IMPRESSION: Multilevel lumbar spondylosis, L2-3 to L5-S1 pronounced at L3-4 and L4-5. Broad-based left subarticular and foraminal herniated disc at L3-4 and to a lesser extent L2-3 encroaching the exiting nerve roots. Overall slight worsening at L2-3 levels Pancreatic mass 01/21/2025 Overview (02/22/2025): -MRI done in ER 01/21/25 Impression: Pancreatic mass of dorsal head/uncinate process is compressing on distal CBD and causing moderate to severe stenosis, mild upstream intrahepatic and extrahepatic bile duct dilatation, concerning for malignancy. Recommend chain maker loom control consultation, ERCP and tissue sampling. -GI note [...] would be able to make it to [facility] if we can get him in there and I think that is the better facility for the fci treatment plan. They also would be a quick to do an esophageal manometry to tease out potential achalasia. Endoscopies have never show any stricture or reason for the dysphagia but there does appear to be a significant esophageal movement problem. -Pt is scheduled for EUS and ERCP with Dr. Deutsch at [facility] on February 18, arrival time 7am and prcedure is at 8am. Vanessa is aware of the date and time. -biopsy from [facility] 02/18/25 adenocarcinoma Idiopathic acute pancreatitis without infection or necrosis 12/31/2024 Overview (12/31/2024): -dx at [facility] 12/2024 Patient admitted to general [...] tonsils/cerebellar tonsil ectopia -seen by flor Rodriguez, SHAPER OPERATOR 09/24/24 As patient has new onset left-sided [...] XR 05/20/24 Coronary artery disease invo lving [place] heart without angina pectoris 05/20/2024 Overview (10/15/2024): Hx NSTE MO 09/2017 -continue oscar -Stress test without evidence [...] test reported separately. Acquired syphilis 03/23/2024 Overview (02/17/2025): Lab Results Component Value Date SYPHILISSCRE Reactive (A) 03/18/2024 TREPPALAB Reactive (A) 03/18/2024 RPRQUANT Non-Reactive 03/18/2024 -03/2024 call from Holli at [facility] who reports pt originally positive for syphilis in [place] 09/18/1990 (RPR of 1:4) and was treated. Had follow up testing july 1993 where RPR was nonreactiven as well. This is old infection. No Tx needed at this time. Dyslipidemia 09/18/2023 Overview (03/16/2024): Lab Results Component [...] due after 03/16/2025 -eye care facilitated by [facility]. -dental home is [facility] -health care proxy filed 03/16/24 Assessment & Plan (03/17/2024 6:12 AM EST): -next physical exam due after 03/16/2025 -eye care facilitated by [facility]. -dental home is [facility] -health care proxy filed 03/16/24 Assessment & Plan (03/22/2023 9:17 AM EST): -next physical exam due after 12/07/2023. -eye care facilitated by [facility]. -dental home is outside of [facility] Assessment & Plan (12/06/2022 10:19 AM EDT): -next physical exam dueafter 12/07/2023. -eye care facilitated by [facility]. -dental home is outside of [facility] Hx of hepatitis C 11/26/2022 Overview [...] symptoms same or worse Arthritis 06/25/2021 Overview (02/10/2025): X rays suggests osteoarthritis. Seen by rheumatology in [place]. Ibuprofen and NSAIDs cause gastritis. Minimal relief with acetaminophen. He was referred back to rheumatology in [place] 08/23/2020 but provider left the area. started on Tramadol. Take 3 times per week. He is not taking at this time -note from expressive music therapist Dr. Marina Brown MD from 02/09/25 reviewed Assessment & Plan (03/17/2024 6:08 AM EST): X rays suggests osteoarthritis. Seen by rheumatology in [place]. Ibuprofen and NSAIDs cause gastritis. Minimal relief with acetaminophen. He was referred back to rheumatology in [place] 08/23/2020 but provider left the area. started on Tramadol. Take 3 times per week. He is not taking at this time. Assessment & Plan (03/22/2023 9:15 AM EST): X rays suggests osteoarthritis. Seen by rheumatology in [place]. Ibuprofen and NSAIDs cause gastritis. Minimal relief with acetaminophen. He was referred back to rheumatology in [place] 08/23/2020 but provider left the area. started on Tramadol. Take 3 times per week. Will need COT in the future. Assessment & Plan (12/06/2022 8:54 AM EDT): X rays suggests osteoarthritis. Seen by rheumatology in [place]. Ibuprofen and NSAIDs cause gastritis. Minimal relief with acetaminophen. He was referred back to rheumatology in [place] 08/23/2020 but provider left the area. started on Tramadol. Take 3 times per week. Will need COT in the future. Assessment & Plan (10/11/2022 9:58 AM EDT): X rays suggests osteoarthritis. Seen by rheumatology in [place]. Ibuprofen and NSAIDs cause gastritis. Minimal relief with acetaminophen. He was referred back to rheumatology in [place] 08/23/2020 but provider left the area. started [...] Now with palpitations. Will refer to his power transformer assembler for bradycardia. Assessment & Plan (03/22/2023 9:16 AM EST): Sinus bradycardia and asymptomatic. Pt states he always has slow heart rate Pt repots heart rate in 40s recorded with home BP monitor with symptoms of dizziness recorded at home. Now with palpitations. Will refer to his power transformer assembler for bradycardia. Assessment & Plan (12/06/2022 8:54 AM EDT): Sinus bradycardia and asymptomatic. Pt states he always has slow heart rate Pt repots heart rate in 40s recorded with home BP monitor with symptoms of dizziness recorded at home. Now with palpitations. Will refer to his power transformer assembler for bradycardia. Assessment & Plan (10/11/2022 9:58 AM EDT): Sinus bradycardia and asymptomatic. Pt states he always has slow heart rate Pt repots heart rate in 40s recorded with home BP monitor with symptoms of dizziness recorded at home. Now with palpitations. Will refer to his power transformer assembler for bradycardia. Generalized abdominal pain 06/25/2021 Overview [...] Insurance no longer accepted at [facility]. -EGD scheduled for December 2021. -10/19/24 IMPRESSION: Normal 4-hour solid food gastric emptying study. -note from August Pam 10/21/24 reveiwed [place] gastric emptying study [place] barium swallow H pylori Ag Stool ordered -note from August Pam 12/04/24 Kaushik almeida increased -esophageal barium swallow 01/13/25 ordered by Aida CALDERON IMPRESSION: High- grade stenosis/narrowing distal esophagus likely [...] Insurance no longer accepted at [facility]. -EGD scheduled for December 2021. Assessment & [...] Insurance no longer accepted at [facility]. -EGD scheduled for December 2021. Assessment & [...] Insurance no longer accepted at [facility]. -EGD scheduled for December 2021. Assessment & [...] Insurance no longer accepted at [facility]. -EGD scheduled for December 2021. History of non-ST elevation myocardial infarctio n (NSTEMI) 06/25/2021 Overview (10/15/2024): Hx NSTE MO 09/2017. See CAD for plan. Assessment & Plan (05/20/2024 4:29 PM EST): Hx NSTE MO 09/2017 -continue oscar -Stress test without evidence of ischemia 04/08/18 -he held statin and ASA due to GI upset -trial of restarting statin 01/[address] on 05/08/24 showed Coronary artery atherosclerosis. Pt wants to get reestablished with cardiology. -referral sent 05/20/24 Assessment & Plan (03/22/2023 9:17 AM EST): Hx NSTE MO 09/2017 -continue oscar -Stress test without evidence of ischemia 04/08/18 -he held statin and ASA due to GI upset -trial of restarting statin 01/2019 Assessment & Plan (12/06/2022 8:55 AM EDT): Hx NSTE MO 09/2017 -continue oscar -Stress test without evidence of ischemia 04/08/18 -he held statin and ASA due to GI upset -trial of restarting statin 01/2019 Assessment & Plan (10/11/2022 9:57 AM EDT): Hx NSTE MO 09/2017 -continue oscar -Stress test without evidence of ischemia 04/08/18 -he held statin and ASA due to GI upset -trial of restarting statin 01/2019 Seasonal allergies 06/25/2021 Gender 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 10/03/2018 Overview (03/26/2024): Pt identifies as male and is changed his name in [place] October 2020. -He restarted testosterone 08/2020 -S/p chest reconstruction 10/2018 -Testosterone was 654 on 10/2022 Lab Results Component Value Date TESTTOTAL 1641 (A) 03/18/2024 HGB 16.2 (H) 03/18/2024 HGB 15.8 10/18/2022 HCT 47.3 (H) 03/18/2024 Goal testosterone levels 350-700ng/dl. Assessment & Plan (03/17/2024 6:12 AM EST): Pt identifies as male and is changing his name in [place] October 2020. He restarted testosterone 08/2020 S/p chest reconstruction 10/2018 Pt would like to switch small needle to subcutaneous instead. 25 gague needles sent 12/06/2022 Testosterone was 654 on 10/2022. Assessment & Plan (03/22/2023 9:16 AM EST): Pt identifies as male and is changing his name in [place] October 2020. He restarted testosterone 08/2020 S/p chest reconstruction 10/2018 Pt would like to switch small needle to subcutaneous instead. 25 gague needles sent 12/06/2022 Testosterone was 654 on 10/2022. Assessment & Plan (12/06/2022 11:18 AM EDT): Pt identifies as male and is changing his name in [place] October 2020. He restarted testosterone 08/2020 S/p chest reconstruction 10/2018 Pt would like to switch small needle to subcutaneous instead. 25 gague needles sent 12/06/2022 Testosterone was 654 on 10/2022. Assessment & Plan (10/11/2022 9:59 AM EDT): Pt identifies as male and is changing his name in [place] October 2020. He restarted testosterone 08/2020 S/p chest reconstruction 10/[address] scan, lung 10/04/2017 Overview (05/20/2024): -Ct scan in [facility] on 12/25/2017 showed multiple indeterminate [...] 11/15/23 and NO SHOW. Pt can call [phone] to schedule mariely. number given to call 03/16/24 -CT 05/08/24 No acute intrathoracic findings. Calcified granulomas present bilaterally. No suspicious pulmonary nodule identified. Air-fluid level present within the midthoracic esophagus can be associated with gastroesophageal reflux disease and esophageal dysmotility. Coronary artery atherosclerosis. Assessment & Plan (05/20/2024 4:05 PM EST): -Ct scan in [place] ER on 12/25/2017 showed multiple indeterminate nodules, [...] 11/15/23 and NO SHOW. Pt can call [phone] to schedule mariely. number given to call 03/16/24 -CT 05/08/24 No acute intrathoracic findings. Calcified granulomas present bilaterally. No suspicious pulmonary nodule identified. Air-fluid level present within the midthoracic esophagus can be associated with gastroesophageal reflux disease and esophageal dysmotility. Coronary artery atherosclerosis. Assessment & Plan (03/17/2024 6:13 AM EST): -Ct scan in [place] ER on 12/25/2017 showed multiple indeterminate nodules, [...] 11/15/23 and NO SHOW. Pt can call [phone] to schedule mariely. number given to call 03/16/24 Assessment & Plan (03/22/2023 9:16 AM EST): -Ct scan in [place] ER on 12/25/2017 showed multiple indeterminate nodules, largest was solid and measured 2mm. -Given that the Pt has a tobacco Hx and quit in 2018 we referrred to pulmonology that was likely distrupted by the pandemic. -Will ordered repeat CT of chest to follow the nodles. Assessment & Plan (12/06/2022 10:18 AM EDT): -Ct scan in [place] ER on 12/25/2017 showed multiple indeterminate nodules, [...] and frequency. Emotions were normalized and validated. [place] identified dancing as coping mechanisms and protective [...] referred for OP services and referral to [facility] Psychopharmacology clinic. Provided Crisis contact number [...] organization. Date Type Department Care Team Description 02/23/2025 Patient Outreach [address] [phone] Emilie Davis MD Pre-visit Planning (Pre-visit planning - LVM ) 02/22/2025 Patient Outreach [facility] [address] [place], [place] [phone] Emilie Davis MD Transition Of Care (Tcm) (Unscheduled ) 02/22/[address] [phone] Emilie Davis MD Hospital Follow-up 02/19/2025 Orders Only [place] [facility] [address] [place] [address] [phone] Sammy Dowd MD 02/19/[address] [phone] Emilie Davis MD 02/18/2025 Orders Only GENERIC EXTERNAL DATA DEPARTMENT Marcel Dowd External Data 02/16/[address] [address] Medina Lewis, RN 02/09/2025 Orders Only [facility] External Provider, [facility] Chronic bilateral low back pain, unspecified whether sciatica present (Primary Dx) 02/05/2025 Orders Only [address] [address] Emilie Davis MD Depression, unspecified depression type (Primary Dx) 02/04/[address] [address] Emilie Davis MD Care Coordination; Referral 02/04/[address] [address] Emilie Davis MD Referral; Care Coordination 02/02/2025 Orders Only [address] [address] Kayla Sellers RN 02/01/2025 Orders Only GENERIC EXTERNAL DATA DEPARTMENT Provider, Generic External Data 01/27/2025 11:00 AM EDT Clinical Support [address] [address] Medina Lewis, RN On pre-exposure prophylaxis for HIV (Primary Dx) 01/27/2025 Orders Only [address] [address] Emilie Davis MD 01/27/2025 Travel 01/21/2025 Travel 01/19/2025 Orders Only [facility] External Provider, [facility] Pancreatic mass (Primary Dx) 01/15/2025 Orders Only GENERIC EXTERNAL DATA DEPARTMENT Provider, Generic External Data 01/14/2025 Orders Only [facility] External Provider, [facility] Generalized abdominal pain (Primary Dx) 01/08/2025 Orders Only GENERIC EXTERNAL DATA DEPARTMENT Provider, Generic External Data 01/07/[address] [address] Emilie Davis MD Call Back Request; Injectable PrEP Communication 01/04/2025 Patient Outreach [address] [address] Emilie Davis MD Transition Of Care (Tcm) (HDF unscheduled) 01/04/[address] [address] Emilie Davis MD Nurse Triage 01/04/[address] [address] Emilie Davis MD Hospital Follow-up; No Show (Pt no show for hdf ) 12/29/2024 Orders Only GENERIC EXTERNAL DATA DEPARTMENT Provider, Generic External Data 11/26/2024 9:30 AM EDT Clinical Support [address] [address] Medina Lewis, RONALD On pre-exposure prophylaxis for HIV (Primary Dx) 11/26/2024 Orders Only [address] [address] Emilie Davis MD 11/26/2024 Travel 11/26/[address] [address] Emilie Davis MD Appointment Request 11/25/[address] [address] Emilie Davis MD February recall from Last 3 Months Immunizations Immunization Administration [...] 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 Not on file [...] Description 03/03/2025 9:30 AM EDT Office Visit [facility] MEDICINE [address] [place] [address] Emilie Davis MD [address] [place] [address] 03/24/2025 11:00 AM EST Clinical Support [facility] [address] [place] [address] Medina Lewis, RONALD [address] [place] [address] 06/04/2025 3:00 PM EST Office Visit [facility] OPTOMETRY [address] [place] [address] Merissa Donis, OD [address] [place] [address] Health Maintenance Due Date Last Done Comments [...] LACTIC ACID Routine 02/18/2025 8:25 PM EDT LIPASE Routine 02/18/2025 3:28 PM EDT AMYLASE Routine 02/18/2025 3:28 PM EDT LD Routine 02/18/2025 3:28 PM EDT CBC WITH AUTO DIFFERENTIAL Routine 02/18/2025 3:28 PM EDT EGD Routine 02/18/2025 2:59 PM EDT MR LUMBAR SPINE WO CONTRAST Routine 02/09/2025 6:20 PM EDT HIV 1 RNA, QUANTITATIVE REAL [...] Recently Relevant to Health Maintenance Results * CT Abdomen Pelvis w/ Contrast (02/18/2025 9:22 PM EDT) Only the most recent of2 resultswithin the time period is included. Anatomical Region Laterality Modality Body, Pelvis, Abdomen Computed T omography 02/18/2025 9:22 PM EDT Narrative 02/18/2025 9:23 PM EDT [address] [address] [address] Scan Report Signed Patient: Harriet Valdez MR#: [id number] : 1970 Acct:[id number] Age/Sex: 55 / F ADM Date: 02/18/25 Loc: HO.ED Attending Dr: Ordering Physician: Bradford Rojas Date of Service: 02/18/25 Procedure(s): CT abdomen pelvis w IV con Accession Number(s): [id number] cc: Emilie Davis MD; Bradford Rojas Report Number: [id number]: Total DLP = 284.00 mGy-cm Reason for [...] in OV> 02/18/252121 DD/ 21 TD/TT: 02/18/252121 Senior Speech Pathologist: Procedure Note Donotuseinterpreter, Image - 02/18/[address] [place] [address] [address] Scan Report Signed Patient: Harriet ValdezMR#: [id number] : 1970Acct:[id number] Age/Sex: 55 / FADM Date: 02/18/25 Loc: HO.ED Attending Dr: Ordering Physician: Bradford Rojas Date of Service: 02/18/25 Procedure(s): CT abdomen pelvis w IV con Accession Number(s): [id number] cc: Emilie Davis MD; Bradford Rojas Report Number: [id number]: Total DLP = 284.00 mGy-cm Reason for [...] in OV> 02/18/252121 DD/ 21 TD/TT: 02/18/252121 Senior Speech Pathologist: [facility] External Provider IMG CT PROCEDURES Edited Result - Final * Lactic Acid (02/18/2025 8:25 PM EDT) Pathologist [facility] Lactic Acid 0.9 0.5 - 2.0 mmol/L [facility] 02/18/2025 8:25 PM EDT 02/18/2025 8:28 PM EDT Generic External Data Provider LAB BLOOD ORDERAB LES Final Result [facility] [address] [place] [phone] * (ABNORMAL) CBC auto differential (02/18/2025 3:28 PM EDT) Only the most recent of4 resultswithin the time period is included. White Blood Count 16.6(H) 4.8 - 10.8 X10*3/uL [facility] Red Blood Count 5.08 4.20 - 5.50 X10*6/uL [facility] Hemoglobin 14.7 12.0 - 16.0 g/dl [facility] Hematocrit 44.9 37.0 - 47.0 % [facility] Mean Corpuscular Volume 88.4 80.0 - 98.0 fL [facility] Mean Corpuscular Hemoglobin 28.9 27.0 - 33.0 pg [facility] Mean Corpuscular HGB Conc 32.7 31.0 - 35.0 g/dl [facility] Red Cell Distribution Width 14.3 11.0 - 16.0 % [facility] Platelet Count 364 160 - 400 X10*3/uL [facility] Mean Platelet Volume 8.9(L) 9.4 - 12.3 fL [facility] Neutrophils Percent Auto 80.6(H) 45 - 73 % [facility] Imm Gran Pct Auto 0.4 0.0 - 0.4 % [facility] Lymphocytes Percent Auto 13.1(L) 20 - 40 % [facility] Monocytes Percent Auto 5.5 2 - 11 % [facility] Eosinophils Percent Auto 0.2 0 - 4 % [facility] Basophils Percent Auto 0.2 0 - 2 % [facility] NRBC Pct Auto 0.0 0.0 - 0.2 /100WBC [facility] Neutrophils Absolute Auto 13.3(H) 2.0 - 8.3 x10*3/uL [facility] Imm Gran Abs Auto 0.07(H) 0.00 - 0.03 X10*3/uL [facility] Lymphocytes Absolute Auto 2.2 1.2 - 4.9 X10*3/uL [facility] Monocytes Absolute Auto 0.9 0.1 - 1.2 X10*3/uL [facility] Eosinophils Absolute Auto 0.0 0.0 - 0.4 X10*3/uL [facility] Basophils Absolute Auto 0.0 0.0 - 0.2 X10*3/uL [facility] NRBC Abs Auto 0.000 0.0 - 0.012 X10*3/uL [facility] 02/18/2025 3:28 PM EDT 02/18/2025 3:28 PM EDT Generic External Data Provider LAB BLOOD ORDERAB LES Final Result Performing Organization Address City/[facility]/ZIP Co de Phone Number [facility] [address] [place] [phone] * Lipase (02/18/2025 3:28 PM EDT) Only the most recent of3 resultswithin the time period is included. Lipase 40 8 - 78 U/L [facility] 02/18/2025 3:28 PM EDT 02/18/2025 3:28 PM EDT Generic External Data Provider LAB BLOOD ORDERAB LES Final Result Performing Organization Address City/[facility]/ZIP Co de Phone Number [facility] [address] [place] [phone] * (ABNORMAL) Lactate Dehydrogenase (LD) (02/18/2025 3:28 PM EDT) Lactate Dehydrogenase 743(H) 122 - 220 U/L [facility] 02/18/2025 3:28 PM EDT 02/18/2025 3:28 PM EDT Generic External Data Provider LAB BLOOD ORDERAB LES Final Result Performing Organization Address City/[facility]/ZIP Co de Phone Number [facility] [address] [place] [phone] * (ABNORMAL) Amylase (02/18/2025 3:28 PM EDT) Only the most recent of2 resultswithin the time period is included. Amylase 113(H) 28 - 100 U/L [facility] 02/18/2025 3:28 PM EDT 02/18/2025 3:28 PM EDT us Generic External Data Provider LAB BLOOD ORDERAB LES Final Result [facility] [address] [place] [phone] * EGD (02/18/2025 2:59 PM EDT) Anatomical Region Laterality Modality Endoscopy Historical Provider MD ENDOSCOPY PROCEDURE ORDER TATUM Final Result * MR Lumbar Spine w/o Contrast (02/09/2025 6:20 PM EDT) Anatomical Region Laterality Modality Spine, L-spine Magnetic Resonan ce 02/09/2025 6:20 PM EDT Narrative 02/10/2025 7:18 AM EDT [address] [address] Magnetic Resonance Report Signed Patient: Harriet Valdez MR#: [id number] : 1970 Acct:[id number] Age/Sex: 54 / F ADM Date: 02/09/25 Loc: HO.MRI Attending Dr: Nakul Velasco MD Ordering Physician: Nakul Velasco MD Date of Service: 02/09/25 Procedure(s): MR lumbar spine wo con Accession Number(s): [id number] cc: Emilie Davis MD; Nakul Velasco MD Reason for Exam: M54.50 - Low back pain, unspecified EXAMINATION: MR LUMBAR SPINE WITHOUT CONTRAST CLINICAL INFORMATION: M 54.50. Low back pain, unspecified. COMPARISON: October 16, 2021. TECHNIQUE: MRI of the lumbar spine was obtained using routine sequences without contrast. FINDINGS: Last rib-bearing vertebra labeled T12. Bone marrow STIR signal in the superior endplate of L5. Multilevel disc desiccation throughout the axial skeleton pronounced at L3-4 and L4-5. Normal alignment. Conus medullaris ends at the inferior endplate of L1 with normal signal. 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 No tethered cord. T11-12: No herniated disc. No neuroforamina stenosis. T12-L1: No disc herniation. No neuroforamina stenosis. L1-2: Broad-based disc bulging. Facet joint and ligamentum flavum hypertrophy. No compression upon neural elements. L2-3: Broad-based left foraminal disc herniation resulting in left neuroforamina narrowing, abutting the left L2 exiting nerve root. Bilateral facet joint hypertrophy as well as ligamentum flavum. No central spinal canal stenosis. L3-4: Broad-based left subarticular and foraminal disc herniation resulting in left neuroforamina stenosis encroaching the left L3 exiting nerve root. Bilateral facet joint and ligamentum flavum hypertrophy producing the AP diameter of the thecal sac. L4-5: Broad-based disc bulging abutting the L5 nerve roots on the lateral recesses. Bilateral facet joint and ligamentum flavum hypertrophy producing the AP diameter of the thecal sac. Bilateral neuroforamina narrowing. L5-S1: Broad-based disc bulging. Bilateral facet joint hypertrophy. Reduced AP diameter of the thecal sac. Bilateral neuroforamina narrowing, left greater than the right side likely encroaching the left L5 exiting nerve root. No prevertebral compartment hematoma, mass or fluid collection. MR/MR lumbar spine wo con IMPRESSION: Multilevel lumbar spondylosis, L2-3 to L5-S1 pronounced at L3-4 and L4-5. Broad-based left subarticular and foraminal herniated disc at L3-4 and to a lesser extent L2-3 encroaching the exiting nerve roots. Overall slight worsening at L2-3 levels Electronically signed by: Eric Daley MD 02/10/2025 07:15 AM EDT RP Dictated By: Eric Maki MD Signed By: <Electronically signed by Eric Irene MD in OV> 02/10/25 0715 DD/ 182 TD/TT: 02/09/25 1845 Senior Speech Pathologist: Procedure Note Donotuseinterpreter, Image - 02/10/[address] [address] Magnetic Resonance Report Signed Patient: Harriet Valdez#: [id number] : 1970Acct:[id number] Age/Sex: 54 / FADM Date: 02/09/25 Loc: HO.MRI Attending Dr: Nakul Velasco MD Ordering Physician: Nakul Velasco MD Date of Service: 02/09/25 Procedure(s): MR lumbar spine wo con Accession Number(s): [id number] cc: Emilie Davis MD; Nakul Velasco MD Reason for Exam: M54.50 - Low back pain, unspecified EXAMINATION: MR LUMBAR SPINE WITHOUT CONTRAST CLINICAL INFORMATION: M 54.50. Low back pain, unspecified. COMPARISON: October 16, 2021. TECHNIQUE: MRI of the lumbar spine was obtained using routine sequences without contrast. FINDINGS: Last rib-bearing vertebra labeled T12. Bone marrow STIR signal in the superior endplate of L5. Multilevel disc desiccation throughout the axial skeleton pronounced at L3-4 and L4-5. Normal alignment. Conus medullaris ends at the inferior endplate of L1 with normal signal. 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 No tethered cord. T11-12: No herniated disc. No neuroforamina stenosis. T12-L1: No disc herniation. No neuroforamina stenosis. L1-2: Broad-based disc bulging. Facet joint and ligamentum flavum hypertrophy. No compression upon neural elements. L2-3: Broad-based left foraminal disc herniation resulting in left neuroforamina narrowing, abutting the left L2 exiting nerve root. Bilateral facet joint hypertrophy as well as ligamentum flavum. No central spinal canal stenosis. L3-4: Broad-based left subarticular and foraminal disc herniation resulting in left neuroforamina stenosis encroaching the left L3 exiting nerve root. Bilateral facet joint and ligamentum flavum hypertrophy producing the AP diameter of the thecal sac. L4-5: Broad-based disc bulging abutting the L5 nerve roots on the lateral recesses. Bilateral facet joint and ligamentum flavum hypertrophy producing the AP diameter of the thecal sac. Bilateral neuroforamina narrowing. L5-S1: Broad-based disc bulging. Bilateral facet joint hypertrophy. Reduced AP diameter of the thecal sac. Bilateral neuroforamina narrowing, left greater than the right side likely encroaching the left L5 exiting nerve root. No prevertebral compartment hematoma, mass or fluid collection. MR/MR lumbar spine wo con IMPRESSION: Multilevel lumbar spondylosis, L2-3 to L5-S1 pronounced at L3-4 and L4-5. Broad-based left subarticular and foraminal herniated disc at L3-4 and to a lesser extent L2-3 encroaching the exiting nerve roots. Overall slight worsening at L2-3 levels Electronically signed by: Eric Daley MD 02/10/2025 07:15 AM EDT RP Dictated By: Eric Maki MD Signed By: <Electronically signed by Eric Irene MDin OV> 02/10/25 0715 DD/ 1820 TD/TT: 02/09/25 1845 Senior Speech Pathologist: [facility] External Provider IMG MRI PROCEDURES Final Result * (ABNORMAL) CA 19-9 (02/01/2025 11:57 AM EDT) CA 19-9 671(A) <34 U/mL [facility] Comment:This test was perfor med using the Siemenschemiluminescent method. Values obtained fromdifferent assay methods cannot be usedinterchangeably. CA 19-9 levels, regardless ofvalue, should not be interpreted as absoluteevidence of the presence or absence of disease.THIS TEST WAS PERFORMED AT:[facility] [place] [id number] MALDONADO MD 02/01/2025 11:5 7 AM EDT 02/01/2025 11:57 AM EDT Generic External Data Provider LAB BLOOD ORDERAB LES Final Result Performing Organization Address [facility]/ZIP Co de Phone Number [facility] [address] [place] [phone] * HIV-1 RNA, Quantitative, Real-Time PCR (02/01/2025 11:57 AM EDT) Only the most recent of3 resultswithin the time period is included. HIV RNA PCR Qn Copies NOT DETECTED NOT DETECTED copies/mL [facility] HIV RNA PCR Qn Log Copies NOT DETECTED NOT DETECTED [facility] Comment:Result Units: Log co pies/mLThis test was performed using Real-Time Polymerase ChainReaction.Reportable Range: 20 copies/mL to 10,000,000 copies/mL(1.30 log copies/mL to 7.00 log copies/mL).THIS TEST WAS PERFORMED AT:[facility] [address] [id number] MALDONADO MD 02/01/2025 11:5 7 AM EDT 02/01/2025 11:57 AM EDT Emilie Davis MD LAB BLOOD ORDERABLES Final Result Performing Organization Address [facility] Co de Phone Number [facility] [address] [place] [phone] * Homocysteine (02/01/2025 11:57 AM EDT) Pathologist [facility] [place] Homocysteine 7.4 < or = 13.4 umol/L [facility] Comment:Homocysteine is incr eased by functional deficiency offolate or vitamin B12. Testing for methylmalonic aciddifferentiates between these deficiencies. Other causesof increased homocysteine include renal failure, folateantagonists such as methotrexate and phenytoin, andexposure to nitrous oxide.Salvador Stevens et al., Caitlyn Train Dispatcher Med. 1999;131(5):331-9.THIS TEST WAS PERFORMED AT:[place] [address] [phone] MALDONADO MD 02/01/2025 11:5 7 AM EDT 02/01/2025 11:57 AM EDT us Generic External Data Provider LAB BLOOD ORDERAB LES Final Result [facility] [address] [place] [phone] [phone] * POCT Rapid HIV Screening (01/27/2025 1:50 PM EDT) Only the most recent of2 resultswithin the time period is included. Blood 01/27/2025 1:50 PM EDT Narrative Medina Lewis RN - 01/27/2025 1:50 PM EDT negative us Emilie Davis MD POINT OF CARE TEST ENTER/E DIT ORDERABLES Final Result * (ABNORMAL) Comprehensive Metabolic Panel (01/27/2025 11:53 AM EDT) Only the most recent of2 resultswithin the time period is included. Sodium 143 135 - 145 mmol/L [facility] Potassium 3.8 3.3 - 5.1 mmol/L [facility] Chloride 108 96 - 108 mmol/L [facility] Carbon Dioxide 30(H) 22 - 29 mmol/L [facility] Anion Gap 9(L) 12 - 20 [facility] Urea Nitrogen (BUN) 13 9 - 16 mg/dL [facility] Creatinine, Serum 0.79 0.5 - 1.4 mg/dL [facility] Estimated Glomerular Filt Rate >60 [facility] Comment:Chronic Kidney Disea se: Estimated GFR < 60 mL/min/1.75b9Lfvopu Kidney Disease: Estimated GFR < 15 mL/min/1.73m2 Glucose 78 60 - 115 mg/dL [facility] Calcium 9.1 8.4 - 10.2 mg/dL [facility] Bilirubin, Total 0.2 0.0 - 1.0 mg/dL [facility] Aspartate Amino Transferase 22 5 - 31 U/L [facility] Alanine Aminotransferase 18 0 - 31 U/L [facility] Total Protein 7.2 6.5 - 8.0 g/dL [facility] Albumin Level 4.2 3.5 - 5.0 g/dL [facility] Alkaline Phosphatase 79 39 - 117 U/L [facility] 01/27/2025 11:5 3 AM EDT 01/27/2025 1:16 PM EDT Emilie Davis MD LAB BLOOD ORDERABLES Final Result [facility] [address] [place] [phone] * Chlamydia/Gonorrhea Throat Swab ([facility]) (01/27/2025) Chlamydia Throat Swab Negative Gonorrhea Throat Swab Negative Swab 01/27/2025 Historical Provider LAB MICROBIOLOGY - GENERA L ORDERABLES Final Result * MR Abdomen w/ and w/o Contrast (01/20/2025 4:03 PM EDT) Anatomical Region Laterality Modality Abdomen Magnetic Resonan ce 01/20/2025 4:03 PM EDT Narrative 01/20/2025 4:05 PM EDT [address] [address] Magnetic Resonance Report Signed with Steve Patient: Harriet Valdez MR#: [id number] : 1970 Acct:[id number] Age/Sex: 54 / F ADM Date: 01/19/25 Loc: HO.MRI Attending Dr: Cha Mills MD Ordering Physician: Cha Mills MD Date of Service: 01/19/25 Procedure(s): MR abdomen wo/w con Accession Number(s): [id number] cc: Emilie Davis MD; Cha Mills MD [...] bile duct dilatation, concerning for malignancy. Recommend chain maker loom control consultation, ERCP and tissue sampling. 2. Subcentimeter right hepatic hemangioma and cyst. 3. Diverticulosis coli. This document has been electronically signed by: Yumiko Jones MD on 01/20/2025 16:03:51 Dictated By: Yumiko Jones MD Signed By: <Electronically signed by Yumiko Jones MD in OV> 01/20/251604 DD/ 02 TD/TT: 01/20/251602 Senior Speech Pathologist: Procedure Note Donotuseinterpreter, Image - 01/20/2025 [place] [address] Magnetic Resonance Report Signed with Addenda Patient: Harriet Valdez#: [id number] : 1970Acct:[id number] Age/Sex: 54 / FADM Date: 01/19/25 Loc: HO.MRI Attending Dr: Cha Mills MD Ordering Physician: Cha Mills MD Date of Service: 01/19/25 Procedure(s): MR abdomen wo/w con Accession Number(s): [id number] cc: Emilie Davis MD; Cha Mills MD [...] bile duct dilatation, concerning for malignancy. Recommend chain maker loom control consultation, ERCP and tissue sampling. 2. Subcentimeter right hepatic hemangioma and cyst. 3. Diverticulosis coli. This document has been electronically signed by: Yumiko Jones MD on 01/20/2025 16:03:51 Dictated By: Yumiko Jones MD Signed By: <Electronically signed by Yumiko Jones MD in OV> 01/20/25 1602 DD/ 1603 TD/TT: 01/20/25 1603 Senior Speech Pathologist: [facility] External Provider IMG MRI PROCEDURES Edited Result - Final * Hematoxylin and Eosin Stain (01/15/2025 3:32 PM EDT) 01/15/2025 3:32 PM EDT 01/18/2025 7:08 AM EDT [facility] - 01/19/2025 12:19 PM EDT ----- ------- Name: Harriet Valdez Age/Sex: 54/F : 1970 Unit#: [id number] Attend Dr: Mary Alice Mayorga MD Re01/15/25 Status: [facility] Location: HO.SSS Disch: ----- ------- SPEC : [id number] RECD: 01/18/25 STATUS: JANIE DUNLAP NUM: [id number] AMBREEN: 01/15/25-1531 [facility] DR: Mary Alice Mayorga MD ENTERED: [...] developed and their performance characteristics determined by [facility]. They have not been cleared or approved by the U.S. Food and Drug Administration (FDA). However, the FDA CONTINUED ON NEXT PAGE ----- ------- Name: Trace RobersonHarriet Age/Sex: 54/F : 1970 Unit#: [id number] Attend Dr: Mary Alice Mayorga MD Re01/15/25 Status: [facility] Location: [facility] Disch: ----- ------- SPEC : [id number] RECD: 01/18/25 STATUS: JANIE DUNLAP NUM: [id number] AMBREEN: 01/15/25-1532 [facility] DR: Mary Alice Mayorga MD ENTERED: [...] laboratory testing. Copies To: Emilie Davis MD [address] [id number] Mary Alice Mayorga MD [facility] [address] [place] [phone] ----- ------- Signed (signature on file) Yara Dodson MD 01/19/25 1219 ----- ------- END OF REPORT us Generic External Data Provider LAB BLOOD ORDERAB LES Final Result [facility] [address] [place] [address] [phone] * Prothrombin Time-INR (01/14/2025 3:40 PM EDT) Prothrombin Time 11.7 10.9 - 12.4 SEC [facility] INTERNATIONAL NORM RATIO 1.0 0.9 - 1.1 [facility] Comment:INTERNATIONAL NORMAL IZED RATIO [...] ORDERAB LES Final Result Performing Organization Address City/State/[facility] de Phone Number [facility] [address] [place] [phone] * FL Esophagus Barium Swallow (01/14/2025 9:40 AM EDT) Anatomical Region Laterality Modality Head, Neck Radiographic Aurora ging 01/14/2025 9:40 AM EDT Narrative 01/14/2025 11:23 AM EDT [address] [address] Fluoroscopy Report Signed Patient: Harriet Valdez MR#: [id number] : 1970 Acct:[id number] Age/Sex: 54 / F ADM Date: 01/14/25 Loc: MARINO Attending Dr: Aida ASH Ordering Physician: Aida Orozco Date of Service: 01/14/25 Procedure(s): FL barium swallow Accession Number(s): [id number] cc: Emilie Davis MD; Aida Orozco Reason [...] 01/14/25 1120 DD/ 0940 TD/TT: 01/14/25 0955 Senior Speech Pathologist: [facility] Procedure Note Donotuseinterpreter, Image - 01/14/2025 [place] [address] Fluoroscopy Report Signed Patient: Harriet Valdez#: [id number] : 1970Acct:[id number] Age/Sex: 54 / FADM Date: 01/14/25 Loc: HO.XRAY Attending Dr: Aida ASH Ordering Physician: Aida Orozco Date of Service: 01/14/25 Procedure(s): FL barium swallow Accession Number(s): [id number] cc: Emilie Davis MD; Aida Orozco Reason [...] 01/14/25 1120 DD/ 0940 TD/TT: 01/14/25 0955 Senior Speech Pathologist: MADINA [facility] External Provider IMG FLU OROSCOPY PROCEDURES Final Result * XR Abdomen 2 View minimum (01/08/2025 10:50 AM EDT) Anatomical Region Laterality Modality Abdomen Radiographic Aurora ging 01/08/2025 10:5 0 AM EDT Narrative 01/08/2025 12:26 PM EDT [address] [address] XRay Report Signed Patient: Harriet Valdez MR#: [id number] : 1970 Acct:[id number] Age/Sex: 54 / F ADM Date: 01/08/25 Loc: HO.XRAY Attending Dr: Aida ASH Ordering Physician: Aida Orozco Date of Service: 01/08/25 Procedure(s): XR abdomen min 2V Accession Number(s): [id number] cc: Emilie Davis MD; Aida Orozco EXAMINATION: [...] Deras MD Signed By: <Electronically signed by Mnaish Deras MD in OV> 01/08/25 1223 DD/ 1050 TD/TT: 01/08/25 1057 Senior Speech Pathologist: Procedure Note Donotuseinterpreter, Image - 01/08/2025 [place] [address] XRay Report Signed Patient: Harriet ValdezMR#: [id number] : 1970Acct:[id number] Age/Sex: 54 / FADM Date: 01/08/25 Loc: HO.ABIGAIL Attending Dr: Aida ASH Ordering Physician: Aida Orozco Date of Service: 01/08/25 Procedure(s): XR abdomen min 2V Accession Number(s): [id number] cc: Emilie Davis MD; Aida Orozco EXAMINATION: [...] 01/08/25 1223 DD/ 1050 TD/TT: 01/08/25 1057 Senior Speech Pathologist: [facility] External Provider IMG XR PROCEDURES Edited Result - Final * (ABNORMAL) VITAMIN D 25-OH (D2 AND D3) (01/08/2025 10:47 AM EDT) Vitamin D, 25-OH, D2 <4 ng/mL [facility] Comment:This test was develo ped and its analytical performancecharacteristics have been determined by [facility] [place], [place]. It hasnot been cleared or approved by the U.S. Food and DrugAdministration. This assay has been validated pursuantto the CLIA regulations and is used for clinicalpurposes.THIS TEST WAS PERFORMED AT:[place]/[facility] [id number] [place] [address]MPIUVXCMARCI ESTEVEZ MD,PHD Vitamin D, 25-OH, D3 28 ng/mL [facility] Comment:This test was develo ped and its analytical performancecharacteristics have been determined by [place] It hasnot been cleared or approved by the U.S. Food and DrugAdministration. This assay has been validated pursuantto the CLIA regulations and is used for clinicalpurposes. Vitamin D, 25-OH, Total 28(A) 30 - 100 ng/mL [facility] Comment:Vitamin D, 25-Hydrox y [...] = 30 ng/mL.For additional information, please refer [email or web address].[employer])/faq/NYD174(This link is being provided for informational/educational purposes only.) 01/08/2025 10:4 7 AM EDT 01/08/2025 10:47 AM EDT Generic External Data Provider LAB BLOOD ORDERAB LES Final Result Performing Organization Address [facility] Co de Phone Number [facility] [address] [place] [phone] * Sed Rate by Modified Westergren (01/08/2025 10:47 AM EDT) Erythrocyte Sedimentation Rate 9 0 - 20 MM/HR [facility] Comment:Patients with polycy themia and many hemoglobin abnormalitiesmay have depressed sed rates whereas patients with anemiamay have elevated sed rates. 01/08/2025 10:4 7 AM EDT 01/08/2025 10:47 AM EDT Generic External Data Provider LAB BLOOD ORDERAB LES Final Result Performing Organization Address [facility] Co de Phone Number [facility] [address] [place] [phone] * C-reactive Protein (01/08/2025 10:47 AM EDT) C Reactive Protein <0.10 < or = 0.50 mg/dL [facility] 01/08/2025 10:4 7 AM EDT 01/08/2025 10:47 AM EDT us Generic External Data Provider LAB BLOOD ORDERAB LES Final Result [facility] [address] [place] [address] [phone] * (ABNORMAL) Drug Monitoring, Panel 1, Screen, Urine (12/29/2024 1:09 PM EDT) Opiate Screen Urine Not Detected Not Detect [facility] Comment:Opiate cut-off is 30 0 ng/mL.Positive results are unconfirmed and should not be used fornon-medical purposes. Barbiturates, Urine Not Detected Not Detect [facility] Comment:Barbiturate cut-off is 200 ng/mL.Positive results are unconfirmed and should not be used fornon-medical purposes. Phencyclidine Screen Urine Not Detected Not Detect [facility] Comment:Phencyclidine cut-of f is 25 ng/mL.Positive results are unconfirmed and should not be used fornon-medical purposes. Amphetamine Screen Urine Not Detected Not Detect [facility] Comment:Amphetamine cut-off is 1000 ng/mL.Positive results are unconfirmed and should not be used fornon-medical purposes. Benzodiazepines Screen Urine Not Detected Not Detect [facility] Comment:Benzodiazepine cut-o ff is 200 ng/mL.Positive results are unconfirmed and should not be used fornon-medical purposes. Cocaine Screen Urine Not Detected Not Detect [facility] Comment:Cocaine cut-off is 3 00 ng/mL.Positive results are unconfirmed and should not be used fornon-medical purposes. Cannabinoid Screen Urine POSITIVE(A) Not Detect [facility] Comment:Cannabinoid cut-off is 50 ng/mL.Positive results are unconfirmed and should not be used fornon-medical purposes. Methadone Screen, Urine Not Detected Not Detect ng/mL [facility] Comment:Methadone cut-off is 300 ng/mL.Positive results are unconfirmed and should not be used fornon-medical purposes. FENTANYL URINE Not Detected Not Detect [facility] Comment:Fentanyl cut-off is 1 ng/mL.Positive results are unconfirmed and should not be used fornon-medical purposes. Oxycodone Urine Screen Not Detected Not Detect ng/mL [facility] Comment:Oxycodone cut-off is 100 ng/mL.Positive results are unconfirmed and should not be used fornon-medical purposes. Buprenorphine Screen Not Detected Not Detect ng/mL [facility] Comment:Buprenorphine cut-of f is 5 ng/mL.Positive results are unconfirmed and should not be used fornon-medical purposes. 12/29/2024 1:09 PM EDT 12/29/2024 1:16 PM EDT us Generic External Data Provider LAB URINE ORDERAB LES Final Result Performing Organization Address [facility] Co de Phone Number [facility] [address] [place] [phone] * Urinalysis w/reflex microscopic (12/29/2024 1:09 PM EDT) Color Urine Yellow [facility] Appearance Urine Clear [facility] PH 8.0 5.0 - 9.0 [facility] Glucose Urine UA Negative Negative mg/dL [facility] Urine Blood Negative Negative [facility] Specific [place] - Urine 1.015 1.005 - 1.025 [facility] Urine Protein Negative Neg-Trace mg/dL [facility] Urine Ketones Negative Negative mg/dL [facility] Nitrite Urine Negative Negative [facility] Leukocyte Esterase Urine Negative Negative [facility] 12/29/2024 1:09 PM EDT 12/29/2024 1:16 PM EDT Narrative [facility] - 12/29/2024 1:22 PM EDT Urine, Clean Catch us Generic External Data Provider LAB URINE ORDERAB LES Final Result Performing Organization Address [facility] Co de Phone Number [facility] [address] [place] [phone] * Hepatic Function Panel (12/29/2024 10:00 AM EDT) Bilirubin, Total 0.4 0.0 - 1.0 mg/dL [facility] Bilirubin, Direct 0.1 0.0 - 0.5 mg/dL [facility] Aspartate Amino Transferase 26 5 - 31 U/L [facility] Alanine Aminotransferase 19 0 - 31 U/L [facility] Total Protein 7.6 6.5 - 8.0 g/dL [facility] Albumin Level 4.4 3.5 - 5.0 g/dL [facility] Alkaline Phosphatase 90 39 - 117 U/L [facility] 12/29/2024 10:0 0 AM EDT 12/29/2024 10:02 AM EDT us Generic External Data Provider LAB BLOOD ORDERAB LES Final Result [facility] [address] [place] [phone] * (ABNORMAL) Basic Metabolic Panel (12/29/2024 10:00 AM EDT) Pathologist [facility] [place] Sodium 142 135 - 145 mmol/L [facility] Potassium 4.0 3.3 - 5.1 mmol/L [facility] Chloride 107 96 - 108 mmol/L [facility] Carbon Dioxide 30(H) 22 - 29 mmol/L [facility] Anion Gap 9(L) 12 - 20 [facility] Urea Nitrogen (BUN) 10 9 - 16 mg/dL [facility] Creatinine, Serum 0.75 0.5 - 1.4 mg/dL [facility] Creatinine Clr Calc Pharmacy 66.2 [facility] Comment:Provided height and weight: 162.56 cm,49.5 kg.eGFR (calculated from the MDRD study equation) and eCrCl(calculated from the Cockcroft-Gault equation) are based ondifferent parameters and may not yield comparable results.If eCrCl result is absurd, please check patient'sheight/weight. Estimated Glomerular Filt Rate >60 [facility] Comment:Chronic Kidney Disea se: Estimated GFR < 60 mL/min/1.92f7Lprwhu Kidney Disease: Estimated GFR < 15 mL/min/1.73m2 Glucose 117(H) 60 - 115 mg/dL [facility] Calcium 9.3 8.4 - 10.2 mg/dL [facility] 12/29/2024 10:0 0 AM EDT 12/29/2024 10:02 AM EDT us Generic External Data Provider LAB BLOOD ORDERAB LES Final Result Performing Organization Address [facility] Co de Phone Number [facility] [address] [place] [phone] * (ABNORMAL) Confirmatory Syphilis Profile (11/26/2024 1:24 PM EDT) Rapid Plasma Reagin, Quant Non-React darren Nonreactive [facility] Treponema pallidum Antibody, Particle Agglutination Reactive( A) Nonreactive [facility] Comment:These results must b e reported by the ordering clinician orclinical facility to the [facility] required by state law.Testing performed at: [address] [address] 11/26/2024 1:24 PM EDT 11/27/2024 3:54 AM EDT Emilie Davis MD LAB BLOOD ORDERABLES Final Result Performing Organization Address [facility] Co de Phone Number [facility] [address] [place] [phone] * (ABNORMAL) Syphilis Screen (11/26/2024 1:24 PM EDT) Syphilis Screen Reactive( A) Nonreactive [facility] Comment:Reactive specimens a re [facility]. 11/26/2024 1:24 PM EDT 11/26/2024 4:06 PM EDT Emilie Davis MD LAB BLOOD ORDERABLES Final Result Performing Organization Address [facility] Co de Phone Number [facility] [address] [place] [phone] * Hepatitis C Viral RNA, Quantitative, Real-Time PCR (11/26/2024 1:24 PM EDT) [facility] Hepatitis C Viral Load <15 NOT DETECTED NOT DETECTED IU/mL [facility] HCV Log PCR <1.18 NOT DETECTED NOT DETECTED Log IU/mL [facility] Comment:For additional infor mation, please refer tohttp://education.[employer]/faq/ILA37u5(This link is being provided for informational/educational purposes only.)THIS TEST WAS PERFORMED AT:[facility] [place] [id number] MALDONADO MD 11/26/2024 1:24 PM EDT 11/27/2024 2:28 PM EDT Emilie Davis MD LAB BLOOD ORDERABLES Final Result Performing Organization Address [facility] de Phone Number [facility] [address] [place] [phone] * (ABNORMAL) Hepatitis C Antibody with Reflex to HCV, RNA, Quantitative, Real- Time PCR (11/26/2024 1:24 PM EDT) [facility] Hepatitis C Antibody Reactive( A) Nonreactive [facility] Comment:Presumptive evidence of antibodies to HCV. 11/26/2024 1:24 PM EDT 11/26/2024 4:06 PM EDT Emilie Davis MD LAB BLOOD ORDERABLES Final Result Performing Organization Address [facility] Co de Phone Number [facility] [address] [place] [phone] * Methylmalonic Acid (11/26/2024 1:24 PM EDT) Methylmalonic Acid 197 55 - 335 nmol/L [facility] Comment: Serum methylmalonic acid [...] outcomes,such as neural tube defects and intrauterine growthrestriction.[facility] utilized Multi-Modal Decomposition(MMD) analysis to establish first and second trimester-specific MMA reference intervals in , as givenbelow:MMA, First trimester (<13 wks gestation): 58-167 nmol/LMMA, Second trimester (13-23 wks gestation):63-241 nmol/LThis test was developed and its analytical performancecharacteristics have been determined by [facility]. It has not been cleared or approved by theFDA. This assay has been validated pursuant to the CLIAregulations and is used for clinical purposes.THIS TEST WAS PERFORMED AT:[place]/[facility] [address] [place] [address]RFKMNQYMARCI ESTEVEZ MD,PHD 11/26/2024 1:24 PM EDT 11/26/2024 4:06 PM EDT us Generic External Data Provider LAB BLOOD ORDERAB LES Final Result [facility] [address] [place] [address] [phone] * RPR (Monitor) with Reflex to??Titer (11/26/2024 1:24 PM EDT) RPR (Monitor) w/Refl Titer NON-REACTI VE NON-REACT DARREN [facility] Comment:THIS TEST WAS PERFOR MED AT:[facility] [place] [phone] MALDONADO MD Rapid Plasma Reagin Ab Titer TNP [facility] 11/26/2024 1:24 PM EDT 11/26/2024 4:06 PM EDT us Emilie Davis MD LAB BLOOD ORDERABLES Final Result Performing Organization Address [facility]/ZIP Co de Phone Number [facility] [address] [place] [phone] [phone] * (ABNORMAL) Lipid Panel, Standard (07/24/2024 1:36 PM EDT) Triglycerides 141 <150 mg/dL [facility] Comment:Desirable Triglyceri de: less than 150 mg/dLBorderline High Triglyceride 150-199 mg/dLHigh Triglyceride: 200-499 mg/dLVery High Triglyceride: greater than or equal to 5OO mg/dL Cholesterol 205(H) <200 mg/dL [facility] Comment:Desirable Cholestero l: less than 200 mg/dLBorderline High Cholesterol: 200-239 mg/dLHigh Cholesterol: greater than 239 mg/dL LDL Cholesterol Calculated 114(H) <100 mg/dL [facility] Comment:Desirable LDL: less than 100 mg/dLNear Optimal/Above Optimal LDL: 110- 129 mg/dLBorderline High LDL: 130-159 mg/dLHigh LDL: 160-189 mg/dLVery High LDL: greater than or equal to 190 mg/dL HDL Cholesterol 63 >40 mg/dL [facility] Comment:Desirable HDL: great er than 40 mg/dL Note: This HDL assay may give artificially low results in patients with liver disease. 07/24/2024 1:36 PM EDT 07/24/2024 4:20 PM EDT us Generic External Data Provider LAB BLOOD ORDERAB LES Final Result Performing Organization Address [facility]/ZIP Co de Phone Number [facility] [address] [place] [address] [phone] * HPV mRNA E6/E7 w/Reflex to HPV Genotypes 16, 18/45 (03/22/2023 11:30 AM EST) HPV nRNA E6/E7 Not Detected Not Detected [facility] Comment:Methodology: Transcr iption-Mediated AmplificationThis assay detects E6/E7 viral messenger RNA (mRNA) from 14high-risk HPV types (16,18,31,33,35,39,45,51,52,56,58,59,66,68).Cervical sources are required for HPV testing.If a vaginal source from a patient who has had atotal hysterectomy with removal of cervix wassubmitted, please contact the testing laboratoryfor alternative testing options.For additional information, please refer tohttp://education.Cytocentrics/faq/FSF259p9(This link if provided for information/educational purposes only.)THIS TEST WAS PERFORMED AT:[facility] [place] [id number] MALDONAOD MD HPV mRNA E6/E7 [facility] HPV 16 RNA [facility] HPV 18/45 RNA [facility] 03/22/2023 11:3 0 AM EST 03/25/2023 12:20 PM EST Emilie Davis MD LAB CYTOLOGY ORDERABLES Fi nal Result [facility] [address] [place] [phone] * Pap Smear (03/22/2023 11:30 AM EST) 03/22/2023 11:3 0 AM EST 03/25/2023 12:20 PM EST Narrative [facility] - 04/11/2023 11:26 AM EST ----- ------- Name: Harriet Valdez Age/Sex: 53/F : 1970 Unit#: [id number] Attend Dr: RADHA VILLAREAL MD Re03/22/23 Status: DEP REF Location: [facility] Disch: ----- ------- SPEC : [id number] RECD: 03/25/23-0 STATUS: JANIE [facility] NUM: [id number] AMBREEN: 03/22/23-113 [facility] DR: Emilie Davis MD ENTERED: 03/25/231954 SP TYPE: Pap Smr OTHR DR: ORDERED: Pap Smear Interpretation Satisfactory for evaluation. Negative for intraepithelial lesion or malignancy. HPV mRNA E6/E7: NOT DETECTED This assay detects E6/E7 viral messenger RNA (mRNA) from 14 high-risk HPV types (16, 18, 31, 33, 35, 39, 45, 51, 52, 56, 58, 59, 66, 68) HPV testing performed by [facility], [place], [place]. See reference laboratory portion of the EMR for entire report. Clinical Information LMP: Unknown date Previous PAP test: Unknown date, WNL Other history: Pt on testosterone, surgical post menopause Material Received ThinPrep-Cervical ----- ------- Signed (signature on file) SERENA Alejandro (ASC) 04/11/23 1126 ----- ------- END OF REPORT Emilie Davis MD LAB CYTOLOGY ORDERABLES Fi nal Result [facility] [address] [place] [phone] * Colonoscopy (01/30/2018) Colonoscopy normal Historical Provider HEALTH MAINTENANCE Final Result from Last 3 Months or Most Recently Relevant to Health Maintenance Insurance [facility] [address] [place] [address] Advance Directives Documents on File Type Date 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
--- OUTSIDE RECORDS SUMMARY | 2025-02-23 17:54 | XMS_ITS | Encounter Summary ---
Author Organization [employer] [facility] Address [address] [facility] 7t [place] [address] Care Team Providers Care Manager Company Name Role Phone Emilie Davis MD Primary Care Provider Morales Echavarria Unavailable Unavailable August Unavailable Fred Castanon Unavailable Ele Mar MD Unavailable [phone] Encounter Details Date Type Department Care Team (Late st Contact Info) Description 05/27/[address] [address] Emilie Davis MD [address] [place] [address] [phone] Social History Tobacco Use Types Packs/Day Years [...] Description 03/03/2025 9:30 AM EDT Office Visit [address] [phone] Emilie Davis MD [address] [place] [address] 03/24/2025 11:00 AM EST Clinical Support [address] [place] [address] Medina Lewis, RN [address] [place] [address] 06/04/2025 3:00 PM EST Office Visit [facility] [address] [place] [address] Merissa Donis, OD [address] [place] [address] documented as of this encounter Procedures Procedure [...] ORDERABLES F inal Result Performing Organization Address City/[facility]/ZIP Co de Phone Number [facility] [address] [place] [address] [phone] documented in this encounter Visit Diagnoses Not on filedocumented in this encounter Care Teams Manager Company Relationship Specialty Start Date End Date Emilie Davis MD [address] [place] [address] PCP - General Family Medicine 05/13/18 Morales Echavarria FNP [address] [place] [address] Nurse Practitioner Family Medicine 04/16/23 Pam Aida [address] [place] [address] Gastroenterology 05/26/24 Fred Castanon [address] [place] [address] 07/21/24 Ele Mar MD [address] [place] [address] Hematology and Oncology 02/22/25 Marina Brown MD Rheumatology 02/10/25 documented as of this encounter
--- OUTSIDE RECORDS SUMMARY | 2025-02-23 17:54 | XMS_ITS | Encounter Summary ---
Author Organization [employer] Address [address] [place] [address] Care Team Providers Care Clinical Investigator Name Role Phone Emilie Davis MD Primary Care Provider [phone] Morales Echavarria Unavailable Unavailable August Unavailable Fred Castanon Unavailable Ele Mar MD Unavailable [phone] Reason for Visit * Reason Onset Date Comments Hospital Follow-up 01/04/2025 No Show 01/04/2025 Pt no show for h df Encounter Details Date Type Department Care Team (Late st Contact Info) Description 01/04/2025 Telephone [facility] [address] [place], [place] [phone] Emilie Davis MD [address] [place], [place] [phone] Hospital Follow-up; No Show (Pt no show [...] 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 Hospital: [facility] Date of admission: 12/29 Discharge date: 12/31 Diagnosed: Gastritis and inflammation of the pancreas *Send message to [facility] Clinical Care Coordinators documented in this encounter Plan of Treatment Upcoming Encounters Date Type Department Care Team (Late st Contact Info) Description 03/03/2025 9:30 AM EDT Office Visit [facility] [address] [place] [address] Emilie Davis MD [address] [place] [address] 03/24/2025 11:00 AM EST Clinical Support [facility] [address] [place] [address] Medina Lewis, RONALD [address] [place] [address] 06/04/2025 3:00 PM EST Office Visit [facility] [address] [place] [address] Merissa Donis, OD [address] [place] [address] documented as of this encounter Visit Diagnoses Not on filedocumented in this encounter Additional Health Concerns Assessment Noted Time PHQ-9 Depression Total Score: 3 04/30/20 9:17 AM EST documented as of this encounter Care Teams Clinical Investigator Relationship Specialty Start Date End Date Emilie Davis MD [address] [place] [address] PCP - General Family Medicine 05/13/18 Morales Echavarria FNP [address] [place] [address] Nurse Practitioner Family Medicine 04/16/23August [address] [place] [address] [address] [place] [address] Gastroenterology 05/26/24 Fred Castanon [address] [place] [address] 07/21/24 Ele Mar MD [address] [place] [address] Hematology and Oncology 02/22/25 Marina Brown MD Rheumatology 02/10/25 documented as of this encounter
== END 2025-02-23 15:48 | disposition home or self-care (01) ==
PROVIDERS: PCP Family Medicine; Visit Provider Nurse Practitioner
DX: C25.9 Malignant neoplasm of pancreas, unspecified (principal); R97.8 Other abnormal tumor markers
CPT/HCPCS: 99214

== ENCOUNTER → 2025-02-23 14:59 | Outpatient (BNVA) | payer OTHER, SELFPAY | PROVIDERS: PCP Family Medicine; Visit Provider Nurse Practitioner | DX: Z71.2 Person consulting for explanation of examination or test findings (principal); C25.9 Malignant neoplasm of pancreas, unspecified; R97.8 Other abnormal tumor markers | CPT/HCPCS: 99212 ==

== ENCOUNTER → 2025-02-24 09:35 | Outpatient (BNV) | payer OTHER, SELFPAY | PROVIDERS: Visit Provider Internal Medicine | DX: C25.0 Malignant neoplasm of head of pancreas (principal); Z85.07 Personal history of malignant neoplasm of pancreas | CPT/HCPCS: 99215 ==

== ENCOUNTER 2025-02-25 14:52 | Outpatient (REF) | payer OTHER, SELFPAY ==
--- NOTE | ~2025-02-25 | XR_ITS ---
EXAMINATION: XR TIBIA FIBULA 2 VIEWS LEFT HISTORY: acute left superolateral leg pain COMPARISON: There are no prior studies available for comparison. FINDINGS: AP and lateral views of the left tibia and fibula are submitted. Osseous mineralization is normal. There is no fracture or dislocation. The visualized knee and ankle joint spaces are preserved. The soft tissues are unremarkable. XR/XR tibia fibula LT 2V IMPRESSION: Unremarkable examination of the left tibia and fibula. Electronically signed by: Manish Deras MD 02/25/2025 03:25 PM EDT
--- NOTE | ~2025-02-25 | US_ITS ---
EXAMINATION: US TRIPLEX LOWER EXTREMITY, LEFT CLINICAL INFORMATION: Left calf pain. COMPARISON: None available. TECHNIQUE: Color-flow triplex imaging with spectral analysis and compression Doppler were performed on the left lower extremity. FINDINGS: Respiratory variation, normal compression and augmented flow are noted throughout the left lower extremity. The visualized common femoral vein, superficial femoral vein, profunda femoral vein, popliteal vein and midcalf peroneal and posterior tibial venous segments show no evidence of deep venous thrombosis. There is no Du's cyst. US/US venous duplex LE LT IMPRESSION: No evidence of deep venous thrombosis involving the left lower extremity. Electronically signed by: Micah Hastings MD 02/25/2025 03:46 PM EDT
--- OUTSIDE RECORDS SUMMARY | 2025-02-25 13:40 | XMS_ITS | Encounter Summary ---
Author Organization [employer] [facility] Address [address] [facility] 7t [place] [address] Care Team Providers Care Technical Coordinator Name Role Phone Emilie Davis MD Primary Care Provider [phone] Morales Echavarria Unavailable Unavailable August Unavailable Fred Castanon Unavailable Ele Mar MD Unavailable [phone] Reason for Referral * Imaging (STAT) - Authorized Specialty Diagnoses / Procedures Referred By Contac t Referred To Contact Cardiology Diagnoses Pain of left calf Procedures Vascular US lower extremity venous duplex left Ann-Marie Muhammad MD [address] [place] [address] Phone: tel: fax: [facility] [address] [place] [address] Phone: tel: fax: Referral ID Status Reason Start Date Expiration Date Visits Requested Visits Authorized [id number] Authorized Perform Procedure 5 02/25/2026 1 1 Encounter Details Date Type Department Care Team (Latest Contact Info) Description 02/25/2025 1:40 PM EDT Office Visit 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 Not on file Not on file documented as of this encounter Last Filed Vital Signs Vital Sign Reading Time Taken Comments Blood Pressure 127/74 02/25/2025 1:51 PM EDT Pulse 82 02/25/2025 1:51 PM EDT Temperature 36.6 C (97.9 F) 02/25/2025 1:51 PM EDT Respiratory Rate 17 02/25/2025 1:51 PM EDT Oxygen Saturation 99% 02/25/2025 1:51 PM EDT Inhaled Oxygen Concentration - - Weight 46.4 kg (102 lb 4 oz) 02/25/2025 1:51 PM EDT Height 165.1 cm (5' 5 ) 02/25/2025 1:51 PM EDT Body Mass Index 17.02 02/25/2025 1:51 PM EDT documented in this encounter Progress Notes * Ann-Marie Muhammad MD - 02/25/2025 1:40 PM EDT SUBJECTIVE Harriet Roberson is a 55 y.o. adult patient of Emilie Davis MD who presents for acute left leg pain. HPI As Deloris got out of bed this morning and stepped down on the floor, he felt a snap and heard a crack in his upper left leg. Pain persists since that episode. Pain is constant, worse with bearing weight, and worse when he bends his knee. Pain radiates across front of knee and up to medial left thigh. Has had some SOB, fatigue and cough lately as well. He just had a pancreatic mass biopsy three days and recently learned he has pancreatic adenocarcinoma. Review of Systems Constitutional: Positive for fatigue. Negative for chills and fever. Respiratory: Positive for cough and shortness of breath. Musculoskeletal: Positive for arthralgias. Negative for joint swelling. Neurological: Positive for weakness. OBJECTIVE Vitals: 02/25/25 1351 BP: 127/74 BP Location: Right arm Patient Position: Sitting BP Cuff Size: Adult Pulse: 82 Resp: 17 Temp: 97.9 ??F (36.6 ??C) TempSrc: Oral SpO2: 99% Weight: 102 lb 4 oz (46.4 kg) Height: 5' 5 (1.651 m) Physical Exam Constitutional: Appearance: He is cachectic. He is not toxic-appearing. Cardiovascular: Comments: Visible superficial veins in the left popliteal fossa Pulmonary: Effort: Pulmonary effort is normal. Musculoskeletal: Left upper leg: Tenderness (distal anterior thigh) present. Left lower leg: Bony tenderness (at the head of the fibula and popliteal fossa. No tibial tenderness.) present. Skin: General: Skin is warm and dry. Coloration: Skin is not jaundiced. Neurological: General: No focal deficit present. Mental Status: He is alert. Psychiatric: Mood and Affect: Mood normal. Behavior: Behavior normal. Assessment/Plan Assessment/Plan Diagnoses and all orders for this visit: Pain of left calf: With bony pain of the fibular head and tenderness in left popliteal fossa, concerned for possible pathologic fracture (though no mets noted on recent CT chest/abdominal/pelvis) vs DVT. Will check stat xrays of tib- fib and stat LLE duplex. If DVT present, will need to go to ED. - Vascular US lower extremity venous duplex left; Future - XR Tibia Fibula 2 Views Left; Future Pancreatic adenocarcinoma (CMS/HCC) (HCC) Future Appointments Date Time Provider Department Center 03/03/2025 9:30 AM Emilie Davis MD [facility] 03/03/2025 10:00 AM Radha Perla [facility] 03/24/2025 11:00 AM Medina Lewis RN [facility] 06/04/2025 3:00 PM Merissa Donis OD [facility] documented in this encounter Plan of Treatment Upcoming Encounters Date Type Department Care Team (Late st Contact Info) Description 03/03/2025 9:30 AM EDT Office Visit [facility] [address] [place] [address] Emilie Davis MD [address] [place] [address] 03/24/2025 11:00 AM EST Clinical Support [facility] [address] [place] [address] Medina Lewis RN [address] [place] [address] 06/04/2025 3:00 PM EST Office Visit [facility] [address] [place] [address] Merissa Donis OD [address] [place] [address] documented as of this encounter Procedures Procedure Name Priority Date/Time Associated Diagnosis Comments XR TIBIA FIBULA 2 VIEWS LEFT STAT 02/25/2025 3:14 PM EDT Pain of left calf documented in this encounter Results * XR Tibia Fibula 2 Views Left (02/25/2025 3:14 PM EDT) Anatomical Region Laterality Modality Lower Extremities, Lower Leg Left Rad iographic Imaging 02/25/2025 3:14 PM EDT Narrative 02/25/2025 3:28 PM EDT [facility] [address] [place] [address] XRay Report Signed Patient: Harriet Valdez MR#: [id number] : 1970 Acct:[id number] Age/Sex: 55 / F ADM Date: 02/25/25 Loc: HO. Attending Dr: Ann-Marie Muhammad MD Ordering Physician: Ann-Marie Muhammad MD Date of Service: 02/25/25 Procedure(s): XR tibia fibula LT 2V Accession Number(s): [id number] cc: Emilie Davis MD; Ann-Marie Muhammad MD Reason for Exam: acute left superolateral leg pain EXAMINATION: XR TIBIA FIBULA 2 VIEWS LEFT HISTORY: acute left superolateral leg pain COMPARISON: There are no prior studies available for comparison. FINDINGS: AP and lateral views of the left tibia and fibula are submitted. Osseous mineralization is normal. There is no fracture or dislocation. The visualized knee and ankle joint spaces are preserved. The soft tissues are unremarkable. XR/XR tibia fibula LT 2V IMPRESSION: Unremarkable examination of the left tibia and fibula. Electronically signed by: Manish Deras MD 02/25/2025 03:25 PM EDT Dictated By: Manish Deras MD Signed By: <Electronically signed by Manish Deras MD in OV> 02/25/25 1525 DD/ 1514 TD/TT: 02/25/25 1521 Membership Assistant: Procedure Note Donotuseinterpreter, Image - 02/25/[address] [address] XRay Report Signed Patient: Harriet ValdezMR#: [id number] : 1970Acct:[id number] Age/Sex: 55 / FADM Date: 02/25/25 Loc: HO.US Attending Dr: Ann-Marie Muhammad MD Ordering Physician: Ann-Marie Muhammad MD Date of Service: 02/25/25 Procedure(s): XR tibia fibula LT 2V Accession Number(s): [id number] cc: Emilie Davis MD; Ann-Marie Muhammad MD Reason for Exam: acute left superolateral leg pain EXAMINATION: XR TIBIA FIBULA 2 VIEWS LEFT HISTORY: acute left superolateral leg pain COMPARISON: There are no prior studies available for comparison. FINDINGS: AP and lateral views of the left tibia and fibula are submitted. Osseous mineralization is normal. There is no fracture or dislocation. The visualized knee and ankle joint spaces are preserved. The soft tissues are unremarkable. XR/XR tibia fibula LT 2V IMPRESSION: Unremarkable examination of the left tibia and fibula. Electronically signed by: Manish Deras MD 02/25/2025 03:25 PM EDT Dictated By: Manish Deras MD Signed By: <Electronically signed by Manish Deras MD in OV> 02/25/25 1525 DD/ 1514 TD/TT: 02/25/25 1521 Membership Assistant: Ann-Marie Muhammad MD IMG XR PROCEDURES Final Resul t documented in this encounter Visit Diagnoses Diagnosis Pain of left calf- Primary Pancreatic adenocarcinoma (CMS/HCC) (HCC) Malignant neoplasm of pancreas, part unspecified Pancreatic mass- Primary Unspecified disease of pancreas documented in this encounter Additional Health Concerns Assessment Noted Time PHQ-9 Depression Total Score: 3 04/30/20 23 9:17 AM EST documented as of this encounter Care Teams Technical Coordinator Relationship Specialty Start Date End Date Emilie Davis MD [address] [place] [address] PCP - General Family Medicine 05/13/18 Morales Echavarria FNP [address] [place] [address] Nurse Practitioner Family Medicine 04/16/23 Aida Orozco [address] [place] [address] Gastroenterology 05/26/24 Fred Castanon [address] [place] [address] 07/21/24 Ele Mar MD [address] [place] [address] Hematology and Oncology 02/22/25 Marina Brown MD Rheumatology 02/10/25 documented as of this encounter
--- OUTSIDE RECORDS SUMMARY | 2025-02-25 18:47 | XMS_ITS | Clinical Summary ---
Author Organization [facility] Address [address] [address] Phone Care Team Providers Care Nurse Assistant Name Role Phone Emilie Davis MD [...] C3 ACO C3 ACO C3 ACO [facility] [place] [id number] [employer] Advance Directives For more information, please contact: [phone] (9AM - 5PM [facility], Saturday-Saturday) * Full Code (Presumed) (Latest Code Status on File) Date Activated Date Inactivated Comments 10/28/2018 9:51 AM 10/28/2018 7:25 PM Care Teams Nurse Assistant Relationship Specialty Start Date End Date [place], Emilie Way MD [address] [place] [address] PCP - General Family Medicine 06/03/18 Additional Source Comments The information contained in this document represents components of the legal health record. It is not the complete legal health record.[facility]
--- OUTSIDE RECORDS SUMMARY | 2025-02-25 18:47 | XMS_ITS | Encounter Summary ---
Author Organization [employer] Address [address] [facility] [address] 7t [place] [address] Care Team Providers Care Materials Planning Analyst Name Role Phone Emilie Davis MD Primary Care Provider [phone]- [phone] Morales Echavarria Unavailable Unavailable August Unavailable Fred Castanon Unavailable Ele Mar MD Unavailable [phone] Reason for Visit * Reason Onset Date Comments Hospital Follow-up 02/22/2025 Encounter Details Date Type Department Care Team (Late st Contact Info) Description 02/22/2025 Telephone [facility] 230 [place], [place] [phone] Emilie Davis MD 230 [place] [address] Hospital Follow-up Social History Tobacco Use Types [...] 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 Hospital: [facility] Date of admission: 02/18 Discharge date: 02/21 Diagnosed: pt did a biopsy and they injured his pancreas *Send message to [place] Clinical Care Coordinators Contact pt at [phone] documented in this encounter Plan of Treatment Upcoming Encounters Date Type Department Care Team (Late st Contact Info) Description 03/03/2025 9:30 AM EDT Office Visit [facility] [address] [place] [address] Emilie Davis MD [address] [place], [place] [phone] 03/24/2025 11:00 AM EST Clinical Support [facility] [address] [place] [address] Medina Lewis, RN [address] [place] [address] 06/04/2025 3:00 PM EST Office Visit [facility] [address] [place] [address] Merissa Donis, OD 230 [place] [address] documented as of this encounter Visit Diagnoses Not on filedocumented in this encounter Additional Health Concerns Assessment Noted Time PHQ-9 Depression Total Score: 3 04/30/20 9:17 AM EST documented as of this encounter Care Teams Materials Planning Analyst Relationship Specialty Start Date End Date Emilie Davis MD [address] [place] [address] PCP - General Family Medicine 05/13/18 Morales Echavarria FNP [address] [place] [address] Nurse Practitioner Family Medicine 04/16/23August [address] [address] Gastroenterology 05/26/24 Fred Castanon [address] [place] [address] 07/21/24 Ele Mar MD [address] [place] [address] Hematology and Oncology 02/22/25 Marina Brown MD Rheumatology 02/10/25 documented as of this encounter
--- OUTSIDE RECORDS SUMMARY | 2025-02-25 18:47 | XMS_ITS | Encounter Summary ---
Author Organization [facility] [facility] Address 75 [facility] 7t [place] [address] Care Team Providers Care Music Mixer Name Role Phone Emilie Davis MD Primary Care Provider [phone]- [phone] Morales Echavarria Unavailable Unavailable August Unavailable Fred Castanon Unavailable Ele Mar MD Unavailable Reason for Referral * Consultation (Urgent) - Closed Specialty Diagnoses / Procedures Referred By Contac t Referred To Contact Behavioral Health Diagnoses Depression, unspecified depression type Emilie Davis MD [address] [place] [address] Phone: tel: fax: Referral ID Status Reason Start Date Expiration Date V isits Requested Visits Authorized [id number] Closed Specialty Services Required 02/05/2025 02/05/2026 1 1 Encounter Details Date Type Department Care Team (Late st Contact Info) Description 02/05/2025 Orders Only [facility] [address] [place] [address] [phone] Emilie Davis MD [address] [place], [place] [phone] Depression, unspecified depression type (Primary Dx) Social [...] 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 Not on file Not on file documented as of this encounter Plan of Treatment Upcoming Encounters Date Type Department Care Team (Late st Contact Info) Description 03/03/2025 9:30 AM EDT Office Visit [facility] [address] [place] [address] Emilie Davis MD [address] [place] [address] 03/24/2025 11:00 AM EST Clinical Support [facility] [address] [place] [address] Medina Lewis, RN 230 [place] [address] 06/04/2025 3:00 PM EST Office Visit [facility] [address] [place] [address] Merissa Donis, OD [address] [place] [address] Scheduled Referrals Name Type Priority Associated Diagnoses [...] documented as of this encounter Care Teams Music Mixer Relationship Specialty Start Date End Date Emilie Davis MD [address] [place] [address] PCP - General Family Medicine 05/13/18 Morales Echavarria FNP [address] [place] [address] Nurse Practitioner Family Medicine 04/16/23 Pam Aida [address] [place] [address] 3[address] [place] [address] Gastroenterology 05/26/24 Fred Castanon [address] [address] 07/21/24 Ele Mar MD [address] [place] [address] Hematology and Oncology 02/22/25 Marina Brown MD Rheumatology 02/10/25 documented as of this encounter
--- OUTSIDE RECORDS SUMMARY | 2025-02-25 18:47 | XMS_ITS | Encounter Summary ---
Author Organization [employer] Address [address] [facility] [address] 7t [place] [address] Care Team Providers Care Ultrasound Supervisor Name Role Phone Emilie Davis MD Primary Care Provider [phone]- [phone] Morales Echavarria Unavailable Unavailable August Unavailable Fred Castanon Unavailable Ele Mar MD Unavailable [phone] Reason for Visit * Reason Comments Transition Of Care (Tcm) Unscheduled Encounter Details Date Type Department Care Team (Late st Contact Info) Description 02/22/2025 Patient Outreach [facility] [address] [place] [address] Emilie Davis MD [address] [place] [address] Transition Of Care (Tcm) (Unscheduled ) Social [...] t he electric, gas, oil or water [employer] threatened to shut off services in your [...] 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 Called [facility] On[facility] andleft detailed message asking for callback to [phone] regarding if pt has appointment in next week. Called [facility], spoke with Ely who states: - Dr. Deutsch reached out to pt x1, did not reach them , will attempt to call back again to discuss result. Dr. Deutsch reached out to Dr. Deleon ([facility] surgical oncology) about result and plans to refer pt there. Dr. Deutsch ordered additional imaging as well. Nursing attempted to reach out to pt and Dr. Deutsch plans to reach out again to discuss diagnosis and plan. Will send FYI to PCP to clarify on plan for oncology ([facility] vs [facility]). * Moira Cruz RN - 02/22/2025 1:17 PM EDT Spoke with Dr. Davis who states pt to follow with [facility] surgical oncology. Faxed FYI to [facility] On[facility] to make aware, confirmation received. * Moira Cruz RN - 02/22/2025 1:17 PM EDT Incoming call from Princess at [facility] hematology, Dr. Mar aware of result, typewriter operator automatic explained to her that pt will be following with [facility] On[facility] at this point. * Moira Cruz RN - 02/22/2025 1:17 PM EDT Plan per Dr. Davis today in office: - pt to follow with [facility] Surgical Oncology. Confirm that pt has appointment set up - pt to follow with [facility] Medical Oncology (Dr. Mar). Dr. Davis spoke with Dr. Mar today by phone and plan is for pt to see this office as well. Called [facility] On[facility] and left voicemail asking for pt to get appointment with Dr. Mar in the next 1-2 days and to call back [phone]. * Bijal Irene RN - 02/22/2025 1:17 PM EDT Incoming call from Princess from [facility] Hematology Oncology who reports wanted to let us know that pt was seen in thier office this morning, just left. She reports Dr Mar's note should be done by the end of today. documented in this encounter Miscellaneous Notes * Significant Event - Shanthiriley Haji - 02/22/2025 2:31 PM EDT 02/22/25 1327 Hospital Discharges and Admission for [facility] Type of Visit Hospital Admission Date of Admission/Visit 02/18/25 Date of Discharge 02/21/25 Facility [facility] Diagnosis Pancreatic Cancer Disposition Discharged Home Follow-Up Actions Follow-Up Needed Provider appointment Follow-Up Outcome Spoke to Patient Initial Contact Date 02/22/25 CC contacted patient for an HDF. Patient was admitted to [facility] on 02/18/2025 and discharged on 02/21/2025 with [...] 9:30 AM EDT Office Visit [facility] [address] [place] [address] Emilie Davis MD 230 [place] [address] 03/24/2025 11:00 AM EST Clinical Support [facility] 230 [place] [address] Medina Lewis, RONALD 230 [place] [address] 06/04/2025 3:00 PM EST Office Visit [facility] [address] [place] [address] Merissa Donis OD 230 [place] [address] documented as of this encounter Visit Diagnoses Not on filedocumented in this encounter Additional Health Concerns Assessment Noted Time PHQ-9 Depression Total Score: 3 04/30/20 9:17 AM EST documented as of this encounter Care Teams Ultrasound Supervisor Relationship Specialty Start Date End Date Emilie Davis MD 230 [place] [address] PCP - General Family Medicine 05/13/18 Morales Echavarria FNP [address] [place] [address] Nurse Practitioner Family Medicine 04/16/23August [address] [place] [address] Gastroenterology 05/26/24 Fred Castanon [address] [place] [address] 07/21/24 Ele Mar MD [address] [place] [address] Hematology and Oncology 02/22/25 Marina Brown MD Rheumatology 02/10/25 documented as of this encounter
--- OUTSIDE RECORDS SUMMARY | 2025-02-25 18:47 | XMS_ITS | Encounter Summary ---
Author Organization [employer] [facility] Address [address] [facility] 7t [place] [address] Care Team Providers Care Subsea Engineer Name Role Phone Emilie Davis MD Primary Care Provider [phone]- [phone] Morales Echavarria Unavailable Unavailable August Unavailable Fred Castanon Unavailable Ele Mar MD Unavailable [phone] Encounter Details Date Type Department Care Team (Late st Contact Info) Description 04/22/2022 Orders Only [facility] [address] [place], [place] [phone] Emilie Davis MD [address] [place] [address] [phone] HSV (herpes simplex virus) anogenital infection (Primary [...] [facility] [address] [place] [address] [phone] Emilie Davis MD 230 [place], [place] [phone] 03/24/2025 11:00 AM EST Clinical Support [facility] [address] [place] [address] Medina Lewis, RONALD [address] [place] [address] 06/04/2025 3:00 PM EST Office Visit [facility] [address] [place] [address] Merissa Donis, OD 230 [place] [address] documented as of this encounter Visit Diagnoses Diagnosis HSV (herpes simplex virus) anogenital infection- Primary Herpes simplex without mention of complication Pancreatic mass- Primary Unspecified disease of pancreas documented in this encounter Care Teams Subsea Engineer Relationship Specialty Start Date End Date Emilie Davis MD [address] [place] [address] PCP - General Family Medicine 05/13/18 Morales Echavarria FNP [address] [place] [address] Nurse Practitioner Family Medicine 04/16/23August [address] [place] [address] Gastroenterology 05/26/24 Fred Castanon [address] [place] [address] 07/21/24 Ele Mar MD [address] [place] [address] Hematology and Oncology 02/22/25 Marina Brown MD Rheumatology 02/10/25 documented as of this encounter
--- OUTSIDE RECORDS SUMMARY | 2025-02-25 18:47 | XMS_ITS | Encounter Summary ---
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 file Not on file documented as of this encounter Plan of Treatment Upcoming Encounters Date Type Department Care Team (Late st Contact Info) Description 03/03/2025 9:30 AM EDT Office Visit [facility] [address] [place] [address] Emilie Davis MD 230 [place] [address] 03/24/2025 11:00 AM EST Clinical Support [facility] [address] [place] [address] Medina Lewis, RONALD 230 [place] [address] 06/04/2025 3:00 PM EST Office Visit [facility] [address] [place] [address] Merissa Donis OD 230 [place] [address] documented as of this encounter Procedures Procedure [...] documented as of this encounter Care Teams Signals Collection Technician Relationship Specialty Start Date End Date Emilie Davis MD [address] [place] [address] PCP - General Family Medicine 05/13/18 Morales Echavarria FNP [address] [place] [address] Nurse Practitioner Family Medicine 04/16/23OrozcoAugust [address] [place] [address] Gastroenterology 05/26/24 Fred Castanon [address] [place] [address] 07/21/24 Ele Mar MD [address] [place] [address] Hematology and Oncology 02/22/25 Marina Brown MD Rheumatology 02/10/25 documented as of this encounter
--- OUTSIDE RECORDS SUMMARY | 2025-02-25 18:47 | XMS_ITS | Encounter Summary ---
Author Organization [employer] Address [address] [facility] [address] 7t [place] [address] Care Team Providers Care Acid Strength Inspector Name Role Phone Emilie Davis MD Primary Care Provider [phone] Morales Echavarria Unavailable Unavailable August Unavailable Fred Castanon Unavailable Ele Mar MD Unavailable [phone] Reason for Visit * Reason Onset Date Comments Referral 07/20/2024 Encounter Details Date Type Department Care Team (Late st Contact Info) Description 07/20/2024 Telephone [facility] 230 [place], [place] [phone] Emilie Davis MD 230 [place], [place] [phone] Referral Social History Tobacco Use Types Packs/Day [...] 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 Contact pt at [phone] documented in this encounter Plan of Treatment Upcoming Encounters Date Type Department Care Team (Late st Contact Info) Description 03/03/2025 9:30 AM EDT Office Visit [facility] [address] [place] [address] Emilie Davis MD [address] [place] [address] 03/24/2025 11:00 AM EST Clinical Support [facility] [address] [place] [address] Medina Lewis, RN [address] [place] [address] 06/04/2025 3:00 PM EST Office Visit [facility] [address] [place] [address] Merissa Donis, OD [address] [place] [address] documented as of this encounter Visit Diagnoses Not on filedocumented in this encounter Additional Health Concerns Assessment Noted Time PHQ-9 Depression Total Score: 3 04/30/20 9:17 AM EST documented as of this encounter Care Teams Acid Strength Inspector Relationship Specialty Start Date End Date Emilie Davis MD 230 [place] [address] PCP - General Family Medicine 05/13/18 Morales Echavarria FNP [address] [place] [address] Nurse Practitioner Family Medicine 04/16/23August [address] [place] [address] Gastroenterology 05/26/24 Fred Castanon [address] [place] [address] 07/21/24 Ele Mar MD [address] [place] [address] Hematology and Oncology 02/22/25 Marina Brown MD Rheumatology 02/10/25 documented as of this encounter
--- OUTSIDE RECORDS SUMMARY | 2025-02-25 18:47 | XMS_ITS | Encounter Summary ---
Author Organization [facility] Address [address] [place] [address] Phone Care Team Providers Care Medical Director Of Hospice Name Role Phone Emilie Davis MD Primary Care Provi baldomero Encounter Details Date Type Department Care Team (Late st Contact Info) Description 10/28/2018 Procedure Pass OR Admitting Dept - Virtual Department [address] [place] [address] Social History Tobacco Use Types Packs/Day Years [...] filedocumented in this encounter Care Teams Medical Director Of Hospice Relationship Specialty Start Date End Date Emilie Davis MD [address] [place] [address] PCP - General Family Medicine 06/03/18 documented as of this encounter Additional Source Comments The information contained in this document represents components of the legal health record. It is not the complete legal health record.[facility]
--- OUTSIDE RECORDS SUMMARY | 2025-02-25 18:47 | XMS_ITS | Encounter Summary ---
Author Organization [employer] Address [address] [facility] 7[address] [place] [address] Care Team Providers Care Decorative Greens Cutter Name Role Phone RyanEmilie MD Primary Care Provider [phone] Morales Echavarria Unavailable Unavailable August Unavailable Fred Castanon Unavailable Ele Mar MD Unavailable [phone] Encounter Details Date Type Department Care Team (Late st Contact Info) Description 02/24/2025 Orders Only [facility] [address] [place], [place] [phone] Provider, MD Sammy Pancreatic mass (Primary Dx) Social History Tobacco Use Types [...] housing situation today? 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 on file Not on file documented as of this encounter Plan of Treatment Upcoming Encounters Date Type Department Care Team (Late st Contact Info) Description 03/03/2025 9:30 AM EDT Office Visit [facility] MEDICINE [address] [place] [address] Emilie Davis MD [address] [place] [address] 03/24/2025 11:00 AM EST Clinical Support [facility] [address] [place] [address] Medina Lewis, RONALD [address] [place] [address] 06/04/2025 3:00 PM EST Office Visit [facility] OPTOMETRY [address] [place] [address] Merissa Donis OD [address] [place] [address] documented as of this encounter Procedures Procedure Name Priority Date/Time Associated Diagnosis Comments CT CHEST W CONTRAST Routine 02/23/2025 2:19 PM EDT documented in this encounter Results * CT Chest w/ Contrast (02/23/2025 2:19 PM EDT) Anatomical Region Laterality Modality Body, Chest Computed Tomogra phy us Historical Provider MD [place] CT PROCEDURES Final R esult documented in this encounter Visit Diagnoses Diagnosis Pancreatic mass- Primary Unspecified disease of pancreas Pancreatic mass- Primary Unspecified disease of pancreas documented in this encounter Additional Health Concerns Assessment Noted Time PHQ-9 Depression Total Score: 3 04/30/20 9:17 AM EST documented as of this encounter Care Teams Decorative Greens Cutter Relationship Specialty Start Date End Date Emilie Davis MD [address] [place] [address] PCP - General Family Medicine 05/13/18 Morales Echavarria FNP [address] [place] [address] Nurse Practitioner Family Medicine 04/16/23 Aida Orozco [address] [place] [address] Gastroenterology 05/26/24 Fred Castanon [address] [place] [address] 07/21/24 Ele Mar MD [address] [place] [address] Hematology and Oncology 02/22/25 Marina Brown MD Rheumatology 02/10/25 documented as of this encounter
--- OUTSIDE RECORDS SUMMARY | 2025-02-25 18:47 | XMS_ITS | Encounter Summary ---
Author Organization [employer] [facility] Address [address] [facility] [address] [address] [place] [address] Care Team Providers Care Lapel Stitcher Name Role Phone Emilie Davis MD Primary Care Provider [phone] Morales Echavarria Unavailable Unavailable August Unavailable Fred Castanon Unavailable Ele Mar MD Unavailable [phone] Reason for Visit * Reason Onset Date Comments Referral 07/18/2022 Encounter Details Date Type Department Care Team (Late st Contact Info) Description 07/18/2022 Telephone [facility]INE [address] [place] [address] Emilie Davis MD [address] [place] [address] Referral Social History Tobacco Use Types Packs/Day [...] to [facility]. Please contact pt [phone] documented in this encounter Plan of Treatment Upcoming Encounters Date Type Department Care Team (Late st Contact Info) Description 03/03/2025 9:30 AM EDT Office Visit [facility] MEDICINE [address] [place] [address] Emilie Davis MD [address] [place] [address] 03/24/2025 11:00 AM EST Clinical Support [facility] MEDICINE [address] [place] [address] Medina eLwis, RONALD [address] [place] [address] 06/04/2025 3:00 PM EST Office Visit [facility] OPTOMETRY [address] [place] [address] Merissa Donis, OD [address] [place] [address] documented as of this encounter Visit Diagnoses Not on filedocumented in this encounter Care Teams Lapel Stitcher Relationship Specialty Start Date End Date Emilie Davis MD [address] [place] [address] PCP - General Family Medicine 05/13/18 Morales Echavarria FNP [address] [place] [address] Nurse Practitioner Family Medicine 04/16/23August [address] [place] [address] Gastroenterology 05/26/24 Fred Castanon [address] [place] [address] 07/21/24 Ele Mar MD [address] [place] [address] Hematology and Oncology 02/22/25 Marina Brown MD Rheumatology 02/10/25 documented as of this encounter
--- OUTSIDE RECORDS SUMMARY | 2025-02-25 18:47 | XMS_ITS | Encounter Summary ---
Author Organization [employer] Address [address] [facility] 7t [place] [address] Care Team Providers Care Wastewater Treatment Plant Operator Name Role Phone Emilie Davis MD Primary Care Provider [phone] Morales Echavarria Unavailable Unavailable August Unavailable Fred Castanon Unavailable Ele Mar MD Unavailable [phone] Reason for Visit * Reason Comments Med Refill Encounter Details Date Type Department Care Team (Late st Contact Info) Description 01/17/2024 Refill [facility] MEDICINE [address] [place], [place] [phone] Emilie Davis MD [address] [place], [place] [phone] 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) Social [...] Description 03/03/2025 9:30 AM EDT Office Visit [facility] MEDICINE [address] [place] [address] Emilie Davis MD [address] [place] [address] 03/24/2025 11:00 AM EST Clinical Support [facility] MEDICINE [address] [place] [address] Medina Lewis, RN [address] [place] [address] 06/04/2025 3:00 PM EST Office Visit [facility] OPTOMETRY [address] [place] [address] Merissa Donis, OD [address] [place] [address] documented as of this encounter Visit Diagnoses Diagnosis Gender 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- Primary Pancreatic mass- Primary Unspecified disease of pancreas documented in this encounter Additional Health Concerns Assessment Noted Time PHQ-9 Depression Total Score: 3 04/30/20 23 9:17 AM EST documented as of this encounter Care Teams Wastewater Treatment Plant Operator Relationship Specialty Start Date End Date Emilie Davis MD [address] [place] [address] PCP - General Family Medicine 05/13/18 Morales Echavarria FNP [address] [place] [address] Nurse Practitioner Family Medicine 04/16/23 Pam Aida [address] [place] [address] Gastroenterology 05/26/24 Fred Castanon [address] [place] [address] 07/21/24 Ele Mar MD [address] [place] [address] Hematology and Oncology 02/22/25 Marina Brown MD Rheumatology 02/10/25 documented as of this encounter
--- OUTSIDE RECORDS SUMMARY | 2025-02-25 18:47 | XMS_ITS | Encounter Summary ---
Author Organization [employer] [facility] Address [address] [facility] 7t [place] [address] Care Team Providers Care Thread Marker Name Role Phone Emilie Davis MD Primary Care Provider Morales Echavarria Unavailable Unavailable August Unavailable Fred Castanon Unavailable Ele Mar MD Unavailable [phone] Encounter Details Date Type Department Care Team (Late st Contact Info) Description 05/27/[address] [address] Emilie Davis MD [address] [place] [address] [phone] Social History Tobacco Use Types Packs/Day Years [...] Description 03/03/2025 9:30 AM EDT Office Visit [address] [phone] Emilie Davis MD [address] [place] [address] 03/24/2025 11:00 AM EST Clinical Support [address] [place] [address] Medina Lewis, RN [address] [place] [address] 06/04/2025 3:00 PM EST Office Visit [facility] OPTOMETRY [address] [place] [address] Merissa Donis, OD [address] [place] [address] documented as of this encounter Procedures Procedure [...] ORDERABLES F inal Result Performing Organization Address City/[facility]/ZIP Co de Phone Number [facility] [address] [place] [address] [phone] documented in this encounter Visit Diagnoses Not on filedocumented in this encounter Care Teams Thread Marker Relationship Specialty Start Date End Date Emilie Davis MD [address] [place] [address] PCP - General Family Medicine 05/13/18 Morales Echavarria FNP [address] [place] [address] Nurse Practitioner Family Medicine 04/16/23 Pam Aida [address] [place] [address] Gastroenterology 05/26/24 Fred Castanon [address] [place] [address] 07/21/24 Ele Mar MD [address] [place] [address] Hematology and Oncology 02/22/25 Marina Brown MD Rheumatology 02/10/25 documented as of this encounter
--- OUTSIDE RECORDS SUMMARY | 2025-02-25 18:47 | XMS_ITS | Clinical Summary ---
Author Organization [employer] Address [address] [place] [address] Care Team Providers Care Blender Operator Name Role Phone Emilie Davis MD Primary Care Provider [phone] Morales Echavarria Unavailable Unavailable August Unavailable Fred Castanon Unavailable Ele Mar MD Unavailable [phone] Allergies Active Allergy Reactions Criticality Noted Date Comments Penicillins Anaphylaxis,Rash High 05/16/2017 Sumatriptan 10/28/2018 Medications * This document contains information received from the source organization and may not represent a complete record from that organization. Needle, Disp, (BD Disp [place]) 25G X 5/8 miscIndications :Gender dysphoria in [...] 25 Active cholecalciferol (Vitamin D-3) 1.25 MG (16505 UT) capsule Take 1 capsule by mouth [...] Overall slight worsening at L2-3 levels Pancreatic adenocarcinoma (CMS/HCC) 01/21/2025 Overview (02/25/2025): - diagnosed with pancreatic adenocarcinoma in January 2025. He presented with symptoms of chronic dysphagia and abdominal pain -MRI abdomen on 01/2025 for acute pancreatitis. This revealed hypoenhancing solid mass measuring 2.5 x 2.7 cm in the pancreatic head/uncinate process which was compressing the distal CBD and causing moderate to severe stenosis. Upstream extrahepatic and intrahepatic ducts were mildly dilated. Status post cholecystectomy. This was read as concerning for malignancy. ERCP and tissue sampling was recommended. -Patient underwent endoscopic ultrasound and biopsy of this mass at [facility] on 02/18/2025. FNA of pancreatic head mass from 02/18/2025 revealed adenocarcinoma. -He had another CT abdomen/pelvis with contrast on 02/18/2025 which shows 2.7 x 1.6 cm mass near the head of pancreas/uncinate process that may be part of pancreas or a large peripancreatic lymph node resulting in mild intrahepatic biliary tree dilatation and severe dilatation of the common bile ductwhich measures 1.7 cm. -Staging CT chest with contrast performed at [facility] on 02/23/2025 showed no evidence of metastaticdisease in chest. Mild coronary artery calcifications, calcified granulomas with soft tissue nodules unchanged since 2018 and considered benign. -PET scan has been ordered. -Clinical stage T2 N0 -Seen by Dr. Jj oncologist 02/25/25 where she discussed role of preoperative or neoadjuvant chemotherapy for downsizing tumor. He was referred to [facility] surgical Oncology. -If the plan is to go ahead with chemotherapy, he would get a Port-A-Cath placed by intervention Radiology. Chemotherapy with FOLFIRINOX regimen will be discussed. -Family history of breast cancer and personal history of pancreatic cancer. BRCA1 and 2 and 40 gene panel has been sent today to [facility]. -Chronic dysphagia and underweight. Nutrition consult has been placed. 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 [...] care facilitated by Alessio. -dental home is [facility] -health care proxy filed 03/16/24 Assessment & Plan (03/17/2024 6:12 AM EST): -next physical exam due after 03/16/2025 -eye care facilitated by Alessio. -dental home is [facility] -health care proxy filed 03/16/24 Assessment & Plan (03/22/2023 9:17 AM EST): -next physical exam due after 12/07/2023. -eye care facilitated by Alessio. -dental home is outside of [facility] Assessment & Plan (12/06/2022 10:19 AM EDT): -next physical exam dueafter 12/07/2023. -eye care facilitated by Alessio. -dental home is outside of [facility] Hx of hepatitis C 11/26/2022 Overview [...] rays suggests osteoarthritis. Seen by rheumatology in [place]. Ibuprofen and NSAIDs cause gastritis. Minimal relief with acetaminophen. He was referred back to rheumatology in [place] 08/23/2020 but provider left the area. started on Tramadol. Take 3 times per week. He is not taking at this time -note from meat supervisor Dr. Marina Brown MD from 02/09/25 reviewed Assessment & Plan (03/17/2024 6:08 AM EST): X rays suggests osteoarthritis. Seen by rheumatology in [place]. Ibuprofen and NSAIDs cause gastritis. Minimal relief with acetaminophen. He was referred back to rheumatology in [place] 08/23/2020 but provider left the area. started on Tramadol. Take 3 times per week. He is not taking at this time. Assessment & Plan (03/22/2023 9:15 AM EST): X rays suggests osteoarthritis. Seen by rheumatology in [place]. Ibuprofen and NSAIDs cause gastritis. Minimal relief with acetaminophen. He was referred back to rheumatology in [place] 08/23/2020 but provider left the area. started on Tramadol. Take 3 times per week. Will need COT in the future. Assessment & Plan (12/06/2022 8:54 AM EDT): X rays suggests osteoarthritis. Seen by rheumatology in [place]. Ibuprofen and NSAIDs cause gastritis. Minimal relief with acetaminophen. He was referred back to rheumatology in [place] 08/23/2020 but provider left the area. started on Tramadol. Take 3 times per week. Will need COT in the future. Assessment & Plan (10/11/2022 9:58 AM EDT): X rays suggests osteoarthritis. Seen by rheumatology in [place]. Ibuprofen and NSAIDs cause gastritis. Minimal relief with acetaminophen. He was referred back to rheumatology in [place] 08/23/2020 but provider left the area. started [...] Now with palpitations. Will refer to his community development manager for bradycardia. Assessment & Plan (03/22/2023 9:16 AM EST): Sinus bradycardia and asymptomatic. Pt states he always has slow heart rate Pt repots heart rate in 40s recorded with home BP monitor with symptoms of dizziness recorded at home. Now with palpitations. Will refer to his community development manager for bradycardia. Assessment & Plan (12/06/2022 8:54 AM EDT): Sinus bradycardia and asymptomatic. Pt states he always has slow heart rate Pt repots heart rate in 40s recorded with home BP monitor with symptoms of dizziness recorded at home. Now with palpitations. Will refer to his community development manager for bradycardia. Assessment & Plan (10/11/2022 9:58 AM EDT): Sinus bradycardia and asymptomatic. Pt states he always has slow heart rate Pt repots heart rate in 40s recorded with home BP monitor with symptoms of dizziness recorded at home. Now with palpitations. Will refer to his community development manager for bradycardia. Generalized abdominal pain 06/25/2021 Overview (01/28/2025): Pt reports weight loss, loss of appetite, abdominal discomfort and gas. He is on omeprazole 20mg daily. Hx colonoscopy 2017 with diverticulosis, no polyps Hx EGD 2019 with mild reflux gastritis and GE stricture, dilated Pt feels it may be related to anxiety and it can localize to LLQ c/w IBS H.pylori negative 05/2021 He requests new referral for GI. Insurance no longer accepted at [facility]. -EGD scheduled for December 2021. -10/19/24 [...] for GI. Insurance no longer accepted at [facility]. -EGD scheduled for December 2021. Assessment [...] for GI. Insurance no longer accepted at [facility]. -EGD scheduled for December 2021. Assessment [...] for GI. Insurance no longer accepted at [facility]. -EGD scheduled for December 2021. Assessment [...] for GI. Insurance no longer accepted at [facility]. -EGD scheduled for December 2021. History of non-ST elevation myocardial infarctio n (NSTEMI) 06/25/2021 Overview (10/15/2024): Hx NSTE MS 09/2017. See CAD for plan. Assessment & Plan (05/20/2024 4:29 PM EST): Hx NSTE MS 09/2017 -continue oscar -Stress test without evidence of ischemia 04/08/18 -he held statin and ASA due to GI upset -trial of restarting statin 01/[address] on 05/08/24 showed Coronary artery atherosclerosis. Pt wants to get reestablished with cardiology. -referral sent 05/20/24 Assessment & Plan (03/22/2023 9:17 AM EST): Hx NSTE MS 09/2017 -continue oscar -Stress test without evidence of ischemia 04/08/18 -he held statin and ASA due to GI upset -trial of restarting statin 01/2019 Assessment & Plan (12/06/2022 8:55 AM EDT): Hx NSTE MS 09/2017 -continue oscar -Stress test without evidence of ischemia 04/08/18 -he held statin and ASA due to GI upset -trial of restarting statin 01/2019 Assessment & Plan (10/11/2022 9:57 AM EDT): Hx NSTE MS 09/2017 -continue oscar -Stress test without evidence of ischemia 04/08/18 -he held statin and ASA due to GI upset -trial of restarting statin 01/2019 Seasonal allergies 06/25/2021 Gender 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 10/03/2018 Overview (03/26/2024): Pt identifies as male and is changed his name in [place] October 2020. -He restarted testosterone 08/2020 -S/p chest reconstruction 10/2018 -Testosterone was 654 on 10/2022 Lab Results Component Value Date TESTTOTAL 1641 (A) 03/18/2024 HGB 16.2 (H) 03/18/2024 HGB 15.8 10/18/2022 HCT 47.3 (H) 03/18/2024 Goal testosterone levels 350-700ng/dl. Assessment & Plan (03/17/2024 6:12 AM EST): Pt identifies as male and is changing his name in [place] October 2020. He restarted testosterone 08/2020 S/p chest reconstruction 10/2018 Pt would like to switch small needle to subcutaneous instead. 25 gague needles sent 12/06/2022 Testosterone was 654 on 10/2022. Assessment & Plan (03/22/2023 9:16 AM EST): Pt identifies as male and is changing his name in [place] October 2020. He restarted testosterone 08/2020 S/p chest reconstruction 10/2018 Pt would like to switch small needle to subcutaneous instead. 25 gague needles sent 12/06/2022 Testosterone was 654 on 10/2022. Assessment & Plan (12/06/2022 11:18 AM EDT): Pt identifies as male and is changing his name in [place] October 2020. He restarted testosterone 08/2020 S/p chest reconstruction 10/2018 Pt would like to switch small needle to subcutaneous instead. 25 gague needles sent 12/06/2022 Testosterone was 654 on 10/2022. Assessment & Plan (10/11/2022 9:59 AM EDT): Pt identifies as male and is changing his name in [place] October 2020. He restarted testosterone 08/2020 S/p chest reconstruction 10/[address] scan, lung 10/04/2017 Overview (05/20/2024): -Ct scan in [facility] on 12/25/2017 showed multiple indeterminate nodules, [...] 11/15/23 and NO SHOW. Pt can call [phone] to schedule mariely. number given to call 03/16/24 -CT 05/08/24 No acute intrathoracic findings. Calcified granulomas present bilaterally. No suspicious pulmonary nodule identified. Air-fluid level present within the midthoracic esophagus can be associated with gastroesophageal reflux disease and esophageal dysmotility. Coronary artery atherosclerosis. Assessment & Plan (05/20/2024 4:05 PM EST): -Ct scan in [place] [facility] on 12/25/2017 showed multiple indeterminate nodules, [...] 11/15/23 and NO SHOW. Pt can call [phone] to schedule mariely. number given to call 03/16/24 -CT 05/08/24 No acute intrathoracic findings. Calcified granulomas present bilaterally. No suspicious pulmonary nodule identified. Air-fluid level present within the midthoracic esophagus can be associated with gastroesophageal reflux disease and esophageal dysmotility. Coronary artery atherosclerosis. Assessment & Plan (03/17/2024 6:13 AM EST): -Ct scan in [place] ER on 12/25/2017 showed multiple indeterminate nodules, [...] 11/15/23 and NO SHOW. Pt can call [phone] to schedule mariely. number given to call 03/16/24 Assessment & Plan (03/22/2023 9:16 AM EST): -Ct scan in [place] ER on 12/25/2017 showed multiple indeterminate nodules, largest was solid and measured 2mm. -Given that the Pt has a tobacco Hx and quit in 2018 we referrred to pulmonology that was likely distrupted by the pandemic. -Will ordered repeat CT of chest to follow the nodles. Assessment & Plan (12/06/2022 10:18 AM EDT): -Ct scan in [place] ER on 12/25/2017 showed multiple indeterminate nodules, [...] referred for OP services and referral to [facility] Psychopharmacology clinic. Provided Crisis contact number [...] organization. Date Type Department Care Team Description 02/25/2025 1:40 PM EDT Office Visit [facility] [address], [place] [phone] Ann-Marie Muhammad MD Pain of left calf (Primary Dx); Pancreatic adenocarcinoma (CMS/HCC) (HCC) 02/25/2025 Orders Only [facility] [address] [place] [address] Ann-Marie Muhammad MD 02/25/2025 Travel 02/24/2025 Orders Only [place] [facility] [address] [place], [place] [phone] Provider, MD Sammy Pancreatic mass (Primary Dx) 02/23/2025 Patient Outreach [address] [address] Emilie Davis MD Pre-visit Planning (Pre-visit planning - LVM ) 02/22/2025 Patient Outreach [facility] [address] [place] [address] Emilie Davis MD Transition Of Care (Tcm) (Unscheduled ) 02/22/[address] [address] Emilie Davis MD Hospital Follow-up 02/19/2025 Orders Only [place] [facility] [address] [place] [address] ProviderSammy MD 02/19/[address] [phone] Emilie Davis MD 02/18/2025 Orders Only GENERIC EXTERNAL DATA DEPARTMENT Provider, Generic External Data 02/16/[address] [address] Medina Lewis, RONALD 02/09/2025 Orders Only [facility] External Provider, [facility] Chronic bilateral low back pain, unspecified whether sciatica present (Primary Dx) 02/05/2025 Orders Only [address] [address] Emilie Davis MD Depression, unspecified depression type (Primary Dx) 02/04/[address] [address] Emilie Davis MD Care Coordination; Referral 02/04/[address] [address] Emilie Davis MD Referral; Care Coordination 02/02/2025 Orders Only [address] [phone] Kayla Sellers, RONALD 02/01/2025 Orders Only GENERIC EXTERNAL DATA DEPARTMENT Provider, Generic External Data 01/27/2025 11:00 AM EDT Clinical Support [address] [address] Medina Lewis, RN On pre-exposure prophylaxis for HIV (Primary Dx) 01/27/2025 Orders Only [address] [address] Emilie Davis MD 01/27/2025 Travel 01/21/2025 Travel 01/19/2025 Orders Only [facility] External Provider, [facility] Pancreatic mass (Primary Dx) 01/15/2025 Orders Only GENERIC EXTERNAL DATA DEPARTMENT Provider, Generic External Data 01/14/2025 Orders Only [facility] External Provider, [facility] Generalized abdominal pain (Primary Dx) 01/08/2025 Orders Only GENERIC EXTERNAL DATA DEPARTMENT Provider, Generic External Data 01/07/[address] [address] Emilie Davis MD Call Back Request; Injectable PrEP Communication 01/04/2025 Patient Outreach [address] [address] Emilie Davis MD Transition Of Care (Tcm) (HDF unscheduled) 01/04/[address] [address] Emilie Davis MD Nurse Triage 01/04/[address] [address] Emilie Davis MD Hospital Follow-up; No Show (Pt no show for hdf ) 12/29/2024 Orders Only GENERIC EXTERNAL DATA DEPARTMENT Provider, Generic External Data 11/26/2024 9:30 AM EDT Clinical Support [address] [address] Medina Lewis, RN On pre-exposure prophylaxis for HIV (Primary Dx) 11/26/2024 Orders Only [address] [address] Emilie Davis MD 11/26/2024 Travel 11/26/[address] [address] Emilie Davis MD Appointment Request 11/25/2024 Telephone [facility] [address] [place] [address] Emilie Davis MD February recall from Last [...] 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 Not on [...] Mass Index 17.02 02/25/2025 1:51 PM EDT Plan of Treatment Upcoming Encounters Date Type Department Care Team (Late st Contact Info) Description 03/03/2025 9:30 AM EDT Office Visit [facility] [address] [place] [phone] Emilie Davis MD [address] [place] [phone] 03/24/2025 11:00 AM EST Clinical Support [address] [address] Medina Lewis, RONALD [address] [place] [phone] 06/04/2025 3:00 PM EST Office Visit [facility] [address] [place] [address] Merissa Donis, OD [address] [place] [address] Health Maintenance Due Date Last Done Comments [...] Screening 05/20/2025 05/20/2024, 04/30/20 23 Tobacco Screening 02/25/2026 02/25/2025 HPV/Cotest 03/22/2028 03/22/2023, 11/11, 12/06/2017 Pap Smear [...] Procedure Name Priority Date/Time Associated Diagnosis Comments LOWER EXTREMITY VENOUS DUPLEX LEFT Routine 02/25/2025 3:27 PM EDT XR TIBIA FIBULA 2 VIEWS LEFT STAT 02/25/2025 3:14 PM EDT Pain of left calf CT CHEST W CONTRAST Routine 02/23/2025 2 :[address] ABDOMEN PELVIS W CONTRAST Routine 02/18/2025 [...] 01/27/2025 11:53 AM EDT CHLAMYDIA/GONORRHEA THROAT SWAB ([facility]) Routine 01/27/2025 MR ABDOMEN W AND WO [...] Recently Relevant to Health Maintenance Results * Lower Extremity Venous Duplex (02/25/2025 3:27 PM EDT) 02/25/2025 3:27 PM EDT Narrative [facility] - 02/25/2025 3:48 PM EDT [place] [address] Ultrasound Report Signed Patient: Harriet Valdez MR#: [id number] : 1970 Acct:[id number] Age/Sex: 55 / F ADM Date: 02/25/25 Loc: .US Attending Dr: Ann-Marie Muhammad MD Ordering Physician: Ann-Marie Muhammad MD Date of Service: 02/25/25 Procedure(s): US venous duplex LE LT Accession Number(s): [id number] cc: Emilie Davis MD; Ann-Marie Muhammad MD Reason for Exam: left calf pain EXAMINATION: US TRIPLEX LOWER EXTREMITY, LEFT CLINICAL INFORMATION: Left calf pain. COMPARISON: None available. TECHNIQUE: Color-flow triplex imaging with spectral analysis and compression Doppler were performed on the left lower extremity. FINDINGS: Respiratory variation, normal compression and augmented flow are noted throughout the left lower extremity. The visualized common femoral vein, superficial femoral vein, profunda femoral vein, popliteal vein and midcalf peroneal and posterior tibial venous segments show no evidence of deep venous thrombosis. There is no Du's cyst. US/US venous duplex LE LT IMPRESSION: No evidence of deep venous thrombosis involving the left lower extremity. Electronically signed by: Micah Hastings MD 02/25/2025 03:46 PM EDT RP Dictated By: Micah Hastings MD Signed By: <Electronically signed by Micah Hastings MD in OV> 02/25/25 1546 DD/ 1527 TD/TT: 02/25/25 153 [employer] Teacher: Procedure Note Donotuseinterpreter, Image - 02/25/2025 [place] [address] Ultrasound Report Signed Patient: Harriet ValdezMR#: [id number] : 1970Acct:[id number] Age/Sex: 55 / FADM Date: 02/25/25 Loc: .US Attending Dr: Ann-Marie Muhammad MD Ordering Physician: Ann-Marie Muhammad MD Date of Service: 02/25/25 Procedure(s): US venous duplex LE LT Accession Number(s): [id number] cc: Emilie Davis MD; Ann-Marie Muhammad MD Reason for Exam: left calf pain EXAMINATION: US TRIPLEX LOWER EXTREMITY, LEFT CLINICAL INFORMATION: Left calf pain. COMPARISON: None available. TECHNIQUE: Color-flow triplex imaging with spectral analysis and compression Doppler were performed on the left lower extremity. FINDINGS: Respiratory variation, normal compression and augmented flow are noted throughout the left lower extremity. The visualized common femoral vein, superficial femoral vein, profunda femoral vein, popliteal vein and midcalf peroneal and posterior tibial venous segments show no evidence of deep venous thrombosis. There is no Du's cyst. US/US venous duplex LE LT IMPRESSION: No evidence of deep venous thrombosis involving the left lower extremity. Electronically signed by: Micah Hastings MD 02/25/2025 03:46 PM EDT RP Dictated By: Micah Hastings MD Signed By: <Electronically signed by Micah Hastings MD in OV> 02/25/25 1546 DD/ 1527 TD/TT: 02/25/25 153 [employer]eral [employer] Teacher: us Ann-Marie Muhammad MD CV VASCULAR PROCEDURES Final Result [facility] [address] [place] [phone] * XR Tibia Fibula 2 Views Left (02/25/2025 3:14 PM EDT) Anatomical Region Laterality Modality Lower Extremities, Lower Leg Left Rad iographic Imaging 02/25/2025 3:14 PM EDT Narrative 02/25/2025 3:28 PM EDT [address] [address] XRay Report Signed Patient: Harriet Valdez MR#: [id number] : 1970 Acct:[id number] Age/Sex: 55 / F ADM Date: 02/25/25 Loc: .US Attending Dr: Ann-Marie Muhammad MD Ordering Physician: Ann-Marie Muhammad MD Date of Service: 02/25/25 Procedure(s): XR tibia fibula LT 2V Accession Number(s): [id number] cc: Emilie Davis MD; Ann-Marie Muhammad MD [...] 02/25/25 1525 DD/ 1514 TD/TT: 02/25/25 1521 [employer] Teacher: Procedure Note Donotuseinterpreter, Image - 02/25/[address] [address] XRay Report Signed Patient: Harriet ValdezMR#: [id number] : 1970Acct:[id number] Age/Sex: 55 / FADM Date: 02/25/25 Loc: HO.US Attending Dr: Ann-Marie Muhammad MD Ordering Physician: Ann-Marie Muhammad MD Date of Service: 02/25/25 Procedure(s): XR tibia fibula LT 2V Accession Number(s): [id number] cc: Emilie Davis MD; Ann-Marie Muhammad MD [...] Deras MD Signed By: <Electronically signed by Mainsh Deras MD in OV> 02/25/25 1525 DD/ 1514 TD/TT: 02/25/25 1521 [employer] Teacher: Ann-Marie Muhammad MD IMG XR PROCEDURES Final Resul t * CT Chest w/ Contrast (02/23/2025 2:19 PM EDT) Anatomical Region Laterality Modality Body, Chest Computed Tomogra phy Historical Provider IMG CT PROCEDURES Final R esult * CT Abdomen Pelvis w/ Contrast (02/18/2025 9:22 PM EDT) Only the most recent of2 resultswithin the time period is included. Anatomical Region Laterality Modality Body, Pelvis, Abdomen Computed T omography 02/18/2025 9:22 PM EDT Narrative 02/18/2025 9:23 PM EDT [address] [address] [address] Scan Report Signed Patient: Harriet Valdez MR#: [id number] : 1970 Acct:[id number] Age/Sex: 55 / F ADM Date: 02/18/25 Loc: HO.ED Attending Dr: Ordering Physician: Bradford Rojas Date of Service: 02/18/25 Procedure(s): CT abdomen pelvis w IV con Accession Number(s): [id number] cc: Emilie Davis MD; Bradford Rojas Report Number: [id number]: Total DLP = 284.00 mGy-cm Reason for [...] in OV> 02/18/252121 DD/ 21 TD/TT: 02/18/252121 [employer] Teacher: Procedure Note Donotuseinterpreter, Image - 02/18/[address] [place] [address] [address] Scan Report Signed Patient: Harriet ValdezMR#: [id number] : 1970Acct:[id number] Age/Sex: 55 / FADM Date: 02/18/25 Loc: HO.ED Attending Dr: Ordering Physician: Bradford Rojas Date of Service: 02/18/25 Procedure(s): CT abdomen pelvis w IV con Accession Number(s): [id number] cc: Emilie Davis MD; Bradford Rojas Report Number: [id number]: Total DLP = 284.00 mGy-cm Reason for [...] in OV> 02/18/252121 DD/ 21 TD/TT: 02/18/252121 [employer] Teacher: [facility] External Provider IMG CT PROCEDURES Edited Result - Final * Lactic Acid (02/18/2025 8:25 PM EDT) Lactic Acid 0.9 0.5 - 2.0 mmol/L [facility] 02/18/2025 8:25 PM EDT 02/18/2025 8:28 PM EDT Generic External Data Provider LAB BLOOD ORDERAB LES Final Result [facility] [address] [place] [phone] * (ABNORMAL) CBC auto differential (02/18/2025 3:28 PM EDT) Only the most recent of4 resultswithin the time period is included. White Blood Count 16.6(H) 4.8 - 10.8 X10*3/uL [facility] Red Blood Count 5.08 4.20 - 5.50 X10*6/uL [facility] Hemoglobin 14.7 12.0 - 16.0 g/dl [facility] Hematocrit 44.9 37.0 - 47.0 % [facility] Mean Corpuscular Volume 88.4 80.0 - 98.0 fL [facility] Mean Corpuscular Hemoglobin 28.9 27.0 - 33.0 pg [facility] Mean Corpuscular HGB Conc 32.7 31.0 - 35.0 g/dl [facility] Red Cell Distribution Width 14.3 11.0 - 16.0 % [facility] Platelet Count 364 160 - 400 X10*3/uL [facility] Mean Platelet Volume 8.9(L) 9.4 - 12.3 fL [facility] Neutrophils Percent Auto 80.6(H) 45 - 73 % [facility] Imm Gran Pct Auto 0.4 0.0 - 0.4 % [facility] Lymphocytes Percent Auto 13.1(L) 20 - 40 % [facility] Monocytes Percent Auto 5.5 2 - 11 % [facility] Eosinophils Percent Auto 0.2 0 - 4 % [facility] Basophils Percent Auto 0.2 0 - 2 % [facility] NRBC Pct Auto 0.0 0.0 - 0.2 /100WBC [facility] Neutrophils Absolute Auto 13.3(H) 2.0 - 8.3 x10*3/uL [facility] Imm Gran Abs Auto 0.07(H) 0.00 - 0.03 X10*3/uL [facility] Lymphocytes Absolute Auto 2.2 1.2 - 4.9 X10*3/uL [facility] Monocytes Absolute Auto 0.9 0.1 - 1.2 X10*3/uL [facility] Eosinophils Absolute Auto 0.0 0.0 - 0.4 X10*3/uL [facility] Basophils Absolute Auto 0.0 0.0 - 0.2 X10*3/uL [facility] NRBC Abs Auto 0.000 0.0 - 0.012 X10*3/uL [facility] 02/18/2025 3:28 PM EDT 02/18/2025 3:28 PM EDT Generic External Data Provider LAB BLOOD ORDERAB LES Final Result Performing Organization Address [facility] de Phone Number [facility] [address] [place] [phone] * Lipase (02/18/2025 3:28 PM EDT) Only the most recent of3 resultswithin the time period is included. Lipase 40 8 - 78 U/L [facility] 02/18/2025 3:28 PM EDT 02/18/2025 3:28 PM EDT Generic External Data Provider LAB BLOOD ORDERAB LES Final Result Performing Organization Address [facility] de Phone Number [facility] [address] [place] [phone] * (ABNORMAL) Lactate Dehydrogenase (LD) (02/18/2025 3:28 PM EDT) Lactate Dehydrogenase 743(H) 122 - 220 U/L [facility] 02/18/2025 3:28 PM EDT 02/18/2025 3:28 PM EDT Generic External Data Provider LAB BLOOD ORDERAB LES Final Result Performing Organization Address [facility] de Phone Number [facility] [address] [place] [phone] * (ABNORMAL) Amylase (02/18/2025 3:28 PM EDT) Only the most recent of2 resultswithin the time period is included. Amylase 113(H) 28 - 100 U/L [facility] 02/18/2025 3:28 PM EDT 02/18/2025 3:28 PM EDT us Generic External Data Provider LAB BLOOD ORDERAB LES Final Result [facility] [address] [place] [phone] * EGD (02/18/2025 2:59 PM EDT) Anatomical Region Laterality Modality Endoscopy Historical Provider ENDOSCOPY PROCEDURE ORDER TATUM Final Result * MR Lumbar Spine w/o Contrast (02/09/2025 6:20 PM EDT) Anatomical Region Laterality Modality Spine, L-spine Magnetic Resonan ce 02/09/2025 6:20 PM EDT Narrative 02/10/2025 7:18 AM EDT [address] [address] Magnetic Resonance Report Signed Patient: Harriet Valdez MR#: [id number] : 1970 Acct:[id number] Age/Sex: 54 / F ADM Date: 02/09/25 Loc: HO.MRI Attending Dr: Nakul Velasco MD Ordering Physician: Nakul Velasco MD Date of Service: 02/09/25 Procedure(s): MR lumbar spine wo con Accession Number(s): [id number] cc: Emilie Davis MD; Nakul Velasco MD [...] Eric Daley MD 02/10/2025 07:15 AM EDT Dictated By: Eric Maki MD Signed By: <Electronically signed by Eric Irene MD in OV> 02/10/25 0715 DD/ 1820 TD/TT: 02/09/25 1845 [employer] Teacher: Procedure Note Helen, Image - 02/10/2025 [place] [address] Magnetic Resonance Report Signed Patient: Harriet Valdez#: [id number] : 1970Acct:[id number] Age/Sex: 54 / FADM Date: 02/09/25 Loc: HO.MRI Attending Dr: Nakul Velasco MD Ordering Physician: Nakul Velasco MD Date of Service: 02/09/25 Procedure(s): MR lumbar spine wo con Accession Number(s): [id number] cc: Emilie Davis MD; Nakul Velasco MD [...] 02/10/25 0715 DD/ 1820 TD/TT: 02/09/25 1845 [employer] Teacher: [facility] External Provider IMG MRI PROCEDURES Final Result * (ABNORMAL) CA 19-9 (02/01/2025 11:57 AM EDT) CA 19-9 671(A) <34 U/mL [facility] Comment:This test was perfor med using the Siemenschemiluminescent method. Values obtained fromdifferent assay methods cannot be usedinterchangeably. CA 19-9 levels, regardless ofvalue, should not be interpreted as absoluteevidence of the presence or absence of disease.THIS TEST WAS PERFORMED AT:[facility] [place] [phone] MALDONADO MD 02/01/2025 11:5 7 AM EDT 02/01/2025 11:57 AM EDT us Generic External Data Provider LAB BLOOD ORDERAB LES Final Result Performing Organization Address [facility]/ZIP Co de Phone Number [facility] [address] [place] [phone] * HIV-1 RNA, Quantitative, Real-Time PCR (02/01/2025 11:57 AM EDT) Only the most recent of3 resultswithin the time period is included. HIV RNA PCR Qn Copies NOT DETECTED NOT DETECTED copies/mL [facility] HIV RNA PCR Qn Log Copies NOT DETECTED NOT DETECTED [facility] Comment:Result Units: Log co pies/mLThis test was performed using Real-Time Polymerase ChainReaction.Reportable Range: 20 copies/mL to 10,000,000 copies/mL(1.30 log copies/mL to 7.00 log copies/mL).THIS TEST WAS PERFORMED AT:[facility] [address] [phone] MALDONADO MD 02/01/2025 11:5 7 AM EDT 02/01/2025 11:57 AM EDT Emilie Davis MD LAB BLOOD ORDERABLES Final Result Performing Organization Address [facility] Co de Phone Number [facility] [address] [place] [phone] * Homocysteine (02/01/2025 11:57 AM EDT) Pathologist [facility] Homocysteine 7.4 < or = 13.4 umol/L [facility] Comment:Homocysteine is incr eased by functional deficiency offolate or vitamin B12. Testing for methylmalonic aciddifferentiates between these deficiencies. Other causesof increased homocysteine include renal failure, folateantagonists such as methotrexate and phenytoin, andexposure to nitrous oxide.Salvador Stevens et al., Caitlyn [employer] Med. 1999;131(5):331-9.THIS TEST WAS PERFORMED AT:[facility] [place] [phone] MLADONADO MD 02/01/2025 11:5 7 AM EDT 02/01/2025 11:57 AM EDT Generic External Data Provider LAB BLOOD ORDERAB LES Final Result [facility] [address] [place] [phone] * POCT Rapid HIV Screening (01/27/2025 [...] included. Sodium 143 135 - 145 mmol/L [facility] Potassium 3.8 3.3 - 5.1 mmol/L [facility] Chloride 108 96 - 108 mmol/L [facility] Carbon Dioxide 30(H) 22 - 29 mmol/L [facility] Anion Gap 9(L) 12 - 20 [facility] Urea Nitrogen (BUN) 13 9 - 16 mg/dL [facility] Creatinine, Serum 0.79 0.5 - 1.4 mg/dL [facility] Estimated Glomerular Filt Rate >60 [facility] Comment:Chronic Kidney Disea se: Estimated GFR < 60 mL/min/1.61r2[place] Kidney Disease: Estimated GFR < 15 mL/min/1.73m2 Glucose 78 60 - 115 mg/dL [facility] Calcium 9.1 8.4 - 10.2 mg/dL [facility] Bilirubin, Total 0.2 0.0 - 1.0 mg/dL [facility] Aspartate Amino Transferase 22 5 - 31 U/L [facility] Alanine Aminotransferase 18 0 - 31 U/L [facility] Total Protein 7.2 6.5 - 8.0 g/dL [facility] Albumin Level 4.2 3.5 - 5.0 g/dL [facility] Alkaline Phosphatase 79 39 - 117 U/L [facility] 01/27/2025 11:5 3 AM EDT 01/27/2025 1:16 PM EDT Emilie Davis MD LAB BLOOD ORDERABLES Final Result Performing Organization Address City/State/[facility] Co de Phone Number [facility] [address] [place] [phone] * Chlamydia/Gonorrhea Throat Swab ([facility]) (01/27/2025) Chlamydia Throat Swab Negative Gonorrhea Throat Swab Negative Swab 01/27/2025 Historical Provider LAB MICROBIOLOGY - GENERA L ORDERABLES Final Result * MR Abdomen w/ and w/o Contrast (01/20/2025 4:03 PM EDT) Anatomical Region Laterality Modality Abdomen Magnetic Resonan ce 01/20/2025 4:03 PM EDT Narrative 01/20/2025 4:05 PM EDT [address] [address] Magnetic Resonance Report Signed with Steve Patient: Harriet Valdez MR#: [id number] : 1970 Acct:[id number] Age/Sex: 54 / F ADM Date: 01/19/25 Loc: HO.MRI Attending Dr: Cha Mills MD Ordering Physician: Cha Mills MD Date of Service: 01/19/25 Procedure(s): MR abdomen wo/w con Accession Number(s): [id number] cc: Emilie Davis MD; Cha Mills MD [...] bile duct dilatation, concerning for malignancy. Recommend maintenance service technician consultation, ERCP and tissue sampling. 2. Subcentimeter right hepatic hemangioma and cyst. 3. Diverticulosis coli. This document has been electronically signed by: Yumiko Jones MD on 01/20/2025 16:03:51 Dictated By: Yumiko Jones MD Signed By: <Electronically signed by Yumiko Jones MD in OV> 01/20/251604 DD/ 02 TD/TT: 01/20/251602 [employer] Teacher: Procedure Note Donotuseinterpreter, Image - 01/20/2025 [place] [address] Magnetic Resonance Report Signed with Addenda Patient: Harriet ValdezMR#: [id number] : 1970Acct:[id number] Age/Sex: 54 / FADM Date: 01/19/25 Loc: HO.MRI Attending Dr: Cha Mills MD Ordering Physician: Cha Mills MD Date of Service: 01/19/25 Procedure(s): MR abdomen wo/w con Accession Number(s): [id number] cc: Emilie Davis MD; Cha Mills MD [...] bile duct dilatation, concerning for malignancy. Recommend maintenance service technician consultation, ERCP and tissue sampling. 2. Subcentimeter right hepatic hemangioma and cyst. 3. Diverticulosis coli. This document has been electronically signed by: Yumiko Jones MD on 01/20/2025 16:03:51 Dictated By: Yumiko Jones MD Signed By: <Electronically signed by Yumiko Jones MD in OV> 01/20/251604 DD/ 02 TD/TT: 01/20/251602 [employer] Teacher: [facility] External Provider IMG MRI PROCEDURES Edited Result - Final * Hematoxylin and Eosin Stain (01/15/2025 3:32 PM EDT) 01/15/2025 3:32 PM EDT 01/18/2025 7:08 AM EDT Narrative [facility] - 01/19/2025 12:19 PM EDT ----- ------- Name: Harriet Valdez Age/Sex: 54/F : 1970 Unit#: [id number] Attend Dr: Mary Alice Mayorga MD Re01/15/25 Status: [facility] Location: [facility] Disch: ----- ------- SPEC : [id number] RECD: 01/18/25 STATUS: JANIE DUNLAP NUM: [id number] AMBREEN: 01/15/25-[address] [facility] [address]: Mary Alice Mayorga MD ENTERED: 01/18/25 [...] developed and their performance characteristics determined by [facility]. They have not been cleared or approved by the U.S. Food and Drug Administration (FDA). However, the FDA CONTINUED ON NEXT PAGE ----- ------- Name: Trace RobersonHarriet do Age/Sex: 54/F : 1970 [id number] Unit#: [id number] Attend Dr: Mary Alice Mayorga MD Re01/15/25 Status: [facility] Location: [facility] Disch: ----- ------- SPEC : [id number] RECD: 01/18/25 STATUS: JANIE DUNLAP NUM: [id number] AMBREEN: 01/15/25-[address] [facility] [address]: Mary Alice Mayorga MD ENTERED: 01/18/25 [...] laboratory testing. Copies To: Emilie Davis MD [address] [id number] Mary Alice Mayorga MD [facility] [address] [place] [phone] ----- ------- Signed (signature on file) Yara Dodson MD 01/19/25 1219 ----- ------- END OF REPORT Generic External Data Provider LAB BLOOD ORDERAB LES Final Result Performing Organization Address [facility] Co de Phone Number [facility] [address] [place] [phone] * Prothrombin Time-INR (01/14/2025 3:40 PM EDT) Prothrombin Time 11.7 10.9 - 12.4 SEC [facility] INTERNATIONAL NORM RATIO 1.0 0.9 - 1.1 [facility] Comment:INTERNATIONAL NORMAL IZED RATIO (INR) [...] 3:40 PM EDT 01/14/2025 3:52 PM EDT [employer] External Data Provider LAB BLOOD ORDERAB LES Final Result Performing Organization Address [facility] Co de Phone Number [facility] [address] [place] [phone] * FL Esophagus Barium Swallow (01/14/2025 9:40 AM EDT) Anatomical Region Laterality Modality Head, Neck Radiographic [place] ging 01/14/2025 9:40 AM EDT Narrative 01/14/2025 11:23 AM EDT [address] [address] Fluoroscopy Report Signed Patient: Harriet Valdez MR#: [id number] : 1970 Acct:[id number] Age/Sex: 54 / F ADM Date: 01/14/25 Loc: MARINO Attending Dr: Aida ASH Ordering Physician: Aida Orozco Date of Service: 01/14/25 Procedure(s): FL barium swallow Accession Number(s): [id number] cc: Emilie Davis MD; Aida Orozco Reason [...] 01/14/25 1120 DD/ 0940 TD/TT: 01/14/25 0955 [employer] Teacher: [facility] Procedure Note Donotuseinterpreter, Image - 01/14/[address] [address] Fluoroscopy Report Signed Patient: Harriet Valdez#: [id number] : 1970Acct:[id number] Age/Sex: 54 / FADM Date: 01/14/25 Loc: HODEANGELO Attending Dr: Aida ASH Ordering Physician: Aida Orozco Date of Service: 01/14/25 Procedure(s): FL barium swallow Accession Number(s): [id number] cc: Emilie Davis MD; Pam AMINTA-C Reason for Exam: R11.10 - Vomiting, unspecified [...] 01/14/25 1120 DD/ 0940 TD/TT: 01/14/25 0955 [employer] Teacher: MADINA [facility] External Provider IMG FLU OROSCOPY PROCEDURES Final Result * XR Abdomen 2 View minimum (01/08/2025 10:50 AM EDT) Anatomical Region Laterality Modality Abdomen Radiographic [place] ging 01/08/2025 10:5 0 AM EDT Narrative 01/08/2025 12:26 PM EDT [address] [address] XRay Report Signed Patient: Harriet Valdez MR#: [id number] : 1970 Acct:[id number] Age/Sex: 54 / F ADM Date: 01/08/25 Loc: MARINO Attending Dr: Aida ASH Ordering Physician: Aida Orozco Date of Service: 01/08/25 Procedure(s): XR abdomen min 2V Accession Number(s): [id number] cc: Emliie Davis MD; Aida Orozco EXAMINATION: XR ABDOMEN [...] 01/08/25 1223 DD/ 1050 TD/TT: 01/08/25 1057 [employer] Teacher: Procedure Note Donotuseinterpreter, Image - 01/08/[address] [address] XRay Report Signed Patient: Harriet ValdezMR#: [id number] : 1970Acct:[id number] Age/Sex: 54 / FADM Date: 01/08/25 Loc: MARINO Attending Dr: Aida ASH Ordering Physician: Aida Orozco Date of Service: 01/08/25 Procedure(s): XR abdomen min 2V Accession Number(s): [id number] cc: Emilie Davis MD; Aida Orozco-C EXAMINATION: XR ABDOMEN 2 VIEWS SUPINE ERECT [...] 01/08/25 1223 DD/ 1050 TD/TT: 01/08/25 1057 [employer] Teacher: [facility] External Provider IMG XR PROCEDURES Edited Result - Final * (ABNORMAL) VITAMIN D 25-OH (D2 AND D3) (01/08/2025 10:47 AM EDT) Vitamin D, 25-OH, D2 <4 ng/mL [facility] Comment:This test was develo ped and its analytical performancecharacteristics have been determined by [place] It hasnot been cleared or approved by the U.S. Food and DrugAdministration. This assay has been validated pursuantto the CLIA regulations and is used for clinicalpurposes.THIS TEST WAS PERFORMED AT:[facility] [id number] [place] [address]YJPFLOSMARCI ESTEVEZ MD,PHD Vitamin D, 25-OH, D3 28 ng/mL [facility] Comment:This test was develo ped and its analytical performancecharacteristics have been determined by [employer] [place], [place]. It hasnot been cleared or approved by the U.S. Food and DrugAdministration. This assay has been validated pursuantto the CLIA regulations and is used for clinicalpurposes. Vitamin D, 25-OH, Total 28(A) 30 - 100 ng/mL [facility] Comment:Vitamin D, 25-Hydrox y reports [...] = 30 ng/mL.For additional information, please refer tohttp://education.[employer]/faq/DGY478(This link is being provided for informational/educational purposes only.) 01/08/2025 10:4 7 AM EDT 01/08/2025 10:47 AM EDT us Generic External Data Provider LAB BLOOD ORDERAB LES Final Result Performing Organization Address City/[facility]/ZIP Co de Phone Number [facility] [address] [place] [phone] * Sed Rate by Modified Isiahergren (01/08/2025 10:47 AM EDT) Erythrocyte Sedimentation Rate 9 0 - 20 MM/HR [facility] Comment:Patients with polycy themia and many hemoglobin abnormalitiesmay have depressed sed rates whereas patients with anemiamay have elevated sed rates. 01/08/2025 10:4 7 AM EDT 01/08/2025 10:47 AM EDT us Generic External Data Provider LAB BLOOD ORDERAB LES Final Result Performing Organization Address [facility]/ZIP Co de Phone Number [facility] [address] [place] [phone] * C-reactive Protein (01/08/2025 10:47 AM EDT) C Reactive Protein <0.10 < or = 0.50 mg/dL [facility] 01/08/2025 10:4 7 AM EDT 01/08/2025 10:47 AM EDT us Generic External Data Provider LAB BLOOD ORDERAB LES Final Result [facility] [address] [place] [phone] * (ABNORMAL) Drug Monitoring, Panel 1, Screen, Urine (12/29/2024 1:09 PM EDT) Pathologist [facility] Opiate Screen Urine Not Detected Not Detect [facility] Comment:Opiate cut-off is 30 0 ng/mL.Positive results are unconfirmed and should not be used fornon-medical purposes. Barbiturates, Urine Not Detected Not Detect [facility] Comment:Barbiturate cut-off is 200 ng/mL.Positive results are unconfirmed and should not be used fornon-medical purposes. Phencyclidine Screen Urine Not Detected Not Detect [facility] Comment:Phencyclidine cut-of f is 25 ng/mL.Positive results are unconfirmed and should not be used fornon-medical purposes. Amphetamine Screen Urine Not Detected Not Detect [facility] Comment:Amphetamine cut-off is 1000 ng/mL.Positive results are unconfirmed and should not be used fornon-medical purposes. Benzodiazepines Screen Urine Not Detected Not Detect [facility] Comment:Benzodiazepine cut-o ff is 200 ng/mL.Positive results are unconfirmed and should not be used fornon-medical purposes. Cocaine Screen Urine Not Detected Not Detect [facility] Comment:Cocaine cut-off is 3 00 ng/mL.Positive results are unconfirmed and should not be used fornon-medical purposes. Cannabinoid Screen Urine POSITIVE(A) Not Detect [facility] Comment:Cannabinoid cut-off is 50 ng/mL.Positive results are unconfirmed and should not be used fornon-medical purposes. Methadone Screen, Urine Not Detected Not Detect ng/mL [facility] Comment:Methadone cut-off is 300 ng/mL.Positive results are unconfirmed and should not be used fornon-medical purposes. FENTANYL URINE Not Detected Not Detect [facility] Comment:Fentanyl cut-off is 1 ng/mL.Positive results are unconfirmed and should not be used fornon-medical purposes. Oxycodone Urine Screen Not Detected Not Detect ng/mL [facility] Comment:Oxycodone cut-off is 100 ng/mL.Positive results are unconfirmed and should not be used fornon-medical purposes. Buprenorphine Screen Not Detected Not Detect ng/mL [facility] Comment:Buprenorphine cut-of f is 5 ng/mL.Positive results are unconfirmed and should not be used fornon-medical purposes. 12/29/2024 1:09 PM EDT 12/29/2024 1:16 PM EDT us Generic External Data Provider LAB URINE ORDERAB LES Final Result [facility] [address] [place] [phone] * Urinalysis w/reflex microscopic (12/29/2024 1:09 PM EDT) Color Urine Yellow [facility] Appearance Urine Clear [facility] PH 8.0 5.0 - 9.0 [facility] Glucose Urine UA Negative Negative mg/dL [facility] Urine Blood Negative Negative [facility] Specific [place] - Urine 1.015 1.005 - 1.025 [facility] Urine Protein Negative Neg-Trace mg/dL [facility] Urine Ketones Negative Negative mg/dL [facility] Nitrite Urine Negative Negative [facility] Leukocyte Esterase Urine Negative Negative [facility] 12/29/2024 1:09 PM EDT 12/29/2024 1:16 PM EDT Narrative [facility] - 12/29/2024 1:22 PM EDT Urine, Clean Catch Generic External Data Provider LAB URINE ORDERAB LES Final Result Performing Organization Address [facility]/ZIP Co de Phone Number [facility] [address] [place] [phone] * Hepatic Function Panel (12/29/2024 10:00 AM EDT) Pathologist [facility] Bilirubin, Total 0.4 0.0 - 1.0 mg/dL [facility] Bilirubin, Direct 0.1 0.0 - 0.5 mg/dL [facility] Aspartate Amino Transferase 26 5 - 31 U/L [facility] Alanine Aminotransferase 19 0 - 31 U/L [facility] Total Protein 7.6 6.5 - 8.0 g/dL [facility] Albumin Level 4.4 3.5 - 5.0 g/dL [facility] Alkaline Phosphatase 90 39 - 117 U/L [facility] 12/29/2024 10:0 0 AM EDT 12/29/2024 10:02 AM EDT Generic External Data Provider LAB BLOOD ORDERAB LES Final Result Performing Organization Address [facility] Co de Phone Number [facility] [address] [place] [phone] * (ABNORMAL) Basic Metabolic Panel (12/29/2024 10:00 AM EDT) [facility] Sodium 142 135 - 145 mmol/L [facility] Potassium 4.0 3.3 - 5.1 mmol/L [facility] Chloride 107 96 - 108 mmol/L [facility] Carbon Dioxide 30(H) 22 - 29 mmol/L [facility] Anion Gap 9(L) 12 - 20 [facility] Urea Nitrogen (BUN) 10 9 - 16 mg/dL [facility] Creatinine, Serum 0.75 0.5 - 1.4 mg/dL [facility] Creatinine Clr Calc Pharmacy 66.2 [facility] Comment:Provided height and weight: 162.56 cm,49.5 kg.eGFR (calculated from the MDRD study equation) and eCrCl(calculated from the Cockcroft-Gault equation) are based ondifferent parameters and may not yield comparable results.If eCrCl result is absurd, please check patient'sheight/weight. Estimated Glomerular Filt Rate >60 [facility] Comment:Chronic Kidney Disea se: Estimated GFR < 60 mL/min/1.69p1Tdfiei Kidney Disease: Estimated GFR < 15 mL/min/1.73m2 Glucose 117(H) 60 - 115 mg/dL [facility] Calcium 9.3 8.4 - 10.2 mg/dL [facility] 12/29/2024 10:0 0 AM EDT 12/29/2024 10:02 AM EDT us Generic External Data Provider LAB BLOOD ORDERAB LES Final Result Performing Organization Address [facility] Co de Phone Number [facility] [address] [place] [phone] * (ABNORMAL) Confirmatory Syphilis Profile (11/26/2024 1:24 PM EDT) [facility] Rapid Plasma Reagin, Quant Non-React darren Nonreactive [facility] Treponema pallidum Antibody, Particle Agglutination Reactive( A) Nonreactive [facility] Comment:These results must b e reported by the ordering clinician orclinical facility to the [place] [facility] of [facility] required by state law.Testing performed at: [address] [address] 11/26/2024 1:24 PM EDT 11/27/2024 3:54 AM EDT us Emilie Davis MD LAB BLOOD ORDERABLES Final Result Performing Organization Address [facility]/ZIP Co de Phone Number [facility] [address] [place] [phone] * (ABNORMAL) Syphilis Screen (11/26/2024 1:24 PM EDT) [facility] Syphilis Screen Reactive( A) Nonreactive [facility] Comment:Reactive specimens a re sent to the [facility] Labfor confirmatory tests. 11/26/2024 1:24 PM EDT 11/26/2024 4:06 PM EDT Emilie Davis MD LAB BLOOD ORDERABLES Final Result Performing Organization Address [facility] de Phone Number [facility] [address] [place] [phone] * Hepatitis C Viral RNA, Quantitative, Real-Time PCR (11/26/2024 1:24 PM EDT) [facility] Hepatitis C Viral Load <15 NOT DETECTED NOT DETECTED IU/mL [facility] HCV Log PCR <1.18 NOT DETECTED NOT DETECTED Log IU/mL [facility] Comment:For additional infor matkenia, please refer tohttp://education.[employer]/faq/CPG60o2(This link is being provided for informational/educational purposes only.)THIS TEST WAS PERFORMED AT:[facility] [employer] [place] [phone] MALDONADO MD 11/26/2024 1:24 PM EDT 11/27/2024 2:28 PM EDT Emilie Davis MD LAB BLOOD ORDERABLES Final Result Performing Organization Address [facility] de Phone Number [facility] [address] [place] [phone] * (ABNORMAL) Hepatitis C Antibody with Reflex to HCV, RNA, Quantitative, Real- Time PCR (11/26/2024 1:24 PM EDT) [facility] Hepatitis C Antibody Reactive( A) Nonreactive [facility] Comment:Presumptive evidence of antibodies to HCV. 11/26/2024 1:24 PM EDT 11/26/2024 4:06 PM EDT us Emilie Davis MD LAB BLOOD ORDERABLES Final Result Performing Organization Address [facility]/ZIP Co de Phone Number [facility] [address] [place] [phone] [phone] * Methylmalonic Acid (11/26/2024 1:24 PM EDT) Methylmalonic Acid 197 55 - 335 nmol/L [facility] Comment: Serum methylmalonic acid (MMA) [...] outcomes,such as neural tube defects and intrauterine growthrestriction.[facility] utilized Multi-Modal Decomposition(MMD) analysis to establish first and second trimester-specific MMA reference intervals in , as givenbelow:MMA, First trimester (<13 wks gestation): 58-167 nmol/LMMA, Second trimester (13-23 wks gestation):63-241 nmol/LThis test was developed and its analytical performancecharacteristics have been determined by [employer]. It has not been cleared or approved by theFDA. This assay has been validated pursuant to the CLIAregulations and is used for clinical purposes.THIS TEST WAS PERFORMED AT:[facility] [place] [address]KBLEMGWMARCI ESTEVEZ MD,PHD 11/26/2024 1:24 PM EDT 11/26/2024 4:06 PM EDT us Generic External Data Provider LAB BLOOD ORDERAB LES Final Result Performing Organization Address [facility]/ZIP Co de Phone Number [facility] [address] [place] [address] [phone] * RPR (Monitor) with Reflex to??Titer (11/26/2024 1:24 PM EDT) RPR (Monitor) w/Refl Titer NON-REACTI VE NON-REACT DARREN [facility] Comment:THIS TEST WAS PERFOR MED AT:[facility] [place] [phone] MALDONADO MD Rapid Plasma Reagin Ab Titer TNP [facility] 11/26/2024 1:24 PM EDT 11/26/2024 4:06 PM EDT us Emilie Davis MD LAB BLOOD ORDERABLES Final Result [facility] [address] [place] [phone] * (ABNORMAL) Lipid Panel, Standard (07/24/2024 1:36 PM EDT) Triglycerides 141 <150 mg/dL [facility] Comment:Desirable Triglyceri de: less than 150 mg/dLBorderline High Triglyceride 150-199 mg/dLHigh Triglyceride: 200-499 mg/dLVery High Triglyceride: greater than or equal to 5OO mg/dL Cholesterol 205(H) <200 mg/dL [facility] Comment:Desirable Cholestero l: less than 200 mg/dLBorderline High Cholesterol: 200-239 mg/dLHigh Cholesterol: greater than 239 mg/dL LDL Cholesterol Calculated 114(H) <100 mg/dL [facility] Comment:Desirable LDL: less than 100 mg/dLNear Optimal/Above Optimal LDL: 110- 129 mg/dLBorderline High LDL: 130-159 mg/dLHigh LDL: 160-189 mg/dLVery High LDL: greater than or equal to 190 mg/dL HDL Cholesterol 63 >40 mg/dL [facility] Comment:Desirable HDL: great er than 40 mg/dL Note: This HDL assay may give artificially low results in patients with liver disease. 07/24/2024 1:36 PM EDT 07/24/2024 4:20 PM EDT us Generic External Data Provider LAB BLOOD ORDERAB LES Final Result Performing Organization Address [facility]/ZIP Co de Phone Number [facility] [address] [place] [phone] * HPV mRNA E6/E7 w/Reflex to HPV Genotypes 16, 18/45 (03/22/2023 11:30 AM EST) HPV nRNA E6/E7 Not Detected Not Detected [facility] Comment:Methodology: Transcr iption-Mediated AmplificationThis assay detects E6/E7 viral messenger RNA (mRNA) from 14high-risk HPV types (16,18,31,33,35,39,45,51,52,56,58,59,66,68).Cervical sources are required for HPV testing.If a vaginal source from a patient who has had atotal hysterectomy with removal of cervix wassubmitted, please contact the testing laboratoryfor alternative testing options.For additional information, please refer tohttp://education.[employer]/faq/KKB959w6(This link if provided for information/educational purposes only.)THIS TEST WAS PERFORMED AT:[facility] [place] [phone] MALDONADO MD HPV mRNA E6/E7 [facility] HPV 16 RNA [facility] HPV 18/45 RNA [facility] 03/22/2023 11:3 0 AM EST 03/25/2023 12:20 PM EST us Emilie Davis MD LAB CYTOLOGY ORDERABLES Fi nal Result Performing Organization Address City/[facility]/ZIP Co de Phone Number [facility] [address] [place] [phone] * Pap Smear (03/22/2023 11:30 AM EST) 03/22/2023 11:3 0 AM EST 03/25/2023 12:20 PM EST Narrative [facility] - 04/11/2023 11:26 AM EST ----- ------- Name: Harriet Valdez Age/Sex: 53/F : 1970 Unit#: [id number] Attend Dr: RADHA VILLAREAL MD Re03/22/23 Status: DEP REF Location: [facility] Disch: ----- ------- SPEC : [id number] RECD: 03/25/23-1220 STATUS: JANIE DUNLAP NUM: [id number] AMBREEN: 03/22/231130 [facility] DR: Emilie Davis MD ENTERED: 03/25/23-1806 SP TYPE: Pap Smr [facility] DR: ORDERED: Pap Smear Interpretation Satisfactory for evaluation. Negative for intraepithelial lesion or malignancy. HPV mRNA E6/E7: NOT DETECTED This assay detects E6/E7 viral messenger RNA (mRNA) from 14 high-risk HPV types (16, 18, 31, 33, 35, 39, 45, 51, 52, 56, 58, 59, 66, 68) HPV testing performed by [facility], [place], [place]. See reference laboratory portion of the EMR for entire report. Clinical Information LMP: Unknown date Previous PAP test: Unknown date, WNL Other history: Pt on testosterone, surgical post menopause Material Received ThinPrep-Cervical ----- ------- Signed (signature on file) SERENA Alejandro ([facility]) 04/11/23 1126 ----- ------- END OF REPORT Emilie Davis MD LAB CYTOLOGY ORDERABLES Fi nal Result [facility] [address] [place] [phone] * Colonoscopy (01/30/2018) Colonoscopy normal Historical Provider HEALTH MAINTENANCE Final Result from Last 3 Months or Most Recently Relevant to Health Maintenance Insurance [facility] [employer] [facility] Address: [facility] [address] [place] [address] * Guarantor: Harriet Valdez Account Type Relation to Patient Date of Phone Billing Address Personal/Family Self [facility] [place] [address] * Guarantor: Harriet Valdez Account Type Relation to Patient Date of Phone Billing Address Personal/Family Self [facility] [place] [address] * Guarantor: Harriet Valdez Account Type Relation to Patient Date of Phone Billing Address Personal/Family Self [facility] [place] [address] Advance Directives Documents on File Type Date Recorded Patient 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 Prevention 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 Captain Expl anation Advance Directives and Living Will 03/16/2024 Health Care Proxy 03/16/24 Care Teams Blender Operator Relationship Specialty Start Date End Date [place], [place] Emilie [address] [place] [address] PCP - General Family Medicine 05/13/18 Morales Echavarria FNP [address] [place] [address] Nurse Practitioner Family Medicine 04/16/23August [address] [place] [address] [address] [place] [address] Gastroenterology 05/26/24 Fred Castanon [address] [place] [address] 07/21/24 Ele Mar MD [address] [place] [address] Hematology and Oncology 02/22/25 Marina Brown MD Rheumatology 02/10/25
--- OUTSIDE RECORDS SUMMARY | 2025-02-25 18:47 | XMS_ITS | Encounter Summary ---
Author Organization [employer] Address [address] [facility] 7t [place] [address] Care Team Providers Care Dials Inspector Name Role Phone Emilie Davis MD Primary Care Provider [phone] Morales Echavarria Unavailable Unavailable August Unavailable Fred Castanon Unavailable Ele Mar MD Unavailable [phone] Reason for Visit * Reason Comments Pre-visit Planning Pre-visit planning - LVM Encounter Details Date Type Department Care Team (Late st Contact Info) Description 02/23/2025 Patient Outreach [facility] [address] [place] [address] Emilie Davis MD [address] [place] [address] Pre-visit Planning (Pre-visit planning - LVM ) [...] t he electric, gas, oil or water [place] threatened to shut off services in your [...] 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 on file [...] EDT Office Visit [facility] [address] [place] [address] Emilie Davis MD [address] [place], [place] [phone] 03/24/2025 11:00 AM EST Clinical Support [facility] [address] [place] [address] Medina Lewis, RN [address] [place] [address] 06/04/2025 3:00 PM EST Office Visit [facility] [address] [place] [address] Merissa Donis, OD [address] [place] [address] documented as of this encounter Visit Diagnoses Not on filedocumented in this encounter Additional Health Concerns Assessment Noted Time PHQ-9 Depression Total Score: 3 04/30/20 9:17 AM EST documented as of this encounter Care Teams Dials Inspector Relationship Specialty Start Date End Date Emilie Davis MD [address] [place] [address] PCP - General Family Medicine 05/13/18 Morales Echavarria FNP [address] [place] [address] Nurse Practitioner Family Medicine 04/16/23August [address] [address] Gastroenterology 05/26/24 Fred Castanon [address] [place] [address] 07/21/24 Ele Mar MD [address] [place] [address] Hematology and Oncology 02/22/25 Marina Brown MD Rheumatology 02/10/25 documented as of this encounter
--- OUTSIDE RECORDS SUMMARY | 2025-02-25 18:47 | XMS_ITS | Encounter Summary ---
Author Organization [facility] Address [address] [facility] [address] 7t [place] [address] Care Team Providers Care Facility Sales And Admin Name Role Phone Emilie Davis MD Primary Care Provider [phone] Morales Echavarria Unavailable Unavailable August Unavailable Fred Castanon Unavailable Ele Mar MD Unavailable [phone] Encounter Details Date Type Department Care Team ([facility] Contact Info) Description 11/28/2022 Abstract [facility] [address] [place] [address] Emilie Davis MD [address] [place] [address] [phone] Social History Tobacco Use Types Packs/Day Years [...] EDT Office Visit [facility] [address] [place] [address] Emilie Davis MD [address] [place] [address] 03/24/2025 11:00 AM EST Clinical Support [facility] [address] [place] [address] Medina Lewis, RN [address] [place] [address] 06/04/2025 3:00 PM EST Office Visit [facility] [address] [place] [address] GagandeepMerissa santos, OD [address] [place] [address] documented as of this encounter Visit Diagnoses Not on filedocumented in this encounter Additional Health Concerns Assessment Noted Time PHQ-9 Depression Total Score: 19 023 9:24 AM EDT documented as of this encounter Care Teams Facility Sales And Admin Relationship Specialty Start Date End Date Emilie Davis MD [address] [place] [phone] PCP - General Family Medicine 05/13/18 Morales Echavarria FNP [address] [place] [address] Nurse Practitioner Family Medicine 04/16/23 Pam Aida [address] [place] [address] Gastroenterology 05/26/24 Fred Castanon [address] [address] 07/21/24 Ele Mar MD [address] [place] [address] Hematology and Oncology 02/22/25 Marina Brown MD Rheumatology 02/10/25 documented as of this encounter
--- OUTSIDE RECORDS SUMMARY | 2025-02-25 18:47 | XMS_ITS | Encounter Summary ---
Author Organization [employer] Address [address] [facility] 7t [place] [address] Care Team Providers Care Federal Air Marshal Name Role Phone Emilie Davis MD Primary Care Provider [phone]- [phone] Morales Echavarria Unavailable Unavailable August Unavailable Fred Castanon Unavailable Ele Mar MD Unavailable [phone] Reason for Visit * Reason Onset Date Comments Hospital Follow-up 01/04/2025 No Show 01/04/2025 Pt no show for h df Encounter Details Date Type Department Care Team (Late st Contact Info) Description 01/04/2025 Telephone [facility] [address] [place], [place] [phone] Emilie Davis MD [address] [place], [place] [phone] Hospital Follow-up; No Show (Pt no show [...] 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 Hospital: [facility] Date of admission: 12/29 Discharge date: 12/31 Diagnosed: Gastritis and inflammation of the pancreas *Send message to [facility] Clinical Care Coordinators documented in this encounter Plan of Treatment Upcoming Encounters Date Type Department Care Team (Late st Contact Info) Description 03/03/2025 9:30 AM EDT Office Visit [facility] [address] [place] [address] Emilie Davis MD [address] [place] [address] 03/24/2025 11:00 AM EST Clinical Support [facility] [address] [place] [address] Medina Lewis, RONALD [address] [place] [address] 06/04/2025 3:00 PM EST Office Visit [facility] [address] [place] [address] Merissa Donis, OD [address] [place] [address] documented as of this encounter Visit Diagnoses Not on filedocumented in this encounter Additional Health Concerns Assessment Noted Time PHQ-9 Depression Total Score: 3 04/30/20 9:17 AM EST documented as of this encounter Care Teams Federal Air Marshal Relationship Specialty Start Date End Date Emilie Davis MD [address] [place] [phone] PCP - General Family Medicine 05/13/18 Morales Echavarria FNP [address] [place] [address] Nurse Practitioner Family Medicine 04/16/23August [address] [place] [address] [address] [place] [address] Gastroenterology 05/26/24 Fred Castanon [address] [place] [address] 07/21/24 Ele Mar MD [address] [place] [address] Hematology and Oncology 02/22/25 Marina Brown MD Rheumatology 02/10/25 documented as of this encounter
--- OUTSIDE RECORDS SUMMARY | 2025-02-25 18:47 | XMS_ITS | Encounter Summary ---
Author Organization 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 on file Not on file documented as of this encounter Plan of Treatment Upcoming Encounters Date Type Department Care Team (Late st Contact Info) Description 03/03/2025 9:30 AM EDT Office Visit [facility] [address] [place] [address] Emilie Davis MD [address] [place] [address] 03/24/2025 11:00 AM EST Clinical Support [facility] [address] [place] [address] Medina Lewis, RONALD [address] [place] [address] 06/04/2025 3:00 PM EST Office Visit [facility] [address] [place] [address] Merissa Donis, OD [address] [place] [address] documented as of this encounter Procedures Procedure Name Priority Date/Time Associated Diagnosis Comments LOWER EXTREMITY VENOUS DUPLEX LEFT Routine 02/25/2025 3:27 PM EDT documented in this encounter Results * Lower Extremity Venous Duplex (02/25/2025 3:27 PM EDT) 02/25/2025 3:27 PM EDT Narrative [facility] - 02/25/2025 3:48 PM EDT [address] [address] Ultrasound Report Signed Patient: Harriet Valdez MR#: [id number] : 1970 Acct:[id number] Age/Sex: 55 / F ADM Date: 02/25/25 Loc: HO.US Attending Dr: Ann-Marie Muhammad MD Ordering Physician: Ann-Marie Muhammad MD Date of Service: 02/25/25 Procedure(s): US venous duplex LE LT Accession Number(s): [id number] cc: Emilie Davis MD; Ann-Marie Muhammad MD [...] Micah Hastings MD 02/25/2025 03:46 PM EDT Dictated By: Micah Hastings MD Signed By: <Electronically signed by Micah Hastings MD in OV> 02/25/25 1546 DD/ 1527 TD/TT: 02/25/25 1537 [employer]: Procedure Note Donotuseinterpreter, Image - 02/25/[address] [address] Ultrasound Report Signed Patient: Harriet ValdezMR#: [id number] : 1970Acct:[id number] Age/Sex: 55 / FADM Date: 02/25/25 Loc: .US Attending Dr: Ann-Marie Muhammad MD Ordering Physician: Ann-Marie Muhammad MD Date of Service: 02/25/25 Procedure(s): US venous duplex LE LT Accession Number(s): [id number] cc: Emilie Davis MD; Ann-Marie Muhammad MD [...] Micah Hastings MD 02/25/2025 03:46 PM EDT Dictated By: Micah Hastings MD Signed By: <Electronically signed by Micah Hastings MD in OV> 02/25/25 1546 DD/ 1527 TD/TT: 02/25/25 1537 [employer]: us Ann-Marie Muhammad MD CV VASCULAR PROCEDURES Final Result [facility] [address] [place] [address] [phone] documented in this encounter Visit Diagnoses Not on filedocumented in this encounter Additional Health Concerns Assessment Noted Time PHQ-9 Depression Total Score: 3 04/30/20 23 9:17 AM EST documented as of this encounter Care Teams Servicenow Administrator Relationship Specialty Start Date End Date Emilie Davis MD [address] [place] [address] PCP - General Family Medicine 05/13/18 Morales Echavarria FNP [address] [place] [address] Nurse Practitioner Family Medicine 04/16/23 Pam Aida [address] [place] [address] Gastroenterology 05/26/24 Fred Castanon [address] [place] [address] 07/21/24 Ele Mar MD [address] [place] [address] Hematology and Oncology 02/22/25 Marina Brown MD Rheumatology 02/10/25 documented as of this encounter
--- OUTSIDE RECORDS SUMMARY | 2025-02-25 18:47 | XMS_ITS | Encounter Summary ---
Author Organization [facility] Address [address] [facility] 7t [place] [address] Care Team Providers Care Education Reporter Name Role Phone Emilie Davis MD Primary Care Provider [phone] Morales Echavarria Unavailable Unavailable August Unavailable Fred Castanon Unavailable Ele Mar MD Unavailable [phone] Reason for Visit * Reason Comments Med Refill Encounter Details Date Type Department Care Team (Late st Contact Info) Description 01/01/2023 Refill [facility] [address] [place] [address] Emilie Davis MD [address] [place], [place] [phone] Social History Tobacco Use Types Packs/Day Years [...] 8:54 AM EDT T/C to patient via sustain engineer regarding x-ray result. No answer, message left [...] Description 03/03/2025 9:30 AM EDT Office Visit [facility] [address] [place] [address] Emilie Davis MD [address] [place] [address] 03/24/2025 11:00 AM EST Clinical Support [facility] [address] [place] [address] Medina Lewis, RONALD [address] [place] [address] 06/04/2025 3:00 PM EST Office Visit [facility] [address] [place] [address] Merissa Donis, OD [address] [place] [address] documented as of this encounter Visit Diagnoses Not on filedocumented in this encounter Additional Health Concerns Assessment Noted Time PHQ-9 Depression Total Score: 19 023 9:24 AM EDT documented as of this encounter Care Teams Education Reporter Relationship Specialty Start Date End Date Emilie Davis MD [address] [place] [address] PCP - General Family Medicine 05/13/18 Morales Echavarria FNP [address] [place] [address] Nurse Practitioner Family Medicine 04/16/23 Aida Orozco [address] [place] [address] Gastroenterology 05/26/24 Fred Castanon [address] [place] [address] 07/21/24 Ele Mar MD [address] [place] [address] Hematology and Oncology 02/22/25 Marina Brown MD Rheumatology 02/10/25 documented as of this encounter
--- OUTSIDE RECORDS SUMMARY | 2025-02-25 18:47 | XMS_ITS | Encounter Summary ---
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 Not on file Not on file documented as of this encounter Plan of Treatment Upcoming Encounters Date Type Department Care Team ([facility] st Contact Info) Description 03/03/2025 9:30 AM EDT Office Visit [facility] [address] [place] [address] Emilie Davis MD 230 [place] [address] 03/24/2025 11:00 AM EST Clinical Support [facility] [address] [place] [address] Medina Lewis, RONALD 230 [place] [address] 06/04/2025 3:00 PM EST Office Visit [facility] [address] [place] [address] Merissa Donis, GINA 230 [place] [address] documented as of this encounter Visit Diagnoses Not on filedocumented in this encounter Additional Health Concerns Assessment Noted Time PHQ-9 Depression Total Score: 3 04/30/20 23 9:17 AM EST documented as of this encounter Care Teams General Sales Manager Relationship Specialty Start Date End Date Emilie Davis MD [address] [place] [address] 139[address] PCP - General Family Medicine 05/13/18 Morales Echavarria FNP [address] [place] [address] 86095 Nurse Practitioner Family Medicine 04/16/23 Aida Orozco [address] [place] [address]15 Gastroenterology 05/26/24 Fred Castanon [address] [place] [address] 07/21/24 Ele Mar MD [address] [place] [address] Hematology and Oncology 02/22/25 Marina Brown MD Rheumatology 02/10/25 documented as of this encounter
--- OUTSIDE RECORDS SUMMARY | 2025-02-25 18:47 | XMS_ITS | Encounter Summary ---
Author Organization [employer] [facility] Address 75 [facility] 7t [place] [address] Care Team Providers Care Hazmat Cdl A Driver Name Role Phone Emilie Davis MD Primary Care Provider Morales Echavarria Unavailable Unavailable August Unavailable Fred Castanon Unavailable Ele Mar MD Unavailable [phone] Reason for Visit * Reason Comments Med Refill Encounter Details Date Type Department Care Team (Late st Contact Info) Description 06/27/2022 Refill [facility] MEDICINE [address] [place] [address] [phone] Emilie Davis MD [address] [place] [address] [phone] Social History Tobacco Use Types Packs/Day Years [...] 9:30 AM EDT Office Visit [facility] MEDICINE [address] [place] [address] [phone] Emilie Davis MD [address] [place] [address] [phone] 03/24/2025 11:00 AM EST Clinical Support [facility] MEDICINE 230 [place] [address] Medina Lewis, RN 230 [place] [address] 06/04/2025 3:00 PM EST Office Visit [facility] OPTOMETRY [address] [place] [address] Merissa Donis, OD 230 [place] [address] documented as of this encounter Visit Diagnoses Not on filedocumented in this encounter Care Teams Hazmat Cdl A Driver Relationship Specialty Start Date End Date Ryan, MD Emilie 230 [place] [address] PCP - General Family Medicine 05/13/18 Morales Echavarria FNP [address] [place] [address] 325[address] Nurse Practitioner Family Medicine 04/16/23August [address] [place] [address] [address] [place] [address] Gastroenterology 05/26/24 Fred Castanon [address] [place] [address] 07/21/24 Ele Mar MD [address] [place] [address] Hematology and Oncology 02/22/25 Marina Brown MD Rheumatology 02/10/25 documented as of this encounter
--- OUTSIDE RECORDS SUMMARY | 2025-02-25 18:47 | XMS_ITS | Encounter Summary ---
Author Organization [employer] Address [address] [facility] [address] 7t [place] [address] Care Team Providers Care Broadcasting Equipment Mechanic Name Role Phone Emilie Davis MD Primary Care Provider [phone] Morales Echavarria Unavailable Unavailable August Unavailable Fred Castanon Unavailable Ele Mar MD Unavailable [phone] Encounter Details Date Type Department Care Team (Late st Contact Info) Description 03/25/2023 Orders Only [facility] 230 [place] [address] Emilie Davis MD 230 [place], [place] [phone] Social History Tobacco Use Types Packs/Day Years [...] Description 03/03/2025 9:30 AM EDT Office Visit [facility] 230 [place] [address] Emilie Davis MD 230 [place] [address] 03/24/2025 11:00 AM EST Clinical Support [facility] 230 [place] [address] Medina Lewis, RN 230 [place] [address] 06/04/2025 3:00 PM EST Office Visit [facility] [address] [place] [address] Merissa Donis, OD 230 [place] [address] documented as of this encounter Visit Diagnoses Not on filedocumented in this encounter Additional Health Concerns Assessment Noted Time PHQ-9 Depression Total Score: 10 023 9:08 AM EDT documented as of this encounter Care Teams Broadcasting Equipment Mechanic Relationship Specialty Start Date End Date Emilie Davis MD 230 [place] [address] PCP - General Family Medicine 05/13/18 Morales Echavarria FNP 230 [place] [address] Nurse Practitioner Family Medicine 04/16/23 Aida Orozco [address] [place] [address] Gastroenterology 05/26/24 Fred Castanon [address] [place] [address] 07/21/24 Ele Mar MD [address] [place] [address] Hematology and Oncology 02/22/25 Marina Brown MD Rheumatology 02/10/25 documented as of this encounter
--- OUTSIDE RECORDS SUMMARY | 2025-02-25 18:48 | XMS_ITS | Encounter Summary ---
Author Organization [employer] Address [address] [facility] [address] 7t [place] [address] Care Team Providers Care Tandem Operator Name Role Phone Emilie Davis MD Primary Care Provider [phone] Morales Echavarria Unavailable Unavailable August Unavailable Fred Castanon Unavailable Ele Mar MD Unavailable [phone] Reason for Visit * Reason Onset Date Comments Med Refill 04/22/2024 Encounter Details Date Type Department Care Team (Late st Contact Info) Description 04/22/2024 Telephone [facility] 230 [place] [address] Emilie Davis MD 230 [place] [address] Med Refill Social History Tobacco Use Types [...] 200 MG/5ML suspension To be sent to: [facility] - [place], [place] - [address] [facility] documented in this encounter Plan of Treatment Upcoming Encounters Date Type Department Care Team ([facility] st Contact Info) Description 03/03/2025 9:30 AM EDT Office Visit [facility] [address] [place] [address] Emilie Davis MD 230 [place] [address] 03/24/2025 11:00 AM EST Clinical Support [facility] [address] [place] [address] Medina Lewis, RN 230 [place] [address] 06/04/2025 3:00 PM EST Office Visit [facility] OPT[facility] 267 [place] [address] GagandeepMerissa santos, OD 230 [place] [address] documented as of this encounter Visit Diagnoses Not on filedocumented in this encounter Additional Health Concerns Assessment Noted Time PHQ-9 Depression Total Score: 3 04/30/20 9:17 AM EST documented as of this encounter Care Teams Tandem Operator Relationship Specialty Start Date End Date Emilie Davis MD [address] [place] [address] PCP - General Family Medicine 05/13/18 Morales Echavarria FNP [address] [place] [address] 17096 Nurse Practitioner Family Medicine 04/16/23August [address] [place] [address] Gastroenterology 05/26/24 Fred Castanon [address] [place] [address] 07/21/24 Ele Mar MD [address] [place] [address] Hematology and Oncology 02/22/25 Marina Brown MD Rheumatology 02/10/25 documented as of this encounter
== END 2025-02-25 14:53 | disposition home or self-care (01) ==
LOC: HO.US 14:52
PROVIDERS: PCP Family Medicine; Visit Provider Internal Medicine
DX: M79.662 Pain in left lower leg (principal); C25.9 Malignant neoplasm of pancreas, unspecified
CPT/HCPCS: 73590; 93971

== ENCOUNTER → 2025-02-25 15:02 | Outpatient (BNV) | payer OTHER, SELFPAY | PROVIDERS: PCP Family Medicine; Visit Provider Radiology Diagnostic Radiology | DX: M79.662 Pain in left lower leg (principal) | CPT/HCPCS: 73590; 93971 ==

== ENCOUNTER 2025-03-02 08:06 | Outpatient (AMB) | payer OTHER, SELFPAY ==
--- OUTSIDE RECORDS SUMMARY | 2025-02-25 13:40 | XMS_ITS | Encounter Summary ---
Author Organization [employer] [facility] Address [address] [facility] 7t [place] [address] Care Team Providers Care Assistant Elementary Teacher Name Role Phone Emilie Davis MD Primary Care Provider [phone]- [phone] Morales Echavarria Unavailable Unavailable August Unavailable Fred Castanon Unavailable Ele Mar MD Unavailable [phone] Reason for Referral * Imaging (STAT) - Closed Specialty Diagnoses / Procedures Referred By Contac t Referred To Contact Cardiology Diagnoses Pain of left calf Procedures Vascular US lower extremity venous duplex left Ann-Marie Muhammad MD [address] [place] [address] Phone: tel: fax: [facility] [address] [place] [address] Phone: tel: fax: Referral ID Status Reason Start Date Expiration Date V isits Requested Visits Authorized [id number] Closed Perform Procedure 02/25/2025 02/25/2026 1 1 Encounter Details Date Type Department Care Team (Latest Contact Info) Description 02/25/2025 1:40 PM EDT Office Visit [facility] [address] [place] [address] Ann-Marie Muhammad MD [address] [place], [place] [phone] Pain of left calf (Primary Dx); Pancreatic [...] 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 [...] Center 03/03/2025 9:30 AM Emilie Davis MD [facility] 03/03/2025 10:00 AM Radha Perla [facility] 03/24/2025 11:00 AM Medina Lewis RN [facility] 06/04/2025 3:00 PM Merissa Donis OD [facility] documented in this encounter Plan of Treatment Upcoming Encounters Date Type Department Care Team (Late st Contact Info) Description 03/03/2025 9:30 AM EDT Office Visit [facility] [address] [place] [address] Emilie Davis MD [address] [place] [address] 03/24/2025 11:00 AM EST Clinical Support [facility] [address] [place] [address] Medina Lewis RN [address] [place] [address] 06/04/2025 3:00 PM EST Office Visit [facility] [address] [place] [address] Merissa Donis OD [address] [place] [address] documented as of this encounter Procedures Procedure [...] PM EDT Narrative 02/25/2025 3:28 PM EDT [address] [address] XRay Report Signed Patient: Harriet Valdez MR#: [id number] : 1970 Acct:[id number] Age/Sex: 55 / F ADM Date: 02/25/25 Loc: HO. Attending Dr: Ann-Marie Muhammad MD Ordering Physician: Ann-Marie Muhammad MD Date of Service: 02/25/25 Procedure(s): XR tibia fibula LT 2V Accession Number(s): [id number] cc: Emilie Davis MD; Ann-Marie Muhammad MD [...] 02/25/25 1525 DD/ 1514 TD/TT: 02/25/25 1521 Director Of Assessing: Procedure Note Donotuseinterpreter, Image - 02/25/[address] [address] XRay Report Signed Patient: Harriet ValdezMR#: [id number] : 1970Acct:[id number] Age/Sex: 55 / FADM Date: 02/25/25 Loc: . Attending Dr: Ann-Marie Muhammad MD Ordering Physician: Ann-Marie Muhammad MD Date of Service: 02/25/25 Procedure(s): XR tibia fibula LT 2V Accession Number(s): [id number] cc: Emilie Davis MD; Ann-Marie Muhammad MD [...] 02/25/25 1525 DD/ 1514 TD/TT: 02/25/25 1521 Director Of Assessing: Ann-Marie Muhammad MD IMG XR PROCEDURES Final [...] as of this encounter Care Teams Assistant Elementary Teacher Relationship Specialty Start Date End Date Emilie Davis MD [address] [place] [address] PCP - General Family Medicine 05/13/18 Morales Echavarria FNP [address] [place] [address] Nurse Practitioner Family Medicine 04/16/23 Aida Orozco [address] [place] [address] Gastroenterology 05/26/24 Fred Castanon [address] [place] [address] 07/21/24 Ele Mar MD [address] [place] [address] Hematology and Oncology 02/22/25 Marina Brown MD Rheumatology 02/10/25 documented as of this encounter
--- NOTE | 2025-03-02 08:07 | MHC.OFFVIS ---
Vital Signs 03/02/25 08:16 Height 5 ft 5 in Weight 101 lb BMI 16.8 Intake Visit Reasons: OV- Lumbar MRI Review,02/09/25 Intake Note: Harriet Jimenez) is a 54 year old male who presents with complaints of progressively worsening low back pain which radiates down his left leg to his left foot. He also has intermittent left groin pain. The patient states that he 1st injured his low back approximately ?30 years ago? while living in [place]. He did not undergo back surgery at that time. He also reports intermittent weakness in his left leg. He has been to formal physical therapy which gave him minimal relief. He has also tried Tylenol and anti-inflammatory medicines which gave him minimal relief. He has failed the last 6 weeks of conservative treatment. The patient states that his low back pain is now interfering with his activities of daily living and his ability to sleep well through the night. Allergies black pepper Allergy (Severe, Verified 03/02/25 08:13) Anaphylaxis Penicillins (PENICILLINS) Allergy (Intermediate, Verified 03/02/25 08:13) HIVES,SWELLING sumatriptan (SUMATRIPTAN) Adverse Reaction (Severe, Verified 03/02/25 08:13) PT STATES HEART ATTACK Medication List - Last Reconciled 03/02/25 by Nakul Velasco MD bisacodyl (Dulcolax (bisacodyl)) 10 mg (2 x 5 mg) PO BEDTIME 30 days cabotegravir ER (Apretude) 600 mg IM [id number] cholecalciferol (vitamin D3) 1,250 mcg PO MO famotidine (Pepcid) 40 mg PO BEDTIME galcanezumab-gnlm (Emgality) 300 mg (3 mL) subcut QMONTH 30 days linaclotide (Linzess) 290 mcg PO DAILY qbtltn-ewqmokkl-bikjtbh (pork) 3,000-9,500- 15,000 unit (Creon) 2 caps PO BID magnesium oxide 400 mg PO BEDTIME 30 days ondansetron 4 mg PO Q8H PRN Oxygen Home Use Start home O2 at 15-25 L/min via non-rebreather facemask x's 15-20 minutes at onset of cluster headache attack. Patient will require both M tanks and E tanks. [facility] Medical History Elevated LFTs Pancreatic mass Acute pancreatitis Pancreatic mass Upper abdominal pain Erosive esophagitis Abdominal pain Sleep difficulties Vomiting LEE (dyspnea on exertion) Arthritis Occipital neuralgia of left side New onset headache Diverticulosis of colon Chronic, continuous use of opioids Chronic GERD Palpitations Hypotension History of palpitations Dysphagia Disc degeneration, lumbar Spondylosis of lumbar spine Depression Past heart attack Hyperlipemia Erosive osteoarthritis of hands, bilateral GERD (gastroesophageal reflux disease) Hypertension Surgical History History of cholecystectomy Hx of colonoscopy History of esophagogastroduodenoscopy (EGD) H/O bilateral mastectomy H/O: hysterectomy Family History Mother Hypertension Breast cancer Maternal Grandmother Myocardial infarct Skin cancer Sister Heart problem Breast cancer Family/Other Esophageal cancer Social History Household Members: Family Housing: Apartment Are you a primary resident care manager rn to a significant other at home: No Do you presently have visiting nurse or other home services: No Alcohol intake: never Patient Tobacco Use Status: Former Tobacco user Substance Use Type: Marijuana service: No Physical Exam Vital Signs: BMI result Body Mass Index 16.8 Back/Spine/Pelvis Other: Low back examination shows left-sided paraspinal muscle tenderness, pain with range of motion, positive straight leg raise test on the left at 70 degrees Results Reviewed Results Reviewed: MRI of the patient's lumbar spine shows ?multilevel lumbar spondylosis, L2-L3 to L5-S1 pronounced at L3-L4 and L4-L5; broad-based left subarticular and foraminal herniated disc at L3-L4 and to a lesser extent L2-L3 encroaching the exiting nerve roots? Assessment & Plan Assessment & Plan (1) Low back pain radiating to left leg: Code(s): M54.50 - Low back pain, unspecified; M79.605 - Pain in left leg Category: Medical Plan Deloris presents with low back pain which radiates down her left leg due to lumbar stenosis. Thus, I will refer the patient to our pain management department here at [facility]. She will follow up as instructed. She will contact me prior to that appointment should her symptoms worsen in any way. Feel free to call me at any time should questions regarding her orthopedic management arise. I spent 22 minutes in reviewing the patient's records and imaging studies, seeing the patient and documenting in the medical record. Orders: Referrals Pain Management Referral M54.50 - Low back pain, unspecified, M79.605 - Pain in left leg Coding Level of Care Code Est Pt Level 3 (00772) Complex EM visit Add On G2211 Diagnoses Low back pain radiating to left leg M54.50; M79.605
--- OUTSIDE RECORDS SUMMARY | 2025-03-02 08:12 | XMS_ITS | Encounter Summary ---
Author Organization [employer] Address [address] 7t [place] [address] Care Team Providers Care Cost Specialist Name Role Phone Emilie Davis MD Primary Care Provider [phone] Morales Echavarria Unavailable Unavailable August Unavailable Fred Castanon Unavailable Ele Mar MD Unavailable [phone] Reason for Visit * Reason Onset Date Comments Hospital Follow-up 02/22/2025 Encounter Details Date Type Department Care Team (Late st Contact Info) Description 02/22/2025 Telephone [facility] MEDICINE 230 [place], [place] [phone] Emilie Davis MD 230 [place] [address] Hospital Follow-up Social History Tobacco Use Types [...] 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 Hospital: [facility] [place] [place] Date of admission: 02/18 Discharge date: 02/21 Diagnosed: pt did a biopsy and they injured his pancreas *Send message to [place] Clinical Care Coordinators Contact pt at [phone] documented in this encounter Plan of Treatment Upcoming Encounters Date Type Department Care Team (Late st Contact Info) Description 03/03/2025 9:30 AM EDT Office Visit [facility] MEDICINE [address] [place] [address] Emilie Davis MD 230 [place], [place] [phone] 03/24/2025 11:00 AM EST Clinical Support [facility]ICINE [address] [place] [address] Medina Lewis, RN 230 [place] [address] 06/04/2025 3:00 PM EST Office Visit [facility] OPTOMETRY [address] [place] [address] Merissa Donis, OD 230 [place] [address] documented as of this encounter Visit Diagnoses Not on filedocumented in this encounter Additional Health Concerns Assessment Noted Time PHQ-9 Depression Total Score: 3 04/30/20 9:17 AM EST documented as of this encounter Care Teams Cost Specialist Relationship Specialty Start Date End Date Emilie Davis MD [address] [place] [address] PCP - General Family Medicine 05/13/18 Morales Echavarria FNP [address] [place] [address] Nurse Practitioner Family Medicine 04/16/23August [address] [address] Gastroenterology 05/26/24 Fred Castanon [address] [place] [address] 07/21/24 Ele Mar MD [address] [place] [address] Hematology and Oncology 02/22/25 Marina Brown MD Rheumatology 02/10/25 documented as of this encounter
--- OUTSIDE RECORDS SUMMARY | 2025-03-02 08:12 | XMS_ITS | Encounter Summary ---
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 Not on file Not on file documented as of this encounter Plan of Treatment Upcoming Encounters Date Type Department Care Team (Late st Contact Info) Description 03/03/2025 9:30 AM EDT Office Visit [facility] MEDICINE [address] [place] [address] Emilie Davis MD 230 [place] [address] 03/24/2025 11:00 AM EST Clinical Support [facility] MEDICINE [address] [place] [address] Medina Lewis, RONALD 230 [place] [address] 06/04/2025 3:00 PM EST Office Visit [facility] OPTOMETRY [address] [place] [address] Merissa Donis OD 230 [place] [address] documented as of this encounter Procedures Procedure [...] documented as of this encounter Care Teams Ledge Man Relationship Specialty Start Date End Date Emilie Davis MD [address] [place] [address] PCP - General Family Medicine 05/13/18 Morales Echavarria FNP [address] [place] [address] 04140 Nurse Practitioner Family Medicine 04/16/23OrozcoAugust [address] [place] [address] Gastroenterology 05/26/24 Fred Castanon [address] [place] [address] 07/21/24 Ele Mar MD [address] [place] [address] Hematology and Oncology 02/22/25 Marina Brown MD Rheumatology 02/10/25 documented as of this encounter
--- OUTSIDE RECORDS SUMMARY | 2025-03-02 08:13 | XMS_ITS | Encounter Summary ---
Author Organization [employer] Address [address] 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 Dr Jj states pt insurance not accepted at [facility]. She can refer him to [facility]. I spoke with him and he agrees. Dr. Jj will be placeing referral for surgical onc in [facility]. Deloris agrees with the plan. documented in this encounter Plan of Treatment Upcoming Encounters Date Type Department Care Team (Late st Contact Info) Description 03/03/2025 9:30 AM EDT Office Visit [facility] [address] [place] [address] Emilie Davis MD [address] [place] [address] 03/24/2025 11:00 AM EST Clinical Support [facility] [address] [place] [address] Medina Lewis, RN 230 [place] [address] 06/04/2025 3:00 PM EST Office Visit [facility] OPTOMETRY [address] [place] [address] Gagandeep, Merissa, OD 230 [place] [address] documented as of this encounter Visit Diagnoses Not on filedocumented in this encounter Additional Health Concerns Assessment Noted Time PHQ-9 Depression Total Score: 3 04/30/20 9:17 AM EST documented as of this encounter Care Teams Copy Supervisor Relationship Specialty Start Date End Date Emilie Davis MD [address] [place] [address] PCP - General Family Medicine 05/13/18 Morales Echavarria FNP [address] [place] [address] Nurse Practitioner Family Medicine 04/16/23August [address] [address] Gastroenterology 05/26/24 Fred Castanon [address] [address] 07/21/24 Ele Mar MD [address] [place] [address] Hematology and Oncology 02/22/25 Marina Brown MD Rheumatology 02/10/25 documented as of this encounter
--- OUTSIDE RECORDS SUMMARY | 2025-03-02 08:13 | XMS_ITS | Encounter Summary ---
Author Organization [employer] [facility] Address [address] [facility] [address]t [place] [address] Care Team Providers Care Account Specialist Name Role Phone Emilie Davis MD Primary Care Provider [phone] Morales Echavarria Unavailable Unavailable August Unavailable Fred Castanon Unavailable Ele Mar MD Unavailable [phone] Reason for Visit * Reason Onset Date Comments Referral 07/18/2022 Encounter Details Date Type Department Care Team (Late st Contact Info) Description 07/18/2022 Telephone [facility] 230 [place] [address] Emilie Davis MD 230 [place] [address] Referral Social History Tobacco Use Types Packs/Day [...] to our [facility]. Please contact pt [phone] documented in this encounter Plan of Treatment Upcoming Encounters Date Type Department Care Team (Late st Contact Info) Description 03/03/2025 9:30 AM EDT Office Visit [facility] 230 [place] [address] Emilie Davis MD 230 [place] [address] 03/24/2025 11:00 AM EST Clinical Support [facility] 230 [place] [address] Medina Lewis, RONALD 230 [place] [address] 06/04/2025 3:00 PM EST Office Visit [facility] OPTOMETRY [address] [place] [address] Merissa Donis, OD 230 [place] [address] documented as of this encounter Visit Diagnoses Not on filedocumented in this encounter Care Teams Account Specialist Relationship Specialty Start Date End Date Emilie Davis MD [address] [place] [address] PCP - General Family Medicine 05/13/18 Morales Echavarria FNP [address] [place] [address] Nurse Practitioner Family Medicine 04/16/23August [address] [place] [address] Gastroenterology 05/26/24 Fred Castanon [address] [place] [address] 07/21/24 Ele Mar MD [address] [place] [address] Hematology and Oncology 02/22/25 Marina Brown MD Rheumatology 02/10/25 documented as of this encounter
--- OUTSIDE RECORDS SUMMARY | 2025-03-02 08:13 | XMS_ITS | Encounter Summary ---
Author Organization [facility] Address [address] 7t [place] [address] Care Team Providers Care Pattern Clerk Name Role Phone Emilie Davis MD Primary Care Provider [phone] Morales Echavarria Unavailable Unavailable August Unavailable Fred Castanon Unavailable Eel Mar MD Unavailable [phone] Encounter Details Date Type Department Care Team (Late st Contact Info) Description 04/22/2022 Orders Only [facility] MED [facility] PEDS [address] [place], [place] [phone] Emilie Davis MD [address] [place] [address] [phone] HSV (herpes simplex virus) anogenital infection (Primary [...] Description 03/03/2025 9:30 AM EDT Office Visit [facility] [address] [place] [address] [phone] Emilie Davis MD 230 [place], [place] [phone] 03/24/2025 11:00 AM EST Clinical Support [facility] 230 [place] [address] Medina Lewis, RONALD 230 [place] [address] 06/04/2025 3:00 PM EST Office Visit [facility] [address] [place] [address] Merissa Donis, OD 230 [place] [address] documented as of this encounter Visit Diagnoses Diagnosis HSV (herpes simplex virus) anogenital infection- Primary Herpes simplex without mention of complication Pancreatic mass- Primary Unspecified disease of pancreas documented in this encounter Care Teams Pattern Clerk Relationship Specialty Start Date End Date Emilie Davis MD [address] [place] [address] PCP - General Family Medicine 05/13/18 Morales Echavarria FNP [address] [place] [address] 55331 Nurse Practitioner Family Medicine 04/16/23August [address] [place] [address] 18141 Gastroenterology 05/26/24 Fred Castanon [address] [place] [address] 07/21/24 Ele Mar MD [address] [place] [address] 32281 Hematology and Oncology 02/22/25 Marina Brown MD Rheumatology 02/10/25 documented as of this encounter
--- OUTSIDE RECORDS SUMMARY | 2025-03-02 08:13 | XMS_ITS | Encounter Summary ---
Author Organization [facility] Address [address] [facility] [address] [facility] [address] 7t [place] [address] Care Team Providers Care Java Software Name Role Phone Emilie Davis MD Primary Care Provider [phone]- [phone] Morales Echavarria Unavailable Unavailable August Unavailable Fred Castanon Unavailable Ele Mar MD Unavailable [phone] Encounter Details Date Type Department Care Team ([facility] Contact Info) Description 11/28/2022 Abstract [facility] [address] [place] [address] Emilie Davis MD [address] [place] [address] [phone] Social History Tobacco Use Types Packs/Day Years [...] Description 03/03/2025 9:30 AM EDT Office Visit [facility] 230 [place] [address] Emilie Davis MD 230 [place] [address] 03/24/2025 11:00 AM EST Clinical Support [facility] 230 [place] [address] Medina Lewis, RN 230 [place] [address] 06/04/2025 3:00 PM EST Office Visit [facility] OPT[facility] [address] [place] [address] GagandeepMerissa santos, OD 230 [place] [address] documented as of this encounter Visit Diagnoses Not on filedocumented in this encounter Additional Health Concerns Assessment Noted Time PHQ-9 Depression Total Score: 19 023 9:24 AM EDT documented as of this encounter Care Teams Java Software Relationship Specialty Start Date End Date Emilie Davis MD [address] [place] [address] 25283 PCP - General Family Medicine 05/13/18 Morales Echavarria FNP [address] [place] [address] 32096 Nurse Practitioner Family Medicine 04/16/23 Pam Aida [address] [place] [address] 05764 Gastroenterology 05/26/24 Fred Castanon [address] [address] 07/21/24 Ele Mar MD [address] [place] [address] 30101 Hematology and Oncology 02/22/25 Marina Brown MD Rheumatology 02/10/25 documented as of this encounter
--- OUTSIDE RECORDS SUMMARY | 2025-03-02 08:13 | XMS_ITS | Encounter Summary ---
Author Organization [employer] Address [address] [facility] [address] 7t [place] [address] Care Team Providers Care Tag Marker Name Role Phone Emilie Davis MD Primary Care Provider [phone]- [phone] Morales Echavarria Unavailable Unavailable August Unavailable Fred Castanon Unavailable Ele Mar MD Unavailable [phone] Reason for Visit * Reason Comments Med Refill Encounter Details Date Type Department Care Team (Late st Contact Info) Description 01/17/2024 Refill [facility] 230 [place], [place] [phone] Emilie Davis MD 230 [place], [place] [phone] 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) Social [...] Office Visit [facility] [address] [place] [address] Emilie Davis MD 230 [place] [address] 03/24/2025 11:00 AM EST Clinical Support [facility] 230 [place] [address] Medina Lewis, RN 230 [place] [address] 06/04/2025 3:00 PM EST Office Visit [facility] 267 [place] [address] Merissa Donis, OD 230 [place] [address] documented as of this encounter Visit Diagnoses Diagnosis Gender 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- Primary Pancreatic mass- Primary Unspecified disease of pancreas documented in this encounter Additional Health Concerns Assessment Noted Time PHQ-9 Depression Total Score: 3 04/30/20 23 9:17 AM EST documented as of this encounter Care Teams Tag Marker Relationship Specialty Start Date End Date Emilie Davis MD 230 [place] [address] PCP - General Family Medicine 05/13/18 Morales Echavarria FNP 230 [place] [address] Nurse Practitioner Family Medicine 04/16/23 Pam Aida [address] [place] [address]56 Gastroenterology 05/26/24 Fred Castanon [address] [place] [address] 07/21/24 Ele Mar MD [address] [place] [address]94 Hematology and Oncology 02/22/25 Marina Brown MD Rheumatology 02/10/25 documented as of this encounter
--- OUTSIDE RECORDS SUMMARY | 2025-03-02 08:13 | XMS_ITS | Encounter Summary ---
Author Organization [employer] Address [address] [facility] [address] 7t [place] [address] Care Team Providers Care Webbing Tacker Name Role Phone [place] HeightsEmilie MD Primary Care Provider [phone]- [phone] Morales Echavarria Unavailable Unavailable August Unavailable Fred Castanon Unavailable Ele Mar MD Unavailable [phone] Encounter Details Date Type Department Care Team (Late st Contact Info) Description 02/25/2025 Orders Only [facility] MED & PEDS 505 [place], [place] [phone] Ann-Marie Muhammad MD 505 [place], [place] [phone] Social History Tobacco Use Types Packs/Day Years [...] 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 Not on file Not on file documented as of this encounter Plan of Treatment Upcoming Encounters Date Type Department Care Team (Late st Contact Info) Description 03/03/2025 9:30 AM EDT Office Visit [facility] [address] [place] [address] Emilie Davis MD 230 [place] [address] 03/24/2025 11:00 AM EST Clinical Support [facility] 230 [place] [address] Medina Lewis, RONALD 230 [place] [address] 06/04/2025 3:00 PM EST Office Visit [facility] OPTOM[facility] [address] [place] [address] Merissa Donis, OD 230 [place] [address] documented as of this encounter Procedures Procedure Name Priority Date/Time Associated Diagnosis Comments LOWER EXTREMITY VENOUS DUPLEX LEFT Routine 02/25/2025 3:27 PM EDT documented in this encounter Results * Lower Extremity Venous Duplex (02/25/2025 3:27 PM EDT) 02/25/2025 3:27 PM EDT Narrative [facility] - 02/25/2025 3:48 PM EDT [address] [address] Ultrasound Report Signed Patient: Harriet Valdez MR#: [id number] : 1970 Acct:[id number] Age/Sex: 55 / F ADM Date: 02/25/25 Loc: HO.US Attending Dr: Ann-Marie Muhammad MD Ordering Physician: Ann-Marie Muhammad MD Date of Service: 02/25/25 Procedure(s): US venous duplex LE LT Accession Number(s): [id number] cc: Emilie Davis MD; Ann-Marie Muhammad MD [...] 02/25/25 1546 DD/ 1527 TD/TT: 02/25/25 1537 Case Folder: Procedure Note Donotuseinterpreter, Image - 02/25/[address] [address] Ultrasound Report Signed Patient: Harriet ValdezMR#: [id number] : 1970Acct:[id number] Age/Sex: 55 / FADM Date: 02/25/25 Loc: .US Attending Dr: Ann-Marie Muhammad MD Ordering Physician: Ann-Marie Muhammad MD Date of Service: 02/25/25 Procedure(s): US venous duplex LE LT Accession Number(s): [id number] cc: Emilie Davis MD; Ann-Marie Muhammad MD [...] 02/25/25 1546 DD/ 1527 TD/TT: 02/25/25 1537 Case Folder: us Ann-Marie Muhammad MD CV VASCULAR PROCEDURES Final Result [facility] [address] [place] [address] [phone] documented in this encounter Visit Diagnoses Not on filedocumented in this encounter Additional Health Concerns Assessment Noted Time PHQ-9 Depression Total Score: 3 04/30/20 23 9:17 AM EST documented as of this encounter Care Teams Webbing Tacker Relationship Specialty Start Date End Date Emilie Davis MD 230 [place] [address] PCP - General Family Medicine 05/13/18 Morales Echavarria FNP 230 [place] [address] Nurse Practitioner Family Medicine 04/16/23 Pam Aida [address] [place] [address]794 Gastroenterology 05/26/24 Fred Castanon [address] [place] [address] 07/21/24 Ele Mar MD [address] [place] [address] Hematology and Oncology 02/22/25 Marina Brown MD Rheumatology 02/10/25 documented as of this encounter
--- OUTSIDE RECORDS SUMMARY | 2025-03-02 08:13 | XMS_ITS | Encounter Summary ---
Author Organization [facility] Address [address] [facility] [address] 7t [place] [address] Care Team Providers Care Manager Biostatistics Name Role Phone Emilie Davis MD Primary Care Provider [phone]- [phone] Morales Echavarria Unavailable Unavailable August Unavailable Fred Castanon Unavailable Ele Mar MD Unavailable [phone] Reason for Visit * Reason Onset Date Comments Results 02/25/2025 Encounter Details Date Type Department Care Team ([facility] st Contact Info) Description 02/25/2025 Results Follow-Up [facility] MED & PEDS 505 [place] [address] Ann-Marie Muhammad MD 505 [place], [place] [phone] Lower Extremity Venous Duplex Social History Tobacco Use Types Packs/Day Years [...] 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 He can return to [facility] for further evaluation of his symptoms if needed. Pt verbalizes understanding. documented in this encounter Plan of Treatment Upcoming Encounters Date Type Department Care Team (Late st Contact Info) Description 03/03/2025 9:30 AM EDT Office Visit [facility] [address] [place] [address] Emilie Davis MD 230 [place] [address] 03/24/2025 11:00 AM EST Clinical Support [facility] 230 [place] [address] Medina Lewis, RONALD 230 [place] [address] 06/04/2025 3:00 PM EST Office Visit [facility] [address] [place] [address] Merissa Donis, OD 230 [place] [address] documented as of this encounter Visit Diagnoses Not on filedocumented in this encounter Additional Health Concerns Assessment Noted Time PHQ-9 Depression Total Score: 3 04/30/20 9:17 AM EST documented as of this encounter Care Teams Manager Biostatistics Relationship Specialty Start Date End Date Emilie Davis MD 230 [place] [address] PCP - General Family Medicine 05/13/18 Morales Echavarria FNP [address] [place] [address] 35261 Nurse Practitioner Family Medicine 04/16/[address] [place] [address]75 Gastroenterology 05/26/24 Fred Castanon [address] [place] [address] 07/21/24 Ele Mar MD [address] [place] [address] 76358 Hematology and Oncology 02/22/25 Marina Brown MD Rheumatology 02/10/25 documented as of this encounter
--- OUTSIDE RECORDS SUMMARY | 2025-03-02 08:13 | XMS_ITS | Encounter Summary ---
Author Organization [employer] [facility] Address [address] [facility] 7t [place] [address] Care Team Providers Care Manager Logistic Name Role Phone Emilie Davis MD Primary Care Provider [phone] Morales Echavarria Unavailable Unavailable August Unavailable Fred Castanon Unavailable Ele Mar MD Unavailable [phone] Reason for Visit * Reason Comments Med Refill Encounter Details Date Type Department Care Team (Late st Contact Info) Description 01/01/2023 Refill [facility] MEDICINE 230 [place] [address] Emilie Davis MD 230 [place], [place] [phone] Social History Tobacco Use Types Packs/Day Years [...] 8:54 AM EDT T/C to patient via archaeology professor regarding x-ray result. No answer, message left [...] Description 03/03/2025 9:30 AM EDT Office Visit [facility]INE 230 [place] [address] Emilie Davis MD 230 [place] [address] 03/24/2025 11:00 AM EST Clinical Support [facility]INE 230 [place] [address] Medina Lewis, RONALD 230 [place] [address] 06/04/2025 3:00 PM EST Office Visit [facility] OPTOMETRY [address] [place] [address] Merissa Donis, OD 230 [place] [address] documented as of this encounter Visit Diagnoses Not on filedocumented in this encounter Additional Health Concerns Assessment Noted Time PHQ-9 Depression Total Score: 19 023 9:24 AM EDT documented as of this encounter Care Teams Manager Logistic Relationship Specialty Start Date End Date Emilie Davis MD 230 [place] [address] PCP - General Family Medicine 05/13/18 Morales Echavarria FNP 230 [place] [address] Nurse Practitioner Family Medicine 04/16/23 Aida Orozco [address] [place] [address]143 Gastroenterology 05/26/24 Fred Castanon [address] [place] [address] 07/21/24 Ele Mar MD 575 [place] [address] Hematology and Oncology 02/22/25 Marina Brown MD Rheumatology 02/10/25 documented as of this encounter
--- OUTSIDE RECORDS SUMMARY | 2025-03-02 08:13 | XMS_ITS | Encounter Summary ---
Author Organization [employer] [facility] Address [address] [facility] 7t [place] [address] Care Team Providers Care Manager Employment Name Role Phone Emilie Davis MD Primary Care Provider Morales Echavarria Unavailable Unavailable August Unavailable Fred Castanon Unavailable Ele Mar MD Unavailable [phone] Encounter Details Date Type Department Care Team (Late st Contact Info) Description 05/27/[address] [address] Emilie Davis MD [address] [place] [address] [phone] Social History Tobacco Use Types Packs/Day Years [...] 03/03/2025 9:30 AM EDT Office Visit [address] [phone] Emilie Davis MD [address] [place] [address] 03/24/2025 11:00 AM EST Clinical Support [address] [place] [address] Medina Lewis, RN 230 [place] [address] 06/04/2025 3:00 PM EST Office Visit [facility] OPTOMETRY 267 [place] [address] Merissa Donis, OD 230 [place] [address] documented as of this encounter Procedures Procedure [...] ORDERABLES F inal Result Performing Organization Address City/[facility]/ZIP Co de Phone Number [facility] [address] [place] [address] [phone] documented in this encounter Visit Diagnoses Not on filedocumented in this encounter Care Teams Manager Employment Relationship Specialty Start Date End Date Emilie Davis MD [address] [place] [address] PCP - General Family Medicine 05/13/18 Morales Echavarria FNP [address] [place] [address] 92258 Nurse Practitioner Family Medicine 04/16/23 Pam Aida [address] [place] [address]00 Gastroenterology 05/26/24 Fred Castanon [address] [place] [address] 07/21/24 Ele Mar MD [address] [place] [address] 9[address]78 Hematology and Oncology 02/22/25 Marina Brown MD Rheumatology 02/10/25 documented as of this encounter
--- OUTSIDE RECORDS SUMMARY | 2025-03-02 08:13 | XMS_ITS | Clinical Summary ---
Author Organization [facility] Address [address] [address] Phone Care Team Providers Care Cable Puller Name Role Phone Emilie Davis MD Primary [...] ACO C3 ACO C3 ACO C3 [facility]CO [facility] [place] [id number] [employer] Advance Directives For more information, please contact: [phone] (9AM - 5PM [facility], Saturday-Saturday) * Full Code (Presumed) (Latest Code Status on File) Date Activated Date Inactivated Comments 10/28/2018 9:51 AM 10/28/2018 7:25 PM Care Teams Cable Puller Relationship Specialty Start Date End Date Lander, Emilie Way MD [address] [place] [address] PCP - General Family Medicine 06/03/18 Additional Source Comments The information contained in this document represents components of the legal health record. It is not the complete legal health record.[facility]
--- OUTSIDE RECORDS SUMMARY | 2025-03-02 08:13 | XMS_ITS | Encounter Summary ---
Author Organization [employer] [facility] Address [address] [facility] 7t [place] [address] Care Team Providers Care Timber Appraiser Name Role Phone Emilie Davis MD Primary Care Provider Morales Echavarria Unavailable Unavailable August Unavailable Fred Castanon Unavailable Ele Mar MD Unavailable [phone] Reason for Visit * Reason Comments Med Refill Encounter Details Date Type Department Care Team (Late st Contact Info) Description 06/27/2022 Refill [facility]INE [address] [place] [address] [phone] Emilie Davis MD [address] [place] [address] [phone] Social History Tobacco Use Types Packs/Day Years [...] 9:30 AM EDT Office Visit [facility] [address] [place] [address] [phone] Emilie Davis MD [address] [place] [address] [phone] 03/24/2025 11:00 AM EST Clinical Support [facility] MED[facility]INE 230 [place] [address] Medina Lewis, RN 230 [place] [address] 06/04/2025 3:00 PM EST Office Visit [facility] OPTOMETRY [address] [place] [address] Merissa Donis, OD 230 [place] [address] documented as of this encounter Visit Diagnoses Not on filedocumented in this encounter Care Teams Timber Appraiser Relationship Specialty Start Date End Date Ryan, MD Emilie 230 [place] [address] PCP - General Family Medicine 05/13/18 Moraels Echavarria FNP [address] [place] [address] Nurse Practitioner Family Medicine 04/16/23August [address] [place] [address] 3[address] [place] [address] Gastroenterology 05/26/24 Fred Castanon [address] [place] [address] 07/21/24 Ele Mar MD [address] [place] [address] Hematology and Oncology 02/22/25 Marina Brown MD Rheumatology 02/10/25 documented as of this encounter
--- OUTSIDE RECORDS SUMMARY | 2025-03-02 08:13 | XMS_ITS | Encounter Summary ---
Author Organization [employer] Address [address] [facility] [address] [place] [address] Care Team Providers Care Deckhand Shrimp Boat Name Role Phone Emilie Davis MD Primary Care Provider [phone] Morales Echavarria Unavailable Unavailable August Unavailable Fred Castanon Unavailable Ele Mar MD Unavailable [phone] Reason for Visit * Reason Onset Date Comments Referral 07/20/2024 Encounter Details Date Type Department Care Team (Late st Contact Info) Description 07/20/[address] 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 Contact pt at [phone] documented in this encounter Plan of Treatment Upcoming Encounters Date Type Department Care Team (Late st Contact Info) Description 03/03/2025 9:30 AM EDT Office Visit [facility] MEDICINE [address] [place] [address] Emilie Davis MD [address] [place] [address] 03/24/2025 11:00 AM EST Clinical Support [facility] MEDICINE [address] [place] [address] Medina Lewis, RN 230 [place] [address] 06/04/2025 3:00 PM EST Office Visit [facility] OPTOMETRY [address] [place] [address] Merissa Donis, OD 230 [place] [address] documented as of this encounter Visit Diagnoses Not on filedocumented in this encounter Additional Health Concerns Assessment Noted Time PHQ-9 Depression Total Score: 3 04/30/20 9:17 AM EST documented as of this encounter Care Teams Deckhand Shrimp Boat Relationship Specialty Start Date End Date Emilie Davis MD 230 [place] [address] PCP - General Family Medicine 05/13/18 Morales Echavarria FNP [address] [place] [address] Nurse Practitioner Family Medicine 04/16/23August [address] [place] [address] Gastroenterology 05/26/24 Fred Castanon [address] [place] [address] 07/21/24 Ele Mar MD [address] [place] [address] Hematology and Oncology 02/22/25 Marina Brown MD Rheumatology 02/10/25 documented as of this encounter
--- OUTSIDE RECORDS SUMMARY | 2025-03-02 08:13 | XMS_ITS | Encounter Summary ---
Author Organization [employer] Address [address] [facility] [address] 7t [place] [address] Care Team Providers Care Pension Agent Name Role Phone Emilie Davis MD Primary Care Provider [phone] Morales Echavarria Unavailable Unavailable August Unavailable Fred Castanon Unavailable Ele Mar MD Unavailable [phone] Encounter Details Date Type Department Care Team (Late st Contact Info) Description 03/25/2023 Orders Only [facility] MEDICINE 230 [place] [address] Emilie Davis MD 230 [place], [place] [phone] Social History Tobacco Use Types Packs/Day Years [...] Description 03/03/2025 9:30 AM EDT Office Visit [facility] MEDICINE 230 [place] [address] Emilie Davis MD 230 [place] [address] 03/24/2025 11:00 AM EST Clinical Support [facility] MEDICINE 230 [place] [address] Medina Lewis, RN 230 [place] [address] 06/04/2025 3:00 PM EST Office Visit [facility] OPTOMETRY 267 [place] [address] Merissa Donis, OD 230 [place] [address] documented as of this encounter Visit Diagnoses Not on filedocumented in this encounter Additional Health Concerns Assessment Noted Time PHQ-9 Depression Total Score: 10 023 9:08 AM EDT documented as of this encounter Care Teams Pension Agent Relationship Specialty Start Date End Date Emilie Davis MD 230 [place] [address] PCP - General Family Medicine 05/13/18 Morales Echavarria FNP 230 [place] [address] Nurse Practitioner Family Medicine 04/16/23 Aida Orozco [address] [place] [address] Gastroenterology 05/26/24 Fred Castanon [address] [place] [address] 07/21/24 Ele Mar MD [address] [place] [address] Hematology and Oncology 02/22/25 Marina Brown MD Rheumatology 02/10/25 documented as of this encounter
--- OUTSIDE RECORDS SUMMARY | 2025-03-02 08:13 | XMS_ITS | Encounter Summary ---
Author Organization [facility] Address [address] [place] [address] Care Team Providers Care Designer Architect Name Role Phone Emilie Davis MD Primary Care Provider [phone] Morales Echavarria Unavailable Unavailable August Unavailable Fred Castanon Unavailable Ele Mar MD Unavailable [phone] Reason for Referral * Consultation (Urgent) - Closed Specialty Diagnoses / Procedures Referred By Contac t Referred To Contact Behavioral Health Diagnoses Depression, unspecified depression type Emilie Davis MD [address] [place] [address] Phone: tel: fax: Referral ID Status Reason Start Date Expiration Date V isits Requested Visits Authorized [id number] Closed Specialty Services Required 02/05/2025 02/05/2026 1 1 Encounter Details Date Type Department Care Team (Late st Contact Info) Description 02/05/2025 Orders Only [facility] MEDICINE [address] [place] [address] [phone] Emilie Davis MD [address] [place], [place] [phone] Depression, unspecified depression type (Primary Dx) Social [...] 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 file Not on file documented as of this encounter Plan of Treatment Upcoming Encounters Date Type Department Care Team (Late st Contact Info) Description 03/03/2025 9:30 AM EDT Office Visit [facility] MEDICINE [address] [place] [address] Emilie Davis MD [address] [place] [address] 03/24/2025 11:00 AM EST Clinical Support [facility] MEDICINE [address] [place] [address] Medina Lewis, RN [address] [place] [address] 06/04/2025 3:00 PM EST Office Visit [facility] OPTOMETRY [address] [place] [address] Merissa Donis, OD [address] [place] [address] Scheduled Referrals Name Type Priority Associated Diagnoses [...] documented as of this encounter Care Teams Designer Architect Relationship Specialty Start Date End Date Emilie Davis MD [address] [place] [address] PCP - General Family Medicine 05/13/18 Morales Echavarria FNP [address] [place] [address] Nurse Practitioner Family Medicine 04/16/23 Pam Aida [address] [place] [address] [address] [place] [address] Gastroenterology 05/26/24 Fred Castanon [address] [address] 07/21/24 Ele Mar MD [address] [place] [address] Hematology and Oncology 02/22/25 Marina Brown MD Rheumatology 02/10/25 documented as of this encounter
--- OUTSIDE RECORDS SUMMARY | 2025-03-02 08:13 | XMS_ITS | Encounter Summary ---
Author Organization [facility] Address [address] [place] [phone] Phone Care Team Providers Care Escrow Processor Name Role Phone Emilie Davis MD Primary Care Provi baldomero Encounter Details Date Type Department Care Team (Late st Contact Info) Description 10/28/2018 Procedure Pass OR Admitting Dept - Virtual Department [address] [place] [address] Social History Tobacco Use Types Packs/Day Years [...] on filedocumented in this encounter Care Teams Escrow Processor Relationship Specialty Start Date End Date Emilie Davis MD [address] [place] [phone] PCP - General Family Medicine 06/03/18 documented as of this encounter Additional Source Comments The information contained in this document represents components of the legal health record. It is not the complete legal health record.[facility]
--- OUTSIDE RECORDS SUMMARY | 2025-03-02 08:13 | XMS_ITS | Encounter Summary ---
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 file Not on file documented as of this encounter Plan of Treatment Upcoming Encounters Date Type Department Care Team ([facility] st Contact Info) Description 03/03/2025 9:30 AM EDT Office Visit [facility] MEDICINE [address] [place] [phone] Emilie Davis MD [address] [place] [address] 03/24/2025 11:00 AM EST Clinical Support [facility] MEDICINE [address] [place] [address] Medina Lewis, RONALD [address] [place] [address] 06/04/2025 3:00 PM EST Office Visit [facility] OPTOMETRY [address] [place] [address] Merissa Donis, GINA [address] [place] [address] documented as of this encounter Visit Diagnoses Not on filedocumented in this encounter Additional Health Concerns Assessment Noted Time PHQ-9 Depression Total Score: 3 04/30/20 23 9:17 AM EST documented as of this encounter Care Teams Staff Submarine Warfare Officer Relationship Specialty Start Date End Date Emilie Davis MD [address] [place] [phone] PCP - General Family Medicine 05/13/18 Morales Echavarria FNP [address] [place] [address] Nurse Practitioner Family Medicine 04/16/23 Aida Orozco [address] [place] [address] Gastroenterology 05/26/24 Fred Castanon [address] [place] [address] 07/21/24 Ele Mar MD [address] [place] [address] Hematology and Oncology 02/22/25 Marina Brown MD Rheumatology 02/10/25 documented as of this encounter
--- OUTSIDE RECORDS SUMMARY | 2025-03-02 08:14 | XMS_ITS | Clinical Summary ---
Author Organization [employer] Address [address] [place] [address] Care Team Providers Care Mica Paster Name Role Phone Emilie Davis MD Primary Care Provider [phone] Morales Echavarria Unavailable Unavailable August Unavailable Fred Castanon Unavailable Ele Mar MD Unavailable [phone] Allergies Active Allergy Reactions Criticality Noted Date Comments Penicillins Anaphylaxis,Rash High 05/16/2017 Sumatriptan 10/28/2018 Medications * This document contains information received from the source organization and may not represent a complete record from that organization. Needle, Disp, (BD Disp Hobson) 25G X 5/8 miscIndications :Gender dysphoria in [...] 25 Active cholecalciferol (Vitamin D-3) 1.25 MG (57105 UT) capsule Take 1 capsule by mouth [...] mouth Once per day. 12/30/19 25 Active Active Problems Problem Noted Date Diagnosed [...] ultrasound and biopsy of this mass at [facility] on 02/18/2025. FNA of pancreatic head [...] -Staging CT chest with contrast performed at [facility] on 02/23/2025 showed no evidence of metastaticdisease in chest. Mild coronary artery calcifications, calcified granulomas with soft tissue nodules unchanged since 2018 and considered benign. -PET scan has been ordered. -Clinical stage T2 N0 -Seen by Dr. Jj oncologist 02/25/25 where she discussed role of preoperative or neoadjuvant chemotherapy for downsizing tumor. He was referred to [facility] surgical Oncology. -If the plan is to go ahead with chemotherapy, he would get a Port-A-Cath placed by intervention Radiology. Chemotherapy with FOLFIRINOX regimen will be discussed. -Family history of breast cancer and personal history of pancreatic cancer. BRCA1 and 2 and 40 gene panel has been sent today to [facility]. -Chronic dysphagia and underweight. Nutrition consult has been placed. Idiopathic acute pancreatitis without infection or necrosis 12/31/2024 Overview (12/31/2024): -dx at [facility] 12/2024 Patient admitted to general medical [...] tonsils/cerebellar tonsil ectopia -seen by flor Rodriguez, ACCOUNT DEVELOPMENT SPECIALIST 09/24/24 As patient has new onset left-sided [...] XR 05/20/24 Coronary artery disease invo lving tangirnaq heart without angina pectoris 05/20/2024 Overview (10/15/2024): Hx NSTE CT 09/2017 -continue oscar -Stress test without evidence [...] Non-Reactive 03/18/2024 -03/2024 call from Holli at [facility] who reports pt originally positive for syphilis in [place] 09/18/1990 (RPR of 1:4) and was treated. [...] care facilitated by Alessio. -dental home is [facility] -health care proxy filed 03/16/24 Assessment & Plan (03/17/2024 6:12 AM EST): -next physical exam due after 03/16/2025 -eye care facilitated by Alessio. -dental home is [facility] -health care proxy filed 03/16/24 Assessment & Plan (03/22/2023 9:17 AM EST): -next physical exam due after 12/07/2023. -eye care facilitated by Alessio. -dental home is outside of [facility] Assessment & Plan (12/06/2022 10:19 AM EDT): -next physical exam dueafter 12/07/2023. -eye care facilitated by Alessio. -dental home is outside of [facility] Hx of hepatitis C 11/26/2022 Overview [...] rays suggests osteoarthritis. Seen by rheumatology in [place]. Ibuprofen and NSAIDs cause gastritis. Minimal relief with acetaminophen. He was referred back to rheumatology in [place] 08/23/2020 but provider left the area. started on Tramadol. Take 3 times per week. He is not taking at this time -note from geology associate Dr. Marina Brown MD from 02/09/25 reviewed Assessment & Plan (03/17/2024 6:08 AM EST): X rays suggests osteoarthritis. Seen by rheumatology in [place]. Ibuprofen and NSAIDs cause gastritis. Minimal relief with acetaminophen. He was referred back to rheumatology in [place] 08/23/2020 but provider left the area. started on Tramadol. Take 3 times per week. He is not taking at this time. Assessment & Plan (03/22/2023 9:15 AM EST): X rays suggests osteoarthritis. Seen by rheumatology in [place]. Ibuprofen and NSAIDs cause gastritis. Minimal relief with acetaminophen. He was referred back to rheumatology in [place] 08/23/2020 but provider left the area. started on Tramadol. Take 3 times per week. Will need COT in the future. Assessment & Plan (12/06/2022 8:54 AM EDT): X rays suggests osteoarthritis. Seen by rheumatology in [place]. Ibuprofen and NSAIDs cause gastritis. Minimal relief with acetaminophen. He was referred back to rheumatology in [place] 08/23/2020 but provider left the area. started on Tramadol. Take 3 times per week. Will need COT in the future. Assessment & Plan (10/11/2022 9:58 AM EDT): X rays suggests osteoarthritis. Seen by rheumatology in [place]. Ibuprofen and NSAIDs cause gastritis. Minimal relief with acetaminophen. He was referred back to rheumatology in [place] 08/23/2020 but provider left the area. started [...] Now with palpitations. Will refer to his speck dyer for bradycardia. Assessment & Plan (03/22/2023 9:16 AM EST): Sinus bradycardia and asymptomatic. Pt states he always has slow heart rate Pt repots heart rate in 40s recorded with home BP monitor with symptoms of dizziness recorded at home. Now with palpitations. Will refer to his speck dyer for bradycardia. Assessment & Plan (12/06/2022 8:54 AM EDT): Sinus bradycardia and asymptomatic. Pt states he always has slow heart rate Pt repots heart rate in 40s recorded with home BP monitor with symptoms of dizziness recorded at home. Now with palpitations. Will refer to his speck dyer for bradycardia. Assessment & Plan (10/11/2022 9:58 AM EDT): Sinus bradycardia and asymptomatic. Pt states he always has slow heart rate Pt repots heart rate in 40s recorded with home BP monitor with symptoms of dizziness recorded at home. Now with palpitations. Will refer to his speck dyer for bradycardia. Generalized abdominal pain 06/25/2021 Overview [...] for GI. Insurance no longer accepted at [facility]. -EGD scheduled for December 2021. -10/19/24 IMPRESSION: Normal 4-hour solid food gastric emptying study. -note from Aida Orozco 10/21/24 reveiwed [place] gastric emptying study [place] barium swallow H pylori Ag Stool ordered -note from Aida Orozco 12/04/24 reviewed, Kaushik jackson -esophageal barium swallow 01/13/25 ordered by GI, [...] for GI. Insurance no longer accepted at [facility]. -EGD scheduled for December 2021. Assessment & [...] for GI. Insurance no longer accepted at [facility]. -EGD scheduled for December 2021. Assessment & [...] for GI. Insurance no longer accepted at [facility]. -EGD scheduled for December 2021. Assessment & [...] for GI. Insurance no longer accepted at [facility]. -EGD scheduled for December 2021. History of non-ST elevation myocardial infarctio n (NSTEMI) 06/25/2021 Overview (10/15/2024): Hx NSTE CT 09/2017. See CAD for plan. Assessment & Plan (05/20/2024 4:29 PM EST): Hx NSTE CT 09/2017 -continue oscar -Stress test without evidence of ischemia 04/08/18 -he held statin and ASA due to GI upset -trial of restarting statin 01/[address] on 05/08/24 showed Coronary artery atherosclerosis. Pt wants to get reestablished with cardiology. -referral sent 05/20/24 Assessment & Plan (03/22/2023 9:17 AM EST): Hx NSTE CT 09/2017 -continue oscar -Stress test without evidence of ischemia 04/08/18 -he held statin and ASA due to GI upset -trial of restarting statin 01/2019 Assessment & Plan (12/06/2022 8:55 AM EDT): Hx NSTE CT 09/2017 -continue oscar -Stress test without evidence of ischemia 04/08/18 -he held statin and ASA due to GI upset -trial of restarting statin 01/2019 Assessment & Plan (10/11/2022 9:57 AM EDT): Hx NSTE CT 09/2017 -continue oscar -Stress test without evidence of ischemia 04/08/18 -he held statin and ASA due to GI upset -trial of restarting statin 01/2019 Seasonal allergies 06/25/2021 Gender 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 10/03/2018 Overview (03/26/2024): Pt identifies as male and is changed his name in [place] October 2020. -He restarted testosterone 08/2020 -S/p chest reconstruction 10/2018 -Testosterone was 654 on 10/2022 Lab Results Component Value Date TESTTOTAL 1641 (A) 03/18/2024 HGB 16.2 (H) 03/18/2024 HGB 15.8 10/18/2022 HCT 47.3 (H) 03/18/2024 Goal testosterone levels 350-700ng/dl. Assessment & Plan (03/17/2024 6:12 AM EST): Pt identifies as male and is changing his name in [place] October 2020. He restarted testosterone 08/2020 S/p chest reconstruction 10/2018 Pt would like to switch small needle to subcutaneous instead. 25 gague needles sent 12/06/2022 Testosterone was 654 on 10/2022. Assessment & Plan (03/22/2023 9:16 AM EST): Pt identifies as male and is changing his name in [place] October 2020. He restarted testosterone 08/2020 S/p chest reconstruction 10/2018 Pt would like to switch small needle to subcutaneous instead. 25 gague needles sent 12/06/2022 Testosterone was 654 on 10/2022. Assessment & Plan (12/06/2022 11:18 AM EDT): Pt identifies as male and is changing his name in [place] October 2020. He restarted testosterone 08/2020 S/p chest reconstruction 10/2018 Pt would like to switch small needle to subcutaneous instead. 25 gague needles sent 12/06/2022 Testosterone was 654 on 10/2022. Assessment & Plan (10/11/2022 9:59 AM EDT): Pt identifies as male and is changing his name in [place] October 2020. He restarted testosterone 08/2020 S/p chest reconstruction 10/[address] scan, lung 10/04/2017 Overview (05/20/2024): -Ct scan in [place] ER on 12/25/2017 showed multiple indeterminate nodules, [...] 11/15/23 and NO SHOW. Pt can call [phone] to schedule mariely. number given to call 03/16/24 -CT 05/08/24 No acute intrathoracic findings. Calcified granulomas present bilaterally. No suspicious pulmonary nodule identified. Air-fluid level present within the midthoracic esophagus can be associated with gastroesophageal reflux disease and esophageal dysmotility. Coronary artery atherosclerosis. Assessment & Plan (05/20/2024 4:05 PM EST): -Ct scan in [place] ER on 12/25/2017 showed multiple indeterminate nodules, [...] 11/15/23 and NO SHOW. Pt can call [phone] to schedule mariely. number given to call 03/16/24 -CT 05/08/24 No acute intrathoracic findings. Calcified granulomas present bilaterally. No suspicious pulmonary nodule identified. Air-fluid level present within the midthoracic esophagus can be associated with gastroesophageal reflux disease and esophageal dysmotility. Coronary artery atherosclerosis. Assessment & Plan (03/17/2024 6:13 AM EST): -Ct scan in [place] ER on 12/25/2017 showed multiple indeterminate nodules, [...] 11/15/23 and NO SHOW. Pt can call [phone] to schedule mariely. number given to call 03/16/24 Assessment & Plan (03/22/2023 9:16 AM EST): -Ct scan in [place] ER on 12/25/2017 showed multiple indeterminate nodules, largest was solid and measured 2mm. -Given that the Pt has a tobacco Hx and quit in 2018 we referrred to pulmonology that was likely distrupted by the pandemic. -Will ordered repeat CT of chest to follow the nodles. Assessment & Plan (12/06/2022 10:18 AM EDT): -Ct scan in [place] ER on 12/25/2017 showed multiple indeterminate nodules, [...] information should questions or concerns arise. Plan: Hiramarielleaparna will continue to engage in effective coping mechanisms that has work for they, also will try to implement depressive coping skills. They will be referred for OP services and referral to [facility] Psychopharmacology clinic. Provided Crisis contact number [...] organization. Date Type Department Care Team Description 02/26/2025 Telephone [facility] MEDICINE [address] [place] [address] Emilie Davis MD 02/25/2025 1:40 PM EDT Office Visit [facility] WALK[facility] [address] [place] [address] Ann-Marie Muhammad MD Pain of left calf (Primary Dx); Pancreatic adenocarcinoma (CMS/HCC) (HCC) 02/25/2025 Results Follow-Up [facility] [address] [place] [address] Ann-Marie Muhammad MD Lower Extremity Venous Duplex 02/25/2025 Orders Only [facility] [address] [place] [address] Ann-Marie Muhammad MD 02/25/2025 Travel 02/24/2025 Orders Only [place] [facility] [address] [place], [place] [phone] ProviderSammy MD Pancreatic mass (Primary Dx) 02/23/2025 Patient Outreach [address] [address] Emilie Davis MD Pre-visit Planning (Pre-visit planning - LVM ) 02/22/2025 Patient Outreach [facility] [address] [place], [place] [phone] Emilie Davis MD Transition Of Care (Tcm) (Unscheduled ) 02/22/[address] [address] Emilie Davis MD Hospital Follow-up 02/19/2025 Orders Only [facility] Information Management [address] [place] [address] Sammy Dowd MD 02/19/[address] [phone] Emilie Davis MD 02/18/2025 Orders Only GENERIC EXTERNAL DATA DEPARTMENT Provider, Generic External Data 02/16/[address] [address] Medina Lewis, RONALD 02/09/2025 Orders Only [facility] External Provider, [facility] Chronic bilateral low back pain, unspecified whether sciatica present (Primary Dx) 02/05/2025 Orders Only [address] [address] Emilie Davis MD Depression, unspecified depression type (Primary Dx) 02/04/[address] [address] Emilie Davis MD Care Coordination; Referral 02/04/[address] [phone] Emilie Davis MD Referral; Care Coordination 02/02/2025 Orders Only [address] [address] Kayla Sellers, RONALD 02/01/2025 Orders Only GENERIC EXTERNAL DATA DEPARTMENT Provider, Generic External Data 01/27/2025 11:00 AM EDT Clinical Support [address] [address] Medina Lewis, RN On pre-exposure prophylaxis for HIV (Primary Dx) 01/27/2025 Orders Only [address] [address] Emilie Davis MD 01/27/2025 Travel 01/21/2025 Travel 01/19/2025 Orders Only [facility] External Provider, [facility] Pancreatic mass (Primary Dx) 01/15/2025 Orders Only GENERIC EXTERNAL DATA DEPARTMENT Provider, Generic External Data 01/14/2025 Orders Only [facility] External Provider, [facility] Generalized abdominal pain (Primary Dx) 01/08/2025 Orders Only GENERIC EXTERNAL DATA DEPARTMENT Provider, Generic External Data 01/07/[address] [address] Emilie Davis MD Call Back Request; Injectable PrEP Communication 01/04/2025 Patient Outreach [address] [address] Emilie Davis MD Transition Of Care (Tcm) (HDF unscheduled) 01/04/[address] [address] Emilie Davis MD Nurse Triage 01/04/[address] [address] Emilie Davis MD Hospital Follow-up; No Show (Pt no show for hdf ) 12/29/2024 Orders Only GENERIC EXTERNAL DATA DEPARTMENT Provider, Generic External Data from Last 3 Months Immunizations Immunization Administration [...] 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 Not on file [...] 9:30 AM EDT Office Visit [facility] MEDICINE [address] [place] [address] Emilie Davis MD [address] [place] [address] 03/24/2025 11:00 AM EST Clinical Support [facility] MED[facility] [address] [place] [address] Medina Lewis, RN [address] [place] [address] 06/04/2025 3:00 PM EST Office Visit [facility] OPTOMETRY [address] [place] [phone] Merissa Donis, OD [address] [place] [address] Health Maintenance Due Date Last Done Comments [...] 01/27/2025 11:53 AM EDT CHLAMYDIA/GONORRHEA THROAT SWAB (UT DP) Routine 01/27/2025 MR ABDOMEN W AND WO [...] AUTO DIFFERENTIAL Routine 12/29/2024 10:00 AM EDT LIPID PANEL, STANDARD Routine 07/24/2024 1:36 PM EDT HPV MRNA E6/E7 REFLEX TO HPV 16, 18/45 Routine 03/22/2023 11:30 AM EST PAP SMEAR Routine 03/22/2023 11:30 AM EST HM COLONOSCOPY Routine 01/30/2018 from Last 3 Months or Most Recently Relevant to Health Maintenance Results * Lower Extremity Venous Duplex (02/25/2025 3:27 PM EDT) 02/25/2025 3:27 PM EDT Narrative [facility] IMAGING - 02/25/2025 3:48 PM EDT [place] [address] Ultrasound Report Signed Patient: Harriet Valdez MR#: [id number] : 1970 Acct:[id number] Age/Sex: 55 / F ADM Date: 02/25/25 Loc: HO.US Attending Dr: Ann-Marie Muhammad MD Ordering Physician: Ann-Marie Muhammad MD Date of Service: 02/25/25 Procedure(s): US venous duplex LE LT Accession Number(s): [id number] cc: Emilie Davis MD; Ann-Marie Muhammad MD [...] 02/25/25 1546 DD/ 1527 TD/TT: 02/25/25 1537 Restaurant Shift Leader: Procedure Note Donotuseinterpreter, Image - 02/25/2025 [place] [address] Ultrasound Report Signed Patient: Harriet ValdezMR#: [id number] : 1970Acct:[id number] Age/Sex: 55 / FADM Date: 02/25/25 Loc: .US Attending Dr: Ann-Marie Muhammad MD Ordering Physician: Ann-Marie Muhammad MD Date of Service: 02/25/25 Procedure(s): US venous duplex LE LT Accession Number(s): [id number] cc: Emilie Davis MD; Ann-Marie Muhammad MD [...] 02/25/25 1546 DD/ 1527 TD/TT: 02/25/25 1537 Restaurant Shift Leader: Ann-Marie Muhammad MD CV VASCULAR PROCEDURES Final Result Performing Organization Address City/State/[facility] Co de Phone Number [facility] [address] [place] [phone] * XR Tibia Fibula 2 Views Left (02/25/2025 3:14 PM EDT) Anatomical Region Laterality Modality Lower Extremities, Lower Leg Left Rad iographic Imaging 02/25/2025 3:14 PM EDT Narrative 02/25/2025 3:28 PM EDT [address] [address] XRay Report Signed Patient: Harriet Valdez MR#: [id number] : 1970 Acct:[id number] Age/Sex: 55 / F ADM Date: 02/25/25 Loc: . Attending Dr: Ann-Marie Muhammad MD Ordering Physician: Ann-Marie Muhammad MD Date of Service: 02/25/25 Procedure(s): XR tibia fibula LT 2V Accession Number(s): [id number] cc: Emilie Davis MD; Ann-Marie Muhammad MD [...] Manish Deras MD 02/25/2025 03:25 PM EDT RP Dictated By: Manish Deras MD Signed By: <Electronically signed by Manish Deras MD in OV> 02/25/25 1525 DD/ 13 TD/TT: 02/25/251520 Restaurant Shift Leader: Procedure Note Sundayestellafabiennechalo, Image - 02/25/2025 [place] [address] XRay Report Signed Patient: Harriet ValdezMR#: [id number] : 1970Acct:[id number] Age/Sex: 55 / FADM Date: 02/25/25 Loc: . Attending Dr: Ann-Marie Muhammad MD Ordering Physician: Ann-Marie Muhammad MD Date of Service: 02/25/25 Procedure(s): XR tibia fibula LT 2V Accession Number(s): [id number] cc: Emilie Davis MD; AnnM-arie Muhammad MD Reason for Exam: acute left [...] Deras MD in OV> 02/25/25 1525 DD/ TD/TT: 02/25/251520 Restaurant Shift Leader: Ann-Marie Muhammad MD IMG XR PROCEDURES Final [...] PM EDT Narrative 02/18/2025 9:23 PM EDT [place] [address] CT Scan Report Signed Patient: Harriet Valdez MR#: [id number] : 1970 Acct:[id number] Age/Sex: 55 / F ADM Date: 02/18/25 Loc: HO.ED Attending Dr: Ordering Physician: Bradford Rojas Date of Service: 02/18/25 Procedure(s): CT abdomen pelvis w IV con Accession Number(s): [id number] cc: Emilie Davis MD; Bradford Rojas Report Number: [id number]: Total DLP = 284.00 mGy-cm Reason for [...] in OV> 02/18/252121 DD/ 21 TD/TT: 02/18/252121 Restaurant Shift Leader: Procedure Note Donotuseinterpreter, Image - 02/18/[address] [place] [address] [address] Scan Report Signed Patient: Harriet Valdez#: [id number] : 1970Acct:[id number] Age/Sex: 55 / FADM Date: 02/18/25 Loc: .ED Attending Dr: Ordering Physician: Bradford Rojas Date of Service: 02/18/25 Procedure(s): CT abdomen pelvis w IV con Accession Number(s): [id number] cc: Emilie Davis MD; Bradford Rojas Report Number: [id number]: Total DLP = 284.00 mGy-cm Reason for [...] in OV> 02/18/252121 DD/ 21 TD/TT: 02/18/252121 Restaurant Shift Leader: us [facility] External Provider IMG CT PROCEDURES Edited Result - Final * Lactic Acid (02/18/2025 8:25 PM EDT) Lactic Acid 0.9 0.5 - 2.0 mmol/L [facility] 02/18/2025 8:25 PM EDT 02/18/2025 8:28 PM EDT us Generic External Data Provider LAB BLOOD ORDERAB LES Final Result [facility] [address] [place] [address] [phone] * (ABNORMAL) CBC auto differential (02/18/2025 3:28 PM EDT) Only the most recent of4 resultswithin the time period is included. White Blood Count 16.6(H) 4.8 - 10.8 X10*3/uL [facility] Red Blood Count 5.08 4.20 - 5.50 X10*6/uL [facility] Hemoglobin 14.7 12.0 - 16.0 g/dl [facility] Hematocrit 44.9 37.0 - 47.0 % [facility] Mean Corpuscular Volume 88.4 80.0 - 98.0 fL [facility] Mean Corpuscular Hemoglobin 28.9 27.0 - 33.0 pg [facility] Mean Corpuscular HGB Conc 32.7 31.0 - 35.0 g/dl [facility] Red Cell Distribution Width 14.3 11.0 - 16.0 % [facility] Platelet Count 364 160 - 400 X10*3/uL [facility] Mean Platelet Volume 8.9(L) 9.4 - 12.3 fL [facility] Neutrophils Percent Auto 80.6(H) 45 - 73 % [facility] Imm Gran Pct Auto 0.4 0.0 - 0.4 % [facility] Lymphocytes Percent Auto 13.1(L) 20 - 40 % [facility] Monocytes Percent Auto 5.5 2 - 11 % [facility] Eosinophils Percent Auto 0.2 0 - 4 % [facility] Basophils Percent Auto 0.2 0 - 2 % [facility] NRBC Pct Auto 0.0 0.0 - 0.2 /100WBC [facility] Neutrophils Absolute Auto 13.3(H) 2.0 - 8.3 x10*3/uL [facility] Imm Gran Abs Auto 0.07(H) 0.00 - 0.03 X10*3/uL [facility] Lymphocytes Absolute Auto 2.2 1.2 - 4.9 X10*3/uL [facility] Monocytes Absolute Auto 0.9 0.1 - 1.2 X10*3/uL [facility] Eosinophils Absolute Auto 0.0 0.0 - 0.4 X10*3/uL [facility] Basophils Absolute Auto 0.0 0.0 - 0.2 X10*3/uL [facility] NRBC Abs Auto 0.000 0.0 - 0.012 X10*3/uL [facility] 02/18/2025 3:28 PM EDT 02/18/2025 3:28 PM EDT Generic External Data Provider LAB BLOOD ORDERAB LES Final Result Performing Organization Address City/[facility]/ZIP Co de Phone Number [facility] [address] [place] [phone] * Lipase (02/18/2025 3:28 PM EDT) Only the most recent of3 resultswithin the time period is included. Lipase 40 8 - 78 U/L [facility] 02/18/2025 3:28 PM EDT 02/18/2025 3:28 PM EDT Generic External Data Provider LAB BLOOD ORDERAB LES Final Result Performing Organization Address City/[facility]/ZIP Co de Phone Number [facility] [address] [place] [phone] * (ABNORMAL) Lactate Dehydrogenase (LD) (02/18/2025 3:28 PM EDT) Lactate Dehydrogenase 743(H) 122 - 220 U/L [facility] 02/18/2025 3:28 PM EDT 02/18/2025 3:28 PM EDT us Generic External Data Provider LAB BLOOD ORDERAB LES Final Result Performing Organization Address [facility] de Phone Number [facility] [address] [place] [phone] * (ABNORMAL) Amylase (02/18/2025 3:28 PM EDT) Only the most recent of2 resultswithin the time period is included. Amylase 113(H) 28 - 100 U/L [facility] 02/18/2025 3:28 PM EDT 02/18/2025 3:28 PM EDT Generic External Data Provider LAB BLOOD ORDERAB LES Final Result Performing Organization Address [facility] de Phone Number [facility] [address] [place] [phone] * EGD (02/18/2025 2:59 PM EDT) Anatomical Region Laterality Modality Endoscopy us Historical Provider ENDOSCOPY PROCEDURE ORDER TATUM Final Result * MR Lumbar Spine w/o Contrast (02/09/2025 6:20 PM EDT) Anatomical Region Laterality Modality Spine, L-spine Magnetic Resonan ce 02/09/2025 6:20 PM EDT Narrative 02/10/2025 7:18 AM EDT [address] [address] Magnetic Resonance Report Signed Patient: Harriet Valdez MR#: [id number] : 1970 Acct:[id number] Age/Sex: 54 / F ADM Date: 02/09/25 Loc: HO.MRI Attending Dr: Nakul Velasco MD Ordering Physician: Nakul Velasco MD Date of Service: 02/09/25 Procedure(s): MR lumbar spine wo con Accession Number(s): [id number] cc: Emilie Davis MD; Nakul Velasco MD [...] MD Signed By: <Electronically signed by Eric Ierne MD in OV> 02/10/25 0715 DD/ 182 TD/TT: 02/09/25 1845 Restaurant Shift Leader: Procedure Note Donotuseinterpreter, Image - 02/10/2025 [place] [address] Magnetic Resonance Report Signed Patient: Harriet Valdez#: [id number] : 1970Acct:[id number] Age/Sex: 54 / FADM Date: 02/09/25 Loc: HO.MRI Attending Dr: Nakul Velasco MD Ordering Physician: Nakul Velasco MD Date of Service: 02/09/25 Procedure(s): MR lumbar spine wo con Accession Number(s): [id number] cc: Emilie Davis MD; Nakul Velasco MD [...] 02/10/25 0715 DD/ 1820 TD/TT: 02/09/25 1845 Restaurant Shift Leader: [facility] External Provider IMG MRI PROCEDURES Final Result * (ABNORMAL) CA 19-9 (02/01/2025 11:57 AM EDT) CA 19-9 671(A) <34 U/mL [facility] Comment:This test was perfor med using the Siemenschemiluminescent method. Values obtained fromdifferent assay methods cannot be usedinterchangeably. CA 19-9 levels, regardless ofvalue, should not be interpreted as absoluteevidence of the presence or absence of disease.THIS TEST WAS PERFORMED AT:[facility] [address] [phone] MALDONADO MD 02/01/2025 11:5 7 AM EDT 02/01/2025 11:57 AM EDT us Generic External Data Provider LAB BLOOD ORDERAB LES Final Result Performing Organization Address City/[facility]/ZIP Co de Phone Number [facility] [address] [place] [phone] * HIV-1 RNA, Quantitative, Real-Time PCR (02/01/2025 11:57 AM EDT) Only the most recent of2 resultswithin the time period is included. HIV RNA PCR Qn Copies NOT DETECTED NOT DETECTED copies/mL [facility] HIV RNA PCR Qn Log Copies NOT DETECTED NOT DETECTED [facility] Comment:Result Units: Log co pies/mLThis test was performed using Real-Time Polymerase ChainReaction.Reportable Range: 20 copies/mL to 10,000,000 copies/mL(1.30 log copies/mL to 7.00 log copies/mL).THIS TEST WAS PERFORMED AT:[facility] [address] [id number] MALDONADO MD 02/01/2025 11:5 7 AM EDT 02/01/2025 11:57 AM EDT us Emilie Davis MD LAB BLOOD ORDERABLES Final Result Performing Organization Address City/[facility]/ZIP Co de Phone Number [facility] [address] [place] [phone] * Homocysteine (02/01/2025 11:57 AM EDT) Homocysteine 7.4 < or = 13.4 umol/L [facility] Comment:Homocysteine is incr eased by functional deficiency offolate or vitamin B12. Testing for methylmalonic aciddifferentiates between these deficiencies. Other causesof increased homocysteine include renal failure, folateantagonists such as methotrexate and phenytoin, andexposure to nitrous oxide.Salvador Stevens, et al., Caitlyn Industrial Relations Director Med. 1999;131(5):331-9.THIS TEST WAS PERFORMED AT:[facility] [place] [phone] MALDONADO MD 02/01/2025 11:5 7 AM EDT 02/01/2025 11:57 AM EDT us Generic External Data Provider LAB BLOOD ORDERAB LES Final Result [facility] [address] [place] [phone] * POCT Rapid HIV Screening (01/27/2025 1:50 PM EDT) Blood 01/27/2025 1:50 PM EDT Narrative Medina Lewis, RONALD - 01/27/2025 1:50 PM EDT negative Emilie Davis MD POINT OF CARE TEST ENTER/E DIT ORDERABLES Final Result * (ABNORMAL) Comprehensive Metabolic Panel (01/27/2025 11:53 AM EDT) Only the most recent of2 resultswithin the time period is included. Sodium 143 135 - 145 mmol/L [facility] Potassium 3.8 3.3 - 5.1 mmol/L [facility] Chloride 108 96 - 108 mmol/L [facility] Carbon Dioxide 30(H) 22 - 29 mmol/L [facility] Anion Gap 9(L) 12 - 20 [facility] Urea Nitrogen (BUN) 13 9 - 16 mg/dL [facility] Creatinine, Serum 0.79 0.5 - 1.4 mg/dL [facility] Estimated Glomerular Filt Rate >60 [facility] Comment:Chronic Kidney Disea se: Estimated GFR < 60 mL/min/1.32s4Cesqii Kidney Disease: Estimated GFR < 15 mL/min/1.73m2 Glucose 78 60 - 115 mg/dL [facility] Calcium 9.1 8.4 - 10.2 mg/dL [facility] Bilirubin, Total 0.2 0.0 - 1.0 mg/dL [facility] Aspartate Amino Transferase 22 5 - 31 U/L [facility] Alanine Aminotransferase 18 0 - 31 U/L [facility] Total Protein 7.2 6.5 - 8.0 g/dL [facility] Albumin Level 4.2 3.5 - 5.0 g/dL [facility] Alkaline Phosphatase 79 39 - 117 U/L [facility] 01/27/2025 11:5 3 AM EDT 01/27/2025 1:16 PM EDT Emilie Davis MD LAB BLOOD ORDERABLES Final Result [facility] [address] [place] [phone] * Chlamydia/Gonorrhea Throat Swab ([facility]) (01/27/2025) Chlamydia Throat Swab Negative Gonorrhea Throat Swab Negative Swab 01/27/2025 [facility] Provider LAB MICROBIOLOGY - GENERA L ORDERABLES Final Result * MR Abdomen w/ and w/o Contrast (01/20/2025 4:03 PM EDT) Anatomical Region Laterality Modality Abdomen Magnetic Resonan ce 01/20/2025 4:03 PM EDT Narrative 01/20/2025 4:05 PM EDT [address] [address] Magnetic Resonance Report Signed with Addenda Patient: Harriet Valdez MR#: [id number] : 1970 Acct:[id number] Age/Sex: 54 / F ADM Date: 01/19/25 Loc: HO.MRI Attending Dr: Cha Mills MD Ordering Physician: Cha Mills MD Date of Service: 01/19/25 Procedure(s): MR abdomen wo/w con Accession Number(s): [id number] cc: Emilie Davis MD; Cha Mills MD [...] bile duct dilatation, concerning for malignancy. Recommend contact center agent consultation, ERCP and tissue sampling. 2. Subcentimeter right hepatic hemangioma and cyst. 3. Diverticulosis coli. This document has been electronically signed by: Yumiko Jones MD on 01/20/2025 16:03:51 Dictated By: Yumiko Jones MD Signed By: <Electronically signed by Yumiko Jones MD in OV> 01/20/25 1605 DD/ 1603 TD/TT: 01/20/25 1603 Restaurant Shift Leader: Procedure Note Donotuseinterpreter, Image - 01/20/2025 [place] [address] Magnetic Resonance Report Signed with Addenda Patient: Harriet Valdez#: [id number] : 1970Acct:[id number] Age/Sex: 54 / FADM Date: 01/19/25 Loc: HO.MRI Attending Dr: Cha Mills MD Ordering Physician: Cha Mills MD Date of Service: 01/19/25 Procedure(s): MR abdomen wo/w con Accession Number(s): [id number] cc: Emilie Davis MD; Cha Mills MD [...] bile duct dilatation, concerning for malignancy. Recommend contact center agent consultation, ERCP and tissue sampling. 2. Subcentimeter right hepatic hemangioma and cyst. 3. Diverticulosis coli. This document has been electronically signed by: Yumiko Jones MD on 01/20/2025 16:03:51 Dictated By: Yumiko Jones MD Signed By: <Electronically signed by Yumiko Jones MD in OV> 01/20/25 160 DD/ 02 TD/TT: 01/20/251602 Restaurant Shift Leader: [facility] External Provider IMG MRI PROCEDURES Edited Result - Final * Hematoxylin and Eosin Stain (01/15/2025 3:32 PM EDT) 01/15/2025 3:32 PM EDT 01/18/2025 7:08 AM EDT [facility] - 01/19/2025 12:19 PM EDT ----- ------- Name: Trace RobersonHarriet Age/Sex: 54/F : 1970 Unit#: [id number] Attend Dr: Mary Alice Mayorga MD Re01/15/25 Status: [facility] Location: [facility] Disch: ----- ------- SPEC : [id number] RECD: 01/18/25 STATUS: JANIE DUNLAP NUM: [id number] AMBREEN: 01/15/25153 [facility] DR: Mary Alice Mayorga MD ENTERED: [...] developed and their performance characteristics determined by [facility]. They have not been cleared or approved by the U.S. Food and Drug Administration (FDA). However, the FDA CONTINUED ON NEXT PAGE ----- ------- Name: Harriet Valdez Age/Sex: 54/F : 1970 Unit#: [id number] Attend Dr: Mary Alice Mayorga MD Re01/15/25 Status: [facility] Location: [facility] Disch: ----- ------- SPEC : [id number] RECD: 01/18/25 STATUS: JANIE DUNLAP NUM: [id number] AMBREEN: 01/15/[address] [facility] DR: Mary Alice Mayorga MD ENTERED: [...] laboratory testing. Copies To: Emilie Davis MD [address] [address] Mary Alice Mayorga MD [facility] [address] [place] [address] [phone] ----- ------- Signed (signature on file) Yara Dodson MD 01/19/25 1219 ----- ------- END OF REPORT Generic External Data Provider LAB BLOOD ORDERAB LES Final Result Performing Organization Address [facility] de Phone Number [facility] [address] [place] [phone] * Prothrombin Time-INR (01/14/2025 3:40 PM EDT) Prothrombin Time 11.7 10.9 - 12.4 SEC [facility] INTERNATIONAL NORM RATIO 1.0 0.9 - 1.1 [facility] Comment:INTERNATIONAL NORMAL IZED RATIO [...] prosthetic heart valves: 2.5 - 3.5 01/14/2025 3:4 0 PM EDT 01/14/2025 3:52 PM EDT Generic External Data Provider LAB BLOOD ORDERAB LES Final Result Performing Organization Address [facility] de Phone Number [facility] [address] [place] [phone] * FL Esophagus Barium Swallow (01/14/2025 9:40 AM EDT) Anatomical Region Laterality Modality Head, Neck Radiographic Aurora ging 01/14/2025 9:40 AM EDT Narrative 01/14/2025 11:23 AM EDT [address] [address] Fluoroscopy Report Signed Patient: Trace ScottHarriet do MR#: [id number] : 1970 Acct:[id number] Age/Sex: 54 / F ADM Date: 01/14/25 Loc: HO.XRAY Attending Dr: Aida ASH Ordering Physician: Aida Orozco Date of Service: 01/14/25 Procedure(s): FL barium swallow Accession Number(s): [id number] cc: Emilie Davis MD; Aida Orozco Reason [...] 01/14/25 1120 DD/ 0940 TD/TT: 01/14/25 0955 Restaurant Shift Leader: MADINA Procedure Note Donotuseinterpreter, Image - 01/14/[address] [address] Fluoroscopy Report Signed Patient: Harriet ValdezMR#: [id number] : 1970Acct:[id number] Age/Sex: 54 / FADM Date: 01/14/25 Loc: HORjXRANASTASIIA Attending Dr: Aida ASH Ordering Physician: Aida Orozco Date of Service: 01/14/25 Procedure(s): FL barium swallow Accession Number(s): [id number] cc: Emilie Davis MD; Aida Orozco Reason [...] 01/14/25 1120 DD/ 0940 TD/TT: 01/14/25 0955 Restaurant Shift Leader: MADINA [facility] External Provider IMG FLU OROSCOPY PROCEDURES Final Result * XR Abdomen 2 View minimum (01/08/2025 10:50 AM EDT) Anatomical Region Laterality Modality Abdomen Radiographic Aurora ging 01/08/2025 10:5 0 AM EDT Narrative 01/08/2025 12:26 PM EDT [address] [address] XRay Report Signed Patient: Harriet Valdez MR#: [id number] : 1970 Acct:[id number] Age/Sex: 54 / F ADM Date: 01/08/25 Loc: HO.ABIGAIL Attending Dr: Aida LEMOS-Cristina Ordering Physician: Aida Orozco Date of Service: 01/08/25 Procedure(s): XR abdomen min 2V Accession Number(s): [id number] cc: Emilie Davis MD; Aida Orozco EXAMINATION: [...] 01/08/25 1223 DD/ 1050 TD/TT: 01/08/25 1057 Restaurant Shift Leader: Procedure Note Donotuseinterpreter, Image - 01/08/[address] [address] XRay Report Signed Patient: Harriet ValdezMR#: [id number] : 1970Acct:[id number] Age/Sex: 54 / FADM Date: 01/08/25 Loc: HO.XRAY Attending Dr: Aida ASH Ordering Physician: Aida Orozco Date of Service: 01/08/25 Procedure(s): XR abdomen min 2V Accession Number(s): [id number] cc: Emilie Davis MD; Aida Orozco EXAMINATION: [...] 01/08/25 1223 DD/ 1050 TD/TT: 01/08/25 1057 Restaurant Shift Leader: [facility] External Provider IMG XR PROCEDURES Edited Result - Final * (ABNORMAL) VITAMIN D 25-OH (D2 AND D3) (01/08/2025 10:47 AM EDT) Vitamin D, 25-OH, D2 <4 ng/mL [facility] Comment:This test was develo ped and its analytical performancecharacteristics have been determined by [facility] [place], [place]. It hasnot been cleared or approved by the U.S. Food and DrugAdministration. This assay has been validated pursuantto the CLIA regulations and is used for clinicalpurposes.THIS TEST WAS PERFORMED AT:[facility]VDRUDGQEZ[address] [place] [address]SQRSJNLMARCI ESTEVEZ MD,PHD Vitamin D, 25-OH, D3 28 ng/mL [facility] Comment:This test was sinan turner and its analytical performancecharacteristics have been determined by [facility] [place], [place]. It hasnot been cleared or approved by the U.S. Food and DrugAdministration. This assay has been validated pursuantto the CLIA regulations and is used for clinicalpurposes. Vitamin D, 25-OH, Total 28(A) 30 - 100 ng/mL [facility] Comment:Vitamin D, 25-Hydrox y [...] = 30 ng/mL.For additional information, please refer tohttp://education.[employer]/faq/ZJT665(This link is being provided for informational/educational purposes only.) 01/08/2025 10:4 7 AM EDT 01/08/2025 10:47 AM EDT us Generic External Data Provider LAB BLOOD ORDERAB LES Final Result [facility] [address] [place] [phone] * Sed Rate by Modified Marcela (01/08/2025 10:47 AM EDT) Erythrocyte Sedimentation Rate 9 0 - 20 MM/HR [facility] Comment:Patients with polycy themia and many hemoglobin abnormalitiesmay have depressed sed rates whereas patients with anemiamay have elevated sed rates. 01/08/2025 10:4 7 AM EDT 01/08/2025 10:47 AM EDT us Generic External Data Provider LAB BLOOD ORDERAB LES Final Result Performing Organization Address City/[facility]/ZIP Co de Phone Number [facility] [address] [place] [phone] * C-reactive Protein (01/08/2025 10:47 AM EDT) Pathologist [facility] C Reactive Protein <0.10 < or = 0.50 mg/dL [facility] 01/08/2025 10:4 7 AM EDT 01/08/2025 10:47 AM EDT [facility] External Data Provider LAB BLOOD ORDERAB LES Final Result Performing Organization Address [facility] Co de Phone Number [facility] [address] [place] [phone] * (ABNORMAL) Drug Monitoring, Panel 1, Screen, Urine (12/29/2024 1:09 PM EDT) Pathologist [facility] Opiate Screen Urine Not Detected Not Detect [facility] Comment:Opiate cut-off is 30 0 ng/mL.Positive results are unconfirmed and should not be used fornon-medical purposes. Barbiturates, Urine Not Detected Not Detect [facility] Comment:Barbiturate cut-off is 200 ng/mL.Positive results are unconfirmed and should not be used fornon-medical purposes. Phencyclidine Screen Urine Not Detected Not Detect [facility] Comment:Phencyclidine cut-of f is 25 ng/mL.Positive results are unconfirmed and should not be used fornon-medical purposes. Amphetamine Screen Urine Not Detected Not Detect [facility] Comment:Amphetamine cut-off is 1000 ng/mL.Positive results are unconfirmed and should not be used fornon-medical purposes. Benzodiazepines Screen Urine Not Detected Not Detect [facility] Comment:Benzodiazepine cut-o ff is 200 ng/mL.Positive results are unconfirmed and should not be used fornon-medical purposes. Cocaine Screen Urine Not Detected Not Detect [facility] Comment:Cocaine cut-off is 3 00 ng/mL.Positive results are unconfirmed and should not be used fornon-medical purposes. Cannabinoid Screen Urine POSITIVE(A) Not Detect [facility] Comment:Cannabinoid cut-off is 50 ng/mL.Positive results are unconfirmed and should not be used fornon-medical purposes. Methadone Screen, Urine Not Detected Not Detect ng/mL [facility] Comment:Methadone cut-off is 300 ng/mL.Positive results are unconfirmed and should not be used fornon-medical purposes. FENTANYL URINE Not Detected Not Detect [facility] Comment:Fentanyl cut-off is 1 ng/mL.Positive results are unconfirmed and should not be used fornon-medical purposes. Oxycodone Urine Screen Not Detected Not Detect ng/mL [facility] Comment:Oxycodone cut-off is 100 ng/mL.Positive results are unconfirmed and should not be used fornon-medical purposes. Buprenorphine Screen Not Detected Not Detect ng/mL [facility] Comment:Buprenorphine cut-of f is 5 ng/mL.Positive results are unconfirmed and should not be used fornon-medical purposes. 12/29/2024 1:09 PM EDT 12/29/2024 1:16 PM EDT us Generic External Data Provider LAB URINE ORDERAB LES Final Result [facility] [address] [place] [phone] * Urinalysis w/reflex microscopic (12/29/2024 1:09 PM EDT) Color Urine Yellow [facility] Appearance Urine Clear [facility] PH 8.0 5.0 - 9.0 [facility] Glucose Urine UA Negative Negative mg/dL [facility] Urine Blood Negative Negative [facility] Specific [place] - Urine 1.015 1.005 - 1.025 [facility] Urine Protein Negative Neg-Trace mg/dL [facility] Urine Ketones Negative Negative mg/dL [facility] Nitrite Urine Negative Negative [facility] Leukocyte Esterase Urine Negative Negative [facility] 12/29/2024 1:09 PM EDT 12/29/2024 1:16 PM EDT Narrative [facility] - 12/29/2024 1:22 PM EDT Urine, Clean Catch Generic External Data Provider LAB URINE ORDERAB LES Final Result Performing Organization Address [facility] de Phone Number [facility] [address] [place] [phone] * Hepatic Function Panel (12/29/2024 10:00 AM EDT) Bilirubin, Total 0.4 0.0 - 1.0 mg/dL [facility] Bilirubin, Direct 0.1 0.0 - 0.5 mg/dL [facility] Aspartate Amino Transferase 26 5 - 31 U/L [facility] Alanine Aminotransferase 19 0 - 31 U/L [facility] Total Protein 7.6 6.5 - 8.0 g/dL [facility] Albumin Level 4.4 3.5 - 5.0 g/dL [facility] Alkaline Phosphatase 90 39 - 117 U/L [facility] 12/29/2024 10:0 0 AM EDT 12/29/2024 10:02 AM EDT Generic External Data Provider LAB BLOOD ORDERAB LES Final Result Performing Organization Address [facility] de Phone Number [facility] [address] [place] [phone] * (ABNORMAL) Basic Metabolic Panel (12/29/2024 10:00 AM EDT) Pathologist [facility] Sodium 142 135 - 145 mmol/L [facility] Potassium 4.0 3.3 - 5.1 mmol/L [facility] Chloride 107 96 - 108 mmol/L [facility] Carbon Dioxide 30(H) 22 - 29 mmol/L [facility] Anion Gap 9(L) 12 - 20 [facility] Urea Nitrogen (BUN) 10 9 - 16 mg/dL [facility] Creatinine, Serum 0.75 0.5 - 1.4 mg/dL [facility] Creatinine Clr Calc Pharmacy 66.2 [facility] Comment:Provided height and weight: 162.56 cm,49.5 kg.eGFR (calculated from the MDRD study equation) and eCrCl(calculated from the Cockcroft-Gault equation) are based ondifferent parameters and may not yield comparable results.If eCrCl result is absurd, please check patient'sheight/weight. Estimated Glomerular Filt Rate >60 [facility] Comment:Chronic Kidney Disea se: Estimated GFR < 60 mL/min/1.78y2Ztioca Kidney Disease: Estimated GFR < 15 mL/min/1.73m2 Glucose 117(H) 60 - 115 mg/dL [facility] Calcium 9.3 8.4 - 10.2 mg/dL [facility] 12/29/2024 10:0 0 AM EDT 12/29/2024 10:02 AM EDT us Generic External Data Provider LAB BLOOD ORDERAB LES Final Result [facility] [address] [place] [phone] * (ABNORMAL) Lipid Panel, Standard (07/24/2024 1:36 PM EDT) Triglycerides 141 <150 mg/dL [facility] Comment:Desirable Triglyceri de: less than 150 mg/dLBorderline High Triglyceride 150-199 mg/dLHigh Triglyceride: 200-499 mg/dLVery High Triglyceride: greater than or equal to 5OO mg/dL Cholesterol 205(H) <200 mg/dL [facility] Comment:Desirable Cholestero l: less than 200 mg/dLBorderline High Cholesterol: 200-239 mg/dLHigh Cholesterol: greater than 239 mg/dL LDL Cholesterol Calculated 114(H) <100 mg/dL [facility] Comment:Desirable LDL: less than 100 mg/dLNear Optimal/Above Optimal LDL: 110- 129 mg/dLBorderline High LDL: 130-159 mg/dLHigh LDL: 160-189 mg/dLVery High LDL: greater than or equal to 190 mg/dL HDL Cholesterol 63 >40 mg/dL [facility] Comment:Desirable HDL: great er than 40 mg/dL Note: This HDL assay may give artificially low results in patients with liver disease. 07/24/2024 1:36 PM EDT 07/24/2024 4:20 PM EDT us Generic External Data Provider LAB BLOOD ORDERAB LES Final Result [facility] [address] [place] [phone] * HPV mRNA E6/E7 w/Reflex to HPV Genotypes 16, 18/45 (03/22/2023 11:30 AM EST) HPV nRNA E6/E7 Not Detected Not Detected [facility] Comment:Methodology: Transcr iption-Mediated AmplificationThis assay detects E6/E7 viral messenger RNA (mRNA) from 14high-risk HPV types (16,18,31,33,35,39,45,51,52,56,58,59,66,68).Cervical sources are required for HPV testing.If a vaginal source from a patient who has had atotal hysterectomy with removal of cervix wassubmitted, please contact the testing laboratoryfor alternative testing options.For additional information, please refer tohttp://education.[employer]/faq/XFI353o1(This link if provided for information/educational purposes only.)THIS TEST WAS PERFORMED AT:[employer] [place] [phone] MALDONADO MD HPV mRNA E6/E7 TNP [facility] HPV 16 RNA TNP [facility] HPV 18/45 RNA [facility] 03/22/2023 11:3 0 AM EST 03/25/2023 12:20 PM EST us Emilie Ryan MD LAB CYTOLOGY ORDERABLES nal Result [facility] [address] [place] [phone] * Pap Smear (03/22/2023 11:30 AM EST) 03/22/2023 11:3 0 AM EST 03/25/2023 12:20 PM EST Narrative [facility] - 04/11/2023 11:26 AM EST ----- ------- Name: Harriet Valdez Age/Sex: 53/F : 1970 Unit#: [id number] Attend Dr: RADHA VILLAREAL MD Re03/22/23 Status: [facility] REF Location: [facility] Disch: ----- ------- SPEC : [id number] RECD: 03/25/230 STATUS: JANIE DUNLAP NUM: [id number] AMBREEN: 03/22/23 [facility] DR: Emilie Davis MD ENTERED: 03/25/230019 SP TYPE: Pap Smr OT DR: ORDERED: Pap Smear Interpretation Satisfactory for evaluation. Negative for intraepithelial lesion or malignancy. HPV mRNA E6/E7: NOT DETECTED This assay detects E6/E7 viral messenger RNA (mRNA) from 14 high-risk HPV types (16, 18, 31, 33, 35, 39, 45, 51, 52, 56, 58, 59, 66, 68) HPV testing performed by [employer], [place], [place]. See reference laboratory portion of the EMR for entire report. Clinical Information LMP: Unknown date Previous PAP test: Unknown date, WNL Other history: Pt on testosterone, surgical post menopause Material Received ThinPrep-Cervical ----- ------- Signed (signature on file) SERENA Alejandro (ASCP) 04/11/23 1126 ----- ------- END OF REPORT Emilie Davis MD LAB CYTOLOGY ORDERABLES Fi nal Result [facility] [address] [place] [address] [phone] * Colonoscopy (01/30/2018) Colonoscopy normal Historical Provider HEALTH MAINTENANCE Final Result from Last 3 Months or Most Recently Relevant to Health Maintenance Insurance 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
--- OUTSIDE RECORDS SUMMARY | 2025-03-02 08:14 | XMS_ITS | Encounter Summary ---
Author Organization [employer] Address [address] [facility] [address] 7[address] [place] [address] Care Team Providers Care Senior Designer Name Role Phone Emilie Davis MD Primary Care Provider [phone] Morales Echavarria Unavailable Unavailable August Unavailable Fred Castanon Unavailable Ele Mar MD Unavailable [phone] Reason for Visit * Reason Onset Date Comments Med Refill 04/22/2024 Encounter Details Date Type Department Care Team (Late st Contact Info) Description 04/22/2024 Telephone [facility] [address] [place] [address] Emilie Davis MD [address] [place] [address] Med Refill Social History Tobacco Use Types [...] 200 MG/5ML suspension To be sent to: [facility] - [place], [place] - [address] [facility] documented in this encounter Plan of Treatment Upcoming Encounters Date Type Department Care Team ([facility] st Contact Info) Description 03/03/2025 9:30 AM EDT Office Visit [facility] [address] [place] [address] Emilie Davis MD [address] [place] [address] 03/24/2025 11:00 AM EST Clinical Support [facility] [address] [place] [address] Medina Lewis, RN [address] [place] [address] 06/04/2025 3:00 PM EST Office Visit [facility] OPTOMETRY [address] [place] [address] GagandeepMerissa santos, OD [address] [place] [address] documented as of this encounter Visit Diagnoses Not on filedocumented in this encounter Additional Health Concerns Assessment Noted Time PHQ-9 Depression Total Score: 3 04/30/20 9:17 AM EST documented as of this encounter Care Teams Senior Designer Relationship Specialty Start Date End Date Emilie Davis MD [address] [place] [address] PCP - General Family Medicine 05/13/18 Morales Echavarria FNP [address] [place] [address] Nurse Practitioner Family Medicine 04/16/23August [address] [place] [address] Gastroenterology 05/26/24 Fred Castanon [address] [place] [address] 07/21/24 Ele Mar MD [address] [place] [address] Hematology and Oncology 02/22/25 Marina Brown MD Rheumatology 02/10/25 documented as of this encounter
[2025-03-02 08:16] VITALS: BMI 16.8
== END 2025-03-02 08:20 | disposition home or self-care (01) ==
LOC: HO.HOS 08:06
PROVIDERS: PCP Family Medicine; Visit Provider Orthopaedic Surgery
DX: M54.50 Low back pain, unspecified (principal); M79.605 Pain in left leg
CPT/HCPCS: 99213

== ENCOUNTER → 2025-03-02 08:06 | Outpatient (BNVA) | payer OTHER, SELFPAY | PROVIDERS: PCP Family Medicine; Visit Provider Orthopaedic Surgery | DX: Z71.2 Person consulting for explanation of examination or test findings (principal); M54.50 Low back pain, unspecified; M79.605 Pain in left leg | CPT/HCPCS: 99212 ==

== ENCOUNTER 2025-03-16 07:27 | Day surgery (SDC) | payer OTHER, SELFPAY ==
--- OUTSIDE RECORDS SUMMARY | 2024-12-29 | XMS_ITS | Encounter Summary ---
Author Organization [facility] Address [address] [place] [phone] Phone Care Team Providers Care Screw Machine Operator Single Spindle Name Role Phone Ryan, Emilie Way MD Primary Care Provi baldomero Encounter Details Date Type Department Care Team (Late st Contact Info) Description 12/29/2024 Hospital Encounter [facility] [address] [place] [address] Costa Miller MD [address] [facility] [address] [place] [address] [email or web address] Social History Tobacco Use Types Packs/Day Years Used Date Smoking Tobacco: Former Cigarettes 2017 Smokeless Tobacco: Current Alcohol Use Standard Drinks/Week Comments Not Currently 0 (1 standard drink = 0.6 oz pur e alcohol) Education Answer Date Recorded Are you interested in more education? Not on ryan e 09/07/2022 Are you concerned about learning? Not on file 09/07/2022 No 09/07/2022 No 09/07/2022 Digital Access Answer Date Recorded No 10/06/2022 No 10/06/2022 Reliable internet access at home? Not on file 10/06/2022 Device with a working camera? Not on file Comments No Sex and Gender Information Value Date Recorded Sex Assigned at Female 08/14/2018 9:54 AM EDT Legal Sex Female 9:17 AM EST Gender Identity Transgender Male 08/14/2018 9:55 AM EDT Sexual Orientation Something else 03/04/2025 8: 39 AM EDT documented as of this encounter Plan of Treatment Not on file documented as of this encounter Procedures Procedure Name Priority Date/Time Associated Diagnosis Comments CT ABDOMEN/PELVIS OUTSIDE WITH INTERPRETATION OR CONSULT Routine 12/29/2024 12:00 AM EDT documented in this encounter Results * CT Abdomen/Pelvis Outside with Interpretation or Consult (12/29/2024 12:00 AM EDT) 03/08/2025 1:09 PM EDT Narrative [facility] - 03/08/2025 1:[address] ABDOMEN/PELVIS OUTSIDE WITH INTERPRETATION OR CONSULT TECHNIQUE: Outside images of the requested CT abdomen This outside examination can not be read because: A more recent study has been interpreted. Procedure Note Deborah Castle MD - 03/08/2025 CT ABDOMEN/PELVIS OUTSIDE WITH INTERPRETATION OR CONSULT TECHNIQUE: Outside images of the requested CT abdomen This outside examination can not be read because: A more recent study has been interpreted. us Costa Miller MD IMG OUTSIDE IMAGING W/ INTERPR ETATION Final Result Performing Organization Address City/State/[facility] Co de Phone Number [address] [address] documented in this encounter Visit Diagnoses Not on filedocumented in this encounter Care Teams Screw Machine Operator Single Spindle Relationship Specialty Start Date End Date Ryan, Emilie Way MD [address] [place] [phone] PCP - General Family Medicine 06/03/18 documented as of this encounter Additional Source Comments The information contained in this document represents components of the legal health record. It is not the complete legal health record.[facility]
--- OUTSIDE RECORDS SUMMARY | 2025-01-19 | XMS_ITS | Encounter Summary ---
Author Organization [facility] Address [address] [place] [address] Phone Care Team Providers Care Commercial Roofer Name Role Phone Ryan, Emilie Way MD Primary Care Provi baldomero Encounter Details Date Type Department Care Team (Late st Contact Info) Description 01/19/2025 Hospital Encounter [facility] Imaging [address] [place] [address] Costa Miller MD [address] [facility] [address] [place] [address] [email or web address] Social History Tobacco Use Types Packs/Day Years [...] Procedure Name Priority Date/Time Associated Diagnosis Comments MRI ABDOMEN OUTSIDE WITH INTERPRETATION OR CONSULT Routine 01/19/2025 12:00 AM EDT documented in this encounter Results * MRI Abdomen Outside With Interpretation Or Consult (01/19/2025 12:00 AM EDT) 03/08/2025 1:10 PM EDT Impressions [facility] - 03/08/2025 1:43 PM EDT * 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 Associated mild upstream bile duct dilation. Abutment of the upper SMV. * No definite abdominopelvic metastases. Narrative [facility] - 03/08/2025 1:43 PM EDT MRI ABDOMEN OUTSIDE WITH INTERPRETATION OR CONSULT Referring clinician's provided indication for this examination in Epic: pancreatic cancer TECHNIQUE: MRI of the abdomen was performed with and without intravenous contrast. MRCP sequences were also interpreted. COMPARISON: CT ABDOMEN/PELVIS OUTSIDE WITH INTERPRETATION OR CONSULT FINDINGS: Lower Chest: Unremarkable. Liver: No focal suspicious lesions. 9 mm segment 8 hemangioma (23:20). Additional punctate segment 8 cyst. Biliary: Mild bile duct dilation upstream to a segment of narrowing of the intrapancreatic segment caused by the below described pancreatic head mass. Spleen: No splenomegaly or focal suspicious lesions. Pancreas: 31 x 27 x 21 mm posterior pancreatic head mass with upstream bile duct dilation. No significant main pancreatic duct dilation, noting accessory duct dominant drainage. Abutment of the upper SMV. Other vasculature is spared. Adrenal Glands: No nodules. Kidneys/Ureters: No solid masses or hydronephrosis. No obstructing stones. Bowel: No dilation or wall thickening. Colonic diverticulosis. Noninflamed appendix. Peritoneum/Retroperitoneum: No masses, free air, or fluid. Lymph Nodes: No lymphadenopathy. Pelvic Organs/Bladder: No masses. Vessels: No abdominal aortic aneurysm. Bones/Soft Tissues: No suspicious osseous lesions. Procedure Note Deborah Castle MD - 03/08/2025 MRI ABDOMEN OUTSIDE WITH INTERPRETATION OR CONSULT Referring clinician's provided indication for this examination in Epic:pancreatic cancer TECHNIQUE: MRI of the abdomen was performed with and without intravenouscontrast. MRCP sequences were also interpreted. COMPARISON: CT ABDOMEN/PELVIS OUTSIDE WITH INTERPRETATION OR [id number] FINDINGS: Lower Chest: Unremarkable. Liver: No focal suspicious lesions. 9 mm segment 8 hemangioma (23:20).Additional punctate segment 8 cyst. Biliary: Mild bile duct dilation upstream to a segment of narrowing of theintrapancreatic segment caused by the below described pancreatic headmass. Spleen: No splenomegaly or focal suspicious lesions. Pancreas: 31 x 27 x 21 mm posterior pancreatic head mass with upstreambile duct dilation. No significant main pancreatic duct dilation, notingaccessory duct dominant drainage. Abutment of the upper SMV. Othervasculature is spared. Adrenal Glands: No nodules. Kidneys/Ureters: No solid masses or hydronephrosis. No obstructingstones. Bowel: No dilation or wall thickening. Colonic diverticulosis. Noninflamedappendix. Peritoneum/Retroperitoneum: No masses, free air, or fluid. Lymph Nodes: No lymphadenopathy. Pelvic Organs/Bladder: No masses. Vessels: No abdominal aortic aneurysm. Bones/Soft Tissues: No suspicious osseous lesions. 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 Abutment of the upper SMV. * No definite abdominopelvic metastases. us Costa Miller MD IMG OUTSIDE IMAGING W/ INTERPR ETATION Final Result [address] [address] documented in this encounter Visit Diagnoses Not on filedocumented in this encounter Care Teams Commercial Roofer Relationship Specialty Start Date End Date Ryan, Emilie Way MD [address] [place] [address] PCP - General Family Medicine 06/03/18 documented as of this encounter Additional Source Comments The information contained in this document represents components of the legal health record. It is not the complete legal health record.[facility]
--- OUTSIDE RECORDS SUMMARY | 2025-02-16 05:45 | XMS_ITS | Continuity of Care Document ---
Author Organization [facility] Address [address] [place] [address] Phone Care Team Providers Care Manuscripts Curator Name Role Phone Josue MARISCAL, RVT, ANDRE, [...] Mins- [place] & [place] [facility], [address], [id number], [place] tel:[phone] CVR [place] Pruritus, unspecifiedVen ous insufficiency (chronic) (peripheral) Oct-0 5 Josue MARISCAL RVT, RPVI Robert. [address] [place] [address], [place], [place], [id number] , [place]. tel:[phone] Referring Provider: Emilie Way, [address] [place] [address], [place], [address]. tel:[phone] [facility], [address] [place] [address] [address] [place], [id number], [place] [phone] CVR - [facility] Varicose veins of bilateral lower extremities with pain Oct-0 5 Josue MARISCAL RVT, RPVI Robert. [address] [place] [address], [place], [place], [id number] , [place]. tel: [phone] Referring Provider: Emilie Way, [address] [place] [address], [place], [address]. tel:[phone] [facility], [address] [place] [address] Dr [address] [place], [id number], [place] [phone] CVR - [facility] Encounter for follow-up examination after completed treatment for conditions other than malignant neoplasmChroni c venous hypertension (idiopathic) with other complications of left lower extremity Sep-1 5 Josue MARISCAL RVT, RPVI Robert. [address] [place] [address], [place], [place], [id number] , [place]. tel:[phone] Referring Provider: Emilie Way, [address] [place] [address], [place], [address]. tel:[phone] [facility], [address] [place] [address] [address] [place], [id number], [place] tel:[phone] CVR - [facility] Varicose veins of left lower extremity with other complications Sep-1 5 Josue MARISCAL RVT, RPVI Robert. [address] [place] [address], [place], [place], [id number] , [place]. [phone] Referring Provider: Emilie Way, [address] [place] [address], [place], [address]. tel:[phone] [facility], [address] [place] [address] [address], [id number], [place] tel:[phone] CVR - [facility] Encounter for follow-up examination after completed treatment for conditions other than malignant neoplasmChroni c venous hypertension (idiopathic) with other complications of right lower extremity Sep-0 5 Josue MARISCAL RVT, ANDRE Hammond. [address] [place] [address], [place], [place], [id number] , [place]. [phone] Referring Provider: Emilie Way, [address] [place] [address], [place], [address]. tel:[phone] [place] [facility], [address] [place] [address] [address], [id number], [place] tel:[phone] [facility] No Information Sep-0 5 Josue MARISCAL RVT, ANDRE Hammond. [address] [place] [address], [place], [place], [id number] , [place]. [phone] Referring Provider: Emilie Way, [address] [place] [address], [place], [address]. tel:[phone] [place] [facility], [address] [place] [address] [address] 1000[place], [id number], [place] tel:[phone] [facility] Varicose veins of right lower extremity with other complications Aug-2 5 Josue MARISCAL RVT, RPVI Robert. [address] [place] [address], [place] [address], [place], [place], [id number] , [place]. tel:[phone] Referring Provider: Emilie Way, [address] [place] [address], [place], [address]. tel:[phone] [facility], [address] [place] [address] Dr [address]Su[place]ector [place], [id number], [place] tel:[phone] CVR - [facility] No Information 5 Josue MARISCAL RVT, ANDRE Hammond. [address] [facility], [address], [facility] [place], [id number] , [place]. tel:[phone] Offic/outpt E&m Estab 5 Min Trial- Telemedicine [place] & [place] [facility], [address] [place] [address] [address] [place], [id number], [place] tel:[phone] CV - [facility] Chronic venous hypertension (idiopathic) with other complications of bilateral lower extremity 5 Josue MARISCAL RVT, ANDRE Hammond. [address] [place] [address], [facility] [place], [id number] , [place]. [phone] Referring Provider: Emilie Way, [address] [facility], [place], [address]. tel:[phone] Offic Cons New/estab Mod 40 Mi- CT & [place] [facility], [address] [place] [address] [address] [place], [id number], [place] tel:[phone] [facility] hypertension (idiopathic) without complications of bilateral lower extremityRestl ess legs syndromePrurit us, unspecifiedPai n in left legCramp and spasmLocalized edema 5 Josue MARISCAL RVT, ANDRE Hammond. [address] [facility], [address], [facility] [place], [id number] , [place]. tel:[phone] Referring Provider: Emilie Way, [address] [facility], [place], [address]. tel:[phone] [facility] MD [place], [address] [place] [address] [address] [place], [id number], [place] tel:[phone] CVR - [place] [facility] [place] Varicose veins of bilateral lower extremities with pain Josue MARISCAL, RVT, RPVI Manish. [address] [facility], [address], [place], [place], [id number] , [place]. tel:[phone] Referring Provider: Emilie Sag[place], [address] [place] [address], [place], [address]. tel:[phone] Family History Family Member Type Diagnosis Age At Onset No Information Payers Payer name Insurance type Covered constitution party ID Ramiro gomez(s) [facility] [employer] CI [id number] Social History Type Description Quantity Date Captured [...] measure Related to Venous insufficiency (chronic) (peripheral) Pre and post instruc tions reviewed and [...]
--- OUTSIDE RECORDS SUMMARY | 2025-03-04 15:00 | XMS_ITS | Encounter Summary ---
Author Organization [facility] Address [address] [place] [address] Care Team Providers Care Warping Mill Operator Name Role Phone Unavailable Primary Care Provider Unavailabl e Reason for Referral * Imaging (Routine) - Pending Review Specialty Diagnoses / Procedures Referred By Rasheed lin Referred To Contact Radiology Diagnoses Adenocarcinoma of pancreas (CMS/HCC V24, CMS/HCC V28) Procedures PET CT Skull to Mid Thigh Initial Ele Mar MD [address] [place] [address] HEMATOLOGY / [place] [address] Phone: tel: fax: [facility] Referral ID Status Reason Start Date Expiration Date V isits Requested Visits Authorized [id number] Pending Review 03/04/2025 03/04/2026 1 1 Reason for Visit * Imaging (Routine) - Pending Review Specialty Diagnoses / Procedures Referred By Rasheed lin Referred To Contact Radiology Diagnoses Adenocarcinoma of pancreas (CMS/HCC V24, CMS/HCC V28) Procedures PET CT Skull to Mid Thigh Initial Ele Mar MD [address] [place] [address] HEMATOLOGY / [place] [address] Phone: tel: fax: [facility] Referral ID Status Reason Start Date Expiration Date V isits Requested Visits Authorized [id number] Pending Review 03/04/2025 03/04/2026 1 1 Encounter Details Date Type Department Care Team (Latest Contact Info) Description 03/04/2025 3:00 PM EDT Hospital Encounter [facility] PET Scan [address] [place] [address] Adenocarcinoma of pancreas (CMS/HCC V24, CMS/HCC V28) Social History Tobacco Use Types Packs/Day Years Used Date Smoking Tobacco: Never Assessed Comments Unknown Sex and Gender Information Value Date Recorded Sex Assigned at Not on file Legal Sex Unknown 03/04/2025 2:57 PM EDT Gender Identity Not on file Sexual Orientation Not on file documented as of this encounter Last Filed Vital Signs Vital Sign Reading Time Taken Comments Blood Pressure - - Pulse - - Temperature - - Respiratory Rate - - Oxygen Saturation - - Inhaled Oxygen Concentration - - Weight 45.4 kg (100 lb) 03/04/2025 3:35 PM EDT Height 165.1 cm (5' 5 ) 03/04/2025 3:35 PM EDT Body Mass Index 16.64 03/04/2025 3:35 PM EDT documented in this encounter Plan of Treatment Not on file documented as of this encounter Procedures Procedure Name Priority Date/Time Associated Diagnosis Comments PET CT SKULL TO MID THIGH INITIAL Routine 03/04/2025 4:32 PM EDT Adenocarcinoma of pancreas (CMS/HCC V24, CMS/HCC V28) documented in this encounter Results * PET CT Skull to Mid Thigh Initial (03/04/2025 4:32 PM EDT) Anatomical Region Laterality Modality Body Radiographic [facility] 03/05/2025 3:19 AM EDT Impressions 03/05/2025 3:48 AM EDT 1. FDG avid pancreatic mass in keeping with biopsy-proven malignancy 2. Nonspecific focal activity posterior to the gluteus brandon muscles, right greater than left. Correlation with physical examination is suggested. 3. No FDG avid abdominal or pelvic lymphadenopathy Please note: The CT was acquired at a low radiation dose settings. The images are of nondiagnostic quality and used solely for purposes of attenuation correction and slice localization for the PET scan. If a diagnostic CT study is desired it must be ordered separately. -------- FINAL REPORT -------- Dictated By: Jannet Rodriguez Dictated Date: 03/05/2025 03:19 ET Assigned Physician: Jannet Rodriguez Reviewed and Electronically Signed By: Jannet Rodriguez Signed Date: 03/05/2025 03:48 ET Workstation ID: [id number] Transcribed By: Self Edit Transcribed Date: 03/05/2025 03:19 ET Narrative 03/05/2025 3:48 AM EDT INDICATION: ADENOCARCINOMA PANCREAS. TECHNIQUE: FDG PET-CT imaging was performed from the skull bases through the thighs in a single acquisition with data set reconstructed in axial, coronal, and sagittal planes at the computer workstation with fused data from both the PET imaging study and attenuation correction CT. The CT portion of the examination was done strictly for attenuation correction and is not a true diagnostic CT examination. Patient declined enteric contrast. DLP: 272 mGy-cm Radiopharmaceutical: 9.6 mCi of F-18 FDG IV. Blood glucose: 75 mg/dl. COMPARISON: Correlation is made with outside CT of the abdomen and pelvis dated February 2025 and outside MRI of the abdomen dated January 2025 FINDINGS: HEAD AND NECK: Bilateral nonenlarged cervical lymph nodes measuring up to SUV Max 2.0 on the left and 2.4 on the right, possibly reactive. THORAX: No abnormal FDG activity. Status post bilateral mastectomy. Calcified granulomata. Small pulmonary nodules without significant FDG activity. For example, calcified millimeter nodule in the left upper lobe SUV max 0.7. ABDOMEN/PELVIS: FDG avid pancreatic mass SUV max 4.8. No FDG avid abdominal or pelvic lymphadenopathy. Status post cholecystectomy. Large amount of stool in the colon. Diverticulosis. MUSCULOSKELETAL: Nonspecific focal activity posterior to the right gluteus brandon muscle SUV max 9.3 and posterior to the left gluteus maximum muscle SUV max 2.2. No FDG avid osseous lesions. Procedure Note Jannet Rodriguez MD - 03/05/2025 INDICATION: ADENOCARCINOMA PANCREAS. TECHNIQUE: FDG PET-CT imaging was performed from the skull bases throughthe thighs in a single acquisition with data set reconstructed in axial,coronal, and sagittal planes at the computer workstation with fused datafrom both the PET imaging study and attenuation correction CT. The CTportion of the examination was done strictly for attenuation correctionand is not a true diagnostic CT examination. Patient declined entericcontrast. DLP: 272 mGy-cm Radiopharmaceutical: 9.6 mCi of F-18 FDG IV. Blood glucose: 75 mg/dl. COMPARISON: Correlation is made with outside CT of the abdomen and pelvisdated February 2025 and outside MRI of the abdomen dated January 2025 FINDINGS: HEAD AND NECK: Bilateral nonenlarged cervical lymph nodes measuring up toSUV Max 2.0 on the left and 2.4 on the right, possibly reactive. THORAX: No abnormal FDG activity. Status post bilateral mastectomy. Calcified granulomata. Small pulmonary nodules without significant FDGactivity. For example, calcified millimeter nodule in the left upper lobeSUV max 0.7. ABDOMEN/PELVIS: FDG avid pancreatic mass SUV max 4.8. No FDG avidabdominal or pelvic lymphadenopathy. Status post cholecystectomy. Large amount of stool in the colon.Diverticulosis. MUSCULOSKELETAL: Nonspecific focal activity posterior to the right gluteusmaximus muscle SUV max 9.3 and posterior to the left gluteus maximummuscle SUV max 2.2. No FDG avid osseous lesions. IMPRESSION: 1. FDG avid pancreatic mass in keeping with biopsy-proven malignancy 2. Nonspecific focal activity posterior to the gluteus brandon muscles,right greater than left. Correlation with physical examination issuggested. 3. No FDG avid abdominal or pelvic lymphadenopathy Please note: The CT was acquired at a low radiation dose settings. The images are ofnondiagnostic quality and used solely for purposes of attenuationcorrection and slice localization for the PET scan. If a diagnostic CTstudy is desired it must be ordered separately. -------- FINAL REPORT -------- Dictated By: Jannet Rodriguez Dictated Date: 03/05/2025 03:19 ET Assigned Physician: Jannet Rodriguez Reviewed and Electronically Signed By: Jannet Rodriguez Signed Date: 03/05/2025 03:48 ET Workstation ID: [id number] Transcribed By: Self Edit Transcribed Date: 03/05/2025 03:19 ET Ele Mar MD IM NM PROCEDURES Final Result documented in this encounter Visit Diagnoses Diagnosis Adenocarcinoma of pancreas (CMS/HCC V24, CMS/HCC V28) Malignant neoplasm of pancreas, part unspecified documented in this encounter Administered Medications Inactive Administered Medications - up to 3 most recent administrations Medication Order MAR Action Action Date Dose Rate Site F-18 FDG pet diag radio-isotope injection 9.6 millicurie 9.6 millicurie, intravenous, Once in imaging, Starting on Alanna 03/04/25 at 1529, For 1 dose Given 03/04/2025 3:29 PM EDT 9.6 millicuries documented in this encounter Orders Medications Ordered That Jovanny ht Not Have Been Administered Count Last Ordered Date First Ordered Date F-18 FDG pet diag radio-isot ope injection 9.6 millicurie 1 03/04/2025 documented in this encounter
--- OUTSIDE RECORDS SUMMARY | 2025-03-09 15:00 | XMS_ITS | Encounter Summary ---
Author Organization [facility] Address [address] [place] [address] Phone Care Team Providers Care Combination Operator Name Role Phone Ryan, Emilie Way MD Primary Care Provi baldomero Encounter Details Date Type Department Care Team (Latest Contact Info) Description 03/09/2025 3:00 PM EDT Office Visit [facility] General & Gastrointestinal Surgery [address] [place] [address], 4th Floor, [address] [place] [address] Costa Miller MD [address] [place] [address] [address] [place] [address] [email or web address] 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) Social History Tobacco Use Types Packs/Day Years Used Date Smoking Tobacco: Former Cigarettes 2017 Smokeless Tobacco: Current Tobacco Cessation:Ready to Q uit: Not Asked; Counseling Given: Not Answered Alcohol Use Standard Drinks/Week Comments Not Currently [...] AM EDT documented as of this encounter Last Filed Vital Signs Vital Sign Reading Time Taken Comments Blood Pressure 89/57 03/09/2025 2:39 PM EDT 89/ 72 Pulse 67 03/09/2025 2:39 PM EDT Temperature - - Respiratory Rate - - Oxygen Saturation - - Inhaled Oxygen Concentration - - Weight 46.7 kg (103 lb) 03/09/2025 2:39 PM EDT s hoes on Height - - Body Mass Index 17.68 08/25/2018 9:37 AM EDT documented in this encounter Progress Notes * Costa Miller MD - 03/09/2025 3:00 PM EDT HEPATOBILIARY & PANCREATIC SURG[facility] Visit Note REFERRING PROVIDER: Emilie Davis* DATE: 03/10/25 TIME: 6:33 AM PATIENT: Harriet Roberson Dear Dr. Davis, I saw our mutual patient to discuss management of his newly diagnosed pancreatic cancer. While you are familiar with his records, please allow me to recount manzanares aspects of his care that lead to our clinical decision making. Please feel free to contact me at any time to discuss his management in more detail. History of Present Illness Harriet Roberson is a 55 y.o. M, who was found to have a pancreatic head mass during a work-up for dysphagia and abdominal pain in early January 2025. The mass was ultimately biopsied confirmingpancreatic adenocarcinoma. He now comes to clinic with his partner to discuss next steps in management. Overall, the pain is better, and he is eating a little bit more. He does not have nausea or vomiting. He does not have diabetes (A1c = 5.5%, 10/02/2024) or symptoms of pancreatic exocrine insufficiency. Narrative Medical, Surgical, Social, and Family Histories In addition, he has a history of hypertension and reflux disease. His surgical history includes open cholecystectomy, mastectomy, and hysterectomy. 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 He does not smoke, abuse alcohol, or have any high- risk behaviors. The family history was non-pertinent. An updated medication and allergy lists are included below. Outpatient medications Famotidine 40mg qd Bowel regimen as needed Allergies Penicillins cause anaphylaxis, and sumatriptan causes an unspecified reaction. Review of Systems A twelve-point review of systems was conducted with pertinent responses highlighted in the HPI. Physical Exam Vitals: 03/09/25 1439 BP: (!) 89/57 Pulse: 67 On exam, he conversant and in no acute distress. The sclera are anicteric. Heart rhythm is sinus. Breathing is non-labored on room air. The abdomen is soft, non- tender, and non-distended. There is a well-healed McBurney's scar. There are no rashes or lower extremity pitting edema. Imaging CT abdomen and pelvis from February 2025 was interpreted by me and shows a roughly 2cm pancreatic head mass that is abutting the SMV. There is no SMA involvement. There is no evidence of metastatic disease. The pancreatic duct is slightly dilated. Tumor markers, pathology results, and additional labs CA19-9 (02/01/2025) = 671 Histopathology from an endoscopic biopsy obtained January 2025 shows adenocarcinoma. LFTs (01/27/2025) = 7.2 / 4.2 / 0.2 / 18 / 22 / 79 CBC (02/18/2025) = 16 / 15 / 45 / 364 BMP (01/27/2025) = 143 / 3.8 / 108 / 30 / 13 / 0.79 Assessment Mr. Trace Roberson is a 55 yo M with a resectable pancreatic adenocarcinoma. He is young, and given the slight vein involvement, it makes sense to start with some chemotherapy to shrink the tumor away from the vein. Otherwise, he will need a Whipple with a possible small venous reconstruction. We wentover this with several drawings via the university demonstrator, and he is in full agreement with the plan. [place] I linked up with his local Medical Oncologist, Dr. Mar, and explained myratione for a neoadjuvant approach. After three cycles, we'll assess for a treatment response then decide on the duration of systemic therapy before making a final plan about surgery. Should anythingarise in the meantime, he knows to get in touch with me. Plan: - Initiate systemic therapy locally with Dr. Mar - Return to clinic with updated tumor markers and pancreas protocol CT abdomen and pelvis Follow-up timin weeks (ok for virtual visit) We will be in touch regarding these recommendations and next steps. Again, thank you for the opportunity to participate in Mr. Trace Roberson's care. Costa Miller MD Attending Hepatobiliary & Pancreatic Surgeon Division of Surgical Oncology [facility] documented in this encounter Plan of Treatment Not on file documented as of this encounter Visit Diagnoses Diagnosis Malignant neoplasm of head of pancreas- Primary documented in this encounter Care Teams Combination Operator Relationship Specialty Start Date End Date [place], Emilie Way MD [address] [place] [address] PCP - General Family Medicine 06/03/18 documented as of this encounter Additional Source Comments The information contained in this document represents components of the legal health record. It is not the complete legal health record.[facility]
--- OUTSIDE RECORDS SUMMARY | 2025-03-10 23:59 | XMS_ITS | Continuity of Care Document ---
Author Organization [facility] Address [address] [place] [address]- Care Team Providers Care Fpga Engineer Name Role Phone Emilie Davis MD Primary Care Physician Encounter [facility] Date(s): 02/08/25 - 03/10/25 [facility] [address] [place] [address]- Referring Physician: Pam PALMA, August Referring Physician: Carmelita Wilkerson Encounter Type: Triage Allergies, Adverse Reactions, Alerts Substance Criticality Severity Reaction Reaction Severity Status penicillin Active Medications dicyclomine 10 mg oral capsule 1 capsule = 10 mg, By Mouth, 3 times a day, PRN Diarrhea, cramps, # 90 capsule, 1 Refills, Maintenance, 04/08/19 4:41:56 PM EST, [facility]/pharmacy #[id number] Start Date: 04/08/19 Status: Ordered Medication Dispense Status: Completed Quantity: 90.0 Unit: capsule Total Allowed Fills: 2 Fills Dispensed: 0 famotidine 40 mg oral tablet 1 tablet = 40 mg, By Mouth, Daily at bedtime, # 30 tablet, 0 Refills, Maintenance, 02/16/25 10:15:00AM EDT, Tablet, Partial fill upon patient request if the prescription is for a schedule II opioid drug. Start Date: 02/16/25 Status: Ordered Medication Dispense Status: Completed Quantity: 30.0 Unit: tablet Total Allowed Fills: 1 Fills Dispensed: 0 Linzess = 290 mcg, By Mouth, Daily, 0 Refills, Maintenance, 02/16/25 10:12:00 AM EDT, Partial fill upon patient request if the prescription is for a schedule II opioid drug. Start Date: 02/16/25 Status: Ordered Medication Dispense Status: Completed Total Allowed Fills: 1 Fills Dispensed: 0 Pancrelipase Capsule = 3,000 units, By Mouth, 2 times a day, 0 Refills, Maintenance, 02/16/25 10:12:00 AM EDT, Partial fill upon patient request if the prescription is for a schedule II opioid drug. Start Date: 02/16/25 Status: Ordered Medication Dispense Status: Completed Total Allowed Fills: 1 Fills Dispensed: 0 Social History Social History Type Response Smoking Status Former smoker entered on: 12/05/17 Sex Female Sex Representation Female (finding) Patient Care team information Care Team Personnel Name: Ryan MARISCAL , Emilie Stevens Position: [facility] Outreach Member Role: PCP Address: [address] [place] [address] Telecom: Care Team Related Persons Name: CAREN BRWON Insurance Providers Guarantor name: DAYANARA ELLER Ornicept Plan Information #: 1 Payer: [employer] Payer Identifier: VANESSA Member Number: [id number] Group Number: [id number] Subscriber Identifier: NA Relationship to Subscriber: self Coverage Type: Other Private Insurance Coverage Verification Date: NA Telecom: NA Address:
--- OUTSIDE RECORDS SUMMARY | 2025-03-12 06:40 | XMS_ITS | Encounter Summary ---
Author Organization [facility] Address [address] [place] [address] Phone Care Team Providers Care Pharmacy Services Director Name Role Phone Emilie Davis MD Primary Care Provi baldomero Encounter Details Date Type Department Care Team (Late st Contact Info) Description 10/28/2018 Procedure Pass OR Admitting Dept - Virtual Department [address] [place] [address] Social History Tobacco Use Types Packs/Day Years [...] on filedocumented in this encounter Care Teams Pharmacy Services Director Relationship Specialty Start Date End Date Emilie Davis MD [address] [place] [address] PCP - General Family Medicine 06/03/18 documented as of this encounter Additional Source Comments The information contained in this document represents components of the legal health record. It is not the complete legal health record.[facility]
--- OUTSIDE RECORDS SUMMARY | 2025-03-12 06:41 | XMS_ITS | Encounter Summary ---
Author Organization [email or web address] Address [address] [place] [address] Phone Care Team Providers Care Sales Development Associate Name Role Phone Ryan, Emilie Way MD Primary Care Provi baldomero Encounter Details Date Type Department Care Team (Late st Contact Info) Description 03/08/2025 Ancillary Orders [facility] Imaging [address] [place] [address] Costa Miller MD [address] [facility] [address] [place] [address] [email or web address] Social History Tobacco Use [...] on file documented as of this encounter Results * MRI Abdomen Outside With Interpretation Or Consult (01/19/2025 12:00 AM EDT) 03/08/2025 1:10 PM EDT Impressions [facility] - 03/08/2025 1:43 PM EDT * 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 Associated mild upstream bile duct dilation. Abutment of the upper SMV. * No definite abdominopelvic metastases. Narrative [facility] - 03/08/2025 1:43 PM EDT MRI ABDOMEN OUTSIDE WITH INTERPRETATION OR CONSULT Referring clinician's provided indication for this examination in [facility]: pancreatic cancer TECHNIQUE: MRI of the abdomen [...] clinician's provided indication for this examination in [facility]:pancreatic cancer TECHNIQUE: MRI of the abdomen was performed with and without intravenouscontrast. MRCP sequences were also interpreted. COMPARISON: CT ABDOMEN/PELVIS OUTSIDE WITH INTERPRETATION OR [id number] FINDINGS: Lower Chest: Unremarkable. Liver: No focal [...] OUTSIDE IMAGING W/ INTERPR ETATION Final Result [address] [address] documented in this encounter Visit Diagnoses Not on filedocumented in this encounter Care Teams Sales Development Associate Relationship Specialty Start Date End Date [place], Emilie Way MD [address] [place] [address] PCP - General Family Medicine 06/03/18 documented as of this encounter Additional Source Comments The information contained in this document represents components of the legal health record. It is not the complete legal health record.[facility]
--- OUTSIDE RECORDS SUMMARY | 2025-03-12 06:41 | XMS_ITS | Encounter Summary ---
Author Organization [employer] [facility] Address [address] [place] [phone] Phone Care Team Providers Care Wood Coater Name Role Phone Ryan, Emilie Way MD Primary Care Provi baldomero Encounter Details Date Type Department Care Team (Late st Contact Info) Description 03/08/[address] [facility] Imaging [address] [place] [address] Costa Miller MD [address] [facility] [address] [place] [address] [email or web address] Social History Tobacco Use Types Packs/Day Years [...] documented as of this encounter Results * CT Abdomen/Pelvis Outside with Interpretation or Consult (12/29/2024 12:00 AM EDT) 03/08/2025 1:09 PM EDT Narrative [facility] - 03/08/2025 1:[address] ABDOMEN/PELVIS [...] INTERPR ETATION Final Result Performing Organization Address City/State/[facility] Co de Phone Number [address] [address] documented in this encounter Visit Diagnoses Not on filedocumented in this encounter Care Teams Wood Coater Relationship Specialty Start Date End Date Emilie Davis MD [address] [place] [phone] PCP - General Family Medicine 06/03/18 documented as of this encounter Additional Source Comments The information contained in this document represents components of the legal health record. It is not the complete legal health record.[facility]
--- OUTSIDE RECORDS SUMMARY | 2025-03-12 06:41 | XMS_ITS | Clinical Summary ---
Author Organization [facility] Address [address] [place] [address] Phone Care Team Providers Care Email Specialist Name Role Phone Unavailable Primary Care Provider Unavailabl e Encounters Date Type Department Care Team Description 03/04/2025 3:00 PM EDT Hospital Encounter [facility] PET Scan [address] [place] [address] Adenocarcinoma of pancreas (CMS/HCC V24, CMS/HCC V28) from Last 3 Months Social History Tobacco Use Types Packs/Day Years Used Date Smoking Tobacco: Never Assessed Comments Unknown Sex and Gender Information Value Date Recorded Sex Assigned at Not on file Legal Sex Unknown 03/04/2025 2:57 PM EDT Gender Identity Not on file Sexual Orientation Not on file Last Filed [...] Mass Index 16.64 03/04/2025 3:35 PM EDT Plan of Treatment Health Maintenance Due Date Last Done Comments Breast Cancer Screening 1970 Colorectal Cancer Screening: Colonoscopy 1970 Pneumococcal Vaccine: 50+ Years (2 of 2 - PCV) 2019 09/17/2017 Zoster Vaccines (1 of 2) 02/01/2023 12/07/2022 Depression Screening 05/13/2024 COVID-19 Vaccine (4 - 2024-2 6 season) 2025 06/05/2021, 10/11/2020, 09/14/2020 Influenza Vaccine (#1) 2025 , 03/31/2018 Hepatitis C Screening 03/04/2025 Social Influencers of Health Screening 03/04/2025 Hypertension/CHF/CAD Annual BMP Blood Test 01/27/2026 01/27/2025, 01/14/2025, 12/29/2024 Cervical Cancer Screening: P ap Smear 03/22/2026 03/22/2023 DTaP,Tdap,and Td Vaccines (2 - Td or Tdap) 06/18/2029 06/18/2019 Cholesterol Screening (Lipid Panel) 07/24/2029 07/24/2024 RSV Immunization Adult Patients (1 - 1-dose 75+ series) 02/12/2044 Varicella Vaccines Aged Out 12/07/2022 No longer eligible based on patient's age to complete this topic Hepatitis A Vaccines Aged Out 03/16/2024, 12/07/2022 No longer eligible based on patient's age to complete this topic Hepatitis B Vaccines Completed 03/16/2024, 01/07/2023, 12/07/2022 HIV Screening Completed 02/01/2025, 01/27/2025, 01/27/2025 HIB Vaccines Aged Out No longer eligi ble based on patient's age to complete this topic HPV Vaccines Aged Out No longer eligi ble based on patient's age to complete this topic IPV Vaccines Aged Out No longer eligi ble based on patient's age to complete this topic MMR Vaccines Aged Out No longer eligi ble based on patient's age to complete this topic Meningococcal ACWY Vaccine Aged Out N o longer eligible based on patient's age to complete this topic Meningococcal B Vaccine Aged Out No l onger eligible based on patient's age to complete this topic RSV Immunization Patients Under 20 months Aged Out No longer eligible b ased on patient's age to complete this topic Procedures Procedure Name Priority Date/Time Associated Diagnosis Comments PET CT SKULL TO MID THIGH INITIAL Routine 03/04/2025 4:32 PM EDT Adenocarcinoma of pancreas (CMS/HCC V24, [facility]/HCC V28) from Last 3 Months Results * PET CT Skull to Mid [...] Signed Date: 03/05/2025 03:48 ET Workstation ID: [id number] Transcribed By: Self Edit Transcribed Date: 03/05/2025 [...] Signed Date: 03/05/2025 03:48 ET Workstation ID: [id number] Transcribed By: Self Edit Transcribed Date: 03/05/2025 03:19 ET Ele Mar [facility] Final Result from Last 3 Months Insurance [facility]
--- OUTSIDE RECORDS SUMMARY | 2025-03-12 06:41 | XMS_ITS | Clinical Summary ---
Author Organization [facility] Address [address] [place] [phone] Phone Care Team Providers Care Veneer Clipper Name Role Phone Emilie Davis MD Primary [...] Dx: post op pain 16 tablet 10/30/19 Active Additional Information Patient not taking.Reported on 03/09/2025 famotidine (PEPCID) 40 MG tablet Take 40 mg by mouth. 02/17/20 Active bisacodyl (DULCOLAX) 5 mg EC tablet Take 10 mg by mouth nightly at bedtime. 01/29/20 Active Active Problems Problem Noted Date Diagnosed Date Gender 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 10/03/2018 Encounters Date Type Department Care Team Description 03/09/2025 3:00 PM EDT Office Visit [facility] General & Gastrointestinal Surgery [address] [facility], 4th Floor, [address] [place] [address] Costa Miller MD 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) 03/08/2025 Ancillary Orders [facility] [address] [place] [phone] Costa Miller MD 03/08/2025 Ancillary Orders [facility] [address] [place] [phone] Costa Miller MD 03/04/2025 Ancillary Orders [facility] [address] [place] [address] Heriberto Tan MD 03/04/2025 Ancillary Orders [facility] [address] [place] [phone] Heriberto Tan MD 02/23/2025 - 02/23/2025 11:59 PM EDT Hospital Encounter [facility] [address] [place] [phone] Heriberto Tan MD Discharge Disposition: Home or Self Care 02/18/2025 - 02/18/2025 11:59 PM EDT Hospital Encounter [facility] [address] [place] [phone] Heriberto Tan MD Discharge Disposition: Home or Self Care 01/19/2025 Hospital Encounter [facility] [address] [place] [address] Costa Miller MD 12/29/2024 Hospital Encounter [facility] [address] [place] [address] Costa Miller MD from Last 3 Months Family History Medical History Relation Comments Diabetes [...] Something else 03/04/2025 8: 39 AM EDT Last Filed Vital Signs Vital Sign Reading Time Taken Comments Blood Pressure 89/57 03/09/2025 2:39 PM EDT 89/ 72 Pulse 67 03/09/2025 2:39 PM EDT Temperature 36.4 C (97.5 F) 10/28/2018 2:45 PM EDT Respiratory Rate 16 10/28/2018 4:15 PM EDT Oxygen Saturation 99% 10/28/2018 4:15 PM EDT Inhaled Oxygen Concentration - - Weight 46.7 kg (103 lb) 03/09/2025 2:39 PM EDT s hoes on Height 162.6 cm (5' 4 ) 08/25/2018 9:37 AM EDT Body Mass Index 17.68 08/25/2018 9:37 AM EDT Plan of Treatment Health Maintenance Due Date Last Done Comments CREATININE LEVEL 1969 POTASSIUM LEVEL 1969 DEPRESSION SCREENING 1981 SMOKING Hx and SMOKELESS TOBACCO SCREENING 1982 HEPATITIS C SCREENING 1987 HIV ONE-TIME SCREENING (18-6 5 YEARS) 1987 MAMMOGRAM 2009 COLOGUARD 2014 COLONOSCOPY 2014 COLORECTAL CANCER SCREENING 2014 FIT TEST 2014 FOBT 2014 SIGMOIDOSCOPY 2014 VIRTUAL COLONOSCOPY 2014 PNEUMOCOCCAL VACCINES (50+ years) (2 of 2 - PCV) 2019 09/17/2017 ZOSTER VACCINES (1 of 2) 2019 INFLUENZA VACCINE (#1) 2024 0, 03/31/2018 COVID-19 VACCINE (2 - 2024-2 6 season) 2025 09/14/2020 PAP SMEAR 03/22/2026 03/22/2023 Adult Td,Tdap Booster 06/18/2029 06/18/2019 LIPID PANEL 07/24/2029 07/24/2024 RSV VACCINE (1 - 1-dose 75+ series) [...] this topic Medical Devices Not on file Procedures Procedure Name Priority Date/Time Associated Diagnosis Comments OUTSIDE PATHOLOGY 03/04/2025 OUTSIDE IMAGING 03/04/2025 CT CHEST OUTSIDE WITH INTERPRETATION OR CONSULT Routine 02/23/2025 12:[address] ABDOMEN/PELVIS OUTSIDE WITH INTERPRETATION OR CONSULT Routine 02/18/2025 12:00 AM EDT MRI ABDOMEN OUTSIDE WITH INTERPRETATION OR CONSULT Routine 01/19/2025 12:[address] ABDOMEN/PELVIS OUTSIDE WITH INTERPRETATION OR CONSULT Routine 12/29/2024 12:00 AM EDT from Last 3 Months Results * Outside Imaging Report Only (03/04/2025) us Scanning Interface Provider IMG XR CHEST Maida l Result * Outside Pathology (03/04/2025) us Scanning Interface Provider PATHOLOGY ORDERABLES Final Result * CT Chest Outside With Interpretation Or Consult (02/23/2025 12:00 AM EDT) 03/08/2025 8:59 AM EDT Impressions [facility] - 03/08/2025 9:05 AM EDT No metastatic disease to the thorax Narrative [facility] - 03/08/2025 9:[address] CHEST OUTSIDE WITH INTERPRETATION OR CONSULT Referring clinician's provided indication for this examination in [facility]: pancreatic cancer TECHNIQUE: Multidetector CT of the chest was performed with intravenous contrast. COMPARISON: None available FINDINGS: Devices/Tubes/Lines: None. Lungs: The central airways are patent. There are scattered calcified granulomas. No suspicious nodules. Pleura: No pleural effusion or pneumothorax. Mediastinum: There are no thyroid nodules. There is mild coronary artery calcification. The cardiac chambers are within normal limits. There is no pericardial effusion. Patulous esophagus. Lymph Nodes: No enlarged supraclavicular, axillary, mediastinal, or hilar lymph nodes. Upper Abdomen: Limited contrast-enhanced images of the upper abdomen were obtained. In segment 8 of the liver there is a 8mm lesion with peripheral enhancement as seen on image 78. Adjacent to this there is a 4 mm hypodensity. No focal lesions in the visualized spleen or kidneys. The patient is status post cholecystectomy. There is prominence of the extrahepatic common bile duct. Known pancreatic head/uncinate process mass is outside the [id number]. Please refer to report of CT abdomen dated 02/18/2025 for additional findings. Chest Wall: No chest wall mass. Bones: There are mild degenerative changes in the visualized spine. No suspicious lytic or blastic lesions. Procedure Note Rachel Parson [facility] - 03/08/2025 CT CHEST OUTSIDE WITH INTERPRETATION OR CONSULT Referring clinician's provided indication for this examination in [facility]:pancreatic cancer TECHNIQUE: Multidetector CT of the chest was performed with intravenous contrast. COMPARISON: None available FINDINGS: Devices/Tubes/Lines: None. Lungs: The central airways are patent. There are scattered calcifiedgranulomas. No suspicious nodules. Pleura: No pleural effusion or pneumothorax. Mediastinum: There are no thyroid nodules. There is mild coronary arterycalcification. The cardiac chambers are within normal limits. There is nopericardial effusion. Patulous esophagus. Lymph Nodes: No enlarged supraclavicular, axillary, mediastinal, or hilarlymph nodes. Upper Abdomen: Limited contrast-enhanced images of the upper abdomen wereobtained. In segment 8 of the liver there is a 8mm lesion with peripheralenhancement as seen on image 78. Adjacent to this there is a 4 mmhypodensity. No focal lesions in the visualized spleen or kidneys. Thepatient is status post cholecystectomy. There is prominence of theextrahepatic common bile duct. Known pancreatic head/uncinate process massis outside the [id number]. Please refer to report of CT abdomen dated1 for additional findings. Chest Wall: No chest wall mass. Bones: There are mild degenerative changes in the visualized spine. Nosuspicious lytic or blastic lesions. 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 Associated mild upstream bile duct dilation. Abutment of the SMV with mild narrowing. * No definite abdominopelvic metastases. * Region of enhancement involving the right gluteus brandon, possibly inflammatory, though warranting attention on follow-up as a mass lesion could appear similar. Narrative [facility] - 03/08/2025 1:[address] ABDOMEN/PELVIS OUTSIDE WITH INTERPRETATION OR CONSULT Referring clinician's provided indication for this examination in Epic: pancreatic cancer TECHNIQUE: CT of the abdomen and pelvis, with intravenous contrast. COMPARISON: MRI ABDOMEN OUTSIDE WITH INTERPRETATION OR CONSULT FINDINGS: Lower Chest: Calcified granulomas in the lung bases. Liver: No focal suspicious lesions. 9 mm segment 8 hemangioma (4:105). Additional punctate segment 8 cyst. Biliary: Mild bile duct dilation upstream to a segment of narrowing of the intrapancreatic segment caused by the below described pancreatic head mass. Spleen: No splenomegaly or focal suspicious lesions. Pancreas: 31 x 27 x 21 mm posterior pancreatic head mass with upstream bile duct dilation, similar to prior MRI. No significant main pancreatic duct dilation, noting accessory duct dominant drainage. Abutment of the upper SMV with mild narrowing. Other vasculature is spared. Adrenal Glands: No nodules. Kidneys/Ureters: No solid masses or hydronephrosis. No obstructing stones. Bowel: No dilation or wall thickening. Colonic diverticulosis. Noninflamed appendix. Peritoneum/Retroperitoneum: No masses, free air, or fluid. Lymph Nodes: No lymphadenopathy. Pelvic Organs/Bladder: No masses. Vessels: No abdominal aortic aneurysm. Bones/Soft Tissues: No suspicious osseous lesions. Tiny fat containing umbilical hernia. Small fat-containing umbilical hernia. Region of enhancement involving the right gluteus brandon (4:566). Procedure Note Deborah Castle MD - 03/08/2025 CT ABDOMEN/PELVIS OUTSIDE WITH INTERPRETATION OR CONSULT Referring clinician's provided indication for this examination in Epic:pancreatic cancer TECHNIQUE: CT of the abdomen and pelvis, with intravenous contrast. COMPARISON: MRI ABDOMEN OUTSIDE WITH INTERPRETATION OR [id number] FINDINGS: Lower Chest: Calcified granulomas in the lung bases. Liver: No focal suspicious lesions. 9 mm segment 8 hemangioma (4:105).Additional punctate segment 8 cyst. Biliary: Mild bile duct dilation upstream to a segment of narrowing of theintrapancreatic segment caused by the below described pancreatic headmass. Spleen: No splenomegaly or focal suspicious lesions. Pancreas: 31 x 27 x 21 mm posterior pancreatic head mass with upstreambile duct dilation, similar to prior MRI. No significant main pancreaticduct dilation, noting accessory duct dominant drainage. Abutment of theupper SMV with mild narrowing. Other vasculature is spared. Adrenal Glands: No nodules. Kidneys/Ureters: No solid masses or hydronephrosis. No obstructingstones. Bowel: No dilation or wall thickening. Colonic diverticulosis. Noninflamedappendix. Peritoneum/Retroperitoneum: No masses, free air, or fluid. Lymph Nodes: No lymphadenopathy. Pelvic Organs/Bladder: No masses. Vessels: No abdominal aortic aneurysm. Bones/Soft Tissues: No suspicious osseous lesions. Tiny fat containingumbilical hernia. Small fat-containing umbilical hernia. Region ofenhancement involving the right gluteus brandon (4:566). 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 Abutment of the SMV with mildnarrowing. * No definite abdominopelvic metastases. * Region of enhancement involving the right gluteus brandon, possiblyinflammatory, though warranting attention on follow-up as a mass lesioncould appear similar. 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 Associated mild upstream bile duct dilation. Abutment of the upper SMV. * No definite abdominopelvic metastases. Narrative [facility] - 03/08/2025 1:43 PM EDT MRI [...] COMPARISON: CT ABDOMEN/PELVIS OUTSIDE WITH INTERPRETATION OR [id number] FINDINGS: Lower Chest: Unremarkable. Liver: No focal [...] OUTSIDE IMAGING W/ INTERPR ETATION Final Result [address] [address] * CT Abdomen/Pelvis Outside with Interpretation or Consult (12/29/2024 12:00 AM EDT) 03/08/2025 1:09 PM EDT Narrative [facility] - 03/08/2025 1:[address] ABDOMEN/PELVIS [...] OUTSIDE IMAGING W/ INTERPR ETATION Final Result [facility] [address] [place] [address] from Last 3 Months Insurance WE[employer] NON NSPG PCP SILVER [employer]ARITY CONNECTORCARE [employer] NON NSPG PCP SILVER CLARITY CONNECTORCARE [employer] NON NSPG PCP SILVER CLARITY CONNECTORCARE [employer] NON NSPG PCP SILVER CLARITY CONNECTORCARE WE[employer] NON NSPG PCP SILVER CLARITY CONNECTORCARE WE[employer] NON NSPG PCP S[employer] [place] [address] Rani COLEMAN [facility] Britney [place] [address] Advance Directives For more information, please contact: [phone] (9AM - 5PM [facility], Saturday-Saturday) * Full Code (Presumed) (Latest Code Status on File) Date Activated Date Inactivated Comments 10/28/2018 9:51 AM 10/28/2018 7:25 PM Care Teams Veneer Clipper Relationship Specialty Start Date End Date Sunnyside, Emilie Way MD [address] [place] [phone] PCP - General Family Medicine 06/03/18 Additional Source Comments The information contained in this document represents components of the legal health record. It is not the complete legal health record.[facility]
[2025-03-16] VITALS (19 sets, daily range): BP systolic 102–136; BP diastolic 67–91; PULSE 47–73; RESP 10–22; TEMP 36–36.6; O2SAT 95–99; BMI 16.7
--- NOTE | ~2025-03-16 | IR_ITS ---
See fluoroscopy IR report. Electronically signed by: Jimmy Pedroza MD 03/30/2025 10:43 AM CAM
--- NOTE | ~2025-03-16 | IR_ITS ---
PROCEDURE: IR INSERTION OF TUNNEL CATHETER/PORT CLINICAL INFORMATION: Pancreatic cancer. Port catheter for chemotherapy.. COMPARISON: None available. TECHNIQUE: Following explaining ultrasound and fluoroscopy-guided placement of a left portacatheter procedure, benefits and risk, a written consent was obtained. Patient was placed supine and preliminary ultrasound imaging was performed through the left neck. An optimal site was selected along the left neck and marked. 1% lidocaine was administered puncture site. Undersurface guidance a singlewall needle was advanced and left jugular vein was punctured just above the clavicle. After obtaining venous return a thin guidewire was advanced through the needle and needle withdrawn. A 5 Macedonian dilator was placed and the entire unit was anchored to the drape with hemostat. Approximately 1 gauze length away from the left neck incision along the left anterior chest wall one percent lidocaine was administered. A small skin incision was performed and trial for placement of port was performed following blunt dissection. Deep to adipose tissue 1% lidocaine was administered from the anterior chest wall incision to the left mid neck incision. A tunneler attached to the port catheter was then tunneled blindly from the lung that the chest wall incision and pulled through the left neck incision. The tunneler was removed and the catheter was sized and accordingly. The port was flushed with saline to confirm patency. At the neck the thin guidewire was removed and a 0.035 J-wire was advanced under fluoroscopy and placed in IVC. The 5 Macedonian catheter was then exchanged for a syringe dilator with peel-away sheath over the guidewire. The guidewire and the dilator was removed and the precise permacatheter was inserted through the peel-away sheath. A single image was obtained documenting position the catheter the port. The pocket along the left anterior chest wall was flushed with antibiotic solution. The anterior chest wall incision over the port was then sutured with absorbable skin and deep subcutaneous soft tissue sutures. Sterile dressing applied postprocedure both the neck and and the chest wall following applying Dermabond. Patient targeted procedure extremely well. All elements of maximal sterile barrier technique followed including use of cap, mask, sterile gown, sterile gloves, a sterile full body drape and hand hygiene. Also followed skin preparation with 2% chlorhexidine for cutaneous antisepsis, and sterile ultrasound preparation with sterile gel and probe cover when applicable. Conscious sedation was utilized during exam and patient monitored by nurse and IR physician. FINDINGS: Preliminary ultrasound imaging there is widely patent left jugular vein. Approximately 6 Macedonian 26 cm long slim port was inserted through a left jugular approach. There were no immediate complications or bleeding seen. IR/IR cvc insert tunnel w prt/fitness services manager IMPRESSION: Successful ultrasound and fluoroscopy-guided placement of a left 6.6 Macedonian 23 seen along the left Port-A-Cath without immediate comp occasions. The PORT is ready to use. Fluoroscopy time: 0.6 minutes. Dose: 1.7 mGy/ cm. Electronically signed by: Jimmy Pedroza MD 03/30/2025 10:42 AM EST
[2025-03-16 08:11] LABS: INTERNATIONAL NORM RATIO 1.0 (0.9-1.1); Prothrombin Time 11.4 SEC (10.9-12.4)
--- NOTE | 2025-03-16 09:37 | PC.NURSE ---
Pt's L sided portacath accessed per hem/oncology request (chemo Saturday) with Rodriguez needle by Dr Pedroza/flushed per protocol; sterile dressing in place
== END 2025-03-16 12:10 | disposition home or self-care (01) ==
PROVIDERS: Radiology Diagnostic Radiology; PCP Family Medicine; Visit Provider Internal Medicine Medical Oncology
DX: Z45.2 Encounter for adjustment and management of vascular access device (principal); C25.9 Malignant neoplasm of pancreas, unspecified; K85.90 Acute pancreatitis without necrosis or infection, unspecified; K21.9 Gastro-esophageal reflux disease without esophagitis; R13.10 Dysphagia, unspecified; I10 Essential (primary) hypertension; Z79.899 Other long term (current) drug therapy; Z90.49 Acquired absence of other specified parts of digestive tract
CPT/HCPCS: 36415; 36561; 76937; 85610; 99152; 99153; C1769; C1788; J0690; J0736; J1642; J1644; J2003; J2250; J3010; J3374

== ENCOUNTER → 2025-03-16 08:19 | Outpatient (BNV) | payer OTHER, SELFPAY | PROVIDERS: PCP Family Medicine; Visit Provider Radiology Diagnostic Radiology | DX: C25.9 Malignant neoplasm of pancreas, unspecified (principal) | CPT/HCPCS: 36561; 76937 ==

== ENCOUNTER 2025-03-22 10:36 | Observation (INO) | payer OTHER, SELFPAY ==
--- OUTSIDE RECORDS SUMMARY | 2025-02-16 04:45 | XMS_ITS | Continuity of Care Document ---
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 Grinding And Spraying Supervisor Name Role Phone Josue MARISCAL, RVT, ANDRE, Manish Unavailable U navailable Allergies, Adverse Reactions, Alerts Substance Reaction Status Criticality PENICILLIN Active No Information Procedures Procedure Date Office/Outpt E&M Established 15 Mins- CT & [place] Duplex Scan-extrem Veins; Comp- CT & [place] Duplex Scan-extrem Veins; Uni/ CT & [place] S Varithena, Single Truncal Vein - CT & [place] Duplex Scan-extrem Veins; Uni/ CT & [place] S PT Did Not Receive Services Endovenous Laser, 1st Vein- CT & [place] [...] Diagnoses Date Provider Providers Copied on Encounter Office/Outpt E&M Established 15 Mins- [place] & [place] [facility], [address], [id number], [place] tel:[phone] CVR - [place] Pruritus, unspecifiedVen ous insufficiency (chronic) (peripheral) Oct-0 5 Josue MARISCAL RVT, RPVI Robert. [address] [place] [address], [place], [place], [id number] , [place]. tel:[phone] Referring Provider: Emilie Way, [address] [place] [address], [place], [address]. tel:[phone] [facility] [place] [facility], [address] [place] [address] [address] [place], [id number], [place] [phone] CVR - [facility] Varicose veins of bilateral lower extremities with pain Oct-0 5 Josue MARISCAL RVT, RPVI Robert. [address] [place] [address], [place], [place], [id number] , [place]. tel: [phone] Referring Provider: Emilie Way, [address] [place] [address], [place], [address]. tel:[phone] [facility], [address] [place] [address] [address] [place], [id number], [place] [phone] CVR - [facility] Encounter for follow-up examination after completed treatment for conditions other than malignant neoplasmChroni c venous hypertension (idiopathic) with other complications of left lower extremity Sep-1 5 Josue MARISCAL RVT, RPVI Robert. [address] [place] [address], [place], [place], [id number] , [place]. tel:[phone] Referring Provider: Emilie Way, [address] [place] [address], [place], [address]. tel:[phone] [facility], [address] [place] [address] Dr [address] [place], [id number], [place] tel:[phone] CVR - [facility] Varicose veins of left lower extremity with other complications Sep-1 5 Josue MARISCAL RVT, RPVI Robert. [address] [place] [address], [place], [place], [id number] , [place]. [phone] Referring Provider: Emilie Way, [address] [place] [address], [place], [address]. tel:[phone] [facility], [address] [place] [address] Dr [address], [id number], [place] tel:[phone] CVR - [facility] Encounter for follow-up examination after completed treatment for conditions other than malignant neoplasmChroni c venous hypertension (idiopathic) with other complications of right lower extremity Sep-0 5 Josue MARISCAL RVT, ANDRE Hammond. [address] [place] [address], [place], [place], [id number] , [place]. [phone] Referring Provider: Emilie Way, [address] [place] [address], [place], [address]. tel:[phone] [facility], [address] [place] [address] Dr [address], [id number], [place] tel:[phone] [facility] No Information Sep-0 5 Josue MARISCAL RVT, ANDRE Hammond. [address] [place] [address], [place], [place], [id number] , [place]. [phone] Referring Provider: Emilie Way, [address] [place] [address], [place], [address]. tel:[phone] [facility], [address] [place] [address] [address], [id number], [place] tel:[phone] [facility] Varicose veins of right lower extremity with other complications Aug-2 5 Josue MARISCAL RVT, RPVI Robert. [address] [place] [address], [place] [address], [place], [place], [id number] , [place]. tel:[phone] Referring Provider: Emilie Way, [address] [place] [address], [place], [address]. tel:[phone] [facility], [address] [place] [address] Dr [address], [id number], [place] tel:[phone] CVR - [facility] No Information 5 Josue MARISCAL RVT, ANDRE Hammond. [address] [facility], [address], [facility] [place], [place], [id number] , [place]. tel:[phone] Offic/outpt E&m Estab 5 Min Trial- Telemedicine CT & [place] [facility], [address] [place] [address] [address] [place], [id number], [place] tel:[phone] CV - [facility] Chronic venous hypertension (idiopathic) with other complications of bilateral lower extremity 5 Josue MARISCAL RVT, ANDRE Hammond. [address] [place] [address], [facility] [place], [place], [id number] , [place]. [phone] Referring Provider: Emilie Way, [address] [facility], [place], [address]. tel:[phone] Offic Cons New/estab Mod 40 Mi- CT & [place] [facility], [address] [place] [address] Dr [address] [place], [id number], [place] tel:[phone] [facility] venous hypertension (idiopathic) without complications of bilateral lower extremityRestl ess legs syndromePrurit us, unspecifiedPai n in left legCramp and spasmLocalized edema 5 Josue MARISCAL RVT, ANDRE Hammond. [address] [facility], [address], [facility] [place], [id number] , [place]. tel:[phone] Referring Provider: Emilie Way, [address] [facility], [place], [address]. tel:[phone] [facility] [place], [address] [place] [address] Dr [address] [place], [id number], [place] tel:[phone] CVR - [place] - [place] Varicose veins of bilateral lower extremities with pain Josue MARISCAL, RVT, RPVI Manish. [address] [facility], [address], [place], [place], [id number] , [place]. tel:[phone] Referring Provider: Emilie [place], [address] [place] [address], [place], [address]. tel:[phone] Family History Family Member Type Diagnosis Age At Onset No Information Payers Payer name Insurance type Covered democrat ID Ramiro gomez(s) [facility] SCO CI [id number] Social History Type Description Quantity Date Captured [...] Type Action Status Goal Diet education completed Goal Diet education completed Referral Ordered: Weight management: Referral to physician timeframe: 3 Months ordered Referral Ordered: Weight management: Referral to physician timeframe: 3 Months ordered History Of Present Illness Encounter Date Complaint History Of Prese nt Illness No Information Functional Status Date Functional Assessmen t No Information Instructions Date Instruction Additional Infor mation Patient education booklet given Related to Venous insufficiency (chronic) (peripheral) Lifestyle education Giving Encouragement to exercise Diet education Compression stocking usage as conservative measure Related to Venous insufficiency (chronic) (peripheral) Patient education booklet given Related to Chronic [...]
[2025-03-22] VITALS (7 sets, daily range): BP systolic 114–148; BP diastolic 79–98; PULSE 69–105; RESP 13–28; TEMP 36.4–37; O2SAT 95–99; BMI 16.4; BMI 16.6
--- NOTE | ~2025-03-22 | CT_ITS ---
EXAMINATION: CT HEAD WITHOUT CONTRAST CLINICAL INFORMATION: Severe headache known pancreatic cancer COMPARISON: September 07, 2024 TECHNIQUE: Contiguous axial imaging was performed from the skull base to vertex without intravenous administration of contrast. This CT examination was performed using dose optimization techniques as appropriate, variously including the following: *Automated exposure control *Adjustment of mA and/or kV according to patient size (this includes techniques or standardized protocols for targeted exams where dose is matched to indication/reason for exam; i.e. extremities or head) *Use of iterative reconstruction technique DLP: 491.66 mGy-cm FINDINGS: No acute cortical disruption in the bony calvarium or the skull base. No acute intracranial hemorrhage, mass effect, midline shift, hydrocephalus or herniation. Morin-white matter differentiation is normal. Posterior cranial fossa contents demonstrated no acute hemorrhage or mass effect. Sellar/suprasellar region demonstrated no gross masses. Craniocervical junction is intact demonstrated a low position of the cerebellar tonsils. No air-fluid levels in the paranasal sinuses. Small retention cyst, right saphenous sinus. Poor pneumatization of the left frontal sinus. Tympanic cavities and mastoid cells are aerated. Pneumatized right petrous apex, congenital. No hematoma in the intraconal or extraconal compartments of the orbits. CT/CT head/brain wo IV con IMPRESSION: No acute fracture, bony calvarium. No acute intracranial hemorrhage. Electronically signed by: Eric Daley MD 03/22/2025 01:[address] [facility]
--- NOTE | ~2025-03-22 | CT_ITS ---
EXAMINATION: CT ABDOMEN AND PELVIS WITH CONTRAST CLINICAL INFORMATION: Distended, vomiting, severe abdominal pain COMPARISON: None available. TECHNIQUE: Multidetector volumetric images were obtained from the superior aspect of the liver through the pubic symphysis following administration 85 mL of Omnipaque 350 intravenous contrast. Sagittal and coronal reformatted images were obtained on the technologist's workstation. Oral contrast: No This CT examination was performed using dose optimization techniques as appropriate, variously including the following: *Automated exposure control *Adjustment of mA and/or kV according to patient size (this includes techniques or standardized protocols for targeted exams where dose is matched to indication/reason for exam; i.e. extremities or head) *Use of iterative reconstruction technique FINDINGS: LUNG BASES: Again seen is a 9 mm calcific granuloma in the posterior basal right lower lobe. There is a 4 mm calcified granuloma in the posterior basal left lower lobe. LIVER, GALLBLADDER, AND BILIARY TREE: The liver is normal in size, shape, and attenuation. No focal hepatic lesion or biliary ductal dilatation is present. There are coarse calcific lesions in the caudate lobe. The gallbladder is surgically absent. There are clips in the gallbladder fossa. There is stable intra and extra hepatic biliary ductal dilation. PANCREAS: Again seen is ill-defined mass in the region of uncinate process measuring 1.2 x 2.3 cm , previously it was similar measuring 1.6 x 2.7 cm. SPLEEN: Unremarkable. ADRENAL GLANDS: Unremarkable. KIDNEYS AND URETERS: The kidneys are normal in size, shape, and attenuation. No hydronephrosis, hydroureter, or calculi seen. No perinephric stranding. BLADDER: Unremarkable. GASTROINTESTINAL TRACT: There is a narrow takeoff of the origin of the SMA measuring 17 degrees. The aorta SMA distance is mildly narrowed measuring 7 mm. The duodenum is fluid distended proximal to the region where it passes between the aorta and SMA. There is moderate to large amount stool in the transverse, descending, sigmoid colon and rectum. There is mild wall thickening in mild luminal narrowing at the rectosigmoid junction. There is mild wall thickening in the descending colon without stranding. Pseudodiverticula are present in the descending and sigmoid colon. ABDOMINAL WALL: Again seen is a very small umbilical hernia containing adipose tissue. There is stable thinning of the linea alba inferior to the umbilicus with mild protrusion of intra-abdominal fat. LYMPH NODES: Normal. VASCULAR: Multifocal vascular calcifications are again seen. PELVIC VISCERA: Unremarkable. OSSEOUS STRUCTURES: Mild disc space narrowing and vacuum phenomenon is present at L4-5. CT/CT abdomen pelvis w IV con IMPRESSION: There is questionable mild thickening of the descending colon and a more focal area of possible thickening at the rectosigmoid junction without clear fat stranding. The significance is uncertain. This could be related to less distention through this area, but other etiologies are not ruled out including infection, ischemia, inflammatory bowel disease, and neoplasm. Again noted is diverticulosis in the descending and sigmoid colon. Again seen is an ill-defined mass in the uncinate region of the pancreas with intrahepatic and extrahepatic biliary ductal dilation concerning for adenocarcinoma. There is a moderate to large amount stool in the colon between the hepatic flexure and rectum. 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 The duodenum is distended and fluid filled proximal to this level. There are calcified granulomas in the lung bases. Fleischner guidelines were followed. Electronically signed by: Rob Arteaga MD 03/22/2025 02:18 PM [facility]
--- NOTE | ~2025-03-22 | CT_ITS ---
EXAMINATION: CT ANGIOGRAM CHEST CLINICAL INFORMATION: Severe pleuritic chest pain. COMPARISON: None available. TECHNIQUE: Multiple axial images were obtained through the chest after the administration of 85 mL of Omnipaque 350 intravenous contrast. Extensive vascular post-processing including two-dimensional and three-dimensional reformatted images were created and reviewed on an independent workstation. This CT examination was performed using dose optimization techniques as appropriate, variously including the following: *Automated exposure control *Adjustment of mA and/or kV according to patient size (this includes techniques or standardized protocols for targeted exams where dose is matched to indication/reason for exam; i.e. extremities or head) *Use of iterative reconstruction technique FINDINGS: QUALITY OF STUDY/CONTRAST BOLUS: Satisfactory. PULMONARY ARTERIES: No evidence of filling defects suggest central or segmental pulmonary emboli. THORACIC AORTA: No aneurysm. LUNG: Trachea and central airway are patent. Mild bibasilar subpleural atelectasis. No dense consolidation. Redemonstrated multiple calcified granulomas, largest in the right lower lobe, stable from previous. No suspicious nodules are seen. PLEURA: No pleural effusion or pneumothorax. MEDIASTINUM: Normal heart size. No pericardial effusion. No hilar or mediastinal lymphadenopathy. No findings to suggest right heart strain. Redemonstrated air-fluid level in the mid thoracic esophagus. CORONARY ARTERY CALCIFICATION: Present CHEST WALL/AXILLA: No axillary or internal mammary lymphadenopathy. OSSEOUS STRUCTURES: Mild spondylosis. No acute fracture or suspicious bony lesion. UPPER ABDOMEN: See CT chest findings CT/CT angio chest PE protocol IMPRESSION: 1. No evidence of filling defects to suggest central or subsegmental pulmonary emboli. 2. Redemonstrated air-fluid level in the mid thoracic esophagus, which can be associated with gastroesophageal reflux disease or esophageal dysmotility. 3. Bibasilar atelectasis. 4. Additional findings and details as above. VTE: negative IMPRESSION: Unremarkable examination. Fleischner guidelines were followed. Electronically signed by: Huseyin Cerna MD 03/22/2025 02:12 PM [facility]
--- NOTE | 2025-03-22 10:46 | ED.ABDPAIN ---
HPI - Abdominal Pain General Chief Complaint: General Medical Stated Complaint: abd pain, N/V/ CP Time Seen by Provider: 03/22/25 10:44 Source: patient and old records reviewed Mode of arrival: wheelchair Limitations: no limitations History of Present Illness ED Provider: DEO PARKER narrative: 55-year-old patient with past medical history of pancreatic adenocarcinoma diagnosed in January of 2025, GERD, pancreatitis, depression, hyperlipidemia, hypertension, currently being followed at our Oncology Department with plan to proceed with 3 cycles of chemotherapy to shrink the tumor away from the superior mesenteric vein proceed with Whipple after with a [facility]. He was started just last Saturday. On Saturday he developed diffuse abdominal pain, nausea, vomiting, he has no diarrhea feels constipated but did have small stool and gas, no fevers no chills, has diffuse chest pressure and shortness of breath. He was referred down by Oncology. He has not ate or drank anything since Saturday. He denies any falls or trauma he does have severe headache as well. MD elicited complaint: abdominal pain (Headache, chest pain) Pertinent past history: other Onset (ago): day(s) (Started Saturday) Pain Consistency: constant Location: diffuse Severity: severe Quality: aching Radiation: none Migration to: no migration Exacerbating factors: eating and movement Relieving factors: nothing Context: other Associated symptoms: nausea, vomiting and constipation Related Data Home Medications ?Medication ?Instructions ?Recorded ?Confirmed cabotegravir 600 mg/3 mL (200 600 mg IM [id number] 02/18/25 03/11/25 mg/mL) IM suspension,extended release (Apretude) cholecalciferol (vitamin D3) 1,250 1,250 mcg PO MO 02/18/25 03/11/25 mcg (50,000 unit) capsule linaclotide 290 mcg capsule 290 mcg PO DAILY 02/18/25 03/11/25 (Linzess) bhavnv-ihjnhdfl-mejdysf (pork) 2 cap PO BID 02/18/25 03/11/25 3,000-9,500-15,000 unit capsule,del rel (Creon) Previous Rx's ?Medication ?Instructions ?Recorded Oxygen Home Use #3 ea 09/24/24 magnesium oxide 400 mg (241.3 mg 400 mg PO BEDTIME 30 days #30 tabs 09/25/24 magnesium) tablet galcanezumab-gnlm 300 mg/3 mL (100 300 mg (3 mL) subcut QMONTH 30 12/27/24 mg/mL x 3) subcutaneous syringe days #3 mL (Emgality) famotidine 40 mg tablet (Pepcid) 40 mg PO BEDTIME #30 tabs 01/08/25 bisacodyl 5 mg tablet,delayed 10 mg (2 x 5 mg) PO BEDTIME 30 01/28/25 release (Dulcolax (bisacodyl)) days #60 tabs dexamethasone 4 mg tablet 4 mg PO BID #30 tabs 03/11/25 lidocaine 4 % topical cream 1 appl topical DIRECTED #15 03/11/25 grams ondansetron 8 mg disintegrating 8 mg PO Q8H nausea and vomiting 03/11/25 tablet #30 tabs oxycodone 5 mg capsule 5 mg PO Q8H PRN Severe Pain (Scale 03/11/25 Score 7-10) #30 caps lidocaine 5 % topical cream 1 appl topical BID #90 grams 03/15/25 food supplemt, lactose-reduced 1 ea PO BID #48 ea 03/16/25 (Ensure oral liquid) Allergies Allergy/AdvReac Type Severity Reaction Status Date / Time black pepper Allergy Severe Anaphylaxis Verified 03/22/25 11:09 Penicillins (PENICILLINS) Allergy Intermediate HIVES,SWELL Verified 03/22/25 11:09 ING sumatriptan (SUMATRIPTAN) AdvReac Severe PT STATES Verified 03/22/25 11:09 HEART ATTACK Review of Systems Review of Systems Constitutional : No Fever, No Chills, positive Fatigue ENT/Mouth : No sore throat, No Rhinorrhea Eyes: No Eye Pain, No Swelling, No Redness Cardiovascular : Positive Chest Pain, positive SOB, pos Dyspnea on Exertion Respiratory : No Cough, No Sputum Gastrointestinal : Bing's Nausea, Bing's Vomiting, No Diarrhea, positive abdominal Pain Genitourinary : No Dysuria, No Urinary Frequency, No Hematuria, Musculoskeletal : No joint pain, positive Myalgias, No Joint Swelling Skin : No Skin Lesions, No rash Neuro : No Weakness, No Numbness, No Dizziness, positive Headache All other systems reviewed and are negative [facility] Past Medical History Attestation statement: The following information was validated with the patient. Source: old records reviewed Medical History Elevated LFTs Pancreatic mass Acute pancreatitis Pancreatic mass Upper abdominal pain Erosive esophagitis Abdominal pain Sleep difficulties Vomiting LEE (dyspnea on exertion) Arthritis Occipital neuralgia of left side New onset headache Diverticulosis of colon Chronic, continuous use of opioids Chronic GERD Palpitations Hypotension History of palpitations Dysphagia Disc degeneration, lumbar Spondylosis of lumbar spine Depression Past heart attack Hyperlipemia Erosive osteoarthritis of hands, bilateral GERD (gastroesophageal reflux disease) Hypertension Surgical History History of cholecystectomy Hx of colonoscopy History of esophagogastroduodenoscopy (EGD) H/O bilateral mastectomy H/O: hysterectomy Family History Family History Mother Hypertension Breast cancer Maternal Grandmother Myocardial infarct Skin cancer Sister Heart problem Breast cancer Family/Other Esophageal cancer Social History Social History Household Members: Family Housing: Apartment Are you a primary transition of care specialist to a significant other at home: No Do you presently have visiting nurse or other home services: No Alcohol intake: never Patient Tobacco Use Status: Former Tobacco user Smoked in Last 30 Days: No Use of substances other than those prescribed or required for medical reasons: No Substance Use Type: Marijuana Advance Directives: No Advance Directives Information Provided: No Do you have a plan to hurt others: No Plan Patient : No service: No Physical Exam ED Vital Signs: Vital Signs - 24 hr 03/22/25 10:51 03/22/25 11:07 03/22/25 11:13 Temperature 98.6 F 98.6 F Pulse Rate 93 105 H Respiratory Rate 28 H 23 H 25 H Blood Pressure 148/98 H 136/88 Pulse Oximetry 99 99 Oxygen Delivery Method Room Air Room Air 03/22/25 11:16 03/22/25 13:41 Temperature Pulse Rate 96 80 Respiratory Rate 22 H 13 Blood Pressure 130/92 H 126/85 Pulse Oximetry 96 97 Oxygen Delivery Method Room Air Room Air BMI result Body Mass Index 16.4 Appearance: Alert. Oriented X3. Appears very uncomfortable mild acute distress, much older than stated age , has temporal wasting Eyes: Pupils equal, round and reactive to light. ENT: Pharynx dry mucous membranes Neck: Normal inspection. Neck supple. CVS: Tachycardic heart rate and rhythm. Pulses normal. Respiratory: No respiratory distress. Breath sounds diminished in both bases Abdomen: Soft but distended with diffuse abdominal tenderness to palpation no rebound Skin: Skin warm and dry. Pale skin color. Normal skin turgor. Extremities: No lower extremity edema. Neuro: Oriented X 3. No motor deficit. No sensory deficit. CN2-12 intact Course Course Course Narrative: 2:58 PM 03/22/2025 (DEO WEINSTEIN): Still has abdominal pain but does feel better at this time we will admit for intractable abdominal pain Medical Decision Making Medical Decision Making [facility] Narrative: 55-year-old patient with past medical history of pancreatic adenocarcinoma diagnosed in January of 2025, GERD, pancreatitis, depression, hyperlipidemia, hypertension who is status post initiation of 1st round of chemotherapy starting last Saturday now presenting with diffuse pain in the head, chest, abdomen. He also has nausea vomiting and overall is feeling weak and dehydrated. I will add [place] labs, lactic acid, cultures. Given his known malignancy and reports severe pain I am going to obtain CT head, PE study of the chest, CT abdomen. I have started him on IV fluids as well as IV Dilaudid for pain Differential Diagnosis Differential Diagnoses: The differential diagnosis associated with the presentation includes SEOKU, anemia, pulmonary embolus, pleural effusion, worsening malignancy, post chemo illness Admission/Observation Consideration of admission/observation: Escalation of care including admission/observation considered will admit for pain control, IVF Consult Healthcare Provider Management of the patient was discussed with: Hospitalist (will admit) Lab Data [facility] Lab Attestation statement: I reviewed the patient's lab results. 03/22/25 11:26 03/22/25 11:26 Labs: Lab Results 03/22/25 03/22/25 Range/Units 11: 13:42 WBC 8.5 (4.8-10.8) X10*3/uL RBC 5.70 H D (4.20-5.50) X10*6/uL Hgb 16.8 H D (12.0-16.0) g/dl Hct 48.9 H (37.0-47.0) % MCV 85.8 (80.0-98.0) fL MCH 29.5 (27.0-33.0) pg MCHC 34.4 (31.0-35.0) g/dl RDW 13.3 (11.0-16.0) % Plt Count 189 D (160-400) X10*3/uL MPV 9.9 (9.4-12.3) fL Immature Gran % (Auto) 0.5 H (0.0-0.4) % Neut % (Auto) 66.1 (45-73) % Lymph % (Auto) 30.9 (20-40) % White % (Auto) 1.9 L (2-11) % Eos % (Auto) 0.4 (0-4) % Baso % (Auto) 0.2 (0-2) % Lymph # (Auto) 2.6 (1.2-4.9) X10*3/uL White # (Auto) 0.2 (0.1-1.2) X10*3/uL Eos # (Auto) 0.0 (0.0-0.4) X10*3/uL Baso # (Auto) 0.0 (0.0-0.2) X10*3/uL Abs Immat Gran (auto) 0.04 H (0.00-0.03) X10*3/uL Absolute Neuts (auto) 5.6 (2.0-8.3) x10*3/uL Absolute Nucleated RBC 0.000 (0.0-0.012) X10*3/uL Nucleated RBC % (auto) 0.0 (0.0-0.2) /100WBC Sodium 137 (135-145) mmol/L Potassium 3.8 (3.3-5.1) mmol/L Chloride 106 (96-108) mmol/L Carbon Dioxide 21 L (22-29) mmol/L Anion Gap 14 (12-20) BUN 12 (9-16) mg/dL Creatinine 0.68 (0.5-1.4) mg/dL Estim Creat Clear Calc 65.0 Estimated GFR > 60 Random Glucose 111 (60-115) mg/dL Lactic Acid 1.6 (0.5-2.0) mmol/L Calcium 9.7 D (8.4-10.2) mg/dL Magnesium 2.1 (1.6-2.6) mg/dL Total Bilirubin 0.8 (0.0-1.0) mg/dL Direct Bilirubin 0.2 (0.0-0.5) mg/dL AST 30 (5-31) U/L ALT 33 H (0-31) U/L Alkaline Phosphatase 100 (39-117) U/L Troponin I High Sens 3.2 (<3.5-17.0) ng/L Total Protein 7.8 (6.5-8.0) g/dL Albumin 4.5 (3.5-5.0) g/dL Lipase 44 (8-78) U/L Urine Color Yellow Urine Appearance Clear Urine pH 7.5 (5.0-9.0) Ur Specific [place] 1.010 (1.005-1.025) Urine Protein Negative (Neg-Trace) mg/dL Urine Glucose (UA) Negative (Negative) mg/dL Urine Ketones Negative (Negative) mg/dL Urine Blood Negative (Negative) Urine Nitrite Negative (Negative) Ur Leukocyte Esterase Trace H (Negative) Urine RBC 0-2 (0-2) /HPF Urine WBC 0-5 (0-5) /HPF Ur Squamous Epith Cells 3-5 (0-2) /HPF Urine Bacteria None Seen (None Seen) Hyaline Casts 0-2 (0-2) /LPF Influenza Type A (PCR) NEGATIVE (Negative) Influenza Type B (PCR) NEGATIVE (Negative) RSV RNA Qual (PCR) NEGATIVE (Negative) SARS-CoV-2 RNA (RT-PCR) NEGATIVE (Negative) Independent Interpretation I performed an independent interpretation of an: EKG and CT Scan (no ICH, no PE, abdomen shows again mass and no obstruction) Interpretation: Rate: 110 Rhythm: Sinus tachycardia [place]: Normal axis Normal P waves. Normal KAM. Normal QRS complex. ST T wave : Normal no ST-elevation qTC: 438 prior studies: No acute ischemia The study has been interpreted contemporaneously by me. . Radiology Impression Discussion of test interpretation with radiology: I have reviewed the radiologist's reading. Independent Historian Clinical information obtained from an independent historian. History obtained from or confirmed by: Other (Family) External Record Review External record reviewed: Inpatient record, Outpatient record, Prior outpatient labs and Prior outpatient radiology Medications Administered Discontinued Medications Generic Name Dose Route Start Last Admin Trade Name Freq PRN Reason Stop Dose Admin Hydromorphone HCl 1 mg 03/22/25 10:50 03/22/25 11:13 Hydromorphone Hcl 1 Mg/Ml Syringe IVPUSH 03/22/25 10:51 1 mg ONCE ONE Administration Protocol Lactated Ringer's 1,000 mls @ 999 mls/hr 03/22/25 10:50 03/22/25 13:44 Lr IV 03/22/25 11:50 Infused .Q1H1M ONE Infusion Iohexol 100 ml 03/22/25 13:14 03/22/25 13:15 Iohexol 350 Mg/Ml 100 Ml Infus..Btl IV 03/22/25 13:15 85 ml ONCE ONE Administration Prochlorperazine Edisylate 10 mg 03/22/25 10:50 03/22/25 11:08 Prochlorperazine Edisylate 10 Mg/2 Ml Vial IVPUSH 03/22/25 10:51 10 mg ONCE ONE Administration Critical Care Time Critical Care Time Critical Care Time: Yes Total Critical Care Time: 40 Attestation: Time is exclusive of separately billable procedures. Time includes: direct patient care, patient reassessment, coordination of patient care, interpretation of data (laboratory data, pulse oximetry, CT scan), review of patient's medical records, medical consultation and documentation of patient care. P repeat IV Dilaudid with improvement in pain Procedures excluded from critical care time:electrocardiography. I attest to this time spent taking care of the patient Discharge Plan Discharge Clinical Impression: Acute dehydration, Generalized headaches, Atypical chest pain, Intractable abdominal pain Nausea & vomiting Qualifiers: Vomiting type: unspecified Qualified Code(s): R11.2 - Nausea with vomiting, unspecified Patient Disposition: Admitted As Inpatient Print Language: [place]
--- NOTE | 2025-03-22 10:50 | ECG_ITS ---
Test Reason : CHEST PAIN Blood Pressure : */* mmHG Vent. Rate : 110 BPM Atrial Rate : 110 BPM P-R Int : 126 ms QRS Dur : 66 ms QT Int : 324 ms P-R-T Axes : 66 65 27 degrees QTcB Int : 438 ms Sinus tachycardia Otherwise normal ECG When compared with ECG of 14-Jan-2025 15:47, Vent. rate has increased by 54 bpm Referred By: Virginia Monroe Electronically Signed By: DAI MCCULLOUGH MD
[2025-03-22] MEDS: Lactated Ringers 1,000 ML 999 ML IV (11:14)
[2025-03-22 11:39] LABS: MANUAL DIFF FLAG NO
[2025-03-22 11:46] LABS: Hematocrit 48.9 % (37.0-47.0); Hemoglobin 16.8 g/dl (12.0-16.0); Imm Gran Abs Auto 0.04 X10*3/uL (0.00-0.03); Imm Gran Pct Auto 0.5 % (0.0-0.4); Lymphocytes Absolute Auto 2.6 X10*3/uL (1.2-4.9); Mean Corpuscular HGB Conc 34.4 g/dl (31.0-35.0); Mean Corpuscular Hemoglobin 29.5 pg (27.0-33.0); Mean Corpuscular Volume 85.8 fL (80.0-98.0); NRBC Abs Auto 0.000 X10*3/uL (0.0-0.012); NRBC Pct Auto 0.0 /100WBC (0.0-0.2); Platelet Count 189 X10*3/uL (160-400); Red Blood Count 5.70 X10*6/uL (4.20-5.50); White Blood Count 8.5 X10*3/uL (4.8-10.8)
[2025-03-22 11:59] LABS: Alanine Aminotransferase 33 U/L (0-31); Albumin Level 4.5 g/dL (3.5-5.0); Alkaline Phosphatase 100 U/L (39-117); Anion Gap 14 (12-20); Aspartate Amino Transferase 30 U/L (5-31); Blood Urea Nitrogen 12 mg/dL (9-16); Calcium 9.7 mg/dL (8.4-10.2); Carbon Dioxide 21 mmol/L (22-29); Chloride 106 mmol/L (96-108); Creatinine Clr Calc Pharmacy 65.0; Estimated Glomerular Filt Rate > 60; Lipase 44 U/L (8-78); Magnesium 2.1 mg/dL (1.6-2.6); Potassium 3.8 mmol/L (3.3-5.1); Sodium 137 mmol/L (135-145); Total Protein 7.8 g/dL (6.5-8.0)
[2025-03-22 12:06] LABS: Troponin-I High Sensitivity 3.2 ng/L (<3.5-17.0)
[2025-03-22 12:22] LABS: Resp Syncy Virus RNA Qual PCR NEGATIVE (Negative); SARS COV2 PCR INHOUSE NEGATIVE (Negative)
[2025-03-22] MEDS: iohexoL 350 MG/ML 100 ML INFUS..BTL IV (13:15)
--- OUTSIDE RECORDS SUMMARY | 2025-03-22 13:54 | XMS_ITS | Encounter Summary ---
Author Organization [facility] Address [address] [place] [id number] Phone Care Team Providers Care General Purchasing Agent Name Role Phone Emilie Davis MD Primary Care Provi baldomero Encounter Details Date Type Department Care Team (Late st Contact Info) Description 10/28/2018 Procedure Pass OR Admitting Dept - Virtual Department [address] [place] [address] Social History Tobacco Use Types Packs/Day Years [...] on filedocumented in this encounter Care Teams General Purchasing Agent Relationship Specialty Start Date End Date Emilie Davis MD [address] [place] [address] PCP - General Family Medicine 06/03/18 documented as of this encounter Additional Source Comments The information contained in this document represents components of the legal health record. It is not the complete legal health record.[facility]
--- OUTSIDE RECORDS SUMMARY | 2025-03-22 13:54 | XMS_ITS | Encounter Summary ---
Author Organization [employer] Address [address] [place] [address] Care Team Providers Care Commercial Loan Assistant Name Role Phone Emilie Davis MD Primary Care Provider +1- [phone] [place] Unavailable Fred Castanon Unavailable Ele Mar MD Unavailable Encounter Details Date Type Department Care Team (Late st Contact Info) Description 03/22/2025 Orders Only GENERIC EXTERNAL DATA DEPARTMENT Provider, [...] Answer Date Recorded Patient Health Questionnaire-9 Score 9 03/03/2025 Patient Health Questionnaire-9 Score 9 03/03/2025 Last PHQ-9: Questionnaire Data Not on file [...] got money to buy more: Never True 03/03/2025 Within the past 12 months,th e food [...] shut off services in your home? No 03/03/2025 Depression Answer Date Recorded Patient Health Questionnaire-2 Score 4 03/03/2025 Internet Access Answer Date Recorded Internet Access Q1 No 03/03/2025 Internet Access Q2 I do not want or need it 02/11 Comments Unknown Sex and Gender Information Value Date Recorded Sex Assigned at Female 03/12/2022 10:32 AM EDT Legal Sex Male 10:32 AM EDT Gender Identity Transgender Male 03/12/2022 10:3 2 AM EDT Sexual Orientation Choose not to disclose 2021 10:32 AM EDT Occupation Industry Job Start Date Job End Date [employer] Not on file Not on file Not on file documented as of this encounter Plan of Treatment Upcoming Encounters Date Type Department Care Team (Late st Contact Info) Description 03/24/2025 11:00 AM EST Clinical Support [facility] [address] [place] [address] Patrizia Albrecht RN [address] [place] [address] 03/31/2025 10:15 AM EST Telemedicine [facility] [address] [place] [address] Emilie Davis MD [address] [place] [address] 06/04/2025 3:00 PM EST Office Visit [facility] [address] [place] [address] Merissa Donis, GINA [address] [place] [address] documented as of this encounter Procedures Procedure Name Priority Date/Time Associated Diagnosis Comments CT HEAD WO CONTRAST Routine 03/22/2025 1 :03 PM EST HIGH SENSITIVITY TROPONIN I Routine 03/22/2025 11:26 AM EST SARS COV2/INFLUENZA A/B AND RSV RNA QL NAAT Routine 03/22/2025 11:26 AM EST CBC WITH AUTO DIFFERENTIAL Routine 03/22/2025 11:26 AM EST MAGNESIUM Routine 03/22/2025 11:26 AM EST LIPASE Routine 03/22/2025 11:26 AM EST LACTIC ACID Routine 03/22/2025 11:26 AM EST HEPATIC FUNCTION PANEL Routine 03/22/2025 11:26 AM EST BASIC METABOLIC PANEL Routine 03/22/2025 11:26 AM EST documented in this encounter Results * CT Head w/o Contrast (03/22/2025 1:03 PM EST) Anatomical Region Laterality Modality Head, Neck Computed Tomogra phy 03/22/2025 1:03 PM EST Narrative 03/22/2025 1:51 PM EST [place] [address] CT Scan Report Signed Patient: Harriet Valdez MR#: [id number] : 1970 Acct:[id number] Age/Sex: 55 / F ADM Date: 03/22/25 Loc: .ED Attending Dr: Ordering Physician: Virginia Monroe DO Date of Service: 03/22/25 Procedure(s): CT head/brain wo IV con Accession Number(s): [id number] cc: Emilie Davis MD; Virginia Monroe DO Report Number: [id number]: Total DLP = 496.00 mGy-cm Reason for Exam: Severe headache known pancreatic cancer EXAMINATION: CT HEAD WITHOUT CONTRAST CLINICAL INFORMATION: Severe headache known pancreatic cancer COMPARISON: September 07, 2024 TECHNIQUE: Contiguous axial imaging was performed from [...] head) *Use of iterative reconstruction technique DLP: 491.66 mGy-cm FINDINGS: No acute cortical disruption in the bony calvarium or the skull base. No acute intracranial hemorrhage, mass effect, midline shift, hydrocephalus or herniation. Morin-white matter differentiation is normal. Posterior cranial fossa contents demonstrated no acute hemorrhage or mass effect. Sellar/suprasellar region demonstrated no gross masses. Craniocervical junction is intact demonstrated a low position of the cerebellar tonsils. No air-fluid levels in the paranasal sinuses. Small retention cyst, right saphenous sinus. Poor pneumatization of the left frontal sinus. Tympanic cavities and mastoid cells are aerated. Pneumatized right petrous apex, congenital. No hematoma in the intraconal or extraconal compartments of the orbits. CT/CT head/brain wo IV con IMPRESSION: No acute fracture, bony calvarium. No acute intracranial hemorrhage. Electronically signed by: Eric Daley MD 03/22/2025 01:48 PM [facility] Dictated By: Eric Maki MD Signed By: <Electronically signed by Eric Irene MD in OV> 03/22/25 1348 DD/ 1303 TD/TT: 03/22/25 1341 Director Of Convention Services: Procedure Note Donotuseinterpreter, Image - 03/22/[address] [place] [address] [address] Scan Report Signed Patient: Harriet ValdezMR#: [id number] : 1970Acct:[id number] Age/Sex: 55 / FADM Date: 03/22/25 Loc: HO.ED Attending Dr: Ordering Physician: Virginia Monroe DO Date of Service: 03/22/25 Procedure(s): CT head/brain wo IV con Accession Number(s): [id number] cc: Emilie Davis MD; Virginia Monroe DO Report Number: [id number]: Total DLP = 496.00 mGy-cm Reason for Exam: Severe headache known pancreatic cancer EXAMINATION: CT HEAD WITHOUT CONTRAST CLINICAL INFORMATION: Severe headache known pancreatic cancer COMPARISON: September 07, 2024 TECHNIQUE: Contiguous axial imaging was performed from [...] head) *Use of iterative reconstruction technique DLP: 491.66 mGy-cm FINDINGS: No acute cortical disruption in the bony calvarium or the skull base. No acute intracranial hemorrhage, mass effect, midline shift, hydrocephalus or herniation. Morin-white matter differentiation is normal. Posterior cranial fossa contents demonstrated no acute hemorrhage or mass effect. Sellar/suprasellar region demonstrated no gross masses. Craniocervical junction is intact demonstrated a low position of the cerebellar tonsils. No air-fluid levels in the paranasal sinuses. Small retention cyst, right saphenous sinus. Poor pneumatization of the left frontal sinus. Tympanic cavities and mastoid cells are aerated. Pneumatized right petrous apex, congenital. No hematoma in the intraconal or extraconal compartments of the orbits. CT/CT head/brain wo IV con IMPRESSION: No acute fracture, bony calvarium. No acute intracranial hemorrhage. Electronically signed by: Eric Daley MD 03/22/2025 01:48 PM EST Dictated By: Eric Maki MD Signed By: <Electronically signed by Eric Irene MDin OV> 03/22/25 1348 DD/ 1303 TD/TT: 03/22/25 1341 Director Of Convention Services: [facility] External Provider IMG CT PROCEDURES Edited Result - Final * SARS-CoV-2 RNA, Influenza A/B, and RSV RNA, Ql NAAT (03/22/2025 11:26 AM EST) Influenza A PCR NEGATIVE Negative [facility] Influenza B PCR NEGATIVE Negative [facility] Resp Syncy Virus RNA Qual PCR NEGATIVE Negative [facility] SARS COV2 PCR NEGATIVE Negative [facility] Comment:All test results mus t be [...] use by authorized laboratories.Testing performed on the [employer] GeneXpert utilizingreal-time RT-PCR.All SARS CoV2 and positive influenza A/B results arereported to [facility]. 03/22/2025 11:2 6 AM EST 03/22/2025 11:37 AM EST Generic External Data Provider LAB MICROBIOLOGY - GENERAL ORDERABLES Final Result Performing Organization Address [facility]/ZIP Co de Phone Number [facility] [address] [place] [phone] * High Sensitivity Troponin I (03/22/2025 11:26 AM EST) TROPONIN I HIGH SENSITIVITY 3.2 <3.5 - 17.0 ng/L [facility] Comment:The [place] high sens itivity Troponin-I results should beused in conjunction with other diagnostic information suchas ECG, clinical observations and information, and patientsymptoms to aid in the diagnosis of [place]. 03/22/2025 11:2 6 AM EST 03/22/2025 11:37 AM EST Generic External Data Provider LAB BLOOD ORDERAB LES Final Result Performing Organization Address [facility]/ZIP Co de Phone Number [facility] [address] [place] [phone] * Lipase (03/22/2025 11:26 AM EST) Lipase 44 8 - 78 U/L [facility] 03/22/2025 11:2 6 AM EST 03/22/2025 11:37 AM EST Generic External Data Provider LAB BLOOD ORDERAB LES Final Result Performing Organization Address [facility] de Phone Number [facility] [address] [place] [phone] * Magnesium (03/22/2025 11:26 AM EST) [facility] Magnesium 2.1 1.6 - 2.6 mg/dL [facility] 03/22/2025 11:2 6 AM EST 03/22/2025 11:37 AM EST [employer] External Data Provider LAB BLOOD ORDERAB LES Final Result Performing Organization Address [facility] de Phone Number [facility] [address] [place] [phone] * (ABNORMAL) Basic Metabolic Panel (03/22/2025 11:26 AM EST) [facility] Sodium 137 135 - 145 mmol/L [facility] Potassium 3.8 3.3 - 5.1 mmol/L [facility] Chloride 106 96 - 108 mmol/L [facility] Carbon Dioxide 21(L) 22 - 29 mmol/L [facility] Anion Gap 14 12 - 20 [facility] Urea Nitrogen (BUN) 12 9 - 16 mg/dL [facility] Creatinine, Serum 0.68 0.5 - 1.4 mg/dL [facility] Creatinine Clr Calc Pharmacy 65.0 [facility] Comment:Provided height and weight: 165.1 cm,44.6 kg.eGFR (calculated from the MDRD study equation) and eCrCl(calculated from the Cockcroft-Gault equation) are based ondifferent parameters and may not yield comparable results.If eCrCl result is absurd, please check patient'sheight/weight. Estimated Glomerular Filt Rate >60 [facility] Comment:Chronic Kidney Disea se: Estimated GFR < 60 mL/min/1.17a1Lsjjxz Kidney Disease: Estimated GFR < 15 mL/min/1.73m2 Glucose 111 60 - 115 mg/dL [facility] Calcium 9.7 8.4 - 10.2 mg/dL [facility] 03/22/2025 11:2 6 AM EST 03/22/2025 11:37 AM EST Generic External Data Provider LAB BLOOD ORDERAB LES Final Result Performing Organization Address [facility] Co de Phone Number [facility] [address] [place] [phone] * (ABNORMAL) Hepatic Function Panel (03/22/2025 11:26 AM EST) Bilirubin, Total 0.8 0.0 - 1.0 mg/dL [facility] Bilirubin, Direct 0.2 0.0 - 0.5 mg/dL [facility] Aspartate Amino Transferase 30 5 - 31 U/L [facility] Alanine Aminotransferase 33(H) 0 - 31 U/L [facility] Total Protein 7.8 6.5 - 8.0 g/dL [facility] Albumin Level 4.5 3.5 - 5.0 g/dL [facility] Alkaline Phosphatase 100 39 - 117 U/L [facility] 03/22/2025 11:2 6 AM EST 03/22/2025 11:37 AM EST Generic External Data Provider LAB BLOOD ORDERAB LES Final Result Performing Organization Address [facility] Co de Phone Number [facility] [address] [place] [phone] * Lactic Acid (03/22/2025 11:26 AM EST) Lactic Acid 1.6 0.5 - 2.0 mmol/L [facility] 03/22/2025 11:2 6 AM EST 03/22/2025 11:37 AM EST us Generic External Data Provider LAB BLOOD ORDERAB LES Final Result [facility] [address] [place], [place] [phone] * (ABNORMAL) CBC auto differential (03/22/2025 11:26 AM EST) White Blood Count 8.5 4.8 - 10.8 X10*3/uL [facility] Red Blood Count 5.70(H) 4.20 - 5.50 X10*6/uL [facility] Hemoglobin 16.8(H) 12.0 - 16.0 g/dl [facility] Hematocrit 48.9(H) 37.0 - 47.0 % [facility] Mean Corpuscular Volume 85.8 80.0 - 98.0 fL [facility] Mean Corpuscular Hemoglobin 29.5 27.0 - 33.0 pg [facility] Mean Corpuscular HGB Conc 34.4 31.0 - 35.0 g/dl [facility] Red Cell Distribution Width 13.3 11.0 - 16.0 % [facility] Platelet Count 189 160 - 400 X10*3/uL [facility] Mean Platelet Volume 9.9 9.4 - 12.3 fL [facility] Neutrophils Percent Auto 66.1 45 - 73 % [facility] Imm Gran Pct Auto 0.5(H) 0.0 - 0.4 % [facility] Lymphocytes Percent Auto 30.9 20 - 40 % [facility] Monocytes Percent Auto 1.9(L) 2 - 11 % [facility] Eosinophils Percent Auto 0.4 0 - 4 % [facility] Basophils Percent Auto 0.2 0 - 2 % [facility] NRBC Pct Auto 0.0 0.0 - 0.2 /100WBC [facility] Neutrophils Absolute Auto 5.6 2.0 - 8.3 x10*3/uL [facility] Imm Gran Abs Auto 0.04(H) 0.00 - 0.03 X10*3/uL [facility] Lymphocytes Absolute Auto 2.6 1.2 - 4.9 X10*3/uL [facility] Monocytes Absolute Auto 0.2 0.1 - 1.2 X10*3/uL [facility] Eosinophils Absolute Auto 0.0 0.0 - 0.4 X10*3/uL [facility] Basophils Absolute Auto 0.0 0.0 - 0.2 X10*3/uL [facility] NRBC Abs Auto 0.000 0.0 - 0.012 X10*3/uL [facility] 03/22/2025 11:2 6 AM EST 03/22/2025 11:37 AM EST us Generic External Data Provider LAB BLOOD ORDERAB LES Final Result Performing Organization Address City/State/[facility] Co de Phone Number [facility] [address] [place] [phone] documented in this encounter Visit Diagnoses Not on filedocumented in this encounter Additional Health Concerns Assessment Noted Time PHQ-9 Depression Total Score: 9 03/03/20 25 4:53 PM EDT documented as of this encounter Care Teams Commercial Loan Assistant Relationship Specialty Start Date End Date Emilei Davis MD [address] [place] [address] PCP - General Family Medicine 05/13/18August [address] [place] [address] Gastroenterology 05/26/24 Fred Castanon [address] [place] [address] Cardiology 07/21/24 Ele Mar MD [address] [place] [address] Hematology and Oncology 02/22/25 Marina Brown MD Rheumatology 02/10/25 Costa Miller MD Attending Hepatobiliary & Pancreatic Surgeon Division of Surgical Oncology [facility] Surgical Oncology 03/11/25 documented as of this encounter
--- OUTSIDE RECORDS SUMMARY | 2025-03-22 13:54 | XMS_ITS | Encounter Summary ---
Author Organization [employer] Address [address] [place] [address] Care Team Providers Care Maintenance Engineer Name Role Phone Emilie Davis MD Primary Care Provider [phone] Morales Echavarria Unavailable Unavailable August Unavailable Fred Castanon Unavailable Ele Mar MD Unavailable [phone] Reason for Visit * Reason Onset Date Comments Referral 07/20/2024 Encounter Details Date Type Department Care Team (Late st Contact Info) Description 07/20/2024 Telephone [facility] [address] [place], [place] [phone] Eimlie Davis MD [address] [place] [address] Referral Social History Tobacco Use Types Packs/Day [...] the past 12 months, has t he [employer] gas, oil or water company threatened to [...] 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 Contact pt at [phone] documented in this encounter Plan of Treatment Upcoming Encounters Date Type Department Care Team (Late st Contact Info) Description 03/24/2025 11:00 AM EST Clinical Support [facility] [address] [place] [address] Patrizia Albrecht RN [address] [place] [address] 03/31/2025 10:15 AM EST Telemedicine [address] [address] Emilie Davis MD [address] [place] [address] 06/04/2025 3:00 PM EST Office Visit [facility] [address] [place] [address] Merissa Donis, OD [address] [place] [address] documented as of this encounter Visit Diagnoses Not on filedocumented in this encounter Additional Health Concerns Assessment Noted Time PHQ-9 Depression Total Score: 3 04/30/20 9:17 AM EST documented as of this encounter Care Teams Maintenance Engineer Relationship Specialty Start Date End Date Emilie Davis MD [address] [place] [address] PCP - General Family Medicine 05/13/18 Morales Echavarria FNP [address] [place] [address] Nurse Practitioner Family Medicine 04/16/23 03/10/25OrozcoAugust [address] [place] [address] Gastroenterology 05/26/24 Fred Castanon [address] [place] [address] Cardiology 07/21/24 Ele Mar MD [address] [place] [address] Hematology and Oncology 02/22/25 Marina Brown MD Rheumatology 02/10/25 Costa Miller MD Attending Hepatobiliary & Pancreatic Surgeon Division of Surgical Oncology [facility] Surgical Oncology 03/11/25 documented as of this encounter
--- OUTSIDE RECORDS SUMMARY | 2025-03-22 13:54 | XMS_ITS | Encounter Summary ---
Author Organization [employer] Address [address] [place] [address] Care Team Providers Care [employer] Name Role Phone Emilie Davis MD Primary Care Provider [phone] Morales Echavarria Unavailable Unavailable August Unavailable Fred Castanon Unavailable Ele Mar MD Unavailable [phone] Encounter Details Date Type Department Care Team (Late st Contact Info) Description 03/25/2023 Orders Only [facility] [address] [place] [address] Emilie Davis MD [address] [place], [place] [phone] Social History Tobacco Use Types Packs/Day Years [...] Description 03/24/2025 11:00 AM EST Clinical Support [facility] [address] [place] [address] Patrizia Albrecht RN [address] [place] [address] 03/31/2025 10:15 AM EST Telemedicine [facility] [address] [place] [address] Emilie Davis MD [address] [place] [address] 06/04/2025 3:00 PM EST Office Visit [facility] [address] [place] [address] Merissa Donis, OD [address] [place] [address] documented as of this encounter Visit Diagnoses Not on filedocumented in this encounter Additional Health Concerns Assessment Noted Time PHQ-9 Depression Total Score: 10 023 9:08 AM EDT documented as of this encounter Care Teams [employer] Relationship Specialty Start Date End Date Emilie Davis MD [address] [place] [address] PCP - General Family Medicine 1/1/19 Morales Echavarria FNP [address] [place] [address] Nurse Practitioner Family Medicine 04/16/23 03/10/25 Aida Orozco [address] [place] [address] Gastroenterology 05/26/24 Fred Castanon [address] [place] [address] Cardiology 07/21/24 Ele Mar MD [address] [place] [address] Hematology and Oncology 02/22/25 Marina Brown MD Rheumatology 02/10/25 Costa Miller MD Attending Hepatobiliary & Pancreatic Surgeon Division of Surgical Oncology [facility] Surgical Oncology 03/11/25 documented as of this encounter
--- OUTSIDE RECORDS SUMMARY | 2025-03-22 13:54 | XMS_ITS | Encounter Summary ---
Author Organization [employer] [facility] Address [address]t [place] [address] Care Team Providers Care Battery Repairer Name Role Phone Emilie Davis MD Primary Care Provider [phone] Morales Echavarria Unavailable Unavailable August Unavailable Fred Castanon Unavailable Ele Mar MD Unavailable [phone] Reason for Referral * Consultation (Urgent) - Closed Specialty Diagnoses / Procedures Referred By Contac t Referred To Contact Behavioral Health Diagnoses Depression, unspecified depression type Emilie Davis MD [address] [place] [address] Phone: tel: fax: Referral ID Status Reason Start Date Expiration Date V isits Requested Visits Authorized [id number] Closed Specialty Services Required 02/05/2025 02/05/2026 1 1 Encounter Details Date Type Department Care Team (Late st Contact Info) Description 02/05/2025 Orders Only [facility] [address] [place] [address] Emilie Davis MD [address] [place], [place] [phone] Depression, unspecified depression type (Primary Dx) Social [...] 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 Not on file Not on file documented as of this encounter Plan of Treatment Upcoming Encounters Date Type Department Care Team (Late st Contact Info) Description 03/24/2025 11:00 AM EST Clinical Support [facility] [address] [place] [address] Patrizia Albrecht, RONALD [address] [place] [address] 03/31/2025 10:15 AM EST Telemedicine [facility] [address] [place] [address] Emilie Davis MD [address] [place] [address] 06/04/2025 3:00 PM EST Office Visit [facility] [address] [place] [address] Gagandeep, Merissa, OD [address] [place] [address] Scheduled Referrals Name Type Priority Associated Diagnoses [...] documented as of this encounter Care Teams Battery Repairer Relationship Specialty Start Date End Date Emilie Davis MD [address] [place] [address] PCP - General Family Medicine 05/13/18 Morales Echavarria FNP [address] [place] [address] Nurse Practitioner Family Medicine 04/16/23 03/10/25 Aida Orozco [address] [place] [address] [address] [place] [address] Gastroenterology 05/26/24 Fred Castanon [address] [place] [address] Cardiology 07/21/24 Ele Mar MD [address] [place] [address] Hematology and Oncology 02/22/25 Marina Brown MD Rheumatology 02/10/25 Costa Miller MD Attending Hepatobiliary & Pancreatic Surgeon Division of Surgical Oncology [facility] Surgical Oncology 03/11/25 documented as of this encounter
--- OUTSIDE RECORDS SUMMARY | 2025-03-22 13:54 | XMS_ITS | Encounter Summary ---
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 Not on file Not on file documented as of this encounter Plan of Treatment Upcoming Encounters Date Type Department Care Team (Late st Contact Info) Description 03/24/2025 11:00 AM EST Clinical Support [facility] MEDICINE [address] [place] [address] Patrizia Albrecht RN 230 [place] [address] 03/31/2025 10:15 AM EST Telemedicine [facility] MEDICINE 230 [place] [address] Emilie Davis MD 230 [place] [address] 06/04/2025 3:00 PM EST Office Visit [facility] OPTOMETRY [address] [place] [address] Merissa Donis OD 230 [place] [address] documented as of this encounter Procedures Procedure [...] documented as of this encounter Care Teams Ski Edge Painter Relationship Specialty Start Date End Date Emilie Davis MD [address] [place] [address] PCP - General Family Medicine 05/13/18 Morales Echavarria FNP [address] [place] [address] 59938 Nurse Practitioner Family Medicine 04/16/23 03/10/25OrozcoAugust [address] [place] [address]47 Gastroenterology 05/26/24 Fred Castanon [address] [place] [address] 9[address]43 Cardiology 07/21/24 Ele Mar MD [address] [place] [address] Hematology and Oncology 02/22/25 Marina Brown MD Rheumatology 02/10/25 Costa Miller MD Attending Hepatobiliary & Pancreatic Surgeon Division of Surgical Oncology [facility] Surgical Oncology 03/11/25 documented as of this encounter
--- OUTSIDE RECORDS SUMMARY | 2025-03-22 13:54 | XMS_ITS | Encounter Summary ---
Author Organization [employer] [facility] Address [address] [facility] 7t [place] [address] Care Team Providers Care Digital Data Analyst Name Role Phone Emilie Davis MD Primary Care Provider [phone]- [phone] Morales Echavarria Unavailable Unavailable August Unavailable Fred Castanon Unavailable Ele Mar MD Unavailable [phone] Reason for Visit * Reason Comments Med Refill Encounter Details Date Type Department Care Team (Late st Contact Info) Description 01/01/2023 Refill [facility]INE 230 [place] [address] Emilie Davis MD 230 [place], [place] [phone] Social History Tobacco Use Types Packs/Day Years [...] 8:54 AM EDT T/C to patient via senior field service engineer regarding x-ray result. No answer, message [...] Description 03/24/2025 11:00 AM EST Clinical Support [facility] MEDICINE [address] [place] [address] Patrizia Albrecht RN [address] [place] [address] 03/31/2025 10:15 AM EST Telemedicine [facility] MEDICINE [address] [place] [address] Emilie Davis MD [address] [place] [address] 06/04/2025 3:00 PM EST Office Visit [facility] OPTOMETRY [address] [place] [address] Gagandeep, Merissa, OD 230 [place] [address] documented as of this encounter Visit Diagnoses Not on filedocumented in this encounter Additional Health Concerns Assessment Noted Time PHQ-9 Depression Total Score: 19 023 9:24 AM EDT documented as of this encounter Care Teams Digital Data Analyst Relationship Specialty Start Date End Date Emilie Davis MD [address] [place] [address] PCP - General Family Medicine 05/13/18 Morales Echavarria FNP 230 [place] [address] Nurse Practitioner Family Medicine 04/16/23 03/10/25 Aida Orozco [address] [place] [address] Gastroenterology 05/26/24 Fred Castanon [address] [place] [address] 32464 Cardiology 07/21/24 Ele Mar MD [address] [place] [address] 28601 Hematology and Oncology 02/22/25 Marina Brown MD Rheumatology 02/10/25 Costa Miller MD Attending Hepatobiliary & Pancreatic Surgeon Division of Surgical Oncology [facility] Surgical Oncology 03/11/25 documented as of this encounter
--- OUTSIDE RECORDS SUMMARY | 2025-03-22 13:54 | XMS_ITS | Encounter Summary ---
Author Organization [employer] Address [address] [facility] [address] 7t [place] [address] Care Team Providers Care Web Site Manager Name Role Phone Emilie Davis MD Primary Care Provider [phone]- [phone] Morales Echavarria Unavailable Unavailable August Unavailable Fred Castanon Unavailable Ele Mar MD Unavailable [phone] Reason for Visit * Reason Comments Med Refill Encounter Details Date Type Department Care Team (Late st Contact Info) Description 01/17/2024 Refill [facility] MEDICINE 230 [place], [place] [phone] Emilie Davis MD 230 [place], [place] [phone] 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) Social [...] Description 03/24/2025 11:00 AM EST Clinical Support [facility] MEDICINE [address] [place] [address] Patrizia Albrecht, RONALD 230 [place] [address] 03/31/2025 10:15 AM EST Telemedicine [facility] MED[facility]INE 230 [place] [address] Emilie Davis MD 230 [place] [address] 06/04/2025 3:00 PM EST Office Visit [facility] OPTOMETRY [address] [place] [address] Merissa Donis, OD 230 [place] [address] documented as of this encounter Visit Diagnoses Diagnosis Gender 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- Primary documented in this encounter Additional Health Concerns Assessment Noted Time PHQ-9 Depression Total Score: 3 04/30/20 23 9:17 AM EST documented as of this encounter Care Teams Web Site Manager Relationship Specialty Start Date End Date Emilie Davis MD [address] [place] [address] PCP - General Family Medicine 05/13/18 Morales Echavarria FNP [address] [place] [address]1530 Nurse Practitioner Family Medicine 04/16/23 03/10/25 Aida Orozco [address] [place] [address] Gastroenterology 05/26/24 Fred Castanon [address] [place] [address] 89059 Cardiology 07/21/24 Ele Mar MD [address] [place] [address] 92850 Hematology and Oncology 02/22/25 Marina Brown MD Rheumatology 02/10/25 Costa Miller MD Attending Hepatobiliary & Pancreatic Surgeon Division of Surgical Oncology [facility] Surgical Oncology 03/11/25 documented as of this encounter
--- OUTSIDE RECORDS SUMMARY | 2025-03-22 13:54 | XMS_ITS | Encounter Summary ---
Author Organization [employer] Address [address] [facility] [address] 7t [place] [address] Care Team Providers Care Service Correspondent Name Role Phone Emilie Davis MD Primary Care Provider [phone]- [phone] Morales Echavarria Unavailable Unavailable August Unavailable Fred Castanon Unavailable Ele Mar MD Unavailable [phone] Reason for Visit * Reason Onset Date Comments Hospital Follow-up 02/22/2025 Encounter Details Date Type Department Care Team (Late st Contact Info) Description 02/22/2025 Telephone [facility] MEDICINE 230 [place], [place] [phone] Emilie Davis MD 230 [place] [address] Hospital Follow-up Social History Tobacco Use Types [...] 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 Hospital: [facility] Date of admission: 02/18 Discharge date: 02/21 Diagnosed: pt did a biopsy and they injured his pancreas *Send message to [place] Clinical Care Coordinators Contact pt at [phone] documented in this encounter Plan of Treatment Upcoming Encounters Date Type Department Care Team ([facility] st Contact Info) Description 03/24/2025 11:00 AM EST Clinical Support [facility] MEDICINE [address] [place] [address] Patrizia Albrecht, RONALD [address] [place] [address] 03/31/2025 10:15 AM EST Telemedicine [facility]INE 230 [place] [address] Emilie Davis MD 230 [place] [address] 06/04/2025 3:00 PM EST Office Visit [facility] OPTOMETRY [address] [place] [address] Gagandeep, Merissa, OD 230 [place] [address] documented as of this encounter Visit Diagnoses Not on filedocumented in this encounter Additional Health Concerns Assessment Noted Time PHQ-9 Depression Total Score: 3 04/30/20 23 9:17 AM EST documented as of this encounter Care Teams Service Correspondent Relationship Specialty Start Date End Date Emilie Davis MD 230 [place] [address] PCP - General Family Medicine 05/13/18 Morales Echavarria FNP [address] [place] [address] Nurse Practitioner Family Medicine 04/16/23 03/10/25 Pam Aida [address] [place] [address]281 Gastroenterology 05/26/24 Fred Castanon [address] [place] [address] 16261 Cardiology 07/21/24 Ele Mar MD [address] [place] [address] Hematology and Oncology 02/22/25 Marina Brown MD Rheumatology 02/10/25 Costa Miller MD Attending Hepatobiliary & Pancreatic Surgeon Division of Surgical Oncology [facility] Surgical Oncology 03/11/25 documented as of this encounter
--- OUTSIDE RECORDS SUMMARY | 2025-03-22 13:54 | XMS_ITS | Encounter Summary ---
Author Organization [employer] [facility] Address [address] [facility] 7t [place] [address] Care Team Providers Care Electrical Logging Engineer Name Role Phone Emilie Davis MD Primary Care Provider [phone] Morales Echavarria Unavailable Unavailable August Unavailable Fred Castanon Unavailable Ele Mar MD Unavailable [phone] Encounter Details Date Type Department Care Team (Late Contact Info) Description 11/28/2022 Abstract [facility] MEDICINE [address] [place] [address] Emilie Davis MD [address] [place] [address] Social History Tobacco Use Types Packs/Day Years [...] Department Care Team (Late Contact Info) Description 03/24/2025 11:00 AM EST Clinical Support [facility] MEDICINE 230 [place] [address] Patrizia Albrecht, RONALD 230 [place] [address] 03/31/2025 10:15 AM EST Telemedicine [facility] MEDICINE 230 [place] [address] Emilie Davis MD 230 [place] [address] 06/04/2025 3:00 PM EST Office Visit [facility] OPTOMETRY [address] [place] [address] Gagandeep, Merissa, OD 230 [place] [address] documented as of this encounter Visit Diagnoses Not on filedocumented in this encounter Additional Health Concerns Assessment Noted Time PHQ-9 Depression Total Score: 19 023 9:24 AM EDT documented as of this encounter Care Teams Electrical Logging Engineer Relationship Specialty Start Date End Date Emilie Davis MD [address] [place] [address] PCP - General Family Medicine 05/13/18 Morales Echavarria FNP [address] [place] [address] 59471 Nurse Practitioner Family Medicine 04/16/23 03/10/25 Aida Orozco [address] [place] [address]235 Gastroenterology 05/26/24 Fred Castanon [address] [place] [address] 88229 Cardiology 07/21/24 Ele Mar MD [address] [place] [address]69 Hematology and Oncology 02/22/25 Marina Brown MD Rheumatology 02/10/25 Costa Miller MD Attending Hepatobiliary & Pancreatic Surgeon Division of Surgical Oncology [facility] Surgical Oncology 03/11/25 documented as of this encounter
--- OUTSIDE RECORDS SUMMARY | 2025-03-22 13:54 | XMS_ITS | Encounter Summary ---
Author Organization [employer] [facility] Address [address] [facility] [address] 7t [place] [address] Care Team Providers Care Lace Stripper Name Role Phone Emilie Davis MD Primary Care Provider [phone]- [phone] Orozcoaugust Unavailable Fred Castanon Unavailable Ele Mar MD Unavailable [phone] Reason for Visit * Reason Onset Date Comments chart prep 03/19/2025 Encounter Details Date Type Department Care Team (Late st Contact Info) Description 03/19/2025 Telephone [facility] MEDICINE 230 [place] [address] Emilie Davis MD 230 [place], [place] [phone] chart prep Social History Tobacco Use Types Packs/Day Years [...] 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 file Not on file documented as of this encounter Miscellaneous Notes * Telephone Encounter - Erlinda Juares [place] - 03/19/2025 11:05 AM EST Chart Prep Labs: done Images: done Referrals: complete Vaccines due: Covid, Flu, and Zoster Screenings: colonoscopy Overdue care gaps: Oral health screening and Disability screen documented in this encounter Plan of Treatment Upcoming Encounters Date Type Department Care Team (Late st Contact Info) Description 03/24/2025 11:00 AM EST Clinical Support [facility] MEDICINE [address] [place] [address] Patrizia Albrecht, RONALD [address] [place] [address] 03/31/2025 10:15 AM EST Telemedicine [facility] MEDICINE [address] [place] [address] Emilie Davis MD 230 [place] [address] 06/04/2025 3:00 PM EST Office Visit [facility] OPTOMETRY [address] [place] [address] Merissa Donis, OD 230 [place] [address] documented as of this encounter Visit Diagnoses Not on filedocumented in this encounter Additional Health Concerns Assessment Noted Time PHQ-9 Depression Total Score: 9 03/03/20 25 4:53 PM EDT documented as of this encounter Care Teams Lace Stripper Relationship Specialty Start Date End Date Emilie Davis MD 230 [place] [address] PCP - General Family Medicine 05/13/18 Pam Aida [address] [place] [address]305 Gastroenterology 05/26/24 Fred Castanon [address] [place] [address] 24730 Cardiology 07/21/24 Ele Mar MD [address] [place] [address] 13741 Hematology and Oncology 02/22/25 Marina Brown MD Rheumatology 02/10/25 Costa Miller MD Attending Hepatobiliary & Pancreatic Surgeon Division of Surgical Oncology [facility] Surgical Oncology 03/11/25 documented as of this encounter
--- OUTSIDE RECORDS SUMMARY | 2025-03-22 13:55 | XMS_ITS | Encounter Summary ---
Author Organization [employer] [facility] Address [address] [facility] [address] 7t [place] [address] Care Team Providers Care C Application Developer Name Role Phone Emilie Davis MD Primary Care Provider [phone]- [phone] Orozcoaugust Unavailable Fred Castanon Unavailable Ele Mar MD Unavailable [phone] Reason for Visit * Reason Onset Date Comments Chart Prep 03/18/2025 Encounter Details Date Type Department Care Team (Late st Contact Info) Description 03/18/2025 Telephone [facility] MEDICINE 230 [place], [place] [phone] Emilie Davis MD 230 [place], [place] [phone] Chart Prep Social History Tobacco Use Types Packs/Day Years [...] 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 Not on file documented as of this encounter Miscellaneous Notes * Telephone Encounter - Hawk Haji [place] - 03/18/2025 1:44 PM EST Chart Prep Labs: done Images: done Referrals: complete Vaccines due: Covid, Flu, PCV20, and Zoster Screenings: colonoscopy Overdue care gaps: Oral health screening and Disability screen documented in this encounter Plan of Treatment Upcoming Encounters Date Type Department Care Team (Late st Contact Info) Description 03/24/2025 11:00 AM EST Clinical Support [facility] MEDICINE [address] [place] [address] Patrizia Albrecht, RONALD [address] [place] [address] 03/31/2025 10:15 AM EST Telemedicine [facility] MEDICINE [address] [place] [address] Emilie Davis MD 230 [place] [address] 06/04/2025 3:00 PM EST Office Visit [facility] OPTOMETRY [address] [place] [address] Gagandeep, Merissa, OD 230 [place] [address] documented as of this encounter Visit Diagnoses Not on filedocumented in this encounter Additional Health Concerns Assessment Noted Time PHQ-9 Depression Total Score: 9 03/03/20 4:53 PM EDT documented as of this encounter Care Teams C Application Developer Relationship Specialty Start Date End Date Emilie Davis MD 230 [place] [address] PCP - General Family Medicine 05/13/18 Aida Orozco [address] [place] [address] Gastroenterology 05/26/24 Fred Castanon [address] [place] [address] 71671 Cardiology 07/21/24 Ele Mar MD [address] [place] [address] Hematology and Oncology 02/22/25 Marina Brown MD Rheumatology 02/10/25 Costa Miller MD Attending Hepatobiliary & Pancreatic Surgeon Division of Surgical Oncology [facility] Surgical Oncology 03/11/25 documented as of this encounter
--- OUTSIDE RECORDS SUMMARY | 2025-03-22 13:55 | XMS_ITS | Encounter Summary ---
Author Organization [employer] [facility] Address [address] [facility] 7t [place] [address] Care Team Providers Care Internet Architect Name Role Phone Emilie Davsi MD Primary Care Provider Morales Echavarria PHYSICIAN'S ASSISTANT Unavailable Unavailable August Unavailable Fred Castanon Unavailable Ele Mar MD Unavailable [phone] Encounter Details Date Type Department Care Team (Late st Contact Info) Description 05/27/2022 Abstract [facility] MEDICINE [address] [place] [address] Emilie Davis MD [address] [place] [address] [phone] Social History Tobacco Use Types Packs/Day Years [...] Description 03/24/2025 11:00 AM EST Clinical Support [address] [address] Patrizia Albrecht, RONALD [address] [place] [address] 03/31/2025 10:15 AM EST Telemedicine [address] [phone] Emilie Davis MD 230 [place] [address] 06/04/2025 3:00 PM EST Office Visit [facility] OPTOMETRY [address] [place] [address] Gagandeep, Merissa, OD 230 [place] [address] documented as of this encounter Procedures Procedure [...] ORDERABLES F inal Result Performing Organization Address City/[facility] Co de Phone Number [facility] [address] [place] [address] [phone] documented in this encounter Visit Diagnoses Not on filedocumented in this encounter Care Teams Internet Architect Relationship Specialty Start Date End Date Emilie Davis MD [address] [place] [address] [phone] PCP - General Family Medicine 05/13/18 Morales Echavarria FNP [address] [place] [address] 89652 Nurse Practitioner Family Medicine 04/16/23 03/10/25 Pam Aida [address] [place] [address] Gastroenterology 05/26/24 Fred Castanon [address] [place] [address] Cardiology 07/21/24 Ele Mar MD [address] [place] [address] 7[address]65 Hematology and Oncology 02/22/25 Marina Brown MD Rheumatology 02/10/25 Costa Miller MD Attending Hepatobiliary & Pancreatic Surgeon Division of Surgical Oncology [facility] Surgical Oncology 03/11/25 documented as of this encounter
--- OUTSIDE RECORDS SUMMARY | 2025-03-22 13:55 | XMS_ITS | Encounter Summary ---
Author Organization [employer] Address [address] [address] 7t [place] [address] Care Team Providers Care Industrial Analyst Name Role Phone Emilie Davis MD Primary Care Provider [phone] Morales Echavarria Unavailable Unavailable August Unavailable Fred Castanon Unavailable Ele Mar MD Unavailable [phone] Reason for Visit * Reason Onset Date Comments Med Refill 04/22/2024 Encounter Details Date Type Department Care Team (Late st Contact Info) Description 04/22/2024 Telephone [facility] MEDICINE 230 [place] [address] Emilie Davis MD 230 [place] [address] Med Refill Social History Tobacco Use Types [...] / [facility] - [place], [place] - [address] [facility] documented in this encounter Plan of Treatment Upcoming Encounters Date Type Department Care Team ([facility] st Contact Info) Description 03/24/2025 11:00 AM EST Clinical Support [facility] MEDICINE 230 [place] [address] Patrizia Albrecht, RN 230 [place] [address] 03/31/2025 10:15 AM EST Telemedicine [facility] MEDICINE 230 [place] [address] Emilie Davis MD 230 [place] [address] 06/04/2025 3:00 PM EST Office Visit [facility] OPTOMETRY [address] [place] [address] Gagandeep, Merissa, OD 230 [place] [address] documented as of this encounter Visit Diagnoses Not on filedocumented in this encounter Additional Health Concerns Assessment Noted Time PHQ-9 Depression Total Score: 3 04/30/20 9:17 AM EST documented as of this encounter Care Teams Industrial Analyst Relationship Specialty Start Date End Date Emilie Davis MD [address] [place] [address] PCP - General Family Medicine 05/13/18 Morales Echavarria FNP [address] [place] [address] 51915 Nurse Practitioner Family Medicine 04/16/23 03/10/25 Aida Orozco [address] [place] [address] 26[address] Gastroenterology 05/26/24 Fred Castanon [address] [place] [address] 95592 Cardiology 07/21/24 Ele Mar MD [address] [place] [address]78 Hematology and Oncology 02/22/25 Marina Brown MD Rheumatology 02/10/25 Costa Miller MD Attending Hepatobiliary & Pancreatic Surgeon Division of Surgical Oncology [facility] Surgical Oncology 03/11/25 documented as of this encounter
--- OUTSIDE RECORDS SUMMARY | 2025-03-22 13:55 | XMS_ITS | Encounter Summary ---
Author Organization [employer] [facility] Address [address] [facility] [address] 7t [place] [address] Care Team Providers Care Technical Developer Name Role Phone Emilie Davis MD Primary Care Provider [phone] Morales Echavarria Unavailable Unavailable August Unavailable Fred Castanon Unavailable Ele Mar MD Unavailable [phone] Reason for Visit * Reason Onset Date Comments Referral 07/18/2022 Encounter Details Date Type Department Care Team (Late st Contact Info) Description 07/18/2022 Telephone [facility] MEDICINE 230 [place] [address] Emilie Davis MD 230 [place] [address] Referral Social History Tobacco Use Types Packs/Day [...] to [facility]. Please contact pt [phone] documented in this encounter Plan of Treatment Upcoming Encounters Date Type Department Care Team (Late st Contact Info) Description 03/24/2025 11:00 AM EST Clinical Support [facility] MEDICINE [address] [place] [address] Patrizia Albrecht, RONALD 230 [place] [address] 03/31/2025 10:15 AM EST Telemedicine [facility] MEDICINE 230 [place] [address] Emilie Davis MD 230 [place] [address] 06/04/2025 3:00 PM EST Office Visit [facility] OPTOMETRY [address] [place] [address] Merissa Donis, OD 230 [place] [address] documented as of this encounter Visit Diagnoses Not on filedocumented in this encounter Care Teams Technical Developer Relationship Specialty Start Date End Date Emilie Davis MD [address] [place] [address] PCP - General Family Medicine 05/13/18 Morales Echavarria FNP [address] [place] [address] 10735 Nurse Practitioner Family Medicine 04/16/23 03/10/25 Aida Orozco [address] [place] [address] Drive [address] [place] [address] Gastroenterology 05/26/24 Fred Castanon [address] [address] Cardiology 07/21/24 Ele Mar MD [address] [place] [address] 7[address] Hematology and Oncology 02/22/25 Marina Brown MD Rheumatology 02/10/25 Costa Miller MD Attending Hepatobiliary & Pancreatic Surgeon Division of Surgical Oncology [facility] Surgical Oncology 03/11/25 documented as of this encounter
--- OUTSIDE RECORDS SUMMARY | 2025-03-22 13:55 | XMS_ITS | Encounter Summary ---
Author Organization [employer] Address [address] [place] [address] Care Team Providers Care Wafer Production Lead Worker Name Role Phone Emilie Davis MD Primary Care Provider [phone] Orozcoaugust Unavailable Fred Castanon Unavailable Ele Mar MD Unavailable [phone] Encounter Details Date Type Department Care Team (Late st Contact Info) Description 03/19/2025 Telephone [facility] MEDICINE [address] [place] [address] Emilie Davis MD [address] [place] [address] Social History Tobacco Use Types Packs/Day Years [...] Industry Job Start Date Job End Date [employer] Not on file Not on file Not on file documented as of this encounter Miscellaneous Notes * Telephone Encounter - Staci Rueda - 03/19/2025 11:01 AM EST Called Patient left vm no answer. Advised to call back and register for televisit. If Patient callsback please contact Imelda MILES documented in this encounter Plan of Treatment Upcoming Encounters Date Type Department Care Team (Late st Contact Info) Description 03/24/2025 11:00 AM EST Clinical Support [facility] MEDICINE [address] [place] [phone] Patrizia Albrecht RN [address] [place] [phone] 03/31/2025 10:15 AM EST Telemedicine [facility] MEDICINE [address] [place] [address] Emilie Davis MD [address] [place] [address] 06/04/2025 3:00 PM EST Office Visit [facility] OPTOMETRY [address] [place] [address] Gagandeep Merissa, OD [address] [place] [address] documented as of this encounter Visit Diagnoses Not on filedocumented in this encounter Additional Health Concerns Assessment Noted Time PHQ-9 Depression Total Score: 9 03/03/20 25 4:53 PM EDT documented as of this encounter Care Teams Wafer Production Lead Worker Relationship Specialty Start Date End Date Emilie Davis MD [address] [place] [address] PCP - General Family Medicine 05/13/18 Pam Aida [address] [address] Gastroenterology 05/26/24 Fred Castaonn [address] [place] [address] Cardiology 07/21/24 Ele Mar MD [address] [place] [address] Hematology and Oncology 02/22/25 Marina Brown MD Rheumatology 02/10/25 Costa Miller MD Attending Hepatobiliary & Pancreatic Surgeon Division of Surgical Oncology [facility] Surgical Oncology 03/11/25 documented as of this encounter
--- OUTSIDE RECORDS SUMMARY | 2025-03-22 13:55 | XMS_ITS | Clinical Summary ---
Author Organization [facility] Address [address] [place] [address] Phone Care Team Providers Care Linseed Oil Press Tender Name Role Phone Unavailable Primary Care Provider Unavailabl e Encounters Date Type Department Care Team Description 03/04/2025 3:00 PM EDT - 03/04/2025 11:59 PM EDT Hospital Encounter [facility] PET Scan [address] [place] [address] Adenocarcinoma of pancreas (CMS/HCC V24, CMS/HCC V28) Discharge Disposition: Home or Self Care from Last 3 Months Social History Tobacco [...] 06/05/2021, 10/11/2020, 09/14/2020 Influenza Vaccine (#1) 2025 0, 03/31/2018 Hepatitis C Screening 03/04/2025 Social Influencers [...] V24, CMS/HCC V28) from Last 3 Months Results * [...] Signed Date: 03/05/2025 03:48 ET Workstation ID: [id number] Transcribed By: Self Edit Transcribed Date: 03/05/2025 [...] Signed Date: 03/05/2025 03:48 ET Workstation ID: [id number] Transcribed By: Self Edit Transcribed Date: 03/05/2025 03:19 ET Ele Mar MD IMG NM PROCEDURES Final Result from Last 3 Months Insurance [facility]
--- OUTSIDE RECORDS SUMMARY | 2025-03-22 13:55 | XMS_ITS | Encounter Summary ---
Author Organization [employer] Address [address] [address] [place] [address] Care Team Providers Care Glassie Name Role Phone Emilie Davis MD Primary Care Provider [phone] Morales Echavarria OYSTER CULLER Unavailable Unavailable August Unavailable Fred Castanon Unavailable Ele Mar MD Unavailable [phone] Encounter Details Date Type Department Care Team (Late Contact Info) Description 04/22/2022 Orders Only [facility] MED & PEDS [address] [place] [address] Emilie Davis MD [address] [place], [place] [phone] HSV (herpes simplex virus) anogenital infection (Primary [...] 03/24/2025 11:00 AM EST Clinical Support [facility] MEDICINE [address], [place] [phone] Patrizia Albrecht, RONALD [address] [place] [address] 03/31/2025 10:15 AM EST Telemedicine [facility] MEDICINE [address] [place] [address] Emilie Davis MD [address] [place] [address] 06/04/2025 3:00 PM EST Office Visit [facility] OPTOMETRY [address] [place] [address] Gagandeep, Merissa, OD [address] [place] [address] documented as of this encounter Visit Diagnoses Diagnosis HSV (herpes simplex virus) anogenital infection- Primary Herpes simplex without mention of complication documented in this encounter Care Teams Glassie Relationship Specialty Start Date End Date Emilie Davis MD [address] [place] [phone] PCP - General Family Medicine 05/13/18 Morales Echavarria FNP [address] [place] [phone] Nurse Practitioner Family Medicine 04/16/23 03/10/25OrozcoAugust [address] [place] [address] Gastroenterology 05/26/24 Fred Castanon [address] [place] [phone] Cardiology 07/21/24 Ele Mar MD [address] [place] [address] Hematology and Oncology 02/22/25 Marina Brown MD Rheumatology 02/10/25 Costa Miller MD Attending Hepatobiliary & Pancreatic Surgeon Division of Surgical Oncology [facility] Surgical Oncology 03/11/25 documented as of this encounter
--- OUTSIDE RECORDS SUMMARY | 2025-03-22 13:55 | XMS_ITS | Clinical Summary ---
Author Organization [employer] Address [address] [place] [address] Care Team Providers Care Corporate Manager Name Role Phone Emilie Davis MD Primary Care Provider [phone] August Unavailable Fred Castanon Unavailable Ele Mar MD Unavailable [phone] Allergies Active Allergy Reactions Criticality Noted Date Comments Penicillins Anaphylaxis,Rash High 05/16/2017 Sumatriptan 10/28/2018 Medications * This document contains information received from the source organization and may not represent a complete record from that organization. Needle, Disp, (BD Disp [place]) 25G X 5/8 miscIndication s:Gender 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 USE TO INJECT Testosterone INTRAMUSCULARLY EVERY 2 WEEKS DIRECTED 25 each 3 024 Active Needle, Disp, (BD Hypodermic Needle) 16G X 1 miscIndication s:Gender 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 USE TO DRAW UP testosterone EVERY 2 WEEKS 24 each 1 024 Active BD Plastipak Syringe 3 ML miscIndication s:Gender 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 USE FOR TESTOSTERONE 12 each 3 024 Active omeprazole OTC (PriLOSEC OTC) 20 MG EC tabletIndicati ons:Generalize d abdominal pain Take 1 tablet (20 mg) by mouth if needed each day (gerd). Do not crush, chew, or split. 30 tablet 3 024 Active Cabotegravir ER (Apretude) 600 MG/3ML Suspension Extended ReleaseIndicat ions:Encounter for HIV pre-exposure prophylaxis Inject 3 mL every other month IM Ventrogluteal 3 mL 5 025 Active testosterone cypionate (Depo-Testoste avi) 200 MG/ML injectionIndic ations:Gender dysphoria INJECT 0.5 ML INTRAMUSCULARLY EVERY 2 WEEKS 2 mL 2 025 Active LORazepam (Ativan) 0.5 MG tabletIndicati ons:Insomnia secondary to depression with anxiety Take 1 tab po at bedtime prn anxiety 30 tablet 025 Active loratadine (Claritin) 10 MG tabletIndicati ons:Seasonal allergies Take 1 tablet (10 mg) by mouth if needed each day for allergies. 30 tablet 1 024 2024 Discontinued(M ed list cleanup (will not trigger notification to Pharmacy)) mirtazapine (Remeron) 15 MG tabletIndicati ons:Seasonal allergies Take 1 tablet (15 mg) by mouth at bedtime. 90 tablet 1 024 2024 Discontinued doxycycline (Vibramycin) 100 MG capsule TAKE 2 CAPSULES BY MOUTH DAILY WITHIN 72 HOURS OF unprotected sex. TAKE WITH A FULL GLASS OF WATER AND Do not lie down for 30 minutes after taking. 30 capsule 025 2024 Discontinued(M ed list cleanup (will not trigger notification to Pharmacy)) tamsulosin (Flomax) 0.4 MG 24 hr capsuleIndicat ions:Acute left flank pain Take 1 capsule (0.4 mg) by mouth Once per day. 30 capsule 025 2024 Discontinued(M ed list cleanup (will not trigger notification to Pharmacy)) cholecalcifero l (Vitamin D-3) 1.25 MG (24669 UT) capsule Take 1 capsule by mouth 1 (one) time per week. 025 2024 Discontinued(M ed list cleanup (will not trigger notification to Pharmacy)) sucralfate (Carafate) 1 GM/10ML suspension Take 20 mL by mouth Once per day. At noon 025 2024 Discontinued(M ed list cleanup (will not trigger notification to Pharmacy)) magnesium oxide (Mag-Ox) 400 (240 Mg) MG tablet Take 1 tablet by mouth at bedtime. Hold for loose stools 025 10/22/ 2025 Discontinued(M ed list cleanup (will not trigger notification to Pharmacy)) linaCLOtide (Linzess) 145 MCG capsule Take 145 mcg by mouth Once per day. 025 2024 Discontinued(M ed list cleanup (will not trigger notification to Pharmacy)) Active Problems Problem Noted Date Diagnosed Date Recurrent major depressive disorder, in partial remission 03/18/2025 CORY (generalized anxiety disorder) 03/03/2025 Chronic bilateral low back pain 02/10/2025 Overview (02/10/2025): -MRI 02/09/25 MR/MR lumbar spine wo con IMPRESSION: Multilevel lumbar spondylosis, L2-3 to L5-S1 pronounced at L3-4 and L4-5. Broad-based left subarticular and foraminal herniated disc at L3-4 and to a lesser extent L2-3 encroaching the exiting nerve roots. Overall slight worsening at L2-3 levels Pancreatic adenocarcinoma (CMS/HCC) 01/21/2025 Overview (03/11/2025): - Diagnosed with pancreatic adenocarcinoma in January 2025. He [...] ultrasound and biopsy of this mass at [facility] on 02/18/2025. FNA of pancreatic head mass from 02/18/2025 revealed adenocarcinoma. -He had another CT abdomen/pelvis with contrast on 02/18/2025 which shows 2.7 x 1.6 cm mass near the head of pancreas/uncinate process that may be part of pancreas or a large peripancreatic lymph node resulting in mild intrahepatic biliary tree dilatation and severe dilatation of the common bile duct which measures 1.7 cm. -Staging CT chest with contrast performed at [facility] on 02/23/2025 showed no evidence of metastaticdisease in chest. Mild coronary artery calcifications, calcified granulomas with soft tissue nodules unchanged since 2018 and considered benign. -PET scan has been ordered. -Clinical stage T2 N0 -Seen by Dr. Jj oncologist 02/25/25 where she discussed role of preoperative or neoadjuvant chemotherapy for downsizing tumor. He was referred to [facility] surgical Oncology but they did not take his insurance so he was referred to [place] for Surgical Oncology . -If the plan is to go ahead with chemotherapy, he would get a Port-A-Cath placed by intervention Radiology. Chemotherapy with FOLFIRINOX regimen will be discussed. -Family history of breast cancer and personal history of pancreatic cancer. BRCA1 and 2 and 40 gene panel sent to [facility]. -Chronic dysphagia and underweight. Nutrition consult has been placed. -Note for surgical oncologist 03/09/25 Dr. Costa Miller MD Attending Hepatobiliary & Pancreatic Surgeon Division of Surgical Oncology [facility] Mr. Trace Roberson is a 55 yo M with a resectable pancreatic adenocarcinoma. He is young, and given the slight vein involvement, it makes sense to start with some chemotherapy to shrink the tumor away from the vein. Otherwise, he will need a Whipple with a possible small venous reconstruction. We went over this with several drawings via the senior environmental practice leader, and he is in full agreement with the plan. [place] I linked up with his local Medical Oncologist, Dr. Mar, and explained my ratione for a neoadjuvant approach. After three cycles, we'll assess for a treatment response then decide on the duration of systemic therapy before making a final plan about surgery. Should anything arise in the meantime, he knows to get in touch with me.Plan: - Initiate systemic therapy locally with Dr. Mar - Return to clinic with updated tumor markers and pancreas protocol CT abdomen and pelvis Follow-up timing: three months Assessment & Plan (03/03/2025 10:09 AM EDT): - Diagnosed with pancreatic adenocarcinoma in January 2025. He [...] ultrasound and biopsy of this mass at [facility] on 02/18/2025. FNA of pancreatic head mass from 02/18/2025 revealed adenocarcinoma. -He had another CT abdomen/pelvis with contrast on 02/18/2025 which shows 2.7 x 1.6 cm mass near the head of pancreas/uncinate process that may be part of pancreas or a large peripancreatic lymph node resulting in mild intrahepatic biliary tree dilatation and severe dilatation of the common bile duct which measures 1.7 cm. -Staging CT chest with contrast performed at [facility] on 02/23/2025 showed no evidence of metastaticdisease in chest. Mild coronary artery calcifications, calcified granulomas with soft tissue nodules unchanged since 2018 and considered benign. -PET scan has been ordered. -Clinical stage T2 N0 -Seen by Dr. Jj oncologist 02/25/25 where she discussed role of preoperative or neoadjuvant chemotherapy for downsizing tumor. He was referred to [facility] surgical Oncology but they did not take his insurance so he was referred to [place] for Surgical Oncology . -If the plan is to go ahead with chemotherapy, he would get a Port-A-Cath placed by intervention Radiology. Chemotherapy with FOLFIRINOX regimen will be discussed. -Family history of breast cancer and personal history of pancreatic cancer. BRCA1 and 2 and 40 gene panel sent to [facility]. -Chronic dysphagia and underweight. Nutrition consult has been placed. Orders: Referral to Nutrition Therapy; Future Referral to Surgical Oncology; Future Idiopathic acute pancreatitis without infection or necrosis 12/31/2024 Overview (12/31/2024): -dx at [facility] 12/2024 Patient admitted to general medical [...] cerebellar tonsils/cerebellar tonsil ectopia -seen by TRINIDAD Jusitn 09/24/24 As patient has new onset left-sided [...] XR 05/20/24 Coronary artery disease invo lving [facility] without angina pectoris 05/20/2024 Overview (10/15/2024): [...] Non-Reactive 03/18/2024 -03/2024 call from Holli at [facility] who reports pt originally positive for syphilis in [place] 09/18/1990 (RPR of 1:4) and was treated. [...] care facilitated by Alessio. -dental home is [facility] -health care proxy filed 03/16/24 Assessment & Plan (03/17/2024 6:12 AM EST): -next physical exam due after 03/16/2025 -eye care facilitated by [facility]. -dental home is [facility] -health care proxy filed 03/16/24 Assessment & Plan (03/22/2023 9:17 AM EST): -next physical exam due after 12/07/2023. -eye care facilitated by [facility]. -dental home is outside of [facility] Assessment & Plan (12/06/2022 10:19 AM EDT): -next physical exam dueafter 12/07/2023. -eye care facilitated by [facility]. -dental home is outside of [facility] Hx of hepatitis C 11/26/2022 [...] He was referred back to rheumatology in [place] 08/23/2020 but provider left the area. started on Tramadol. Take 3 times per week. He is not taking at this time -note from control system computer scientist Dr. Marina Brown MD from 02/09/25 reviewed Assessment & Plan (03/17/2024 6:08 AM EST): X rays suggests osteoarthritis. Seen by rheumatology in [place]. Ibuprofen and NSAIDs cause gastritis. Minimal relief with acetaminophen. He was referred back to rheumatology in [place] 08/23/2020 but provider left the area. started on Tramadol. Take 3 times per week. He is not taking at this time. Assessment & Plan (03/22/2023 9:15 AM EST): X rays suggests osteoarthritis. Seen by rheumatology in [place]. Ibuprofen and NSAIDs cause gastritis. Minimal relief with acetaminophen. He was referred back to rheumatology in [place] 08/23/2020 but provider left the area. started on Tramadol. Take 3 times per week. Will need COT in the future. Assessment & Plan (12/06/2022 8:54 AM EDT): X rays suggests osteoarthritis. Seen by rheumatology in [place]. Ibuprofen and NSAIDs cause gastritis. Minimal relief with acetaminophen. He was referred back to rheumatology in [place] 08/23/2020 but provider left the area. started on Tramadol. Take 3 times per week. Will need COT in the future. Assessment & Plan (10/11/2022 9:58 AM EDT): X rays suggests osteoarthritis. Seen by rheumatology in [place]. Ibuprofen and NSAIDs cause gastritis. Minimal relief with acetaminophen. He was referred back to rheumatology in [place] 08/23/2020 but provider left the area. started [...] Now with palpitations. Will refer to his internist medical doctor md for bradycardia. Assessment & Plan (03/22/2023 9:16 AM EST): Sinus bradycardia and asymptomatic. Pt states he always has slow heart rate Pt repots heart rate in 40s recorded with home BP monitor with symptoms of dizziness recorded at home. Now with palpitations. Will refer to his internist medical doctor md for bradycardia. Assessment & Plan (12/06/2022 8:54 AM EDT): Sinus bradycardia and asymptomatic. Pt states he always has slow heart rate Pt repots heart rate in 40s recorded with home BP monitor with symptoms of dizziness recorded at home. Now with palpitations. Will refer to his internist medical doctor md for bradycardia. Assessment & Plan (10/11/2022 9:58 AM EDT): Sinus bradycardia and asymptomatic. Pt states he always has slow heart rate Pt repots heart rate in 40s recorded with home BP monitor with symptoms of dizziness recorded at home. Now with palpitations. Will refer to his internist medical doctor md for bradycardia. Generalized abdominal pain 06/25/2021 Overview [...] for GI. Insurance no longer accepted at [facility]. -EGD scheduled for December 2021. -10/19/24 IMPRESSION: Normal 4-hour solid food gastric emptying study. -note from Aida Orozco 10/21/24 reveiwed [place] gastric emptying study [place] barium swallow H pylori Ag Stool ordered -note from Aida Orozco 12/04/24 Kaushik almeida -esophageal barium swallow 01/13/25 ordered by Aida [...] for GI. Insurance no longer accepted at [facility]. -EGD scheduled for December 2021. Assessment [...] for GI. Insurance no longer accepted at [facility]. -EGD scheduled for December 2021. Assessment [...] for GI. Insurance no longer accepted at [facility]. -EGD scheduled for December 2021. Assessment [...] for GI. Insurance no longer accepted at [facility]. -EGD scheduled for December 2021. History [...] lung 10/04/2017 Overview (05/20/2024): -Ct scan in [facility] on 12/25/2017 showed multiple indeterminate nodules, [...] 11/15/23 and NO SHOW. Pt can call [phone] to schedule mariely. number given to call 03/16/24 -CT 05/08/24 No acute intrathoracic findings. Calcified granulomas present bilaterally. No suspicious pulmonary nodule identified. Air-fluid level present within the midthoracic esophagus can be associated with gastroesophageal reflux disease and esophageal dysmotility. Coronary artery atherosclerosis. Assessment & Plan (05/20/2024 4:05 PM EST): -Ct scan in [place] [facility] on 12/25/2017 showed multiple indeterminate nodules, [...] 11/15/23 and NO SHOW. Pt can call [phone] to schedule mariely. number given to call 03/16/24 -CT 05/08/24 No acute intrathoracic findings. Calcified granulomas present bilaterally. No suspicious pulmonary nodule identified. Air-fluid level present within the midthoracic esophagus can be associated with gastroesophageal reflux disease and esophageal dysmotility. Coronary artery atherosclerosis. Assessment & Plan (03/17/2024 6:13 AM EST): -Ct scan in [place] [facility] on 12/25/2017 showed multiple indeterminate nodules, [...] 11/15/23 and NO SHOW. Pt can call [phone] to schedule mariely. number given to call 03/16/24 Assessment & Plan (03/22/2023 9:16 AM EST): -Ct scan in [place] ER on 12/25/2017 showed multiple indeterminate nodules, largest was solid and measured 2mm. -Given that the Pt has a tobacco Hx and quit in 2018 we referrred to pulmonology that was likely distrupted by the pandemic. -Will ordered repeat CT of chest to follow the nodles. Assessment & Plan (12/06/2022 10:18 AM EDT): -Ct scan in [place] ER on 12/25/2017 showed multiple indeterminate nodules, [...] referred for OP services and referral to [facility] Psychopharmacology clinic. Provided Crisis contact [...] Management b. Continue using coping skills c. [facility] support as needed. Mild major depression 06/25/[id number] Encounters * This document contains information received from the source organization and may not represent a complete record from that organization. Date Type Department Care Team Description 03/22/2025 Orders Only GENERIC EXTERNAL DATA DEPARTMENT Provider, Generic External Data 03/19/[address] [address] Emilie Davis MD chart prep 03/19/[address] [address] Emilie Davis MD 03/18/[address] [address] Emilie Davis MD Chart Prep 03/16/2025 Orders Only GENERIC EXTERNAL DATA DEPARTMENT Provider, Generic External Data 03/11/[address] [address] Medina Lewis, RONALD 03/04/2025 Orders Only [address] [address] Emilie Davis MD Pancreatic adenocarcinoma (CMS/HCC) (HCC) (Primary Dx) 03/03/2025 9:30 AM EDT Office Visit [address] [address] Emilie Davis MD Pancreatic adenocarcinoma (CMS/HCC) (HCC) (Primary Dx); Insomnia secondary to depression with anxiety 03/03/2025 Travel 02/26/[address] [address] Emilie Davis MD Interoffice Coordination 02/25/2025 1:40 PM EDT Office Visit [facility] [address] [place] [phone] Ann-Marie Muhammad MD Pain of left calf (Primary Dx); Pancreatic adenocarcinoma (CMS/HCC) (HCC) 02/25/2025 Results Follow-Up [facility] [address] [place] [address] Ann-Marie Muhammad MD Lower Extremity Venous Duplex 02/25/2025 Orders Only [facility] [address] [place] [address] Ann-Marie Muhammad MD 02/25/2025 Travel 02/24/2025 Orders Only [facility] [address] [place] [address] Sammy Dowd MD Pancreatic mass (Primary Dx) 02/23/2025 Patient Outreach [facility] [address] [place] [phone] Emilie Davis MD Pre-visit Planning (Pre-visit planning - LVM ) 02/22/2025 Patient Outreach [facility] [address] [place] [address] Emilie Davis MD Transition Of Care (Tcm) (Unscheduled ) 02/22/2025 Telephone [facility] [address] [place] [address] Emilie Davis MD Hospital Follow-up 02/19/2025 Orders Only [facility] [address] [place] [address] Sammy Dowd MD 02/19/2025 Telephone [facility] [address] [place] [address] Emilie Davis MD 02/18/2025 Orders Only GENERIC EXTERNAL DATA DEPARTMENT Provider, Generic External Data 02/16/2025 Telephone [facility] [address] [place] [address] Medina Lewis RN 02/09/2025 Orders Only [facility] External Provider, [facility] Chronic bilateral low back pain, unspecified whether sciatica present (Primary Dx) 02/05/2025 Orders Only [address] [address] Emilie Davis MD Depression, unspecified depression type (Primary Dx) 02/04/[address] [address] Emilie Davis MD Care Coordination; Referral 02/04/[address] [address] Emilie Davis MD Referral; Care Coordination 02/02/2025 Orders Only [address] [address] Kayla Sellers RN 02/01/2025 Orders Only GENERIC EXTERNAL DATA DEPARTMENT Provider, Generic External Data 01/27/2025 11:00 AM EDT Clinical Support [address] [address] Medina Lewis, RONALD On pre-exposure prophylaxis for HIV (Primary Dx) 01/27/2025 Orders Only [address] [address] Emilie Davis MD 01/27/2025 Travel 01/21/2025 Travel 01/19/2025 Orders Only [facility] External Provider, [facility] Pancreatic mass (Primary Dx) 01/15/2025 Orders Only GENERIC EXTERNAL DATA DEPARTMENT Provider, Generic External Data 01/14/2025 Orders Only [facility] External Provider, [facility] Generalized abdominal pain (Primary Dx) 01/08/2025 Orders Only GENERIC EXTERNAL DATA DEPARTMENT Provider, Generic External Data 01/07/[address] [address] Emilie Davis MD Call Back Request; Injectable PrEP Communication 01/04/2025 Patient Outreach [address] [address] Emilie Davis MD Transition Of Care (Tcm) (HDF unscheduled) 01/04/[address] [address] Emilie Davis MD Nurse Triage 01/04/2025 Telephone [facility] [address] [place], [place] [phone] Emilie Davis MD Hospital Follow-up; No Show [...] Industry Job Start Date Job End Date [employer] Not on file Not on file Not on file Last Filed Vital Signs Vital Sign Reading Time Taken Comments Blood Pressure 100/72 03/03/2025 9:26 AM EDT Pulse 88 03/03/2025 9:26 AM EDT Temperature 37.2 C (98.9 F) 03/03/2025 9:26 AM EDT Respiratory Rate 20 03/03/2025 9:26 AM EDT Oxygen Saturation 98% 03/03/2025 9:26 AM EDT Inhaled Oxygen Concentration - - Weight 47.9 kg (105 lb 9.6 oz) 03/03/2025 9:26 A M EDT Height 165.1 cm (5' 5 ) 03/03/2025 9:26 AM EDT Body Mass Index 17.57 03/03/2025 9:26 AM EDT Plan of Treatment Upcoming Encounters Date Type Department Care Team (Late st Contact Info) Description 03/24/2025 11:00 AM EST Clinical Support [facility] [address] [place] [phone] Patrizia Albrecht, RONALD [address] [place] [phone] 03/31/2025 10:15 AM EST Telemedicine [facility] [address] [place] [address], [place] [address] Emilie Davis MD [address] [place], [place] [phone] 06/04/2025 3:00 PM EST Office Visit [facility] [address] [place], [place] [phone] Merissa Donis, OD [address] [place] [address] Health Maintenance Due Date Last Done Comments CT Colonography 1969 FIT DNA/Cologuard 1970 FIT 1970 FOBT 1970 Sigmoidoscopy 1970 Disability Screening 1970 Pneumococcal Vaccine: 50+ Years (2 of 2 - PCV) 09/17/2018 09/17/2017 Colonoscopy 01/30/2023 01/30/2018 Colorectal Cancer Screening 01/30/2023 Zoster Vaccines (1 of 2) 02/01/2023 COVID-19 Vaccine ( season) 2025 06/05/2021, 10/11/2020, 09/14/2020 Influenza Vaccine (#1) 2025 06/18/2019, 2017 Alcohol/Substance Use Screening 05/20/2025 05/20/2024 Depression Monitoring 09/01/2025 03/03/2025, 025 SDOH Screening 03/03/2026 03/03/2025 Tobacco Screening 03/03/2026 03/03/2025 HPV/Cotest 03/22/2028 03/22/2023, 11/11, 12/06/2017 Pap Smear [...] TROPONIN I Routine 03/22/2025 11:26 AM EST LIPASE Routine 03/22/2025 11:26 AM EST MAGNESIUM Routine 03/22/2025 11:26 AM EST BASIC METABOLIC PANEL Routine 03/22/2025 11:26 AM EST HEPATIC FUNCTION PANEL Routine 11:26 AM EST LACTIC ACID Routine 03/22/2025 11:26 AM EST CBC WITH AUTO DIFFERENTIAL Routine 03/22/2025 11:26 AM EST SARS COV2/INFLUENZA A/B AND RSV RNA QL NAAT Routine 03/22/2025 11:26 AM EST PROTHROMBIN TIME-INR Routine 03/16/2025 7:45 AM EST LOWER EXTREMITY VENOUS DUPLEX LEFT Routine 02/25/2025 [...] 01/27/2025 11:53 AM EDT CHLAMYDIA/GONORRHEA THROAT SWAB ([facility]) Routine 01/27/2025 MR ABDOMEN W AND WO [...] Relevant to Health Maintenance Results * CT Head w/o Contrast (03/22/2025 1:03 PM EST) Anatomical Region Laterality Modality Head, Neck Computed Tomogra phy 03/22/2025 1:03 PM EST Narrative 03/22/2025 1:51 PM EST [place] [address] CT Scan Report Signed Patient: Harriet Valdez MR#: [id number] : 1970 Acct:[id number] Age/Sex: 55 / F ADM Date: 03/22/25 Loc: HO.ED Attending Dr: Ordering Physician: Virginia Monroe DO Date of Service: 03/22/25 Procedure(s): CT head/brain wo IV con Accession Number(s): [id number] cc: Emilie Davis MD; Virginia Monroe DO Report Number: [id number]: Total DLP = 496.00 mGy-cm Reason for [...] by: Eric Daley MD 03/22/2025 01:48 PM [facility] Dictated By: Eric Maki MD Signed By: <Electronically signed by Eric Irnee MD in OV> 03/22/25 1348 DD/ 1303 TD/TT: 03/22/25 1341 Theater Projectionist: Procedure Note Donotuseinterpreter, Image - 03/22/[address] [address] [address] Scan Report Signed Patient: Harriet ValdezMR#: [id number] : 1970Acct:[id number] Age/Sex: 55 / FADM Date: 03/22/25 Loc: HO.ED Attending Dr: Ordering Physician: Virginia Monroe DO Date of Service: 03/22/25 Procedure(s): CT head/brain wo IV con Accession Number(s): [id number] cc: Emilie Davis MD; [place],Mel Report Number: [id number]: Total DLP = 496.00 mGy-cm Reason for [...] 03/22/25 1348 DD/ 1303 TD/TT: 03/22/25 1341 Theater Projectionist: [facility] External Provider IMG CT PROCEDURES Edited Result - Final * High Sensitivity Troponin I (03/22/2025 11:26 AM EST) TROPONIN I HIGH SENSITIVITY 3.2 <3.5 - 17.0 ng/L [facility] Comment:The [place] high sens itivity Troponin-I results should beused in conjunction with other diagnostic information suchas ECG, clinical observations and information, and patientsymptoms to aid in the diagnosis of CT. 03/22/2025 11:2 6 AM EST 03/22/2025 11:37 AM EST Generic External Data Provider LAB BLOOD ORDERAB LES Final Result Performing Organization Address [facility]/ZIP Co de Phone Number [facility] [address] [place] [phone] * SARS-CoV-2 RNA, Influenza A/B, and RSV RNA, Ql NAAT (03/22/2025 11:26 AM EST) Influenza A PCR NEGATIVE Negative [facility] Influenza B PCR NEGATIVE Negative [facility] Resp Syncy Virus RNA Qual PCR NEGATIVE Negative [facility] SARS COV2 PCR NEGATIVE Negative [facility] Comment:All test results mus t [...] use by authorized laboratories.Testing performed on the [employer] GeneXpert utilizingreal-time RT-PCR.All SARS CoV2 and positive influenza A/B results arereported to [facility]. 03/22/2025 11:2 6 AM EST 03/22/2025 11:37 AM EST Generic External Data Provider LAB MICROBIOLOGY - GENERAL ORDERABLES Final Result Performing Organization Address [facility]/ZIP Co de Phone Number [facility] [address] [place] [phone] * (ABNORMAL) CBC auto differential (03/22/2025 11:26 AM EST) Only the most recent of5 resultswithin the time period is included. White Blood Count 8.5 4.8 - 10.8 X10*3/uL [facility] Red Blood Count 5.70(H) 4.20 - 5.50 X10*6/uL [facility] Hemoglobin 16.8(H) 12.0 - 16.0 g/dl [facility] Hematocrit 48.9(H) 37.0 - 47.0 % [facility] Mean Corpuscular Volume 85.8 80.0 - 98.0 fL [facility] Mean Corpuscular Hemoglobin 29.5 27.0 - 33.0 pg [facility] Mean Corpuscular HGB Conc 34.4 31.0 - 35.0 g/dl [facility] Red Cell Distribution Width 13.3 11.0 - 16.0 % [facility] Platelet Count 189 160 - 400 X10*3/uL [facility] Mean Platelet Volume 9.9 9.4 - 12.3 fL [facility] Neutrophils Percent Auto 66.1 45 - 73 % [facility] Imm Gran Pct Auto 0.5(H) 0.0 - 0.4 % [facility] Lymphocytes Percent Auto 30.9 20 - 40 % [facility] Monocytes Percent Auto 1.9(L) 2 - 11 % [facility] Eosinophils Percent Auto 0.4 0 - 4 % [facility] Basophils Percent Auto 0.2 0 - 2 % [facility] NRBC Pct Auto 0.0 0.0 - 0.2 /100WBC [facility] Neutrophils Absolute Auto 5.6 2.0 - 8.3 x10*3/uL [facility] Imm Gran Abs Auto 0.04(H) 0.00 - 0.03 X10*3/uL [facility] Lymphocytes Absolute Auto 2.6 1.2 - 4.9 X10*3/uL [facility] Monocytes Absolute Auto 0.2 0.1 - 1.2 X10*3/uL [facility] Eosinophils Absolute Auto 0.0 0.0 - 0.4 X10*3/uL [facility] Basophils Absolute Auto 0.0 0.0 - 0.2 X10*3/uL [facility] NRBC Abs Auto 0.000 0.0 - 0.012 X10*3/uL [facility] 03/22/2025 11:2 6 AM EST 03/22/2025 11:37 AM EST Generic External Data Provider LAB BLOOD ORDERAB LES Final Result Performing Organization Address City/[facility]/ZIP Co de Phone Number [facility] [address] [place] [phone] * Magnesium (03/22/2025 11:26 AM EST) Magnesium 2.1 1.6 - 2.6 mg/dL [facility] 03/22/2025 11:2 6 AM EST 03/22/2025 11:37 AM EST Generic External Data Provider LAB BLOOD ORDERAB LES Final Result Performing Organization Address [facility] Co de Phone Number [facility] [address] [place] [phone] * Lipase (03/22/2025 11:26 AM EST) Only the most recent of4 resultswithin the time period is included. Lipase 44 8 - 78 U/L [facility] 03/22/2025 11:2 6 AM EST 03/22/2025 11:37 AM EST Generic External Data Provider LAB BLOOD ORDERAB LES Final Result Performing Organization Address [facility]/ZIP Co de Phone Number [facility] [address] [place] [phone] * Lactic Acid (03/22/2025 11:26 AM EST) Only the most recent of2 resultswithin the time period is included. Lactic Acid 1.6 0.5 - 2.0 mmol/L [facility] 03/22/2025 11:2 6 AM EST 03/22/2025 11:37 AM EST Generic External Data Provider LAB BLOOD ORDERAB LES Final Result Performing Organization Address City/[facility]/ZIP Co de Phone Number [facility] [address] [place] [phone] * (ABNORMAL) Hepatic Function Panel (03/22/2025 11:26 AM EST) Only the most recent of2 resultswithin the time period is included. Bilirubin, Total 0.8 0.0 - 1.0 mg/dL [facility] Bilirubin, Direct 0.2 0.0 - 0.5 mg/dL [facility] Aspartate Amino Transferase 30 5 - 31 U/L [facility] Alanine Aminotransferase 33(H) 0 - 31 U/L [facility] Total Protein 7.8 6.5 - 8.0 g/dL [facility] Albumin Level 4.5 3.5 - 5.0 g/dL [facility] Alkaline Phosphatase 100 39 - 117 U/L [facility] 03/22/2025 11:2 6 AM EST 03/22/2025 11:37 AM EST [facility] External Data Provider LAB BLOOD ORDERAB LES Final Result Performing Organization Address City/[facility] Co de Phone Number [facility] [address] [place] [phone] * (ABNORMAL) Basic Metabolic Panel (03/22/2025 11:26 AM EST) Only the most recent of2 resultswithin the time period is included. Sodium 137 135 - 145 mmol/L [facility] Potassium 3.8 3.3 - 5.1 mmol/L [facility] Chloride 106 96 - 108 mmol/L [facility] Carbon Dioxide 21(L) 22 - 29 mmol/L [facility] Anion Gap 14 12 - 20 [facility] Urea Nitrogen (BUN) 12 9 - 16 mg/dL [facility] Creatinine, Serum 0.68 0.5 - 1.4 mg/dL [facility] Creatinine Clr Calc Pharmacy 65.0 [facility] Comment:Provided height and weight: 165.1 cm,44.6 kg.eGFR (calculated from the MDRD study equation) and eCrCl(calculated from the Cockcroft-Gault equation) are based ondifferent parameters and may not yield comparable results.If eCrCl result is absurd, please check patient'sheight/weight. Estimated Glomerular Filt Rate >60 [facility] Comment:Chronic Kidney Disea se: Estimated GFR < 60 mL/min/1.98c0Bpxkov Kidney Disease: Estimated GFR < 15 mL/min/1.73m2 Glucose 111 60 - 115 mg/dL [facility] Calcium 9.7 8.4 - 10.2 mg/dL [facility] 03/22/2025 11:2 6 AM EST 03/22/2025 11:37 AM EST us Generic External Data Provider LAB BLOOD ORDERAB LES Final Result [facility] [address] [place] [phone] * Prothrombin Time-INR (03/16/2025 7:45 AM EST) Only the most recent of2 resultswithin the time period is included. Prothrombin Time 11.4 10.9 - 12.4 SEC [facility] INTERNATIONAL NORM RATIO 1.0 0.9 - 1.1 [facility] Comment:INTERNATIONAL NORMAL IZED RATIO (INR) REFERENCE RANGES Reference RangeFor patients not on anticoagulant therapy: 0.9 - 1.1INR ranges for oral anticoagulanttherapy:For prevention and treatment of venous thrombosis and pulmonary embolism: 2.0 - 3.0For acute myocardial infarction with aspirin therapy: 2.0 - 3.0For acute myocardial infarction without aspirin therapy: 3.0 - 4.0For patients with mechanical prosthetic heart valves: 2.5 - 3.5 03/16/2025 7:45 AM EST 03/16/2025 7:45 AM EST us Generic External Data Provider LAB BLOOD ORDERAB LES Final Result Performing Organization Address City/State/[facility] Co de Phone Number [facility] [address] [place] [phone] * Lower Extremity Venous Duplex (02/25/2025 3:27 PM EDT) 02/25/2025 3:27 PM EDT Narrative [facility] - 02/25/2025 3:48 PM EDT [address] [address] Ultrasound Report Signed Patient: Harriet Valdez MR#: [id number] : 1970 Acct:[id number] Age/Sex: 55 / F ADM Date: 02/25/25 Loc: HO.US Attending Dr: Ann-Marie Muhammad MD Ordering Physician: Ann-Marie Muhammad MD Date of Service: 02/25/25 Procedure(s): US venous duplex LE LT Accession Number(s): [id number] cc: Emilie Davis MD; Ann-Marie Muhammad MD [...] 02/25/25 1546 DD/ 1527 TD/TT: 02/25/25 153 Theater Projectionist: Procedure Note Donotuseinterpreter, Image - 02/25/[address] [address] Ultrasound Report Signed Patient: Harriet ValdezMR#: [id number] : 1970Acct:[id number] Age/Sex: 55 / FADM Date: 02/25/25 Loc: .US Attending Dr: Ann-Marie Muhammad MD Ordering Physician: Ann-Marie Muhammad MD Date of Service: 02/25/25 Procedure(s): US venous duplex LE LT Accession Number(s): [id number] cc: Emilie Davis MD; Ann-Marie Muhammad MD [...] 02/25/25 1546 DD/ 1527 TD/TT: 02/25/25 153 Theater Projectionist: us Ann-Marie Muhammad MD CV VASCULAR PROCEDURES Final Result Performing Organization Address City/State/[facility] Co de Phone Number [facility] [address] [place] [phone] * XR Tibia Fibula 2 Views Left (02/25/2025 3:14 PM EDT) Anatomical Region Laterality Modality Lower Extremities, Lower Leg Left Rad iographic Imaging 02/25/2025 3:14 PM EDT Narrative 02/25/2025 3:28 PM EDT [place] [address] XRay Report Signed Patient: Harriet Valdez MR#: [id number] : 1970 Acct:[id number] Age/Sex: 55 / F ADM Date: 02/25/25 Loc: . Attending Dr: Ann-Marie Muhammad MD Ordering Physician: Ann-Marie Muhammad MD Date of Service: 02/25/25 Procedure(s): XR tibia fibula LT 2V Accession Number(s): [id number] cc: Emilie Davis MD; Ann-Marie Muhammad MD [...] 02/25/25 1525 DD/ 1514 TD/TT: 02/25/25 1521 Theater Projectionist: Procedure Note Donotuseinterpreter, Image - 02/25/[address] [address] XRay Report Signed Patient: Harriet ValdezMR#: [id number] : 1970Acct:[id number] Age/Sex: 55 / FADM Date: 02/25/25 Loc: HO.US Attending Dr: Ann-Marie Muhammad MD Ordering Physician: Ann-Marie Muhammad MD Date of Service: 02/25/25 Procedure(s): XR tibia fibula LT 2V Accession Number(s): [id number] cc: Emilie Davis MD; Ann-Marie Muhammad MD [...] 02/25/25 1525 DD/ 1514 TD/TT: 02/25/25 1521 Theater Projectionist: Ann-Marie Muhammad MD IMG XR PROCEDURES Final [...] PM EDT Narrative 02/18/2025 9:23 PM EDT [address] [address] [address] Scan Report Signed Patient: Harriet Valdez MR#: [id number] : 1970 Acct:[id number] Age/Sex: 55 / F ADM Date: 02/18/25 Loc: HO.ED Attending Dr: Ordering Physician: Bradford Rojas Date of Service: 02/18/25 Procedure(s): CT abdomen pelvis w IV con Accession Number(s): [id number] cc: Emilie Davis MD; Bradford Rojas Report Number: [id number]: Total DLP = 284.00 mGy-cm Reason for [...] in OV> 02/18/252121 DD/ 21 TD/TT: 02/18/252121 Theater Projectionist: Procedure Note Donotuseinterpreter, Image - 02/18/[address] [place] [address] [address] Scan Report Signed Patient: Harriet ValdezMR#: [id number] : 1970Acct:[id number] Age/Sex: 55 / FADM Date: 02/18/25 Loc: .ED Attending Dr: Ordering Physician: Bradford Rojas Date of Service: 02/18/25 Procedure(s): CT abdomen pelvis w IV con Accession Number(s): [id number] cc: Emilie Davis MD; Bradford Rojas Report Number: [id number]: Total DLP = 284.00 mGy-cm Reason for [...] in OV> 02/18/252121 DD/ 21 TD/TT: 02/18/252121 Theater Projectionist: [facility] External Provider IMG CT PROCEDURES Edited Result - Final * (ABNORMAL) Lactate Dehydrogenase (LD) (02/18/2025 3:28 PM EDT) Lactate Dehydrogenase 743(H) 122 - 220 U/L [facility] 02/18/2025 3:28 PM EDT 02/18/2025 3:28 PM EDT Generic External Data Provider LAB BLOOD ORDERAB LES Final Result [facility] [address] [place] [phone] * (ABNORMAL) Amylase (02/18/2025 3:28 PM EDT) Only the most recent of2 resultswithin the time period is included. Amylase 113(H) 28 - 100 U/L [facility] 02/18/2025 3:28 PM EDT 02/18/2025 3:28 PM EDT us Generic External Data Provider LAB BLOOD ORDERAB LES Final Result [facility] [address] [place] [address] [phone] * EGD (02/18/2025 2:59 PM EDT) Anatomical Region Laterality Modality Endoscopy Historical Provider MD ENDOSCOPY PROCEDURE ORDER TATUM Final Result * MR Lumbar Spine w/o Contrast (02/09/2025 6:20 PM EDT) Anatomical Region Laterality Modality Spine, L-spine Magnetic Resonan ce 02/09/2025 6:20 PM EDT Narrative 02/10/2025 7:18 AM EDT [address] [address] Magnetic Resonance Report Signed Patient: Harriet Valdez MR#: [id number] : 1970 Acct:[id number] Age/Sex: 54 / F ADM Date: 02/09/25 Loc: HO.MRI Attending Dr: Nakul Velasco MD Ordering Physician: Nakul Velasco MD Date of Service: 02/09/25 Procedure(s): MR lumbar spine wo con Accession Number(s): [id number] cc: Emilie Davis MD; Nakul Velasco MD [...] 02/10/25 0715 DD/ 1820 TD/TT: 02/09/25 1845 Theater Projectionist: Procedure Note Julisater, Image - 02/10/2025 [place] [address] Magnetic Resonance Report Signed Patient: Harriet ValdezMR#: [id number] : 1970Acct:[id number] Age/Sex: 54 / FADM Date: 02/09/25 Loc: HO.MRI Attending Dr: Nakul Velasco MD Ordering Physician: Nakul Velasco MD Date of Service: 02/09/25 Procedure(s): MR lumbar spine wo con Accession Number(s): [id number] cc: Emilie Davis MD; Nakul Velasco MD [...] 02/10/25 0715 DD/ 1820 TD/TT: 02/09/25 1845 Theater Projectionist: [facility] External Provider IMG MRI PROCEDURES Final Result * (ABNORMAL) CA 19-9 (02/01/2025 11:57 AM EDT) CA 19-9 671(A) <34 U/mL [facility] Comment:This test was perfor med using the Siemenschemiluminescent method. Values obtained fromdifferent assay methods cannot be usedinterchangeably. CA 19-9 levels, regardless ofvalue, should not be interpreted as absoluteevidence of the presence or absence of disease.THIS TEST WAS PERFORMED AT:[facility] [place] [id number] MALDONADO MD 02/01/2025 11:5 7 AM EDT 02/01/2025 11:57 AM EDT us Generic External Data Provider LAB BLOOD ORDERAB LES Final Result Performing Organization Address [facility]/ZIP Co de Phone Number [facility] [address] [place] [phone] * HIV-1 RNA, Quantitative, Real-Time PCR [...] to 7.00 log copies/mL).THIS TEST WAS PERFORMED AT:[facility] [address] [id number] MALDONADO MD 02/01/2025 11:5 7 AM EDT 02/01/2025 11:57 AM EDT Emilie Davis MD LAB BLOOD ORDERABLES Final Result Performing Organization Address [facility] Co de Phone Number [facility] [address] [place] [phone] * Homocysteine (02/01/2025 11:57 AM EDT) Homocysteine 7.4 < or = 13.4 umol/L [facility] Comment:Homocysteine is incr eased by functional deficiency offolate or vitamin B12. Testing for methylmalonic aciddifferentiates between these deficiencies. Other causesof increased homocysteine include renal failure, folateantagonists such as methotrexate and phenytoin, andexposure to nitrous oxide.Salvador Stevens et al., Caitlyn [employer] Chain Manager Med. 1999;131(5):331-9.THIS TEST WAS PERFORMED AT:[facility] [place] [id number] MALDONADO MD 02/01/2025 11:5 7 AM EDT 02/01/2025 11:57 AM EDT Generic External Data Provider LAB BLOOD ORDERAB LES Final Result [facility] [address] [place] [phone] * POCT Rapid HIV Screening (01/27/2025 1:50 PM EDT) Blood 01/27/2025 1:50 PM EDT Narrative Medina Lewis RN - 01/27/2025 1:50 PM EDT negative Emilie Davis MD POINT OF CARE TEST ENTER/E DIT ORDERABLES Final Result * (ABNORMAL) Comprehensive Metabolic Panel (01/27/2025 11:53 AM EDT) Only the most recent of2 resultswithin the time period is included. Sodium 143 135 - 145 mmol/L [facility] Potassium 3.8 3.3 - 5.1 mmol/L [facility] Chloride 108 96 - 108 mmol/L [facility] Carbon Dioxide 30(H) 22 - 29 mmol/L [facility] Anion Gap 9(L) 12 - 20 [facility] Urea Nitrogen (BUN) 13 9 - 16 mg/dL [facility] Creatinine, Serum 0.79 0.5 - 1.4 mg/dL [facility] Estimated Glomerular Filt Rate >60 [facility] Comment:Chronic Kidney Disea se: Estimated GFR < 60 mL/min/1.40f7Qxyvff Kidney Disease: Estimated GFR < 15 mL/min/1.73m2 Glucose 78 60 - 115 mg/dL [facility] Calcium 9.1 8.4 - 10.2 mg/dL [facility] Bilirubin, Total 0.2 0.0 - 1.0 mg/dL [facility] Aspartate Amino Transferase 22 5 - 31 U/L [facility] Alanine Aminotransferase 18 0 - 31 U/L [facility] Total Protein 7.2 6.5 - 8.0 g/dL [facility] Albumin Level 4.2 3.5 - 5.0 g/dL [facility] Alkaline Phosphatase 79 39 - 117 U/L [facility] 01/27/2025 11:5 3 AM EDT 01/27/2025 1:16 PM EDT Emilie Davis MD LAB BLOOD ORDERABLES Final Result Performing Organization Address City/State/[facility] Co de Phone Number [facility] [address] [place] [phone] * Chlamydia/Gonorrhea Throat Swab ([facility]) (01/27/2025) Chlamydia Throat Swab Negative Gonorrhea Throat Swab Negative Swab 01/27/2025 Sammy Provider LAB MICROBIOLOGY - GENERA L ORDERABLES Final Result * MR Abdomen w/ and w/o Contrast (01/20/2025 4:03 PM EDT) Anatomical Region Laterality Modality Abdomen Magnetic Resonan ce 01/20/2025 4:03 PM EDT Narrative 01/20/2025 4:05 PM EDT [address] [address] Magnetic Resonance Report Signed with Steve Patient: Harriet Valdez MR#: [id number] : 1970 Acct:[id number] Age/Sex: 54 / F ADM Date: 01/19/25 Loc: HO.MRI Attending Dr: Cha Mills MD Ordering Physician: Cha Mills MD Date of Service: 01/19/25 Procedure(s): MR abdomen wo/w con Accession Number(s): [id number] cc: Emilie Davis MD; Cha Mills MD [...] bile duct dilatation, concerning for malignancy. Recommend rn stars consultation, ERCP and tissue sampling. 2. Subcentimeter right hepatic hemangioma and cyst. 3. Diverticulosis coli. This document has been electronically signed by: Yumiko Jones MD on 01/20/2025 16:03:51 Dictated By: Yumiko Jones MD Signed By: <Electronically signed by Yumiko Jones MD in OV> 01/20/251604 DD/ 02 TD/TT: 01/20/251602 Theater Projectionist: Procedure Note Donotuseinterpreter, Image - 01/20/2025 [place] [address] Magnetic Resonance Report Signed with Addenda Patient: Harriet ValdezMR#: [id number] : 1970Acct:[id number] Age/Sex: 54 / FADM Date: 01/19/25 Loc: HO.MRI Attending Dr: Cha Mills MD Ordering Physician: Cah Mills MD Date of Service: 01/19/25 Procedure(s): MR abdomen wo/w con Accession Number(s): [id number] cc: Emilie Davis MD; Cha Mills MD [...] bile duct dilatation, concerning for malignancy. Recommend rn stars consultation, ERCP and tissue sampling. 2. Subcentimeter right hepatic hemangioma and cyst. 3. Diverticulosis coli. This document has been electronically signed by: Yumiko Jones MD on 01/20/2025 16:03:51 Dictated By: Yumiko Jones MD Signed By: <Electronically signed by Yumiko Jones MD in OV> 01/20/25 1605 DD/ 160 TD/TT: 01/20/25 160 Theater Projectionist: [facility] External Provider IMG MRI PROCEDURES Edited Result - Final * Hematoxylin and Eosin Stain (01/15/2025 3:32 PM EDT) 01/15/2025 3:32 PM EDT 01/18/2025 7:08 AM EDT Narrative [facility] - 01/19/2025 12:19 PM EDT ----- ------- Name: Harriet Valdez Age/Sex: 54/F : 1970 Unit#: [id number] Attend Dr: Mary Alice Mayorga MD Re01/15/25 Status: [facility] Location: [facility] Disch: ----- ------- SPEC : [id number] RECD: 01/18/25 STATUS: JANIE DUNLAP NUM: [id number] AMBREEN: 01/15/25-[address] [facility] [address]: Mary Alice Mayorga MD ENTERED: [...] bx's insert (sic) is a 0.35 cm morin-white thin and delicate rectangular tissue fragment, submitted in toto in a cassette labeled A. Part B: Received in formalin labeled proximal esophagus bx's (sic) is a 0.3 cm morin-white thin and delicate rectangular tissue fragment, submitted in toto in a cassette labeled B. CEDS Special stains ordered and performed: AB/PAS on A-B. IHC S/NG Disclaimer NOTE: Unless otherwise stated, all tissue is formalin-fixed and paraffin-embedded. Some or all of the immunohistochemical tests reported herein may have been developed and their performance characteristics determined by [facility]. They have not been cleared or approved by the U.S. Food and Drug Administration (FDA). However, the FDA CONTINUED ON NEXT PAGE ----- ------- Name: Harriet Valdez Age/Sex: 54/F : 1970 Unit#: [id number] Attend Dr: Mary Alice Mayorga MD Re01/15/25 Status: [facility] Location: [facility] Disch: ----- ------- SPEC : [id number] RECD: 01/18/25 STATUS: JANIE DUNLAP NUM: [id number] AMBREEN: 01/15/25-[address] [facility] [address]: Mary Alice Mayorga MD ENTERED: [...] laboratory testing. Copies To: Emilie Davis MD [address] [address] Mary Alice Mayorga MD [facility] [address] [place] [phone] ----- ------- Signed (signature on file) Yara Dodson MD 01/19/25 1219 ----- ------- END OF REPORT Generic External Data Provider LAB BLOOD ORDERAB LES Final Result [facility] [address] [place] [phone] * FL Esophagus Barium Swallow (01/14/2025 9:40 AM EDT) Anatomical Region Laterality Modality Head, Neck Radiographic Aurora ging 01/14/2025 9:40 AM EDT Narrative 01/14/2025 11:23 AM EDT [address] [address] Fluoroscopy Report Signed Patient: Harriet Valdez MR#: [id number] : 1970 Acct:[id number] Age/Sex: 54 / F ADM Date: 01/14/25 Loc: MARINO Attending Dr: Aida ASH Ordering Physician: Aida Orozco Date of Service: 01/14/25 Procedure(s): FL barium swallow Accession Number(s): [id number] cc: Emilie Davis MD; Aida Orozco Reason [...] MD Signed By: <Electronically signed by Jimmy Pderoza MD in OV> 01/14/25 1120 DD/ 0940 TD/TT: 01/14/25 0955 Theater Projectionist: [facility] Procedure Note Donotuseinterpreter, Image - 01/14/2025 [place] [address] Fluoroscopy Report Signed Patient: Harriet ValdezMR#: [id number] : 1970Acct:[id number] Age/Sex: 54 / FADM Date: 01/14/25 Loc: HODEANGELO Attending Dr: Aida LEMOS-Cristina Ordering Physician: Aida Orozco Date of Service: 01/14/25 Procedure(s): FL barium swallow Accession Number(s): [id number] cc: Emilie Davis MD; Aida Orozco Reason [...] 01/14/25 1120 DD/ 0940 TD/TT: 01/14/25 0955 Theater Projectionist: MADINA us [facility] External Provider IMG FLU OROSCOPY PROCEDURES Final Result * XR Abdomen 2 View minimum (01/08/2025 10:50 AM EDT) Anatomical Region Laterality Modality Abdomen Radiographic Aurora ging 01/08/2025 10:5 0 AM EDT Narrative 01/08/2025 12:26 PM EDT [place] [address] XRay Report Signed Patient: Harriet Valdez MR#: [id number] : 1970 Acct:[id number] Age/Sex: 54 / F ADM Date: 01/08/25 Loc: HO.SHANNONAY Attending Dr: Aida LEMOS-Cristina Ordering Physician: Aida Orozco Date of Service: 01/08/25 Procedure(s): XR abdomen min 2V Accession Number(s): [id number] cc: Emilie Davis MD; Aida Orozco EXAMINATION: [...] by Manish Deras MD in OV> 01/08/25 122 DD/ 1050 TD/TT: 01/08/251056 Theater Projectionist: Procedure Note Donotuseinterpreter, Image - 01/08/2025 [place] [address] XRay Report Signed Patient: Harriet ValdezMR#: [id number] : 1970Acct:[id number] Age/Sex: 54 / FADM Date: 01/08/25 Loc: HO.SHANNONAY Attending Dr: Aida ASH Ordering Physician: Aida Orozco Date of Service: 01/08/25 Procedure(s): XR abdomen min 2V Accession Number(s): [id number] cc: Emilie Davis MD; Aida Orozco EXAMINATION: [...] by Manish Deras MD in OV> 01/08/25 122 DD/ 1050 TD/TT: 01/08/251056 Theater Projectionist: [facility] External Provider IMG XR PROCEDURES Edited Result - Final * (ABNORMAL) VITAMIN D 25-OH (D2 AND D3) (01/08/2025 10:47 AM EDT) Vitamin D, 25-OH, D2 <4 ng/mL [facility] Comment:This test was develo ped and its analytical performancecharacteristics have been determined by [employer] [place], [place]. It hasnot been cleared or approved by the .[place]. Food and DrugAdministration. This assay has been validated pursuantto the CLIA regulations and is used for clinicalpurposes.THIS TEST WAS PERFORMED AT:[employer] [id number] [place] [id number] ESTEVEZ MD,PHD Vitamin D, 25-OH, D3 28 ng/mL [facility] Comment:This test was develo ped and its analytical performancecharacteristics have been determined by [employer] [place], [place]. It hasnot been cleared or approved [...] = 30 ng/mL.For additional information, please refer tohttp://education.[employer]/faq/CHG213(This link is being provided for informational/educational purposes only.) 01/08/2025 10:4 7 AM EDT 01/08/2025 10:47 AM EDT us Generic External Data Provider LAB BLOOD ORDERAB LES Final Result [facility] [address] [place] [phone] * Sed Rate by Modified Westergren (01/08/2025 10:47 AM EDT) [facility] Erythrocyte Sedimentation Rate 9 0 - 20 MM/HR [facility] Comment:Patients with polycy themia and many hemoglobin abnormalitiesmay have depressed sed rates whereas patients with anemiamay have elevated sed rates. 01/08/2025 10:4 7 AM EDT 01/08/2025 10:47 AM EDT Generic External Data Provider LAB BLOOD ORDERAB LES Final Result [facility] [address] [place] [phone] * C-reactive Protein (01/08/2025 10:47 AM EDT) [facility] C Reactive Protein <0.10 < or = 0.50 mg/dL [facility] 01/08/2025 10:4 7 AM EDT 01/08/2025 10:47 AM EDT [facility] External Data Provider LAB BLOOD ORDERAB LES Final Result Performing Organization Address City/[facility]/ZIP Co de Phone Number [facility] [address] [place] [address] [phone] * (ABNORMAL) Drug Monitoring, Panel 1, Screen, Urine (12/29/2024 1:09 PM EDT) [facility] Opiate Screen Urine Not Detected Not Detect [...] Provider LAB URINE ORDERAB LES Final Result [facility] [address] [place] [address] [phone] * Urinalysis w/reflex microscopic (12/29/2024 1:09 PM EDT) Color Urine Yellow [facility] Appearance Urine Clear [facility] PH 8.0 5.0 - 9.0 [facility] Glucose Urine UA Negative Negative mg/dL [facility] Urine Blood Negative Negative [facility] Specific [place] - Urine 1.015 1.005 - 1.025 [facility] Urine Protein Negative Neg-Trace mg/dL [facility] Urine Ketones Negative Negative mg/dL [facility] Nitrite Urine Negative Negative [facility] Leukocyte Esterase Urine Negative Negative [facility] 12/29/2024 1:09 PM EDT 12/29/2024 1:16 PM EDT Narrative [facility] - 12/29/2024 1:22 PM EDT Urine, Clean Catch us Generic External Data Provider LAB URINE ORDERAB LES Final Result Performing Organization Address City/State/[facility] Co de Phone Number [facility] [address] [place] [phone] * (ABNORMAL) Lipid Panel, Standard (07/24/2024 1:36 PM EDT) Triglycerides 141 <150 mg/dL [facility] Comment:Desirable Triglyceri de: less than [...] 190 mg/dL HDL Cholesterol 63 >40 mg/dL [facility] Comment:Desirable HDL: great er than 40 mg/dL Note: This HDL assay may give artificially low results in patients with liver disease. 07/24/2024 1:36 PM EDT 07/24/2024 4:20 PM EDT Generic External Data Provider LAB BLOOD ORDERAB LES Final Result Performing Organization Address [facility]/ZIP Co de Phone Number [facility] [address] [place] [phone] * HPV mRNA E6/E7 w/Reflex to [...] alternative testing options.For additional information, please refer tohttp://education.[employer]/faq/UFP603k3(This link if provided for information/educational purposes only.)THIS TEST WAS PERFORMED AT:[employer] [place] [phone] MALDONADO MD HPV mRNA E6/E7 TNP [facility] HPV 16 [facility] HPV 18/45 RNA [facility] 03/22/2023 11:3 0 AM EST 03/25/2023 12:20 PM EST Emilie Davis MD LAB CYTOLOGY ORDERABLES Fi nal Result Performing Organization Address [facility]/ZIP Co de Phone Number [facility] [address] [place] [phone] * Pap Smear (03/22/2023 11:30 AM EST) 03/22/2023 11:3 0 AM EST 03/25/2023 12:20 PM EST Heath [facility] - 04/11/2023 11:26 AM EST ----- ------- Name: Trace Roberson,Harriet Age/Sex: 53/F : 1970 Unit#: [id number] Attend Dr: RADHA VILLAREAL MD Re03/22/23 Status: DEP REF Location: HO.HHCLNP Disch: ----- ------- SPEC : [id number] RECD: 03/25/230 STATUS: JANIE DUNLAP NUM: [id number] AMBREEN: 03/22/[address] [facility] [address]: Emilie Davis MD ENTERED: 03/25/23-5156 SP TYPE: Pap Smr OT DR: ORDERED: Pap Smear Interpretation Satisfactory for evaluation. Negative for intraepithelial lesion or malignancy. HPV mRNA E6/E7: NOT DETECTED This assay detects E6/E7 viral messenger RNA (mRNA) from 14 high-risk HPV types (16, 18, 31, 33, 35, 39, 45, 51, 52, 56, 58, 59, 66, 68) HPV testing performed by [employer], [place], [place]. See reference laboratory portion of the EMR for entire report. Clinical Information LMP: Unknown date Previous PAP test: Unknown date, WNL Other history: Pt on testosterone, surgical post menopause Material Received ThinPrep-Cervical ----- ------- Signed (signature on file) SERENA Alejandro (ASCP) 04/11/23 1126 ----- ------- END OF REPORT Emilie Davis MD LAB CYTOLOGY ORDERABLES Fi nal Result [facility] [address] [place] [phone] * Colonoscopy (01/30/2018) Colonoscopy normal Historical Provider HEALTH MAINTENANCE Final Result from Last 3 Months or Most Recently Relevant to Health Maintenance [place] [address] [address] [address] Mailbox 3 Advance Directives Documents on File Type Date Recorded 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[employer] 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 Expl 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 Advance Directives and Living Will 03/16/2024 Health Care Proxy 03/16/24 Care Teams Corporate Manager Relationship Specialty Start Date End Date Ryan, MD Emilie [address] [place] [phone] PCP - General Family Medicine 05/13/18August [address] [place] [address] Gastroenterology 05/26/24 Fred Castanon [address] [place] [phone] Cardiology 07/21/24 Ele Mar MD [address] [place] [address] Hematology and Oncology 02/22/25 Marina Brown MD Rheumatology 02/10/25 Costa Miller MD Attending Hepatobiliary & Pancreatic Surgeon Division of Surgical Oncology [facility] Surgical Oncology 03/11/25
--- OUTSIDE RECORDS SUMMARY | 2025-03-22 13:55 | XMS_ITS | Encounter Summary ---
Author Organization [facility] Address [address] [facility] [facility] 7t [place] [address] Care Team Providers Care Biodiesel Product Manager Name Role Phone Emilie Davis MD Primary Care Provider [phone] Morales Echavarria Unavailable Unavailable August Unavailable Fred Castanon Unavailable Ele Mar MD Unavailable [phone] Reason for Visit * Reason Comments Med Refill Encounter Details Date Type Department Care Team (Late st Contact Info) Description 06/27/2022 Refill [facility] [address] [place] [phone] Emilie Davis MD [address] [place] [address] [phone] Social History Tobacco Use Types Packs/Day Years [...] Description 03/24/2025 11:00 AM EST Clinical Support [facility] [address] [place] [phone] Patrizia Albrecht, RONALD [address] [place] [phone] 03/31/2025 10:15 AM EST Telemedicine [facility] [address] [place] [address] Emilie Davis MD [address] [place] [address] 06/04/2025 3:00 PM EST Office Visit [facility] [address] [place] [address] Gagandeep, Merissa, OD [address] [place] [address] documented as of this encounter Visit Diagnoses Not on filedocumented in this encounter Care Teams Biodiesel Product Manager Relationship Specialty Start Date End Date Emilie Davis MD [address] [place] [phone] PCP - General Family Medicine 05/13/18 Morales Echavarria FNP [address] [place] [phone] Nurse Practitioner Family Medicine 04/16/23 03/10/25 Pam Aida [address] [place] [address] Gastroenterology 05/26/24 Fred Castanon [address] [place] [address] Cardiology 07/21/24 Ele Mar MD [address] [place] [address] Hematology and Oncology 02/22/25 Marina Brown MD Rheumatology 02/10/25 Costa Miller MD Attending Hepatobiliary & Pancreatic Surgeon Division of Surgical Oncology [facility] Surgical Oncology 03/11/25 documented as of this encounter
--- OUTSIDE RECORDS SUMMARY | 2025-03-22 13:55 | XMS_ITS | Clinical Summary ---
Author Organization [facility] Address [address] [place] [phone] Phone Care Team Providers Care Pillowcase Maker Name Role Phone Emilie Davis MD [...] Description 03/09/2025 3:00 PM EDT Office Visit [facility] [place] [place] General & Gastrointestinal Surgery [address] 4th Floor, [address] [place] [address] Costa Miller MD 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) 03/08/2025 Ancillary Orders [facility] [address] [place] [phone] Costa Miller MD 03/08/2025 Ancillary Orders [facility] [address] [place] [phone] Costa Miller MD 03/04/2025 Ancillary Orders [facility] [address] [place] [address] Heriberto Tan MD 03/04/2025 Ancillary Orders [facility] [address] [place] [address] Heriberto Tan MD 02/23/2025 - 02/23/2025 11:59 PM EDT Hospital Encounter [facility] [address] [place] [address] Heriberto Tan MD Discharge Disposition: Home or Self Care 02/18/2025 - 02/18/2025 11:59 PM EDT Hospital Encounter [facility] [address] [place] [address] Heriberto Tan MD Discharge Disposition: Home or Self Care 01/19/2025 - 01/19/2025 11:59 PM EDT Hospital Encounter [facility] [address] [place] [address] Costa Miller MD Discharge Disposition: Home or Self Care 12/29/2024 - 12/29/2024 11:59 PM EDT Hospital Encounter [facility] [address] [place] [address] Costa Miller MD Discharge Disposition: Home or Self Care from Last 3 Months Family History Medical [...] HIV ONE-TIME SCREENING (18-6 5 YEARS) 1987 ZOSTER VACCINES (1 of 2) 02/12/1988 MAMMOGRAM 2009 COLOGUARD 2014 COLONOSCOPY 2014 COLORECTAL CANCER SCREENING 2014 FIT TEST 2014 FOBT 2014 SIGMOIDOSCOPY 2014 VIRTUAL COLONOSCOPY 2014 PNEUMOCOCCAL VACCINES (50+ years) (2 of 2 - PCV) 09/17/2018 09/17/2017 INFLUENZA VACCINE (#1) 2024 , 03/31/2018 COVID-19 VACCINE (2 - 2024-2 6 [...] patient's age to complete this topic IPV VACCINES Aged Out No longer eligi ble [...] AM EDT) 03/08/2025 8:59 AM EDT Impressions [facility] - 03/08/2025 9:05 AM EDT No metastatic disease to the thorax Narrative [facility] - 03/08/2025 9:[address] CHEST OUTSIDE WITH INTERPRETATION OR CONSULT Referring clinician's provided indication for this examination in Epic: pancreatic cancer TECHNIQUE: Multidetector CT of the [...] pancreatic head/uncinate process mass is outside the ixpvm-ri-[id number]. Please refer to report of CT abdomen dated 02/18/2025 for additional findings. Chest Wall: No chest wall mass. Bones: There are mild degenerative changes in the visualized spine. No suspicious lytic or blastic lesions. Procedure Note Rachel Parson [facility] - 03/08/2025 CT CHEST OUTSIDE WITH INTERPRETATION OR CONSULT Referring clinician's provided indication for this examination in Epic:pancreatic cancer TECHNIQUE: Multidetector CT of the chest [...] Known pancreatic head/uncinate process massis outside the [id number]. Please refer to report of CT abdomen dated1 for additional findings. Chest Wall: No chest wall mass. Bones: There are mild degenerative changes in the visualized spine. Nosuspicious lytic or blastic lesions. 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 Associated mild upstream bile duct dilation. Abutment of the SMV with mild narrowing. * No definite abdominopelvic metastases. * Region of enhancement involving the right gluteus brandon, possibly inflammatory, though warranting attention on follow-up as a mass lesion could appear similar. Narrative [facility] - 03/08/2025 1:[address] ABDOMEN/PELVIS OUTSIDE WITH INTERPRETATION OR CONSULT Referring clinician's provided indication for this examination in [facility]: pancreatic cancer TECHNIQUE: CT of the abdomen [...] clinician's provided indication for this examination in [facility]:pancreatic cancer TECHNIQUE: CT of the abdomen and pelvis, with intravenous contrast. 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 Associated mild upstream bile duct dilation. Abutment of the upper SMV. * No definite abdominopelvic metastases. Narrative [facility] - 03/08/2025 1:43 PM EDT MRI ABDOMEN [...] COMPARISON: CT ABDOMEN/PELVIS OUTSIDE WITH INTERPRETATION OR [id number] FINDINGS: Lower Chest: Unremarkable. Liver: No focal [...] OUTSIDE IMAGING W/ INTERPR ETATION Final Result [facility] [address] [place] [address] * CT Abdomen/Pelvis Outside with Interpretation or Consult (12/29/2024 12:00 AM EDT) 03/08/2025 1:09 PM EDT Narrative [facility] - 03/08/2025 1:[address] ABDOMEN/PELVIS [...] OUTSIDE IMAGING W/ INTERPR ETATION Final Result [facility] [address] [place] [address] from Last 3 Months Insurance WE[employer] NON NSPG PCP [facility] NON NSPG PCP S[employer]ITY CONNECTORCARE [employer] NON NSPG PCP S[employer] CONNE[employer]ARE [employer] NON NSPG PCP S[employer] CONNE[employer]ARE [employer] NON NSPG PCP [place] [place] [place] [address] [place] [address] NON NSPG PCP [employer] CONNE[employer]ARE [place] [address] Rani COLEMAN [facility] [place] [address] Advance Directives For more information, please contact: [phone] (9AM - 5PM [facility], Saturday-Saturday) * Full Code (Presumed) (Latest Code Status on File) Date Activated Date Inactivated Comments 10/28/2018 9:51 AM 10/28/2018 7:25 PM Care Teams Pillowcase Maker Relationship Specialty Start Date End Date Ryan, Emilie Way MD [address] [place] [address] Kunal PCP - General Family Medicine 06/03/18 Additional Source Comments The information contained in this document represents components of the legal health record. It is not the complete legal health record.[facility]
[2025-03-22 13:58] LABS: Appearance Urine Clear; Glucose Urine UA Negative (Negative); PH 7.5 (5.0-9.0); Specific Gravity - Urine 1.010 (1.005-1.025); UMIC TRIGGER UACC YES
--- NOTE | 2025-03-22 15:26 | ED.GENADULT ---
HPI - General Adult General Chief complaint: General Medical Stated complaint: abd pain, N/V/ CP Time Seen by Provider: 03/22/25 10:44 Source: patient and old records reviewed Mode of arrival: wheelchair Limitations: no limitations Related Data Home Medications ?Medication ?Instructions ?Recorded ?Confirmed cabotegravir 600 mg/3 mL (200 600 mg IM [id number] 02/18/25 03/11/25 mg/mL) IM suspension,extended release (Apretude) cholecalciferol (vitamin D3) 1,250 1,250 mcg PO MO 02/18/25 03/11/25 mcg (50,000 unit) capsule linaclotide 290 mcg capsule 290 mcg PO DAILY 02/18/25 03/11/25 (Linzess) bmixze-dnnregav-dysizxt (pork) 2 cap PO BID 02/18/25 03/11/25 3,000-9,500-15,000 unit capsule,del rel (Creon) lorazepam 0.5 mg tablet 0.5 mg PO BEDTIME PRN anxiety 03/22/25 ondansetron 8 mg disintegrating 8 mg PO Q8H PRN nausea and vomiting 03/22/25 tablet Previous Rx's ?Medication ?Instructions ?Recorded Oxygen Home Use #3 ea 09/24/24 magnesium oxide 400 mg (241.3 mg 400 mg PO BEDTIME 30 days #30 tabs 09/25/24 magnesium) tablet galcanezumab-gnlm 300 mg/3 mL (100 300 mg (3 mL) subcut QMONTH 30 12/27/24 mg/mL x 3) subcutaneous syringe days #3 mL (Emgality) famotidine 40 mg tablet (Pepcid) 40 mg PO BEDTIME #30 tabs 01/08/25 bisacodyl 5 mg tablet,delayed 10 mg (2 x 5 mg) PO BEDTIME 30 01/28/25 release (Dulcolax (bisacodyl)) days #60 tabs dexamethasone 4 mg tablet 4 mg PO BID #30 tabs 03/11/25 lidocaine 4 % topical cream 1 appl topical DIRECTED #15 03/11/25 grams oxycodone 5 mg capsule 5 mg PO Q8H PRN Severe Pain (Scale 03/11/25 Score 7-10) #30 caps lidocaine 5 % topical cream 1 appl topical BID #90 grams 03/15/25 food supplemt, lactose-reduced 1 ea PO BID #48 ea 03/16/25 (Ensure oral liquid) Allergies Allergy/AdvReac Type Severity Reaction Status Date / Time black pepper Allergy Severe Anaphylaxis Verified 03/22/25 11:09 Penicillins (PENICILLINS) Allergy Intermediate MARIANN DUKELL Verified 03/22/25 11:09 ING sumatriptan (SUMATRIPTAN) AdvReac Severe PT STATES Verified 03/22/25 11:09 [facility] Past Medical History Medical History Elevated LFTs Pancreatic mass Acute pancreatitis Pancreatic mass Upper abdominal pain Erosive esophagitis Abdominal pain Sleep difficulties Vomiting LEE (dyspnea on exertion) Arthritis Occipital neuralgia of left side New onset headache Diverticulosis of colon Chronic, continuous use of opioids Chronic GERD Palpitations Hypotension History of palpitations Dysphagia Disc degeneration, lumbar Spondylosis of lumbar spine Depression Past heart attack Hyperlipemia Erosive osteoarthritis of hands, bilateral GERD (gastroesophageal reflux disease) Hypertension Surgical History History of cholecystectomy Hx of colonoscopy History of esophagogastroduodenoscopy (EGD) H/O bilateral mastectomy H/O: hysterectomy Family History Family History Mother Hypertension Breast cancer Maternal Grandmother Myocardial infarct Skin cancer Sister Heart problem Breast cancer Family/Other Esophageal cancer Social History Social History Household Members: Family Housing: Apartment Are you a primary daycare teacher to a significant other at home: No Do you presently have visiting nurse or other home services: No Alcohol intake: never Patient Tobacco Use Status: Former Tobacco user Smoked in Last 30 Days: No Use of substances other than those prescribed or required for medical reasons: No Substance Use Type: Marijuana Advance Directives: No Advance Directives Information Provided: No Do you have a plan to hurt others: No Plan Patient : No service: No Physical Exam ED Vital Signs: Vital Signs - 24 hr 03/22/25 10:51 03/22/25 11:07 03/22/25 11:13 Temperature 98.6 F 98.6 F Pulse Rate 93 105 H Respiratory Rate 28 H 23 H 25 H Blood Pressure 148/98 H 136/88 Pulse Oximetry 99 99 Oxygen Delivery Method Room Air Room Air 03/22/25 11:16 03/22/25 13:41 03/22/25 15:07 Temperature Pulse Rate 96 80 78 Respiratory Rate 22 H 13 18 Blood Pressure 130/92 H 126/85 114/80 Pulse Oximetry 96 97 99 Oxygen Delivery Method Room Air Room Air Room Air BMI result Body Mass Index 16.4 Medications Administered Discontinued Medications Generic Name Dose Route Start Last Admin Trade Name Freq PRN Reason Stop Dose Admin Hydromorphone HCl 1 mg 03/22/25 10:50 03/22/25 11:13 Hydromorphone Hcl 1 Mg/Ml Syringe IVPUSH 03/22/25 10:51 1 mg ONCE ONE Administration Protocol Hydromorphone HCl 0.5 mg 03/22/25 14:57 03/22/25 15:11 Hydromorphone Hcl 0.5 Mg/0.5 Ml Syringe IVPUSH 03/22/25 14:58 Not Given ONCE ONE Protocol Lactated Ringer's 1,000 mls @ 999 mls/hr 03/22/25 10:50 03/22/25 13:44 Lr IV 03/22/25 11:50 Infused .Q1H1M ONE Infusion Iohexol 100 ml 03/22/25 13:14 03/22/25 13:15 Iohexol 350 Mg/Ml 100 Ml Infus..Btl IV 03/22/25 13:15 85 ml ONCE ONE Administration Prochlorperazine Edisylate 10 mg 03/22/25 10:50 03/22/25 11:08 Prochlorperazine Edisylate 10 Mg/2 Ml Vial IVPUSH 03/22/25 10:51 10 mg ONCE ONE Administration Medical Decision Making Lab Data 03/22/25 11:26 03/22/25 11:26 Labs: Lab Results 03/22/25 03/22/25 Range/Units 11: 13:42 WBC 8.5 (4.8-10.8) X10*3/uL RBC 5.70 H D (4.20-5.50) X10*6/uL Hgb 16.8 H D (12.0-16.0) g/dl Hct 48.9 H (37.0-47.0) % MCV 85.8 (80.0-98.0) fL MCH 29.5 (27.0-33.0) pg MCHC 34.4 (31.0-35.0) g/dl RDW 13.3 (11.0-16.0) % Plt Count 189 D (160-400) X10*3/uL MPV 9.9 (9.4-12.3) fL Immature Gran % (Auto) 0.5 H (0.0-0.4) % Neut % (Auto) 66.1 (45-73) % Lymph % (Auto) 30.9 (20-40) % [place] % (Auto) 1.9 L (2-11) % Eos % (Auto) 0.4 (0-4) % Baso % (Auto) 0.2 (0-2) % Lymph # (Auto) 2.6 (1.2-4.9) X10*3/uL [place] # (Auto) 0.2 (0.1-1.2) X10*3/uL Eos # (Auto) 0.0 (0.0-0.4) X10*3/uL Baso # (Auto) 0.0 (0.0-0.2) X10*3/uL Abs Immat Gran (auto) 0.04 H (0.00-0.03) X10*3/uL Absolute Neuts (auto) 5.6 (2.0-8.3) x10*3/uL Absolute Nucleated RBC 0.000 (0.0-0.012) X10*3/uL Nucleated RBC % (auto) 0.0 (0.0-0.2) /100WBC Sodium 137 (135-145) mmol/L Potassium 3.8 (3.3-5.1) mmol/L Chloride 106 (96-108) mmol/L Carbon Dioxide 21 L (22-29) mmol/L Anion Gap 14 (12-20) BUN 12 (9-16) mg/dL Creatinine 0.68 (0.5-1.4) mg/dL Estim Creat Clear Calc 65.0 Estimated GFR > 60 Random Glucose 111 (60-115) mg/dL Lactic Acid 1.6 (0.5-2.0) mmol/L Calcium 9.7 D (8.4-10.2) mg/dL Magnesium 2.1 (1.6-2.6) mg/dL Total Bilirubin 0.8 (0.0-1.0) mg/dL Direct Bilirubin 0.2 (0.0-0.5) mg/dL AST 30 (5-31) U/L ALT 33 H (0-31) U/L Alkaline Phosphatase 100 (39-117) U/L Troponin I High Sens 3.2 (<3.5-17.0) ng/L Total Protein 7.8 (6.5-8.0) g/dL Albumin 4.5 (3.5-5.0) g/dL Lipase 44 (8-78) U/L Urine Color Yellow Urine Appearance Clear Urine pH 7.5 (5.0-9.0) Ur Specific [place] 1.010 (1.005-1.025) Urine Protein Negative (Neg-Trace) mg/dL Urine Glucose (UA) Negative (Negative) mg/dL Urine Ketones Negative (Negative) mg/dL Urine Blood Negative (Negative) Urine Nitrite Negative (Negative) Ur Leukocyte Esterase Trace H (Negative) Urine RBC 0-2 (0-2) /HPF Urine WBC 0-5 (0-5) /HPF Ur Squamous Epith Cells 3-5 (0-2) /HPF Urine Bacteria None Seen (None Seen) Hyaline Casts 0-2 (0-2) /LPF Influenza Type A (PCR) NEGATIVE (Negative) Influenza Type B (PCR) NEGATIVE (Negative) RSV RNA Qual (PCR) NEGATIVE (Negative) SARS-CoV-2 RNA (RT-PCR) NEGATIVE (Negative) Discharge Plan Discharge Clinical Impression: Acute dehydration, Generalized headaches, Atypical chest pain, Intractable abdominal pain Nausea & vomiting Qualifiers: Vomiting type: unspecified Qualified Code(s): R11.2 - Nausea with vomiting, unspecified Patient Disposition: Admitted As Inpatient Print Language: Sudanese
--- NOTE | 2025-03-22 16:45 | PHA.MEDREC ---
Addendum entered by Oksana Slaughter RPh 03/22/25 17:22: REVIEWED BY PHARMACIST Addendum entered by Oksana Slaughter RPh 03/22/25 17:20: REVIEWED BY PHARMACIST Original Note: Pharmacy Consult ? Medication Reconciliation Pharmacy has completed the medication reconciliation. Spoke with pt (utilizing comparative sociology professor services) and they were able to confirm their medications with us. Pt confirmed they are due for their Apretude injection once Q2M, this month but doesn't remember the exact date at this time, they uses the Dexatheasome 4mg tabs 1 BID on 2nd and 3rd day of chemo; pt gets chemo Saturday and Saturday (pt takes on and Fridays, LT Saturday) and pt states they took Ondansetron & Oxycodone last yesterday and everything else ~2-3 days ago.
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
[2025-03-22] MEDS: 0.9 % Sodium Chloride Flush 3 ML SYRINGE IVFLUSH (20:58)
[2025-03-23] VITALS (8 sets, daily range): BP systolic 103–135; BP diastolic 64–93; PULSE 71–118; RESP 12–19; TEMP 36.4–36.7; O2SAT 93–98; BMI 16.6
[2025-03-23 06:18] LABS: Hematocrit 42.6 % (37.0-47.0); Hemoglobin 14.1 g/dl (12.0-16.0); Mean Corpuscular HGB Conc 33.1 g/dl (31.0-35.0); Mean Corpuscular Hemoglobin 29.5 pg (27.0-33.0); Mean Corpuscular Volume 89.1 fL (80.0-98.0); NRBC Abs Auto 0.000 X10*3/uL (0.0-0.012); NRBC Pct Auto 0.0 /100WBC (0.0-0.2); Platelet Count 201 X10*3/uL (160-400); Red Blood Count 4.78 X10*6/uL (4.20-5.50); White Blood Count 6.3 X10*3/uL (4.8-10.8)
[2025-03-23 06:20] LABS: Anion Gap 12 (12-20); Blood Urea Nitrogen 11 mg/dL (9-16); Calcium 8.9 mg/dL (8.4-10.2); Carbon Dioxide 27 mmol/L (22-29); Chloride 102 mmol/L (96-108); Creatinine Clr Calc Pharmacy 68.9; Estimated Glomerular Filt Rate > 60; Potassium 4.3 mmol/L (3.3-5.1); Sodium 137 mmol/L (135-145)
[2025-03-23] MEDS: 0.9 % Sodium Chloride Flush 3 ML SYRINGE IVFLUSH ×2 (10:16→20:26)
[2025-03-23] MEDS: Lactated Ringers 1,000 ML 100 ML IVCONT ×2 (10:16→19:37)
--- NOTE | 2025-03-23 10:50 | MHC.CM.PN ---
PT LIVES WITH FAMILY HAS OWN [facility] HOME NOT EXPECTED TO NEED SERVICE SHE IS DC PLAN HOME N/S
--- NOTE | 2025-03-23 11:51 | MHC.CLN ---
PT IS MODERATELY MALNOURISHED-QUALIFIES NON-SEVERE IN CONTEXT OF CHRONIC ILLNESS PT WITH MILDLY DEPLETED SUBCUTANEOUS FAT AND MUSCLE MASS WITH BMI 16.6 AND 13% SIGNIFICANT WT LOSS X 6 MONTHS PT CURRENTLY ON CLEAR LIQUID DIET 25% X1 MEAL RECEIVING ENSURE CLEAR TID TO INCREASE KCALS SUPPLEMENT PROVIDES 720KCALS, 24G PROTEIN MONITOR PO INTAKE AND ENCOURAGE SUPPLEMENTS SEE FULL ASSESSMENT
--- NOTE | 2025-03-23 14:03 | P.CNHO_ITS ---
Subjective - Subjective Chief complaint: Consult for: 1. Nausea vomiting. 2. Pancreatic carcinoma. Patient: known to practice within the last 3 years Consult date: 03/23/25 Requesting Physician: Birgit. Primary Care Provider: Emilie Davis MD Family Provider: Ryan. Medical Summary: DIAGNOSIS: Adenocarcinoma of the pancreas stage T2, N0. Started on FOLFIRINOX 1st cycle on 03/17. Admitted with refractory nausea vomiting. 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 Narrative: Harriet Roberson is a 55 year old trans gentleman, with a PMH significant for?pancreatic adenocarcinoma diagnosed in January of 2025, GERD, pancreatitis, and depression. He presented to the ED with intractable nausea, vomiting, and abdominal pain x3 days. Pt is currently being followed in oncology. He has been started on FOLFIRINOX based chemotherapy. The plan is to proceed with a Whipple at [facility], after 3 cycles of chemotherapy to shrink the tumor away from the superior mesenteric vein. He had his 1st cycle of chemotherapy on Saturday and went home with infusion that was completed on Saturday. Three hours after infusion, he developed intractable nausea, vomiting, and abdominal pain. He was not able to tolerate anything by mouth since then. Has had lightheadedness and a headache. Here his vitals were significant for: Tachycardia 105, tachypnea 28, BP stable. Labs were significant for elevated H&H 16.8/48.9. CT of head negative for acute abnormality. CTA of chest negative for PE or acute disease. CTA of abdomen/pelvis showed: Mild thickening of descending colon of unclear significance; No clear evidence of acute abdomen. Pt was treated in the ED with Compazine, Dilaudid, and IVF. He was admitted to the hospital under observation for treatment and further evaluation of intractable nausea and vomiting likely secondary to chemotherapy. Medical History: Elevated LFTs Pancreatic mass Acute pancreatitis Pancreatic mass Upper abdominal pain Erosive esophagitis Abdominal pain Sleep difficulties Vomiting LEE (dyspnea on exertion) Arthritis Occipital neuralgia of left side New onset headache Diverticulosis of colon Chronic, continuous use of opioids Chronic GERD Palpitations Hypotension History of palpitations Dysphagia Disc degeneration, lumbar Spondylosis of lumbar spine Depression Past heart attack Hyperlipemia Erosive osteoarthritis of hands, bilateral GERD (gastroesophageal reflux disease) Hypertension Family History: Mother Hypertension Breast cancer Maternal Grandmother Myocardial infarct Skin cancer Sister Heart problem Breast cancer Family/Other Esophageal cancer Review of Systems - Constitutional Reports system reviewed and no additional complaints, except as documented, Reports lack of energy, Reports malaise, Reports weight loss - Eyes Reports system reviewed and no additional complaints, except as documented - ENT Reports system reviewed and no additional complaints, except as documented - Cardiovascular Reports system reviewed and no additional complaints, except as documented - Respiratory Reports no additional respiratory complaints - Gastrointestinal Reports system reviewed and no additional complaints, except as documented, Reports nausea, Reports vomiting - Genitourinary Reports no additional female genitourinary complaints - Musculoskeletal Reports system reviewed and no additional complaints, except as documented - Integumentary/Breasts Skin/Breast: Reports no additional skin complaints - Neurologic Reports system reviewed and no additional complaints, except as documented - Psychiatric Reports system reviewed and no additional complaints, except as documented - Endocrine Reports no additional endocrine complaints - Hematologic/Lymphatic Reports system reviewed and no additional complaints, except as documented - Allergic/Immunologic Reports system reviewed and no additional complaints, except as documented Oncology Screenings - ECOG Performance Status ECOG Performance Status: 1 [facility] Medical History: Medical History (Last Reviewed 03/22/25 @ 20:40 by Radha Jmiénez RN) Abdominal pain Acute pancreatitis Arthritis Chronic GERD Chronic, continuous use of opioids Depression Disc degeneration, lumbar Diverticulosis of colon LEE (dyspnea on exertion) Dysphagia Elevated LFTs Erosive esophagitis Erosive osteoarthritis of hands, bilateral GERD (gastroesophageal reflux disease) History of palpitations Hyperlipemia Hypertension Hypotension New onset headache Occipital neuralgia of left side Palpitations Pancreatic mass Pancreatic mass Past heart attack Sleep difficulties Spondylosis of lumbar spine Upper abdominal pain Vomiting Functional capacity: independent ambulation Patient : No Family History: Family History (Last Reviewed 03/11/25 @ 13:50 by Jerrell Tinajero) Mother Hypertension Breast cancer Maternal Grandmother Myocardial infarct Skin cancer Sister Heart problem Breast cancer Family/Other Esophageal cancer Surgical History: Surgical History (Last Reviewed 03/22/25 @ 20:40 by Radha Jiménez RN) H/O bilateral mastectomy H/O: hysterectomy History of cholecystectomy History of esophagogastroduodenoscopy (EGD) Hx of colonoscopy Social History: Social History (Last Reviewed 03/22/25 @ 10:46 by Virginia Monroe DO) Living Situation History: Household Members: None Housing: Apartment Are you a primary workforce investment act career manager to a significant other at home: No Do you presently have visiting nurse or other home services: No Tobacco History: Patient Tobacco Use Status: Former Tobacco user Second Hand Smoke Exposure: No Substance Use History: Substance Use Type: Marijuana Occupation Assessmet: service: No Home Medications and Allergies Current Medications: Current Medications Acetaminophen (Acetaminophen 325 Mg Tablet) 650 mg PO Q6H PRN PRN Reason: Pain, Mild 1-3,fever,headache Bisacodyl (Bisacodyl 5 Mg Tablet.Dr) 10 mg PO BEDTIME PRN PRN Reason: Constipation Calcium Carbonate (Calcium Carbonate 750 Mg Tab.Chew) 750 mg PO Q4H PRN PRN Reason: Heartburn Dexamethasone (Dexamethasone 4 Mg Tablet) 4 mg PO BID [facility] Last Admin: 03/23/25 08:46 Dose: Not Given Enoxaparin Sodium (Enoxaparin Sodium 40 Mg/0.4 Ml Syringe) 40 mg SUBCUT Q24H [facility] Last Admin: 03/22/25 20:50 Dose: 40 mg Hydromorphone HCl (Hydromorphone Hcl 1 Mg/Ml Syringe) 0.5 mg IVPUSH Q4H PRN; Protocol PRN Reason: Pain, Severe (Pain Scale 7-10) Last Admin: 03/23/25 00:32 Dose: 0.5 mg Lactated Ringer's (Lr) 1,000 mls @ 100 mls/hr IVCONT .Q10H [facility] Last Admin: 03/23/25 10:16 Dose: 100 mls/hr Lorazepam (Lorazepam 0.5 Mg Tablet) 0.5 mg PO BEDTIME PRN PRN Reason: Anxiety Magnesium Hydroxide (Milk Of Magnesia 30 Ml Oral.Susp) 30 ml PO DAILY PRN PRN Reason: Constipation Magnesium Oxide (Magnesium Oxide 400 Mg Tablet) 400 mg PO BEDTIME [facility] Last Admin: 03/22/25 20:52 Dose: 400 mg Melatonin (Melatonin 3 Mg Tablet) 6 mg PO BEDTIME PRN PRN Reason: Insomnia Oxycodone HCl (Oxycodone Hcl Immed Release 5 Mg Tablet) 5 mg PO Q8H PRN PRN Reason: Severe Pain (Scale Score 7-10) Prochlorperazine Edisylate (Prochlorperazine Edisylate 10 Mg/2 Ml Vial) 5 mg IVPUSH Q4H PRN PRN Reason: Nausea and Vomiting Last Admin: 03/23/25 08:42 Dose: 5 mg Sodium Chloride (0.9 % Sodium Chloride Flush 3 Ml Syringe) 3 ml IVFLUSH QSHIFT [facility] Last Admin: 03/23/25 10:16 Dose: 3 ml Home Medications ?Medication ?Instructions ?Recorded ?Confirmed ?Type cabotegravir 600 mg/3 mL (200 600 mg IM [id number] 02/18/25 03/22/25 His tory mg/mL) IM suspension,extended release (Apretude) bisacodyl 5 mg tablet,delayed 10 mg PO BEDTIME PRN Constipation 03/22/25 History release (Dulcolax (bisacodyl)) lidocaine 5 % topical ointment 1 appl topical BID PRN port a cath 03/2203/22/25 History lorazepam 0.5 mg tablet 0.5 mg PO BEDTIME PRN anxiety 03/22/25 1 05/22/24 History ondansetron 8 mg disintegrating 8 mg PO Q8H PRN nausea and vomiting 03/1303/22/25 History tablet Allergies Allergy/AdvReac Type Severity Reaction Status Date / Time black pepper Allergy Severe Anaphylaxis Verified 03/22/25 11:09 Penicillins (PENICILLINS) Allergy Intermediate HIVES,SWELL Verified 03/22/25 11:09 ING sumatriptan (SUMATRIPTAN) AdvReac Severe PT STATES Verified 03/22/25 11:09 HEART ATTACK berries Allergy Unknown Anaphylaxis Uncoded 03/24/25 12:03 Physical Exam Vital signs: Vital Signs Temp 97.5 F 03/23/25 12:12 Pulse 101 H 03/23/25 12:12 Resp 18 03/23/25 12:12 BP 125/91 H 03/23/25 12:12 Pulse Ox 98 03/23/25 12:12 O2 Del Method Room Air 03/23/25 12:12 Intake & Output 03/22/25 03/23/25 03/23/25 18:59 06:59 18:59 Intake Total 1000 / 1000 180 / 180 Balance 1000 / 1000 180 / 180 Intake: Intake, Oral Amount 180 / 180 Intake, IV Amount 1000 / 1000 Lactated Ringers 1,000 ml @ 999 1000 / 1000 mls/hr IV .Q1H1M ONE Rx#: [id number] Other: Breakfast % Eaten 25% Eating (Feeding) Ability Independent Number of Unmeasured Voids 1 Urine Bathroom Last Bowel Movement 03/21/25 Weight 44.6 kg 45.2 kg 45.2 kg Weight 45.2 kg - Constitutional Present: mild distress - Routine HEENT Exam Head: Present: normal inspection, normocephalic Eye: Present: normal appearance ENT: Present: mucous membranes moist - Routine Neck Exam Present: supple - Routine Respiratory Exam Present: CTAB - Routine Cardiovascular Exam Cardiovascular: Present: RRR, S1, S2 - Routine Abdominal Exam Present: soft, nontender Hem/Onc Consult Result - Labs CBC & Chem 7: 03/23/25 05:33 03/23/25 05:33 Labs: Short CBC 03/23/25 Range/Units 05:33 WBC 6.3 (4.8-10.8) X10*3/uL Hgb 14.1 (12.0-16.0) g/dl Hct 42.6 (37.0-47.0) % Plt Count 201 (160-400) X10*3/uL BMP 03/23/25 05:33 Sodium 137 Potassium 4.3 Chloride 102 Carbon Dioxide 27 BUN 11 Creatinine 0.65 Calcium 8.9 D Assessment and Plan Patient Active problem list reviewed?: Yes (1) Pancreatic adenocarcinoma Status: Chronic Assessment and plan: This is a 55-year-old male(transition) who has been diagnosed with pancreatic adenocarcinoma in January 2025. He presented with symptoms of chronic dysphagia and abdominal pain. MRI abdomen on 01/2025 for acute pancreatitis. This revealed hypoenhancing solid mass measuring 2.5 x 2.7 cm in the pancreatic head/uncinate process which was compressing the distal CBD and causing moderate to severe stenosis. Upstream extrahepatic and intrahepatic ducts were mildly dilated. Status post cholecystectomy. This was read as concerning for malignancy. ERCP and tissue sampling was recommended. Patient underwent endoscopic ultrasound and biopsy of this mass at [facility] on 02/18/2025. FNA of pancreatic head mass from 02/18/2025 revealed Adenocarcinoma. He had another CT abdomen/pelvis with contrast on 02/18/2025 which showed: 2.7 x 1.6 cm mass near the head of pancreas/uncinate process that may be part of pancreas or a large peripancreatic lymph node resulting in mild intrahepatic biliary tree dilatation and severe dilatation of the common bile duct which measures 1.[address] chest with contrast performed at [facility] on 02/23/2025 showed no evidence of metastatic disease in chest. Mild coronary artery calcifications, calcified granulomas with soft tissue nodules unchanged since 2018 and considered benign. PET scan has been ordered. Clinical stage T2 N0. The role of preoperative or neoadjuvant chemotherapy for downsizing tumor, was discussed He was referred to [facility] surgical Oncology. He met with Dr. Costa Miller at [facility] on 03/09/25 who suggested proceeding with 3 cycles of chemotherapy to shrink the tumor away from the superior mesenteric vein. He will then proceed with a Whipple's with possible small venous reconstruction. He had a Port-A-Cath insertion on 03/16/2025. FOLFIRINOX chemotherapy was discussed with patient. Reviewed purpose, schedule, administration of chemotherapy. Discussed manzanares toxicities including fatigue, nausea, vomiting, diarrhea, mucositis, myelosuppression, infection risk, and neuropathy from oxaliplatin. Reviewed supportive medications and when to call for urgent symptoms. Patient verbalized understanding and agreed to proceed with treatment plan. He started FOLFIRINOX on 03/17/2025. He reported pain across the upper abdomen in the right upper quadrant. Previously treated with p.o. morphine post hospital discharge. However, reporeds lightheadedness with morphine. Tolerated oxycodone well in the past. Prescription for oxycodone 5 mg p.o. q.8 hours as needed was given. Chronic dysphagia and underweight. PLAN: On analgesics for pain. Started on Antiemetics. Decadron and Zofran. Compazine PRN. Clear liquid dies for now, advance as tolerated Nutrition consult has been placed. Ensure dietary supplement was prescribed. Once he improves, he will return to Oncology for his scheduled appointment. Thanks, CC: Emilie Davis MD - Time Spent With Patient Time Spent with Patient (in minutes): 30
--- NOTE | 2025-03-23 15:49 | P.PNIM_ITS ---
Subjective Subjective Date of Service: 03/23/25 Interval History: Patient seen examined at bedside this morning, patient persists with nausea and vomiting, unable to tolerate fluids. With nausea back at bedside. Patient on prochlorperazine and dexamethasone Review of Systems Review of Systems: Yes all other systems are reviewed and are negative Physical Exam 2 Exam: Exam: General: AxOx3, ill-appearing, nauseous Head: AT/NC ENT: Moist mucous membranes Neck: supple CVS; RRR, S1 S2 normal Lungs: Clear bilateral breath sounds, no wheezes or crackles Abd: Soft, tenderness in epigastric area., non distended Ext: No edema and no calf tenderness MSK: moving all 4 limbs Skin: No cyanosis or edema Psych: Cooperative with exam Neurology: no focal deficit Vital Signs: Vital Signs: Last Vital Signs Temp 97.5 F 03/23/25 12:12 Pulse 101 H 03/23/25 12:12 Resp 18 03/23/25 12:12 BP 125/91 H 03/23/25 12:12 Pulse Ox 98 03/23/25 12:12 O2 Del Method Room Air 03/23/25 12:12 BMI result Body Mass Index 16.6 Objective Data Active Medications Acetaminophen (Acetaminophen 325 Mg Tablet) 650 mg PO Q6H PRN PRN Reason: Pain, Mild 1-3,fever,headache Bisacodyl (Bisacodyl 5 Mg Tablet.Dr) 10 mg PO BEDTIME PRN PRN Reason: Constipation Calcium Carbonate (Calcium Carbonate 750 Mg Tab.Chew) 750 mg PO Q4H PRN PRN Reason: Heartburn Dexamethasone (Dexamethasone 4 Mg Tablet) 4 mg PO BID [facility] On Hold: 03/23/25 15:46 Resume: 03/25/25 15:46 Last Admin: 03/23/25 08:46 Dose: Not Given Documented By: CHASE Non-Admin Reason: Patient Refused Dexamethasone Sodium Phosphate (Dexamethasone Sod Phosphate 4 Mg/Ml Vial) 4 mg IVPUSH BID [facility] Enoxaparin Sodium (Enoxaparin Sodium 40 Mg/0.4 Ml Syringe) 40 mg SUBCUT Q24H [facility] Last Admin: 03/22/25 20:50 Dose: 40 mg Documented By: CYRUS Comments: given when admitted to floor Hydromorphone HCl (Hydromorphone Hcl 1 Mg/Ml Syringe) 0.5 mg IVPUSH Q4H PRN; Protocol PRN Reason: Pain, Severe (Pain Scale 7-10) Last Admin: 03/23/25 15:39 Dose: 0.5 mg Documented By: ELO Lactated Ringer's (Lr) 1,000 mls @ 100 mls/hr IVCONT .Q10H [facility] Last Admin: 03/23/25 10:16 Dose: 100 mls/hr Documented By: ELO Lorazepam (Lorazepam 0.5 Mg Tablet) 0.5 mg PO BEDTIME PRN PRN Reason: Anxiety Magnesium Hydroxide (Milk Of Magnesia 30 Ml Oral.Susp) 30 ml PO DAILY PRN PRN Reason: Constipation Magnesium Oxide (Magnesium Oxide 400 Mg Tablet) 400 mg PO BEDTIME [facility] Last Admin: 03/22/25 20:52 Dose: 400 mg Documented By: CYRUS Melatonin (Melatonin 3 Mg Tablet) 6 mg PO BEDTIME PRN PRN Reason: Insomnia Ondansetron HCl (Ondansetron Hcl 4 Mg/2 Ml Vial) 4 mg IVPUSH Q8H PRN PRN Reason: Nausea and Vomiting Oxycodone HCl (Oxycodone Hcl Immed Release 5 Mg Tablet) 5 mg PO Q8H PRN PRN Reason: Severe Pain (Scale Score 7-10) Sodium Chloride (0.9 % Sodium Chloride Flush 3 Ml Syringe) 3 ml IVFLUSH QSHIFT [facility] Last Admin: 03/23/25 15:42 Dose: Not Given Documented By: ELO Non-Admin Reason: IV Running Labs 03/23/25 05:33 03/23/25 05:33 Labs: Laboratory Results - last 24 hr 03/23/25 05:33 MCV 89.1 MCH 29.5 MCHC 33.1 RDW 13.2 Plt Count 201 MPV 9.9 Absolute Nucleated RBC 0.000 Nucleated RBC % (auto) 0.0 Anion Gap 12 Estim Creat Clear Calc 68.9 Estimated GFR > 60 Random Glucose 88 Calcium 8.9 D Microbiology Microbiology Results: Microbiology 03/22/25 11:35 Blood Culture - Preliminary Blood - Venous No growth after 24 hours. 03/22/25 11:26 Blood Culture - Preliminary Blood - Venous No growth after 24 hours. Assessment and Plan (1) GERD (gastroesophageal reflux disease): Status: Acute (2) Dysphagia: Status: Acute (3) Intractable abdominal pain: Status: Acute (4) Pancreatic adenocarcinoma: Status: Chronic Plan Pt is a 55-year-old w/ PMH significant for pancreatic adenocarcinoma diagnosed in January of 2025, pancreatitis, and depression who presents to the ED with intractable nausea, vomiting, and abdominal pain x3 days. Pt is admitted to the hospital under observation for treatment and further evaluation of intractable nausea and vomiting likely secondary to chemotherapy. Intractable N/V and abd pain secondary to recent chemotherapy session Continue analgesics will initiate IV dexamethasone and ondansentron, to consider olanzapine if needed. not tolerating clears, will make NPO -Hematology/oncology and dietary consulted Pancreatic adenocarcinoma Diagnosed 2024 Heme/onc consult, follows with Dr. Mar Disposition: All questions and concerns with the patient were answered to satisfaction. All pertinent clinical documents, images and labs were reviewed. DISCLAIMER: This document was created using voice recognition software. Any mistakes in the prescription are unintentional. An attempt was made to focus for accuracy, but to expedite availability, some errors may persist. Please contact with any need for correction or further clarification Total time managing care of this patient today: 55 minutes. Quality Stroke Does the patient have a stroke diagnosis?: No VTE Prior VTE?: No VTE Risk Level:: Medical - moderate - high VTE Device Contraindication: Treatment Not Indicated VTE Drug Contraindication: N/A - Med Ordered
--- NOTE | 2025-03-23 22:16 | PC.NURSE ---
1944: pt asked if we could wash around dressing (gauze and tegaderm) covering implanted port to left upper chest. Skin around dressing was washed and dried and it was explained to pt and family that this RN could not change the dressing. Pt family member came out into robles a few minutes later asking this RN to return to room. Upon entering, it was observed that the dressing had been removed over the implanted port. Pt and family explained that they were supposed to remove dressing on day 7.
[2025-03-24] VITALS (8 sets, daily range): BP systolic 102–138; BP diastolic 71–86; PULSE 59–95; RESP 14–18; TEMP 36–37; O2SAT 96–100
[2025-03-24] MEDS: Lactated Ringers 1,000 ML 100 ML IVCONT ×2 (05:02→15:24)
--- NOTE | 2025-03-24 12:00 | MHC.CLN ---
F/U DIET RX: CLEAR LIQUIDS. DISLIKES ENSURE CLEAR MIXED WAGGONER FLAVOR. DISCONTINUE SUPPLEMENT. PO INTAKE 1 MEAL X 25%. MONITOR FOR PO INTAKE AND DIET ADVANCEMENT.
--- NOTE | 2025-03-24 13:50 | P.PNIM_ITS ---
Subjective Subjective Date of Service: 03/24/25 Interval History: nausea and vomiting improved has diarrhea hungry Review of Systems Review of Systems: Yes all other systems are reviewed and are negative Physical Exam 2 Vital Signs: Vital Signs: Last Vital Signs Temp 98 F 03/24/25 10:55 Pulse 80 03/24/25 10:55 Resp 16 03/24/25 10:55 BP 134/86 03/24/25 10:55 Pulse Ox 99 03/24/25 10:55 O2 Del Method Room Air 03/24/25 10:55 BMI result Body Mass Index 16.6 Gen: in no acute distress, extensive muscle wasting HEENT: sclera anicteric, moist mucus membranes Neck: supple, left subclavian port Lungs: clear to auscultation bilaterally Heart: regular rate and rhythm, no murmurs Abd: soft, non-tender, non-distended Ext: no edema Skin: warm/well-perfused Neuro: alert and oriented x3, no focal findings Psych: appropriate affect Objective Data Active Medications Acetaminophen (Acetaminophen 325 Mg Tablet) 650 mg PO Q6H PRN PRN Reason: Pain, Mild 1-3,fever,headache Bisacodyl (Bisacodyl 5 Mg Tablet.Dr) 10 mg PO BEDTIME PRN PRN Reason: Constipation Calcium Carbonate (Calcium Carbonate 750 Mg Tab.Chew) 750 mg PO Q4H PRN PRN Reason: Heartburn Dexamethasone (Dexamethasone 4 Mg Tablet) 4 mg PO BID [facility] On Hold: 03/23/25 15:46 Resume: 03/25/25 15:46 Last Admin: 03/23/25 08:46 Dose: Not Given Documented By: CHASE Non-Admin Reason: Patient Refused Dexamethasone Sodium Phosphate (Dexamethasone Sod Phosphate 4 Mg/Ml Vial) 4 mg IVPUSH BID [facility] Last Admin: 03/24/25 08:54 Dose: 4 mg Documented By: CARLTON Enoxaparin Sodium (Enoxaparin Sodium 40 Mg/0.4 Ml Syringe) 40 mg SUBCUT Q24H [facility] Last Admin: 03/23/25 17:14 Dose: 40 mg Documented By: ELO Hydromorphone HCl (Hydromorphone Hcl 1 Mg/Ml Syringe) 0.5 mg IVPUSH Q4H PRN; Protocol PRN Reason: Pain, Severe (Pain Scale 7-10) Last Admin: 03/24/25 00:32 Dose: 0.5 mg Documented By: CYRUS Lactated Ringer's (Lr) 1,000 mls @ 100 mls/hr IVCONT .Q10H [facility] Last Admin: 03/24/25 05:02 Dose: 100 mls/hr Documented By: CYRUS Lorazepam (Lorazepam 0.5 Mg Tablet) 0.5 mg PO BEDTIME PRN PRN Reason: Anxiety Magnesium Hydroxide (Milk Of Magnesia 30 Ml Oral.Susp) 30 ml PO DAILY PRN PRN Reason: Constipation Magnesium Oxide (Magnesium Oxide 400 Mg Tablet) 400 mg PO BEDTIME [facility] Last Admin: 03/23/25 21:25 Dose: Not Given Documented By: CYRUS Non-Admin Reason: Patient Refused Melatonin (Melatonin 3 Mg Tablet) 6 mg PO BEDTIME PRN PRN Reason: Insomnia Ondansetron HCl (Ondansetron Hcl 4 Mg/2 Ml Vial) 4 mg IVPUSH Q4H PRN PRN Reason: Nausea and Vomiting Last Admin: 03/24/25 12:11 Dose: 4 mg Documented By: CARLTON Oxycodone HCl (Oxycodone Hcl Immed Release 5 Mg Tablet) 5 mg PO Q8H PRN PRN Reason: Severe Pain (Scale Score 7-10) Pantoprazole Sodium (Pantoprazole Sodium 40 Mg/10 Ml Vial) 40 mg IVPUSH DAILY@0630 [facility] Last Admin: 03/24/25 05:42 Dose: 40 mg Documented By: CYRUS Prochlorperazine Edisylate (Prochlorperazine Edisylate 10 Mg/2 Ml Vial) 5 mg IVPUSH Q4H PRN PRN Reason: Nausea and Vomiting Sodium Chloride (0.9 % Sodium Chloride Flush 3 Ml Syringe) 3 ml IVFLUSH QSHIFT [facility] Last Admin: 03/24/25 07:40 Dose: Not Given Documented By: CARLTON Non-Admin Reason: IV Running Labs 03/23/25 05:33 03/23/25 05:33 Microbiology Microbiology Results: Microbiology 03/22/25 11:35 Blood Culture - Preliminary Blood - Venous No growth after 48 hours. 03/22/25 11:26 Blood Culture - Preliminary Blood - Venous No growth after 48 hours. Assessment and Plan (1) GERD (gastroesophageal reflux disease): Status: Acute (2) Dysphagia: Status: Acute (3) Intractable abdominal pain: Status: Acute (4) Pancreatic adenocarcinoma: Status: Chronic Plan d3, 55yo F with pancreatic adenoCA on chemotherapy admitted for intractable nausea, vomiting, and abdominal pain intractable N/V due to chemotherapy - continue IV dexamethasone, prn ondansetron, prn prochlorperazine, IV LR - advance from NPO to clear liquid diet - Heme/Onc consulted pancreatic adenoCA - plan 3 cycles FOLFIRINOX [started 03/17/25] to shrink tumor away from SMV, then plan Whipple at [facility] [place] moderate protein-calorie malnutrition - supplements VTE ppx: enoxaparin dispo: eventual home In my clinical judgment, the patient requires continued inpatient hospitalization for the following reasons: IV antiemetics for intractable N/V, IV fluids Total time managing care of this patient today: 35 minutes. Quality Stroke Does the patient have a stroke diagnosis?: No VTE Prior VTE?: No VTE Risk Level:: Medical - moderate - high VTE Device Contraindication: Treatment Not Indicated VTE Drug Contraindication: N/A - Med Ordered
--- NOTE | 2025-03-24 16:44 | P.PNHO-ONC_ITS ---
Medical Summary - Medical Summary Date of Service: 03/24/25 Chief complaint: Nausea and abdominal pain Primary Care Provider: Emilie Davis MD Medical Summary: DIAGNOSIS: Adenocarcinoma of the pancreas stage T2, N0. Started on FOLFIRINOX 1st cycle on 03/17. Admitted with refractory nausea vomiting. Information Technology Officer Utilized?: No - Arabic Speaking Interval History Interval history: Harriet Roberson is a 55 year old trans gentleman, with a PMH significant for?pancreatic adenocarcinoma diagnosed in January of 2025, GERD, pancreatitis, and depression. He presented to the ED with intractable nausea, vomiting, and abdominal pain x3 days. Pt is currently being followed in oncology. He has been started on FOLFIRINOX based chemotherapy. The plan is to proceed with a Whipple at [facility], after 3 cycles of chemotherapy to shrink the tumor away from the superior mesenteric vein. He had his 1st cycle of chemotherapy on Saturday and went home with infusion that was completed on Saturday. Three hours after infusion, he developed intractable nausea, vomiting, and abdominal pain. He was not able to tolerate anything by mouth since then. Has had lightheadedness and a headache. Here his vitals were significant for: Tachycardia 105, tachypnea 28, BP stable. Labs were significant for elevated H&H 16.8/48.9. CT of head negative for acute abnormality. CTA of chest negative for PE or acute disease. CTA of abdomen/pelvis showed: Mild thickening of descending colon of unclear significance; No clear evidence of acute abdomen. Pt was treated in the ED with Compazine, Dilaudid, and IVF. He was admitted to the hospital under observation for treatment and further evaluation of intractable nausea and vomiting likely secondary to chemotherapy. Medical History: Elevated LFTs Pancreatic mass Acute pancreatitis Pancreatic mass Upper abdominal pain Erosive esophagitis Abdominal pain Sleep difficulties Vomiting LEE (dyspnea on exertion) Arthritis Occipital neuralgia of left side New onset headache Diverticulosis of colon Chronic, continuous use of opioids Chronic GERD Palpitations Hypotension History of palpitations Dysphagia Disc degeneration, lumbar Spondylosis of lumbar spine Depression Past heart attack Hyperlipemia Erosive osteoarthritis of hands, bilateral GERD (gastroesophageal reflux disease) Hypertension Family History: Mother Hypertension Breast cancer Maternal Grandmother Myocardial infarct Skin cancer Sister Heart problem Breast cancer Family/Other Esophageal cancer Review of Systems - Neurologic Reports no additional neurologic complaints [facility] Medical History: Medical History (Last Reviewed 03/22/25 @ 20:40 by Radha Jiménez RN) Abdominal pain Acute pancreatitis Arthritis Chronic GERD Chronic, continuous use of opioids Depression Disc degeneration, lumbar Diverticulosis of colon LEE (dyspnea on exertion) Dysphagia Elevated LFTs Erosive esophagitis Erosive osteoarthritis of hands, bilateral GERD (gastroesophageal reflux disease) History of palpitations Hyperlipemia Hypertension Hypotension New onset headache Occipital neuralgia of left side Palpitations Pancreatic mass Pancreatic mass Past heart attack Sleep difficulties Spondylosis of lumbar spine Upper abdominal pain Vomiting Functional capacity: independent ambulation Family History: Family History (Last Reviewed 03/11/25 @ 13:50 by Jerrell Tinajero) Mother Hypertension Breast cancer Maternal Grandmother Myocardial infarct Skin cancer Sister Heart problem Breast cancer Family/Other Esophageal cancer Surgical History: Surgical History (Last Reviewed 03/22/25 @ 20:40 by Radha Jiménez RN) H/O bilateral mastectomy H/O: hysterectomy History of cholecystectomy History of esophagogastroduodenoscopy (EGD) Hx of colonoscopy Social History: Social History (Last Reviewed 03/22/25 @ 10:46 by Virginia Monroe DO) Living Situation History: Household Members: None Housing: Apartment Are you a primary animal care supervisor to a significant other at home: No Do you presently have visiting nurse or other home services: No Tobacco History: Patient Tobacco Use Status: Former Tobacco user Second Hand Smoke Exposure: No Substance Use History: Substance Use Type: Marijuana Occupation Assessmet: service: No Home Medications and Allergies Current Medications: Current Medications Acetaminophen (Acetaminophen 325 Mg Tablet) 650 mg PO Q6H PRN PRN Reason: Pain, Mild 1-3,fever,headache Bisacodyl (Bisacodyl 5 Mg Tablet.Dr) 10 mg PO BEDTIME PRN PRN Reason: Constipation Calcium Carbonate (Calcium Carbonate 750 Mg Tab.Chew) 750 mg PO Q4H PRN PRN Reason: Heartburn Dexamethasone (Dexamethasone 4 Mg Tablet) 4 mg PO BID KARLI On Hold: 03/23/25 15:46 Resume: 03/25/25 15:46 Last Admin: 03/23/25 08:46 Dose: Not Given Dexamethasone Sodium Phosphate (Dexamethasone Sod Phosphate 4 Mg/Ml Vial) 4 mg IVPUSH BID [facility] Last Admin: 03/24/25 08:54 Dose: 4 mg Enoxaparin Sodium (Enoxaparin Sodium 40 Mg/0.4 Ml Syringe) 40 mg SUBCUT Q24H [facility] Last Admin: 03/23/25 17:14 Dose: 40 mg Hydromorphone HCl (Hydromorphone Hcl 1 Mg/Ml Syringe) 0.5 mg IVPUSH Q4H PRN; Protocol PRN Reason: Pain, Severe (Pain Scale 7-10) Last Admin: 03/24/25 00:32 Dose: 0.5 mg Lactated Ringer's (Lr) 1,000 mls @ 100 mls/hr IVCONT .Q10H [facility] Last Admin: 03/24/25 15:24 Dose: 100 mls/hr Lorazepam (Lorazepam 0.5 Mg Tablet) 0.5 mg PO BEDTIME PRN PRN Reason: Anxiety Magnesium Hydroxide (Milk Of Magnesia 30 Ml Oral.Susp) 30 ml PO DAILY PRN PRN Reason: Constipation Magnesium Oxide (Magnesium Oxide 400 Mg Tablet) 400 mg PO BEDTIME [facility] Last Admin: 03/23/25 21:25 Dose: Not Given Melatonin (Melatonin 3 Mg Tablet) 6 mg PO BEDTIME PRN PRN Reason: Insomnia Ondansetron HCl (Ondansetron Hcl 4 Mg/2 Ml Vial) 4 mg IVPUSH Q4H PRN PRN Reason: Nausea and Vomiting Last Admin: 03/24/25 12:11 Dose: 4 mg Oxycodone HCl (Oxycodone Hcl Immed Release 5 Mg Tablet) 5 mg PO Q8H PRN PRN Reason: Severe Pain (Scale Score 7-10) Pantoprazole Sodium (Pantoprazole Sodium 40 Mg/10 Ml Vial) 40 mg IVPUSH DAILY@0630 [facility] Last Admin: 03/24/25 05:42 Dose: 40 mg Prochlorperazine Edisylate (Prochlorperazine Edisylate 10 Mg/2 Ml Vial) 5 mg IVPUSH Q4H PRN PRN Reason: Nausea and Vomiting Sodium Chloride (0.9 % Sodium Chloride Flush 3 Ml Syringe) 3 ml IVFLUSH QSHIFT [facility] Last Admin: 03/24/25 15:26 Dose: Not Given Home Medications ?Medication ?Instructions ?Recorded ?Confirmed ?Type cabotegravir 600 mg/3 mL (200 600 mg IM [id number] 02/18/25 03/22/25 His tory mg/mL) IM suspension,extended release (Apretude) bisacodyl 5 mg tablet,delayed 10 mg PO BEDTIME PRN Constipation 03/22/25 History release (Dulcolax (bisacodyl)) lidocaine 5 % topical ointment 1 appl topical BID PRN port a cath 03/2203/22/25 History lorazepam 0.5 mg tablet 0.5 mg PO BEDTIME PRN anxiety 03/22/25 1 05/22/24 History ondansetron 8 mg disintegrating 8 mg PO Q8H PRN nausea and vomiting 03/1303/22/25 History tablet Allergies Allergy/AdvReac Type Severity Reaction Status Date / Time black pepper Allergy Severe Anaphylaxis Verified 03/22/25 11:09 Penicillins (PENICILLINS) Allergy Intermediate HIVES,SWELL Verified 03/22/25 11:09 ING sumatriptan (SUMATRIPTAN) AdvReac Severe PT STATES Verified 03/22/25 11:09 HEART ATTACK berries Allergy Unknown Anaphylaxis Uncoded 03/24/25 12:03 Exam Vital signs: Vital Signs Temp 97.7 F 03/24/25 15:42 Pulse 72 03/24/25 15:42 Resp 18 03/24/25 15:42 BP 131/82 03/24/25 15:42 Pulse Ox 97 03/24/25 15:42 O2 Del Method Room Air 03/24/25 15:42 Intake & Output 03/23/25 03/24/25 03/24/25 18:59 06:59 18:59 Intake Total 540 / 2596.667 2056.667 / 2596.667 2099 Balance 540 / 2596.667 6.667 / 2596.667 2099 Intake: Intake, Oral Amount 540 / 720 180 / 720 1100 / 1100 Intake, IV Amount 1876.667 / 4863.121 2052 / 1000 Lactated Ringers 1,000 ml @ 100 1876.667 / 0473.710 8341 / 1000 mls/hr IVCONT .Q10H [facility] Rx#: [id number] Other: Breakfast % Eaten 25% 0% Lunch % Eaten 50% Eating (Feeding) Ability Independent Number of Unmeasured Voids 1 2 Number of Bowel Movements 0 Urine Bedside Commode Urine Color Yellow Last Bowel Movement 03/21/25 03/21/25 03/21/25 Weight 45.2 kg Weight 45.2 kg BMI result Body Mass Index 16.6 - Constitutional Present: mild distress - Routine HEENT Exam Head: Present: normal inspection, normocephalic - Routine Respiratory Exam Present: CTAB - Routine Cardiovascular Exam Cardiovascular: Present: RRR, S1, S2 - Routine Abdominal Exam Present: soft, nontender Data - Labs CBC & Chem 7: 03/23/25 05:33 03/23/25 05:33 Labs: Laboratory Last Values WBC 6.3 X10*3/uL (4.8-10.8) 03/23/25 05:33 RBC 4.78 X10*6/uL (4.20-5.50) 03/23/25 05:33 Hgb 14.1 g/dl (12.0-16.0) 03/23/25 05:33 Hct 42.6 % (37.0-47.0) 03/23/25 05:33 MCV 89.1 fL (80.0-98.0) 03/23/25 05:33 MCH 29.5 pg (27.0-33.0) 03/23/25 05:33 MCHC 33.1 g/dl (31.0-35.0) 03/23/25 05:33 RDW 13.2 % (11.0-16.0) 03/23/25 05:33 Plt Count 201 X10*3/uL (160-400) 03/23/25 05:33 MPV 9.9 fL (9.4-12.3) 03/23/25 05:33 Immature Gran % (Auto) 0.5 % (0.0-0.4) H 03/22/25 11:26 Neut % (Auto) 66.1 % (45-73) 03/22/25 11:26 Lymph % (Auto) 30.9 % (20-40) 03/22/25 11:26 Bremer % (Auto) 1.9 % (2-11) L 03/22/25 11:26 Eos % (Auto) 0.4 % (0-4) 03/22/25 11:26 Baso % (Auto) 0.2 % (0-2) 03/22/25 11:26 Lymph # (Auto) 2.6 X10*3/uL (1.2-4.9) 03/22/25 11:26 Bremer # (Auto) 0.2 X10*3/uL (0.1-1.2) 03/22/25 11:26 Eos # (Auto) 0.0 X10*3/uL (0.0-0.4) 03/22/25 11:26 Baso # (Auto) 0.0 X10*3/uL (0.0-0.2) 03/22/25 11:26 Abs Immat Gran (auto) 0.04 X10*3/uL (0.00-0.03) H 03/22/25 11:26 Absolute Neuts (auto) 5.6 x10*3/uL (2.0-8.3) 03/22/25 11: Absolute Nucleated RBC 0.000 X10*3/uL (0.0-0.012) 03/23/25 05:33 Nucleated RBC % (auto) 0.0 /100WBC (0.0-0.2) 03/23/25 05:33 Sodium 137 mmol/L (135-145) 03/23/25 05:33 Potassium 4.3 mmol/L (3.3-5.1) 03/23/25 05:33 Chloride 102 mmol/L (96-108) 03/23/25 05:33 Carbon Dioxide 27 mmol/L (22-29) 03/23/25 05:33 Anion Gap 12 (12-20) 03/23/25 05:33 BUN 11 mg/dL (9-16) 03/23/25 05:33 Creatinine 0.65 mg/dL (0.5-1.4) 03/23/25 05:33 Estim Creat Clear Calc 68.9 03/23/25 05:33 Estimated GFR > 60 03/23/25 05:33 Random Glucose 88 mg/dL (60-115) 03/23/25 05:33 Lactic Acid 1.6 mmol/L (0.5-2.0) 03/22/25 11: Calcium 8.9 mg/dL (8.4-10.2) D 03/23/25 05:33 Magnesium 2.1 mg/dL (1.6-2.6) 03/22/25 11: Total Bilirubin 0.8 mg/dL (0.0-1.0) 03/22/25 11: Direct Bilirubin 0.2 mg/dL (0.0-0.5) 03/22/25 11:26 AST 30 U/L (5-31) 03/22/25 11:26 ALT 33 U/L (0-31) H 03/22/25 11: Alkaline Phosphatase 100 U/L (39-117) 03/22/25 11: Troponin I High Sens 3.2 ng/L (<3.5-17.0) 03/22/25 11:26 Total Protein 7.8 g/dL (6.5-8.0) 03/22/25 11: Albumin 4.5 g/dL (3.5-5.0) 03/22/25 11: Lipase 44 U/L (8-78) 03/22/25 11: Urine Color Yellow 03/22/25 13:42 Urine Appearance Clear 03/22/25 13:42 Urine pH 7.5 (5.0-9.0) 03/22/25 13:42 Ur Specific [place] 1.010 (1.005-1.025) 03/22/25 13:42 Urine Protein Negative mg/dL (Neg-Trace) 03/22/25 13:42 Urine Glucose (UA) Negative mg/dL (Negative) 03/22/25 13:42 Urine Ketones Negative mg/dL (Negative) 03/22/25 13:42 Urine Blood Negative (Negative) 03/22/25 13:42 Urine Nitrite Negative (Negative) 03/22/25 13:42 Ur Leukocyte Esterase Trace (Negative) H 03/22/25 13:42 Urine RBC 0-2 /HPF (0-2) 03/22/25 13:42 Urine WBC 0-5 /HPF (0-5) 03/22/25 13:42 Ur Squamous Epith Cells 3-5 /HPF (0-2) 03/22/25 13:42 Urine Bacteria None Seen (None Seen) 03/22/25 13:42 Hyaline Casts 0-2 /LPF (0-2) 03/22/25 13:42 Influenza Type A (PCR) NEGATIVE (Negative) 03/22/25 11: Influenza Type B (PCR) NEGATIVE (Negative) 03/22/25 11:26 RSV RNA Qual (PCR) NEGATIVE (Negative) 03/22/25 11:26 SARS-CoV-2 RNA (RT-PCR) NEGATIVE (Negative) 03/22/25 11:26 - Imaging Radiologist's impression: ITS Impressions Abdomen/Pelvis CT 03/22/25 13:03 IMPRESSION: There is questionable mild thickening of the descending colon and a more focal area of possible thickening at the rectosigmoid junction without clear fat stranding. The significance is uncertain. This could be related to less distention through this area, but other etiologies are not ruled out including infection, ischemia, inflammatory bowel disease, and neoplasm. Again noted is diverticulosis in the descending and sigmoid colon. Again seen is an ill-defined mass in the uncinate region of the pancreas with intrahepatic and extrahepatic biliary ductal dilation concerning for adenocarcinoma. There is a moderate to large amount stool in the colon between the hepatic flexure and rectum. 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 The duodenum is distended and fluid filled proximal to this level. There are calcified granulomas in the lung bases. Fleischner guidelines were followed. Electronically signed by: Rob Arteaga MD 03/22/2025 02:18 PM EST RP Chest CTA 03/22/25 13:03 IMPRESSION: 1. No evidence of filling defects to suggest central or subsegmental pulmonary emboli. 2. Redemonstrated air-fluid level in the mid thoracic esophagus, which can be associated with gastroesophageal reflux disease or esophageal dysmotility. 3. Bibasilar atelectasis. 4. Additional findings and details as above. VTE: negative IMPRESSION: Unremarkable examination. Fleischner guidelines were followed. Electronically signed by: Huseyin Cerna MD 03/22/2025 02:12 PM EST RP Head CT 03/22/25 13:03 IMPRESSION: No acute fracture, bony calvarium. No acute intracranial hemorrhage. Electronically signed by: Eric Daley MD 03/22/2025 01:48 PM EST RP Assessment and Plan Patient Active problem list reviewed?: Yes (1) Pancreatic adenocarcinoma Status: Chronic Assessment and plan: This is a 55-year-old male(transition) who has been diagnosed with pancreatic adenocarcinoma in January 2025. He presented with symptoms of chronic dysphagia and abdominal pain. MRI abdomen on 01/2025 for acute pancreatitis. This revealed hypoenhancing solid mass measuring 2.5 x 2.7 cm in the pancreatic head/uncinate process which was compressing the distal CBD and causing moderate to severe stenosis. Upstream extrahepatic and intrahepatic ducts were mildly dilated. Status post cholecystectomy. This was read as concerning for malignancy. ERCP and tissue sampling was recommended. Patient underwent endoscopic ultrasound and biopsy of this mass at [facility] on 02/18/2025. FNA of pancreatic head mass from 02/18/2025 revealed Adenocarcinoma. He had another CT abdomen/pelvis with contrast on 02/18/2025 which showed: 2.7 x 1.6 cm mass near the head of pancreas/uncinate process that may be part of pancreas or a large peripancreatic lymph node resulting in mild intrahepatic biliary tree dilatation and severe dilatation of the common bile duct which measures 1.[address] chest with contrast performed at [facility] on 02/23/2025 showed no evidence of metastatic disease in chest. Mild coronary artery calcifications, calcified granulomas with soft tissue nodules unchanged since 2018 and considered benign. PET scan has been ordered. Clinical stage T2 N0. The role of preoperative or neoadjuvant chemotherapy for downsizing tumor, was discussed He was referred to [facility] surgical Oncology. He met with Dr. Costa Miller at [facility] on 03/09/25 who suggested proceeding with 3 cycles of chemotherapy to shrink the tumor away from the superior mesenteric vein. He will then proceed with a Whipple's with possible small venous reconstruction. He had a Port-A-Cath insertion on 03/16/2025. He started FOLFIRINOX on 03/17/2025. He reported pain across the upper abdomen in the right upper quadrant. Previously treated with p.o. morphine post hospital discharge. However, reporeds lightheadedness with morphine. Tolerated oxycodone well in the past. Prescription for oxycodone 5 mg p.o. q.8 hours as needed was given. Chronic dysphagia and underweight. PLAN: On analgesics for pain. Started on Antiemetics. Decadron and Zofran. Compazine PRN. Clear liquid dies for now, advance as tolerated Nutrition consult has been placed. Ensure dietary supplement was prescribed. Is doing better, abdominal pain has resolved. He can be switched to oral medications before discharge. - Time Spent With Patient Time Spent with Patient (in minutes): 15 Additional Coding: - Additional E/M codes Complex E/M visit Add On: CPT G2211
[2025-03-25] MEDS: Lactated Ringers 1,000 ML 100 ML IVCONT (00:40)
[2025-03-25 03:58] VITALS: BP 114/77; PULSE 62; RESP 18; TEMP 36.1; O2SAT 98
[2025-03-25 04:00] VITALS: BP 138/70; PULSE 100; RESP 18; TEMP 36.6; O2SAT 100
[2025-03-25 06:50] VITALS: BP 130/63; PULSE 58; RESP 16; TEMP 36.6; O2SAT 98
[2025-03-25 07:19] LABS: Anion Gap 11 (12-20); Blood Urea Nitrogen 10 mg/dL (9-16); Calcium 8.9 mg/dL (8.4-10.2); Carbon Dioxide 28 mmol/L (22-29); Chloride 105 mmol/L (96-108); Creatinine Clr Calc Pharmacy 70.0; Estimated Glomerular Filt Rate > 60; Magnesium 1.9 mg/dL (1.6-2.6); Potassium 4.2 mmol/L (3.3-5.1); Sodium 140 mmol/L (135-145)
[2025-03-25] MEDS: 0.9 % Sodium Chloride Flush 3 ML SYRINGE IVFLUSH (08:20)
[2025-03-25 11:05] VITALS: BP 133/72; PULSE 81; RESP 16; TEMP 36.6; O2SAT 98
--- NOTE | 2025-03-25 11:39 | P.DS_ITS ---
DS: Providers Provider Date of Service: 03/25/25 Date of admission: 03/22/25 15:44 Date of discharge: 03/25/25 Primary care physician: Emilie Davis MD Consults: 03/23/25 09:58 Consult to Hematology / Oncology Routine Consulting Provider: [facility] Oncology/Hematology Reason for consultation: post chemo nausea/vomit Has provider been notified: No DS: Diagnosis Discharge Diagnosis (1) Pancreatic adenocarcinoma: Status: Chronic (2) Chemotherapy induced nausea and vomiting: Status: Acute (3) Insomnia: Status: Acute (4) Moderate protein-calorie malnutrition: Status: Acute DS: Summary Hospital Course Hospital Course: From the history and physical by the admitting hospitalist, KATTY Moctezuma, 03/22/25: 'Pt is a 55-year-old with a PMH significant for?pancreatic adenocarcinoma diagnosed in January of 2025, GERD, pancreatitis, and depr ession who presents to the ED with intractable nausea, vomiting, and abdominal pain x3 days. Pt is currently being followed by Dr. Mar in oncology with plan to proceed with 3 cycles of chemotherapy to shrink the tumor away from the superior mesenteric vein before proceeding with a Whipple at [facility]. Pt had 1st session of chemotherapy on Saturday and went home with infusion that was completed on Saturday. Approximately 3 hours after infusion, pt developed intractable nausea, vomiting, and abdominal pain. Has been unable to tolerate anything by mouth since then. Some lightheadedness and dizziness and headache. In the ED pt's vitals were significant for tachycardia 105, tachypnea 28, BP stable. Labs were significant for elevated H&H 16.8/48.9, otherwise grossly unremarkable and around baseline for pt. CT of head negative for acute abnormality. CTA of chest negative for PE or acute disease. CTA of abdomen/pelvis showing a question of mild thickening of descending colon of unclear significance; no clear evidence of acute abdomen. Pt was treated in the ED with Compazine, Dilaudid, and IVF. Pt is admitted to the hospital under observation for treatment and further evaluation of intractable nausea and vomiting likely secondary to chemotherapy.' 55yo F->M with pancreatic adenoCA on chemotherapy admitted for intractable nausea, vomiting, and abdominal pain due to chemotherapy. Treated with IV dexamethasone, ondansetron, prochlorperazine, bowel rest, and IV LR. Hematology/Oncology consulted. Gradually advanced to clear liquid, then solid diet with good tolerance. Eventual plan is to complete 3 cycles FOLFIRINOX [started 03/17/25] to shrink tumor away from SMV, then plan Whipple at [facility] [place] [place]. Discharged with instructions to take dietary supplements for protein/calorie malnutrition, refill of ondansetron, and trazodone for insomnia. Time Attestation Discharge Coordination Time (in mins): 40 Quality: Safe Use of Opioids Does Pt have an Active Cancer Diagnosis on the Problem List?: Yes Opioid Measure Date for [facility] Report: 02/23/25 Opioid Measure Time for [facility] Report: 11:44 Quality: Stroke Does the patient have a stroke diagnosis?: No Physical Exam Vital Signs: Vital Signs: Last Vital Signs Temp 98 F 03/25/25 11:05 Pulse 81 03/25/25 11:05 Resp 16 03/25/25 11:05 BP 133/72 03/25/25 11:05 Pulse Ox 98 03/25/25 11:05 O2 Del Method Room Air 03/25/25 11:05 BMI result Body Mass Index 16.6 Gen: in no acute distress, extensive muscle wasting HEENT: sclera anicteric, moist mucus membranes Neck: supple, left subclavian port Lungs: clear to auscultation bilaterally Heart: regular rate and rhythm, no murmurs Abd: soft, non-tender, non-distended Ext: no edema Skin: warm/well-perfused Neuro: alert and oriented x3, no focal findings Psych: appropriate affect DS: Data Data Completed and Pending Completed studies during hospitalization [Text1]: Laboratory Results WBC 6.3 X10*3/uL (4.8-10.8) 03/23/25 05:33 RBC 4.78 X10*6/uL (4.20-5.50) 03/23/25 05:33 Hgb 14.1 g/dl (12.0-16.0) 03/23/25 05:33 Hct 42.6 % (37.0-47.0) 03/23/25 05:33 MCV 89.1 fL (80.0-98.0) 03/23/25 05:33 MCH 29.5 pg (27.0-33.0) 03/23/25 05:33 MCHC 33.1 g/dl (31.0-35.0) 03/23/25 05:33 RDW 13.2 % (11.0-16.0) 03/23/25 05:33 Plt Count 201 X10*3/uL (160-400) 03/23/25 05:33 MPV 9.9 fL (9.4-12.3) 03/23/25 05:33 Immature Gran % (Auto) 0.5 % (0.0-0.4) H 03/22/25 11:26 Neut % (Auto) 66.1 % (45-73) 03/22/25 11:26 Lymph % (Auto) 30.9 % (20-40) 03/22/25 11:26 [place] % (Auto) 1.9 % (2-11) L 03/22/25 11:26 Eos % (Auto) 0.4 % (0-4) 03/22/25 11:26 Baso % (Auto) 0.2 % (0-2) 03/22/25 11:26 Lymph # (Auto) 2.6 X10*3/uL (1.2-4.9) 03/22/25 11:26 [place] # (Auto) 0.2 X10*3/uL (0.1-1.2) 03/22/25 11:26 Eos # (Auto) 0.0 X10*3/uL (0.0-0.4) 03/22/25 11:26 Baso # (Auto) 0.0 X10*3/uL (0.0-0.2) 03/22/25 11:26 Abs Immat Gran (auto) 0.04 X10*3/uL (0.00-0.03) H 03/22/25 11:26 Absolute Neuts (auto) 5.6 x10*3/uL (2.0-8.3) 03/22/25 11: Absolute Nucleated RBC 0.000 X10*3/uL (0.0-0.012) 03/23/25 05:33 Nucleated RBC % (auto) 0.0 /100WBC (0.0-0.2) 03/23/25 05:33 Hold Purple Top SEE NOTE 03/25/25 06:50 Sodium 140 mmol/L (135-145) 03/25/25 05:55 Potassium 4.2 mmol/L (3.3-5.1) 03/25/25 05:55 Chloride 105 mmol/L (96-108) 03/25/25 05:55 Carbon Dioxide 28 mmol/L (22-29) 03/25/25 05:55 Anion Gap 11 (12-20) L 03/25/25 05:55 BUN 10 mg/dL (9-16) 03/25/25 05:55 Creatinine 0.64 mg/dL (0.5-1.4) 03/25/25 05:55 Estim Creat Clear Calc 70.0 03/25/25 05:55 Estimated GFR > 60 03/25/25 05:55 Random Glucose 92 mg/dL (60-115) 03/25/25 05:55 Lactic Acid 1.6 mmol/L (0.5-2.0) 03/22/25 11:26 Calcium 8.9 mg/dL (8.4-10.2) 03/25/25 05:55 Phosphorus 4.3 mg/dL (2.7-4.5) 03/25/25 05:55 Magnesium 1.9 mg/dL (1.6-2.6) 03/25/25 05:55 Total Bilirubin 0.8 mg/dL (0.0-1.0) 03/22/25 11:26 Direct Bilirubin 0.2 mg/dL (0.0-0.5) 03/22/25 11:26 AST 30 U/L (5-31) 03/22/25 11:26 ALT 33 U/L (0-31) H 03/22/25 11:26 Alkaline Phosphatase 100 U/L (39-117) 03/22/25 11:26 Troponin I High Sens 3.2 ng/L (<3.5-17.0) 03/22/25 11:26 Total Protein 7.8 g/dL (6.5-8.0) 03/22/25 11:26 Albumin 4.5 g/dL (3.5-5.0) 03/22/25 11:26 Lipase 44 U/L (8-78) 03/22/25 11:26 Urine Color Yellow 03/22/25 13:42 Urine Appearance Clear 03/22/25 13:42 Urine pH 7.5 (5.0-9.0) 03/22/25 13:42 Ur Specific [place] 1.010 (1.005-1.025) 03/22/25 13:42 Urine Protein Negative mg/dL (Neg-Trace) 03/22/25 13:42 Urine Glucose (UA) Negative mg/dL (Negative) 03/22/25 13:42 Urine Ketones Negative mg/dL (Negative) 03/22/25 13:42 Urine Blood Negative (Negative) 03/22/25 13:42 Urine Nitrite Negative (Negative) 03/22/25 13:42 Ur Leukocyte Esterase Trace (Negative) H 03/22/25 13:42 Urine RBC 0-2 /HPF (0-2) 03/22/25 13:42 Urine WBC 0-5 /HPF (0-5) 03/22/25 13:42 Ur Squamous Epith Cells 3-5 /HPF (0-2) 03/22/25 13:42 Urine Bacteria None Seen (None Seen) 03/22/25 13:42 Hyaline Casts 0-2 /LPF (0-2) 03/22/25 13:42 Influenza Type A (PCR) NEGATIVE (Negative) 03/22/25 11:26 Influenza Type B (PCR) NEGATIVE (Negative) 03/22/25 11:26 RSV RNA Qual (PCR) NEGATIVE (Negative) 03/22/25 11:26 SARS-CoV-2 RNA (RT-PCR) NEGATIVE (Negative) 03/22/25 11:26 Impressions Abdomen/Pelvis CT 03/22/25 13:03 IMPRESSION: There is questionable mild thickening of the descending colon and a more focal area of possible thickening at the rectosigmoid junction without clear fat stranding. The significance is uncertain. This could be related to less distention through this area, but other etiologies are not ruled out including infection, ischemia, inflammatory bowel disease, and neoplasm. Again noted is diverticulosis in the descending and sigmoid colon. Again seen is an ill-defined mass in the uncinate region of the pancreas with intrahepatic and extrahepatic biliary ductal dilation concerning for adenocarcinoma. There is a moderate to large amount stool in the colon between the hepatic flexure and rectum. 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 The duodenum is distended and fluid filled proximal to this level. There are calcified granulomas in the lung bases. Fleischner guidelines were followed. Electronically signed by: Rob Arteaga MD 03/22/2025 02:18 PM EST RP Chest CTA 03/22/25 13:03 IMPRESSION: 1. No evidence of filling defects to suggest central or subsegmental pulmonary emboli. 2. Redemonstrated air-fluid level in the mid thoracic esophagus, which can be associated with gastroesophageal reflux disease or esophageal dysmotility. 3. Bibasilar atelectasis. 4. Additional findings and details as above. VTE: negative IMPRESSION: Unremarkable examination. Fleischner guidelines were followed. Electronically signed by: Huseyin Cerna MD 03/22/2025 02:12 PM EST RP Head CT 03/22/25 13:03 IMPRESSION: No acute fracture, bony calvarium. No acute intracranial hemorrhage. Electronically signed by: Eric Daley MD 03/22/2025 01:48 PM EST RP Discharge Plan Discharge Anticipated Discharge Date/Time: 03/25/25 11:33 Patient Disposition: Home, Self-Care Discharge Diagnosis: nausea and vomiting due to chemotherapy, malnutrition, insomnia Referrals: Emilie Davis MD [Primary Care Provider, Family Practice] - 1 Week Discharge Medications: New trazodone 50 mg tablet 50 mg PO BEDTIME PRN (Reason: insomnia) Qty: 30 0RF Continued cabotegravir [Apretude] 600 mg/3 mL (200 mg/mL) suspension,extended release 600 mg IM [id number] oxycodone 5 mg Capsule 5 mg PO Q8H PRN (Reason: Severe Pain (Scale Score 7-10)) Qty: 30 0RF Rx Instructions: Partial Fill upon patient request. dexamethasone 4 mg Tablet 4 mg PO BID Qty: 30 0RF Rx Instructions: Take 1 tablet twice a day day 2 and 3 after chemotherapy; gets chemo treatment Wednesdays-Fridays (takes on & Saturday BID). Ensure Liquid 1 ea PO BID Qty: 48 3RF lorazepam 0.5 mg tablet 0.5 mg PO BEDTIME PRN (Reason: anxiety) bisacodyl [Dulcolax (bisacodyl)] 5 mg tablet,delayed release (DR/EC) 10 mg PO BEDTIME PRN (Reason: Constipation) lidocaine 5 % ointment 1 appl topical BID PRN (Reason: port a cath) (DME) Oxygen Home Use Kit See Rx Instructions .Route Qty: 3 0RF Rx Instructions: Start home O2 at 15-25 L/min via non-rebreather facemask x's 15-20 minutes at onset of cluster headache attack. Patient will require both M tanks and E tanks. magnesium oxide 400 mg (241.3 mg magnesium) tablet 400 mg PO BEDTIME 30 Days Qty: 30 6RF Rx Instructions: may hold for loose stools Changed ondansetron 8 mg tablet,disintegrating 8 mg PO Q8H PRN (Reason: nausea and vomiting ) Qty: 20 0RF Discharge Orders: Discharge Order (Routine); Ordered 03/25/25 Ordered By: Esa Summers Diet: Advance to usual diet Activity on Discharge: As tolerated Stand Alone Forms: Patient Portal Discharge page Print Language: Cape Verdean Care Plan Goals: resume cancer treatment Health Concerns: nausea and vomiting due to chemotherapy, malnutrition, insomnia Plan of Treatment: Ondansetron as needed for nausea/vomiting Take Ensure, Boost, or other protein/calorie supplement Trazodone as needed for insomnia Follow up with Dr Mar in 1-2 weeks Please follow up with your primary care doctor within 1 week. Return to the hospital if you experience recurrent or worsening symptoms. Assessment: See Discharge Summary.
--- NOTE | 2025-03-25 11:41 | MHC.CM.PN ---
PT CLEARED TO DC HOME TODAY WITH NO SERVICES PT TO ARRANGE TRANSPORT
[2025-03-25 12:22] VITALS: BP 120/72; PULSE 93; RESP 18; TEMP 36.3; O2SAT 98
== END 2025-03-25 12:23 | disposition home or self-care (01) ==
LOC: HO.ED 15:01 → HO.EDOVER 16:28 → HO.S3 19:18
PROVIDERS: Admitting Provider Student in an Organized Health Care Education/Training Program; Emergency Provider Emergency Medicine; PCP Family Medicine; Visit Provider Family Medicine
DX: C25.9 Malignant neoplasm of pancreas, unspecified (principal); R11.2 Nausea with vomiting, unspecified; E46 Unspecified protein-calorie malnutrition; Z68.1 Body mass index [BMI] 19.9 or less, adult; T45.1X5A Adverse effect of antineoplastic and immunosuppressive drugs, initial encounter; R10.9 Unspecified abdominal pain; R07.9 Chest pain, unspecified; K21.9 Gastro-esophageal reflux disease without esophagitis; R13.10 Dysphagia, unspecified; G47.00 Insomnia, unspecified; I10 Essential (primary) hypertension; E78.5 Hyperlipidemia, unspecified; R00.0 Tachycardia, unspecified; R14.0 Abdominal distension (gaseous); R07.89 Other chest pain; R51.9 Headache, unspecified; F32.A Depression, unspecified; Z03.818 Encounter for observation for suspected exposure to other biological agents ruled out; Z87.891 Personal history of nicotine dependence; Z79.899 Other long term (current) drug therapy
CPT/HCPCS: 36415; 70450; 71275; 74177; 80048; 80076; 81001; 83605; 83690; 83735; 84100; 84484; 85025; 85027; 87040; 87637; 93005; 96360; 96361; 96372; 96374; 96375; 96376; 99221; 99285; J0737; J1100; J1171; J1650; J2405; J2470; J7120; Q9967

== ENCOUNTER → 2025-03-22 10:50 | Outpatient (BNV) | payer OTHER, SELFPAY | PROVIDERS: Admitting Provider Student in an Organized Health Care Education/Training Program; Emergency Provider Emergency Medicine; PCP Family Medicine; Visit Provider Internal Medicine Cardiovascular Disease | DX: R00.0 Tachycardia, unspecified (principal) | CPT/HCPCS: 93010 ==

== ENCOUNTER → 2025-03-22 15:44 | Outpatient (BNV) | payer OTHER, SELFPAY | PROVIDERS: Admitting Provider Student in an Organized Health Care Education/Training Program; Emergency Provider Emergency Medicine; PCP Family Medicine; Visit Provider Internal Medicine | DX: C25.0 Malignant neoplasm of head of pancreas (principal); R11.2 Nausea with vomiting, unspecified | CPT/HCPCS: 99222; 99231 ==

== ENCOUNTER → 2025-03-22 15:44 | Outpatient (BNV) | payer OTHER, SELFPAY | PROVIDERS: Admitting Provider Student in an Organized Health Care Education/Training Program; Emergency Provider Emergency Medicine; PCP Family Medicine; Visit Provider Student in an Organized Health Care Education/Training Program | DX: K21.9 Gastro-esophageal reflux disease without esophagitis (principal); R13.10 Dysphagia, unspecified; R10.9 Unspecified abdominal pain; C25.9 Malignant neoplasm of pancreas, unspecified | CPT/HCPCS: 99232 ==

== ENCOUNTER 2025-03-30 14:44 | Emergency (ER) | payer OTHER, SELFPAY ==
[2025-03-30 15:00] VITALS: BP 112/76; BP 117/78; PULSE 70; PULSE 72; RESP 16; TEMP 37.1; O2SAT 100; O2SAT 99; BMI 16.7
[2025-03-30] MEDS: Lactated Ringers 1,000 ML 999 ML IV (15:37)
--- NOTE | 2025-03-30 15:41 | ED_ITS ---
HPI - Abdominal Pain General Chief Complaint: Abdominal Pain Stated Complaint: ABD PAIN Time Seen by Provider: 03/30/25 15:12 Source: patient and old records reviewed Mode of arrival: ambulatory Limitations: no limitations History of Present Illness ED Provider: DEO PARKER narrative: 55-year-old patient with past medical history of pancreatic adenocarcinoma diagnosed in January of 2025 he follows with our Oncology Department, GERD, pancreatitis, depression. His current plan for his pancreatic adenocarcinomais 3 cycles [address] Dr[address] Mar then possible Whipple at [facility]. I just admitted him March 22 for abdominal pain, dehydration. He had a CT of the abdomen at that time showing question of mild thickening of the descending colon but otherwise no clear evidence of acute new pathology. He is currently on 5 mg oxycodone Q 8 hours as needed for pain but states it is not helping. He reports he is having normal bowel movements and passing gas. He has a lot of nausea. He has loose stool as well and feels very weak. MD elicited complaint: abdominal pain Pertinent past history: other Onset (ago): day(s) (Three days) Pain Consistency: constant Location: suprapubic Severity: severe Quality: aching Radiation: none Migration to: no migration Exacerbating factors: eating and movement Relieving factors: nothing Context: other Associated symptoms: nausea and diarrhea Related Data Home Medications ?Medication ?Instructions ?Recorded ?Confirmed cabotegravir 600 mg/3 mL (200 600 mg IM [id number] 02/1803/22/25 mg/mL) IM suspension,extended release (Apretude) bisacodyl 5 mg tablet,delayed 10 mg PO BEDTIME PRN Con stipation 03/22/25 03/22/25 release (Dulcolax (bisacodyl)) lidocaine 5 % topical ointment 1 appl topical BID PRN port a cath 03/22/25 03/22/25 lorazepam 0.5 mg tablet 0.5 mg PO BEDTIME PRN anxiet y 03/22/25 03/22/25 Previous Rx's ?Medication ?Instructions ?Recorded Oxygen Home Use #3 ea 09/24/24 magnesium oxide 400 mg (241.3 mg 400 mg PO BEDTIME 30 days #30 tabs 09/25/24 magnesium) tablet dexamethasone 4 mg tablet 4 mg PO BID #30 tabs 03/11/ 5 oxycodone 5 mg capsule 5 mg PO Q8H PRN Severe Pain (Scale 03/11/25 Score 7-10) #30 caps food supplemt, lactose-reduced 1 ea PO BID #48 ea 09/04 (Ensure oral liquid) ondansetron 8 mg disintegrating 8 mg PO Q8H PRN nausea and 03/25/25 tablet vomiting #20 tabs trazodone 50 mg tablet 50 mg PO BEDTIME PRN insomni a #30 03/25/25 tabs oxycodone 10 mg tablet 10 mg PO Q4H PRN pain #20 ta bs 03/30/25 Allergies Allergy/AdvReac Type Severity Reaction Status Date / Time black pepper Allergy Severe Anaphylaxis Verified 03/30/25 15:02 Penicillins (PENICILLINS) Allergy Intermediate HIVES,SWELL Verified 03/30/25 15:02 ING sumatriptan (SUMATRIPTAN) AdvReac Severe PT STATES Verified 03/30/25 15:02 HEART ATTACK berries Allergy Unknown Anaphylaxis Uncoded 03/30/25 15:02 Review of Systems Review of Systems Constitutional : No Weight loss, No Fever, No Chills ENT/Mouth : No sore throat, No Rhinorrhea Eyes: No Swelling, No Redness Cardiovascular : No Chest Pain, No SOB, NoEdema Respiratory : No Cough, No Sputum, No Wheezing Gastrointestinal : Positive Nausea, Positive Vomiting, positive Diarrhea, positive abdominal Pain, No Hematochezia, No Melena Genitourinary : No Dysuria, No Urinary Frequency, No Hematuria, No Urgency Musculoskeletal : No joint pain, No Myalgias, No Joint Swelling Skin : No Skin Lesions, No rash Neuro : No Weakness, No Numbness, No Dizziness, No Headache All other systems reviewed and are negative. ON LICENSE OF [facility] Past Medical History Attestation statement: The following information was validated with the patient. Source: old records reviewed Medical History Elevated LFTs Pancreatic mass Acute pancreatitis Pancreatic mass Upper abdominal pain Erosive esophagitis Abdominal pain Sleep difficulties Vomiting LEE (dyspnea on exertion) Arthritis Occipital neuralgia of left side New onset headache Diverticulosis of colon Chronic, continuous use of opioids Chronic GERD Palpitations Hypotension History of palpitations Dysphagia Disc degeneration, lumbar Spondylosis of lumbar spine Depression Past heart attack Hyperlipemia Erosive osteoarthritis of hands, bilateral GERD (gastroesophageal reflux disease) Hypertension Surgical History History of cholecystectomy Hx of colonoscopy History of esophagogastroduodenoscopy (EGD) H/O bilateral mastectomy H/O: hysterectomy Family History Family History Mother Hypertension Breast cancer Maternal Grandmother Myocardial infarct Skin cancer Sister Heart problem Breast cancer Family/Other Esophageal cancer Social History Social History Household Members: None Housing: Apartment Are you a primary day care attendant to a significant other at home: No Do you presently have visiting nurse or other home services: No Unable to assess alcohol history related to: Unknown Alcohol intake: never Patient Tobacco Use Status: Former Tobacco user Smoked in Last 30 Days: No Second Hand Smoke Exposure: No Use of substances other than those prescribed or required for medical reasons: Unknown Substance Use Type: Marijuana Advance Directives: No Advance Directives Information Provided: Yes service: No Physical Exam ED Vital Signs: Vital Signs - 24 hr 03/30/25 15:00 03/30/25 16:00 Temperature 98.7 F 98.7 F Pulse Rate 72 72 Respiratory Rate 16 16 Blood Pressure 117/78 117/78 Pulse Oximetry 100 100 Oxygen Delivery Method Room Air Room Air BMI result Body Mass Index 16.7 Appearance: Alert. Oriented X3. No acute distress. Frail and cachectic Eyes: Pupils equal, round and reactive to light. ENT: Pharynx normal. Neck: Normal inspection. Neck supple. CVS: Normal heart rate and rhythm. Pulses normal. Respiratory: No respiratory distress. Breath sounds normal. Abdomen: Soft and mild suprapubic tenderness to palpation but no rebound or guarding Skin: Skin warm and dry. Pain skin color. Poor skin turgor. Extremities: No lower extremity edema. No calf ttp Neuro: Oriented X 3. No motor deficit. No sensory deficit. CN2-12 intact Course Course Course Narrative: Signed out to Dr. Gambino at 16:00 Reevaluation(s) Reevaluation #1: Time: 17:25 Date: 03/30/25 Provider: Ramos Gambino MD I assumed care of this patient from my colleague, Dr. Monroe at 16:00 hours. patient states that his pain is improved and he is feeling better . The patient is able to eat and drink fluids therefore he was discharged home. Patient's oxycodone was increased from 5 mg to 10 mg tablets every 4-6 hours as needed for pain. He was given printed and verbal instructions and discharged home. Medical Decision Making Medical Decision Making [facility] Narrative: 55-year-old patient with past medical history of pancreatic adenocarcinoma diagnosed in January of 2025 he follows with our Oncology Department, GERD, pancreatitis, depression who is being treated with chemo by Dr. Mar, he is to start his 2nd round in the next week. He comes in with lower abdominal pain, diarrhea nonbloody x3 days, nausea. He states the oral oxycodone is not treating his pain. At this time I just imaged him 6 days ago for abdominal pain that had no new findings. I am going to start with labs, UA, IV pain control and reassess. If he continues to have pain would advance and proceed with imaging Differential Diagnosis Differential Diagnoses: The differential diagnosis associated with the presentation includes Dehydration, intractable nausea vomiting, chronic abdominal pain, known pancreatic cancer Admission/Observation Consideration of admission/observation: Escalation of care including admission/observation considered Lab Data [facility] Lab Attestation statement: I reviewed the patient's lab results. 03/30/25 15:33 03/30/25 15:33 Labs: Lab Results 03/30/25 03/30/25 Range/Units 15:33 15:42 WBC 4.2 L (4.8-10.8) X10*3/uL RBC 4.66 (4.20-5.50) X10*6/uL Hgb 13.6 (12.0-16.0) g/dl Hct 40.7 (37.0-47.0) % MCV 87.3 (80.0-98.0) fL MCH 29.2 (27.0-33.0) pg MCHC 33.4 (31.0-35.0) g/dl RDW 13.1 (11.0-16.0) % Plt Count 293 D (160-400) X10*3/uL MPV 8.7 L (9.4-12.3) fL Immature Gran % (Auto) Cancelled Neut % (Auto) Cancelled Lymph % (Auto) Cancelled Sutter % (Auto) Cancelled Eos % (Auto) Cancelled Baso % (Auto) Cancelled Lymph # (Auto) Cancelled Sutter # (Auto) Cancelled Eos # (Auto) Cancelled Baso # (Auto) Cancelled Abs Immat Gran (auto) Cancelled Absolute Neuts (auto) Cancelled Absolute Nucleated RBC 0.000 (0.0-0.012) X10*3/uL Nucleated RBC % (auto) 0.0 (0.0-0.2) /100WBC Neutrophils % (Manual) 12 L (45-73) % Band Neutrophils % 11 H (3-5) % Lymphocytes % (Manual) 62 H (20-40) % Atypical Lymphs % (Man) 2 (0-6) % Monocytes % (Manual) 8 (2-11) % Eosinophils % (Manual) 4 (0-4) % Basophils % (Manual) 1 (0-2) % Abs Neuts (Manual) 1.0 L (2.0-8.3) X10*3/uL Lymphocytes # (Manual) 2.6 (1.2-4.9) X10*3/uL Atyp Lymphs # (Manual) 0.1 x10*3/uL Monocytes # (Manual) 0.3 (0.1-1.2) X10*3/uL Eosinophils # (Manual) 0.2 (0.0-0.4) X10*3/uL Platelet Estimate NORMAL (NORMAL) Plt Morphology Comment NORMAL RBC Morphology NOTED Sheeba Cells 1+ (0-2) /OIF Smear Tech's Comments MANUAL DIFF Sodium 140 (135-145) mmol/L Potassium 3.9 (3.3-5.1) mmol/L Chloride 103 (96-108) mmol/L Carbon Dioxide 27 (22-29) mmol/L Anion Gap 14 (12-20) BUN 8 L (9-16) mg/dL Creatinine 0.63 (0.5-1.4) mg/dL Estim Creat Clear Calc 71.4 Estimated GFR > 60 Random Glucose 96 (60-115) mg/dL Calcium 9.1 (8.4-10.2) mg/dL Total Bilirubin 0.2 (0.0-1.0) mg/dL AST 17 (5-31) U/L ALT 10 (0-31) U/L Alkaline Phosphatase 79 (39-117) U/L Total Protein 7.1 (6.5-8.0) g/dL Albumin 3.8 (3.5-5.0) g/dL Lipase 29 (8-78) U/L Urine Color Yellow Urine Appearance Clear Urine pH 8.5 (5.0-9.0) Ur Specific Vernon 1.020 (1.005-1.025) Urine Protein Negative (Neg-Trace) mg/dL Urine Glucose (UA) Negative (Negative) mg/dL Urine Ketones 15 (Negative) mg/dL Urine Blood Negative (Negative) Urine Nitrite Negative (Negative) Ur Leukocyte Esterase Negative (Negative) Independent Historian Clinical information obtained from an independent historian. History obtained from or confirmed by: Friend External Record Review External record reviewed: Inpatient record, Outpatient record, Prior outpatient labs and Prior outpatient radiology Tests considered The following testing was considered but not selected: I did consider a CT scan of the abdomen but he just had imaging and overall he does not have acute abdomen if he has lab derangement would reconsider Medications Administered Discontinued Medications Generic Name Dose Route Start Last Admin Trade Name Gamal PRN Reason Stop Dose Admin Hydromorphone HCl 1 mg 03/30/25 15:15 03/30/25 15:37 Hydromorphone Hcl 1 Mg/Ml Syringe IVPUSH 03/30/25 15:16 1 mg ONCE ONE Administration Protocol Lactated Ringer's 1,000 mls @ 999 mls/hr 03/30/25 15:30 03/30/25 15:37 Lr IV 03/30/25 16:30 999 mls/hr .Q1H1M ONE Administration Ondansetron HCl 4 mg 03/30/25 15:15 03/30/25 15:37 Ondansetron Hcl 4 Mg/2 Ml Vial IVPUSH 03/30/25 15:16 4 mg ONCE ONE Administration Discharge Plan Discharge Clinical Impression: Abdominal pain Qualifiers: Abdominal location: suprapubic Qualified Code(s): R10.24 - Suprapubic pain Nausea & vomiting Qualifiers: Vomiting type: unspecified Qualified Code(s): R11.2 - Nausea with vomiting, unspecified Patient Disposition: Home, Self-Care Instructions: Acute Nausea and Vomiting (ED), Abdominal Pain (ED) Additional Instructions: Continue taking medications as prescribed by your providers. I am increasing your oxycodone dose from 5 mg to 10 mg every 4-6 hours as needed for pain. Increase the amount of fluid that you drink to stay hydrated, If food is bothering your stomach,then for the next 24 hours, stay on a HERMELINDA diet (bananas, rice, applesauce, tea and toast). Follow-up with your doctor in 2 days. Please return to the emergency department if your symptoms get worse or if you develop any symptoms that are concerning to you. Prescriptions: New oxycodone 10 mg tablet 10 mg PO Q4H PRN (Reason: pain) Qty: 20 0RF Rx Instructions: Partial Fill upon patient request. No Action cabotegravir [Apretude] 600 mg/3 mL (200 mg/mL) suspension,extended release 600 mg IM [id number] oxycodone 5 mg Capsule 5 mg PO Q8H PRN (Reason: Severe Pain (Scale Score 7-10)) Qty: 30 0RF Rx Instructions: Partial Fill upon patient request. dexamethasone 4 mg Tablet 4 mg PO BID Qty: 30 0RF Rx Instructions: Take 1 tablet twice a day day 2 and 3 after chemotherapy; gets chemo treatment Wednesdays-Fridays (takes on & Saturday BID). Ensure Liquid 1 ea PO BID Qty: 48 3RF lorazepam 0.5 mg tablet 0.5 mg PO BEDTIME PRN (Reason: anxiety) bisacodyl [Dulcolax (bisacodyl)] 5 mg tablet,delayed release (DR/EC) 10 mg PO BEDTIME PRN (Reason: Constipation) lidocaine 5 % ointment 1 appl topical BID PRN (Reason: port a cath) ondansetron 8 mg tablet,disintegrating 8 mg PO Q8H PRN (Reason: nausea and vomiting ) Qty: 20 0RF trazodone 50 mg tablet 50 mg PO BEDTIME PRN (Reason: insomnia) Qty: 30 0RF (DME) Oxygen Home Use Kit See Rx Instructions .Route Qty: 3 0RF Rx Instructions: Start home O2 at 15-25 L/min via non-rebreather facemask x's 15-20 minutes at onset of cluster headache attack. Patient will require both M tanks and E tanks. magnesium oxide 400 mg (241.3 mg magnesium) tablet 400 mg PO BEDTIME 30 Days Qty: 30 6RF Rx Instructions: may hold for loose stools Print Language: Maori
[2025-03-30 15:48] LABS: Hematocrit 40.7 % (37.0-47.0); Hemoglobin 13.6 g/dl (12.0-16.0); Mean Corpuscular HGB Conc 33.4 g/dl (31.0-35.0); Mean Corpuscular Hemoglobin 29.2 pg (27.0-33.0); Mean Corpuscular Volume 87.3 fL (80.0-98.0); NRBC Abs Auto 0.000 X10*3/uL (0.0-0.012); NRBC Pct Auto 0.0 /100WBC (0.0-0.2); Platelet Count 293 X10*3/uL (160-400); Red Blood Count 4.66 X10*6/uL (4.20-5.50); White Blood Count 4.2 X10*3/uL (4.8-10.8)
[2025-03-30 15:50] LABS: Appearance Urine Clear; Glucose Urine UA Negative (Negative); PH 8.5 (5.0-9.0); Specific Gravity - Urine 1.020 (1.005-1.025)
--- NOTE | 2025-03-30 15:50 | MHC.CM.ED ---
Received telephone call from Holli Hong of [facility]. She is the major case detective for patient. She can be reached via telephone at [phone] if there are any d/c needs. Holli Hong verifies patient was recently diagnosed with pancreatic cancer. Continue to monitor for d/c needs.
[2025-03-30 15:51] LABS: Lipase 29 U/L (8-78)
[2025-03-30 16:00] VITALS: BP 117/78; PULSE 72; RESP 16; TEMP 37.1; O2SAT 100
[2025-03-30 16:32] LABS: Alanine Aminotransferase 10 U/L (0-31); Albumin Level 3.8 g/dL (3.5-5.0); Alkaline Phosphatase 79 U/L (39-117); Anion Gap 14 (12-20); Aspartate Amino Transferase 17 U/L (5-31); Blood Urea Nitrogen 8 mg/dL (9-16); Calcium 9.1 mg/dL (8.4-10.2); Carbon Dioxide 27 mmol/L (22-29); Chloride 103 mmol/L (96-108); Creatinine Clr Calc Pharmacy 71.4; Estimated Glomerular Filt Rate > 60; Potassium 3.9 mmol/L (3.3-5.1); Sodium 140 mmol/L (135-145); Total Protein 7.1 g/dL (6.5-8.0)
--- NOTE | 2025-03-30 16:38 | PC.NURSE ---
Pt resting in bed at this time, states improvement in pain and nausea. IVF bolus continues to infuse, positional IV site.
[2025-03-30 16:42] LABS: Neutrophils Percent Manual 12 % (45-73)
[2025-03-30 16:43] LABS: Atypical Lymph Absolute Manual 0.1 x10*3/uL; Atypical Lymphs Percent Manual 2 % (0-6); Band Neutrophils Percent 11 % (3-5); Basophils Percent Manual 1 % (0-2); Eosinophils Absolute Manual 0.2 X10*3/uL (0.0-0.4); Eosinophils Percent Manual 4 % (0-4); Lymphocytes Absolute Manual 2.6 X10*3/uL (1.2-4.9); Lymphocytes Percent Manual 62 % (20-40); Monocytes Absolute Manual 0.3 X10*3/uL (0.1-1.2); Monocytes Percent Manual 8 % (2-11); Neutrophils Absolute Manual 1.0 X10*3/uL (2.0-8.3)
[2025-03-30 16:46] LABS: Burr Cells 1+ (0-2) /OIF; RBC Morphology NOTED
[2025-03-30 17:56] VITALS: BP 117/78; PULSE 72; RESP 16; TEMP 37.1; O2SAT 100
== END 2025-03-30 18:02 | disposition home or self-care (01) ==
PROVIDERS: Emergency Medicine; Emergency Provider Emergency Medicine Emergency Medical Services; PCP Family Medicine
DX: R10.24 Suprapubic pain (principal); R11.2 Nausea with vomiting, unspecified; C25.9 Malignant neoplasm of pancreas, unspecified; I10 Essential (primary) hypertension; Z79.891 Long term (current) use of opiate analgesic; Z88.0 Allergy status to penicillin
CPT/HCPCS: 36415; 80053; 81003; 83690; 85007; 85025; 85027; 96361; 96374; 96375; 99284; J1171; J2405; J7120

== ENCOUNTER 2025-03-31 15:13 | Emergency (ER) | payer OTHER, SELFPAY ==
--- OUTSIDE RECORDS SUMMARY | 2025-03-30 14:00 | XMS_ITS | Encounter Summary ---
Author Organization [employer] Address [address] [place] [address] Care Team Providers Care Barn Manager Name Role Phone Emilie Davis MD Primary Care Provider [phone] Orozcoaugust Unavailable Fred Castanon Unavailable Ele Mar MD Unavailable [phone] Reason for Visit * Reason Comments sick Encounter Details Date Type Department Care Team ([facility] Contact Info) Description 03/30/2025 2:00 PM EST Office Visit [facility] MEDICINE [address] [place] [address] Vitaliy Martinez MD [address] [place] [address] Abdominal pain of multiple sites (Primary Dx) Social History Tobacco Use Types Packs/Day Years Used Date Smoking Tobacco: Never Passive Smoke Exposure: Never Smokeless Tobacco: Never Alcohol Answer Date Recorded How often do you have a drink containing alcohol ? 0 03/30/2025 How many drinks containing a lcohol do you have on a typical day when you are drinking? 0 03/30/2025 How often do you have six or more drinks on one occasion? 0 03/30/2025 Depression Answer Date Recorded Patient Health Questionnaire-9 [...] Industry Job Start Date Job End Date Route [employer] Not on file Not on file Not on file documented as of this encounter Last Filed Vital Signs Vital Sign Reading Time Taken Comments Blood Pressure 103/80 03/30/2025 1:59 PM EST Pulse 90 03/30/2025 1:59 PM EST Temperature 36.7 C (98.1 F) 03/30/2025 1:59 PM EST Respiratory Rate 20 03/30/2025 1:59 PM EST Oxygen Saturation 98% 03/30/2025 1:59 PM EST Inhaled Oxygen Concentration - - Weight 43.5 kg (95 lb 12.8 oz) 03/30/2025 1:59 P M EST Height 165.1 cm (5' 5 ) 03/30/2025 1:59 PM EST Body Mass Index 15.94 03/30/2025 1:59 PM EST documented in this encounter Progress Notes * Vitaliy White MD - 03/30/2025 2:00 PM EST SUBJECTIVE Harriet Roberson is a 55 y.o. adult who presents for sick. Deloris Roberson, 55 years Acute Lower Abdominal Pain - Onset of severe lower abdominal pain rated 10/10, unable to sleep due to pain - Pain worsens with eating or drinking liquids - Reports diarrhea, with some nausea that improved after lying down - Denies vomiting - Denies fever - No blood noted in diarrhea History of Cancer and Chemotherapy - History of cancer, currently undergoing chemotherapy - Recent hospitalization for similar symptoms, during which was kept NPO and received IV fluids andmedications HPI Review of Systems Constitutional: Negative for fever. HENT: Negative for sore throat. Respiratory: Negative for cough and shortness of breath. Cardiovascular: Negative for chest pain. Gastrointestinal: Positive for abdominal pain, diarrhea and nausea. Neurological: Negative for headaches. Allergies[1] OBJECTIVE Vitals: 03/30/25 1359 BP: 103/80 BP Location: Left arm Patient Position: Sitting BP Cuff Size: Adult Pulse: 90 Resp: 20 Temp: 98.1 ??F (36.7 ??C) TempSrc: Oral SpO2: 98% Weight: 95 lb 12.8 oz (43.5 kg) Height: 5' 5 (1.651 m) Physical Exam Vitals reviewed. Constitutional: Appearance: Normal appearance. HENT: Head: Normocephalic and atraumatic. Right Ear: External ear normal. Left Ear: External ear normal. Nose: Nose normal. Mouth/Throat: Mouth: Mucous membranes are moist. Eyes: Conjunctiva/sclera: Conjunctivae normal. Cardiovascular: Rate and Rhythm: Normal rate and regular rhythm. Pulmonary: Effort: Pulmonary effort is normal. Breath sounds: Normal breath sounds. Abdominal: General: Abdomen is flat. Bowel sounds are increased. Palpations: Abdomen is soft. Tenderness: There is abdominal tenderness in the right lower quadrant, periumbilical area, suprapubic area and left upper quadrant. There is rebound. Skin: General: Skin is warm. Neurological: Mental Status: He is alert. Mental status is at baseline. Assessment/Plan pt here with c/o 10/10 acute onset of abdominal pain and diarrhea in the context of chemotherapy and immunosuppression: - Acute abdomen suspected, differential diagnosis includes infection and diverticulitis. Concern for serious underlying pathology due to severe pain (10/10), diarrhea, and immunosuppressed state fromchemotherapy. - Discussed with patient at length. Need for urgent abdominal CT scan and laboratory tests to evaluate for infection or other causes. Recommended immediate transfer to hospital via ambulance for expedited evaluation and management. Advised intravenous fluids and stronger analgesia to manage pain and prevent complications related to inability to tolerate oral intake. Pt agreable Problem List Items Addressed This Visit Abdominal pain of multiple sites - Primary This note was drafted using Ambient (AI) technology. The patient/patient's guardian has been informed and has consented to the use of this technology: Yes Future Appointments Date Time Provider Department Center 03/31/2025 10:15 AM Emilie Davis MD MEDICINE [facility] 06/04/2025 3:00 PM Merissa Donis OD VISION [facility] [1] Allergies Allergen Reactions Penicillins Anaphylaxis and Rash Sumatriptan documented in this encounter Plan of Treatment Upcoming Encounters Date Type Department Care Team (Late st Contact Info) Description 06/04/2025 3:00 PM EST Office Visit [facility] OPTOMETRY [address] [place] [address] Merissa Donis OD [address] [place] [address] documented as of this encounter Visit Diagnoses Diagnosis Abdominal pain of multiple sites- Primary documented in this encounter Additional Health Concerns Assessment Noted Time PHQ-9 Depression Total Score: 9 03/03/20 25 4:53 PM EDT documented as of this encounter Care Teams Barn Manager Relationship Specialty Start Date End Date Emilie Davis MD [address] [place] [address] PCP - General Family Medicine 05/13/18August [address] [place] [id number] Gastroenterology 05/26/24 Fred Castanon [address] [place] [id number] Cardiology 07/21/24 Ele Mar MD [address] [place] [address] Hematology and Oncology 02/22/25 Marina Brown MD Rheumatology 02/10/25 Costa Miller MD Attending Hepatobiliary & Pancreatic Surgeon Division of Surgical Oncology Surgical Oncology 03/11/25 documented as of this encounter
--- NOTE | ~2025-03-31 | CT_ITS ---
CLINICAL HISTORY: abdominal pain CT abdomen and pelvis with contrast Comparison: CT/REG/SR - CT ABDOMEN PELVIS W IV CON - 02/18/25 19:33 EDT MR - MR ABDOMEN WO/W CON - 01/19/25 10:[address]/REG/CO/SR - CT ABDOMEN PELVIS WITH IV CONTRAST - 03/22/2025 01:03 PM EST Findings: LIMITED CHEST: Scattered calcified granulomas. LIVER: Small hypoattenuating lesions, too small to characterize however may represent cysts. BILIARY: Cholecystectomy. PANCREAS: Isoattenuating pancreatic uncinate process mass measuring 2.3 x 1.2 cm. Main pancreatic duct measures 2 mm. SPLEEN: No splenomegaly. KIDNEYS: No hydronephrosis or radiopaque stone. ADRENALS: No nodule. VASCULAR: No aneurysm. RETROPERITONEUM: No lymphadenopathy or mass. BOWEL/MESENTERY: No evidence of obstruction. Sigmoid colonic wall thickening with adjacent diverticula. No organized fluid collection. Normal appendix. ABDOMINAL WALL: No mass or significant abnormality. URINARY BLADDER: No focal wall thickening. PELVIC NODES: No pelvic lymphadenopathy. PELVIC ORGANS: Normal for age. BONES: No acute fracture. OTHER: Negative. IMPRESSION: Acute sigmoid diverticulitis. No abscess or free air. Pancreatic uncinate process mass measuring 2.3 cm on this exam. This is suspicious for malignancy. This document has been electronically signed by: Janessa Woods MD on 03/31/2025 19:21:33
--- OUTSIDE RECORDS SUMMARY | 2025-03-31 10:15 | XMS_ITS | Encounter Summary ---
Author Organization [employer] Address [address] [place] [address] Care Team Providers Care Electronics Inspector Name Role Phone Emilie Davis MD Primary Care Provider [phone] Orozco, August Unavailable Fred Castanon Unavailable Ele Mar MD Unavailable [phone] Encounter Details Date Type Department Care Team (Latest Contact Info) Description 03/31/2025 10:15 AM EST Telemedicine [facility] [address] [place] [address] [phone] Emilie Davis MD [address] [place], [place] [phone] Pancreatic adenocarcinoma (CMS/HCC) (HCC) (Primary Dx); Dietary counseling; Exercise counseling; Underweight; Primary insomnia Social History Tobacco Use Types Packs/Day Years [...] the past 12 months, has t he [employer], gas, oil or water company threatened to [...] 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 male with past medical history hypertension, gerd, pancreatitis, gender dysphoria and newly diagnosed adenocarcinoma of the pancrease who was contacted for follow up on his pancreatic cancer. Chemotherapy and diverticulosis - Started chemotherapy prior to this encounter - Developed diverticulosis and will finish antibiotics before resuming chemotherapy - Reports pain and has been prescribed medication for pain management by Dr. Kirkpatrick Sleep disturbance - Reports ongoing difficulty sleeping - Previously tried trazodone and lorazepam for sleep, but trazodone did not help - States that lorazepam was used for anxiety and sleep, but effectiveness for sleep not specified - Reports that medication prescribed for sleep by psychiatrist did not help - Agrees to try Seroquel 50mg 1-2 tabs po at bedtime for insominia Psychiatric history - Has a psychiatrist and has previously been prescribed medication for depression and sleep - Reports depression and sleep issues prior to this encounter SH: no tobacco, EtOH ore recreational drugs. He lives with is son, grand son (age 4), has supportive partner and sister. Review of Systems Constitutional: Positive for unexpected weight change. Negative for fever. Gastrointestinal: Positive for constipation. Negative for abdominal pain and nausea. Psychiatric/Behavioral: Positive for sleep disturbance. The patient is nervous/anxious. Assessment & Plan Pancreatic adenocarcinoma (CMS/HCC) (HCC) - Diagnosed with pancreatic adenocarcinoma in January 2025. He presented with symptoms of chronicdysphagia and abdominal pain -MRI abdomen on 01/2025 for acute pancreatitis revealed hypoenhancing solid mass measuring 2.5 x 2.7cm in the pancreatic head/uncinate process which was compressing the distal CBD and causing moderate to severe stenosis. Upstream extrahepatic and intrahepatic ducts were mildly dilated. Status post cholecystectomy. This was read as concerning for malignancy. ERCP and tissue sampling was recommended. -Patient underwent endoscopic ultrasound and biopsy of this mass at [facility] on 02/18/2025. FNA of pancreatic head mass from 02/18/2025 revealed adenocarcinoma. -CT abdomen/pelvis with contrast on 02/18/2025 shows 2.7 x 1.6 cm mass near the head of pancreas/uncinate process that may be part of pancreas or a large peripancreatic lymph node resulting in mild intrahepatic biliary tree dilatation and severe dilatation of the common bile duct which measures 1.7 cm. -Staging CT chest with contrast performed at [facility] on 02/23/2025 showed no evidence of metastaticdisease in chest. Mild coronary artery calcifications, calcified granulomas with soft tissue nodules unchanged since 2018 and considered benign. -Clinical stage T2 N0 -Seen by Dr. Jj oncologist 02/25/25 where she discussed role of preoperative or neoadjuvant chemotherapy for downsizing tumor. He was referred to [facility] surgical Oncology but they did not take his insurance so he was referred to [facility] . -He received his portacath Chemotherapy with FOLFIRINOX regimen will be discussed. -Family history of breast cancer and personal history of pancreatic cancer. BRCA1 and 2 and 40 genepanel sent to [facility]. -Nutrition consult has been placed. -Note for surgical oncologist 03/09/25 Dr. Costa Miller MD Attending Hepatobiliary & Pancreatic Surgeon Division of Surgical Oncology [facility] resectable pancreatic adenocarcinoma. He is young, and given the slight vein involvement, it makes sense to start with some chemotherapy to shrink the tumor away from the vein. Otherwise, he will need a Whipple with a possible small venous [place] [...] and pancreas protocol CT abdomen and pelvis Follow-uptiming: three months Dietary counseling Exercise counseling Underweight Nutrition via oncology Primary insomnia - Primary insomnia with poor response to trazodone and lorazepam. Seroquel (quetiapine) considered for sleep and mood. - Prescribed Seroquel 50 mg nightly for sleep. If ineffective, increase to 100 mg nightly. Scheduled follow-up appointment in one week to assess efficacy. Coordination with psychiatrist (Radha) for ongoing management. Option to use lorazepam once daily for anxiety as needed Orders: QUEtiapine (SEROquel) 50 MG tablet; Take 1 tablet (50 mg) by mouth at bedtime. No follow-ups on file. This note was drafted using Ambient (AI) technology. The patient/patient's guardian has been informed and has consented to the use of this technology: yes documented in this encounter Miscellaneous Notes * Assessment & Plan Note - Emilie Davis MD - 03/31/2025 10:15 AM EST Associated Problem(s): Pancreatic adenocarcinoma (CMS/HCC) (HCC) - Diagnosed with pancreatic adenocarcinoma in January 2025. He presented with symptoms of chronicdysphagia and abdominal pain -MRI abdomen on 01/2025 for acute pancreatitis revealed hypoenhancing solid mass measuring 2.5 x 2.7cm in the pancreatic head/uncinate process which was compressing the distal CBD and causing moderate to severe stenosis. Upstream extrahepatic and intrahepatic ducts were mildly dilated. Status post cholecystectomy. This was read as concerning for malignancy. ERCP and tissue sampling was recommended. -Patient underwent endoscopic ultrasound and biopsy of this mass at [facility] on 02/18/2025. FNA of pancreatic head mass from 02/18/2025 revealed adenocarcinoma. -CT abdomen/pelvis with contrast on 02/18/2025 shows 2.7 x 1.6 cm mass near the head of pancreas/uncinate process that may be part of pancreas or a large peripancreatic lymph node resulting in mild intrahepatic biliary tree dilatation and severe dilatation of the common bile duct which measures 1.7 cm. -Staging CT chest with contrast performed at [facility] on 02/23/2025 showed no evidence of metastaticdisease in chest. Mild coronary artery calcifications, calcified granulomas with soft tissue nodules unchanged since 2018 and considered benign. -Clinical stage T2 N0 -Seen by Dr. Jj oncologist 02/25/25 where she discussed role of preoperative or neoadjuvant chemotherapy for downsizing tumor. He was referred to [facility] surgical Oncology but they did not take his insurance so he was referred to [facility] . -He received his portacath Chemotherapy with FOLFIRINOX regimen will be discussed. -Family history of breast cancer and personal history of pancreatic cancer. BRCA1 and 2 and 40 genepanel sent to [facility]. -Nutrition consult has been placed. -Note for surgical oncologist 03/09/25 Dr. Costa Miller MD Attending Hepatobiliary & Pancreatic Surgeon Division of Surgical Oncology [facility] resectable pancreatic adenocarcinoma. He is young, and given the slight vein involvement, it makes sense to start with some chemotherapy to shrink the tumor away from the vein. Otherwise, he will need a Whipple with a possible small venous [place] so [...] and pancreas protocol CT abdomen and pelvis Follow-uptiming: three months documented in this encounter Plan of Treatment Upcoming Encounters Date Type Department Care Team (Late st Contact Info) Description 06/04/2025 3:00 PM EST Office Visit [facility] [address] [place] [address] Gagandeep, Merissa, OD [address] [place] [address] documented as of this encounter Visit Diagnoses Diagnosis Pancreatic adenocarcinoma (CMS/HCC) (HCC)- Primary Malignant neoplasm of pancreas, part unspecified Dietary counseling Dietary surveillance and counseling Exercise counseling Underweight Primary insomnia Persistent disorder of initiating or maintaining sleep documented in this encounter Additional Health Concerns Assessment Noted Time PHQ-9 Depression Total Score: 9 03/03/20 25 4:53 PM EDT documented as of this encounter Care Teams Electronics Inspector Relationship Specialty Start Date End Date Emilie Davsi MD [address] [place] [address] PCP - General Family Medicine 05/13/18August [address] [place] [id number] Gastroenterology 05/26/24 Fred Castanon [address] [place] [phone] Cardiology 07/21/24 Ele Mar MD [address] [place] [address] Hematology and Oncology 02/22/25 Marina Brown MD Rheumatology 02/10/25 Costa Miller MD Attending Hepatobiliary & Pancreatic Surgeon Division of Surgical Oncology [facility] Surgical Oncology 03/11/25 documented as of this encounter
[2025-03-31 15:38] VITALS: BP 113/77; PULSE 71; RESP 16; TEMP 36.5; O2SAT 100; BMI 16.5
--- NOTE | 2025-03-31 16:26 | ED_ITS ---
HPI - General Adult General Chief complaint: Abdominal Pain Stated complaint: lower extremity pain Time Seen by Provider: 03/31/25 16:12 Source: patient Mode of arrival: ambulatory Limitations: no limitations History of Present Illness ED Provider: Dr. Cobb HPI narrative: 55-year-old female to male transgender history of pancreatic cancer on chemotherapy presented hospital today for lower abdominal pain. This has been going on for the past week or so. However the pain has been worsening. Patient went to the clinic for evaluation. They stopped his chemotherapy and give him antibiotic and pain medicine however patient stated that the pain persist therefore he was sent to the ER for further evaluation. Denies any dysuria. Related Data Home Medications ?Medication ?Instructions ?Recorded ?Confirmed cabotegravir 600 mg/3 mL (200 600 mg IM [id number] 02/1803/22/25 mg/mL) IM suspension,extended release (Apretude) bisacodyl 5 mg tablet,delayed 10 mg PO BEDTIME PRN Con stipation 03/22/25 03/22/25 release (Dulcolax (bisacodyl)) lidocaine 5 % topical ointment 1 appl topical BID PRN port a cath 03/22/25 03/22/25 lorazepam 0.5 mg tablet 0.5 mg PO BEDTIME PRN anxiet y 03/22/25 03/22/25 Previous Rx's ?Medication ?Instructions ?Recorded Oxygen Home Use #3 ea 09/24/24 magnesium oxide 400 mg (241.3 mg 400 mg PO BEDTIME 30 days #30 tabs 09/25/24 magnesium) tablet dexamethasone 4 mg tablet 4 mg PO BID #30 tabs 5 oxycodone 5 mg capsule 5 mg PO Q8H PRN Severe Pain (Scale 03/11/25 Score 7-10) #30 caps food supplemt, lactose-reduced 1 ea PO BID #48 ea 09/04 (Ensure oral liquid) ondansetron 8 mg disintegrating 8 mg PO Q8H PRN nausea and 03/25/25 tablet vomiting #20 tabs trazodone 50 mg tablet 50 mg PO BEDTIME PRN insomni a #30 03/25/25 tabs oxycodone 10 mg tablet 10 mg PO Q4H PRN pain #20 ta bs 03/30/25 ciprofloxacin HCl 500 mg tablet 500 mg PO Q12H 7 days #14 tabs 03/31/25 metronidazole 500 mg tablet 500 mg PO BID 5 days #10 t abs 03/31/25 Allergies Allergy/AdvReac Type Severity Reaction Status Date / Time black pepper Allergy Severe Anaphylaxis Verified 03/31/25 15:40 Penicillins (PENICILLINS) Allergy Intermediate HIVES,SWELL Verified 03/31/25 15:40 ING sumatriptan (SUMATRIPTAN) AdvReac Severe PT STATES Verified 03/31/25 15:40 HEART ATTACK berries Allergy Unknown Anaphylaxis Uncoded 03/30/25 15:02 Review of Systems 2 Review of Systems: Pertinent review of systems as mentioned in HPI. All other system otherwise negative. COUNTS INCLUDE 234 BEDS AT THE [facility] Past Medical History COUNTS INCLUDE 234 BEDS AT THE [facility] Narrative: Medical history as mentioned in HPI Medical History Elevated LFTs Pancreatic mass Acute pancreatitis Pancreatic mass Upper abdominal pain Erosive esophagitis Abdominal pain Sleep difficulties Vomiting LEE (dyspnea on exertion) Arthritis Occipital neuralgia of left side New onset headache Diverticulosis of colon Chronic, continuous use of opioids Chronic GERD Palpitations Hypotension History of palpitations Dysphagia Disc degeneration, lumbar Spondylosis of lumbar spine Depression Past heart attack Hyperlipemia Erosive osteoarthritis of hands, bilateral GERD (gastroesophageal reflux disease) Hypertension Surgical History History of cholecystectomy Hx of colonoscopy History of esophagogastroduodenoscopy (EGD) H/O bilateral mastectomy H/O: hysterectomy Family History Family History Mother Hypertension Breast cancer Maternal Grandmother Myocardial infarct Skin cancer Sister Heart problem Breast cancer Family/Other Esophageal cancer Social History Social History Household Members: None Housing: Apartment Are you a primary acute care surgeon to a significant other at home: No Do you presently have visiting nurse or other home services: No Alcohol intake: never Patient Tobacco Use Status: Former Tobacco user Second Hand Smoke Exposure: No Substance Use Type: Marijuana service: No Physical Exam ED Exam Exam: General: Pleasant, no distress, interacting appropriately appears cachectic Head: Normacephalic, atraumatic ENT: oral mucosa moist, neck supple, no tracheal deviation Cardiovascular: regular rate, regular rhythm, no murmurs, rubbing, gallops Respiratory: CTAB, no wheeze, rales, rhonchi Gastrointestinal: Soft, non distended, lower abdominal tenderness on palpation Extremities: No limb pain or swelling, no calf tenderness Neurological: Awake and alert, no facial droop noted Skin: Warm and dry Psychiatric: Appropriate mood and thoughts Vital Signs: Vital Signs - 24 hr 03/31/25 15:38 03/31/25 17:54 03/31/25 19:53 Temperature 97.7 F 98 F 98.7 F Pulse Rate 71 67 75 Respiratory Rate 16 16 12 Blood Pressure 113/77 121/71 98/62 Pulse Oximetry 100 96 100 Oxygen Delivery Method Room Air Room Air Room Air 03/31/25 22:17 Temperature 98.7 F Pulse Rate 75 Respiratory Rate 12 Blood Pressure 98/62 Pulse Oximetry 100 Oxygen Delivery Method Room Air BMI result Body Mass Index 16.5 Medications Administered Discontinued Medications Generic Name Dose Route Start Last Admin Trade Name Freq PRN Reason Stop Dose Admin Hydromorphone HCl 0.5 mg 03/31/25 17:05 03/31/25 17:25 Hydromorphone Hcl 0.5 Mg/0.5 Ml Syringe IVPUSH 03/31/25 17:06 0.5 mg ONCE ONE Administration Protocol Lactated Ringer's 1,000 mls @ 999 mls/hr 03/31/25 17:15 03/31/25 20:14 Lr IV 03/31/25 18:15 Infused .Q1H1M KARLI Infusion Metronidazole 500 mg in 100 mls @ 100 mls/hr 03/31/25 17:58 03/31/25 20:09 Flagyl IV 03/31/25 18:57 Infused ONCE ONE Infusion Levofloxacin 750 mg in 150 mls @ 100 mls/hr 03/31/25 17:58 03/31/25 21:50 Levaquin IV 03/31/25 19:27 Infused ONCE ONE Infusion Iohexol 100 ml 03/31/25 18:19 03/31/25 18:19 Iohexol 350 Mg/Ml 100 Ml Infus..Btl IV 03/31/25 18:20 85 ml ONCE ONE Administration Medical Decision Making Medical Decision Making MDM Narrative: 55-year-old female to male transgender presented hospital today for lower abdominal pain. History of pancreatic cancer currently on chemotherapy. We will plan to give patient some IV Zofran, IV Dilaudid for pain control. CT imaging will be ordered. We will screen patient for sepsis including a CBC lactic acid blood cultures CMP. Patient states he does have history of diverticulitis in the past. We will plan to cover patient with IV Levaquin and IV Flagyl for antibiotic coverage. No sign of leukocytosis no elevated lactic acid. Patient's imaging does show signs of diverticulitis. We will plan to discharge patient. Patient's pain is controlled at this time. Patient is eating at bedside. Patient does have oxycodone at home for pain control. We will plan to start patient on ciprofloxacin and Flagyl antibiotic course for diverticulitis. Patient is allergic to penicillin. The patient is agreeable to this plan. lpn rn was used for this encounter. All questions were addressed. Differential Diagnosis Differential Diagnoses: The differential diagnosis associated with the presentation includes Diverticulitis, colitis, pancreatitis, pancreatic mass Lab Data MDM Lab Attestation statement: I reviewed the patient's lab results. 03/31/25 17:24 03/31/25 17:24 Labs: Lab Results 03/31/25 Range/Units 17:24 WBC 4.9 (4.8-10.8) X10*3/uL RBC 3.92 L (4.20-5.50) X10*6/uL Hgb 11.4 L (12.0-16.0) g/dl Hct 33.9 L (37.0-47.0) % MCV 86.5 (80.0-98.0) fL MCH 29.1 (27.0-33.0) pg MCHC 33.6 (31.0-35.0) g/dl RDW 13.2 (11.0-16.0) % Plt Count 266 (160-400) X10*3/uL MPV 8.8 L (9.4-12.3) fL Immature Gran % (Auto) Cancelled Neut % (Auto) Cancelled Lymph % (Auto) Cancelled Boundary % (Auto) Cancelled Eos % (Auto) Cancelled Baso % (Auto) Cancelled Lymph # (Auto) Cancelled Boundary # (Auto) Cancelled Eos # (Auto) Cancelled Baso # (Auto) Cancelled Abs Immat Gran (auto) Cancelled Absolute Neuts (auto) Cancelled Absolute Nucleated RBC 0.000 (0.0-0.012) X10*3/uL Nucleated RBC % (auto) 0.0 (0.0-0.2) /100WBC Neutrophils % (Manual) 13 L (45-73) % Band Neutrophils % 9 H (3-5) % Lymphocytes % (Manual) 63 H (20-40) % Atypical Lymphs % (Man) 3 (0-6) % Monocytes % (Manual) 11 (2-11) % Eosinophils % (Manual) 1 (0-4) % Abs Neuts (Manual) 1.1 L (2.0-8.3) X10*3/uL Lymphocytes # (Manual) 3.1 (1.2-4.9) X10*3/uL Atyp Lymphs # (Manual) 0.1 x10*3/uL Monocytes # (Manual) 0.5 (0.1-1.2) X10*3/uL Platelet Estimate NORMAL (NORMAL) Plt Morphology Comment NORMAL RBC Morphology NOTED Olga Cells 1+ (0-2) /OIF Smear Tech's Comments MANUAL DIFF Sodium 138 (135-145) mmol/L Potassium 3.8 (3.3-5.1) mmol/L Chloride 103 (96-108) mmol/L Carbon Dioxide 25 (22-29) mmol/L Anion Gap 14 (12-20) BUN 6 L (9-16) mg/dL Creatinine 0.59 (0.5-1.4) mg/dL Estim Creat Clear Calc 75.4 Estimated GFR > 60 Random Glucose 85 (60-115) mg/dL Lactic Acid 0.7 (0.5-2.0) mmol/L Calcium 8.8 (8.4-10.2) mg/dL Total Bilirubin 0.2 (0.0-1.0) mg/dL AST 15 (5-31) U/L ALT 6 (0-31) U/L Alkaline Phosphatase 71 (39-117) U/L Total Protein 6.3 L (6.5-8.0) g/dL Albumin 3.4 L (3.5-5.0) g/dL Lipase 25 (8-78) U/L Independent Interpretation I performed an independent interpretation of an: CT Scan Radiology Impression Discussion of test interpretation with radiology: I have reviewed the radiologist's reading. Prescription Management I considered prescription management with: Antibiotic Chronic Conditions Pancreatic cancer Discharge Plan Discharge Clinical Impression: Diverticulitis Patient Disposition: Home, Self-Care Instructions: Diverticulitis (ED) Prescriptions: New ciprofloxacin HCl 500 mg tablet 500 mg PO Q12H 7 Days Qty: 14 0RF metronidazole 500 mg tablet 500 mg PO BID 5 Days Qty: 10 0RF No Action cabotegravir [Apretude] 600 mg/3 mL (200 mg/mL) suspension,extended release 600 mg IM [id number] oxycodone 10 mg tablet 10 mg PO Q4H PRN (Reason: pain) Qty: 20 0RF Rx Instructions: Partial Fill upon patient request. oxycodone 5 mg Capsule 5 mg PO Q8H PRN (Reason: Severe Pain (Scale Score 7-10)) Qty: 30 0RF Rx Instructions: Partial Fill upon patient request. dexamethasone 4 mg Tablet 4 mg PO BID Qty: 30 0RF Rx Instructions: Take 1 tablet twice a day day 2 and 3 after chemotherapy; gets chemo treatment Wednesdays-Fridays (takes on & Saturday BID). Ensure Liquid 1 ea PO BID Qty: 48 3RF lorazepam 0.5 mg tablet 0.5 mg PO BEDTIME PRN (Reason: anxiety) bisacodyl [Dulcolax (bisacodyl)] 5 mg tablet,delayed release (DR/EC) 10 mg PO BEDTIME PRN (Reason: Constipation) lidocaine 5 % ointment 1 appl topical BID PRN (Reason: port a cath) ondansetron 8 mg tablet,disintegrating 8 mg PO Q8H PRN (Reason: nausea and vomiting ) Qty: 20 0RF trazodone 50 mg tablet 50 mg PO BEDTIME PRN (Reason: insomnia) Qty: 30 0RF (DME) Oxygen Home Use Kit See Rx Instructions .Route Qty: 3 0RF Rx Instructions: Start home O2 at 15-25 L/min via non-rebreather facemask x's 15-20 minutes at onset of cluster headache attack. Patient will require both M tanks and E tanks. magnesium oxide 400 mg (241.3 mg magnesium) tablet 400 mg PO BEDTIME 30 Days Qty: 30 6RF Rx Instructions: may hold for loose stools Interventions: ED Discharge Assessment Last Done: 03/31/25 22:17 Discharge Date/Time: 03/31/25 22:21 Print Language: Argentine
[2025-03-31] MEDS: Lactated Ringers 1,000 ML 999 ML IV (17:25)
--- NOTE | 2025-03-31 17:26 | PC.NURSE ---
patient a&ox3, port accessed prior to arrival to the ed, labs drawn, ivf hung, pt medicated for 10/10 pain.
[2025-03-31 17:40] LABS: Hematocrit 33.9 % (37.0-47.0); Hemoglobin 11.4 g/dl (12.0-16.0); Mean Corpuscular HGB Conc 33.6 g/dl (31.0-35.0); Mean Corpuscular Hemoglobin 29.1 pg (27.0-33.0); Mean Corpuscular Volume 86.5 fL (80.0-98.0); NRBC Abs Auto 0.000 X10*3/uL (0.0-0.012); NRBC Pct Auto 0.0 /100WBC (0.0-0.2); Platelet Count 266 X10*3/uL (160-400); Red Blood Count 3.92 X10*6/uL (4.20-5.50); White Blood Count 4.9 X10*3/uL (4.8-10.8)
[2025-03-31 17:54] VITALS: BP 121/71; PULSE 67; RESP 16; TEMP 36.6; O2SAT 96
[2025-03-31 18:03] LABS: Alanine Aminotransferase 6 U/L (0-31); Albumin Level 3.4 g/dL (3.5-5.0); Alkaline Phosphatase 71 U/L (39-117); Anion Gap 14 (12-20); Aspartate Amino Transferase 15 U/L (5-31); Blood Urea Nitrogen 6 mg/dL (9-16); Calcium 8.8 mg/dL (8.4-10.2); Carbon Dioxide 25 mmol/L (22-29); Chloride 103 mmol/L (96-108); Creatinine Clr Calc Pharmacy 75.4; Estimated Glomerular Filt Rate > 60; Lipase 25 U/L (8-78); Potassium 3.8 mmol/L (3.3-5.1); Sodium 138 mmol/L (135-145); Total Protein 6.3 g/dL (6.5-8.0)
[2025-03-31] MEDS: iohexoL 350 MG/ML 100 ML INFUS..BTL IV (18:19)
[2025-03-31 18:47] LABS: Atypical Lymph Absolute Manual 0.1 x10*3/uL; Atypical Lymphs Percent Manual 3 % (0-6); Band Neutrophils Percent 9 % (3-5); Eosinophils Percent Manual 1 % (0-4); Lymphocytes Absolute Manual 3.1 X10*3/uL (1.2-4.9); Lymphocytes Percent Manual 63 % (20-40); Monocytes Absolute Manual 0.5 X10*3/uL (0.1-1.2); Monocytes Percent Manual 11 % (2-11); Neutrophils Absolute Manual 1.1 X10*3/uL (2.0-8.3); Neutrophils Percent Manual 13 % (45-73)
[2025-03-31 18:50] LABS: Burr Cells 1+ (0-2) /OIF; RBC Morphology NOTED
[2025-03-31] MEDS: metroNIDAZOLE/NS 500 MG/100 ML PIGGYBACK 100 MG IV (19:08)
--- NOTE | 2025-03-31 19:11 | PC.NURSE ---
pts LR continues to run slowly, iv abx started per order
--- NOTE | 2025-03-31 19:52 | PC.NURSE ---
This RN assumed pt care @ 1900. Pt a&ox4, no signs of distress. Pt denies pain at this time Plan of care ongoing.
[2025-03-31 19:53] VITALS: BP 98/62; PULSE 75; RESP 12; TEMP 37.1; O2SAT 100
[2025-03-31 22:17] VITALS: BP 98/62; PULSE 75; RESP 12; TEMP 37.1; O2SAT 100
--- OUTSIDE RECORDS SUMMARY | 2025-04-01 04:42 | XMS_ITS | Encounter Summary ---
Author Organization [employer] Address [address] [place] [address] Care Team Providers Care Confectionery Laboratory Manager Name Role Phone Emilie Davis MD Primary Care Provider [phone] Morales Echavarria Unavailable Unavailable August Unavailable Fred Castanon Unavailable Ele Mar MD Unavailable [phone] Reason for Visit * Reason Onset Date Comments Hospital Follow-up 02/22/2025 Encounter Details Date Type Department Care Team (Late st Contact Info) Description 02/22/2025 Telephone [facility] MEDICINE [address] [place] [address] Emilie Davis MD [address] [place], [place] [phone] Hospital Follow-up Social History Tobacco Use Types [...] 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 Hospital: [facility] [place] Date of admission: 02/18 Discharge date: 02/21 Diagnosed: pt did a biopsy and they injured his pancreas *Send message to [place] Clinical Care Coordinators Contact pt at [phone] documented in this encounter Plan of Treatment Upcoming Encounters Date Type Department Care Team (Late st Contact Info) Description 06/04/2025 3:00 PM EST Office Visit [facility] OPTOMETRY [address] [place] [address] Merissa Donis, OD [address] [place] [address] documented as of this encounter Visit Diagnoses Not on filedocumented in this encounter Additional Health Concerns Assessment Noted Time PHQ-9 Depression Total Score: 3 04/30/20 23 9:17 AM EST documented as of this encounter Care Teams Confectionery Laboratory Manager Relationship Specialty Start Date End Date Emilie Davis MD [address] [place] [address] PCP - General Family Medicine 05/13/18 Morales Echavarria FNP [address] [place] [address] Nurse Practitioner Family Medicine 04/16/23 03/10/[facility] [address] [address] Gastroenterology 05/26/24 Fred Castanon [address] [place] [address] Cardiology 07/21/24 Ele Mar MD [address] [place] [address] Hematology and Oncology 02/22/25 Marina Brown MD Rheumatology 02/10/25 Costa Miller MD Attending Hepatobiliary & Pancreatic Surgeon Division of Surgical Oncology [facility] Surgical Oncology 03/11/25 documented as of this encounter
--- OUTSIDE RECORDS SUMMARY | 2025-04-01 04:42 | XMS_ITS | Encounter Summary ---
Author Organization [employer] Address [address] [place] [address] [address] [place] [address] Care Team Providers Care Finance Consultant Name Role Phone Emilie Davis MD Primary Care Provider [phone] Morales Echavarria Unavailable Unavailable August Unavailable Fred Castanon Unavailable Ele Mar MD Unavailable [phone] Reason for Referral * Consultation (Urgent) - Closed Specialty Diagnoses / Procedures Referred By Contac t Referred To Contact Behavioral Health Diagnoses Depression, unspecified depression type Emilie Davis MD [address] [place] [address] Phone: tel: fax: Referral ID Status Reason Start Date Expiration Date V isits Requested Visits Authorized [id number] Closed Specialty Services Required 02/05/2025 02/05/2026 1 1 Encounter Details Date Type Department Care Team (Late st Contact Info) Description 02/05/2025 Orders Only [facility] MEDICINE [address] [place] [phone] Emilie Davis MD [address] [place] [address] [phone] Depression, unspecified depression type (Primary Dx) Social [...] 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 Not on file Not on file documented as of this encounter Plan of Treatment Upcoming Encounters Date Type Department Care Team (Late st Contact Info) Description 06/04/2025 3:00 PM EST Office Visit [facility] OPTOMETRY [address] [place] [address] Merissa Donis, OD [address] [place] [address] Scheduled Referrals Name Type Priority Associated Diagnoses [...] as of this encounter Care Teams Finance Consultant Relationship Specialty Start Date End Date Emilie Davis MD [address] [place] [address] PCP - General Family Medicine 05/13/18 Morales Echavarria FNP [address] [place] [address] Nurse Practitioner Family Medicine 04/16/23 03/10/25Orozco, August [address] [place] [address] Gastroenterology 05/26/24 Fred Castanon [address] [place] [address] Cardiology 07/21/24 Ele Mar MD [address] [place] [address] Hematology and Oncology 02/22/25 Marina Brown MD Rheumatology 02/10/25 Costa Miller MD Attending Hepatobiliary & Pancreatic Surgeon Division of Surgical Oncology [facility] Surgical Oncology 03/11/25 documented as of this encounter
--- OUTSIDE RECORDS SUMMARY | 2025-04-01 04:42 | XMS_ITS | Encounter Summary ---
Author Organization [employer] Address [address] [place] [address] [address] [place] [address] Care Team Providers Care Entry Level Software Engineer Name Role Phone Emilie Davis MD Primary Care Provider [phone] Morales Echavarria Unavailable Unavailable August Unavailable Fred Castanon Unavailable Ele Mar MD Unavailable [phone] Encounter Details Date Type Department Care Team (Late st Contact Info) Description 02/19/2025 Orders Only [facility] [address] [place], [place] [phone] Provider, MD Sammy Social History Tobacco Use [...] 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 on file Not on file documented as of this encounter Plan of Treatment Upcoming Encounters Date Type Department Care Team (Late st Contact Info) Description 06/04/2025 3:00 PM EST Office Visit [facility] OPTOMETRY [address] [place] [address] Gagandeep, Merissa, OD [address] [place] [address] documented as of this encounter Procedures Procedure [...] documented as of this encounter Care Teams Entry Level Software Engineer Relationship Specialty Start Date End Date Emilie Davis MD [address] [place] [address] PCP - General Family Medicine 05/13/18 Morales Echavarria FNP [address] [place] [address] Nurse Practitioner Family Medicine 04/16/23 03/10/25 Aida Orozco [address] [place] [address] Gastroenterology 05/26/24 Fred Castanon [address] [place] [address] Cardiology 07/21/24 Ele Mar MD [address] [place] [address] Hematology and Oncology 02/22/25 Marina Brown MD Rheumatology 02/10/25 Costa Miller MD Attending Hepatobiliary & Pancreatic Surgeon Division of Surgical Oncology [facility] Surgical Oncology 03/11/25 documented as of this encounter
--- OUTSIDE RECORDS SUMMARY | 2025-04-01 04:42 | XMS_ITS | Encounter Summary ---
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 on file Not on file documented as of this encounter Plan of Treatment Upcoming Encounters Date Type Department Care Team (Late st Contact Info) Description 06/04/2025 3:00 PM EST Office Visit [facility] [address] [place] [address] Gagandeep, Merissa, OD [address] [place] [address] documented as of this encounter Procedures Procedure Name Priority Date/Time Associated Diagnosis Comments CT ABDOMEN PELVIS W CONTRAST Routine 03/31/2025 7:21 PM EST SLIDE REVIEW Routine 03/31/2025 5:24 PM EST COMPLETE BLOOD COUNT MAN DIF Routine 03/31/2025 5:24 PM EST CBC WITH AUTO DIFFERENTIAL Routine 03/31/2025 5:24 PM EST LIPASE Routine 03/31/2025 5:24 PM EST LACTIC ACID Routine 03/31/2025 5:24 PM EST COMPREHENSIVE METABOLIC PANEL Routine 03/31/2025 5:24 PM EST documented in this encounter Results * CT Abdomen Pelvis w/ Contrast (03/31/2025 7:21 PM EST) Anatomical Region Laterality Modality Body, Pelvis, Abdomen Computed T omography 03/31/2025 7:21 PM EST Narrative 03/31/2025 7:22 PM EST [place] [address] CT Scan Report Signed Patient: Harriet Valdez MR#: [id number] : 1970 Acct:[id number] Age/Sex: 55 / F ADM Date: 03/31/25 Loc: .ED Attending Dr: Ordering Physician: Cheryl Cobb DO Date of Service: 03/31/25 Procedure(s): CT abdomen pelvis w IV con Accession Number(s): [id number] cc: Emilie Davis MD; Cheryl Cobb DO Report Number: [id number]: Total DLP = 551.00 mGy-cm Reason for Exam: abdominal pain CLINICAL HISTORY: abdominal pain CT abdomen and pelvis with contrast Comparison: CT/REG/SR - CT ABDOMEN PELVIS W IV CON - 02/18/25 19:33 EDT MR - MR ABDOMEN WO/W CON - 01/19/25 10:[address]/REG/NV/SR - CT ABDOMEN PELVIS WITH IV CONTRAST - 03/22/2025 01:03 PM EST Findings: LIMITED CHEST: Scattered calcified granulomas. LIVER: Small hypoattenuating lesions, too small to characterize however may represent cysts. BILIARY: Cholecystectomy. PANCREAS: Isoattenuating pancreatic uncinate process mass measuring 2.3 x 1.2 cm. Main pancreatic duct measures 2 mm. SPLEEN: No splenomegaly. KIDNEYS: No hydronephrosis or radiopaque stone. ADRENALS: No nodule. VASCULAR: No aneurysm. RETROPERITONEUM: No lymphadenopathy or mass. BOWEL/MESENTERY: No evidence of obstruction. Sigmoid colonic wall thickening with adjacent diverticula. No organized fluid collection. Normal appendix. ABDOMINAL WALL: No mass or significant abnormality. URINARY BLADDER: No focal wall thickening. PELVIC NODES: No pelvic lymphadenopathy. PELVIC ORGANS: Normal for age. BONES: No acute fracture. OTHER: Negative. IMPRESSION: Acute sigmoid diverticulitis. No abscess or free air. Pancreatic uncinate process mass measuring 2.3 cm on this exam. This is suspicious for malignancy. This document has been electronically signed by: Janessa Woods MD on 03/31/2025 19:21:33 Dictated By: Janessa Woods MD Signed By: <Electronically signed by Janessa Woods MD in OV> 03/31/251921 DD/ 20 TD/TT: 03/31/251920 Clinical Nurse Leader: Procedure Note Donotuseinterpreter, Image - 03/31/[address] [place] [address] [address] Scan Report Signed Patient: Harriet Valdez#: [id number] : 1970Acct:[id number] Age/Sex: 55 / FADM Date: 03/31/25 Loc: HO.ED Attending Dr: Ordering Physician: Cheryl Cobb DO Date of Service: 03/31/25 Procedure(s): CT abdomen pelvis w IV con Accession Number(s): [id number] cc: Emilie Davis MD; Cheryl Cobb DO Report Number: [id number]: Total DLP = 551.00 mGy-cm Reason for Exam: abdominal pain CLINICAL HISTORY: abdominal pain CT abdomen and pelvis with contrast Comparison: CT/REG/SR - CT ABDOMEN PELVIS W IV CON - 02/18/25 19:33 EDT MR - MR ABDOMEN WO/W CON - 01/19/25 10:[address]/REG/NV/SR - CT ABDOMEN PELVIS WITH IV CONTRAST - 03/22/2025 01:03 PM EST Findings: LIMITED CHEST: Scattered calcified granulomas. LIVER: Small hypoattenuating lesions, too small to characterize however may represent cysts. BILIARY: Cholecystectomy. PANCREAS: Isoattenuating pancreatic uncinate process mass measuring 2.3 x 1.2 cm. Main pancreatic duct measures 2 mm. SPLEEN: No splenomegaly. KIDNEYS: No hydronephrosis or radiopaque stone. ADRENALS: No nodule. VASCULAR: No aneurysm. RETROPERITONEUM: No lymphadenopathy or mass. BOWEL/MESENTERY: No evidence of obstruction. Sigmoid colonic wall thickening with adjacent diverticula. No organized fluid collection. Normal appendix. ABDOMINAL WALL: No mass or significant abnormality. URINARY BLADDER: No focal wall thickening. PELVIC NODES: No pelvic lymphadenopathy. PELVIC ORGANS: Normal for age. BONES: No acute fracture. OTHER: Negative. IMPRESSION: Acute sigmoid diverticulitis. No abscess or free air. Pancreatic uncinate process mass measuring 2.3 cm on this exam. This is suspicious for malignancy. This document has been electronically signed by: Janessa Woods MD on 03/31/2025 19:21:33 Dictated By: Janessa Woods MD Signed By: <Electronically signed by Janessa Woods MD in OV> 03/31/251921 DD/ 20 TD/TT: 03/31/251920 Clinical Nurse Leader: [facility] External Provider IMG CT PROCEDURES Final Result * Slide Review (03/31/2025 5:24 PM EST) Slide Review MANUAL DIFF [facility] 03/31/2025 5:24 PM EST 03/31/2025 5:35 PM EST Generic External Data Provider LAB BLOOD ORDERAB LES Final Result [facility] [address] [place] [phone] * (ABNORMAL) Complete Blood Count Manual Diff (03/31/2025 5:24 PM EST) White Blood Count 4.9 4.8 - 10.8 X10*3/uL [facility] Red Blood Count 3.92(L) 4.20 - 5.50 X10*6/uL [facility] Hemoglobin 11.4(L) 12.0 - 16.0 g/dl [facility] Hematocrit 33.9(L) 37.0 - 47.0 % [facility] Mean Corpuscular Volume 86.5 80.0 - 98.0 fL [facility] Mean Corpuscular Hemoglobin 29.1 27.0 - 33.0 pg [facility] Mean Corpuscular HGB Conc 33.6 31.0 - 35.0 g/dl [facility] Red Cell Distribution Width 13.2 11.0 - 16.0 % [facility] Platelet Count 266 160 - 400 X10*3/uL [facility] Mean Platelet Volume 8.8(L) 9.4 - 12.3 fL [facility] NRBC Pct Auto 0.0 0.0 - 0.2 /100WBC [facility] NRBC Abs Auto 0.000 0.0 - 0.012 X10*3/uL [facility] Neutrophils % Manual 13(L) 45 - 73 % [facility] Band Neutrophils Percent 9(H) 3 - 5 % [facility] Lymphocytes Percent Manual 63(H) 20 - 40 % [facility] Atypical Lymphs Percent Manual 3 0 - 6 % [facility] Monocytes Percent Manual 11 2 - 11 % [facility] EOSINOPHILS % MANUAL 1 0 - 4 % [facility] NEUTROPHILS ABSOLUTE MANUAL 1.1(L) 2.0 - 8.3 X10*3/uL [facility] LYMPHOCYTES ABSOLUTE MANUAL 3.1 1.2 - 4.9 X10*3/uL [facility] Atypical Lymph Absolute Manual 0.1 x10*3/uL [facility] MONOCYTES ABSOLUTE MANUAL 0.5 0.1 - 1.2 X10*3/uL [facility] Platelet Estimate NORMAL NORMAL [facility] Platelet Morphology Comment NORMAL [facility] RBC Morphology NOTED [facility] Gilberts Cells 1+ (0-2) /OIF [facility] 03/31/2025 5:24 PM EST 03/31/2025 5:35 PM EST us Generic External Data Provider LAB BLOOD ORDERAB LES Final Result [facility] [address] [place] [phone] * Lipase (03/31/2025 5:24 PM EST) Lipase 25 8 - 78 U/L [facility] 03/31/2025 5:24 PM EST 03/31/2025 5:35 PM EST us Generic External Data Provider LAB BLOOD ORDERAB LES Final Result [facility] [address] [place] [phone] * (ABNORMAL) Comprehensive Metabolic Panel (03/31/2025 5:24 PM EST) Sodium 138 135 - 145 mmol/L [facility] Potassium 3.8 3.3 - 5.1 mmol/L [facility] Chloride 103 96 - 108 mmol/L [facility] Carbon Dioxide 25 22 - 29 mmol/L [facility] Anion Gap 14 12 - 20 [facility] Urea Nitrogen (BUN) 6(L) 9 - 16 mg/dL [facility] Creatinine, Serum 0.59 0.5 - 1.4 mg/dL [facility] Creatinine Clr Calc Pharmacy 75.4 [facility] Comment:Provided height and weight: 165.1 cm,44.9 kg.eGFR (calculated from the MDRD study equation) and eCrCl(calculated from the Cockcroft-Gault equation) are based ondifferent parameters and may not yield comparable results.If eCrCl result is absurd, please check patient'sheight/weight. Estimated Glomerular Filt Rate >60 [facility] Comment:Chronic Kidney Disea se: Estimated GFR < 60 mL/min/[id number] Kidney Disease: Estimated GFR < 15 mL/min/1.73m2 Glucose 85 60 - 115 mg/dL [facility] Calcium 8.8 8.4 - 10.2 mg/dL [facility] Bilirubin, Total 0.2 0.0 - 1.0 mg/dL [facility] Aspartate Amino Transferase 15 5 - 31 U/L [facility] Alanine Aminotransferase 6 0 - 31 U/L [facility] Total Protein 6.3(L) 6.5 - 8.0 g/dL [facility] Albumin Level 3.4(L) 3.5 - 5.0 g/dL [facility] Alkaline Phosphatase 71 39 - 117 U/L [facility] 03/31/2025 5:24 PM EST 03/31/2025 5:35 PM EST Generic External Data Provider LAB BLOOD ORDERAB LES Final Result Performing Organization Address City/[facility]/ZIP Co de Phone Number [facility] [address] [place] [phone] * Lactic Acid (03/31/2025 5:24 PM EST) [facility] Lactic Acid 0.7 0.5 - 2.0 mmol/L [facility] 03/31/2025 5:24 PM EST 03/31/2025 5:35 PM EST Generic External Data Provider LAB BLOOD ORDERAB LES Final Result Performing Organization Address City/[facility]/ZIP Co de Phone Number [facility] [address] [place] [phone] * (ABNORMAL) CBC auto differential (03/31/2025 5:24 PM EST) White Blood Count 4.9 4.8 - 10.8 X10*3/uL [facility] Red Blood Count 3.92(L) 4.20 - 5.50 X10*6/uL [facility] Hemoglobin 11.4(L) 12.0 - 16.0 g/dl [facility] Hematocrit 33.9(L) 37.0 - 47.0 % [facility] Mean Corpuscular Volume 86.5 80.0 - 98.0 fL [facility] Mean Corpuscular Hemoglobin 29.1 27.0 - 33.0 pg [facility] Mean Corpuscular HGB Conc 33.6 31.0 - 35.0 g/dl [facility] Red Cell Distribution Width 13.2 11.0 - 16.0 % [facility] Platelet Count 266 160 - 400 X10*3/uL [facility] Mean Platelet Volume 8.8(L) 9.4 - 12.3 fL [facility] Neutrophils Percent Auto 23.3(L) 45 - 73 % [facility] Imm Gran Pct Auto 0.2 0.0 - 0.4 % [facility] Lymphocytes Percent Auto 48.7(H) 20 - 40 % [facility] Monocytes Percent Auto 24.6(H) 2 - 11 % [facility] Eosinophils Percent Auto 2.4 0 - 4 % [facility] Basophils Percent Auto 0.8 0 - 2 % [facility] NRBC Pct Auto 0.0 0.0 - 0.2 /100WBC [facility] Neutrophils Absolute Auto 1.1(L) 2.0 - 8.3 x10*3/uL [facility] Imm Gran Abs Auto 0.01 0.00 - 0.03 X10*3/uL [facility] Lymphocytes Absolute Auto 2.4 1.2 - 4.9 X10*3/uL [facility] Monocytes Absolute Auto 1.2 0.1 - 1.2 X10*3/uL [facility] Eosinophils Absolute Auto 0.1 0.0 - 0.4 X10*3/uL [facility] Basophils Absolute Auto 0.0 0.0 - 0.2 X10*3/uL [facility] NRBC Abs Auto 0.000 0.0 - 0.012 X10*3/uL [facility] 03/31/2025 5:24 PM EST 03/31/2025 5:35 PM EST us Generic External Data Provider LAB BLOOD ORDERAB LES Edited Result - Final [facility] [address] [place], [place] [phone] documented in this encounter Visit Diagnoses Not on filedocumented in this encounter Additional Health Concerns Assessment Noted Time PHQ-9 Depression Total Score: 9 03/03/20 25 4:53 PM EDT documented as of this encounter Care Teams Floor Press Operator Relationship Specialty Start Date End Date Emilie Davis MD [address] [place] [phone] PCP - General Family Medicine 05/13/[address] [place] [address] Gastroenterology 05/26/24 Fred Castanon [address] [place] [address] Cardiology 07/21/24 Ele Mar MD [address] [place] [address] Hematology and Oncology 02/22/25 Marina Brown MD Rheumatology 02/10/25 Costa Miller MD Attending Hepatobiliary & Pancreatic Surgeon Division of Surgical Oncology [facility] Surgical Oncology 03/11/25 documented as of this encounter
--- OUTSIDE RECORDS SUMMARY | 2025-04-01 04:42 | XMS_ITS | Encounter Summary ---
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 Not on file Not on file documented as of this encounter Plan of Treatment Upcoming Encounters Date Type Department Care Team (Late st Contact Info) Description 06/04/2025 3:00 PM EST Office Visit [facility] [address] [place] [address] Gagandeep, Merissa, OD [address] [place] [address] documented as of this encounter Visit Diagnoses Not on filedocumented in this encounter Additional Health Concerns Assessment Noted Time PHQ-9 Depression Total Score: 9 03/03/20 25 4:53 PM EDT documented as of this encounter Care Teams Partition Notcher Relationship Specialty Start Date End Date Emilie Davis MD [address] [place] [address] PCP - General Family Medicine 05/13/18August [address] [place] [address] Gastroenterology 05/26/24 Fred Castanon [address] [place] [address] Cardiology 07/21/24 Ele Mar MD [address] [place] [address] Hematology and Oncology 02/22/25 Marina Brown MD Rheumatology 02/10/25 Costa Miller MD Attending Hepatobiliary & Pancreatic Surgeon Division of Surgical Oncology [facility] Surgical Oncology 03/11/25 documented as of this encounter
--- OUTSIDE RECORDS SUMMARY | 2025-04-01 04:42 | XMS_ITS | Encounter Summary ---
Author Organization [employer] Address [address] [place] [address] Care Team Providers Care Gathering Worker Name Role Phone Emilie Davis MD Primary Care Provider [phone] Morales Echavarria Unavailable Unavailable August Unavailable Fred Castanon Unavailable Ele Mar MD Unavailable [phone] Encounter Details Date Type Department Care Team (Late st Contact Info) Description 03/25/2023 Orders Only [facility] [address] [place] [address] Emilie Davis MD [address] [place] [address] Social History Tobacco Use Types Packs/Day Years [...] EST Office Visit [facility] [address] [place] [address] Gagandeep, Merissa, OD [address] [place] [address] documented as of this encounter Visit Diagnoses Not on filedocumented in this encounter Additional Health Concerns Assessment Noted Time PHQ-9 Depression Total Score: 10 023 9:08 AM EDT documented as of this encounter Care Teams Gathering Worker Relationship Specialty Start Date End Date Emilie Davis MD [address] [place] [address] PCP - General Family Medicine 05/13/18 Morales Echavarria FNP [address] [place] [address] Nurse Practitioner Family Medicine 04/16/23 03/10/25 Pam August [address] [address] Gastroenterology 05/26/24 Fred Castanon [address] [place] [address] Cardiology 07/21/24 Ele Mar MD [address] [place] [address] Hematology and Oncology 02/22/25 Marina Brown MD Rheumatology 02/10/25 Costa Miller MD Attending Hepatobiliary & Pancreatic Surgeon Division of Surgical Oncology [facility] Surgical Oncology 03/11/25 documented as of this encounter
--- OUTSIDE RECORDS SUMMARY | 2025-04-01 04:42 | XMS_ITS | Encounter Summary ---
Author Organization [employer] Address [address] [facility] [address] [place] [address] Care Team Providers Care Melter Assistant Name Role Phone Emilie Davis MD Primary Care Provider [phone] August Unavailable Fred Castanon Unavailable Ele Mar MD Unavailable [phone] Reason for Visit * Reason Onset Date Comments chart prep 03/30/2025 Encounter Details Date Type Department Care Team ([facility] st Contact Info) Description 03/30/2025 Telephone [facility] [address] [place] [address] Emilie Davis MD [address] [place], [place] [phone] chart prep Social History Tobacco Use Types [...] the past 12 months, has t he [employer], gas, oil or water [employer] threatened to shut off services in your [...] 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 on file Not on file documented as of this encounter Miscellaneous Notes * Telephone Encounter - Christi Lee [place] - 03/30/2025 9:27 AM EST Chart Prep Labs: done Images: done Screenings: Colonoscopy Vaccines due: Covid Due, PCV20 Due, Flu Due, RSV in Pharmacy Due, and Shingles in pharmacy Due Referrals: Nutrition appointment pending Overdue care gaps: Disability and Oral Health documented in this encounter Plan of Treatment Upcoming Encounters Date Type Department Care Team (Late st Contact Info) Description 06/04/2025 3:00 PM EST Office Visit [facility] [address] [place] [address] Merissa Dnois, OD [address] [place] [address] documented as of this encounter Visit Diagnoses Not on filedocumented in this encounter Additional Health Concerns Assessment Noted Time PHQ-9 Depression Total Score: 9 03/03/20 25 4:53 PM EDT documented as of this encounter Care Teams Melter Assistant Relationship Specialty Start Date End Date Emilie Davis MD [address] [place] [address] PCP - General Family Medicine 05/13/[address] [place] [address] Gastroenterology 05/26/24 Fred Castanon [address] [place] [address] Cardiology 07/21/24 Ele Mar MD [address] [place] [address] Hematology and Oncology 02/22/25 Marina Brown MD Rheumatology 02/10/25 Costa Miller MD Attending Hepatobiliary & Pancreatic Surgeon Division of Surgical Oncology [facility] Surgical Oncology 03/11/25 documented as of this encounter
--- OUTSIDE RECORDS SUMMARY | 2025-04-01 04:42 | XMS_ITS | Encounter Summary ---
Author Organization [employer] Address [address] [facility] 7t [place] [address] Care Team Providers Care Drum Sealer Name Role Phone Emilie Davis MD Primary Care Provider [phone] August Unavailable Fred Castanon Unavailable Ele Mar MD Unavailable [phone] Reason for Visit * Reason Onset Date Comments Nurse Triage 03/30/2025 Encounter Details Date Type Department Care Team (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 Recently diagnosed with pancreatic CA. Most recently admitted to [facility] 03/22-03/25 s/p first chemo infusion with N/V and abdominal/ pain. Pt. Established with oncology in [place] and [facility]. Today, pt. Reports he has been in 02/19 abdominal pain x 2 days. Unable to sleep last night. Has been doubling up on oxy 5mg tabs in order to have positive effect. Last took oxy 10mg at 3am. Pt. Reports loose stools, x2 in the past 24 hours, no blood seen or black stool. Pt. Reports abdomen is not hard or distended. Pt. Denies vomiting. Pt. Reports he was told by his oncologist that if he were to have severe pain that he should call right away. Pt. Reports he called oncologist directly and states they did not answer. Therefore called our office. Reports he knows he needs urgent imaging but will not go to the ED, states he will be waiting 20 hours. Therefore scheduled pt. For 2pm today with Dr. Gomez for any change to plan of care needed prior to televisit with PCP tomorrow. Pt. Reports his next chemo infusion begins tomorrowbut he will still be able to keep televisit. Protocol Used: Abdominal Pain - Male (Adult) Disposition for Call (Nurse Override): See in Office or Video Visit Today Override Reason: Already seen and worse Override Notes: Discharged from [facility] 03/25/25. Known Pancreatic CA. Protocol-Based Disposition: Go to ED Now Positive Triage Question: * Severe abdominal pain (e.g., excruciating) * All higher-acuity triage questions were negative. * Telephone Encounter - Jayleen Giron - 03/30/2025 9:11 AM EST Symptom: Abdominal Pain - Male Outcome: Talk to a nurse or provider within 15 minutes Reason: Severe pain now The caller accepted this outcome. Contact pt at [phone] Need survey methodologist Pt does not want to go to ER documented in this encounter Plan of Treatment Upcoming Encounters Date Type Department Care Team (Late st Contact Info) Description 06/04/2025 3:00 PM EST Office Visit [facility] OPTOMETRY [address] [place] [address] Gagandeep, Merissa, OD [address] [place] [address] documented as of this encounter Visit Diagnoses Not on filedocumented in this encounter Additional Health Concerns Assessment Noted Time PHQ-9 Depression Total Score: 9 03/03/20 4:53 PM EDT documented as of this encounter Care Teams Drum Sealer Relationship Specialty Start Date End Date Emilie Davis MD [address] [place] [address] PCP - General Family Medicine 05/13/[address] [place] [address] Gastroenterology 05/26/24 Fred Castanon [address] [place] [address] [place] [address] Cardiology 07/21/24 Ele Mar MD [address] [place] [address] Hematology and Oncology 02/22/25 Marina Brown MD Rheumatology 02/10/25 Costa Miller MD Attending Hepatobiliary & Pancreatic Surgeon Division of Surgical Oncology [facility] Surgical Oncology 03/11/25 documented as of this encounter
--- OUTSIDE RECORDS SUMMARY | 2025-04-01 04:43 | XMS_ITS | Encounter Summary ---
Author Organization [employer] Address [address] [facility] 7t [place] [address] Care Team Providers Care Risk Investigator Name Role Phone Emilie Davis MD Primary Care Provider [phone] Morales Echavarria Unavailable Unavailable August Unavailable Fred Castanon Unavailable Ele Mar MD Unavailable [phone] Reason for Visit * Reason Onset Date Comments Med Refill 04/22/2024 Encounter Details Date Type Department Care Team (Late st Contact Info) Description 04/22/2024 Telephone [facility] MEDICINE [address] [place] [address] Emilie Davis MD [address] [place] [address] Med Refill Social History Tobacco Use Types [...] 200 MG/5ML suspension To be sent to: [facility] - [place], [place] - [address] [facility] documented in this encounter Plan of Treatment Upcoming Encounters Date Type Department Care Team (Late st Contact Info) Description 06/04/2025 3:00 PM EST Office Visit [facility] OPTOMETRY [address] [place] [address] Merissa Donis, OD [address] [place] [address] documented as of this encounter Visit Diagnoses Not on filedocumented in this encounter Additional Health Concerns Assessment Noted Time PHQ-9 Depression Total Score: 3 04/30/20 23 9:17 AM EST documented as of this encounter Care Teams Risk Investigator Relationship Specialty Start Date End Date Emilie Davis MD [address] [place] [address] PCP - General Family Medicine 05/13/18 Morales Echavarria FNP [address] [place] [address] Nurse Practitioner Family Medicine 04/16/23 03/10/25 Aida Orozco [address] [place] [address] Gastroenterology 05/26/24 Fred Castanon [address] [place] [address] Cardiology 07/21/24 Ele Mar MD [address] [place] [address] Hematology and Oncology 02/22/25 Marina Brown MD Rheumatology 02/10/25 Costa Miller MD Attending Hepatobiliary & Pancreatic Surgeon Division of Surgical Oncology [facility] Surgical Oncology 03/11/25 documented as of this encounter
--- OUTSIDE RECORDS SUMMARY | 2025-04-01 04:43 | XMS_ITS | Encounter Summary ---
Author Organization [employer] Address [address] [facility] 7t [place] [address] Care Team Providers Care Poly Area Supervisor Name Role Phone Emilie Davis MD Primary Care Provider [phone] Orozco, August Unavailable Fred Castanon Unavailable Ele Mar MD Unavailable [phone] Encounter Details Date Type Department Care Team (Late st Contact Info) Description 03/30/2025 Orders Only GENERIC EXTERNAL DATA DEPARTMENT Provider, [...] Industry Job Start Date Job End Date [employer] Not on file Not on file Not on file documented as of this encounter Plan of Treatment Upcoming Encounters Date Type Department Care Team (Late st Contact Info) Description 06/04/2025 3:00 PM EST Office Visit [facility] OPTOMETRY [address] [place] [address] Gagandeep, Merissa, OD [address] [place] [address] documented as of this encounter Procedures Procedure Name Priority Date/Time Associated Diagnosis Comments URINALYSIS WITH REFLEX MICROSCOPIC Routine 03/30/2025 3:42 PM EST LIPASE Routine 03/30/2025 3:33 PM EST documented in this encounter Results * Urinalysis w/reflex microscopic (03/30/2025 3:42 PM EST) Color Urine Yellow [facility] Appearance Urine Clear [facility] PH 8.5 5.0 - 9.0 [facility] Glucose Urine UA Negative Negative mg/dL [facility] Urine Blood Negative Negative [facility] Specific [place] - Urine 1.020 1.005 - 1.025 [facility] Urine Protein Negative Neg-Trace mg/dL [facility] Urine Ketones 15 Negative mg/dL [facility] Nitrite Urine Negative Negative [facility] Leukocyte Esterase Urine Negative Negative [facility] 03/30/2025 3:42 PM EST 03/30/2025 3:46 PM EST Narrative [facility] - 03/30/2025 3:53 PM EST Urine, Clean Catch us Generic External Data Provider LAB URINE ORDERAB LES Final Result Performing Organization Address City/[facility]/ZIP Co de Phone Number [facility] [address] [place] [address] [phone] * Lipase (03/30/2025 3:33 PM EST) Lipase 29 8 - 78 U/L [facility] 03/30/2025 3:33 PM EST 03/30/2025 3:35 PM EST us Generic External Data Provider LAB BLOOD ORDERAB LES Final Result Performing Organization Address City/[facility]/ZIP Co de Phone Number [facility] [address] [place] [address] [phone] documented in this encounter Visit Diagnoses Not on filedocumented in this encounter Additional Health Concerns Assessment Noted Time PHQ-9 Depression Total Score: 9 03/03/20 25 4:53 PM EDT documented as of this encounter Care Teams Poly Area Supervisor Relationship Specialty Start Date End Date Emilie Davis MD [address] [place] [address] PCP - General Family Medicine 05/13/18August [address] [place] [address] Gastroenterology 05/26/24 Fred Castanon [address] [place] [address] Cardiology 07/21/24 Ele Mar MD [address] [place] [address] Hematology and Oncology 02/22/25 Marina Brown MD Rheumatology 02/10/25 Costa Miller MD Attending Hepatobiliary & Pancreatic Surgeon Division of Surgical Oncology [facility] Surgical Oncology 03/11/25 documented as of this encounter
--- OUTSIDE RECORDS SUMMARY | 2025-04-01 04:43 | XMS_ITS | Encounter Summary ---
Author Organization [employer] Address [address] [facility] 7t [place] [address] Care Team Providers Care Child And Adolescent Psychologist Name Role Phone Emilie Davis MD Primary Care Provider [phone] Morales Echavarria Unavailable Unavailable August Unavailable Fred Castanon Unavailable Ele Mar MD Unavailable [phone] Reason for Visit * Reason Onset Date Comments Referral 07/20/2024 Encounter Details Date Type Department Care Team (Late st Contact Info) Description 07/20/2024 Telephone [facility] MEDICINE [address] [place], [place] [phone] Emilie Davis MD [address] [place], [place] [phone] Referral Social History Tobacco Use Types Packs/Day [...] 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 Contact pt at [phone] documented in this encounter Plan of Treatment Upcoming Encounters Date Type Department Care Team (Late st Contact Info) Description 06/04/2025 3:00 PM EST Office Visit [facility] OPTOMETRY [address] [place] [address] Merissa Donis, OD [address] [place] [address] documented as of this encounter Visit Diagnoses Not on filedocumented in this encounter Additional Health Concerns Assessment Noted Time PHQ-9 Depression Total Score: 3 04/30/20 23 9:17 AM EST documented as of this encounter Care Teams Child And Adolescent Psychologist Relationship Specialty Start Date End Date [place], Emilie, MD [address] [place] [address] PCP - General Family Medicine 05/13/18 Morales Echavarria FNP [address] [place] [address] Nurse Practitioner Family Medicine 04/16/23 03/10/[address] [place] [address] Gastroenterology 05/26/24 Fred Castanon [address] [place] [address] Cardiology 07/21/24 Ele Mar MD [address] [place] [address] Hematology and Oncology 02/22/25 Marina Brown MD Rheumatology 02/10/25 Costa Miller MD Attending Hepatobiliary & Pancreatic Surgeon Division of Surgical Oncology [facility] Surgical Oncology 03/11/25 documented as of this encounter
--- OUTSIDE RECORDS SUMMARY | 2025-04-01 04:43 | XMS_ITS | Encounter Summary ---
Author Organization [facility] Address [address] [place] [phone] Phone Care Team Providers Care Core Drilling Supervisor Name Role Phone Ryan, Emilie Way MD Primary Care Provi baldomero Encounter Details Date Type Department Care Team (Late st Contact Info) Description 10/28/2018 Procedure Pass OR Admitting Dept - Virtual Department [address] [place] [address] Social History Tobacco Use Types Packs/Day Years [...] Team (Late st Contact Info) Description 03/30/2025 Procedure Pass [facility] [place] [address] [facility] [place] [address] 05/14/2025 8:30 AM EST Appointment [facility] [place] [address] [facility] [place] [address] Costa Miller MD [address] [place] [address] [email or web address] 05/14/2025 11:00 AM EST Office Visit [facility] [address] [facility], 7th [address], [address] [place] [address] Costa Miller MD [address] [facility] [address] [place] [address] [email or web address] documented as of this encounter Visit Diagnoses Not on filedocumented in this encounter Care Teams Core Drilling Supervisor Relationship Specialty Start Date End Date [place], Emilie Way MD [address] [place] [address] PCP - General Family Medicine 06/03/18 documented as of this encounter Additional Source Comments The information contained in this document represents components of the legal health record. It is not the complete legal health record.[facility]
--- OUTSIDE RECORDS SUMMARY | 2025-04-01 04:43 | XMS_ITS | Encounter Summary ---
Author Organization [facility] Address [address] [place] [phone] Phone Care Team Providers Care Candy Cutter Hand Name Role Phone Ryan, Emilie Way MD Primary Care Provi baldomero Encounter Details Date Type Department Care Team (Late st Contact Info) Description 03/30/2025 Orders Only [facility] SURGERY VIRTUAL DEPARTMENT [address] [place] [phone] Costa Miller MD [address] [address] [email or web address] Malignant neoplasm of head of pancreas (Primary [...] st Contact Info) Description 03/30/2025 Procedure Pass [facility] [place] [address] [facility], 6th [place] [address] 05/14/2025 8:30 AM EST Appointment [facility] [place] [address] [facility], 6th [place] [address] Costa Miller MD [address] [facility] [address] [place] [address] [email or web address] 05/14/2025 11:00 AM EST Office [facility] [address] [facility], 7th Floor, [address] [place] [address] Costa Miller MD [address] [facility] [address] [place] [address] [email or web address] Scheduled Orders Name Type Priority Associated Diagnoses Orde r Schedule CA 19-9 Lab Routine Malignant neoplasm of head of pancreas Expected: 03/30/2025, Expires: 03/30/2026 PT-INR Lab Routine Malignant neoplasm of head of pancreas Expected: 03/30/2025, Expires: 03/30/2026 Comprehensive Metabolic Panel (CMP) Lab Routine Malignant neoplasm of head of pancreas Expected: 03/30/2025, Expires: 03/30/2026 CBC and Differential Lab Routine Malignant neoplasm of head of pancreas Expected: 03/30/2025, Expires: 03/30/2026 documented as of this encounter Visit Diagnoses Diagnosis Malignant neoplasm of head of pancreas- Primary documented in this encounter Care Teams Candy Cutter Hand Relationship Specialty Start Date End Date Emilie Davis MD [address] [place] [address] PCP - General Family Medicine 06/03/18 documented as of this encounter Additional Source Comments The information contained in this document represents components of the legal health record. It is not the complete legal health record.[facility]
--- OUTSIDE RECORDS SUMMARY | 2025-04-01 04:43 | XMS_ITS | Clinical Summary ---
Author Organization [employer] Address [address] [facility] [address] [place] [address] Care Team Providers Care Motor Builder Assembler Name Role Phone Emilie Davis MD Primary Care Provider [phone] Orozco, August Unavailable Fred Castanon Unavailable Ele Mar MD Unavailable [phone] Allergies Active Allergy Reactions Criticality Noted Date Comments Penicillins Anaphylaxis,Rash High 05/16/2017 Sumatriptan 10/28/2018 Medications * This document contains information received from the source organization and may not represent a complete record from that organization. LORazepam (Ativan) 0.5 MG tabletIndicati ons:Insomnia secondary to depression with anxiety Take 1 tab po at bedtime prn anxiety 30 tablet Active QUEtiapine (SEROquel) 50 MG tabletIndicati ons:Primary insomnia Take 1 tablet (50 mg) by mouth at bedtime. 30 tablet 025 2024 Active Needle, Disp, (BD Disp [place]) 25G X 5/8 miscIndication s:Gender 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 USE TO INJECT Testosterone INTRAMUSCULARLY EVERY 2 WEEKS DIRECTED 25 each 3 024 2024 Discontinued Needle, Disp, (BD Hypodermic Needle) 16G X 1 miscIndication s:Gender 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 USE TO DRAW UP testosterone EVERY 2 WEEKS 24 each 1 024 2024 Discontinued loratadine (Claritin) 10 MG tabletIndicati ons:Seasonal allergies Take 1 tablet (10 mg) by mouth if needed each day for allergies. 30 tablet 1 024 2024 Discontinued(M ed list cleanup (will not trigger notification to Pharmacy)) mirtazapine (Remeron) 15 MG tabletIndicati ons:Seasonal allergies Take 1 tablet (15 mg) by mouth at bedtime. 90 tablet 1 024 2024 Discontinued BD Plastipak Syringe 3 ML miscIndication s:Gender 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 USE FOR TESTOSTERONE 12 each 3 024 2024 Discontinued omeprazole OTC (PriLOSEC OTC) 20 MG EC tabletIndicati ons:Generalize d abdominal pain Take 1 tablet (20 mg) by mouth if needed each day (gerd). Do not crush, chew, or split. 30 tablet 3 024 2024 Discontinued Cabotegravir ER (Apretude) 600 MG/3ML Suspension Extended ReleaseIndicat ions:Encounter for HIV pre-exposure prophylaxis Inject 3 mL every other month IM Ventrogluteal 3 mL 5 025 2024 Discontinued doxycycline (Vibramycin) 100 MG capsule TAKE 2 CAPSULES BY MOUTH DAILY WITHIN 72 HOURS OF unprotected sex. TAKE WITH A FULL GLASS OF WATER AND Do not lie down for 30 minutes after taking. 30 capsule 025 2024 Discontinued(M ed list cleanup (will not trigger notification to Pharmacy)) testosterone cypionate (Depo-Testoste avi) 200 MG/ML injectionIndic ations:Gender dysphoria INJECT 0.5 ML INTRAMUSCULARLY EVERY 2 WEEKS 2 mL 2 025 2024 Discontinued tamsulosin (Flomax) 0.4 MG 24 hr capsuleIndicat ions:Acute left flank pain Take 1 capsule (0.4 mg) by mouth Once per day. 30 capsule 025 2024 Discontinued(M ed list cleanup (will not trigger notification to Pharmacy)) cholecalcifero l (Vitamin D-3) 1.25 MG (18171 UT) capsule Take 1 capsule by mouth [...] at bedtime. Hold for loose stools 025 2024 Discontinued(M ed list cleanup (will not trigger notification to Pharmacy)) linaCLOtide (Linzess) 145 MCG capsule Take 145 mcg by mouth Once per day. 025 2024 Discontinued(M ed list cleanup (will not trigger notification to Pharmacy)) Active Problems Problem Noted Date Diagnosed Date Abdominal pain of multiple sites 03/30/2025 Recurrent major depressive disorder, in partial remission [...] L2-3 levels Pancreatic adenocarcinoma (CMS/HCC) 01/21/2025 Overview (03/31/2025): - Diagnosed with pancreatic adenocarcinoma in January [...] ultrasound and biopsy of this mass at [facility] on 02/18/2025. FNA of pancreatic head mass [...] -Staging CT chest with contrast performed at [facility] [place] on 02/23/2025 showed no evidence of metastaticdisease in chest. Mild coronary artery calcifications, calcified granulomas with soft tissue nodules unchanged since 2018 and considered benign. -Clinical stage T2 N0 -Seen by Dr. Jj oncologist 02/25/25 where she discussed role of preoperative or neoadjuvant chemotherapy for downsizing tumor. He was referred to [facility] [place] surgical Oncology but they did not take his insurance so he was referred to [place] for Surgical Oncology . -He received his portacath Chemotherapy with FOLFIRINOX regimen will be discussed. -Family history of breast cancer and personal history of pancreatic cancer. BRCA1 and 2 and 40 gene panel sent to [facility]. -Nutrition consult has been placed. -Note for surgical oncologist 03/09/25 Dr. Costa Miller MD Attending Hepatobiliary & Pancreatic Surgeon Division of Surgical Oncology [facility] resectable pancreatic adenocarcinoma. He is young, and [...] Follow-up timing: three months Assessment & Plan (03/31/2025 10:02 AM EST): - Diagnosed with pancreatic adenocarcinoma in January [...] ultrasound and biopsy of this mass at [facility] on 02/18/2025. FNA of pancreatic head mass [...] -Staging CT chest with contrast performed at [facility] [place] on 02/23/2025 showed no evidence of metastaticdisease in chest. Mild coronary artery calcifications, calcified granulomas with soft tissue nodules unchanged since 2018 and considered benign. -Clinical stage T2 N0 -Seen by Dr. Jj oncologist 02/25/25 where she discussed role of preoperative or neoadjuvant chemotherapy for downsizing tumor. He was referred to [facility] [place] surgical Oncology but they did not take his insurance so he was referred to [place] for Surgical On[facility] . -He received his portacath Chemotherapy with FOLFIRINOX regimen will be discussed. -Family history of breast cancer and personal history of pancreatic cancer. BRCA1 and 2 and 40 gene panel sent to [facility]. -Nutrition consult has been placed. -Note for surgical oncologist 03/09/25 Dr. Costa Miller MD Attending Hepatobiliary & Pancreatic Surgeon Division of Surgical Oncology [facility] resectable pancreatic adenocarcinoma. He is young, and [...] ultrasound and biopsy of this mass at [facility] on 02/18/2025. FNA of pancreatic head mass [...] -Staging CT chest with contrast performed at [facility] [place] on 02/23/2025 showed no evidence of metastaticdisease in chest. Mild coronary artery calcifications, calcified granulomas with soft tissue nodules unchanged since 2018 and considered benign. -PET scan has been ordered. -Clinical stage T2 N0 -Seen by Dr. Jj oncologist 02/25/25 where she discussed role of preoperative or neoadjuvant chemotherapy for downsizing tumor. He was referred to [facility] [place] surgical Oncology but they did not take his insurance so he was referred to [place] for Surgical Oncology . -If the plan is to go ahead with chemotherapy, he would get a Port-A-Cath placed by intervention Radiology. Chemotherapy with FOLFIRINOX regimen will be discussed. -Family history of breast cancer and personal history of pancreatic cancer. BRCA1 and 2 and 40 gene panel sent to [facility]. -Chronic dysphagia and underweight. Nutrition consult has been placed. Orders: Referral to Nutrition Therapy; Future Referral to Surgical Oncology; Future Idiopathic acute pancreatitis without infection or necrosis 12/31/2024 Overview (12/31/2024): -dx at [facility] 12/2024 Patient admitted to general [...] XR 05/20/24 Coronary artery disease invo lving [place] [facility] without angina pectoris 05/20/2024 Overview (10/15/2024): [...] Non-Reactive 03/18/2024 -03/2024 call from Hol[facility] at [facility] who reports pt originally positive for syphilis in [place] 09/18/1990 (RPR of 1:4) and was treated. [...] care facilitated by [facility]. -dental home is [facility] -health care proxy filed 03/16/24 Assessment & Plan (03/17/2024 6:12 AM EST): -next physical exam due after 03/16/2025 -eye care facilitated by [facility]. -dental home is [facility] -health care proxy filed 03/16/24 Assessment & Plan (03/22/2023 9:17 AM EST): -next physical exam due after 12/07/2023. -eye care facilitated by [facility]. -dental home is outside of [facility] Assessment & Plan (12/06/2022 10:19 AM EDT): -next physical exam dueafter 12/07/2023. -eye care facilitated by [facility]. -dental home is outside of [facility] Hx of hepatitis C 11/26/2022 Overview [...] He was referred back to rheumatology in [place] 08/23/2020 but provider left the area. started on Tramadol. Take 3 times per week. He is not taking at this time -note from trenching machine operator Dr. Marina Brown MD from 02/09/25 reviewed Assessment & Plan (03/17/2024 6:08 AM EST): X rays suggests osteoarthritis. Seen by rheumatology in [place]. Ibuprofen and NSAIDs cause gastritis. Minimal relief with acetaminophen. He was referred back to rheumatology in [place] 08/23/2020 but provider left the area. started on Tramadol. Take 3 times per week. He is not taking at this time. Assessment & Plan (03/22/2023 9:15 AM EST): X rays suggests osteoarthritis. Seen by rheumatology in [place]. Ibuprofen and NSAIDs cause gastritis. Minimal relief with acetaminophen. He was referred back to rheumatology in [place] 08/23/2020 but provider left the area. started on Tramadol. Take 3 times per week. Will need COT in the future. Assessment & Plan (12/06/2022 8:54 AM EDT): X rays suggests osteoarthritis. Seen by rheumatology in [place]. Ibuprofen and NSAIDs cause gastritis. Minimal relief with acetaminophen. He was referred back to rheumatology in [place] 08/23/2020 but provider left the area. started on Tramadol. Take 3 times per week. Will need COT in the future. Assessment & Plan (10/11/2022 9:58 AM EDT): X rays suggests osteoarthritis. Seen by rheumatology in [place]. Ibuprofen and NSAIDs cause gastritis. Minimal relief with acetaminophen. He was referred back to rheumatology in [place] 08/23/2020 but provider left the area. started [...] Now with palpitations. Will refer to his ice platform supervisor for bradycardia. Assessment & Plan (03/22/2023 9:16 AM EST): Sinus bradycardia and asymptomatic. Pt states he always has slow heart rate Pt repots heart rate in 40s recorded with home BP monitor with symptoms of dizziness recorded at home. Now with palpitations. Will refer to his ice platform supervisor for bradycardia. Assessment & Plan (12/06/2022 8:54 AM EDT): Sinus bradycardia and asymptomatic. Pt states he always has slow heart rate Pt repots heart rate in 40s recorded with home BP monitor with symptoms of dizziness recorded at home. Now with palpitations. Will refer to his ice platform supervisor for bradycardia. Assessment & Plan (10/11/2022 9:58 AM EDT): Sinus bradycardia and asymptomatic. Pt states he always has slow heart rate Pt repots heart rate in 40s recorded with home BP monitor with symptoms of dizziness recorded at home. Now with palpitations. Will refer to his ice platform supervisor for bradycardia. Generalized abdominal pain 06/25/2021 [...] for GI. Insurance no longer accepted at [facility]. -EGD scheduled for December 2021. -10/19/24 IMPRESSION: [...] for GI. Insurance no longer accepted at [facility]. -EGD scheduled for December 2021. Assessment & [...] for GI. Insurance no longer accepted at [facility]. -EGD scheduled for December 2021. Assessment & [...] for GI. Insurance no longer accepted at [facility] [place]. -EGD scheduled for December 2021. Assessment & [...] for GI. Insurance no longer accepted at [facility]. -EGD scheduled for December 2021. History of [...] lung 10/04/2017 Overview (05/20/2024): -Ct scan in [place] ER on 12/25/2017 showed multiple indeterminate nodules, [...] 11/15/23 and NO SHOW. Pt can call [phone] to schedule mariely. number given to call 03/16/24 -CT 05/08/24 No acute intrathoracic findings. Calcified granulomas present bilaterally. No suspicious pulmonary nodule identified. Air-fluid level present within the midthoracic esophagus can be associated with gastroesophageal reflux disease and esophageal dysmotility. Coronary artery atherosclerosis. Assessment & Plan (05/20/2024 4:05 PM EST): -Ct scan in [place] ER on 12/25/2017 showed multiple indeterminate nodules, [...] 11/15/23 and NO SHOW. Pt can call [phone] to schedule mariely. number given to call 03/16/24 -CT 05/08/24 No acute intrathoracic findings. Calcified granulomas present bilaterally. No suspicious pulmonary nodule identified. Air-fluid level present within the midthoracic esophagus can be associated with gastroesophageal reflux disease and esophageal dysmotility. Coronary artery atherosclerosis. Assessment & Plan (03/17/2024 6:13 AM EST): -Ct scan in [place] ER on 12/25/2017 showed multiple indeterminate nodules, [...] 11/15/23 and NO SHOW. Pt can call [phone] to schedule mariely. number given to call 03/16/24 Assessment & Plan (03/22/2023 9:16 AM EST): -Ct scan in [place] ER on 12/25/2017 showed multiple indeterminate nodules, largest was solid and measured 2mm. -Given that the Pt has a tobacco Hx and quit in 2018 we referrred to pulmonology that was likely distrupted by the pandemic. -Will ordered repeat CT of chest to follow the nodles. Assessment & Plan (12/06/2022 10:18 AM EDT): -Ct scan in [place] ER on 12/25/2017 showed multiple indeterminate nodules, [...] referred for OP services and referral to [facility] Psychopharmacology clinic. Provided Crisis contact number [...] organization. Date Type Department Care Team Description 03/31/2025 10:15 AM EST Telemedicine [address] [address] Emilie Davis MD Pancreatic adenocarcinoma (CMS/HCC) (HCC) (Primary Dx); Dietary counseling; Exercise counseling; Underweight; Primary insomnia 03/31/2025 Orders Only GENERIC EXTERNAL DATA DEPARTMENT Provider, Generic External Data 03/31/2025 Travel 03/30/2025 2:00 PM EST Office Visit [address] [address] Vitaliy Martinez MD Abdominal pain of multiple sites (Primary Dx) 03/30/2025 Orders Only GENERIC EXTERNAL DATA DEPARTMENT Provider, Generic External Data 03/30/[address] [address] Bijal Irene RN ER Follow-up 03/30/2025 Travel 03/30/[address] [address] Emilie Davis MD chart prep 03/30/[address] [address] Emilie Davis MD Nurse Triage 03/22/2025 Orders Only GENERIC EXTERNAL DATA DEPARTMENT Provider, Generic External Data 03/19/[address] [address] Emilie Davis MD chart prep 03/19/[address] [address] Emilie Davis MD 03/18/[address] [address] Emilie Davis MD Chart Prep 03/16/2025 Orders Only GENERIC EXTERNAL DATA DEPARTMENT Provider, Generic External Data 03/11/[address] [address] Medina Lewis, RONALD 03/04/2025 Orders Only [address] [address] Emilie Davis MD Pancreatic adenocarcinoma (CMS/HCC) (HCC) (Primary Dx) 03/03/2025 9:30 AM EDT Office Visit [address] [address] Emilie Davis MD Pancreatic adenocarcinoma (CMS/HCC) (HCC) (Primary Dx); Insomnia secondary to depression with anxiety 03/03/2025 Travel 02/26/[address] [address] Emilie Davis MD Interoffice Coordination 02/25/2025 1:40 PM EDT Office Visit [facility] [address] [place] [address] Ann-Marie Muhammad MD Pain of left calf (Primary Dx); Pancreatic adenocarcinoma (CMS/HCC) (HCC) 02/25/2025 Results Follow-Up [facility] [address] [place], [place] [phone] Ann-Marie Muhammad MD Lower Extremity Venous Duplex 02/25/2025 Orders Only [facility] [address] [place] [address] Ann-Marie Muhammad MD 02/25/2025 Travel 02/24/2025 Orders Only [place] [facility] [address] [place] [address] ProviderSammy MD Pancreatic mass (Primary Dx) 02/23/2025 Patient Outreach [address] [address] Emilie Davis MD Pre-visit Planning (Pre-visit planning - LVM ) 02/22/2025 Patient Outreach [facility] [address] [place] [address] Emilie Davis MD Transition Of Care (Tcm) (Unscheduled ) 02/22/[address] [address] Emilie Davis MD Hospital Follow-up 02/19/2025 Orders Only [place] [facility] [address] [address] Sammy Dowd MD 02/19/[address] [address] Emilie Davis MD 02/18/2025 Orders Only GENERIC EXTERNAL DATA DEPARTMENT Provider, Generic External Data 02/16/[address] [address] Medina Lewis RN 02/09/2025 Orders Only [facility] External Provider, [facility] Chronic bilateral low back pain, unspecified whether sciatica present (Primary Dx) 02/05/2025 Orders Only [address] [address] Emilie Davis MD Depression, unspecified depression type (Primary Dx) 02/04/[address] [address] Emilie Davis MD Care Coordination; Referral 02/04/[address] [address] Emilie Davis MD Referral; Care Coordination 02/02/2025 Orders Only [address] [address] Kayla Sellers, RONALD 02/01/2025 Orders Only GENERIC EXTERNAL DATA DEPARTMENT Provider, Generic External Data 01/27/2025 11:00 AM EDT Clinical Support [address] [address] Medina Lewis, RN On pre-exposure prophylaxis for HIV (Primary Dx) 01/27/2025 Orders Only [address] [address] Emilie Davis MD 01/27/2025 Travel 01/21/2025 Travel 01/19/2025 Orders Only [facility] External Provider, [facility] Pancreatic mass (Primary Dx) 01/15/2025 Orders Only GENERIC EXTERNAL DATA DEPARTMENT Provider, Generic External Data 01/14/2025 Orders Only [facility] External Provider, [facility] Generalized abdominal pain (Primary Dx) 01/08/2025 Orders Only GENERIC EXTERNAL DATA DEPARTMENT Provider, Generic External Data 01/07/[address] [address] Emilie Davis MD Call Back Request; Injectable PrEP Communication 01/04/2025 Patient Outreach [address] [address] Emilie Davis MD Transition Of Care (Tcm) (HDF unscheduled) 01/04/[address] [address] Emilie Davis MD Nurse Triage 01/04/[address] [address] Emilie Davis MD Hospital Follow-up; No Show (Pt no show for hdf ) from Last 3 Months Immunizations Immunization Administration [...] Industry Job Start Date Job End Date [employer] Not on file Not on file [...] Mass Index 15.94 03/30/2025 1:59 PM EST Plan of Treatment Upcoming Encounters Date Type Department Care Team (Late st Contact Info) Description 06/04/2025 3:00 PM EST Office Visit [facility] [address] [place] [address] Gagandeep, Merissa, OD [address] [place] [address] Health Maintenance Due Date Last Done Comments CT Colonography 1970 FIT DNA/Cologuard 1970 FIT 1970 FOBT 1970 Sigmoidoscopy 1970 Disability Screening 1970 Pneumococcal Vaccine: 50+ Years (2 of 2 - PCV) 09/17/2018 09/17/2017 RSV Patients and Patients Aged 60 years or older (1 - Risk 50-74 years 1-dose series) 2019 Colonoscopy 01/30/2023 01/30/2018 Colorectal Cancer Screening 01/30/2023 Zoster Vaccines (1 of 2) 02/01/2023 COVID-19 Vaccine (4 - 5-26 season) 2025 06/05/2021, 10/11/2020, 09/14/2020 Influenza Vaccine (#1) 2025 06/18/2019, 2017 Alcohol/Substance Use Screening 05/20/2025 05/20/2024 Depression Monitoring 09/01/2025 03/03/2025, 025 SDOH Screening 03/03/2026 03/03/2025 Tobacco Screening 03/31/2026 03/31/2025 HPV/Cotest 03/22/2028 03/22/2023, 11/11, 12/06/2017 Pap Smear 03/22/2028 03/22/2023, 12/06/2017 DTaP/Tdap/Td Vaccines (2 - Td or Tdap) 06/18/2029 06/18/2019 Lipid Panel 07/24/2029 07/24/2024, 110 10/2023, 10/18/2022, Additional history exists Hepatitis A Vaccines Completed 03/16/2024, 12/08/19 23 [...] MAN DIF Routine 03/31/2025 5:24 PM EST LIPASE Routine 03/31/2025 5:24 PM EST COMPREHENSIVE METABOLIC PANEL Routine 03/31/2025 5:24 PM EST LACTIC ACID Routine 03/31/2025 5:24 PM EST CBC WITH AUTO DIFFERENTIAL Routine 03/31/2025 5:24 PM EST URINALYSIS WITH REFLEX MICROSCOPIC Routine 03/30/2025 3:42 PM EST LIPASE Routine 03/30/2025 3:33 PM EST URINALYSIS, COMPLETE, WITH REFLEX TO CULTURE Routine 03/22/2025 1:[address] ABDOMEN PELVIS W CONTRAST Routine 03/22/2025 1:03 PM EST CTA CHEST PE PROTOCAL Routine 03/22/2025 1:[address] HEAD WO CONTRAST Routine 03/22/2025 1 [...] QL NAAT Routine 03/22/2025 11:26 AM EST IR US GUIDE VENOUS ACCESS Routine 03/16/2025 8:30 AM EST IR CVC INSERT TUNNEL W PRT/ONLINE MARKETING MANAGER Routine 03/16/2025 8:20 AM EST PROTHROMBIN TIME-INR Routine 03/16/2025 7:45 [...] MODIFIED WESTERGREN Routine 01/08/2025 10:47 AM EDT LIPID PANEL, STANDARD Routine 07/24/2024 1:36 PM EDT HPV MRNA E6/E7 REFLEX TO HPV 16, 18/45 Routine 03/22/2023 11:30 AM EST PAP SMEAR Routine 03/22/2023 11:30 AM EST HM COLONOSCOPY Routine 01/30/2018 from Last 3 Months or Most Recently Relevant to Health Maintenance Results * CT Abdomen Pelvis w/ Contrast (03/31/2025 7:21 PM EST) Only the most recent of3 resultswithin the time period is included. Anatomical Region Laterality Modality Body, Pelvis, Abdomen Computed T omography 03/31/2025 7:21 PM EST Narrative 03/31/2025 7:22 PM EST [place] [address] CT Scan Report Signed Patient: Harriet Valdez MR#: [id number] : 1970 Acct:[id number] Age/Sex: 55 / F ADM Date: 03/31/25 Loc: .ED Attending Dr: Ordering Physician: Cheryl Cobb DO Date of Service: 03/31/25 Procedure(s): CT abdomen pelvis w IV con Accession Number(s): [id number] cc: Emilie Davis MD; Cheryl Cobb DO Report Number: [id number]: Total DLP = 551.00 mGy-cm Reason for Exam: abdominal pain CLINICAL HISTORY: abdominal pain CT abdomen and pelvis with contrast Comparison: CT/REG/SR - CT ABDOMEN PELVIS W IV CON - 02/18/25 19:33 EDT MR - MR ABDOMEN WO/W CON - 01/19/25 10:[address]/REG/ID/SR - CT ABDOMEN PELVIS WITH IV CONTRAST [...] in OV> 03/31/251921 DD/ 20 TD/TT: 03/31/251920 Transport Technician: Procedure Note Donotuseinterpreter, Image - 03/31/[address] [place] [address] [address] Scan Report Signed Patient: Harriet Valdez#: [id number] : 1970Acct:[id number] Age/Sex: 55 / FADM Date: 03/31/25 Loc: .ED Attending Dr: Ordering Physician: Cheryl Cobb DO Date of Service: 03/31/25 Procedure(s): CT abdomen pelvis w IV con Accession Number(s): [id number] cc: Emilie Davis MD; Cheryl Cobb DO Report Number: [id number]: Total DLP = 551.00 mGy-cm Reason for Exam: abdominal pain CLINICAL HISTORY: abdominal pain CT abdomen and pelvis with contrast Comparison: CT/REG/SR - CT ABDOMEN PELVIS W IV CON - 02/18/25 19:33 EDT MR - MR ABDOMEN WO/W CON - 01/19/25 10:[address]/REG/ID/SR - CT ABDOMEN PELVIS WITH IV CONTRAST [...] in OV> 03/31/251921 DD/ 20 TD/TT: 03/31/251920 Transport Technician: [facility] External Provider IMG CT PROCEDURES Final Result * Slide Review (03/31/2025 5:24 PM EST) Slide Review MANUAL DIFF [facility] 03/31/2025 5:24 PM EST 03/31/2025 5:35 PM EST Generic External Data Provider LAB BLOOD ORDERAB LES Final Result [facility] [address] [place] [phone] * (ABNORMAL) Complete Blood Count Manual Diff (03/31/2025 5:24 PM EST) White Blood Count 4.9 4.8 - 10.8 X10*3/uL [facility] Red Blood Count 3.92(L) 4.20 - 5.50 X10*6/uL [facility] Hemoglobin 11.4(L) 12.0 - 16.0 g/dl [facility] Hematocrit 33.9(L) 37.0 - 47.0 % [facility] Mean Corpuscular Volume 86.5 80.0 - 98.0 fL [facility] Mean Corpuscular Hemoglobin 29.1 27.0 - 33.0 pg [facility] Mean Corpuscular HGB Conc 33.6 31.0 - 35.0 g/dl [facility] Red Cell Distribution Width 13.2 11.0 - 16.0 % [facility] Platelet Count 266 160 - 400 X10*3/uL [facility] Mean Platelet Volume 8.8(L) 9.4 - 12.3 fL [facility] NRBC Pct Auto 0.0 0.0 - 0.2 /100WBC [facility] NRBC Abs Auto 0.000 0.0 - 0.012 X10*3/uL [facility] Neutrophils % Manual 13(L) 45 - 73 % [facility] Band Neutrophils Percent 9(H) 3 - 5 % [facility] Lymphocytes Percent Manual 63(H) 20 - 40 % [facility] Atypical Lymphs Percent Manual 3 0 - 6 % [facility] Monocytes Percent Manual 11 2 - 11 % [facility] EOSINOPHILS % MANUAL 1 0 - 4 % [facility] LABS NEUTROPHILS ABSOLUTE MANUAL 1.1(L) 2.0 - 8.3 X10*3/uL [facility] LYMPHOCYTES ABSOLUTE MANUAL 3.1 1.2 - 4.9 X10*3/uL [facility] Atypical Lymph Absolute Manual 0.1 x10*3/uL [facility] MONOCYTES ABSOLUTE MANUAL 0.5 0.1 - 1.2 X10*3/uL [facility] Platelet Estimate NORMAL NORMAL [facility] Platelet Morphology Comment NORMAL [facility] RBC Morphology NOTED [facility] Wilbur Cells 1+ (0-2) /OIF [facility] 03/31/2025 5:24 PM EST 03/31/2025 5:35 PM EST us Generic External Data Provider LAB BLOOD ORDERAB LES Final Result [facility] [address] [place] [phone] * (ABNORMAL) CBC auto differential (03/31/2025 5:24 PM EST) Only the most recent of5 resultswithin the time period is included. White Blood Count 4.9 4.8 - 10.8 X10*3/uL [facility] Red Blood Count 3.92(L) 4.20 - 5.50 X10*6/uL [facility] Hemoglobin 11.4(L) 12.0 - 16.0 g/dl [facility] Hematocrit 33.9(L) 37.0 - 47.0 % [facility] Mean Corpuscular Volume 86.5 80.0 - 98.0 fL [facility] Mean Corpuscular Hemoglobin 29.1 27.0 - 33.0 pg [facility] Mean Corpuscular HGB Conc 33.6 31.0 - 35.0 g/dl [facility] Red Cell Distribution Width 13.2 11.0 - 16.0 % [facility] Platelet Count 266 160 - 400 X10*3/uL [facility] Mean Platelet Volume 8.8(L) 9.4 - 12.3 fL [facility] Neutrophils Percent Auto 23.3(L) 45 - 73 % [facility] Imm Gran Pct Auto 0.2 0.0 - 0.4 % [facility] Lymphocytes Percent Auto 48.7(H) 20 - 40 % [facility] Monocytes Percent Auto 24.6(H) 2 - 11 % [facility] Eosinophils Percent Auto 2.4 0 - 4 % [facility] Basophils Percent Auto 0.8 0 - 2 % [facility] NRBC Pct Auto 0.0 0.0 - 0.2 /100WBC [facility] Neutrophils Absolute Auto 1.1(L) 2.0 - 8.3 x10*3/uL [facility] Imm Gran Abs Auto 0.01 0.00 - 0.03 X10*3/uL [facility] Lymphocytes Absolute Auto 2.4 1.2 - 4.9 X10*3/uL [facility] Monocytes Absolute Auto 1.2 0.1 - 1.2 X10*3/uL [facility] Eosinophils Absolute Auto 0.1 0.0 - 0.4 X10*3/uL [facility] Basophils Absolute Auto 0.0 0.0 - 0.2 X10*3/uL [facility] NRBC Abs Auto 0.000 0.0 - 0.012 X10*3/uL [facility] 03/31/2025 5:24 PM EST 03/31/2025 5:35 PM EST us Generic External Data Provider LAB BLOOD ORDERAB LES Edited Result - Final Performing Organization Address City/[facility]/ZIP Co de Phone Number [facility] [address] [place] [phone] * Lipase (03/31/2025 5:24 PM EST) Only the most recent of5 resultswithin the time period is included. Lipase 25 8 - 78 U/L [facility] 03/31/2025 5:24 PM EST 03/31/2025 5:35 PM EST us Generic External Data Provider LAB BLOOD ORDERAB LES Final Result Performing Organization Address City/[facility]/ZIP Co de Phone Number [facility] [address] [place] [phone] * Lactic Acid (03/31/2025 5:24 PM EST) Only the most recent of3 resultswithin the time period is included. Lactic Acid 0.7 0.5 - 2.0 mmol/L [facility] 03/31/2025 5:24 PM EST 03/31/2025 5:35 PM EST us Generic External Data Provider LAB BLOOD ORDERAB LES Final Result [facility] [address] [place] [phone] * (ABNORMAL) Comprehensive Metabolic Panel (03/31/2025 5:24 PM EST) Only the most recent of3 resultswithin the time period is included. Sodium 138 135 - 145 mmol/L [facility] Potassium 3.8 3.3 - 5.1 mmol/L [facility] Chloride 103 96 - 108 mmol/L [facility] Carbon Dioxide 25 22 - 29 mmol/L [facility] Anion Gap 14 12 - 20 [facility] Urea Nitrogen (BUN) 6(L) 9 - 16 mg/dL [facility] Creatinine, Serum 0.59 0.5 - 1.4 mg/dL [facility] Creatinine Clr Calc Pharmacy 75.4 [facility] Comment:Provided height and weight: 165.1 cm,44.9 kg.eGFR (calculated from the MDRD study equation) and eCrCl(calculated from the Cockcroft-Gault equation) are based ondifferent parameters and may not yield comparable results.If eCrCl result is absurd, please check patient'sheight/weight. Estimated Glomerular Filt Rate >60 [facility] Comment:Chronic Kidney Disea se: Estimated GFR < 60 mL/min/1.32i5Uryohw Kidney Disease: Estimated GFR < 15 mL/min/1.73m2 Glucose 85 60 - 115 mg/dL [facility] Calcium 8.8 8.4 - 10.2 mg/dL [facility] Bilirubin, Total 0.2 0.0 - 1.0 mg/dL [facility] Aspartate Amino Transferase 15 5 - 31 U/L [facility] Alanine Aminotransferase 6 0 - 31 U/L [facility] Total Protein 6.3(L) 6.5 - 8.0 g/dL [facility] Albumin Level 3.4(L) 3.5 - 5.0 g/dL [facility] Alkaline Phosphatase 71 39 - 117 U/L [facility] 03/31/2025 5:24 PM EST 03/31/2025 5:35 PM EST us Generic External Data Provider LAB BLOOD ORDERAB LES Final Result Performing Organization Address [facility]/ZIP Co de Phone Number [facility] [address] [place] [phone] * Urinalysis w/reflex microscopic (03/30/2025 3:42 PM EST) Color Urine Yellow [facility] Appearance Urine Clear [facility] PH 8.5 5.0 - 9.0 [facility] Glucose Urine UA Negative Negative mg/dL [facility] Urine Blood Negative Negative [facility] Specific [place] - Urine 1.020 1.005 - 1.025 [facility] Urine Protein Negative Neg-Trace mg/dL [facility] Urine Ketones 15 Negative mg/dL [facility] Nitrite Urine Negative Negative [facility] Leukocyte Esterase Urine Negative Negative [facility] 03/30/2025 3:42 PM EST 03/30/2025 3:46 PM EST Narrative [facility] - 03/30/2025 3:53 PM EST Urine, Clean Catch us Generic External Data Provider LAB URINE ORDERAB LES Final Result Performing Organization Address [facility] Co de Phone Number [facility] [address] [place] [phone] * (ABNORMAL) Urinalysis, Complete, with Reflex to Culture (03/22/2025 1:42 PM EST) Color Urine Yellow [facility] Appearance Urine Clear [facility] PH 7.5 5.0 - 9.0 [facility] Glucose Urine UA Negative Negative mg/dL [facility] Urine Blood Negative Negative [facility] Specific [place] - Urine 1.010 1.005 - 1.025 [facility] Urine Protein Negative Neg-Trace mg/dL [facility] Urine Ketones Negative Negative mg/dL [facility] Nitrite Urine Negative Negative [facility] Leukocyte Esterase Urine Trace(A) Negative [facility] RBC Urine 0-2 0 - 2 /HPF [facility] Urine WBC 0-5 0 - 5 /HPF [facility] Urine Squamous Epithelial Cell 3-5 0 - 2 /HPF [facility] Urine Bacteria None Seen None Seen [facility] Hyaline Casts, Urine 0-2 0 - 2 /LPF [facility] 03/22/2025 1:42 PM EST 03/22/2025 1:51 PM EST Narrative [facility] - 03/22/2025 2:03 PM EST [id number], Clean Catch us Generic External Data Provider LAB URINE ORDERAB LES Final Result [facility] [address] [place] [address] [phone] * CTA Chest PE Protocal (03/22/2025 1:03 PM EST) Anatomical Region Laterality Modality Body, Chest Computed Tomogra phy 03/22/2025 1:03 PM EST Narrative 03/22/2025 2:15 PM EST [address] [address] [address] Scan Report Signed Patient: Harriet Valdez MR#: [id number] : 1970 Acct:[id number] Age/Sex: 55 / F ADM Date: 03/22/25 Loc: HO.ED Attending Dr: Ordering Physician: Virginia Monroe DO Date of Service: 03/22/25 Procedure(s): CT angio chest PE protocol Accession Number(s): [id number] cc: Emilie Davis MD; Virginia Monroe DO Report Number: [id number]: Total DLP = 210.00 mGy-cm Reason for Exam: Severe pleuritic chest pain tachycardia EXAMINATION: CT ANGIOGRAM CHEST CLINICAL INFORMATION: Severe pleuritic chest pain. COMPARISON: None available. TECHNIQUE: Multiple axial images were obtained through the chest after the administration of 85 mL of Omnipaque 350 intravenous contrast. Extensive vascular post-processing including two-dimensional and three-dimensional reformatted images were created and reviewed on an independent workstation. This CT examination was performed using dose optimization techniques as appropriate, variously including the following: *Automated exposure control *Adjustment of mA and/or kV according to patient size (this includes techniques or standardized protocols for targeted exams where dose is matched to indication/reason for exam; i.e. extremities or head) *Use of iterative reconstruction technique FINDINGS: QUALITY OF STUDY/CONTRAST BOLUS: Satisfactory. PULMONARY ARTERIES: No evidence of filling defects suggest central or segmental pulmonary emboli. THORACIC AORTA: No aneurysm. LUNG: Trachea and central airway are patent. Mild bibasilar subpleural atelectasis. No dense consolidation. Redemonstrated multiple calcified granulomas, largest in the right lower lobe, stable from previous. No suspicious nodules are seen. PLEURA: No pleural effusion or pneumothorax. MEDIASTINUM: Normal heart size. No pericardial effusion. No hilar or mediastinal lymphadenopathy. No findings to suggest right heart strain. Redemonstrated air-fluid level in the mid thoracic esophagus. CORONARY ARTERY CALCIFICATION: Present CHEST WALL/AXILLA: No axillary or internal mammary lymphadenopathy. OSSEOUS STRUCTURES: Mild spondylosis. No acute fracture or suspicious bony lesion. UPPER ABDOMEN: See CT chest findings CT/CT angio chest PE protocol IMPRESSION: 1. No evidence of filling defects to suggest central or subsegmental pulmonary emboli. 2. Redemonstrated air-fluid level in the mid thoracic esophagus, which can be associated with gastroesophageal reflux disease or esophageal dysmotility. 3. Bibasilar atelectasis. 4. Additional findings and details as above. VTE: negative IMPRESSION: Unremarkable examination. Fleischner guidelines were followed. Electronically signed by: Huseyin Cerna MD 03/22/2025 02:12 PM EST Dictated By: Huseyin Cerna MD Signed By: <Electronically signed by Huseyin Cerna MD in OV> 03/22/25 1412 DD/ 1303 TD/TT: 03/22/25 1341 Transport Technician: Procedure Note Donotuseinterpreter, Image - 03/22/[address] [address] [address] Scan Report Signed Patient: Harriet ValdezMR#: [id number] : 1970Acct:[id number] Age/Sex: 55 / FADM Date: 03/22/25 Loc: .ED Attending Dr: Ordering Physician: Virginia Monroe DO Date of Service: 03/22/25 Procedure(s): CT angio chest PE protocol Accession Number(s): [id number] cc: Emilie Davis MD; Virginia Monroe DO Report Number: [id number]: Total DLP = 210.00 mGy-cm Reason for Exam: Severe pleuritic chest pain tachycardia EXAMINATION: CT ANGIOGRAM CHEST CLINICAL INFORMATION: Severe pleuritic chest pain. COMPARISON: None available. TECHNIQUE: Multiple axial images were obtained through the chest after the administration of 85 mL of Omnipaque 350 intravenous contrast. Extensive vascular post-processing including two-dimensional and three-dimensional reformatted images were created and reviewed on an independent workstation. This CT examination was performed using dose optimization techniques as appropriate, variously including the following: *Automated exposure control *Adjustment of mA and/or kV according to patient size (this includes techniques or standardized protocols for targeted exams where dose is matched to indication/reason for exam; i.e. extremities or head) *Use of iterative reconstruction technique FINDINGS: QUALITY OF STUDY/CONTRAST BOLUS: Satisfactory. PULMONARY ARTERIES: No evidence of filling defects suggest central or segmental pulmonary emboli. THORACIC AORTA: No aneurysm. LUNG: Trachea and central airway are patent. Mild bibasilar subpleural atelectasis. No dense consolidation. Redemonstrated multiple calcified granulomas, largest in the right lower lobe, stable from previous. No suspicious nodules are seen. PLEURA: No pleural effusion or pneumothorax. MEDIASTINUM: Normal heart size. No pericardial effusion. No hilar or mediastinal lymphadenopathy. No findings to suggest right heart strain. Redemonstrated air-fluid level in the mid thoracic esophagus. CORONARY ARTERY CALCIFICATION: Present CHEST WALL/AXILLA: No axillary or internal mammary lymphadenopathy. OSSEOUS STRUCTURES: Mild spondylosis. No acute fracture or suspicious bony lesion. UPPER ABDOMEN: See CT chest findings CT/CT angio chest PE protocol IMPRESSION: 1. No evidence of filling defects to suggest central or subsegmental pulmonary emboli. 2. Redemonstrated air-fluid level in the mid thoracic esophagus, which can be associated with gastroesophageal reflux disease or esophageal dysmotility. 3. Bibasilar atelectasis. 4. Additional findings and details as above. VTE: negative IMPRESSION: Unremarkable examination. Fleischner guidelines were followed. Electronically signed by: Huseyin Cerna MD 03/22/2025 02:12 PM EST Dictated By: Huseyin Cerna MD Signed By: <Electronically signed by Huseyin Cerna MD in OV> 03/22/25 1412 DD/ 1303 TD/TT: 03/22/25 1341 Transport Technician: RAVINDRA [facility] External Provider IMG CT PROCEDURES Edited Result - Final * CT Head w/o Contrast (03/22/2025 1:03 PM EST) Anatomical Region Laterality Modality Head, Neck Computed Tomogra phy 03/22/2025 1:03 PM EST Narrative 03/22/2025 1:51 PM EST [address] [address] [address] Scan Report Signed Patient: Harriet Valdez MR#: [id number] : 1970 Acct:[id number] Age/Sex: 55 / F ADM Date: 03/22/25 Loc: HO.ED Attending Dr: Ordering Physician: Virginia Monroe DO Date of Service: 03/22/25 Procedure(s): CT head/brain wo IV con Accession Number(s): [id number] cc: Emilie Davis MD; Virginia Monroe DO Report Number: [id number]: Total DLP = 496.00 mGy-cm Reason for [...] by: Eric Daley MD 03/22/2025 01:48 PM [facility] Dictated By: Eric Maki MD Signed By: <Electronically signed by Eric Irene MD in OV> 03/22/25 1348 DD/ 1303 TD/TT: 03/22/25 1341 Transport Technician: Procedure Note Donotuseinterpreter, Image - 03/22/[address] [address] [address] Scan Report Signed Patient: Harriet ValdezMR#: [id number] : 1970Acct:[id number] Age/Sex: 55 / FADM Date: 03/22/25 Loc: HO.ED Attending Dr: Ordering Physician: Virginia Monroe DO Date of Service: 03/22/25 Procedure(s): CT head/brain wo IV con Accession Number(s): [id number] cc: Emilie Davis MD; Virginia Monroe DO Report Number: [id number]: Total DLP = 496.00 mGy-cm Reason for [...] by: Eric Daley MD 03/22/2025 01:48 PM [facility] Dictated By: Eric Maki MD Signed By: <Electronically signed by Sukhjinder Montilla OV> 03/22/25 1348 DD/ 1303 TD/TT: 03/22/25 1341 Transport Technician: [facility] External Provider IMG CT PROCEDURES Edited Result - Final * High Sensitivity Troponin I (03/22/2025 11:26 AM EST) Pathologist [facility] TROPONIN I HIGH SENSITIVITY 3.2 <3.5 - 17.0 ng/L [facility] Comment:The [place] high sens itivity Troponin-I results should beused in conjunction with other diagnostic information suchas ECG, clinical observations and information, and patientsymptoms to aid in the diagnosis of CT. 03/22/2025 11:2 6 AM EST 03/22/2025 11:37 AM EST Generic External Data Provider LAB BLOOD ORDERAB LES Final Result Performing Organization Address City/State/[facility] Co de Phone Number [facility] [address] [place] [phone] * SARS-CoV-2 RNA, Influenza A/B, and RSV RNA, Ql NAAT (03/22/2025 11:26 AM EST) Pathologist [facility] Influenza A PCR NEGATIVE Negative [facility] Influenza B PCR NEGATIVE Negative [facility] Resp Syncy Virus RNA Qual PCR NEGATIVE Negative [facility] SARS COV2 PCR NEGATIVE Negative [facility] Comment:All test results mus [...] use by authorized laboratories.Testing performed on the [employer] GeneXpert utilizingreal-time RT-PCR.All SARS CoV2 and positive influenza A/B results arereported to [facility]. 03/22/2025 11:2 6 AM EST 03/22/2025 11:37 AM EST us Generic External Data Provider LAB MICROBIOLOGY - GENERAL ORDERABLES Final Result Performing Organization Address City/[facility] Co de Phone Number [facility] [address] [place] [phone] * Magnesium (03/22/2025 11:26 AM EST) Pathologist [facility] Magnesium 2.1 1.6 - 2.6 mg/dL [facility] 03/22/2025 11:2 6 AM EST 03/22/2025 11:37 AM EST us Generic External Data Provider LAB BLOOD ORDERAB LES Final Result Performing Organization Address [facility] Phone Number [facility] [address] [place] [phone] * (ABNORMAL) Hepatic Function Panel (03/22/2025 11:26 AM EST) Bilirubin, Total 0.8 0.0 - 1.0 mg/dL [facility] Bilirubin, Direct 0.2 0.0 - 0.5 mg/dL [facility] Aspartate Amino Transferase 30 5 - 31 U/L [facility] Alanine Aminotransferase 33(H) 0 - 31 U/L [facility] Total Protein 7.8 6.5 - 8.0 g/dL [facility] Albumin Level 4.5 3.5 - 5.0 g/dL [facility] Alkaline Phosphatase 100 39 - 117 U/L [facility] 03/22/2025 11:2 6 AM EST 03/22/2025 11:37 AM EST us Generic External Data Provider LAB BLOOD ORDERAB LES Final Result Performing Organization Address [facility] Co ok Phone Number [facility] [address] [place] [phone] * (ABNORMAL) Basic Metabolic Panel (03/22/2025 11:26 AM EST) Sodium 137 135 - 145 mmol/L [facility] Potassium 3.8 3.3 - 5.1 mmol/L [facility] Chloride 106 96 - 108 mmol/L [facility] Carbon Dioxide 21(L) 22 - 29 mmol/L [facility] Anion Gap 14 12 - 20 [facility] Urea Nitrogen (BUN) 12 9 - 16 mg/dL [facility] Creatinine, Serum 0.68 0.5 - 1.4 mg/dL [facility] Creatinine Clr Calc Pharmacy 65.0 [facility] Comment:Provided height and weight: 165.1 cm,44.6 kg.eGFR (calculated from the MDRD study equation) and eCrCl(calculated from the Cockcroft-Gault equation) are based ondifferent parameters and may not yield comparable results.If eCrCl result is absurd, please check patient'sheight/weight. Estimated Glomerular Filt Rate >60 [facility] Comment:Chronic Kidney Disea se: Estimated GFR < 60 mL/min/1.99u7Shhsay Kidney Disease: Estimated GFR < 15 mL/min/1.73m2 Glucose 111 60 - 115 mg/dL [facility] Calcium 9.7 8.4 - 10.2 mg/dL [facility] 03/22/2025 11:2 6 AM EST 03/22/2025 11:37 AM EST us Generic External Data Provider LAB BLOOD ORDERAB LES Final Result [facility] [address] [place] [phone] * IR US Guide - Venous Access (03/16/2025 8:30 AM EST) Anatomical Region Laterality Modality X-Ray Angiograph y 03/16/2025 8:30 AM EST Narrative 03/30/2025 10:46 AM EST [address] [address] Interventional Radiology Rpt Signed Patient: Harriet Valdez MR#: [id number] : 1970 Acct:[id number] Age/Sex: 55 / F ADM Date: 03/16/25 Loc: HO.SSS Attending Dr: Vern Fuentes MD Ordering Physician: Vern Fuentes MD Date of Service: 03/16/25 Procedure(s): IR us guide venous access Accession Number(s): [id number] cc: Emilie Davis MD; Vern Fuentes MD Reason for Exam: FOR PORT ACCESS See fluoroscopy IR report. Electronically signed by: Jimmy Pedroza MD 03/30/2025 10:43 AM EST RP Dictated By: Jimmy Pedroza MD Signed By: <Electronically signed by Jimmy Pedroza MD in OV> 03/30/25 1043 DD/ 9 TD/TT: 03/16/25 104 Transport Technician: [facility] Procedure Note Donotuseinterpreter, Image - 03/30/2025 [place] [address] Interventional Radiology Rpt Signed Patient: Harriet ValdezMR#: [id number] : 1970Acct:[id number] Age/Sex: 55 / FADM Date: 03/16/25 Loc: HO.SSS Attending Dr: Vern Fuentes MD Ordering Physician: Vern Fuentes MD Date of Service: 03/16/25 Procedure(s): IR us guide venous access Accession Number(s): [id number] cc: Emilie Davis MD; Vern Fuentes MD Reason for Exam: FOR PORT ACCESS See fluoroscopy IR report. Electronically signed by: Jimmy Pedroza MD 03/30/2025 10:43 AM EST RP Dictated By: Jimmy Pedroza MD Signed By: <Electronically signed by Jimmy Pedroza MD in OV> 03/30/25 1043 DD/ 0830 TD/TT: 03/16/25 1040 Transport Technician: MADINA us [facility] External Provider IMG IR PROCEDURES Final Result * IR cvc insert tunnel w prt/learning disabilities specialist (03/16/2025 8:20 AM EST) Anatomical Region Laterality Modality X-Ray Angiograph y 03/16/2025 8:20 AM EST Narrative 03/30/2025 10:44 AM EST [address] [address] Interventional Radiology Rpt Signed Patient: Harriet Valdez MR#: [id number] : 1970 Acct:[id number] Age/Sex: 55 / F ADM Date: 03/16/25 Loc: [facility] Attending Dr: Vern Fuentes MD Ordering Physician: Vern Fuentes MD Date of Service: 03/16/25 Procedure(s): IR cvc insert tunnel w prt/learning disabilities specialist Accession Number(s): [id number] cc: Emilie Davis MD; Vern Fuentes MD Reason for Exam: Pancreatic cancer. PROCEDURE: IR INSERTION OF TUNNEL CATHETER/PORT CLINICAL INFORMATION: Pancreatic cancer. Port catheter for chemotherapy.. COMPARISON: None available. TECHNIQUE: Following explaining ultrasound and fluoroscopy-guided placement of a left portacatheter procedure, benefits and risk, a written consent was obtained. Patient was placed supine and preliminary ultrasound imaging was performed through the left neck. An optimal site was selected along the left neck and marked. 1% lidocaine was administered puncture site. Undersurface guidance a singlewall needle was advanced and left jugular vein was punctured just above the clavicle. After obtaining venous return a thin guidewire was advanced through the needle and needle withdrawn. A 5 [place] dilator was placed and the entire unit was anchored to the drape with hemostat. Approximately 1 gauze length away from the left neck incision along the left anterior chest wall one percent lidocaine was administered. A small skin incision was performed and trial for placement of port was performed following blunt dissection. Deep to adipose tissue 1% lidocaine was administered from the anterior chest wall incision to the left mid neck incision. A tunneler attached to the port catheter was then tunneled blindly from the lung that the chest wall incision and pulled through the left neck incision. The tunneler was removed and the catheter was sized and accordingly. The port was flushed with saline to confirm patency. At the neck the thin guidewire was removed and a 0.035 J-wire was advanced under fluoroscopy and placed in IVC. The 5 [place] catheter was then exchanged for a syringe dilator with peel-away sheath over the guidewire. The guidewire and the dilator was removed and the precise permacatheter was inserted through the peel-away sheath. A single image was obtained documenting position the catheter the port. The pocket along the left anterior chest wall was flushed with antibiotic solution. The anterior chest wall incision over the port was then sutured with absorbable skin and deep subcutaneous soft tissue sutures. Sterile dressing applied postprocedure both the neck and and the chest wall following applying Dermabond. Patient targeted procedure extremely well. All elements of maximal sterile barrier technique followed including use of cap, mask, sterile gown, sterile gloves, a sterile full body drape and hand hygiene. Also followed skin preparation with 2% chlorhexidine for cutaneous antisepsis, and sterile ultrasound preparation with sterile gel and probe cover when applicable. Conscious sedation was utilized during exam and patient monitored by nurse and IR physician. FINDINGS: Preliminary ultrasound imaging there is widely patent left jugular vein. Approximately 6 [place] 26 cm long slim port was inserted through a left jugular approach. There were no immediate complications or bleeding seen. IR/IR cvc insert tunnel w prt/learning disabilities specialist IMPRESSION: Successful ultrasound and fluoroscopy-guided placement of a left 6.6 [place]ese 23 seen along the left Port-A-Cath without immediate comp occasions. The PORT is ready to use. Fluoroscopy time: 0.6 minutes. Dose: 1.7 mGy/ cm. Electronically signed by: Jimmy Pedroza MD 03/30/2025 10:42 AM [facility] Dictated By: Jimmy Pedroza MD Signed By: <Electronically signed by Jimmy Pedroza MD in OV> 03/30/25 1042 DD/ 0820 TD/TT: 03/16/25 1040 Transport Technician: [facility] Procedure Note Donotuseinterpreter, Image - 03/30/[address] [address] Interventional Radiology Rpt Signed Patient: Harriet ValdezMR#: [id number] : 1970Acct:[id number] Age/Sex: 55 / FADM Date: 03/16/25 Loc: HO.SSS Attending Dr: Vern Fuentes MD Ordering Physician: Vern Fuentes MD Date of Service: 03/16/25 Procedure(s): IR cvc insert tunnel w prt/learning disabilities specialist Accession Number(s): [id number] cc: Emilie Davis MD; Vern Fuentes MD Reason for Exam: Pancreatic cancer. PROCEDURE: IR INSERTION OF TUNNEL CATHETER/PORT CLINICAL INFORMATION: Pancreatic cancer. Port catheter for chemotherapy.. COMPARISON: None available. TECHNIQUE: Following explaining ultrasound and fluoroscopy-guided placement of a left portacatheter procedure, benefits and risk, a written consent was obtained. Patient was placed supine and preliminary ultrasound imaging was performed through the left neck. An optimal site was selected along the left neck and marked. 1% lidocaine was administered puncture site. Undersurface guidance a singlewall needle was advanced and left jugular vein was punctured just above the clavicle. After obtaining venous return a thin guidewire was advanced through the needle and needle withdrawn. A 5 [place]ese dilator was placed and the entire unit was anchored to the drape with hemostat. Approximately 1 gauze length away from the left neck incision along the left anterior chest wall one percent lidocaine was administered. A small skin incision was performed and trial for placement of port was performed following blunt dissection. Deep to adipose tissue 1% lidocaine was administered from the anterior chest wall incision to the left mid neck incision. A tunneler attached to the port catheter was then tunneled blindly from the lung that the chest wall incision and pulled through the left neck incision. The tunneler was removed and the catheter was sized and accordingly. The port was flushed with saline to confirm patency. At the neck the thin guidewire was removed and a 0.035 J-wire was advanced under fluoroscopy and placed in IVC. The 5 [place]ese catheter was then exchanged for a syringe dilator with peel-away sheath over the guidewire. The guidewire and the dilator was removed and the precise permacatheter was inserted through the peel-away sheath. A single image was obtained documenting position the catheter the port. The pocket along the left anterior chest wall was flushed with antibiotic solution. The anterior chest wall incision over the port was then sutured with absorbable skin and deep subcutaneous soft tissue sutures. Sterile dressing applied postprocedure both the neck and and the chest wall following applying Dermabond. Patient targeted procedure extremely well. All elements of maximal sterile barrier technique followed including use of cap, mask, sterile gown, sterile gloves, a sterile full body drape and hand hygiene. Also followed skin preparation with 2% chlorhexidine for cutaneous antisepsis, and sterile ultrasound preparation with sterile gel and probe cover when applicable. Conscious sedation was utilized during exam and patient monitored by nurse and IR physician. FINDINGS: Preliminary ultrasound imaging there is widely patent left jugular vein. Approximately 6 [place] 26 cm long slim port was inserted through a left jugular approach. There were no immediate complications or bleeding seen. IR/IR cvc insert tunnel w prt/learning disabilities specialist IMPRESSION: Successful ultrasound and fluoroscopy-guided placement of a left 6.6 [place]ese 23 seen along the left Port-A-Cath without immediate comp occasions. The PORT is ready to use. Fluoroscopy time: 0.6 minutes. Dose: 1.7 mGy/ cm. Electronically signed by: Jimmy Pedroza MD 03/30/2025 10:42 AM EST Dictated By: Jimmy Pedroza MD Signed By: <Electronically signed by Jimmy Pedroza MD in OV> 03/30/25 1042 DD/ 0820 TD/TT: 03/16/25 1040 Transport Technician: MADINA [facility] External Provider IMG IR PROCEDURES Final Result * Prothrombin Time-INR (03/16/2025 7:45 AM EST) Only the most recent of2 resultswithin the time period is included. Prothrombin Time 11.4 10.9 - 12.4 SEC [facility] INTERNATIONAL NORM RATIO 1.0 0.9 - 1.1 [facility] Comment:INTERNATIONAL NORMAL IZED RATIO (INR) [...] ORDERAB LES Final Result Performing Organization Address City/State/[facility] Co de Phone Number [facility] [address] [place] [address] [phone] * Lower Extremity Venous Duplex (02/25/2025 3:27 PM EDT) 02/25/2025 3:27 PM EDT Narrative [facility] - 02/25/2025 3:48 PM EDT [address] [address] Ultrasound Report Signed Patient: Harriet Valdez MR#: [id number] : 1970 Acct:[id number] Age/Sex: 55 / F ADM Date: 02/25/25 Loc: . Attending Dr: Ann-Marie Muhammad MD Ordering Physician: Ann-Marie Muhammad MD Date of Service: 02/25/25 Procedure(s): US venous duplex [facility] Accession Number(s): [id number] cc: Emilie Davis MD; Ann-Marie Muhammad MD [...] 02/25/25 1546 DD/ 1527 TD/TT: 02/25/25 1537 Transport Technician: Procedure Note Donotuseinterpreter, Image - 02/25/2025 [place] [address] Ultrasound Report Signed Patient: Harriet ValdezMR#: [id number] : 1970Acct:[id number] Age/Sex: 55 / FADM Date: 02/25/25 Loc: .US Attending Dr: Ann-Marie Muhammad MD Ordering Physician: Ann-Marie Muhammad MD Date of Service: 02/25/25 Procedure(s): US venous duplex LE LT Accession Number(s): [id number] cc: Emilie Davis MD; Ann-Marie Muhammad MD [...] 02/25/25 1546 DD/ 1527 TD/TT: 02/25/25 1537 Transport Technician: us Ann-Marie Muhammad MD CV VASCULAR PROCEDURES Final Result [facility] [address] [place] [phone] * XR Tibia Fibula 2 Views Left (02/25/2025 3:14 PM EDT) Anatomical Region Laterality Modality Lower Extremities, Lower Leg Left Rad iographic Imaging 02/25/2025 3:14 PM EDT Narrative 02/25/2025 3:28 PM EDT [address] [address] XRay Report Signed Patient: Harriet Valdez MR#: [id number] : 1970 Acct:[id number] Age/Sex: 55 / F ADM Date: 02/25/25 Loc: . Attending Dr: Ann-Marie Muhammad MD Ordering Physician: Ann-Marie Muhammad MD Date of Service: 02/25/25 Procedure(s): XR tibia fibula LT 2V Accession Number(s): [id number] cc: Emilie Davis MD; Ann-Marie Muhammad MD [...] OV> 02/25/25 1525 DD/ 1514 TD/TT: 02/25/25 152 Transport Technician: Procedure Note Donotuseinterpreter, Image - 02/25/[address] [address] XRay Report Signed Patient: Harriet ValdezMR#: [id number] : 1970Acct:[id number] Age/Sex: 55 / FADM Date: 02/25/25 Loc: HO.US Attending Dr: Ann-Marie Muhammad MD Ordering Physician: Ann-Marie Muhammad MD Date of Service: 02/25/25 Procedure(s): XR tibia fibula LT 2V Accession Number(s): [id number] cc: Emilie Davis MD; Ann-Marie Muhammad MD [...] 02/25/25 1525 DD/ 1514 TD/TT: 02/25/25 1521 Transport Technician: Ann-Marie Muhammad MD IMG XR PROCEDURES Final Resul t * CT Chest w/ Contrast (02/23/2025 2:19 PM EDT) Anatomical Region Laterality Modality Body, Chest Computed Tomogra phy Historical Provider IMG CT PROCEDURES Final R esult * (ABNORMAL) Lactate Dehydrogenase (LD) (02/18/2025 3:28 PM EDT) Lactate Dehydrogenase 743(H) 122 - 220 U/L [facility] 02/18/2025 3:28 PM EDT 02/18/2025 3:28 PM EDT us Generic External Data Provider LAB BLOOD ORDERAB LES Final Result Performing Organization Address [facility] Co de Phone Number [facility] [address] [place] [phone] * (ABNORMAL) Amylase (02/18/2025 3:28 PM EDT) Only the most recent of2 resultswithin the time period is included. Amylase 113(H) 28 - 100 U/L [facility] 02/18/2025 3:28 PM EDT 02/18/2025 3:28 PM EDT Generic External Data Provider LAB BLOOD ORDERAB LES Final Result Performing Organization Address [facility] de Phone Number [facility] [address] [place] [phone] * EGD (02/18/2025 2:59 PM EDT) Anatomical Region Laterality Modality Endoscopy us Historical Provider ENDOSCOPY PROCEDURE ORDER TATUM Final Result * MR Lumbar Spine w/o Contrast (02/09/2025 6:20 PM EDT) Anatomical Region Laterality Modality Spine, L-spine Magnetic Resonan ce 02/09/2025 6:20 PM EDT Narrative 02/10/2025 7:18 AM EDT [address] [address] Magnetic Resonance Report Signed Patient: Harriet Valdez MR#: [id number] : 1970 Acct:[id number] Age/Sex: 54 / F ADM Date: 02/09/25 Loc: HO.MRI Attending Dr: Nakul Velasco MD Ordering Physician: Nakul Velasco MD Date of Service: 02/09/25 Procedure(s): MR lumbar spine wo con Accession Number(s): [id number] cc: Emilie Davis MD; Nakul Velasco MD [...] 02/10/25 0715 DD/ 182 TD/TT: 02/09/25 1845 Transport Technician: Procedure Note Donotuseinterpreter, Image - 02/10/2025 [place] [address] Magnetic Resonance Report Signed Patient: Harriet Valdez#: [id number] : 1970Acct:[id number] Age/Sex: 54 / FADM Date: 02/09/25 Loc: HO.MRI Attending Dr: Nakul Velasco MD Ordering Physician: Nakul Velasco MD Date of Service: 02/09/25 Procedure(s): MR lumbar spine wo con Accession Number(s): [id number] cc: Emilie Davis MD; Nakul Velasco MD [...] 02/10/25 0715 DD/ 1820 TD/TT: 02/09/25 1845 Transport Technician: [facility] External Provider IMG MRI PROCEDURES Final Result * (ABNORMAL) CA 19-9 (02/01/2025 11:57 AM EDT) CA 19-9 671(A) <34 U/mL [facility] Comment:This test was perfor med using the Siemenschemiluminescent method. Values obtained fromdifferent assay methods cannot be usedinterchangeably. CA 19-9 levels, regardless ofvalue, should not be interpreted as absoluteevidence of the presence or absence of disease.THIS TEST WAS PERFORMED AT:[facility] [address] [phone] MALDONADO MD 02/01/2025 11:5 7 AM EDT 02/01/2025 11:57 AM EDT us Generic External Data Provider LAB BLOOD ORDERAB LES Final Result Performing Organization Address [facility]/ZIP Co de Phone Number [facility] [address] [place] [phone] * HIV-1 RNA, Quantitative, Real-Time PCR (02/01/2025 11:57 AM EDT) Only the most recent of2 resultswithin the time period is included. HIV RNA PCR Qn Copies NOT DETECTED NOT DETECTED copies/mL [facility] HIV RNA PCR Qn Log Copies NOT DETECTED NOT DETECTED [facility] Comment:Result Units: Log co pies/mLThis test was performed using Real-Time Polymerase ChainReaction.Reportable Range: 20 copies/mL to 10,000,000 copies/mL(1.30 log copies/mL to 7.00 log copies/mL).THIS TEST WAS PERFORMED AT:[facility] [place] [phone] MALDONADO MD 02/01/2025 11:5 7 AM EDT 02/01/2025 11:57 AM EDT Emilie Davis MD LAB BLOOD ORDERABLES Final Result Performing Organization Address City/[facility]/ZIP Co de Phone Number [facility] [address] [place] [phone] * Homocysteine (02/01/2025 11:57 AM EDT) Homocysteine 7.4 < or = 13.4 umol/L [facility] Comment:Homocysteine is incr eased by functional deficiency offolate or vitamin B12. Testing for methylmalonic aciddifferentiates between these deficiencies. Other causesof increased homocysteine include renal failure, folateantagonists such as methotrexate and phenytoin, andexposure to nitrous oxide.Salvador Stevens, et al., [employer]. 1999;131(5):331-9.THIS TEST WAS PERFORMED AT:[facility] [place] [phone] MALDONADO MD 02/01/2025 11:5 7 AM EDT 02/01/2025 11:57 AM EDT Generic External Data Provider LAB BLOOD ORDERAB LES Final Result [facility] [address] [place] [phone] * POCT Rapid HIV Screening (01/27/2025 1:50 PM EDT) Blood 01/27/2025 1:50 PM EDT Narrative Medina Lewis RN - 01/27/2025 1:50 PM EDT negative Emilie Davis MD POINT OF CARE TEST ENTER/E DIT ORDERABLES Final Result * Chlamydia/Gonorrhea Throat Swab ([facility]) (01/27/2025) Chlamydia Throat Swab Negative Gonorrhea Throat Swab Negative Swab 01/27/2025 Historical Provider LAB MICROBIOLOGY - GENERA L ORDERABLES Final Result * MR Abdomen w/ and w/o Contrast (01/20/2025 4:03 PM EDT) Anatomical Region Laterality Modality Abdomen Magnetic Resonan ce 01/20/2025 4:03 PM EDT Narrative 01/20/2025 4:05 PM EDT [address] [address] Magnetic Resonance Report Signed with Addenda Patient: Harriet Valdez MR#: [id number] : 1970 Acct:[id number] Age/Sex: 54 / F ADM Date: 01/19/25 Loc: HO.MRI Attending Dr: Cha Mills MD Ordering Physician: Cha Mills MD Date of Service: 01/19/25 Procedure(s): MR abdomen wo/w con Accession Number(s): [id number] cc: Emilie Davis MD; Cha Mills MD [...] bile duct dilatation, concerning for malignancy. Recommend car lubricator consultation, ERCP and tissue sampling. 2. Subcentimeter right hepatic hemangioma and cyst. 3. Diverticulosis coli. This document has been electronically signed by: Yumiko Jones MD on 01/20/2025 16:03:51 Dictated By: Yumiko Jones MD Signed By: <Electronically signed by Yumiko Jones MD in OV> 01/20/25 1605 DD/ 160 TD/TT: 01/20/25 160 Transport Technician: Procedure Note Donotuseinterpreter, Image - 01/20/2025 [place] [address] Magnetic Resonance Report Signed with Addenda Patient: Harriet ValdezMR#: [id number] : 1970Acct:[id number] Age/Sex: 54 / FADM Date: 01/19/25 Loc: HO.MRI Attending Dr: Cha Mills MD Ordering Physician: Cha Mills MD Date of Service: 01/19/25 Procedure(s): MR abdomen wo/w con Accession Number(s): [id number] cc: Emilie Davis MD; Cha Mills MD [...] bile duct dilatation, concerning for malignancy. Recommend car lubricator consultation, ERCP and tissue sampling. 2. Subcentimeter right hepatic hemangioma and cyst. 3. Diverticulosis coli. This document has been electronically signed by: Yumiko Jones MD on 01/20/2025 16:03:51 Dictated By: Yumiko Jones MD Signed By: <Electronically signed by Yumiko Jones MD in OV> 01/20/25 1605 DD/ 160 TD/TT: 01/20/25 160 Transport Technician: [facility] External Provider IMG MRI PROCEDURES Edited Result - Final * Hematoxylin and Eosin Stain (01/15/2025 3:32 PM EDT) 01/15/2025 3:32 PM EDT 01/18/2025 7:08 AM EDT [facility] - 01/19/2025 12:19 PM EDT ----- ------- Name: Harriet Valdez Age/Sex: 54/F : 1970 Unit#: [id number] Attend Dr: Mary Alice Mayorga MD Re01/15/[address] [facility] Location: [facility] Disch: ----- ------- SPEC : [id number] RECD: 01/18/25 STATUS: JANIE DUNLAP NUM: [id number] AMBREEN: 01/15/25 [facility] DR: Mary Alice Mayorga MD ENTERED: 01/18/25 [...] developed and their performance characteristics determined by [facility]. They have not been cleared or approved by the U.S. Food and Drug Administration (FDA). However, the FDA CONTINUED ON NEXT PAGE ----- ------- Name: Harriet Valdez Age/Sex: 54/F : 1970 Unit#: [id number] Attend Dr: Mary Alice Mayorga MD Re01/15/25 Status: [facility] Location: [facility] Disch: ----- ------- SPEC : [id number] RECD: 01/18/25 STATUS: JANIE DUNLAP NUM: [id number] AMBREEN: 01/15/25-1531 [facility] DR: Mary Alice Mayorga MD ENTERED: 01/18/25 [...] laboratory testing. Copies To: Emilie Davis MD [address] [address] Mary Alice Mayorga MD [facility] [address] [place] [id number] ----- ------- Signed (signature on file) Yara Dodson MD 01/19/25 1219 ----- ------- END OF REPORT us Generic External Data Provider LAB BLOOD ORDERAB LES Final Result [facility] [address] [place] [phone] * FL Esophagus Barium Swallow (01/14/2025 9:40 AM EDT) Anatomical Region Laterality Modality Head, Neck Radiographic Aurora ging 01/14/2025 9:40 AM EDT Narrative 01/14/2025 11:23 AM EDT [address] [address] Fluoroscopy Report Signed Patient: Harriet Valdez MR#: [id number] : 1970 Acct:[id number] Age/Sex: 54 / F ADM Date: 01/14/25 Loc: MARINO Attending Dr: Aida ASH Ordering Physician: Aida Orozco Date of Service: 01/14/25 Procedure(s): FL barium swallow Accession Number(s): [id number] cc: Emilie Davis MD; Aida Orozco Reason [...] in OV> 01/14/25 1120 DD/ 9 TD/TT: 01/14/2555 Transport Technician: [facility] Procedure Note Donotuseinterpreter, Image - 01/14/2025 [place] [address] Fluoroscopy Report Signed Patient: Harriet Valdez#: [id number] : 1970Acct:[id number] Age/Sex: 54 / FADM Date: 01/14/25 Loc: HO.XRAY Attending Dr: Aida ASH Ordering Physician: Aida Orozco Date of Service: 01/14/25 Procedure(s): FL barium swallow Accession Number(s): [id number] cc: Emilie Davis MD; Aida Orozco Reason [...] 01/14/25 1120 DD/ 9 TD/TT: 01/14/25 0955 Transport Technician: MADINA [facility] External Provider IMG FLU OROSCOPY PROCEDURES Final Result * XR Abdomen 2 View minimum (01/08/2025 10:50 AM EDT) Anatomical Region Laterality Modality Abdomen Radiographic Aurora ging 01/08/2025 10:5 0 AM EDT Narrative 01/08/2025 12:26 PM EDT [place] [address] XRay Report Signed Patient: Harriet Valdez MR#: [id number] : 1970 Acct:[id number] Age/Sex: 54 / F ADM Date: 01/08/25 Loc: HO.ABIGAIL Attending Dr: Aida ASH Ordering Physician: Aida Orozco Date of Service: 01/08/25 Procedure(s): XR abdomen min 2V Accession Number(s): [id number] cc: Emilie Davis MD; Aida Orozco EXAMINATION: [...] 01/08/25 1223 DD/ 1050 TD/TT: 01/08/25 1057 Transport Technician: Procedure Note Donotuseinterpreter, Image - 01/08/2025 [place] [address] XRay Report Signed Patient: Harriet ValdezMR#: [id number] : 1970Acct:[id number] Age/Sex: 54 / FADM Date: 01/08/25 Loc: HO.ABIGAIL Attending Dr: Aida ASH Ordering Physician: Aida Orozco Date of Service: 01/08/25 Procedure(s): XR abdomen min 2V Accession Number(s): [id number] cc: Emilie Daivs MD; Aida Orozco EXAMINATION: XR ABDOMEN 2 [...] 01/08/25 1223 DD/ 1050 TD/TT: 01/08/25 1057 Transport Technician: [facility] External Provider IMG XR PROCEDURES Edited Result - Final * (ABNORMAL) VITAMIN D 25-OH (D2 AND D3) (01/08/2025 10:47 AM EDT) Vitamin D, 25-OH, D2 <4 ng/mL [facility] Comment:This test was develo ped and its analytical performancecharacteristics have been determined by [employer] [place], [place]. It hasnot been cleared or approved by the .S. Food and DrugAdministration. This assay has been validated pursuantto the CLIA regulations and is used for clinicalpurposes.THIS TEST WAS PERFORMED AT:[facility] [id number] [place] [address]EURPMWAMARCI ESTEVEZ MD,PHD Vitamin D, 25-OH, D3 28 ng/mL [facility] Comment:This test was develo ped and its analytical performancecharacteristics have been determined by [employer] [place], [place]. It hasnot been cleared or approved by the U.S. Food and DrugAdministration. This assay has been validated pursuantto the CLIA regulations and is used for clinicalpurposes. Vitamin D, 25-OH, Total 28(A) 30 - 100 ng/mL [facility] Comment:Vitamin D, 25-Hydrox y reports [...] = 30 ng/mL.For additional information, please refer tohttp://education.[employer]/faq/XFY921(This link is being provided for informational/educational purposes only.) 01/08/2025 10:4 7 AM EDT 01/08/2025 10:47 AM EDT Generic External Data Provider LAB BLOOD ORDERAB LES Final Result Performing Organization Address [facility] Co de Phone Number [facility] [address] [place] [phone] * Sed Rate by Modified Westergren (01/08/2025 10:47 AM EDT) Pathologist [facility] Erythrocyte Sedimentation Rate 9 0 - 20 MM/HR [facility] Comment:Patients with polycy themia and many hemoglobin abnormalitiesmay have depressed sed rates whereas patients with anemiamay have elevated sed rates. 01/08/2025 10:4 7 AM EDT 01/08/2025 10:47 AM EDT Generic External Data Provider LAB BLOOD ORDERAB LES Final Result Performing Organization Address [facility] de Phone Number [facility] [address] [place] [phone] * C-reactive Protein (01/08/2025 10:47 AM EDT) Pathologist [facility] C Reactive Protein <0.10 < or = 0.50 mg/dL [facility] 01/08/2025 10:4 7 AM EDT 01/08/2025 10:47 AM EDT Generic External Data Provider LAB BLOOD ORDERAB LES Final Result Performing Organization Address [facility] Co de Phone Number [facility] [address] [place] [phone] * (ABNORMAL) Lipid Panel, Standard (07/24/2024 1:36 PM EDT) Triglycerides 141 <150 mg/dL [facility] Comment:Desirable Triglyceri de: less than 150 mg/dLBorderline High Triglyceride 150-199 mg/dLHigh Triglyceride: 200-499 mg/dLVery High Triglyceride: greater than or equal to 5OO mg/dL Cholesterol 205(H) <200 mg/dL [facility] Comment:Desirable Cholestero l: less than 200 mg/dLBorderline High Cholesterol: 200-239 mg/dLHigh Cholesterol: greater than 239 mg/dL LDL Cholesterol Calculated 114(H) <100 mg/dL [facility] Comment:Desirable LDL: less than 100 mg/dLNear Optimal/Above Optimal LDL: 110- 129 mg/dLBorderline High LDL: 130-159 mg/dLHigh LDL: 160-189 mg/dLVery High LDL: greater than or equal to 190 mg/dL HDL Cholesterol 63 >40 mg/dL [facility] Comment:Desirable HDL: great er than 40 mg/dL Note: This HDL assay may give artificially low results in patients with liver disease. 07/24/2024 1:36 PM EDT 07/24/2024 4:20 PM EDT us Generic External Data Provider LAB BLOOD ORDERAB LES Final Result [facility] [address] [place] [phone] * HPV mRNA E6/E7 w/Reflex to HPV Genotypes 16, 18/45 (03/22/2023 11:30 AM EST) HPV nRNA E6/E7 Not Detected Not Detected [facility] Comment:Methodology: Transcr iption-Mediated AmplificationThis assay detects E6/E7 viral messenger RNA (mRNA) from 14high-risk HPV types (16,18,31,33,35,39,45,51,52,56,58,59,66,68).Cervical sources are required for HPV testing.If a vaginal source from a patient who has had atotal hysterectomy with removal of cervix wassubmitted, please contact the testing laboratoryfor alternative testing options.For additional information, please refer tohttp://education.[employer]/faq/LMZ916a5(This link if provided for information/educational purposes only.)THIS TEST WAS PERFORMED AT:[employer] [facility] [place] [phone] MALDONADO MD HPV mRNA E6/E7 TNP [facility] HPV 16 RNA TNP [facility] HPV 18/45 RNA TNP [facility] 03/22/2023 11:3 0 AM EST 03/25/2023 12:20 PM EST us Emilie Davis MD LAB CYTOLOGY ORDERABLES Fi nal Result [facility] [address] [place] [address] [phone] * Pap Smear (03/22/2023 11:30 AM EST) 03/22/2023 11:3 0 AM EST 03/25/2023 12:20 PM EST Narrative [facility] - 04/11/2023 11:26 AM EST ----- ------- Name: Harriet Valdez Age/Sex: 53/F : 1970 Unit#: [id number] Attend Dr: RADHA VILLAREAL MD Re03/22/23 Status: DEP REF Location: HO.HHCLNP Disch: ----- ------- SPEC : [id number] RECD: 03/25/23 STATUS: JANIE DUNLAP NUM: [id number] AMBREEN: 03/22/23-1130 [facility] DR: Emilie Davis MD ENTERED: 03/25/239028 SP TYPE: Pap Smr OTHR DR: ORDERED: Pap Smear Interpretation Satisfactory for evaluation. Negative for intraepithelial lesion or malignancy. HPV mRNA E6/E7: NOT DETECTED This assay detects E6/E7 viral messenger RNA (mRNA) from 14 high-risk HPV types (16, 18, 31, 33, 35, 39, 45, 51, 52, 56, 58, 59, 66, 68) HPV testing performed by [facility], [place], [place]. See reference laboratory portion of the EMR for entire report. Clinical Information LMP: Unknown date Previous PAP test: Unknown date, WNL Other history: Pt on testosterone, surgical post menopause Material Received ThinPrep-Cervical ----- ------- Signed (signature on file) SERENA Alejandro (ASCP) 04/11/23 1126 ----- ------- END OF REPORT Emilie Davis MD LAB CYTOLOGY ORDERABLES Fi nal Result [facility] [address] [place] [address] [phone] * Colonoscopy (01/30/2018) Colonoscopy normal us Historical Provider HEALTH MAINTENANCE Final Result from Last 3 Months or Most Recently Relevant to Health Maintenance Insurance [employer] 3 Advance Directives Documents on File Type Date Recorded 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 Advance Directives and Living Will 03/16/2024 Health Care Proxy 03/16/24 Care Teams 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 Builder 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
--- OUTSIDE RECORDS SUMMARY | 2025-04-01 04:43 | XMS_ITS | Encounter Summary ---
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 [address] [place] [address] Gagandeep, Merissa, OD [address] [place] [address] documented as of this encounter Visit Diagnoses Not on filedocumented in this encounter Additional Health Concerns Assessment Noted Time PHQ-9 Depression Total Score: 9 03/03/20 25 4:53 PM EDT documented as of this encounter Care Teams Laundry Folder Relationship Specialty Start Date End Date Emilie Davis MD 230 [place] [address] PCP - General Family Medicine 05/13/18August [address] [place] [address] Gastroenterology 05/26/24 Fred Castanon [address] [place] [address] Cardiology 07/21/24 Ele Mar MD [address] [place] [address] Hematology and Oncology 02/22/25 Marina Brown MD Rheumatology 02/10/25 Costa Miller MD Attending Hepatobiliary & Pancreatic Surgeon Division of Surgical Oncology [facility] Surgical Oncology 03/11/25 documented as of this encounter
--- OUTSIDE RECORDS SUMMARY | 2025-04-01 04:43 | XMS_ITS | Encounter Summary ---
Author Organization [employer] Address 75 [facility] 7t [place] [address] Care Team Providers Care Military Logistics Specialist Name Role Phone Emilie Davis MD Primary Care Provider [phone] Morales Echavarria Unavailable Unavailable August Unavailable Fred Castanon Unavailable Ele Mar MD Unavailable [phone] Encounter Details Date Type Department Care Team (Late Contact Info) Description 11/28/2022 Abstract [facility] [address] [place] [address] Emilie Davis MD [address] [place] [address] Social History Tobacco Use Types Packs/Day Years [...] Department Care Team (Late Contact Info) Description 06/04/2025 3:00 PM EST Office Visit [facility] OPT[facility] [address] [place] [address] Merissa Donis OD [address] [place] [address] documented as of this encounter Visit Diagnoses Not on filedocumented in this encounter Additional Health Concerns Assessment Noted Time PHQ-9 Depression Total Score: 19 023 9:24 AM EDT documented as of this encounter Care Teams Military Logistics Specialist Relationship Specialty Start Date End Date Emilie Davis MD [address] [place] [address] PCP - General Family Medicine 05/13/18 Morales Echavarria FNP [address] [place] [address] Nurse Practitioner Family Medicine 04/16/23 03/10/25 Aida Orozco [address] [address] Gastroenterology 05/26/24 Fred Castanon [address] [place] [address] Cardiology 07/21/24 Ele Mar MD [address] [place] [address] Hematology and Oncology 02/22/25 Marina Brown MD Rheumatology 02/10/25 Costa Miller MD Attending Hepatobiliary & Pancreatic Surgeon Division of Surgical Oncology [facility] Surgical Oncology 03/11/25 documented as of this encounter
--- OUTSIDE RECORDS SUMMARY | 2025-04-01 04:43 | XMS_ITS | Encounter Summary ---
Author Organization [employer] Address 75 [facility] 7t [place] [address] Care Team Providers Care Soaking Pits Supervisor Name Role Phone Emilie Davis MD Primary Care Provider [phone] Morales Echavarria WEAVING LOOM OPERATOR Unavailable Unavailable August Unavailable Fred Castanon Unavailable Ele Mar MD Unavailable [phone] Encounter Details Date Type Department Care Team (Late Contact Info) Description 04/22/2022 Orders Only [facility] MED & PEDS [address] [place], [place] [phone] Emilie Davis MD 230 [place], [place] [phone] HSV (herpes simplex virus) anogenital infection (Primary [...] Description 06/04/2025 3:00 PM EST Office Visit [facility] OPTOMETRY [address] [place], [place] [phone] Gagandeep, Merissa, OD [address] [place], [place] [phone] documented as of this encounter Visit Diagnoses Diagnosis HSV (herpes simplex virus) anogenital infection- Primary Herpes simplex without mention of complication documented in this encounter Care Teams Soaking Pits Supervisor Relationship Specialty Start Date End Date Emilie Davis MD [address] [place] [address] PCP - General Family Medicine 05/13/18 Morales Echavarria FNP [address] [place] [address] Nurse Practitioner Family Medicine 04/16/23 03/10/25August [address] [place] [address] Gastroenterology 05/26/24 Fred Castanon [address] [place] [address] Cardiology 07/21/24 Ele Mar MD [address] [place] [address] Hematology and Oncology 02/22/25 Marina Brown MD Rheumatology 02/10/25 Costa Miller MD Attending Hepatobiliary & Pancreatic Surgeon Division of Surgical Oncology [facility] Surgical Oncology 03/11/25 documented as of this encounter
--- OUTSIDE RECORDS SUMMARY | 2025-04-01 04:43 | XMS_ITS | Encounter Summary ---
Author Organization [employer] Address 75 [facility] 7t [place] [address] Care Team Providers Care Field Tech Name Role Phone Emilie Davis MD Primary Care Provider [phone] Morales Echavarria Unavailable Unavailable August Unavailable Fred Castanon Unavailable Ele Mar MD Unavailable [phone] Encounter Details Date Type Department Care Team (Late Contact Info) Description 05/27/[address] [facility] [address] [place] [address] Emilie Davis MD 230 [place] [address] Social History Tobacco Use Types Packs/Day Years [...] PM EST Office Visit [facility] OPTOMETRY [address] [place], [place] [phone] Merissa Donis, OD 230 [place] [address] documented as of this encounter Procedures Procedure [...] [facility]/ZIP Co de Phone Number [facility] [address] [place] [address] [phone] documented in this encounter Visit Diagnoses Not on filedocumented in this encounter Care Teams Field Tech Relationship Specialty Start Date End Date Emilie Davis MD [address] [place] [address] PCP - General Family Medicine 05/13/18 Morales Echavarria FNP [address] [place] [address] Nurse Practitioner Family Medicine 04/16/23 03/10/[address] [place] [address] Gastroenterology 05/26/24 Fred Castanon [address] [place] [address] Cardiology 07/21/24 Ele Mar MD [address] [place] [address] Hematology and Oncology 02/22/25 Marina Brown MD Rheumatology 02/10/25 Costa Miller MD Attending Hepatobiliary & Pancreatic Surgeon Division of Surgical Oncology [facility] Surgical Oncology 03/11/25 documented as of this encounter
--- OUTSIDE RECORDS SUMMARY | 2025-04-01 04:43 | XMS_ITS | Clinical Summary ---
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) 03/30/2025 Orders Only [facility] General & Gastrointestinal Surgery [address] [facility], 4th Floor, [address] [place] [address] Costa Miller MD Malignant neoplasm of pancreas, unspecified location of malignancy (Primary Dx) 03/09/2025 3:00 PM EDT Office Visit [facility] General & Gastrointestinal Surgery [address] [facility], 4th Floor, [address] [place] [address] Costa Miller MD 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) 03/08/2025 Ancillary Orders [facility] [address] [place] [address] Costa Miller MD 03/08/2025 Ancillary Orders [facility] [address] [place] [address] Costa Miller MD 03/04/2025 Ancillary Orders [facility] [address] [place] [address] Heriberto Tan MD 03/04/2025 Ancillary Orders [facility] [address] [place] [address] Heriberto Tan MD 02/23/2025 - 02/23/2025 11:59 PM EDT Hospital Encounter [facility] [address] [place] [address] Heriberto Tan MD Discharge Disposition: Home or Self Care 02/18/2025 - 02/18/2025 11:59 PM EDT Hospital Encounter [facility] [address] [place] [address] Heriberto Tan MD Discharge Disposition: Home or Self Care 01/19/2025 - 01/19/2025 11:59 PM EDT Hospital Encounter [facility] [address] [place] [address] Costa Miller MD Discharge Disposition: Home or [...] 08/25/2018 9:37 AM EDT Plan of Treatment Upcoming Encounters Date Type Department Care Team (Late st Contact Info) Description 03/30/2025 Procedure Pass [facility] [address] [facility], 6th [place] [address] 05/14/2025 8:30 AM EST Appointment [facility] [address] [facility], 6th [place] [address] Costa Miller MD [address] [place] [address] [email or web address] 05/14/2025 11:00 AM EST Office Visit [facility] [address] [facility], 7th Floor, [address] [place] [address] Costa Miller MD [address] [place] [address] [email or web address] Health Maintenance Due Date Last Done Comments [...] PCV) 09/17/2018 09/17/2017 INFLUENZA VACCINE (#1) 2024 0, 03/31/2018 COVID-19 [...] OR CONSULT Routine 01/19/2025 12:00 AM EDT from Last 3 Months Results * Outside Imaging Report Only (03/04/2025) us Scanning Interface Provider IMG XR CHEST Maida l Result * Outside Pathology (03/04/2025) us Scanning Interface Provider PATHOLOGY ORDERABLES Final Result * CT Chest Outside With Interpretation Or Consult (02/23/2025 12:00 AM EDT) 03/08/2025 8:59 AM EDT Impressions [facility] - 03/08/2025 9:05 AM EDT No metastatic disease to the thorax Narrative [facility] - 03/08/2025 9:[address] CHEST OUTSIDE WITH INTERPRETATION OR CONSULT Referring clinician's provided indication for this examination in [facility]: pancreatic cancer TECHNIQUE: Multidetector CT of the [...] pancreatic head/uncinate process mass is outside the [id number]-lb-[id number]. Please refer to report of CT abdomen dated 02/18/2025 for additional findings. Chest Wall: No chest wall mass. Bones: There are mild degenerative changes in the visualized spine. No suspicious lytic or blastic lesions. Procedure [facility]2025 CT CHEST OUTSIDE WITH [...] Known pancreatic head/uncinate process massis outside the [id number]-gm-pjxa. Please refer to report of CT abdomen dated1 for additional findings. Chest Wall: No chest wall mass. Bones: There are mild degenerative changes in the visualized spine. Nosuspicious lytic or blastic lesions. 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 Associated mild upstream bile duct dilation. Abutment of the SMV with mild narrowing. * No definite abdominopelvic metastases. * Region of enhancement involving the right gluteus brandon, possibly inflammatory, though warranting attention on follow-up as a mass lesion could appear similar. Narrative [facility] - 03/08/2025 1:[address] ABDOMEN/PELVIS OUTSIDE WITH INTERPRETATION OR CONSULT Referring clinician's provided indication for this examination in [facility]: pancreatic cancer TECHNIQUE: CT of the abdomen [...] COMPARISON: MRI ABDOMEN OUTSIDE WITH INTERPRETATION OR [id number] FINDINGS: Lower Chest: Calcified granulomas in the [...] OUTSIDE ZENIA GING W/ INTERPRETATION Final Result [facility] [address] [place] [address] * MRI Abdomen Outside With Interpretation Or Consult (01/19/2025 12:00 AM EDT) 03/08/2025 1:10 PM EDT Impressions [facility] - 03/08/2025 1:43 PM EDT * 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 Associated mild upstream bile duct dilation. Abutment of the upper SMV. * No definite abdominopelvic metastases. Narrative [facility] - 03/08/2025 1:43 PM EDT MRI ABDOMEN OUTSIDE WITH INTERPRETATION OR CONSULT Referring clinician's provided indication for this examination in [facility]: pancreatic cancer TECHNIQUE: MRI of the abdomen [...] clinician's provided indication for this examination in [facility]:pancreatic cancer TECHNIQUE: MRI of the abdomen was performed with and without intravenouscontrast. MRCP sequences were also interpreted. COMPARISON: CT ABDOMEN/PELVIS OUTSIDE WITH INTERPRETATION OR [id number] FINDINGS: Lower Chest: Unremarkable. Liver: No focal [...] OUTSIDE IMAGING W/ INTERPR ETATION Final Result [address] [address] from Last 3 Months Insurance [facility] PCP [facility] [place] [address] [employer]LLSENSE NON NSPG PCP [employer] NON NSPG PCP S[employer] NON NSPG PCP [employer] [facility] NON NSPG PCP S[employer] [facility] NON NSPG PCP S[employer] Rani [facility] [place] [id number] [place] [id number] Rani COLEMAN [facility] [place] [id number] Advance Directives For more information, please contact: [phone] (9AM - 5PM [facility], Saturday-Saturday) * Full Code (Presumed) (Latest Code Status on File) Date Activated Date Inactivated Comments 10/28/2018 9:51 AM 10/28/2018 7:25 PM Care Teams Six Color Press Operator Relationship Specialty Start Date End Date [place], Emilie Way MD [address] [place] [address] PCP - General Family Medicine 06/03/18 Additional Source Comments The information contained in this document represents components of the legal health record. It is not the complete legal health record.[facility]
--- OUTSIDE RECORDS SUMMARY | 2025-04-01 04:43 | XMS_ITS | Encounter Summary ---
Author Organization [employer] Address [address] [place] [address] 7t [place] [address] Care Team Providers Care Rf Design Engineer Name Role Phone Emilie Davis MD Primary Care Provider [phone] Morales Echavarria Unavailable Unavailable August Unavailable Fred Castanon Unavailable Ele Mar MD Unavailable [phone] Reason for Visit * Reason Comments Med Refill Encounter Details Date Type Department Care Team (Late Contact Info) Description 06/27/2022 Refill [facility] [address] [place] [address] Emilie Davis MD 230 [place], [place] [phone] Social History Tobacco Use Types Packs/Day Years [...] Description 06/04/2025 3:00 PM EST Office Visit [facility] OPTOMETRY [address] [place], [place] [phone] Merissa Donis, OD 230 [place] [address] documented as of this encounter Visit Diagnoses Not on filedocumented in this encounter Care Teams Rf Design Engineer Relationship Specialty Start Date End Date Emilie Davis MD [address] [place] [address] PCP - General Family Medicine 05/13/18 Morales Echavarria FNP [address] [place] [address] Nurse Practitioner Family Medicine 04/16/23 03/10/25 Aida Orozco [address] [place] [address] Gastroenterology 05/26/24 Fred Castanon [address] [place] [address] Cardiology 07/21/24 Ele Mar MD [address] [place] [address] Hematology and Oncology 02/22/25 Marina Brown MD Rheumatology 02/10/25 Costa Miller MD Attending Hepatobiliary & Pancreatic Surgeon Division of Surgical Oncology [facility] Surgical Oncology 03/11/25 documented as of this encounter
--- OUTSIDE RECORDS SUMMARY | 2025-04-01 04:43 | XMS_ITS | Encounter Summary ---
Author Organization [employer] Address 75 [facility] 7t [place] [address] Care Team Providers Care Screen Making Technician Name Role Phone Emilie Davis MD Primary Care Provider [phone] Morales Echavarria Unavailable Unavailable August Unavailable Fred Castanon Unavailable Ele Mar MD Unavailable [phone] Reason for Visit * Reason Onset Date Comments Referral 07/18/2022 Encounter Details Date Type Department Care Team (Late st Contact Info) Description 07/18/2022 Telephone [facility] [address] [place] [address] Emilie Davis MD [address] [place] [address] Referral Social History Tobacco Use Types Packs/Day [...] to [facility]. Please contact pt [phone] documented in this encounter Plan of Treatment Upcoming Encounters Date Type Department Care Team (Late st Contact Info) Description 06/04/2025 3:00 PM EST Office Visit [facility] OPTOMETRY [address] [place] [address] Merissa Donis, OD 230 [place] [address] documented as of this encounter Visit Diagnoses Not on filedocumented in this encounter Care Teams Screen Making Technician Relationship Specialty Start Date End Date Emilie Davis MD [address] [place] [address] PCP - General Family Medicine 05/13/18 Morales Echavarria FNP [address] [place] [address] Nurse Practitioner Family Medicine 04/16/23 03/10/25 Aida Orozco [address] [place] [address] Gastroenterology 05/26/24 Fred Castanon [address] [place] [address] Cardiology 07/21/24 Ele Mar MD [address] [place] [address] Hematology and Oncology 02/22/25 Marina Brown MD Rheumatology 02/10/25 Costa Miller MD Attending Hepatobiliary & Pancreatic Surgeon Division of Surgical Oncology [facility] Surgical Oncology 03/11/25 documented as of this encounter
--- OUTSIDE RECORDS SUMMARY | 2025-04-01 04:43 | XMS_ITS | Encounter Summary ---
Author Organization [facility] Address [address] [place] [address] Phone Care Team Providers Care Transplant Registered Nurse Name Role Phone Burt, Emilie Way MD Primary Care Provi [facility] Reason for Referral * MRI/CAT Scan - New Request Specialty Diagnoses / Procedures Referred By Contdulce maria lin Referred To Contact Radiology Diagnoses Malignant neoplasm of pancreas, unspecified location of malignancy Procedures CT Abdomen/Pelvis Costa Miller MD [address] [place] [address] Phone: tel: fax: [email or web address] Referral ID Status Reason Start Date Expiration Date V isits Requested Visits Authorized [id number] New Request 03/30/2025 1 1 Encounter Details Date Type Department Care Team (Latest Contact Info) Description 03/30/2025 Orders Only [facility] General & Gastrointestinal Surgery [address] [place] [address], 4th Floor, [address] [place] [address] Costa Miller MD [address] [place] [address] [email or web address] Malignant neoplasm of pancreas, unspecified location of malignancy (Primary Dx) Social History Tobacco Use Types [...] st Contact Info) Description 03/30/2025 Procedure Pass [facility] - CT [address] [facility], 6th [place] [address] 05/14/2025 8:30 AM EST Appointment [facility] - CT [address] [facility], 6th [place] [address] Costa Miller MD [address] [place] [address] [email or web address] 05/14/2025 11:00 AM EST Office Visit [facility] [address] [facility], 7th Floor, [address] [place] [address] Costa Miller MD [address] [place] [address] [email or web address] Scheduled Orders Name Type Priority Associated Diagnoses Orde r Schedule CT Abdomen/Pelvis Imaging Routine Malignant neoplasm of pancreas, unspecified location of malignancy Expected: 05/13/2025, Expires: 08/11/2025 documented as of this encounter Visit Diagnoses Diagnosis Malignant neoplasm of pancreas, unspecified location of malignancy- Primary documented in this encounter Care Teams Transplant Registered Nurse Relationship Specialty Start Date End Date Burt, Emilie Way MD [address] [place] [address] PCP - General Family Medicine 06/03/18 documented as of this encounter Additional Source Comments The information contained in this document represents components of the legal health record. It is not the complete legal health record.[facility]
--- OUTSIDE RECORDS SUMMARY | 2025-04-01 04:43 | XMS_ITS | Encounter Summary ---
Author Organization [employer] Address 75 [facility] 7t [place] [address] Care Team Providers Care Hearing Therapy Teacher Name Role Phone Emilie Davis MD Primary Care Provider [phone] Morales Echavarria Unavailable Unavailable August Unavailable Fred Castanon Unavailable Ele Mar MD Unavailable [phone] Reason for Visit * Reason Comments Med Refill Encounter Details Date Type Department Care Team (Late st Contact Info) Description 01/17/2024 Refill [facility] MEDICINE [address] [place] [address] Emilie Davis MD [address] [place], [place] [id number] 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) Social [...] Description 06/04/2025 3:00 PM EST Office Visit [facility] OPTOMETRY [address] [place] [address] Merissa Donis, OD [address] [place] [address] documented as of this encounter Visit Diagnoses Diagnosis Gender 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- Primary documented in this encounter Additional Health Concerns Assessment Noted Time PHQ-9 Depression Total Score: 3 04/30/20 23 9:17 AM EST documented as of this encounter Care Teams Hearing Therapy Teacher Relationship Specialty Start Date End Date Emilie Davis MD [address] [place] [address] PCP - General Family Medicine 05/13/18 Morales Echavarria FNP [address] [place] [address] Nurse Practitioner Family Medicine 04/16/23 03/10/[address] Pam Aida [address] [place] [address] Gastroenterology 05/26/24 Fred Castanon [address] [place] [address] Cardiology 07/21/24 Ele Mar MD [address] [place] [address] Hematology and Oncology 02/22/25 Marina Brown MD Rheumatology 02/10/25 Costa Miller MD Attending Hepatobiliary & Pancreatic Surgeon Division of Surgical Oncology [facility] Surgical Oncology 03/11/25 documented as of this encounter
--- OUTSIDE RECORDS SUMMARY | 2025-04-01 04:43 | XMS_ITS | Encounter Summary ---
Author Organization [employer] Address 75 [facility] 7t [place] [address] Care Team Providers Care Silver Holloware Assembler Name Role Phone Emilie Davis MD Primary Care Provider [phone] Morales Echavarria Unavailable Unavailable August Unavailable Fred Castanon Unavailable Ele Mar MD Unavailable [phone] Reason for Visit * Reason Comments Med Refill Encounter Details Date Type Department Care Team (Late st Contact Info) Description 01/01/2023 Refill [facility] MEDICINE [address] [place] [address] Emilie Davis MD [address] [place] [address] Social History Tobacco Use Types Packs/Day Years [...] 8:54 AM EDT T/C to patient via wool fleece sorter regarding x-ray result. No answer, message left [...] Description 06/04/2025 3:00 PM EST Office Visit [facility] OPTOMETRY [address] [place] [address] GagandeepMerissa santos, OD [address] [place] [address] documented as of this encounter Visit Diagnoses Not on filedocumented in this encounter Additional Health Concerns Assessment Noted Time PHQ-9 Depression Total Score: 19 023 9:24 AM EDT documented as of this encounter Care Teams Silver Holloware Assembler Relationship Specialty Start Date End Date Emilie Davis MD [address] [place] [address] PCP - General Family Medicine 05/13/18 Morales Echavarria FNP [address] [place] [address] Nurse Practitioner Family Medicine 04/16/23 03/10/25 Aida Orozco [address] [place] [address] Gastroenterology 05/26/24 Fred Castanon [address] [place] [address] Cardiology 07/21/24 Ele Mar MD [address] [place] [address] Hematology and Oncology 02/22/25 Marina Brown MD Rheumatology 02/10/25 Costa Miller MD Attending Hepatobiliary & Pancreatic Surgeon Division of Surgical Oncology [facility] Surgical Oncology 03/11/25 documented as of this encounter
--- OUTSIDE RECORDS SUMMARY | 2025-04-01 04:43 | XMS_ITS | Encounter Summary ---
Author Organization [employer] Address 75 [facility] 7t [place] [address] Care Team Providers Care Combination Presser Name Role Phone Emilie Davis MD Primary Care Provider [phone] August Unavailable Fred Castanon Unavailable Ele Mar MD Unavailable [phone] Reason for Visit * Reason Onset Date Comments ER Follow-up 03/30/2025 Encounter Details Date Type Department Care Team ([facility] st Contact Info) Description 03/30/2025 Telephone [facility] MEDICINE [address] [place] [address] Bijal Irene, RN [address] [place] [address] ER Follow-up Social History Tobacco Use Types Packs/Day [...] 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 Davis 03/31/25. * Telephone Encounter - Bijal Irene RN - 03/30/2025 2:31 PM EST Pt seen by Patricia for ASK for abdominal pain today. Ambulance called for pt to transport to [facility] ED. 02/19 abdominal pain, unable to eat or drink, diarrhea. Pt with immunosuppression d/t chemotherapy, provider suspects acute abdomen. Will task to team to status check pt and sending to PCP as FYI documented in this encounter Plan of Treatment Upcoming Encounters Date Type Department Care Team (Late st Contact Info) Description 06/04/2025 3:00 PM EST Office Visit [facility] OPTOMETRY [address] [place] [address] Merissa Donis, GINA [address] [place] [address] documented as of this encounter Visit Diagnoses Not on filedocumented in this encounter Additional Health Concerns Assessment Noted Time PHQ-9 Depression Total Score: 9 03/03/20 25 4:53 PM EDT documented as of this encounter Care Teams Combination Presser Relationship Specialty Start Date End Date Emilie Davis MD [address] [place] [address] PCP - General Family Medicine 05/13/18August [address] [place] [address] Gastroenterology 05/26/24 Fred Castanon [address] [place] [address] Cardiology 07/21/24 Ele Mar MD [address] [place] [address] Hematology and Oncology 02/22/25 Marina Brown MD Rheumatology 02/10/25 Costa Miller MD Attending Hepatobiliary & Pancreatic Surgeon Division of Surgical Oncology [facility] Surgical Oncology 03/11/25 documented as of this encounter
== END 2025-03-31 22:21 | disposition home or self-care (01) ==
PROVIDERS: Emergency Provider Student in an Organized Health Care Education/Training Program; PCP Family Medicine
DX: K57.92 Diverticulitis of intestine, part unspecified, without perforation or abscess without bleeding (principal); R10.30 Lower abdominal pain, unspecified; C25.9 Malignant neoplasm of pancreas, unspecified; Z92.21 Personal history of antineoplastic chemotherapy; I10 Essential (primary) hypertension; E78.5 Hyperlipidemia, unspecified; K21.9 Gastro-esophageal reflux disease without esophagitis; Z87.891 Personal history of nicotine dependence; Z79.899 Other long term (current) drug therapy
CPT/HCPCS: 36415; 74177; 80053; 83605; 83690; 85007; 85027; 87040; 96361; 96365; 96366; 96375; 99285; J1171; J1836; J1956; J7120; Q9967

== ENCOUNTER 2025-04-14 12:39 | Observation (INO) | payer OTHER, SELFPAY ==
[2025-04-14] VITALS (9 sets, daily range): BP systolic 96–130; BP diastolic 55–79; PULSE 56–83; RESP 10–19; TEMP 36.4–36.8; O2SAT 96–100; BMI 16.7
--- NOTE | ~2025-04-14 | CT_ITS ---
EXAMINATION: CT ANGIOGRAM CHEST CLINICAL INFORMATION: CP, syncope, h of pancreatic cancer COMPARISON: 03/22/2025 TECHNIQUE: Multiple axial images were obtained through the chest after the administration of 65 mL of Omnipaque 350 intravenous contrast. Extensive vascular post-processing including two-dimensional and three-dimensional reformatted images were created and reviewed on an independent workstation. This CT examination was performed using dose optimization techniques as appropriate, variously including the following: *Automated exposure control *Adjustment of mA and/or kV according to patient size (this includes techniques or standardized protocols for targeted exams where dose is matched to indication/reason for exam; i.e. extremities or head) *Use of iterative reconstruction technique FINDINGS: QUALITY OF STUDY/CONTRAST BOLUS: Adequate PULMONARY ARTERIES: No filling defects are identified in the pulmonary arteries. THORACIC AORTA: No aneurysm, dissection, or vascular calcifications LUNGS AND PLEURA: Again seen is a calcified granuloma in the posterior right lower lobe and 2 in the lingula. There is minimal dependent atelectasis. Lungs are clear otherwise. MEDIASTINUM: Again seen is gaseous distention of the proximal half of the esophagus. CORONARY ARTERY CALCIFICATION: None CHEST WALL/AXILLA: No axillary or internal mammary lymphadenopathy. UPPER ABDOMEN: Unremarkable BONES: Unremarkable CT/CT angio chest PE protocol IMPRESSION: No evidence of pulmonary embolus or acute pulmonary parenchymal disease. Chronic granulomatous disease. Gaseous distention of the proximal half of the esophagus. Fleischner guidelines were followed. Electronically signed by: Rob Arteaga MD 04/14/2025 04:[address] [facility]
--- NOTE | ~2025-04-14 | CT_ITS ---
EXAMINATION: CT HEAD WITHOUT CONTRAST CLINICAL INFORMATION: Syncope, fall, head injury COMPARISON: CT head 03/22/2025 TECHNIQUE: Contiguous axial imaging was performed from the skull base to vertex without intravenous administration of contrast. This CT examination was performed using dose optimization techniques as appropriate, variously including the following: *Automated exposure control *Adjustment of mA and/or kV according to patient size (this includes techniques or standardized protocols for targeted exams where dose is matched to indication/reason for exam; i.e. extremities or head) *Use of iterative reconstruction technique FINDINGS: There is no evidence of acute intracranial hemorrhage or edematous large vessel territorial infarction. No abnormal mass effect or midline shift is seen. Morin to white matter differentiation is well preserved. No abnormal extra-axial fluid collections are identified. The ventricles are normal in size. No abnormal attenuation in the brain parenchyma. Redemonstrated is low positioning of the cerebellar tonsils. Bilateral globes are intact. No acute calvarial fracture.. Mild right maxillary sinus mucosal thickening. Paranasal sinuses otherwise and mastoid air cells are well-aerated. CT/CT head/brain wo IV con IMPRESSION: No CT evidence of acute intracranial hemorrhage or edematous territorial infarction. Electronically signed by: Huseyin Cerna MD 04/14/2025 04:11 PM [facility]
--- NOTE | ~2025-04-14 | CT_ITS ---
EXAMINATION: CT CERVICAL SPINE WITHOUT CONTRAST CLINICAL INFORMATION: Syncope, fall, head injury, neck pain. COMPARISON: 08/07/2018. TECHNIQUE: Spiral CT imaging of the cervical spine performed in axial plane without contrast. Multiplanar reformatted images were constructed from the axial data set. This CT examination was performed using dose optimization techniques as appropriate, variously including the following: *Automated exposure control *Adjustment of mA and/or kV according to patient size (this includes techniques or standardized protocols for targeted exams where dose is matched to indication/reason for exam; i.e. extremities or head) *Use of iterative reconstruction technique FINDINGS: CORONAL ALIGNMENT: -There is a trace levoconvex scoliosis, apex at C6. SAGITTAL ALIGNMENT: -Mild straightening of the normal lordosis. -No significant or traumatic subluxation. C1-C2 AND CRANIOCERVICAL JUNCTION: -Intact and normally aligned. VERTEBRAL BODIES AND FACETS: -There is no fracture, compression deformity, or suspicious bone lesion. There is no evidence of traumatic subluxation. -The facets are normally aligned. There are no facet subluxations or fractures. DISCS: -Moderate disc degeneration present C4-5, C5-6, and C6-7. -Mild to moderate degeneration present at C7-T1. CENTRAL CANAL: -No evidence of high-grade central canal narrowing or large disc herniation allowing for modality limitations. PREVERTEBRAL AND PARAVERTEBRAL SOFT TISSUES: -There is no prevertebral or paravertebral soft tissue swelling, abnormal fluid collection, or edema. -The thyroid gland is normal. -Partially imaged left chest port. LUNG APICES: -Clear bilaterally. CT/CT cervical spine wo IV con IMPRESSION: 1. No CT evidence of acute cervical spine fracture or injury. 2. Mild to moderate degenerative spondylosis without significant C4-C7. Electronically signed by: Micah Hastings MD 04/14/2025 04:14 PM [facility]
--- NOTE | ~2025-04-14 | CT_ITS ---
EXAMINATION: CT ABDOMEN AND PELVIS WITH CONTRAST CLINICAL INFORMATION: History of pancreatic cancer. Status post syncope. Abdominal pain. COMPARISON: March 31, 2025. TECHNIQUE: Multidetector volumetric images were obtained from the superior aspect of the liver through the pubic symphysis following administration 85 mL of Omnipaque 350 intravenous contrast. Sagittal and coronal reformatted images were obtained on the technologist's workstation. Oral contrast: No This CT examination was performed using dose optimization techniques as appropriate, variously including the following: *Automated exposure control *Adjustment of mA and/or kV according to patient size (this includes techniques or standardized protocols for targeted exams where dose is matched to indication/reason for exam; i.e. extremities or head) *Use of iterative reconstruction technique DLP: 416.01 mGy-cm FINDINGS: LUNG BASES: 5 mm calcified pulmonary nodule, right lung base. Less than 3 mm calcified pulmonary nodules in the periphery of the left lower lung lobe and lingula. LIVER, GALLBLADDER, AND BILIARY TREE: Liver measures 15 cm. No enhancing mass. Main portal veins and hepatic veins and intrahepatic portion of the IVC are patent. Mild intrahepatic biliary ductal dilatation. 3 mm cystic lesion right hepatic lobe too small to be fully characterized. Status post cholecystectomy. Common bile duct measures 12 mm. PANCREAS: There is a 2.5 cm enhancing lesion in the uncinate process. Main pancreatic duct measures 2 mm. No peripancreatic fluid collection. SPLEEN: 8 cm. No solid or cystic mass. ADRENAL GLANDS: No nodular lesions. KIDNEYS AND URETERS: No hydronephrosis. No gross nephrolithiasis. Normal enhancement pattern of the renal cortex and medulla. Normal urinary excretion into the collecting system. BLADDER: Collapsed. GASTROINTESTINAL TRACT: Abundant stool throughout the large intestine. There is a focal segmental concentric wall thickening measuring 5 cm in maximum length at the hepatic colonic flexure/ascending colon junction. Numerous diverticula in the left hemicolon. No pneumatosis intestinalis. No pneumoperitoneum. No ascites. Appendix is normal.. ABDOMINAL WALL: Small fat-containing umbilical hernia. LYMPH NODES: Mild prominent mesenteric and retroperitoneal lymph nodes measuring less than 8 mm. VASCULAR: Mixed plaques throughout the abdominal aorta wall and iliac arteries without aneurysm or dissection. PELVIC VISCERA: Not fully evaluated. OSSEOUS STRUCTURES: Multilevel spondylosis pronounced at L4-5. No lytic or blastic lesions. No acute fracture. CT/CT abdomen pelvis w IV con IMPRESSION: 2.5 cm lesion/mass, uncinate process of the pancreas, unchanged. Concerning neoplasm, hepatic colonic flexure/ascending colon junction. Intrahepatic and extrahepatic biliary ductal dilatation, mild. Abundant stool without intestinal obstruction pattern. Diverticular disease. Fleischner guidelines were followed. Electronically signed by: Eric Daley MD 04/14/2025 03:57 PM [facility]
--- NOTE | 2025-04-14 13:06 | ECG_ITS ---
Test Reason : syncope Blood Pressure : */* mmHG Vent. Rate : 57 BPM Atrial Rate : 57 BPM P-R Int : 116 ms QRS Dur : 78 ms QT Int : 422 ms P-R-T Axes : 54 54 34 degrees QTcB Int : 410 ms Sinus bradycardia Anterior infarct , age undetermined Abnormal ECG When compared with ECG of 22-Mar-2025 10:55, Vent. rate has decreased by 53 bpm Nonspecific T wave abnormality now evident in Anterior leads Referred By: Guillermo Milan Electronically Signed By: MANAS CARRASCO
--- NOTE | 2025-04-14 13:22 | ED.SYNCOPE ---
HPI - Syncope General Chief Complaint: Fall Stated Complaint: DIZZY,SYNCOPE W/FALL,HIT HEAD PER EMS Time Seen by Provider: 04/14/25 12:53 Source: patient Mode of arrival: ambulatory Limitations: no limitations History of Present Illness ED Provider: DR. Milan HPI narrative: 55-year-old with PMHx pancreatic adenocarcinoma currently receiving 2nd dose of chemotherapy patient presented today by ambulance from walk-in clinic for evaluation after had chest pain and syncopal episode at the clinic, patient went to the clinic for health insurance adjustment where he complained of chest pain patient was given nitroglycerin under the tongue patient initially refused to take the nitro because it lowers his blood pressure however patient was given the nitroglycerin then patient after the passed out fell on the ground face down inches down headache his head, neck, complaining of chest pain which is constant after the fall patient think it is chest wall pain, patient is also been complaining of left lower abdominal pain, the patient admitted to eating and drinking less because of the chemotherapy and poor appetite. No fever, no chills. Related Data Home Medications ?Medication ?Instructions ?Recorded ?Confirmed cabotegravir 600 mg/3 mL (200 600 mg IM [id number] 02/18/25 03/22/25 mg/mL) IM suspension,extended release (Apretude) bisacodyl 5 mg tablet,delayed 10 mg PO BEDTIME PRN Constipation 03/22/25 03/22/25 release (Dulcolax (bisacodyl)) lidocaine 5 % topical ointment 1 appl topical BID PRN port a cath 03/22/25 03/22/25 lorazepam 0.5 mg tablet 0.5 mg PO BEDTIME PRN anxiety 03/22/25 03/22/25 Previous Rx's ?Medication ?Instructions ?Recorded Oxygen Home Use #3 ea 09/24/24 magnesium oxide 400 mg (241.3 mg 400 mg PO BEDTIME 30 days #30 tabs 09/25/24 magnesium) tablet dexamethasone 4 mg tablet 4 mg PO BID #30 tabs 03/11/25 oxycodone 5 mg capsule 5 mg PO Q8H PRN Severe Pain (Scale 03/11/25 Score 7-10) #30 caps food supplemt, lactose-reduced 1 ea PO BID #48 ea 03/16/25 (Ensure oral liquid) ondansetron 8 mg disintegrating 8 mg PO Q8H PRN nausea and 03/25/25 tablet vomiting #20 tabs trazodone 50 mg tablet 50 mg PO BEDTIME PRN insomnia #30 03/25/25 tabs oxycodone 10 mg tablet 10 mg PO Q4H PRN pain #20 tabs 03/30/25 ciprofloxacin HCl 500 mg tablet 500 mg PO Q12H 7 days #14 tabs 03/31/25 metronidazole 500 mg tablet 500 mg PO BID 5 days #10 tabs 03/31/25 Allergies Allergy/AdvReac Type Severity Reaction Status Date / Time black pepper Allergy Severe Anaphylaxis Verified 04/14/25 13:01 Penicillins (PENICILLINS) Allergy Intermediate HIVES,SWELL Verified 04/14/25 13:01 ING sumatriptan (SUMATRIPTAN) AdvReac Severe PT STATES Verified 04/14/25 13:01 HEART ATTACK berries Allergy Unknown Anaphylaxis Uncoded 03/30/25 15:02 Review of Systems Review of Systems: All other systems are reviewed and are negative Constitutional: Reports as per HPI and Reports no additional constitutional complaints Eyes: Reports as per HPI and Reports no additional eye complaints Reports system reviewed and no additional complaints, except as documented Cardiovascular: Reports as per HPI and Reports no additional cardiovascular complaints Respiratory: Reports as per HPI and Reports no additional respiratory complaints Gastrointestinal: Reports as per HPI and Reports no additional gastrointestinal complaints Genitourinary: Reports no additional female genitourinary complaints Musculoskeletal: Reports no additional musculoskeletal complaints Skin/Breast: Reports system reviewed and no additional complaints, except as docu Psychiatric: Reports no additional psychiatric complaints Endocrine: Reports no additional endocrine complaints Hematologic/Lymphatic: Reports no additional hematologic/lymphatic complaints Allergic/Immunologic: Reports no additional allergic/immunologic complaints Reports system reviewed and no additional complaints, except as documented and Reports Abnormal speech present [facility] Past Medical History Medical History Pancreatic adenocarcinoma Elevated LFTs Pancreatic mass Acute pancreatitis Pancreatic mass Upper abdominal pain Erosive esophagitis Abdominal pain Sleep difficulties Vomiting LEE (dyspnea on exertion) Arthritis Occipital neuralgia of left side New onset headache Diverticulosis of colon Chronic, continuous use of opioids Chronic GERD Palpitations Hypotension History of palpitations Dysphagia Disc degeneration, lumbar Spondylosis of lumbar spine Depression Past heart attack Hyperlipemia Erosive osteoarthritis of hands, bilateral GERD (gastroesophageal reflux disease) Hypertension Surgical History History of cholecystectomy Hx of colonoscopy History of esophagogastroduodenoscopy (EGD) H/O bilateral mastectomy H/O: hysterectomy Family History Family History Mother Hypertension Breast cancer Maternal Grandmother Myocardial infarct Skin cancer Sister Heart problem Breast cancer Family/Other Esophageal cancer Social History Social History Household Members: None Housing: Apartment Are you a primary career development coordinator to a significant other at home: No Do you presently have visiting nurse or other home services: No Alcohol intake: never Patient Tobacco Use Status: Former Tobacco user Second Hand Smoke Exposure: No Substance Use Type: Marijuana Advance Directives: No Advance Directives Information Provided: Yes service: No Physical Exam Vital Signs: Vital Signs: Last Vital Signs Temp 98.1 F 04/14/25 14:24 Pulse 63 04/14/25 15:07 Resp 16 04/14/25 15:07 BP 116/75 04/14/25 15:07 Pulse Ox 96 04/14/25 15:07 O2 Del Method Room Air 04/14/25 15:07 BMI result Body Mass Index 16.7 Vital signs have been reviewed and appear to be correct. Blood pressure elevated. Heart rate normal. Respiratory rate normal. Temperature normal. Oxygen saturation normal. Appearance: Alert. Oriented X3. No acute distress. Head: Normal external exam. Normocephalic. Atraumatic. No Faust signs noted. No raccoon eyes noted Eyes: PERRLA. EOMI. Conjunctiva and sclera normal. Eyelids normal. ENT: TM's Normal. Pharynx normal. Uvula midline. Dry mucous membranes. No trismus noted. No drooling noted. No muffled voice noted. Neck: Normal inspection. Neck supple. FROM. No adenopathy. Thyroid Normal. No meningeal signs. No neck mass noted. CVS: Normal heart rate and rhythm. Heart sound normal. No murmurs noted. Pulses normal throughout. Respiratory: No respiratory distress. Painless inspiration. Breath sounds normal. No wheezes/rales/rhonchi noted. Chest nontender. No accessory muscle usage noted or decreased air movement noted. Abdomen: Soft and nontender. Bowel sounds normal in all 4 quadrants. No distention noted. No organomegaly noted. No visible injury noted. Back: No CVA tenderness. Full range of motion noted. Skin: Skin warm and dry. Normal skin color. Normal skin turgor. No rashes/lesions/lacerations noted. Extremities: No lower extremity edema. Extremities exhibit normal range of motion. Extremities nontender. Neuro: Oriented X 3. Cranial nerve exam: II-XII are grossly intact No motor deficit. No sensory deficit. Reflexes normal. Course Reevaluation(s) Reevaluation #1: syncopal episode, chest pain and abdominal pain. 1. Dehydration and hypovolemia secondary to chemotherapy and decreased p.o. intake. 2. No acute traumatic injuries head/ C-spine CT. 3. Pancreatic adenocarcinoma no emergency intervention is needed at this point. Time: 16:23 Medications Administered Discontinued Medications Generic Name Dose Route Start Last Admin Trade Name Freq PRN Reason Stop Dose Admin Heparin Sodium (Porcine) 500 0 unit 04/14/25 13:43 04/14/25 14:26 unit/ Sodium Chloride 5 ml IVFLUSH 04/14/25 13:44 500 unit ONCE ONE Administration Iohexol 100 ml 04/14/25 15:20 04/14/25 15:20 Iohexol 350 Mg/Ml 100 Ml Infus..Btl IV 04/14/25 15:21 65 ml ONCE ONE Administration Morphine Sulfate 2 mg 04/14/25 14:52 04/14/25 15:04 Morphine Sulfate 4 Mg/Ml Cartridge IVPUSH 04/14/25 14:53 2 mg ONCE ONE Administration Protocol Medical Decision Making Differential Diagnosis Differential Diagnoses: The differential diagnosis associated with the presentation includes ( Intracranial bleed, cervical spine injury, pulmonary embolism, pneumonia, pneumothorax, pleural effusion, acute blood loss, severe anemia, electrolyte derangement , dehydration, hypovolemia.) Admission/Observation Consideration of admission/observation: Escalation of care including admission/observation considered Lab Data MDM Lab Attestation statement: I reviewed the patient's lab results. 04/14/25 13:36 04/14/25 13:36 Labs: Lab Results 04/14/25 04/14/25 Range/Units 13:36 14:49 WBC 14.6 H (4.8-10.8) X10*3/uL RBC 4.46 (4.20-5.50) X10*6/uL Hgb 12.8 (12.0-16.0) g/dl Hct 39.6 (37.0-47.0) % MCV 88.8 (80.0-98.0) fL MCH 28.7 (27.0-33.0) pg MCHC 32.3 (31.0-35.0) g/dl RDW 15.8 (11.0-16.0) % Plt Count 308 (160-400) X10*3/uL MPV 8.7 L (9.4-12.3) fL Immature Gran % (Auto) 0.7 H (0.0-0.4) % Neut % (Auto) 84.3 H (45-73) % Lymph % (Auto) 12.2 L (20-40) % [place] % (Auto) 2.5 (2-11) % Eos % (Auto) 0.1 (0-4) % Baso % (Auto) 0.2 (0-2) % Lymph # (Auto) 1.8 (1.2-4.9) X10*3/uL [place] # (Auto) 0.4 (0.1-1.2) X10*3/uL Eos # (Auto) 0.0 (0.0-0.4) X10*3/uL Baso # (Auto) 0.0 (0.0-0.2) X10*3/uL Abs Immat Gran (auto) 0.10 H (0.00-0.03) X10*3/uL Absolute Neuts (auto) 12.3 H (2.0-8.3) x10*3/uL Absolute Nucleated RBC 0.000 (0.0-0.012) X10*3/uL Nucleated RBC % (auto) 0.0 (0.0-0.2) /100WBC PT 11.2 (11.2-13.5) SEC INR 0.9 (0.9-1.1) D-Dimer High Sensitivty 770 NG/ML Sodium 144 (135-145) mmol/L Potassium 3.8 (3.3-5.1) mmol/L Chloride 112 H (96-108) mmol/L Carbon Dioxide 26 (22-29) mmol/L Anion Gap 10 L (12-20) BUN 18 H (9-16) mg/dL Creatinine 0.64 (0.5-1.4) mg/dL Estim Creat Clear Calc 70.5 Estimated GFR > 60 Random Glucose 100 (60-115) mg/dL Calcium 8.5 D (8.4-10.2) mg/dL Total Bilirubin 0.3 (0.0-1.0) mg/dL Direct Bilirubin 0.2 (0.0-0.5) mg/dL AST 26 (5-31) U/L ALT 20 (0-31) U/L Alkaline Phosphatase 59 (39-117) U/L Troponin I High Sens < 2.7 (<3.5-17.0) ng/L Total Protein 6.3 L (6.5-8.0) g/dL Albumin 3.7 (3.5-5.0) g/dL Urine Color Yellow Urine Appearance Clear Urine pH 5.5 (5.0-9.0) Ur Specific Tok 1.020 (1.005-1.025) Urine Protein Trace (Neg-Trace) mg/dL Urine Glucose (UA) Negative (Negative) mg/dL Urine Ketones Negative (Negative) mg/dL Urine Blood Negative (Negative) Urine Nitrite Negative (Negative) Ur Leukocyte Esterase Negative (Negative) Independent Interpretation I performed an independent interpretation of an: CT Scan ( CT chest: Abdomen: Pelvis: Head: C-spine CT: No acute pathology, no pulmonary embolism, unchanged pancreatic adenocarcinoma.) Radiology Impression Discussion of test interpretation with radiology: I have reviewed the radiologist's reading. Discharge Plan Discharge Clinical Impression: Syncope and collapse, Dehydration Patient Disposition: Admitted As Inpatient Print Language: Georgian
[2025-04-14 13:42] LABS: MANUAL DIFF FLAG NO
[2025-04-14 13:45] LABS: Hematocrit 39.6 % (37.0-47.0); Hemoglobin 12.8 g/dl (12.0-16.0); Imm Gran Abs Auto 0.10 X10*3/uL (0.00-0.03); Imm Gran Pct Auto 0.7 % (0.0-0.4); Lymphocytes Absolute Auto 1.8 X10*3/uL (1.2-4.9); Mean Corpuscular HGB Conc 32.3 g/dl (31.0-35.0); Mean Corpuscular Hemoglobin 28.7 pg (27.0-33.0); Mean Corpuscular Volume 88.8 fL (80.0-98.0); NRBC Abs Auto 0.000 X10*3/uL (0.0-0.012); NRBC Pct Auto 0.0 /100WBC (0.0-0.2); Platelet Count 308 X10*3/uL (160-400); Red Blood Count 4.46 X10*6/uL (4.20-5.50); White Blood Count 14.6 X10*3/uL (4.8-10.8)
[2025-04-14 13:50] LABS: INTERNATIONAL NORM RATIO 0.9 (0.9-1.1); Prothrombin Time 11.2 SEC (11.2-13.5)
[2025-04-14 13:52] LABS: D Dimer High Sensitivity 770 NG/ML
[2025-04-14 13:57] LABS: Alanine Aminotransferase 20 U/L (0-31); Albumin Level 3.7 g/dL (3.5-5.0); Alkaline Phosphatase 59 U/L (39-117); Anion Gap 10 (12-20); Aspartate Amino Transferase 26 U/L (5-31); Blood Urea Nitrogen 18 mg/dL (9-16); Calcium 8.5 mg/dL (8.4-10.2); Carbon Dioxide 26 mmol/L (22-29); Chloride 112 mmol/L (96-108); Creatinine Clr Calc Pharmacy 70.5; Estimated Glomerular Filt Rate > 60; Potassium 3.8 mmol/L (3.3-5.1); Sodium 144 mmol/L (135-145); Total Protein 6.3 g/dL (6.5-8.0)
[2025-04-14 14:21] LABS: Troponin-I High Sensitivity < 2.7 ng/L (<3.5-17.0)
[2025-04-14 14:58] LABS: Appearance Urine Clear; Glucose Urine UA Negative (Negative); PH 5.5 (5.0-9.0); Specific Gravity - Urine 1.020 (1.005-1.025)
--- NOTE | 2025-04-14 15:12 | PC.NURSE ---
Varinder RN from oncology came to deaess left chest port which, per Varinder, was accessed 2 days ago for chemo infusion. RN flushed with hep lock. pt has IV from EMS in left AC
[2025-04-14] MEDS: iohexoL 350 MG/ML 100 ML INFUS..BTL IV (15:20)
--- OUTSIDE RECORDS SUMMARY | 2025-04-14 15:58 | XMS_ITS | Encounter Summary ---
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 Not on file Not on file documented as of this encounter Plan of Treatment Upcoming Encounters Date Type Department Care Team (Late st Contact Info) Description 04/26/2025 11:30 AM EST Telemedicine [facility] MEDICINE [address] [place] [address] Emilie Davis MD [address] [place] [address] 06/04/2025 3:00 PM EST Office Visit [facility] OPTOMETRY [address] [place] [address] Merissa Donis, OD [address] [place] [address] 06/14/2025 9:00 AM EST Nutrition [facility] DIABETES/NUTRITION [address] [place] [address] [place] [address] documented as of this encounter Procedures Procedure Name Priority Date/Time Associated Diagnosis Comments URINALYSIS WITH REFLEX MICROSCOPIC Routine 04/14/2025 2:49 PM EST documented in this encounter Results * Urinalysis w/reflex microscopic (04/14/2025 2:49 PM EST) Color Urine Yellow [facility] Appearance Urine Clear [facility] PH 5.5 5.0 - 9.0 [facility] Glucose Urine UA Negative Negative mg/dL [facility] Urine Blood Negative Negative [facility] Specific [place] - Urine 1.020 1.005 - 1.025 [facility] Urine Protein Trace Neg-Trace mg/dL [facility] Urine Ketones Negative Negative mg/dL [facility] Nitrite Urine Negative Negative [facility] Leukocyte Esterase Urine Negative Negative [facility] 04/14/2025 2:49 PM EST 04/14/2025 2:52 PM EST Narrative [facility] - 04/14/2025 2:59 PM EST [id number], Clean Catch us Generic External Data Provider LAB URINE ORDERAB LES Final Result [facility] [address] [place] [address] [phone] documented in this encounter Visit Diagnoses Not on filedocumented in this encounter Additional Health Concerns Assessment Noted Time PHQ-9 Depression Total Score: 9 03/03/20 25 4:53 PM EDT documented as of this encounter Care Teams Jewelry Designer Relationship Specialty Start Date End Date Emilie Davis MD [address] [place] [address] PCP - General Family Medicine 05/13/18August [address] [place] [address] Gastroenterology 05/26/24 Fred Castanon [address] [place] [address] Cardiology 07/21/24 Ele Mar MD [address] [place] [address] Hematology and Oncology 02/22/25 Marina Brown MD Rheumatology 02/10/25 Costa Miller MD Attending Hepatobiliary & Pancreatic Surgeon Division of Surgical Oncology [facility] Surgical Oncology 03/11/25 documented as of this encounter
--- OUTSIDE RECORDS SUMMARY | 2025-04-14 15:58 | XMS_ITS | Encounter Summary ---
Author Organization [employer] Address 75 [facility] 7t [place] [address] Care Team Providers Care Cloud Operations Engineer Name Role Phone Emilie Davis MD Primary Care Provider [phone] Morales Echavarria Unavailable Unavailable August Unavailable Fred Castanon Unavailable Ele Mar MD Unavailable [phone] Reason for Visit * Reason Onset Date Comments Referral 07/18/2022 Encounter Details Date Type Department Care Team (Late st Contact Info) Description 07/18/2022 Telephone [facility] MEDICINE [address] [place] [address] Emilie Davis MD [address] [place] [address] Referral Social History Tobacco Use Types Packs/Day [...] to our [facility]. Please contact pt [phone] documented in this encounter Plan of Treatment Upcoming Encounters Date Type Department Care Team (Late st Contact Info) Description 04/26/2025 11:30 AM EST Telemedicine [facility] MEDICINE [address] [place] [address] Emilie Davis MD [address] [place] [address] 06/04/2025 3:00 PM EST Office Visit [facility] OPTOMETRY [address] [place] [address] Gagandeep, Merissa, OD [address] [place] [address] 06/14/2025 9:00 AM EST Nutrition [facility] DIABETES/NUTRITION [address] [place] [address] [place] [address] documented as of this encounter Visit Diagnoses Not on filedocumented in this encounter Care Teams Cloud Operations Engineer Relationship Specialty Start Date End Date Emilie Davis MD [address] [place] [address] PCP - General Family Medicine 05/13/18 Morales Echavarria FNP [address] [place] [address] Nurse Practitioner Family Medicine 04/16/23 03/10/[address] [place] [address] Gastroenterology 05/26/24 Fred Castanon [address] [place] [address] Cardiology 07/21/24 Ele Mar MD [address] [place] [address] Hematology and Oncology 02/22/25 Marina Brown MD Rheumatology 02/10/25 Costa Miller MD Attending Hepatobiliary & Pancreatic Surgeon Division of Surgical Oncology [facility] Surgical Oncology 03/11/25 documented as of this encounter
--- OUTSIDE RECORDS SUMMARY | 2025-04-14 15:58 | XMS_ITS | Encounter Summary ---
Author Organization [employer] Address 75 [facility] 7t [place] [address] Care Team Providers Care Beef Selector Name Role Phone Emilie Davis MD Primary Care Provider [phone] Morales Echavarria Unavailable Unavailable August Unavailable Fred Castanon Unavailable Ele Mar MD Unavailable [phone] Encounter Details Date Type Department Care Team (Late Contact Info) Description 11/28/2022 Abstract [facility] MEDICINE [address] [place] [address] [phone] Emilie Davis MD [address] [place] [address] [phone] Social History Tobacco Use Types Packs/Day Years [...] Department Care Team (Late Contact Info) Description 04/26/2025 11:30 AM EST Telemedicine [facility] MEDICINE [address] [place] [address] [phone] Emilie Davis MD 230 [place] [address] 06/04/2025 3:00 PM EST Office Visit [facility] OPTOMETRY [address] [place] [address] Merissa Donis, OD 230 [place] [address] 06/14/2025 9:00 AM EST Nutrition [facility] DIABETES/NUTRITION 230 [place] [address] Czepiel, Raina, RD 230 [place] [address] documented as of this encounter Visit Diagnoses Not on filedocumented in this encounter Additional Health Concerns Assessment Noted Time PHQ-9 Depression Total Score: 19 023 9:24 AM EDT documented as of this encounter Care Teams Beef Selector Relationship Specialty Start Date End Date Emilie Davis MD 230 [place] [address] PCP - General Family Medicine 05/13/18 Morales Echavarria FNP [address] [place] [address] 9[address]67 Nurse Practitioner Family Medicine 04/16/23 03/10/25 Aida Orozco [address] [place] [address] Gastroenterology 05/26/24 Fred Castanon [address] [place] [address] Cardiology 07/21/24 Ele Mar MD [address] [place] [address] Hematology and Oncology 02/22/25 Marina Brown MD Rheumatology 02/10/25 Costa Miller MD Attending Hepatobiliary & Pancreatic Surgeon Division of Surgical Oncology [facility] Surgical Oncology 03/11/25 documented as of this encounter
--- OUTSIDE RECORDS SUMMARY | 2025-04-14 15:58 | XMS_ITS | Encounter Summary ---
Author Organization [employer] Address 75 [facility] 7t [place] [address] Care Team Providers Care Green Chain Operator Name Role Phone Emilie Davis MD Primary Care Provider [phone] Morales Echavarria Unavailable Unavailable August Unavailable Fred Castanon Unavailable Ele Mar MD Unavailable [phone] Encounter Details Date Type Department Care Team (Late st Contact Info) Description 05/27/2022 Abstract [facility] MEDICINE [address] [place] [address] Emilie Davis MD [address] [place] [address] [phone] Social History Tobacco Use Types Packs/Day Years [...] Info) Description 04/26/2025 11:30 AM EST Telemedicine [facility] MEDICINE [address] [place] [address] [phone] Emilie Davis MD 230 [place], [place] [phone] 06/04/2025 3:00 PM EST Office Visit [facility] OPTOMETRY [address] [place] [address] [phone] Merissa Donis, OD 230 [place] [address] 06/14/2025 9:00 AM EST Nutrition [facility] DIABETES/NUTRITION 230 [place] [address] YarelisRaina frank, RD 230 [place] [address] documented as of this encounter Procedures Procedure [...] ORDERABLES F inal Result Performing Organization Address City/[facility]/ZIP Co de Phone Number [facility] [address] [place] [address] [phone] documented in this encounter Visit Diagnoses Not on filedocumented in this encounter Care Teams Green Chain Operator Relationship Specialty Start Date End Date Ryan, MD Emilie [address] [place] [address] PCP - General Family Medicine 05/13/18 Morales Echavarria FNP [address] [place] [address] 32131 Nurse Practitioner Family Medicine 04/16/23 03/10/25 Aida Orozco [address] [place] [address] Gastroenterology 05/26/[address] [facility] [address] [place] [address] Cardiology 07/21/24 Ele Mar MD [address] [place] [address] Hematology and Oncology 02/22/25 Marina Brown MD Rheumatology 02/10/25 Costa Miller MD Attending Hepatobiliary & Pancreatic Surgeon Division of Surgical Oncology [facility] Surgical Oncology 03/11/25 documented as of this encounter
--- OUTSIDE RECORDS SUMMARY | 2025-04-14 15:58 | XMS_ITS | Encounter Summary ---
Author Organization [employer] Address 75 [facility] 7t [place] [address] Care Team Providers Care Field Sales Executive Name Role Phone Emilie Davis MD Primary Care Provider [phone] Morales Echavarria Unavailable Unavailable August Unavailable Fred Castanon Unavailable Ele Mar MD Unavailable [phone] Encounter Details Date Type Department Care Team (Late st Contact Info) Description 04/22/2022 Orders Only [facility] CHC MED & PEDS [address] [place], [place] [phone] Emilie Davis MD [address] [place] [address] [phone] HSV (herpes simplex virus) anogenital infection (Primary [...] Info) Description 04/26/2025 11:30 AM EST Telemedicine [facility] MEDICINE [address] [place] [address] [phone] Emilie Davis MD [address] [place] [address] [phone] 06/04/2025 3:00 PM EST Office Visit [facility] OPTOMETRY [address] [place] [address] Merissa Donis, OD 230 [place] [address] 06/14/2025 9:00 AM EST Nutrition [facility] DIABETES/NUTRITION 230 [place] [address] Raina Renee, ZEENAT 230 [place] [address] documented as of this encounter Visit Diagnoses Diagnosis HSV (herpes simplex virus) anogenital infection- Primary Herpes simplex without mention of complication documented in this encounter Care Teams Field Sales Executive Relationship Specialty Start Date End Date Emilie Davis MD [address] [place] [address] PCP - General Family Medicine 05/13/18 Morales Echavarria FNP [address] [place] [address] 9[address] Nurse Practitioner Family Medicine 04/16/23 03/10/25August [address] [place] [address] Gastroenterology 05/26/24 Fred Castanon [address] [place] [address] Cardiology 07/21/24 Ele Mar MD [address] [place] [address] Hematology and Oncology 02/22/25 Marina Brown MD Rheumatology 02/10/25 Costa Miller MD Attending Hepatobiliary & Pancreatic Surgeon Division of Surgical Oncology [facility] Surgical Oncology 03/11/25 documented as of this encounter
--- OUTSIDE RECORDS SUMMARY | 2025-04-14 15:58 | XMS_ITS | Encounter Summary ---
Author Organization [employer] Address 75 [facility] 7t [place] [address] Care Team Providers Care Sustain Engineer Name Role Phone Emilie Davis MD Primary Care Provider [phone] Morales Echavarria Unavailable Unavailable August Unavailable Fred Castanon Unavailable Ele Mar MD Unavailable [phone] Reason for Visit * Reason Onset Date Comments Referral 07/20/2024 Encounter Details Date Type Department Care Team (Late st Contact Info) Description 07/20/2024 Telephone [facility] MEDICINE 230 [place], [place] [phone] Emilie Davis MD 230 [place], [place] [phone] Referral Social History Tobacco Use Types Packs/Day [...] Industry Job Start Date Job End Date [employer] Not on file Not on file Not on file documented as of this encounter Miscellaneous Notes * Telephone Encounter - Kishore Pichardo - 07/20/2024 11:03 AM EDT Tc from pt requesting a Apt for Rheumatology due to Hip Pain on the Pts left side. Contact pt at [phone] documented in this encounter Plan of Treatment Upcoming Encounters Date Type Department Care Team (Late st Contact Info) Description 04/26/2025 11:30 AM EST Telemedicine [facility] MEDICINE [address] [place] [address] Emilie Davis MD 230 [place] [address] 06/04/2025 3:00 PM EST Office Visit [facility] OPTOMETRY [address] [place] [address] Merissa Donis OD 230 [place] [address] 06/14/2025 9:00 AM EST Nutrition [facility] DIABETES/NUTRITION 230 [place] [address] [place] [address] documented as of this encounter Visit Diagnoses Not on filedocumented in this encounter Additional Health Concerns Assessment Noted Time PHQ-9 Depression Total Score: 3 04/30/20 9:17 AM EST documented as of this encounter Care Teams Sustain Engineer Relationship Specialty Start Date End Date Emilie Davis MD [address] [place] [address] PCP - General Family Medicine 05/13/18 Morales Echavarria FNP [address] [place] [address] Nurse Practitioner Family Medicine 04/16/23 03/10/25 Pam Aida [address] [place] [address] Gastroenterology 05/26/24 Fred Castanon [address] [place] [address] Cardiology 07/21/24 Ele Mar MD [address] [place] [address] Hematology and Oncology 02/22/25 Marina Brown MD Rheumatology 02/10/25 Costa Miller MD Attending Hepatobiliary & Pancreatic Surgeon Division of Surgical Oncology [facility] Surgical Oncology 03/11/25 documented as of this encounter
--- OUTSIDE RECORDS SUMMARY | 2025-04-14 15:58 | XMS_ITS | Clinical Summary ---
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, 4th Floor, [address] [place] [address] Costa Miller MD Malignant neoplasm of pancreas, unspecified location of malignancy (Primary Dx) 03/09/2025 3:00 PM EDT Office Visit [facility] General & Gastrointestinal Surgery [address] 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) 03/08/2025 Ancillary Orders [facility] [address] [place] [address] Costa Miller MD 03/08/2025 Ancillary Orders [facility] [address] [place] [address] Costa Miller MD 03/04/2025 Ancillary Orders [facility] [address] [place] [address] Heriberto Tan MD 03/04/2025 Ancillary Orders [facility] [address] [place] [address] Heriberto Tan MD 02/23/2025 - 02/23/2025 11:59 PM EDT Hospital Encounter [facility] [address] [place] [address] Heriberto Tan MD Discharge Disposition: Home or Self Care 02/18/2025 - 02/18/2025 11:59 PM EDT Hospital Encounter [facility] [address] [place] [address] Heriberto Tan MD Discharge Disposition: Home or Self Care 01/19/2025 - 01/19/2025 11:59 PM EDT Hospital Encounter [facility] [address] [place] [address] Costa Miller MD Discharge Disposition: Home or [...] st Contact Info) Description 03/30/2025 Procedure Pass [facility] - [facility] [address] [facility], 6th [place] [address] 05/14/2025 8:30 AM EST Appointment [facility] - CT [address] [facility], 6th [place] [address] Costa Miller MD [address] [place] [address] [email or web address] 05/14/2025 11:00 AM EST Office Visit [facility] [address] [facility], 7th Floor, [address] [place] [address] Costa Miller MD [address] [place] [address] [email or web address] Health Maintenance Due Date Last [...] AM EDT) 03/08/2025 8:59 AM EDT Impressions [facility] - 03/08/2025 9:05 AM EDT No metastatic disease to the thorax Narrative [facility] - 03/08/2025 9:[address] CHEST OUTSIDE WITH INTERPRETATION OR CONSULT Referring clinician's provided indication for this examination in [facility]: pancreatic cancer TECHNIQUE: Multidetector CT of the [...] pancreatic head/uncinate process mass is outside the [id number]. Please refer to report of CT abdomen dated 02/18/2025 for additional findings. Chest Wall: No chest wall mass. Bones: There are mild degenerative changes in the visualized spine. No suspicious lytic or blastic lesions. Procedure Note [facility] - [facility]2025 CT CHEST OUTSIDE WITH [...] Known pancreatic head/uncinate process massis outside the [id number]. Please refer to report of CT abdomen dated1 for additional findings. Chest Wall: No chest wall mass. Bones: There are mild degenerative changes in the visualized spine. Nosuspicious lytic or blastic lesions. 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 Associated mild upstream bile duct dilation. Abutment of the SMV with mild narrowing. * No definite abdominopelvic metastases. * Region of enhancement involving the right gluteus brandon, possibly inflammatory, though warranting attention on follow-up as a mass lesion could appear similar. Narrative [facility] - 03/08/2025 1:[address] ABDOMEN/PELVIS OUTSIDE WITH INTERPRETATION OR CONSULT Referring clinician's provided indication for this examination in [facility]: pancreatic cancer TECHNIQUE: CT of the [...] COMPARISON: MRI ABDOMEN OUTSIDE WITH INTERPRETATION OR [id number] FINDINGS: Lower Chest: Calcified granulomas in the [...] OUTSIDE ZENIA GING W/ INTERPRETATION Final Result [facility] [address] [place] [address] * MRI Abdomen Outside With Interpretation Or Consult (01/19/2025 12:00 AM EDT) 03/08/2025 1:10 PM EDT Impressions [facility] - 03/08/2025 1:43 PM EDT * 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 Associated mild upstream bile duct dilation. Abutment of the upper SMV. * No definite abdominopelvic metastases. Narrative [facility] - 03/08/2025 1:43 PM EDT MRI ABDOMEN OUTSIDE WITH INTERPRETATION OR CONSULT Referring clinician's provided indication for this examination in [facility]: pancreatic cancer TECHNIQUE: MRI of [...] clinician's provided indication for this examination in [facility]:pancreatic cancer TECHNIQUE: MRI of the abdomen was performed with and without intravenouscontrast. MRCP sequences were also interpreted. COMPARISON: CT ABDOMEN/PELVIS OUTSIDE WITH INTERPRETATION OR [id number] FINDINGS: Lower Chest: Unremarkable. Liver: No focal [...] OUTSIDE IMAGING W/ INTERPR ETATION Final Result [address] [id number] from Last 3 Months Insurance [facility] PCP [facility] WELLSENSE NON NSPG PCP [employer] NON NSPG PCP S[employer] NON NSPG PCP SIL[employer]ARITY CONNECTORCARE [facility] NON NSPG PCP S[employer] CONNECTORCARE [facility] NON NSPG PCP S[employer] CONNECTORCARE [employer]ANCE Rani [address] [facility] [place] [address] [place] [address] [facility] Britney [facility] [place] [address] Advance Directives For more information, please contact: [phone] (9AM - 5PM [facility], Saturday-Saturday) * Full Code (Presumed) (Latest Code Status on File) Date Activated Date Inactivated Comments 10/28/2018 9:51 AM 10/28/2018 7:25 PM Care Teams Line Closer Relationship Specialty Start Date End Date Ryan, Emilie Way MD [address] [place] [address] PCP - General Family Medicine 06/03/18 Additional Source Comments The information contained in this document represents components of the legal health record. It is not the complete legal health record.[facility]
--- OUTSIDE RECORDS SUMMARY | 2025-04-14 15:58 | XMS_ITS | Encounter Summary ---
Author Organization [employer] Address [address] [facility] 7t [place] [address] Care Team Providers Care Site Safety Manager Name Role Phone Emilie Davis MD Primary Care Provider [phone] Morales Echavarria Unavailable Unavailable August Unavailable Fred Castanon Unavailable Ele Mar MD Unavailable [phone] Reason for Visit * Reason Onset Date Comments Hospital Follow-up 02/22/2025 Encounter Details Date Type Department Care Team (Late st Contact Info) Description 02/22/2025 Telephone [facility] MEDICINE [address] [place] [address] Emilie Davis MD 230 [place], [place] [phone] Hospital Follow-up Social History Tobacco Use Types [...] 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 Hospital: [facility] Date of admission: 02/18 Discharge date: 02/21 Diagnosed: pt did a biopsy and they injured his pancreas *Send message to [place] Clinical Care Coordinators Contact pt at [phone] documented in this encounter Plan of Treatment Upcoming Encounters Date Type Department Care Team ([facility] st Contact Info) Description 04/26/2025 11:30 AM EST Telemedicine [facility] MEDICINE [address] [place] [address] Emilie Davis MD [address] [place] [address] 06/04/2025 3:00 PM EST Office Visit [facility] OPTOMETRY [address] [place] [address] Merissa Donis, OD 230 [place] [address] 06/14/2025 9:00 AM EST Nutrition [facility] DIABETES/NUTRITION [address] [place] [address] Raina Renee, RD [address] [place] [address] documented as of this encounter Visit Diagnoses Not on filedocumented in this encounter Additional Health Concerns Assessment Noted Time PHQ-9 Depression Total Score: 3 04/30/20 23 9:17 AM EST documented as of this encounter Care Teams Site Safety Manager Relationship Specialty Start Date End Date Emilie Davis MD [address] [place] [address] PCP - General Family Medicine 05/13/18 Morales Echavarria FNP [address] [place] [address] Nurse Practitioner Family Medicine 04/16/23 03/10/25 Aida Orozco [address] [place] [address] Gastroenterology 05/26/24 Fred Castanon [address] [place] [address] Cardiology 07/21/24 Ele Mar MD [address] [place] [address] Hematology and Oncology 02/22/25 Marina Brown MD Rheumatology 02/10/25 Costa Miller MD Attending Hepatobiliary & Pancreatic Surgeon Division of Surgical Oncology [facility] Surgical Oncology 03/11/25 documented as of this encounter
--- OUTSIDE RECORDS SUMMARY | 2025-04-14 15:58 | XMS_ITS | Encounter Summary ---
Author Organization [employer] Address [address] [facility] [address] 7t [place] [address] Care Team Providers Care Mortgage Loan Closer Name Role Phone Emilie Davis MD Primary Care Provider [phone] Morales Echavarria Unavailable Unavailable August Unavailable Fred Castanon Unavailable Ele Mar MD Unavailable [phone] Encounter Details Date Type Department Care Team (Late st Contact Info) Description 03/25/2023 Orders Only [facility] MEDICINE [address] [place] [address] Emilie Davis MD [address] [place] [address] Social History Tobacco Use Types Packs/Day Years [...] Info) Description 04/26/2025 11:30 AM EST Telemedicine [facility] MEDICINE [address] [place] [address] Emilie Davis MD [address] [place] [address] 06/04/2025 3:00 PM EST Office Visit [facility] OPTOMETRY [address] [place] [address] Gagandeep, Merissa, OD 230 [place] [address] 06/14/2025 9:00 AM EST Nutrition [facility] DIABETES/NUTRITION [address] [place] [address] [place] [address] documented as of this encounter Visit Diagnoses Not on filedocumented in this encounter Additional Health Concerns Assessment Noted Time PHQ-9 Depression Total Score: 10 023 9:08 AM EDT documented as of this encounter Care Teams Mortgage Loan Closer Relationship Specialty Start Date End Date Emilie Davis MD [address] [place] [address] PCP - General Family Medicine 05/13/18 Morales Echavarria FNP [address] [place] [address] Nurse Practitioner Family Medicine 04/16/23 03/10/25 Aida Orozco [address] [place] [address] Gastroenterology 05/26/24 Fred Castanon [address] [place] [address] Cardiology 07/21/24 Ele Mar MD [address] [place] [address] Hematology and Oncology 02/22/25 Marina Brown MD Rheumatology 02/10/25 Costa Miller MD Attending Hepatobiliary & Pancreatic Surgeon Division of Surgical Oncology [facility] Surgical Oncology 03/11/25 documented as of this encounter
--- OUTSIDE RECORDS SUMMARY | 2025-04-14 15:58 | XMS_ITS | Encounter Summary ---
Author Organization [employer] Address [address] [place] [address] 7t [place] [address] Care Team Providers Care Service And Repair Supervisor Name Role Phone Emilie Davis MD Primary Care Provider [phone]- [phone] Morales Echavarria Unavailable Unavailable August Unavailable Fred Castanon Unavailable Ele Mar MD Unavailable [phone] Reason for Referral * Consultation (Urgent) - Closed Specialty Diagnoses / Procedures Referred By Contac t Referred To Contact Behavioral Health Diagnoses Depression, unspecified depression type Emilie Davis MD [address] [place] [address] Phone: tel: fax: Referral ID Status Reason Start Date Expiration Date V isits Requested Visits Authorized [id number] Closed Specialty Services Required 02/05/2025 02/05/2026 1 1 Encounter Details Date Type Department Care Team (Late st Contact Info) Description 02/05/2025 Orders Only [facility] MEDICINE [address] [place] [address] Emilie Davis MD [address] [place] [address] [phone] Depression, unspecified depression type (Primary Dx) Social [...] 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 Not on file Not on file documented as of this encounter Plan of Treatment Upcoming Encounters Date Type Department Care Team (Late st Contact Info) Description 04/26/2025 11:30 AM EST Telemedicine [facility] MEDICINE 230 [place] [address] Emilie Davis MD 230 [place] [address] 06/04/2025 3:00 PM EST Office Visit [facility] OPTOMETRY [address] [place] [address] Merissa Donis, OD 230 [place] [address] 06/14/2025 9:00 AM EST Nutrition [facility] DIABETES/NUTRITION 230 [place] [address] Raina Renee, RD 230 [place] [address] Scheduled Referrals Name Type Priority Associated Diagnoses [...] as of this encounter Care Teams Service And Repair Supervisor Relationship Specialty Start Date End Date Emilie Davis MD 230 [place] [address] PCP - General Family Medicine 05/13/18 Morales Echavarria FNP [address] [place] [address] Nurse Practitioner Family Medicine 04/16/23 03/10/25 Aida Orozco [address] [place] [address] Gastroenterology 05/26/24 Fred Castanon [address] [place] [address] Cardiology 07/21/24 Ele Mar MD [address] [place] [address] Hematology and Oncology 02/22/25 Marina Brown MD Rheumatology 02/10/25 Costa Miller MD Attending Hepatobiliary & Pancreatic Surgeon Division of Surgical Oncology [facility] Surgical Oncology 03/11/25 documented as of this encounter
--- OUTSIDE RECORDS SUMMARY | 2025-04-14 15:58 | XMS_ITS | Encounter Summary ---
Author Organization [employer] Address [address] [facility] 7t [place] [address] Care Team Providers Care Router Operator Radial Name Role Phone Emilie Davis MD Primary Care Provider [phone]- [phone] Morales Echavarria Unavailable Unavailable August Unavailable Fred Castanon Unavailable Ele Mar MD Unavailable [phone] Reason for Visit * Reason Comments Med Refill Encounter Details Date Type Department Care Team (Late st Contact Info) Description 01/01/2023 Refill [facility] MEDICINE [address] [place] [address] Emilie Davis MD 230 [place] [address] Social History Tobacco Use Types Packs/Day Years [...] 8:54 AM EDT T/C to patient via position classification specialist regarding x-ray result. No answer, message [...] 04/26/2025 11:30 AM EST Telemedicine [facility] MEDICINE [address] [place] [address] Emilie Davis MD 230 [place] [address] 06/04/2025 3:00 PM EST Office Visit [facility] OPTOMETRY [address] [place] [address] Gagandeep, Merissa, OD 230 [place] [address] 06/14/2025 9:00 AM EST Nutrition [facility] DIABETES/NUTRITION [address] [place] [address] Raina Renee, ZEENAT [address] [place] [address] documented as of this encounter Visit Diagnoses Not on filedocumented in this encounter Additional Health Concerns Assessment Noted Time PHQ-9 Depression Total Score: 19 023 9:24 AM EDT documented as of this encounter Care Teams Router Operator Radial Relationship Specialty Start Date End Date Emilie Davis MD 230 [place] [address] PCP - General Family Medicine 05/13/18 Morales Echavarria FNP 230 [place] [address] Nurse Practitioner Family Medicine 04/16/23 03/10/25 Aida Orozco [address] [place] [address] Gastroenterology 05/26/24 Fred Castanon [address] [place] [address] 19945 Cardiology 07/21/24 Ele Mar MD [address] [place] [address] Hematology and Oncology 02/22/25 Marina Brown MD Rheumatology 02/10/25 Costa Miller MD Attending Hepatobiliary & Pancreatic Surgeon Division of Surgical Oncology [facility] Surgical Oncology 03/11/25 documented as of this encounter
--- OUTSIDE RECORDS SUMMARY | 2025-04-14 15:58 | XMS_ITS | Encounter Summary ---
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 on file Not on file documented as of this encounter Plan of Treatment Upcoming Encounters Date Type Department Care Team (Late st Contact Info) Description 04/26/2025 11:30 AM EST Telemedicine [facility] MEDICINE 230 [place] [address] Emilie Davis MD [address] [place] [address] 06/04/2025 3:00 PM EST Office Visit [facility] OPTOMETRY [address] [place] [address] Merissa Donis, GINA 230 [place] [address] 06/14/2025 9:00 AM EST Nutrition [facility] DIABETES/NUTRITION 230 [place] [address] [place] [address] documented as of this encounter Procedures Procedure [...] as of this encounter Care Teams Manager Payment Relationship Specialty Start Date End Date Emilie Davis MD [address] [place] [address] PCP - General Family Medicine 05/13/18 Morales Echavarria FNP [address] [place] [address] Nurse Practitioner Family Medicine 04/16/23 03/10/25 Pam Aida [address] [place] [address] Gastroenterology 05/26/24 Fred Castanon [address] [place] [address] 150[address] Cardiology 07/21/24 Ele Mar MD [address] [place] [address] Hematology and Oncology 02/22/25 Marina Brown MD Rheumatology 02/10/25 Costa Miller MD Attending Hepatobiliary & Pancreatic Surgeon Division of Surgical Oncology [facility] Surgical Oncology 03/11/25 documented as of this encounter
--- OUTSIDE RECORDS SUMMARY | 2025-04-14 15:58 | XMS_ITS | Encounter Summary ---
Author Organization [employer] Address [address] [facility] 7t [place] [address] Care Team Providers Care Knife Sharpener Name Role Phone Emilie Davis MD Primary Care Provider [phone]- [phone] Morales Echavarria Unavailable Unavailable August Unavailable Fred Castanon Unavailable Ele Mar MD Unavailable [phone] Reason for Visit * Reason Comments Med Refill Encounter Details Date Type Department Care Team (Late st Contact Info) Description 01/17/2024 Refill [facility] MEDICINE 230 [place] [address] Emilie Davis MD 230 [place], [place] [phone] 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) Social [...] Info) Description 04/26/2025 11:30 AM EST Telemedicine [facility] MEDICINE [address] [place] [address] Emilie Davis MD 230 [place] [address] 06/04/2025 3:00 PM EST Office Visit [facility] OPTOMETRY [address] [place] [address] Gagandeep, Merissa, OD 230 [place] [address] 06/14/2025 9:00 AM EST Nutrition [facility] DIABETES/NUTRITION [address] [place] [address] Raina Renee, ZEENAT [address] [place] [address] documented as of this encounter Visit Diagnoses Diagnosis Gender 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- Primary documented in this encounter Additional Health Concerns Assessment Noted Time PHQ-9 Depression Total Score: 3 04/30/20 23 9:17 AM EST documented as of this encounter Care Teams Knife Sharpener Relationship Specialty Start Date End Date Emilie Davis MD [address] [place] [address] PCP - General Family Medicine 05/13/18 Morales Echavarria FNP [address] [place] [address] Nurse Practitioner Family Medicine 04/16/23 03/10/25 Aida Orozco [address] [place] [address] Gastroenterology 05/26/24 Fred Castanon [address] [place] [address] Cardiology 07/21/24 Ele Mar MD [address] [place] [address] Hematology and Oncology 02/22/25 Marina Brown MD Rheumatology 02/10/25 Costa Miller MD Attending Hepatobiliary & Pancreatic Surgeon Division of Surgical Oncology [facility] Surgical Oncology 03/11/25 documented as of this encounter
--- OUTSIDE RECORDS SUMMARY | 2025-04-14 15:58 | XMS_ITS | Encounter Summary ---
Author Organization [facility] Address [address] [facility] [address] [place] [address] Phone Care Team Providers Care Potato Chip Processing Supervisor Name Role Phone Ryan, Emilie Way MD Primary Care Provi baldomero Encounter Details Date Type Department Care Team (Late st Contact Info) Description 10/28/2018 Procedure Pass OR Admitting Dept - Virtual Department [address] [place] [address] Social History Tobacco Use Types Packs/Day Years [...] st Contact Info) Description 03/30/2025 Procedure Pass [facility] [place] [address] [facility] [place] [address] 05/14/2025 8:30 AM EST Appointment [facility] [place] [address] [facility] [place] [address] Costa Miller MD [address] [place] [address] [email or web address] 05/14/2025 11:00 AM EST Office Visit [facility] [address] [facility], 7th Floor, [address] [place] [address] Costa Miller MD [address] [facility] [address] [place] [address] [email or web address] documented as of this encounter Visit Diagnoses Not on filedocumented in this encounter Care Teams Potato Chip Processing Supervisor Relationship Specialty Start Date End Date [place], Emilie Way MD 230 [place] [address] PCP - General Family Medicine 06/03/18 documented as of this encounter Additional Source Comments The information contained in this document represents components of the legal health record. It is not the complete legal health record.[facility]
--- OUTSIDE RECORDS SUMMARY | 2025-04-14 15:58 | XMS_ITS | Encounter Summary ---
Author Organization [employer] Address [address] [facility] 7t h Floor [place] [id number] Care Team Providers Care Video Operator Name Role Phone Emilie Davis MD Primary Care Provider [phone] Morales Echavarria Unavailable Unavailable August Unavailable Fred Castanon Unavailable Ele Mar MD Unavailable [phone] Reason for Visit * Reason Comments Med Refill Encounter Details Date Type Department Care Team (Late st Contact Info) Description 06/27/2022 Refill [facility] MEDICINE 230 [place] [address] Emilie Davis MD 230 [place], [place] [phone] Social History Tobacco Use Types Packs/Day Years [...] Info) Description 04/26/2025 11:30 AM EST Telemedicine [facility] MEDICINE 230 [place], [place] [phone] Emilie Davis MD 230 [place], [place] [phone] 06/04/2025 3:00 PM EST Office Visit [facility] OPTOMETRY [address] [place] [address] Mreissa Doins, OD 230 [place] [address] 06/14/2025 9:00 AM EST Nutrition [facility] DIABETES/NUTRITION 230 [place] [address] Raina Renee, RD 230 [place] [address] documented as of this encounter Visit Diagnoses Not on filedocumented in this encounter Care Teams Video Operator Relationship Specialty Start Date End Date Emilie Davis MD [address] [place] [address] PCP - General Family Medicine 05/13/18 Morales Echavarria FNP [address] [place] [address] Nurse Practitioner Family Medicine 04/16/23 03/10/25 Pam Aida [address] [place] [address] Gastroenterology 05/26/24 Fred Castanon [address] [place] [address] Cardiology 07/21/24 Ele Mar MD [address] [place] [address] Hematology and Oncology 02/22/25 Marina Brown MD Rheumatology 02/10/25 Costa Miller MD Attending Hepatobiliary & Pancreatic Surgeon Division of Surgical Oncology [facility] Surgical Oncology 03/11/25 documented as of this encounter
--- OUTSIDE RECORDS SUMMARY | 2025-04-14 15:58 | XMS_ITS | Encounter Summary ---
Author Organization [employer] Address [address] [facility] [address] 7t [place] [address] Care Team Providers Care Hide Spreader Name Role Phone Emilie Davis MD Primary Care Provider [phone]- [phone] Orozco, August Unavailable Fred Castanon Unavailable Ele Mar MD Unavailable [phone] Encounter Details Date Type Department Care Team ([facility] st Contact Info) Description 04/05/2025 Telephone [facility] MEDICINE 230 [place], [place] [phone] Emilie Davis MD 230 [place] [address] Social History Tobacco Use Types Packs/Day Years [...] 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 When pts return pt was on the floor (unwitnessed fall) at this time pt complained of chest pain, anddizziness. Ambulance was called at 11:58am. Additional notes at time of occurrence: 11:57am: BP - 136/72, HR - 54, Oxygen Sat: 98% (4L of oxygen given) Blood Glucose: 125 12:02pm: 0.4mg Nitroglycerin Bilingual administered due to chest pain 12:06pm: BP - 121/82 Pt was [place] [facility] at 12:08pm Messag sent to PCP and team nurses as FYI * Telephone Encounter - Ha Miramontes 04/05/2025 9:00 AM EST Tc from pt requesting the referral for oncology to faxed. Any questions contact pt at [phone] documented in this encounter Plan of Treatment Upcoming Encounters Date Type Department Care Team (Late st Contact Info) Description 04/26/2025 11:30 AM EST Telemedicine [facility] MEDICINE 230 [place] [address] Emilie Davis MD 230 [place] [address] 06/04/2025 3:00 PM EST Office Visit [facility] OPTOMETRY [address] [place] [address] Gagandeep, Merissa, OD 230 [place] [address] 06/14/2025 9:00 AM EST Nutrition [facility] DIABETES/NUTRITION 230 [place] [address] Raina Renee, ZEENAT 230 [place] [address] documented as of this encounter Visit Diagnoses Not on filedocumented in this encounter Additional Health Concerns Assessment Noted Time PHQ-9 Depression Total Score: 9 03/03/20 25 4:53 PM EDT documented as of this encounter Care Teams Hide Spreader Relationship Specialty Start Date End Date Emilie Davis MD [address] [place] [address] PCP - General Family Medicine 05/13/[address] [place] [address] Gastroenterology 05/26/24 Fred Castanon [address] [place] [address] Cardiology 07/21/24 Ele Mar MD 5 [place] [address] Hematology and Oncology 02/22/25 Marina Brown MD Rheumatology 02/10/25 Costa Miller MD Attending Hepatobiliary & Pancreatic Surgeon Division of Surgical Oncology [facility] Surgical Oncology 03/11/25 documented as of this encounter
--- OUTSIDE RECORDS SUMMARY | 2025-04-14 15:59 | XMS_ITS | Clinical Summary ---
Author Organization [facility] Address [address] [place] [address] Phone Care Team Providers Care Edi Specialist Name Role Phone Unavailable Primary Care Provider Unavailabl e Encounters Date Type Department Care Team Description 03/04/2025 3:00 PM EDT - 03/04/2025 11:59 PM EDT Hospital Encounter [facility] PET Scan [address] [place] [address] Adenocarcinoma of pancreas (CMS/HCC V24, [...] Signed Date: 03/05/2025 03:48 ET Workstation ID: [id number] Transcribed By: Self Edit Transcribed Date: 03/05/2025 [...] Signed Date: 03/05/2025 03:48 ET Workstation ID: [id number] Transcribed By: Self Edit Transcribed Date: 03/05/2025 03:19 ET Ele Mar MD IMG NM PROCEDURES Final Result from Last 3 Months Insurance [facility]
--- OUTSIDE RECORDS SUMMARY | 2025-04-14 15:59 | XMS_ITS | Encounter Summary ---
Author Organization [employer] Address [address] [facility] 7t [place] [address] Care Team Providers Care Floor Covering Installer Name Role Phone Emilie Davis MD Primary Care Provider [phone] Morales Echavarria Unavailable Unavailable August Unavailable Fred Castanon Unavailable Ele Mar MD Unavailable [phone] Reason for Visit * Reason Onset Date Comments Med Refill 04/22/2024 Encounter Details Date Type Department Care Team (Late st Contact Info) Description 04/22/2024 Telephone [facility] MEDICINE [address] [place] [address] Emilie Davis MD 230 [place] [address] Med Refill Social History Tobacco Use Types [...] 200 MG/5ML suspension To be sent to: [facility] [place] - [address] documented in this encounter Plan of Treatment Upcoming Encounters Date Type Department Care Team ([facility] st Contact Info) Description 04/26/2025 11:30 AM EST Telemedicine [facility] MEDICINE [address] [place] [address] Emilie Davis MD 230 [place] [address] 06/04/2025 3:00 PM EST Office Visit [facility] OPTOMETRY [address] [place] [address] Merissa Donis, OD 230 [place] [address] 06/14/2025 9:00 AM EST Nutrition [facility] DIABETES/NUTRITION [address] [place] [address] Czepiel, Raina, RD 230 [place] [address] documented as of this encounter Visit Diagnoses Not on filedocumented in this encounter Additional Health Concerns Assessment Noted Time PHQ-9 Depression Total Score: 3 04/30/20 9:17 AM EST documented as of this encounter Care Teams Floor Covering Installer Relationship Specialty Start Date End Date Emilie Davis MD 230 [place] [address] PCP - General Family Medicine 05/13/18 Morales Echavarria FNP [address] [place] [address] Nurse Practitioner Family Medicine 04/16/23 03/10/25 Aida Orozco [address] [place] [address] Gastroenterology 05/26/24 Fred Castanon [address] [place] [address] 1988[address] Cardiology 07/21/24 Ele Mar MD [address] [place] [address] Hematology and Oncology 02/22/25 Marina Brown MD Rheumatology 02/10/25 Costa Miller MD Attending Hepatobiliary & Pancreatic Surgeon Division of Surgical Oncology [facility] Surgical Oncology 03/11/25 documented as of this encounter
--- OUTSIDE RECORDS SUMMARY | 2025-04-14 15:59 | XMS_ITS | Clinical Summary ---
Author Organization [employer] Address [address] [place] [address] Care Team Providers Care Methods Specialist Name Role Phone Emilie Davis MD Primary Care Provider [phone] Orozcoaugust Unavailable Fred Castanon Unavailable Ele Mar MD Unavailable [phone] Allergies Active Allergy Reactions Criticality Noted [...] mg) by mouth at bedtime. 30 tablet 04/05/20 25 8:53 AM EST 025 2024 Active Needle, Disp, (BD Disp [place]) 25G X 5/8 miscIndication s:Gender 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 USE TO INJECT Testosterone INTRAMUSCULARLY EVERY 2 WEEKS DIRECTED 25 each 3 024 2024 Discontinued Needle, Disp, (BD Hypodermic Needle) 16G X 1 miscIndication s:Gender 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 USE TO DRAW UP testosterone EVERY 2 WEEKS 24 each 1 024 2024 Discontinued BD Plastipak Syringe [...] Ventrogluteal 3 mL 5 025 2024 Discontinued testosterone cypionate (Depo-Testoste avi) 200 MG/ML injectionIndic ations:Gender dysphoria INJECT 0.5 ML INTRAMUSCULARLY EVERY 2 WEEKS 2 mL 2 025 2024 Discontinued Active Problems [...] ultrasound and biopsy of this mass at [facility] on 02/18/2025. FNA of pancreatic head [...] -Staging CT chest with contrast performed at [facility] on 02/23/2025 showed no evidence of metastaticdisease in chest. Mild coronary artery calcifications, calcified granulomas with soft tissue nodules unchanged since 2018 and considered benign. -Clinical stage T2 N0 -Seen by Dr. Jj oncologist 02/25/25 where she discussed role of preoperative or neoadjuvant chemotherapy for downsizing tumor. He was referred to [facility] surgical Oncology but they did not take his insurance so he was referred to [place] for Surgical Oncology . -He received his portacath Chemotherapy with FOLFIRINOX regimen will be discussed. -Family history of breast cancer and personal history of pancreatic cancer. BRCA1 and 2 and 40 gene panel sent to [facility]. -Nutrition consult has been placed. -Note for surgical oncologist 03/09/25 Dr. Costa Miller MD Attending Hepatobiliary & Pancreatic Surgeon Division of Surgical Oncology [facility] resectable pancreatic adenocarcinoma. He is young, [...] ultrasound and biopsy of this mass at [facility] on 02/18/2025. FNA of pancreatic head [...] -Staging CT chest with contrast performed at [facility] on 02/23/2025 showed no evidence of metastaticdisease in chest. Mild coronary artery calcifications, calcified granulomas with soft tissue nodules unchanged since 2018 and considered benign. -Clinical stage T2 N0 -Seen by Dr. Jj oncologist 02/25/25 where she discussed role of preoperative or neoadjuvant chemotherapy for downsizing tumor. He was referred to [facility] surgical Oncology but they did not take his insurance so he was referred to [place] for Surgical Oncology . -He received his portacath Chemotherapy with FOLFIRINOX regimen will be discussed. -Family history of breast cancer and personal history of pancreatic cancer. BRCA1 and 2 and 40 gene panel sent to [facility]. -Nutrition consult has been placed. -Note for surgical oncologist 03/09/25 Dr. Costa Miller MD Attending Hepatobiliary & Pancreatic Surgeon Division of Surgical Oncology [facility] resectable pancreatic adenocarcinoma. He is young, [...] ultrasound and biopsy of this mass at [facility] on 02/18/2025. FNA of pancreatic head [...] -Staging CT chest with contrast performed at [facility] on 02/23/2025 showed no evidence of metastaticdisease in chest. Mild coronary artery calcifications, calcified granulomas with soft tissue nodules unchanged since 2018 and considered benign. -PET scan has been ordered. -Clinical stage T2 N0 -Seen by Dr. Jj oncologist 02/25/25 where she discussed role of preoperative or neoadjuvant chemotherapy for downsizing tumor. He was referred to [facility] surgical Oncology but they did not take his insurance so he was referred to [place] for Surgical Oncology . -If the plan is to go ahead with chemotherapy, he would get a Port-A-Cath placed by intervention Radiology. Chemotherapy with FOLFIRINOX regimen will be discussed. -Family history of breast cancer and personal history of pancreatic cancer. BRCA1 and 2 and 40 gene panel sent to [facility]. -Chronic dysphagia and underweight. Nutrition consult has been placed. Orders: Referral to Nutrition Therapy; Future Referral to Surgical Oncology; Future Idiopathic acute pancreatitis without infection or necrosis 12/31/2024 Overview (12/31/2024): -dx at [facility] 12/2024 Patient admitted to general medical [...] Coronary artery disease invo lving [place] heart without angina pectoris 05/20/2024 Overview (10/15/2024): [...] 03/18/2024 -03/2024 call from Holli at [facility] who reports pt originally positive for syphilis in [place] 09/18/1990 (RPR of 1:4) and was treated. [...] care facilitated by Alessio. -dental home is [facility] -health care proxy filed 03/16/24 Assessment & Plan (03/17/2024 6:12 AM EST): -next physical exam due after 03/16/2025 -eye care facilitated by Alessio. -dental home is [facility] -health care proxy filed 03/16/24 Assessment & Plan (03/22/2023 9:17 AM EST): -next physical exam due after 12/07/2023. -eye care facilitated by [facility]. -dental home is outside of [facility] Assessment & Plan (12/06/2022 10:19 AM EDT): -next physical exam dueafter 12/07/2023. -eye care facilitated by [facility]. -dental home is outside of [facility] Hx of hepatitis C 11/26/2022 Overview (11/26/2022): [...] He was referred back to rheumatology in [place] 08/23/2020 but provider left the area. started on Tramadol. Take 3 times per week. He is not taking at this time -note from head lineman Dr. Marina Brown MD from 02/09/25 reviewed Assessment & Plan (03/17/2024 6:08 AM EST): X rays suggests osteoarthritis. Seen by rheumatology in [place]. Ibuprofen and NSAIDs cause gastritis. Minimal relief with acetaminophen. He was referred back to rheumatology in [place] 08/23/2020 but provider left the area. started on Tramadol. Take 3 times per week. He is not taking at this time. Assessment & Plan (03/22/2023 9:15 AM EST): X rays suggests osteoarthritis. Seen by rheumatology in [place]. Ibuprofen and NSAIDs cause gastritis. Minimal relief with acetaminophen. He was referred back to rheumatology in [place] 08/23/2020 but provider left the area. started on Tramadol. Take 3 times per week. Will need COT in the future. Assessment & Plan (12/06/2022 8:54 AM EDT): X rays suggests osteoarthritis. Seen by rheumatology in [place]. Ibuprofen and NSAIDs cause gastritis. Minimal relief with acetaminophen. He was referred back to rheumatology in [place] 08/23/2020 but provider left the area. started on Tramadol. Take 3 times per week. Will need COT in the future. Assessment & Plan (10/11/2022 9:58 AM EDT): X rays suggests osteoarthritis. Seen by rheumatology in [place]. Ibuprofen and NSAIDs cause gastritis. Minimal relief with acetaminophen. He was referred back to rheumatology in [place] 08/23/2020 but provider left the area. started [...] Now with palpitations. Will refer to his hospital fellow for bradycardia. Assessment & Plan (03/22/2023 9:16 AM EST): Sinus bradycardia and asymptomatic. Pt states he always has slow heart rate Pt repots heart rate in 40s recorded with home BP monitor with symptoms of dizziness recorded at home. Now with palpitations. Will refer to his hospital fellow for bradycardia. Assessment & Plan (12/06/2022 8:54 AM EDT): Sinus bradycardia and asymptomatic. Pt states he always has slow heart rate Pt repots heart rate in 40s recorded with home BP monitor with symptoms of dizziness recorded at home. Now with palpitations. Will refer to his hospital fellow for bradycardia. Assessment & Plan (10/11/2022 9:58 AM EDT): Sinus bradycardia and asymptomatic. Pt states he always has slow heart rate Pt repots heart rate in 40s recorded with home BP monitor with symptoms of dizziness recorded at home. Now with palpitations. Will refer to his hospital fellow for bradycardia. Generalized abdominal pain 06/25/2021 Overview [...] for GI. Insurance no longer accepted at [facility]. -EGD scheduled for December 2021. -10/19/24 IMPRESSION: Normal 4-hour solid food gastric emptying study. -note from August10/21/24 reveiwed [place] gastric emptying study [place] barium swallow H pylori Ag Stool ordered -note from August Orozco 12/04/24 reviewed, Kaushik jackson -esophageal barium [...] for GI. Insurance no longer accepted at [facility]. -EGD scheduled for December 2021. Assessment [...] for GI. Insurance no longer accepted at [facility]. -EGD scheduled for December 2021. Assessment [...] for GI. Insurance no longer accepted at [facility]. -EGD scheduled for December 2021. Assessment [...] for GI. Insurance no longer accepted at [facility]. -EGD scheduled for December 2021. History [...] lung 10/04/2017 Overview (05/20/2024): -Ct scan in [place] [facility] on 12/25/2017 showed multiple indeterminate nodules, [...] 11/15/23 and NO SHOW. Pt can call [phone] to schedule mariely. number given to call 03/16/24 -CT 05/08/24 No acute intrathoracic findings. Calcified granulomas present bilaterally. No suspicious pulmonary nodule identified. Air-fluid level present within the midthoracic esophagus can be associated with gastroesophageal reflux disease and esophageal dysmotility. Coronary artery atherosclerosis. Assessment & Plan (05/20/2024 4:05 PM EST): -Ct scan in [facility] on 12/25/2017 showed multiple indeterminate nodules, [...] 11/15/23 and NO SHOW. Pt can call [phone] to schedule mariely. number given to call 03/16/24 -CT 05/08/24 No acute intrathoracic findings. Calcified granulomas present bilaterally. No suspicious pulmonary nodule identified. Air-fluid level present within the midthoracic esophagus can be associated with gastroesophageal reflux disease and esophageal dysmotility. Coronary artery atherosclerosis. Assessment & Plan (03/17/2024 6:13 AM EST): -Ct scan in [facility] on 12/25/2017 showed multiple indeterminate nodules, [...] 11/15/23 and NO SHOW. Pt can call [phone] to schedule mariely. number given to call 03/16/24 Assessment & Plan (03/22/2023 9:16 AM EST): -Ct scan in [place] [facility] on 12/25/2017 showed multiple indeterminate nodules, largest was solid and measured 2mm. -Given that the Pt has a tobacco Hx and quit in 2018 we referrred to pulmonology that was likely distrupted by the pandemic. -Will ordered repeat CT of chest to follow the nodles. Assessment & Plan (12/06/2022 10:18 AM EDT): -Ct scan in [place] [facility] on 12/25/2017 showed multiple indeterminate nodules, [...] information should questions or concerns arise. Plan: Jadnell will continue to engage in effective coping mechanisms that has work for they, also will try to implement depressive coping skills. They will be referred for OP services and referral to [facility] Psychopharmacology clinic. Provided Crisis contact number in [...] engagement. PLAN: 1. Follow up with [facility]: Not recommended for follow-up 2. Patient goal is to learn coping mechanisms to manage sxs. 3. Behavioral Recommendations a. Ind. Therapy and Medication Management b. Continue using coping skills c. [facility] support as needed. Mild major depression 06/25/[id number] Encounters * This document contains information received from the source organization and may not represent a complete record from that organization. Date Type Department Care Team Description 04/14/2025 Orders Only GENERIC EXTERNAL DATA DEPARTMENT Provider, [facility] External Data 04/05/2025 Telephone [facility] MEDICINE [address] [place] [phone] Emilie Davis MD 03/31/2025 10:15 AM EST Telemedicine [address] [address] Emilie Davis MD Pancreatic adenocarcinoma (CMS/HCC) (HCC) (Primary Dx); Dietary counseling; Exercise counseling; Underweight; Primary insomnia 03/31/2025 Orders Only GENERIC EXTERNAL DATA DEPARTMENT Provider, Generic External Data 03/31/2025 Travel 03/30/2025 2:00 PM EST Office Visit [address] [address] Vitaliy Martinez MD Abdominal pain of multiple sites (Primary Dx) 03/30/2025 Orders Only GENERIC EXTERNAL DATA DEPARTMENT Provider, Generic External Data 03/30/[address] [address] Bijal Irene, ASSEMBLY LINE ROBOT OPERATOR Follow-up 03/30/2025 Travel 03/30/[address] [address] Emilie Davis MD chart prep 03/30/[address] [address] Emilie Davis MD Nurse Triage 03/22/2025 Orders Only GENERIC EXTERNAL DATA DEPARTMENT Provider, Generic External Data 03/19/[address] [address] Emilie Davis MD chart prep 03/19/[address] [address] Emilie Davis MD 03/18/[address] [address] Emilie Davis MD Chart Prep 03/16/2025 Orders Only GENERIC EXTERNAL DATA DEPARTMENT Provider, Generic External Data 03/11/[address] [address] Medina Lewis, RONALD 03/04/2025 Orders Only [address] [address] Emilie Davis MD Pancreatic adenocarcinoma ([facility]/HCC) (HCC) (Primary Dx) 03/03/2025 9:30 AM EDT Office Visit [address] [address] Emilie Davis MD Pancreatic adenocarcinoma ([facility]/HCC) (HCC) (Primary Dx); Insomnia secondary to depression with anxiety 03/03/2025 Travel 02/26/[address] [address] Emilie Davis MD Interoffice Coordination 02/25/2025 1:40 PM EDT Office Visit [facility] [address] [place] [address] Ann-Marie Muhammad MD Pain of left calf (Primary Dx); Pancreatic adenocarcinoma (CMS/HCC) (HCC) 02/25/2025 Results Follow-Up [facility] [address] [place] [address] Ann-Marie Muhammad MD Lower Extremity Venous Duplex 02/25/[address] [facility] [address] [place] [address] Ann-Marie Muhammad MD 02/25/2025 Travel 02/24/2025 Orders Only [place] [facility] [address] [place] [address] Sammy Dowd MD Pancreatic mass (Primary Dx) 02/23/2025 Patient Outreach [facility] [address] [place] [phone] Emilie Davis MD Pre-visit Planning (Pre-visit planning - LVM ) 02/22/[address] [facility] [address] [place] [address] Emilie Davis MD Transition Of Care (Tcm) (Unscheduled ) 02/22/2025 Telephone [facility] [address] [place] [address] Emilie Davis MD Hospital Follow-up 02/19/2025 Orders Only [facility] [address] [place] [phone] Sammy Dowd MD 02/19/2025 Telephone [facility] [address] [place] [address] Emilie Davis MD 02/18/2025 Orders Only GENERIC EXTERNAL DATA DEPARTMENT Provider, Generic External Data 02/16/[address] [address] Medina Lewis, RONALD 02/09/2025 Orders Only [facility] External Provider, [facility] Chronic bilateral low back pain, unspecified whether sciatica present (Primary Dx) 02/05/2025 Orders Only [facility] [address] [place] [phone] Emilie Davis MD Depression, unspecified depression type (Primary Dx) 02/04/[address] [address] Emilie Davis MD Care Coordination; Referral 02/04/[address] [address] Emilie Davis MD Referral; Care Coordination 02/02/2025 Orders Only [address] [address] Kayla Sellers, RONALD 02/01/2025 Orders Only GENERIC EXTERNAL DATA DEPARTMENT Provider, Generic External Data 01/27/2025 11:00 AM EDT Clinical Support [address] [address] Medina Lewis, RONALD On pre-exposure prophylaxis for HIV (Primary Dx) 01/27/2025 Orders Only [address] [address] Emilie Davis MD 01/27/2025 Travel 01/21/2025 Travel 01/19/2025 Orders Only [facility] External Provider, [facility] Pancreatic mass (Primary Dx) 01/15/2025 Orders Only GENERIC EXTERNAL DATA DEPARTMENT Provider, Generic External Data 01/14/2025 Orders Only [facility] External Provider, [facility] Generalized abdominal pain (Primary Dx) from [...] 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[employer] Not on file Not on [...] Info) Description 04/26/2025 11:30 AM EST Telemedicine [facility] MEDICINE [address] [place] [address] Emilie Davis MD [address] [place] [address] 06/04/2025 3:00 PM EST Office Visit [facility] OPTOMETRY [address] [place] [address] Gagandeep, Merissa, OD [address] [place] [address] 06/14/2025 9:00 AM EST Nutrition [facility] DIABETES/NUTRITION [address] [place] [address] Raina Renee, ZEENAT [address] [place] [address] Health Maintenance Due Date Last Done Comments [...] exists Hepatitis A Vaccines Completed 03/16/2024, 12/08/19 Hepatitis [...] REFLEX MICROSCOPIC Routine 04/14/2025 2:[address] ABDOMEN PELVIS W CONTRAST Routine 03/31/2025 7:21 PM EST BLOOD CULTURE (SECOND) Routine 5:51 PM EST SLIDE REVIEW Routine 03/31/2025 5:24 PM EST COMPLETE BLOOD COUNT MAN DIF Routine 03/31/2025 5:24 PM EST LIPASE Routine 03/31/2025 5:24 PM EST COMPREHENSIVE METABOLIC PANEL Routine 03/31/2025 5:24 PM EST LACTIC ACID Routine 03/31/2025 5:24 PM EST CBC WITH AUTO DIFFERENTIAL Routine 03/31/2025 5:24 PM EST BLOOD CULTURE (FIRST) Routine 03/31/2025 5:24 PM EST URINALYSIS WITH [...] AM EST IR CVC INSERT TUNNEL W PRT/COMMERCIAL ROOFER Routine 03/16/2025 8:20 AM EST PROTHROMBIN TIME-INR [...] 01/27/2025 11:53 AM EDT CHLAMYDIA/GONORRHEA THROAT SWAB (AK DP) Routine 01/27/2025 MR ABDOMEN W AND [...] BARIUM SWALLOW Routine 01/14/2025 9:40 AM EDT LIPID PANEL, STANDARD Routine 07/24/2024 1:36 PM EDT HPV MRNA E6/E7 REFLEX TO HPV 16, 18/45 Routine 03/22/2023 11:30 AM EST PAP SMEAR Routine 03/22/2023 11:30 AM EST HM COLONOSCOPY Routine 01/30/2018 from Last 3 Months or Most Recently Relevant to Health Maintenance Results * Urinalysis w/reflex microscopic (04/14/2025 2:49 PM EST) Only the most recent of2 resultswithin the time period is included. Color Urine Yellow [facility] Appearance Urine Clear [facility] PH 5.5 5.0 - 9.0 [facility] Glucose Urine UA Negative Negative mg/dL [facility] Urine Blood Negative Negative [facility] Specific [place] - Urine 1.020 1.005 - 1.025 [facility] Urine Protein Trace Neg-Trace mg/dL [facility] Urine Ketones Negative Negative mg/dL [facility] Nitrite Urine Negative Negative [facility] Leukocyte Esterase Urine Negative Negative [facility] 04/14/2025 2:49 PM EST 04/14/2025 2:52 PM EST Narrative [facility] - 04/14/2025 2:59 PM EST [id number], Clean Catch us Generic External Data Provider LAB URINE ORDERAB LES Final Result [facility] [address] [place] [phone] * CT Abdomen Pelvis w/ Contrast (03/31/2025 7:21 PM EST) Only the most recent of3 resultswithin the time period is included. Anatomical Region Laterality Modality Body, Pelvis, Abdomen Computed T omography 03/31/2025 7:21 PM EST Narrative 03/31/2025 7:22 PM EST [address] [address] [address] Scan Report Signed Patient: Harriet Valdez MR#: [id number] : 1970 Acct:[id number] Age/Sex: 55 / F ADM Date: 03/31/25 Loc: HO.ED Attending Dr: Ordering Physician: Cheryl Cobb DO Date of Service: 03/31/25 Procedure(s): CT abdomen pelvis w IV con Accession Number(s): [id number] cc: Emilie Davis MD; Cheryl Cobb DO Report Number: [id number]: Total DLP = 551.00 mGy-cm Reason for Exam: abdominal pain CLINICAL HISTORY: abdominal pain CT abdomen and pelvis with contrast Comparison: CT/REG/SR - CT ABDOMEN PELVIS W IV CON - 02/18/25 19:33 EDT MR - MR ABDOMEN WO/W CON - 01/19/25 10:[address]/REG/SC/SR - CT ABDOMEN PELVIS WITH IV CONTRAST [...] in OV> 03/31/251921 DD/ 20 TD/TT: 03/31/251920 Bit Shaver: Procedure Note Donotuseinterpreter, Image - 03/31/[address] [address] [address] Scan Report Signed Patient: Harriet ValdezMR#: [id number] : 1970Acct:[id number] Age/Sex: 55 / FADM Date: 03/31/25 Loc: HO.ED Attending Dr: Ordering Physician: Cheryl Cobb DO Date of Service: 03/31/25 Procedure(s): CT abdomen pelvis w IV con Accession Number(s): [id number] cc: Emilie Davis MD; Cheryl Cobb DO Report Number: [id number]: Total DLP = 551.00 mGy-cm Reason for Exam: abdominal pain CLINICAL HISTORY: abdominal pain CT abdomen and pelvis with contrast Comparison: CT/REG/SR - CT ABDOMEN PELVIS W IV CON - 02/18/25 19:33 EDT MR - MR ABDOMEN WO/W CON - 01/19/25 10:[address]/REG/SC/SR - CT ABDOMEN PELVIS WITH IV CONTRAST [...] in OV> 03/31/251921 DD/ 20 TD/TT: 03/31/251920 Bit Shaver: [facility] External Provider IMG CT PROCEDURES Final Result * Blood Culture (Second) (03/31/2025 5:51 PM EST) Blood Venous blood specimen / Unknown 03/31/2025 5:51 PM EST 03/31/2025 6:15 PM EST Comment:Blood Narrative [facility] - 04/05/2025 8:16 PM EST Blood Culture (Second) No growth after 5 days. Specimen Source: Blood Generic External Data Provider LAB MICROBIOLOGY - GENERAL ORDERABLES Final Result Performing Organization Address [facility] de Phone Number [facility] [address] [place] [phone] * Slide Review (03/31/2025 5:24 PM EST) Slide Review MANUAL DIFF [facility] 03/31/2025 5:24 PM EST 03/31/2025 5:35 PM EST Generic External Data Provider LAB BLOOD ORDERAB LES Final Result Performing Organization Address [facility] de Phone Number [facility] [address] [place] [phone] * Blood Culture (First) (03/31/2025 5:24 PM EST) Blood Venous blood specimen / Unknown 03/31/2025 5:24 PM EST 03/31/2025 5:43 PM EST Comment:Blood Narrative [facility] - 04/05/2025 7:44 PM EST Blood Culture (First) No growth after 5 days. Specimen Source: Blood Generic External Data Provider LAB MICROBIOLOGY - GENERAL ORDERABLES Final Result [facility] [address] [place], [place] [phone] * (ABNORMAL) Complete Blood Count Manual Diff (03/31/2025 5:24 PM EST) White Blood Count 4.9 4.8 - 10.8 X10*3/uL [facility] Red Blood Count 3.92(L) 4.20 - 5.50 X10*6/uL [facility] Hemoglobin 11.4(L) 12.0 - 16.0 g/dl [facility] Hematocrit 33.9(L) 37.0 - 47.0 % [facility] Mean Corpuscular Volume 86.5 80.0 - 98.0 fL [facility] Mean Corpuscular Hemoglobin 29.1 27.0 - 33.0 pg [facility] Mean Corpuscular HGB Conc 33.6 31.0 - 35.0 g/dl [facility] Red Cell Distribution Width 13.2 11.0 - 16.0 % [facility] Platelet Count 266 160 - 400 X10*3/uL [facility] Mean Platelet Volume 8.8(L) 9.4 - 12.3 fL [facility] NRBC Pct Auto 0.0 0.0 - 0.2 /100WBC [facility] NRBC Abs Auto 0.000 0.0 - 0.012 X10*3/uL [facility] Neutrophils % Manual 13(L) 45 - 73 % [facility] Band Neutrophils Percent 9(H) 3 - 5 % [facility] Lymphocytes Percent Manual 63(H) 20 - 40 % [facility] Atypical Lymphs Percent Manual 3 0 - 6 % [facility] Monocytes Percent Manual 11 2 - 11 % [facility] EOSINOPHILS % MANUAL 1 0 - 4 % [facility] NEUTROPHILS ABSOLUTE MANUAL 1.1(L) 2.0 - 8.3 X10*3/uL [facility] LYMPHOCYTES ABSOLUTE MANUAL 3.1 1.2 - 4.9 X10*3/uL [facility] Atypical Lymph Absolute Manual 0.1 x10*3/uL [facility] MONOCYTES ABSOLUTE MANUAL 0.5 0.1 - 1.2 X10*3/uL [facility] Platelet Estimate NORMAL NORMAL [facility] Platelet Morphology Comment NORMAL [facility] RBC Morphology NOTED [facility] [place] Cells 1+ (0-2) /OIF [facility] 03/31/2025 5:24 PM EST 03/31/2025 5:35 PM EST us Generic External Data Provider LAB BLOOD ORDERAB LES Final Result [facility] [address] [place] [phone] * (ABNORMAL) CBC auto differential (03/31/2025 5:24 PM EST) Only the most recent of5 resultswithin the time period is included. White Blood Count 4.9 4.8 - 10.8 X10*3/uL [facility] Red Blood Count 3.92(L) 4.20 - 5.50 X10*6/uL [facility] Hemoglobin 11.4(L) 12.0 - 16.0 g/dl [facility] Hematocrit 33.9(L) 37.0 - 47.0 % [facility] Mean Corpuscular Volume 86.5 80.0 - 98.0 fL [facility] Mean Corpuscular Hemoglobin 29.1 27.0 - 33.0 pg [facility] Mean Corpuscular HGB Conc 33.6 31.0 - 35.0 g/dl [facility] Red Cell Distribution Width 13.2 11.0 - 16.0 % [facility] Platelet Count 266 160 - 400 X10*3/uL [facility] Mean Platelet Volume 8.8(L) 9.4 - 12.3 fL [facility] Neutrophils Percent Auto 23.3(L) 45 - 73 % [facility] Imm Gran Pct Auto 0.2 0.0 - 0.4 % [facility] Lymphocytes Percent Auto 48.7(H) 20 - 40 % [facility] Monocytes Percent Auto 24.6(H) 2 - 11 % [facility] Eosinophils Percent Auto 2.4 0 - 4 % [facility] Basophils Percent Auto 0.8 0 - 2 % [facility] NRBC Pct Auto 0.0 0.0 - 0.2 /100WBC [facility] Neutrophils Absolute Auto 1.1(L) 2.0 - 8.3 x10*3/uL [facility] Imm Gran Abs Auto 0.01 0.00 - 0.03 X10*3/uL [facility] Lymphocytes Absolute Auto 2.4 1.2 - 4.9 X10*3/uL [facility] Monocytes Absolute Auto 1.2 0.1 - 1.2 X10*3/uL [facility] Eosinophils Absolute Auto 0.1 0.0 - 0.4 X10*3/uL [facility] Basophils Absolute Auto 0.0 0.0 - 0.2 X10*3/uL [facility] NRBC Abs Auto 0.000 0.0 - 0.012 X10*3/uL [facility] 03/31/2025 5:24 PM EST 03/31/2025 5:35 PM EST us Generic External Data Provider LAB BLOOD ORDERAB LES Edited Result - Final [facility] [address] [place] [phone] * Lipase (03/31/2025 5:24 PM EST) Only the most recent of4 resultswithin the time period is included. Lipase 25 8 - 78 U/L [facility] 03/31/2025 5:24 PM EST 03/31/2025 5:35 PM EST us Generic External Data Provider LAB BLOOD ORDERAB LES Final Result Performing Organization Address City/[facility]/ZIP Co de Phone Number [facility] [address] [place] [phone] * Lactic Acid (03/31/2025 5:24 PM EST) Only the most recent of3 resultswithin the time period is included. Lactic Acid 0.7 0.5 - 2.0 mmol/L [facility] 03/31/2025 5:24 PM EST 03/31/2025 5:35 PM EST us Generic External Data Provider LAB BLOOD ORDERAB LES Final Result Performing Organization Address [facility] de Phone Number [facility] [address] [place] [phone] * (ABNORMAL) Comprehensive Metabolic Panel (03/31/2025 5:24 PM EST) Only the most recent of3 resultswithin the time period is included. Sodium 138 135 - 145 mmol/L [facility] Potassium 3.8 3.3 - 5.1 mmol/L [facility] Chloride 103 96 - 108 mmol/L [facility] Carbon Dioxide 25 22 - 29 mmol/L [facility] Anion Gap 14 12 - 20 [facility] Urea Nitrogen (BUN) 6(L) 9 - 16 mg/dL [facility] Creatinine, Serum 0.59 0.5 - 1.4 mg/dL [facility] Creatinine Clr Calc Pharmacy 75.4 [facility] Comment:Provided height and weight: 165.1 cm,44.9 kg.eGFR (calculated from the MDRD study equation) and eCrCl(calculated from the Cockcroft-Gault equation) are based ondifferent parameters and may not yield comparable results.If eCrCl result is absurd, please check patient'sheight/weight. Estimated Glomerular Filt Rate >60 [facility] Comment:Chronic Kidney Disea se: Estimated GFR < 60 mL/min/1.84r7[place] Kidney Disease: Estimated GFR < 15 mL/min/1.73m2 Glucose 85 60 - 115 mg/dL [facility] Calcium 8.8 8.4 - 10.2 mg/dL [facility] Bilirubin, Total 0.2 0.0 - 1.0 mg/dL [facility] Aspartate Amino Transferase 15 5 - 31 U/L [facility] Alanine Aminotransferase 6 0 - 31 U/L [facility] Total Protein 6.3(L) 6.5 - 8.0 g/dL [facility] Albumin Level 3.4(L) 3.5 - 5.0 g/dL [facility] Alkaline Phosphatase 71 39 - 117 U/L [facility] 03/31/2025 5:24 PM EST 03/31/2025 5:35 PM EST us Generic External Data Provider LAB BLOOD ORDERAB LES Final Result Performing Organization Address City/State/[facility] Co de Phone Number [facility] [address] [place] [address] [phone] * (ABNORMAL) Urinalysis, Complete, with Reflex to Culture (03/22/2025 1:42 PM EST) Color Urine Yellow [facility] Appearance Urine Clear [facility] PH 7.5 5.0 - 9.0 [facility] Glucose Urine UA Negative Negative mg/dL [facility] Urine Blood Negative Negative [facility] Specific [place] - Urine 1.010 1.005 - 1.025 [facility] Urine Protein Negative Neg-Trace mg/dL [facility] Urine Ketones Negative Negative mg/dL [facility] Nitrite Urine Negative Negative [facility] Leukocyte Esterase Urine Trace(A) Negative [facility] RBC Urine 0-2 0 - 2 /HPF [facility] Urine WBC 0-5 0 - 5 /HPF [facility] Urine Squamous Epithelial Cell 3-5 0 - 2 /HPF [facility] Urine Bacteria None Seen None Seen [facility] Hyaline Casts, Urine 0-2 0 - 2 /LPF [facility] 03/22/2025 1:42 PM EST 03/22/2025 1:51 PM EST Narrative [facility] - 03/22/2025 2:03 PM EST [id number], Clean Catch us Generic External Data Provider LAB URINE ORDERAB LES Final Result Performing Organization Address City/State/[facility] Co de Phone Number [facility] [address] [place] [phone] * CTA Chest PE Protocal (03/22/2025 1:03 PM EST) Anatomical Region Laterality Modality Body, Chest Computed Tomogra phy 03/22/2025 1:03 PM EST Narrative 03/22/2025 2:15 PM EST [address] [address] [address] Scan Report Signed Patient: Harriet Valdez MR#: [id number] : 1970 Acct:[id number] Age/Sex: 55 / F ADM Date: 03/22/25 Loc: HO.ED Attending Dr: Ordering Physician: Virginia Monroe DO Date of Service: 03/22/25 Procedure(s): CT angio chest PE protocol Accession Number(s): [id number] cc: Emilie Davis MD; Virginia Monroe DO Report Number: [id number]: Total DLP = 210.00 mGy-cm Reason for [...] by: Huseyin Cerna MD 03/22/2025 02:12 PM [facility] Dictated By: Huseyin Cerna MD Signed By: <Electronically signed by Huseyin Cerna MD in OV> 03/22/25 1412 DD/ 1303 TD/TT: 03/22/25 1341 Bit Shaver: RAVINDRA Procedure Note Donotuseinterpreter, Image - 03/22/[address] [address] [address] Scan Report Signed Patient: Harriet ValdezMR#: [id number] : 1970Acct:[id number] Age/Sex: 55 / FADM Date: 03/22/25 Loc: HO.ED Attending Dr: Ordering Physician: Granville,Virginia DO Date of Service: 03/22/25 Procedure(s): CT angio chest PE protocol Accession Number(s): [id number] cc: Emilie Davis MD; Mabel,Mel Report Number: [id number]: Total DLP = 210.00 mGy-cm Reason for [...] 03/22/25 1412 DD/ 1303 TD/TT: 03/22/25 1341 Bit Shaver: RAVINDRA [facility] External Provider IMG CT PROCEDURES Edited Result - Final * CT Head w/o Contrast (03/22/2025 1:03 PM EST) Anatomical Region Laterality Modality Head, Neck Computed Tomogra phy 03/22/2025 1:03 PM EST Narrative 03/22/2025 1:51 PM EST [address] [address] [address] Scan Report Signed Patient: Harriet Valdez MR#: [id number] : 1970 Acct:[id number] Age/Sex: 55 / F ADM Date: 03/22/25 Loc: HO.ED Attending Dr: Ordering Physician: Virginia Monroe DO Date of Service: 03/22/25 Procedure(s): CT head/brain wo IV con Accession Number(s): [id number] cc: Emilie Davis MD; Virginia Monroe DO Report Number: [id number]: Total DLP = 496.00 mGy-cm Reason for [...] by: Eric Daley MD 03/22/2025 01:48 PM [facility] Dictated By: Eric Maki MD Signed By: <Electronically signed by Eric Irene MD in OV> 03/22/25 1348 DD/ 1303 TD/TT: 03/22/25 1341 Bit Shaver: Procedure Note Donotuseinterpreter, Image - 03/22/[address] [place] [address] [address] Scan Report Signed Patient: Harriet ValdezMR#: [id number] : 1970Acct:[id number] Age/Sex: 55 / FADM Date: 03/22/25 Loc: HO.ED Attending Dr: Ordering Physician: Virginia Monroe DO Date of Service: 03/22/25 Procedure(s): CT head/brain wo IV con Accession Number(s): [id number] cc: Emilie Davis MD; Virginia Monroe DO Report Number: [id number]: Total DLP = 496.00 mGy-cm Reason for [...] 03/22/25 1348 DD/ 1303 TD/TT: 03/22/25 1341 Bit Shaver: [facility] External Provider IMG CT PROCEDURES Edited Result - Final * High Sensitivity Troponin I (03/22/2025 11:26 AM EST) TROPONIN I HIGH SENSITIVITY 3.2 <3.5 - 17.0 ng/L [facility] Comment:The [place] high sens itivity Troponin-I results should beused in conjunction with other diagnostic information suchas ECG, clinical observations and information, and patientsymptoms to aid in the diagnosis of CT. 03/22/2025 11:2 6 AM EST 03/22/2025 11:37 AM EST Generic External Data Provider LAB BLOOD ORDERAB LES Final Result Performing Organization Address [facility] de Phone Number [facility] [address] [place] [phone] * SARS-CoV-2 RNA, Influenza A/B, and RSV RNA, Ql NAAT (03/22/2025 11:26 AM EST) Influenza A PCR NEGATIVE Negative [facility] Influenza B PCR NEGATIVE Negative [facility] Resp Syncy Virus RNA Qual PCR NEGATIVE Negative [facility] SARS COV2 PCR NEGATIVE Negative [facility] Comment:All test results mus t [...] use by authorized laboratories.Testing performed on the [employer] GeneXpert utilizingreal-time RT-PCR.All SARS CoV2 and positive influenza A/B results arereported to [facility]. 03/22/2025 11:2 6 AM EST 03/22/2025 11:37 AM EST us Generic External Data Provider LAB MICROBIOLOGY - GENERAL ORDERABLES Final Result Performing Organization Address [facility] Co de Phone Number [facility] [address] [place] [phone] * Magnesium (03/22/2025 11:26 AM EST) Magnesium 2.1 1.6 - 2.6 mg/dL [facility] 03/22/2025 11:2 6 AM EST 03/22/2025 11:37 AM EST Generic External Data Provider LAB BLOOD ORDERAB LES Final Result Performing Organization Address [facility]/ZIP Co de Phone Number [facility] [address] [place] [phone] * (ABNORMAL) Hepatic Function Panel (03/22/2025 11:26 AM EST) Pathologist [facility] Bilirubin, Total 0.8 0.0 - 1.0 mg/dL [facility] Bilirubin, Direct 0.2 0.0 - 0.5 mg/dL [facility] Aspartate Amino Transferase 30 5 - 31 U/L [facility] Alanine Aminotransferase 33(H) 0 - 31 U/L [facility] Total Protein 7.8 6.5 - 8.0 g/dL [facility] Albumin Level 4.5 3.5 - 5.0 g/dL [facility] Alkaline Phosphatase 100 39 - 117 U/L [facility] 03/22/2025 11:2 6 AM EST 03/22/2025 11:37 AM EST Generic External Data Provider LAB BLOOD ORDERAB LES Final Result Performing Organization Address [facility] de Phone Number [facility] [address] [place] [phone] * (ABNORMAL) Basic Metabolic Panel (03/22/2025 11:26 AM EST) [facility] Sodium 137 135 - 145 mmol/L [facility] Potassium 3.8 3.3 - 5.1 mmol/L [facility] Chloride 106 96 - 108 mmol/L [facility] Carbon Dioxide 21(L) 22 - 29 mmol/L [facility] Anion Gap 14 12 - 20 [facility] Urea Nitrogen (BUN) 12 9 - 16 mg/dL [facility] Creatinine, Serum 0.68 0.5 - 1.4 mg/dL [facility] Creatinine Clr Calc Pharmacy 65.0 [facility] Comment:Provided height and weight: 165.1 cm,44.6 kg.eGFR (calculated from the MDRD study equation) and eCrCl(calculated from the Cockcroft-Gault equation) are based ondifferent parameters and may not yield comparable results.If eCrCl result is absurd, please check patient'sheight/weight. Estimated Glomerular Filt Rate >60 [facility] Comment:Chronic Kidney Disea se: Estimated GFR < 60 mL/min/1.09t8Tvdlhs Kidney Disease: Estimated GFR < 15 mL/min/1.73m2 Glucose 111 60 - 115 mg/dL [facility] Calcium 9.7 8.4 - 10.2 mg/dL [facility] 03/22/2025 11:2 6 AM EST 03/22/2025 11:37 AM EST us Generic External Data Provider LAB BLOOD ORDERAB LES Final Result Performing Organization Address City/State/[facility] Co de Phone Number [facility] [address] [place] [phone] * IR US Guide - Venous Access (03/16/2025 8:30 AM EST) Anatomical Region Laterality Modality X-Ray Angiograph y 03/16/2025 8:30 AM EST Narrative 03/30/2025 10:46 AM EST [place] [address] Interventional Radiology Rpt Signed Patient: Harriet Valdez MR#: [id number] : 1970 Acct:[id number] Age/Sex: 55 / F ADM Date: 03/16/25 Loc: .[facility] Attending Dr: Vern Fuentes MD Ordering Physician: Vern Fuentes MD Date of Service: 03/16/25 Procedure(s): IR us guide venous access Accession Number(s): [id number] cc: Emilie Davis MD; Vern Fuentes MD Reason for Exam: FOR PORT ACCESS See fluoroscopy IR report. Electronically signed by: Jimmy Pedroza MD 03/30/2025 10:43 AM EST RP Dictated By: Jimmy Pedroza MD Signed By: <Electronically signed by Jimmy Pedroza MD in OV> 03/30/25 1043 DD/ TD/TT: 03/16/25 1040 Bit Shaver: MADINA Procedure Note Donotuseinterpreter, Image - 03/30/[address] [address] Interventional Radiology Rpt Signed Patient: Harriet ValdezMR#: [id number] : 1970Acct:[id number] Age/Sex: 55 / FADM Date: 03/16/25 Loc: HO.SSS Attending Dr: Vern Fuentes MD Ordering Physician: Vern Fuentes MD Date of Service: 03/16/25 Procedure(s): IR us guide venous access Accession Number(s): [id number] cc: Emilie Davis MD; Vern Fuentes MD Reason for Exam: FOR PORT ACCESS See fluoroscopy IR report. Electronically signed by: Jimmy Pedroza MD 03/30/2025 10:43 AM EST Dictated By: Jimmy Pedroza MD Signed By: <Electronically signed by Jimmy Pedroza MD in OV> 03/30/25 1043 DD/ 9 TD/TT: 03/16/251039 Bit Shaver: MADINA us [facility] External Provider IMG IR PROCEDURES Final Result * IR cvc insert tunnel w prt/transformation specialist (03/16/2025 8:20 AM EST) Anatomical Region Laterality Modality X-Ray Angiograph y 03/16/2025 8:20 AM EST Narrative 03/30/2025 10:44 AM EST [address] [address] Interventional Radiology Rpt Signed Patient: Harriet Valdez MR#: [id number] : 1970 Acct:[id number] Age/Sex: 55 / F ADM Date: 03/16/25 Loc: HO.SSS Attending Dr: Vern Fuentes MD Ordering Physician: Vern Fuentes MD Date of Service: 03/16/25 Procedure(s): IR cvc insert tunnel w prt/transformation specialist Accession Number(s): [id number] cc: Emilie Davis MD; Vern Fuentes MD [...] the needle and needle withdrawn. A 5 Mozambican dilator was placed and the entire unit [...] fluoroscopy and placed in IVC. The 5 [place]ambican catheter was then exchanged for a syringe [...] widely patent left jugular vein. Approximately 6 Mozambican 26 cm long slim port was inserted through a left jugular approach. There were no immediate complications or bleeding seen. IR/IR cvc insert tunnel w prt/transformation specialist IMPRESSION: Successful ultrasound and fluoroscopy-guided placement of a left 6.6 Mozambican 23 seen along the left Port-A-Cath without immediate comp occasions. The PORT is ready to use. Fluoroscopy time: 0.6 minutes. Dose: 1.7 mGy/ cm. Electronically signed by: Jimmy Pedroza MD 03/30/2025 10:42 AM EST Dictated By: Jimmy Pedroza MD Signed By: <Electronically signed by Jimmy Pedroza MD in OV> 03/30/25 1042 DD/ 0820 TD/TT: 03/16/25 1040 Bit Shaver: [facility] Procedure Note Donotuseinterpreter, Image - 03/30/2025 [place] [address] Interventional Radiology Rpt Signed Patient: Harriet ValdezMR#: [id number] : 1970Acct:[id number] Age/Sex: 55 / FADM Date: 03/16/25 Loc: HO.SSS Attending Dr: Vern Fuentes MD Ordering Physician: Vern Fuentes MD Date of Service: 03/16/25 Procedure(s): IR cvc insert tunnel w prt/transformation specialist Accession Number(s): [id number] cc: Emilie Davis MD; Vern Fuentes MD [...] the needle and needle withdrawn. A 5 Mozambican dilator was placed and the entire unit [...] fluoroscopy and placed in IVC. The 5 Mozambican catheter was then exchanged for a syringe [...] widely patent left jugular vein. Approximately 6 Mozambican 26 cm long slim port was inserted through a left jugular approach. There were no immediate complications or bleeding seen. IR/IR cvc insert tunnel w prt/transformation specialist IMPRESSION: Successful ultrasound and fluoroscopy-guided placement of a left 6.6 Mozambican 23 seen along the left Port-A-Cath without immediate comp occasions. The PORT is ready to use. Fluoroscopy time: 0.6 minutes. Dose: 1.7 mGy/ cm. Electronically signed by: Jimmy Pedroza MD 03/30/2025 10:42 AM EST Dictated By: Jimmy Pedroza MD Signed By: <Electronically signed by Jimmy Pedroza MD in OV> 03/30/25 1042 DD/ 0820 TD/TT: 03/16/25 1040 Bit Shaver: MADINA [facility] External Provider IMG IR PROCEDURES Final Result * Prothrombin Time-INR (03/16/2025 7:45 AM EST) Only the most recent of2 resultswithin the time period is included. Prothrombin Time 11.4 10.9 - 12.4 SEC [facility] INTERNATIONAL NORM RATIO 1.0 0.9 - 1.1 [facility] Comment:INTERNATIONAL NORMAL IZED RATIO (INR) [...] 7:45 AM EST 03/16/2025 7:45 AM EST Generic External Data Provider LAB BLOOD ORDERAB LES Final Result [facility] [address] [place] [phone] * Lower Extremity Venous Duplex (02/25/2025 3:27 PM EDT) 02/25/2025 3:27 PM EDT Narrative [facility] - 02/25/2025 3:48 PM EDT [address] [address] Ultrasound Report Signed Patient: Harriet Valdez MR#: [id number] : 1970 Acct:[id number] Age/Sex: 55 / F ADM Date: 02/25/25 Loc: HO.US Attending Dr: Ann-Marie Muhammad MD Ordering Physician: Ann-Marie Muhammad MD Date of Service: 02/25/25 Procedure(s): US venous duplex LE LT Accession Number(s): [id number] cc: Emilie Davis MD; Ann-Marie Muhammad MD [...] 02/25/25 1546 DD/ 1527 TD/TT: 02/25/25 1537 Bit Shaver: Procedure Note Donotuseinterpreter, Image - 02/25/[address] [address] Ultrasound Report Signed Patient: Harriet ValdezMR#: [id number] : 1970Acct:[id number] Age/Sex: 55 / FADM Date: 02/25/25 Loc: HO.US Attending Dr: Ann-Marie Muhammad MD Ordering Physician: Ann-Marie Muhammad MD Date of Service: 02/25/25 Procedure(s): US venous duplex LE LT Accession Number(s): [id number] cc: Emilie Davis MD; Ann-Marie Muhammad MD [...] 02/25/25 1546 DD/ 1527 TD/TT: 02/25/25 1537 Bit Shaver: Ann-Marie Muhammad MD CV VASCULAR PROCEDURES Final Result [facility] [address] [place] [phone] * XR Tibia Fibula 2 Views Left (02/25/2025 3:14 PM EDT) Anatomical Region Laterality Modality Lower Extremities, Lower Leg Left Rad iographic Imaging 02/25/2025 3:14 PM EDT Narrative 02/25/2025 3:28 PM EDT [address] [address] XRay Report Signed Patient: Harriet Valdez MR#: [id number] : 1970 Acct:[id number] Age/Sex: 55 / F ADM Date: 02/25/25 Loc: .US Attending Dr: Ann-Marie Muhammad MD Ordering Physician: Ann-Marie Muhammad MD Date of Service: 02/25/25 Procedure(s): XR tibia fibula LT 2V Accession Number(s): [id number] cc: Emilie Davis MD; Ann-Marie Muhammad MD [...] 02/25/25 1525 DD/ 1514 TD/TT: 02/25/25 1521 Bit Shaver: Procedure Note Donotuseinterpreter, Image - 02/25/[address] [address] XRay Report Signed Patient: Harriet ValdezMR#: [id number] : 1970Acct:[id number] Age/Sex: 55 / FADM Date: 02/25/25 Loc: .US Attending Dr: Ann-Marie Muhammad MD Ordering Physician: Ann-Marie Muhammad MD Date of Service: 02/25/25 Procedure(s): XR tibia fibula LT 2V Accession Number(s): [id number] cc: Emilie Davis MD; Ann-Marie Muhammad MD [...] 02/25/25 1525 DD/ 1514 TD/TT: 02/25/25 1521 Bit Shaver: us Ann-Marie Muhammad MD IMG XR PROCEDURES Final Resul t * CT Chest w/ Contrast (02/23/2025 2:19 PM EDT) Anatomical Region Laterality Modality Body, Chest Computed Tomogra phy us Historical Provider IMG CT PROCEDURES Final R esult * (ABNORMAL) Lactate Dehydrogenase (LD) (02/18/2025 3:28 PM EDT) Lactate Dehydrogenase 743(H) 122 - 220 U/L [facility] 02/18/2025 3:28 PM EDT 02/18/2025 3:28 PM EDT us Generic External Data Provider LAB BLOOD ORDERAB LES Final Result Performing Organization Address [facility] Co de Phone Number [facility] [address] [place] [phone] * (ABNORMAL) Amylase (02/18/2025 3:28 PM EDT) Amylase 113(H) 28 - 100 U/L [facility] 02/18/2025 3:28 PM EDT 02/18/2025 3:28 PM EDT us Generic External Data Provider LAB BLOOD ORDERAB LES Final Result Performing Organization Address [facility]/ZIP Co de Phone Number [facility] [address] [place] [phone] * EGD (02/18/2025 2:59 PM EDT) Anatomical Region Laterality Modality Endoscopy us Historical Provider ENDOSCOPY PROCEDURE ORDER TATUM Final Result * MR Lumbar Spine w/o Contrast (02/09/2025 6:20 PM EDT) Anatomical Region Laterality Modality Spine, L-spine Magnetic Resonan ce 02/09/2025 6:20 PM EDT Narrative 02/10/2025 7:18 AM EDT [address] [address] Magnetic Resonance Report Signed Patient: Harriet Valdez MR#: [id number] : 1970 Acct:[id number] Age/Sex: 54 / F ADM Date: 02/09/25 Loc: HO.MRI Attending Dr: Nakul Velasco MD Ordering Physician: Nakul Velasco MD Date of Service: 02/09/25 Procedure(s): MR lumbar spine wo con Accession Number(s): [id number] cc: Emilie Davis MD; Nakul Velasco MD [...] 02/10/25 0715 DD/ 1820 TD/TT: 02/09/25 1845 Bit Shaver: Procedure Note Donotuseinterpreter, Image - 02/10/[address] [address] Magnetic Resonance Report Signed Patient: Harriet ValdezMR#: [id number] : 1970Acct:[id number] Age/Sex: 54 / FADM Date: 02/09/25 Loc: HO.MRI Attending Dr: Nakul Velasco MD Ordering Physician: Nakul Velasco MD Date of Service: 02/09/25 Procedure(s): MR lumbar spine wo con Accession Number(s): [id number] cc: Emilie Davis MD; Nakul Velasco MD [...] <Electronically signed by Eric Irene MDin OV> 02/10/25714 DD/ 19 TD/TT: 02/09/25 184 Bit Shaver: [facility] External Provider IMG MRI PROCEDURES Final Result * (ABNORMAL) CA 19-9 (02/01/2025 11:57 AM EDT) CA 19-9 671(A) <34 U/mL [facility] Comment:This test was perfor med using the Siemenschemiluminescent method. Values obtained fromdifferent assay methods cannot be usedinterchangeably. CA 19-9 levels, regardless ofvalue, should not be interpreted as absoluteevidence of the presence or absence of disease.THIS TEST WAS PERFORMED AT:[facility] [place] [phone] MALDONADO MD 02/01/2025 11:5 7 AM EDT 02/01/2025 11:57 AM EDT Generic External Data Provider LAB BLOOD ORDERAB LES Final Result [facility] [address] [place] [phone] [phone] * HIV-1 RNA, Quantitative, Real-Time PCR (02/01/2025 11:57 AM EDT) Only the most recent of2 resultswithin the time period is included. HIV RNA PCR Qn Copies NOT DETECTED NOT DETECTED copies/mL [facility] HIV RNA PCR Qn Log Copies NOT DETECTED NOT DETECTED [facility] Comment:Result Units: Log co pies/mLThis test was performed using Real-Time Polymerase ChainReaction.Reportable Range: 20 copies/mL to 10,000,000 copies/mL(1.30 log copies/mL to 7.00 log copies/mL).THIS TEST WAS PERFORMED AT:[facility] [place] [id number] MALDONADO MD 02/01/2025 11:5 7 AM EDT 02/01/2025 11:57 AM EDT Emilie Davis MD LAB BLOOD ORDERABLES Final Result Performing Organization Address [facility] de Phone Number [facility] [address] [place] [address] [phone] * Homocysteine (02/01/2025 11:57 AM EDT) Pathologist [facility] Homocysteine 7.4 < or = 13.4 umol/L [facility] Comment:Homocysteine is incr eased by functional deficiency offolate or vitamin B12. Testing for methylmalonic aciddifferentiates between these deficiencies. Other causesof increased homocysteine include renal failure, folateantagonists such as methotrexate and phenytoin, andexposure to nitrous oxide.Salvador Stevens et al., Caitlyn Nutritional Chemist Med. 1999;131(5):331-9.THIS TEST WAS PERFORMED AT:[facility] [address] [id number] MALDONADO MD 02/01/2025 11:5 7 AM EDT 02/01/2025 11:57 AM EDT us Generic External Data Provider LAB BLOOD ORDERAB LES Final Result Performing Organization Address [facility] Co de Phone Number [facility] [address] [place] [phone] * POCT Rapid HIV Screening (01/27/2025 1:50 PM EDT) Blood 01/27/2025 1:50 PM EDT Narrative Medina Lewis RN - 01/27/2025 1:50 PM EDT negative Emilie Davis MD POINT OF CARE TEST ENTER/E DIT ORDERABLES Final Result * Chlamydia/Gonorrhea Throat Swab ([facility]) (01/27/2025) Chlamydia Throat Swab Negative Gonorrhea Throat Swab Negative Swab 01/27/2025 Historical Provider LAB MICROBIOLOGY - GENERA L ORDERABLES Final Result * MR Abdomen w/ and w/o Contrast (01/20/2025 4:03 PM EDT) Anatomical Region Laterality Modality Abdomen Magnetic Resonan ce 01/20/2025 4:03 PM EDT Narrative 01/20/2025 4:05 PM EDT [place] [address] Magnetic Resonance Report Signed with Steve Patient: Harriet Valdez MR#: [id number] : 1970 Acct:[id number] Age/Sex: 54 / F ADM Date: 01/19/25 Loc: HO.MRI Attending Dr: Cha Mills MD Ordering Physician: Cha Mills MD Date of Service: 01/19/25 Procedure(s): MR abdomen wo/w con Accession Number(s): [id number] cc: Emilie Davis MD; Cha Mills MD Reason for Exam: K85.90 - Acute pancreatitis without necrosis or infection, unspecified ADDENDUM This document has been electronically signed by: Yumiko Jones MD on 01/20/2025 16:03:51 ADDENDUM: Receipt of this report by the clinical staff was confirmed with Kylie Trotter MA on Jan 20, 2025 16:26:00 EDT. This document has been electronically signed by: GaviotaNikole ozunaica on 01/20/2025 16:27:15 Addendum Dictated By: Yumiko [...] bile duct dilatation, concerning for malignancy. Recommend business writer consultation, ERCP and tissue sampling. 2. Subcentimeter right hepatic hemangioma and cyst. 3. Diverticulosis coli. This document has been electronically signed by: Yumiko Jones MD on 01/20/2025 16:03:51 Dictated By: Yumiko Jones MD Signed By: <Electronically signed by Yumiko Jones MD in OV> 01/20/251604 DD/ 02 TD/TT: 01/20/251602 Bit Shaver: Procedure Note Donotuseinterpreter, Image - 01/20/[address] [address] Magnetic Resonance Report Signed with Addenda Patient: Harriet ValdezMR#: [id number] : 1970Acct:[id number] Age/Sex: 54 / FADM Date: 01/19/25 Loc: HO.MRI Attending Dr: Cha Mills MD Ordering Physician: Cha Mills MD Date of Service: 01/19/25 Procedure(s): MR abdomen wo/w con Accession Number(s): [id number] cc: Emilie Davis MD; Cha Mills MD [...] bile duct dilatation, concerning for malignancy. Recommend business writer consultation, ERCP and tissue sampling. 2. Subcentimeter right hepatic hemangioma and cyst. 3. Diverticulosis coli. This document has been electronically signed by: Yumiko Jones MD on 01/20/2025 16:03:51 Dictated By: Yumiko Jones MD Signed By: <Electronically signed by Yumiko Jones MD in OV> 01/20/25 1605 DD/ 1603 TD/TT: 01/20/25 1603 Bit Shaver: [facility] External Provider IMG MRI PROCEDURES Edited Result - Final * Hematoxylin and Eosin Stain (01/15/2025 3:32 PM EDT) 01/15/2025 3:32 PM EDT 01/18/2025 7:08 AM EDT [facility] - 01/19/2025 12:19 PM EDT ----- ------- Name: Harriet Valdez Age/Sex: 54/F : 1970 Unit#: [id number] Attend Dr: Mary Alice Mayorga MD Re01/15/25 Status: [facility] Location: [facility] Disch: ----- ------- SPEC : [id number] RECD: 01/18/25 STATUS: JANIE DUNLAP NUM: [id number] AMBREEN: 01/15/25-[address] [facility] [address]: Mary Alice Mayorga MD ENTERED: [...] developed and their performance characteristics determined by [facility]. They have not been cleared or approved by the U.S. Food and Drug Administration (FDA). However, the FDA CONTINUED ON NEXT PAGE ----- ------- Name: Trace RobersonHarriet do Age/Sex: 54/F : 1970 Unit#: [id number] Attend Dr: Mary Alice Mayorga MD Re01/15/25 Status: [facility] Location: [facility] Disch: ----- ------- SPEC : [id number] RECD: 01/18/25 STATUS: JANIE DUNLAP NUM: [id number] AMBREEN: 01/15/25-[address] [facility] [address]: Mary Alice Mayorga MD ENTERED: [...] laboratory testing. Copies To: Emilie Davis MD [address] [phone] Mary Alice Mayorga MD [facility] [address] [place] [phone] ----- ------- Signed (signature on file) Yara Dodson MD 01/19/25 1219 ----- ------- END OF REPORT us Generic External Data Provider LAB BLOOD ORDERAB LES Final Result [facility] [address] [place], [place] [phone] * FL Esophagus Barium Swallow (01/14/2025 9:40 AM EDT) Anatomical Region Laterality Modality Head, Neck Radiographic Aurora ging 01/14/2025 9:40 AM EDT Narrative 01/14/2025 11:23 AM EDT [address] [address] Fluoroscopy Report Signed Patient: Harriet Valdez MR#: [id number] : 1970 Acct:[id number] Age/Sex: 54 / F ADM Date: 01/14/25 Loc: HO.XRAY Attending Dr: Aida ASH Ordering Physician: Aida Orozco Date of Service: 01/14/25 Procedure(s): FL barium swallow Accession Number(s): [id number] cc: Emilie Davis MD; Aida Orozco Reason [...] 01/14/25 1120 DD/ 0940 TD/TT: 01/14/25 0955 Bit Shaver: [facility] Procedure Note Donotuseinterpreter, Image - 01/14/[address] [address] Fluoroscopy Report Signed Patient: Harriet ValdezMR#: [id number] : 1970Acct:[id number] Age/Sex: 54 / FADM Date: 01/14/25 Loc: HO.XRAY Attending Dr: Aida ASH Ordering Physician: Aida Orozco Date of Service: 01/14/25 Procedure(s): FL barium swallow Accession Number(s): [id number] cc: Emilie Davis MD; Aida Orozco Reason [...] 01/14/25 1120 DD/ 0940 TD/TT: 01/14/25 0955 Bit Shaver: MADINA [facility] External Provider IMG FLU OROSCOPY PROCEDURES Final Result * (ABNORMAL) Lipid Panel, Standard (07/24/2024 1:36 PM EDT) Triglycerides 141 <150 mg/dL [facility] Comment:Desirable Triglyceri de: less than 150 mg/dLBorderline High Triglyceride 150-199 mg/dLHigh Triglyceride: 200-499 mg/dLVery High Triglyceride: greater than or equal to 5OO mg/dL Cholesterol 205(H) <200 mg/dL [facility] Comment:Desirable Cholestero l: less than 200 mg/dLBorderline High Cholesterol: 200-239 mg/dLHigh Cholesterol: greater than 239 mg/dL LDL Cholesterol Calculated 114(H) <100 mg/dL [facility] Comment:Desirable LDL: less than 100 mg/dLNear Optimal/Above Optimal LDL: 110- 129 mg/dLBorderline High LDL: 130-159 mg/dLHigh LDL: 160-189 mg/dLVery High LDL: greater than or equal to 190 mg/dL HDL Cholesterol 63 >40 mg/dL [facility] Comment:Desirable HDL: great er than 40 mg/dL Note: This HDL assay may give artificially low results in patients with liver disease. 07/24/2024 1:36 PM EDT 07/24/2024 4:20 PM EDT us Generic External Data Provider LAB BLOOD ORDERAB LES Final Result [facility] [address] [place] [phone] * HPV mRNA E6/E7 w/Reflex to HPV Genotypes 16, 18/45 (03/22/2023 11:30 AM EST) HPV nRNA E6/E7 Not Detected Not Detected [facility] Comment:Methodology: Transcr iption-Mediated AmplificationThis assay detects E6/E7 viral messenger RNA (mRNA) from 14high-risk HPV types (16,18,31,33,35,39,45,51,52,56,58,59,66,68).Cervical sources are required for HPV testing.If a vaginal source from a patient who has had atotal hysterectomy with removal of cervix wassubmitted, please contact the testing laboratoryfor alternative testing options.For additional information, please refer [email or web address] [email or web address](This link if provided for information/educational purposes only.)THIS TEST WAS PERFORMED AT:[facility] [place] [id number] MALDONADO MD HPV mRNA E6/E7 TNP [facility] HPV 16 RNA TNP [facility] HPV 18/45 RNA [facility] 03/22/2023 11:3 0 AM EST 03/25/2023 12:20 PM EST Emilie Davis MD LAB CYTOLOGY ORDERABLES Fi nal Result [facility] [address] [place] [phone] * Pap Smear (03/22/2023 11:30 AM EST) 03/22/2023 11:3 0 AM EST 03/25/2023 12:20 PM EST Narrative [facility] - 04/11/2023 11:26 AM EST ----- ------- Name: Harriet Valdez Age/Sex: 53/F : 1970 Unit#: [id number] Attend Dr: RADHA VILLAREAL MD Re03/22/23 Status: DEP [facility] Disch: ----- ------- SPEC : [id number] RECD: 03/25/23 STATUS: JANIE DUNLAP NUM: [id number] AMBREEN: 03/22/[address] [facility] [address]: Emilie Davis MD ENTERED: 03/25/232429 SP TYPE: Pap Smr OT DR: ORDERED: Pap Smear Interpretation Satisfactory for evaluation. Negative for intraepithelial lesion or malignancy. HPV mRNA E6/E7: NOT DETECTED This assay detects E6/E7 viral messenger RNA (mRNA) from 14 high-risk HPV types (16, 18, 31, 33, 35, 39, 45, 51, 52, 56, 58, 59, 66, 68) HPV testing performed by [facility], [place], [place]. See reference laboratory portion of the EMR for entire report. Clinical Information LMP: Unknown date Previous PAP test: Unknown date, WNL Other history: Pt on testosterone, surgical post menopause Material Received ThinPrep-Cervical ----- ------- Signed (signature on file) SERENA Alejandro (ASCP) 04/11/23 1126 ----- ------- END OF REPORT us Emilie Davis MD LAB CYTOLOGY ORDERABLES Fi nal Result [facility] [address] [place] [phone] * Colonoscopy (01/30/2018) Colonoscopy normal Historical Provider HEALTH MAINTENANCE Final Result from Last 3 Months or Most Recently Relevant to Health Maintenance [place] [address] [place] [address] [employer] 3 Advance Directives Documents on File Type Date Recorded Patient Enterprise Systems Administrator Expl anation Advance Directives and Living Will 03/16/2024 Health Care Proxy 03/16/24 Care Teams Methods Specialist Relationship Specialty Start Date End Date Emilie Davis MD [address] [place] [phone] PCP - General Family Medicine 05/13/18 Aida Orozco [address] [place] [address] [address] [place] [address] Gastroenterology 05/26/24 Fred Castanon [address] [place] [phone] Cardiology 07/21/24 Ele Mar MD [address] [place] [address] Hematology and Oncology 02/22/25 Marina Brown MD Rheumatology 02/10/25 Costa Miller MD Attending Hepatobiliary & Pancreatic Surgeon Division of Surgical Oncology [facility]cology 03/11/25
--- NOTE | 2025-04-14 16:45 | PM.IMHP ---
History of Present Illness Date of Service: 04/14/25 Chief Complaint: presyncope 55 transmale H pancreatic adenocarcinoma currently receiving neoadjuvant chemotherapy, hypertension, hyperlipidemia, GERD, esophageal and pyloric stenosis presented with presyncopal event. Was at clinic and started feeling woozy and lightheaded and possibly Fully passed out. Reports hitting object with chest. If lost consciousness was brief, last dose of chemo was 2 days prior to presentation. Reports eating and drinking at breakfast in a.m.. Reports constipation with hard stools. In ED leukocytosis of 14, CT abdomen with abundant stool without intestinal obstruction and known pancreatic mass Review of Systems Review of Systems: Yes all other systems are reviewed and are negative [facility] Medical History Pancreatic adenocarcinoma Elevated LFTs Pancreatic mass Acute pancreatitis Pancreatic mass Upper abdominal pain Erosive esophagitis Abdominal pain Sleep difficulties Vomiting LEE (dyspnea on exertion) Arthritis Occipital neuralgia of left side New onset headache Diverticulosis of colon Chronic, continuous use of opioids Chronic GERD Palpitations Hypotension History of palpitations Dysphagia Disc degeneration, lumbar Spondylosis of lumbar spine Depression Past heart attack Hyperlipemia Erosive osteoarthritis of hands, bilateral GERD (gastroesophageal reflux disease) Hypertension Family History Mother Hypertension Breast cancer Maternal Grandmother Myocardial infarct Skin cancer Sister Heart problem Breast cancer Family/Other Esophageal cancer Surgical History History of cholecystectomy Hx of colonoscopy History of esophagogastroduodenoscopy (EGD) H/O bilateral mastectomy H/O: hysterectomy Social History Household Members: None Housing: Apartment Are you a primary animal caretaker supervisor to a significant other at home: No Do you presently have visiting nurse or other home services: No Alcohol intake: never Patient Tobacco Use Status: Former Tobacco user Second Hand Smoke Exposure: No Substance Use Type: Marijuana Advance Directives: No Advance Directives Information Provided: Yes service: No Meds Allergies Allergy/AdvReac Type Severity Reaction Status Date / Time black pepper Allergy Severe Anaphylaxis Verified 04/14/25 13:01 Penicillins (PENICILLINS) Allergy Intermediate MARIANN DUKELL Verified 04/14/25 13:01 ING sumatriptan (SUMATRIPTAN) AdvReac Severe PT STATES Verified 04/14/25 13:01 HEART ATTACK berries Allergy Unknown Anaphylaxis Uncoded 03/30/25 15:02 Active Medications: Current Medications Acetaminophen (Acetaminophen 325 Mg Tablet) 650 mg PO Q6H PRN PRN Reason: Pain, Mild 1-3,fever,headache Calcium Carbonate (Calcium Carbonate 750 Mg Tab.Chew) 750 mg PO Q4H PRN PRN Reason: Heartburn Enoxaparin Sodium (Enoxaparin Sodium 40 Mg/0.4 Ml Syringe) 30 mg SUBCUT Q24H KARLI Magnesium Hydroxide (Milk Of Magnesia 30 Ml Oral.Susp) 30 ml PO DAILY PRN PRN Reason: Constipation Melatonin (Melatonin 3 Mg Tablet) 6 mg PO BEDTIME PRN PRN Reason: Insomnia Sodium Chloride (0.9 % Sodium Chloride Flush 3 Ml Syringe) 3 ml IVFLUSH QSHIFT [facility] Home Medications ?Medication ?Instructions ?Recorded ?Confirmed ?Last Taken ?Type cabotegravir 600 mg/3 mL (200 600 mg IM [id number] 02/18/25 03/22/25 02/04/25 History mg/mL) IM suspension,extended release (Apretude) bisacodyl 5 mg tablet,delayed 10 mg PO BEDTIME PRN Constipation 03/22/25 03/22/25 2 Days Ago History release (Dulcolax (bisacodyl)) ~03/20/25 lidocaine 5 % topical ointment 1 appl topical BID PRN port a cath 03/22/25 03/22/25 Unknown History lorazepam 0.5 mg tablet 0.5 mg PO BEDTIME PRN anxiety 03/22/25 03/22/25 2 Days Ago History ~03/20/25 Physical Exam Vital Signs and Narrative: Vital Signs: Last Vital Signs Temp 98.1 F 04/14/25 14:24 Pulse 63 04/14/25 15:07 Resp 16 04/14/25 15:07 BP 116/75 04/14/25 15:07 Pulse Ox 96 04/14/25 15:07 O2 Del Method Room Air 04/14/25 15:07 BMI result Body Mass Index 16.7 General: AO X 3, ill-appearing, frail, cachectic Resp: CTA bilateral, no accessory muscles used CVS: S1,S2,RRR GI: soft, tender, non distended Neuro: motor grossly intact, alert Psych: appropriate affect, appropriate insight Results Labs 04/14/25 13:36 04/14/25 13:36 Labs: Laboratory Results - last 24 hr 04/14/25 04/14/25 13:36 14:49 MCV 88.8 MCH 28.7 MCHC 32.3 RDW 15.8 Plt Count 308 MPV 8.7 L Immature Gran % (Auto) 0.7 H Neut % (Auto) 84.3 H Lymph % (Auto) 12.2 L [place] % (Auto) 2.5 Eos % (Auto) 0.1 Baso % (Auto) 0.2 Lymph # (Auto) 1.8 [place] # (Auto) 0.4 Eos # (Auto) 0.0 Baso # (Auto) 0.0 Abs Immat Gran (auto) 0.10 H Absolute Neuts (auto) 12.3 H Absolute Nucleated RBC 0.000 Nucleated RBC % (auto) 0.0 PT 11.2 INR 0.9 D-Dimer High Sensitivty 770 Anion Gap 10 L Estim Creat Clear Calc 70.5 Estimated GFR > 60 Random Glucose 100 Calcium 8.5 D Total Bilirubin 0.3 Direct Bilirubin 0.2 AST 26 ALT 20 Alkaline Phosphatase 59 Troponin I High Sens < 2.7 Total Protein 6.3 L Albumin 3.7 Urine Color Yellow Urine Appearance Clear Urine pH 5.5 Ur Specific [place] 1.020 Urine Protein Trace Urine Glucose (UA) Negative Urine Ketones Negative Urine Blood Negative Urine Nitrite Negative Ur Leukocyte Esterase Negative Imaging Radiologist's Impressions: Impressions Cervical Spine CT 04/14/25 15:10 IMPRESSION: 1. No CT evidence of acute cervical spine fracture or injury. 2. Mild to moderate degenerative spondylosis without significant C4-C7. Electronically signed by: Micah Hastings MD 04/14/2025 04:14 PM EST RP Head CT 04/14/25 15:10 IMPRESSION: No CT evidence of acute intracranial hemorrhage or edematous territorial infarction. Electronically signed by: Huseyin Cerna MD 04/14/2025 04:11 PM EST RP Abdomen/Pelvis CT 04/14/25 15:13 IMPRESSION: 2.5 cm lesion/mass, uncinate process of the pancreas, unchanged. Concerning neoplasm, hepatic colonic flexure/ascending colon junction. Intrahepatic and extrahepatic biliary ductal dilatation, mild. Abundant stool without intestinal obstruction pattern. Diverticular disease. Fleischner guidelines were followed. Electronically signed by: Eric Daley MD 04/14/2025 03:57 PM EST RP Chest CTA 04/14/25 15:13 IMPRESSION: No evidence of pulmonary embolus or acute pulmonary parenchymal disease. Chronic granulomatous disease. Gaseous distention of the proximal half of the esophagus. Fleischner guidelines were followed. Electronically signed by: Rob Arteaga MD 04/14/2025 04:05 PM EST RP Assessment and Plan (1) Abnormal weight loss: Status: Acute Plan 55 transmale PMH pancreatic adenocarcinoma currently receiving neoadjuvant chemotherapy, hypertension, hyperlipidemia, GERD, esophageal and pyloric stenosis presented with presyncopal event Presyncope Likely due to dehydration ivf, monitor on tele constipation mirlax, dulcolax Moderate protein calorie malnutrition due to pancreatic adenocarcinoma Currently on neoadjuvant therapy Following with oncology Chest pain Suspect traumatic, no evidence of fracture, pain control DVT prophylaxis with Lovenox Full code Quality Stroke Does the patient have a stroke diagnosis?: No VTE Prior VTE?: No VTE Risk Level:: Medical - moderate - high VTE Device Contraindication: Treatment Not Indicated VTE Drug Contraindication: N/A - Med Ordered
[2025-04-14] MEDS: Lactated Ringers 1,000 ML 80 ML IVCONT (17:15)
[2025-04-14] MEDS: oxyCODONE HCl Immed Release 5 MG TABLET 10 MG PO (19:26)
--- NOTE | 2025-04-14 19:30 | PC.NURSE ---
this rn assumed care of pt, pt medicated per mar for pain at this time, tolerated whole well with water. vss
--- NOTE | 2025-04-14 20:46 | PHA.MEDREC ---
Pharmacy Consult ? Medication Reconciliation Pharmacy has completed the medication reconciliation. Spoke to patient to confirm medication list. Per patient, she no longer takes Apretude, trazodone nor quetiapine. She finished the course of ciprofloxacin and metronidazole. She is taking oxycodone 10 mg q4h prn pain.
--- NOTE | 2025-04-14 21:09 | PC.NURSE ---
arrives now in 472
[2025-04-15] VITALS (8 sets, daily range): BP systolic 94–123; BP diastolic 55–81; PULSE 57–82; RESP 16–18; TEMP 36.4–36.7; O2SAT 96–98; BMI 16.7
--- NOTE | 2025-04-15 05:43 | PC.NURSE ---
patient expressed nausea not sibsided with zofran. no vomiting. MD contacted. med ordered, this nurse returned to pt room to be informed that nausea is not subsided and declines med. call phelan in reach. fall px in place, plan of care ongoing
--- NOTE | 2025-04-15 05:46 | PC.NURSE ---
Addendum entered by Sergio Pierre RN 04/15/25 06:28: now nauseous again after ambulating asymptomatically to bathroom. small volume of nonbloody emesis x2 Original Note: patient expressed nausea not improved with zofran. no vomiting. requested another antiemetic. MD contacted. med ordered, this nurse returned to pt room to be informed that nausea is subsided and declines med. call phelan in reach. fall px in place, plan of care ongoing
[2025-04-15] MEDS: Lactated Ringers 1,000 ML 80 ML IVCONT ×2 (06:28→18:22)
[2025-04-15 07:26] LABS: Hematocrit 37.0 % (37.0-47.0); Hemoglobin 12.3 g/dl (12.0-16.0); Mean Corpuscular HGB Conc 33.2 g/dl (31.0-35.0); Mean Corpuscular Hemoglobin 29.5 pg (27.0-33.0); Mean Corpuscular Volume 88.7 fL (80.0-98.0); NRBC Abs Auto 0.000 X10*3/uL (0.0-0.012); NRBC Pct Auto 0.0 /100WBC (0.0-0.2); Platelet Count 267 X10*3/uL (160-400); Red Blood Count 4.17 X10*6/uL (4.20-5.50); White Blood Count 8.6 X10*3/uL (4.8-10.8)
[2025-04-15 07:40] LABS: Anion Gap 11 (12-20); Blood Urea Nitrogen 11 mg/dL (9-16); Calcium 8.7 mg/dL (8.4-10.2); Carbon Dioxide 26 mmol/L (22-29); Chloride 107 mmol/L (96-108); Creatinine Clr Calc Pharmacy 79.1; Estimated Glomerular Filt Rate > 60; Magnesium 1.8 mg/dL (1.6-2.6); Potassium 3.8 mmol/L (3.3-5.1); Sodium 140 mmol/L (135-145)
[2025-04-15] MEDS: Milk of Magnesia 30 ML ORAL.SUSP PO (09:07)
[2025-04-15] MEDS: 0.9 % Sodium Chloride Flush 3 ML SYRINGE IVFLUSH (09:08)
[2025-04-15] MEDS: oxyCODONE HCl Immed Release 5 MG TABLET 10 MG PO (09:19)
--- NOTE | 2025-04-15 10:41 | MHC.CLN ---
PT IS MODERATELY MALNOURISHED-QUALIFIES NON SEVERE IN CONTEXT OF CHRONIC ILLNESS PT WITH MILDLY DEPLETED SUBCUTANEOUS FAT AND MUSCLE MASS AND 24% SIGNIFICANT WT LOSS X 1 YEAR APPEARS FRAIL AND CACHETIC POOR PO INTAKE UROLOGIC NURSE REPORTED REGULAR DIET RECOMMEND ENSURE BID TO INCREASE KCALS SUPPLEMENT PROVIDES 700KCALS, 40G PROTEIN MONITOR PO INTAKE AND ENCOURAGE SUPPLEMENTS SEE FULL ASSESSMENT
--- NOTE | 2025-04-15 11:22 | PC.NURSE ---
development technician utilized via [employer]
--- NOTE | 2025-04-15 12:39 | HO.PM.IMPN ---
Subjective Subjective Date of Service: 04/15/25 Interval History: constipated Physical Exam Exam: Exam: General: AO X 3, ill-appearing, frail, cachectic Resp: CTA bilateral, no accessory muscles used CVS: S1,S2,RRR GI: soft, tender, non distended Neuro: motor grossly intact, alert Psych: appropriate affect, appropriate insight Vital Signs: Vital Signs: Last Vital Signs Temp 98.0 F 04/15/25 11:01 Pulse 60 04/15/25 11:01 Resp 18 04/15/25 11:01 BP 114/66 04/15/25 11:01 Pulse Ox 96 04/15/25 11:01 O2 Del Method Room Air 04/15/25 11:01 BMI result Body Mass Index 16.7 Objective Data Active Medications Acetaminophen (Acetaminophen 325 Mg Tablet) 650 mg PO Q6H PRN PRN Reason: Pain, Mild 1-3,fever,headache Calcium Carbonate (Calcium Carbonate 750 Mg Tab.Chew) 750 mg PO Q4H PRN PRN Reason: Heartburn Dexamethasone (Dexamethasone 4 Mg Tablet) 4 mg PO BID [facility] Last Admin: 04/15/25 09:08 Dose: 4 mg Documented By: ANABEL Enoxaparin Sodium (Enoxaparin Sodium 30 Mg/0.3 Ml Syringe) 30 mg SUBCUT Q24H [facility] Last Admin: 04/15/25 09:08 Dose: 30 mg Documented By: ANABEL Lactated Ringer's (Lr) 1,000 mls @ 80 mls/hr IVCONT .[id number] [facility] Last Admin: 04/15/25 06:28 Dose: 80 mls/hr Documented By: DEVON Lorazepam (Lorazepam 0.5 Mg Tablet) 0.5 mg PO BEDTIME PRN PRN Reason: Anxiety Magnesium Hydroxide (Milk Of Magnesia 30 Ml Oral.Susp) 30 ml PO DAILY PRN PRN Reason: Constipation Last Admin: 04/15/25 09:07 Dose: 30 ml Documented By: ANABEL Melatonin (Melatonin 3 Mg Tablet) 6 mg PO BEDTIME PRN PRN Reason: Insomnia Ondansetron HCl (Ondansetron Hcl 4 Mg/2 Ml Vial) 4 mg IVPUSH Q6H PRN PRN Reason: Nausea Last Admin: 04/15/25 09:07 Dose: 4 mg Documented By: ANABEL Oxycodone HCl (Oxycodone Hcl Immed Release 5 Mg Tablet) 10 mg PO Q4H PRN PRN Reason: Pain, Severe (Pain Scale 7-10) Last Admin: 04/15/25 09:19 Dose: 10 mg Documented By: ANABEL Sodium Chloride (0.9 % Sodium Chloride Flush 3 Ml Syringe) 3 ml IVFLUSH QSHIFT KARLI Last Admin: 04/15/25 09:08 Dose: 3 ml Documented By: ANABEL Labs 04/15/25 06:56 04/15/25 06:56 Labs: Laboratory Results - last 24 hr 04/14/25 04/14/25 04/15/25 13:36 14:49 06:56 MCV 88.8 88.7 MCH 28.7 29.5 MCHC 32.3 33.2 RDW 15.8 15.5 Plt Count 308 267 MPV 8.7 L 9.1 L Immature Gran % (Auto) 0.7 H Neut % (Auto) 84.3 H Lymph % (Auto) 12.2 L Thomas % (Auto) 2.5 Eos % (Auto) 0.1 Baso % (Auto) 0.2 Lymph # (Auto) 1.8 Thomas # (Auto) 0.4 Eos # (Auto) 0.0 Baso # (Auto) 0.0 Abs Immat Gran (auto) 0.10 H Absolute Neuts (auto) 12.3 H Absolute Nucleated RBC 0.000 0.000 Nucleated RBC % (auto) 0.0 0.0 PT 11.2 INR 0.9 D-Dimer High Sensitivty 770 Anion Gap 10 L 11 L Estim Creat Clear Calc 70.5 79.1 Estimated GFR > 60 > 60 Random Glucose 100 89 Calcium 8.5 D 8.7 Magnesium 1.8 Total Bilirubin 0.3 Direct Bilirubin 0.2 AST 26 ALT 20 Alkaline Phosphatase 59 Troponin I High Sens < 2.7 Total Protein 6.3 L Albumin 3.7 Urine Color Yellow Urine Appearance Clear Urine pH 5.5 Ur Specific [place] 1.020 Urine Protein Trace Urine Glucose (UA) Negative Urine Ketones Negative Urine Blood Negative Urine Nitrite Negative Ur Leukocyte Esterase Negative Assessment and Plan (1) Depression: Status: Acute Plan 55 transmale [facility] pancreatic adenocarcinoma currently receiving neoadjuvant chemotherapy, hypertension, hyperlipidemia, GERD, esophageal and pyloric stenosis presented with presyncopal event Presyncope Likely due to dehydration ivf, monitor on tele - no events constipation with abdominal pain enema Moderate protein calorie malnutrition due to pancreatic adenocarcinoma Currently on neoadjuvant therapy Following with oncology Chest pain Suspect traumatic, no evidence of fracture, pain control DVT prophylaxis with Lovenox full code reason for continued hospitalization:abd pain, hasnt had BM Quality Stroke Does the patient have a stroke diagnosis?: No VTE Prior VTE?: No VTE Risk Level:: Medical - moderate - high VTE Device Contraindication: Treatment Not Indicated VTE Drug Contraindication: N/A - Med Ordered
--- NOTE | 2025-04-15 12:59 | MHC.CM.PN ---
Shamika 04/15/25, Pt. lives with his family, (his current name is: Deloris). He does not use home health services, did have home O2, but not anymore. PCP is confirmed: Emilie Davis. Family to transport home at DC, DCP: home, self care, CM to follow for DC needs.
--- NOTE | 2025-04-15 14:00 | PC.NURSE ---
Fleet enema administered, no MD BRYAN notified
[2025-04-16] MEDS: oxyCODONE HCl Immed Release 5 MG TABLET 10 MG PO ×2 (01:30→22:43)
[2025-04-16 03:06] VITALS: BP 103/63; PULSE 65; RESP 18; TEMP 37.3; O2SAT 98
[2025-04-16] MEDS: Lactated Ringers 1,000 ML 80 ML IVCONT (05:43)
[2025-04-16 07:01] VITALS: BP 94/57; PULSE 50; RESP 18; TEMP 37.2; O2SAT 97
[2025-04-16 07:24] LABS: Hematocrit 34.7 % (37.0-47.0); Hemoglobin 11.7 g/dl (12.0-16.0); Mean Corpuscular HGB Conc 33.7 g/dl (31.0-35.0); Mean Corpuscular Hemoglobin 29.0 pg (27.0-33.0); Mean Corpuscular Volume 86.1 fL (80.0-98.0); NRBC Abs Auto 0.000 X10*3/uL (0.0-0.012); NRBC Pct Auto 0.0 /100WBC (0.0-0.2); Platelet Count 276 X10*3/uL (160-400); Red Blood Count 4.03 X10*6/uL (4.20-5.50); White Blood Count 6.6 X10*3/uL (4.8-10.8)
[2025-04-16 07:44] LABS: Anion Gap 10 (12-20); Blood Urea Nitrogen 13 mg/dL (9-16); Calcium 9.5 mg/dL (8.4-10.2); Carbon Dioxide 29 mmol/L (22-29); Chloride 104 mmol/L (96-108); Creatinine Clr Calc Pharmacy 76.4; Estimated Glomerular Filt Rate > 60; Potassium 4.4 mmol/L (3.3-5.1); Sodium 139 mmol/L (135-145)
[2025-04-16] MEDS: Milk of Magnesia 30 ML ORAL.SUSP PO (08:32)
--- NOTE | 2025-04-16 09:18 | P.DS_ITS ---
DS: Providers Provider Date of Service: 04/17/25 Date of admission: 04/14/25 16:42 Date of discharge: 04/17/25 Primary care physician: Emilie Davis MD DS: Diagnosis Discharge Diagnosis (1) Depression: Status: Acute DS: Summary Hospital Course Hospital Course: from initial hpi: 55 transmale [facility] pancreatic adenocarcinoma currently receiving neoadjuvant chemotherapy, hypertension, hyperlipidemia, GERD, esophageal and pyloric stenosis presented with presyncopal event. Was at clinic and started feeling woozy and lightheaded and possibly Fully passed out. Reports hitting object with chest. If lost consciousness was brief, last dose of chemo was 2 days prior to presentation. Reports eating and drinking at breakfast in a.m.. Reports constipation with hard stools. In ED leukocytosis of 14, CT abdomen with abundant stool without intestinal obstruction and known pancreatic mass hospital course: Patient was admitted for presyncope likely due to dehydration improved with IV fluids no events on telemetry. For constipation with abdominal pain due to opiates due to pancreatic adenocarcinoma was treated with laxatives stool softeners and enema, eventually had bowel movement with improvement in symptoms. For moderate protein calorie malnutrition due to pancreatic adenocarcinoma p.o. nutrition is encouraged patient is currently undergoing neoadjuvant chemotherapy. For chest pain this was likely traumatic from syncopal event no evidence of fracture, pain is controlled. Time Attestation Discharge Coordination Time (in mins): 34 Quality: Safe Use of Opioids Does Pt have an Active Cancer Diagnosis on the Problem List?: Yes Opioid Measure Date for [facility] Report: 03/18/25 Opioid Measure Time for [facility] Report: 09:48 Quality: Stroke Does the patient have a stroke diagnosis?: No Physical Exam Exam: Exam: General: AO X 3, ill-appearing, frail, cachectic Resp: CTA bilateral, no accessory muscles used CVS: S1,S2,RRR GI: soft, tender, non distended Neuro: motor grossly intact, alert Psych: appropriate affect, appropriate insight Vital Signs: Vital Signs: Last Vital Signs Temp 98.9 F 04/16/25 07:01 Pulse 50 04/16/25 07:01 Resp 18 04/16/25 07:01 BP 94/57 L 04/16/25 07:01 Pulse Ox 97 04/16/25 07:01 O2 Del Method Room Air 04/16/25 07:01 BMI result Body Mass Index 16.7 DS: Data Data Completed and Pending Labs on day of discharge: Laboratory Results - last 24 hr 04/16/25 06:58 WBC 6.6 RBC 4.03 L Hgb 11.7 L Hct 34.7 L MCV 86.1 MCH 29.0 MCHC 33.7 RDW 14.7 Plt Count 276 MPV 8.9 L Absolute Nucleated RBC 0.000 Nucleated RBC % (auto) 0.0 Sodium 139 Potassium 4.4 Chloride 104 Carbon Dioxide 29 Anion Gap 10 L BUN 13 Creatinine 0.59 Estim Creat Clear Calc 76.4 Estimated GFR > 60 Random Glucose 95 Calcium 9.5 D Discharge Plan Discharge Anticipated Discharge Date/Time: 04/16/25 09:17 Patient Disposition: Home, Self-Care Discharge Diagnosis: syncope, constipation Referrals: Emilie Davis MD [Primary Care Provider, [facility]] - 1 Week Discharge Medications: Continued oxycodone 10 mg tablet 10 mg PO Q4H PRN (Reason: pain) Qty: 20 0RF Rx Instructions: Partial Fill upon patient request. dexamethasone 4 mg Tablet 4 mg PO BID Qty: 30 0RF Rx Instructions: Take 1 tablet twice a day day 2 and 3 after chemotherapy; gets chemo treatment Wednesdays-Fridays (takes on & Saturday BID). lorazepam 0.5 mg tablet 0.5 mg PO BEDTIME PRN (Reason: anxiety) bisacodyl [Dulcolax (bisacodyl)] 5 mg tablet,delayed release (DR/EC) 10 mg PO BEDTIME PRN (Reason: Constipation) lidocaine 5 % ointment 1 appl topical BID PRN (Reason: port a cath) ondansetron 8 mg tablet,disintegrating 8 mg PO Q8H PRN (Reason: nausea and vomiting ) Qty: 20 0RF (DME) Oxygen Home Use Kit See Rx Instructions .Route Qty: 3 0RF Rx Instructions: Start home O2 at 15-25 L/min via non-rebreather facemask x's 15-20 minutes at onset of cluster headache attack. Patient will require both M tanks and E tanks. Discharge Orders: Discharge Order (Routine); Ordered 04/17/25 Ordered By: Frantz Aguillon Diet: Advance to usual diet Activity on Discharge: As tolerated Stand Alone Forms: Patient Portal Discharge page Print Language: German Care Plan Goals: avoid constipation and hypotension Health Concerns: hypotension and constipation Plan of Treatment: stool softeners and laxatives, hydration Assessment: see above
--- NOTE | 2025-04-16 09:20 | P.PNIM_ITS ---
Subjective Subjective Date of Service: 04/16/25 Interval History: no bm Physical Exam 2 Exam: Exam: General: AO X 3, ill-appearing, frail, cachectic Resp: CTA bilateral, no accessory muscles used CVS: S1,S2,RRR GI: soft, tender, non distended Neuro: motor grossly intact, alert Psych: appropriate affect, appropriate insight Vital Signs: Vital Signs: Last Vital Signs Temp 98.9 F 04/16/25 07:01 Pulse 50 04/16/25 07:01 Resp 18 04/16/25 07:01 BP 94/57 L 04/16/25 07:01 Pulse Ox 97 04/16/25 07:01 O2 Del Method Room Air 04/16/25 07:01 BMI result Body Mass Index 16.7 Objective Data Active Medications Acetaminophen (Acetaminophen 325 Mg Tablet) 650 mg PO Q6H PRN PRN Reason: Pain, Mild 1-3,fever,headache Calcium Carbonate (Calcium Carbonate 750 Mg Tab.Chew) 750 mg PO Q4H PRN PRN Reason: Heartburn Dexamethasone (Dexamethasone 4 Mg Tablet) 4 mg PO BID [facility] Last Admin: 04/16/25 08:29 Dose: 4 mg Documented By: TY Enoxaparin Sodium (Enoxaparin Sodium 30 Mg/0.3 Ml Syringe) 30 mg SUBCUT Q24H [facility] Last Admin: 04/16/25 08:29 Dose: 30 mg Documented By: TY Lactated Ringer's (Lr) 1,000 mls @ 80 mls/hr IVCONT .[id number] [facility] Last Admin: 04/16/25 05:43 Dose: 80 mls/hr Documented By: BUSSIEL Lorazepam (Lorazepam 0.5 Mg Tablet) 0.5 mg PO BEDTIME PRN PRN Reason: Anxiety Magnesium Hydroxide (Milk Of Magnesia 30 Ml Oral.Susp) 30 ml PO DAILY PRN PRN Reason: Constipation Last Admin: 04/16/25 08:32 Dose: 30 ml Documented By: TY Melatonin (Melatonin 3 Mg Tablet) 6 mg PO BEDTIME PRN PRN Reason: Insomnia Ondansetron HCl (Ondansetron Hcl 4 Mg/2 Ml Vial) 4 mg IVPUSH Q6H PRN PRN Reason: Nausea Last Admin: 04/16/25 08:38 Dose: 4 mg Documented By: TY Oxycodone HCl (Oxycodone Hcl Immed Release 5 Mg Tablet) 10 mg PO Q4H PRN PRN Reason: Pain, Severe (Pain Scale 7-10) Last Admin: 04/16/25 01:30 Dose: 10 mg Documented By: CEASAR Sodium Chloride (0.9 % Sodium Chloride Flush 3 Ml Syringe) 3 ml IVFLUSH QSHIFT KARLI Last Admin: 04/16/25 08:21 Dose: Not Given Documented By: TY Non-Admin Reason: IV Running Labs 04/16/25 06:58 04/16/25 06:58 Labs: Laboratory Results - last 24 hr 04/16/25 06:58 MCV 86.1 MCH 29.0 MCHC 33.7 RDW 14.7 Plt Count 276 MPV 8.9 L Absolute Nucleated RBC 0.000 Nucleated RBC % (auto) 0.0 Anion Gap 10 L Estim Creat Clear Calc 76.4 Estimated GFR > 60 Random Glucose 95 Calcium 9.5 D Assessment and Plan (1) Depression: Status: Acute Plan 55 transmale [facility] pancreatic adenocarcinoma currently receiving neoadjuvant chemotherapy, hypertension, hyperlipidemia, GERD, esophageal and pyloric stenosis presented with presyncopal event Presyncope Likely due to dehydration monitor on tele - no events constipation with abdominal pain enema Moderate protein calorie malnutrition due to pancreatic adenocarcinoma Currently on neoadjuvant therapy Following with oncology Chest pain Suspect traumatic, no evidence of fracture, pain control DVT prophylaxis with Lovenox full code reason for continued hospitalization:hasnt had BM Quality Stroke Does the patient have a stroke diagnosis?: No VTE Prior VTE?: No VTE Risk Level:: Medical - moderate - high VTE Device Contraindication: Treatment Not Indicated VTE Drug Contraindication: N/A - Med Ordered
--- NOTE | 2025-04-16 11:19 | MHC.CLN ---
F/U PT IS MODERATELY MALNOURISHED-QUALIFIES NON SEVERE IN CONTEXT OF CHRONIC ILLNESS SEE FULL ASSESSMENT DATED 04/15/25 POOR PO INTAKE PUSH BENCH OPERATOR HELPER REPORTED REGULAR DIET RECEIVING ENSURE BID TO INCREASE KCALS SUPPLEMENT PROVIDES 700KCALS, 40G PROTEIN MONITOR PO INTAKE AND ENCOURAGE SUPPLEMENTS
[2025-04-16 11:31] VITALS: BP 105/70; PULSE 63; RESP 18; TEMP 36.5; O2SAT 98
[2025-04-16 16:00] VITALS: BP 92/61; PULSE 92; RESP 20; TEMP 36.6; O2SAT 97
[2025-04-16 20:00] VITALS: BP 103/65; PULSE 68; RESP 18; TEMP 36.3; O2SAT 98
[2025-04-16 23:19] VITALS: BP 99/62; PULSE 60; RESP 18; TEMP 36.6; O2SAT 98
[2025-04-17 03:05] VITALS: BP 89/54; PULSE 62; RESP 18; TEMP 36.6; O2SAT 95
[2025-04-17 04:15] VITALS: BP 96/58
[2025-04-17 08:00] VITALS: BP 94/63; PULSE 85; RESP 18; TEMP 36.6; O2SAT 96
--- NOTE | 2025-04-17 10:26 | MHC.CM.PN ---
PATIENT IS MEDICALLY CLEARED FOR DISCHARGE HOME SELF-CARE, PATIENT HAS ARRANGED THEIR OWN TRANSPORT HOME TODAY.
== END 2025-04-17 10:24 | disposition home or self-care (01) ==
LOC: HO.ED 16:28 → HO.EDOVER 16:55 → HO.IMC 19:33
PROVIDERS: Admitting Provider Internal Medicine; Emergency Provider Emergency Medicine; PCP Family Medicine; Visit Provider Internal Medicine
DX: R55 Syncope and collapse (principal); F32.A Depression, unspecified; R63.4 Abnormal weight loss; R07.9 Chest pain, unspecified; K59.00 Constipation, unspecified; S09.90XA Unspecified injury of head, initial encounter; W19.XXXA Unspecified fall, initial encounter; Y93.9 Activity, unspecified; Y92.9 Unspecified place or not applicable; R00.1 Bradycardia, unspecified; I10 Essential (primary) hypertension; E78.5 Hyperlipidemia, unspecified; K21.9 Gastro-esophageal reflux disease without esophagitis; R10.9 Unspecified abdominal pain; Z79.899 Other long term (current) drug therapy; Z85.07 Personal history of malignant neoplasm of pancreas; Z92.21 Personal history of antineoplastic chemotherapy
CPT/HCPCS: 36415; 70450; 71275; 72125; 74177; 80048; 80076; 81003; 83735; 84484; 85025; 85027; 85379; 85610; 93005; 96361; 96372; 96374; 96375; 96376; 99222; 99285; J0737; J1171; J1642; J1650; J2270; J2405; J7120; J8540; Q9967

== ENCOUNTER → 2025-04-14 13:06 | Outpatient (BNV) | payer OTHER, SELFPAY | PROVIDERS: Admitting Provider Internal Medicine; Emergency Provider Emergency Medicine; PCP Family Medicine; Visit Provider Internal Medicine | DX: R00.1 Bradycardia, unspecified (principal) | CPT/HCPCS: 93010 ==

== ENCOUNTER → 2025-04-14 16:42 | Outpatient (BNV) | payer OTHER, SELFPAY | PROVIDERS: Admitting Provider Internal Medicine; Emergency Provider Emergency Medicine; PCP Family Medicine; Visit Provider Internal Medicine | DX: F32.A Depression, unspecified (principal); R55 Syncope and collapse; K59.00 Constipation, unspecified | CPT/HCPCS: 99223; 99232; 99233; 99239 ==

== ENCOUNTER 2025-04-22 07:55 | Inpatient (IN) | payer OTHER, SELFPAY ==
[2025-04-22] VITALS (9 sets, daily range): BP systolic 100–154; BP diastolic 65–98; PULSE 86–129; RESP 14–28; TEMP 36.5–36.9; O2SAT 95–100; BMI 15.2; BMI 16.6
--- NOTE | ~2025-04-22 | CT_ITS ---
EXAMINATION: CT ABDOMEN AND PELVIS WITHOUT CONTRAST CLINICAL INFORMATION: 55-year-old female. Abdominal pain. Mass in pancreatic uncinate process. Known pancreatic cancer. COMPARISON: 04/14/2025, 03/31/2025, 03/22/2025, 02/18/2025. MRI abdomen 01/19/2025. TECHNIQUE: Multidetector volumetric imaging was performed from the superior aspect of the liver through the pubic symphysis. Sagittal and coronal reformatted images were obtained on the technologist's workstation. This CT examination was performed using dose optimization techniques as appropriate, variously including the following: *Automated exposure control *Adjustment of mA and/or kV according to patient size (this includes techniques or standardized protocols for targeted exams where dose is matched to indication/reason for exam; i.e. extremities or head) *Use of iterative reconstruction technique FINDINGS: Study is significantly limited without the benefit of IV contrast. LUNG BASES: Lung bases demonstrate calcified granuloma in the right lower lobe, as well as the lingula. There is minor dependent atelectasis. Lung bases otherwise clear. No consolidations or effusions. Heart size is normal. No pericardial effusion. LIVER, GALLBLADDER, AND BILIARY TREE: The unenhanced liver is normal in size, shape, and attenuation. No definitive focal hepatic lesion present. The gallbladder is surgically absent. Extrahepatic bile duct dilated to approximately 1.1 cm, unchanged. There may be mild intrahepatic ductal dilatation, however evaluation is limited without contrast. PANCREAS: Redemonstration of a mildly low attenuating mass lesion in the uncinate process, unchanged from the prior recent examination but poorly evaluated without contrast. It previously measured approximately 2.5 cm. Mild prominence of the main pancreatic duct, measuring up to 3 mm. Unenhanced pancreas otherwise normal. SPLEEN: Unremarkable. ADRENAL GLANDS: Unremarkable. KIDNEYS AND URETERS: The unenhanced kidneys are normal in size, shape, and attenuation. No hydronephrosis, hydroureter, or calculi seen. Extrarenal pelves noted. No gross perinephric stranding. BLADDER: Partially distended, and normal. GASTROINTESTINAL TRACT: Diffuse dilatation of the entire colon is present, with the ascending colon and transverse colon measuring up to 5.9 cm in diameter. Mild wall thickening of the descending colon extending into the sigmoid, with rectal involvement, suggestive of segmental colitis. No pneumatosis. There is very mild pericolonic fat stranding abutting the thickened segments. There are a few scattered diverticula of the sigmoid. There is semisolid stool seen throughout the colon. A normal appendix is visualized. Small bowel is nondilated and has a normal noncontrast appearance. The terminal ileum compressed. The ileocecal valve appears normal. The stomach is decompressed. The duodenum demonstrates no abnormal dilatation. PERITONEUM/RETROPERITONEUM: There is no free air. There is no gross ascites. ABDOMINAL WALL: Normal without significant hernia or mass. LYMPH NODES: There is an 8 mm lymph node abutting the cecum, with a few smaller lymph nodes in this region. These are nonspecific. There is otherwise no abnormal lymphadenopathy present in the abdomen or pelvis. VASCULAR: Mild to moderate atheromatous calcification of the aorta and iliac arteries. No aneurysm. PELVIC VISCERA: Uterus not well seen. Probable hysterectomy. There are no adnexal masses. OSSEOUS STRUCTURES: The SI joints have a normal appearance. The hip joints have normal appearance. There are no suspicious lytic or blastic bone lesions. There are mild degenerative changes of the lumbar spine most notable at L4-5. CT/CT abdomen pelvis wo IV con IMPRESSION: Inherently limited examination without IV contrast. 1. There is diffuse dilatation of the entire colon, with the transverse colon measuring up to 5.9 cm in diameter. There is wall thickening of the colon beginning at the splenic flexure and extending throughout the rectum consistent with segmental colitis. This is either infectious or inflammatory in nature. Ischemic is considered less likely. There is no pneumatosis present. There is semisolid stool seen throughout the dilated colon. 2. The small bowel is normal in caliber and course without dilatation. 3. Redemonstration of an approximate 2.5 cm mass within the uncinate process of the pancreas. This is poorly evaluated without contrast although grossly stable. No definitive distant metastasis present on this limited noncontrast examination. There is mild biliary and pancreatic ductal dilatation, similar. 4. Several ancillary findings as discussed in the body of the report, stable from prior examinations. Electronically signed by: Micah Hastings MD 04/22/2025 10:12 AM [facility]
--- NOTE | ~2025-04-22 | XR_ITS ---
EXAMINATION: XR CHEST CLINICAL INFORMATION: dyspnea COMPARISON: May 31, 2020. Correlated to CT chest PE protocol dated April 14, 2025. TECHNIQUE: AP portable upright view of the chest was obtained. FINDINGS: Hyperinflated lungs. Pulmonary reticular nodular pattern with calcified pulmonary nodules, the largest, 5 mm in the right lower hemithorax. No pleural effusion or pneumothorax. Left-sided Port-A-Cath tip ends in the SVC, unchanged. Cardiomediastinal silhouette size is small. Degenerative changes in the shoulders. Mild dextroconvex curvature of the thoracolumbar spine. XR/XR chest 1V IMPRESSION: COPD emphysematous type changes and prior granulomatous disease. No acute airspace disease. Electronically signed by: Eric Daley MD 04/22/2025 08:42 AM [facility]
--- NOTE | ~2025-04-22 | XR_ITS ---
CLINICAL HISTORY: abd pain, constipation Supine view abdomen Comparison: CT/REG/SR - CT ABDOMEN PELVIS W IV CON - 03/31/25 18:16 EST CR/SR - XR ABDOMEN 2 VIEWS SUPINE ERECT - 01/08/25 10:54 EDT Findings: Nonspecific bowel gas pattern. Normal stool quantity. No abnormal calcifications. No pneumoperitoneum or pneumatosis. Renal psoas margins are normal. No organomegaly. No radiopaque calculi. Osseous structures intact. Impression: 1. Nonspecific bowel gas pattern. This document has been electronically signed by: Fransisco Pham MD on 04/24/2025 12:27:03
--- NOTE | 2025-04-22 08:15 | ECG_ITS ---
Test Reason : N/V Blood Pressure : */* mmHG Vent. Rate : 113 BPM Atrial Rate : 113 BPM P-R Int : 104 ms QRS Dur : 54 ms QT Int : 310 ms P-R-T Axes : 23 53 -81 degrees QTcB Int : 425 ms Poor data quality Possible Sinus tachycardia with short OR ST & T wave abnormality, consider inferolateral ischemia Abnormal ECG When compared with ECG of 14-Apr-2025 13:55, Vent. rate has increased by [address] now depressed in Anterior leads Inverted T waves have replaced nonspecific T wave abnormality in Inferior leads Inverted T waves have replaced nonspecific T wave abnormality in Lateral leads Referred By: Gutierrez Mathias Electronically Signed By: DAI MCCULLOUGH MD
--- NOTE | 2025-04-22 08:17 | ED_ITS ---
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 Mar, on chemotherapy, chronic abdominal pain and GERD, presenting with burping, abdominal pain, reports diarrhea, presented via EMS. Related Data Home Medications ?Medication ?Instructions ?Recorded ?Confirmed bisacodyl 5 mg tablet,delayed 10 mg PO BEDTIME PRN Con stipation 03/22/25 04/14/25 release (Dulcolax (bisacodyl)) lidocaine 5 % topical ointment 1 appl topical BID PRN port a cath 03/22/25 04/14/25 lorazepam 0.5 mg tablet 0.5 mg PO BEDTIME PRN anxiet y 03/22/25 04/14/25 Previous Rx's ?Medication ?Instructions ?Recorded Oxygen Home Use #3 ea 09/24/24 dexamethasone 4 mg tablet 4 mg PO BID #30 tabs 03/11/2 5 ondansetron 8 mg disintegrating 8 mg PO Q8H PRN Nausea And 04/21/25 tablet Vomiting #60 tabs oxycodone 10 mg tablet 10 mg PO Q6H PRN Pain (Scale Score 04/21/25 7-10) #60 tabs Allergies Allergy/AdvReac Type Severity Reaction Status Date / Time black pepper Allergy Severe Anaphylaxis Verified 04/22/25 08:17 Penicillins (PENICILLINS) Allergy Intermediate HIVES,SWELL Verified 04/22/25 08:17 ING sumatriptan (SUMATRIPTAN) AdvReac Severe PT STATES Verified 04/22/25 08:17 HEART ATTACK berries Allergy Unknown Anaphylaxis Uncoded 03/30/25 15:02 Review of Systems Constitutional: Reports as per HPI FOR[facility]LY [facility] Past Medical History Medical History Pancreatic adenocarcinoma Elevated LFTs Pancreatic mass Acute pancreatitis Pancreatic mass Upper abdominal pain Erosive esophagitis Abdominal pain Sleep difficulties Vomiting LEE (dyspnea on exertion) Arthritis Occipital neuralgia of left side New onset headache Diverticulosis of colon Chronic, continuous use of opioids Chronic GERD Palpitations Hypotension History of palpitations Dysphagia Disc degeneration, lumbar Spondylosis of lumbar spine Depression Past heart attack Hyperlipemia Erosive osteoarthritis of hands, bilateral GERD (gastroesophageal reflux disease) Hypertension Surgical History History of cholecystectomy Hx of colonoscopy History of esophagogastroduodenoscopy (EGD) H/O bilateral mastectomy H/O: hysterectomy Family History Family History Mother Hypertension Breast cancer Maternal Grandmother Myocardial infarct Skin cancer Sister Heart problem Breast cancer Family/Other Esophageal cancer Social History Social History Household Members: None Housing: Apartment Are you a primary urgent care physician to a significant other at home: No Do you presently have visiting nurse or other home services: No Alcohol intake: never Patient Tobacco Use Status: Former Tobacco user Smoked in Last 30 Days: No Second Hand Smoke Exposure: No Use of substances other than those prescribed or required for medical reasons: No Substance Use Type: Marijuana Advance Directives: No Advance Directives Information Provided: Yes Patient : No service: No Physical Exam ED Exam Exam: ?General: ??looks age appropriate, appears in discomfort ?Dry oral mucosa, no scleral icterus, no blood in the airway Neck: Supple, no LAD ?CV: RRR, no obvious murmurs appreciated ?Resp: ?No wheezing rales rhonchi no stridor moving air well Abd: ?Somewhat distended, decreased bowel sounds, generalized tenderness MSK: FROM, strength 5/5 all extremities Skin: Warm, dry, intact, no jaundice ?Neuro: ?Alert and oriented x3, moving upper and lower extremities symmetrically, no obvious facial asymmetry noted, cranial nerves 2-12 intact Vital Signs: Vital Signs - 24 hr 04/22/25 08:15 04/22/25 08:44 04/22/25 09:54 Temperature 97.7 F Pulse Rate 129 H 111 H 102 H Respiratory Rate 28 H 24 H 20 Blood Pressure 141/98 H 107/76 Pulse Oximetry 97 98 95 Oxygen Delivery Method Room Air Room Air Room Air BMI result Body Mass Index 15.2 Medical Decision Making Medical Decision Making MDM Narrative: 8:22 AM 04/22/2025 (Dr. Gutierrez Mathias): I reviewed patient's prior ER visits, we will obtain further imaging for evaluation of SBO, she does have quite a bit of tenderness, I feel like her bowel sounds are decreased, she just had CT however about 8 days ago that did not reveal any evidence of SBO but she is high-risk for that giving her the fact that she is on pain medications, other considerations as below, we will start medicating I think nausea is the primary issue, and she has documented history of GERD, disposition to be determined, anticipating discussing case with Oncology after workup is complete. 9:17 AM 04/22/2025 (Dr. Gutierrez Mathias): Currently my impression lactic elevation to 3.0 tachycardia is not due to infectious etiology but dehydration, no leukocytosis, no fevers, no other evidence of end-organ damage, but I will obtain blood cultures, lactic we will be reflexed patient will be re-evaluated 10:16 AM 04/22/2025 (Dr. Gutierrez Mathias): CT reveals findings appears to be consistent with stercolitis, at this point will order ABx, updated o GI Dr. Mayorga and Dr. Mar of my plan for abx and admission Differential Diagnosis Differential Diagnoses: The differential diagnosis associated with the presentation includes (SBO, bowel perforation, volvulus, dehydration, electrolyte derangements, ACS) Admission/Observation Consideration of admission/observation: Escalation of care including admission/observation considered Consult Healthcare Provider Management of the patient was discussed with: Sustainable Landscape Architect (Dr. Mar, Dr. Mayorga) Lab Data MDM Lab Attestation statement: I reviewed the patient's lab results. 04/22/25 08:26 04/22/25 08:26 Labs: Lab Results 04/22/25 Range/Units 08:26 WBC 6.3 (4.8-10.8) X10*3/uL RBC 5.24 D (4.20-5.50) X10*6/uL Hgb 15.4 D (12.0-16.0) g/dl Hct 44.5 D (37.0-47.0) % MCV 84.9 (80.0-98.0) fL MCH 29.4 (27.0-33.0) pg MCHC 34.6 (31.0-35.0) g/dl RDW 14.7 (11.0-16.0) % Plt Count 270 (160-400) X10*3/uL MPV 8.8 L (9.4-12.3) fL Immature Gran % (Auto) Cancelled Neut % (Auto) Cancelled Lymph % (Auto) Cancelled [place] % (Auto) Cancelled Eos % (Auto) Cancelled Baso % (Auto) Cancelled Lymph # (Auto) Cancelled [place] # (Auto) Cancelled Eos # (Auto) Cancelled Baso # (Auto) Cancelled Abs Immat Gran (auto) Cancelled Absolute Neuts (auto) Cancelled Absolute Nucleated RBC 0.000 (0.0-0.012) X10*3/uL Nucleated RBC % (auto) 0.0 (0.0-0.2) /100WBC Neutrophils % (Manual) 31 L (45-73) % Band Neutrophils % 15 H (3-5) % Lymphocytes % (Manual) 32 (20-40) % Monocytes % (Manual) 19 H (2-11) % Basophils % (Manual) 1 (0-2) % Metamyelocytes % 1 % Myelocytes % 1 % Abs Neuts (Manual) 2.9 (2.0-8.3) X10*3/uL Lymphocytes # (Manual) 2.0 (1.2-4.9) X10*3/uL Monocytes # (Manual) 1.2 (0.1-1.2) X10*3/uL Basophils # (Manual) 0.1 (0.0-0.2) X10*3/uL Metamyelocytes # 0.1 X10*3/uL Myelocytes # 0.1 X10*/uL Platelet Estimate NORMAL (NORMAL) Large Platelets PRESENT Plt Morphology Comment NOTE RBC Morphology NORMAL Polychromasia 1+ (0-2) /OIF Ovalocytes 1+ (5-14) /OIF [place] Bodies PRESENT [place] Cells 2+ (3-5) /OIF Sodium 135 (135-145) mmol/L Potassium 4.4 (3.3-5.1) mmol/L Chloride 101 (96-108) mmol/L Carbon Dioxide 25 (22-29) mmol/L Anion Gap 13 (12-20) BUN 10 (9-16) mg/dL Creatinine 0.80 (0.5-1.4) mg/dL Estim Creat Clear Calc 51.2 Estimated GFR > 60 Random Glucose 175 H (60-115) mg/dL Lactic Acid 3.0 H* (0.5-2.0) mmol/L Calcium 9.3 (8.4-10.2) mg/dL Magnesium 2.2 (1.6-2.6) mg/dL Total Bilirubin 0.6 (0.0-1.0) mg/dL AST 48 H (5-31) U/L ALT 47 H (0-31) U/L Alkaline Phosphatase 104 (39-117) U/L Total Protein 7.7 (6.5-8.0) g/dL Albumin 4.3 (3.5-5.0) g/dL Lipase 18 (8-78) U/L Independent Interpretation I performed an independent interpretation of an: EKG (113 beats per minute, no QTC prolongation) and Plain X-Ray (My independent chest xray interpretation: Lungs: Lungs are clear bilaterally without evidence of focal consolidation, pleural effusion, or pneumothorax. Cardiac silhouette is unremarkable, no obvious mediastinal widening, no obvious bony abnormalities such as fractures. Impression: Normal chest X-r) Radiology Impression Discussion of test interpretation with radiology: I have reviewed the radiologist's reading. ( XR/XR chest 1V IMPRESSION: COPD emphysematous type changes and prior granulomatous disease. No acute airspace disease.) Radiologist Impression: 1. There is diffuse dilatation of the entire colon, with the transverse colon measuring up to 5.9 cm in diameter. There is wall thickening of the colon beginning at the splenic flexure and extending throughout the rectum consistent with segmental colitis. This is either infectious or inflammatory in nature. Ischemic is considered less likely. There is no pneumatosis present. There is semisolid stool seen throughout the dilated colon. 2. The small bowel is normal in caliber and course without dilatation. 3. Redemonstration of an approximate 2.5 cm mass within the uncinate process of the pancreas. This is poorly evaluated without contrast although grossly stable. No definitive distant metastasis present on this limited noncontrast examination. There is mild biliary and pancreatic ductal dilatation, similar. 4. Several ancillary findings as discussed in the body of the report, stable from prior examinations. Medications Administered Discontinued Medications Generic Name Dose Route Start Last Admin Trade Name Freq PRN Reason Stop Dose Admin Droperidol 0.625 mg 04/22/25 08:15 04/22/25 08:38 Droperidol 5 Mg/2 Ml Vial IVPUSH 04/22/25 08:16 0.625 mg ONCE ONE Administration Famotidine 20 mg 04/22/25 08:15 04/22/25 08:39 Famotidine/Pf 20 Mg/2 Ml Vial IVPUSH 04/22/25 08:16 20 mg ONCE ONE Administration Hydromorphone HCl 0.5 mg 04/22/25 09:35 04/22/25 09:53 Hydromorphone Hcl 0.5 Mg/0.5 Ml Syringe IVPUSH 04/22/25 09:36 0.5 mg ONCE ONE Administration Protocol Sodium Chloride 1,000 mls @ 999 mls/hr 04/22/25 08:15 04/22/25 09:50 Ns IV 04/22/25 09:15 Infused .Q1H1M KARLI Infusion Acetaminophen 1,000 mg in 100 mls @ 400 mls/hr 04/22/25 08:27 04/22/25 09:50 Ofirmev IV 04/22/25 08:41 Infused ONCE ONE Infusion Critical Care Time Critical Care Time Critical Care Time: Yes Total Critical Care Time: 45 Attestation: Time is exclusive of separately billable procedures. Time includes: direct patient care, patient reassessment, coordination of patient care, interpretation of data (laboratory data, pulse oximetry, arterial blood gases and chest xrays), review of patient's medical records, medical consultation and documentation of patient care. Procedures excluded from critical care time: central intravenous line placement and electrocardiography. Discharge Plan Discharge Clinical Impression: Colitis, Pancreatic cancer, Dehydration, Continuous severe abdominal pain Prescriptions: No Action dexamethasone 4 mg Tablet 4 mg PO BID Qty: 30 0RF Rx Instructions: Take 1 tablet twice a day day 2 and 3 after chemotherapy; gets chemo treatment Wednesdays-Fridays (takes on & Saturday BID). ondansetron 8 mg Tablet,Disintegrating 8 mg PO Q8H PRN (Reason: Nausea And Vomiting) Qty: 60 0RF oxycodone 10 mg Tablet 10 mg PO Q6H PRN (Reason: Pain (Scale Score 7-10)) Qty: 60 0RF Rx Instructions: Partial Fill upon patient request. lorazepam 0.5 mg tablet 0.5 mg PO BEDTIME PRN (Reason: anxiety) bisacodyl [Dulcolax (bisacodyl)] 5 mg tablet,delayed release (DR/EC) 10 mg PO BEDTIME PRN (Reason: Constipation) lidocaine 5 % ointment 1 appl topical BID PRN (Reason: port a cath) (DME) Oxygen Home Use Kit See Rx Instructions .Route Qty: 3 0RF Rx Instructions: Start home O2 at 15-25 L/min via non-rebreather facemask x's 15-20 minutes at onset of cluster headache attack. Patient will require both M tanks and E tanks. Print Language: Bulgarian
[2025-04-22 08:32] LABS: Hematocrit 44.5 % (37.0-47.0); Hemoglobin 15.4 g/dl (12.0-16.0); Mean Corpuscular HGB Conc 34.6 g/dl (31.0-35.0); Mean Corpuscular Hemoglobin 29.4 pg (27.0-33.0); Mean Corpuscular Volume 84.9 fL (80.0-98.0); NRBC Abs Auto 0.000 X10*3/uL (0.0-0.012); NRBC Pct Auto 0.0 /100WBC (0.0-0.2); Platelet Count 270 X10*3/uL (160-400); Red Blood Count 5.24 X10*6/uL (4.20-5.50); White Blood Count 6.3 X10*3/uL (4.8-10.8)
[2025-04-22 08:48] LABS: Alanine Aminotransferase 47 U/L (0-31); Albumin Level 4.3 g/dL (3.5-5.0); Alkaline Phosphatase 104 U/L (39-117); Anion Gap 13 (12-20); Aspartate Amino Transferase 48 U/L (5-31); Blood Urea Nitrogen 10 mg/dL (9-16); Calcium 9.3 mg/dL (8.4-10.2); Carbon Dioxide 25 mmol/L (22-29); Chloride 101 mmol/L (96-108); Creatinine Clr Calc Pharmacy 51.2; Estimated Glomerular Filt Rate > 60; Lipase 18 U/L (8-78); Magnesium 2.2 mg/dL (1.6-2.6); Potassium 4.4 mmol/L (3.3-5.1); Sodium 135 mmol/L (135-145); Total Protein 7.7 g/dL (6.5-8.0)
[2025-04-22 09:14] LABS: Neutrophils Percent Manual 31 % (45-73)
[2025-04-22 09:24] LABS: Band Neutrophils Percent 15 % (3-5); Basophils Abs Manual 0.1 X10*3/uL (0.0-0.2); Basophils Percent Manual 1 % (0-2); Lymphocytes Absolute Manual 2.0 X10*3/uL (1.2-4.9); Lymphocytes Percent Manual 32 % (20-40); Metamyelocytes Absolute 0.1 X10*3/uL; Metamyelocytes Percent 1 %; Monocytes Absolute Manual 1.2 X10*3/uL (0.1-1.2); Monocytes Percent Manual 19 % (2-11); Myelocytes Absolute 0.1 X10*/uL; Myelocytes Percent 1 %; Neutrophils Absolute Manual 2.9 X10*3/uL (2.0-8.3); RBC Morphology NORMAL
[2025-04-22 09:25] LABS: Burr Cells 2+ (3-5) /OIF; Large Platelet PRESENT
[2025-04-22 09:26] LABS: Ovalocytes 1+ (5-14) /OIF; Polychromasia 1+ (0-2) /OIF
--- NOTE | 2025-04-22 09:36 | PC.NURSE ---
Pt is alert and oriented, reporting n/v and belching x 4 days. Pt reports h/o Pancreatic CA with chemo last week shortly before sx started. Port noted to left chest, however no indication of power port in prior imaging or portable chest done today. 18g to left ac obtained. Medicated as charted with + effect. Pt awaiting CT scan results at this time. Ambulatory to bathroom. HR trending down to low 100s
[2025-04-22 10:31] LABS: Reflex Lactate? Lactic Acid Added
[2025-04-22] MEDS: metroNIDAZOLE/NS 500 MG/100 ML PIGGYBACK 100 MG IV ×2 (11:32→18:34)
[2025-04-22 11:37] LABS: ~Lactic Acid-LAB USE ONLY 1.0 mmol/L (0.5-2.0)
--- NOTE | 2025-04-22 11:55 | PM.IMHP ---
History of Present Illness Date of Service: 04/22/25 Attending physician on admission: Yeison Barker Chief Complaint: abdominal pain This is a 55-year-old transgender male with history of pancreatic cancer undergoing chemotherapy who presents to the emergency department with abdominal pain. Patient had an abdominal MRI in January 2025 for acute pancreatitis which revealed a hypoenhancing solid mass concerning for malignancy. He underwent endoscopic ultrasound with biopsy of the mass at [facility] on February 18. He was ultimately diagnosed with pancreatic adenocarcinoma and was started on neoadjuvant chemotherapy. The last dose of chemotherapy was April 12. He was admitted from 04/14 to 04/16 for abdominal pain due to constipation, and presyncope due to dehydration. Was treated with stool softenders and enema and had BM with improvement in symptoms. He returns to the ED today with ongoing abdominal pain. There is b/l lower abdominal pain and epigastric pain. Nausea and vomiting has been present intermitently since starting chemotherapy. He has been drinking prune juice and using miralax and is having daily stools which range from liquid to soft. Having chills but denies fever, no recent travel, take out food or recent sick contacts. Persistent decreased oral intake. In the ED, lipase was low, there was no fever or leukocytosis. Lactic acid was 3.0. CT scan of the abdomen and pelvis showed ongoing diffuse dilation of the entire colon with a transverse colon measuring up to 5.9 cm in diameter with thickening of the colon beginning at the splenic flexure and extending throughout the rectum consistent with segmental colitis, either infectious or inflammatory in nature. Ischemic is considered less likely. There is no pneumatosis. Semi solid stool is seen throughout the dilated colon. Was treated with empiric antibiotics, pain medication and admission was requested. Review of Systems Review of Systems: Yes all other systems are reviewed and are negative Constitutional: Constitutional: Reports chills and Denies fever(s) Respiratory: Respiratory: Denies cough Gastrointestinal: Gastrointestinal: Reports abdominal pain, Reports diarrhea, Reports nausea and Reports vomiting FOR[facility]LY [facility] Medical History Pancreatic adenocarcinoma Elevated LFTs Pancreatic mass Acute pancreatitis Pancreatic mass Upper abdominal pain Erosive esophagitis Abdominal pain Sleep difficulties Vomiting LEE (dyspnea on exertion) Arthritis Occipital neuralgia of left side New onset headache Diverticulosis of colon Chronic, continuous use of opioids Chronic GERD Palpitations Hypotension History of palpitations Dysphagia Disc degeneration, lumbar Spondylosis of lumbar spine Depression Past heart attack Hyperlipemia Erosive osteoarthritis of hands, bilateral GERD (gastroesophageal reflux disease) Hypertension Family History Mother Hypertension Breast cancer Maternal Grandmother Myocardial infarct Skin cancer Sister Heart problem Breast cancer Family/Other Esophageal cancer Surgical History History of cholecystectomy Hx of colonoscopy History of esophagogastroduodenoscopy (EGD) H/O bilateral mastectomy H/O: hysterectomy Social History Household Members: None Housing: Apartment Are you a primary careers adviser to a significant other at home: No Do you presently have visiting nurse or other home services: No Alcohol intake: never Patient Tobacco Use Status: Former Tobacco user Smoked in Last 30 Days: No Second Hand Smoke Exposure: No Use of substances other than those prescribed or required for medical reasons: No Substance Use Type: Marijuana Advance Directives: No Advance Directives Information Provided: Yes Patient : No service: No Meds Allergies Allergy/AdvReac Type Severity Reaction Status Date / Time black pepper Allergy Severe Anaphylaxis Verified 04/22/25 08:17 Penicillins (PENICILLINS) Allergy Intermediate LEILANISWELL Verified 04/22/25 08:17 ING sumatriptan (SUMATRIPTAN) AdvReac Severe PT STATES Verified 04/22/25 08:17 HEART ATTACK berries Allergy Unknown Anaphylaxis Uncoded 03/30/25 15:02 Active Medications: Current Medications Sodium Chloride (0.9 % Sodium Chloride Flush 3 Ml Syringe) 3 ml IVFLUSH [facility] Home Medications ?Medication ?Instructions ?Recorded ?Confirmed ?Last Taken ?Type bisacodyl 5 mg tablet,delayed 10 mg PO BEDTIME PRN Constipation 03/22/25 04/14/25 2 Days Ago History release (Dulcolax (bisacodyl)) ~03/20/25 lidocaine 5 % topical ointment 1 appl topical BID PRN port a cath 03/22/25 04/14/25 Unknown History lorazepam 0.5 mg tablet 0.5 mg PO BEDTIME PRN anxiety 03/22/25 04/14/25 2 Days Ago History ~03/20/25 Physical Exam Vital Signs and Narrative: Vital Signs: Last Vital Signs Temp 97.7 F 04/22/25 08:15 Pulse 98 04/22/25 11:01 Resp 16 04/22/25 11:01 BP 100/65 04/22/25 11:01 Pulse Ox 95 04/22/25 11:01 O2 Del Method Room Air 04/22/25 11:01 BMI result Body Mass Index 15.2 Const: Other: Cachectic, chronically ill-appearing General: alert and awake Chest: Other: left side port Resp: Effort & Inspection: normal respiratory effort, able to speak in complete sentences, no respiratory distress and no use of accessory muscles Cardio: Rate: tachycardic GI: Other: non-distended; +BS; reported lower abdominal tenderness Palpation (GI): Soft to palpation Neuro: Other: grossly nonfocal Extrem: General: No pedal edema Results Labs 04/22/25 08:26 04/22/25 08:26 Labs: Laboratory Results - last 24 hr 04/22/25 04/22/25 08:26 11:09 MCV 84.9 MCH 29.4 MCHC 34.6 RDW 14.7 Plt Count 270 MPV 8.8 L Immature Gran % (Auto) Cancelled Neut % (Auto) Cancelled Lymph % (Auto) Cancelled [place] % (Auto) Cancelled Eos % (Auto) Cancelled Baso % (Auto) Cancelled Lymph # (Auto) Cancelled [place] # (Auto) Cancelled Eos # (Auto) Cancelled Baso # (Auto) Cancelled Abs Immat Gran (auto) Cancelled Absolute Neuts (auto) Cancelled Absolute Nucleated RBC 0.000 Nucleated RBC % (auto) 0.0 Neutrophils % (Manual) 31 L Band Neutrophils % 15 H Lymphocytes % (Manual) 32 Monocytes % (Manual) 19 H Basophils % (Manual) 1 Metamyelocytes % 1 Myelocytes % 1 Abs Neuts (Manual) 2.9 Lymphocytes # (Manual) 2.0 Monocytes # (Manual) 1.2 Basophils # (Manual) 0.1 Metamyelocytes # 0.1 Myelocytes # 0.1 Platelet Estimate NORMAL Large Platelets PRESENT Plt Morphology Comment NOTE RBC Morphology NORMAL Polychromasia 1+ (0-2) Ovalocytes 1+ (5-14) [place] Bodies PRESENT [place] Cells 2+ (3-5) Anion Gap 13 Estim Creat Clear Calc 51.2 Estimated GFR > 60 Random Glucose 175 H Lactic Acid 3.0 H* Lactic Acid F/U @ 2Hr 1.0 Calcium 9.3 Magnesium 2.2 Total Bilirubin 0.6 AST 48 H ALT 47 H Alkaline Phosphatase 104 Total Protein 7.7 Albumin 4.3 Lipase 18 Imaging Radiologist's Impressions: Impressions Chest X-Ray 04/22/25 08:32 IMPRESSION: COPD emphysematous type changes and prior granulomatous disease. No acute airspace disease. Electronically signed by: Eric Daley MD 04/22/2025 08:42 AM EST RP Abdomen/Pelvis CT 04/22/25 09:15 IMPRESSION: Inherently limited examination without IV contrast. 1. There is diffuse dilatation of the entire colon, with the transverse colon measuring up to 5.9 cm in diameter. There is wall thickening of the colon beginning at the splenic flexure and extending throughout the rectum consistent with segmental colitis. This is either infectious or inflammatory in nature. Ischemic is considered less likely. There is no pneumatosis present. There is semisolid stool seen throughout the dilated colon. 2. The small bowel is normal in caliber and course without dilatation. 3. Redemonstration of an approximate 2.5 cm mass within the uncinate process of the pancreas. This is poorly evaluated without contrast although grossly stable. No definitive distant metastasis present on this limited noncontrast examination. There is mild biliary and pancreatic ductal dilatation, similar. 4. Several ancillary findings as discussed in the body of the report, stable from prior examinations. Electronically signed by: Micah Hastings MD 04/22/2025 10:12 AM EST RP Assessment and Plan (1) Colitis: Status: Acute Plan This is a 55-year-old transgender male with history of pancreatic adenocarcinoma currently receiving neoadjuvant chemotherapy, hypertension, hyperlipidemia, GERD, esophageal and pyloric stenosis, recent admission for abdominal pain due to constipation who presents to the emergency department with persistent abdominal pain, vomiting, decreased oral intake found to have colitis Severe Sepsis due to acute colitis elevated Lactic acid colitis infectious vs inflammatory. ischemia less likely check stool studies, GI panel and cdif empiric ceftriaxone, flagyl GI consult trend LA bp soft, pt reports chronic, upon review of chart does appear low on previous admission as well IVF significant colon distention due to above colitis vs persistent constipation abdominal exam benign, no distention GI consult as above Moderate protein calorie malnutrition due to pancreatic adenocarcinoma ongoing nausea/vomiting with decreased PO intake Currently on neoadjuvant therapy Following with oncology DVT ppx - lovenox med rec pending at the time of admission patient will likely require two midnight stay in the hospital for management of colitis requiring IV antibiotics and specialist evaluation in a patient with immune compromise with active cancer undergoing chemotherapy Quality Stroke Does the patient have a stroke diagnosis?: No VTE Prior VTE?: No VTE Risk Level:: Medical - moderate - high VTE Device Contraindication: N/A - Device Ordered VTE Drug Contraindication: N/A - Med Ordered
[2025-04-22] MEDS: Lactated Ringers 1,000 ML 100 ML IVCONT (12:32)
--- NOTE | 2025-04-22 12:57 | PM.GICN ---
History of Present Illness Data of Consult Service Date: 04/22/25 Requesting physician: Emilie Kebede Primary Care Provider: Emilie Davis MD HPI Reason for consult: Abdominal pain, constipation, ? colitis 55-year-old transgender male with pancreatic cancer undergoing chemotherapy seen at [facility] ED on 04/22/25 with abdominal pain. Hx obtained with the help of an [facility] Maltese speech and language tutor, Shannan. Patient had an abdominal MRI in January 2025 for acute pancreatitis which revealed a hypo-enhancing solid mass concerning for malignancy. He underwent endoscopic ultrasound with biopsy of the mass at [facility] on February 18 and was diagnosed with pancreatic adenocarcinoma and was started on neoadjuvant chemotherapy. The last dose of chemotherapy was April 12. He was admitted from 04/14 to 04/16 for abdominal pain due to constipation, and pre-syncope due to dehydration. Pt was treated with stool softeners and enema and had BM with improvement in symptoms. He returned to the ED on 04/22/25 with ongoing bilateral epigastric and lower abdominal pain. Nausea and vomiting has been present intermittently since starting chemotherapy. Pt reports constipation with hard stools for a week. He was started on Linzess and Miralax once a day and has been drinking prune juice and is having daily stools which range from liquid to soft. Pt reports chills and denies fever, no recent travel, take out food or recent sick contacts. Persistent decreased oral intake. In the ED, lipase was low, there was no fever or leukocytosis. Lactic acid was 3.0. Pt was treated with empiric antibiotics, pain medication and admitted for further management. 04/22/[address] SCAN SHOWED: 1. There is diffuse dilatation of the entire colon, with the transverse colon measuring up to 5.9 cm in diameter. There is wall thickening of the colon beginning at the splenic flexure and extending throughout the rectum consistent with segmental colitis. This is either infectious or inflammatory in nature. Ischemic is considered less likely. There is no pneumatosis present. There is semisolid stool seen throughout the dilated colon. 2. The small bowel is normal in caliber and course without dilatation. 3. Redemonstration of an approximate 2.5 cm mass within the uncinate process of the pancreas. This is poorly evaluated without contrast although grossly stable. No definitive distant metastasis present on this limited noncontrast examination. There is mild biliary and pancreatic ductal dilatation, similar. 4. Several ancillary findings as discussed in the body of the report, stable from prior examinations. Review of Systems Review of Systems: Yes all other systems are reviewed and are negative Constitutional: Constitutional: Reports chills and Denies fever(s) Respiratory: Respiratory: Denies cough Gastrointestinal: Gastrointestinal: Reports abdominal pain, Reports diarrhea, Reports nausea and Reports vomiting PMFSH Past Medical History Medical History Pancreatic adenocarcinoma Elevated LFTs Pancreatic mass Acute pancreatitis Pancreatic mass Upper abdominal pain Erosive esophagitis Abdominal pain Sleep difficulties Vomiting LEE (dyspnea on exertion) Arthritis Occipital neuralgia of left side New onset headache Diverticulosis of colon Chronic, continuous use of opioids Chronic GERD Palpitations Hypotension History of palpitations Dysphagia Disc degeneration, lumbar Spondylosis of lumbar spine Depression Past heart attack Hyperlipemia Erosive osteoarthritis of hands, bilateral GERD (gastroesophageal reflux disease) Hypertension Family History Family History Mother Hypertension Breast cancer Maternal Grandmother Myocardial infarct Skin cancer Sister Heart problem Breast cancer Family/Other Esophageal cancer Surgical History Surgical History History of cholecystectomy Hx of colonoscopy History of esophagogastroduodenoscopy (EGD) H/O bilateral mastectomy H/O: hysterectomy Social History Social History Household Members: Children Housing: Apartment Are you a primary pharmacist critical care to a significant other at home: No Do you presently have visiting nurse or other home services: No Alcohol intake: never Patient Tobacco Use Status: Former Tobacco user Smoked in Last 30 Days: No Second Hand Smoke Exposure: No Use of substances other than those prescribed or required for medical reasons: No Substance Use Type: Marijuana Currently Displaying Signs/Symptoms of Drug Intoxication Withdrawal: No Have you been hit, kicked, punched, or otherwise hurt by someone within the past year? If so, by whom?: No Do you feel safe in your current relationship?: No Current Relationship Is there a partner from a previous relationship who is making you feel unsafe now?: No Are you made to feel afraid or neglected: No Advance Directives: No Advance Directives Information Provided: Yes Do you have a plan to hurt others: No Plan Recently lost weight without trying: No Eating poorly because of decreased appetite: No Nutrition Risks: No Nutritional Risk Patient : No : No Poor oral hygiene: No service: No Meds Allergies Allergy/AdvReac Type Severity Reaction Status Date / Time black pepper Allergy Severe Anaphylaxis Verified 04/22/25 08:17 Penicillins (PENICILLINS) Allergy Intermediate HIVES,SWELL Verified 04/22/25 08:17 ING sumatriptan (SUMATRIPTAN) AdvReac Severe PT STATES Verified 04/22/25 08:17 HEART ATTACK Active Medications: Current Medications Acetaminophen (Acetaminophen 325 Mg Tablet) 650 mg PO Q6H PRN PRN Reason: Pain, Mild 1-3,fever,headache Calcium Carbonate (Calcium Carbonate 750 Mg Tab.Chew) 750 mg PO Q4H PRN PRN Reason: Heartburn Enoxaparin Sodium (Enoxaparin Sodium 40 Mg/0.4 Ml Syringe) 40 mg SUBCUT Q24H [facility] Last Admin: 04/22/25 12:32 Dose: 40 mg Lactated Ringer's (Lr) 1,000 mls @ 100 mls/hr IVCONT .Q10H [facility] Last Admin: 04/22/25 12:32 Dose: 100 mls/hr Metronidazole (Flagyl) 500 mg in 100 mls @ 100 mls/hr IV Q8H [facility] Ceftriaxone Sodium 1 gm/ (Sodium Chloride) 50 mls @ 100 mls/hr IV Q24H [facility] Magnesium Hydroxide (Milk Of Magnesia 30 Ml Oral.Susp) 30 ml PO DAILY PRN PRN Reason: Constipation Melatonin (Melatonin 3 Mg Tablet) 6 mg PO BEDTIME PRN PRN Reason: Insomnia Ondansetron HCl (Ondansetron Hcl 4 Mg/2 Ml Vial) 4 mg IVPUSH Q8H PRN PRN Reason: Nausea and Vomiting Sodium Chloride (0.9 % Sodium Chloride Flush 3 Ml Syringe) 3 ml IVFLUSH QSHIFT [facility] Home Medications ?Medication ?Instructions ?Recorded ?Confirmed ?Last Taken ?Type bisacodyl 5 mg tablet,delayed 10 mg PO BEDTIME PRN Constipation 03/22/25 04/22/25 2 Days Ago History release (Dulcolax (bisacodyl)) last line ~03/20/25 lidocaine 5 % topical ointment 1 appl topical BID PRN port a cath 03/22/25 04/22/25 Unknown History dexamethasone 4 mg tablet 4 mg PO BID PRN days 2 and 3 after 04/22/25 04/22/25 Unknown History chemotherapy linaclotide 290 mcg capsule 290 mcg PO QAM 04/22/25 04/22/25 Unknown History (Linzess) magnesium citrate 15 ml PO DAILY 04/22/25 04/22/25 Unknown History polyethylene glycol 3350 17 17 g PO DAILY 04/22/25 04/22/25 Unknown History gram/dose oral powder (Miralax) quetiapine 50 mg tablet 50 mg PO BEDTIME 04/22/25 04/22/25 Unknown History Physical Exam Vital Signs: Vital Signs: Last Vital Signs Temp 98.1 F 04/22/25 12:23 Pulse 98 04/22/25 12:23 Resp 14 04/22/25 12:23 BP 127/81 04/22/25 12:23 Pulse Ox 95 04/22/25 12:23 O2 Del Method Room Air 04/22/25 12:23 BMI result Body Mass Index 15.2 Const: General: in distress (due to abdominal pain) and ill appearing Nutritional Appearance: underweight Orientation/consciousness: patient oriented x3 HEENT: Head: Yes normal to inspection Ears: hearing grossly normal bilaterally Eyes: Sclerae: sclerae normal Pupils: Equal, round and reactive pupils present Neck: Neck: Yes normal visual inspection Chest: Chest palpation & inspection: normal inspection of the chest Resp: Effort & Inspection: normal respiratory effort Auscultation: clear to auscultation bilaterally Cardio: Palpation: normal PMI Rate: regular rate Rhythm: regular rhythm Heart sounds: S1 normal heart sound present, S2 normal heart sound present and no murmurs GI: Palpation (GI): Soft to palpation, Tenderness to palpation present (GI) (moderate lower abd tenderness) and No hepatosplenomegaly present Auscultation: normal bowel sounds Rectal Exam - Female: deferred Skin: General skin exam: no rashes or lesions noted Neuro: General: patient oriented x3, gait normal and moves all extremities Cranial nerves: Yes Equal, round and reactive pupils present Psych: Appearance: grossly normal Mental Status: mental status grossly normal Results Labs 04/23/25 05:39 04/23/25 05:39 Labs: Short CBC 04/22/25 Range/Units 08:26 WBC 6.3 (4.8-10.8) X10*3/uL Hgb 15.4 D (12.0-16.0) g/dl Hct 44.5 D (37.0-47.0) % Plt Count 270 (160-400) X10*3/uL BMP 04/22/25 08:26 Sodium 135 Potassium 4.4 Chloride 101 Carbon Dioxide 25 BUN 10 Creatinine 0.80 Calcium 9.3 Liver Function 04/22/25 Range/Units 08:26 Total Bilirubin 0.6 (0.0-1.0) mg/dL AST 48 H (5-31) U/L ALT 47 H (0-31) U/L Alkaline Phosphatase 104 (39-117) U/L Albumin 4.3 (3.5-5.0) g/dL Assessment and Plan (1) Chronic constipation: Status: Acute (2) Colitis: Status: Acute Plan 55-year-old transgender male with pancreatic cancer undergoing chemotherapy seen at [facility] ED on 04/22/25 with abdominal pain and hx of constipation. He was admitted from 04/14 to 04/16 for abdominal pain due to constipation, and pre-syncope due to dehydration. Abd CT scan showed diffuse dilation of the entire colon with transverse colon measuring 5.9 cm and wall thickening beginning at the splenic flexure and extending throughout the rectum. Abd pain is likely due to infectious or ischemic colitis RECOMMENDATIONS: 1. Agree with IVF, pain medications and IV antibiotics 2. Await results of stool studies 3. If stool studies are negative and symptoms do not improve, pt can be scheduled for a flexible sigmoidoscopy for further evaluation Procedures Date of Service Date of Service: 04/24/25
--- NOTE | 2025-04-22 14:27 | HO.NURTONUR ---
55 year old male to female patient presented to ED for concerns of diarrhea, nausea and emesis. Pt has pancreatic cancer, port in place currently not accessed. Pt awake and alert, breathing equal and unlabored. PIV in place to left AC. IVF infusing. Admit for pain control and antibiotics.
[2025-04-22 14:33] LABS: CDiff Gene PCR NEGATIVE (Negative)
--- NOTE | 2025-04-22 15:04 | PHA.MEDREC ---
Pharmacy Consult ? Medication Reconciliation Pharmacy has completed the medication reconciliation. Spoke with patient through an certified physician assistant. She is not on any antibiotics. Dexamethasone is as needed for days 2 and 3 after chemotherapy. She is still taking Linzess once daily (LF 01/08/25 x30DS). She takes magnesium citrate solution, 1 tablespoon daily. She only uses bisacodyl as needed last line for constipation because it hurts her stomach. She last had vitamin D 1250 mcg in February, has not taken it since then. She also last had Apretude 600 mg ER IM injection in January and is no longer taking it. Patient is not taking lorazepam, trazodone, famotidine, and creon.
[2025-04-22 15:28] LABS: E. coli EAEC Not Detected (Not Detect.); E. coli EPEC Not Detected (Not Detect.); E. coli ETEC Not Detected (Not Detect.); E. coli STEC Not Detected (Not Detect.); Shigella sp./EIEC Not Detected (Not Detect.)
[2025-04-22] MEDS: oxyCODONE HCl Immed Release 5 MG TABLET 10 MG PO (17:19)
[2025-04-23] MEDS: Lactated Ringers 1,000 ML 100 ML IVCONT ×3 (02:19→23:18)
[2025-04-23] MEDS: metroNIDAZOLE/NS 500 MG/100 ML PIGGYBACK 100 MG IV ×3 (02:22→18:08)
[2025-04-23 03:41] VITALS: BP 148/64; PULSE 90; RESP 18; TEMP 36.4; O2SAT 94
[2025-04-23 06:02] LABS: Hematocrit 33.0 % (37.0-47.0); Hemoglobin 11.2 g/dl (12.0-16.0); Mean Corpuscular HGB Conc 33.9 g/dl (31.0-35.0); Mean Corpuscular Hemoglobin 29.2 pg (27.0-33.0); Mean Corpuscular Volume 86.2 fL (80.0-98.0); NRBC Abs Auto 0.000 X10*3/uL (0.0-0.012); NRBC Pct Auto 0.0 /100WBC (0.0-0.2); Platelet Count 194 X10*3/uL (160-400); Red Blood Count 3.83 X10*6/uL (4.20-5.50)
[2025-04-23 06:08] LABS: WBC ABN SCTR FOR CBC 1
[2025-04-23 06:22] LABS: Anion Gap 12 (12-20); Blood Urea Nitrogen 6 mg/dL (9-16); Calcium 8.3 mg/dL (8.4-10.2); Carbon Dioxide 24 mmol/L (22-29); Chloride 106 mmol/L (96-108); Creatinine Clr Calc Pharmacy 73.4; Estimated Glomerular Filt Rate > 60; Potassium 3.5 mmol/L (3.3-5.1); Sodium 138 mmol/L (135-145)
[2025-04-23 06:41] LABS: Atypical Lymphs Percent Manual 2 % (0-6); Band Neutrophils Percent 21 % (3-5); Eosinophils Percent Manual 1 % (0-4); Lymphocytes Percent Manual 54 % (20-40); Monocytes Percent Manual 11 % (2-11); Neutrophils Percent Manual 11 % (45-73)
[2025-04-23 06:44] LABS: RBC Morphology NOTED
[2025-04-23 06:45] LABS: Burr Cells 2+ (3-5) /OIF; Large Platelet PRESENT
[2025-04-23 06:54] LABS: Atypical Lymph Absolute Manual 0.1 x10*3/uL; Lymphocytes Absolute Manual 2.1 X10*3/uL (1.2-4.9); Monocytes Absolute Manual 0.4 X10*3/uL (0.1-1.2); Neutrophils Absolute Manual 1.2 X10*3/uL (2.0-8.3); White Blood Count 3.8 X10*3/uL (4.8-10.8)
[2025-04-23 07:52] VITALS: BP 95/67; PULSE 96; RESP 18; TEMP 37; O2SAT 95
--- NOTE | 2025-04-23 10:23 | P.PNIM_ITS ---
Subjective Subjective Date of Service: 04/23/25 Interval History: report singificant abdominal pain no nausea or vomitting, no bm Physical Exam 2 Exam: Exam: General: AO X 3, ill-appearing, frail, cachectic Resp: CTA bilateral, no accessory muscles used CVS: S1,S2,RRR GI: soft, tender, non distended Neuro: motor grossly intact, alert Psych: appropriate affect, appropriate insight Vital Signs: Vital Signs: Last Vital Signs Temp 98.6 F 04/23/25 07:52 Pulse 96 04/23/25 07:52 Resp 18 04/23/25 07:52 BP 95/67 04/23/25 07:52 Pulse Ox 95 04/23/25 07:52 O2 Del Method Room Air 04/23/25 07:52 BMI result Body Mass Index 16.6 Objective Data Active Medications Acetaminophen (Acetaminophen 325 Mg Tablet) 650 mg PO Q6H PRN PRN Reason: Pain, Mild 1-3,fever,headache Bisacodyl (Bisacodyl 5 Mg Tablet.Dr) 10 mg PO BEDTIME PRN PRN Reason: Constipation last line Calcium Carbonate (Calcium Carbonate 750 Mg Tab.Chew) 750 mg PO Q4H PRN PRN Reason: Heartburn Enoxaparin Sodium (Enoxaparin Sodium 40 Mg/0.4 Ml Syringe) 40 mg SUBCUT Q24H [facility] Last Admin: 04/22/25 12:32 Dose: 40 mg Documented By: ROBERT Lactated Ringer's (Lr) 1,000 mls @ 100 mls/hr IVCONT .Q10H [facility] Last Admin: 04/23/25 07:33 Dose: Not Given Documented By: PASQUALE Non-Admin Reason: IV Running Metronidazole (Flagyl) 500 mg in 100 mls @ 100 mls/hr IV Q8H [facility] Last Infusion: 04/23/25 03:24 Dose: Infused Documented By: PATRICIO Ceftriaxone Sodium 1 gm/ (Sodium Chloride) 50 mls @ 100 mls/hr IV Q24H [facility] Lidocaine (Lidocaine 5 % Ointment 35 Gm) 1 appl TOPICAL BID PRN; Protocol PRN Reason: port a cath Magnesium Citrate (Magnesium Citrate 300 Ml Solution) 15 ml PO DAILY [facility] Magnesium Hydroxide (Milk Of Magnesia 30 Ml Oral.Susp) 30 ml PO DAILY PRN PRN Reason: Constipation Melatonin (Melatonin 3 Mg Tablet) 6 mg PO BEDTIME PRN PRN Reason: Insomnia Non-Formulary Medication (Linaclotide [Linzess]) 290 mcg PO QAM [facility] Ondansetron HCl (Ondansetron Hcl 4 Mg/2 Ml Vial) 4 mg IVPUSH Q8H PRN PRN Reason: Nausea and Vomiting Last Admin: 04/22/25 17:19 Dose: 4 mg Documented By: CAROLINA Oxycodone HCl (Oxycodone Hcl Immed Release 5 Mg Tablet) 10 mg PO Q6H PRN PRN Reason: Pain (Scale Score 7-10) Last Admin: 04/22/25 17:19 Dose: 10 mg Documented By: CAROLINA Polyethylene Glycol (Polyethylene Glycol 3350 17 Gm Powd.Pack) 17 gm PO DAILY [facility] Last Admin: 04/23/25 07:29 Dose: 17 gm Documented By: PASQUALE Quetiapine Fumarate (Quetiapine Fumarate 50 Mg Tablet) 50 mg PO BEDTIME [facility] Last Admin: 04/22/25 21:18 Dose: 50 mg Documented By: PATRICIO Sodium Chloride (0.9 % Sodium Chloride Flush 3 Ml Syringe) 3 ml IVFLUSH QSHIFT [facility] Last Admin: 04/23/25 07:28 Dose: Not Given Documented By: PASQUALE Non-Admin Reason: IV Running Labs 04/23/25 05:39 04/23/25 05:39 Labs: Laboratory Results - last 24 hr 04/22/25 04/22/25 04/23/25 11:09 13:16 05:39 MCV 86.2 MCH 29.2 MCHC 33.9 RDW 14.9 Plt Count 194 D MPV 9.0 L Immature Gran % (Auto) Cancelled Neut % (Auto) Cancelled Lymph % (Auto) Cancelled Cavalier % (Auto) Cancelled Eos % (Auto) Cancelled Baso % (Auto) Cancelled Lymph # (Auto) Cancelled Cavalier # (Auto) Cancelled Eos # (Auto) Cancelled Baso # (Auto) Cancelled Abs Immat Gran (auto) Cancelled Absolute Neuts (auto) Cancelled Absolute Nucleated RBC 0.000 Nucleated RBC % (auto) 0.0 Neutrophils % (Manual) 11 L Band Neutrophils % 21 H Lymphocytes % (Manual) 54 H Atypical Lymphs % (Man) 2 Monocytes % (Manual) 11 Eosinophils % (Manual) 1 Abs Neuts (Manual) 1.2 L Lymphocytes # (Manual) 2.1 Atyp Lymphs # (Manual) 0.1 Monocytes # (Manual) 0.4 Platelet Estimate NORMAL Large Platelets PRESENT Plt Morphology Comment NOTED RBC Morphology NOTED Sheeba Cells 2+ (3-5) Anion Gap 12 Estim Creat Clear Calc 73.4 Estimated GFR > 60 Random Glucose 88 Lactic Acid F/U @ 2Hr 1.0 Calcium 8.3 L D Stl C. cayetanensis PCR Not Detected Stool Rotavirus A PCR Not Detected Stl Adenov F 40/41 PCR Not Detected Stool Astrovirus (PCR) Not Detected Stool Campylobacter PCR Not Detected Stool Cryptosporidium PCR Not Detected Stl Sh Tox Pr E STEC PCR Not Detected Stool E coli O157 PCR Not applicable Stl Enterotoxigenic E PCR Not Detected Stool EPEC (PCR) Not Detected Stool EAEC (PCR) Not Detected Stl E. histolytica PCR Not Detected Stool Giardia Lamblia PCR Not Detected Stl P. shigelloides PCR Not Detected Stool Salmonella PCR Not Detected Stool Sapovirus (PCR) Not Detected Stl Shigella/EIEC PCR Not Detected St Y.enterocolitica PCR Not Detected Stool Vibrio (PCR) Not Detected Stl Vibrio cholerae PCR Not Detected Stl Norovirus GI/GII PCR Not Detected C. difficile Tox B Gene NEGATIVE Assessment and Plan (1) Colitis: Status: Acute Plan 55-year-old transgender male with history of pancreatic adenocarcinoma currently receiving neoadjuvant chemotherapy, hypertension, hyperlipidemia, GERD, esophageal and pyloric stenosis, recent admission for abdominal pain due to constipation who presents to the emergency department with persistent abdominal pain, vomiting, decreased oral intake found to have colitis Severe Sepsis due to acute colitis elevated Lactic acid colitis infectious vs inflammatory. ischemia less likely check stool studies, GI panel and cdif empiric ceftriaxone, flagyl GI consult trend LA bp soft, pt reports chronic, upon review of chart does appear low on previous admission as well IVF significant colon distention due to above colitis vs persistent constipation abdominal exam benign, no distention GI conduly, may need sigmoidoscopy Moderate protein calorie malnutrition due to pancreatic adenocarcinoma ongoing nausea/vomiting with decreased PO intake Currently on neoadjuvant therapy Following with oncology DVT ppx - lovenox med rec pending at the time of admission ongoing care for colitis in an immunosupressive pt with markedly distended colitis Quality Stroke Does the patient have a stroke diagnosis?: No VTE Prior VTE?: No VTE Risk Level:: Medical - moderate - high VTE Device Contraindication: N/A - Device Ordered VTE Drug Contraindication: N/A - Med Ordered
[2025-04-23 10:25] VITALS: BMI 16.6
--- NOTE | 2025-04-23 11:10 | MHC.CLN ---
NUTRITION DIET RX: CLEAR LIQUIDS. FOOD DISLIKES/INTOLERANCES KNOWN FROM PRIOR ADM. WAGGONER ALLERGY NOTED. DO NOT GIVE ENSURE CLEAR DUE TO ALLERGY/INTOLERANCE. WHEN ABLE TO ADVANCE DIET, RECOMMEND ENSURE TID TO PROVIDE 1050 KCALS, 60 G PROTEIN. QUALIFIES MODERATELY MALNOURISHED IN THE CONTEXT OF CHRONIC ILLNESS. SIGNIFICANT WEIGHT LOSS X 6 MONTHS -12.7%. RECENT DECREASED PO INTAKE DUE TO NAUSEA AND VOMITING. FOLLOW FOR DIET ADVANCEMENT AND PO INTAKE. SEE CLINICAL NUTRITION ASSESSMENT 04/23/25.
--- NOTE | 2025-04-23 14:49 | MHC.CM.PN ---
pt lives with family had no previous services has own transport home dc plan home n/s
[2025-04-23 15:49] VITALS: BP 103/66; PULSE 70; RESP 20; TEMP 36.7; O2SAT 98
--- NOTE | 2025-04-23 18:44 | PC.NURSE ---
this nurse removed berries as an allergy- Pt states she has been trying to remove this allergy for months. States that they eat berries all the time and there is no allergy.
--- NOTE | 2025-04-23 19:20 | PC.NURSE ---
upon assuming care of pt, pt was found to be eating chicken and biscuits brought in by family member. Pt was educated on their clear liquid diet status; however pt said they felt fine and wanted to eat. Pt notified they will be NPO after midnight.
[2025-04-23 19:39] VITALS: BP 111/77; PULSE 86; RESP 15; TEMP 36.5; O2SAT 98
[2025-04-23] MEDS: 0.9 % Sodium Chloride Flush 3 ML SYRINGE IVFLUSH (21:24)
[2025-04-24] MEDS: metroNIDAZOLE/NS 500 MG/100 ML PIGGYBACK 100 MG IV ×3 (02:58→17:57)
[2025-04-24 03:42] VITALS: BP 103/67; PULSE 76; RESP 18; TEMP 36.2; O2SAT 99
[2025-04-24 07:56] VITALS: BP 108/68; PULSE 84; RESP 16; TEMP 36.3; O2SAT 98
[2025-04-24] MEDS: Lactated Ringers 1,000 ML 100 ML IVCONT ×2 (10:15→20:06)
[2025-04-24 15:21] VITALS: BP 102/62; PULSE 71; RESP 18; TEMP 36.2; O2SAT 98
--- NOTE | 2025-04-24 17:31 | P.PNIM_ITS ---
Subjective Subjective Date of Service: 04/24/25 Interval History: Seen in follow up for abd pain, colitis Interval history: Feeling slightly better. Attempted to advance diet and experienced vomiting/ GI following Review of Systems Review of Systems: Yes all other systems are reviewed and are negative Physical Exam 2 Exam: Exam: EXAM: Constitutional - Awake and Alert, No apparent distress Eyes - PERRL Cardiovascular - S1S2, RRR, No edema Respiratory - Normal lung expansion, Normal respiratory effort, No respiratory distress, CTA bilaterally Abd- soft, diffuse ttp, BSx5 Extremities - no calf tenderness bilaterally, no swelling Skin - Warm/Dry Neurological - Alert & oriented x3 Psychological - Appropriate affect Vital Signs: Vital Signs: Last Vital Signs Temp 97.2 F 04/24/25 15:21 Pulse 71 04/24/25 15:21 Resp 18 04/24/25 15:21 BP 102/62 04/24/25 15:21 Pulse Ox 98 04/24/25 15:21 O2 Del Method Room Air 04/24/25 15:21 BMI result Body Mass Index 16.6 Objective Data Active Medications Acetaminophen (Acetaminophen 325 Mg Tablet) 650 mg PO Q6H PRN PRN Reason: Pain, Mild 1-3,fever,headache Bisacodyl (Bisacodyl 5 Mg Tablet.Dr) 10 mg PO BEDTIME PRN PRN Reason: Constipation last line Calcium Carbonate (Calcium Carbonate 750 Mg Tab.Chew) 750 mg PO Q4H PRN PRN Reason: Heartburn Enoxaparin Sodium (Enoxaparin Sodium 40 Mg/0.4 Ml Syringe) 40 mg SUBCUT Q24H [facility] Last Admin: 04/24/25 12:12 Dose: 40 mg Documented By: FABY Metronidazole (Flagyl) 500 mg in 100 mls @ 100 mls/hr IV Q8H [facility] Last Infusion: 04/24/25 11:29 Dose: Infused Documented By: FABY Ceftriaxone Sodium 1 gm/ (Sodium Chloride) 50 mls @ 100 mls/hr IV Q24H [facility] Last Infusion: 04/24/25 12:39 Dose: Infused Documented By: FABY Lactated Ringer's (Lr) 1,000 mls @ 100 mls/hr IVCONT .Q10H [facility] Last Admin: 04/24/25 14:29 Dose: Not Given Documented By: FABY Non-Admin Reason: IV Running Lidocaine (Lidocaine 5 % Ointment 35 Gm) 1 appl TOPICAL BID PRN; Protocol PRN Reason: port a cath Magnesium Citrate (Magnesium Citrate 300 Ml Solution) 15 ml PO DAILY [facility] Last Admin: 04/24/25 09:26 Dose: 15 ml Documented By: FABY Magnesium Hydroxide (Milk Of Magnesia 30 Ml Oral.Susp) 30 ml PO DAILY PRN PRN Reason: Constipation Melatonin (Melatonin 3 Mg Tablet) 6 mg PO BEDTIME PRN PRN Reason: Insomnia Morphine Sulfate (Morphine Sulfate 4 Mg/Ml Cartridge) 2 mg IVPUSH Q4H PRN; Protocol PRN Reason: Pain, Severe (Pain Scale 7-10) Last Admin: 04/23/25 21:24 Dose: 2 mg Documented By: CYRUS Non-Formulary Medication (Linaclotide [Linzess]) 290 mcg PO QAM [facility] Ondansetron HCl (Ondansetron Hcl 4 Mg/2 Ml Vial) 4 mg IVPUSH Q8H PRN PRN Reason: Nausea and Vomiting Last Admin: 04/24/25 13:22 Dose: 4 mg Documented By: FABY Oxycodone HCl (Oxycodone Hcl Immed Release 5 Mg Tablet) 10 mg PO Q6H PRN PRN Reason: Pain, Moderate(Pain Scale 4-6) Last Admin: 04/22/25 17:19 Dose: 10 mg Documented By: CAROLINA Polyethylene Glycol (Polyethylene Glycol 3350 17 Gm Powd.Pack) 17 gm PO DAILY [facility] Last Admin: 04/24/25 09:26 Dose: 17 gm Documented By: FABY Quetiapine Fumarate (Quetiapine Fumarate 50 Mg Tablet) 50 mg PO BEDTIME [facility] Last Admin: 04/23/25 22:26 Dose: Not Given Documented By: CYRUS Non-Admin Reason: Nausea Sodium Chloride (0.9 % Sodium Chloride Flush 3 Ml Syringe) 3 ml IVFLUSH QSHIFT [facility] Last Admin: 04/24/25 12:14 Dose: Not Given Documented By: FABY Non-Admin Reason: IV Running Labs 04/23/25 05:39 04/23/25 05:39 Microbiology Microbiology Results: Microbiology 04/22/25 10:27 Blood Culture - Preliminary Blood - Venous No growth after 48 hours. 04/22/25 09:57 Blood Culture - Preliminary Blood - Venous No growth after 48 hours. Assessment and Plan (1) Colitis: Status: Acute Plan 55-year-old transgender male with history of pancreatic adenocarcinoma currently receiving neoadjuvant chemotherapy, hypertension, hyperlipidemia, GERD, esophageal and pyloric stenosis, recent admission for abdominal pain due to constipation who presents to the emergency department with persistent abdominal pain, vomiting, decreased oral intake found to have colitis Severe Sepsis due to acute colitis elevated Lactic acid colitis infectious vs inflammatory. ischemia less likely check stool studies, GI panel and cdif empiric ceftriaxone, flagyl GI consult trend LA bp soft, pt reports chronic, upon review of chart does appear low on previous admission as well IVF Gi following. Unable to tolerate diet advancement, downgraded back to NPO significant colon distention due to above colitis vs persistent constipation abdominal exam benign, no distention GI conduly, may need sigmoidoscopy Moderate protein calorie malnutrition due to pancreatic adenocarcinoma ongoing nausea/vomiting with decreased PO intake Currently on neoadjuvant therapy Following with oncology DVT ppx - lovenox med rec pending at the time of admission ongoing care for colitis in an immunosupressive pt with markedly distended colitis Quality Stroke Does the patient have a stroke diagnosis?: No VTE Prior VTE?: No VTE Risk Level:: Medical - moderate - high VTE Device Contraindication: N/A - Device Ordered VTE Drug Contraindication: N/A - Med Ordered
[2025-04-24 19:52] VITALS: BP 103/60; PULSE 90; RESP 18; TEMP 36.4; O2SAT 99
[2025-04-25 02:39] VITALS: BP 117/71; PULSE 67; RESP 18; TEMP 36.4; O2SAT 97
[2025-04-25] MEDS: metroNIDAZOLE/NS 500 MG/100 ML PIGGYBACK 100 MG IV ×2 (02:45→11:59)
[2025-04-25 05:54] LABS: Hematocrit 32.0 % (37.0-47.0); Hemoglobin 10.7 g/dl (12.0-16.0); Imm Gran Abs Auto 0.00 X10*3/uL (0.00-0.03); Imm Gran Pct Auto 0.0 % (0.0-0.4); Lymphocytes Absolute Auto 1.8 X10*3/uL (1.2-4.9); MANUAL DIFF FLAG SCAN; Mean Corpuscular HGB Conc 33.4 g/dl (31.0-35.0); Mean Corpuscular Hemoglobin 29.2 pg (27.0-33.0); Mean Corpuscular Volume 87.2 fL (80.0-98.0); NRBC Abs Auto 0.000 X10*3/uL (0.0-0.012); NRBC Pct Auto 0.0 /100WBC (0.0-0.2); Platelet Count 225 X10*3/uL (160-400); Red Blood Count 3.67 X10*6/uL (4.20-5.50); SCAN SMEAR FLAG 1; White Blood Count 3.1 X10*3/uL (4.8-10.8)
[2025-04-25 06:38] LABS: Anion Gap 17 (12-20); Blood Urea Nitrogen 7 mg/dL (9-16); Calcium 8.3 mg/dL (8.4-10.2); Carbon Dioxide 21 mmol/L (22-29); Chloride 106 mmol/L (96-108); Creatinine Clr Calc Pharmacy 78.6; Estimated Glomerular Filt Rate > 60; Magnesium 1.7 mg/dL (1.6-2.6); Potassium 3.4 mmol/L (3.3-5.1); Sodium 141 mmol/L (135-145)
--- NOTE | 2025-04-25 06:42 | PM.EVENT ---
Event Note Date of Service: 04/25/25 Event Note: [place] alert., BG 51, pt asymptomatic, POC stat, Dextrose 25 gms X1, continue POC Q15 min until > 120. D5 LR ordered 100 mls per hour. Pt is currently NPO. Time Spent With Patient Time: Total time managing care of this patient today ____ minutes.
[2025-04-25] MEDS: Dextrose 5 % and Lactated Ring 1,000 ML 100 ML IVCONT ×2 (06:43→15:31)
[2025-04-25 06:47] LABS: Glucose, Whole Blood 48 mg/dL (60-115)
[2025-04-25 07:12] LABS: Glucose, Whole Blood 212 mg/dL (60-115)
[2025-04-25 07:24] VITALS: BP 104/65; PULSE 65; RESP 14; TEMP 36.3; O2SAT 97
--- NOTE | 2025-04-25 08:36 | PC.NURSE ---
science interpreter [place] utilized for assessment with patient. Patient reported having a large amount of diarrhea yesterday, holding bowel medications this morning. Patient also reported feeling very weak and wants to try to have some food, patient denies nausea/vomitting or abdominal discomfort, will reach out to provider to discuss diet. Patient encouraged to ambulate in room and in hallway today to help with gas promotion and bowel motility, patient educated to utilize call button and staff to assist with ambulation since patient is reported weakness, patient verbalized understanding.
[2025-04-25 12:04] LABS: Glucose, Whole Blood 108 mg/dL (60-115)
--- NOTE | 2025-04-25 13:03 | HO.PM.IMPN ---
Subjective Subjective Date of Service: 04/25/25 Interval History: Follow up for pt with intractable N/V/upper abdominal pain Last night became hypoglycemic as they were still NPO; placed on D5 LR Today pt reports he is feeling better and would like to trial advancing diet Denies N/V/abdominal pain Reports feels very weak, though has been up and out of bed and walking in his room Review of Systems Review of Systems: Yes all other systems are reviewed and are negative Physical Exam Exam: Exam: General: AOx3, no acute distress. Appears weak, slightly cachectic Resp: CTA bilaterally CVS: S1, S2, RRR GI: +BS, NT, no distention Skin: Warm, dry Neuro: Cranial nerves II-XII grossly intact bilaterally. Motor grossly intact bilaterally Extremities: No edema Psych: Appropriate affect Vital Signs: Vital Signs: Last Vital Signs Temp 97.3 F 04/25/25 07:24 Pulse 65 04/25/25 07:24 Resp 14 04/25/25 07:24 BP 104/65 04/25/25 07:24 Pulse Ox 97 04/25/25 07:24 O2 Del Method Room Air 04/25/25 07:24 BMI result Body Mass Index 16.6 Objective Data Active Medications Acetaminophen (Acetaminophen 325 Mg Tablet) 650 mg PO Q6H PRN PRN Reason: Pain, Mild 1-3,fever,headache Bisacodyl (Bisacodyl 5 Mg Tablet.Dr) 10 mg PO BEDTIME PRN PRN Reason: Constipation last line Calcium Carbonate (Calcium Carbonate 750 Mg Tab.Chew) 750 mg PO Q4H PRN PRN Reason: Heartburn Enoxaparin Sodium (Enoxaparin Sodium 40 Mg/0.4 Ml Syringe) 40 mg SUBCUT Q24H [facility] Last Admin: 04/24/25 12:12 Dose: 40 mg Documented By: FABY Metronidazole (Flagyl) 500 mg in 100 mls @ 100 mls/hr IV Q8H [facility] Last Admin: 04/25/25 11:59 Dose: 100 mls/hr Documented By: COLBURRyan Ceftriaxone Sodium 1 gm/ (Sodium Chloride) 50 mls @ 100 mls/hr IV Q24H [facility] Last Infusion: 04/24/25 12:39 Dose: Infused Documented By: FABY Dextrose/Lactated Ringer's (D5lr) 1,000 mls @ 100 mls/hr IVCONT .Q10H [facility] Last Admin: 04/25/25 06:43 Dose: 100 mls/hr Documented By: SHERRIE Lidocaine (Lidocaine 5 % Ointment 35 Gm) 1 appl TOPICAL BID PRN; Protocol PRN Reason: port a cath Magnesium Citrate (Magnesium Citrate 300 Ml Solution) 15 ml PO DAILY [facility] Last Admin: 04/25/25 08:39 Dose: Not Given Documented By: GURINDER Non-Admin Reason: Patient Refused Comments: patient reported diarrhea Magnesium Hydroxide (Milk Of Magnesia 30 Ml Oral.Susp) 30 ml PO DAILY PRN PRN Reason: Constipation Melatonin (Melatonin 3 Mg Tablet) 6 mg PO BEDTIME PRN PRN Reason: Insomnia Morphine Sulfate (Morphine Sulfate 4 Mg/Ml Cartridge) 2 mg IVPUSH Q4H PRN; Protocol PRN Reason: Pain, Severe (Pain Scale 7-10) Last Admin: 04/23/25 21:24 Dose: 2 mg Documented By: CYRUS Non-Formulary Medication (Linaclotide [Linzess]) 290 mcg PO QAM [facility] Ondansetron HCl (Ondansetron Hcl 4 Mg/2 Ml Vial) 4 mg IVPUSH Q8H PRN PRN Reason: Nausea and Vomiting Last Admin: 04/24/25 13:22 Dose: 4 mg Documented By: FABY Oxycodone HCl (Oxycodone Hcl Immed Release 5 Mg Tablet) 10 mg PO Q6H PRN PRN Reason: Pain, Moderate(Pain Scale 4-6) Last Admin: 04/22/25 17:19 Dose: 10 mg Documented By: CAROLINA Polyethylene Glycol (Polyethylene Glycol 3350 17 Gm Powd.Pack) 17 gm PO DAILY [facility] Last Admin: 04/25/25 08:39 Dose: Not Given Documented By: GURINDER Non-Admin Reason: Patient Refused Comments: patient reported diarrhea Quetiapine Fumarate (Quetiapine Fumarate 50 Mg Tablet) 50 mg PO BEDTIME [facility] Last Admin: 04/24/25 20:05 Dose: 50 mg Documented By: CYRUS Sodium Chloride (0.9 % Sodium Chloride Flush 3 Ml Syringe) 3 ml IVFLUSH QSHIFT [facility] Last Admin: 04/25/25 08:39 Dose: Not Given Documented By: GURINDER Non-Admin Reason: IV Running Labs 04/25/25 05:08 04/25/25 05:08 Labs: Laboratory Results - last 24 hr 04/25/25 04/25/25 04/25/25 05:08 06:40 07:09 MCV 87.2 MCH 29.2 MCHC 33.4 RDW 14.6 Plt Count 225 MPV 9.1 L Immature Gran % (Auto) 0.0 Neut % (Auto) 25.2 L Lymph % (Auto) 56.9 H [place] % (Auto) 14.7 H Eos % (Auto) 2.6 Baso % (Auto) 0.6 Lymph # (Auto) 1.8 [place] # (Auto) 0.5 Eos # (Auto) 0.1 Baso # (Auto) 0.0 Abs Immat Gran (auto) 0.00 Absolute Neuts (auto) 0.8 L Absolute Nucleated RBC 0.000 Nucleated RBC % (auto) 0.0 Smear Tech's Comments VERIFIED Anion Gap 17 Estim Creat Clear Calc 78.6 Estimated GFR > 60 POC Glucose 48 L* 212 H Random Glucose 51 L* Calcium 8.3 L Magnesium 1.7 04/25/25 12:00 MCV MCH MCHC RDW Plt Count MPV Immature Gran % (Auto) Neut % (Auto) Lymph % (Auto) [place] % (Auto) Eos % (Auto) Baso % (Auto) Lymph # (Auto) [place] # (Auto) Eos # (Auto) Baso # (Auto) Abs Immat Gran (auto) Absolute Neuts (auto) Absolute Nucleated RBC Nucleated RBC % (auto) Smear Tech's Comments Anion Gap Estim Creat Clear Calc Estimated GFR POC Glucose 108 Random Glucose Calcium Magnesium Microbiology Microbiology Results: Microbiology 04/22/25 10:27 Blood Culture - Preliminary Blood - Venous No growth after 48 hours. 04/22/25 09:57 Blood Culture - Preliminary Blood - Venous No growth after 48 hours. Assessment and Plan (1) Colitis: Status: Acute Plan 55-year-old transgender male with history of pancreatic adenocarcinoma currently receiving neoadjuvant chemotherapy, hypertension, hyperlipidemia, GERD, esophageal and pyloric stenosis, recent admission for abdominal pain due to constipation who presents to the emergency department with persistent abdominal pain, vomiting, decreased oral intake found to have colitis Severe Sepsis due to acute colitis Met sepsis criteria on 04/22 with tachycardia, tachypnea, and elevated Lactic acid CT showing colitis infectious vs inflammatory, ischemia less likely GI panel and cdif negative Empiric ceftriaxone, flagyl, started 04/22 GI following bp soft, pt reports chronic, upon review of chart does appear low on previous admission as well Was unable to tolerate diet advancement, downgraded back to NPO on 04/24; will again advance diet today significant colon distention due to above colitis vs persistent constipation abdominal exam benign, no distention GI consulted, may need sigmoidoscopy if no improvement Moderate protein calorie malnutrition due to pancreatic adenocarcinoma ongoing nausea/vomiting with decreased PO intake Currently on neoadjuvant therapy Following with oncology DVT ppx - lovenox Pt requires continued hospitalization ongoing care for colitis in an immunosupressive pt with markedly distended colitis and given recent inability yesterday to advance diet. If pt able to tolerate diet and feeling better, will likely be able to be discharged home tomorrow. Quality Stroke Does the patient have a stroke diagnosis?: No VTE Prior VTE?: No VTE Risk Level:: Medical - moderate - high VTE Device Contraindication: N/A - Device Ordered VTE Drug Contraindication: N/A - Med Ordered
[2025-04-25 14:58] VITALS: BP 146/75; PULSE 67; RESP 18; TEMP 36.2; O2SAT 100
[2025-04-25] MEDS: 0.9 % Sodium Chloride Flush 3 ML SYRINGE IVFLUSH (15:33)
--- NOTE | 2025-04-25 16:07 | PM.HEMONCCN ---
Subjective - Subjective Chief complaint: colitis and panreatic cancer Patient: known to practice within the last 3 years Consult date: 04/25/25 Primary Care Provider: Emilie Davis MD Medical Summary: 55 year old woman with known cancer of the pancreas anilhy discharged April 16, 2025 from [facility] for dehydration after chemotherapy. She is readmitted now with abdominal pain found to have colitis and a dilated colon. 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 Michaels here in by [facility] in [place]. She received his second cycle day 1 of fofirinox In the oncology clinic April 12, 2025. She received fluorouracil 2400 mg/m?, Caroline OT can 180 mg/m?, leucovorin 400 mg/m? and oxaliplatin 85 mg/m? intravenously without complication. The plan is to give her 3 cycles of chemotherapy and then resect the tumor in [place]. She is being treated with curative intent. Imaging done since the admission April 22, 2025 shows dilatation of the colon with evidence of colitis. She has been seen by gastroenterology. The white blood cell count has fallen to 3.1 his platelets are intact. This is day 14 of the cycle so she should be a white cell tenzin. She appears to be medically stable. Review of Systems - Constitutional Reports anorexia, Reports daytime sleepiness - ENT Reports system reviewed and no additional complaints, except as documented - Cardiovascular Reports shortness of breath - Respiratory Reports pain with cough - Gastrointestinal Reports abdominal pain - Musculoskeletal Reports muscle weakness [facility] Medical History: Medical History (Last Reviewed 04/14/25 @ 16:50 by Frantz Aguillon MD) Abdominal pain Acute pancreatitis Arthritis Chronic GERD Chronic, continuous use of opioids Depression Disc degeneration, lumbar Diverticulosis of colon LEE (dyspnea on exertion) Dysphagia Elevated LFTs Erosive esophagitis Erosive osteoarthritis of hands, bilateral GERD (gastroesophageal reflux disease) History of palpitations Hyperlipemia Hypertension Hypotension New onset headache Occipital neuralgia of left side Palpitations Pancreatic adenocarcinoma Pancreatic mass Pancreatic mass Past heart attack Sleep difficulties Spondylosis of lumbar spine Upper abdominal pain Vomiting Family History: Family History (Last Reviewed 04/14/25 @ 16:50 by Frantz Aguillon MD) Mother Hypertension Breast cancer Maternal Grandmother Myocardial infarct Skin cancer Sister Heart problem Breast cancer Family/Other Esophageal cancer Surgical History: Surgical History (Last Reviewed 04/14/25 @ 16:50 by Frantz Aguillon MD) H/O bilateral mastectomy H/O: hysterectomy History of cholecystectomy History of esophagogastroduodenoscopy (EGD) Hx of colonoscopy Social History: Social History (Last Reviewed 04/14/25 @ 16:51 by Frantz Aguillon MD) Living Situation History: Household Members: Children Housing: Apartment Are you a primary health care aide to a significant other at home: No Do you presently have visiting nurse or other home services: No Tobacco History: Patient Tobacco Use Status: Former Tobacco user Second Hand Smoke Exposure: No Substance Use History: Substance Use Type: Marijuana Occupation Assessmet: service: No Home Medications and Allergies Current Medications: Current Medications Acetaminophen (Acetaminophen 325 Mg Tablet) 650 mg PO Q6H PRN PRN Reason: Pain, Mild 1-3,fever,headache Bisacodyl (Bisacodyl 5 Mg Tablet.Dr) 10 mg PO BEDTIME PRN PRN Reason: Constipation last line Calcium Carbonate (Calcium Carbonate 750 Mg Tab.Chew) 750 mg PO Q4H PRN PRN Reason: Heartburn Enoxaparin Sodium (Enoxaparin Sodium 40 Mg/0.4 Ml Syringe) 40 mg SUBCUT Q24H [facility] Last Admin: 04/25/25 14:04 Dose: 40 mg Ceftriaxone Sodium 1 gm/ (Sodium Chloride) 50 mls @ 100 mls/hr IV Q24H [facility] Last Infusion: 04/25/25 14:34 Dose: Infused Dextrose/Lactated Ringer's (D5lr) 1,000 mls @ 100 mls/hr IVCONT .Q10H [facility] Last Admin: 04/25/25 15:31 Dose: 100 mls/hr Lidocaine (Lidocaine 5 % Ointment 35 Gm) 1 appl TOPICAL BID PRN; Protocol PRN Reason: port a cath Magnesium Citrate (Magnesium Citrate 300 Ml Solution) 15 ml PO DAILY [facility] Last Admin: 04/25/25 08:39 Dose: Not Given Magnesium Hydroxide (Milk Of Magnesia 30 Ml Oral.Susp) 30 ml PO DAILY PRN PRN Reason: Constipation Melatonin (Melatonin 3 Mg Tablet) 6 mg PO BEDTIME PRN PRN Reason: Insomnia Metronidazole (Metronidazole 500 Mg Tablet) 500 mg PO TID [facility] Last Admin: 04/25/25 15:16 Dose: Not Given Morphine Sulfate (Morphine Sulfate 4 Mg/Ml Cartridge) 2 mg IVPUSH Q4H PRN; Protocol PRN Reason: Pain, Severe (Pain Scale 7-10) Last Admin: 04/23/25 21:24 Dose: 2 mg Non-Formulary Medication (Linaclotide [Linzess]) 290 mcg PO QAM [facility] Ondansetron HCl (Ondansetron Hcl 4 Mg/2 Ml Vial) 4 mg IVPUSH Q8H PRN PRN Reason: Nausea and Vomiting Last Admin: 04/25/25 13:57 Dose: 4 mg Oxycodone HCl (Oxycodone Hcl Immed Release 5 Mg Tablet) 10 mg PO Q6H PRN PRN Reason: Pain, Moderate(Pain Scale 4-6) Last Admin: 04/22/25 17:19 Dose: 10 mg Polyethylene Glycol (Polyethylene Glycol 3350 17 Gm Powd.Pack) 17 gm PO DAILY [facility] Last Admin: 04/25/25 08:39 Dose: Not Given Quetiapine Fumarate (Quetiapine Fumarate 50 Mg Tablet) 50 mg PO BEDTIME [facility] Last Admin: 04/24/25 20:05 Dose: 50 mg Sodium Chloride (0.9 % Sodium Chloride Flush 3 Ml Syringe) 3 ml IVFLUSH [facility] Last Admin: 04/25/25 15:33 Dose: 3 ml Home Medications ?Medication ?Instructions ?Recorded ?Confirmed ?Type bisacodyl 5 mg tablet,delayed 10 mg PO BEDTIME PRN Constipation 03/22/25 04/22/25 History release (Dulcolax (bisacodyl)) last line lidocaine 5 % topical ointment 1 appl topical BID PRN port a cath 03/22/25 04/22/25 History dexamethasone 4 mg tablet 4 mg PO BID PRN days 2 and 3 after 04/22/25 04/22/25 History chemotherapy linaclotide 290 mcg capsule 290 mcg PO QAM 04/22/25 04/22/25 History (Linzess) magnesium citrate 15 ml PO DAILY 04/22/25 04/22/25 History polyethylene glycol 3350 17 17 g PO DAILY 04/22/25 04/22/25 History gram/dose oral powder (Miralax) quetiapine 50 mg tablet 50 mg PO BEDTIME 04/22/25 04/22/25 History Allergies Allergy/AdvReac Type Severity Reaction Status Date / Time black pepper Allergy Severe Anaphylaxis Verified 04/22/25 08:17 Penicillins (PENICILLINS) Allergy Intermediate HIVES,SWELL Verified 04/22/25 08:17 ING sumatriptan (SUMATRIPTAN) AdvReac Severe PT STATES Verified 04/22/25 08:17 HEART ATTACK Physical Exam Vital signs: Vital Signs Temp 97.1 F 04/25/25 14:58 Pulse 67 04/25/25 14:58 Resp 18 04/25/25 14:58 BP 146/75 H 04/25/25 14:58 Pulse Ox 100 04/25/25 14:58 O2 Del Method Room Air 04/25/25 14:58 Intake & Output 04/24/25 04/25/25 04/25/25 18:59 06:59 18:59 Intake Total 773.333 / 3150.000 2376.667 / 3150.000 803.333 / 803.333 Balance 773.333 / 3150.000 2376.667 / 3150.000 803.333 / 803.333 Intake: Intake, Oral Amount 240 / 240 Intake, IV Amount 773.333 / 2910.000 2136.667 / 2910.000 803.333 / 803.333 cefTRIAXone sodium 1 gm In 0.9 50 / 50 50 / 50 % Sodium Chloride 50 ml @ 100 mls/hr IV Q24H [facility] Rx#: [id number] metroNIDAZOLE/NS 500 mg In 100 100 / 300 200 / 300 100 / 100 ml @ 100 mls/hr IV Q8H [facility] Rx#: [id number] Dextrose 5 % and Lactated Ring 653.333 / 653.333 1,000 ml @ 100 mls/hr IVCONT . Q10H [facility] Rx#:[id number] Lactated Ringers 1,000 ml @ 100 623.333 / 2560.000 1936.667 / 2560.000 mls/hr IVCONT .Q10H [facility] Rx#: [id number] Other: NPO Yes Number of Unmeasured Voids 0 3 Urine Bathroom Bathroom Urine Color Yellow Last Bowel Movement 04/24/25 04/24/25 Weight 45.2 kg - Constitutional Present: no acute distress - Routine HEENT Exam Head: Present: atraumatic, normal inspection, normocephalic ENT: Present: mucous membranes moist - Routine Neck Exam Present: supple, full ROM - Routine Respiratory Exam Present: decreased breath sounds - Routine Cardiovascular Exam Cardiovascular: Present: RRR - Routine Abdominal Exam Present: diminished bowel sounds Hem/Onc Consult Result - Labs CBC & Chem 7: 04/25/25 05:08 04/25/25 05:08 Labs: Short CBC 04/25/25 Range/Units 05:08 WBC 3.1 L (4.8-10.8) X10*3/uL Hgb 10.7 L (12.0-16.0) g/dl Hct 32.0 L (37.0-47.0) % Plt Count 225 (160-400) X10*3/uL BMP 04/25/25 05:08 Sodium 141 Potassium 3.4 Chloride 106 Carbon Dioxide 21 L BUN 7 L Creatinine 0.57 Calcium 8.3 L Assessment and Plan Patient Active problem list reviewed?: Yes (1) Pancreatic cancer Status: Acute Assessment and plan: The cell nadirs are so far mild. We should check the cbc daily for several days. Recommend hyidration, pain control antiemetics, and cultures. She is significantly immunosuppressed and surveillance for sepsis is important. Will follow. - Time Spent With Patient Time Spent with Patient (in minutes): 20
[2025-04-25 18:14] LABS: Glucose, Whole Blood 112 mg/dL (60-115)
[2025-04-25 19:23] VITALS: BP 120/73; PULSE 65; RESP 18; TEMP 36.1; O2SAT 95
[2025-04-25 21:20] LABS: Glucose, Whole Blood 139 mg/dL (60-115)
[2025-04-26] MEDS: Dextrose 5 % and Lactated Ring 1,000 ML 100 ML IVCONT (01:49)
[2025-04-26 03:26] VITALS: BP 109/68; PULSE 62; RESP 18; TEMP 36.3; O2SAT 96
[2025-04-26 06:37] LABS: Glucose, Whole Blood 108 mg/dL (60-115)
[2025-04-26 08:00] VITALS: BP 121/73; PULSE 70; RESP 14; TEMP 36.2; O2SAT 99
--- NOTE | 2025-04-26 11:09 | PM.DS ---
DS: Providers Provider Date of admission: 04/22/25 11:40 Date of discharge: 04/26/25 Primary care physician: Emilie Davis MD Consults: 04/22/25 11:01 Consult to Gastroenterology Routine Consulting Provider: [facility] Gastro[facility]ology Services Reason for consultation: abdominal pain, constipation ?colitis Has provider been notified: No 04/25/25 13:20 Consult to Hematology / Oncology Routine Consulting Provider: [facility] Oncology/Hematology Reason for consultation: Here for recurrent n/v/abd pain. Follows with Dr. Mar DS: Diagnosis Discharge Diagnosis (1) Pancreatic cancer: Status: Acute DS: Summary Hospital Course Hospital Course: History and physical as per admitting provider. This is a 55-year-old transgender male with history of pancreatic cancer undergoing chemotherapy who presents to the emergency department with abdominal pain. Patient had an abdominal MRI in January 2025 for acute pancreatitis which revealed a hypoenhancing solid mass concerning for malignancy. He underwent endoscopic ultrasound with biopsy of the mass at [facility] on February 18. He was ultimately diagnosed with pancreatic adenocarcinoma and was started on neoadjuvant chemotherapy. The last dose of chemotherapy was April 12. He was admitted from 04/14 to 04/16 for abdominal pain due to constipation, and presyncope due to dehydration. Was treated with stool softenders and enema and had BM with improvement in symptoms. He returns to the ED today with ongoing abdominal pain. There is b/l lower abdominal pain and epigastric pain. Nausea and vomiting has been present intermitently since starting chemotherapy. He has been drinking prune juice and using miralax and is having daily stools which range from liquid to soft. Having chills but denies fever, no recent travel, take out food or recent sick contacts. Persistent decreased oral intake. In the ED, lipase was low, there was no fever or leukocytosis. Lactic acid was 3.0. CT scan of the abdomen and pelvis showed ongoing diffuse dilation of the entire colon with a transverse colon measuring up to 5.9 cm in diameter with thickening of the colon beginning at the splenic flexure and extending throughout the rectum consistent with segmental colitis, either infectious or inflammatory in nature. Ischemic is considered less likely. There is no pneumatosis. Semi solid stool is seen throughout the dilated colon. Was treated with empiric antibiotics, pain medication and admission was requested. 55-year-old woman treated for severe sepsis secondary to acute colitis. CT scan showing colitis, negative GI panel and C diff. Treated with IV Rocephin and Flagyl. Initially patient was unable to tolerate diet, started with clears and then stopped. Today advanced diet and patient was able to take down food. She does have a history of persistent constipation so this may have contributed to some colonic distention. Patient should follow up with GI outpatient for sigmoidoscopy versus colonoscopy. She will be sent home with a few more days of antibiotics for colitis. Monitor it protein calorie malnutrition secondary to pancreatic adenocarcinoma. Has a history of some ongoing nausea, vomiting and decreased p.o. intake. She should increase protein in her diet, drink plenty of fluids. Paris's currently under treatment with [facility] oncology. Time Attestation Discharge Coordination Time (in mins): 45 Quality: Safe Use of Opioids Does Pt have an Active Cancer Diagnosis on the Problem List?: No Quality: Stroke Does the patient have a stroke diagnosis?: No Physical Exam Exam: Exam: Appearing in no acute distress head is normocephalic atraumatic eyes pupils are PERRLA sclera is anicteric mouth throat mucous membranes are intact and moist neck is supple no lymphadenopathy, no JVD noted lung sounds are clear to auscultation heart regular rate rhythm, clear S1, S2 positive bowel sounds, abdomen is soft, nontender neuro patient is alert x3, no focal deficits Vital Signs: Vital Signs: Last Vital Signs Temp 97.2 F 04/26/25 08:00 Pulse 70 04/26/25 08:00 Resp 14 04/26/25 08:00 BP 121/73 04/26/25 08:00 Pulse Ox 99 04/26/25 08:00 O2 Del Method Room Air 04/26/25 08:00 BMI result Body Mass Index 16.6 DS: Data Data Completed and Pending Labs on day of discharge: Laboratory Results - last 24 hr 04/25/25 04/25/25 04/25/25 12:00 18:10 21:15 POC Glucose 108 112 139 H 04/26/25 06:34 POC Glucose 108 Preliminary micro results at discharge 04/22/25 10:27 Blood Culture - Preliminary Blood - Venous No growth after 48 hours. 04/22/25 09:57 Blood Culture - Preliminary Blood - Venous No growth after 48 hours. Discharge Plan Discharge Anticipated Discharge Date/Time: 04/26/25 11:03 Patient Disposition: Home, Self-Care Discharge Diagnosis: Severe sepsis Acute colitis Referrals: Emilie Davis MD [Primary Care Provider, [facility]] - 1 Week Discharge Medications: New cefuroxime axetil 500 mg tablet 500 mg PO BID Qty: 6 0RF metronidazole 500 mg tablet 500 mg PO Q8H Qty: 9 0RF Continued magnesium citrate Solution 15 ml PO DAILY Patient Comments: PATIENT REPORTS TAKING A TABLESPOON EVERYDAY. polyethylene glycol 3350 [Miralax] 17 gram/dose Powder 17 g PO DAILY quetiapine 50 mg tablet 50 mg PO BEDTIME Linzess 290 mcg capsule 290 mcg PO QAM dexamethasone 4 mg tablet 4 mg PO BID PRN (Reason: days 2 and 3 after chemotherapy) Rx Instructions: Take 1 tablet twice a day day 2 and 3 after chemotherapy; gets chemo treatment Wednesdays-Fridays (takes on & Saturday BID). ondansetron 8 mg Tablet,Disintegrating 8 mg PO Q8H PRN (Reason: Nausea And Vomiting) Qty: 60 0RF oxycodone 10 mg Tablet 10 mg PO Q6H PRN (Reason: Pain (Scale Score 7-10)) Qty: 60 0RF Rx Instructions: Partial Fill upon patient request. bisacodyl [Dulcolax (bisacodyl)] 5 mg tablet,delayed release (DR/EC) 10 mg PO BEDTIME PRN (Reason: Constipation last line) lidocaine 5 % ointment 1 appl topical BID PRN (Reason: port a cath) (DME) Oxygen Home Use Kit See Rx Instructions .Route Qty: 3 0RF Rx Instructions: Start home O2 at 15-25 L/min via non-rebreather facemask x's 15-20 minutes at onset of cluster headache attack. Patient will require both M tanks and E tanks. Discharge Orders: Discharge Order (Routine); Ordered 04/26/25 Ordered By: Luz Elena Juarez Diet: Advance to usual diet Activity on Discharge: As tolerated Stand Alone Forms: Patient Portal Discharge page Print Language: Urdu Care Plan Goals: Complete course of antibiotics Drink plenty of fluids [employer] Health Concerns: Severe sepsis Acute colitis Plan of Treatment: Follow up with primary care provider as needed Take all medications as prescribed Assessment: See discharge summary
--- NOTE | 2025-04-26 11:22 | MHC.CM.PN ---
pt dcd home self care
[2025-04-26 11:35] VITALS: BP 115/73; PULSE 81; RESP 17; TEMP 36.8; O2SAT 99
[2025-04-26 11:38] LABS: Glucose, Whole Blood 98 mg/dL (60-115)
== END 2025-04-26 11:53 | disposition home or self-care (01) | DRG 720 ==
LOC: HO.ED 09:57 → HO.EDOVER 12:00 → HO.S3 14:23
PROVIDERS: Physician Assistant; Student in an Organized Health Care Education/Training Program; Admitting Provider Physician Assistant Medical; Emergency Provider Emergency Medicine; PCP Family Medicine; Visit Provider Nurse Practitioner Acute Care
DX: A41.9 Sepsis, unspecified organism (principal); C25.9 Malignant neoplasm of pancreas, unspecified; E44.0 Moderate protein-calorie malnutrition; F64.0 Transsexualism; E86.0 Dehydration; E16.2 Hypoglycemia, unspecified; Z99.81 Dependence on supplemental oxygen; R65.20 Severe sepsis without septic shock; K52.9 Noninfective gastroenteritis and colitis, unspecified; K59.00 Constipation, unspecified; Z87.891 Personal history of nicotine dependence; Z68.1 Body mass index [BMI] 19.9 or less, adult; Z79.899 Other long term (current) drug therapy
CPT/HCPCS: 36415; 71045; 74018; 74176; 80048; 80053; 82947; 83605; 83690; 83735; 85007; 85025; 85027; 87040; 87493; 87507; 93005; 99285; J0131; J0696; J1171; J1308; J1650; J1790; J1836; J2270; J2405; J7120

== ENCOUNTER → 2025-04-22 08:15 | Outpatient (BNV) | payer OTHER, SELFPAY | PROVIDERS: Emergency Provider Emergency Medicine; PCP Family Medicine; Visit Provider Internal Medicine Cardiovascular Disease | DX: R94.31 Abnormal electrocardiogram [ECG] [EKG] (principal); R11.2 Nausea with vomiting, unspecified | CPT/HCPCS: 93010 ==

== ENCOUNTER → 2025-04-22 08:16 | Outpatient (BNV) | payer OTHER, SELFPAY | PROVIDERS: Emergency Provider Emergency Medicine; Visit Provider Radiology Diagnostic Radiology | DX: C25.9 Malignant neoplasm of pancreas, unspecified (principal); K59.39 Other megacolon; J43.9 Emphysema, unspecified | CPT/HCPCS: 71045; 74176 ==

== ENCOUNTER 2025-04-22 11:40 | Outpatient (BNV) | payer OTHER, SELFPAY | END 2025-04-24 11:44 | PROVIDERS: Admitting Provider Physician Assistant Medical; Emergency Provider Emergency Medicine; PCP Family Medicine; Visit Provider Radiology Diagnostic Radiology | DX: K59.00 Constipation, unspecified (principal); R10.9 Unspecified abdominal pain | CPT/HCPCS: 74018 ==

== ENCOUNTER → 2025-04-22 11:40 | Outpatient (BNV) | payer OTHER, SELFPAY | PROVIDERS: Admitting Provider Physician Assistant Medical; Emergency Provider Emergency Medicine; PCP Family Medicine; Visit Provider Internal Medicine | DX: K52.9 Noninfective gastroenteritis and colitis, unspecified (principal) | CPT/HCPCS: 99232 ==

== ENCOUNTER 2025-05-03 09:55 | Outpatient (AMB) | payer OTHER, SELFPAY ==
--- OUTSIDE RECORDS SUMMARY | 2025-05-03 11:44 | XMS_ITS | Encounter Summary ---
Author Organization [employer] Address [address] [place] [address] 7t [place] [address] Care Team Providers Care Inspector And Tester Name Role Phone Emilie Davis MD Primary Care Provider [phone] Morales Echavarria Unavailable Unavailable August Unavailable Fred Castanon Unavailable Ele Mar MD Unavailable [phone] Reason for Referral * Consultation (Urgent) - Closed Specialty Diagnoses / Procedures Referred By Contac t Referred To Contact Behavioral Health Diagnoses Depression, unspecified depression type Emilie Davis MD [address] [place] [address] Phone: tel: fax: Referral ID Status Reason Start Date Expiration Date V isits Requested Visits Authorized [id number] Closed Specialty Services Required 02/05/2025 02/05/2026 1 1 Encounter Details Date Type Department Care Team (Late st Contact Info) Description 02/05/2025 Orders Only [facility] MEDICINE [address] [place] [address] Emilie Davis MD [address] [place] [address] [phone] Depression, unspecified depression type (Primary Dx) Social [...] 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 on file Not on file documented as of this encounter Plan of Treatment Upcoming Encounters Date Type Department Care Team (Late st Contact Info) Description 06/04/2025 3:00 PM EST Office Visit [facility] OPTOMETRY [address] [place] [address] Merissa Donis, OD [address] [place] [address] 06/14/2025 9:00 AM EST Nutrition [facility] DIABETES/NUTRITION [address] [place] [address] [place] [address] 06/16/2025 9:30 AM EST Office Visit [facility] MEDICINE [address] [place] [address] Emilie Davis MD [address] [place] [address] Scheduled Referrals Name Type Priority Associated Diagnoses [...] as of this encounter Care Teams Inspector And Tester Relationship Specialty Start Date End Date Emilie Davis MD [address] [place] [phone] PCP - General Family Medicine 05/13/18 Morales Echavarria FNP [address] [place] [address] Nurse Practitioner Family Medicine 04/16/23 03/10/25 Aida Orozco [address] [place] [address] Gastroenterology 05/26/24 Fred Castanon [address] [place] [address] Cardiology 07/21/24 Ele Mar MD [address] [place] [address] Hematology and Oncology 02/22/25 Marina Brown MD Rheumatology 02/10/25 Costa Miller MD Attending Hepatobiliary & Pancreatic Surgeon Division of Surgical Oncology [facility] Surgical Oncology 03/11/25 documented as of this encounter
--- OUTSIDE RECORDS SUMMARY | 2025-05-03 11:44 | XMS_ITS | Encounter Summary ---
Author Organization [facility] Address [address] [place] [phone] Phone Care Team Providers Care Production Assembler Name Role Phone Ryan, Emilie Way MD Primary Care Provi baldomero Encounter Details Date Type Department Care Team (Late st Contact Info) Description 10/28/2018 Procedure Pass OR Admitting Dept - Virtual Department [address] [place] [phone] Social History Tobacco Use Types Packs/Day Years [...] Center for Outpatient Care - [facility] [address] [facility] [place] [address] 05/14/2025 8:30 AM EST Appointment [facility] for Outpatient Care - [facility] [address] [facility] [place] [address] Costa Miller MD [address] [place] [address] [email or web address] 05/14/2025 11:00 AM EST Office Visit [facility] [place] [facility] for Gastrointestinal Cancer [address] [facility], [address] [place] [address] Costa Miller MD [address] [facility] [address] [place] [address] [email or web address] documented as of this encounter Visit Diagnoses Not on filedocumented in this encounter Care Teams Production Assembler Relationship Specialty Start Date End Date Ryan, Emilie Way MD [address] [place] [address] PCP - General Family Medicine 06/03/18 documented as of this encounter Additional Source Comments The information contained in this document represents components of the legal health record. It is not the complete legal health record.[facility]
--- OUTSIDE RECORDS SUMMARY | 2025-05-03 11:44 | XMS_ITS | Encounter Summary ---
Author Organization [employer] Address [address] [facility] 7t [place] [address] Care Team Providers Care Auger Operator Name Role Phone Emilie Davis MD Primary Care Provider [phone] Morales Echavarria Unavailable Unavailable August Unavailable Fred Castanon Unavailable Ele Mar MD Unavailable [phone] Reason for Visit * Reason Comments Med Refill Encounter Details Date Type Department Care Team (Late st Contact Info) Description 01/01/2023 Refill [facility] MEDICINE [address] [place] [address] Emilie Davis MD [address] [place] [address] Social History Tobacco Use Types Packs/Day Years [...] 8:54 AM EDT T/C to patient via wire steward regarding x-ray result. No answer, message left [...] Description 06/04/2025 3:00 PM EST Office Visit [facility] OPTOMETRY [address] [place] [address] GagandeepMerissa santos, OD [address] [place] [address] 06/14/2025 9:00 AM EST Nutrition [facility] DIABETES/NUTRITION [address] [place] [address] [place] [address] 06/16/2025 9:30 AM EST Office Visit [facility] MEDICINE [address] [place] [address] Emilie Davis MD [address] [place] [address] documented as of this encounter Visit Diagnoses Not on filedocumented in this encounter Additional Health Concerns Assessment Noted Time PHQ-9 Depression Total Score: 19 023 9:24 AM EDT documented as of this encounter Care Teams Auger Operator Relationship Specialty Start Date End Date Emilie Davis MD [address] [place] [address] PCP - General Family Medicine 05/13/18 Morales Echavarria FNP [address] [place] [address] Nurse Practitioner Family Medicine 04/16/23 03/10/25 Aida Orozco [address] [place] [address] Gastroenterology 05/26/24 Fred Castanon [address] [place] [address] Cardiology 07/21/24 Ele Mar MD [address] [place] [address] Hematology and Oncology 02/22/25 Marina Brown MD Rheumatology 02/10/25 Costa Miller MD Attending Hepatobiliary & Pancreatic Surgeon Division of Surgical Oncology [facility] Surgical Oncology 03/11/25 documented as of this encounter
--- OUTSIDE RECORDS SUMMARY | 2025-05-03 11:44 | XMS_ITS | Encounter Summary ---
Author Organization [employer] Address [address] [facility] 7t [place] [address] Care Team Providers Care Computer Technology Trainer Name Role Phone Emilie Davis MD Primary Care Provider [phone] Morales Echavarria Unavailable Unavailable August Unavailable Fred Castanon Unavailable Ele Mar MD Unavailable [phone] Reason for Visit * Reason Comments Med Refill Encounter Details Date Type Department Care Team (Late st Contact Info) Description 01/17/2024 Refill [facility] MEDICINE [address] [place] [address] Emilie Davis MD [address] [place], [place] [phone] 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) Social [...] Description 06/04/2025 3:00 PM EST Office Visit [facility] OPTOMETRY [address] [place] [address] Gagandeep, Merissa, OD [address] [place] [address] 06/14/2025 9:00 AM EST Nutrition [facility] DIABETES/NUTRITION [address] [place] [address] Raina Renee, RD 230 [place] [address] 06/16/2025 9:30 AM EST Office Visit [facility] MEDICINE [address] [place] [address] Emilie Davis MD [address] [place] [address] documented as of this encounter Visit Diagnoses Diagnosis Gender 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- Primary documented in this encounter Additional Health Concerns Assessment Noted Time PHQ-9 Depression Total Score: 3 04/30/20 23 9:17 AM EST documented as of this encounter Care Teams Computer Technology Trainer Relationship Specialty Start Date End Date Emilie Davis MD [address] [place] [address] PCP - General Family Medicine 05/13/18 Morales Echavarria FNP [address] [place] [address] Nurse Practitioner Family Medicine 04/16/23 03/10/25 Aida Orozco [address] [place] [address] Gastroenterology 05/26/24 Fred Castanon [address] [place] [address] Cardiology 07/21/24 Ele Mar MD [address] [place] [address] Hematology and Oncology 02/22/25 Marina Brown MD Rheumatology 02/10/25 Costa Miller MD Attending Hepatobiliary & Pancreatic Surgeon Division of Surgical Oncology [facility] Surgical Oncology 03/11/25 documented as of this encounter
--- OUTSIDE RECORDS SUMMARY | 2025-05-03 11:44 | XMS_ITS | Encounter Summary ---
Author Organization [employer] Address [address] [place] [address] 7t [place] [address] Care Team Providers Care Town Justice Name Role Phone Emilie Davis MD Primary Care Provider [phone] Morales Echavarria Unavailable Unavailable August Unavailable Fred Castanon Unavailable Ele Mar MD Unavailable [phone] Encounter Details Date Type Department Care Team ([facility] st Contact Info) Description 02/19/2025 Orders Only [facility] [address] [place], [place] [phone] Provider, MD Sammy Social History Tobacco Use [...] 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 on file Not on file documented as of this encounter Plan of Treatment Upcoming Encounters Date Type Department Care Team (Late st Contact Info) Description 06/04/2025 3:00 PM EST Office Visit [facility] OPTOMETRY [address] [place] [address] Gagandeep, Merissa, OD [address] [place] [address] 06/14/2025 9:00 AM EST Nutrition [facility] DIABETES/NUTRITION [address] [place] [address] Raina Renee, ZEENAT [address] [place] [address] 06/16/2025 9:30 AM EST Office Visit [facility] MEDICINE [address] [place] [address] Emilie Davis MD [address] [place] [address] documented as of this encounter Procedures Procedure [...] documented as of this encounter Care Teams Town Justice Relationship Specialty Start Date End Date Emilie Davis MD [address] [place] [address] PCP - General Family Medicine 05/13/18 Morales Echavarria FNP [address] [place] [address] 138[address] Nurse Practitioner Family Medicine 04/16/23 03/10/25 Pam Aida [address] [place] [address] Gastroenterology 05/26/24 Fred Castanon [address] [place] [address]459 Cardiology 07/21/24 Ele Mar MD [address] [place] [address] Hematology and Oncology 02/22/25 Marina Brown MD Rheumatology 02/10/25 Costa Miller MD Attending Hepatobiliary & Pancreatic Surgeon Division of Surgical Oncology [facility] Surgical Oncology 03/11/25 documented as of this encounter
--- OUTSIDE RECORDS SUMMARY | 2025-05-03 11:44 | XMS_ITS | Encounter Summary ---
Author Organization [employer] Address [address] [facility] [address] 7t [place] [address] Care Team Providers Care Governor Assembler Hydraulic Name Role Phone Emilie Davis MD Primary Care Provider [phone] Morales Echavarria Unavailable Unavailable August Unavailable Fred Castanon Unavailable Ele Mar MD Unavailable [phone] Encounter Details Date Type Department Care Team (Late st Contact Info) Description 03/25/2023 Orders Only [facility] MEDICINE [address] [place] [address] Emilie Davis MD [address] [place] [address] Social History Tobacco Use Types Packs/Day Years [...] Description 06/04/2025 3:00 PM EST Office Visit [facility] OPTOMETRY [address] [place] [address] GagandeepMerissa santos, OD 230 [place] [address] 06/14/2025 9:00 AM EST Nutrition [facility] DIABETES/NUTRITION [address] [place] [address] [place] [address] 06/16/2025 9:30 AM EST Office Visit [facility] MEDICINE [address] [place] [address] Emilie Davis MD [address] [place] [address] documented as of this encounter Visit Diagnoses Not on filedocumented in this encounter Additional Health Concerns Assessment Noted Time PHQ-9 Depression Total Score: 10 023 9:08 AM EDT documented as of this encounter Care Teams Governor Assembler Hydraulic Relationship Specialty Start Date End Date Emilie Davis MD [address] [place] [address] PCP - General Family Medicine 05/13/18 Morales Echavarria FNP [address] [place] [address] Nurse Practitioner Family Medicine 04/16/23 03/10/25 Aida Orozco [address] [place] [address] Gastroenterology 05/26/24 Fred Castanon [address] [place] [address]79 Cardiology 07/21/24 Ele Mar MD [address] [place] [address] Hematology and Oncology 02/22/25 Marina Brown MD Rheumatology 02/10/25 Costa Miller MD Attending Hepatobiliary & Pancreatic Surgeon Division of Surgical Oncology [facility] Surgical Oncology 03/11/25 documented as of this encounter
--- OUTSIDE RECORDS SUMMARY | 2025-05-03 11:44 | XMS_ITS | Encounter Summary ---
Author Organization [employer] Address [address] [facility] 7t [place] [address] Care Team Providers Care Training Lead Name Role Phone Emilie Davis MD Primary Care Provider [phone] Morales Echavarria Unavailable Unavailable August Unavailable Fred Castnaon Unavailable Ele Mar MD Unavailable [phone] Reason for Visit * Reason Onset Date Comments Hospital Follow-up 02/22/2025 Encounter Details Date Type Department Care Team (Late st Contact Info) Description 02/22/2025 Telephone [facility] MEDICINE [address] [place] [address] Emilie Davis MD [address] [place], [place] [phone] Hospital Follow-up Social History Tobacco Use Types [...] 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 Hospital: [facility] Date of admission: 02/18 Discharge date: 02/21 Diagnosed: pt did a biopsy and they injured his pancreas *Send message to [facility] Clinical Care Coordinators Contact pt at [phone] documented in this encounter Plan of Treatment Upcoming Encounters Date Type Department Care Team (Late st Contact Info) Description 06/04/2025 3:00 PM EST Office Visit [facility] OPTOMETRY [address] [place] [address] GagandeepMerissa santos, OD [address] [place] [address] 06/14/2025 9:00 AM EST Nutrition [facility] DIABETES/NUTRITION [address] [place] [address] Raina Renee, ZEENAT [address] [place] [address] 06/16/2025 9:30 AM EST Office Visit [facility] MEDICINE [address] [place] [address] Emilie Davis MD [address] [place] [address] documented as of this encounter Visit Diagnoses Not on filedocumented in this encounter Additional Health Concerns Assessment Noted Time PHQ-9 Depression Total Score: 3 04/30/20 23 9:17 AM EST documented as of this encounter Care Teams Training Lead Relationship Specialty Start Date End Date Emilie Davis MD [address] [place] [address] PCP - General Family Medicine 05/13/18 Morales Echavarria FNP [address] [place] [address] Nurse Practitioner Family Medicine 04/16/23 03/10/25 Aida Orozco [address] [place] [address] Gastroenterology 05/26/24 Fred Castanon [address] [place] [address] Cardiology 07/21/24 Ele Mar MD [address] [place] [address] Hematology and Oncology 02/22/25 Marina Brown MD Rheumatology 02/10/25 Costa Miller MD Attending Hepatobiliary & Pancreatic Surgeon Division of Surgical Oncology [facility] Surgical Oncology 03/11/25 documented as of this encounter
--- OUTSIDE RECORDS SUMMARY | 2025-05-03 11:44 | XMS_ITS | Encounter Summary ---
Author Organization [employer] Address [address] [facility] 7t [place] [address] Care Team Providers Care Laborer Aquatic Life Name Role Phone Emilie Davis MD Primary Care Provider [phone] Morales Echavarria Unavailable Unavailable August Unavailable Fred Castanon Unavailable Ele Mar MD Unavailable [phone] Encounter Details Date Type Department Care Team (Late Contact Info) Description 11/28/2022 Abstract [facility] MEDICINE [address] [place] [address] Emilie Davis MD [address] [place] [address] Social History Tobacco Use Types Packs/Day Years [...] Description 06/04/2025 3:00 PM EST Office Visit [facility] OPTOMETRY [address] [place] [address] Merissa Donis OD 230 [place] [address] 06/14/2025 9:00 AM EST Nutrition [facility] DIABETES/NUTRITION [address] [place] [address] YarelisRaina frank, RD [address] [place] [address] 06/16/2025 9:30 AM EST Office Visit [facility] MEDICINE [address] [place] [address] Emilie Davis MD [address] [place] [address] documented as of this encounter Visit Diagnoses Not on filedocumented in this encounter Additional Health Concerns Assessment Noted Time PHQ-9 Depression Total Score: 19 023 9:24 AM EDT documented as of this encounter Care Teams Laborer Aquatic Life Relationship Specialty Start Date End Date Emilie Davis MD [address] [place] [address] PCP - General Family Medicine 05/13/18 Morales Echavarria FNP [address] [place] [address] Nurse Practitioner Family Medicine 04/16/23 03/10/25 Aida Orozco [address] [place] [address] Gastroenterology 05/26/24 Fred Castanon [address] [place] [address] Cardiology 07/21/24 Ele Mar MD [address] [place] [address] Hematology and Oncology 02/22/25 Marina Brown MD Rheumatology 02/10/25 Costa Miller MD Attending Hepatobiliary & Pancreatic Surgeon Division of Surgical Oncology [facility] Surgical Oncology 03/11/25 documented as of this encounter
--- OUTSIDE RECORDS SUMMARY | 2025-05-03 11:44 | XMS_ITS | Encounter Summary ---
Author Organization [employer] Address 75 [facility] 7t [place] [address] Care Team Providers Care Piece Maker Name Role Phone Emilie Davis MD Primary Care Provider [phone] Morales Echavarria Unavailable Unavailable August Unavailable Ferd Castanon Unavailable Ele Mar MD Unavailable [phone] Reason for Visit * Reason Onset Date Comments Referral 07/18/2022 Encounter Details Date Type Department Care Team (Late st Contact Info) Description 07/18/2022 Telephone [facility] MEDICINE [address] [place] [address] Emilie Davis MD [address] [place] [address] Referral Social History Tobacco Use Types Packs/Day [...] to our [facility]. Please contact pt [phone] documented in this encounter Plan of Treatment Upcoming Encounters Date Type Department Care Team (Late st Contact Info) Description 06/04/2025 3:00 PM EST Office Visit [facility] OPTOMETRY [address] [place] [address] Merissa Donis, OD [address] [place] [address] 06/14/2025 9:00 AM EST Nutrition [facility] DIABETES/NUTRITION [address] [place] [address] Raina Renee, RD 230 [place] [address] 06/16/2025 9:30 AM EST Office Visit [facility] MEDICINE [address] [place] [address] Emilie Davis MD [address] [place] [address] documented as of this encounter Visit Diagnoses Not on filedocumented in this encounter Care Teams Piece Maker Relationship Specialty Start Date End Date Emilie Davis MD [address] [place] [address] PCP - General Family Medicine 05/13/18 Morales Echavarria FNP [address] [place] [address] Nurse Practitioner Family Medicine 04/16/23 03/10/[address] [place] [address] [address] [place] [address] Gastroenterology 05/26/24 Fred Castanon [address] [place] [address] Cardiology 07/21/24 Ele Mar MD [address] [place] [address] Hematology and Oncology 02/22/25 Marina Brown MD Rheumatology 02/10/25 Costa iMller MD Attending Hepatobiliary & Pancreatic Surgeon Division of Surgical Oncology [facility] Surgical Oncology 03/11/25 documented as of this encounter
--- OUTSIDE RECORDS SUMMARY | 2025-05-03 11:44 | XMS_ITS | Encounter Summary ---
Author Organization [employer] Address 75 [facility] 7t [place] [address] Care Team Providers Care Air Analysis Technician Name Role Phone Emilie Davis MD Primary Care Provider [phone] Morales Echavarria Unavailable Unavailable August Unavailable Fred Castanon Unavailable Ele Mar MD Unavailable [phone] Reason for Visit * Reason Onset Date Comments Referral 07/20/2024 Encounter Details Date Type Department Care Team (Late st Contact Info) Description 07/20/2024 Telephone [facility] MEDICINE [address] [place], [place] [phone] Emilie Davis MD [address] [place], [place] [phone] Referral Social History Tobacco Use Types Packs/Day [...] 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 Contact pt at [phone] documented in this encounter Plan of Treatment Upcoming Encounters Date Type Department Care Team (Late st Contact Info) Description 06/04/2025 3:00 PM EST Office Visit [facility] OPTOMETRY [address] [place] [address] Merissa Donis, OD 230 [place] [address] 06/14/2025 9:00 AM EST Nutrition [facility] DIABETES/NUTRITION [address] [place] [address] [place] [address] 06/16/2025 9:30 AM EST Office Visit [facility] MEDICINE [address] [place] [address] Emilie Davis MD [address] [place] [address] documented as of this encounter Visit Diagnoses Not on filedocumented in this encounter Additional Health Concerns Assessment Noted Time PHQ-9 Depression Total Score: 3 04/30/20 9:17 AM EST documented as of this encounter Care Teams Air Analysis Technician Relationship Specialty Start Date End Date Emilie Davis MD [address] [place] [address] PCP - General Family Medicine 05/13/18 Morales Echavarria FNP [address] [place] [address] Nurse Practitioner Family Medicine 04/16/23 03/10/25 Aida Orozco [address] [place] [address] Gastroenterology 05/26/24 Fred Castanon [address] [place] [address] Cardiology 07/21/24 Ele Mar MD [address] [place] [address] Hematology and Oncology 02/22/25 Marina Brown MD Rheumatology 02/10/25 Costa Miller MD Attending Hepatobiliary & Pancreatic Surgeon Division of Surgical Oncology [facility] Surgical Oncology 03/11/25 documented as of this encounter
--- OUTSIDE RECORDS SUMMARY | 2025-05-03 11:45 | XMS_ITS | Encounter Summary ---
Author Organization [employer] Address 75 [facility] 7t [place] [address] Care Team Providers Care Licensed Optician Name Role Phone Emilie Davis MD Primary Care Provider [phone] Orozcoaugust Unavailable Fred Castanon Unavailable Ele Mar MD Unavailable [phone] Reason for Visit * Reason Comments Med Refill Encounter Details Date Type Department Care Team ([facility] st Contact Info) Description 04/29/2025 Refill [facility] MEDICINE [address] [place] [address] Emilie Davis MD [address] [place] [address] Primary insomnia Social History Tobacco Use Types [...] 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 Not on file Not on file documented as of this encounter Plan of Treatment Upcoming Encounters Date Type Department Care Team (Late st Contact Info) Description 06/04/2025 3:00 PM EST Office Visit [facility] OPTOMETRY [address] [place] [address] Merissa Donis, OD [address] [place] [address] 06/14/2025 9:00 AM EST Nutrition [facility] DIABETES/NUTRITION [address] [place] [address] [place] [address] 06/16/2025 9:30 AM EST Office Visit [facility] MEDICINE [address] [place] [address] Emilie Davis MD [address] [place], [place] [phone] documented as of this encounter Visit Diagnoses Diagnosis Primary insomnia Persistent disorder of initiating or maintaining sleep documented in this encounter Additional Health Concerns Assessment Noted Time PHQ-9 Depression Total Score: 9 03/03/20 25 4:53 PM EDT documented as of this encounter Care Teams Licensed Optician Relationship Specialty Start Date End Date Emilie Davis MD [address] [place] [address] PCP - General Family Medicine 05/13/18August [address] [place] [address] Gastroenterology 05/26/24 Fred Castanon [address] [place] [address] Cardiology 07/21/24 Ele Mar MD [address] [place] [address] Hematology and Oncology 02/22/25 Marina Brown MD Rheumatology 02/10/25 Costa Miller MD Attending Hepatobiliary & Pancreatic Surgeon Division of Surgical Oncology [facility] Surgical Oncology 03/11/25 documented as of this encounter
--- OUTSIDE RECORDS SUMMARY | 2025-05-03 11:45 | XMS_ITS | Clinical Summary ---
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) 03/30/2025 Orders Only [facility] [address] [facility], 4th Floor, [address] [place] [address] Costa Miller MD Malignant neoplasm of pancreas, unspecified location of malignancy (Primary Dx) 03/09/2025 3:00 PM EDT Office Visit [facility] [address] [facility], 4th Floor, [address] [place] [address] Costa Miller MD 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) 03/08/2025 Ancillary Orders [facility] [address] [place] [address] Costa Miller MD 03/08/2025 Ancillary Orders [facility] [address] [place] [address] Costa Miller MD 03/04/2025 Ancillary Orders [facility] [address] [place] [address] Heriberto Tan MD 03/04/2025 Ancillary Orders [facility] [address] [place] [address] Heriberto Tan MD 02/23/2025 - 02/23/2025 11:59 PM EDT Hospital Encounter [facility] [address] [place] [address] Heriberto Tan MD Discharge Disposition: Home or Self Care 02/18/2025 - 02/18/2025 11:59 PM EDT Hospital Encounter [facility] [address] [place] [address] Heriberto Tan MD Discharge Disposition: Home or [...] st Contact Info) Description 03/30/2025 Procedure Pass [facility] [place] [address] [facility], 6th [place] [address] 05/14/2025 8:30 AM EST Appointment [facility] [place] [address] [facility] [facility], 6th [place] [address] Costa Miller MD [address] [facility] [address] [place] [address] [email or web address] 05/14/2025 11:00 AM EST Office Visit [facility] [place] [facility] [address] [facility], 7th Floor, [address] [place] [address] Costa Miller MD [address] [facility] [address] [place] [address] [email or web address] Health Maintenance Due Date Last Done [...] OR CONSULT Routine 02/18/2025 12:00 AM EDT from Last 3 Months [...] clinician's provided indication for this examination in [facility]: pancreatic cancer TECHNIQUE: Multidetector CT of [...] pancreatic head/uncinate process mass is outside the [id number]. Please refer to report of CT abdomen dated 02/18/2025 for additional findings. Chest Wall: No chest wall mass. Bones: There are mild degenerative changes in the visualized spine. No suspicious lytic or blastic lesions. Procedure Note Rachel Parson, [facility] - 03/08/2025 CT CHEST OUTSIDE WITH INTERPRETATION [...] Known pancreatic head/uncinate process massis outside the [id number]. Please refer to report of CT abdomen dated1 for additional findings. Chest Wall: No chest wall mass. Bones: There are mild degenerative changes in the visualized spine. Nosuspicious lytic or blastic lesions. IMPRESSION: No metastatic disease to the thorax us Heriberto Dover MD IMG OUTSIDE ZENIA GING W/ INTERPRETATION Final Result [facility] [address] [place] [address] * CT Abdomen/Pelvis Outside with Interpretation or [...] COMPARISON: MRI ABDOMEN OUTSIDE WITH INTERPRETATION OR [id number] FINDINGS: Lower Chest: Calcified granulomas in the [...] OUTSIDE ZENIA GING W/ INTERPRETATION Final Result [employer] [address] [place] [id number] from Last 3 Months Insurance WELLSENSE NON NSPG PCP SILVER CLARITY CONNECTORCARE WELLSENSE NON NSPG PCP SILVER CLARITY CONNECTORCARE WELLS[employer] NON NSPG PCP SILVER CLARITY CONNECTORCARE WE[employer] NON NSPG PCP SILVER CLARITY CONNECTORCARE WELLSENSE NON NSPG PCP SILVER CLARITY CONNECTORCARE WELLSENSE NON NSPG PCP SILVER CLARITY CONNECTORCARE Rani [address] [address] [employer] Rani [address] [address] [place] [address] Advance Directives For more information, please contact: [phone] (9AM - 5PM Leslie/[facility], Saturday-Saturday) * Full Code (Presumed) (Latest Code Status on File) Date Activated Date Inactivated Comments 10/28/2018 9:51 AM 10/28/2018 7:25 PM Care Teams Foundry Worker Apprentice Relationship Specialty Start Date End Date Harrison, Emilie Way MD [address] [place] [address] PCP - General Family Medicine 06/03/18 Additional Source Comments The information contained in this document represents components of the legal health record. It is not the complete legal health record.[facility]
--- OUTSIDE RECORDS SUMMARY | 2025-05-03 11:45 | XMS_ITS | Clinical Summary ---
Author Organization [employer] Address [address] [place] [address] Care Team Providers Care Measurement Psychologist Name Role Phone Emilie Davis MD Primary Care Provider [phone] Orozcoaugust Unavailable Fred Castanon Unavailable Ele Mar MD Unavailable [phone] Allergies Active Allergy Reactions Criticality Noted Date Comments Penicillins Anaphylaxis,Rash High 05/16/2017 Sumatriptan 10/28/2018 Medications * This document contains information received from the source organization and may not represent a complete record from that organization. LORazepam (Ativan) 0.5 MG tabletIndications :Insomnia secondary to depression with anxiety Take 1 tab po at bedtime prn anxiety 30 tablet 03/03/20 25 Active dexAMETHasone (Decadron) 4 MG tablet Take 1 tablet twice a day day 2 and 3 after chemotherapy ; gets chemo treatment Wednesdays- (takes on & Saturday BID). 03/11/20 25 Active lidocaine (Xylocaine) 5 % ointment Apply topically if needed in the morning and at bedtime (porth a cath). 03/22/20 25 Active ondansetron ODT (Zofran-ODT) 8 MG disintegrating tablet Take 1 tablet by mouth every 8 (eight) hours if needed for nausea or vomiting. 03/25/20 25 Active oxyCODONE (Roxicodone) 10 MG immediate release tablet Take 1 tablet by mouth every 4 (four) hours if needed for moderate pain. 03/30/20 25 Active traZODone (Desyrel) 50 MG tablet Take 1 tablet by mouth if needed at bedtime for sleep. 11/13/20 25 Active QUEtiapine (SEROquel) 50 MG tabletIndications :Primary insomnia TAKE 1 TABLET BY MOUTH EVERY DAY AT BEDTIME 30 tablet 04/29/20 25 Active QUEtiapine (SEROquel) 50 MG tabletIndications :Primary insomnia Take 1 tablet (50 mg) by mouth at bedtime. 30 tablet 8:53 AM EST 03/31/20 25 025 Discontinued Active Problems Problem Noted Date Diagnosed [...] ultrasound and biopsy of this mass at [facility] on 02/18/2025. FNA of pancreatic head mass [...] -Staging CT chest with contrast performed at [facility] on 02/23/2025 showed no evidence of metastaticdisease in chest. Mild coronary artery calcifications, calcified granulomas with soft tissue nodules unchanged since 2018 and considered benign. -Clinical stage T2 N0 -Seen by Dr. Jj oncologist 02/25/25 where she discussed role of preoperative or neoadjuvant chemotherapy for downsizing tumor. He was referred to [facility] surgical Oncology but they did not take his insurance so he was referred to [place] for Surgical Oncology . -He received his portacath Chemotherapy with FOLFIRINOX regimen will be discussed. -Family history of breast cancer and personal history of pancreatic cancer. BRCA1 and 2 and 40 gene panel sent to [facility]. -Nutrition consult has been placed. -Note for surgical oncologist 03/09/25 Dr. Costa Miller MD Attending Hepatobiliary & Pancreatic Surgeon Division of Surgical Oncology [facility] resectable pancreatic adenocarcinoma. He is young, [...] ultrasound and biopsy of this mass at [facility] on 02/18/2025. FNA of pancreatic head mass [...] -Staging CT chest with contrast performed at [facility] on 02/23/2025 showed no evidence of metastaticdisease in chest. Mild coronary artery calcifications, calcified granulomas with soft tissue nodules unchanged since 2018 and considered benign. -Clinical stage T2 N0 -Seen by Dr. Jj oncologist 02/25/25 where she discussed role of preoperative or neoadjuvant chemotherapy for downsizing tumor. He was referred to [facility] surgical Oncology but they did not take his insurance so he was referred to [place] for Surgical Oncology . -He received his portacath Chemotherapy with FOLFIRINOX regimen will be discussed. -Family history of breast cancer and personal history of pancreatic cancer. BRCA1 and 2 and 40 gene panel sent to [facility]. -Nutrition consult has been placed. -Note for surgical oncologist 03/09/25 Dr. Costa Miller MD Attending Hepatobiliary & Pancreatic Surgeon Division of Surgical Oncology [facility] resectable pancreatic adenocarcinoma. He is young, [...] ultrasound and biopsy of this mass at [facility] on 02/18/2025. FNA of pancreatic head mass [...] -Staging CT chest with contrast performed at [facility] on 02/23/2025 showed no evidence of metastaticdisease in chest. Mild coronary artery calcifications, calcified granulomas with soft tissue nodules unchanged since 2018 and considered benign. -PET scan has been ordered. -Clinical stage T2 N0 -Seen by Dr. Jj oncologist 02/25/25 where she discussed role of preoperative or neoadjuvant chemotherapy for downsizing tumor. He was referred to [facility] surgical Oncology but they did not take his insurance so he was referred to [place] for Surgical Oncology . -If the plan is to go ahead with chemotherapy, he would get a Port-A-Cath placed by intervention Radiology. Chemotherapy with FOLFIRINOX regimen will be discussed. -Family history of breast cancer and personal history of pancreatic cancer. BRCA1 and 2 and 40 gene panel sent to [facility]. -Chronic dysphagia and underweight. Nutrition consult has been placed. Orders: Referral to Nutrition Therapy; Future Referral to Surgical Oncology; Future Idiopathic acute pancreatitis without infection or necrosis 12/31/2024 Overview (12/31/2024): -dx at [facility] 12/2024 Patient admitted to general medical [...] XR 05/20/24 Coronary artery disease invo lving [place] [facility] without angina pectoris 05/20/2024 Overview (10/15/2024): [...] Non-Reactive 03/18/2024 -03/2024 call from Holli at [facility] who reports pt originally positive for syphilis in [place] 09/18/1990 (RPR of 1:4) and was treated. [...] care facilitated by Alessio. -dental home is [facility] -health care proxy filed 03/16/24 Assessment & Plan (03/17/2024 6:12 AM EST): -next physical exam due after 03/16/2025 -eye care facilitated by [facility]. -dental home is [facility] -health care proxy filed 03/16/24 Assessment & Plan (03/22/2023 9:17 AM EST): -next physical exam due after 12/07/2023. -eye care facilitated by [facility]. -dental home is outside of [facility] Assessment & Plan (12/06/2022 10:19 AM EDT): -next physical exam dueafter 12/07/2023. -eye care facilitated by [facility]. -dental home is outside of [facility] Hx of hepatitis C 11/26/2022 Overview (11/26/2022): [...] rays suggests osteoarthritis. Seen by rheumatology in [place]. Ibuprofen and NSAIDs cause gastritis. Minimal relief with acetaminophen. He was referred back to rheumatology in [place] 08/23/2020 but provider left the area. started on Tramadol. Take 3 times per week. He is not taking at this time -note from account resolution analyst Dr. Marina Brown MD from 02/09/25 reviewed Assessment & Plan (03/17/2024 6:08 AM EST): X rays suggests osteoarthritis. Seen by rheumatology in [place]. Ibuprofen and NSAIDs cause gastritis. Minimal relief with acetaminophen. He was referred back to rheumatology in [place] 08/23/2020 but provider left the area. started on Tramadol. Take 3 times per week. He is not taking at this time. Assessment & Plan (03/22/2023 9:15 AM EST): X rays suggests osteoarthritis. Seen by rheumatology in [place]. Ibuprofen and NSAIDs cause gastritis. Minimal relief with acetaminophen. He was referred back to rheumatology in [place] 08/23/2020 but provider left the area. started on Tramadol. Take 3 times per week. Will need COT in the future. Assessment & Plan (12/06/2022 8:54 AM EDT): X rays suggests osteoarthritis. Seen by rheumatology in [place]. Ibuprofen and NSAIDs cause gastritis. Minimal relief with acetaminophen. He was referred back to rheumatology in [place] 08/23/2020 but provider left the area. started on Tramadol. Take 3 times per week. Will need COT in the future. Assessment & Plan (10/11/2022 9:58 AM EDT): X rays suggests osteoarthritis. Seen by rheumatology in [place]. Ibuprofen and NSAIDs cause gastritis. Minimal relief with acetaminophen. He was referred back to rheumatology in [place] 08/23/2020 but provider left the area. started [...] Now with palpitations. Will refer to his liner machine operator for bradycardia. Assessment & Plan (03/22/2023 9:16 AM EST): Sinus bradycardia and asymptomatic. Pt states he always has slow heart rate Pt repots heart rate in 40s recorded with home BP monitor with symptoms of dizziness recorded at home. Now with palpitations. Will refer to his liner machine operator for bradycardia. Assessment & Plan (12/06/2022 8:54 AM EDT): Sinus bradycardia and asymptomatic. Pt states he always has slow heart rate Pt repots heart rate in 40s recorded with home BP monitor with symptoms of dizziness recorded at home. Now with palpitations. Will refer to his liner machine operator for bradycardia. Assessment & Plan (10/11/2022 9:58 AM EDT): Sinus bradycardia and asymptomatic. Pt states he always has slow heart rate Pt repots heart rate in 40s recorded with home BP monitor with symptoms of dizziness recorded at home. Now with palpitations. Will refer to his liner machine operator for bradycardia. Generalized abdominal pain [...] GI. Insurance no longer accepted at [facility]. -EGD scheduled for December 2021. -10/19/24 IMPRESSION: Normal 4-hour solid food gastric emptying study. -note from Aida Orozco 10/21/24 reveiwed [place] gastric emptying study [place] barium swallow H pylori Ag Stool ordered -note from Aida Orozco 12/04/24 Kaushik almeida -esophageal barium swallow 01/13/25 ordered by [facility], Aida Orozco IMPRESSION: High- grade stenosis/narrowing distal [...] GI. Insurance no longer accepted at [facility]. -EGD scheduled for December 2021. Assessment [...] GI. Insurance no longer accepted at [facility]. -EGD scheduled for December 2021. Assessment [...] GI. Insurance no longer accepted at [facility]. -EGD scheduled for December 2021. Assessment [...] GI. Insurance no longer accepted at [facility]. -EGD scheduled for December 2021. History [...] male and is changed his name in [place] October 2020. -He restarted testosterone 08/2020 -S/p chest reconstruction 10/2018 -Testosterone was 654 on 10/2022 Lab Results Component Value Date TESTTOTAL 1641 (A) 03/18/2024 HGB 16.2 (H) 03/18/2024 HGB 15.8 10/18/2022 HCT 47.3 (H) 03/18/2024 Goal testosterone levels 350-700ng/dl. Assessment & Plan (03/17/2024 6:12 AM EST): Pt identifies as male and is changing his name in [place] October 2020. He restarted testosterone 08/2020 S/p chest reconstruction 10/2018 Pt would like to switch small needle to subcutaneous instead. 25 gague needles sent 12/06/2022 Testosterone was 654 on 10/2022. Assessment & Plan (03/22/2023 9:16 AM EST): Pt identifies as male and is changing his name in [place] October 2020. He restarted testosterone 08/2020 S/p chest reconstruction 10/2018 Pt would like to switch small needle to subcutaneous instead. 25 gague needles sent 12/06/2022 Testosterone was 654 on 10/2022. Assessment & Plan (12/06/2022 11:18 AM EDT): Pt identifies as male and is changing his name in [place] October 2020. He restarted testosterone 08/2020 S/p chest reconstruction 10/2018 Pt would like to switch small needle to subcutaneous instead. 25 gague needles sent 12/06/2022 Testosterone was 654 on 10/2022. Assessment & Plan (10/11/2022 9:59 AM EDT): Pt identifies as male and is changing his name in [place] October 2020. He restarted testosterone 08/2020 S/p chest reconstruction 10/[address] scan, lung 10/04/2017 Overview (05/20/2024): -Ct scan in [facility] on 12/25/2017 showed multiple indeterminate nodules, [...] 11/15/23 and NO SHOW. Pt can call [phone] to schedule mariely. number given to call 03/16/24 -CT 05/08/24 No acute intrathoracic findings. Calcified granulomas present bilaterally. No suspicious pulmonary nodule identified. Air-fluid level present within the midthoracic esophagus can be associated with gastroesophageal reflux disease and esophageal dysmotility. Coronary artery atherosclerosis. Assessment & Plan (05/20/2024 4:05 PM EST): -Ct scan in [place] ER on 12/25/2017 showed multiple indeterminate nodules, [...] 11/15/23 and NO SHOW. Pt can call [phone] to schedule mariely. number given to call 03/16/24 -CT 05/08/24 No acute intrathoracic findings. Calcified granulomas present bilaterally. No suspicious pulmonary nodule identified. Air-fluid level present within the midthoracic esophagus can be associated with gastroesophageal reflux disease and esophageal dysmotility. Coronary artery atherosclerosis. Assessment & Plan (03/17/2024 6:13 AM EST): -Ct scan in [place] ER on 12/25/2017 showed multiple indeterminate nodules, [...] 11/15/23 and NO SHOW. Pt can call [phone] to schedule mariely. number given to call 03/16/24 Assessment & Plan (03/22/2023 9:16 AM EST): -Ct scan in [place] ER on 12/25/2017 showed multiple indeterminate nodules, largest was solid and measured 2mm. -Given that the Pt has a tobacco Hx and quit in 2018 we referrred to pulmonology that was likely distrupted by the pandemic. -Will ordered repeat CT of chest to follow the nodles. Assessment & Plan (12/06/2022 10:18 AM EDT): -Ct scan in [place] ER on 12/25/2017 showed multiple indeterminate nodules, [...] for OP services and referral to [facility] Psychopharmacology clinic. Provided Crisis contact number in [...] treatment engagement. PLAN: 1. Follow up with [facility]: Not recommended for follow-up 2. Patient goal [...] organization. Date Type Department Care Team Description 04/29/[address] [address] Emilie Davis MD Primary insomnia 04/25/2025 Travel 04/23/[address] [address] Emilie Davis MD Chartprep 04/23/[address] [address] Jackie Gallegos, PharmD 04/22/2025 Orders Only [facility] External Provider, [facility] 04/19/2025 Patient Outreach [address] [address] Emilie Davis MD Care Coordination ([facility] [place]mazan- Pt return call for [place] assistance) 04/19/[address] [address] Emilie Davis MD Hospital Follow-up 04/14/2025 Orders Only GENERIC EXTERNAL DATA DEPARTMENT Provider, Generic External Data 04/05/[address] [place] [address] Emilie Davis MD Appointment Request 03/31/2025 10:15 AM EST Telemedicine [facility] [place] [address] Emilie Davis MD Pancreatic adenocarcinoma (CMS/HCC) (HCC) (Primary Dx); Dietary counseling; Exercise counseling; Underweight; Primary insomnia 03/31/2025 Orders Only GENERIC EXTERNAL DATA DEPARTMENT Provider, Generic External Data 03/31/2025 Travel 03/30/2025 2:00 PM EST Office Visit [facility] [place] [address] Vitaliy Martinez MD Abdominal pain of multiple sites (Primary Dx) 03/30/2025 Orders Only GENERIC EXTERNAL DATA DEPARTMENT Provider, Generic External Data 03/30/2025 Telephone [facility] [place] [address] Bijal Irene, VOCATIONAL ED INSTRUCTOR Follow-up 03/30/2025 Travel 03/30/2025 Telephone [facility] [place] [address] Emilie Davis MD chart prep 03/30/2025 Telephone [facility] [place] [address] Emilie Davis MD Nurse Triage 03/22/2025 Orders Only GENERIC EXTERNAL DATA DEPARTMENT Provider, Generic External Data 03/19/2025 Telephone [facility] [place] [address] Emilie Davis MD chart prep 03/19/2025 Telephone [facility] [place] [address] Emilie Davis MD 03/18/2025 Telephone [facility] [place] [address] Emilie Davis MD Chart Prep 03/16/2025 Orders Only GENERIC EXTERNAL DATA DEPARTMENT Provider, Generic External Data 03/11/2025 Telephone [facility] [address] Medina Lewis, RONALD 03/04/2025 Orders Only [address] [address] Emilie Davis MD Pancreatic adenocarcinoma (CMS/HCC) (HCC) (Primary Dx) 03/03/2025 9:30 AM EDT Office Visit [facility] MEDICINE [address] [place] [address] Emilie Davis MD Pancreatic adenocarcinoma (CMS/HCC) (HCC) (Primary Dx); Insomnia secondary to depression with anxiety 03/03/2025 Travel 02/26/[address] [address] Emilie Davis MD Interoffice Coordination 02/25/2025 1:40 PM EDT Office Visit [facility] WALK-IN CENTER [address] [place] [address] Ann-Marie Muhammad MD Pain of left calf (Primary Dx); Pancreatic adenocarcinoma (CMS/HCC) (HCC) 02/25/2025 Results Follow-Up [facility] [address] [place] [address] Ann-Marie Muhammad MD Lower Extremity Venous Duplex 02/25/2025 Orders Only [facility] [address] [place] [address] Ann-Marie Muhammad MD 02/25/2025 Travel 02/24/2025 Orders Only [facility] [address] [place] [id number] Sammy Dowd MD Pancreatic mass (Primary Dx) 02/23/[address] [facility] [address] [place] [address] Emilie Davis MD Pre-visit Planning (Pre-visit planning - LVM ) 02/22/2025 Patient Outreach [facility] [address] [place] [address] Emilie Davis MD Transition Of Care (Tcm) (Unscheduled ) 02/22/[address] [facility] [address] [place] [address] Emilie Davis MD Hospital Follow-up 02/19/2025 Orders Only [facility] [address] [place] [phone] Provider, MD Sammy 02/19/[address] [address] Emilie Davis MD 02/18/2025 Orders Only GENERIC EXTERNAL DATA DEPARTMENT Provider, Generic External Data 02/16/[address] [address] Medina Lewis RN 02/09/2025 Orders Only [facility] External Provider, [facility] Chronic bilateral low back pain, unspecified whether sciatica present (Primary Dx) 02/05/2025 Orders Only [address] [address] Emilie Davis MD Depression, unspecified depression type (Primary Dx) 02/04/[address] [address] Emilie Davis MD Care Coordination; Referral 02/04/[address] [address] Emilie Davis MD Referral; Care Coordination 02/02/2025 Orders Only [address] [address] Kayla Sellers RN 02/01/2025 Orders Only GENERIC [...] 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 OPTOMETRY [address] [place] [address] Merissa Donis, OD [address] [place] [address] 06/14/2025 9:[address] [facility] DIABETES/NUTRITION [address] [place] [address] Raina Renee, RD [address] [place] [address] 06/16/2025 9:30 AM EST Office Visit [facility] MEDICINE [address] [place] [address] Emilie Davis MD [address] [place] [address] Health Maintenance Due Date Last Done Comments [...] Screening 03/03/2026 03/03/2025 Tobacco Screening 03/31/2026 03/31/2025 Disability Screening 04/25/2026 04/25/2025 HPV/Cotest 03/22/2028 03/22/2023, 11/11, 12/06/2017 Pap Smear 03/22/2028 03/22/2023, 12/06/2017 DTaP/Tdap/Td Vaccines (2 - Td or Tdap) 06/18/2029 06/18/2019 Lipid Panel 07/24/2029 07/24/2024, 11/0 10/2023, 10/18/2022, Additional history exists Hepatitis A [...] Name Priority Date/Time Associated Diagnosis Comments XR KUB AND UPRIGHT 2 VIEWS Routine 04/24/2025 12:27 PM EST LACTIC ACID LAB USE ONLY Routine 04/22/2025 11:[address] ABDOMEN PELVIS WO CONTRAST Routine 04/22/2025 9:15 AM EST CTA CHEST PE PROTOCAL Routine 04/14/2025 3:[address] ABDOMEN PELVIS W CONTRAST Routine 04/14/2025 3:[address] CERVICAL SPINE WO CONTRAST Routine 04/14/2025 3:[address] HEAD WO CONTRAST Routine 04/14/2025 3 :10 PM EST URINALYSIS WITH REFLEX MICROSCOPIC Routine 04/14/2025 2:49 [...] AM EST IR CVC INSERT TUNNEL W PRT/MOBILE HOME TECHNICIAN Routine 03/16/2025 8:20 AM EST PROTHROMBIN TIME-INR [...] CA 19-9 Routine 02/01/2025 11:57 AM EDT LIPID PANEL, STANDARD Routine 07/24/2024 1:36 PM EDT HPV MRNA E6/E7 REFLEX TO HPV 16, 18/45 Routine 03/22/2023 11:30 AM EST PAP SMEAR Routine 03/22/2023 11:30 AM EST HM COLONOSCOPY Routine 01/30/2018 from Last 3 Months or Most Recently Relevant to Health Maintenance Results * XR KUB and Upright 2 Views (04/24/2025 12:27 PM EST) Anatomical Region Laterality Modality Radiographic Aurora ging 04/24/2025 12:2 7 PM EST Narrative 04/24/2025 12:28 PM EST [address] [address] XRay Report Signed Patient: Harriet Valdez MR#: [id number] : 1970 Acct:[id number] Age/Sex: 55 / F ADM Date: 04/22/25 Loc: HO.S3 357-[address]: Catie ALANIZ Ordering Physician: Catie Henry Date of Service: 04/24/25 Procedure(s): XR KUB Accession Number(s): [id number] cc: Emilie Davis MD; Catie Henry Reason for Exam: abd pain, constipation CLINICAL HISTORY: abd pain, constipation Supine view abdomen Comparison: CT/REG/SR - CT ABDOMEN PELVIS W IV CON - 03/31/25 18:16 EST CR/SR - XR ABDOMEN 2 VIEWS SUPINE ERECT - 01/08/25 10:54 EDT Findings: Nonspecific bowel gas pattern. Normal stool quantity. No abnormal calcifications. No pneumoperitoneum or pneumatosis. Renal psoas margins are normal. No organomegaly. No radiopaque calculi. Osseous structures intact. Impression: 1. Nonspecific bowel gas pattern. This document has been electronically signed by: Fransisco Pham MD on 04/24/2025 12:27:03 Dictated By: Frnasisco Pham MD Signed By: <Electronically signed by Fransisco Pham MD in [place]> 04/24/25 1227 DD/ 1227 TD/TT: 04/24/25 1227 Storage Center Manager: Procedure Note Donotuseinterpreter, Image - 04/24/[address] [address] XRay Report Signed Patient: Harriet ValdezMR#: [id number] : 1970Acct:[id number] Age/Sex: 55 / FADM Date: 04/22/25 Loc: HO.S3 357-[address]: Catie ALANIZ Ordering Physician: Catie Henry Date of Service: 04/24/25 Procedure(s): XR KUB Accession Number(s): [id number] cc: Emilie Davis MD; Catie Henry Reason for Exam: abd pain, constipation CLINICAL HISTORY: abd pain, constipation Supine view abdomen Comparison: CT/REG/SR - CT ABDOMEN PELVIS W IV CON - 03/31/25 18:16 EST CR/SR - XR ABDOMEN 2 VIEWS SUPINE ERECT - 01/08/25 10:54 EDT Findings: Nonspecific bowel gas pattern. Normal stool quantity. No abnormal calcifications. No pneumoperitoneum or pneumatosis. Renal psoas margins are normal. No organomegaly. No radiopaque calculi. Osseous structures intact. Impression: 1. Nonspecific bowel gas pattern. This document has been electronically signed by: Fransisco Pham MD on 04/24/2025 12:27:03 Dictated By: Fransisco Pham MD Signed By: <Electronically signed by Fransisco Pham MD in [place]> 04/24/25 1227 DD/ 1227 TD/TT: 04/24/25 1227 Storage Center Manager: [facility] External Provider IMG XR PROCEDURES Final Result * Lactic Acid (04/22/2025 11:09 AM EST) Lactic Acid 1.0 0.5 - 2.0 mmol/L [facility] 04/22/2025 11:0 9 AM EST 04/22/2025 11:12 AM EST Generic External Data Provider LAB BLOOD ORDERAB LES Final Result [facility] [address] [place] [phone] * CT Abdomen Pelvis w/o Contrast (04/22/2025 9:15 AM EST) Anatomical Region Laterality Modality Body, Pelvis, Abdomen Computed T omography 04/22/2025 9:15 AM EST Narrative 04/22/2025 10:15 AM EST [address] [address] [address] Scan Report Signed Patient: Harriet Valdez MR#: [id number] : 1970 Acct:[id number] Age/Sex: 55 / F ADM Date: 04/22/25 Loc: HO.ED Attending Dr: Ordering Physician: Gutierrez Mathias DO Date of Service: 04/22/25 Procedure(s): CT abdomen pelvis wo IV con Accession Number(s): [id number] cc: Emilie Davis MD; Gutierrez Mathias DO Report Number: [id number]: Total DLP = 370.00 mGy-cm Reason for Exam: panceatic cancer, abdominal pain EXAMINATION: CT ABDOMEN AND PELVIS WITHOUT CONTRAST CLINICAL INFORMATION: 55-year-old female. Abdominal pain. Mass in pancreatic uncinate process. Known pancreatic cancer. COMPARISON: 04/14/2025, 03/31/2025, 03/22/2025, 02/18/2025. MRI abdomen 01/19/2025. TECHNIQUE: Multidetector volumetric imaging was performed from the superior aspect of the liver through the pubic symphysis. Sagittal and coronal reformatted images were obtained on the technologist's workstation. This CT examination was performed using dose optimization techniques as appropriate, variously including the following: *Automated exposure control *Adjustment of mA and/or kV according to patient size (this includes techniques or standardized protocols for targeted exams where dose is matched to indication/reason for exam; i.e. extremities or head) *Use of iterative reconstruction technique FINDINGS: Study is significantly limited without the benefit of IV contrast. LUNG BASES: Lung bases demonstrate calcified granuloma in the right lower lobe, as well as the lingula. There is minor dependent atelectasis. Lung bases otherwise clear. No consolidations or effusions. Heart size is normal. No pericardial effusion. LIVER, GALLBLADDER, AND BILIARY TREE: The unenhanced liver is normal in size, shape, and attenuation. No definitive focal hepatic lesion present. The gallbladder is surgically absent. Extrahepatic bile duct dilated to approximately 1.1 cm, unchanged. There may be mild intrahepatic ductal dilatation, however evaluation is limited without contrast. PANCREAS: Redemonstration of a mildly low attenuating mass lesion in the uncinate process, unchanged from the prior recent examination but poorly evaluated without contrast. It previously measured approximately 2.5 cm. Mild prominence of the main pancreatic duct, measuring up to 3 mm. Unenhanced pancreas otherwise normal. SPLEEN: Unremarkable. ADRENAL GLANDS: Unremarkable. KIDNEYS AND URETERS: The unenhanced kidneys are normal in size, shape, and attenuation. No hydronephrosis, hydroureter, or calculi seen. Extrarenal pelves noted. No gross perinephric stranding. BLADDER: Partially distended, and normal. GASTROINTESTINAL TRACT: Diffuse dilatation of the entire colon is present, with the ascending colon and transverse colon measuring up to 5.9 cm in diameter. Mild wall thickening of the descending colon extending into the sigmoid, with rectal involvement, suggestive of segmental colitis. No pneumatosis. There is very mild pericolonic fat stranding abutting the thickened segments. There are a few scattered diverticula of the sigmoid. There is semisolid stool seen throughout the colon. A normal appendix is visualized. Small bowel is nondilated and has a normal noncontrast appearance. The terminal ileum compressed. The ileocecal valve appears normal. The stomach is decompressed. The duodenum demonstrates no abnormal dilatation. PERITONEUM/RETROPERITONEUM: There is no free air. There is no gross ascites. ABDOMINAL WALL: Normal without significant hernia or mass. LYMPH NODES: There is an 8 mm lymph node abutting the cecum, with a few smaller lymph nodes in this region. These are nonspecific. There is otherwise no abnormal lymphadenopathy present in the abdomen or pelvis. VASCULAR: Mild to moderate atheromatous calcification of the aorta and iliac arteries. No aneurysm. PELVIC VISCERA: Uterus not well seen. Probable hysterectomy. There are no adnexal masses. OSSEOUS STRUCTURES: The SI joints have a normal appearance. The hip joints have normal appearance. There are no suspicious lytic or blastic bone lesions. There are mild degenerative changes of the lumbar spine most notable at L4-5. CT/CT abdomen pelvis wo IV con IMPRESSION: Inherently limited examination without IV contrast. 1. There is diffuse dilatation of the entire colon, with the transverse colon measuring up to 5.9 cm in diameter. There is wall thickening of the colon beginning at the splenic flexure and extending throughout the rectum consistent with segmental colitis. This is either infectious or inflammatory in nature. Ischemic is considered less likely. There is no pneumatosis present. There is semisolid stool seen throughout the dilated colon. 2. The small bowel is normal in caliber and course without dilatation. 3. Redemonstration of an approximate 2.5 cm mass within the uncinate process of the pancreas. This is poorly evaluated without contrast although grossly stable. No definitive distant metastasis present on this limited noncontrast examination. There is mild biliary and pancreatic ductal dilatation, similar. 4. Several ancillary findings as discussed in the body of the report, stable from prior examinations. Electronically signed by: Micah Hastings MD 04/22/2025 10:12 AM [facility] [place] Dictated By: Micah Hastings MD Signed By: <Electronically signed by Micah Hastings MD in OV> 04/22/25 1012 DD/ TD/TT: 04/22/25 0947 Storage Center Manager: Procedure Note Donotuseinterpreter, Image - 04/22/[address] [place] [address] [address] Scan Report Signed Patient: Harriet Valdez#: [id number] : 1970Acct:[id number] Age/Sex: 55 / FADM Date: 04/22/25 Loc: .ED Attending Dr: Ordering Physician: Gutierrez Mathias DO Date of Service: 04/22/25 Procedure(s): CT abdomen pelvis wo IV con Accession Number(s): [id number] cc: Emilie Davis MD; Gutierrez Mathias DO Report Number: [id number]: Total DLP = 370.00 mGy-cm Reason for Exam: panceatic cancer, abdominal pain EXAMINATION: CT ABDOMEN AND PELVIS WITHOUT CONTRAST CLINICAL INFORMATION: 55-year-old female. Abdominal pain. Mass in pancreatic uncinate process. Known pancreatic cancer. COMPARISON: 04/14/2025, 03/31/2025, 03/22/2025, 02/18/2025. MRI abdomen 01/19/2025. TECHNIQUE: Multidetector volumetric imaging was performed from the superior aspect of the liver through the pubic symphysis. Sagittal and coronal reformatted images were obtained on the technologist's workstation. This CT examination was performed using dose optimization techniques as appropriate, variously including the following: *Automated exposure control *Adjustment of mA and/or kV according to patient size (this includes techniques or standardized protocols for targeted exams where dose is matched to indication/reason for exam; i.e. extremities or head) *Use of iterative reconstruction technique FINDINGS: Study is significantly limited without the benefit of IV contrast. LUNG BASES: Lung bases demonstrate calcified granuloma in the right lower lobe, as well as the lingula. There is minor dependent atelectasis. Lung bases otherwise clear. No consolidations or effusions. Heart size is normal. No pericardial effusion. LIVER, GALLBLADDER, AND BILIARY TREE: The unenhanced liver is normal in size, shape, and attenuation. No definitive focal hepatic lesion present. The gallbladder is surgically absent. Extrahepatic bile duct dilated to approximately 1.1 cm, unchanged. There may be mild intrahepatic ductal dilatation, however evaluation is limited without contrast. PANCREAS: Redemonstration of a mildly low attenuating mass lesion in the uncinate process, unchanged from the prior recent examination but poorly evaluated without contrast. It previously measured approximately 2.5 cm. Mild prominence of the main pancreatic duct, measuring up to 3 mm. Unenhanced pancreas otherwise normal. SPLEEN: Unremarkable. ADRENAL GLANDS: Unremarkable. KIDNEYS AND URETERS: The unenhanced kidneys are normal in size, shape, and attenuation. No hydronephrosis, hydroureter, or calculi seen. Extrarenal pelves noted. No gross perinephric stranding. BLADDER: Partially distended, and normal. GASTROINTESTINAL TRACT: Diffuse dilatation of the entire colon is present, with the ascending colon and transverse colon measuring up to 5.9 cm in diameter. Mild wall thickening of the descending colon extending into the sigmoid, with rectal involvement, suggestive of segmental colitis. No pneumatosis. There is very mild pericolonic fat stranding abutting the thickened segments. There are a few scattered diverticula of the sigmoid. There is semisolid stool seen throughout the colon. A normal appendix is visualized. Small bowel is nondilated and has a normal noncontrast appearance. The terminal ileum compressed. The ileocecal valve appears normal. The stomach is decompressed. The duodenum demonstrates no abnormal dilatation. PERITONEUM/RETROPERITONEUM: There is no free air. There is no gross ascites. ABDOMINAL WALL: Normal without significant hernia or mass. LYMPH NODES: There is an 8 mm lymph node abutting the cecum, with a few smaller lymph nodes in this region. These are nonspecific. There is otherwise no abnormal lymphadenopathy present in the abdomen or pelvis. VASCULAR: Mild to moderate atheromatous calcification of the aorta and iliac arteries. No aneurysm. PELVIC VISCERA: Uterus not well seen. Probable hysterectomy. There are no adnexal masses. OSSEOUS STRUCTURES: The SI joints have a normal appearance. The hip joints have normal appearance. There are no suspicious lytic or blastic bone lesions. There are mild degenerative changes of the lumbar spine most notable at L4-5. CT/CT abdomen pelvis wo IV con IMPRESSION: Inherently limited examination without IV contrast. 1. There is diffuse dilatation of the entire colon, with the transverse colon measuring up to 5.9 cm in diameter. There is wall thickening of the colon beginning at the splenic flexure and extending throughout the rectum consistent with segmental colitis. This is either infectious or inflammatory in nature. Ischemic is considered less likely. There is no pneumatosis present. There is semisolid stool seen throughout the dilated colon. 2. The small bowel is normal in caliber and course without dilatation. 3. Redemonstration of an approximate 2.5 cm mass within the uncinate process of the pancreas. This is poorly evaluated without contrast although grossly stable. No definitive distant metastasis present on this limited noncontrast examination. There is mild biliary and pancreatic ductal dilatation, similar. 4. Several ancillary findings as discussed in the body of the report, stable from prior examinations. Electronically signed by: iMcah Hastings MD 04/22/2025 10:12 AM EST Dictated By: Micah Hastings MD Signed By: <Electronically signed by Micah Hastings MD in OV> 04/22/25 1012 DD/ 0915 TD/TT: 04/22/25 0947 Storage Center Manager: [facility] External Provider IMG CT PROCEDURES Edited Result - Final * CTA Chest PE Protocal (04/14/2025 3:13 PM EST) Only the most recent of2 resultswithin the time period is included. Anatomical Region Laterality Modality Body, Chest Computed Tomogra phy 04/14/2025 3:13 PM EST Narrative 04/14/2025 4:08 PM EST [address] [address] [address] Scan Report Signed Patient: Harriet Valdez MR#: [id number] : 1970 Acct:[id number] Age/Sex: 55 / F ADM Date: 04/14/25 Loc: HO.ED Attending Dr: Ordering Physician: Guillermo Milan MD Date of Service: 04/14/25 Procedure(s): CT angio chest PE protocol Accession Number(s): [id number] cc: Emilie Davis MD; Guillermo Milan MD Report Number: [id number]: Total DLP = 220.00 mGy-cm Reason for Exam: CP, syncope, h of pancreatic cancer, R/o PE EXAMINATION: CT ANGIOGRAM CHEST CLINICAL INFORMATION: CP, syncope, h of pancreatic cancer COMPARISON: 03/22/2025 TECHNIQUE: Multiple axial images were obtained through the chest after the administration of 65 mL of Omnipaque 350 intravenous contrast. Extensive [...] reconstruction technique FINDINGS: QUALITY OF STUDY/CONTRAST BOLUS: Adequate PULMONARY ARTERIES: No filling defects are identified in the pulmonary arteries. THORACIC AORTA: No aneurysm, dissection, or vascular calcifications LUNGS AND PLEURA: Again seen is a calcified granuloma in the posterior right lower lobe and 2 in the lingula. There is minimal dependent atelectasis. Lungs are clear otherwise. MEDIASTINUM: Again seen is gaseous distention of the proximal half of the esophagus. CORONARY ARTERY CALCIFICATION: None CHEST WALL/AXILLA: No axillary or internal mammary lymphadenopathy. UPPER ABDOMEN: Unremarkable BONES: Unremarkable CT/CT angio chest PE protocol IMPRESSION: No evidence of pulmonary embolus or acute pulmonary parenchymal disease. Chronic granulomatous disease. Gaseous distention of the proximal half of the esophagus. Fleischner guidelines were followed. Electronically signed by: Rob Arteaga MD 04/14/2025 04:05 PM EST Dictated By: Rob Arteaga MD Signed By: <Electronically signed by Rob Arteaga MD in OV> 04/14/25 1605 DD/ 1513 TD/TT: 04/14/25 1545 Storage Center Manager: Procedure Note Donotuseinterpreter, Image - 04/14/[address] [address] [address] Scan Report Signed Patient: Harriet Valdez#: [id number] : 1970Acct:[id number] Age/Sex: 55 / FADM Date: 04/14/25 Loc: .ED Attending Dr: Ordering Physician: Guillermo Milan MD Date of Service: 04/14/25 Procedure(s): CT angio chest PE protocol Accession Number(s): [id number] cc: Emilie Davis MD; Guillermo Milan MD Report Number: [id number]: Total DLP = 220.00 mGy-cm Reason for Exam: CP, syncope, h of pancreatic cancer, R/o PE EXAMINATION: CT ANGIOGRAM CHEST CLINICAL INFORMATION: CP, syncope, h of pancreatic cancer COMPARISON: 03/22/2025 TECHNIQUE: Multiple axial images were obtained through the chest after the administration of 65 mL of Omnipaque 350 intravenous contrast. Extensive [...] reconstruction technique FINDINGS: QUALITY OF STUDY/CONTRAST BOLUS: Adequate PULMONARY ARTERIES: No filling defects are identified in the pulmonary arteries. THORACIC AORTA: No aneurysm, dissection, or vascular calcifications LUNGS AND PLEURA: Again seen is a calcified granuloma in the posterior right lower lobe and 2 in the lingula. There is minimal dependent atelectasis. Lungs are clear otherwise. MEDIASTINUM: Again seen is gaseous distention of the proximal half of the esophagus. CORONARY ARTERY CALCIFICATION: None CHEST WALL/AXILLA: No axillary or internal mammary lymphadenopathy. UPPER ABDOMEN: Unremarkable BONES: Unremarkable CT/CT angio chest PE protocol IMPRESSION: No evidence of pulmonary embolus or acute pulmonary parenchymal disease. Chronic granulomatous disease. Gaseous distention of the proximal half of the esophagus. Fleischner guidelines were followed. Electronically signed by: Rob Arteaga MD 04/14/2025 04:05 PM EST Dictated By: Rob Arteaga MD Signed By: <Electronically signed by Rob Arteaga MD in OV> 04/14/25 1605 DD/ 1513 TD/TT: 04/14/25 1545 Storage Center Manager: [facility] External Provider IMG CT PROCEDURES Final Result * CT Abdomen Pelvis w/ Contrast (04/14/2025 3:13 PM EST) Only the most recent of4 resultswithin the time period is included. Anatomical Region Laterality Modality Body, Pelvis, Abdomen Computed T omography 04/14/2025 3:13 PM EST Narrative 04/14/2025 4:00 PM EST [place] [address] CT Scan Report Signed Patient: Harriet Valdez MR#: [id number] : 1970 Acct:[id number] Age/Sex: 55 / F ADM Date: 04/14/25 Loc: HO.ED Attending Dr: Ordering Physician: Guillermo Milan MD Date of Service: 04/14/25 Procedure(s): CT abdomen pelvis w IV con Accession Number(s): [id number] cc: Emilie Davis MD; Guillermo Milan MD Report Number: [id number]: Total DLP = 416.00 mGy-cm Reason for Exam: h of pancreatic cancer, s/p syncope, abd. pain?? EXAMINATION: CT ABDOMEN AND PELVIS WITH CONTRAST CLINICAL INFORMATION: History of pancreatic cancer. Status post syncope. Abdominal pain. COMPARISON: March 31, 2025. TECHNIQUE: Multidetector volumetric images were obtained from the superior aspect of the liver through the pubic symphysis following administration 85 mL of Omnipaque 350 intravenous contrast. Sagittal and coronal reformatted images were obtained on the technologist's workstation. Oral contrast: No This CT examination was performed using dose optimization techniques as appropriate, variously including the following: *Automated exposure control *Adjustment of mA and/or kV according to patient size (this includes techniques or standardized protocols for targeted exams where dose is matched to indication/reason for exam; i.e. extremities or head) *Use of iterative reconstruction technique DLP: 416.01 mGy-cm FINDINGS: LUNG BASES: 5 mm calcified pulmonary nodule, right lung base. Less than 3 mm calcified pulmonary nodules in the periphery of the left lower lung lobe and lingula. LIVER, GALLBLADDER, AND BILIARY TREE: Liver measures 15 cm. No enhancing mass. Main portal veins and hepatic veins and intrahepatic portion of the IVC are patent. Mild intrahepatic biliary ductal dilatation. 3 mm cystic lesion right hepatic lobe too small to be fully characterized. Status post cholecystectomy. Common bile duct measures 12 mm. PANCREAS: There is a 2.5 cm enhancing lesion in the uncinate process. Main pancreatic duct measures 2 mm. No peripancreatic fluid collection. SPLEEN: 8 cm. No solid or cystic mass. ADRENAL GLANDS: No nodular lesions. KIDNEYS AND URETERS: No hydronephrosis. No gross nephrolithiasis. Normal enhancement pattern of the renal cortex and medulla. Normal urinary excretion into the collecting system. BLADDER: Collapsed. GASTROINTESTINAL TRACT: Abundant stool throughout the large intestine. There is a focal segmental concentric wall thickening measuring 5 cm in maximum length at the hepatic colonic flexure/ascending colon junction. Numerous diverticula in the left hemicolon. No pneumatosis intestinalis. No pneumoperitoneum. No ascites. Appendix is normal.. ABDOMINAL WALL: Small fat-containing umbilical hernia. LYMPH NODES: Mild prominent mesenteric and retroperitoneal lymph nodes measuring less than 8 mm. VASCULAR: Mixed plaques throughout the abdominal aorta wall and iliac arteries without aneurysm or dissection. PELVIC VISCERA: Not fully evaluated. OSSEOUS STRUCTURES: Multilevel spondylosis pronounced at L4-5. No lytic or blastic lesions. No acute fracture. CT/CT abdomen pelvis w IV con IMPRESSION: 2.5 cm lesion/mass, uncinate process of the pancreas, unchanged. Concerning neoplasm, hepatic colonic flexure/ascending colon junction. Intrahepatic and extrahepatic biliary ductal dilatation, mild. Abundant stool without intestinal obstruction pattern. Diverticular disease. Fleischner guidelines were followed. Electronically signed by: Eric Daley MD 04/14/2025 03:57 PM EST Dictated By: Eric Maki MD Signed By: <Electronically signed by Eric Irene MD in OV> 04/14/25 1557 DD/ 1513 TD/TT: 04/14/25 1545 Storage Center Manager: Procedure Note Donotuseinterpreter, Image - 04/14/[address] [place] [address] [address] Scan Report Signed Patient: Harriet ValdezMR#: [id number] : 1970Acct:[id number] Age/Sex: 55 / FADM Date: 04/14/25 Loc: .ED Attending Dr: Ordering Physician: Guillermo Milan MD Date of Service: 04/14/25 Procedure(s): CT abdomen pelvis w IV con Accession Number(s): [id number] cc: Emilie Davis MD; Guillermo Milan MD Report Number: [id number]: Total DLP = 416.00 mGy-cm Reason for Exam: h of pancreatic cancer, s/p syncope, abd. pain?? EXAMINATION: CT ABDOMEN AND PELVIS WITH CONTRAST CLINICAL INFORMATION: History of pancreatic cancer. Status post syncope. Abdominal pain. COMPARISON: March 31, 2025. TECHNIQUE: Multidetector volumetric images were obtained from the superior aspect of the liver through the pubic symphysis following administration 85 mL of Omnipaque 350 intravenous contrast. Sagittal and coronal reformatted images were obtained on the technologist's workstation. Oral contrast: No This CT examination was performed using dose optimization techniques as appropriate, variously including the following: *Automated exposure control *Adjustment of mA and/or kV according to patient size (this includes techniques or standardized protocols for targeted exams where dose is matched to indication/reason for exam; i.e. extremities or head) *Use of iterative reconstruction technique DLP: 416.01 mGy-cm FINDINGS: LUNG BASES: 5 mm calcified pulmonary nodule, right lung base. Less than 3 mm calcified pulmonary nodules in the periphery of the left lower lung lobe and lingula. LIVER, GALLBLADDER, AND BILIARY TREE: Liver measures 15 cm. No enhancing mass. Main portal veins and hepatic veins and intrahepatic portion of the IVC are patent. Mild intrahepatic biliary ductal dilatation. 3 mm cystic lesion right hepatic lobe too small to be fully characterized. Status post cholecystectomy. Common bile duct measures 12 mm. PANCREAS: There is a 2.5 cm enhancing lesion in the uncinate process. Main pancreatic duct measures 2 mm. No peripancreatic fluid collection. SPLEEN: 8 cm. No solid or cystic mass. ADRENAL GLANDS: No nodular lesions. KIDNEYS AND URETERS: No hydronephrosis. No gross nephrolithiasis. Normal enhancement pattern of the renal cortex and medulla. Normal urinary excretion into the collecting system. BLADDER: Collapsed. GASTROINTESTINAL TRACT: Abundant stool throughout the large intestine. There is a focal segmental concentric wall thickening measuring 5 cm in maximum length at the hepatic colonic flexure/ascending colon junction. Numerous diverticula in the left hemicolon. No pneumatosis intestinalis. No pneumoperitoneum. No ascites. Appendix is normal.. ABDOMINAL WALL: Small fat-containing umbilical hernia. LYMPH NODES: Mild prominent mesenteric and retroperitoneal lymph nodes measuring less than 8 mm. VASCULAR: Mixed plaques throughout the abdominal aorta wall and iliac arteries without aneurysm or dissection. PELVIC VISCERA: Not fully evaluated. OSSEOUS STRUCTURES: Multilevel spondylosis pronounced at L4-5. No lytic or blastic lesions. No acute fracture. CT/CT abdomen pelvis w IV con IMPRESSION: 2.5 cm lesion/mass, uncinate process of the pancreas, unchanged. Concerning neoplasm, hepatic colonic flexure/ascending colon junction. Intrahepatic and extrahepatic biliary ductal dilatation, mild. Abundant stool without intestinal obstruction pattern. Diverticular disease. Fleischner guidelines were followed. Electronically signed by: Eric Daley MD 04/14/2025 03:57 PM EST Dictated By: Eric Maki MD Signed By: <Electronically signed by Eric Irene MDin OV> 04/14/25 1557 DD/ 1513 TD/TT: 04/14/25 1545 Storage Center Manager: [facility] External Provider IMG CT PROCEDURES Final Result * CT Cervical Spine w/o Contrast (04/14/2025 3:10 PM EST) Anatomical Region Laterality Modality Spine, C-spine Computed Tomogra phy 04/14/2025 3:10 PM EST Narrative 04/14/2025 4:17 PM EST [address] [address] [address] Scan Report Signed Patient: Harriet Valdez MR#: [id number] : 1970 Acct:[id number] Age/Sex: 55 / F ADM Date: 04/14/25 Loc: HO.ED Attending Dr: Ordering Physician: Guillermo Milan MD Date of Service: 04/14/25 Procedure(s): CT cervical spine wo IV con Accession Number(s): [id number] cc: Emilie Davis MD; Guillermo Milan MD Report Number: [id number]: Total DLP = 202.00 mGy-cm Reason for Exam: syncope, fall, head injury EXAMINATION: CT CERVICAL SPINE WITHOUT CONTRAST CLINICAL INFORMATION: Syncope, fall, head injury, neck pain. COMPARISON: 08/07/2018. TECHNIQUE: Spiral CT imaging of the cervical spine performed in axial plane without contrast. Multiplanar reformatted images were constructed from the axial data set. This CT examination was performed using dose optimization techniques as appropriate, variously including the following: *Automated exposure control *Adjustment of mA and/or kV according to patient size (this includes techniques or standardized protocols for targeted exams where dose is matched to indication/reason for exam; i.e. extremities or head) *Use of iterative reconstruction technique FINDINGS: CORONAL ALIGNMENT: -There is a trace levoconvex scoliosis, apex at C6. SAGITTAL ALIGNMENT: -Mild straightening of the normal lordosis. -No significant or traumatic subluxation. C1-C2 AND CRANIOCERVICAL JUNCTION: -Intact and normally aligned. VERTEBRAL BODIES AND FACETS: -There is no fracture, compression deformity, or suspicious bone lesion. There is no evidence of traumatic subluxation. -The facets are normally aligned. There are no facet subluxations or fractures. DISCS: -Moderate disc degeneration present C4-5, C5-6, and C6-7. -Mild to moderate degeneration present at C7-T1. CENTRAL CANAL: -No evidence of high-grade central canal narrowing or large disc herniation allowing for modality limitations. PREVERTEBRAL AND PARAVERTEBRAL SOFT TISSUES: -There is no prevertebral or paravertebral soft tissue swelling, abnormal fluid collection, or edema. -The thyroid gland is normal. -Partially imaged left chest port. LUNG APICES: -Clear bilaterally. CT/CT cervical spine wo IV con IMPRESSION: 1. No CT evidence of acute cervical spine fracture or injury. 2. Mild to moderate degenerative spondylosis without significant C4-C7. Electronically signed by: Micah Hastings MD 04/14/2025 04:14 PM EST Dictated By: Micah Hastings MD Signed By: <Electronically signed by Micah Hastings MD in OV> 04/14/25 1614 DD/ 1510 TD/TT: 04/14/25 1600 Storage Center Manager: Procedure Note Donotuseinterpreter, Image - 04/14/[address] [place] [id number] [address] Scan Report Signed Patient: Harriet ValdezMR#: [id number] : 1970Acct:[id number] Age/Sex: 55 / FADM Date: 04/14/25 Loc: HO.ED Attending Dr: Ordering Physician: Guillermo Milan MD Date of Service: 04/14/25 Procedure(s): CT cervical spine wo IV con Accession Number(s): [id number] cc: Emilie Davis MD; Guillermo Milan MD Report Number: [id number]: Total DLP = 202.00 mGy-cm Reason for Exam: syncope, fall, head injury EXAMINATION: CT CERVICAL SPINE WITHOUT CONTRAST CLINICAL INFORMATION: Syncope, fall, head injury, neck pain. COMPARISON: 08/07/2018. TECHNIQUE: Spiral CT imaging of the cervical spine performed in axial plane without contrast. Multiplanar reformatted images were constructed from the axial data set. This CT examination was performed using dose optimization techniques as appropriate, variously including the following: *Automated exposure control *Adjustment of mA and/or kV according to patient size (this includes techniques or standardized protocols for targeted exams where dose is matched to indication/reason for exam; i.e. extremities or head) *Use of iterative reconstruction technique FINDINGS: CORONAL ALIGNMENT: -There is a trace levoconvex scoliosis, apex at C6. SAGITTAL ALIGNMENT: -Mild straightening of the normal lordosis. -No significant or traumatic subluxation. C1-C2 AND CRANIOCERVICAL JUNCTION: -Intact and normally aligned. VERTEBRAL BODIES AND FACETS: -There is no fracture, compression deformity, or suspicious bone lesion. There is no evidence of traumatic subluxation. -The facets are normally aligned. There are no facet subluxations or fractures. DISCS: -Moderate disc degeneration present C4-5, C5-6, and C6-7. -Mild to moderate degeneration present at C7-T1. CENTRAL CANAL: -No evidence of high-grade central canal narrowing or large disc herniation allowing for modality limitations. PREVERTEBRAL AND PARAVERTEBRAL SOFT TISSUES: -There is no prevertebral or paravertebral soft tissue swelling, abnormal fluid collection, or edema. -The thyroid gland is normal. -Partially imaged left chest port. LUNG APICES: -Clear bilaterally. CT/CT cervical spine wo IV con IMPRESSION: 1. No CT evidence of acute cervical spine fracture or injury. 2. Mild to moderate degenerative spondylosis without significant C4-C7. Electronically signed by: Micah aHstings MD 04/14/2025 04:14 PM EST Dictated By: Micah Hastings MD Signed By: <Electronically signed by Micah Hastings MD in OV> 04/14/25 1614 DD/ 1510 TD/TT: 04/14/25 1600 Storage Center Manager: [facility] External Provider IMG CT PROCEDURES Final Result * CT Head w/o Contrast (04/14/2025 3:10 PM EST) Only the most recent of2 resultswithin the time period is included. Anatomical Region Laterality Modality Head, Neck Computed Tomogra phy 04/14/2025 3:10 PM EST Narrative 04/14/2025 4:15 PM EST [place] [id number] [address] Scan Report Signed Patient: Harriet Valdez MR#: [id number] : 1970 Acct:[id number] Age/Sex: 55 / F ADM Date: 04/14/25 Loc: HO.ED Attending Dr: Ordering Physician: Guillermo Milan MD Date of Service: 04/14/25 Procedure(s): CT head/brain wo IV con Accession Number(s): [id number] cc: Emilie Davis MD; Guillermo Milan MD Report Number: [id number]: Total DLP = 524.00 mGy-cm Reason for Exam: syncope, fall, head injury EXAMINATION: CT HEAD WITHOUT CONTRAST CLINICAL INFORMATION: Syncope, fall, head injury COMPARISON: CT head 03/22/2025 TECHNIQUE: Contiguous axial imaging was performed from [...] head) *Use of iterative reconstruction technique FINDINGS: There is no evidence of acute intracranial hemorrhage or edematous large vessel territorial infarction. No abnormal mass effect or midline shift is seen. Morin to white matter differentiation is well preserved. No abnormal extra-axial fluid collections are identified. The ventricles are normal in size. No abnormal attenuation in the brain parenchyma. Redemonstrated is low positioning of the cerebellar tonsils. Bilateral globes are intact. No acute calvarial fracture.. Mild right maxillary sinus mucosal thickening. Paranasal sinuses otherwise and mastoid air cells are well-aerated. CT/CT head/brain wo IV con IMPRESSION: No CT evidence of acute intracranial hemorrhage or edematous territorial infarction. Electronically signed by: Huseyin Cerna MD 04/14/2025 04:11 PM EST Dictated By: Huseyin Cerna MD Signed By: <Electronically signed by Huseyin Cerna MD in OV> 04/14/25 1611 DD/ 1510 TD/TT: 04/14/25 1600 Storage Center Manager: RAVINDRA Procedure Note Donotuseinterpreter, Image - 04/14/[address] [place] [id number] [address] Scan Report Signed Patient: Harriet ValdezMR#: [id number] : 1970Acct:[id number] Age/Sex: 55 / FADM Date: 04/14/25 Loc: HO.ED Attending Dr: Ordering Physician: Guillermo Milan MD Date of Service: 04/14/25 Procedure(s): CT head/brain wo IV con Accession Number(s): [id number] cc: Emilie Davis MD; Guillermo Milan MD Report Number: [id number]: Total DLP = 524.00 mGy-cm Reason for Exam: syncope, fall, head injury EXAMINATION: CT HEAD WITHOUT CONTRAST CLINICAL INFORMATION: Syncope, fall, head injury COMPARISON: CT head 03/22/2025 TECHNIQUE: Contiguous axial imaging was performed from [...] head) *Use of iterative reconstruction technique FINDINGS: There is no evidence of acute intracranial hemorrhage or edematous large vessel territorial infarction. No abnormal mass effect or midline shift is seen. Morin to white matter differentiation is well preserved. No abnormal extra-axial fluid collections are identified. The ventricles are normal in size. No abnormal attenuation in the brain parenchyma. Redemonstrated is low positioning of the cerebellar tonsils. Bilateral globes are intact. No acute calvarial fracture.. Mild right maxillary sinus mucosal thickening. Paranasal sinuses otherwise and mastoid air cells are well-aerated. CT/CT head/brain wo IV con IMPRESSION: No CT evidence of acute intracranial hemorrhage or edematous territorial infarction. Electronically signed by: Huseyin Cerna MD 04/14/2025 04:11 PM EST Dictated By: Huseyin Cerna MD Signed By: <Electronically signed by Huseyin Cerna MD in OV> 04/14/25 1611 DD/ 1510 TD/TT: 04/14/25 1600 Storage Center Manager: RAVINDRA [facility] External Provider IMG CT PROCEDURES Final Result * Urinalysis w/reflex microscopic (04/14/2025 2:49 PM EST) Only the most recent of2 resultswithin the time period is included. Color Urine Yellow [facility] Appearance Urine Clear [facility] PH 5.5 5.0 - 9.0 [facility] Glucose Urine UA Negative Negative mg/dL [facility] Urine Blood Negative Negative [facility] Specific [place] - Urine 1.020 1.005 - 1.025 [facility] Urine Protein Trace Neg-Trace mg/dL [facility] Urine Ketones Negative Negative mg/dL [facility] Nitrite Urine Negative Negative [facility] Leukocyte Esterase Urine Negative Negative [facility] 04/14/2025 2:49 PM EST 04/14/2025 2:52 PM EST Narrative [facility] - 04/14/2025 2:59 PM EST [id number], Clean Catch Generic External Data Provider LAB URINE ORDERAB LES Final Result [facility] [address] [place] [phone] * Blood Culture (Second) (03/31/2025 5:51 PM EST) Blood Venous blood specimen / Unknown 03/31/2025 5:51 PM EST 03/31/2025 6:15 PM EST Comment:Blood Narrative [facility] - 04/05/2025 8:16 PM EST Blood Culture (Second) No growth after 5 days. Specimen Source: Blood Generic External Data Provider LAB MICROBIOLOGY - GENERAL ORDERABLES Final Result Performing Organization Address [facility] de Phone Number [facility] [address] [place] [phone] * Slide Review (03/31/2025 5:24 PM EST) Slide Review MANUAL DIFF [facility] 03/31/2025 5:24 PM EST 03/31/2025 5:35 PM EST Generic External Data Provider LAB BLOOD ORDERAB LES Final Result Performing Organization Address [facility] Phone Number [facility] [address] [place] [phone] * Blood Culture (First) (03/31/2025 5:24 PM EST) Blood Venous blood specimen / Unknown 03/31/2025 5:24 PM EST 03/31/2025 5:43 PM EST Comment:Blood Narrative [facility] - 04/05/2025 7:44 PM EST Blood Culture (First) No growth after 5 days. Specimen Source: Blood Generic External Data Provider LAB MICROBIOLOGY - GENERAL ORDERABLES Final Result Performing Organization Address [facility] de Phone Number [facility] [address] [place] [phone] * (ABNORMAL) Complete Blood Count Manual Diff (03/31/2025 5:24 PM EST) White Blood Count 4.9 4.8 - 10.8 X10*3/uL [facility] Red Blood Count 3.92(L) 4.20 - 5.50 X10*6/uL [facility] Hemoglobin 11.4(L) 12.0 - 16.0 g/dl [facility] Hematocrit 33.9(L) 37.0 - 47.0 % [facility] Mean Corpuscular Volume 86.5 80.0 - 98.0 fL [facility] Mean Corpuscular Hemoglobin 29.1 27.0 - 33.0 pg [facility] Mean Corpuscular HGB Conc 33.6 31.0 - 35.0 g/dl [facility] Red Cell Distribution Width 13.2 11.0 - 16.0 % [facility] Platelet Count 266 160 - 400 X10*3/uL [facility] Mean Platelet Volume 8.8(L) 9.4 - 12.3 fL [facility] NRBC Pct Auto 0.0 0.0 - 0.2 /100WBC [facility] NRBC Abs Auto 0.000 0.0 - 0.012 X10*3/uL [facility] Neutrophils % Manual 13(L) 45 - 73 % [facility] Band Neutrophils Percent 9(H) 3 - 5 % [facility] Lymphocytes Percent Manual 63(H) 20 - 40 % [facility] Atypical Lymphs Percent Manual 3 0 - 6 % [facility] Monocytes Percent Manual 11 2 - 11 % [facility] EOSINOPHILS % MANUAL 1 0 - 4 % [facility] NEUTROPHILS ABSOLUTE MANUAL 1.1(L) 2.0 - 8.3 X10*3/uL [facility] LYMPHOCYTES ABSOLUTE MANUAL 3.1 1.2 - 4.9 X10*3/uL [facility] Atypical Lymph Absolute Manual 0.1 x10*3/uL [facility] MONOCYTES ABSOLUTE MANUAL 0.5 0.1 - 1.2 X10*3/uL [facility] Platelet Estimate NORMAL NORMAL [facility] Platelet Morphology Comment NORMAL [facility] RBC Morphology NOTED [facility] [place] Cells 1+ (0-2) /OIF [facility] 03/31/2025 5:24 PM EST 03/31/2025 5:35 PM EST us Generic External Data Provider LAB BLOOD ORDERAB LES Final Result [facility] [address] [place] [phone] * (ABNORMAL) CBC auto differential (03/31/2025 5:24 PM EST) Only the most recent of3 resultswithin the time period is included. White Blood Count 4.9 4.8 - 10.8 X10*3/uL [facility] Red Blood Count 3.92(L) 4.20 - 5.50 X10*6/uL [facility] Hemoglobin 11.4(L) 12.0 - 16.0 g/dl [facility] Hematocrit 33.9(L) 37.0 - 47.0 % [facility] Mean Corpuscular Volume 86.5 80.0 - 98.0 fL [facility] Mean Corpuscular Hemoglobin 29.1 27.0 - 33.0 pg [facility] Mean Corpuscular HGB Conc 33.6 31.0 - 35.0 g/dl [facility] Red Cell Distribution Width 13.2 11.0 - 16.0 % [facility] Platelet Count 266 160 - 400 X10*3/uL [facility] Mean Platelet Volume 8.8(L) 9.4 - 12.3 fL [facility] Neutrophils Percent Auto 23.3(L) 45 - 73 % [facility] Imm Gran Pct Auto 0.2 0.0 - 0.4 % [facility] Lymphocytes Percent Auto 48.7(H) 20 - 40 % [facility] Monocytes Percent Auto 24.6(H) 2 - 11 % [facility] Eosinophils Percent Auto 2.4 0 - 4 % [facility] Basophils Percent Auto 0.8 0 - 2 % [facility] NRBC Pct Auto 0.0 0.0 - 0.2 /100WBC [facility] Neutrophils Absolute Auto 1.1(L) 2.0 - 8.3 x10*3/uL [facility] Imm Gran Abs Auto 0.01 0.00 - 0.03 X10*3/uL [facility] Lymphocytes Absolute Auto 2.4 1.2 - 4.9 X10*3/uL [facility] Monocytes Absolute Auto 1.2 0.1 - 1.2 X10*3/uL [facility] Eosinophils Absolute Auto 0.1 0.0 - 0.4 X10*3/uL [facility] Basophils Absolute Auto 0.0 0.0 - 0.2 X10*3/uL [facility] NRBC Abs Auto 0.000 0.0 - 0.012 X10*3/uL [facility] 03/31/2025 5:24 PM EST 03/31/2025 5:35 PM EST us Generic External Data Provider LAB BLOOD ORDERAB LES Edited Result - Final Performing Organization Address City/[facility]/ZIP Co de Phone Number [facility] [address] [place] [phone] * Lipase (03/31/2025 5:24 PM EST) Only the most recent of4 resultswithin the time period is included. Lipase 25 8 - 78 U/L [facility] 03/31/2025 5:24 PM EST 03/31/2025 5:35 PM EST us Generic External Data Provider LAB BLOOD ORDERAB LES Final Result Performing Organization Address City/[facility]/ZIP Co de Phone Number [facility] [address] [place] [phone] * Lactic Acid (03/31/2025 5:24 PM EST) Only the most recent of3 resultswithin the time period is included. Lactic Acid 0.7 0.5 - 2.0 mmol/L [facility] 03/31/2025 5:24 PM EST 03/31/2025 5:35 PM EST us Generic External Data Provider LAB BLOOD ORDERAB LES Final Result [facility] [address], [place] [phone] * (ABNORMAL) Comprehensive Metabolic Panel (03/31/2025 5:24 PM EST) Sodium 138 135 - 145 mmol/L [facility] Potassium 3.8 3.3 - 5.1 mmol/L [facility] Chloride 103 96 - 108 mmol/L [facility] Carbon Dioxide 25 22 - 29 mmol/L [facility] Anion Gap 14 12 - 20 [facility] Urea Nitrogen (BUN) 6(L) 9 - 16 mg/dL [facility] Creatinine, Serum 0.59 0.5 - 1.4 mg/dL [facility] Creatinine Clr Calc Pharmacy 75.4 [facility] Comment:Provided height and weight: 165.1 cm,44.9 kg.eGFR (calculated from the MDRD study equation) and eCrCl(calculated from the Cockcroft-Gault equation) are based ondifferent parameters and may not yield comparable results.If eCrCl result is absurd, please check patient'sheight/weight. Estimated Glomerular Filt Rate >60 [facility] Comment:Chronic Kidney Disea se: Estimated GFR < 60 mL/min/1.30g9Pzftvm Kidney Disease: Estimated GFR < 15 mL/min/1.73m2 Glucose 85 60 - 115 mg/dL [facility] Calcium 8.8 8.4 - 10.2 mg/dL [facility] Bilirubin, Total 0.2 0.0 - 1.0 mg/dL [facility] Aspartate Amino Transferase 15 5 - 31 U/L [facility] Alanine Aminotransferase 6 0 - 31 U/L [facility] Total Protein 6.3(L) 6.5 - 8.0 g/dL [facility] Albumin Level 3.4(L) 3.5 - 5.0 g/dL [facility] Alkaline Phosphatase 71 39 - 117 U/L [facility] 03/31/2025 5:24 PM EST 03/31/2025 5:35 PM EST us Generic External Data Provider LAB BLOOD ORDERAB LES Final Result Performing Organization Address City/[facility]/ZIP Co de Phone Number [facility] [address] [place] [phone] * (ABNORMAL) Urinalysis, Complete, with Reflex to Culture (03/22/2025 1:42 PM EST) Color Urine Yellow [facility] Appearance Urine Clear [facility] PH 7.5 5.0 - 9.0 [facility] Glucose Urine UA Negative Negative mg/dL [facility] Urine Blood Negative Negative [facility] Specific [place] - Urine 1.010 1.005 - 1.025 [facility] Urine Protein Negative Neg-Trace mg/dL [facility] Urine Ketones Negative Negative mg/dL [facility] Nitrite Urine Negative Negative [facility] Leukocyte Esterase Urine Trace(A) Negative [facility] RBC Urine 0-2 0 - 2 /HPF [facility] Urine WBC 0-5 0 - 5 /HPF [facility] Urine Squamous Epithelial Cell 3-5 0 - 2 /HPF [facility] Urine Bacteria None Seen None Seen [facility] Hyaline Casts, Urine 0-2 0 - 2 /LPF [facility] 03/22/2025 1:42 PM EST 03/22/2025 1:51 PM EST Narrative [facility] - 03/22/2025 2:03 PM EST [id number], Clean Catch us Generic External Data Provider LAB URINE ORDERAB LES Final Result Performing Organization Address City/[facility]/ZIP Co de Phone Number [facility] [address] [place] [phone] * High Sensitivity Troponin I (03/22/2025 11:26 AM EST) TROPONIN I HIGH SENSITIVITY 3.2 <3.5 - 17.0 ng/L [facility] Comment:The [place] high sens itivity Troponin-I results should beused in conjunction with other diagnostic information suchas ECG, clinical observations and information, and patientsymptoms to aid in the diagnosis of NC. 03/22/2025 11:2 6 AM EST 03/22/2025 11:37 AM EST Generic External Data Provider LAB BLOOD ORDERAB LES Final Result Performing Organization Address [facility] Co de Phone Number [facility] [address] [place] [phone] * SARS-CoV-2 RNA, Influenza A/B, and RSV RNA, Ql NAAT (03/22/2025 11:26 AM EST) Influenza A PCR NEGATIVE Negative [facility] Influenza B PCR NEGATIVE Negative [facility] Resp Syncy Virus RNA Qual PCR NEGATIVE Negative [facility] SARS COV2 PCR NEGATIVE Negative [facility] [...] use by authorized laboratories.Testing performed on the [employer]gence GeneXpert utilizingreal-time RT-PCR.All SARS CoV2 and positive influenza A/B results arereported to [facility]. 03/22/2025 11:2 6 AM EST 03/22/2025 11:37 AM EST Generic External Data Provider LAB MICROBIOLOGY - GENERAL ORDERABLES Final Result Performing Organization Address [facility] Co de Phone Number [facility] [address] [place] [phone] * Magnesium (03/22/2025 11:26 AM EST) [facility] Magnesium 2.1 1.6 - 2.6 mg/dL [facility] 03/22/2025 11:2 6 AM EST 03/22/2025 11:37 AM EST Generic External Data Provider LAB BLOOD ORDERAB LES Final Result Performing Organization Address [facility] de Phone Number [facility] [address] [place] [phone] * (ABNORMAL) Hepatic Function Panel (03/22/2025 11:26 AM EST) [facility] Bilirubin, Total 0.8 0.0 - 1.0 mg/dL [facility] Bilirubin, Direct 0.2 0.0 - 0.5 mg/dL [facility] Aspartate Amino Transferase 30 5 - 31 U/L [facility] Alanine Aminotransferase 33(H) 0 - 31 U/L [facility] Total Protein 7.8 6.5 - 8.0 g/dL [facility] Albumin Level 4.5 3.5 - 5.0 g/dL [facility] Alkaline Phosphatase 100 39 - 117 U/L [facility] 03/22/2025 11:2 6 AM EST 03/22/2025 11:37 AM EST Generic External Data Provider LAB BLOOD ORDERAB LES Final Result Performing Organization Address [facility] de Phone Number [facility] [address] [place] [phone] * (ABNORMAL) Basic Metabolic Panel (03/22/2025 11:26 AM EST) [facility] Sodium 137 135 - 145 mmol/L [facility] Potassium 3.8 3.3 - 5.1 mmol/L [facility] Chloride 106 96 - 108 mmol/L [facility] Carbon Dioxide 21(L) 22 - 29 mmol/L [facility] Anion Gap 14 12 - 20 [facility] Urea Nitrogen (BUN) 12 9 - 16 mg/dL [facility] Creatinine, Serum 0.68 0.5 - 1.4 mg/dL [facility] Creatinine Clr Calc Pharmacy 65.0 [facility] Comment:Provided height and weight: 165.1 cm,44.6 kg.eGFR (calculated from the MDRD study equation) and eCrCl(calculated from the Cockcroft-Gault equation) are based ondifferent parameters and may not yield comparable results.If eCrCl result is absurd, please check patient'sheight/weight. Estimated Glomerular Filt Rate >60 [facility] Comment:Chronic Kidney Disea se: Estimated GFR < 60 mL/min/1.30b7Celhdd Kidney Disease: Estimated GFR < 15 mL/min/1.73m2 Glucose 111 60 - 115 mg/dL [facility] Calcium 9.7 8.4 - 10.2 mg/dL [facility] 03/22/2025 11:2 6 AM EST 03/22/2025 11:37 AM EST us Generic External Data Provider LAB BLOOD ORDERAB LES Final Result Performing Organization Address City/State/[facility] Co de Phone Number [facility] [address] [place] [address] [phone] * IR US Guide - Venous Access (03/16/2025 8:30 AM EST) Anatomical Region Laterality Modality X-Ray Angiograph y 03/16/2025 8:30 AM EST Narrative 03/30/2025 10:46 AM EST [address] [address] Interventional Radiology Rpt Signed Patient: Harriet Valdez MR#: [id number] : 1970 Acct:[id number] Age/Sex: 55 / F ADM Date: 03/16/25 Loc: HO.SSS Attending Dr: Vern Fuentes MD Ordering Physician: Vern Fuentes MD Date of Service: 03/16/25 Procedure(s): IR us guide venous access Accession Number(s): [id number] cc: Emilie Davis MD; Vern Fuentes MD Reason for Exam: FOR PORT ACCESS See fluoroscopy IR report. Electronically signed by: Jimmy Pedroza MD 03/30/2025 10:43 AM EST RP Dictated By: Jimmy Pedroza MD Signed By: <Electronically signed by Jimmy Pedroza MD in OV> 03/30/25 1043 DD/ 9 TD/TT: 03/16/25 1040 Storage Center Manager: MADINA Procedure Note Donotuseinterpreter, Image - 03/30/2025 [place] [address] Interventional Radiology Rpt Signed Patient: Harriet ValdezMR#: [id number] : 1970Acct:[id number] Age/Sex: 55 / FADM Date: 03/16/25 Loc: HO.[facility] Attending Dr: Vern Fuentes MD Ordering Physician: Vern Fuentes MD Date of Service: 03/16/25 Procedure(s): IR us guide venous access Accession Number(s): [id number] cc: Emilie Davis MD; Vern Fuentes MD Reason for Exam: FOR PORT ACCESS See fluoroscopy IR report. Electronically signed by: Jimmy Pedroza MD 03/30/2025 10:43 AM EST RP Dictated By: Jimmy Pedroza MD Signed By: <Electronically signed by Jimmy Pedroza MD in OV> 03/30/25 1043 DD/ 9 TD/TT: 03/16/25 1040 Storage Center Manager: [facility] External Provider IMG IR PROCEDURES Final Result * IR cvc insert tunnel w prt/liquor bridge operator helper (03/16/2025 8:20 AM EST) Anatomical Region Laterality Modality X-Ray Angiograph y 03/16/2025 8:20 AM EST Narrative 03/30/2025 10:[address] [address] Interventional Radiology Rpt Signed Patient: Harriet Valdez MR#: [id number] : 1970 Acct:[id number] Age/Sex: 55 / F ADM Date: 03/16/25 Loc: HO.SSS Attending Dr: Vern Fuentes MD Ordering Physician: Vern Fuentes MD Date of Service: 03/16/25 Procedure(s): IR cvc insert tunnel w prt/liquor bridge operator helper Accession Number(s): [id number] cc: Emilie Davis MD; Vern Fuentes MD [...] the needle and needle withdrawn. A 5 Kyrgyz dilator was placed and the entire unit [...] fluoroscopy and placed in IVC. The 5 Kyrgyz catheter was then exchanged for a syringe [...] widely patent left jugular vein. Approximately 6 Kyrgyz 26 cm long slim port was inserted through a left jugular approach. There were no immediate complications or bleeding seen. IR/IR cvc insert tunnel w prt/liquor bridge operator helper IMPRESSION: Successful ultrasound and fluoroscopy-guided placement of a left 6.6 Kyrgyz 23 seen along the left Port-A-Cath without immediate comp occasions. The PORT is ready to use. Fluoroscopy time: 0.6 minutes. Dose: 1.7 mGy/ cm. Electronically signed by: Jimmy Pedroza MD 03/30/2025 10:42 AM [facility] Dictated By: Jimmy Pedroza MD Signed By: <Electronically signed by Jimmy Pedroza MD in OV> 03/30/25 1042 DD/ 0820 TD/TT: 03/16/25 1040 Storage Center Manager: [facility] Procedure Note Donotuseinterpreter, Image - 03/30/2025 [place] [address] Interventional Radiology Rpt Signed Patient: Harriet ValdezMR#: [id number] : 1970Acct:[id number] Age/Sex: 55 / FADM Date: 03/16/25 Loc: HO.[facility] Attending Dr: Vern Fuentes MD Ordering Physician: Vern Fuentes MD Date of Service: 03/16/25 Procedure(s): IR cvc insert tunnel w prt/liquor bridge operator helper Accession Number(s): [id number] cc: Emilie Davis MD; Vern Fuentes MD [...] the needle and needle withdrawn. A 5 Kyrgyz dilator was placed and the entire unit [...] fluoroscopy and placed in IVC. The 5 Kyrgyz catheter was then exchanged for a syringe [...] widely patent left jugular vein. Approximately 6 Kyrgyz 26 cm long slim port was inserted through a left jugular approach. There were no immediate complications or bleeding seen. IR/IR cvc insert tunnel w prt/liquor bridge operator helper IMPRESSION: Successful ultrasound and fluoroscopy-guided placement of a left 6.6 Kyrgyz 23 seen along the left Port-A-Cath without immediate comp occasions. The PORT is ready to use. Fluoroscopy time: 0.6 minutes. Dose: 1.7 mGy/ cm. Electronically signed by: Jimmy Pedroza MD 03/30/2025 10:42 AM EST Dictated By: Jimmy Pedroza MD Signed By: <Electronically signed by Jimmy Pedroza MD in OV> 03/30/25 1042 DD/ 0820 TD/TT: 03/16/25 1040 Storage Center Manager: [facility] External Provider IMG IR PROCEDURES Final Result * Prothrombin Time-INR (03/16/2025 7:45 AM EST) Prothrombin Time 11.4 10.9 - 12.4 SEC [facility] INTERNATIONAL NORM RATIO 1.0 0.9 - 1.1 [facility] Comment:INTERNATIONAL NORMAL IZED RATIO (INR) REFERENCE [...] Provider LAB BLOOD ORDERAB LES Final Result [facility] [address] [place] [phone] * Lower Extremity Venous Duplex (02/25/2025 3:27 PM EDT) 02/25/2025 3:27 PM EDT Narrative [facility] - 02/25/2025 3:48 PM EDT [address] [address] Ultrasound Report Signed Patient: Harriet Valdez MR#: [id number] : 1970 Acct:[id number] Age/Sex: 55 / F ADM Date: 02/25/25 Loc: HO.US Attending Dr: Ann-Marie Muhammad MD Ordering Physician: Ann-Marie Muhammad MD Date of Service: 02/25/25 Procedure(s): US venous duplex LE LT Accession Number(s): [id number] cc: Emilie Davis MD; Ann-Marie Muhammad MD [...] 02/25/25 1546 DD/ 1527 TD/TT: 02/25/25 1537 Storage Center Manager: Procedure Note Donotuseinterpreter, Image - 02/25/[address] [address] Ultrasound Report Signed Patient: Harriet ValdezMR#: [id number] : 1970Acct:[id number] Age/Sex: 55 / FADM Date: 02/25/25 Loc: HO.US Attending Dr: Ann-Marie Muhammad MD Ordering Physician: Ann-Marie Muhammad MD Date of Service: 02/25/25 Procedure(s): US venous duplex LE LT Accession Number(s): [id number] cc: Emilie Davis MD; Ann-Marie Muhammad MD [...] 02/25/25 1546 DD/ 1527 TD/TT: 02/25/25 1537 Storage Center Manager: us Ann-Marie Muhammad MD CV VASCULAR PROCEDURES Final Result [facility] [address] [place] [address] * XR Tibia Fibula 2 Views Left (02/25/2025 3:14 PM EDT) Anatomical Region Laterality Modality Lower Extremities, Lower Leg Left Rad iographic Imaging 02/25/2025 3:14 PM EDT Narrative 02/25/2025 3:28 PM EDT [address] [address] XRay Report Signed Patient: Harriet Valdez MR#: [id number] : 1970 Acct:[id number] Age/Sex: 55 / F ADM Date: 02/25/25 Loc: HO.US Attending Dr: Ann-Marie Muhammad MD Ordering Physician: Ann-Marie Muhammad MD Date of Service: 02/25/25 Procedure(s): XR tibia fibula LT 2V Accession Number(s): [id number] cc: Emilie Davis MD; Ann-Marie Muhammad MD [...] 02/25/25 1525 DD/ 1514 TD/TT: 02/25/25 1521 Storage Center Manager: Procedure Note Donotcammieinterpreter, Image - 02/25/[address] [address] XRay Report Signed Patient: Harriet ValdezMR#: [id number] : 1970Acct:[id number] Age/Sex: 55 / FADM Date: 02/25/25 Loc: HO.US Attending Dr: Ann-Marie Muhammad MD Ordering Physician: Ann-Marie Muhammad MD Date of Service: 02/25/25 Procedure(s): XR tibia fibula LT 2V Accession Number(s): [id number] cc: Emilie Davis MD; Ann-Marie Muhammad MD [...] 02/25/25 1525 DD/ 1514 TD/TT: 02/25/25 1521 Storage Center Manager: Ann-Marie Muhammad MD IMG XR PROCEDURES Final Resul t * CT Chest w/ Contrast (02/23/2025 2:19 PM EDT) Anatomical Region Laterality Modality Body, Chest Computed Tomogra phy Historical Provider IMG CT PROCEDURES Final R esult * (ABNORMAL) Lactate Dehydrogenase (LD) (02/18/2025 3:28 PM EDT) Lactate Dehydrogenase 743(H) 122 - 220 U/L [facility] 02/18/2025 3:28 PM EDT 02/18/2025 3:28 PM EDT Generic External Data Provider LAB BLOOD ORDERAB LES Final Result [facility] [address] [place] [phone] * (ABNORMAL) Amylase (02/18/2025 3:28 PM EDT) Amylase 113(H) 28 - 100 U/L [facility] 02/18/2025 3:28 PM EDT 02/18/2025 3:28 PM EDT us Generic External Data Provider LAB BLOOD ORDERAB LES Final Result Performing Organization Address City/State/RUST Co de Phone Number [facility] [address] [place] [phone] * EGD (02/18/2025 2:59 PM EDT) Anatomical Region Laterality Modality Endoscopy Historical Provider MD ENDOSCOPY PROCEDURE ORDER TATUM Final Result * MR Lumbar Spine w/o Contrast (02/09/2025 6:20 PM EDT) Anatomical Region Laterality Modality Spine, L-spine Magnetic Resonan ce 02/09/2025 6:20 PM EDT Narrative 02/10/2025 7:18 AM EDT [address] [address] Magnetic Resonance Report Signed Patient: Harriet Valdez MR#: [id number] : 1970 Acct:[id number] Age/Sex: 54 / F ADM Date: 02/09/25 Loc: HO.MRI Attending Dr: Nakul Velasco MD Ordering Physician: Nakul Velasco MD Date of Service: 02/09/25 Procedure(s): MR lumbar spine wo con Accession Number(s): [id number] cc: Emilie Davis MD; Nakul Velasco MD [...] 02/10/25 0715 DD/ 1820 TD/TT: 02/09/25 1845 Storage Center Manager: Procedure Note Donotuseinterpreter, Image - 02/10/2025 [place] [address] Magnetic Resonance Report Signed Patient: Harriet Valdez#: [id number] : 1970Acct:[id number] Age/Sex: 54 / FADM Date: 02/09/25 Loc: HO.MRI Attending Dr: Nakul Velasco MD Ordering Physician: Nakul Velasco MD Date of Service: 02/09/25 Procedure(s): MR lumbar spine wo con Accession Number(s): [id number] cc: Emilie Davis MD; Nakul Velasco MD [...] Eric Irene MDin OV> 02/10/25 0715 DD/ 182 TD/TT: 02/09/25 184 Storage Center Manager: [facility] External Provider IMG MRI PROCEDURES Final Result * (ABNORMAL) CA 19-9 (02/01/2025 11:57 AM EDT) CA 19-9 671(A) <34 U/mL [facility] Comment:This test was perfor med using the Siemenschemiluminescent method. Values obtained fromdifferent assay methods cannot be usedinterchangeably. CA 19-9 levels, regardless ofvalue, should not be interpreted as absoluteevidence of the presence or absence of disease.THIS TEST WAS PERFORMED AT:[facility] [place] [phone] MALDONADO MD 02/01/2025 11:5 7 AM EDT 02/01/2025 11:57 AM EDT us Generic External Data Provider LAB BLOOD ORDERAB LES Final Result Performing Organization Address [facility]/ZIP Co de Phone Number [facility] [address] [place] [phone] * HIV-1 RNA, Quantitative, Real-Time PCR (02/01/2025 11:57 AM EDT) HIV RNA PCR Qn Copies NOT DETECTED NOT DETECTED copies/mL [facility] HIV RNA PCR Qn Log Copies NOT DETECTED NOT DETECTED [facility] Comment:Result Units: Log co pies/mLThis test was performed using Real-Time Polymerase ChainReaction.Reportable Range: 20 copies/mL to 10,000,000 copies/mL(1.30 log copies/mL to 7.00 log copies/mL).THIS TEST WAS PERFORMED AT:[facility] [address] [phone] MALDONADO MD 02/01/2025 11:5 7 AM EDT 02/01/2025 11:57 AM EDT Emilie Davis MD LAB BLOOD ORDERABLES Final Result Performing Organization Address [facility]/RUST Co de Phone Number [facility] [address] [place] [phone] * Homocysteine (02/01/2025 11:57 AM EDT) Pathologist [facility] Homocysteine 7.4 < or = 13.4 umol/L [facility] Comment:Homocysteine is incr eased by functional deficiency offolate or vitamin B12. Testing for methylmalonic aciddifferentiates between these deficiencies. Other causesof increased homocysteine include renal failure, folateantagonists such as methotrexate and phenytoin, andexposure to nitrous oxide.Salvador Stevens et al., [employer] Med. 1999;131(5):331-9.THIS TEST WAS PERFORMED AT:[facility] [address] [phone] MALDONADO MD 02/01/2025 11:5 7 AM EDT 02/01/2025 11:57 AM EDT Generic External Data Provider LAB BLOOD ORDERAB LES Final Result Performing Organization Address [facility]/ZIP Co de Phone Number [facility] [address] [place] [phone] [phone] * (ABNORMAL) Lipid Panel, Standard (07/24/2024 1:36 PM EDT) Triglycerides 141 <150 mg/dL [facility] Comment:Desirable Triglyceri de: less than 150 mg/dLBorderline High Triglyceride 150-199 mg/dLHigh Triglyceride: 200-499 mg/dLVery High Triglyceride: greater than or equal to 5OO mg/dL Cholesterol 205(H) <200 mg/dL [facility] Comment:Desirable Cholestero l: less than 200 mg/dLBorderline High Cholesterol: 200-239 mg/dLHigh Cholesterol: greater than 239 mg/dL LDL Cholesterol Calculated 114(H) <100 mg/dL [facility] Comment:Desirable LDL: less than 100 mg/dLNear Optimal/Above Optimal LDL: 110- 129 mg/dLBorderline High LDL: 130-159 mg/dLHigh LDL: 160-189 mg/dLVery High LDL: greater than or equal to 190 mg/dL HDL Cholesterol 63 >40 mg/dL [facility] Comment:Desirable HDL: great er than 40 mg/dL Note: This HDL assay may give artificially low results in patients with liver disease. 07/24/2024 1:36 PM EDT 07/24/2024 4:20 PM EDT Generic External Data Provider LAB BLOOD ORDERAB LES Final Result Performing Organization Address [facility]/ZIP Co de Phone Number [facility] [address] [place] [address] [phone] * HPV mRNA E6/E7 w/Reflex to HPV Genotypes 16, 18/45 (03/22/2023 11:30 AM EST) HPV nRNA E6/E7 Not Detected Not Detected [facility] Comment:Methodology: Transcr iption-Mediated AmplificationThis assay detects E6/E7 viral messenger RNA (mRNA) from 14high-risk HPV types (16,18,31,33,35,39,45,51,52,56,58,59,66,68).Cervical sources are required for HPV testing.If a vaginal source from a patient who has had atotal hysterectomy with removal of cervix wassubmitted, please contact the testing laboratoryfor alternative testing options.For additional information, please refer tohttp://education.GeekStatus/faq/UAT556t9(This link if provided for information/educational purposes only.)THIS TEST WAS PERFORMED AT:[facility] [place] [phone] MALDONADO MD HPV mRNA E6/E7 TNP [facility] HPV 16 RNA TNP [facility] HPV 18/45 RNA [facility] 03/22/2023 11:3 0 AM EST 03/25/2023 12:20 PM EST Emilie Davis MD LAB CYTOLOGY ORDERABLES Fi nal Result [facility] [address] [place] [phone] * Pap Smear (03/22/2023 11:30 AM EST) 03/22/2023 11:3 0 AM EST 03/25/2023 12:20 PM EST Narrative [facility] - 04/11/2023 11:26 AM EST ----- ------- Name: Harriet Valdez Age/Sex: 53/F : 1970 [id number] [id number] Attend Dr: RADHA VILLAREAL MD Re03/22/23 Status: DEP REF Location: [facility] Disch: ----- ------- SPEC : [id number] RECD: 03/25/23 STATUS: JANIE DUNLAP NUM: [id number] AMBREEN: 03/22/[address]: Emilie Davis MD ENTERED: 03/25/231418 SP TYPE: Pap Smr OTHR DR: ORDERED: Pap Smear Interpretation Satisfactory for evaluation. Negative for intraepithelial lesion or malignancy. HPV mRNA E6/E7: NOT DETECTED This assay detects E6/E7 viral messenger RNA (mRNA) from 14 high-risk HPV types (16, 18, 31, 33, 35, 39, 45, 51, 52, 56, 58, 59, 66, 68) HPV testing performed by [facility], [place], [place]. See reference laboratory portion of the EMR for entire report. Clinical Information LMP: Unknown date Previous PAP test: Unknown date, WNL Other history: Pt on testosterone, surgical post menopause Material Received ThinPrep-Cervical ----- ------- Signed (signature on file) SERENA Alejandro (ASCP) 04/11/23 1126 ----- ------- END OF REPORT Emilie Davis MD LAB CYTOLOGY ORDERABLES Fi nal Result [facility] [address] [place] [phone] * Colonoscopy (01/30/2018) Colonoscopy normal Historical Provider HEALTH MAINTENANCE Final Result from Last 3 Months or Most Recently Relevant to Health Maintenance Insurance [facility] C[facility] * Guarantor: Harriet Valdez Account Type Relation to Patient Date of Phone Billing Address Personal/Family Self [facility] [address] [place] [address] * Guarantor: Harriet Valdez Account Type Relation to Patient Date of Phone Billing Address Personal/Family Self [facility] [place] [address] * Guarantor: Harriet Valdez Account Type Relation to Patient Date of Phone Billing Address Personal/Family Self Rani [address] [place] [address] Advance Directives Documents on File Type Date Recorded Patient Food Service Steward Expl anation Advance Directives and Living Will 03/16/2024 Health Care Proxy 03/16/24 Care Teams Measurement Psychologist Relationship Specialty Start Date End Date Ryan, MD Emilie [address] [place] [address] PCP - General Family Medicine 05/13/18 Pam Aida [address] [place] [phone] Gastroenterology 05/26/24 Fred Castanon [address] [place] [address] Cardiology 07/21/24 Ele Mar MD [address] [place] [address] Hematology and Oncology 02/22/25 Marina Brown MD Rheumatology 02/10/25 Costa Miller MD Attending Hepatobiliary & Pancreatic Surgeon Division of Surgical Oncology [facility] Surgical Oncology 03/11/25
--- OUTSIDE RECORDS SUMMARY | 2025-05-03 11:45 | XMS_ITS | Encounter Summary ---
Author Organization [employer] Address [address] [place] [address] Care Team Providers Care Aircraft Inspection Record Clerk Name Role Phone Emilie Davis MD Primary Care Provider [phone] Morales Echavarria Unavailable Unavailable August Unavailable Fred Castanon Unavailable Ele Mar MD Unavailable [phone] Reason for Visit * Reason Onset Date Comments Med Refill 04/22/2024 Encounter Details Date Type Department Care Team (Late st Contact Info) Description 04/22/2024 Telephone [facility] [address] [place] [address] Emilie Davis MD [address] [place] [address] Med Refill Social History Tobacco Use Types [...] 200 MG/5ML suspension To be sent to: [facility] - [place], [place] - [address] documented in this encounter Plan of Treatment Upcoming Encounters Date Type Department Care Team (Late st Contact Info) Description 06/04/2025 3:00 PM EST Office Visit [facility] [address] [place] [address] Merissa Donis, OD [address] [place] [address] 06/14/2025 9:00 AM EST Nutrition [facility] DIABETES/NUTRITION [address] [place] [address] Raina Renee, ZEENAT [address] [place] [address] 06/16/2025 9:30 AM EST Office Visit [facility] [address] [place] [address] Emilie Davis MD [address] [place] [address] documented as of this encounter Visit Diagnoses Not on filedocumented in this encounter Additional Health Concerns Assessment Noted Time PHQ-9 Depression Total Score: 3 04/30/20 23 9:17 AM EST documented as of this encounter Care Teams Aircraft Inspection Record Clerk Relationship Specialty Start Date End Date Emilie Davis MD [address] [place] [address] PCP - General Family Medicine 05/13/18 Morales Echavarria FNP [address] [place] [address] Nurse Practitioner Family Medicine 04/16/23 03/10/25 Aida Orozco [address] [place] [address] Gastroenterology 05/26/24 Fred Castanon [address] [place] [address] Cardiology 07/21/24 Ele Mar MD [address] [place] [address] Hematology and Oncology 02/22/25 Marina Brown MD Rheumatology 02/10/25 Costa Miller MD Attending Hepatobiliary & Pancreatic Surgeon Division of Surgical Oncology [facility] Surgical Oncology 03/11/25 documented as of this encounter
--- OUTSIDE RECORDS SUMMARY | 2025-05-03 11:45 | XMS_ITS | Encounter Summary ---
Author Organization [employer] Address [address] [facility] 7t [place] [address] Care Team Providers Care Supervisor Trust Accounts Name Role Phone Emilie Davis MD Primary Care Provider [phone] Morales Echavarria HALL PORTER Unavailable Unavailable August Unavailable Fred Castanon Unavailable Ele Mar MD Unavailable [phone] Encounter Details Date Type Department Care Team (Late Contact Info) Description 04/22/2022 Orders Only [facility] [address] [place], [place] [phone] Emilie Davis MD [address] [place], [place] [phone] HSV (herpes simplex virus) anogenital infection (Primary [...] Description 06/04/2025 3:00 PM EST Office Visit [facility] OPTOMETRY [address] [place], [place] [phone] GagandeepArthurn, OD [address] [place], [place] [phone] 06/14/2025 9:00 AM EST Nutrition [facility] DIABETES/NUTRITION [address] [place] [address] [place] [address] 06/16/2025 9:30 AM EST Office Visit [facility] MED[facility]INE [address] [place] [address] Emilie Davis MD [address] [place] [address] documented as of this encounter Visit Diagnoses Diagnosis HSV (herpes simplex virus) anogenital infection- Primary Herpes simplex without mention of complication documented in this encounter Care Teams Supervisor Trust Accounts Relationship Specialty Start Date End Date Emilie Davis MD [address] [place] [address] PCP - General Family Medicine 05/13/18 Morales Echavarria FNP [address] [place] [address] Nurse Practitioner Family Medicine 04/16/23 03/10/25August [address] [place] [address] Gastroenterology 05/26/24 Fred Castanon [address] [place] [address] Cardiology 07/21/24 Ele Mar MD [address] [place] [address] Hematology and Oncology 02/22/25 Marina Brown MD Rheumatology 02/10/25 Costa Miller MD Attending Hepatobiliary & Pancreatic Surgeon Division of Surgical Oncology [facility] Surgical Oncology 03/11/25 documented as of this encounter
--- OUTSIDE RECORDS SUMMARY | 2025-05-03 11:45 | XMS_ITS | Encounter Summary ---
Author Organization [employer] Address [address] [facility] 7[address] [place] [address] Care Team Providers Care Final Assembly And Packing Supervisor Name Role Phone Emilie Davis MD Primary Care Provider [phone] Morales Echavarria Unavailable Unavailable August Unavailable Fred Castanon Unavailable Ele Mar MD Unavailable [phone] Reason for Visit * Reason Comments Med Refill Encounter Details Date Type Department Care Team (Late st Contact Info) Description 06/27/2022 Refill [facility] [address] [place] [address] Emilie Davis MD [address] [place], [place] [phone] Social History Tobacco Use Types Packs/Day Years [...] EST Office Visit [facility] [address] [place], [place] [phone] Gagandeep, Merissa, OD [address] [place] [address] 06/14/2025 9:00 AM EST Nutrition [facility] [address] [place] [phone] Raina Renee, ZEENAT [address] [place] [address] 06/16/2025 9:30 AM EST Office Visit [facility] [address] [place] [address] Emilie Davis MD [address] [place] [address] documented as of this encounter Visit Diagnoses Not on filedocumented in this encounter Care Teams Final Assembly And Packing Supervisor Relationship Specialty Start Date End Date Emilie Davis MD [address] [place] [phone] PCP - General Family Medicine 05/13/18 Morales Echavarria FNP [address] [place] [address] Nurse Practitioner Family Medicine 04/16/23 03/10/25OrozcoAugust [address] [place] [address] Gastroenterology 05/26/24 Fred Castanon [address] [place] [address] Cardiology 07/21/24 Ele Mar MD [address] [place] [address] Hematology and Oncology 02/22/25 Marina Brown MD Rheumatology 02/10/25 Costa Miller MD Attending Hepatobiliary & Pancreatic Surgeon Division of Surgical Oncology [facility] Surgical Oncology 03/11/25 documented as of this encounter
--- OUTSIDE RECORDS SUMMARY | 2025-05-03 11:45 | XMS_ITS | Encounter Summary ---
Author Organization [employer] Address [address] [facility] [address] [place] [address] Care Team Providers Care Scaler Name Role Phone Emilie Davis MD Primary Care Provider [phone] Morales Echavarria Unavailable Unavailable August Unavailable Fred Castanon Unavailable Ele Mar MD Unavailable [phone] Encounter Details Date Type Department Care Team (Late Contact Info) Description 05/27/2022 Abstract [facility] [address] [place] [address] Emilie Davsi MD [address] [place] [address] Social History Tobacco Use Types Packs/Day Years [...] Office Visit [facility] OPT[facility] [address] [place], [place] [phone] GagandeepMerissa santos, OD [address] [place] [address] 06/14/2025 9:00 AM EST Nutrition [facility]NUTRITION [address] [place] [address] Raina Renee, ZEENAT [address] [place] [address] 06/16/2025 9:30 AM EST Office Visit [facility] [address] [place] [address] Emilie Davis MD [address] [place] [address] documented as of this encounter Procedures Procedure [...] ORDERABLES F inal Result Performing Organization Address City/[facility]/ZIP Co de Phone Number [facility] [address] [place] [address] [phone] documented in this encounter Visit Diagnoses Not on filedocumented in this encounter Care Teams Scaler Relationship Specialty Start Date End Date Emilie Davis MD Gena [place], [place] [phone] PCP - General Family Medicine 05/13/18 Morales Echavarria FNP [address] [place] [phone] Nurse Practitioner Family Medicine 04/16/23 03/10/25 Aida Orozco [address] [place] [address] Gastroenterology 05/26/24 Fred Castanon [address] [place] [address] Cardiology 07/21/24 Ele Mar MD [address] [place] [address] Hematology and Oncology 02/22/25 Marina Brown MD Rheumatology 02/10/25 Costa Miller MD Attending Hepatobiliary & Pancreatic Surgeon Division of Surgical Oncology [facility] Surgical Oncology 03/11/25 documented as of this encounter
--- OUTSIDE RECORDS SUMMARY | 2025-05-03 11:45 | XMS_ITS | Clinical Summary ---
Author Organization [facility] Address [address] [place] [address] Phone Care Team Providers Care Barrel Dedenting Machine Operator Name Role Phone Unavailable Primary Care Provider Unavailabl e Encounters Date Type Department Care Team Description 03/04/2025 3:00 PM EDT - 03/04/2025 11:59 PM EDT Hospital Encounter [facility] PET Scan [address] [place] [address] Adenocarcinoma of pancreas (CMS/HCC V24, [...] Signed Date: 03/05/2025 03:48 ET Workstation ID: [id number] Transcribed By: Self Edit Transcribed Date: 03/05/2025 [...] Signed Date: 03/05/2025 03:48 ET Workstation ID: [id number] Transcribed By: Self Edit Transcribed Date: 03/05/2025 03:19 ET Ele Mar MD IMG NM PROCEDURES Final Result from Last 3 Months Insurance [employer]
--- NOTE | 2025-05-03 15:19 | MHC.AMNUTRGE ---
Intake Visit Reasons: Initial Oncology Nutrition Visit Allergies black pepper Allergy (Severe, Verified 05/19/25 09:08) Anaphylaxis Penicillins (PENICILLINS) Allergy (Intermediate, Verified 05/19/25 09:08) HIVES,SWELLING sumatriptan (SUMATRIPTAN) Adverse Reaction (Severe, Verified 05/19/25 09:08) PT STATES HEART ATTACK Nutrition Presentation Details: Met with patient and CHW Christopher who also provided Icelandic interpretation. Pt reports they lost about 20# unintentionally since February. Was provided with [employer] market vouches $20 and oral nutrition supplement coupons. Managing appetite fairly well. Drinks lots of water, likes coffee Drinks prune juice at night to promote BM. Eats a lot of fruit fresh and blended. Is currently experiencing mouth and lip sores but is getting treatment for them. Has been drinking ensure for at least 3 years. Reason for consult: other (Low appetite, weight loss) Unstable SDH: Reports use of SNAP (HIP education provided) GI symptoms: reports constipation and other (gas) Food allergies/aversions: No Diet Assmnt Details: PO intake may not be meeting nutrient needs. Pt will continue ensure shakes. Dietary counseling: other (high protein, small frequent meals) Lifestyle Family support: Yes BS Monitoring Most Recent Diabetes Results: Creatinine, (0.5-1.4) 0.65 mg/dL 06/07/25 BUN, (9-16) 19 mg/dL H 06/07/25 Sodium, (135-145) 139 mmol/L 06/07/25 Potassium, (3.3-5.1) 4.0 mmol/L 06/07/25 Chloride, (96-108) 106 mmol/L 06/07/25 Carbon Dioxide, (22-29) 25 mmol/L 06/07/25 Calcium, (8.4-10.2) 9.7 mg/dL 06/07/25 AST, (5-31) 33 U/L H 06/07/25 ALT, (0-31) 47 U/L H 06/07/25 Total Protein, (6.5-8.0) 7.7 g/dL 06/07/25 Albumin, (3.5-5.0) 4.3 g/dL 06/07/25 Support Current oral diet supplements: Ensure (clear) Assessment Nutrition recommendation: initiate supplement (try ensure clear) and RD nutrition education Focused findings Nutrition-focused findings: taste alterations, loss of appetite, muscle wasting and underweight Nutrition Needs Calculation Weight: 95 lb (43 kg) Estimated kcal needs (kcal/day): 1,500 (30-35 kcal/kg) Estimated protein needs (gm/day): 65 (1.5 gm/kg) Diagnosis Nutrition problem #1: underweight, inadequate energy intake and unintended weight loss As related to (etiology) #1: aversion to food/beverage, change in taste, decreased appetite, diagnosis and increased PRO needs As evidenced by (sign/symptom) #1: oral lesions=poor intake, poor PO intake, knowledge deficit of diet, low BMI, weight loss and no prior educ - nutri rec Monitoring/Goals Nutrition problem monitoring: total energy intake, level of knowledge/skill, total PRO intake, weight and oral fluids Outcome progress: verbalized understanding Learning/Education Readiness to learn: excellent Stages of change: action Educational materials provided: Yes (Icelandic snack guide and high kcal/protein edu) Date of nutrition screenin05/03/25 Follow up Follow-up frequency: monthly Time Outcome assessment time: 60 minutes [facility] Medical History Pancreatic adenocarcinoma Elevated LFTs Pancreatic mass Acute pancreatitis Pancreatic mass Upper abdominal pain Erosive esophagitis Abdominal pain Sleep difficulties Vomiting LEE (dyspnea on exertion) Arthritis Occipital neuralgia of left side New onset headache Diverticulosis of colon Chronic, continuous use of opioids Chronic GERD Palpitations Hypotension History of palpitations Dysphagia Disc degeneration, lumbar Spondylosis of lumbar spine Depression Past heart attack Hyperlipemia Erosive osteoarthritis of hands, bilateral GERD (gastroesophageal reflux disease) Hypertension Surgical History History of cholecystectomy Hx of colonoscopy History of esophagogastroduodenoscopy (EGD) H/O bilateral mastectomy H/O: hysterectomy Family History Mother Hypertension Breast cancer Maternal Grandmother Myocardial infarct Skin cancer Sister Heart problem Breast cancer Family/Other Esophageal cancer Social History Household Members: Children Housing: Apartment Are you a primary child care assistant to a significant other at home: No Do you presently have visiting nurse or other home services: No Alcohol intake: never Patient Tobacco Use Status: Former Tobacco user Second Hand Smoke Exposure: No Substance Use Type: Marijuana service: No Review of Systems GI Reports constipation Assessment & Plan Assessment & Plan (1) Abnormal weight loss: Code(s): R63.4 - Abnormal weight loss Category: Medical Plan: 1. small frequent high calorie high protein meals 2. oral care regimen 3. trial ensure clear 4. MD can consider pancreatic enzymes PRN (2) Moderate protein-calorie malnutrition: Code(s): E44.0 - Moderate protein-calorie malnutrition Category: Medical Plan: 1. small frequent high calorie high protein meals 2. oral care regimen 3. trial ensure clear 4. MD can consider pancreatic enzymes PRN Plan 1. small frequent high calorie high protein meals 2. oral care regimen 3. trial ensure clear 4. MD can consider pancreatic enzymes PRN Coding Level of Care Code Nutr Indiv Intake (11203) Diagnoses Abnormal weight loss R63.4 Moderate protein-calorie malnutrition E44.0
== END 2025-05-03 10:39 | disposition home or self-care (01) ==
LOC: HO.HMCCN 09:55
PROVIDERS: PCP Family Medicine; Visit Provider Dietitian, Registered
DX: R63.4 Abnormal weight loss (principal); E44.0 Moderate protein-calorie malnutrition

== ENCOUNTER → 2025-05-03 09:55 | Outpatient (BNVA) | payer OTHER, SELFPAY | PROVIDERS: PCP Family Medicine; Visit Provider Dietitian, Registered | DX: R63.4 Abnormal weight loss (principal); Z68.1 Body mass index [BMI] 19.9 or less, adult; E44.0 Moderate protein-calorie malnutrition | CPT/HCPCS: 97802 ==